=== PATIENT | female | born 1995 | race Caucasian/White ===

== ENCOUNTER → 2017-10-26 15:10 | Outpatient (CLI) | payer BC, SELFPAY ==
--- NOTE | 2017-10-26 15:13 | US_ITS ---
STUDY: THYROID ULTRASOUND REASON FOR EXAM: Female, 22 years old. Nodule TECHNIQUE: Ultrasound evaluation of the thyroid was performed with real-time and static cloud-scale imaging. COMPARISON: None. FINDINGS: RIGHT LOBE: The right lobe of the thyroid gland measures 3.9 x 1.4 x 1.2 cm. There is a homogeneous echotexture. There is a 2 mm colloid cyst. LEFT LOBE: The left lobe of the thyroid gland measures 4.2 x 1.4 x 1.2 cm. There is a homogeneous echotexture. There are no demonstrated solid, cystic or complex lesions. ISTHMUS: The isthmus measures 2 mm . The regional lymph nodes are normal. US/Thyroid IMPRESSION: Within normal limits. Electronically Signed: Chung Yost MD at 22:13 EDT , Service support ,
== END ==
PROVIDERS: Family Provider Family Medicine; PCP Family Medicine; Visit Provider Family Medicine
DX: E04.1 Nontoxic single thyroid nodule (principal)
CPT/HCPCS: 76536

== ENCOUNTER → 2018-01-10 14:11 | Outpatient (CLI) | payer BC, SELFPAY ==
[2018-01-10 16:04] LABS: Hemoglobin A1c 4.9 % (4.2-6.3)
[2018-01-10 16:09] LABS: hCG Titer Quant., Serum 44 mIU/mL (<9 non-preg)
[2018-01-10 22:06] LABS: Follicle Stimulating Hormone 3.9 mIU/mL; Free T3 3.6 pg/mL (2.18-3.98); Glucose 84 mg/dL (74-106); Luteinizing Hormone 2.4 mIU/mL; Prolactin 10.3 ng/mL; T4 Free Direct 0.87 ng/dL (0.76-1.46); Thyroid Stim Hormone (TSH) 0.67 uIU/mL (0.358-3.74)
== END ==
PROVIDERS: Visit Provider Obstetrics & Gynecology
DX: N92.5 Other specified irregular menstruation (principal)
CPT/HCPCS: 36415; 82947; 83001; 83002; 83036; 84146; 84439; 84443; 84481; 84702

== ENCOUNTER → 2018-01-12 15:49 | Outpatient (CLI) | payer BC, SELFPAY ==
[2018-01-12 18:08] LABS: hCG Titer Quant., Serum 51 mIU/mL (<9 non-preg)
== END ==
PROVIDERS: Visit Provider Obstetrics & Gynecology
DX: N91.2 Amenorrhea, unspecified (principal)
CPT/HCPCS: 36415; 84702

== ENCOUNTER → 2018-01-15 13:19 | Outpatient (CLI) | payer BC, SELFPAY ==
[2018-01-15 15:10] LABS: hCG Titer Quant., Serum 15 mIU/mL (<9 non-preg)
== END ==
PROVIDERS: Visit Provider Obstetrics & Gynecology
DX: N91.2 Amenorrhea, unspecified (principal)
CPT/HCPCS: 36415; 84702

== ENCOUNTER → 2018-10-17 | Outpatient (CLI) | payer BC, SELFPAY ==
[2018-10-25 12:37] LABS: HPV HC, High Risk Negative (Negative)
[2018-10-25 12:38] LABS: HPV Reflexed? YES, CHARGE PATIENT
== END | disposition home or self-care (01) ==
PROVIDERS: Family Provider Family Medicine; PCP Family Medicine; Visit Provider Obstetrics & Gynecology
DX: Z12.4 Encounter for screening for malignant neoplasm of cervix (principal)
CPT/HCPCS: 87624; 88175; G0145

== ENCOUNTER 2020-02-06 18:14 | Emergency (ER) | payer BC, SELFPAY ==
[2020-02-06 18:14] VITALS: BP 112/74; PULSE 72; RESP 14; TEMP 36.7; O2SAT 99; BMI 25.8
--- NOTE | 2020-02-06 19:35 | CT_ITS ---
STUDY: CT ABDOMEN AND PELVIS WITH CONTRAST REASON FOR EXAM: Female, 24 years old. Unexplained weight loss since OCTOBER. Recent diarrhea. RADIATION DOSAGE (If Supplied By Facility): CTDIvol = ( 10.31 ) mGy, DLP = ( 647.47 ) mGycm TECHNIQUE: Transaxial images were obtained from the dome of the diaphragm to the symphysis pubis with oral contrast. Oral and amp; IV Breeza and amp; 100mL Isovue-300 was administered. Sagittal and coronal images were reconstructed. Individualized dose optimization techniques were used for this CT. COMPARISON: None. FINDINGS: The visualized lung bases are unremarkable. The visualized portions of the heart are within normal limits. Normal liver. Normal gallbladder and extrahepatic biliary system. Normal spleen. Normal pancreas. Normal bilateral adrenal glands. Normal right kidney. Normal left kidney. Normal visualized stomach. Normal small intestine. Normal colon. The appendix is visualized and appears normal. Normal abdominal aorta. Normal inferior vena cava. Normal retroperitoneum. Normal urinary bladder. Normal uterus and left adnexa. There is a 1.8 x 1.2 x 1.8 cm cyst in the right ovary. No pelvic lymphadenopathy. No free air or free fluid is seen within the peritoneal cavity. Normal abdominal wall. Normal osseous structures. CT/Abdomen/Pelvis WITH Contrast IMPRESSION: Dominant follicle versus small cyst in the right ovary. The study is otherwise unremarkable. Electronically Signed: Jerome Navas DO at 21:25 EDT Tel [phone], Service support ,
[2020-02-06 19:48] LABS: Absolute Lymphocyte Count 2.75 X10^3/uL (0.83-4.51); Absolute Neutrophil Count 3.6 X10^3/uL (2.0-7.7); Basophil# 0.03 X10^3/uL; Basophil% 0.4 % (0-1); Eosinophils% 1.4 % (0-5); Hematocrit 39.7 % (37-47); Hemoglobin 12.7 g/dL (12.0-15.0); Lymphocyte # 2.75 X10^3/ul (4.0); Mean Corpuscular Hgb 28.4 pg (27.0-32.0); Mean Corpuscular Volume 88.8 fL (81-99); Mean Platelet Vol. 9.8 fl (6.2-12.0); Monocyte# 0.54 X10^3/uL; Monocyte% 7.6 % (0-10); NRBC Flagged by Analyzer 0 % (0-5); Neutrophil # 3.63 X10^3/uL (2.7-7.7); Neutrophil % 51.5 % (47-70); Platelet Count 287 K/mm3 (150-450); RBC Distribution Width CV 13.6 % (11.6-14.6); RBC Distribution Width SD 44.2 fl (35.1-43.9); Red Blood Count 4.47 M/mm3 (4.2-5.4); White Blood Count 7.1 K/mm3 (4.4-11.0)
[2020-02-06 19:56] LABS: Internal QC Validated? YES +Cl - CLEAR BKGD; Pregnancy, Serum, hCG Quali. NEGATIVE Negative
[2020-02-06 20:07] LABS: AST(SGOT) 6 U/L (15-37); Alanine Aminotransfer ALT/SGPT 12 U/L (13-56); Albumin, Serum 3.9 g/dL (3.2-5.0); Alkaline Phosphatase 86 U/L (45-117); Anion Gap 4 (5-15); BUN 8 mg/dL (7-18); BUN/Creat Ratio 13.1 RATIO (10-20); Bilirubin, Direct 0.13 mg/dL (0.00-0.30); Calcium,Total 8.8 mg/dL (8.5-10.1); Chloride 108 mmol/L (98-107); Creatinine, Serum 0.61 mg/dL (0.55-1.02); EST Glomerular Filtration Rate 130 mL/min (>60); Est Glom Filt Rate - Afr Amer 157 mL/min (>60); Estimated Creatinine Clearance 114.41 ml/min; Globulin 3.1 g/dL (2.2-4.2); Glucose 88 mg/dL (74-106); Potassium 3.4 mmol/L (3.5-5.1); Sodium Level 140 mmol/L (136-145)
[2020-02-06] MEDS: 0.9% Normal Saline 1,000 ML 150 ML IV (20:26)
[2020-02-06 20:35] LABS: Mucous, Urine 0 SEEN /hpf (<or=2+); Squamous Epithelial Cells - UA 0 SEEN /hpf (5-10); White Blood Cells 0 SEEN /hpf (0-5)
[2020-02-06 20:47] LABS: Color, Urine Yellow (Yellow); Glucose, Dipstick Normal (Normal); Ketone-Dipstick Negative (Negative); Leukocyte Esterase-Dipstick Negative /ul (Negative); Nitrite-Dipstick Negative (Negative); Occult Blood-Urine 50 /ul (Negative); Protein-Dipstick Negative (Negative); Specific Gravity, Urine 1.015 (1.002-1.030); Urine Bilirubin Dipstick Negative (Negative); Urine Clarity Clear (Clear); Urine Urobilinogen Normal (Normal); Urine pH 6.5 (5.0 - 8.0)
[2020-02-06 21:11] LABS: Bacteria RARE /hpf (None Seen); Red Blood Cells-Urine 0-5 SEEN /hpf (0-5)
[2020-02-06 21:32] VITALS: BP 94/69; PULSE 66; RESP 16; O2SAT 100
--- NOTE | 2020-02-06 21:51 | ED.DCSUM_ITS ---
History of Present Illness Chief Complaint: Nausea/Vomiting/Diarrhea Detail of Chief Complaint: Diarrhea and weight loss Informant: Patient Onset: Month(s) Narrative: Patient presents with diarrhea, nausea, and weight loss. She states symptoms hortencia cabrera started in October and she is lost 30 pounds since that time. She states anytime she eats or drinks anything it goes straight through her with diarrhea. She has not had fever or chills. She does not have significant abdominal pain. She was seen by her PCP and started on an antacid. When this did not help they advised her she should come to the emergency room for further testing. She darnell es being on recent antibiotics. - Past Medical History (1) Anxiety and depression Status: Chronic Past Medical History - Allergies and Home Meds Allergies/Adverse Reactions: Allergies azithromycin [From Zithromax] Allergy (Verified 02/06/20 18:20) JOHN VIJI'S SYNDROME venlafaxine Allergy (Verified 02/06/20 18:20) NEEDS FOLLOW-UP Primary Care Physician: Rachel Gale,Out of [Primary Care Provider] - Prior records reviewed: Yes Smoking Status: Current every day smoker Review of Systems General: Denies: Chills, Fever Eyes: Denies: Visual changes - bilaterally ENT: Denies: Bilateral ear pain Cardiovascular: Denies: Chest pain Respiratory: Denies: Dyspnea, Cough Gastrointestinal: Reports: Nausea, Diarrhea. Denies: Abdominal pain, Vomiting Genitourinary: Denies: Dysuria Musculoskeletal: Denies: Myalgias, Arthralgias, Extremity Pain Skin: Denies: Rash Neurological: Denies: Headache Hematologic: Denies: Easy bruising, Easy bleeding Allergy: Denies: Uticaria Physical Exam Vital Signs/Narrative: Vital Signs Temp Pulse Resp BP Pulse Ox 02/06/20 21:32 66 16 94/69 100 02/06/20 18:14 98.0 F 72 14 112/74 99 Inital Vital Signs reviewed: Yes General: Well nourished, Well developed Head: Normocephalic ENT: Moist mucous membranes Neck: Supple Cardiovascular: Regular rate, Regular rhythm Respiratory: No distress, CTA bilaterally Abdomen: Soft, Nontender, Normal bowel sounds Extremities: Nontender Skin: Normal color Neurological: Alert, Oriented x3 Psychological: Normal affect Diagnostic/Tx/Re-eval Impressions Abdomen/Pelvis CT 02/06/20 19:35 IMPRESSION: Dominant follicle versus small cyst in the right ovary. The study is otherwise unremarkable. Electronically Signed: Jerome Navas DO at 21:25 EDT Tel [phone], Service support , 02/06/20 19:35 Abdomen/Pelvis WITH Contrast [CT] Stat Laboratory Results 02/06/20 02/06/20 02/06/20 19:15 19:15 19:15 WBC 7.1 RBC 4.47 Hgb 12.7 Hct 39.7 MCV 88.8 MCH 28.4 MCHC 32.0 RDW Std Deviation 44.2 H RDW Coeff of Lizbet 13.6 Plt Count 287 MPV 9.8 Immature Gran % (Auto) 0.100 Neut % (Auto) 51.5 Lymph % (Auto) 39.0 [place] % (Auto) 7.6 Eos % (Auto) 1.4 Baso % (Auto) 0.4 Absolute Neuts (auto) 3.6 Absolute Lymphs (auto) 2.75 Nucleated RBC % 0 Sodium 140 Potassium 3.4 L Chloride 108 H Carbon Dioxide 28.0 Anion Gap 4 L BUN 8 Creatinine 0.61 Estim Creat Clear Calc 114.41 Est GFR (MDRD) Af Amer 157 Est GFR (MDRD) Non-Af 130 BUN/Creatinine Ratio 13.1 Glucose 88 Calcium 8.8 Total Bilirubin 0.30 Direct Bilirubin 0.13 AST 6 L ALT 12 L Alkaline Phosphatase 86 Total Protein 7.0 Albumin 3.9 Globulin 3.1 Serum , Qual NEGATIVE Urine Color Urine Clarity Urine pH Ur Specific Omar Urine Protein Urine Glucose (UA) Urine Ketones Urine Occult Blood Urine Nitrite Urine Bilirubin Urine Urobilinogen Ur Leukocyte Esterase Urine RBC Urine WBC Ur Squamous Epith Cells Urine Bacteria Urine Mucus 02/06/20 20:15 WBC RBC Hgb Hct MCV MCH MCHC RDW Std Deviation RDW Coeff of Lizbet Plt Count MPV Immature Gran % (Auto) Neut % (Auto) Lymph % (Auto) [place] % (Auto) Eos % (Auto) Baso % (Auto) Absolute Neuts (auto) Absolute Lymphs (auto) Nucleated RBC % Sodium Potassium Chloride Carbon Dioxide Anion Gap BUN Creatinine Estim Creat Clear Calc Est GFR (MDRD) Af Amer Est GFR (MDRD) Non-Af BUN/Creatinine Ratio Glucose Calcium Total Bilirubin Direct Bilirubin AST ALT Alkaline Phosphatase Total Protein Albumin Globulin Serum , Qual Urine Color Yellow Urine Clarity Clear Urine pH 6.5 Ur Specific Omar 1.015 Urine Protein Negative Urine Glucose (UA) Normal Urine Ketones Negative Urine Occult Blood 50 H Urine Nitrite Negative Urine Bilirubin Negative Urine Urobilinogen Normal Ur Leukocyte Esterase Negative Urine RBC 0-5 SEEN Urine WBC 0 SEEN Ur Squamous Epith Cells 0 SEEN Urine Bacteria RARE Urine Mucus 0 SEEN - Medical Decision Making Patient was given IV fluids here. On repeat evaluation she is resting comfortably. Test results are discussed with her. She has not had diarrhea while here but an order for stool studies will be sent with her. She will be given 3 days of potassium replacement at home. She is to follow with her doctor for further testing and evaluation. ED Disposition - Plan for ED Patient: Disposition: Home or Assisted Living Diagnosis: Diarrhea Instructions: ED Vomiting and Diarrhea Nonspecific Adult Prescriptions: Potassium Chloride [K-Dur] 20 meq PO BID #6 tab Transmission Status: Received by [id number] Referrals: [facility] Doctor,Out of [Primary Care Provider] -
== END 2020-02-06 22:05 | disposition home or self-care (01) ==
PROVIDERS: Emergency Provider Emergency Medicine; PCP Physician Assistant
DX: R19.7 Diarrhea, unspecified (principal); R11.2 Nausea with vomiting, unspecified; F32.9 Major depressive disorder, single episode, unspecified; F41.9 Anxiety disorder, unspecified; F17.200 Nicotine dependence, unspecified, uncomplicated; Z79.899 Other long term (current) drug therapy
CPT/HCPCS: 74177; 80048; 80076; 81001; 84703; 85025; 96360; 96361; 99283; J7030; Q9967; A4216

== ENCOUNTER → 2020-02-07 | Outpatient (CLI) | payer BC, SELFPAY ==
[2020-02-06 18:14] VITALS: BMI 25.8
== END | disposition home or self-care (01) ==
PROVIDERS: PCP Physician Assistant; Referring Provider Emergency Medicine; Visit Provider Emergency Medicine
DX: R19.7 Diarrhea, unspecified (principal)
CPT/HCPCS: 87493; 87506

== ENCOUNTER → 2020-04-29 11:38 | Outpatient (CLI) | payer BC, SELFPAY ==
--- NOTE | 2020-04-29 11:55 | RAD_ITS ---
STUDY: HYSTEROSALPINGOGRAM. REASON FOR EXAM: Female, 24 years old. Infertility FLUOROSCOPY TIME (if supplied): ( 12 seconds ) minutes/seconds. 3 images were obtained. TECHNIQUE: A hysterosalpingogram was performed by the health assessment and treatment teacher. Imaging was obtained. COMPARISON: None. FINDINGS: The fallopian tubes are widely patent with the spur bilaterally. The uterus is unremarkable. RAD/Salpingogram IMPRESSION: Normal hysterosalpingogram. Electronically Signed: Mauro Garza, at 12:23 EDT , Service support ,
--- NOTE | 2020-04-29 12:54 | PCM.OPRPT ---
Report of Operation Date of Procedure: 04/29/20 Pre-Operative Diagnosis: infertility Post-Operative Diagnosis: same Surgery/Procedure Performed:: Hysterosalpingogram Description of Surgical Findings:: normal cervix and vagina manager wealth management: None Type of Anesthesia:: None Specimen's removed: none Drains: none Estimated Blood Loss (mL): none Fluids Replaced: none Description of Procedure: The patient was placed on the radiology table in the dorsal lithotomy position. A speculum was placed in the vagina and the cervix cleaned with betadine. The HSG catheter was placed and the balloon inflated without difficulty. The radioopaque dye was injected slowly. The radiologist obtained the images. The balloon was inflated to allow fill of the uterine cavity. When Dr. Garza deemed the procedure completed the instruments were removed and the vaginal sweep was completed by me. Start time: 1159 am End time :1202 pm Grafts/Implants Used: none - Complications none
== END ==
PROVIDERS: PCP Physician Assistant; Referring Provider Obstetrics & Gynecology; Visit Provider Obstetrics & Gynecology
DX: N97.9 Female infertility, unspecified (principal)
CPT/HCPCS: 58340; 74740; Q9967

== ENCOUNTER 2021-08-26 07:20 | Day surgery (SDC) | payer OTHER, BC, SELFPAY ==
--- NOTE | 2021-08-17 16:57 | PCM.HP.BLA ---
History and Physical Date of Admission: 08/26/21 HPI: The patient is a 25 year old female presenting for pre-operative visit. She is scheduled for Hysteroscopy D&C, possible polyp resection, for AUB, endometrial polyp on 08/19/21. Procedure discussed along with risks, benefits and complications. Other alternatives discussed for management. Consent form signed? Yes. ? ? PAST MEDICAL HISTORY PAST MEDICAL HISTORY Diagnosis Date ? Blurring of vision 09/13/2011 ? Cellulitis and abscess of toe, unspecified 03/17/2011 ? Dizziness 05/10/2011 ? History of depression 11/14/2018 ? Hypoglycemia ? ? Menarche 2009 ? Age 13 ? ? PAST SURGICAL HISTORY PAST SURGICAL HISTORY Procedure Laterality Date ? ADENOIDECTOMY UNDER AGE 14 ? ? ? EXCISION BENIGN LESIONS,TRUNK, ? ? ? Lipoma- groin ? REMOVAL OF TONSILS,<14 Y/O ? CURRENT MEDICATIONS Current Outpatient Medications Medication Sig Dispense Refill ? ALPRAZolam (XANAX) 0.5 mg tablet Take 0.5 mg by mouth three times daily as needed. ? ? ? letrozole (FEMARA) 2.5 mg tablet Take 2 tablets by mouth once daily. (Patient not taking: Reported on 07/28/2021 ) 10 tablet 2 ? PNV no.95/ferrous fum/folic ac ( ORAL) Take by mouth. ? ? ? No current facility-administered medications for this visit. ? ? ALLERGIES: Effexor [Venlafaxine] and Zithromax [Azithromycin] ? PERSONAL HISTORY: SOCIAL HISTORY Social History ? Tobacco Use ? Smoking status: Never Smoker ? Smokeless tobacco: Never Used Substance Use Topics ? Alcohol use: No ? Drug use: No ? FAMILY HISTORY: FAMILY HISTORY FAMILY HISTORY Problem Relation Age of Onset ? Diabetes Mother ? ? type 1 ? Kidney Disease Mother ? ? Diabetes Maternal Grandmother ? ? type 1 ? Alcohol/Drug Father ? ? other (Bipolar) Father ? ? Psychiatry Brother ? ? No Known Problems Brother ? ? No Known Problems Brother ? ? Skin Cancer Maternal Grandfather ? ? No Known Problems Paternal Grandmother ? ? Alzheimer's Disease Paternal Grandfather ? ? Diabetes Other ? ? Maternal Side ? ? REVIEW OF SYMPTOMS: GENERAL: denies fevers or chills ENDOCRINOLOGY: has not been on steroids Cardiology : denies palpitations or chest pain Respiratory: denies SOB or cough Hematology: denies history of prolonged bleeding or easy bruising or VTE Allergy: Denies history of personal or family history of allergy to anesthesia ? PHYSICAL EXAMINATION: ? VITALS: Last menstrual period 07/15/2021. ? GENERAL: The patient is well nourished, well hydrated in no acute distress. , The patient is oriented to time, place, and person. NECK: Supple. No lynphadenopathy, normal thyroid, no thyromegaly. LUNGS: Clear to auscultation bilaterally. no wheezes, rhonchi or rales HEART: Regular rate and rhythm, Normal heart sounds and No murmurs or gallops ? IMPRESSION: AUB, endometrial polyp, desires ? PLAN: The risks/benefits/alternatives and personal involved for the planned Hysteroscopy w/ D&C and polyp resection were reviewed with the patient. Her questions were answered to her satisfaction and she desires to proceed. Consent was signed. I reviewed with her postop instructions and expectations. ? ? I have reviewed and updated past medical and surgical history, medications and allergies Assessment & Plan Assessment/Plan (1) Abnormal uterine bleeding (AUB): (2) Endometrial polyp:
[2021-08-26] VITALS (8 sets, daily range): BP systolic 92–116; BP diastolic 62–76; PULSE 60–95; RESP 16–18; TEMP 36.2–37.2; O2SAT 95–100; BMI 27.0
--- NOTE | 2021-08-26 | EMB_PTH ---
PATIENT: JOSE EDWARD LOC: [facility] [place] U#:[id number] AGE/SX: 25 ROOM: RE08/26/[address]: Dr. Anna Del Real MD : [id number] BED: DIS: 08/26/2021 SPEC #: [id number] RECD: 08/26/21 12:45 STATUS: FRANCA REKong #: [id number] STEPHEN: 08/26/21 00:[address]: Anna Del Real DEPT: SURGICAL PATHOLOGY RECD BY: Abraham Franco ENTERED: 08/26/21 12:45 SP TYPE: ENDOM BX/C ALBER DR: CHERYL Mendoza Tissues: Endometrium, NOS Procedures: Surgery Specimen Level IV HEADER OPERATION: Hysteroscopy, dilation and curettage PRE-OP DIAGNOSIS: Abnormal uterine bleeding, endometrial polyp TISSUE SUBMITTED: Endometrial curettings MICROSCOPIC DIAGNOSIS Endometrium, curettings: Proliferative endometrium with focal glandular breakdown. Rare strips of benign superficial endocervix and squamous mucosa. AM:tereza 08/27/2021 MICROSCOPIC DESCRIPTION Slides are reviewed. GROSS DESCRIPTION Received in fixative is one container labeled with the patient's name and designated endometrial curettings. The specimen consists of multiple irregular fragments of red-pa soft tissue that in aggregate measure 2 x 2 x <0.1 cm. The specimen is totally submitted in one cassette. / AM:tereza 08/26/2021 TC:5 CPT: 69599
[2021-08-26] MEDS: Lactated Ringers 1,000 ML 15 ML IV (07:55)
[2021-08-26 07:57] LABS: Internal QC Validated? YES +Cl - CLEAR BKGD; Pregnancy, Urine Negative Negative
[2021-08-26] MEDS: Acetaminophen 500 MG Tablet 1000 MG PO (08:02)
[2021-08-26] MEDS: Ketorolac 30 MG/ML Syringe IV (08:02)
--- NOTE | 2021-08-26 08:50 | PCM.DC ---
Discharge Instructions Diet Discharge Diet: No restrictions Activity May resume sexual activity in: 1 week Lifting Restrictions: none Dressing / Incision Call your doctor if your incision/area has: Sudden Increased Bleeding and Foul Smelling Discharge Call your doctor if you observe: Fever of 101 or Higher and Using more than 1 pad per hour (for 2 hrs in a row) Follow Up Care Please Follow Up With: Anna Del Real MD When: Call [phone] with any concerns. You do not need a postop appointment unless you have concerns. Test Results: Test results from this visit will be discussed in further detail at your follow-up appointment, if applicable. Discharge Plan Admission Primary Reason for Your Visit: D&C Attending Provider: Anna Del Real Primary Care Provider: Emma Tello Discharge Orders/Prescriptions Prescriptions: No Action alprazolam [Xanax] 0.5 mg Tablet 0.5 mg PO BID PRN (Reason: Anxiety) RF: 0 Prenatabs FA 29-1 mg Tablet 1 tab PO DAILY RF: 0 Hair, Skin and Nails Advanced 3.3 mg iron-25 mcg Tablet 1 tab PO DAILY RF: 0 Referrals / Follow Up: Emma Tello PA [Primary Care Provider] - Disposition Disposition (needs filled in before D/C Order can be placed): Home, Self Care
[2021-08-26] MEDS: Lidocaine 1% (20 ml mdv) 20 ML Vial (09:02)
--- NOTE | 2021-08-26 09:08 | OP.PCM_ITS ---
Problems Associated Problem List Diagnoses (1) Abnormal uterine bleeding (AUB): (2) Endometrial polyp: Report of Operation Date of Procedure: 08/26/21 Pre-Operative Diagnosis: Abnormal uterine bleeding, endometrial polyp Post-Operative Diagnosis: Same Surgery/Procedure Performed:: Hysteroscopy D&C Description of Surgical Findings:: Lush endometrium. Polypoid appearing lesion on the right side. Both tubal ostia were identified. Normal cervix and vagina Surgeon: Anna Del Real industrial service technician: None Type of Anesthesia: MAC/Supplemental/Local Anesthesiologist: Vinh Person Special Medications: none Specimen's removed: Endometrial curettings Drains: None Estimated Blood Loss (mL): 10 Fluids Replaced: 400 Description of Procedure: The patient was taken to the OR where she was prepped and draped in dorsal lithotomy position. The weighted speculum was placed in the vagina and the anterior lip of the cervix was grasped with a single-tooth tenaculum. A paracervical block was administered with [1% lidocaine with 1- 100,000 epinephrine solution]. The cervix was dilated serially with Hegar dilators. The [5mm] hysteroscope was placed into the uterine cavity and the above findings were noted. Bilateral tubal ostia [were] identified. The hysteroscope was removed. A gentle sharp curettage was done of the uterine cavity. The hysteroscope was returned and there were no other lesions identified. The instruments were removed from the vagina. The specimen was handed off and sent to pathology. All sponge and needle counts were correct. Vaginal sweep was performed by me. The patient was awakened and taken to the recovery room in stable condition. Hysteroscopic ins: 200cc normal saline Hysteroscopic outs:100cc Grafts/Implants Used: none Procedure Start Time: 08:55 Procedure Stop Time: 09:05 Complications None Admit VTE Documentation VTE Present on Admission: No VTE Mechan Device Prophylaxis: SCD's VTE Pharm Prophylaxis ordered?: No Reason prophylaxis not ordered:: Procedure Not Indicated
[2021-08-26] MEDS: Lactated Ringers 1,000 ML 75 ML IV (09:23)
== END 2021-08-26 23:59 | disposition home or self-care (01) ==
LOC: SDC 07:26 → AC 07:35
PROVIDERS: PCP Physician Assistant; Visit Provider Obstetrics & Gynecology
PROC: 0UB98ZZ Excision of Uterus, Via Natural or Artificial Opening Endoscopic (ICD-10-PCS; CPT 58558; principal; 2021-08-26 08:35)
DX: N84.0 Polyp of corpus uteri (principal); F32.A Depression, unspecified; F41.9 Anxiety disorder, unspecified; Z79.899 Other long term (current) drug therapy
CPT/HCPCS: 58558; 00952; 81025; 88305; J7120; J2405

== ENCOUNTER 2022-04-08 17:48 | Emergency (ER) | payer OTHER, BC, SELFPAY ==
[2022-04-08 17:49] VITALS: BP 128/95; PULSE 105; RESP 16; TEMP 36.3; O2SAT 100; BMI 30.7
[2022-04-08 17:52] VITALS: BP 128/95; PULSE 105; RESP 16; TEMP 36.3; O2SAT 100
--- NOTE | 2022-04-08 19:16 | ED.VIS.FEGU ---
HPI HPI - Female History of Present Illness Chief Complaint: Vag Bleeding Detail of Chief Complaint: Passing clots. Informant: patient Pain Pain: Positive for Pelvic Pain Onset: Today Timing: Intermittent Quality: Positive for Cramping Current Severity: Mild Maximum Severity: Mild Bleeding Issue: Positive for Vaginal bleeding and Passing clots; Negative for Passing tissue Onset: Days Context: Gradual Onset Timing: Intermittent Current Severity: Heavy Associated Symptoms Associated Symptoms: Negative for Dysuria, Frequency or Urgency Test: Negative Sexually: Positive for Active Control: No control P: 0 Ab: 1 Narrative Narrative: 26-year-old female G1, P0 Ab1 with having a miscarriage. States she started her last menstrual period Monday 5 days ago. Said it started out normal today she had some cramping and much heavier bleeding with clots. States she is having some cramping. No dysuria. No fever. Took a home test was negative. She has had issues with infertility before. Prior similar symptoms: Yes Recent Illness/Hospitalization: No PFSH PFSH Medical History Abnormal uterine bleeding (AUB) Alcohol use Anxiety Endometrial polyp Heartburn Vapes nicotine containing substance Wears contact lenses Home Medications alprazolam 0.5 mg tablet (Xanax) 0.5 mg PO BID PRN Anxiety 08/20/21 [History Last Taken Unknown] multivitamin,min-ferrous fumarate 3.3 mg-folic 25 mcg-herb tablet (Hair, Skin and Nails Advanced) 1 tab PO DAILY 08/20/21 [History Last Taken Unknown] vits,calcium no.78-iron fumarate-folic acid 29 mg-1 mg tablet (Prenatabs FA) 1 tab PO DAILY 08/20/21 [History Last Taken Unknown] Allergy/AdvReac Type Severity Reaction Status Date / Time azithromycin [From Zithromax] Allergy JOHN Verified 08/20/21 11:32 VIJI'S SYNDROME venlafaxine Allergy NEEDS Verified 08/20/21 11:32 FOLLOW-UP Surgical History History of tonsillectomy and adenoidectomy Hx of lumpectomy Social History Smoking Status: Current every day smoker tobacco type: e-cigarettes ROS ROS ED ROS Narrative Vaginal bleeding. Cramping. Review of Systems ROS Unobtainable: Denies due to encephalopathy Constitutional Constitutional ED: Denies chills or fever(s) Eyes Eyes: Denies blurry vision ENT ENT ED: Denies ear pain Cardiovascular Cardiovascular: Denies chest pain Respiratory/Chest Respiratory/Chest: Denies cough or dyspnea Gastrointestinal Gastrointestinal: Denies abdominal pain, constipation, diarrhea, melena, nausea or vomiting Genitourinary Genitourinary ED: Denies dysuria or hematuria Musculoskeletal Musculoskeletal: Denies arthralgias Integumentary Denies abscess Neurologic Neurologic: Denies headache(s) Psychiatric Psychiatric: Denies anxiety Endocrine Endocrinology: Denies heat intolerance Hematologic/Lymphatic Hematologic/Lymphatic: Denies easy bleeding, easy bruising or lymphadenopathy Allergic/Immunologic Allergic/Immunologic ED: Denies mouth swelling or tongue swelling EXAM Physical Exam Narrative Exam Narrative: 26-year-old female no acute distress. Vital signs stable afebrile. Blood pressure 128/95. H EENT exam normal. Moist Riis membranes. Neck nontender no lymphadenopathy. Lungs clear to auscultation bilaterally. Heart regular rhythm rate about 105 no murmur. Abdomen soft, nontender, nondistended normal bowel sounds no peritoneal signs. Moving all 4 extremities. Calves nontender no edema or cords. Back nontender. Neurologic exam normal. Skin normal. No bruising. Const Vital Signs: 04/08/22 17:49 04/08/22 17:52 04/08/22 20:02 Temperature 97.4 F L 97.4 F L Temperature Source Temporal Temporal Pulse Rate 105 H 105 H Respiratory Rate 16 16 18 Blood Pressure 128/95 H 128/95 H Blood Pressure Mean 106 106 Pulse Ox 100 100 Oxygen Delivery Method Room Air Room Air Room Air 04/08/22 22:05 Temperature Temperature Source Pulse Rate Respiratory Rate 14 Blood Pressure Blood Pressure Mean Pulse Ox Oxygen Delivery Method Room Air Positive well nourished, well developed and obese; Negative for cachectic, contractures or unkempt General Appearance ED: well developed and NAD; Negative for unkempt, cachectic, contractures, odor of alcohol detected or pallor Nutritional Appearance: obese; Negative for cachectic HEENT Reports moist mucous membranes Negative for trauma or tenderness Eyes PERRL and EOMs intact bilaterally General Eye ED: Negative for pale conjunctiva or scleral icterus Neck no lymphadenopathy, supple and no JVD General: Negative for other Thyroid: Negative for tender Lymph Lymphatic: Negative for other Chest Wall inspection of chest normal and palpation of chest normal Chest: Negative for other Resp normal respiratory effort and clear to auscultation bilaterally Effort and Inspection: Negative for pain with movement Auscultation: Negative for rales, rhonchi, wheezes or diminished lung sounds Cardio regular rate, regular rhythm, S1 normal heart sound, no murmurs and no JVD Rate: Negative for bradycardia or tachycardic Rhythm: Negative for abnormal rhythm GI normal to inspection, nondistended, normoactive bowel sounds, soft to palpation, non-tender, non-distended and no masses Auscultation: normoactive bowel sounds Palpation: Negative for tender, guarding or rigid Back/Spine no CVA tenderness General Back: Negative for CVA tenderness Cervical Spine: Negative for cervical spine tenderness Thoracic Spine / Upper Back: Negative for thoracic spinal tenderness Lumbar Spine / Lower Back: Negative for lumbar spinal tenderness Sacrum: Negative for other Extremity normal to inspection and full ROM General Extremety ED: Negative for edema or other findings General Extremity: Negative for edema or other findings Neuro oriented x3 Sensorium / Orientation: alert, oriented to person, oriented to place and oriented to time; Negative for confused, lethargic or stuporous Motor Exam: strength 5/5 throughout Psych mental status grossly normal Appearance: Negative for unkempt Attitude: No agitated Speech: No other Mood & Affect: Negative for depressed, anxious or tearful Skin no rashes or lesions noted and no wounds General Skin Exam: Negative for jaundice or pallor Rashes: No rashes noted Trauma: Negative for other MDM MDM MDM Narrative Medical decision making narrative: 26-year-old with heavy vaginal bleeding. Does not believe she is . test will be obtained. CBC. Treated with IV fluids. Repeat exam patient doing well at 10:20 PM. Pelvic exam done with female nurse present in the room. Small amount of blood in vaginal vault. Dark red. No clots. No discharge. On bimanual exam no pain. No significant tenderness. Uterus did not feel enlarged. Patient be discharged home. Fluids. Tylenol Motrin for pain. Follow-up with her CURATOR OF EDUCATION. Lab Data Attestation: I reviewed the patient's lab results. Lab results narrative: CBC normal white count at 9. H&H of 13.1 and 40. Platelets 300. test negative. Labs: Laboratory Results - last 24 hr 04/08/22 04/08/22 19:32 19:32 WBC 9.0 RBC 4.52 Hgb 13.1 Hct 40.2 MCV 88.9 MCH 29.0 MCHC 32.6 RDW Std Deviation 41.5 RDW Coeff of Lizbet 12.7 Plt Count 300 MPV 9.2 Immature Gran % (Auto) 0.200 Neut % (Auto) 52.8 Lymph % (Auto) 38.4 [place] % (Auto) 6.1 Eos % (Auto) 2.2 Baso % (Auto) 0.3 Absolute Neuts (auto) 4.8 Absolute Lymphs (auto) 3.46 Nucleated RBC % 0 Serum , Qual NEGATIVE Discharge Plan Triage Chief Complaint: Vag Bleeding ED Provider: Soren Babcock Dx/Rx/DC Orders Clinical Impression: Abnormal vaginal bleeding Instructions: ED Dysfunctional Uterine Bleeding Prescriptions: No Action alprazolam [Xanax] 0.5 mg Tablet 0.5 mg PO BID PRN (Reason: Anxiety) Prenatabs FA 29-1 mg Tablet 1 tab PO DAILY Hair, Skin and Nails Advanced 3.3 mg iron-25 mcg Tablet 1 tab PO DAILY Primary Care Provider: Anna Zepeda Referrals: Anna Zepeda PA [Primary Care Provider] - Activity Restrictions/Additional Instructions: Plenty of fluids and rest to replace your blood loss. Motrin and Tylenol for pain and cramping. Follow-up with your CURATOR OF EDUCATION to ensure you are improving. Your test was negative. Your blood counts were normal. Disposition Disposition: Home, Self Care
[2022-04-08] MEDS: 0.9% Normal Saline 1,000 ML 1000 ML IV (19:27)
[2022-04-08 19:43] LABS: Absolute Lymphocyte Count 3.46 X10^3/uL (0.83-4.51); Absolute Neutrophil Count 4.8 X10^3/uL (2.0-7.7); Basophil# 0.03 X10^3/uL; Basophil% 0.3 % (0-1); Eosinophils% 2.2 % (0-5); Hematocrit 40.2 % (37-47); Hemoglobin 13.1 g/dL (12.0-15.0); Lymphocyte # 3.46 X10^3/ul (0.83-4.51); Lymphocyte % 38.4 % (19-41); Mean Corp Hgb Conc 32.6 g/dL (32-36); Mean Corpuscular Volume 88.9 fL (81-99); Mean Platelet Vol. 9.2 fl (6.2-12.0); Monocyte# 0.55 X10^3/uL; Monocyte% 6.1 % (0-10); NRBC Flagged by Analyzer 0 % (0-5); Neutrophil # 4.76 X10^3/uL (2.7-7.7); Neutrophil % 52.8 % (47-70); Platelet Count 300 K/mm3 (150-450); RBC Distribution Width CV 12.7 % (11.6-14.6); RBC Distribution Width SD 41.5 fl (35.1-43.9); Red Blood Count 4.52 M/mm3 (4.2-5.4)
[2022-04-08 19:52] LABS: Internal QC Validated? YES +Cl - CLEAR BKGD; Pregnancy, Serum, hCG Quali. NEGATIVE Negative
[2022-04-08 20:02] VITALS: RESP 18
[2022-04-08 22:05] VITALS: RESP 14
== END 2022-04-08 22:32 | disposition home or self-care (01) ==
PROVIDERS: Emergency Provider Emergency Medicine; Visit Provider Emergency Medicine
DX: N93.9 Abnormal uterine and vaginal bleeding, unspecified (principal); F17.290 Nicotine dependence, other tobacco product, uncomplicated; E66.9 Obesity, unspecified
CPT/HCPCS: 84703; 85025; 96360; 99284; J7030; A4216

== ENCOUNTER → 2022-10-14 | Outpatient (CLI) | payer OTHER, BC, SELFPAY ==
[2022-10-21 21:59] LABS: HPV Reflexed? NOT INDICATED
== END | disposition home or self-care (01) ==
PROVIDERS: Referring Provider Obstetrics & Gynecology; Visit Provider Obstetrics & Gynecology
DX: Z12.4 Encounter for screening for malignant neoplasm of cervix (principal)
CPT/HCPCS: 88175; G0145

== ENCOUNTER → 2022-10-19 | Outpatient (CLI) | payer OTHER, BC, SELFPAY ==
--- NOTE | 2022-10-19 16:40 | US_ITS ---
STUDY: THYROID ULTRASOUND REASON FOR EXAM: Female, 27 years old. Thyromegaly TECHNIQUE: Ultrasound evaluation of the thyroid was performed with real-time and static cloud-scale imaging. COMPARISON: October 20 [id number] FINDINGS: RIGHT LOBE: The right lobe of the thyroid gland measures 4.4 x 1.6 x 1.3 cm. There is a homogeneous echotexture. There are no demonstrated solid, cystic or complex lesions. LEFT LOBE: The left lobe of the thyroid gland measures 4.4 x 1.4 x 1.1 cm. There is a homogeneous echotexture. There are no demonstrated solid, cystic or complex lesions. ISTHMUS: The isthmus measures 2 mm . The regional lymph nodes are normal. There has been slight interval increase in size of the thyroid since prior study. US/Thyroid IMPRESSION: Borderline thyromegaly without evidence for focal nodules. Electronically Signed: Zbigniew Mcgarry MD at 21:29 EDT ,
== END | disposition home or self-care (01) ==
LOC: US 16:39
PROVIDERS: Referring Provider Obstetrics & Gynecology; Visit Provider Obstetrics & Gynecology
DX: E01.0 Iodine-deficiency related diffuse (endemic) goiter (principal)
CPT/HCPCS: 76536

== ENCOUNTER 2022-12-02 08:45 | Day surgery (SDC) | payer OTHER, BC, SELFPAY ==
[2022-12-02] VITALS (7 sets, daily range): BP systolic 97–122; BP diastolic 44–83; PULSE 74–97; RESP 12–18; TEMP 36.5–37.4; O2SAT 97–100; BMI 28.1
[2022-12-02] MEDS: Lactated Ringers 1,000 ML 15 ML IV ×2 (09:23→12:01)
[2022-12-02 09:39] LABS: Hematocrit 40.1 % (37-47); Hemoglobin 13.6 g/dL (12.0-15.0); Mean Corp Hgb Conc 33.9 g/dL (32-36); Mean Corpuscular Hgb 29.4 pg (27.0-32.0); Mean Corpuscular Volume 86.6 fL (81-99); Mean Platelet Vol. 9.5 fl (6.2-12.0); Platelet Count 259 K/mm3 (150-450); RBC Distribution Width CV 13.3 % (11.6-14.6); RBC Distribution Width SD 41.8 fl (35.1-43.9); Red Blood Count 4.63 M/mm3 (4.2-5.4); White Blood Count 4.8 K/mm3 (4.4-11.0)
[2022-12-02 09:41] LABS: Internal QC Validated? YES +Cl - CLEAR BKGD; Pregnancy, Urine Negative Negative
[2022-12-02 10:09] LABS: T4 Free Direct 1.05 ng/dL (0.76-1.46); Thyroid Stim Hormone (TSH) 0.95 uIU/mL (0.358-3.74)
--- NOTE | 2022-12-02 10:37 | HP.PCM_ITS ---
History and Physical Date of Admission: 12/02/22 Intake Vital Signs ? 11/09/2310:22 11/09/2310:22 Height 5 ft 2 in 5 ft 2 in Weight: 156 lb 6 oz ? BMI 28.5 ? BP 116/76 ? 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 Required: No Is patient in pain?: No Allergies azithromycin [From Zithromax] Allergy (Verified 11/09/22 11:22) JOHN VIJI'S SYNDROMEvenlafaxine Allergy (Verified 11/09/22 11:22) Other Medications multivitamin,min-ferrous fumarate 3.3 mg-folic 25 mcg-herb tablet (Hair, Skin and Nails Advanced) 1 tab PO DAILY 08/20/21 [History Confirmed 11/09/22] bupropion HCl 150 mg tablet,12 hr sustained-release (Wellbutrin SR) 150 mg PO DAILY 10/14/22 [History Confirmed 11/09/22] omeprazole 20 mg capsule,delayed release 20 mg PO DAILY 10/14/22 [History Confirmed 11/09/22] terbinafine HCl 1 % topical cream 1 applic topical BID 11/09/22 [History Confirmed 11/09/22] Post menopausal: No [facility] : No [facility] Medical History? Abnormal uterine bleeding (AUB) Alcohol use Anxiety Endometrial polyp Heartburn Vapes nicotine containing substance Wears contact lenses Surgical History? History of tonsillectomy and adenoidectomy Hx of lumpectomy S/P D&C (status post dilation and curettage) Family History? Mother DiabetesUncle DiabetesGrandmother Diabetes Social History? number of children:? 0 current occupational status:? employed current occupation:? [employer] Smoking Status:? Current every day smoker Electronic Cigarette Use:? with nicotine alcohol intake:? never substance use type:? does not use seatbelt use:? always do you feel safe at home:? Yes additional [facility] history:[facility] Details: JOSE EDWARD is a 27 year old who presents for annual exam. has been trying to get x 6 years. got once and had a miscarriage. the [facility] seen [facility] for 2 rounds of iui without success. was seeing Dr. Del Real at [facility] and had a hysteroscopy D&C with removal of a polyp like structure that ended up being benign tissue and not a polyp. pt was upset because Dr. Del Real got called away right after her surgery with her and did not have a chance to explain to her the findings. She has had some borderline abnormal thyroid tests. it does not look like she has ever had a prolactin level checked. 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 his semen analysis in the past was normal as was her hsg. She does have some pretty painful midcycle cramping that requires medication and heating pad. She is currently scheduled for a diagnostic laparoscopy, possible fulguration of endometriosis and chromopertubation of fallopian tubes. History D ? ? ? 0 ? Elective abortions ? Hx Para ? Spontaneous abortions ? Hx # Term Pregnancies ? Ectopic pregnancies ? Hx # Pregnancies ? Multiple births ? # of living children ? ROS Const ROS Unobtainable: All systems reviewed & are unremarkable except as noted in H Resp Resp: Reports system reviewed and no additional complaints, except as documented; Denies cough GI GI: Reports as per [facility] Psych Psych: Reports system reviewed and no additional complaints, except as documented Exam Const General: cooperative, healthy appearing, comfortable and no acute distress Resp Effort & Inspection: normal respiratory effort Skin General: no rashes or lesions noted Psych Appearance: grossly normal Speech and Movement: speech and movement normal Coding Level of Care Code Off vis,est,level 4 Diagnoses Abnormal uterine bleeding? N93.9 Infertility? Assessment and Plan Assessment and Plan (1) Abnormal uterine bleeding: ?Status:?Acute (2) Infertility: ?Status:?Acute Plan After discussing the patient's diagnosis and treatment plan options, patient wishes to proceed with surgical management.? I have discussed with the patient the risks, benefits, and alternatives of the procedure which include but are not limited to risks of anesthesia, bleeding, infection, possible damage to bowel, bladder, or surrounding vasculature which could lead to additional surgery to evaluate any complications.? Patient agrees to procedure and wishes to proceed.? ACOG/uptodate references given for additional information regarding procedure.?
--- NOTE | 2022-12-02 10:38 | DCINST_ITS ---
Discharge Instructions Diet Discharge Diet: No restrictions Activity Discharge Activity: Return to Normal Activity, May Not Drive (for two weeks or while taking narcotic pain medications.), May Shower and May Take a Tub Bath (in 7 days) May resume sexual activity in: 1 week Weight Bearing Status: Full weight bearing Dressing / Incision Call your doctor if you observe: Using more than 1 pad per hour, Shortness of breath, Chest pain and Uncontrolled pain Suture Line Care: Avoid Pulling/Pushing and Avoid Pinching/Bending Remove Dressing in: 1 week (if present) Cleanse incision/area with: Soap & Water and Keep Dressing Clean & Dry Follow Up Care Please Follow Up With: Julianna Newman DO When: Call to make an appointment with your doctor for a follow up incision check in 1-2 weeks. Test Results: Test results from this visit will be discussed in further detail at your follow- up appointment, if applicable. Discharge Plan Admission Primary Reason for Your Visit: laparoscopy Attending Provider: Julianna Newman Primary Care Provider: Anna Zepeda Discharge Orders/Prescriptions Prescriptions: New ibuprofen 800 mg tablet 800 mg PO Q8H PRN (Reason: pain) Qty: 20 0RF hydrocodone-acetaminophen 5-325 mg tablet 1 tab PO Q4H PRN (Reason: pain) 3 Days Qty: 10 0RF Continued bupropion HCl [Wellbutrin SR] 150 mg tablet sustained-release 12 hr 150 mg PO DAILY omeprazole 20 mg capsule,delayed release(DR/EC) 20 mg PO DAILY terbinafine HCl 1 % cream 1 applic topical DAILY Referrals / Follow Up: Anna Zepeda PA [Primary Care Provider] - Disposition Disposition (needs filled in before D/C Order can be placed): Home, Self Care
[2022-12-02] MEDS: Bupivacaine 0.25% 30 ML Vial (11:22)
--- NOTE | 2022-12-02 12:28 | OP.PCM_ITS ---
Problems Associated Problem List Diagnoses (1) Abnormal uterine bleeding: (2) Infertility: Report of Operation Date of Procedure: 12/02/22 Pre-Operative Diagnosis: infertility Post-Operative Diagnosis: infertility Surgery/Procedure Performed:: Diagnostic laparoscopy, chromopertubation of fallopian tubes Description of Surgical Findings:: patent fallopian tubes, small posterior pedunculated uterine fibroid, normal ovaries, no signs of endometriosis, scaring or defects Surgeon: Julianna Newman continuous drier helper: Krysta White Type of Anesthesia: General Anesthesiologist: Anish Grimm Specimen's removed: none Estimated Blood Loss (mL): 10cc Description of Procedure: Patient was taken in the operating room and was placed under general anesthesia was prepped and draped in normal sterile fashion in the dorsal lithotomy position. Bladder was drained of clear urine and SCDs were on preoperatively. A single toothed tenaculum was placed on the anterior lip the cervix and a uterine manipulator was inserted in the uterus to elevate the uterus and insert the methylene blue Attention was then paid to the abdominal portion of the procedure and the umbilicus was elevated with towel clamps and injected with Marcaine and after a 5 mm incision was made and a 5 mm laparoscope was inserted into the abdomen under direct visualization. The Abdomen was insufflated with CO2 gas and the patient was placed in trundelenburg position. A left lower quadrant 5 mm port and a 5 mm port suprapubically were placed under direct visualization. A suprapubic mini grasper was inserted next. Uterus was well visualized and bilateral fallopian tubes identified and bilateral tubes were elevated and the methylene blue was injected. Both tubes showed free flow of dye and were noted to be patent. Both ovaries were normal and both fallopian tubes appeared normal. The uterus was normal size and had a tiny posterior pedunculated fibroid approximately 1 cm in size. There were no signs of endomet riosis adhesions scars masses or lesions in the pelvis that would explain her infertility. At this time the procedure was ended starting with removal of the laparoscopic port sites the port sites were closed with a 4-0 Monocryl subcuticular stitch then sealed with surgical glue the uterine manipulator was removed from the cervix all objects were removed from the vagina the patient tolerated the procedure well sponge lap and needle counts were correct x2 Complications none Admit VTE Documentation VTE Present on Admission: No VTE Mechan Device Prophylaxis: SCD's Multi Select Codes Urinary/Genital Urinary/Genital CPT Codes: Other Procedure See Report (diagnostic laparoscopy, chromopertubation of fallopian tubes )
[2022-12-02] MEDS: HYDROcodone Bitartrate/Apap 5/325 Tablet PO (13:45)
== END 2022-12-02 14:29 | disposition home or self-care (01) ==
LOC: SDC 08:46 → AC 08:50
PROVIDERS: Referring Provider Obstetrics & Gynecology; Visit Provider Obstetrics & Gynecology
PROC: (CPT 49320; principal; 2022-12-02 10:10)
DX: N97.9 Female infertility, unspecified (principal); N93.9 Abnormal uterine and vaginal bleeding, unspecified; D25.9 Leiomyoma of uterus, unspecified; F17.200 Nicotine dependence, unspecified, uncomplicated; Z79.899 Other long term (current) drug therapy
CPT/HCPCS: 58350; 49320; 00840; 81025; 84439; 84443; 85027; 86850; 86900; 86901; J7120; J2405; Q9968

== ENCOUNTER → 2023-01-20 | Outpatient (CLI) | payer OTHER, BC, SELFPAY ==
[2023-01-20 18:34] LABS: Progesterone Level 0.63 ng/mL (See Comment)
== END | disposition home or self-care (01) ==
LOC: LAB 16:45
PROVIDERS: Referring Provider Obstetrics & Gynecology; Visit Provider Obstetrics & Gynecology
DX: N93.9 Abnormal uterine and vaginal bleeding, unspecified (principal); N97.9 Female infertility, unspecified
CPT/HCPCS: 36415; 84144; 84146

== ENCOUNTER → 2023-03-07 | Outpatient (CLI) | payer OTHER, BC, SELFPAY ==
[2023-03-07 15:46] LABS: Progesterone Level 9.21 ng/mL (See Comment)
== END | disposition home or self-care (01) ==
PROVIDERS: Referring Provider Obstetrics & Gynecology; Visit Provider Obstetrics & Gynecology
DX: N93.9 Abnormal uterine and vaginal bleeding, unspecified (principal)
CPT/HCPCS: 36415; 84144

== ENCOUNTER → 2023-07-29 | Outpatient (CLI) | payer OTHER, BC, SELFPAY ==
--- OUTSIDE RECORDS SUMMARY | 2023-07-29 07:06 | XMS RPT_ITS | CCD ---
Author Name Unknown Address [id number] [place] [address] Organization [facility] Care Team Providers Care Supplies Packer Name Role Phone Zbigniew Matta MD Primary Care Provider [phone] Allergies Allergy Classification Reported Allergen(s) Allergy Type Date of Onset Reaction(s) Facility (1 source) Azithromycin Drug Allergy 1 Rash [facility] Work Phone: (1 source) venlafaxine Drug Allergy 9 Other: See Comments [facility] Work Phone: Medications Completed/Discontinued Medications Medication Drug Class(es) Dates Sig (Normalized) Sig (Original) ALPRAZolam 0.5 mg oral tablet (1 source) Benzodiazepine Start: 04-26-2021 take 1 tablet by mouth every eight hours as needed ALPRAZolam (XANAX) 0.5 mg tablet Take 0.5 mg by mouth three times daily as needed. 0 04/26/2021 Active Problems Active Problems Problem Classification Problem Date Documented Da te Episodic/Chronic Anxiety disorders (1 source) Anxiety; Translations: [Anxiety disorder, unspecified] Onset: 11-05-2018 11-14-2018 Chronic Past or Other Problems Problem Classification Problem Date Documented Da te Episodic/Chronic Other and unspecified benign neoplasm (1 source) Lipoma (clinical); Translations: [Benign lipomatous neoplasm, unspecified] Onset: 12-09-2013 12-09-2013 Episodic Screening and history of mental health and substance abuse codes (1 source) H/O: depression; Translations: [Personal history of other mental and behavioral disorders] Onset: 11-14-2018 11-14-2018 Episodic Results Test Name Value Interpretation Reference Range Facil ity Encounters Encounter Date Encounter Type Care Provider Facility Start: 04-08-2022 Telephone encounter Hodan casas APRN.CNM Work Phone: OB/Gynecology Plan of Treatment Date Care Activity Detail Author Start: 03-03-2022 Influenza vaccination INFLUENZA (#1) [facility] Start: 10-17-2021 PAP TESTING PAP TESTING [facility] Start: 07-03-2021 DEPRESSION ASSESSMENT DEPRESSION ASS ESSMENT [facility] Start: 03-01-2020 Urine microalbumin profile DTA P,TDAP,TD (5 - Td or Tdap) [facility] Start: 09-12-2015 HEPATITIS C SCREENING HEPATITIS C SC REENING [facility] Start: 09-12-2015 HIV SCREENING HIV SCREENING [facility] Start: 09-12-2011 PEDS TO ADULT TRANSI TION ANNUAL ASSESSMENT PEDS TO ADULT TRANSITION ANNUAL ASSESSMENT [facility] Start: 2009 PEDS TO ADULT TRANSI TION INITIAL DISCUSSION PEDS TO ADULT TRANSITION INITIAL DISCUSSION [facility] Start: 09-12-2007 MENINGOCOCCAL B: Con exchange operator based on risk (1 of 2 - Risk Bexsero 2-dose series) MENINGOCOCCAL B: Consider based on risk (1 of 2 - Risk Bexsero 2-dose series) [facility] Start: 03-14-1998 COVID-19 VACCINE (#1) COVID-19 VACCI NE (#1) [facility] Immunizations Immunization Date Immunization Notes Care Provider Fa yaya 03-28-2019 influenza virus vacc ine, unspecified formulation Hodan Jacob APRN.CNM Work Phone: [facility] Work Phone: 04-15-2014 influenza, injectabl e, quadrivalent, contains preservative Hodan Jacob APRN.CNM Work Phone: [facility] 09-06-2010 human papilloma viru s vaccine, quadrivalent Hodan Jacob APRN.CNM Work Phone: [facility] Work Phone: 09-06-2010 Human Papillomavirus 9-valent vaccine Hodan Jacob APRN.CNM Work Phone: [facility] 06-07-2010 human papilloma viru s vaccine, quadrivalent Hodan Jacob APRN.CNM Work Phone: [facility] Work Phone: 06-07-2010 Human Papillomavirus 9-valent vaccine Hodan Jacob APRN.CNM Work Phone: [facility] 03-01-2010 human papilloma viru s vaccine, quadrivalent Hodan Jacob APRN.CNM Work Phone: [facility] Work Phone: 03-01-2010 Human Papillomavirus 9-valent vaccine Hodan Jacob APRN.CNM Work Phone: [facility] 03-01-2010 meningococcal polysaccharide (groups A, C, Y and W-135) diphtheria toxoid conjugate vaccine (MCV4P) Hodan Jacob APRN.CNM Work Phone: [facility] Work Phone: 03-01-2010 meningococcal polysaccharide vaccine (MPSV4) Hodan Jacob APRN.CNM Work Phone: [facility] 03-01-2010 tetanus toxoid, redu ashley diphtheria toxoid, and acellular pertussis vaccine, adsorbed Hodan Jacob APRN.CNM Work Phone: [facility] Work Phone: 03-01-2010 varicella virus vaccine Raquel Jacob APRN.CNM Work Phone: [facility] Work Phone: 02-02-2010 tetanus toxoid, redu ashley diphtheria toxoid, and acellular pertussis vaccine, adsorbed Hodan Jacob APRN.CNM Work Phone: [facility] 11-04-2002 diphtheria, tetanus toxoids and acellular pertussis vaccine, 5 pertussis antigens Hodan Jacob APRN.CNM Work Phone: [facility] 11-04-2002 diphtheria, tetanus toxoids and acellular pertussis vaccine, unspecified formulation Hodan Jacob APRN.CNM Work Phone: [facility] Work Phone: 11-04-2002 measles, mumps and rubella virus vaccine Hodan Jacob APRN.CNM Work Phone: [facility] Work Phone: 11-04-2002 measles, mumps, rube lla, and varicella virus vaccine Hodan Jacob APRN.CNM Work Phone: [facility] 11-04-2002 poliovirus vaccine, inactivated Hodan Jacob APRN.CNM Work Phone: [facility] Work Phone: 10-22-1999 varicella virus vaccine Raquel Jacob APRN.CNM Work Phone: [facility] 10-11-1999 varicella virus vaccine Raquel Jacob APRN.CNM Work Phone: [facility] Work Phone: 06-07-1999 diphtheria, tetanus toxoids and acellular pertussis vaccine, 5 pertussis antigens Hodan Jacob APRN.CNM Work Phone: [facility] 10-26-1998 measles, mumps, rube lla, and varicella virus vaccine Hodan Jacob APRN.CNM Work Phone: [facility] 10-21-1998 haemophilus influenz ae type b conjugate and Hepatitis B vaccine Hodan Jacob APRN.CNM Work Phone: [facility] Work Phone: 10-21-1998 haemophilus influenz ae type b vaccine, HbOC conjugate Hodan Jacob APRN.CNM Work Phone: [facility] 10-21-1998 hepatitis B immune globulin Hodan Jacob APRN.CNM Work Phone: [facility] 10-21-1998 measles, mumps and rubella virus vaccine Hodan Jacob APRN.CNM Work Phone: [facility] Work Phone: 04-22-1998 diphtheria, tetanus toxoids and acellular pertussis vaccine, 5 pertussis antigens Hodan Jacob CARPET OR RUG LAYER HELPER.CNM Work Phone: [facility] 04-22-1998 haemophilus influenz ae type b vaccine, HbOC conjugate Hodanespinoza Jacob CARPET OR RUG LAYER HELPER.CNM Work Phone: [facility] 04-22-1998 poliovirus vaccine, inactivated Hodan Jacob CARPET OR RUG LAYER HELPER.CNM Work Phone: [facility] 01-14-1998 diphtheria, tetanus toxoids and acellular pertussis vaccine, 5 pertussis antigens Hodanespinoza Jacob CARPET OR RUG LAYER HELPER.CNM Work Phone: [facility] 01-14-1998 haemophilus influenz ae type b vaccine, HbOC conjugate Hodanespinoza Jacob CARPET OR RUG LAYER HELPER.CNM Work Phone: [facility] 01-14-1998 poliovirus vaccine, inactivated Hodan Cecil CARPET OR RUG LAYER HELPER.CNM Work Phone: [facility] 1997 diphtheria, tetanus toxoids and acellular pertussis vaccine, 5 pertussis antigens Hodanespinoza Jacob CARPET OR RUG LAYER HELPER.CNM Work Phone: [facility] 1997 haemophilus influenz ae type b conjugate and Hepatitis B vaccine Hodanespinoza Jacob CARPET OR RUG LAYER HELPER.CNM Work Phone: [facility] Work Phone: 1997 haemophilus influenz ae type b vaccine, HbOC conjugate Hodanespinoza Jacob CARPET OR RUG LAYER HELPER.CNM Work Phone: [facility] 1997 hepatitis B immune globulin Hodanespinoza Jacob APRN.CNM Work Phone: [facility] 1997 poliovirus vaccine, inactivated Hodanespinoza Jacob CARPET OR RUG LAYER HELPER.CNM Work Phone: [facility] 1997 hepatitis B immune globulin Hodanespinoza Jacob CARPET OR RUG LAYER HELPER.CNM Work Phone: [facility] 1997 hepatitis B vaccine, pediatric or pediatric/adolescent dosage Hodanespinoza Jacob CARPET OR RUG LAYER HELPER.CNM Work Phone: [facility] Work Phone: Payers Date Payer Category Payer Unknown [id number] Social History Date Type Detail Facility Start: 11-05-2018 Tobacco smoking stat us AKIS Never smoked tobacco [facility] Start: 11-05-2018 Tobacco use and exposure Smoke less tobacco non-user [facility] Start: 08-27-2021 Alcohol intake Current non-dr community educator of alcohol (finding) [facility] Start: 1997 Sex Assigned At Not on file [facility] Note 04-08-2022 Telephone Encounter - Mandy Christianson RN - 04/08/2022 4:38 PM EDTTelephone Encounter - Hodan Jacob APRN.CNM - 04/08/2022 4:23 PM EDTTelephone Encounter - Yas Hogan RN - 04/08/2022 2:07 PM EDT Note Date & Type Note Facility 04-08-2022 Miscellaneous Notes Formattin g of this note might be different from the original. Patient states she took a UPT at home and it was negative. Bleeding precautions reviewed with patient. She would like appointment in office next week. Appointment scheduled. Mandy Christianson RN Recommend UPT like stated. If positive, bleeding precautions. If negative, ok to take Ibuprofen 600mg PO every 6hr for pain. Increase fluids for hydration. If needed can go to ED for symptoms. Otherwise, recommend follow up appointment this coming week for further evaluation. Thank you, Hodan Jacob APRN.CNM Patient's menses started 04/03/22 and was normal light flow. Menses typically lasts only 3-5 days. Today started with heavy bleeding, clots and cramping. Changing super tampon every 2 hours. Reviewed pads and heavy bleeding precautions. She does feel weak and light headed. No chest pain or shortness of breath. Cramping was severe this morning - reminded her of time she had passed missed ab. Rating 4/10 on pain scale. Has been taking ibuprofen to help. Not using control. H/o infertility and has not been preventing . She is going to get UPT to take at home. Patient of RR. Please advise. Yas Hogan RN documented in this encounter [facility] History of Past illness Narrative 09-13-2011 Note Date & Type Note Facility documented as of this encounter (statuses as of 04/08/2022) [facility] Summary Purpose Family History No Family History Records FoundNo Family History Records Found Advance Directives No Advanced Directives Records FoundNo Advanced Directives Records Found Additional Source Comments INFORMATION SOURCE (unrecogn ized section and content) DATE CREATED AUTHOR AUTHOR'S ORGANIZ ATION 05/06/2023 [facility] Source Comments (unrecognize d section and content) In the event this informatio n is protected by the Federal Confidentiality of Alcohol and Drug Abuse Patient Records regulations: The Federal rules restrict any use of the information to criminally investigate or prosecute any alcohol or drug abuse patient.[facility] Reason for Visit (unrecogniz ed section and content) Care Teams (unrecognized sec tion and content) FOR RECORDS PERTAINING TO PATIENTS WHO ARE OR HAVE BEEN ENROLLED IN A CHEMICAL DEPENDENCY/SUBSTANCEABUSE PROGRAM, SOME INFORMATION MAY BE OMITTED. This clinical summary was aggregated from multiple sources. Caution should be exercised in using it in the provision of clinical care. This summary normalizes information from multiple sources, and as a consequence, information in this document may materially change the coding, format and clinical context of patient data. In addition, data may be omitted in some cases. CLINICAL DECISIONS SHOULD BE BASED ON THE PRIMARY CLINICAL RECORDS. [email or web address] provides no warranty or guarantee of the accuracy or completeness of information in this document.
== END | disposition home or self-care (01) ==
LOC: LAB 07:04
PROVIDERS: Referring Provider Obstetrics & Gynecology Reproductive Endocrinology; Visit Provider Obstetrics & Gynecology Reproductive Endocrinology
DX: Z31.49 Encounter for other procreative investigation and testing (principal)
CPT/HCPCS: 36415; 82670; 84144

== ENCOUNTER → 2023-08-03 | Outpatient (CLI) | payer OTHER, BC, SELFPAY ==
--- OUTSIDE RECORDS SUMMARY | 2023-08-03 08:36 | XMS RPT_ITS | CCD ---
Author Name Unknown Address [address] [facility] [address] [place] [id number] [facility] [place] Care Team Providers Care Ditcher Name Role Phone Sigrid GATES, Zbigniew Corona Primary Care Provider [phone] Anna Zepeda PA-C Unavailable Gastroenterology Provider Unavailable Unavai vidal Dunn PA-C, Federico García Unavailable Philippe LOPEZ, Chelsea Unavailable Unavailable Eric ETHYLENE PLANT OPERATOR, Maryellen Unavailable Unavailable Natalia DUENAS, Nandini Corona Unavailable Unavaila janusz Mar ETHYLENE PLANT OPERATOR, Alysia Unavailable Unavailable Minesh ETHYLENE PLANT OPERATOR, Chin Unavailable Unavailable Unavailable Unavailable Allergies Allergy Classification Reported Allergen(s) Allergy Type Date of Onset Reaction(s) Facility (1 source) Azithromycin Drug Allergy 1 Rash [facility] Work Phone: (2 sources) venlafaxine Drug Allergy 9 Other: See Comments [facility] Work Phone: (1 source) Zithromax *MACROLIDES* [facility] Medications Current Medications Medication Drug Class(es) Dates Sig (Normalized) Sig (Original) omeprazole 20 mg delayed release oral capsule (1 source) Proton Pump Inhibitor Start: 02-15-2023 omeprazole 20 mg capsule,delayed release ; 1 (one) Capsule daily for 90 days Quantity: 90 {Capsule} Refills: 1 Ordered: 15-Feb-2023 IMELDA Zepeda Start: 15-Feb-2023 Completed/Discontinued Medications Medication Drug Class(es) Dates Sig (Normalized) Sig (Original) ALPRAZolam 0.5 mg oral tablet (2 sources) Benzodiazepine Start: 04-26-2021 End: 04-26-2022 take 1 tablet by mouth three times daily as needed ALPRAZolam 0.5 MG Oral Tablet ; 1 (one) Tablet three times daily, as needed for 0 days Quantity: 30 {Tablet} Refills: 0 Ordered: 26-Apr-2022 BIA Reyes Start: 26-Apr-2021 End: 26-Apr-2022 Status: Inactive Comments: Medication taken as needed. Problems Active Problems Problem Classification Problem Date Documented Da te Episodic/Chronic Allergic reactions (2 sources) Photodermatitis; Translations: [Other skin changes due to chronic exposure to nonionizing radiation] 08-05-2022 Episodic Anxiety disorders (5 sources) Anxiety; Translations: [Anxiety disorder, unspecified] Onset: 9 11-14-2018 Chronic Chronic obstructive pulmonary disease and bronchiectasis (4 sources) Bronchitis; Translations: [Bronchitis, not specified as acute or chronic] 08-05-2022 Episodic Esophageal disorders (4 sources) Gastroesophageal reflux disease; Translations: [Gastro-esophageal reflux disease without esophagitis] 02-15-2023 Chronic Inflammation; infection of eye (except that caused by tuberculosis or sexually transmitteddisease) (2 sources) Conjunctivitis of right eye; Translations: [Unspecified conjunctivitis] 08-05-2022 Episodic Noninfectious gastroenteritis (2 sources) Chronic diarrhea of unknown origin ; Translations: [Noninfective gastroenteritis and colitis, unspecified] 08-05-2022 Episodic Other gastrointestinal disorders (2 sources) Diarrhea; Translations: [Diarrhea, unspecified] 08-05-2022 Episodic Other screening for suspected conditions (not mental disorders or infectious disease) (2 sources) Decreased thyroid stimulating hormone level; Translations: [Other specified abnormal findings of blood chemistry] 02-15-2023 Episodic Other upper respiratory infections (4 sources) Sore throat symptom; Translations: [Acute pharyngitis, unspecified] 05-13-2021 Episodic Skin and subcutaneous tissue infections (2 sources) Cellulitis of lower limb; Translations: [Cellulitis of unspecified part of limb] 08-16-2023 Episodic Substance-related disorders (2 sources) Nicotine dependence; Translations: [Nicotine dependence, unspecified, uncomplicated] 02-15-2023 Chronic Unclassified (1 source) Abortions, spontaneous 02-15-2023 Past or Other Problems Problem Classification Problem Date Documented Date Episodic/Chronic Other and unspecified benign neoplasm (1 source) Lipoma (clinical); Translations: [Benign lipomatous neoplasm, unspecified] Onset: 12-09-2013 12-09-2013 Episodic Screening and history of mental health and substance abuse codes (1 source) H/O: depression; Translations: [Personal history of other mental and behavioral disorders] Onset: 11-14-2018 11-14-2018 Episodic Unclassified (1 source) Well adult female - The patient feels well with no complaints, has good energy level and is sleeping well. The first day of the last menstrual period was : (currently). The current method of contraception is: none (Patient and her are currently trying to conceive.). The patient has a balanced diet. The patient does not exercise. The patient sleeps 5 hours per night. Note for Well adult female : Patient would like a refill of her omeprazole today. It continues to work well for her GERD. 02-15-2023 Unclassified (1 source) Skin ulcer/open sore - Symptoms include drainage (Occasional drainage), an open sore, pain and swelling. Symptoms are located on the rt paez. Onset was gradual 1 year(s) ago. The patient describes this as mild and unchanged. Past treatment has included topical antibiotics (Tried OTC creams and steroid creams w/ no improvement.). Note for Skin ulceration : Type 1 DM runs in family 09-27-2022 Unclassified (1 source) Eye symptoms - The onset of the eye symptoms has been sudden and has been occurring in a persistent pattern for 1 day (Yesterday, she felt something was on her contact lens. She removed her contacts and eye was still irritated feeling.). The course has been without change. The eye symptoms are described as mild to moderate and involve the right eye. The symptoms are described as pain (burning sensation), itching, drainage (yellow drainage and this morning right eye was matted shut. Has had more watery discharge today) and swelling (right eye). There has been associated headache (this morning), itchy eyes and watery eyes, while there has been no blurred vision, nasal stuffiness, runny nose or sore throat. Note for Eye symptoms : She usually wears daily contacts. Patient has been wearing her glasses since yesterday. 08-05-2022 Unclassified (1 source) Cold Symptoms - Symptoms include sore throat, dry cough, productive cough and wheezing, but do not include nasal congestion, runny nose, ear pain, fever or chills. The onset was gradual 3 week(s) ago. The symptoms occur constantly. The patient describes this as moderate in severity and unchanged. Current treatment includes non-prescription cold medication (decongestant), allergy medications and coug drops . Risk factors include smoking (vapes). The patient has not been exposed to an individual with a cough, an individual with an upper respiratory infection, an individual with similar symptoms, an individual with strep or secondhand smoke. Medical history includes tonsillectomy, but patient denies history of seasonal allergies, recurrent sinusitis, recurrent strep pharyngitis, asthma or recurrent ear infections. Note for Upper respiratory infection : chest and back hurt from coughing and gets winded easily - wakes up at night from coughing ALONSO 04/26/22 BISHNU mack [facility] 05-12-2022 Unclassified (1 source) Cold Symptoms - Symptoms include nasal congestion, runny nose, sore throat, dry cough, productive cough (yellow sputum) and wheezing, but do not include fever, chills, general malaise or headache. The onset was gradual 5 day(s) ago. The symptoms occur constantly. The patient describes this as moderate in severity and worsening. Current treatment includes non-prescription cold medication (advil cold and sinus) and cough drops . Risk factors include smoking (vaping). The patient has been exposed to an individual with similar symptoms (works at [employer]), but has not been exposed to an individual with strep or secondhand smoke. Medical history includes tonsillectomy, but patient denies history of seasonal allergies, recurrent sinusitis, recurrent strep pharyngitis, asthma or recurrent ear infections. Note for Upper respiratory infection : pt did an at home covid test yesterday -- negativeshe did have tessalon perles on hand from [facility] and starting using them today - she feels this is helping with her coughPatient is requesting a refill of her omeprazole.Patient reports that she is vaping much more than she used to and she is interested in quitting. She uses a vape that contains nicotine. She reports vaping all day at this point. She was able to quit for several months over the summer, but started again in the last 2 months. She reports that she is currently living with family and this living situation is causing increased stress. She has a history of anxiety and vapes more when she feels stressed or anxious. 04-26-2022 Unclassified (1 source) Cold Symptoms - Symptoms include nasal congestion, runny nose, ear pain, ear fullness, sore throat, hoarseness, productive cough (green/yellow sputum, blood present at times in the sputum. When she has a coughing spell, will feel short of breath for short time.), general malaise (not feeling well and has not been sleeping well due to cough) and headache (from coughing), but do not include dry cough, fever (Has not had a fever for several days), chills or facial pain. The onset was gradual 1 week(s) ago (symptoms started last Monday and she took a home Covid-19 test later that evening and was positive.). The symptoms occur constantly. The patient describes this as moderate in severity and unchanged (does not feel that her cough is getting better). Current treatment includes non-prescription cold medication (Tylenol Cold and Flu), cough suppressants (delsium), an oral decongestant (Sudafed) and NSAIDs. Risk factors do not include smoking (used to vape but not currently). Medical history includes tonsillectomy, but patient denies history of seasonal allergies or asthma. 02-07-2022 Unclassified (1 source) swollen forehead - pt did get sunburnt this weekendbut yesterday am she noticed her forehead is swollen-- it is moving down towards her nose and is getting worsept did put aloe vera on it and she iced it as well, she did take ibuprofen this am to try to help the swellingnot itchy, no drainage, no other symptoms-- pt did not hit her head or have any known injury Denies any associated pain 12-01-2021 Unclassified (1 source) Follow up laboratory test results - Lab results returned on : (07/28/2021) include other (Abnormal TSH). Current symptoms include other (fatigue, hair loss). Note for Laboratory test results follow-up : pts TSH was 0.564 - the nurse at her [facility] told her to see PCP since it keeps dropping - last level a year before was around 1pt is having infertility issues- wonders if its not her thyroid? pt is unsureOther labs completed by gynecology have been normal and they have not been able to find a cause for her infertility at this time 08-03-2021 Unclassified (1 source) Sore throat - The onset of the sore throat has been sudden and has been occurring in an increasing pattern for 2 days. The course has been worsening. The sore throat is described as moderate. The sore throat was not precipitated by chest congestion, exposure to chemicals, exposure to a person with influenza, exposure to a person with strep pharyngitis, exposure to a person with a viral illness, sinus infection or sinus problems. Symptoms include sore throat, fever (did not take temp) and cough. The symptoms are aggravated by coughing, eating, swallowing and talking. Relieving factors include nothing (took musinex this morning.). Medical history includes recurrent strep pharyngitis and tonsillectomy, but does not include seasonal allergies or recurrent sinusitis. Note for Sore throat : Patient denies any runny nose or nasal congestion. 05-13-2021 Unclassified (1 source) Anxiety - The onset of the anxiety has been gradual and has been occurring in a persistent pattern for 2 months (Patient has had issues with anxiety in the past. Has been well controlled without medication for some time. Worse the last 2 months.). The course has been increasing. The anxiety is characterized as apprehension, expectant dread and nervousness. There are no specific phobias. Precipitating factors include specific forthcoming events (Has been staying with mom while house hunting for the past 2 months. States her mom is bipolar and has bad anxiety. She has been dealing with anxiety herself since moving back. Her situation with her mother greatly worsens her anxiety. She finds that even a weekend away from her mother greatly lessens her anxiety.). The symptoms have been associated with agitation, chest pain, diarrhea, feeling of sadness, headache, insomnia and weight loss, but have not been associated with anorexia, breathlessness, conversion symptoms, dizziness, hallucinations, heat intolerance, increased appetite, lightheadedness, migraine, nausea, palpitations, paresthesias, personality change, suicidal thoughts or vomiting. Note for Anxiety : Patient has been to counseling in the past and taken Sertraline. Experienced some shaking and tremors when taking Sertraline in December 2020. Has not been taking medication since then. 04-26-2021 Unclassified (1 source) Abdominal pain - The onset of the abdominal pain has been gradual and has been occurring in an intermittent pattern for 3 months. The course has been increasing. The pain is described as a moderate pressure sensation and cramping. The pain is located in the epigastrium and does not radiate. The symptoms have no aggravating factors but have no relieving factors. The symptoms have been associated with anorexia and diarrhea. Note for Abdominal pain : Patient reports that she has felt a sharp, burning pain in her epigastric area intermittently over the past 4-5 months. She states that most recently the pain woke her up in the middle of the night and lasted for a couple hours. She has taken otc antacids in the past to help with the pain. She denies any nausea, vomiting, or painful swallowing. Patient also reports that she has been having loose stools right after eating for the past 2-3 months. She states that when she eats anything, she has to run to the bathroom right after to have a bowel movement. This has led to her being afraid of eating. The patient reports that she had taken herself off of her sertraline before the diarrhea started and states that she has a long history of anxiety, but feels like she is doing better. She denies any abdominal cramping or blood in her stool. She states that she has been losing weight because she hasn't been eating much. 01-31-2020 Results Test Name Value Interpretation Reference Range Facil ity Vital Signs Date Time Vital Sign Value Performing Clinician Faci lity 02-15-2023 15:45-0400 Body height 156.84 cm Chelsea Paez MA [facility], [facility], [facility]. 02-15-2023 15:45-0400 Body mass index (BMI) [Ratio] 28.6 kg/m2 Chelsea Paez MA [facility], [facility].; [facility], [facility]. 02-15-2023 15:45-0400 Body surface area Derived from formula 1.71 m2 Chelsea Paez MA [facility]. 02-15-2023 15:45-0400 Body weight 70.36 kg Chelsea Paez MA [facility].; [facility], [facility]. 02-15-2023 15:45-0400 Diastolic blood pressure 79 mm[Hg] Chelsea Paez MA [facility]. Encounters Encounter Date Encounter Type Care Provider Facility Start: 02-15-2023 End: 02-15-2023 Periodic preventive med est patient 18-39 yrs Anna Zepeda PA-C [facility] Start: 02-15-2023 End: 02-15-2023 Physical examination Anna J Zepeda PA-C [facility] Start: 09-27-2022 End: 09-27-2022 Office outpatient visit 15 minutes Anna Zepeda PA-C [facility] Start: 08-05-2022 End: 08-05-2022 Office outpatient visit 15 minutes Anna Zepeda PA-C [facility] Start: 05-12-2022 End: 05-12-2022 Office outpatient visit 15 minutes Anna Zepeda PA-C [facility] Start: 04-26-2022 End: 04-26-2022 Office outpatient visit 25 minutes [facility]-C [facility] Start: 04-12-2022 End: 04-12-2022 Telephone follow-up Anna Zepeda PA-C [facility] Start: 04-08-2022 Telephone encounter Hodan casas APRN.CNM Work Phone: OB/Gynecology Procedures Date Procedure Procedure Detail Performing Clinician Start: 02-15-2023 End: 02-14-2023 Depression screening Anna Zepeda PA-C Work Phone: Start: 02-15-2023 End: 02-14-2023 Scr dep neg, no plan reqd Anna Zepeda PA-C Work Phone: Plan of Treatment Date Care Activity Detail Author Start: 03-03-2022 Influenza vaccination INFLUENZA (#1) [facility] Start: 10-17-2021 PAP TESTING PAP TESTING [facility] Start: 07-03-2021 DEPRESSION ASSESSMENT DEPRESSION ASS ESSMENT [facility] Start: 03-01-2020 Urine microalbumin profile DTA P,TDAP,TD (5 - Td or Tdap) [facility] Start: 09-12-2015 HEPATITIS C SCREENING HEPATITIS C SC REENING [facility] Start: 09-12-2015 HIV SCREENING HIV SCREENING [facility] Start: 09-12-2011 PEDS TO ADULT TRANSI TION ANNUAL ASSESSMENT PEDS TO ADULT TRANSITION ANNUAL ASSESSMENT [facility] Start: 2009 PEDS TO ADULT TRANSI TION INITIAL DISCUSSION PEDS TO ADULT TRANSITION INITIAL DISCUSSION [facility] Start: 09-12-2007 MENINGOCOCCAL B: Con elementary supervisor based on risk (1 of 2 - Risk Bexsero 2-dose series) MENINGOCOCCAL B: Consider based on risk (1 of 2 - Risk Bexsero 2-dose series) [facility] Start: 03-14-1998 COVID-19 VACCINE (#1) COVID-19 VACCI NE (#1) [facility] Immunizations Immunization Date Immunization Notes Care Provider Alex javier 03-28-2019 influenza virus vacc ine, unspecified formulation Hodan Jacob APRN.CNM Work Phone: [facility] Work Phone: 04-15-2014 influenza, injectabl e, quadrivalent, contains preservative Hodan Jacob APRN.CNM Work Phone: [facility] 09-06-2010 human papilloma viru s vaccine, quadrivalent Hodan Jacob APRN.CNM Work Phone: [facility] Work Phone: 09-06-2010 Human Papillomavirus 9-valent vaccine Hodan Jacob APRN.CNM Work Phone: [facility] 06-07-2010 human papilloma viru s vaccine, quadrivalent Hodan Jacob APRN.CNM Work Phone: [facility] Work Phone: 06-07-2010 Human Papillomavirus 9-valent vaccine Hodan Jacob APRN.CNM Work Phone: [facility] 03-01-2010 human papilloma viru s vaccine, quadrivalent Hodan Jacob APRN.CNM Work Phone: [facility] Work Phone: 03-01-2010 Human Papillomavirus 9-valent vaccine Hodan Jacob APRN.CNM Work Phone: [facility] 03-01-2010 meningococcal polysaccharide (groups A, C, Y and W-135) diphtheria toxoid conjugate vaccine (MCV4P) Hodan Jacob APRN.CNM Work Phone: [facility] Work Phone: 03-01-2010 meningococcal polysaccharide vaccine (MPSV4) Hodan Jacob APRN.CNM Work Phone: [facility] 03-01-2010 tetanus toxoid, redu ashley diphtheria toxoid, and acellular pertussis vaccine, adsorbed Hodan Jacob APRN.CNM Work Phone: [facility] Work Phone: 03-01-2010 varicella virus vaccine Raquel Jacob APRN.CNM Work Phone: [facility] Work Phone: 02-02-2010 tetanus toxoid, redu ashley diphtheria toxoid, and acellular pertussis vaccine, adsorbed Hodan Jacob APRN.CNM Work Phone: [facility] 11-04-2002 diphtheria, tetanus toxoids and acellular pertussis vaccine, 5 pertussis antigens Hodan Jacob APRN.CNM Work Phone: [facility] 11-04-2002 diphtheria, tetanus toxoids and acellular pertussis vaccine, unspecified formulation Hodan Jacob APRN.CNM Work Phone: [facility] Work Phone: 11-04-2002 measles, mumps and rubella virus vaccine Hodan Jacob APRN.CNM Work Phone: [facility] Work Phone: 11-04-2002 measles, mumps, rube lla, and varicella virus vaccine Hodan Jacob APRN.CNM Work Phone: [facility] 11-04-2002 poliovirus vaccine, inactivated Hodan Jacob GROUNDMAN.CNM Work Phone: [facility] Work Phone: 10-22-1999 varicella virus vaccine Raquel espinoza Jacob GROUNDMAN.CNM Work Phone: [facility] 10-11-1999 varicella virus vaccine Raquel Jacob GROUNDMAN.CNM Work Phone: [facility] Work Phone: 06-07-1999 diphtheria, tetanus toxoids and acellular pertussis vaccine, 5 pertussis antigens Hodan Jacob APRN.CNM Work Phone: [facility] 10-26-1998 measles, mumps, rube lla, and varicella virus vaccine Hodan Jacob APRN.CNM Work Phone: [facility] 10-21-1998 haemophilus influenz ae type b conjugate and Hepatitis B vaccine Hodan Jacob APRN.CNM Work Phone: [facility] Work Phone: 10-21-1998 haemophilus influenz ae type b vaccine, HbOC conjugate Hodan Jacob APRN.CNM Work Phone: [facility] 10-21-1998 hepatitis B immune globulin Hodan Jacob APRN.CNM Work Phone: [facility] 10-21-1998 measles, mumps and rubella virus vaccine Hodan Jacob APRN.CNM Work Phone: [facility] Work Phone: 04-22-1998 diphtheria, tetanus toxoids and acellular pertussis vaccine, 5 pertussis antigens Hodanespinoza Jacob GROUNDMAN.CNM Work Phone: [facility] 04-22-1998 haemophilus influenz ae type b vaccine, HbOC conjugate Hodanespinoza Jacob GROUNDMAN.CNM Work Phone: [facility] 04-22-1998 poliovirus vaccine, inactivated Hodan Jacob GROUNDMAN.CNM Work Phone: [facility] 01-14-1998 diphtheria, tetanus toxoids and acellular pertussis vaccine, 5 pertussis antigens Hodan Jacob GROUNDMAN.CNM Work Phone: [facility] 01-14-1998 haemophilus influenz ae type b vaccine, HbOC conjugate Hodan Jacob GROUNDMAN.CNM Work Phone: [facility] 01-14-1998 poliovirus vaccine, inactivated Hodan Jacob GROUNDMAN.CNM Work Phone: [facility] 1997 diphtheria, tetanus toxoids and acellular pertussis vaccine, 5 pertussis antigens Hodan Jacob GROUNDMAN.CNM Work Phone: [facility] 1997 haemophilus influenz ae type b conjugate and Hepatitis B vaccine Hodan Jacob GROUNDMAN.CNM Work Phone: [facility] Work Phone: 1997 haemophilus influenz ae type b vaccine, HbOC conjugate Hodan Jacob GROUNDMAN.CNM Work Phone: [facility] 1997 hepatitis B immune globulin Hodan Jacob GROUNDMAN.CNM Work Phone: [facility] 1997 poliovirus vaccine, inactivated Hodan Jacob GROUNDMAN.CNM Work Phone: [facility] 1997 hepatitis B immune globulin Hodan Jacob GROUNDMAN.CNM Work Phone: [facility] 1997 hepatitis B vaccine, pediatric or pediatric/adolescent dosage Hodan Jacob APRN.CNM Work Phone: [facility] Work Phone: Payers Date Payer Category Payer Unknown 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 [employer]; [employer] Female [employer]; [employer] Work Phone: Smokes tobacco daily [employer] Work Phone: Note 04-08-2022 Telephone Encounter - Mandy Christianson [...] Yas Hogan RN documented in this encounter [facility] History of Past illness Narrative 09-13-2011 Note Date & Type Note Facility documented as of this encounter (statuses as of 04/08/2022) [facility] Summary Purpose Family History No Family History Records FoundNo Family History Records Found Advance Directives No Advanced Directives Records FoundNo Advanced Directives Records Found Additional Source Comments INFORMATION SOURCE (unrecogn ized section and content) DATE CREATED AUTHOR AUTHOR'S ORGANIZ ATION 05/06/2023 [facility] Source Comments (unrecognize d section and content) In the event this informatio n is protected by the Federal Confidentiality of Alcohol and Drug Abuse Patient Records regulations: The Federal rules restrict any use of the information to criminally investigate or prosecute any alcohol or drug abuse patient.[facility] Reason for Visit (unrecogniz ed section and [...] BE BASED ON THE PRIMARY CLINICAL RECORDS. [employer] [facility]. provides no warranty or guarantee of the accuracy or completeness of information in this document.
[2023-08-03 09:29] LABS: hCG Titer Quant., Serum 36 mIU/mL (1-3)
[2023-08-03 09:37] LABS: Progesterone Level 49.44 ng/mL (See Comment)
== END | disposition home or self-care (01) ==
LOC: LAB 08:05
PROVIDERS: Referring Provider Obstetrics & Gynecology Reproductive Endocrinology; Visit Provider Obstetrics & Gynecology Reproductive Endocrinology
DX: Z32.00 Encounter for pregnancy test, result unknown (principal)
CPT/HCPCS: 36415; 84144; 84702

== ENCOUNTER → 2023-08-05 | Outpatient (CLI) | payer OTHER, BC, SELFPAY ==
--- OUTSIDE RECORDS SUMMARY | 2023-08-05 07:15 | XMS RPT_ITS | CCD ---
Author Name Unknown Address [address] [place] [address] [place] [id number] Organization [facility] Care Team Providers Care Supervisor Matrix Name Role Phone Sigrid GATES, Zbigniew Corona Primary Care Provider [phone] Anna Zepeda PA-C Unavailable Gastroenterology Provider Unavailable Unavai vidal Dunn PA-C, Federico García Unavailable Philippe LOPEZ, Chelsea Unavailable Unavailable Eric PARIMUTUEL CLERK, Maryellen Unavailable Unavailable Natalia DUENAS, Nandini Corona Unavailable Unavaila janusz Mar PARIMUTUEL CLERK, Alysia Unavailable Unavailable Minesh PARIMUTUEL CLERK, Chin Unavailable Unavailable Unavailable Unavailable Allergies Allergy Classification Reported Allergen(s) Allergy Type Date of Onset Reaction(s) Facility (1 source) Azithromycin Drug Allergy 1 Rash [facility] Work Phone: (3 sources) venlafaxine Drug Allergy 9 Other: See Comments [facility] Work Phone: (2 sources) Zithromax *MACROLIDES* [facility] Medications Current Medications Medication Drug Class(es) Dates Sig (Normalized) Sig (Original) omeprazole 20 mg delayed release oral capsule (2 sources) Proton Pump Inhibitor Start: 02-15-2023 omeprazole 20 mg capsule,delayed release ; 1 (one) Capsule daily for 90 days Quantity: 90 {Capsule} Refills: 1 Ordered: 15-Feb-2023 IMELDA Zepeda Start: 15-Feb-2023 Completed/Discontinued Medications Medication Drug Class(es) Dates Sig (Normalized) Sig (Original) ALPRAZolam 0.5 mg oral tablet (3 sources) Benzodiazepine Start: 04-26-2021 End: 04-26-2022 take [...] Date Documented Da te Episodic/Chronic Allergic reactions (4 sources) Photodermatitis; Translations: [Other skin changes due to chronic exposure to nonionizing radiation] 08-05-2022 Episodic Anxiety disorders (9 sources) Anxiety; Translations: [Anxiety disorder, unspecified] Onset: 9 11-14-2018 Chronic Chronic obstructive pulmonary disease and bronchiectasis (8 sources) Bronchitis; Translations: [Bronchitis, not specified as acute or chronic] 08-05-2022 Episodic Esophageal disorders (8 sources) Gastroesophageal reflux disease; Translations: [Gastro-esophageal reflux disease without esophagitis] 02-15-2023 Chronic Inflammation; infection of eye (except that caused by tuberculosis or sexually transmitteddisease) (4 sources) Conjunctivitis of right eye; Translations: [Unspecified conjunctivitis] 08-05-2022 Episodic Noninfectious gastroenteritis (4 sources) Chronic diarrhea of unknown origin ; Translations: [Noninfective gastroenteritis and colitis, unspecified] 08-05-2022 Episodic Other gastrointestinal disorders (4 sources) Diarrhea; Translations: [Diarrhea, unspecified] 08-05-2022 Episodic Other screening for suspected conditions (not mental disorders or infectious disease) (4 sources) Decreased thyroid stimulating hormone level; Translations: [Other specified abnormal findings of blood chemistry] 02-15-2023 Episodic Other upper respiratory infections (8 sources) Sore throat symptom; Translations: [Acute pharyngitis, unspecified] 05-13-2021 Episodic Skin and subcutaneous tissue infections (4 sources) Cellulitis of lower limb; Translations: [Cellulitis of unspecified part of limb] 08-16-2023 Episodic Substance-related disorders (4 sources) Nicotine dependence; Translations: [Nicotine dependence, unspecified, uncomplicated] 02-15-2023 Chronic Unclassified (2 sources) Abortions, spontaneous 02-15-2023 Past or Other Problems Problem Classification Problem Date Documented Date Episodic/Chronic Other and unspecified benign neoplasm (1 source) Lipoma (clinical); Translations: [Benign lipomatous neoplasm, unspecified] Onset: 12-09-2013 12-09-2013 Episodic Screening and history of mental health and substance abuse codes (1 source) H/O: depression; Translations: [Personal history of other mental and behavioral disorders] Onset: 11-14-2018 11-14-2018 Episodic Unclassified (2 sources) Well adult female - The patient feels [...] work well for her GERD. 02-15-2023 Unclassified (2 sources) Skin ulcer/open sore - Symptoms include drainage [...] 1 DM runs in family 09-27-2022 Unclassified (2 sources) Eye symptoms - The onset of the [...] wearing her glasses since yesterday. 08-05-2022 Unclassified (2 sources) Cold Symptoms - Symptoms include sore throat, [...] night from coughing ALONSO 04/26/22 BISHNU mack [facility] 05-12-2022 Unclassified (2 sources) Cold Symptoms - Symptoms include nasal congestion, [...] an individual with similar symptoms (works at [employer]), but has not been exposed to an individual with strep or secondhand smoke. Medical history includes tonsillectomy, but patient denies history of seasonal allergies, recurrent sinusitis, recurrent strep pharyngitis, asthma or recurrent ear infections. Note for Upper respiratory infection : pt did an at home covid test yesterday -- negativeshe did have tessalon perles on hand from [facility] and starting using them today - she [...] she feels stressed or anxious. 04-26-2022 Unclassified (2 sources) Cold Symptoms - Symptoms include nasal congestion, [...] of seasonal allergies or asthma. 02-07-2022 Unclassified (2 sources) swollen forehead - pt did get sunburnt [...] injury Denies any associated pain 12-01-2021 Unclassified (2 sources) Follow up laboratory test results - Lab [...] her infertility at this time 08-03-2021 Unclassified (2 sources) Sore throat - The onset of the [...] runny nose or nasal congestion. 05-13-2021 Unclassified (2 sources) Anxiety - The onset of the anxiety [...] been taking medication since then. 04-26-2021 Unclassified (2 sources) Abdominal pain - The onset of the [...] Body height 156.84 cm Chelsea Paez MA [facility]. 02-15-2023 15:45-0400 Body mass index (BMI) [Ratio] 28.6 kg/m2 Chelsea Paez MA [facility]. 02-15-2023 15:45-0400 Body surface area Derived from formula 1.71 m2 Chelsea Paez MA [facility]. 02-15-2023 15:45-0400 Body weight 70.36 kg Chelsea Paez MA [facility]. 02-15-2023 15:45-0400 Diastolic blood pressure 79 mm[Hg] Chelsea Paez MA [facility] Encounters Encounter Date Encounter Type Care Provider Facility Start: 02-15-2023 End: 02-15-2023 Periodic preventive med est patient 18-39 yrs Anna Zepeda PA-C [facility] Start: 02-15-2023 End: 02-15-2023 Physical examination Anna J Zepeda PA-C Work [facility] Start: 09-27-2022 End: 09-27-2022 Office outpatient visit 15 minutes Anna Zepeda PA-C [facility]. Start: 08-05-2022 End: 08-05-2022 Office outpatient visit 15 minutes Anna [facility]epeda PA-C [facility] Start: 05-12-2022 End: 05-12-2022 Office outpatient visit 15 minutes Anna Zepeda PA-C [facility] Start: 04-26-2022 End: 04-26-2022 Office outpatient visit 25 minutes [facility] PA-C [facility] Start: 04-12-2022 End: 04-12-2022 Telephone follow-up Anna Zepeda PA-C [facility] Start: 04-08-2022 Telephone encounter Hodan casas APRN.CNM Work Phone: OB/Gynecology Procedures Date Procedure Procedure Detail Performing Clinician Start: 02-15-2023 End: 02-14-2023 Depression screening Anna Zepeda PA-C Work Phone: Start: 02-15-2023 End: 02-14-2023 Scr dep neg, no plan reqd Anna Zepeda PA-C Work Phone: Plan of Treatment Date Care Activity Detail Author Start: 03-03-2022 Influenza vaccination INFLUENZA (#1) [facility] Start: 10-17-2021 PAP TESTING PAP TESTING [facility] Start: 07-03-2021 DEPRESSION ASSESSMENT DEPRESSION ASS ESSMENT [facility] Start: 03-01-2020 Urine microalbumin profile DTA P,TDAP,TD (5 - Td or Tdap) [facility] Start: 09-12-2015 HEPATITIS C SCREENING HEPATITIS C SC REENING [facility] Start: 09-12-2015 HIV SCREENING HIV SCREENING [facility] Start: 09-12-2011 PEDS TO ADULT TRANSI TION ANNUAL ASSESSMENT PEDS TO ADULT TRANSITION ANNUAL ASSESSMENT [facility] Start: 2009 PEDS TO ADULT TRANSI TION INITIAL DISCUSSION PEDS TO ADULT TRANSITION INITIAL DISCUSSION [facility] Start: 09-12-2007 MENINGOCOCCAL B: Con food selector based on risk (1 of 2 - Risk Bexsero 2-dose series) MENINGOCOCCAL B: Consider based on risk (1 of 2 - Risk Bexsero 2-dose series) [facility] Start: 03-14-1998 COVID-19 VACCINE (#1) COVID-19 VACCI NE (#1) [facility] Immunizations Immunization Date Immunization Notes Care Provider Alex javier 03-28-2019 influenza virus vacc ine, unspecified formulation Hodan Jacob APRN.CNM Work Phone: [facility] Work Phone: 04-15-2014 influenza, injectabl e, quadrivalent, contains preservative Hodan Jacob APRN.CNM Work Phone: [facility] 09-06-2010 human papilloma viru s vaccine, quadrivalent Hodan Jacob APRN.CNM Work Phone: [facility] Work Phone: 09-06-2010 Human Papillomavirus 9-valent vaccine Hodan Jacob APRN.CNM Work Phone: [facility] 06-07-2010 human papilloma viru s vaccine, quadrivalent Hodan Jacob APRN.CNM Work Phone: [facility] Work Phone: 06-07-2010 Human Papillomavirus 9-valent vaccine Hodan Jacob APRN.CNM Work Phone: [facility] 03-01-2010 human papilloma viru s vaccine, quadrivalent Hodan Jacob APRN.CNM Work Phone: [facility] Work Phone: 03-01-2010 Human Papillomavirus 9-valent vaccine Hodan Jacob APRN.CNM Work Phone: [facility] 03-01-2010 meningococcal polysaccharide (groups A, C, Y and W-135) diphtheria toxoid conjugate vaccine (MCV4P) Hodan Jacob APRN.CNM Work Phone: [facility] Work Phone: 03-01-2010 meningococcal polysaccharide vaccine (MPSV4) Hodan Jacob APRN.CNM Work Phone: [facility] 03-01-2010 tetanus toxoid, redu ashley diphtheria toxoid, and acellular pertussis vaccine, adsorbed Hodan Jacob APRN.CNM Work Phone: [facility] Work Phone: 03-01-2010 varicella virus vaccine Raquel Jacob APRN.CNM Work Phone: [facility] Work Phone: 02-02-2010 tetanus toxoid, redu ashley diphtheria toxoid, and acellular pertussis vaccine, adsorbed Hodan Jacob APRN.CNM Work Phone: [facility] 11-04-2002 diphtheria, tetanus toxoids and acellular pertussis vaccine, 5 pertussis antigens Hodan Jacob APRN.CNM Work Phone: [facility] 11-04-2002 diphtheria, tetanus toxoids and acellular pertussis vaccine, unspecified formulation Hodan Jacob APRN.CNM Work Phone: [facility] Work Phone: 11-04-2002 measles, mumps and rubella virus vaccine Hodan Jacob APRN.CNM Work Phone: [facility] Work Phone: 11-04-2002 measles, mumps, rube lla, and varicella virus vaccine Hodan Jacob APRN.CNM Work Phone: [facility] 11-04-2002 poliovirus vaccine, inactivated Hodan Jacob BUSINESS LIAISON OFFICER.CNM Work Phone: [facility] Work Phone: 10-22-1999 varicella virus vaccine Raquel espinoza Jacob BUSINESS LIAISON OFFICER.CNM Work Phone: [facility] 10-11-1999 varicella virus vaccine Raquel Jacob BUSINESS LIAISON OFFICER.CNM Work Phone: [facility] Work Phone: 06-07-1999 diphtheria, tetanus toxoids and acellular pertussis vaccine, 5 pertussis antigens Hodan Jacob APRN.CNM Work Phone: [facility] 10-26-1998 measles, mumps, rube lla, and varicella virus vaccine Hodan Jacob APRN.CNM Work Phone: [facility] 10-21-1998 haemophilus influenz ae type b conjugate and Hepatitis B vaccine Hodan Jacob APRN.CNM Work Phone: [facility] Work Phone: 10-21-1998 haemophilus influenz ae type b vaccine, HbOC conjugate Hodan Jacob APRN.CNM Work Phone: [facility] 10-21-1998 hepatitis B immune globulin Hodan Jacob APRN.CNM Work Phone: [facility] 10-21-1998 measles, mumps and rubella virus vaccine Hodan Jacob APRN.CNM Work Phone: [facility] Work Phone: 04-22-1998 diphtheria, tetanus toxoids and acellular pertussis vaccine, 5 pertussis antigens Hodanespinoza Jacob BUSINESS LIAISON OFFICER.CNM Work Phone: [facility] 04-22-1998 haemophilus influenz ae type b vaccine, HbOC conjugate Hodanespinoza Jacob BUSINESS LIAISON OFFICER.CNM Work Phone: [facility] 04-22-1998 poliovirus vaccine, inactivated Hodan Jacob BUSINESS LIAISON OFFICER.CNM Work Phone: [facility] 01-14-1998 diphtheria, tetanus toxoids and acellular pertussis vaccine, 5 pertussis antigens Hodan Jacob BUSINESS LIAISON OFFICER.CNM Work Phone: [facility] 01-14-1998 haemophilus influenz ae type b vaccine, HbOC conjugate Hodan Jacob BUSINESS LIAISON OFFICER.CNM Work Phone: [facility] 01-14-1998 poliovirus vaccine, inactivated Hodan Jacob BUSINESS LIAISON OFFICER.CNM Work Phone: [facility] 1997 diphtheria, tetanus toxoids and acellular pertussis vaccine, 5 pertussis antigens Hodan Jacob BUSINESS LIAISON OFFICER.CNM Work Phone: [facility] 1997 haemophilus influenz ae type b conjugate and Hepatitis B vaccine Hodan Jacob BUSINESS LIAISON OFFICER.CNM Work Phone: [facility] Work Phone: 1997 haemophilus influenz ae type b vaccine, HbOC conjugate Hodan Jacob BUSINESS LIAISON OFFICER.CNM Work Phone: [facility] 1997 hepatitis B immune globulin Hodan Jacob BUSINESS LIAISON OFFICER.CNM Work Phone: [facility] 1997 poliovirus vaccine, inactivated Hodan Jacob BUSINESS LIAISON OFFICER.CNM Work Phone: [facility] 1997 hepatitis B immune globulin Hodan Jacob BUSINESS LIAISON OFFICER.CNM Work Phone: [facility] 1997 hepatitis B vaccine, pediatric or pediatric/adolescent dosage Hodan Jacob APRN.CNM Work Phone: [facility] Work Phone: Payers Date Payer Category Payer Unknown 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 [employer]; [employer] Female [employer] Work Phone: Smokes tobacco daily [employer] Work Phone: Note 04-08-2022 Telephone Encounter - [...] Yas Hogan RN documented in this encounter [facility] History of Past illness Narrative 09-13-2011 Note Date & Type Note Facility documented as of this encounter (statuses as of 04/08/2022) [facility] Summary Purpose Family History No Family History Records FoundNo Family History Records Found Advance Directives No Advanced Directives Records FoundNo Advanced Directives Records Found Additional Source Comments INFORMATION SOURCE (unrecogn ized section and content) DATE CREATED AUTHOR AUTHOR'S ORGANIZ ATION 05/06/2023 [facility] Source Comments (unrecognize d section and content) In the event this informatio n is protected by the Federal Confidentiality of Alcohol and Drug Abuse Patient Records regulations: The Federal rules restrict any use of the information to criminally investigate or prosecute any alcohol or drug abuse patient.[facility] Reason for Visit (unrecogniz ed section [...] BE BASED ON THE PRIMARY CLINICAL RECORDS. [employer] [facility]. provides no warranty or guarantee of the accuracy or completeness of information in this document.
[2023-08-05 08:25] LABS: hCG Titer Quant., Serum 31 mIU/mL (1-3)
[2023-08-05 08:33] LABS: Estradiol 276.2 pg/mL; Thyroid Stim Hormone (TSH) 2.49 uIU/mL (0.358-3.74)
== END | disposition home or self-care (01) ==
LOC: LAB 07:14
PROVIDERS: Referring Provider Obstetrics & Gynecology Reproductive Endocrinology; Visit Provider Obstetrics & Gynecology Reproductive Endocrinology
DX: Z32.01 Encounter for pregnancy test, result positive (principal)
CPT/HCPCS: 36415; 82670; 84144; 84443; 84702

== ENCOUNTER → 2023-08-07 | Outpatient (CLI) | payer OTHER, BC, SELFPAY ==
--- OUTSIDE RECORDS SUMMARY | 2023-08-07 08:51 | XMS RPT_ITS | CCD ---
Author Name Unknown Address [address] [facility] [address] [place] [id number] Organization [facility] Care Team Providers Care Manager Clinical Pharmacy Name Role Phone Sigrid GATES, Zbigniew Corona Primary Care Provider Anna Zepeda PA-C Unavailable [phone] Gastroenterology Provider Unavailable Unavai vidal Dunn PA-C, Federico García Unavailable [phone] Philippe LOPEZ, Chelsea Unavailable Unavailable Eric TAR DISTRIBUTOR OPERATOR, Maryellen Unavailable Unavailable Natalia DUENAS, Nandini Corona Unavailable Unavaila janusz Mar TAR DISTRIBUTOR OPERATOR, Alysia Unavailable Unavailable Minesh TAR DISTRIBUTOR OPERATOR, Chin Unavailable Unavailable Unavailable Unavailable Allergies Allergy Classification Reported Allergen(s) Allergy Type Date of Onset Reaction(s) Facility (1 source) Azithromycin Drug Allergy 1 Rash [facility] Work Phone: (5 sources) venlafaxine Drug Allergy 9 Other: See Comments [facility] Work Phone: (4 sources) Zithromax *MACROLIDES* [facility] Medications Current Medications Medication Drug Class(es) Dates Sig (Normalized) Sig (Original) omeprazole 20 mg delayed release oral capsule (4 sources) Proton Pump Inhibitor Start: 02-15-2023 omeprazole 20 mg capsule,delayed release ; 1 (one) Capsule daily for 90 days Quantity: 90 {Capsule} Refills: 1 Ordered: 15-Feb-2023 IMELDA Zepeda Start: 15-Feb-2023 Completed/Discontinued Medications Medication Drug Class(es) Dates Sig (Normalized) Sig (Original) ALPRAZolam 0.5 mg oral tablet (5 sources) Benzodiazepine Start: 04-26-2021 End: 04-26-2022 take [...] Date Documented Da te Episodic/Chronic Allergic reactions (8 sources) Photodermatitis; Translations: [Other skin changes due to chronic exposure to nonionizing radiation] 08-05-2022 Episodic Anxiety disorders (17 sources) Anxiety; Translations: [Anxiety disorder, unspecified] Onset: 9 11-14-2018 Chronic Chronic obstructive pulmonary disease and bronchiectasis (16 sources) Bronchitis; Translations: [Bronchitis, not specified as acute or chronic] 08-05-2022 Episodic Esophageal disorders (16 sources) Gastroesophageal reflux disease; Translations: [Gastro-esophageal reflux disease without esophagitis] 02-15-2023 Chronic Inflammation; infection of eye (except that caused by tuberculosis or sexually transmitteddisease) (8 sources) Conjunctivitis of right eye; Translations: [Unspecified conjunctivitis] 08-05-2022 Episodic Noninfectious gastroenteritis (8 sources) Chronic diarrhea of unknown origin ; Translations: [Noninfective gastroenteritis and colitis, unspecified] 08-05-2022 Episodic Other gastrointestinal disorders (8 sources) Diarrhea; Translations: [Diarrhea, unspecified] 08-05-2022 Episodic Other screening for suspected conditions (not mental disorders or infectious disease) (8 sources) Decreased thyroid stimulating hormone level; Translations: [Other specified abnormal findings of blood chemistry] 02-15-2023 Episodic Other upper respiratory infections (16 sources) Sore throat symptom; Translations: [Acute pharyngitis, unspecified] 05-13-2021 Episodic Skin and subcutaneous tissue infections (8 sources) Cellulitis of lower limb; Translations: [Cellulitis of unspecified part of limb] 08-16-2023 Episodic Substance-related disorders (8 sources) Nicotine dependence; Translations: [Nicotine dependence, unspecified, uncomplicated] 02-15-2023 Chronic Unclassified (4 sources) Abortions, spontaneous 02-15-2023 Past or Other Problems Problem Classification Problem Date Documented Date Episodic/Chronic Other and unspecified benign neoplasm (1 source) Lipoma (clinical); Translations: [Benign lipomatous neoplasm, unspecified] Onset: 12-09-2013 12-09-2013 Episodic Screening and history of mental health and substance abuse codes (1 source) H/O: depression; Translations: [Personal history of other mental and behavioral disorders] Onset: 11-14-2018 11-14-2018 Episodic Unclassified (4 sources) Well adult female - The patient [...] work well for her GERD. 02-15-2023 Unclassified (4 sources) Skin ulcer/open sore - Symptoms include [...] 1 DM runs in family 09-27-2022 Unclassified (4 sources) Eye symptoms - The onset of [...] wearing her glasses since yesterday. 08-05-2022 Unclassified (4 sources) Cold Symptoms - Symptoms include sore [...] night from coughing ALONSO 04/26/22 BISHNU mack [facility] 05-12-2022 Unclassified (4 sources) Cold Symptoms - Symptoms include nasal [...] an individual with similar symptoms (works at [employer]), but has not been exposed to an individual with strep or secondhand smoke. Medical history includes tonsillectomy, but patient denies history of seasonal allergies, recurrent sinusitis, recurrent strep pharyngitis, asthma or recurrent ear infections. Note for Upper respiratory infection : pt did an at home covid test yesterday -- negativeshe did have tessalon perles on hand from [facility] and starting using them today - [...] she feels stressed or anxious. 04-26-2022 Unclassified (4 sources) Cold Symptoms - Symptoms include nasal [...] of seasonal allergies or asthma. 02-07-2022 Unclassified (4 sources) swollen forehead - pt did get [...] injury Denies any associated pain 12-01-2021 Unclassified (4 sources) Follow up laboratory test results - [...] her infertility at this time 08-03-2021 Unclassified (4 sources) Sore throat - The onset of [...] runny nose or nasal congestion. 05-13-2021 Unclassified (4 sources) Anxiety - The onset of the [...] been taking medication since then. 04-26-2021 Unclassified (4 sources) Abdominal pain - The onset of [...] Body height 156.84 cm Chelsea Paez MA [facility]. 02-15-2023 15:45-0400 Body mass index (BMI) [Ratio] 28.6 kg/m2 Chelsea Paez MA [facility]. 02-15-2023 15:45-0400 Body surface area Derived from formula 1.71 m2 Chelsea Paez MA [facility]. 02-15-2023 15:45-0400 Body weight 70.36 kg Chelsea Paez MA [facility]. 02-15-2023 15:45-0400 Diastolic blood pressure 79 mm[Hg] Chelsea Paez MA [facility] Encounters Encounter Date Encounter Type Care Provider Facility Start: 02-15-2023 End: 02-15-2023 Periodic preventive med est patient 18-39 yrs Anna Zepeda PA-C [facility] Start: 02-15-2023 End: 02-15-2023 Physical examination Anna J Zepeda PA-C [facility] Start: 09-27-2022 End: 09-27-2022 Office outpatient visit 15 minutes Anna Zepeda PA-C [facility] Start: 08-05-2022 End: 08-05-2022 Office outpatient visit 15 minutes Anna Zepeda PA-C [facility] Start: 05-12-2022 End: 05-12-2022 Office outpatient visit 15 minutes Anna Zepeda PA-C [facility] Start: 04-26-2022 End: 04-26-2022 Office outpatient visit 25 minutes [facility]-C [facility] Start: 04-12-2022 End: 04-12-2022 Telephone follow-up Anna Zepeda PA-C [facility] Start: 04-08-2022 Telephone encounter Hodan casas APRN.CNM Work Phone: OB/Gynecology Procedures Date Procedure Procedure Detail Performing Clinician Start: 02-15-2023 End: 02-14-2023 Depression screening Anna Zepeda PA-C Work Phone: Start: 02-15-2023 End: 02-14-2023 Scr dep neg, no plan reqd Anna Zepeda PA-C Work Phone: Plan of Treatment Date Care Activity Detail Author Start: 03-03-2022 Influenza vaccination INFLUENZA (#1) [facility] Start: 10-17-2021 PAP TESTING PAP TESTING [facility] Start: 07-03-2021 DEPRESSION ASSESSMENT DEPRESSION ASS ESSMENT [facility] Start: 03-01-2020 Urine microalbumin profile DTA P,TDAP,TD (5 - Td or Tdap) [facility] Start: 09-12-2015 HEPATITIS C SCREENING HEPATITIS C SC REENING [facility] Start: 09-12-2015 HIV SCREENING HIV SCREENING [facility] Start: 09-12-2011 PEDS TO ADULT TRANSI TION ANNUAL ASSESSMENT PEDS TO ADULT TRANSITION ANNUAL ASSESSMENT [facility] Start: 2009 PEDS TO ADULT TRANSI TION INITIAL DISCUSSION PEDS TO ADULT TRANSITION INITIAL DISCUSSION [facility] Start: 09-12-2007 MENINGOCOCCAL B: Con housing coordinator based on risk (1 of 2 - Risk Bexsero 2-dose series) MENINGOCOCCAL B: Consider based on risk (1 of 2 - Risk Bexsero 2-dose series) [facility] Start: 03-14-1998 COVID-19 VACCINE (#1) COVID-19 VACCI NE (#1) [facility] Immunizations Immunization Date Immunization Notes Care Provider Alex javier 03-28-2019 influenza virus vacc ine, unspecified formulation Hodan Jacob APRN.CNM Work Phone: [facility] Work Phone: 04-15-2014 influenza, injectabl e, quadrivalent, contains preservative Hodan Jacob APRN.CNM Work Phone: [facility] 09-06-2010 human papilloma viru s vaccine, quadrivalent Hodan Jacob APRN.CNM Work Phone: [facility] Work Phone: 09-06-2010 Human Papillomavirus 9-valent vaccine Hodan aJcob APRN.CNM Work Phone: [facility] 06-07-2010 human papilloma viru s vaccine, quadrivalent Hodan Jacob APRN.CNM Work Phone: [facility] Work Phone: 06-07-2010 Human Papillomavirus 9-valent vaccine Hodan Jacob APRN.CNM Work Phone: [facility] 03-01-2010 human papilloma viru s vaccine, quadrivalent Hodan Jacob APRN.CNM Work Phone: [facility] Work Phone: 03-01-2010 Human Papillomavirus 9-valent vaccine Hodan Jacob APRN.CNM Work Phone: [facility] 03-01-2010 meningococcal polysaccharide (groups A, C, Y and W-135) diphtheria toxoid conjugate vaccine (MCV4P) Hodan Jacob APRN.CNM Work Phone: [facility] Work Phone: 03-01-2010 meningococcal polysaccharide vaccine (MPSV4) Hodan Jacob APRN.CNM Work Phone: [facility] 03-01-2010 tetanus toxoid, redu ashley diphtheria toxoid, and acellular pertussis vaccine, adsorbed Hodan Jacob APRN.CNM Work Phone: [facility] Work Phone: 03-01-2010 varicella virus vaccine Rqauel Jacob APRN.CNM Work Phone: [facility] Work Phone: 02-02-2010 tetanus toxoid, redu ashley diphtheria toxoid, and acellular pertussis vaccine, adsorbed Hodan Jacob APRN.CNM Work Phone: [facility] 11-04-2002 diphtheria, tetanus toxoids and acellular pertussis vaccine, 5 pertussis antigens Hodan Jacob APRN.CNM Work Phone: [facility] 11-04-2002 diphtheria, tetanus toxoids and acellular pertussis vaccine, unspecified formulation Hodan Jacob APRN.CNM Work Phone: [facility] Work Phone: 11-04-2002 measles, mumps and rubella virus vaccine Hodan Jacob APRN.CNM Work Phone: [facility] Work Phone: 11-04-2002 measles, mumps, rube lla, and varicella virus vaccine Hodan Jacob APRN.CNM Work Phone: [facility] 11-04-2002 poliovirus vaccine, inactivated Hodan Jacob LOG ROPER.CNM Work Phone: [facility] Work Phone: 10-22-1999 varicella virus vaccine Raquel espinoza Jacob LOG ROPER.CNM Work Phone: [facility] 10-11-1999 varicella virus vaccine Raquel Jacob LOG ROPER.CNM Work Phone: [facility] Work Phone: 06-07-1999 diphtheria, tetanus toxoids and acellular pertussis vaccine, 5 pertussis antigens Hodan Jacob APRN.CNM Work Phone: [facility] 10-26-1998 measles, mumps, rube lla, and varicella virus vaccine Hodan Jacob APRN.CNM Work Phone: [facility] 10-21-1998 haemophilus influenz ae type b conjugate and Hepatitis B vaccine Hodan Jacob APRN.CNM Work Phone: [facility] Work Phone: 10-21-1998 haemophilus influenz ae type b vaccine, HbOC conjugate Hodan Jacob APRN.CNM Work Phone: [facility] 10-21-1998 hepatitis B immune globulin Hodan Jacob APRN.CNM Work Phone: [facility] 10-21-1998 measles, mumps and rubella virus vaccine Hodan Jacob APRN.CNM Work Phone: [facility] Work Phone: 04-22-1998 diphtheria, tetanus toxoids and acellular pertussis vaccine, 5 pertussis antigens Hodanespinoza Jacob LOG ROPER.CNM Work Phone: [facility] 04-22-1998 haemophilus influenz ae type b vaccine, HbOC conjugate Hodanespinoza Jacob LOG ROPER.CNM Work Phone: [facility] 04-22-1998 poliovirus vaccine, inactivated Hodan Jacob LOG ROPER.CNM Work Phone: [facility] 01-14-1998 diphtheria, tetanus toxoids and acellular pertussis vaccine, 5 pertussis antigens Hodan Jacob LOG ROPER.CNM Work Phone: [facility] 01-14-1998 haemophilus influenz ae type b vaccine, HbOC conjugate Hodan Jacob LOG ROPER.CNM Work Phone: [facility] 01-14-1998 poliovirus vaccine, inactivated Hodan Jacob LOG ROPER.CNM Work Phone: [facility] 1997 diphtheria, tetanus toxoids and acellular pertussis vaccine, 5 pertussis antigens Hodan Jacob LOG ROPER.CNM Work Phone: [facility] 1997 haemophilus influenz ae type b conjugate and Hepatitis B vaccine Hodan Jacob LOG ROPER.CNM Work Phone: [facility] Work Phone: 1997 haemophilus influenz ae type b vaccine, HbOC conjugate Hodan Jacob LOG ROPER.CNM Work Phone: [facility] 1997 hepatitis B immune globulin Hodan Jacob LOG ROPER.CNM Work Phone: [facility] 1997 poliovirus vaccine, inactivated Hodan Jacob LOG ROPER.CNM Work Phone: [facility] 1997 hepatitis B immune globulin Hodan Jacob LOG ROPER.CNM Work Phone: [facility] 1997 hepatitis B vaccine, pediatric or pediatric/adolescent dosage Hodna Jacob APRN.CNM Work Phone: [facility] Work Phone: Payers Date Payer Category Payer Unknown [id number] Social History Date Type Detail Facility Start: 11-05-2018 Tobacco smoking stat us NHIS Never smoked tobacco [facility] Start: 11-05-2018 Tobacco use and exposure Smokeless tobacco non-user [facility] Start: 08-27-2021 Alcohol intake Current non-dr physical meteorologist of alcohol (finding) [facility] Start: 1997 Sex Assigned At Not on file C [facility] Tobacco Use: Tobacco Use: ; C urrent every day smoker. [employer] Female [employer]; [employer] Work Phone: Smokes tobacco daily [employer] Work Phone: Note 04-08-2022 Telephone Encounter - [...] Yas Hogan RN documented in this encounter [facility] History of Past illness Narrative 09-13-2011 Note Date & Type Note Facility documented as of this encounter (statuses as of 04/08/2022) [facility] Summary Purpose Family History No Family History Records FoundNo Family History Records Found Advance Directives No Advanced Directives Records FoundNo Advanced Directives Records Found Additional Source Comments INFORMATION SOURCE (unrecogn ized section and content) DATE CREATED AUTHOR AUTHOR'S ORGANIZ ATION 05/06/2023 [facility] Source Comments (unrecognize d section and content) In the event this informatio n is protected by the Federal Confidentiality of Alcohol and Drug Abuse Patient Records regulations: The Federal rules restrict any use of the information to criminally investigate or prosecute any alcohol or drug abuse patient.[facility] Reason for Visit (unrecogniz ed section and [...] BE BASED ON THE PRIMARY CLINICAL RECORDS. [facility]. provides no warranty or guarantee of the accuracy or completeness of information in this document.
[2023-08-07 08:59] LABS: Progesterone Level 41.43 ng/mL (See Comment); hCG Titer Quant., Serum 13 mIU/mL (1-3)
== END | disposition home or self-care (01) ==
PROVIDERS: Referring Provider Obstetrics & Gynecology Reproductive Endocrinology; Visit Provider Obstetrics & Gynecology Reproductive Endocrinology
DX: O02.81 Inappropriate change in quantitative human chorionic gonadotropin (hCG) in early pregnancy (principal)
CPT/HCPCS: 36415; 82670; 84144; 84702

== ENCOUNTER → 2023-08-15 | Outpatient (CLI) | payer OTHER, BC, SELFPAY ==
--- OUTSIDE RECORDS SUMMARY | 2023-08-15 06:33 | XMS RPT_ITS | CCD ---
Author Name Unknown Address [address] [place] [address] Organization [facility] Care Team Providers Care Swing Saw Operator Name Role Phone Sigrid GATES, Zbigniew Corona Primary Care Provider Marco Melvin PA-C Unavailable Gastroenterology Provider Unavailable Unavai vidal Dunn PA-C, Federico García Unavailable [phone] Chelsea Paez MA Unavailable Unavailable Eric MONTGOMERYN, Maryellen Unavailable Unavailable Natalia DUENAS, Nandini Corona Unavailable Unavaila ble Zaid OPERATIONS EXPERT, Alysia Unavailable Unavailable Minesh OPERATIONS EXPERT, Chin Unavailable Unavailable Unavailable Unavailable YOLA CHILDS Admitting Unavailable MARCO MELVIN Consulting Unavailable YOLA CHILDS Attending Unavailable YOLA CHILDS Primary Care Unavailable PROVIDER, UNKNOWN Consulting Unavailable YOLA CHILDS Attending Unavailable YOLA CHILDS Primary Care Unavailable YOLA CHILDS Admitting Unavailable Allergies Allergy Classification Reported Allergen(s) Allergy Type Date of Onset Reaction(s) Facility (1 source) Azithromycin Drug Allergy 1 Rash [facility] Work Phone: (6 sources) venlafaxine Drug Allergy 9 Other: See Comments [facility] Work Phone: (5 sources) Zithromax *MACROLIDES* [facility], [facility]. Medications Current Medications Medication Drug Class(es) Dates Sig (Normalized) Sig (Original) omeprazole 20 mg delayed release oral capsule (5 sources) Proton Pump Inhibitor Start: 02-15-2023 omeprazole 20 mg capsule,delayed release ; 1 (one) Capsule daily for 90 days Quantity: 90 {Capsule} Refills: 1 Ordered: 15-Feb-2023 IMELDA Melvin Start: 15-Feb-2023 Completed/Discontinued Medications Medication Drug Class(es) Dates Sig (Normalized) Sig (Original) ALPRAZolam 0.5 mg oral tablet (6 sources) Benzodiazepine Start: 04-26-2021 End: 04-26-2022 take [...] Date Documented Da te Episodic/Chronic Allergic reactions (10 sources) Photodermatitis; Translations: [Other skin changes due to chronic exposure to nonionizing radiation] 08-05-2022 Episodic Anxiety disorders (20 sources) Anxiety; Translations: [Anxiety disorder, unspecified] Onset: 9 11-14-2018 Chronic Chronic obstructive pulmonary disease and bronchiectasis (20 sources) Bronchitis; Translations: [Bronchitis, not specified as acute or chronic] 08-05-2022 Episodic Esophageal disorders (20 sources) Gastroesophageal reflux disease; Translations: [Gastro-esophageal reflux disease without esophagitis] 02-15-2023 Chronic Inflammation; infection of eye (except that caused by tuberculosis or sexually transmitteddisease) (10 sources) Conjunctivitis of right eye; Translations: [Unspecified conjunctivitis] 08-05-2022 Episodic Noninfectious gastroenteritis (10 sources) Chronic diarrhea of unknown origin ; Translations: [Noninfective gastroenteritis and colitis, unspecified] 08-05-2022 Episodic Other gastrointestinal disorders (10 sources) Diarrhea; Translations: [Diarrhea, unspecified] 08-05-2022 Episodic Other screening for suspected conditions (not mental disorders or infectious disease) (10 sources) Decreased thyroid stimulating hormone level; Translations: [Other specified abnormal findings of blood chemistry] 02-15-2023 Episodic Other upper respiratory infections (20 sources) Sore throat symptom; Translations: [Acute pharyngitis, unspecified] 05-13-2021 Episodic Skin and subcutaneous tissue infections (10 sources) Cellulitis of lower limb; Translations: [Cellulitis of unspecified part of limb] 02-15-2023 Episodic Substance-related disorders (10 sources) Nicotine dependence; Translations: [Nicotine dependence, unspecified, uncomplicated] 02-15-2023 Chronic Unclassified (5 sources) Abortions, spontaneous 02-15-2023 Past or Other Problems Problem Classification Problem Date Documented Date Episodic/Chronic Other and unspecified benign neoplasm (1 source) Lipoma (clinical); Translations: [Benign lipomatous neoplasm, unspecified] Onset: 12-09-2013 12-09-2013 Episodic Screening and history of mental health and substance abuse codes (1 source) H/O: depression; Translations: [Personal history of other mental and behavioral disorders] Onset: 11-14-2018 11-14-2018 Episodic Unclassified (5 sources) Well adult female - The patient [...] work well for her GERD. 02-15-2023 Unclassified (5 sources) Skin ulcer/open sore - Symptoms include [...] 1 DM runs in family 09-27-2022 Unclassified (5 sources) Eye symptoms - The onset of [...] wearing her glasses since yesterday. 08-05-2022 Unclassified (5 sources) Cold Symptoms - Symptoms include sore [...] night from coughing ALONSO 04/26/22 BISHNU mack [facility] 05-12-2022 Unclassified (5 sources) Cold Symptoms - Symptoms include nasal [...] an individual with similar symptoms (works at [employer]), but has not been exposed to an individual with strep or secondhand smoke. Medical history includes tonsillectomy, but patient denies history of seasonal allergies, recurrent sinusitis, recurrent strep pharyngitis, asthma or recurrent ear infections. Note for Upper respiratory infection : pt did an at home covid test yesterday -- negativeshe did have tessalon perles on hand from [facility] and starting using them today - she [...] she feels stressed or anxious. 04-26-2022 Unclassified (5 sources) Cold Symptoms - Symptoms include nasal [...] of seasonal allergies or asthma. 02-07-2022 Unclassified (5 sources) swollen forehead - pt did get [...] injury Denies any associated pain 12-01-2021 Unclassified (5 sources) Follow up laboratory test results - [...] her infertility at this time 08-03-2021 Unclassified (5 sources) Sore throat - The onset of [...] runny nose or nasal congestion. 05-13-2021 Unclassified (5 sources) Anxiety - The onset of the [...] been taking medication since then. 04-26-2021 Unclassified (5 sources) Abdominal pain - The onset of [...] Date Time Vital Sign Value Performing Clinician Westley langley 02-15-2023 15:45-0400 Body height 156.84 cm Chelsea Paez MA [facility], [facility], [facility] 02-15-2023 15:45-0400 Body mass index (BMI) [Ratio] 28.6 kg/m2 Chelsea Paez MA [employer] [facility] [employer] [facility]. 02-15-2023 15:45-0400 Body surface area Derived from formula 1.71 m2 Chelsea Paez MA [employer] [facility] [employer] 02-15-2023 15:45-0400 Body weight 70.36 kg Chelsea Paez MA [employer] 02-15-2023 15:45-0400 Diastolic blood pressure 79 mm[Hg] Chelsea Paez MA [employer] [facility] [employer]. Encounters Encounter Date Encounter Type Care Provider Facility Start: 08-14-2023 End: 08-14-2023 ambulatory [facility] Start: 05-03-2023 End: 05-03-2023 ambulatory [facility] Start: 02-15-2023 End: 02-15-2023 Periodic preventive med est patient 18-39 yrs Marco Melvin PA-C Work Phone: [employer]. Start: 02-15-2023 End: 02-15-2023 Physical examination Marco J Melvin PA-C Work Phone: [employer]. Start: 09-27-2022 End: 09-27-2022 Office outpatient visit 15 minutes Marco Melvin PA-C Work Phone: [employer]. Start: 08-05-2022 End: 08-05-2022 Office outpatient visit 15 minutes Marco Melvin PA-C Work Phone: [employer]. Start: 05-12-2022 End: 05-12-2022 Office outpatient visit 15 minutes Marco Melvin PA-C Work Phone: [employer]. Start: 04-26-2022 End: 04-26-2022 Office outpatient visit 25 minutes Marco Melvin PA-C Work Phone: [facility] Start: 04-12-2022 End: 04-12-2022 Telephone follow-up Marco Melvin PA-C Work Phone: [facility] Start: 04-08-2022 Telephone encounter Hodan casas APRN.CNM Work Phone: OB/Gynecology Procedures Date Procedure Procedure Detail Performing Clinician Start: 02-15-2023 End: 02-14-2023 Depression screening Marco Melvin PA-C Work Phone: Start: 02-15-2023 End: 02-14-2023 Scr dep neg, no plan reqd Marco Melvin PA-C Work Phone: Plan of Treatment Date Care Activity Detail Author Start: 03-03-2022 Influenza vaccination INFLUENZA (#1) [facility] Start: 10-17-2021 PAP TESTING PAP TESTING [facility] Start: 07-03-2021 DEPRESSION ASSESSMENT DEPRESSION ASS ESSMENT [facility] Start: 03-01-2020 Urine microalbumin profile DTA P,TDAP,TD (5 - Td or Tdap) [facility] Start: 09-12-2015 HEPATITIS C SCREENING HEPATITIS C SC CARLOS [facility] Start: 09-12-2015 HIV SCREENING HIV SCREENING [facility] Start: 09-12-2011 PEDS TO ADULT TRANSI TION ANNUAL ASSESSMENT PEDS TO ADULT TRANSITION ANNUAL ASSESSMENT [facility] Start: 2009 PEDS TO ADULT TRANSI TION INITIAL DISCUSSION PEDS TO ADULT TRANSITION INITIAL DISCUSSION [facility] Start: 09-12-2007 MENINGOCOCCAL B: Con cotton jammer based on risk (1 of 2 - Risk Bexsero 2-dose series) MENINGOCOCCAL B: Consider based on risk (1 of 2 - Risk Bexsero 2-dose series) [facility] Start: 03-14-1998 COVID-19 VACCINE (#1) COVID-19 VACCI NE (#1) [facility] Immunizations Immunization Date Immunization Notes Care Provider Fa cility 03-28-2019 influenza virus vacc ine, unspecified formulation Hodan Jacob APRN.CNM Work Phone: [facility] Work Phone: 04-15-2014 influenza, injectabl e, quadrivalent, contains preservative Hodan Jacob ENGINEERING TECH.CNM Work Phone: [facility] 09-06-2010 human papilloma viru s vaccine, quadrivalent Hodan Jacob ENGINEERING TECH.CNM Work Phone: [facility] Work Phone: 09-06-2010 Human Papillomavirus 9-valent vaccine Hodan Jacob APRN.CNM Work Phone: [facility] 06-07-2010 human papilloma viru s vaccine, quadrivalent Hodan Jacob ENGINEERING TECH.CNM Work Phone: [facility] Work Phone: 06-07-2010 Human Papillomavirus 9-valent vaccine Hodan Jacob ENGINEERING TECH.CNM Work Phone: [facility] 03-01-2010 human papilloma viru s vaccine, quadrivalent Hodan Jacob ENGINEERING TECH.CNM Work Phone: [facility] Work Phone: 03-01-2010 Human Papillomavirus 9-valent vaccine Hodan Jacob APRN.CNM Work Phone: [facility] 03-01-2010 meningococcal polysaccharide (groups A, C, Y and W-135) diphtheria toxoid conjugate vaccine (MCV4P) Hodan Jacob APRN.CNM Work Phone: [facility] Work Phone: 03-01-2010 meningococcal polysaccharide vaccine (MPSV4) Hodan Jacob APRN.CNM Work Phone: [facility] 03-01-2010 tetanus toxoid, redu ashley diphtheria toxoid, and acellular pertussis vaccine, adsorbed Hodan Jacob APRN.CNM Work Phone: [facility] Work Phone: 03-01-2010 varicella virus vaccine Raquel Jacob APRN.CNM Work Phone: [facility] Work Phone: 02-02-2010 tetanus toxoid, redu ashley diphtheria toxoid, and acellular pertussis vaccine, adsorbed Hodan Jacob APRN.CNM Work Phone: [facility] 11-04-2002 diphtheria, tetanus toxoids and acellular pertussis vaccine, 5 pertussis antigens Hodan Jacbo APRN.CNM Work Phone: [facility] 11-04-2002 diphtheria, tetanus toxoids and acellular pertussis vaccine, unspecified formulation Hodan Jacob APRN.CNM Work Phone: [facility] Work Phone: 11-04-2002 measles, mumps and rubella virus vaccine Hodan Jacob APRN.CNM Work Phone: [facility] Work Phone: 11-04-2002 measles, mumps, rube lla, and varicella virus vaccine Hodan Jacob APRN.CNM Work Phone: [facility] 11-04-2002 poliovirus vaccine, inactivated Hodan Jacob APRN.CNM Work Phone: [facility] Work Phone: 10-22-1999 varicella virus vaccine Raquel Jacob APRN.CNM Work Phone: [facility] 10-11-1999 varicella virus vaccine Raquel Jacob ENGINEERING TECH.CNM Work Phone: [facility] Work Phone: 06-07-1999 diphtheria, tetanus toxoids and acellular pertussis vaccine, 5 pertussis antigens Hodan Jacob APRN.CNM Work Phone: [facility] 10-26-1998 measles, mumps, rube lla, and varicella virus vaccine Hodan Jacob APRN.CNM Work Phone: [facility] 10-21-1998 haemophilus influenz ae type b conjugate and Hepatitis B vaccine Hodan Jacob APRN.CNM Work Phone: [facility] Work Phone: 10-21-1998 haemophilus influenz ae type b vaccine, HbOC conjugate Hodanespinoza Jacob APRN.CNM Work Phone: [facility] 10-21-1998 hepatitis B immune globulin Hodan Jacob APRN.CNM Work Phone: [facility] 10-21-1998 measles, mumps and rubella virus vaccine Hodan Jacob APRN.CNM Work Phone: [facility] Work Phone: 04-22-1998 diphtheria, tetanus toxoids and acellular pertussis vaccine, 5 pertussis antigens Hodan Jacob APRN.CNM Work Phone: [facility] 04-22-1998 haemophilus influenz ae type b vaccine, HbOC conjugate Hodan Jacob APRN.CNM Work Phone: [facility] 04-22-1998 poliovirus vaccine, inactivated Hodan Jacob ENGINEERING TECH.CNM Work Phone: [facility] 01-14-1998 diphtheria, tetanus toxoids and acellular pertussis vaccine, 5 pertussis antigens Hodan Jacob APRN.CNM Work Phone: [facility] 01-14-1998 haemophilus influenz ae type b vaccine, HbOC conjugate Hodan Jacob APRN.CNM Work Phone: [facility] 01-14-1998 poliovirus vaccine, inactivated Hodan Jacob APRN.CNM Work Phone: [facility] 1997 diphtheria, tetanus toxoids and acellular pertussis vaccine, 5 pertussis antigens Hodan Jacob APRN.CNM Work Phone: [facility] 1997 haemophilus influenz ae type b conjugate and Hepatitis B vaccine Hodan Jacob APRN.CNM Work Phone: [facility] Work Phone: 1997 haemophilus influenz ae type b vaccine, HbOC conjugate Hodan Jacob APRN.CNM Work Phone: [facility] 1997 hepatitis B immune globulin Hodan Jacob APRN.CNM Work Phone: [facility] 1997 poliovirus vaccine, inactivated Hodan Jacob ENGINEERING TECH.CNM Work Phone: [facility] 1997 hepatitis B immune globulin Hodan Jacob ENGINEERING TECH.CNM Work Phone: [facility] 1997 hepatitis B vaccine, pediatric or pediatric/adolescent dosage Hodan Jacob ENGINEERING TECH.CNM Work Phone: [facility] Work Phone: Payers Date Payer Category Payer Unknown [id number] 1997 Unknown [id number] 1997 Unknown [id number] Unknown [id number] Unknown [id number] Social History Date Type Detail Facility Start: 11-05-2018 Tobacco smoking stat [facility] Never smoked tobacco [facility] Start: 11-05-2018 Tobacco use and exposure Smokeless tobacco non-user [facility] Start: 08-27-2021 Alcohol intake Current non-dr airplane coverer of alcohol (finding) [facility] Start: 1995 Sex Assigned At Not on file C [facility] Tobacco Use: Tobacco Use: ; C urrent every day smoker. [facility] Female [facility], [facility].; [employer] [facility] Work Phone: Smokes tobacco daily [employer] Work Phone: Note 04-08-2022 Telephone Encounter - [...] Yas Hogan RN documented in this encounter [facility] History of Past illness Narrative 09-13-2011 Note Date & Type Note Facility documented as of this encounter (statuses as of 04/08/2022) [facility] Summary Purpose Family History No Family History Records FoundNo Family History Records FoundNo Family History Records Found Advance Directives No Advanced Directives Records FoundNo Advanced Directives Records FoundNo Advanced Directives Records Found Additional Source Comments INFORMATION SOURCE (unrecogn ized section and content) DATE CREATED AUTHOR AUTHOR'S ORGANIZ ATION 05/06/2023 [facility] DATE CREATED AUTHOR AUTHOR'S ORGANIZ ATION 08/14/2023 [facility] Source Comments (unrecognize d section and content) In the event this informatio n is protected by the Federal Confidentiality of Alcohol and Drug Abuse Patient Records regulations: The Federal rules restrict any use of the information to criminally investigate or prosecute any alcohol or drug abuse patient.[facility] Reason for Visit (unrecogniz ed section [...] BE BASED ON THE PRIMARY CLINICAL RECORDS. [employer] provides no warranty or guarantee of the accuracy or completeness of information in this document.
[2023-08-15 07:24] LABS: Estradiol 42.6 pg/mL; Luteinizing Hormone 4.9 mIU/mL; Thyroid Stim Hormone (TSH) 2.46 uIU/mL (0.358-3.74)
[2023-08-15 08:06] LABS: Progesterone Level 0.21 ng/mL (See Comment)
== END | disposition home or self-care (01) ==
LOC: LAB 06:29
PROVIDERS: Referring Provider Obstetrics & Gynecology Reproductive Endocrinology; Visit Provider Obstetrics & Gynecology Reproductive Endocrinology
DX: Z31.83 Encounter for assisted reproductive fertility procedure cycle (principal)
CPT/HCPCS: 36415; 82670; 83001; 83002; 84144; 84443

== ENCOUNTER → 2023-08-21 | Outpatient (CLI) | payer OTHER, BC, SELFPAY ==
--- OUTSIDE RECORDS SUMMARY | 2023-08-21 06:17 | XMS RPT_ITS | CCD ---
Author Name Unknown Address [address] [place] [address] [facility] Care Team Providers Care Pipe Washer Name Role Phone Sigrid GATES, Zbigniew Corona Primary Care Provider Marco Melvin PA-C Unavailable Gastroenterology Provider Unavailable Unavai vidal Dunn PA-C, Federico García Unavailable Chelsea Paez MA Unavailable Unavailable Eric MONTGOMERYN, Maryellen Unavailable Unavailable Natalia DUENAS, Nandini Corona Unavailable Unavaila ble Zaid WOOL HANDLER, Alysia Unavailable Unavailable Minesh WOOL HANDLER, Chin Unavailable Unavailable Unavailable Unavailable YOLA CHILDS Admitting Unavailable MARCO MELVIN Consulting Unavailable YOLA CHILDS Attending Unavailable YOLA CHILDS Primary Care Unavailable PROVIDER, UNKNOWN Consulting Unavailable YOLA CHILDS Attending Unavailable YOLA CHILDS Primary Care Unavailable YOLA CHILDS Admitting Unavailable Allergies Allergy Classification Reported Allergen(s) Allergy Type Date of Onset Reaction(s) Facility (1 source) Azithromycin Drug Allergy [address] [facility] Work Phone: (7 sources) venlafaxine Drug Allergy 9 Other: See Comments [facility] Work Phone: (6 sources) Zithromax *MACROLIDES* [facility], [facility]. Medications Current Medications Medication Drug Class(es) Dates Sig (Normalized) Sig (Original) omeprazole 20 mg delayed release oral capsule (6 sources) Proton Pump Inhibitor Start: 02-15-2023 omeprazole 20 mg capsule,delayed release ; 1 (one) Capsule daily for 90 days Quantity: 90 {Capsule} Refills: 1 Ordered: 15-Feb-2023 IMELDA Melvin Start: 15-Feb-2023 Completed/Discontinued Medications Medication Drug Class(es) Dates Sig (Normalized) Sig (Original) ALPRAZolam 0.5 mg oral tablet (7 sources) Benzodiazepine Start: 04-26-2021 End: 04-26-2022 take [...] Date Documented Da te Episodic/Chronic Allergic reactions (12 sources) Photodermatitis; Translations: [Other skin changes due [...] that caused by tuberculosis or sexually transmitteddisease) (12 sources) Conjunctivitis of right eye; Translations: [Unspecified conjunctivitis] 08-05-2022 Episodic Noninfectious gastroenteritis (12 sources) Chronic diarrhea of unknown origin ; Translations: [Noninfective gastroenteritis and colitis, unspecified] 08-05-2022 Episodic Other gastrointestinal disorders (12 sources) Diarrhea; Translations: [Diarrhea, unspecified] 08-05-2022 Episodic Other screening for suspected conditions (not mental disorders or infectious disease) (12 sources) Decreased thyroid stimulating hormone level; Translations: [Other specified abnormal findings of blood chemistry] 02-15-2023 Episodic Other upper respiratory infections (20 sources) Sore throat symptom; Translations: [Acute pharyngitis, unspecified] 05-13-2021 Episodic Skin and subcutaneous tissue infections (12 sources) Cellulitis of lower limb; Translations: [Cellulitis of unspecified part of limb] 02-15-2023 Episodic Substance-related disorders (12 sources) Nicotine dependence; Translations: [Nicotine dependence, unspecified, uncomplicated] 02-15-2023 Chronic Unclassified (6 sources) Abortions, spontaneous 02-15-2023 Past or Other Problems Problem Classification Problem Date Documented Date Episodic/Chronic Other and unspecified benign neoplasm (1 source) Lipoma (clinical); Translations: [Benign lipomatous neoplasm, unspecified] Onset: 12-09-2013 12-09-2013 Episodic Screening and history of mental health and substance abuse codes (1 source) H/O: depression; Translations: [Personal history of other mental and behavioral disorders] Onset: 11-14-2018 11-14-2018 Episodic Unclassified (6 sources) Well adult female - The patient [...] work well for her GERD. 02-15-2023 Unclassified (6 sources) Skin ulcer/open sore - Symptoms include [...] 1 DM runs in family 09-27-2022 Unclassified (6 sources) Eye symptoms - The onset of [...] wearing her glasses since yesterday. 08-05-2022 Unclassified (6 sources) Cold Symptoms - Symptoms include sore [...] night from coughing ALONSO 04/26/22 BISHNU mack [facility] 05-12-2022 Unclassified (6 sources) Cold Symptoms - Symptoms include nasal [...] an individual with similar symptoms (works at [employer]), but has not been exposed to an [...] she feels stressed or anxious. 04-26-2022 Unclassified (6 sources) Cold Symptoms - Symptoms include nasal [...] of seasonal allergies or asthma. 02-07-2022 Unclassified (6 sources) swollen forehead - pt did get [...] injury Denies any associated pain 12-01-2021 Unclassified (6 sources) Follow up laboratory test results - [...] her infertility at this time 08-03-2021 Unclassified (6 sources) Sore throat - The onset of [...] runny nose or nasal congestion. 05-13-2021 Unclassified (6 sources) Anxiety - The onset of the [...] been taking medication since then. 04-26-2021 Unclassified (6 sources) Abdominal pain - The onset of [...] Body height 156.84 cm Chelsea Paez MA [facility], [facility], [facility] 02-15-2023 15:45-0400 Body mass index (BMI) [Ratio] 28.6 kg/m2 Chelsea Paez MA [employer] [facility] [employer] [facility]. 02-15-2023 15:45-0400 Body surface area Derived from formula 1.71 m2 Chelsea Paez MA [employer] [facility] [employer] 02-15-2023 15:45-0400 Body weight 70.36 kg Chelsea Paez MA [employer] 02-15-2023 15:45-0400 Diastolic blood pressure 79 mm[Hg] Chelsea Paez MA [employer] [facility] [employer] Encounters Encounter Date Encounter Type Care Provider Facility Start: 08-14-2023 End: 08-14-2023 ambulatory [facility] Start: 05-03-2023 End: 05-03-2023 ambulatory [facility] Start: 02-15-2023 End: 02-15-2023 Periodic preventive med est patient 18-39 yrs Marco Melvin PA-C Work Phone: [employer]. Start: 02-15-2023 End: 02-15-2023 Physical examination Marco J Melvin PA-C Work Phone: [employer]. Start: 09-27-2022 End: 09-27-2022 Office outpatient visit 15 minutes Marco Melvin PA-C Work Phone: [employer] Start: 08-05-2022 End: 08-05-2022 Office outpatient visit 15 minutes Marco Melvin PA-C Work Phone: [employer]. Start: 05-12-2022 End: 05-12-2022 Office outpatient visit 15 minutes Marco Melvin PA-C Work Phone: [employer]. Start: 04-26-2022 End: 04-26-2022 Office outpatient visit 25 minutes Marco Melvin PA-C Work Phone: [facility] Start: 04-12-2022 End: 04-12-2022 Telephone follow-up Marco Melvin PA-C Work Phone: [facility] Start: 04-08-2022 Telephone encounter Hodna casas APRN.CNM Work Phone: OB/Gynecology Procedures Date Procedure Procedure Detail Performing Clinician Start: 02-15-2023 End: 02-14-2023 Depression screening Marco Melvin PA-C Work Phone: Start: 02-15-2023 End: 02-14-2023 Scr dep neg, no plan reqd Marco Melvin PA-C Work Phone: Plan of Treatment Date Care Activity Detail Author Start: 03-03-2022 Influenza vaccination INFLUENZA (#1) [facility] Start: 10-17-2021 PAP TESTING PAP TESTING [facility] Start: 07-03-2021 DEPRESSION ASSESSMENT DEPRESSION ASS ESSMENT [facility] Start: 03-01-2020 Urine microalbumin profile DTA P,TDAP,TD (5 - Td or Tdap) [facility] Start: 09-12-2015 HEPATITIS C SCREENING HEPATITIS C SC CARLOS [facility] Start: 09-12-2015 HIV SCREENING HIV SCREENING [facility] Start: 09-12-2011 PEDS TO ADULT TRANSI TION ANNUAL ASSESSMENT PEDS TO ADULT TRANSITION ANNUAL ASSESSMENT [facility] Start: 2009 PEDS TO ADULT TRANSI TION INITIAL DISCUSSION PEDS TO ADULT TRANSITION INITIAL DISCUSSION [facility] Start: 09-12-2007 MENINGOCOCCAL B: Con income tax return preparer based on risk (1 of 2 - Risk Bexsero 2-dose series) MENINGOCOCCAL B: Consider based on risk (1 of 2 - Risk Bexsero 2-dose series) [facility] Start: 03-14-1998 COVID-19 VACCINE (#1) COVID-19 VACCI NE (#1) [facility] Immunizations Immunization Date Immunization Notes Care Provider Fa cility 03-28-2019 influenza virus vacc ine, unspecified formulation Hodan Jacob APRN.CNM Work Phone: [facility] Work Phone: 04-15-2014 influenza, injectabl e, quadrivalent, contains preservative Hodan Jacob COLOR SPECIALIST.CNM Work Phone: [facility] 09-06-2010 human papilloma viru s vaccine, quadrivalent Hodan Jacob COLOR SPECIALIST.CNM Work Phone: [facility] Work Phone: 09-06-2010 Human Papillomavirus 9-valent vaccine Hodan Jacob APRN.CNM Work Phone: [facility] 06-07-2010 human papilloma viru s vaccine, quadrivalent Hodan Jacob COLOR SPECIALIST.CNM Work Phone: [facility] Work Phone: 06-07-2010 Human Papillomavirus 9-valent vaccine Hodan Jacob COLOR SPECIALIST.CNM Work Phone: [facility] 03-01-2010 human papilloma viru s vaccine, quadrivalent Hodan Jacob COLOR SPECIALIST.CNM Work Phone: [facility] Work Phone: 03-01-2010 Human Papillomavirus 9-valent vaccine Hodan Jacob APRN.CNM Work Phone: [facility] 03-01-2010 meningococcal polysaccharide (groups A, C, Y and W-135) diphtheria toxoid conjugate vaccine (MCV4P) Hodan Jacob APRN.CNM Work Phone: [facility] Work Phone: 03-01-2010 meningococcal polysaccharide vaccine (MPSV4) Hodan Jacob APRN.CNM Work Phone: [facility] 03-01-2010 tetanus toxoid, redu ashley diphtheria toxoid, and acellular pertussis vaccine, adsorbed Hodan Jacob APRN.CNM Work Phone: [facility] Work Phone: 03-01-2010 varicella virus vaccine Raquel Jacob APRN.CNM Work Phone: [facility] Work Phone: 02-02-2010 tetanus toxoid, redu ashley diphtheria toxoid, and acellular pertussis vaccine, adsorbed Hodan Jacob APRN.CNM Work Phone: [facility] 11-04-2002 diphtheria, tetanus toxoids and acellular pertussis vaccine, 5 pertussis antigens Hodan Jacob APRN.CNM Work Phone: [facility] 11-04-2002 diphtheria, tetanus toxoids and acellular pertussis vaccine, unspecified formulation Hodan Jacob APRN.CNM Work Phone: [facility] Work Phone: 11-04-2002 measles, mumps and rubella virus vaccine Hodan Jacob APRN.CNM Work Phone: [facility] Work Phone: 11-04-2002 measles, mumps, rube lla, and varicella virus vaccine Hodan Jacob APRN.CNM Work Phone: [facility] 11-04-2002 poliovirus vaccine, inactivated Hodan Jacob APRN.CNM Work Phone: [facility] Work Phone: 10-22-1999 varicella virus vaccine Raquel Jacob APRN.CNM Work Phone: [facility] 10-11-1999 varicella virus vaccine Raquel Jacob COLOR SPECIALIST.CNM Work Phone: [facility] Work Phone: 06-07-1999 diphtheria, tetanus toxoids and acellular pertussis vaccine, 5 pertussis antigens Hodan Jacob APRN.CNM Work Phone: [facility] 10-26-1998 measles, mumps, rube lla, and varicella virus vaccine Hodan Jacob APRN.CNM Work Phone: [facility] 10-21-1998 haemophilus influenz ae type b conjugate and Hepatitis B vaccine Hodan Jacob APRN.CNM Work Phone: [facility] Work Phone: 10-21-1998 haemophilus influenz ae type b vaccine, HbOC conjugate Hodanespinoza Jacob APRN.CNM Work Phone: [facility] 10-21-1998 hepatitis B immune globulin Hodan Jacob APRN.CNM Work Phone: [facility] 10-21-1998 measles, mumps and rubella virus vaccine Hodan Jacob APRN.CNM Work Phone: [facility] Work Phone: 04-22-1998 diphtheria, tetanus toxoids and acellular pertussis vaccine, 5 pertussis antigens Hodan Jacob APRN.CNM Work Phone: [facility] 04-22-1998 haemophilus influenz ae type b vaccine, HbOC conjugate Hodan Jacob APRN.CNM Work Phone: [facility] 04-22-1998 poliovirus vaccine, inactivated Hodan Jacob COLOR SPECIALIST.CNM Work Phone: [facility] 01-14-1998 diphtheria, tetanus toxoids and acellular pertussis vaccine, 5 pertussis antigens Hodan Jacob APRN.CNM Work Phone: [facility] 01-14-1998 haemophilus influenz ae type b vaccine, HbOC conjugate Hodan Jacob APRN.CNM Work Phone: [facility] 01-14-1998 poliovirus vaccine, inactivated Hodan Jacob APRN.CNM Work Phone: [facility] 1997 diphtheria, tetanus toxoids and acellular pertussis vaccine, 5 pertussis antigens Hodan Jacob APRN.CNM Work Phone: [facility] 1997 haemophilus influenz ae type b conjugate and Hepatitis B vaccine Hodan Jacob APRN.CNM Work Phone: [facility] Work Phone: 1997 haemophilus influenz ae type b vaccine, HbOC conjugate Hodan Jacob APRN.CNM Work Phone: [facility] 1997 hepatitis B immune globulin Hodan Jacob APRN.CNM Work Phone: [facility] 1997 poliovirus vaccine, inactivated Hodan Jacob COLOR SPECIALIST.CNM Work Phone: [facility] 1997 hepatitis B immune globulin Hodan Jacob COLOR SPECIALIST.CNM Work Phone: [facility] 1997 hepatitis B vaccine, pediatric or pediatric/adolescent dosage Hodan Jacob COLOR SPECIALIST.CNM Work Phone: [facility] Work Phone: Payers Date Payer Category Payer Unknown [id number] 1997 Unknown [id number] 1997 Unknown [id number] Unknown [id number] Unknown [id number] Social History Date Type Detail Facility Start: 11-05-2018 Tobacco smoking stat [facility] Never smoked tobacco [facility] Start: 11-05-2018 Tobacco use and exposure Smokeless tobacco non-user 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 Start: 1995 Sex Assigned At Not on file C [facility] Tobacco Use: Tobacco Use: ; C urrent every day smoker. [facility] Female [facility], [facility].; [employer] [facility] Work Phone: Smokes tobacco daily [employer] Work Phone: Note 04-08-2022 Telephone Encounter - [...] RN documented in this encounter [facility] History of Past illness Narrative 09-13-2011 Note Date & Type Note Facility documented as of this encounter (statuses as of 04/08/2022) [facility] Summary Purpose Family History No Family History Records FoundNo Family History Records FoundNo Family History Records Found Advance Directives No Advanced Directives Records FoundNo Advanced Directives Records FoundNo Advanced Directives Records Found Additional Source Comments INFORMATION SOURCE (unrecogn ized section and content) DATE CREATED AUTHOR AUTHOR'S ORGANIZ ATION 05/06/2023 [facility] DATE CREATED AUTHOR AUTHOR'S ORGANIZ ATION 08/14/2023 [facility] Source Comments (unrecognize d section and content) In the event this informatio n is protected by the Federal Confidentiality of Alcohol and Drug Abuse Patient Records regulations: The Federal rules restrict any use of the information to criminally investigate or prosecute any alcohol or drug abuse patient.[facility] Reason for Visit (unrecogniz ed [...] BE BASED ON THE PRIMARY CLINICAL RECORDS. [employer] provides no warranty or guarantee of the accuracy or completeness of information in this document.
[2023-08-21 08:04] LABS: Estradiol 30.4 pg/mL; Luteinizing Hormone 21.7 mIU/mL
[2023-08-21 10:57] LABS: Progesterone Level < 0.21 ng/mL (See Comment)
== END | disposition home or self-care (01) ==
LOC: LAB 06:14
PROVIDERS: Referring Provider Obstetrics & Gynecology Reproductive Endocrinology; Visit Provider Obstetrics & Gynecology Reproductive Endocrinology
DX: Z31.83 Encounter for assisted reproductive fertility procedure cycle (principal)
CPT/HCPCS: 36415; 82670; 83002; 84144

== ENCOUNTER → 2023-08-23 | Outpatient (CLI) | payer OTHER, BC, SELFPAY ==
--- OUTSIDE RECORDS SUMMARY | 2023-08-23 06:22 | XMS RPT_ITS | CCD ---
Author Name Unknown Address [address] [place] [address] Organization [facility] Care Team Providers Care Clinical Lab Technologist Name Role Phone Sigrid GATES, Zbigniew Corona Primary Care Provider [phone] Marco Melvin PA-C Unavailable Gastroenterology Provider Unavailable Unavai vidal Dunn PA-C, Federico García Unavailable [phone] Chelsea Paez MA Unavailable Unavailable Eric MONTGOMERYN, Maryellen Unavailable Unavailable Natalia DUENAS, Nandini Corona Unavailable Unavaila ble Zaid CURING OVEN ATTENDANT, Alysia Unavailable Unavailable Minesh CURING OVEN ATTENDANT, Chin Unavailable Unavailable Unavailable Unavailable YOLA CHILDS Admitting Unavailable MARCO MELVIN Consulting Unavailable YOLA CHILDS Attending Unavailable YOLA CHILDS Primary Care Unavailable PROVIDER, UNKNOWN Consulting Unavailable YOLA CHILDS Attending Unavailable YOLA CHILDS Primary Care Unavailable YOLA CHILDS Admitting Unavailable Allergies Allergy Classification Reported Allergen(s) Allergy Type Date of Onset Reaction(s) Facility (1 source) Azithromycin Drug Allergy 1 Rash [facility] Work Phone: (8 sources) venlafaxine Drug Allergy 9 Other: See Comments [facility] Work Phone: (7 sources) Zithromax *MACROLIDES* [facility]. Medications Current Medications Medication Drug Class(es) Dates Sig (Normalized) Sig (Original) omeprazole 20 mg delayed release oral capsule (7 sources) Proton Pump Inhibitor Start: 02-15-2023 omeprazole 20 mg capsule,delayed release ; 1 (one) Capsule daily for 90 days Quantity: 90 {Capsule} Refills: 1 Ordered: 15-Feb-2023 IMELDA Melvin Start: 15-Feb-2023 Completed/Discontinued Medications Medication Drug Class(es) Dates Sig (Normalized) Sig (Original) ALPRAZolam 0.5 mg oral tablet (8 sources) Benzodiazepine Start: 04-26-2021 End: 04-26-2022 take [...] Date Documented Da te Episodic/Chronic Allergic reactions (14 sources) Photodermatitis; Translations: [Other skin changes due [...] that caused by tuberculosis or sexually transmitteddisease) (14 sources) Conjunctivitis of right eye; Translations: [Unspecified conjunctivitis] 08-05-2022 Episodic Noninfectious gastroenteritis (14 sources) Chronic diarrhea of unknown origin ; Translations: [Noninfective gastroenteritis and colitis, unspecified] 08-05-2022 Episodic Other gastrointestinal disorders (14 sources) Diarrhea; Translations: [Diarrhea, unspecified] 08-05-2022 Episodic Other screening for suspected conditions (not mental disorders or infectious disease) (14 sources) Decreased thyroid stimulating hormone level; Translations: [Other specified abnormal findings of blood chemistry] 02-15-2023 Episodic Other upper respiratory infections (20 sources) Sore throat symptom; Translations: [Acute pharyngitis, unspecified] 05-13-2021 Episodic Skin and subcutaneous tissue infections (14 sources) Cellulitis of lower limb; Translations: [Cellulitis of unspecified part of limb] 02-15-2023 Episodic Substance-related disorders (14 sources) Nicotine dependence; Translations: [Nicotine dependence, unspecified, uncomplicated] 02-15-2023 Chronic Unclassified (7 sources) Abortions, spontaneous 02-15-2023 Past or Other Problems Problem Classification Problem Date Documented Date Episodic/Chronic Other and unspecified benign neoplasm (1 source) Lipoma (clinical); Translations: [Benign lipomatous neoplasm, unspecified] Onset: 12-09-2013 12-09-2013 Episodic Screening and history of mental health and substance abuse codes (1 source) H/O: depression; Translations: [Personal history of other mental and behavioral disorders] Onset: 11-14-2018 11-14-2018 Episodic Unclassified (7 sources) Well adult female - The patient [...] work well for her GERD. 02-15-2023 Unclassified (7 sources) Skin ulcer/open sore - Symptoms include [...] 1 DM runs in family 09-27-2022 Unclassified (7 sources) Eye symptoms - The onset of [...] wearing her glasses since yesterday. 08-05-2022 Unclassified (7 sources) Cold Symptoms - Symptoms include sore [...] night from coughing ALONSO 04/26/22 BISHNU mack [facility] 05-12-2022 Unclassified (7 sources) Cold Symptoms - Symptoms include nasal [...] an individual with similar symptoms (works at [employer]), but has not been exposed to an [...] she feels stressed or anxious. 04-26-2022 Unclassified (7 sources) Cold Symptoms - Symptoms include nasal [...] of seasonal allergies or asthma. 02-07-2022 Unclassified (7 sources) swollen forehead - pt did get [...] injury Denies any associated pain 12-01-2021 Unclassified (7 sources) Follow up laboratory test results - [...] her infertility at this time 08-03-2021 Unclassified (7 sources) Sore throat - The onset of [...] runny nose or nasal congestion. 05-13-2021 Unclassified (7 sources) Anxiety - The onset of the [...] been taking medication since then. 04-26-2021 Unclassified (7 sources) Abdominal pain - The onset of [...] Body height 156.84 cm Chelsea Paez MA [facility] 02-15-2023 15:45-0400 Body mass index (BMI) [Ratio] 28.6 kg/m2 Chelsea Paez MA [employer] [facility] [employer] [facility]. 02-15-2023 15:45-0400 Body surface area Derived from formula 1.71 m2 Chelsea Paez MA [employer] [facility] [employer] 02-15-2023 15:45-0400 Body weight 70.36 kg Chelsea Paez MA [employer] 02-15-2023 15:45-0400 Diastolic blood pressure 79 mm[Hg] Chelsea Paez MA [employer] [facility] [employer] Encounters Encounter Date Encounter Type Care Provider Facility Start: 08-14-2023 End: 08-14-2023 ambulatory [facility] Start: 05-03-2023 End: 05-03-2023 ambulatory [facility] Start: 02-15-2023 End: 02-15-2023 Periodic preventive med est patient 18-39 yrs Marco Melvin PA-C Work Phone: [employer]. Start: 02-15-2023 End: 02-15-2023 Physical examination Marco J Melvin PA-C Work Phone: [employer]. Start: 09-27-2022 End: 09-27-2022 Office outpatient visit 15 minutes Marco Melvin PA-C Work Phone: [employer]. Start: 08-05-2022 End: 08-05-2022 Office outpatient visit 15 minutes Marco Melvin PA-C Work Phone: [employer]. Start: 05-12-2022 End: 05-12-2022 Office outpatient visit 15 minutes Marco Melvin PA-C Work Phone: [employer]. Start: 04-26-2022 End: 04-26-2022 Office outpatient visit 25 minutes Marco Melvin PA-C Work Phone: [facility] Start: 04-12-2022 End: 04-12-2022 Telephone follow-up Marco Melvin PA-C Work Phone: [facility] Start: 04-08-2022 Telephone encounter Hodan casas APRN.CNM Work Phone: OB/Gynecology Procedures Date Procedure Procedure Detail Performing Clinician Start: 02-15-2023 End: 02-14-2023 Depression screening Marco Melvin PA-C Work Phone: Start: 02-15-2023 End: 02-14-2023 Scr dep neg, no plan reqd Marco Melvin PA-C Work Phone: Plan of Treatment Date Care Activity Detail Author Start: 03-03-2022 Influenza vaccination INFLUENZA (#1) [facility] Start: 10-17-2021 PAP TESTING PAP TESTING [facility] Start: 07-03-2021 DEPRESSION ASSESSMENT DEPRESSION ASS ESSMENT [facility] Start: 03-01-2020 Urine microalbumin profile DTA P,TDAP,TD (5 - Td or Tdap) [facility] Start: 09-12-2015 HEPATITIS C SCREENING HEPATITIS C SC CARLOS [facility] Start: 09-12-2015 HIV SCREENING HIV SCREENING [facility] Start: 09-12-2011 PEDS TO ADULT TRANSI TION ANNUAL ASSESSMENT PEDS TO ADULT TRANSITION ANNUAL ASSESSMENT [facility] Start: 2009 PEDS TO ADULT TRANSI TION INITIAL DISCUSSION PEDS TO ADULT TRANSITION INITIAL DISCUSSION [facility] Start: 09-12-2007 MENINGOCOCCAL B: Con biologist aide based on risk (1 of 2 - Risk Bexsero 2-dose series) MENINGOCOCCAL B: Consider based on risk (1 of 2 - Risk Bexsero 2-dose series) [facility] Start: 03-14-1998 COVID-19 VACCINE (#1) COVID-19 VACCI NE (#1) [facility] Immunizations Immunization Date Immunization Notes Care Provider Fa cility 03-28-2019 influenza virus vacc ine, unspecified formulation Hodan Jacob APRN.CNM Work Phone: [facility] Work Phone: 04-15-2014 influenza, injectabl e, quadrivalent, contains preservative Hodan Jacob MILL ROLL REWINDER.CNM Work Phone: [facility] 09-06-2010 human papilloma viru s vaccine, quadrivalent Hodan Jacob [employer].CNM Work Phone: [facility] Work Phone: 09-06-2010 Human Papillomavirus 9-valent vaccine Hodan Jacob APRN.CNM Work Phone: [facility] 06-07-2010 human papilloma viru s vaccine, quadrivalent Hodan Jacob MILL ROLL REWINDER.CNM Work Phone: [facility] Work Phone: 06-07-2010 Human Papillomavirus 9-valent vaccine Hodan Jacob MILL ROLL REWINDER.CNM Work Phone: [facility] 03-01-2010 human papilloma viru s vaccine, quadrivalent Hodan Jacob [employer]ILL RO[employer] REWINDER.CNM Work Phone: [facility] Work Phone: 03-01-2010 Human Papillomavirus 9-valent vaccine Hodan Jacob APRN.CNM Work Phone: [facility] 03-01-2010 meningococcal polysaccharide (groups A, C, Y and W-135) diphtheria toxoid conjugate vaccine (MCV4P) Hodan Jacob APRN.CNM Work Phone: [facility] Work Phone: 03-01-2010 meningococcal polysaccharide vaccine (MPSV4) Hodan Jacob APRN.CNM Work Phone: [facility] 03-01-2010 tetanus toxoid, redu ashley diphtheria toxoid, and acellular pertussis vaccine, adsorbed Hodan Jacob APRN.CNM Work Phone: [facility] Work Phone: 03-01-2010 varicella virus vaccine Raquel Jacob APRN.CNM Work Phone: [facility] Work Phone: 02-02-2010 tetanus toxoid, redu ashley diphtheria toxoid, and acellular pertussis vaccine, adsorbed Hodan Jacob APRN.CNM Work Phone: [facility] 11-04-2002 diphtheria, tetanus toxoids and acellular pertussis vaccine, 5 pertussis antigens Hodan Jacob APRN.CNM Work Phone: [facility] 11-04-2002 diphtheria, tetanus toxoids and acellular pertussis vaccine, unspecified formulation Hodan Jacob APRN.CNM Work Phone: [facility] Work Phone: 11-04-2002 measles, mumps and rubella virus vaccine Hodan Jacob APRN.CNM Work Phone: [facility] Work Phone: 11-04-2002 measles, mumps, rube lla, and varicella virus vaccine Hodan Jacob APRN.CNM Work Phone: [facility] 11-04-2002 poliovirus vaccine, inactivated Hodan Jacob APRN.CNM Work Phone: [facility] Work Phone: 10-22-1999 varicella virus vaccine Raquel Jacob APRN.CNM Work Phone: [facility] 10-11-1999 varicella virus vaccine Raquel Jacob MILL ROLL REWINDER.CNM Work Phone: [facility] Work Phone: 06-07-1999 diphtheria, tetanus toxoids and acellular pertussis vaccine, 5 pertussis antigens Hodan Jacob APRN.CNM Work Phone: [facility] 10-26-1998 measles, mumps, rube lla, and varicella virus vaccine Hodan Jacob APRN.CNM Work Phone: [facility] 10-21-1998 haemophilus influenz ae type b conjugate and Hepatitis B vaccine Hodan Jacob APRN.CNM Work Phone: [facility] Work Phone: 10-21-1998 haemophilus influenz ae type b vaccine, HbOC conjugate Hodanespinoza Jacob APRN.CNM Work Phone: [facility] 10-21-1998 hepatitis B immune globulin Hodan Jacob APRN.CNM Work Phone: [facility] 10-21-1998 measles, mumps and rubella virus vaccine Hodan Jacob APRN.CNM Work Phone: [facility] Work Phone: 04-22-1998 diphtheria, tetanus toxoids and acellular pertussis vaccine, 5 pertussis antigens Hodan Jacob APRN.CNM Work Phone: [facility] 04-22-1998 haemophilus influenz ae type b vaccine, HbOC conjugate Hodan Jacob APRN.CNM Work Phone: [facility] 04-22-1998 poliovirus vaccine, inactivated Hodan Jacob MILL ROLL REWINDER.CNM Work Phone: [facility] 01-14-1998 diphtheria, tetanus toxoids and acellular pertussis vaccine, 5 pertussis antigens Hodan Jacob APRN.CNM Work Phone: [facility] 01-14-1998 haemophilus influenz ae type b vaccine, HbOC conjugate Hodan Jacob APRN.CNM Work Phone: [facility] 01-14-1998 poliovirus vaccine, inactivated Hodan Jacob APRN.CNM Work Phone: [facility] 1997 diphtheria, tetanus toxoids and acellular pertussis vaccine, 5 pertussis antigens oHdan Jacob APRN.CNM Work Phone: [facility] 1997 haemophilus influenz ae type b conjugate and Hepatitis B vaccine Hodan Jacob APRN.CNM Work Phone: [facility] Work Phone: 1997 haemophilus influenz ae type b vaccine, HbOC conjugate Hodan Jacob APRN.CNM Work Phone: [facility] 1997 hepatitis B immune globulin Hodan Jacob APRN.CNM Work Phone: [facility] 1997 poliovirus vaccine, inactivated Hodan Jacob MILL ROLL REWINDER.CNM Work Phone: [facility] 1997 hepatitis B immune globulin Hodan Jacob MILL ROLL REWINDER.CNM Work Phone: [facility] 1997 hepatitis B vaccine, pediatric or pediatric/adolescent dosage Hodan Jacob MILL ROLL REWINDER.CNM Work Phone: [facility] Work Phone: Payers Date Payer Category Payer Unknown [id number] 1997 Unknown [id number] 1997 Unknown [id number] Unknown [id number] Unknown [id number] Social History Date Type Detail Facility Start: 11-05-2018 Tobacco smoking stat [facility] Never smoked tobacco [facility] Start: 11-05-2018 Tobacco use and exposure Smokeless tobacco non-user [facility] Start: 08-27-2021 Alcohol intake Current non-dr occ ther of alcohol (finding) [facility] Start: 1995 Sex Assigned At Not on file C [facility] Tobacco Use: Tobacco Use: ; C urrent every day smoker. [facility] [employer] [facility] Work Phone: Smokes tobacco daily [employer] Work Phone: Note 04-08-2022 Telephone Encounter - [...] Yas Hogan RN documented in this encounter [facility] History of Past illness Narrative 09-13-2011 Note Date & Type Note Facility documented as of this encounter (statuses as of 04/08/2022) [facility] Summary Purpose Family History No Family History Records FoundNo Family History Records FoundNo Family History Records Found Advance Directives No Advanced Directives Records FoundNo Advanced Directives Records FoundNo Advanced Directives Records Found Additional Source Comments INFORMATION SOURCE (unrecogn ized section and content) DATE CREATED AUTHOR AUTHOR'S ORGANIZ ATION 05/06/2023 [facility] DATE CREATED AUTHOR AUTHOR'S ORGANIZ ATION 08/14/2023 [facility] Source Comments (unrecognize d section and content) In the event this informatio n is protected by the Federal Confidentiality of Alcohol and Drug Abuse Patient Records regulations: The Federal rules restrict any use of the information to criminally investigate or prosecute any alcohol or drug abuse patient.[facility] Reason for Visit (unrecogniz ed section [...] BE BASED ON THE PRIMARY CLINICAL RECORDS. [employer] provides no warranty or guarantee of the accuracy or completeness of information in this document.
[2023-08-23 07:01] LABS: Estradiol 104.4 pg/mL; Luteinizing Hormone 7.7 mIU/mL
[2023-08-23 08:15] LABS: Progesterone Level < 0.21 ng/mL (See Comment)
== END | disposition home or self-care (01) ==
LOC: LAB 06:19
PROVIDERS: Referring Provider Obstetrics & Gynecology Reproductive Endocrinology; Visit Provider Obstetrics & Gynecology Reproductive Endocrinology
DX: Z31.83 Encounter for assisted reproductive fertility procedure cycle (principal)
CPT/HCPCS: 36415; 82670; 83002; 84144

== ENCOUNTER → 2023-08-25 | Outpatient (CLI) | payer OTHER, BC, SELFPAY ==
--- OUTSIDE RECORDS SUMMARY | 2023-08-25 07:17 | XMS RPT_ITS | CCD ---
Author Name Unknown Address [address] [place] [address] [facility] Care Team Providers Care Concrete Block Molder Name Role Phone Sigrid GATES, Zbigniew Corona Primary Care Provider Marco Melvin PA-C Unavailable [phone] Gastroenterology Provider Unavailable Unavai vidal Dunn PA-C, Federico García Unavailable Chelsea Paez MA Unavailable Unavailable Eric MONTGOMERYN, Maryellen Unavailable Unavailable Natalia DUENAS, Nandini Corona Unavailable Unavaila ble Zaid TOMOGRAPHY TECHNOLOGIST, Alysia Unavailable Unavailable Minesh TOMOGRAPHY TECHNOLOGIST, Chin Unavailable Unavailable Unavailable Unavailable YOLA CHILDS Admitting Unavailable MARCO MELVIN Consulting Unavailable YOLA CHILDS Attending Unavailable YOLA CHILDS Primary Care Unavailable PROVIDER, UNKNOWN Consulting Unavailable YOLA CHILDS Attending Unavailable YOLA CHILDS Primary Care Unavailable YOLA CHILDS Admitting Unavailable Allergies Allergy Classification Reported Allergen(s) Allergy Type Date of Onset Reaction(s) Facility (1 source) Azithromycin Drug Allergy 1 Rash [facility] Work Phone: (9 sources) venlafaxine Drug Allergy 9 Other: See Comments [facility] Work Phone: (8 sources) Zithromax *MACROLIDES* [facility], [facility]. Medications Current Medications Medication Drug Class(es) Dates Sig (Normalized) Sig (Original) omeprazole 20 mg delayed release oral capsule (8 sources) Proton Pump Inhibitor Start: 02-15-2023 omeprazole 20 mg capsule,delayed release ; 1 (one) Capsule daily for 90 days Quantity: 90 {Capsule} Refills: 1 Ordered: 15-Feb-2023 IMELDA Melvin Start: 15-Feb-2023 Completed/Discontinued Medications Medication Drug Class(es) Dates Sig (Normalized) Sig (Original) ALPRAZolam 0.5 mg oral tablet (9 sources) Benzodiazepine Start: 04-26-2021 End: 04-26-2022 take [...] Date Documented Da te Episodic/Chronic Allergic reactions (16 sources) Photodermatitis; Translations: [Other skin changes due [...] that caused by tuberculosis or sexually transmitteddisease) (16 sources) Conjunctivitis of right eye; Translations: [Unspecified conjunctivitis] 08-05-2022 Episodic Noninfectious gastroenteritis (16 sources) Chronic diarrhea of unknown origin ; Translations: [Noninfective gastroenteritis and colitis, unspecified] 08-05-2022 Episodic Other gastrointestinal disorders (16 sources) Diarrhea; Translations: [Diarrhea, unspecified] 08-05-2022 Episodic Other screening for suspected conditions (not mental disorders or infectious disease) (16 sources) Decreased thyroid stimulating hormone level; Translations: [Other specified abnormal findings of blood chemistry] 02-15-2023 Episodic Other upper respiratory infections (20 sources) Sore throat symptom; Translations: [Acute pharyngitis, unspecified] 05-13-2021 Episodic Skin and subcutaneous tissue infections (16 sources) Cellulitis of lower limb; Translations: [Cellulitis of unspecified part of limb] 02-15-2023 Episodic Substance-related disorders (16 sources) Nicotine dependence; Translations: [Nicotine dependence, unspecified, uncomplicated] 02-15-2023 Chronic Unclassified (8 sources) Abortions, spontaneous 02-15-2023 Past or Other Problems Problem Classification Problem Date Documented Date Episodic/Chronic Other and unspecified benign neoplasm (1 source) Lipoma (clinical); Translations: [Benign lipomatous neoplasm, unspecified] Onset: 12-09-2013 12-09-2013 Episodic Screening and history of mental health and substance abuse codes (1 source) H/O: depression; Translations: [Personal history of other mental and behavioral disorders] Onset: 11-14-2018 11-14-2018 Episodic Unclassified (8 sources) Well adult female - The patient [...] work well for her GERD. 02-15-2023 Unclassified (8 sources) Skin ulcer/open sore - Symptoms include [...] 1 DM runs in family 09-27-2022 Unclassified (8 sources) Eye symptoms - The onset of [...] wearing her glasses since yesterday. 08-05-2022 Unclassified (8 sources) Cold Symptoms - Symptoms include sore [...] night from coughing ALONSO 04/26/22 BISHNU mack [facility] 05-12-2022 Unclassified (8 sources) Cold Symptoms - Symptoms include nasal [...] an individual with similar symptoms (works at [employer]), but has not been exposed to an [...] she feels stressed or anxious. 04-26-2022 Unclassified (8 sources) Cold Symptoms - Symptoms include nasal [...] of seasonal allergies or asthma. 02-07-2022 Unclassified (8 sources) swollen forehead - pt did get [...] injury Denies any associated pain 12-01-2021 Unclassified (8 sources) Follow up laboratory test results - [...] her infertility at this time 08-03-2021 Unclassified (8 sources) Sore throat - The onset of [...] runny nose or nasal congestion. 05-13-2021 Unclassified (8 sources) Anxiety - The onset of the [...] been taking medication since then. 04-26-2021 Unclassified (8 sources) Abdominal pain - The onset of [...] height 156.84 cm Chelsea Paez MA [facility], [facility] 02-15-2023 15:45-0400 Body mass index (BMI) [Ratio] 28.6 kg/m2 Chelsea Paez MA [employer] [facility]. 02-15-2023 15:45-0400 Body surface area Derived from formula 1.71 m2 Chelsea Paez MA [employer] [facility] [employer] 02-15-2023 15:45-0400 Body weight 70.36 kg Chelsea Paez MA [employer] 02-15-2023 15:45-0400 Diastolic blood pressure 79 mm[Hg] Chelsea Paez MA [employer] [facility] [employer] Encounters Encounter Date Encounter Type Care Provider Facility Start: 08-14-2023 End: 08-14-2023 ambulatory [facility] Start: 05-03-2023 End: 05-03-2023 ambulatory [facility] Start: 02-15-2023 End: 02-15-2023 Periodic preventive med est patient 18-39 yrs Marco Melvin PA-C Work Phone: [facility] Start: 02-15-2023 End: 02-15-2023 Physical examination Marco J Melvin PA-C Work Phone: [employer] [facility] Start: 09-27-2022 End: 09-27-2022 Office outpatient visit 15 minutes Marco Melvin PA-C Work Phone: [employer] Start: 08-05-2022 End: 08-05-2022 Office outpatient visit 15 minutes Marco Melvin PA-C Work Phone: [facility]. Start: 05-12-2022 End: 05-12-2022 Office outpatient visit 15 minutes Marco Melvin PA-C Work Phone: [facility]. Start: 04-26-2022 End: 04-26-2022 Office outpatient visit 25 minutes Marco Melvin PA-C Work Phone: [facility] Start: 04-12-2022 End: 04-12-2022 Telephone follow-up Marco Melvin PA-C Work Phone: [facility] Start: 04-08-2022 Telephone encounter Hodan casas APRN.CNM Work Phone: OB/Gynecology Procedures Date Procedure Procedure Detail Performing Clinician Start: 02-15-2023 End: 02-14-2023 Depression screening Marco Melvin PA-C Work Phone: Start: 02-15-2023 End: 02-14-2023 Scr dep neg, no plan reqd Marco Melvin PA-C Work Phone: Plan of Treatment Date Care Activity Detail Author Start: 03-03-2022 Influenza vaccination INFLUENZA (#1) [facility] Start: 10-17-2021 PAP TESTING PAP TESTING [facility] Start: 07-03-2021 DEPRESSION ASSESSMENT DEPRESSION ASS ESSMENT [facility] Start: 03-01-2020 Urine microalbumin profile DTA P,TDAP,TD (5 - Td or Tdap) [facility] Start: 09-12-2015 HEPATITIS C SCREENING HEPATITIS C SC CARLOS [facility] Start: 09-12-2015 HIV SCREENING HIV SCREENING [facility] Start: 09-12-2011 PEDS TO ADULT TRANSI TION ANNUAL ASSESSMENT PEDS TO ADULT TRANSITION ANNUAL ASSESSMENT [facility] Start: 2009 PEDS TO ADULT TRANSI TION INITIAL DISCUSSION PEDS TO ADULT TRANSITION INITIAL DISCUSSION [facility] Start: 09-12-2007 MENINGOCOCCAL B: Con cemetery warden based on risk (1 of 2 - Risk Bexsero 2-dose series) MENINGOCOCCAL B: Consider based on risk (1 of 2 - Risk Bexsero 2-dose series) [facility] Start: 03-14-1998 COVID-19 VACCINE (#1) COVID-19 VACCI NE (#1) [facility] Immunizations Immunization Date Immunization Notes Care Provider Fa cility 03-28-2019 influenza virus vacc ine, unspecified formulation Hodan Jacob APRN.CNM Work Phone: [facility] Work Phone: 04-15-2014 influenza, injectabl e, quadrivalent, contains preservative Hodan Jacob HIGH SCHOOL MATHEMATICS TEACHER.CNM Work Phone: [facility] 09-06-2010 human papilloma viru s vaccine, quadrivalent Hodan Jacob HIGH SCHOOL MATHEMATICS TEACHER.CNM Work Phone: [facility] Work Phone: 09-06-2010 Human Papillomavirus 9-valent vaccine Hodan Jacob APRN.CNM Work Phone: [facility] 06-07-2010 human papilloma viru s vaccine, quadrivalent Hodan Jacob HIGH SCHOOL MATHEMATICS TEACHER.CNM Work Phone: [facility] Work Phone: 06-07-2010 Human Papillomavirus 9-valent vaccine Hodan Jacob HIGH SCHOOL MATHEMATICS TEACHER.CNM Work Phone: [facility] 03-01-2010 human papilloma viru s vaccine, quadrivalent Hodan Jacob HIGH SCHOOL MATHEMATICS TEACHER.CNM Work Phone: [facility] Work Phone: 03-01-2010 Human Papillomavirus 9-valent vaccine Hodan Jacob APRN.CNM Work Phone: [facility] 03-01-2010 meningococcal polysaccharide (groups A, C, Y and W-135) diphtheria toxoid conjugate vaccine (MCV4P) Hodan Jacob APRN.CNM Work Phone: [facility] Work Phone: 03-01-2010 meningococcal polysaccharide vaccine (MPSV4) Hodan Jacob APRN.CNM Work Phone: [facility] 03-01-2010 tetanus toxoid, redu ashley diphtheria toxoid, and acellular pertussis vaccine, adsorbed Hodan Jacob APRN.CNM Work Phone: [facility] Work Phone: 03-01-2010 varicella virus vaccine Raquel Jacob APRN.CNM Work Phone: [facility] Work Phone: 02-02-2010 tetanus toxoid, redu ashley diphtheria toxoid, and acellular pertussis vaccine, adsorbed Hodan Jacob APRN.CNM Work Phone: [facility] 11-04-2002 diphtheria, tetanus toxoids and acellular pertussis vaccine, 5 pertussis antigens Hodan Jacob APRN.CNM Work Phone: [facility] 11-04-2002 diphtheria, tetanus toxoids and acellular pertussis vaccine, unspecified formulation Hodan Jacob APRN.CNM Work Phone: [facility] Work Phone: 11-04-2002 measles, mumps and rubella virus vaccine Hodan Jacob APRN.CNM Work Phone: [facility] Work Phone: 11-04-2002 measles, mumps, rube lla, and varicella virus vaccine Hodan Jacob APRN.CNM Work Phone: [facility] 11-04-2002 poliovirus vaccine, inactivated Hodan Jacob APRN.CNM Work Phone: [facility] Work Phone: 10-22-1999 varicella virus vaccine Raquel Jacob APRN.CNM Work Phone: [facility] 10-11-1999 varicella virus vaccine Raquel Jacob HIGH SCHOOL MATHEMATICS TEACHER.CNM Work Phone: [facility] Work Phone: 06-07-1999 diphtheria, tetanus toxoids and acellular pertussis vaccine, 5 pertussis antigens Hodan Jacob APRN.CNM Work Phone: [facility] 10-26-1998 measles, mumps, rube lla, and varicella virus vaccine Hodan Jacob APRN.CNM Work Phone: [facility] 10-21-1998 haemophilus influenz ae type b conjugate and Hepatitis B vaccine Hodan Jacob APRN.CNM Work Phone: [facility] Work Phone: 10-21-1998 haemophilus influenz ae type b vaccine, HbOC conjugate Hodanespinoza Jacob APRN.CNM Work Phone: [facility] 10-21-1998 hepatitis B immune globulin Hodan Jacob APRN.CNM Work Phone: [facility] 10-21-1998 measles, mumps and rubella virus vaccine Hodan Jacob APRN.CNM Work Phone: [facility] Work Phone: 04-22-1998 diphtheria, tetanus toxoids and acellular pertussis vaccine, 5 pertussis antigens Hodan Jacob APRN.CNM Work Phone: [facility] 04-22-1998 haemophilus influenz ae type b vaccine, HbOC conjugate Hodan Jacob APRN.CNM Work Phone: [facility] 04-22-1998 poliovirus vaccine, inactivated Hodan Jacob HIGH SCHOOL MATHEMATICS TEACHER.CNM Work Phone: [facility] 01-14-1998 diphtheria, tetanus toxoids and acellular pertussis vaccine, 5 pertussis antigens Hodan Jacob APRN.CNM Work Phone: [facility] 01-14-1998 haemophilus influenz ae type b vaccine, HbOC conjugate Hodan Jacob APRN.CNM Work Phone: [facility] 01-14-1998 poliovirus vaccine, inactivated Hodan Jacob APRN.CNM Work Phone: [facility] 1997 diphtheria, tetanus toxoids and acellular pertussis vaccine, 5 pertussis antigens Hodan Jacob APRN.CNM Work Phone: [facility] 1997 haemophilus influenz ae type b conjugate and Hepatitis B vaccine Hodan Jacob APRN.CNM Work Phone: [facility] Work Phone: 1997 haemophilus influenz ae type b vaccine, HbOC conjugate Hodan Jacob APRN.CNM Work Phone: [facility] 1997 hepatitis B immune globulin Hodan Jacob APRN.CNM Work Phone: [facility] 1997 poliovirus vaccine, inactivated Hodan Jacob HIGH SCHOOL MATHEMATICS TEACHER.CNM Work Phone: [facility] 1997 hepatitis B immune globulin Hodan Jacob HIGH SCHOOL MATHEMATICS TEACHER.CNM Work Phone: [facility] 1997 hepatitis B vaccine, pediatric or pediatric/adolescent dosage Hodan Jacob HIGH SCHOOL MATHEMATICS TEACHER.CNM Work Phone: [facility] Work Phone: Payers Date Payer Category Payer Unknown [id number] 1997 Unknown [id number] 1997 Unknown [id number] Unknown [id number] Unknown [id number] Social History Date Type Detail Facility Start: 11-05-2018 Tobacco smoking stat [facility] Never smoked tobacco [facility] Start: 11-05-2018 Tobacco use and exposure Smokeless tobacco non-user [facility] Start: 08-27-2021 Alcohol intake Current non-dr global risk management director of alcohol (finding) [facility] Start: 1995 Sex Assigned At Not on file C [facility] Tobacco Use: Tobacco Use: ; C urrent every day smoker. [facility] Female [facility].; [employer] [facility] Work Phone: Smokes tobacco daily [employer] Work Phone: Note 04-08-2022 Telephone Encounter - [...] Yas Hogan RN documented in this encounter [facility] History of Past illness Narrative 09-13-2011 Note Date & Type Note Facility documented as of this encounter (statuses as of 04/08/2022) [facility] Summary Purpose Family History No Family History Records FoundNo Family History Records FoundNo Family History Records Found Advance Directives No Advanced Directives Records FoundNo Advanced Directives Records FoundNo Advanced Directives Records Found Additional Source Comments INFORMATION SOURCE (unrecogn ized section and content) DATE CREATED AUTHOR AUTHOR'S ORGANIZ ATION 05/06/2023 [facility] DATE CREATED AUTHOR AUTHOR'S ORGANIZ ATION 08/14/2023 [facility] Source Comments (unrecognize d section and content) In the event this informatio n is protected by the Federal Confidentiality of Alcohol and Drug Abuse Patient Records regulations: The Federal rules restrict any use of the information to criminally investigate or prosecute any alcohol or drug abuse patient.[facility] Reason for Visit (unrecogniz ed section [...] BE BASED ON THE PRIMARY CLINICAL RECORDS. [employer] provides no warranty or guarantee of the accuracy or completeness of information in this document.
[2023-08-25 07:57] LABS: Estradiol 1350.2 pg/mL; Luteinizing Hormone 11.8 mIU/mL
[2023-08-25 08:04] LABS: Progesterone Level 0.27 ng/mL (See Comment)
== END | disposition home or self-care (01) ==
LOC: LAB 07:08
PROVIDERS: Referring Provider Obstetrics & Gynecology Reproductive Endocrinology; Visit Provider Obstetrics & Gynecology Reproductive Endocrinology
DX: Z31.83 Encounter for assisted reproductive fertility procedure cycle (principal); E28.9 Ovarian dysfunction, unspecified
CPT/HCPCS: 36415; 82670; 83002; 84144

== ENCOUNTER → 2023-09-06 | Outpatient (CLI) | payer OTHER, BC, SELFPAY ==
[2023-09-06 08:48] LABS: Estradiol 586.2 pg/mL
== END | disposition home or self-care (01) ==
PROVIDERS: Referring Provider Obstetrics & Gynecology Reproductive Endocrinology; Visit Provider Obstetrics & Gynecology Reproductive Endocrinology
DX: Z31.49 Encounter for other procreative investigation and testing (principal)
CPT/HCPCS: 36415; 82670; 84144

== ENCOUNTER → 2023-09-11 | Outpatient (CLI) | payer OTHER, BC, SELFPAY ==
--- OUTSIDE RECORDS SUMMARY | 2023-09-11 06:53 | XMS RPT_ITS | CCD ---
Author Name Unknown Address [address] [place] [address] Organization [facility] Team Providers Care Awning Erector Name Role Phone Sigrid GATES, Zbigniew Corona Primary Care Provider Marco Melvin PA-C Unavailable Gastroenterology Provider Unavailable Unavai vidal Dunn PA-C, Federico García Unavailable Chelsea Paez MA Unavailable Unavailable Eric MONTGOMERYN, Maryellen Unavailable Unavailable Natalia DUENAS, Nandini Corona Unavailable Unavaila ble Zaid MILIEU MANAGER, Alysia Unavailable Unavailable Minesh MILIEU MANAGER, Chin Unavailable Unavailable Unavailable Unavailable YOLA CHILDS Admitting Unavailable MARCO MELVIN Consulting Unavailable YOLA CHILDS Attending Unavailable YOLA CHILDS Primary Care Unavailable PROVIDER, UNKNOWN Consulting Unavailable YOLA CHILDS Attending Unavailable YOLA CHILDS Primary Care Unavailable YOLA CHILDS Admitting Unavailable Allergies Allergy Classification Reported Allergen(s) Allergy Type Date of Onset Reaction(s) Facility (1 source) Azithromycin Drug Allergy 1 Rash [facility] Work Phone: (13 sources) venlafaxine Drug Allergy 9 Other: See Comments [facility] Work Phone: (12 sources) Zithromax *MACROLIDES* [facility]. Medications Current Medications Medication Drug Class(es) Dates Sig (Normalized) Sig (Original) omeprazole 20 mg delayed release oral capsule (12 sources) Proton Pump Inhibitor Start: 02-15-2023 omeprazole 20 mg capsule,delayed release ; 1 (one) Capsule daily for 90 days Quantity: 90 {Capsule} Refills: 1 Ordered: 15-Feb-2023 IMELDA Melvin Start: 15-Feb-2023 Completed/Discontinued Medications Medication Drug Class(es) Dates Sig (Normalized) Sig (Original) ALPRAZolam 0.5 mg oral tablet (13 sources) Benzodiazepine Start: 04-26-2021 End: 04-26-2022 take [...] Date Documented Da te Episodic/Chronic Allergic reactions (20 sources) Photodermatitis; Translations: [Other skin changes due [...] that caused by tuberculosis or sexually transmitteddisease) (20 sources) Conjunctivitis of right eye; Translations: [Unspecified conjunctivitis] 08-05-2022 Episodic Noninfectious gastroenteritis (20 sources) Chronic diarrhea of unknown origin ; Translations: [Noninfective gastroenteritis and colitis, unspecified] 08-05-2022 Episodic Other gastrointestinal disorders (20 sources) Diarrhea; Translations: [Diarrhea, unspecified] 08-05-2022 Episodic Other screening for suspected conditions (not mental disorders or infectious disease) (20 sources) Decreased thyroid stimulating hormone level; Translations: [Other specified abnormal findings of blood chemistry] 02-15-2023 Episodic Other upper respiratory infections (20 sources) Sore throat symptom; Translations: [Acute pharyngitis, unspecified] 05-13-2021 Episodic Skin and subcutaneous tissue infections (20 sources) Cellulitis of lower limb; Translations: [Cellulitis of unspecified part of limb] 02-15-2023 Episodic Substance-related disorders (20 sources) Nicotine dependence; Translations: [Nicotine dependence, unspecified, uncomplicated] 02-15-2023 Chronic Unclassified (12 sources) Abortions, spontaneous 02-15-2023 Past or Other Problems Problem Classification Problem Date Documented Date Episodic/Chronic Other and unspecified benign neoplasm (1 source) Lipoma (clinical); Translations: [Benign lipomatous neoplasm, unspecified] Onset: 12-09-2013 12-09-2013 Episodic Screening and history of mental health and substance abuse codes (1 source) H/O: depression; Translations: [Personal history of other mental and behavioral disorders] Onset: 11-14-2018 11-14-2018 Episodic Unclassified (12 sources) Well adult female - The patient [...] work well for her GERD. 02-15-2023 Unclassified (12 sources) Skin ulcer/open sore - Symptoms include [...] 1 DM runs in family 09-27-2022 Unclassified (12 sources) Eye symptoms - The onset of [...] wearing her glasses since yesterday. 08-05-2022 Unclassified (12 sources) Cold Symptoms - Symptoms include sore [...] night from coughing ALONSO 04/26/22 BISHNU mack [facility] 05-12-2022 Unclassified (12 sources) Cold Symptoms - Symptoms include nasal [...] an individual with similar symptoms (works at [employer]), but has not been exposed to an [...] she feels stressed or anxious. 04-26-2022 Unclassified (12 sources) Cold Symptoms - Symptoms include nasal [...] of seasonal allergies or asthma. 02-07-2022 Unclassified (12 sources) swollen forehead - pt did get [...] injury Denies any associated pain 12-01-2021 Unclassified (12 sources) Follow up laboratory test results - [...] her infertility at this time 08-03-2021 Unclassified (12 sources) Sore throat - The onset of [...] runny nose or nasal congestion. 05-13-2021 Unclassified (12 sources) Anxiety - The onset of the [...] been taking medication since then. 04-26-2021 Unclassified (12 sources) Abdominal pain - The onset of [...] Body height 156.84 cm Chelsea Paez MA [facility], [facility], [facility] 02-15-2023 15:45-0400 Body mass index (BMI) [Ratio] 28.6 kg/m2 Chelsea Paez MA [employer] [facility] [employer] [facility]. 02-15-2023 15:45-0400 Body surface area Derived from formula 1.71 m2 Chelsea Paez MA [employer] [facility] [employer] 02-15-2023 15:45-0400 Body weight 70.36 kg Chelsea Paez MA [employer] 02-15-2023 15:45-0400 Diastolic blood pressure 79 mm[Hg] Chelsea Paez MA [employer] [facility] [employer] Encounters Encounter Date Encounter Type Care Provider Facility Start: 08-14-2023 End: 08-14-2023 ambulatory [facility] Start: 05-03-2023 End: 05-03-2023 ambulatory [facility] Start: 02-15-2023 End: 02-15-2023 Periodic preventive med est patient 18-39 yrs Marco Melvin PA-C Work Phone: [employer] Start: 02-15-2023 End: 02-15-2023 Physical examination Marco J Melvin PA-C Work Phone: [employer] Start: 09-27-2022 End: 09-27-2022 Office outpatient visit 15 minutes Marco Melvin PA-C Work Phone: [employer] Start: 08-05-2022 End: 08-05-2022 Office outpatient visit 15 minutes Marco Melvin PA-C Work Phone: [employer] [facility] Start: 05-12-2022 End: 05-12-2022 Office outpatient visit 15 minutes Marco Melvin PA-C Work Phone: [employer] Start: 04-26-2022 End: 04-26-2022 Office outpatient visit 25 minutes Marco Melvin PA-C Work Phone: [facility] Start: 04-12-2022 End: 04-12-2022 Telephone follow-up Marco Melvin PA-C Work Phone: [facility] Start: 04-08-2022 Telephone encounter Hodan casas APRN.CNM Work Phone: OB/Gynecology Procedures Date Procedure Procedure Detail Performing Clinician Start: 02-15-2023 End: 02-14-2023 Depression screening Marco Melvin PA-C Work Phone: Start: 02-15-2023 End: 02-14-2023 Scr dep neg, no plan reqd Marco Melvin PA-C Work Phone: Plan of Treatment Date Care Activity Detail Author Start: 03-03-2022 Influenza vaccination INFLUENZA (#1) [facility] Start: 10-17-2021 PAP TESTING PAP TESTING [facility] Start: 07-03-2021 DEPRESSION ASSESSMENT DEPRESSION ASS ESSMENT [facility] Start: 03-01-2020 Urine microalbumin profile DTA P,TDAP,TD (5 - Td or Tdap) [facility] Start: 09-12-2015 HEPATITIS C SCREENING HEPATITIS C SC CARLOS [facility] Start: 09-12-2015 HIV SCREENING HIV SCREENING [facility] Start: 09-12-2011 PEDS TO ADULT TRANSI TION ANNUAL ASSESSMENT PEDS TO ADULT TRANSITION ANNUAL ASSESSMENT [facility] Start: 2009 PEDS TO ADULT TRANSI TION INITIAL DISCUSSION PEDS TO ADULT TRANSITION INITIAL DISCUSSION [facility] Start: 09-12-2007 MENINGOCOCCAL B: Con mental health social worker based on risk (1 of 2 - Risk Bexsero 2-dose series) MENINGOCOCCAL B: Consider based on risk (1 of 2 - Risk Bexsero 2-dose series) [facility] Start: 03-14-1998 COVID-19 VACCINE (#1) COVID-19 VACCI NE (#1) [facility] Immunizations Immunization Date Immunization Notes Care Provider Fa cility 03-28-2019 influenza virus vacc ine, unspecified formulation Hodan Jacob APRN.CNM Work Phone: [facility] Work Phone: 04-15-2014 influenza, injectabl e, quadrivalent, contains preservative Hodan Jacob TAPING MACHINE OPERATOR.CNM Work Phone: [facility] 09-06-2010 human papilloma viru s vaccine, quadrivalent Hodan Jacob TAPING MACHINE OPERATOR.CNM Work Phone: [facility] Work Phone: 09-06-2010 Human Papillomavirus 9-valent vaccine Hodan Jacob APRN.CNM Work Phone: [facility] 06-07-2010 human papilloma viru s vaccine, quadrivalent Hodan Jacob TAPING MACHINE OPERATOR.CNM Work Phone: [facility] Work Phone: 06-07-2010 Human Papillomavirus 9-valent vaccine Hodan Jacob TAPING MACHINE OPERATOR.CNM Work Phone: [facility] 03-01-2010 human papilloma viru s vaccine, quadrivalent Hodan Jacob TAPING MACHINE OPERATOR.CNM Work Phone: [facility] Work Phone: 03-01-2010 Human Papillomavirus 9-valent vaccine Hodan Jacob APRN.CNM Work Phone: [facility] 03-01-2010 meningococcal polysaccharide (groups A, C, Y and W-135) diphtheria toxoid conjugate vaccine (MCV4P) Hodan Jacob APRN.CNM Work Phone: [facility] Work Phone: 03-01-2010 meningococcal polysaccharide vaccine (MPSV4) Hodan Jacob APRN.CNM Work Phone: [facility] 03-01-2010 tetanus toxoid, redu ashley diphtheria toxoid, and acellular pertussis vaccine, adsorbed Hodan Jacob APRN.CNM Work Phone: [facility] Work Phone: 03-01-2010 varicella virus vaccine Raquel Jacob APRN.CNM Work Phone: [facility] Work Phone: 02-02-2010 tetanus toxoid, redu ashley diphtheria toxoid, and acellular pertussis vaccine, adsorbed Hodan Jacob APRN.CNM Work Phone: [facility] 11-04-2002 diphtheria, tetanus toxoids and acellular pertussis vaccine, 5 pertussis antigens Hodan Jacob APRN.CNM Work Phone: [facility] 11-04-2002 diphtheria, tetanus toxoids and acellular pertussis vaccine, unspecified formulation Hodan Jacob APRN.CNM Work Phone: [facility] Work Phone: 11-04-2002 measles, mumps and rubella virus vaccine Hodan Jacob APRN.CNM Work Phone: [facility] Work Phone: 11-04-2002 measles, mumps, rube lla, and varicella virus vaccine Hodan Jacob APRN.CNM Work Phone: [facility] 11-04-2002 poliovirus vaccine, inactivated Hodan Jacob APRN.CNM Work Phone: [facility] Work Phone: 10-22-1999 varicella virus vaccine Raquel Jacob APRN.CNM Work Phone: [facility] 10-11-1999 varicella virus vaccine Raquel Jacob TAPING MACHINE OPERATOR.CNM Work Phone: [facility] Work Phone: 06-07-1999 diphtheria, tetanus toxoids and acellular pertussis vaccine, 5 pertussis antigens Hodan Jacob APRN.CNM Work Phone: [facility] 10-26-1998 measles, mumps, rube lla, and varicella virus vaccine Hodan Jacob APRN.CNM Work Phone: [facility] 10-21-1998 haemophilus influenz ae type b conjugate and Hepatitis B vaccine Hodan Jacob APRN.CNM Work Phone: [facility] Work Phone: 10-21-1998 haemophilus influenz ae type b vaccine, HbOC conjugate Hodanespinoza Jacob APRN.CNM Work Phone: [facility] 10-21-1998 hepatitis B immune globulin Hodan Jacob APRN.CNM Work Phone: [facility] 10-21-1998 measles, mumps and rubella virus vaccine Hodan Jacob APRN.CNM Work Phone: [facility] Work Phone: 04-22-1998 diphtheria, tetanus toxoids and acellular pertussis vaccine, 5 pertussis antigens Hodan Jacob APRN.CNM Work Phone: [facility] 04-22-1998 haemophilus influenz ae type b vaccine, HbOC conjugate Hodan Jacob APRN.CNM Work Phone: [facility] 04-22-1998 poliovirus vaccine, inactivated Hodan Jacob TAPING MACHINE OPERATOR.CNM Work Phone: [facility] 01-14-1998 diphtheria, tetanus toxoids and acellular pertussis vaccine, 5 pertussis antigens Hodan Jacob APRN.CNM Work Phone: [facility] 01-14-1998 haemophilus influenz ae type b vaccine, HbOC conjugate Hodan Jacob APRN.CNM Work Phone: [facility] 01-14-1998 poliovirus vaccine, inactivated Hodan Jacob APRN.CNM Work Phone: [facility] 1997 diphtheria, tetanus toxoids and acellular pertussis vaccine, 5 pertussis antigens Hodan Jacob APRN.CNM Work Phone: [facility] 1997 haemophilus influenz ae type b conjugate and Hepatitis B vaccine Hodan Jacob APRN.CNM Work Phone: [facility] Work Phone: 1997 haemophilus influenz ae type b vaccine, HbOC conjugate Hodan Jacob APRN.CNM Work Phone: [facility] 1997 hepatitis B immune globulin Hodan Jacob APRN.CNM Work Phone: [facility] 1997 poliovirus vaccine, inactivated Hodan Jacob TAPING MACHINE OPERATOR.CNM Work Phone: [facility] 1997 hepatitis B immune globulin Hodan Jacob TAPING MACHINE OPERATOR.CNM Work Phone: [facility] 1997 hepatitis B vaccine, pediatric or pediatric/adolescent dosage Hodan Jacob TAPING MACHINE OPERATOR.CNM Work Phone: [facility] Work Phone: Payers Date Payer Category Payer Unknown [id number] 1997 Unknown [id number] 1997 Unknown [id number] Unknown [id number] Unknown [id number] Social History Date Type Detail Facility Start: 11-05-2018 Tobacco smoking stat [facility] Never smoked tobacco [facility] Start: 11-05-2018 Tobacco use and exposure Smokeless tobacco non-user [facility] Start: 08-27-2021 Alcohol intake Current non-dr manager market of alcohol (finding) [facility] Start: 1995 Sex Assigned At Not on file C [facility] Tobacco Use: Tobacco Use: ; C urrent every day smoker. [facility] Female [facility], [facility].; [employer] [facility] Work Phone: Smokes tobacco daily [employer] Work Phone: Note 04-08-2022 Telephone Encounter - [...] Yas Hogan RN documented in this encounter [facility] History of Past illness Narrative 09-13-2011 Note Date & Type Note Facility documented as of this encounter (statuses as of 04/08/2022) [facility] Summary Purpose Family History No Family History Records FoundNo Family History Records FoundNo Family History Records Found Advance Directives No Advanced Directives Records FoundNo Advanced Directives Records FoundNo Advanced Directives Records Found Additional Source Comments INFORMATION SOURCE (unrecogn ized section and content) DATE CREATED AUTHOR AUTHOR'S ORGANIZ ATION 05/06/2023 [facility] DATE CREATED AUTHOR AUTHOR'S ORGANIZ ATION 08/14/2023 [facility] Source Comments (unrecognize d section and content) In the event this informatio n is protected by the Federal Confidentiality of Alcohol and Drug Abuse Patient Records regulations: The Federal rules restrict any use of the information to criminally investigate or prosecute any alcohol or drug abuse patient.[facility] Reason for Visit (unrecogniz ed section [...] BE BASED ON THE PRIMARY CLINICAL RECORDS. [employer] provides no warranty or guarantee of the accuracy or completeness of information in this document.
[2023-09-11 07:36] LABS: hCG Titer Quant., Serum 86 mIU/mL (1-3)
[2023-09-11 08:43] LABS: Progesterone Level 73.77 ng/mL (See Comment)
== END | disposition home or self-care (01) ==
LOC: LAB 06:50
PROVIDERS: Referring Provider Obstetrics & Gynecology Reproductive Endocrinology; Visit Provider Obstetrics & Gynecology Reproductive Endocrinology
DX: Z32.00 Encounter for pregnancy test, result unknown (principal)
CPT/HCPCS: 36415; 84144; 84702

== ENCOUNTER → 2023-09-13 | Outpatient (CLI) | payer OTHER, BC, SELFPAY ==
--- OUTSIDE RECORDS SUMMARY | 2023-09-13 06:54 | XMS RPT_ITS | CCD ---
Author Name Unknown Address [address] [place] [address] Organization [facility] Care Team Providers Care Welder Fitter Apprentice Name Role Phone Sigrid GATES, Zbigniew Corona Primary Care Provider Marco Melvin PA-C Unavailable [phone] Gastroenterology Provider Unavailable Unavai vidal Dunn PA-C, Federico García Unavailable [phone] Chelsea Paez MA Unavailable Unavailable Eric MONTGOMERYN, Maryellen Unavailable Unavailable Natalia DUENAS, Nandini Corona Unavailable Unavaila ble Zaid LIFT SUPERVISOR, Alysia Unavailable Unavailable Minesh LIFT SUPERVISOR, Chin Unavailable Unavailable Unavailable Unavailable YOLA CHILDS Admitting Unavailable MARCO MELVIN Consulting Unavailable YOLA CHILDS Attending Unavailable YOLA CHILDS Primary Care Unavailable PROVIDER, UNKNOWN Consulting Unavailable YOLA CHILDS Attending Unavailable YOLA CHILDS Primary Care Unavailable YOLA CHILDS Admitting Unavailable Allergies Allergy Classification Reported Allergen(s) Allergy Type Date of Onset Reaction(s) Facility (1 source) Azithromycin Drug Allergy 1 Rash [facility] Work Phone: (14 sources) venlafaxine Drug Allergy 9 Other: See Comments [facility] Work Phone: (13 sources) Zithromax *MACROLIDES* [facility], [facility]. Medications Current Medications Medication Drug Class(es) Dates Sig (Normalized) Sig (Original) omeprazole 20 mg delayed release oral capsule (13 sources) Proton Pump Inhibitor Start: 02-15-2023 omeprazole 20 mg capsule,delayed release ; 1 (one) Capsule daily for 90 days Quantity: 90 {Capsule} Refills: 1 Ordered: 15-Feb-2023 IMELDA Melvin Start: 15-Feb-2023 Completed/Discontinued Medications Medication Drug Class(es) Dates Sig (Normalized) Sig (Original) ALPRAZolam 0.5 mg oral tablet (14 sources) Benzodiazepine Start: 04-26-2021 End: 04-26-2022 take [...] [Nicotine dependence, unspecified, uncomplicated] 02-15-2023 Chronic Unclassified (13 sources) Abortions, spontaneous 02-15-2023 Past or Other Problems Problem Classification Problem Date Documented Date Episodic/Chronic Other and unspecified benign neoplasm (1 source) Lipoma (clinical); Translations: [Benign lipomatous neoplasm, unspecified] Onset: 12-09-2013 12-09-2013 Episodic Screening and history of mental health and substance abuse codes (1 source) H/O: depression; Translations: [Personal history of other mental and behavioral disorders] Onset: 11-14-2018 11-14-2018 Episodic Unclassified (13 sources) Well adult female - The patient [...] work well for her GERD. 02-15-2023 Unclassified (13 sources) Skin ulcer/open sore - Symptoms include [...] 1 DM runs in family 09-27-2022 Unclassified (13 sources) Eye symptoms - The onset of [...] wearing her glasses since yesterday. 08-05-2022 Unclassified (13 sources) Cold Symptoms - Symptoms include sore [...] night from coughing ALONSO 04/26/22 BISHNU mack [facility] 05-12-2022 Unclassified (13 sources) Cold Symptoms - Symptoms include nasal [...] an individual with similar symptoms (works at [employer]), but has not been exposed to an [...] she feels stressed or anxious. 04-26-2022 Unclassified (13 sources) Cold Symptoms - Symptoms include nasal [...] of seasonal allergies or asthma. 02-07-2022 Unclassified (13 sources) swollen forehead - pt did get [...] injury Denies any associated pain 12-01-2021 Unclassified (13 sources) Follow up laboratory test results - [...] her infertility at this time 08-03-2021 Unclassified (13 sources) Sore throat - The onset of [...] runny nose or nasal congestion. 05-13-2021 Unclassified (13 sources) Anxiety - The onset of the [...] been taking medication since then. 04-26-2021 Unclassified (13 sources) Abdominal pain - The onset of [...] Body height 156.84 cm Chelsea Paez MA [facility], [facility], [facility] 02-15-2023 15:45-0400 Body mass index (BMI) [Ratio] 28.6 kg/m2 Chelsea Paez MA [employer] [facility]; [employer] [facility]. 02-15-2023 15:45-0400 Body surface area Derived from formula 1.71 m2 Chelsea Paez MA [employer] [facility] [employer] 02-15-2023 15:45-0400 Body weight 70.36 kg Chelsea Paez MA [employer] 02-15-2023 15:45-0400 Diastolic blood pressure 79 mm[Hg] Chelsea Paez MA [employer] [facility]; [employer] Encounters Encounter Date Encounter Type Care Provider Facility Start: 08-14-2023 End: 08-14-2023 ambulatory [facility] Start: 05-03-2023 End: 05-03-2023 ambulatory [facility] Start: 02-15-2023 End: 02-15-2023 Periodic preventive med est patient 18-39 yrs Marco Melvin PA-C Work Phone: [facility] Start: 02-15-2023 End: 02-15-2023 Physical examination Marco J Melvin PA-C Work Phone: [employer] Start: 09-27-2022 End: 09-27-2022 Office outpatient visit 15 minutes Marco Melvin PA-C Work Phone: [employer] Start: 08-05-2022 End: 08-05-2022 Office outpatient visit 15 minutes Marco Melvin PA-C Work Phone: [facility]. Start: 05-12-2022 End: 05-12-2022 Office outpatient visit 15 minutes Marco Melvin PA-C Work Phone: [facility]. Start: 04-26-2022 End: 04-26-2022 Office outpatient visit 25 minutes Marco Melvin PA-C Work Phone: [facility] Start: 04-12-2022 End: 04-12-2022 Telephone follow-up Marco Melvin PA-C Work Phone: [facility] Start: 04-08-2022 Telephone encounter Hodan casas APRN.CNM Work Phone: OB/Gynecology Procedures Date Procedure Procedure Detail Performing Clinician Start: 02-15-2023 End: 02-14-2023 Depression screening Marco Melvin PA-C Work Phone: Start: 02-15-2023 End: 02-14-2023 Scr dep neg, no plan reqd Marco Melvin PA-C Work Phone: Plan of Treatment Date Care Activity Detail Author Start: 03-03-2022 Influenza vaccination INFLUENZA (#1) [facility] Start: 10-17-2021 PAP TESTING PAP TESTING [facility] Start: 07-03-2021 DEPRESSION ASSESSMENT DEPRESSION ASS ESSMENT [facility] Start: 03-01-2020 Urine microalbumin profile DTA P,TDAP,TD (5 - Td or Tdap) [facility] Start: 09-12-2015 HEPATITIS C SCREENING HEPATITIS C SC CARLOS [facility] Start: 09-12-2015 HIV SCREENING HIV SCREENING [facility] Start: 09-12-2011 PEDS TO ADULT TRANSI TION ANNUAL ASSESSMENT PEDS TO ADULT TRANSITION ANNUAL ASSESSMENT [facility] Start: 2009 PEDS TO ADULT TRANSI TION INITIAL DISCUSSION PEDS TO ADULT TRANSITION INITIAL DISCUSSION [facility] Start: 09-12-2007 MENINGOCOCCAL B: Con postdoctoral research fellow based on risk (1 of 2 - Risk Bexsero 2-dose series) MENINGOCOCCAL B: Consider based on risk (1 of 2 - Risk Bexsero 2-dose series) [facility] Start: 03-14-1998 COVID-19 VACCINE (#1) COVID-19 VACCI NE (#1) [facility] Immunizations Immunization Date Immunization Notes Care Provider Fa cility 03-28-2019 influenza virus vacc ine, unspecified formulation Hodan Jacob APRN.CNM Work Phone: [facility] Work Phone: 04-15-2014 influenza, injectabl e, quadrivalent, contains preservative Hodan Jacob COMPTOMETER OPERATOR.CNM Work Phone: [facility] 09-06-2010 human papilloma viru s vaccine, quadrivalent Hodan Jacob COMPTOMETER OPERATOR.CNM Work Phone: [facility] Work Phone: 09-06-2010 Human Papillomavirus 9-valent vaccine Hodan Jacob APRN.CNM Work Phone: [facility] 06-07-2010 human papilloma viru s vaccine, quadrivalent Hodan Jacob COMPTOMETER OPERATOR.CNM Work Phone: [facility] Work Phone: 06-07-2010 Human Papillomavirus 9-valent vaccine Hodan Jacob COMPTOMETER OPERATOR.CNM Work Phone: [facility] 03-01-2010 human papilloma viru s vaccine, quadrivalent Hodan Jacob COMPTOMETER OPERATOR.CNM Work Phone: [facility] Work Phone: 03-01-2010 Human Papillomavirus 9-valent vaccine Hodan Jacob APRN.CNM Work Phone: [facility] 03-01-2010 meningococcal polysaccharide (groups A, C, Y and W-135) diphtheria toxoid conjugate vaccine (MCV4P) Hodan Jacob APRN.CNM Work Phone: [facility] Work Phone: 03-01-2010 meningococcal polysaccharide vaccine (MPSV4) Hodan Jacob APRN.CNM Work Phone: [facility] 03-01-2010 tetanus toxoid, redu ashley diphtheria toxoid, and acellular pertussis vaccine, adsorbed Hodan Jacob APRN.CNM Work Phone: [facility] Work Phone: 03-01-2010 varicella virus vaccine Raquel Jacob APRN.CNM Work Phone: [facility] Work Phone: 02-02-2010 tetanus toxoid, redu ashley diphtheria toxoid, and acellular pertussis vaccine, adsorbed Hodan Jacob APRN.CNM Work Phone: [facility] 11-04-2002 diphtheria, tetanus toxoids and acellular pertussis vaccine, 5 pertussis antigens Hodan Jacob APRN.CNM Work Phone: [facility] 11-04-2002 diphtheria, tetanus toxoids and acellular pertussis vaccine, unspecified formulation Hodan Jacob APRN.CNM Work Phone: [facility] Work Phone: 11-04-2002 measles, mumps and rubella virus vaccine Hodan Jacob APRN.CNM Work Phone: [facility] Work Phone: 11-04-2002 measles, mumps, rube lla, and varicella virus vaccine Hodan Jacob APRN.CNM Work Phone: [facility] 11-04-2002 poliovirus vaccine, inactivated Hodan Jacob APRN.CNM Work Phone: [facility] Work Phone: 10-22-1999 varicella virus vaccine Raquel Jacob APRN.CNM Work Phone: [facility] 10-11-1999 varicella virus vaccine Raquel Jacob COMPTOMETER OPERATOR.CNM Work Phone: [facility] Work Phone: 06-07-1999 diphtheria, tetanus toxoids and acellular pertussis vaccine, 5 pertussis antigens Hodan Jacob APRN.CNM Work Phone: [facility] 10-26-1998 measles, mumps, rube lla, and varicella virus vaccine Hodan Jacob APRN.CNM Work Phone: [facility] 10-21-1998 haemophilus influenz ae type b conjugate and Hepatitis B vaccine Hodan Jacob APRN.CNM Work Phone: [facility] Work Phone: 10-21-1998 haemophilus influenz ae type b vaccine, HbOC conjugate Hodanespinoza Jacob APRN.CNM Work Phone: [facility] 10-21-1998 hepatitis B immune globulin Hodan Jacob APRN.CNM Work Phone: [facility] 10-21-1998 measles, mumps and rubella virus vaccine Hodan Jacob APRN.CNM Work Phone: [facility] Work Phone: 04-22-1998 diphtheria, tetanus toxoids and acellular pertussis vaccine, 5 pertussis antigens Hodan Jacob APRN.CNM Work Phone: [facility] 04-22-1998 haemophilus influenz ae type b vaccine, HbOC conjugate Hodan Jacob APRN.CNM Work Phone: [facility] 04-22-1998 poliovirus vaccine, inactivated Hodan Jacob COMPTOMETER OPERATOR.CNM Work Phone: [facility] 01-14-1998 diphtheria, tetanus toxoids and acellular pertussis vaccine, 5 pertussis antigens Hodan Jacob APRN.CNM Work Phone: [facility] 01-14-1998 haemophilus influenz ae type b vaccine, HbOC conjugate Hodan Jacob APRN.CNM Work Phone: [facility] 01-14-1998 poliovirus vaccine, inactivated Hodan Jacob APRN.CNM Work Phone: [facility] 1997 diphtheria, tetanus toxoids and acellular pertussis vaccine, 5 pertussis antigens Hodan Jacob APRN.CNM Work Phone: [facility] 1997 haemophilus influenz ae type b conjugate and Hepatitis B vaccine Hodan Jacob APRN.CNM Work Phone: [facility] Work Phone: 1997 haemophilus influenz ae type b vaccine, HbOC conjugate Hodan Jacob APRN.CNM Work Phone: [facility] 1997 hepatitis B immune globulin Hodan Jacob APRN.CNM Work Phone: [facility] 1997 poliovirus vaccine, inactivated Hodan Jacob COMPTOMETER OPERATOR.CNM Work Phone: [facility] 1997 hepatitis B immune globulin Hodan Jacob COMPTOMETER OPERATOR.CNM Work Phone: [facility] 1997 hepatitis B vaccine, pediatric or pediatric/adolescent dosage Hodan Jacob COMPTOMETER OPERATOR.CNM Work Phone: [facility] Work Phone: Payers Date Payer Category Payer Unknown [id number] 1997 Unknown [id number] 1997 Unknown [id number] Unknown [id number] Unknown [id number] Social History Date Type Detail Facility Start: 11-05-2018 Tobacco smoking stat [facility] Never smoked tobacco [facility] Start: 11-05-2018 Tobacco use and exposure Smokeless tobacco non-user [facility] Start: 08-27-2021 Alcohol intake Current non-dr mounter automatic of alcohol (finding) [facility] Start: 1995 Sex Assigned At Not on file [facility] Tobacco Use: Tobacco Use: ; C urrent every day smoker. [facility] Female [facility], [facility].; [employer] [facility] Work Phone: Smokes tobacco daily [employer] Work Phone: Note 04-08-2022 Telephone Encounter - [...] Yas Hogan RN documented in this encounter [facility] History of Past illness Narrative 09-13-2011 Note Date & Type Note Facility documented as of this encounter (statuses as of 04/08/2022) [facility] Summary Purpose Family History No Family History Records FoundNo Family History Records FoundNo Family History Records Found Advance Directives No Advanced Directives Records FoundNo Advanced Directives Records FoundNo Advanced Directives Records Found Additional Source Comments INFORMATION SOURCE (unrecogn ized section and content) DATE CREATED AUTHOR AUTHOR'S ORGANIZ ATION 05/06/2023 [facility] DATE CREATED AUTHOR AUTHOR'S ORGANIZ ATION 08/14/2023 [facility] Source Comments (unrecognize d section and content) In the event this informatio n is protected by the Federal Confidentiality of Alcohol and Drug Abuse Patient Records regulations: The Federal rules restrict any use of the information to criminally investigate or prosecute any alcohol or drug abuse patient.[facility] Reason for Visit (unrecogniz ed section [...] BE BASED ON THE PRIMARY CLINICAL RECORDS. [employer] provides no warranty or guarantee of the accuracy or completeness of information in this document.
[2023-09-13 08:14] LABS: hCG Titer Quant., Serum 142 mIU/mL (1-3)
[2023-09-13 08:27] LABS: Estradiol 631.1 pg/mL; Thyroid Stim Hormone (TSH) 1.89 uIU/mL (0.358-3.74)
[2023-09-13 08:34] LABS: Progesterone Level 68.72 ng/mL (See Comment)
== END | disposition home or self-care (01) ==
LOC: LAB 06:52
PROVIDERS: Referring Provider Obstetrics & Gynecology Reproductive Endocrinology; Visit Provider Obstetrics & Gynecology Reproductive Endocrinology
DX: Z32.01 Encounter for pregnancy test, result positive (principal)
CPT/HCPCS: 36415; 82670; 84144; 84443; 84702

== ENCOUNTER → 2023-09-15 | Outpatient (CLI) | payer OTHER, BC, SELFPAY ==
--- OUTSIDE RECORDS SUMMARY | 2023-09-15 06:47 | XMS RPT_ITS | CCD ---
Author Name Unknown Address [address] [place] [address] Organization [facility] Care Team Providers Care Graphic Design Assistant Name Role Phone Sigrid GATES, Zbigniew Corona Primary Care Provider Marco Melvin PA-C Unavailable Gastroenterology Provider Unavailable Unavai vidal Dunn PA-C, Federico García Unavailable Chelsea Paez MA Unavailable Unavailable Eric MONTGOMERYN, Maryellen Unavailable Unavailable Natalia DUENAS, Nandini Corona Unavailable Unavaila ble Zaid WIND PROJECTS SUPERVISOR, Alysia Unavailable Unavailable Minesh WIND PROJECTS SUPERVISOR, Chin Unavailable Unavailable Unavailable Unavailable YOLA CHILDS Admitting Unavailable MARCO MELVIN Consulting Unavailable YOLA CHILDS Attending Unavailable YOLA CHILDS Primary Care Unavailable PROVIDER, UNKNOWN Consulting Unavailable YOLA CHILDS Attending Unavailable YOLA CHILDS Primary Care Unavailable YOLA CHILDS Admitting Unavailable Allergies Allergy Classification Reported Allergen(s) Allergy Type Date of Onset Reaction(s) Facility (1 source) Azithromycin Drug Allergy 1 Rash [facility] Work Phone: (15 sources) venlafaxine Drug Allergy 9 Other: See Comments [facility] Work Phone: (14 sources) Zithromax *MACROLIDES* [facility], [facility]. Medications Current Medications Medication Drug Class(es) Dates Sig (Normalized) Sig (Original) omeprazole 20 mg delayed release oral capsule (14 sources) Proton Pump Inhibitor Start: 02-15-2023 omeprazole 20 mg capsule,delayed release ; 1 (one) Capsule daily for 90 days Quantity: 90 {Capsule} Refills: 1 Ordered: 15-Feb-2023 IMELDA Melvin Start: 15-Feb-2023 Completed/Discontinued Medications Medication Drug Class(es) Dates Sig (Normalized) Sig (Original) ALPRAZolam 0.5 mg oral tablet (15 sources) Benzodiazepine Start: 04-26-2021 End: 04-26-2022 take [...] [Nicotine dependence, unspecified, uncomplicated] 02-15-2023 Chronic Unclassified (14 sources) Abortions, spontaneous 02-15-2023 Past or Other Problems Problem Classification Problem Date Documented Date Episodic/Chronic Other and unspecified benign neoplasm (1 source) Lipoma (clinical); Translations: [Benign lipomatous neoplasm, unspecified] Onset: 12-09-2013 12-09-2013 Episodic Screening and history of mental health and substance abuse codes (1 source) H/O: depression; Translations: [Personal history of other mental and behavioral disorders] Onset: 11-14-2018 11-14-2018 Episodic Unclassified (14 sources) Well adult female - The patient [...] work well for her GERD. 02-15-2023 Unclassified (14 sources) Skin ulcer/open sore - Symptoms include [...] 1 DM runs in family 09-27-2022 Unclassified (14 sources) Eye symptoms - The onset of [...] wearing her glasses since yesterday. 08-05-2022 Unclassified (14 sources) Cold Symptoms - Symptoms include sore [...] night from coughing ALONSO 04/26/22 BISHNU mack [facility] 05-12-2022 Unclassified (14 sources) Cold Symptoms - Symptoms include nasal [...] an individual with similar symptoms (works at [employer]), but has not been exposed to an [...] she feels stressed or anxious. 04-26-2022 Unclassified (14 sources) Cold Symptoms - Symptoms include nasal [...] of seasonal allergies or asthma. 02-07-2022 Unclassified (14 sources) swollen forehead - pt did get [...] injury Denies any associated pain 12-01-2021 Unclassified (14 sources) Follow up laboratory test results - [...] her infertility at this time 08-03-2021 Unclassified (14 sources) Sore throat - The onset of [...] runny nose or nasal congestion. 05-13-2021 Unclassified (14 sources) Anxiety - The onset of the [...] been taking medication since then. 04-26-2021 Unclassified (14 sources) Abdominal pain - The onset of [...] Body height 156.84 cm Chelsea Paez MA [facility], [facility].; [facility], [facility] 02-15-2023 15:45-0400 Body mass index (BMI) [Ratio] 28.6 kg/m2 Chelsea Paez MA [employer] [facility] [facility]. 02-15-2023 15:45-0400 Body surface area Derived from formula 1.71 m2 Chelsea Paez MA [employer] [facility] [employer] 02-15-2023 15:45-0400 Body weight 70.36 kg Chelsea Paez MA [employer] 02-15-2023 15:45-0400 Diastolic blood pressure 79 mm[Hg] Chelsea Paez MA [employer] [facility] Encounters Encounter Date Encounter Type Care Provider Facility Start: 08-14-2023 End: 08-14-2023 ambulatory [facility] Start: 05-03-2023 End: 05-03-2023 ambulatory [facility] Start: 02-15-2023 End: 02-15-2023 Periodic preventive med est patient 18-39 yrs Marco Melvin PA-C Work Phone: [employer]. Start: 02-15-2023 End: 02-15-2023 Physical examination Marco J Melvin PA-C Work Phone: [employer]. Start: 09-27-2022 End: 09-27-2022 Office outpatient visit 15 minutes Marco Melvin PA-C Work Phone: [employer] Start: 08-05-2022 End: 08-05-2022 Office outpatient visit 15 minutes Marco Melvin PA-C Work Phone: [employer]. Start: 05-12-2022 End: 05-12-2022 Office outpatient visit 15 minutes Marco Melvin PA-C Work Phone: [employer]. Start: 04-26-2022 End: 04-26-2022 Office outpatient visit 25 minutes Marco Melvin PA-C Work Phone: [facility] Start: 04-12-2022 End: 04-12-2022 Telephone follow-up Marco Melvin PA-C Work Phone: [facility] Start: 04-08-2022 Telephone encounter Hodan casas APRN.CNM Work Phone: OB/Gynecology Procedures Date Procedure Procedure Detail Performing Clinician Start: 02-15-2023 End: 02-14-2023 Depression screening Marco Melvin PA-C Work Phone: Start: 02-15-2023 End: 02-14-2023 Scr dep neg, no plan reqd Marco Melvin PA-C Work Phone: Plan of Treatment Date Care Activity Detail Author Start: 03-03-2022 Influenza vaccination INFLUENZA (#1) [facility] Start: 10-17-2021 PAP TESTING PAP TESTING [facility] Start: 07-03-2021 DEPRESSION ASSESSMENT DEPRESSION ASS ESSMENT [facility] Start: 03-01-2020 Urine microalbumin profile DTA P,TDAP,TD (5 - Td or Tdap) [facility] Start: 09-12-2015 HEPATITIS C SCREENING HEPATITIS C SC CARLOS [facility] Start: 09-12-2015 HIV SCREENING HIV SCREENING [facility] Start: 09-12-2011 PEDS TO ADULT TRANSI TION ANNUAL ASSESSMENT PEDS TO ADULT TRANSITION ANNUAL ASSESSMENT [facility] Start: 2009 PEDS TO ADULT TRANSI TION INITIAL DISCUSSION PEDS TO ADULT TRANSITION INITIAL DISCUSSION [facility] Start: 09-12-2007 MENINGOCOCCAL B: Con federal appellate law clerk based on risk (1 of 2 - Risk Bexsero 2-dose series) MENINGOCOCCAL B: Consider based on risk (1 of 2 - Risk Bexsero 2-dose series) [facility] Start: 03-14-1998 COVID-19 VACCINE (#1) COVID-19 VACCI NE (#1) [facility] Immunizations Immunization Date Immunization Notes Care Provider Fa cility 03-28-2019 influenza virus vacc ine, unspecified formulation Hodan Jacob APRN.CNM Work Phone: [facility] Work Phone: 04-15-2014 influenza, injectabl e, quadrivalent, contains preservative Hodan Jacob COVER MAT MACHINE OPERATOR.CNM Work Phone: [facility] 09-06-2010 human papilloma viru s vaccine, quadrivalent Hodan Jacob COVER MAT MACHINE OPERATOR.CNM Work Phone: [facility] Work Phone: 09-06-2010 Human Papillomavirus 9-valent vaccine Hodan Jacob APRN.CNM Work Phone: [facility] 06-07-2010 human papilloma viru s vaccine, quadrivalent Hodan Jacob COVER MAT MACHINE OPERATOR.CNM Work Phone: [facility] Work Phone: 06-07-2010 Human Papillomavirus 9-valent vaccine Hodan Jacob COVER MAT MACHINE OPERATOR.CNM Work Phone: [facility] 03-01-2010 human papilloma viru s vaccine, quadrivalent Hodan Jacob COVER MAT MACHINE OPERATOR.CNM Work Phone: [facility] Work Phone: 03-01-2010 Human Papillomavirus 9-valent vaccine Hodan Jacob APRN.CNM Work Phone: [facility] 03-01-2010 meningococcal polysaccharide (groups A, C, Y and W-135) diphtheria toxoid conjugate vaccine (MCV4P) Hodan Jacob APRN.CNM Work Phone: [facility] Work Phone: 03-01-2010 meningococcal polysaccharide vaccine (MPSV4) Hodan Jacob APRN.CNM Work Phone: [facility] 03-01-2010 tetanus toxoid, redu ashley diphtheria toxoid, and acellular pertussis vaccine, adsorbed Hodan Jacob APRN.CNM Work Phone: [facility] Work Phone: 03-01-2010 varicella virus vaccine Raquel Jacob APRN.CNM Work Phone: [facility] Work Phone: 02-02-2010 tetanus toxoid, redu ashley diphtheria toxoid, and acellular pertussis vaccine, adsorbed Hodan Jacob APRN.CNM Work Phone: [facility] 11-04-2002 diphtheria, tetanus toxoids and acellular pertussis vaccine, 5 pertussis antigens Hodan Jacob APRN.CNM Work Phone: [facility] 11-04-2002 diphtheria, tetanus toxoids and acellular pertussis vaccine, unspecified formulation Hodan Jacob APRN.CNM Work Phone: [facility] Work Phone: 11-04-2002 measles, mumps and rubella virus vaccine Hodan Jacob APRN.CNM Work Phone: [facility] Work Phone: 11-04-2002 measles, mumps, rube lla, and varicella virus vaccine Hodan Jacob APRN.CNM Work Phone: [facility] 11-04-2002 poliovirus vaccine, inactivated Hodan Jacob APRN.CNM Work Phone: [facility] Work Phone: 10-22-1999 varicella virus vaccine Raquel Jacob APRN.CNM Work Phone: [facility] 10-11-1999 varicella virus vaccine Raquel Jacob COVER MAT MACHINE OPERATOR.CNM Work Phone: [facility] Work Phone: 06-07-1999 diphtheria, tetanus toxoids and acellular pertussis vaccine, 5 pertussis antigens Hodan Jacob APRN.CNM Work Phone: [facility] 10-26-1998 measles, mumps, rube lla, and varicella virus vaccine Hodan Jacob APRN.CNM Work Phone: [facility] 10-21-1998 haemophilus influenz ae type b conjugate and Hepatitis B vaccine Hodan Jacob APRN.CNM Work Phone: [facility] Work Phone: 10-21-1998 haemophilus influenz ae type b vaccine, HbOC conjugate Hodanespinoza Jacob APRN.CNM Work Phone: [facility] 10-21-1998 hepatitis B immune globulin Hodan Jacob APRN.CNM Work Phone: [facility] 10-21-1998 measles, mumps and rubella virus vaccine Hodan Jacob APRN.CNM Work Phone: [facility] Work Phone: 04-22-1998 diphtheria, tetanus toxoids and acellular pertussis vaccine, 5 pertussis antigens Hodan Jacob APRN.CNM Work Phone: [facility] 04-22-1998 haemophilus influenz ae type b vaccine, HbOC conjugate Hodan Jacob APRN.CNM Work Phone: [facility] 04-22-1998 poliovirus vaccine, inactivated Hodan Jacob COVER MAT MACHINE OPERATOR.CNM Work Phone: [facility] 01-14-1998 diphtheria, tetanus toxoids and acellular pertussis vaccine, 5 pertussis antigens Hodan Jacob APRN.CNM Work Phone: [facility] 01-14-1998 haemophilus influenz ae type b vaccine, HbOC conjugate Hodan Jacob APRN.CNM Work Phone: [facility] 01-14-1998 poliovirus vaccine, inactivated Hodan Jacob APRN.CNM Work Phone: [facility] 1997 diphtheria, tetanus toxoids and acellular pertussis vaccine, 5 pertussis antigens Hodan Jacob APRN.CNM Work Phone: [facility] 1997 haemophilus influenz ae type b conjugate and Hepatitis B vaccine Hodan Jacob APRN.CNM Work Phone: [facility] Work Phone: 1997 haemophilus influenz ae type b vaccine, HbOC conjugate Hodan Jacob APRN.CNM Work Phone: [facility] 1997 hepatitis B immune globulin Hodan Jacob APRN.CNM Work Phone: [facility] 1997 poliovirus vaccine, inactivated Hodan Jacob COVER MAT MACHINE OPERATOR.CNM Work Phone: [facility] 1997 hepatitis B immune globulin Hodan Jacob COVER MAT MACHINE OPERATOR.CNM Work Phone: [facility] 1997 hepatitis B vaccine, pediatric or pediatric/adolescent dosage Hodan Jacob COVER MAT MACHINE OPERATOR.CNM Work Phone: [facility] Work Phone: Payers Date Payer Category Payer Unknown 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 [facility] Female [facility], [facility].; [employer] [facility] Work Phone: Smokes tobacco daily [employer] Work Phone: Note 04-08-2022 Telephone Encounter - Mandy Christianson RN - 04/08/2022 4:38 PM EDTTelephone Encounter - Hodan Jacob APRN.CNM - 04/08/2022 4:23 PM EDTTelephone Encounter - Yas Hgoan RN - 04/08/2022 2:07 PM EDT Note [...] Hogan RN documented in this encounter [facility] History of Past illness Narrative 09-13-2011 Note Date & Type Note Facility documented as of this encounter (statuses as of 04/08/2022) [facility] Summary Purpose Family History No Family History Records FoundNo Family History Records FoundNo Family History Records Found Advance Directives No Advanced Directives Records FoundNo Advanced Directives Records FoundNo Advanced Directives Records Found Additional Source Comments INFORMATION SOURCE (unrecogn ized section and content) DATE CREATED AUTHOR AUTHOR'S ORGANIZ ATION 05/06/2023 [facility] DATE CREATED AUTHOR AUTHOR'S ORGANIZ ATION 08/14/2023 [facility] Source Comments (unrecognize d section and content) In the event this informatio n is protected by the Federal Confidentiality of Alcohol and Drug Abuse Patient Records regulations: The Federal rules restrict any use of the information to criminally investigate or prosecute any alcohol or drug abuse patient.[facility] Reason for Visit (unrecogniz ed section [...] BE BASED ON THE PRIMARY CLINICAL RECORDS. [employer] provides no warranty or guarantee of the accuracy or completeness of information in this document.
[2023-09-15 07:20] LABS: Estradiol 998.4 pg/mL; hCG Titer Quant., Serum 321 mIU/mL (1-3)
[2023-09-15 07:59] LABS: Progesterone Level 53.34 ng/mL (See Comment)
== END | disposition home or self-care (01) ==
LOC: LAB 06:44
PROVIDERS: Referring Provider Obstetrics & Gynecology Reproductive Endocrinology; Visit Provider Obstetrics & Gynecology Reproductive Endocrinology
DX: O09.00 Supervision of pregnancy with history of infertility, unspecified trimester (principal); Z3A.00 Weeks of gestation of pregnancy not specified
CPT/HCPCS: 36415; 82670; 84144; 84702

== ENCOUNTER 2023-09-19 12:13 | Emergency (ER) | payer OTHER, BC, SELFPAY ==
[2023-09-19 12:14] VITALS: BP 148/102; PULSE 112; PULSE 114; RESP 15; RESP 16; TEMP 36.9; O2SAT 100; BMI 31.1
--- NOTE | 2023-09-19 12:22 | EDS_ITS ---
HPI HPI - Female History of Present Illness Chief Complaint: Vag Bld, Preg Informant: patient Pain Pain: Positive for Pelvic Pain Onset: Today Context: Gradual Onset Timing: Continuous Quality: Positive for Dull and - (Pinching at times) Location: LLQ Worsened by: - (Nothing) Relieved by: - (Nothing) Bleeding Issue: Positive for Vaginal bleeding and Passing clots Onset: Today Context: Gradual Onset Timing: Continuous Current Severity: Mild Associated Symptoms Associated Symptoms: Positive for Frequency; Negative for Dysuria Test: Positive P: 1 Ab: 1 Narrative Narrative: Patient presents with vaginal bleeding and left lower abdominal pain that began today. Patient states that has gradually gotten worse. Patient describes her pain as dull but pinching at times. Patient states nothing makes it better and nothing makes it worse. Patient states she noted some vaginal bleeding today and some small clots. Patient denies passing any tissue. Patient recently underwent procedure for in vitro fertilization. Patient states the procedure was done in [place] but she follows with Dr. Velarde locally. [facility] Medical History Abnormal uterine bleeding (AUB) Alcohol use Anxiety Endometrial polyp Heartburn Vapes nicotine containing substance Wears contact lenses Home Medications aspirin 81 mg tablet,delayed release 81 mg PO DAILY 09/08/23 [History Last Taken Unknown] diphenhydramine HCl 25 mg tablet (Benadryl Allergy) 25 mg PO QHS 09/08/23 [History Last Taken Unknown] enoxaparin 30 mg/0.3 mL subcutaneous syringe (Lovenox) 30 mg subcut DAILY 09/08/23 [History Last Taken Unknown] estradiol 2 mg tablet (Estrace) 2 mg PO BID 09/08/23 [History Last Taken Unknown] famotidine 20 mg tablet (Pepcid) 20 mg PO DAILY 09/08/23 [History Last Taken Unknown] loratadine 10 mg tablet (Claritin) 10 mg PO DAILY 09/08/23 [History Last Taken Unknown] metformin 500 mg tablet 500 mg PO DAILY 09/08/23 [History Last Taken Unknown] naltrexone 1.5 mg capsule 3 mg PO 09/08/23 [History Last Taken Unknown] progesterone 50 mg/mL intramuscular oil 50 mg IM DAILY 09/08/23 [History Last Taken Unknown] progesterone micronized 200 mg capsule (Prometrium) 200 mg PO BID 09/08/23 [History Last Taken Unknown] Allergy/AdvReac Type Severity Reaction Status Date / Time azithromycin [From Zithromax] Allergy JOHN Verified 09/19/23 12:16 VIJI'S SYNDROME venlafaxine Allergy Other Verified 09/19/23 12:16 Family History Mother Diabetes Uncle Diabetes Grandmother Diabetes Surgical History History of tonsillectomy and adenoidectomy Hx of lumpectomy S/P D&C (status post dilation and curettage) Social History number of children: 0 current occupational status: employed current occupation: [employer] Smoking Status: Former smoker Electronic Cigarette Use: with nicotine alcohol intake: never substance use type: does not use seatbelt use: always do you feel safe at home: Yes additional social history: - Rene- Chuck ROS ROS ED Constitutional Constitutional ED: Denies chills or fever(s) Eyes Eyes: Denies blurry vision or change in vision ENT ENT ED: Denies rhinorrhea or sore throat Cardiovascular Cardiovascular: Denies chest pain or palpitations Respiratory/Chest Respiratory/Chest: Denies cough or dyspnea Gastrointestinal Gastrointestinal: Reports abdominal pain; Denies nausea or vomiting Genitourinary Genitourinary ED: Reports urinary frequency; Denies dysuria or hematuria Musculoskeletal Musculoskeletal: Denies back pain or neck pain Integumentary Denies abscess or rash Neurologic Neurologic: Denies headache(s) or weakness Allergic/Immunologic Allergic/Immunologic ED: Denies mouth swelling or urticaria EXAM Physical Exam Const Vital Signs: 09/19/23 12:14 09/19/23 12:14 09/19/23 14:14 Temperature 98.4 F 98.4 F Temperature Source Temporal Temporal Pulse Rate 114 H 112 H 98 Respiratory Rate 16 15 16 Blood Pressure 148/102 H 148/102 H 127/83 H Blood Pressure Mean 117 117 97 Pulse Ox 100 100 98 Oxygen Delivery Method Room Air Room Air Room Air Positive well nourished and well developed General Appearance ED: well developed and NAD HEENT Reports moist mucous membranes Neck supple and no JVD Resp normal respiratory effort and clear to auscultation bilaterally Cardio regular rate and regular rhythm GI soft to palpation, non-tender and non-distended Extremity normal to inspection and full ROM Neuro oriented x3, CN's II-XII intact bilaterally and no sensory deficits noted Sensorium / Orientation: alert Motor Exam: strength 5/5 throughout Psych mental status grossly normal MDM MDM MDM Narrative Medical decision making narrative: Differential diagnosis includes ectopic , ovarian cyst, mesenteric adenitis, diverticulitis, urinary tract infection, and viral illness. CBC will be obtained to assess for leukocytosis and anemia. Basic metabolic profile will be obtained to assess for electrolyte abnormality and renal function. Quantitative hCG will be obtained to assess for status. Urinalysis will be obtained to assess for urinary tract infection and hematuria. Transvaginal ultrasound will be obtained to assess for ectopic and ovarian cyst. Lab Data Lab results narrative: CBC was reviewed. There is a slight leukocytosis of 16.0. The remainder was essentially within normal limits. Basic metabolic profile was reviewed. Potassium slightly low at 3.3. Quantitative hCG was reviewed and was 1366. Labs: Laboratory Results - last 24 hr 09/19/23 09/19/23 13:06 14:20 WBC 16.0 H RBC 4.74 Hgb 13.7 Hct 42.8 MCV 90.3 MCH 28.9 MCHC 32.0 RDW Std Deviation 45.1 H RDW Coeff of Ilzbet 13.7 Plt Count 312 MPV 8.7 Immature Gran % (Auto) 0.600 Neut % (Auto) 77.7 H Lymph % (Auto) 16.6 L [place] % (Auto) 4.6 Eos % (Auto) 0.2 Baso % (Auto) 0.3 Absolute Neuts (auto) 12.4 H Absolute Lymphs (auto) 2.66 Nucleated RBC % 0 Sodium 140 Potassium 3.3 L Chloride 106 Carbon Dioxide 23.0 Anion Gap 11 BUN 8 Creatinine 0.65 Estim Creat Clear Calc 126.10 Est GFR (MDRD) Af Amer 141 Est GFR (MDRD) Non-Af 117 BUN/Creatinine Ratio 12.3 Glucose 116 H Calcium 8.7 HCG, Quant 1366 H Urine Color Yellow Urine Clarity Sl. Cloudy Urine pH 8.0 Ur Specific [place] 1.010 Urine Protein Negative Urine Glucose (UA) Normal Urine Ketones Negative Urine Occult Blood 50 H Urine Nitrite Negative Urine Bilirubin Negative Urine Urobilinogen Normal Ur Leukocyte Esterase Negative Urine RBC 5-10 SEEN Urine WBC 0 SEEN Ur Squamous Epith Cells 0 SEEN Urine Bacteria 0 SEEN Urine Mucus 0 SEEN Radiography Diagnostic Testing: Pelvic ultrasound was obtained. There is a single intrauterine gestational sac measuring 5 weeks 1 day. There is a small uterine fibroid. This was interpreted by the radiologist was also independently reviewed by myself. Treatment and Re-Evaluation Narrative: Patient is resting comfortably on reevaluation. Patient was advised of her findings. Patient was instructed to follow-up with her VALIDATION ENGINEER in 2 to 3 days. Patient was instructed to have a repeat quantitative hCG done. Patient was instructed on complete vaginal rest. Patient was instructed return if worse in any way. Patient understood and was agreeable with the plan. All questions were answered. Discharge Plan Triage Chief Complaint: Vag Bld, Preg ED Provider: Karlos Miller Dx/Rx/DC Orders Clinical Impression: Intrauterine , Miscarriage, threatened, early Instructions: Miscarriage Threatened Prescriptions: No Action aspirin 81 mg tablet,delayed release (DR/EC) 81 mg PO DAILY diphenhydramine HCl [Benadryl Allergy] 25 mg tablet 25 mg PO QHS loratadine [Claritin] 10 mg tablet 10 mg PO DAILY famotidine [Pepcid] 20 mg tablet 20 mg PO DAILY enoxaparin [Lovenox] 30 mg/0.3 mL syringe 30 mg subcut DAILY estradiol [Estrace] 2 mg tablet 2 mg PO BID progesterone micronized [Prometrium] 200 mg capsule 200 mg PO BID progesterone 50 mg/mL oil 50 mg IM DAILY naltrexone 1.5 mg capsule 3 mg PO metformin 500 mg tablet 500 mg PO DAILY Primary Care Provider: Anna Zepeda Referrals: Julianna Newman DO [Med Staff - Active Staff] - Keep Marivel appointment Anna Zepeda PA [Primary Care Provider] - Disposition Disposition: Home, Self Care
--- NOTE | 2023-09-19 12:38 | US_ITS ---
STUDY: FIRST TRIMESTER OBSTETRICAL ULTRASOUND REASON FOR EXAM: Female, 28 years old Pelvic pain LMP: Unknown. TECHNIQUE: Transvaginal TECHNICAL QUALITY: Adequate. PRIOR ULTRASOUND: None. FINDINGS: There is visualization of a single gestational sac in a normal intrauterine position. The mean sac diameter (MSD) measures 4.3 mm, indicating an estimated gestational age (EGA) of 5 weeks, 1 days. The gestational sac shape is within normal limits. There is a visualized yolk sac. The yolk sac measures 1.4 mm. The placenta is non-visualized. There is no demonstrated embryo ( pole). The estimated gestation age (EGA) by US is 5 weeks, 1 days. The estimated date of delivery (GERALD) by US is May 20, 2024. The uterus measures 9.1 cm x 5.7 cm x 4.2 cm. There is a 9 mm x 12 mm x 9 mm uterine body fibroid. The cervix is closed. The right ovary measures 2.4 cm x 1.7 cm x 2.5 cm. There is no right ovarian cyst. There is no visualized right adnexal mass or complex lesion. The left ovary measures 3.3 cm x 2.7 cm x 2.5 cm. There is no left ovarian cyst. There is no visualized left adnexal mass or complex lesion. There is no fluid in the cul de sac. US/Transvaginal w/Preg US IMPRESSION: Intrauterine gestational sac with mean gestational age of 5 weeks and 1 day. Small uterine fibroid. Sonographic follow-up recommended. Electronically Signed: Mauro Garza MD at 14:33 EDT ,
[2023-09-19 13:11] LABS: Absolute Lymphocyte Count 2.66 X10^3/uL (0.83-4.51); Absolute Neutrophil Count 12.4 X10^3/uL (2.0-7.7); Basophil# 0.04 X10^3/uL; Basophil% 0.3 % (0-1); Eosinophil# 0.03 X10^3/uL; Eosinophils% 0.2 % (0-5); Hematocrit 42.8 % (37-47); Hemoglobin 13.7 g/dL (12.0-15.0); Lymphocyte # 2.66 X10^3/ul (0.83-4.51); Lymphocyte % 16.6 % (19-41); Mean Corpuscular Hgb 28.9 pg (27.0-32.0); Mean Corpuscular Volume 90.3 fL (81-99); Mean Platelet Vol. 8.7 fl (6.2-12.0); Monocyte# 0.73 X10^3/uL; Monocyte% 4.6 % (0-10); NRBC Flagged by Analyzer 0 % (0-5); Neutrophil # 12.42 X10^3/uL (2.7-7.7); Neutrophil % 77.7 % (47-70); Platelet Count 312 K/mm3 (150-450); RBC Distribution Width CV 13.7 % (11.6-14.6); RBC Distribution Width SD 45.1 fl (35.1-43.9); Red Blood Count 4.74 M/mm3 (4.2-5.4)
[2023-09-19] MEDS: 0.9% Normal Saline (1000mL) 1,000 ML 1000 ML IV (13:11)
[2023-09-19 13:23] LABS: Anion Gap 11 (5-15); BUN 8 mg/dL (7-18); BUN/Creat Ratio 12.3 RATIO (10-20); Calcium,Total 8.7 mg/dL (8.5-10.1); Chloride 106 mmol/L (98-107); Creatinine, Serum 0.65 mg/dL (0.55-1.02); EST Glomerular Filtration Rate 117 mL/min (>60); Est Glom Filt Rate - Afr Amer 141 mL/min (>60); Glucose 116 mg/dL (74-106); Potassium 3.3 mmol/L (3.5-5.1); Sodium Level 140 mmol/L (136-145)
[2023-09-19 13:43] LABS: hCG Titer Quant., Serum 1366 mIU/mL (1-3)
[2023-09-19 14:14] VITALS: BP 127/83; PULSE 98; RESP 16; O2SAT 98
[2023-09-19 14:28] LABS: Bacteria 0 SEEN /hpf (None Seen); Mucous, Urine 0 SEEN /hpf (<or=2+); Squamous Epithelial Cells - UA 0 SEEN /hpf (5-10); White Blood Cells 0 SEEN /hpf (0-5)
[2023-09-19 14:31] LABS: Color, Urine Yellow (Yellow); Glucose, Dipstick Normal (Normal); Ketone-Dipstick Negative (Negative); Leukocyte Esterase-Dipstick Negative /ul (Negative); Nitrite-Dipstick Negative (Negative); Occult Blood-Urine 50 /ul (Negative); Protein-Dipstick Negative (Negative); Urine Bilirubin Dipstick Negative (Negative); Urine Clarity Sl. Cloudy (Clear); Urine Urobilinogen Normal (Normal)
[2023-09-19 14:39] LABS: Red Blood Cells-Urine 5-10 SEEN /hpf (0-5)
[2023-09-19 16:00] VITALS: BP 126/77; PULSE 72; RESP 16; TEMP 36.3; O2SAT 98
[2023-09-19 16:39] VITALS: BP 129/82; PULSE 76; RESP 15; TEMP 36.4; O2SAT 99
== END 2023-09-19 16:39 | disposition home or self-care (01) ==
PROVIDERS: Emergency Provider Emergency Medicine; Visit Provider Emergency Medicine
DX: O20.0 Threatened abortion (principal); R10.2 Pelvic and perineal pain; Z87.891 Personal history of nicotine dependence; O99.891 Other specified diseases and conditions complicating pregnancy; Z79.82 Long term (current) use of aspirin; Z79.84 Long term (current) use of oral hypoglycemic drugs; Z79.899 Other long term (current) drug therapy; R35.0 Frequency of micturition; Z3A.01 Less than 8 weeks gestation of pregnancy
CPT/HCPCS: 76817; 80048; 81001; 84702; 85025; 96360; 99283; J7030; A4216

== ENCOUNTER → 2023-09-22 | Outpatient (CLI) | payer OTHER, BC, SELFPAY ==
--- NOTE | 2023-09-22 07:38 | US_ITS ---
STUDY: FIRST TRIMESTER OBSTETRICAL ULTRASOUND REASON FOR EXAM: Female, 28 years old WITH HX OF INFERTILITY LMP: August 14, 2023. TECHNIQUE: Transvaginal TECHNICAL QUALITY: Adequate. PRIOR ULTRASOUND: Comparison is made with prior study September 19, 2023. FINDINGS: There is visualization of a single gestational sac in a normal intrauterine position. The mean sac diameter (MSD) measures 7 mm, indicating an estimated gestational age (EGA) of 5 weeks, 3 days. The gestational sac shape is within normal limits. There is a visualized yolk sac. The yolk sac measures 3 mm. The placenta is non-visualized. There is visualization of a live embryo. The crown-rump length (CRL) measures 2.4 mm, indicating an estimated gestational age (EGA) of 6 weeks, 0 days. There is demonstrated cardiac activity with a heart rate of bpm. The estimated gestation age (EGA) by LMP is 5 weeks, 4 days. The estimated date of delivery (GERALD) by LMP is May 20, 2024. The estimated gestation age (EGA) by US is 5 weeks, 5 days. The estimated date of delivery (GERALD) by US is May 19, 2024. The uterus measures 8.6 cm x 5.4 cm x 4 cm. There is a 1.2 cm x 0.9 cm x 0.8 cm pedunculated fibroid along the right-sided uterus. There is also evidence of a 5 mm x 5 mm x 3 mm subchorionic bleed. The cervix is closed. The right ovary measures 2.9 cm x 2.4 cm x 2.2 cm. There is no right ovarian cyst. There is no visualized right adnexal mass or complex lesion. The left ovary measures 3.9 cm x 2.4 cm x 2.7 cm. There is no left ovarian cyst. There is no visualized left adnexal mass or complex lesion. There is no fluid in the cul de sac. US/Transvaginal w/Preg US IMPRESSION: Single live intrauterine gestation with a mean gestational age of 5 weeks and 5 days. Small subchorionic bleed. Small pedunculated fibroid along the right side of the body of the uterus. Electronically Signed: Mauro Garza MD at 9:01 EDT ,
[2023-09-22 09:00] LABS: hCG Titer Quant., Serum 2686 mIU/mL (1-3)
[2023-09-22 12:22] LABS: Progesterone Level 61.23 ng/mL (See Comment)
[2023-09-22 17:06] LABS: Estradiol 839.2 pg/mL
== END | disposition home or self-care (01) ==
LOC: US 07:21 → OPUS 07:26
PROVIDERS: Referring Provider Obstetrics & Gynecology Reproductive Endocrinology; Visit Provider Obstetrics & Gynecology Reproductive Endocrinology
DX: O09.00 Supervision of pregnancy with history of infertility, unspecified trimester (principal); Z3A.00 Weeks of gestation of pregnancy not specified
CPT/HCPCS: 36415; 76817; 82670; 84144; 84702

== ENCOUNTER → 2023-09-29 | Outpatient (CLI) | payer OTHER, BC, SELFPAY ==
--- NOTE | 2023-09-29 07:44 | US_ITS ---
STUDY: FIRST TRIMESTER OBSTETRICAL ULTRASOUND REASON FOR EXAM: Female, 28 years old Supervision of with history of infertility, unspecified LMP: August 13, 2023. TECHNIQUE: Transvaginal TECHNICAL QUALITY: Adequate. PRIOR ULTRASOUND: None. FINDINGS: There is visualization of a single gestational sac in a normal intrauterine position. The mean sac diameter (MSD) measures 1.28 cm, indicating an estimated gestational age (EGA) of 6 weeks, 1 days. The gestational sac shape is within normal limits. There is a visualized yolk sac. The yolk sac measures 2.2 mm. The placenta is non-visualized. There is visualization of a live embryo. The crown-rump length (CRL) measures 7 mm, indicating an estimated gestational age (EGA) of 6 weeks, 5 days. There is demonstrated cardiac activity with a heart rate of 130 bpm. The estimated gestation age (EGA) by LMP is 6 weeks, 5 days. The estimated date of delivery (GERALD) by LMP is May 19, 2024. The estimated gestation age (EGA) by US is 6 weeks, 3 days. The estimated date of delivery (GERALD) by US is May 21, 2024. The uterus measures 8.2 cm x 4.7 cm x 4.3 cm. Stable small left-sided uterine fibroid. The previously seen small subchorionic bleed is not visualized at this time. The cervix is closed. The right ovary measures 3.2 cm x 2.2 cm x 1.8 cm. There is no right ovarian cyst. There is no visualized right adnexal mass or complex lesion. The left ovary measures 3.6 cm x 2.8 cm x 2.5 cm. There is no left ovarian cyst. There is no visualized left adnexal mass or complex lesion. There is no fluid in the cul de sac. US/Transvaginal w/Preg US IMPRESSION: Single live intrauterine gestation with a mean gestational age of 6 weeks and 3 days. Electronically Signed: Mauro Garza MD at 9:53 EDT ,
[2023-09-29 08:08] LABS: Estradiol 911.3 pg/mL
[2023-09-29 08:26] LABS: hCG Titer Quant., Serum 10560 mIU/mL (1-3)
[2023-09-29 08:46] LABS: Progesterone Level 51.51 ng/mL (See Comment)
== END | disposition home or self-care (01) ==
LOC: US 07:43
PROVIDERS: Referring Provider Obstetrics & Gynecology Reproductive Endocrinology; Visit Provider Obstetrics & Gynecology Reproductive Endocrinology
DX: O09.00 Supervision of pregnancy with history of infertility, unspecified trimester (principal); Z3A.00 Weeks of gestation of pregnancy not specified
CPT/HCPCS: 36415; 76817; 82670; 84144; 84702

== ENCOUNTER → 2023-10-12 | Outpatient (CLI) | payer OTHER, SELFPAY ==
[2023-10-16 00:06] LABS: Chlamydia By Nucleic Acid AMP Negative (Negative); Gonococcus By Nucleic Acid AMP Negative (Negative)
[2023-10-18 19:46] LABS: HPV Reflexed? NOT INDICATED
== END | disposition home or self-care (01) ==
PROVIDERS: Obstetrics & Gynecology; Visit Provider Obstetrics & Gynecology
DX: O09.90 Supervision of high risk pregnancy, unspecified, unspecified trimester (principal); Z3A.00 Weeks of gestation of pregnancy not specified
CPT/HCPCS: 87491; 87591; 88175; G0145

== ENCOUNTER → 2023-10-25 | Outpatient (CLI) | payer OTHER, SELFPAY ==
[2023-10-25 09:26] LABS: Absolute Lymphocyte Count 2.65 X10^3/uL (0.83-4.51); Absolute Neutrophil Count 6.1 X10^3/uL (2.0-7.7); Basophil# 0.04 X10^3/uL; Basophil% 0.4 % (0-1); Eosinophil# 0.15 X10^3/uL; Eosinophils% 1.6 % (0-5); Hematocrit 40.5 % (37-47); Hemoglobin 13.4 g/dL (12.0-15.0); Lymphocyte # 2.65 X10^3/ul (0.83-4.51); Lymphocyte % 27.5 % (19-41); Mean Corp Hgb Conc 33.1 g/dL (32-36); Mean Corpuscular Hgb 29.3 pg (27.0-32.0); Mean Corpuscular Volume 88.4 fL (81-99); Mean Platelet Vol. 8.7 fl (6.2-12.0); Monocyte% 7.3 % (0-10); NRBC Flagged by Analyzer 0 % (0-5); Neutrophil # 6.05 X10^3/uL (2.7-7.7); Neutrophil % 62.8 % (47-70); Platelet Count 286 K/mm3 (150-450); RBC Distribution Width CV 13.9 % (11.6-14.6); RBC Distribution Width SD 44.7 fl (35.1-43.9); Red Blood Count 4.58 M/mm3 (4.2-5.4); White Blood Count 9.6 K/mm3 (4.4-11.0)
[2023-10-25 09:46] LABS: Hemoglobin A1c 5.1 % (3.8-5.6)
[2023-10-25 10:24] LABS: HIV - WCH Non-Reactive (Nonreactive); Hepatitis B Surface Antigen Non-Reactive (Nonreactive); Hepatitis C Antibody Non-Reactive (Nonreactive); Rubella IgG Reactive (Nonreactive); Syphilis Antibodies Non-reactive
== END | disposition home or self-care (01) ==
LOC: PAVLAB 09:07
PROVIDERS: Obstetrics & Gynecology; Referring Provider Nurse Practitioner Women's Health; Visit Provider Nurse Practitioner Women's Health
DX: O09.90 Supervision of high risk pregnancy, unspecified, unspecified trimester (principal); Z3A.00 Weeks of gestation of pregnancy not specified
CPT/HCPCS: 36415; 83036; 85025; 86703; 86762; 86780; 86803; 86850; 86900; 86901; 87086; 87340

== ENCOUNTER 2023-12-10 21:52 | Emergency (ER) | payer OTHER, SELFPAY ==
[2023-12-10 21:53] VITALS: BP 109/82; PULSE 100; RESP 18; TEMP 36.6; O2SAT 99; BMI 34.2
--- NOTE | 2023-12-10 22:28 | EDS_ITS ---
HPI History of Present Illness Chief Complaint: General Illness Detail of Chief Complaint: Left lower abdomen pressure Informant: patient Narrative Narrative: Patient presents to the emergency department complaint of some discomfort to the left lower abdomen that she has had throughout the day today since around 8 AM. She has felt some pressure with urination. Patient is about 17 weeks . She is G3, P0 with 2 other miscarriages. She had to have IVF to have this . Last ultrasound was about 3 weeks ago and was unremarkable. She has history of PCOS. She denies fevers chills or sweats. She has had no vaginal bleeding. Patient has history of some chronic diarrhea has had 3 watery stools today which is not unusual for her. She denies blood in her stool. [facility] Medical History Genetic testing of female Wears contact lenses Anxiety Alcohol use Heartburn Vapes nicotine containing substance Endometrial polyp Abnormal uterine bleeding (AUB) Home Medications ?Medication ?Instructions ?Recorded ?Last Taken ?Type multivitamin no.47-iron fum 27 cap PO 10/03/23 Unknown History mg-folate no.1 1 mg-dha 300 mg capsule (PNV-DHA) naltrexone 1.5 mg capsule 3 mg PO DAILY 10/03/23 Unknown History omeprazole 20 mg tablet,delayed 20 mg PO DAILY 10/03/23 Unknown History release diphenhydramine HCl 25 mg capsule 25 mg PO QHS PRN 11/21/23 Unknown History (Benadryl) loratadine 10 mg tablet (Claritin) 10 mg PO DAILY 11/21/23 Unknown History Allergy/AdvReac Type Severity Reaction Status Date / Time Latex, Natural Rubber Allergy Intermediate Other Verified 11/21/23 08:33 azithromycin (From Zithromax) Allergy JOHN Verified 11/21/23 08:33 VIJI'S SYNDROME venlafaxine Allergy Other Verified 11/21/23 08:33 Family History Mother Diabetes Uncle Diabetes Grandmother Diabetes Surgical History [place] teeth extracted History of hysteroscopy Status post laparoscopy S/P D&C (status post dilation and curettage) Hx of lumpectomy History of tonsillectomy and adenoidectomy Social History adopted: No household members: spouse number of children: 0 current occupational status: employed current occupation: [employer] current occupational exposures/hazards: No pets and animals: Yes (Avoid litterbox) pets and animals: cat(s) and dog(s) history of recent travel: Yes ([facility]) out of state: Yes out of country: No sexually active: Yes Smoking Status: Former smoker Electronic Cigarette Use: with nicotine alcohol intake: never substance use type: does not use well-balanced diet: daily or most days caffeine: No eating out: 1-3 times/week during the past year weight has: increased > 10 lbs what type of physical activity do you participate in: none jessica/yazidi: Rastafarian seatbelt use: always do you feel safe at home: Yes additional social history: - Andrea Woods ROS ROS ED Review of Systems ROS Unobtainable: other Constitutional Constitutional ED: Reports lethargy; Denies chills, fever(s), sweats or weight loss Eyes Eyes: Denies blurry vision, change in vision or diplopia ENT ENT ED: Denies rhinorrhea or sore throat Cardiovascular Cardiovascular: Denies chest pain, orthopnea or racing heartbeat Respiratory/Chest Respiratory/Chest: Denies cough, dyspnea, dyspnea on exertion, orthopnea or sputum Gastrointestinal Gastrointestinal: Reports abdominal pain; Denies diarrhea, nausea or vomiting Genitourinary Genitourinary ED: Denies dysuria, hematuria or urinary frequency Musculoskeletal Musculoskeletal: Denies arthralgias, back pain, myalgias or neck pain Integumentary Denies abscess, Abrasions or rash Neurologic Neurologic: Denies headache(s) or weakness Psychiatric Psychiatric: Denies anxiety, depression or suicidal thoughts Endocrine Endocrinology: Denies polydipsia, polyphagia or polyuria Hematologic/Lymphatic Hematologic/Lymphatic: Denies easy bleeding, easy bruising or lymphadenopathy Allergic/Immunologic Allergic/Immunologic ED: Denies mouth swelling, tongue swelling or urticaria EXAM Physical Exam Const Vital Signs: 12/10/23 21:53 12/10/23 22:19 Temperature 97.9 F Temperature Source Temporal Pulse Rate 100 Respiratory Rate 18 Respiratory Effort Normal Non-Labored Respiratory Pattern Normal Blood Pressure 109/82 H Blood Pressure Mean 91 Pulse Ox 99 Oxygen Delivery Method Room Air Positive well nourished and well developed General Appearance ED: well developed and NAD HEENT Reports TM's clear and moist mucous membranes normocephalic and atraumatic; Negative for trauma or tenderness Tympanic Membrane ED: Yes TM's clear Eyes PERRL and EOMs intact bilaterally General Eye ED: Negative for pale conjunctiva or scleral icterus Neck no lymphadenopathy, supple and no JVD General: Negative for tenderness Chest Wall inspection of chest normal and palpation of chest normal Chest: Negative for tenderness Resp normal respiratory effort and clear to auscultation bilaterally Effort and Inspection: Negative for respiratory distress or pain with movement Auscultation: Negative for rhonchi, wheezes or diminished lung sounds Cardio regular rate, regular rhythm, S1 normal heart sound, S2 normal heart sound and no murmurs Peripheral Pulses: pulses 2+ throughout GI normal to inspection, nondistended, normoactive bowel sounds, soft to palpation, non-tender and no masses GI Narrative: Mild diffuse tenderness over the suprapubic region and left lower quadrant. She has no tenderness over the right lower quadrant. There is no rebound, rigidity, or pineal signs. No masses palpated. Fundal height is about 3 cm below the umb ilicus. Back/Spine no CVA tenderness and no thoracic nor lumbar tenderness Extremity normal to inspection General Extremety ED: Negative for edema General Extremity: Negative for edema Neuro oriented x3, CN's II-XII intact bilaterally, no sensory deficits noted and gait normal Sensorium / Orientation: awake, alert, oriented to person, oriented to place and oriented to time Motor Exam: strength 5/5 throughout and strength abnormal Psych mental status grossly normal Skin no rashes or lesions noted and no wounds MDM MDM MDM Narrative Medical decision making narrative: Patient presents with left lower abdomen discomfort and pressure. She is 17 weeks . She denies vaginal bleeding. In the differential would be UTI versus round ligament pain versus other etiology. An IV line established. CBC with differential obtained showed a white count of 8.0 with hemoglobin 12 and platelet count of 252. Chemistries unremarkable. Urinalysis at 25 leukocyte Estrace and 5-10 RBCs and 0-5 WBCs as well as +2 bacteria. Urine culture sent. heart tones were 150. Discussed case with nurse steward/stewardess banquet Jose who is covering for Dr. Crow Paulson and they asked that patient call the office with an update and if her symptoms are ongoing and they will work her in this week. She is advised to return if worsening pain, fever, vomiting, or condition worsening way. At this point I do not think she needs an emergent ultrasound. Patient not viable. She is not bleeding. I do not feel she has a surgical abdomen. I do not think any further imaging is indicated. Lab Data Labs: Laboratory Results - last 24 hr 12/10/23 12/10/23 22:30 22:40 WBC 8.0 RBC 4.12 L Hgb 12.4 Hct 37.1 MCV 90.0 MCH 30.1 MCHC 33.4 RDW Std Deviation 42.5 RDW Coeff of Lizbet 12.9 Plt Count 252 MPV 9.3 Immature Gran % (Auto) 0.400 Neut % (Auto) 56.9 Lymph % (Auto) 33.3 Orange % (Auto) 7.7 Eos % (Auto) 1.4 Baso % (Auto) 0.3 Absolute Neuts (auto) 4.5 Absolute Lymphs (auto) 2.65 Nucleated RBC % 0 Sodium 138 Potassium 3.5 Chloride 107 Carbon Dioxide 25.0 Anion Gap 6 BUN 7 Creatinine 0.38 L Estim Creat Clear Calc 226.67 Est GFR (MDRD) Af Amer 267 Est GFR (MDRD) Non-Af 221 BUN/Creatinine Ratio 18.7 Glucose 81 Calcium 9.5 Urine Color Yellow Urine Clarity Clear Urine pH 6.5 Ur Specific [place] 1.015 Urine Protein Negative Urine Glucose (UA) Normal Urine Ketones Negative Urine Occult Blood 150 H Urine Nitrite Negative Urine Bilirubin Negative Urine Urobilinogen Normal Ur Leukocyte Esterase 25 H Urine RBC 5-10 SEEN Urine WBC 0-5 SEEN Ur Squamous Epith Cells 0-5 SEEN Urine Bacteria 2+ Urine Mucus 0 SEEN Discharge Plan Triage Chief Complaint: General Illness ED Provider: Fern Marroquin Dx/Rx/DC Orders Clinical Impression: Abdominal pain Instructions: ED Abdominal Pain Unkn Cause Fem, ED Pain, Acute, Uncertain Cause Prescriptions: No Action naltrexone 1.5 mg capsule 3 mg PO DAILY omeprazole 20 mg tablet,delayed release (DR/EC) 20 mg PO DAILY PNV-DHA 27 mg iron-1 mg -300 mg capsule PO loratadine [Claritin] 10 mg tablet 10 mg PO DAILY diphenhydramine HCl [Benadryl] 25 mg capsule 25 mg PO QHS PRN Primary Care Provider: Anna Zepeda Referrals: Julianna Newman DO [Med Staff - Active Staff] - 1-2 Days if not improving Anna Zepeda PA [Primary Care Provider] - Print Language: Polish Disposition Disposition: Home, Self Care
[2023-12-10 22:45] LABS: Mucous, Urine 0 SEEN /hpf (<or=2+)
[2023-12-10 22:48] LABS: Absolute Lymphocyte Count 2.65 X10^3/uL (0.83-4.51); Absolute Neutrophil Count 4.5 X10^3/uL (2.0-7.7); Basophil# 0.02 X10^3/uL; Basophil% 0.3 % (0-1); Eosinophil# 0.11 X10^3/uL; Eosinophils% 1.4 % (0-5); Hematocrit 37.1 % (37-47); Hemoglobin 12.4 g/dL (12.0-15.0); Lymphocyte # 2.65 X10^3/ul (0.83-4.51); Lymphocyte % 33.3 % (19-41); Mean Corp Hgb Conc 33.4 g/dL (32-36); Mean Corpuscular Hgb 30.1 pg (27.0-32.0); Mean Platelet Vol. 9.3 fl (6.2-12.0); Monocyte# 0.61 X10^3/uL; Monocyte% 7.7 % (0-10); NRBC Flagged by Analyzer 0 % (0-5); Neutrophil # 4.54 X10^3/uL (2.7-7.7); Neutrophil % 56.9 % (47-70); Platelet Count 252 K/mm3 (150-450); RBC Distribution Width CV 12.9 % (11.6-14.6); RBC Distribution Width SD 42.5 fl (35.1-43.9); Red Blood Count 4.12 M/mm3 (4.2-5.4)
[2023-12-10 22:49] LABS: Color, Urine Yellow (Yellow); Glucose, Dipstick Normal (Normal); Ketone-Dipstick Negative (Negative); Leukocyte Esterase-Dipstick 25 /ul (Negative); Nitrite-Dipstick Negative (Negative); Occult Blood-Urine 150 /ul (Negative); Protein-Dipstick Negative (Negative); Specific Gravity, Urine 1.015 (1.002-1.030); Urine Bilirubin Dipstick Negative (Negative); Urine Clarity Clear (Clear); Urine Urobilinogen Normal (Normal); Urine pH 6.5 (5.0 - 8.0)
[2023-12-10 22:54] LABS: Bacteria 2+ /hpf (None Seen); Squamous Epithelial Cells - UA 0-5 SEEN /hpf (5-10); White Blood Cells 0-5 SEEN /hpf (0-5)
[2023-12-10 22:56] LABS: Red Blood Cells-Urine 5-10 SEEN /hpf (0-5)
[2023-12-10 22:59] LABS: Anion Gap 6 (5-15); BUN 7 mg/dL (7-18); BUN/Creat Ratio 18.7 RATIO (10-20); Calcium,Total 9.5 mg/dL (8.5-10.1); Chloride 107 mmol/L (98-107); Creatinine, Serum 0.38 mg/dL (0.55-1.02); EST Glomerular Filtration Rate 221 mL/min (>60); Est Glom Filt Rate - Afr Amer 267 mL/min (>60); Estimated Creatinine Clearance 226.67 ml/min; Glucose 81 mg/dL (74-106); Potassium 3.5 mmol/L (3.5-5.1); Sodium Level 138 mmol/L (136-145)
[2023-12-10] MEDS: 0.9% Normal Saline (1000mL) 1,000 ML 999 ML IV (23:02)
[2023-12-10 23:53] VITALS: BP 112/70; PULSE 86; RESP 15; TEMP 36.7; O2SAT 96
[2023-12-11 00:11] VITALS: BP 112/70; PULSE 86; RESP 15; TEMP 36.2; O2SAT 96
== END 2023-12-11 00:16 | disposition home or self-care (01) ==
PROVIDERS: Emergency Provider Emergency Medicine; Visit Provider Emergency Medicine
DX: O99.891 Other specified diseases and conditions complicating pregnancy (principal); Z3A.17 17 weeks gestation of pregnancy; Z87.891 Personal history of nicotine dependence; O09.812 Supervision of pregnancy resulting from assisted reproductive technology, second trimester; R10.32 Left lower quadrant pain
CPT/HCPCS: 80048; 81001; 85025; 87086; 96360; 99283; J7030; A4216

== ENCOUNTER 2024-01-26 21:29 | Outpatient (CLI) | payer OTHER, SELFPAY ==
[2024-01-26 21:44] VITALS: PULSE 99; O2SAT 96
[2024-01-26 21:49] VITALS: PULSE 94; O2SAT 96
[2024-01-26 21:54] VITALS: PULSE 98; O2SAT 96
[2024-01-26 21:55] VITALS: BMI 34.4
[2024-01-26 21:58] VITALS: RESP 16; TEMP 36.9
[2024-01-26 21:59] VITALS: BP 123/73; PULSE 89; O2SAT 95
--- NOTE | 2024-01-27 10:23 | OB.TRI.HP_ITS ---
HPI - General General Date of Service: 01/26/24 HPI Narrative JOSE EDWARD, is a 28 F who presents at 23.6 weeks for concerns for decrease movement, has not felt baby move for multiple hours and present for wellbeing check. Maternal Data Information GERALD Calculator Estimated Delivery Date Method Current WG Current Estimate 05/18/24 LMP (Certain) 24w 0d PFSH PFSH Medical History Genetic testing of female Wears contact lenses Anxiety Alcohol use Heartburn Vapes nicotine containing substance Endometrial polyp Abnormal uterine bleeding (AUB) Home Medications ?Medication ?Instructions ?Recorded ?Last Taken ?Type naltrexone 1.5 mg capsule 3 mg PO DAILY 10/03/23 Unknown History omeprazole 20 mg tablet,delayed 20 mg PO DAILY 10/03/23 Unknown History release diphenhydramine HCl 25 mg capsule 25 mg PO QHS PRN allergy symptoms 11/21/23 Unknown History (Benadryl) loratadine 10 mg tablet (Claritin) 10 mg PO DAILY 11/21/23 Unknown History multivitamin no.47-iron fum 27 1 cap PO DAILY #30 caps 12/15/23 Unknown Rx mg-folate no.1 1 mg-dha 300 mg capsule (PNV-DHA) Allergy/AdvReac Type Severity Reaction Status Date / Time Latex, Natural Rubber Allergy Intermediate Other Verified 01/26/24 21:53 azithromycin (From Zithromax) Allergy JOHN Verified 01/26/24 21:53 VIJI'S SYNDROME venlafaxine Allergy Other Verified 01/26/24 21:53 Family History Mother Diabetes Uncle Diabetes Grandmother Diabetes Surgical History [place] teeth extracted History of hysteroscopy Status post laparoscopy S/P D&C (status post dilation and curettage) Hx of lumpectomy History of tonsillectomy and adenoidectomy Social History adopted: No household members: spouse number of children: 0 current occupational status: employed current occupation: [employer] current occupational exposures/hazards: No pets and animals: Yes (Avoid litterbox) pets and animals: cat(s) and dog(s) history of recent travel: Yes ([facility]) out of state: Yes out of country: No sexually active: Yes Smoking Status: Former smoker Electronic Cigarette Use: with nicotine alcohol intake: never substance use type: does not use well-balanced diet: daily or most days caffeine: No eating out: 1-3 times/week during the past year weight has: increased > 10 lbs what type of physical activity do you participate in: none jessica/amish: Oriental Orthodox seatbelt use: always do you feel safe at home: Yes additional social history: - Andrea Woods History 3 Elective abortions Hx Para 0 Spontaneous abortions 2 Hx # Term Pregnancies Ectopic pregnancies Hx # Pregnancies Multiple births # of living children 0 Past Pregnancies Del. Date Name GA/Weeks Outcome Route Bth Weight Gen Labor Lgth Anesthesia Del Locatn Provider FOB 01/15/18 7 spontaneous 08/05/23 chemical 5 Visit Details Expected Delivery Route/Plan Labor Preferences- CB/BF classes: [] labor support person: [] labor intervention preferences: [] pain management options preferred: [] cut cord/dad catch: [] : [] PP control planned: [] discussed possible routes of delivery and associated risks: [] special requests: [] Plans Covid status: [] Flu vaccine: declined Tdap vaccine: [] Rhogam: [] LARC form signed: [] Problem list reviewed and updated with the most current plan of care details and appropriate orders placed. Relevant counseling for the gestational age provided. Continue routine care and follow up unless otherwise noted in visit notes/problem list details OB Flowsheet Initial Weight: Not Recorded Date -?-?-?-?-?-?-?-?-?-?-?-?- EGA Weight BP Urine Prot -?-?-?-?-?-?-?-?-?-?-?-?- Glucose FHR FuHt Pres Dilation -?-?-?-?-?-?-?-?-?-?-?-?- Effaced St Visit Note 10/12/23 -?-?-?-?-?-?-?-?-?-?-?-?- 8w 5d 177 lb 8 oz 118/85 -?-?-?-?-?-?-?-?-?-?-?-?- 185 -?-?-?-?-?-?-?-?-?-?-?-?- Sm- CRL cons wit h LMP 10/25/23 -?-?-?-?-?-?-?-?-?-?-?-?- 10w 4d 180 lb 118/84 Negative -?-?-?-?-?-?-?-?-?-?-?-?- Negative 168 -?-?-?-?-?-?-?-?-?-?-?-?- MH-NO VB. Minima l nausea. Brief US confirmed FHT. NIPT, PN labs today 11/07/23 -?-?-?-?-?-?-?-?-?-?-?-?- 12w 3d 182 lb 2 oz 114/71 -?-?-?-?-?-?-?-?-?-?-?-?- 168 -?-?-?-?-?-?-?-?-?-?-?-?- JV- nipt low ris k (pt does not know gender yet. doing a reveal on mother's day) no complaints. done with progesterone injections, taking lovenox until approx 14 weeks and then naltrexone for rest of . 11/21/23 -?-?-?-?-?-?-?-?-?-?-?-?- 14w 3d 183 lb 4 oz 120/82 Nega tive -?-?-?-?-?-?-?-?-?-?-?-?- Negative 171 -?-?-?-?-?-?-?-?-?-?-?-?- MH-No VB, LOF. G ood FM. Brief US confirm live IUP. echo ordered. 12/19/23 -?-?-?-?-?-?-?-?-?-?-?-?- 18w 3d 185 lb 8 oz 115/81 Nega tive -?-?-?-?-?-?-?-?-?-?-?-?- Negative 156 -?-?-?-?-?-?-?-?-?-?-?-?- JV- no complaint s today. has anatomy scan scheduled for 12/27 and echo for 01/1801/02/24 -?-?-?-?-?-?-?-?-?-?-?-?- 20w 3d 188 lb 126/84 Negative -?-?-?-?-?-?-?-?-?-?-?-?- Negative 155 20 -?-?-?-?-?-?-?-?-?-?-?-?- KW-no vb/crampin g. +flutters. normal anatomy. echo 01/18. 01/19/24 -?-?-?-?-?-?-?-?-?-?-?-?- 22w 6d 187 lb 118/69 Negative -?-?-?-?-?-?-?-?-?-?-?-?- Negative 160 21.5 -?-?-?-?-?-?-?-?-?-?-?-?- LC- no vb/crampi ng. has echo this AM. no concerns. 28 labs ordered. NST FHR Rate Baby A Baseline: 150 Variability:: Moderate Decelerations:: None NST Reactive:: Appropriate for gestational age Assessment & Plan (1) Decreased movement: COMMENT: over 30 movements while on monitor PLAN: Patient presents for triage evaluation secondary to decrease movement at home, while on monitor had over 30 fm osborne over 27 minutes. reassured. FHT: Moderate variability reactive no decelerations category I tracing [place]: no Contractions Assessment and plan:appropriate for age, less than 28 weeks, reassuring maternal and status patient discharged to home to follow-up in office as needed. See problem list details for additional plan information. Charges/Coding Multi Select Codes Urinary/Genital Urinary/Genital CPT Codes: 68858-19 non-stress test Interp
== END 2024-01-26 22:20 | disposition home or self-care (01) ==
LOC: WPOUT 21:32 → WP 21:39
PROVIDERS: Referring Provider Registered Nurse; Visit Provider Registered Nurse
DX: O36.8320 Maternal care for abnormalities of the fetal heart rate or rhythm, second trimester, not applicable or unspecified (principal); Z3A.23 23 weeks gestation of pregnancy
CPT/HCPCS: 59050; 99221; G0378

== ENCOUNTER → 2024-02-02 | Outpatient (CLI) | payer OTHER, SELFPAY ==
[2024-02-02 08:41] LABS: Absolute Lymphocyte Count 1.73 X10^3/uL (0.83-4.51); Absolute Neutrophil Count 7.5 X10^3/uL (2.0-7.7); Basophil# 0.01 X10^3/uL; Basophil% 0.1 % (0-1); Eosinophil# 0.05 X10^3/uL; Eosinophils% 0.5 % (0-5); Hematocrit 37.9 % (37-47); Hemoglobin 12.7 g/dL (12.0-15.0); Lymphocyte # 1.73 X10^3/ul (0.83-4.51); Lymphocyte % 17.6 % (19-41); Mean Corp Hgb Conc 33.5 g/dL (32-36); Mean Corpuscular Hgb 30.2 pg (27.0-32.0); Monocyte# 0.47 X10^3/uL; Monocyte% 4.8 % (0-10); NRBC Flagged by Analyzer 0 % (0-5); Neutrophil # 7.51 X10^3/uL (2.7-7.7); Neutrophil % 76.6 % (47-70); Platelet Count 269 K/mm3 (150-450); RBC Distribution Width CV 13.2 % (11.6-14.6); RBC Distribution Width SD 42.8 fl (35.1-43.9); Red Blood Count 4.21 M/mm3 (4.2-5.4); White Blood Count 9.8 K/mm3 (4.4-11.0)
[2024-02-02 09:09] LABS: Glucose Challenge Gest 1H 50g 166 mg/dL (70-140)
[2024-02-02 09:37] LABS: HIV - WCH Non-Reactive (Nonreactive); Syphilis Antibodies Non-reactive
== END | disposition home or self-care (01) ==
LOC: LAB 07:57
PROVIDERS: Visit Provider Registered Nurse
DX: O09.91 Supervision of high risk pregnancy, unspecified, first trimester (principal); Z3A.00 Weeks of gestation of pregnancy not specified; Z13.1 Encounter for screening for diabetes mellitus
CPT/HCPCS: 36415; 82950; 85025; 86703; 86780

== ENCOUNTER → 2024-02-14 | Outpatient (CLI) | payer OTHER, SELFPAY ==
--- NOTE | 2024-02-14 07:29 | US_ITS ---
STUDY: SECOND AND THIRD TRIMESTER OBSTETRICAL ULTRASOUND - LIMITED REASON FOR EXAM: Female, 28 years old growth LMP: PRIOR ULTRASOUND: 09/29/2023 TECHNIQUE: Transabdominal TECHNICAL QUALITY: Adequate. FINDINGS: There is a single intrauterine fetus. The fetus is in a breech presentation. There is demonstrated cardiac activity with a heart rate of 166 bpm. There is a normal amniotic fluid volume. The largest amniotic fluid pocket measures 3.1 cm. The amniotic fluid index (LEONELA) is 9.8 cm. The placenta is posterior in location and is not low lying. There are Grade 0 placental changes. The cervix measures cm in length. BIOMETRY: BPD: 6.2 cm: 25 weeks, 2 days HC: 24.5 cm: 26 weeks, 4 days AC: 22.2 cm: 26 weeks, 4 days FL: 4.9 cm: 26 weeks, 3 days Age by LMP: weeks, days. GERALD by LMP: . age by prior US: weeks, days. GERALD by prior US: . age by current US: 26 weeks, 1 days. GERALD by current US: 05/21/2024. Estimated weight: 934 grams, +/- 140 grams, 32 percentile. Gender: US/OB Limited With Biometrics IMPRESSION: Living intrauterine at 26 weeks 1 day as described above. Electronically Signed: Donald Shankar MD at 9:02 EDT ,
== END | disposition home or self-care (01) ==
LOC: US 07:25
PROVIDERS: Referring Provider Obstetrics & Gynecology; Visit Provider Obstetrics & Gynecology
DX: O09.91 Supervision of high risk pregnancy, unspecified, first trimester (principal); Z78.9 Other specified health status; Z3A.00 Weeks of gestation of pregnancy not specified
CPT/HCPCS: 76816

== ENCOUNTER 2024-02-16 16:30 | Outpatient (CLI) | payer OTHER, SELFPAY ==
[2024-02-16 16:44] VITALS: BP 117/74; PULSE 99
[2024-02-16 16:52] VITALS: RESP 16; TEMP 36.9
[2024-02-16 16:59] VITALS: BMI 34.4
[2024-02-16 17:45] LABS: Glucose, Dipstick Normal (Normal); Ketone-Dipstick Negative (Negative); Leukocyte Esterase-Dipstick Negative /ul (Negative); Nitrite-Dipstick Negative (Negative); Occult Blood-Urine 150 /ul (Negative); Protein-Dipstick Negative (Negative); Specific Gravity, Urine 1.015 (1.002-1.030); Urine Bilirubin Dipstick Negative (Negative); Urine Clarity Sl. Cloudy (Clear); Urine Urobilinogen Normal (Normal)
[2024-02-16 17:49] LABS: Color, Urine YELLOW (Yellow)
[2024-02-16 18:03] LABS: ROM Internal Control Test YES-OK TO RESULT pt. (Internal QC); ROM Patient Test Negative (Negative); Record Kit Lot#, ROM+ K1866
--- NOTE | 2024-02-16 19:23 | OB.TRI.HP_ITS ---
HPI - General General Date of Admission: 02/16/24 HPI Narrative JOSE EDWARD, is a 28 y/o @ 26 weeks 6 days who presents to L&D with possible leaking fluid. She denies vaginal bleeding, decreased movement or pain Maternal Data Information GERALD Calculator Estimated Delivery Date Method Current WG Current Estimate 05/18/24 LMP (Certain) 26w 6d PFSH PFSH Medical History Genetic testing of female Wears contact lenses Anxiety Alcohol use Heartburn Vapes nicotine containing substance Endometrial polyp Abnormal uterine bleeding (AUB) Home Medications ?Medication ?Instructions ?Recorded ?Last Taken ?Type naltrexone 1.5 mg capsule 3 mg PO DAILY 10/03/23 02/15/24 21:00 History 1.5 mg omeprazole 20 mg tablet,delayed 20 mg PO DAILY 10/03/23 02/16/24 08:00 History release 20 mg diphenhydramine HCl 25 mg capsule 25 mg PO QHS PRN allergy symptoms 11/21/23 02/15/24 21:00 History (Benadryl) 25 mg loratadine 10 mg tablet (Claritin) 10 mg PO DAILY 11/21/23 02/16/24 08:00 His tory 10 mg multivitamin no.47-iron fum 27 1 cap PO DAILY #30 caps 12/15/23 02/16/24 12:00 Rx mg-folate no.1 1 mg-dha 300 mg 1 cap capsule (PNV-DHA) ondansetron 4 mg disintegrating 4 mg PO Q6H PRN nausea and 02/02/24 Unknown Rx tablet vomiting #14 tabs Allergy/AdvReac Type Severity Reaction Status Date / Time Latex, Natural Rubber Allergy Intermediate Other Verified 02/16/24 16:56 azithromycin (From Zithromax) Allergy JOHN Verified 02/16/24 16:56 VIJI'S SYNDROME venlafaxine Allergy Other Verified 02/16/24 16:56 Family History Mother Diabetes Uncle Diabetes Grandmother Diabetes Surgical History [place] teeth extracted History of hysteroscopy Status post laparoscopy S/P D&C (status post dilation and curettage) Hx of lumpectomy History of tonsillectomy and adenoidectomy Social History adopted: No household members: spouse number of children: 0 current occupational status: employed current occupation: [employer] current occupational exposures/hazards: No pets and animals: Yes (Avoid litterbox) pets and animals: cat(s) and dog(s) history of recent travel: Yes ([facility]) out of state: Yes out of country: No sexually active: Yes Smoking Status: Former smoker Electronic Cigarette Use: with nicotine alcohol intake: never substance use type: does not use well-balanced diet: daily or most days caffeine: No eating out: 1-3 times/week during the past year weight has: increased > 10 lbs what type of physical activity do you participate in: none jessica/restorationism: Moravian seatbelt use: always do you feel safe at home: Yes additional social history: - Andrea Woods History 3 Elective abortions Hx Para 0 Spontaneous abortions 2 Hx # Term Pregnancies Ectopic pregnancies Hx # Pregnancies Multiple births # of living children 0 Past Pregnancies Del. Date Name GA/Weeks Outcome Route Bth Weight Infant Gen Labor Lgth Anesthesia Del Locatn Provider FOB 01/15/18 7 spontaneous 08/05/23 chemical 5 Visit Details Expected Delivery Route/Plan Labor Preferences- CB/BF classes: [] labor support person: [] labor intervention preferences: [] pain management options preferred: [] cut cord/dad catch: [] : [] PP control planned: [] discussed possible routes of delivery and associated risks: [] special requests: [] Plans Covid status: [] Flu vaccine: declined Tdap vaccine: [] Rhogam: [] LARC form signed: [] Problem list reviewed and updated with the most current plan of care details and appropriate orders placed. Relevant counseling for the gestational age provided. Continue routine care and follow up unless otherwise noted in visit notes/problem list details OB Flowsheet Initial Weight: Not Recorded Date -?-?-?-?-?-?-?-?-?-?-?-?- EGA Weight BP Urine Prot -?-?-?-?-?-?-?-?-?-?-?-?- Glucose FHR FuHt Pres Dilation -?-?-?-?-?-?-?-?-?-?-?-?- Effaced St Visit Note 10/12/23 -?-?-?-?-?-?-?-?-?-?-?-?- 8w 5d 177 lb 8 oz 118/85 -?-?-?-?-?-?-?-?-?-?-?-?- 185 -?-?-?-?-?-?-?-?-?-?-?-?- Sm- CRL cons wit h LMP 10/25/23 -?-?-?-?-?-?-?-?-?-?-?-?- 10w 4d 180 lb 118/84 Negative -?-?-?-?-?-?-?-?-?-?-?-?- Negative 168 -?-?-?-?-?-?-?-?-?-?-?-?- MH-NO VB. Minima l nausea. Brief US confirmed FHT. NIPT, PN labs today 11/07/23 -?-?-?-?-?-?-?-?-?-?-?-?- 12w 3d 182 lb 2 oz 114/71 -?-?-?-?-?-?-?-?-?-?-?-?- 168 -?-?-?-?-?-?-?-?-?-?-?-?- JV- nipt low ris k (pt does not know gender yet. doing a reveal on mother's day) no complaints. done with progesterone injections, taking lovenox until approx 14 weeks and then naltrexone for rest of . 11/21/23 -?-?-?-?-?-?-?-?-?-?-?-?- 14w 3d 183 lb 4 oz 120/82 Nega tive -?-?-?-?-?-?-?-?-?-?-?-?- Negative 171 -?-?-?-?-?-?-?-?-?-?-?-?- MH-No VB, LOF. G ood FM. Brief US confirm live IUP. echo ordered. 12/19/23 -?-?-?-?-?-?-?-?-?-?-?-?- 18w 3d 185 lb 8 oz 115/81 Nega tive -?-?-?-?-?-?-?-?-?-?-?-?- Negative 156 -?-?-?-?-?-?-?-?-?-?-?-?- JV- no complaint s today. has anatomy scan scheduled for 12/27 and echo for 01/1801/02/24 -?-?-?-?-?-?-?-?-?-?-?-?- 20w 3d 188 lb 126/84 Negative -?-?-?-?-?-?-?-?-?-?-?-?- Negative 155 20 -?-?-?-?-?-?-?-?-?-?-?-?- KW-no vb/crampin g. +flutters. normal anatomy. echo 01/18. 01/19/24 -?-?-?-?-?-?-?-?-?-?-?--?- 22w 6d 187 lb 118/69 Negative -?-?-?-?-?-?-?-?-?-?-?-?- Negative 160 21.5 -?-?-?-?-?-?-?-?-?-?-?-?- LC- no vb/crampi ng. has echo this AM. no concerns. 28 labs ordered. 02/02/24 -?-?-?-?-?-?-?-?-?-?-?-?- 24w 6d 188 lb 2 oz 125/82 Nega tive -?-?-?-?-?-?-?-?-?-?-?-?- Negative 166 -?-?-?-?-?-?-?-?-?-?-?-?- JV- no lof, vagi nal bleeding, or dec fm. failed 1 hr gct, 3 hr ordered. 02/14/24 -?-?-?-?-?-?-?-?-?-?-?-?- 26w 4d 187 lb 4 oz 109/72 Nega tive -?-?-?-?-?-?-?-?-?-?-?-?- Negative 163 28 -?-?-?-?-?-?-?-?-?-?-?-?- JV- growth repor t today shows baby is in the 32nd %. has 3 hr scheduled for next monday. Had a sciatic nerve flair over the weekend but improved now and going to chiropractor twice a week. ROS Constitutional Constitutional: Reports systems reviewed and no addt'l complaints, except as documented Gastrointestinal Gastrointestinal: Denies bloating, constipation, cramping, diarrhea, nausea or vomiting Genitourinary Genitourinary: Reports other Details: Denies vaginal odor, vaginal bleeding, or vaginal discharge ; Denies difficulty urinating or flank pain Physical Exam HEENT normocephalic Resp normal respiratory effort and normal air movement no CVA tenderness Extremity normal to inspection General Extremity: edema bilateral (trace ) NST FHR Rate Baby A Baseline: 150 Variability:: Moderate Accelerations:: 10 x 10 Decelerations:: None NST Reactive:: Yes FHR Category:: Category I Assessment & Plan (1) False labor before 37 completed weeks of gestation: (2) with 26 completed weeks gestation: (3) Abnormal glucose affecting : (4) Decreased movement: COMMENT: over 30 movements while on monitor (5) PCOS (polycystic ovarian syndrome): (6) Supervision of high-risk : QUALIFIERS: Trimester: first trimester Qualified Code(s): O09.91 - Supervision of high risk , unspecified, first trimester COMMENT: [id number], GERALD 05/20/24per [facility], Rene (7) : QUALIFIERS: Weeks of gestation: 26 weeks Qualified Code(s): Z3A.26 - 26 weeks gestation of COMMENT: NIPT low risk, carrier testing completed prior to IVF; declines AFP (8) Conceived by in vitro fertilization: COMMENT: echo 22-24 wk/ordered gabi has on naltrexone this - stop 37-38 weeks echo at 22-24 weeks monthly growth scans nsts starting 36 weeks (9) 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
== END 2024-02-16 18:49 | disposition home or self-care (01) ==
LOC: WPOUT 16:37 → WP 16:37
PROVIDERS: Referring Provider Obstetrics & Gynecology; Visit Provider Obstetrics & Gynecology
DX: O47.02 False labor before 37 completed weeks of gestation, second trimester (principal); Z3A.26 26 weeks gestation of pregnancy; Z79.899 Other long term (current) drug therapy; Z87.891 Personal history of nicotine dependence; O09.92 Supervision of high risk pregnancy, unspecified, second trimester
CPT/HCPCS: 59025; 59050; 81002; 84112; 87086; 99221; G0378

== ENCOUNTER → 2024-02-23 | Outpatient (CLI) | payer OTHER, SELFPAY ==
[2024-02-23 07:40] LABS: Bedside Glucose 106 mg/dL (74-106)
[2024-02-23 08:29] LABS: Glucose GTT-Gestation. Fasting 103 mg/dL (<105)
[2024-02-23 09:06] LABS: Glucose GTT-Gestational 1 Hr 226 mg/dL (<190)
[2024-02-23 10:13] LABS: Glucose GTT-Gestational 2 Hr 224 mg/dL (<165)
[2024-02-23 11:21] LABS: Glucose GTT-Gestational 3 Hr 207 L (<145)
== END | disposition home or self-care (01) ==
PROVIDERS: Referring Provider Obstetrics & Gynecology; Visit Provider Obstetrics & Gynecology
DX: O99.810 Abnormal glucose complicating pregnancy (principal); Z3A.00 Weeks of gestation of pregnancy not specified
CPT/HCPCS: 36415; 82951; 82952; 82962

== ENCOUNTER 2024-02-28 09:32 | Outpatient (RCR) | payer OTHER, SELFPAY | END 2024-03-02 23:59 | disposition home or self-care (01) | LOC: DC 09:32 | PROVIDERS: Referring Provider Obstetrics & Gynecology; Visit Provider Obstetrics & Gynecology | DX: O24.419 Gestational diabetes mellitus in pregnancy, unspecified control (principal) | CPT/HCPCS: 97802 ==

== ENCOUNTER → 2024-03-01 | Outpatient (CLI) | payer OTHER, SELFPAY ==
[2024-03-01 15:30] LABS: Mucous, Urine 0 SEEN /hpf (<or=2+)
[2024-03-01 16:05] LABS: Color, Urine Yellow (Yellow); Glucose, Dipstick Normal (Normal); Ketone-Dipstick 5 mg/dl (Negative); Leukocyte Esterase-Dipstick Negative /ul (Negative); Nitrite-Dipstick Negative (Negative); Occult Blood-Urine 150 /ul (Negative); Protein-Dipstick 15 mg/dl (Negative); Specific Gravity, Urine 1.015 (1.002-1.030); Urine Bilirubin Dipstick Negative (Negative); Urine Clarity Clear (Clear); Urine Urobilinogen Normal (Normal); Urine pH 6.5 (5.0 - 8.0)
[2024-03-01 16:13] LABS: Amorphous Sediment 2+; Bacteria 1+ /hpf (None Seen); Red Blood Cells-Urine 0-5 SEEN /hpf (0-5); Squamous Epithelial Cells - UA 5-10 SEEN /hpf (5-10); White Blood Cells 0-5 SEEN /hpf (0-5)
== END | disposition home or self-care (01) ==
LOC: LAB 15:23
PROVIDERS: Referring Provider Obstetrics & Gynecology; Visit Provider Obstetrics & Gynecology
DX: R31.9 Hematuria, unspecified (principal)
CPT/HCPCS: 36415; 81001; 87086

== ENCOUNTER 2024-03-06 13:26 | Observation (INO) | payer OTHER, SELFPAY ==
[2024-03-06] VITALS (19 sets, daily range): BP systolic 114–140; BP diastolic 60–88; PULSE 100–115; O2SAT 94–100; BMI 34.2
[2024-03-06 11:42] LABS: Absolute Lymphocyte Count 1.94 X10^3/uL (0.83-4.51); Absolute Neutrophil Count 6.5 X10^3/uL (2.0-7.7); Basophil# 0.02 X10^3/uL; Basophil% 0.2 % (0-1); Eosinophil# 0.04 X10^3/uL; Eosinophils% 0.4 % (0-5); Hematocrit 40.1 % (37-47); Hemoglobin 13.3 g/dL (12.0-15.0); Lymphocyte # 1.94 X10^3/ul (0.83-4.51); Lymphocyte % 21.7 % (19-41); Mean Corp Hgb Conc 33.2 g/dL (32-36); Mean Corpuscular Volume 90.3 fL (81-99); Mean Platelet Vol. 9.6 fl (6.2-12.0); Monocyte# 0.42 X10^3/uL; Monocyte% 4.7 % (0-10); NRBC Flagged by Analyzer 0 % (0-5); Neutrophil # 6.51 X10^3/uL (2.7-7.7); Neutrophil % 72.7 % (47-70); Platelet Count 281 K/mm3 (150-450); RBC Distribution Width CV 13.9 % (11.6-14.6); RBC Distribution Width SD 45.1 fl (35.1-43.9); Red Blood Count 4.44 M/mm3 (4.2-5.4)
[2024-03-06 12:42] LABS: ALB/GLOB Ratio 0.8 RATIO (0.9-2.4); AST(SGOT) 16 U/L (15-37); Alanine Aminotransfer ALT/SGPT 19 U/L (13-56); Albumin, Serum 2.8 g/dL (3.2-5.0); Alkaline Phosphatase 86 U/L (45-117); Anion Gap 7 (5-15); BUN 9 mg/dL (7-18); BUN/Creat Ratio 21.6 RATIO (10-20); Calcium,Total 9.7 mg/dL (8.5-10.1); Chloride 107 mmol/L (98-107); Creatinine, Serum 0.42 mg/dL (0.55-1.02); EST Glomerular Filtration Rate 195 mL/min (>60); Est Glom Filt Rate - Afr Amer 236 mL/min (>60); Globulin 3.7 g/dL (2.2-4.2); Glucose 108 mg/dL (74-106); Potassium 3.8 mmol/L (3.5-5.1); Protein, Total 6.5 g/dL (6.4-8.2); Sodium Level 137 mmol/L (136-145)
[2024-03-06] MEDS: Lactated Ringers 1,000 ML 50 ML IV (13:35)
--- NOTE | 2024-03-06 13:37 | OB.TRI.HP_ITS ---
HPI - General General Date of Admission: 03/06/24 HPI Narrative JOSE EDWARD, is a 28 F who presents Maternal Data Information GERALD Calculator Estimated Delivery Date Method Current WG Current Estimate 05/18/24 LMP (Certain) 29w 4d Other Estimates 05/19/24 Conception 29w 3d PFSH [facility] Medical History Genetic testing of female Wears contact lenses Anxiety Alcohol use Heartburn Vapes nicotine containing substance Endometrial polyp Abnormal uterine bleeding (AUB) Home Medications ?Medication ?Instructions ?Recorded ?Last Taken ?Type naltrexone 1.5 mg capsule 3 mg PO DAILY 10/03/23 02/15/24 21:00 History 1.5 mg omeprazole 20 mg tablet,delayed 20 mg PO DAILY 10/03/23 02/16/24 08:00 History release 20 mg diphenhydramine HCl 25 mg capsule 25 mg PO QHS PRN allergy symptoms 11/21/23 02/15/24 21:00 History (Benadryl) 25 mg loratadine 10 mg tablet (Claritin) 10 mg PO DAILY 11/21/23 02/16/24 08:00 History 10 mg multivitamin no.47-iron fum 27 1 cap PO DAILY #30 caps 12/15/23 02/16/24 12:00 Rx mg-folate no.1 1 mg-dha 300 mg 1 cap capsule (PNV-DHA) ondansetron 4 mg disintegrating 4 mg PO Q6H PRN nausea and 02/02/24 Unknown Rx tablet vomiting #14 tabs blood sugar diagnostic (Blood #50 ea 02/26/24 Unknown Rx Glucose Test strips) blood-glucose meter #1 ea 02/26/24 Unknown Rx lancets 30 gauge (Droplet Lancets) #200 ea 02/26/24 Unknown Rx flash glucose scanning reader #1 ea 02/28/24 Unknown Rx (FreeStyle Lexi 2 [place]) flash glucose sensor (FreeStyle #1 ea 02/28/24 Unknown Rx Lexi 2 Sensor kit) nitrofurantoin 100 mg PO BID 7 days #14 caps 03/06/24 Unknown Rx monohydrate/macrocrystals 100 mg capsule (Macrobid) Allergy/AdvReac Type Severity Reaction Status Date / Time Latex, Natural Rubber Allergy Intermediate Other Verified 03/06/24 11:35 azithromycin (From Zithromax) Allergy JOHN Verified 03/06/24 11:35 VIJI'S SYNDROME venlafaxine Allergy Other Verified 03/06/24 11:35 Family History Mother Diabetes Uncle Diabetes Grandmother Diabetes Surgical History [place] teeth extracted History of hysteroscopy Status post laparoscopy S/P D&C (status post dilation and curettage) Hx of lumpectomy History of tonsillectomy and adenoidectomy Social History adopted: No household members: spouse number of children: 0 current occupational status: employed current occupation: [employer] current occupational exposures/hazards: No pets and animals: Yes (Avoid litterbox) pets and animals: cat(s) and dog(s) history of recent travel: Yes ([facility]) out of state: Yes out of country: No sexually active: Yes Smoking Status: Former smoker Electronic Cigarette Use: with nicotine alcohol intake: never substance use type: does not use well-balanced diet: daily or most days caffeine: No eating out: 1-3 times/week during the past year weight has: increased > 10 lbs what type of physical activity do you participate in: none jessica/confucianism: Scientology seatbelt use: always do you feel safe at home: Yes additional social history: - Andrea Woods History 3 Elective abortions Hx Para 0 Spontaneous abortions 2 Hx # Term Pregnancies Ectopic pregnancies Hx # Pregnancies Multiple births # of living children 0 Past Pregnancies Del. Date Name GA/Weeks Outcome Route Bth Weight Gen Labor Lgth Anesthesia Del Locatn Provider FOB 01/15/18 7 spontaneous 08/05/23 chemical 5 Visit Details Expected Delivery Route/Plan Labor Preferences- CB/BF classes: [] labor support person: [] labor intervention preferences: [] pain management options preferred: [] cut cord/dad catch: [] : [] PP control planned: [] discussed possible routes of delivery and associated risks: [] special requests: [] Plans Covid status: [] Flu vaccine: declined Tdap vaccine: [] Rhogam: [] LARC form signed: [] Problem list reviewed and updated with the most current plan of care details and appropriate orders placed. Relevant counseling for the gestational age provided. Continue routine care and follow up unless otherwise noted in visit notes/problem list details OB Flowsheet Initial Weight: Not Recorded Date -?-?-?-?-?-?-?-?-?-?-?-?- EGA Weight BP Urine Prot -?-?-?-?-?-?-?-?-?-?-?-?- Glucose FHR FuHt Pres Dilation -?-?-?-?-?-?-?-?-?-?-?-?- Effaced St Visit Note 10/12/23 -?-?-?-?-?-?-?-?-?-?-?-?- 8w 5d 177 lb 8 oz 118/85 -?-?-?-?-?-?-?-?-?-?-?-?- 185 -?-?-?-?-?-?-?-?-?-?-?-?- Sm- CRL cons wit h LMP 10/25/23 -?-?-?-?-?-?-?-?-?-?-?-?- 10w 4d 180 lb 118/84 Negative -?-?-?-?-?-?-?-?-?-?-?-?- Negative 168 -?-?-?-?-?-?-?-?-?-?-?-?- MH-NO VB. Minima l nausea. Brief US confirmed FHT. NIPT, PN labs today 11/07/23 -?-?-?-?-?-?-?-?-?-?-?-?- 12w 3d 182 lb 2 oz 114/71 -?-?-?-?-?-?-?-?-?-?-?-?- 168 -?-?-?-?-?-?-?-?-?-?-?-?- JV- nipt low ris k (pt does not know gender yet. doing a reveal on mother's day) no complaints. done with progesterone injections, taking lovenox until approx 14 weeks and then naltrexone for rest of . 11/21/23 -?-?-?-?-?-?-?-?-?-?-?-?- 14w 3d 183 lb 4 oz 120/82 Nega tive -?-?-?-?-?-?-?-?-?-?-?-?- Negative 171 -?-?-?-?-?-?-?-?-?-?-?-?- MH-No VB, LOF. G ood FM. Brief US confirm live IUP. echo ordered. 12/19/23 -?-?-?-?-?-?-?-?-?-?-?-?- 18w 3d 185 lb 8 oz 115/81 Nega tive -?-?-?-?-?-?-?-?-?-?-?-?- Negative 156 -?-?-?-?-?-?-?-?-?-?-?-?- JV- no complaint s today. has anatomy scan scheduled for 12/27 and echo for 01/1801/02/24 -?-?-?-?-?-?-?-?-?-?-?-?- 20w 3d 188 lb 126/84 Negative -?-?-?-?-?-?-?-?-?-?-?-?- Negative 155 20 -?-?-?-?-?-?-?-?-?-?-?-?- KW-no vb/crampin g. +flutters. normal anatomy. echo 01/18. 01/19/24 -?-?-?-?-?-?-?-?-?-?-?-?- 22w 6d 187 lb 118/69 Negative -?-?-?-?-?-?-?-?-?-?-?-?- Negative 160 21.5 -?-?-?-?-?-?-?-?-?-?-?-?- LC- no vb/crampi ng. has echo this AM. no concerns. 28 labs ordered. 02/02/24 -?-?-?-?-?-?-?-?-?-?-?-?- 24w 6d 188 lb 2 oz 125/82 Nega tive -?-?-?-?-?-?-?-?-?-?-?-?- Negative 166 -?-?-?-?-?-?-?-?-?-?-?-?- JV- no lof, vagi nal bleeding, or dec fm. failed 1 hr gct, 3 hr ordered. 02/14/24 -?-?-?-?-?-?-?-?-?-?-?-?- 26w 4d 187 lb 4 oz 109/72 Nega tive -?-?-?-?-?-?-?-?-?-?-?-?- Negative 163 28 -?-?-?-?-?-?-?-?-?-?-?-?- JV- growth repor t today shows baby is in the 32nd %. has 3 hr scheduled for next monday. Had a sciatic nerve flair over the weekend but improved now and going to chiropractor twice a week. 02/28/24 -?-?-?-?-?-?-?-?-?--?-?-?- 28w 4d 189 lb 114/77 Negative -?-?-?-?-?-?-?-?-?-?-?-?- Negative 160 28 -?-?-?-?-?-?-?-?-?-?-?-?- JV- pt started r ecording glucose log. She drank a protein drink before bedtime and her gluose was 117 fasting, otherwise they have been normal. Having trouble with testing strips giving an error and had to prick finger 3 times to get a reading this am. will order a dexcom or lexi system. 03/06/24 -?-?-?-?-?-?-?-?-?-?-?-?- 29w 4d 188 lb 122/85 Trace -?-?-?-?-?-?-?-?-?-?-?-?- Negative 163 28 0 -?-?-?-?-?-?-?-?-?-?-?-?- MH-work in for b lood on pad. Leaking urine feels off. Good FM. Urine dip ++ blood, leuk et el. Macrobid sent. Culture pending. Defer ROM due to blood although clear minimal fluid in vag vault. SM to scan for fluid pocket.
--- NOTE | 2024-03-06 13:37 | OB.TRI.NOTE ---
HPI - General General Date of Admission: 03/06/24 HPI Narrative JOSE EDWARD, is a 28 F who presents with suspected PPROM 29w4d due to low LEONELA on US in office and patient complaints of persistent large amounts of fluid leakage daily. no fevers co some vb no regular ctx breech presentation negative ferning on microscope slide, negative ROM plus 2 weeks ago in labor and delivery. Maternal Data Information GERALD Calculator Estimated Delivery Date Method Current WG Current Estimate 05/18/24 LMP (Certain) 29w 4d Other Estimates 05/19/24 Conception 29w 3d PFSH [facility] Medical History Genetic testing of female Wears contact lenses Anxiety Alcohol use Heartburn Vapes nicotine containing substance Endometrial polyp Abnormal uterine bleeding (AUB) Home Medications ?Medication ?Instructions ?Recorded ?Last Taken ?Type naltrexone 1.5 mg capsule 3 mg PO DAILY 10/03/23 02/15/24 21:00 History 1.5 mg omeprazole 20 mg tablet,delayed 20 mg PO DAILY 10/03/23 02/16/24 08:00 History release 20 mg diphenhydramine HCl 25 mg capsule 25 mg PO QHS PRN allergy symptoms 11/21/23 02/15/24 21:00 History (Benadryl) 25 mg loratadine 10 mg tablet (Claritin) 10 mg PO DAILY 11/21/23 02/16/24 08:00 History 10 mg multivitamin no.47-iron fum 27 1 cap PO DAILY #30 caps 12/15/23 02/16/24 12:00 Rx mg-folate no.1 1 mg-dha 300 mg 1 cap capsule (PNV-DHA) ondansetron 4 mg disintegrating 4 mg PO Q6H PRN nausea and 02/02/24 Unknown Rx tablet vomiting #14 tabs blood sugar diagnostic (Blood #50 ea 02/26/24 Unknown Rx Glucose Test strips) blood-glucose meter #1 ea 02/26/24 Unknown Rx lancets 30 gauge (Droplet Lancets) #200 ea 02/26/24 Unknown Rx flash glucose scanning reader #1 ea 02/28/24 Unknown Rx (FreeStyle Lexi 2 Formoso) flash glucose sensor (FreeStyle #1 ea 02/28/24 Unknown Rx Lexi 2 Sensor kit) nitrofurantoin 100 mg PO BID 7 days #14 caps 03/06/24 Unknown Rx monohydrate/macrocrystals 100 mg capsule (Macrobid) Allergy/AdvReac Type Severity Reaction Status Date / Time Latex, Natural Rubber Allergy Intermediate Other Verified 03/06/24 11:35 azithromycin (From Zithromax) Allergy JOHN Verified 03/06/24 11:35 VIJI'S SYNDROME venlafaxine Allergy Other Verified 03/06/24 11:35 Family History Mother Diabetes Uncle Diabetes Grandmother Diabetes Surgical History [place] teeth extracted History of hysteroscopy Status post laparoscopy S/P D&C (status post dilation and curettage) Hx of lumpectomy History of tonsillectomy and adenoidectomy Social History adopted: No household members: spouse number of children: 0 current occupational status: employed current occupation: [employer] current occupational exposures/hazards: No pets and animals: Yes (Avoid litterbox) pets and animals: cat(s) and dog(s) history of recent travel: Yes ([facility]) out of state: Yes out of country: No sexually active: Yes Smoking Status: Former smoker Electronic Cigarette Use: with nicotine alcohol intake: never substance use type: does not use well-balanced diet: daily or most days caffeine: No eating out: 1-3 times/week during the past year weight has: increased > 10 lbs what type of physical activity do you participate in: none jessica/roman catholic: Christianity seatbelt use: always do you feel safe at home: Yes additional social history: - [place] History 3 Elective abortions Hx Para 0 Spontaneous abortions 2 Hx # Term Pregnancies Ectopic pregnancies Hx # Pregnancies Multiple births # of living children 0 Past Pregnancies Del. Date Name GA/Weeks Outcome Route Bth Weight Gen Labor Lgth Anesthesia Del Locatn Provider FOB 01/15/18 7 spontaneous 08/05/23 chemical 5 Visit Details Expected Delivery Route/Plan Labor Preferences- CB/BF classes: [] labor support person: [] labor intervention preferences: [] pain management options preferred: [] cut cord/dad catch: [] : [] PP control planned: [] discussed possible routes of delivery and associated risks: [] special requests: [] Plans Covid status: [] Flu vaccine: declined Tdap vaccine: [] Rhogam: [] LARC form signed: [] Problem list reviewed and updated with the most current plan of care details and appropriate orders placed. Relevant counseling for the gestational age provided. Continue routine care and follow up unless otherwise noted in visit notes/problem list details OB Flowsheet Initial Weight: Not Recorded Date <del>?</del> EGA Weight BP Urine Prot <del>?</del> Glucose FHR FuHt Pres Dilation <del>?</del> Effaced St Visit Note 10/12/23 <del>?</del> 8w 5d 177 lb 8 oz 118/85 <del>?</del> 185 <del>?</del> Sm- CRL cons with LMP 10/25/23 <del>?</del> 10w 4d 180 lb 118/84 Negative <del>?</del> Negative 168 <del>?</del> MH-NO VB. Minimal nausea. Brief US confirmed FHT. NIPT, PN labs today 11/07/23 <del>?</del> 12w 3d 182 lb 2 oz 114/71 <del>?</del> 168 <del>?</del> JV- nipt low risk (pt does not know gender yet. doing a reveal on mother's day) no complaints. done with progesterone injections, taking lovenox until approx 14 weeks and then naltrexone for rest of . 11/21/23 <del>?</del> 14w 3d 183 lb 4 oz 120/82 Negative <del>?</del> Negative 171 <del>?</del> MH-No VB, LOF. Good FM. Brief US confirm live IUP. echo ordered. 12/19/23 <del>?</del> 18w 3d 185 lb 8 oz 115/81 Negative <del>?</del> Negative 156 <del>?</del> JV- no complaints today. has anatomy scan scheduled for 12/27 and echo for 01/1801/02/24 <del>?</del> 20w 3d 188 lb 126/84 Negative <del>?</del> Negative 155 20 <del>?</del> KW-no vb/cramping. +flutters. normal anatomy. echo 01/18. 01/19/24 <del>?</del> 22w 6d 187 lb 118/69 Negative <del>?</del> Negative 160 21.5 <del>?</del> LC- no vb/cramping. has echo this AM. no concerns. 28 labs ordered. 02/02/24 <del>?</del> 24w 6d 188 lb 2 oz 125/82 Negative <del>?</del> Negative 166 <del>?</del> JV- no lof, vaginal bleeding, or dec fm. failed 1 hr gct, 3 hr ordered. 02/14/24 <del>?</del> 26w 4d 187 lb 4 oz 109/72 Negative <del>?</del> Negative 163 28 <del>?</del> JV- growth report today shows baby is in the 32nd %. has 3 hr scheduled for next monday. Had a sciatic nerve flair over the weekend but improved now and going to chiropractor twice a week. 02/28/24 <del>?</del> 28w 4d 189 lb 114/77 Negative <del>?</del> Negative 160 28 <del>?</del> JV- pt started recording glucose log. She drank a protein drink before bedtime and her gluose was 117 fasting, otherwise they have been normal. Having trouble with testing strips giving an error and had to prick finger 3 times to get a reading this am. will order a dexcom or lexi system. 03/06/24 <del>?</del> 29w 4d 188 lb 122/85 Trace <del>?</del> Negative 163 28 0 <del>?</del> MH-work in for blood on pad. Leaking urine feels off. Good FM. Urine dip ++ blood, leuk et el. Macrobid sent. Culture pending. Defer ROM due to blood although clear minimal fluid in vag vault. to scan for fluid pocket. 03/06/24 <del>?</del> 29w 4d 187 lb 125/88 114/82 120/78 122/75 118/80 140/72 129/60 123/63 119/68 <del>?</del> <del>?</del> ROS Constitutional Constitutional: Reports systems reviewed and no addt'l complaints, except as documented Eyes Eyes: Denies change in vision ENT HEENT: Reports systems reviewed and no addt'l complaints, except as documented; Denies headache(s) Cardiovascular Cardiovascular: Reports systems reviewed and no addt'l complaints, except as documented; Denies chest pain or dyspnea Respiratory/Chest Respiratory/Chest: Reports systems reviewed and no addt'l complaints, except as documented Gastrointestinal Gastrointestinal: Reports systems reviewed and no addt'l complaints, except as documented; Denies abdominal pain Genitourinary Genitourinary: Reports systems reviewed and no addt'l complaints, except as documented, contractions Details: present (irregular) and movement Details: present; Denies dysuria or genital lesions Musculoskeletal Musculoskeletal: Reports systems reviewed and no addt'l complaints, except as documented Neurologic Neurologic: Reports systems reviewed and no addt'l complaints, except as documented Endocrine Endocrinology: Reports systems reviewed and no addt'l complaints, except as documented Physical Exam Const alert, oriented x3, no apparent distress and healthy appearing HEENT normocephalic and moist oral mucous membranes Head and Scalp: atraumatic Neck full ROM, no lymphadenopathy, supple and thyroid normal General: trachea midline Lymph Lymphatic: no lymphadenopathy noted Chest inspection of chest normal Resp normal respiratory effort Cardio regular rate GI normal to inspection, nondistended, normoactive bowel sounds, soft to palpation and non-tender Inspection: gravid external exam normal Manual OB Exam: estimated gestational size appropriate, presentation cephalic, dilated, effaced and station Extremity normal to inspection General Extremity: Negative for edema Skin no rashes or lesions noted Neuro no focal motor deficits and deep tendon reflexes 2+ bilaterally Motor Exam: strength 5/5 throughout and clonus absent Psych mental status grossly normal NST FHR Rate Baby A Baseline: 150 Variability:: Moderate Accelerations:: 15 x 15 Decelerations:: None NST Reactive:: Yes FHR Category:: Category I Uterine Activity:: irregular Assessment & Plan (1) premature rupture of membranes (PPROM) with unknown onset of labor: (2) Hematuria: (3) GDM (gestational diabetes mellitus): (4) PCOS (polycystic ovarian syndrome): (5) Supervision of high-risk : QUALIFIERS: Trimester: first trimester Qualified Code(s): O09.91 - Supervision of high risk , unspecified, first trimester COMMENT: [id number], GERALD 05/20/24per [facility], Rene (6) : QUALIFIERS: Weeks of gestation: 28 weeks Qualified Code(s): Z3A.28 - 28 weeks gestation of COMMENT: NIPT low risk, carrier testing completed prior to IVF; declines AFP (7) Conceived by in vitro fertilization: COMMENT: echo 22-24 wk/ordered gabi has on naltrexone this - stop 37-38 weeks echo at 22-24 weeks monthly growth scans nsts starting 36 weeks (8) 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
[2024-03-06] MEDS: Magnesium Sulfate 4gm/100mL 6 GM/150 ML IV.SOLN. IV (13:54)
[2024-03-06 14:04] LABS: Absolute Lymphocyte Count 2.03 X10^3/uL (0.83-4.51); Absolute Neutrophil Count 7.4 X10^3/uL (2.0-7.7); Basophil# 0.01 X10^3/uL; Basophil% 0.1 % (0-1); Eosinophil# 0.03 X10^3/uL; Eosinophils% 0.3 % (0-5); Hematocrit 40.5 % (37-47); Hemoglobin 13.3 g/dL (12.0-15.0); Lymphocyte # 2.03 X10^3/ul (0.83-4.51); Lymphocyte % 19.8 % (19-41); Mean Corp Hgb Conc 32.8 g/dL (32-36); Mean Corpuscular Hgb 29.2 pg (27.0-32.0); Mean Corpuscular Volume 88.8 fL (81-99); Mean Platelet Vol. 9.9 fl (6.2-12.0); Monocyte# 0.68 X10^3/uL; Monocyte% 6.6 % (0-10); NRBC Flagged by Analyzer 0 % (0-5); Neutrophil # 7.43 X10^3/uL (2.7-7.7); Neutrophil % 72.7 % (47-70); Platelet Count 303 K/mm3 (150-450); RBC Distribution Width SD 45.1 fl (35.1-43.9); Red Blood Count 4.56 M/mm3 (4.2-5.4); White Blood Count 10.2 K/mm3 (4.4-11.0)
[2024-03-06] MEDS: Betamethasone/Betamethasone 30 MG/5 ML Vial 12 MG IM (14:15)
[2024-03-06] MEDS: Ampicillin 2 GM in 0.9% Normal Saline (100mL MB+) 100 ML IV (14:21)
[2024-03-06] MEDS: Magnesium Sulfate 20 GM/500 ML BAG IV (14:26)
[2024-03-06 15:01] LABS: Bedside Glucose 80 mg/dL (74-106)
[2024-03-06 16:08] LABS: Protein:Creat Ratio 523 mg/g CRE (0-200)
== END 2024-03-06 15:05 | disposition short-term general hospital (02) ==
PROVIDERS: Nurse Practitioner Women's Health; Admitting Provider Obstetrics & Gynecology; Referring Provider Obstetrics & Gynecology; Visit Provider Obstetrics & Gynecology
DX: O42.913 Preterm premature rupture of membranes, unspecified as to length of time between rupture and onset of labor, third trimester (principal); O99.283 Endocrine, nutritional and metabolic diseases complicating pregnancy, third trimester; O09.03 Supervision of pregnancy with history of infertility, third trimester; Z3A.29 29 weeks gestation of pregnancy; O24.419 Gestational diabetes mellitus in pregnancy, unspecified control; E28.2 Polycystic ovarian syndrome; R31.9 Hematuria, unspecified; Z87.891 Personal history of nicotine dependence; O09.813 Supervision of pregnancy resulting from assisted reproductive technology, third trimester
CPT/HCPCS: 96365; 96372; 36415; 59025; 59050; 80053; 82570; 82962; 84156; 85025; 87086; J7120; J0702

== ENCOUNTER 2024-03-06 16:01 | Outpatient (RCR) | payer OTHER, SELFPAY | END 2024-04-01 23:59 | LOC: DC 16:01 | PROVIDERS: Referring Provider Obstetrics & Gynecology; Visit Provider Obstetrics & Gynecology | DX: Z71.3 Dietary counseling and surveillance (principal); O24.419 Gestational diabetes mellitus in pregnancy, unspecified control ==

== ENCOUNTER → 2024-06-19 | Outpatient (CLI) | payer OTHER, SELFPAY | END | disposition home or self-care (01) | LOC: LABSPEC 11:07 | PROVIDERS: Referring Provider Nurse Practitioner Family; Visit Provider Nurse Practitioner Family | DX: N89.8 Other specified noninflammatory disorders of vagina (principal) | CPT/HCPCS: 87070; 87205 ==

== ENCOUNTER → 2024-08-15 | Outpatient (CLI) | payer OTHER, SELFPAY ==
--- NOTE | 2024-08-15 08:22 | MRI_ITS ---
PROCEDURE: MRI of the pelvis without and with intravenous contrast. REASON FOR EXAM: Uterine fibroid, preoperative. TECHNIQUE: Multiplanar, multisequence MRI images of the pelvis were obtained without and with intravenous contrast. COMPARISON: None available FINDINGS: Included osseous structures of the pelvis appear intact. No focal abnormality of the urinary bladder. The included lower bowel segments show no specific abnormality. The origins of the hamstring complexes are intact. No gross pelvic mass or adenopathy. There are bilateral adnexal follicles, the largest posteriorly on the right at 2.2 cm. No dominant concerning adnexal mass or free pelvic fluid. No discrete uterine myometrial or cervical mass. There is some fluid signal in the central endometrial canal, not unexpected for age. Trace amount of free pelvic fluid, likely physiologic in this young patient. MRI/Pelvis W/WO Contrast IMPRESSION: No dominant uterine or adnexal mass demonstrated. No discrete mass of the cerv ix is demonstrated. Bilateral ovarian follicles, the largest posteriorly on the right at 2.2 cm. No pelvic adenopathy Trace amount of free pelvic fluid, likely physiologic in this young patient. Reading Location: [facility]
[2024-08-15 10:31] LABS: Hematocrit 44.4 % (37-47); Hemoglobin 14.8 g/dL (12.0-15.0); Mean Corp Hgb Conc 33.3 g/dL (32-36); Mean Corpuscular Hgb 29.4 pg (27.0-32.0); Mean Corpuscular Volume 88.3 fL (81-99); Mean Platelet Vol. 9.7 fl (6.2-12.0); Platelet Count 304 K/mm3 (150-450); RBC Distribution Width CV 12.9 % (11.6-14.6); RBC Distribution Width SD 41.4 fl (35.1-43.9); Red Blood Count 5.03 M/mm3 (4.2-5.4); White Blood Count 6.2 K/mm3 (4.4-11.0)
[2024-08-15 11:04] LABS: Vitamin D,25 Hydroxy 28.5 ng/mL
[2024-08-15 11:46] LABS: ALB/GLOB Ratio 1.3 RATIO (0.9-2.4); AST(SGOT) 15 U/L (15-37); Alanine Aminotransfer ALT/SGPT 22 U/L (13-56); Albumin, Serum 4.2 g/dL (3.2-5.0); Alkaline Phosphatase 96 U/L (45-117); Anion Gap 7 (5-15); BUN 9 mg/dL (7-18); BUN/Creat Ratio 16.3 RATIO (10-20); Calcium,Total 9.5 mg/dL (8.5-10.1); Chloride 106 mmol/L (98-107); Creatinine, Serum 0.55 mg/dL (0.55-1.02); EST Glomerular Filtration Rate 140 mL/min (>60); Est Glom Filt Rate - Afr Amer 170 mL/min (>60); Globulin 3.2 g/dL (2.2-4.2); Glucose 98 mg/dL (74-106); Potassium 3.8 mmol/L (3.5-5.1); Protein, Total 7.4 g/dL (6.4-8.2); Sodium Level 138 mmol/L (136-145)
[2024-08-15 14:02] LABS: Hepatitis B Surface Antigen Non-Reactive (Nonreactive); Hepatitis C Antibody Non-Reactive (Nonreactive); Rubella IgG Reactive (Nonreactive); Syphilis Antibodies Non-reactive
[2024-08-16 06:08] LABS: V-Zoster IgG (Immunity) Reactive (Non Reactive)
[2024-08-19 01:06] LABS: Anti-Mullerian Hormone,Serum 6.59 ng/mL (.); PROLACTIN 21.9 ng/mL (4.8-33.4)
[2024-08-20 14:47] LABS: HIV - WCH Non-Reactive (Nonreactive)
== END | disposition home or self-care (01) ==
PROVIDERS: Referring Provider Obstetrics & Gynecology; Visit Provider Obstetrics & Gynecology
DX: Z31.41 Encounter for fertility testing (principal)
CPT/HCPCS: 36415; 72197; 80053; 82306; 83516; 84146; 84403; 85027; 86703; 86762; 86780; 86787; 86803; 86850; 86900; 86901; 87340; A9575

== ENCOUNTER 2024-10-11 20:53 | Emergency (ER) | payer OTHER, SELFPAY ==
[2024-10-11 20:53] VITALS: BP 119/88; PULSE 103; RESP 18; TEMP 36.8; O2SAT 100; BMI 34.2
--- NOTE | 2024-10-11 21:08 | CT_ITS ---
PROCEDURE: CTA CHST, ABD, PEL W AND/OR WO 10/11/2024 REASON FOR EXAM: CHEST, ABDOMEN PAIN AFTER EGG RETRIEVAL TODAY. Patient reports bladder puncture during procedure. TECHNIQUE: CTA imaging of the chest, abdomen and pelvis without and with intravenous contrast. Coronal and Sagittal reconstruction series were provided. 3D, 3D post processing, 3D reconstructions, Maximum intensity projection (MIPs) Volume rendering and Shaded surface rendering was provided. CONTRAST: Isovue 370 VOLUME: 100mL One or more dose reduction techniques were used (e.g., Automated exposure control, adjustment of the mA and/or kV according to patient size, use of iterative reconstruction technique). RADIATION DOSE SUMMARY: CTDlvol: 35 mGy DLP: 1200 mGycm COMPARISON: MRI pelvis 08/15/2024. FINDINGS: CTA CHEST: Hardware: None. Lymph nodes: No axillary, mediastinal or hilar lymphadenopathy. Heart and Vasculature: The heart is normal in size without pericardial effusion. Mild dilation of the main pulmonary artery, which can be seen with pulmonary hypertension. No traumatic thoracic aortic aneurysm or mediastinal hematoma. Lungs and Airways: The central airways are patent. Low lung volumes bilaterally. Bibasilar atelectasis. No suspicious pulmonary nodule. No pleural effusion or pneumothorax. Bones: No aggressive osseous lesions. CTA ABDOMEN/PELVIS: Liver: The liver is normal in size without arterially enhancing mass. No biliary ductal dilation. Gallbladder: No radiopaque stones within the gallbladder. Spleen: Normal size. Pancreas: Unremarkable. Adrenals: No adrenal mass. Kidneys: Tiny nonobstructing right lower pole renal calculus. No hydronephrosis. Bladder: Distended and unremarkable. Reproductive Organs: Markedly enlarged ovaries with numerous ovarian cysts. The uterus is compressed due to adjacent ovaries, however is grossly unremarkable. Bowel: Moderately distended stomach. The small and large bowel loops are normal in caliber. Moderate ascites throughout the abdomen and pelvis. No pneumoperitoneum. Normal appendix. Lymph nodes: Prominent mesenteric nodes, likely reactive. Vasculature: The abdominal aorta is normal in caliber. No traumatic abdominal aortic injury or retroperitoneal hematoma. The origins of the celiac, SMA and SHEYLA are widely patent. The single bilateral renal arteries are widely patent. The bilateral common iliac arteries are widely patent without aneurysmal dilation. Bones: No aggressive osseous lesions. CT/CTA Chst, Abd, Pel W and/or WO IMPRESSION: CTA chest: 1. No traumatic thoracic aortic aneurysm or mediastinal hematoma. 2. Ectasia of the main pulmonary artery, which can be seen with pulmonary hyper tension. CTA abdomen/pelvis: 1. No traumatic abdominal aortic injury or retroperitoneal hematoma. 2. Markedly enlarged ovaries with numerous ovarian cysts and moderate volume as cites, compatible with ovarian hyperstimulation syndrome. Reading Location: [id number]
--- NOTE | 2024-10-11 21:09 | EDS_ITS ---
HPI History of Present Illness Chief Complaint: Shortness of Breath Detail of Chief Complaint: Shortness of breath and abdominal pain Informant: patient Narrative Narrative: Patient presents to the emergency department complaint shortness of breath and abdominal pain that started this morning. Patient states that she had driven to [facility] this morning to have egg retrieval at a fertility clinic. She states that they went in through the vagina and they had to puncture her bladder to get some of the eggs. Patient complaining of hard time emptying her bladder. She complains of abdominal pain as well as pain in her chest with deep breath and feels short of breath. Patient denies any fever. Patient states that she was started on an antibiotic and given something for pain but it is not helping her pain. Patient has history of PCOS. No prior history of PE or DVT [facility] Medical History Abnormal uterine bleeding Conceived by in vitro fertilization Supervision of high-risk Decreased movement False labor before 37 completed weeks of gestation premature rupture of membranes (PPROM) with unknown onset of labor Genetic testing of female Wears contact lenses Anxiety Alcohol use Heartburn Vapes nicotine containing substance Endometrial polyp Abnormal uterine bleeding (AUB) Home Medications ?Medication ?Instructions ?Recorded ?Last Taken ?Type omeprazole 20 mg tablet,delayed 20 mg PO DAILY 4 02/16/24 08:00 History release 20 mg multivitamin no.47-iron fum 27 1 cap PO DAILY #30 caps 12/15/23 02/16/24 12:00 Rx mg-folate no.1 1 mg-dha 300 mg 1 cap capsule (PNV-DHA) blood sugar diagnostic (Blood #50 ea 02/26/24 Unknown Rx Glucose Test strips) blood-glucose meter #1 ea 02/26/24 Unknown Rx lancets 30 gauge (Droplet Lancets) #200 ea 02/26/24 Un known Rx flash glucose scanning reader #1 ea 02/28/24 Unknown R x (FreeStyle Lexi 2 [place]) flash glucose sensor (FreeStyle #1 ea 02/28/24 Unknown Rx Lexi 2 Sensor kit) PNV no.151-iron 27 mg-folic 800 1 cap PO DAILY 5 Unknown History mcg-omega3 260 [id number] capsule ( Multi-DHA (with vitamin K)) cabergoline 0.5 mg tablet 0.5 mg PO DAILY 10/11/24 Unk nown History cephalexin 500 mg capsule 500 mg PO BID 10/11/24 Unkno wn History cholecalciferol (vitamin D3) 50 2,000 unit PO DAILY Unknown History mcg (2,000 unit) capsule (D3-2000) metformin 750 mg tablet,extended 750 mg PO DAILY 10/11 Unknown History release 24 hr phenazopyridine 200 mg tablet 200 mg PO BID 10/11/24 U nknown History (Pyridium) prednisone 10 mg tablet 10 mg PO BID 10/11/24 Unknow n History Allergy/AdvReac Type Severity Reaction Status Date / Time Latex, Natural Rubber Allergy Intermediate Other Verified 10/11/24 20:55 azithromycin (From Zithromax) Allergy JOHN Verified 10/11/24 20:55 VIJI'S SYNDROME venlafaxine Allergy Other Verified 10/11/24 20:55 Family History Mother Diabetes Uncle Diabetes Grandmother Diabetes Surgical History [place] teeth extracted History of hysteroscopy Status post laparoscopy S/P D&C (status post dilation and curettage) Hx of lumpectomy History of tonsillectomy and adenoidectomy Social History adopted: No household members: spouse number of children: 0 current occupational status: employed current occupation: [employer] current occupational exposures/hazards: No pets and animals: Yes (Avoid litterbox) pets and animals: cat(s) and dog(s) history of recent travel: Yes ([facility]) out of state: Yes out of country: No sexually active: Yes Smoking Status: Former smoker Electronic Cigarette Use: with nicotine alcohol intake: never substance use type: does not use well-balanced diet: daily or most days caffeine: No eating out: 1-3 times/week during the past year weight has: increased > 10 lbs what type of physical activity do you participate in: none jessica/christianity: Religion seatbelt use: always do you feel safe at home: Yes additional social history: - Rene- Chuck ROS ROS ED Review of Systems ROS Unobtainable: other Constitutional Constitutional ED: Reports lethargy; Denies chills, fever(s), sweats or weight loss Eyes Eyes: Denies blurry vision, change in vision or diplopia ENT ENT ED: Denies rhinorrhea or sore throat Cardiovascular Cardiovascular: Reports chest pain; Denies orthopnea or racing heartbeat Respiratory/Chest Respiratory/Chest: Reports dyspnea and dyspnea on exertion; Denies cough, orthopnea or sputum Gastrointestinal Gastrointestinal: Reports abdominal pain; Denies diarrhea, nausea or vomiting Genitourinary Genitourinary ED: Denies dysuria, hematuria or urinary frequency Musculoskeletal Musculoskeletal: Denies arthralgias, back pain, myalgias or neck pain Integumentary Denies abscess, Abrasions or rash Neurologic Neurologic: Denies headache(s) or weakness Psychiatric Psychiatric: Denies anxiety, depression or suicidal thoughts Endocrine Endocrinology: Denies polydipsia, polyphagia or polyuria Hematologic/Lymphatic Hematologic/Lymphatic: Denies easy bleeding, easy bruising or lymphadenopathy Allergic/Immunologic Allergic/Immunologic ED: Denies mouth swelling, tongue swelling or urticaria EXAM Physical Exam Const Vital Signs: 10/11/24 20:53 10/11/24 21:39 10/11/24 22:53 Temperature 98.2 F Temperature Source Oral Pulse Rate 103 H 98 Respiratory Rate 18 23 H Respiratory Effort Short of Breath Respiratory Pattern Tachypnea Blood Pressure 119/88 H 124/89 H Blood Pressure Mean 98 100 Pulse Ox 100 95 Oxygen Delivery Method Room Air Room Air Room Air Positive well nourished and well developed General Appearance ED: well developed and NAD HEENT Reports TM's clear and moist mucous membranes normocephalic and atraumatic; Negative for trauma or tenderness Tympanic Membrane ED: Yes TM's clear Eyes PERRL and EOMs intact bilaterally General Eye ED: Negative for pale conjunctiva or scleral icterus Neck no lymphadenopathy, supple and no JVD General: Negative for tenderness Chest Wall inspection of chest normal and palpation of chest normal Chest: Negative for tenderness Resp normal respiratory effort and clear to auscultation bilaterally Effort and Inspection: Negative for respiratory distress or pain with movement Auscultation: Negative for rhonchi, wheezes or diminished lung sounds Cardio regular rate, regular rhythm, S1 normal heart sound, S2 normal heart sound and no murmurs Peripheral Pulses: pulses 2+ throughout GI normal to inspection, nondistended, normoactive bowel sounds, soft to palpation, non-distended and no masses GI Narrative: Diffuse tenderness palpation. There is no rebound, rigidity, or peritoneal signs. No mass palpated. Back/Spine no CVA tenderness and no thoracic nor lumbar tenderness Extremity normal to inspection General Extremety ED: Negative for edema General Extremity: Negative for edema Neuro oriented x3, CN's II-XII intact bilaterally, no sensory deficits noted and gait normal Sensorium / Orientation: awake, alert, oriented to person, oriented to place and oriented to time Motor Exam: strength 5/5 throughout and strength abnormal Psych mental status grossly normal Skin no rashes or lesions noted and no wounds MDM MDM MDM Narrative Medical decision making narrative: Patient presents to the emergency department with severe abdominal pain and difficulty voiding urine. Complains of painful respirations. CBC with differential, 22.5 with hemoglobin 7.6 and platelet count of 321. Chemistries unremarkable. BUN 10 creatinine 0.58. Serum hCG was negative. Urinalysis positive for nitrites however no leukocyte esterase and no WBCs at rare bacteria. CT scan of the abdomen pelvis as well as CT scan of the chest with IV contrast obtained. No evidence for PE noted on CT chest. She had some ectasia of the main pulmonary artery which can be seen with pulmonary hypertension. Patient also had markedly enlarged ovaries with numerous ovarian cyst and moderate volume ascites compatible with ovarian hyperstimulation syndrome. I discussed case with Dr. Franco who knows the patient well. I was asked to transfer patient to tertiary care center at [facility] for definitive treatment. Discussed case with Dr. Covarrubias at [facility] who accepted transfer of patient to their facility. While in department she was medicated with Dilaudid and Zofran. Patient also had a West catheter placed and had 800 cc of urine obtained. Lab Data Attestation: I reviewed the patient's lab results. Labs: Laboratory Results - last 24 hr 10/11/24 10/11/24 21:20 22:56 WBC 22.5 H RBC 3.85 L Hgb 11.6 L Hct 34.0 L MCV 88.3 MCH 30.1 MCHC 34.1 RDW Std Deviation 41.7 RDW Coeff of Lizbet 12.9 Plt Count 321 MPV 9.2 Immature Gran % (Auto) 0.600 Neut % (Auto) 87.1 H Lymph % (Auto) 8.2 L [place] % (Auto) 4.0 Eos % (Auto) 0.0 Baso % (Auto) 0.1 Absolute Neuts (auto) 19.6 H Absolute Lymphs (auto) 1.84 Nucleated RBC % 0 Sodium 136 Potassium 4.1 Chloride 102 Carbon Dioxide 21.9 Anion Gap 12 BUN 10 Creatinine 0.58 L Estim Creat Clear Calc 147.18 Est GFR (MDRD) Non-Af 127 BUN/Creatinine Ratio 17.7 Glucose 139 H Calcium 9.1 Serum , Qual NEGATIVE Urine Color Yellow Urine Clarity Clear Urine pH 7.0 Ur Specific [place] 1.010 Urine Protein 30 H Urine Glucose (UA) Normal Urine Ketones Negative Urine Occult Blood 150 H Urine Nitrite Positive H Urine Bilirubin 1 H Urine Urobilinogen 4 H Ur Leukocyte Esterase Negative Urine RBC 0 SEEN Urine WBC 0 SEEN Ur Squamous Epith Cells 0 SEEN Urine Bacteria RARE Urine Mucus 0 SEEN Radiography Diagnostic Testing: Clinical Impression(s) from Imaging Studies Chest/Abdomen/Pelvis CTA 10/11/24 21:08 IMPRESSION: CTA chest: 1. No traumatic thoracic aortic aneurysm or mediastinal hematoma. 2. Ectasia of the main pulmonary artery, which can be seen with pulmonary hypertension. CTA abdomen/pelvis: 1. No traumatic abdominal aortic injury or retroperitoneal hematoma. 2. Markedly enlarged ovaries with numerous ovarian cysts and moderate volume ascites, compatible with ovarian hyperstimulation syndrome. Reading Location: [facility] Discharge Plan Triage Chief Complaint: Shortness of Breath Other Complaint: Abd Pain ED Provider: Fern Marroquin Dx/Rx/DC Orders Clinical Impression: Abdominal pain, Ovarian hyperstimulation syndrome, Leukocytosis, Acute urinary retention Prescriptions: No Action omeprazole 20 mg tablet,delayed release (DR/EC) 20 mg PO DAILY (DME) FreeStyle Lexi 2 [place] Misc See Rx Instructions .Route Qty: 1 0RF Rx Instructions: As directed (DME) FreeStyle Lexi 2 Sensor Kit See Rx Instructions .Route Qty: 1 0RF Rx Instructions: As directed cholecalciferol (vitamin D3) [D3-2000] 50 mcg (2,000 unit) capsule 2,000 unit PO DAILY cephalexin 500 mg capsule 500 mg PO BID phenazopyridine [Pyridium] 200 mg tablet 200 mg PO BID prednisone 10 mg tablet 10 mg PO BID cabergoline 0.5 mg tablet 0.5 mg PO DAILY metformin 750 mg tablet extended release 24 hr 750 mg PO DAILY Multi-DHA(with vit K) 27 mg iron-800 mcg-260 mg capsule 1 cap PO DAILY PNV-DHA 27 mg iron-1 mg -300 mg capsule 1 cap PO DAILY Qty: 30 12RF (DME) blood-glucose meter Misc See Rx Instructions .ROUTE .MEDSUPPLY Qty: 1 0RF Rx Instructions: As directed (DME) Blood Glucose Test Strip See Rx Instructions .ROUTE .MEDSUPPLY Qty: 50 6RF Rx Instructions: Check blood sugars Fasting and 2 hours after breakfast, lunch, and dinner. (DME) lancets [Droplet Lancets] 30 gauge misc See Rx Instructions .ROUTE .MEDSUPPLY Qty: 200 2RF Rx Instructions: Check blood sugars fasting and 2 hours after breakfast, lunch, and supper. Primary Care Provider: Anna Zepeda Referrals: Anna Zepeda PA [Primary Care Provider] - Print Language: Turkish Disposition Disposition: DC/Tx to Another Type of HCF
[2024-10-11] MEDS: HYDROmorphone 1 MG/ML Syringe IV (21:28)
[2024-10-11] MEDS: Ondansetron 4 MG/2 ML Vial IV (21:29)
[2024-10-11 21:33] LABS: Absolute Lymphocyte Count 1.84 X10^3/uL (0.83-4.51); Absolute Neutrophil Count 19.6 X10^3/uL (2.0-7.7); Basophil# 0.03 X10^3/uL; Basophil% 0.1 % (0-1); Hemoglobin 11.6 g/dL (12.0-15.0); Lymphocyte # 1.84 X10^3/ul (0.83-4.51); Lymphocyte % 8.2 % (19-41); Mean Corp Hgb Conc 34.1 g/dL (32-36); Mean Corpuscular Hgb 30.1 pg (27.0-32.0); Mean Corpuscular Volume 88.3 fL (81-99); Mean Platelet Vol. 9.2 fl (6.2-12.0); Monocyte# 0.91 X10^3/uL; NRBC Flagged by Analyzer 0 % (0-5); Neutrophil # 19.57 X10^3/uL (2.7-7.7); Neutrophil % 87.1 % (47-70); Platelet Count 321 K/mm3 (150-450); RBC Distribution Width CV 12.9 % (11.6-14.6); RBC Distribution Width SD 41.7 fl (35.1-43.9); Red Blood Count 3.85 M/mm3 (4.2-5.4); White Blood Count 22.5 K/mm3 (4.4-11.0)
[2024-10-11 21:39] VITALS: O2SAT 96
[2024-10-11 21:57] LABS: Internal QC Validated? YES +Cl - CLEAR BKGD; Pregnancy, Serum, hCG Quali. NEGATIVE Negative
[2024-10-11 21:59] LABS: Anion Gap 12 (5-15); BUN 10 mg/dL (4-19); BUN/Creat Ratio 17.7 RATIO (10-20); Calcium,Total 9.1 mg/dL (7.6-11.0); Carbon Dioxide 21.9 mmol/L (21.0-32.0); Chloride 102 mmol/L (98-108); Creatinine, Serum 0.58 mg/dL (0.70-1.20); EST Glomerular Filtration Rate 127 (>60); Estimated Creatinine Clearance 147.18 ml/min (50-250); Glucose 139 mg/dL (70-99); Potassium 4.1 mmol/L (3.3-5.1); Sodium Level 136 mmol/L (133-145)
[2024-10-11 22:53] VITALS: BP 124/89; PULSE 98; RESP 23; O2SAT 95
[2024-10-11 23:23] LABS: Mucous, Urine 0 SEEN /hpf (<or=2+); Red Blood Cells-Urine 0 SEEN /hpf (0-5); Squamous Epithelial Cells - UA 0 SEEN /hpf (5-10); White Blood Cells 0 SEEN /hpf (0-5)
[2024-10-11 23:24] LABS: Color, Urine Yellow (Yellow); Glucose, Dipstick Normal (Normal); Ketone-Dipstick Negative (Negative); Leukocyte Esterase-Dipstick Negative /ul (Negative); Nitrite-Dipstick Positive (Negative); Occult Blood-Urine 150 /ul (Negative); Protein-Dipstick 30 mg/dl (Negative); Urine Clarity Clear (Clear); Urine Urobilinogen 4 mg/dl (Normal)
[2024-10-11 23:28] LABS: Urine Bilirubin Dipstick 1 mg/dL (Negative)
[2024-10-11 23:33] LABS: Bacteria RARE /hpf (None Seen)
[2024-10-12] VITALS: BP 101/62; PULSE 98; RESP 16; O2SAT 97
[2024-10-12] MEDS: HYDROmorphone 0.5 MG/0.5 ML SYRINGE IV (01:03)
[2024-10-12] MEDS: Ondansetron 4 MG/2 ML Vial IV (01:03)
[2024-10-12 01:59] VITALS: BP 110/73; PULSE 94; RESP 21; TEMP 36.8; O2SAT 96
== END 2024-10-12 01:58 | disposition other institution (70) ==
PROVIDERS: Emergency Provider Emergency Medicine; Visit Provider Emergency Medicine
DX: R10.9 Unspecified abdominal pain (principal); I28.8 Other diseases of pulmonary vessels; R33.9 Retention of urine, unspecified; N98.1 Hyperstimulation of ovaries; R07.89 Other chest pain; R06.02 Shortness of breath; D72.829 Elevated white blood cell count, unspecified; E28.2 Polycystic ovarian syndrome; Z79.84 Long term (current) use of oral hypoglycemic drugs; Z87.891 Personal history of nicotine dependence
CPT/HCPCS: 51702; 71275; 74174; 80048; 81001; 84703; 85025; 96374; 96375; 96376; 99285; Q9967; A4216; J2405

== ENCOUNTER 2024-10-14 18:26 | Emergency (ER) | payer OTHER, SELFPAY ==
[2024-10-14 18:26] VITALS: BP 99/75; PULSE 95; RESP 16; TEMP 36.8; O2SAT 98; BMI 33.9
[2024-10-14 20:00] VITALS: BP 99/75; PULSE 95; RESP 16; TEMP 36.8; O2SAT 98
[2024-10-14 20:47] LABS: Absolute Lymphocyte Count 2.42 X10^3/uL (0.83-4.51); Absolute Neutrophil Count 7.7 X10^3/uL (2.0-7.7); Basophil# 0.02 X10^3/uL; Basophil% 0.2 % (0-1); Eosinophil# 0.18 X10^3/uL; Eosinophils% 1.6 % (0-5); Hemoglobin 10.4 g/dL (12.0-15.0); Lymphocyte # 2.42 X10^3/ul (0.83-4.51); Lymphocyte % 21.9 % (19-41); Mean Corp Hgb Conc 32.5 g/dL (32-36); Mean Corpuscular Hgb 29.9 pg (27.0-32.0); Mean Platelet Vol. 9.2 fl (6.2-12.0); Monocyte# 0.72 X10^3/uL; Monocyte% 6.5 % (0-10); NRBC Flagged by Analyzer 0 % (0-5); Neutrophil # 7.68 X10^3/uL (2.7-7.7); Neutrophil % 69.3 % (47-70); Platelet Count 237 K/mm3 (150-450); RBC Distribution Width CV 14.4 % (11.6-14.6); RBC Distribution Width SD 46.8 fl (35.1-43.9); Red Blood Count 3.48 M/mm3 (4.2-5.4); White Blood Count 11.1 K/mm3 (4.4-11.0)
--- NOTE | 2024-10-14 20:50 | EX.ED.DYSGE1 ---
HPI <CHERYL Weinstein - Last Filed: 10/14/24 21:43> History of Present Illness Chief Complaint: Abd Pain Narrative Narrative: 29-year-old female presents with abdominal pain. On 10/11/2024 she drove to [place], [place] to have egg retrieval at a fertility clinic. They did the procedure vaginally and punctured her bladder while retrieving some eggs. They prescribed Keflex and Pyridium. She drove home that same day and developed chest pain, shortness of breath, nausea and abdominal pain and had difficulty emptying her bladder. She was evaluated at [place] [facility] on the same day 10/[address] scan of chest abdomen pelvis negative for PE. There were enlarged ovaries with numerous cysts and moderate volume ascites compatible with ovarian hyperstimulation syndrome. She also had a West placed for urinary retention. She was transferred to [facility] for definitive treatment. She states they attempted a paracentesis yesterday but were unsuccessful. She showed me the report?they did left-sided paracentesis but the fluid dispersed and there was not enough to remove. Patient states she had been constipated and did not have a bowel movement for 6 days so they were concerned they may hit her bowel and the procedure was terminated. Her West catheter was also removed yesterday. Mulugeta also prescribed Lovenox shots x 1 week. She presents because she had a low-grade temperature of 99 ?F and still having nausea and generalized abdominal pain and is urinating frequent small amounts. The chest pain and shortness of breath are much better. [facility], [facility] <CHERYL Weinstein - Last Filed: 10/14/24 21:43> [facility] Medical History Abnormal uterine bleeding Conceived by in vitro fertilization Supervision of high-risk Decreased movement False labor before 37 completed weeks of gestation premature rupture of membranes (PPROM) with unknown onset of labor Genetic testing of female Wears contact lenses Anxiety Alcohol use Heartburn Vapes nicotine containing substance Endometrial polyp Abnormal uterine bleeding (AUB) Home Medications ?Medication ?Instructions ?Recorded ?Last Taken ?Type omeprazole 20 mg tablet,delayed 20 mg PO DAILY 10/03/23 02/16/24 08:00 History release 20 mg multivitamin no.47-iron fum 27 1 cap PO DAILY #30 caps 12/15/23 02/16/24 12:00 Rx mg-folate no.1 1 mg-dha 300 mg 1 cap capsule (PNV-DHA) blood sugar diagnostic (Blood #50 ea 02/26/24 Unknown Rx Glucose Test strips) blood-glucose meter #1 ea 02/26/24 Unknown Rx lancets 30 gauge (Droplet Lancets) #200 ea 02/26/24 Unknown Rx flash glucose scanning reader #1 ea 02/28/24 Unknown Rx (FreeStyle Lexi 2 Hurley) flash glucose sensor (FreeStyle #1 ea 02/28/24 Unknown Rx Lexi 2 Sensor kit) PNV no.151-iron 27 mg-folic 800 1 cap PO DAILY 10/11/24 Unknown History mcg-omega3 260 eg-dey-got-fish capsule ( Multi-DHA (with vitamin K)) cabergoline 0.5 mg tablet 0.5 mg PO DAILY 10/11/24 Unknown History cephalexin 500 mg capsule 500 mg PO BID 10/11/24 Unknown History cholecalciferol (vitamin D3) 50 2,000 unit PO DAILY 10/11/24 Unknown History mcg (2,000 unit) capsule (D3-2000) metformin 750 mg tablet,extended 750 mg PO DAILY 10/11/24 Unknown History release 24 hr phenazopyridine 200 mg tablet 200 mg PO BID 10/11/24 Unknown History (Pyridium) prednisone 10 mg tablet 10 mg PO BID 10/11/24 Unknown History peg 3350-electrolytes 236 240 ml PO Q10M PRN #4,000 mL 10/14/24 Unknown Rx gram-22.74 gram-6.74 gram-5.86 gram solution (Golytely) Allergy/AdvReac Type Severity Reaction Status Date / Time Latex, Natural Rubber Allergy Intermediate Other Verified 10/14/24 18:30 azithromycin (From Zithromax) Allergy JOHN Verified 10/14/24 18:30 VIJI'S SYNDROME venlafaxine Allergy Other Verified 10/14/24 18:30 Family History Mother Diabetes Uncle Diabetes Grandmother Diabetes Surgical History [place] teeth extracted History of hysteroscopy Status post laparoscopy S/P D&C (status post dilation and curettage) Hx of lumpectomy History of tonsillectomy and adenoidectomy Social History adopted: No household members: spouse number of children: 0 current occupational status: employed current occupation: [employer] current occupational exposures/hazards: No pets and animals: Yes (Avoid litterbox) pets and animals: cat(s) and dog(s) history of recent travel: Yes ([facility]) out of state: Yes out of country: No sexually active: Yes Smoking Status: Former smoker Electronic Cigarette Use: with nicotine alcohol intake: never substance use type: does not use well-balanced diet: daily or most days caffeine: No eating out: 1-3 times/week during the past year weight has: increased > 10 lbs what type of physical activity do you participate in: none jessica/sikh: Scientologist seatbelt use: always do you feel safe at home: Yes additional social history: - Andrea PHILLIPS <CHERYL Weinstein - Last Filed: 10/14/24 21:43> ROS ED ROS Narrative Constitutional: Negative for fever, chills. GI: Positive for abdominal pain, nausea, constipation. : Negative for dysuria, hematuria. EXAM <CHERYL Weinstein - Last Filed: 10/14/24 21:43> Physical Exam Narrative Exam Narrative: CONST: Patient sitting in no acute distress. EYES: Normal inspection. NECK: Normal inspection. RESP: No respiratory distress, CTAB. CVS: Regular rate and rhythm, no murmur, no gallop. ABD: Soft with periumbilical tenderness, enlarged uterus, no guarding or rebound. SKIN: Color normal, no rash, warm, dry, intact. EXTREMITIES: Normal appearance, no pedal edema. NEURO: Alert and answering questions appropriately. PSYCH: Normal affect. Const Vital Signs: 10/14/24 18:26 10/14/24 20:00 10/14/24 20:56 Temperature 98.2 F 98.2 F 99.0 F Temperature Source Oral Oral Oral Pulse Rate 95 95 87 Respiratory Rate 16 16 16 Blood Pressure 99/75 99/75 116/75 Blood Pressure Mean 83 83 88 Pulse Ox 98 98 99 Oxygen Delivery Method Room Air Room Air Room Air 10/14/24 21:00 Temperature 99 F Temperature Source Oral Pulse Rate 92 Respiratory Rate 16 Blood Pressure 104/64 Blood Pressure Mean 77 Pulse Ox 100 Oxygen Delivery Method Room Air <Dr. Soren Babcock MD - Last Filed: 10/14/24 21:46> Physical Exam Const Vital Signs: 10/14/24 18:26 10/14/24 20:00 10/14/24 20:56 Temperature 98.2 F 98.2 F 99.0 F Temperature Source Oral Oral Oral Pulse Rate 95 95 87 Respiratory Rate 16 16 16 Blood Pressure 99/75 99/75 116/75 Blood Pressure Mean 83 83 88 Pulse Ox 98 98 99 Oxygen Delivery Method Room Air Room Air Room Air 10/14/24 21:00 Temperature 99 F Temperature Source Oral Pulse Rate 92 Respiratory Rate 16 Blood Pressure 104/64 Blood Pressure Mean 77 Pulse Ox 100 Oxygen Delivery Method Room Air MDM <CHERYL Weinstein - Last Filed: 10/14/24 21:43> [facility] MDM Narrative Medical decision making narrative: Differential includes but not limited to: Urinary retention, UTI, intra-abdominal infection, ovarian hyperstimulation, constipation 29-year-old female had eggs retrieval 3 days ago and was told her bladder was punctured. Since then she has had nausea, abdominal pain constipation, and urinary issues. She was at [facility] the last few days and they terminated paracentesis because there was not enough fluid to remove. She presents due to continued abdominal symptoms and frequent urination. She appears well and nontoxic and is afebrile and hemodynamically stable. Abdomen is soft and mildly bloated from enlarged uterus with no other concerning findings. Her previous leukocytosis has significantly trended down from 22.5 to 11.1 today. Hemoglobin of 10.4 is slightly lower than previous. CMP and lipase are negative. Serum test negative. She just had a CT of the chest/abdomen/pelvis 3 days ago and it showed ascites and ovarian hyperstimulation so do not think this needs repeated as her labs are better and her exam is benign. Her postvoid residual is 50 cc. Urinalysis is contaminated with 25-50 epithelials but is nitrite positive so was sent for culture. She is on Keflex from the fertility clinic and should continue this. KUB shows significant stool burden which is likely contributing to her abdominal pain. I prescribed GoLytely. She was discharged in stable condition. Lab Data Attestation: I reviewed the patient's lab results. Labs: Laboratory Results - last 24 hr 10/14/24 10/14/24 20:37 20:56 WBC 11.1 H RBC 3.48 L Hgb 10.4 L Hct 32.0 L MCV 92.0 MCH 29.9 MCHC 32.5 RDW Std Deviation 46.8 H RDW Coeff of Lizbet 14.4 Plt Count 237 MPV 9.2 Immature Gran % (Auto) 0.500 Neut % (Auto) 69.3 Lymph % (Auto) 21.9 [place] % (Auto) 6.5 Eos % (Auto) 1.6 Baso % (Auto) 0.2 Absolute Neuts (auto) 7.7 Absolute Lymphs (auto) 2.42 Nucleated RBC % 0 Sodium 137 Potassium 3.7 Chloride 101 Carbon Dioxide 24.3 Anion Gap 11 BUN 9 Creatinine 0.60 L Estim Creat Clear Calc 141.63 Est GFR (MDRD) Non-Af 126 BUN/Creatinine Ratio 15.2 Glucose 112 H Calcium 8.8 Total Bilirubin 0.56 AST 19 ALT 14 Alkaline Phosphatase 65 Total Protein 6.4 Albumin 4.0 Globulin 2.4 Albumin/Globulin Ratio 1.7 Lipase 29 Serum , Qual NEGATIVE Urine Color Rita Urine Clarity Sl. Cloudy Urine pH 7.0 Ur Specific [place] 1.015 Urine Protein 30 H Urine Glucose (UA) Normal Urine Ketones Negative Urine Occult Blood 150 H Urine Nitrite Positive H Urine Bilirubin 3 H Urine Urobilinogen 8 H Ur Leukocyte Esterase 25 H Urine RBC 10-25 SEEN Urine WBC 0-5 SEEN Ur Squamous Epith Cells 25-50 SEEN Amorphous Sediment 1+ PHOS Urine Bacteria 0 SEEN Urine Mucus 0 SEEN Radiography Diagnostic Testing: Clinical Impression(s) from Imaging Studies KUB X-Ray 10/14/24 21:24 IMPRESSION: CONSTIPATION. Reading Location: [facility] <Dr. Soren Babcock MD - Last Filed: 10/14/24 21:46> [facility] MDM Narrative Medical decision making narrative: Differential includes but not limited to: Urinary retention, UTI, intra-abdominal infection, ovarian hyperstimulation, constipation 29-year-old female had eggs retrieval 3 days ago and was told her bladder was punctured. Since then she has had nausea, abdominal pain constipation, and urinary issues. She was at [facility] the last few days and they terminated paracentesis because there was not enough fluid to remove. She presents due to continued abdominal symptoms and frequent urination. She appears well and nontoxic and is afebrile and hemodynamically stable. Abdomen is soft and mildly bloated from enlarged uterus with no other concerning findings. Her previous leukocytosis has significantly trended down from 22.5 to 11.1 today. Hemoglobin of 10.4 is slightly lower than previous. CMP and lipase are negative. Serum test negative. She just had a CT of the chest/abdomen/pelvis 3 days ago and it showed ascites and ovarian hyperstimulation so do not think this needs repeated as her labs are better and her exam is benign. Her postvoid residual is 50 cc. Urinalysis is contaminated with 25-50 epithelials but is nitrite positive so was sent for culture. She is on Keflex from the fertility clinic and should continue this. KUB shows significant stool burden which is likely contributing to her abdominal pain. I prescribed GoLytely. She was discharged in stable condition. I have personally performed a face to face assessment of the patient and have reviewed the LEANNE Note. I performed a substantive portion of the visit including all aspects of the following. My alexandre findings include: History is [29-year-old female recently had eggs harvested. Complaining of abdominal discomfort and constipation. Recently was seen and worked up at a CT was sent to [facility]. They attempted at that time a paracentesis but there was enough fluid to drain.] Exam is [well-appearing 29-year-old female. Vital signs stable afebrile. H EENT exam moist with membranes. Pupils round reactive light. Lungs clear to auscultation bilaterally. Heart regular rhythm no murmur. Rate 90. Chest wall ribs nontender. Abdomen soft nondistended normal bowel sounds peritoneal signs. No hernia or mass. No distention. Moving all 4 extremities. Nontender no edema. Neurologically she is awake alert no focal motor deficits.] Medical Decision Making [29-year-old female suspect constipation versus other etiologies. She had recent CT imaging of her abdomen I do not think that needs to be repeated. We will obtain a KUB.] Other additions or changes: [Patient to be discharged home with magnesium citrate for constipation.] History & Record Review Discussion w/independent historian: Patient Additional record(s) reviewed:: Prior inpatient record, Prior outpatient record, Prior ED visit, Prior labs and No prior records Lab Data Lab results narrative: CBC shows a white count 11.1 much improved. H&H 10.4 and 32. Platelets 237. Electrolytes show gap 11. BUN 9 creatinine 0.6. Glucose 112. Liver enzymes normal. Lipase 29. Serum test negative. UA is positive for nitrites 10-25 red cells no white cells 0 bacteria KUB shows increased stool throughout the colon and rectum consistent with constipation. Labs: Laboratory Results - last 24 hr 10/14/24 10/14/24 20:37 20:56 WBC 11.1 H RBC 3.48 L Hgb 10.4 L Hct 32.0 L MCV 92.0 MCH 29.9 MCHC 32.5 RDW Std Deviation 46.8 H RDW Coeff of Lizbet 14.4 Plt Count 237 MPV 9.2 Immature Gran % (Auto) 0.500 Neut % (Auto) 69.3 Lymph % (Auto) 21.9 [place] % (Auto) 6.5 Eos % (Auto) 1.6 Baso % (Auto) 0.2 Absolute Neuts (auto) 7.7 Absolute Lymphs (auto) 2.42 Nucleated RBC % 0 Sodium 137 Potassium 3.7 Chloride 101 Carbon Dioxide 24.3 Anion Gap 11 BUN 9 Creatinine 0.60 L Estim Creat Clear Calc 141.63 Est GFR (MDRD) Non-Af 126 BUN/Creatinine Ratio 15.2 Glucose 112 H Calcium 8.8 Total Bilirubin 0.56 AST 19 ALT 14 Alkaline Phosphatase 65 Total Protein 6.4 Albumin 4.0 Globulin 2.4 Albumin/Globulin Ratio 1.7 Lipase 29 Serum , Qual NEGATIVE Urine Color Rita Urine Clarity Sl. Cloudy Urine pH 7.0 Ur Specific [place] 1.015 Urine Protein 30 H Urine Glucose (UA) Normal Urine Ketones Negative Urine Occult Blood 150 H Urine Nitrite Positive H Urine Bilirubin 3 H Urine Urobilinogen 8 H Ur Leukocyte Esterase 25 H Urine RBC 10-25 SEEN Urine WBC 0-5 SEEN Ur Squamous Epith Cells 25-50 SEEN Amorphous Sediment 1+ PHOS Urine Bacteria 0 SEEN Urine Mucus 0 SEEN Radiography Diagnostic Testing: Clinical Impression(s) from Imaging Studies KUB X-Ray 10/14/24 21:24 IMPRESSION: CONSTIPATION. Reading Location: [facility] Discharge Plan Triage Chief Complaint: Abd Pain ED Midlevel Provider: Anabella Malave ED Provider: Soren Babcock Dx/Rx/DC Orders Clinical Impression: Constipation, Abdominal pain, Ovarian hyperstimulation syndrome Instructions: Abdominal Pain, ED Constipation (Adult) Prescriptions: No Action omeprazole 20 mg tablet,delayed release (DR/EC) 20 mg PO DAILY (DME) FreeStyle Lexi 2 Hurley Misc See Rx Instructions .Route Qty: 1 0RF Rx Instructions: As directed (DME) FreeStyle Lexi 2 Sensor Kit See Rx Instructions .Route Qty: 1 0RF Rx Instructions: As directed cholecalciferol (vitamin D3) [D3-2000] 50 mcg (2,000 unit) capsule 2,000 unit PO DAILY cephalexin 500 mg capsule 500 mg PO BID phenazopyridine [Pyridium] 200 mg tablet 200 mg PO BID prednisone 10 mg tablet 10 mg PO BID cabergoline 0.5 mg tablet 0.5 mg PO DAILY metformin 750 mg tablet extended release 24 hr 750 mg PO DAILY Multi-DHA(with vit K) 27 mg iron-800 mcg-260 mg capsule 1 cap PO DAILY PNV-DHA 27 mg iron-1 mg -300 mg capsule 1 cap PO DAILY Qty: 30 12RF (DME) blood-glucose meter Misc See Rx Instructions .ROUTE .MEDSUPPLY Qty: 1 0RF Rx Instructions: As directed (DME) Blood Glucose Test Strip See Rx Instructions .ROUTE .MEDSUPPLY Qty: 50 6RF Rx Instructions: Check blood sugars Fasting and 2 hours after breakfast, lunch, and dinner. (DME) lancets [Droplet Lancets] 30 gauge misc See Rx Instructions .ROUTE .MEDSUPPLY Qty: 200 2RF Rx Instructions: Check blood sugars fasting and 2 hours after breakfast, lunch, and supper. Primary Care Provider: Anna Zepeda Referrals: Anna Zepeda PA [Primary Care Provider] - Activity Restrictions/Additional Instructions: The x-ray of your abdomen shows significant constipation. I recommend you take magnesium citrate which is sold [id number]. Drink plenty of water and Gatorade to avoid dehydration as this will cause a lot of bowel movements. You also could be having pain from the ovarian hyperstimulation syndrome which should get better over time. 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 Print Language: Citizen Of [place] Disposition Disposition: Home, Self Care
[2024-10-14] MEDS: 0.9% Normal Saline (1000mL) 1,000 ML 999 ML IV (20:53)
[2024-10-14] MEDS: Ondansetron 4 MG/2 ML Vial IV (20:53)
[2024-10-14 20:54] LABS: Internal QC Validated? YES +Cl - CLEAR BKGD; Pregnancy, Serum, hCG Quali. NEGATIVE Negative
[2024-10-14 20:56] VITALS: BP 116/75; PULSE 87; RESP 16; TEMP 37.2; O2SAT 99
[2024-10-14 21:00] VITALS: BP 104/64; PULSE 92; RESP 16; TEMP 37.2; O2SAT 100
[2024-10-14 21:12] LABS: Lipase 29 U/L (13-75)
[2024-10-14 21:13] LABS: ALB/GLOB Ratio 1.7 RATIO (0.9-2.4); AST(SGOT) 19 U/L (<=31); Alanine Aminotransfer ALT/SGPT 14 U/L (<=34); Alkaline Phosphatase 65 U/L (35-104); Anion Gap 11 (5-15); BUN 9 mg/dL (4-19); BUN/Creat Ratio 15.2 RATIO (10-20); Calcium,Total 8.8 mg/dL (7.6-11.0); Carbon Dioxide 24.3 mmol/L (21.0-32.0); Chloride 101 mmol/L (98-108); EST Glomerular Filtration Rate 126 (>60); Estimated Creatinine Clearance 141.63 ml/min (50-250); Globulin 2.4 g/dL (2.2-4.2); Glucose 112 mg/dL (70-99); Potassium 3.7 mmol/L (3.3-5.1); Protein, Total 6.4 g/dL (5.9-8.4); Sodium Level 137 mmol/L (133-145); Total Bilirubin 0.56 mg/dL (0.00-1.30)
[2024-10-14 21:13] LABS: Bacteria 0 SEEN /hpf (None Seen); Mucous, Urine 0 SEEN /hpf (<or=2+)
[2024-10-14 21:19] LABS: Color, Urine Amber (Yellow); Glucose, Dipstick Normal (Normal); Ketone-Dipstick Negative (Negative); Leukocyte Esterase-Dipstick 25 /ul (Negative); Nitrite-Dipstick Positive (Negative); Occult Blood-Urine 150 /ul (Negative); Protein-Dipstick 30 mg/dl (Negative); Specific Gravity, Urine 1.015 (1.002-1.030); Urine Clarity Sl. Cloudy (Clear); Urine Urobilinogen 8 mg/dl (Normal)
[2024-10-14 21:20] LABS: Urine Bilirubin Dipstick 3 mg/dL (Negative)
--- NOTE | 2024-10-14 21:24 | RAD_ITS ---
PROCEDURE: ABDOMEN SINGLE VIEW (PORTABLE) 10/14/2024 REASON FOR EXAM: ABDOMINAL PAIN, CONSTIPATION TECHNIQUE: Single view abdomen. COMPARISON: None FINDINGS: Bowel gas: Nonobstructive bowel gas pattern. No evidence of obstruction. Mild stool burden within the large bowel. Calcifications: No suspicious calcifications. Bones: The bones are unremarkable. Other: RAD/Abdomen Single View (Portable) IMPRESSION: CONSTIPATION. Reading Location: [facility]
[2024-10-14 21:30] LABS: White Blood Cells 0-5 SEEN /hpf (0-5)
[2024-10-14 21:31] LABS: Squamous Epithelial Cells - UA 25-50 SEEN /hpf (5-10)
[2024-10-14 21:32] LABS: Amorphous Sediment 1+ PHOS; Red Blood Cells-Urine 10-25 SEEN /hpf (0-5)
[2024-10-14 21:58] VITALS: BP 110/87; PULSE 68; RESP 12; TEMP 36.8; O2SAT 100
[2024-10-14] MEDS: Acetaminophen 500 MG Tablet 1000 MG PO (21:59)
== END 2024-10-14 22:02 | disposition home or self-care (01) ==
LOC: ED 21:41
PROVIDERS: Physician Assistant; Emergency Provider Emergency Medicine; Visit Provider Emergency Medicine
DX: K59.00 Constipation, unspecified (principal); R35.0 Frequency of micturition; R33.9 Retention of urine, unspecified; Z87.891 Personal history of nicotine dependence; R11.0 Nausea; N85.2 Hypertrophy of uterus; R18.8 Other ascites; R06.02 Shortness of breath; R14.0 Abdominal distension (gaseous); R10.9 Unspecified abdominal pain; N83.8 Other noninflammatory disorders of ovary, fallopian tube and broad ligament
CPT/HCPCS: 74018; 80053; 81001; 83690; 84703; 85025; 87086; 96361; 96374; 99283; A4216; J2405

== ENCOUNTER → 2025-03-24 | Outpatient (CLI) | payer BC, SELFPAY ==
--- OUTSIDE RECORDS SUMMARY | 2025-03-24 07:13 | XMS RPT_ITS | CCD ---
Author Organization [facility] Care Team Providers Care Mechanical Inspector Name Role Phone Zbigniew Matta MD Primary Care Provider CHERYL Melvin Primary Care Provider CHERYL Melvin Referring Provider Dr. Julianna Newman Attending Provider [phone] Dr. Julianna Newman Referring Provider [phone] Dr. Julianna Newman Other Provider CHERYL Melvin Primary Care Provider Dr. Julianna Newman Attending Provider CHERYL Melvin Referring Provider Marco Melvin PA-C Unavailable [phone] Gastroenterology Provider Unavailable Azael Dunn PA-C, Federico García Unavailable Chelsea Paez MA Unavailable Unavailable Maryellen Reyes LPN Unavailable Unavailable Natalia DUENAS, Nandini Corona Unavailable Unavaila janusz Mar LPN, Alysia Unavailable Unavailable Minesh AMEZQUITA, Chin Unavailable Unavailable Unavailable Unavailable YOLA SCHAFFER Admitting Unavailable MARCO MELVIN PAC Consulting Unavailable YOLA SCHAFFER Attending Unavailable YOLA SCHAFFER Primary Care Unavailable PROVIDER, UNKNOWN Consulting Unavailable YOLA SCHAFFER Attending Unavailable YOLA SCHAFFER Primary Care Unavailable YOLA SCHAFFER Admitting Unavailable CHEYRL Melvin Primary Care Provider CHERYL Melvin Referring Provider Dr. Julianna Newman Attending Provider Dr. Venessa Newby Attending Provider [phone] Juancarlos TOBACCO HANGER, TOBACCO HANGER-C Denny Attending Provider [phone] Natalie Hopkins MA Unavailable Unavailable Unavailable Primary Care Provider Unavailsteffanie Nguyen MD, eJff Primary Care Provider [phone] LUCILA HO Attending Unavailable BAY, JEFF Primary Care Unavailable JULIANNA VELARDE Referring Unavailab le TERESA, JULIANNA Attending Unavailable TERESA, JULIANNA Referring Unavailable BAY, JEFF Primary Care Unavailable BAY, JEFF Primary Care Unavailable TERESA, JULIANNA Attending Unavailable TERESA, JULIANNA Referring Unavailable BAY, JEFF Primary Care Unavailable BAY, JEFF Primary Care Unavailable HLAVATY, JADA Attending Unavailable HLAVATY, JADA Referring Unavailable SAUMYA MANCIA Attending Unavailable ZEVEVELDRicky, JULIANNA R Referring Unavailab le BAY, JEFF Primary Care Unavailable LUCILA HO Attending Unavailable LUCILA HO Referring Unavailable BAY, JEFF Primary Care Unavailable DENNY BAUER Referring Unavailable BAY, JEFF Primary Care Unavailable YOANNA SIMENTAL Attending Unavailable Marco Morales Primary Care Provider Marco Morales Referring Provider Adrián TOBACCO HANGER-CLilly Attending Provider Adrián TOBACCO HANGER-CLilly Referring Provider Dr. Julianna Newman DO Attending Provider Dr. Julianna Newman DO Referring Provider Dr. Yola Schaffer MD Other Provider [phone] Fern Marroquin DO Emergency Provider Marco Melvin Primary Care Provider BARAK COVARRUBIAS Admitting Unavailable BARAK COVARRUBIAS Attending Unavailable NONE, PCP Referring Unavailable MARCO MELVIN Primary Care Unavailable SAUMYA MANCIA Admitting Unavailable REKHA ROD Consulting Unavailable CHRISTIANO AU Attending Unavailable Sadiq GATES, Dr. Doty Emergency Provider Melvin PA, Marco Primary Care Provider Melvin PA, Marco Referring Provider Dr. Julianna Newman DO Attending Provider Melvin, Marco Primary Care Unavailable Julianna Newman Attending Unavailabl e Vande VelJulianna whitney Referring Unavailabl e Melvin, Marco Primary Care Unavailable Yola Schaffer Unavailable Julianna Newman Attending Unavailabl e Venessa Newby Attending Unavailable Venessa Newby Referring Unavailable Melvin, Marco Primary Care Unavailable Melvin, Marco Primary Care Unavailable Fern Marroquin Attending Unavailable Melvin, Marco Primary Care Unavailable Lilly Sampson Attending Unavailable Lilly Sampson Referring Unavailable Soren Babcock Attending Unavailable Melvin, Marco Primary Care Unavailable Melvin, Marco Primary Care Unavailable Fortune TOBACCO HANGER, Angelica Attending Unavailable Fortune TOBACCO HANGER, Angelica Referring Unavailable Venessa Newby Attending Unavailable Melvin, Marco Primary Care Unavailable Melvin, Marco Referring Unavailable Melvin, Marco Referring Unavailable Melvin, Marco Primary Care Unavailable Zeve Julianna Villareal Attending Unavailabl e Melvin, Marco Primary Care Unavailable Melvin, Marco Referring Unavailable Lilly Sampson Attending Unavailable Vande VeldeJulianna Referring Unavailabl e Melvin, Marco Primary Care Unavailable Julianna Newman Attending Unavailabl e MELVIN PA-C, MARCO J Primary Care Unavailable JOHN NAYLOR MD Attending Unavailable JOHN NAYLOR MD Attending Unavailable MELVIN PA-C, MARCO J Primary Care Unavailable JOHN NAYLOR MD Attending Unavailable MELVIN PA-C, MARCO J Primary Care Unavailable MELVIN PA-C, MARCO J Primary Care Unavailable JOHN NAYLOR MD Attending Unavailable MELVIN PA-C, MARCO J Primary Care Unavailable JOHN NAYLOR MD Attending Unavailable Allergies Allergy Classification Reported Allergen(s) Allergy Type Date of Onset Reaction(s) Facility (20 sources) Azithromycin; Translations: [AZITHROMYCIN] Drug Allergy 2 Rash, Other, Anaphylaxis, Blistering Rash, Hives, Other (See Comments), Shortness Of Breath, Swelling [facility] Work Phone: (20 sources) venlafaxine; Translations: [VENLAFAXINE] Drug Allergy 9 Other: See Comments, Other (See Comments) [facility] Work Phone: (20 sources) Zithromax [facility]IDES[email or web address] (6 sources) natural latex rubber Allergy to substance 4 Other [facility] Comment on above: Blisters with Bandai d use (5 sources) Latex; Translations: [LATEX] Propensity to adverse reactions 4 [facility] (1 source) Latex Propensity to adverse reactions 4 [facility] (1 source) Azithromycin Drug Allergy 5 [facility] (1 source) natural latex rubber Drug allergy (disorder) 5 [facility] (1 source) venlafaxine Drug Allergy 5 [facility] Medications Current Medications Medication Drug Class(es) Dates Sig (Normalized) Sig (Original) aspirin 81 mg oral tablet (13 sources) Platelet Aggregation Inhibitor, Nonsteroidal Anti-inflammatory Drug Start: 03-06-2025 take 1 tablet by mouth once daily Aspirin 81 mg tablet Active 81 mg PO daily March 06, 2025 12:00am Start: 09-08-2023 End: 10-03-2023 take 1 tablet by mouth once daily Aspirin 81 mg tablet,delayed release (DR/EC) Discontinued 81 mg PO DAILY September 08, 2023 1:00am October 03, 2023 11:21am cholecalciferol 0.05 mg oral capsule (9 sources) Vitamin D Start: 10-11-2024 Cholecalcifero l (Vitamin D3) (D3-2000) 50 mcg (2,000 unit) capsule Active 2000 U PO DAILY October 11, 2024 12:00am Start: 10-03-2023 End: 11-07-2023 take 1 capsule by mouth once daily Cholecalciferol (Vitamin D3) 50 mcg (2,000 unit) capsule Discontinued 50 ug PO DAILY October 03, 2023 12:00am November 07, 2023 8:43am 0.3 ml enoxaparin sodium 100 mg/ml prefilled syringe (17 sources) Low Molecular Weight Heparin Start: 03-06-2025 Enoxaparin (Lovenox) 30 mg/0.3 mL syringe Active 30 mg SC Q24H March 06, 2025 12:00am Start: 03-15-2024 End: 03-17-2024 inject 40 mg by subcutaneous injection once daily 40 mg, SubCUTAneous, Daily, First dose on Mon03/15/24 at 0100, , Indication of Use: Prophylaxis-DVT/PE Start: 09-08-2023 End: 11-21-2023 Enoxaparin (Lovenox) 30 mg/0 .3 mL syringe Discontinued 30 mg SC DAILY September 08, 2023 1:00am November 21, 2023 8:46am inject 30 mg by subc utaneous injection once daily Enoxaparin Sodium (LOVENOX SC) Inject 30 mg under the skin daily. Active ferrous sulfate 325 mg oral tablet (4 sources) Start: 03-14-2024 End: 04-14-2024 take 1 tablet by mouth in the morning ferrous sulfate 325 (65 Fe) MG tablet Take 1 tablet (325 mg) by mouth in the morning and 1 tablet (325 mg) in the evening. Take with meals. 60 tablet 03/15/2024 04/14/2024 Active ibuprofen 600 mg oral tablet (20 sources) Nonsteroidal Anti-inflammatory Drug Start: 03-14-2024 End: 04-07-2024 take 1 tablet by mouth every six hours ibuprofen 600 MG tablet Take 1 tablet (600 mg) by mouth in the morning and 1 tablet (600 mg) at noon and 1 tablet (600 mg) in the evening and 1 tablet (600 mg) before bedtime. Do all this for 23 days. 90 tablet 03/15/2024 04/07/2024 Active Start: 12-02-2022 End: 09-08-2023 take 1 tablet by mouth every eight hours as needed for pain Ibuprofen 800 mg tablet Discontinued 800 mg PO Q8H as needed for pain 20 0 December 02, 2022 12:00am September 08, 2023 2:16pm loratadine 10 mg oral tablet (20 sources) Start: 03-06-2025 take 1 tablet by mouth once daily Loratadine (Claritin) 10 mg tablet Active 10 mg PO daily March 06, 2025 12:00am Start: 11-21-2023 End: 06-19-2024 take 1 tablet by mouth once daily Loratadine (Claritin) 10 mg tablet Discontinued 10 mg PO DAILY November 21, 2023 12:00am June 19, 2024 10:44am Start: 09-08-2023 End: 11-07-2023 take 1 tablet by mouth once daily Loratadine (Claritin) 10 mg tablet Discontinued 10 mg PO DAILY September 08, 2023 1:00am November 07, 2023 8:43am Claritin 5 mg/5 mL oral solution ; (5 mg/5 mL) End: 03-17-2024 loratadine (Claritin) 5 MG/5 ML solution solution Take by mouth daily. 03/17/2024 Discontinued (Stop taking at discharge) 24 hr metFORMIN hydrochloride 750 mg extended release oral tablet (20 sources) Biguanide Start: 10-11-2024 take 1 tablet by mouth once daily Metformin 750 mg tablet extended release 24 hr Active 750 mg PO DAILY October 11, 2024 12:00am Start: 10-03-2023 End: 11-07-2023 take 2 tablets by mouth once daily Metformin 500 mg tablet Discontinued 1000 mg PO DAILY October 03, 2023 11:23am November 07, 2023 8:43am Start: 10-03-2023 take 1000 mg by mout h once daily Metformin Active 1000 MG PO DAILY October 03, 2023 11:23am Start: 09-08-2023 End: 10-03-2023 take 1 tablet by mouth once daily Metformin 500 mg tablet Discontinued 500 mg PO DAILY September 08, 2023 1:00am October 03, 2023 11:24am Multivit 19-Lejv-Zrgaki 1-Dh a (Pnv-Dha) 27 mg iron-1 mg -300 mg capsule (11 sources) Start: 01-14-2025 Multivit 47-Ir on-Folate 1-Dha (Pnv-Dha) 27 mg iron-1 mg -300 mg capsule Active 1 NMA PO DAILY 90 January 14, 2025 10:44am Start: 01-14-2025 End: 01-14-2025 Multivit 28-Iqwv-Olthrs 1-Dh a (Pnv-Dha) 27 mg iron-1 mg -300 mg capsule Discontinued 1 NMA PO DAILY 90 January 14, 2025 10:21am January 14, 2025 10:45am Start: 12-15-2023 End: 01-14-2025 Multivit 43-Qamk-Dxnssp 1-Dh a (Pnv-Dha) 27 mg iron-1 mg -300 mg capsule Discontinued 1 NMA PO DAILY 01 07December 15, 2023 12:41pm January 14, 2025 10:21am Start: 12-15-2023 Multivit 47-Ir on-Folate 1-Dha (Pnv-Dha) 27 mg iron-1 mg -300 mg capsule Active 1 NMA PO DAILY December 15, 2023 12:41pm Start: 10-03-2023 End: 12-15-2023 Multivit 36-Jvzj-Omhvxq 1-Dh a (Pnv-Dha) 27 mg iron-1 mg -300 mg capsule Discontinued NMA PO October 03, 2023 12:00am December 15, 2023 12:42pm Start: 10-03-2023 Multivit 47-Ir on-Folate 1-Dha (Pnv-Dha) 27 mg iron-1 mg -300 mg capsule Active CAP PO October 03, 2023 12:00am Multivit Qvi-Kfbq-Ob-Herb 186 (Hair, Skin And Nails Advanced) 3.3 mg iron-25 mcg Tablet (1 source) Start: 08-20-2021 Multivit Euq-Jlzs-Cj-Herb 186 (Hair, Skin And Nails Advanced) 3.3 mg iron-25 mcg Tablet Active 1 TABLET PO DAILY August 20, 2021 1:00am Naltrexone (20 sources) Opioid Antagonist Start: 03-06-2025 take 1 capsule by mouth once daily Naltrexone 1.5 mg capsule Active 3 mg PO .once a day March 06, 2025 12:00am Start: 10-03-2023 End: 06-19-2024 take 1 capsule by mouth once daily Naltrexone 1.5 mg capsule Discontinued 3 mg PO DAILY October 03, 2023 11:23am June 19, 2024 10:44am Start: 10-03-2023 take 3 mg by mouth once daily Naltrexone Active 3 MG PO DAILY October 03, 2023 11:23am Start: 09-08-2023 End: 10-03-2023 Naltrexone 1.5 mg capsule Discontinued 3 mg PO September 08, 2023 1:00am October 03, 2023 11:24am Start: 09-08-2023 End: 10-03-2023 Naltrexone Discontinued 3 MG PO September 08, 2023 1:00am October 03, 2023 11:24am Start: 09-08-2023 Naltrexone Act jessie 3 MG PO September 08, 2023 1:00am End: 03-17-2024 take 3 mg by mouth once daily naltrexone (Depade) 50 M G tablet Take 3 mg by mouth daily. 03/17/2024 Discontinued (Stop taking at discharge) omeprazole 20 mg delayed release oral capsule (20 sources) Proton Pump Inhibitor Start: 06-25-2024 omeprazole 20 mg capsule,delayed release ; 1 (one) Capsule daily for 90 days Quantity: 90 {Capsule} Refills: 1 Ordered: 25-Jun-2024 IMELDA Melvin Start: 25-Jun-2024 Start: 01-18-2024 omeprazole 20 mg capsule,delayed release ; 1 (one) Capsule daily for 90 days Quantity: 90 {Capsule} Refills: 1 Ordered: 18-Jan-2024 IMELDA Melvin Start: 18-Jan-2024 Start: 12-15-2023 omeprazole 20 mg capsule,delayed release ; 1 (one) Capsule daily for 30 days Quantity: 30 {Capsule} Refills: 0 Ordered: 15-Dec-2023 IMELDA Melvin Start: 15-Dec-2023 Start: 10-11-2023 omeprazole 20 mg capsule,delayed release ; 1 (one) Capsule daily for 90 days Quantity: 90 {Capsule} Refills: 0 Ordered: 11-Oct-2023 IMELDA Melvin Start: 11-Oct-2023 Start: 10-03-2023 take 1 tablet by isabel once daily Omeprazole 20 mg tablet,delayed release (DR/EC) Active 20 mg PO DAILY October 03, 2023 12:00am Start: 10-14-2022 End: 09-08-2023 take 1 capsule by mouth once daily Omeprazole 20 mg capsule,delayed release(DR/EC) Discontinued 20 mg PO DAILY October 14, 2022 12:00am September 08, 2023 2:16pm End: 03-17-2024 take 1 capsule by mouth once daily before breakfast omeprazole (PriLOSEC) [address] capsule Take 10 mg by mouth every morning (before breakfast). Do not crush or chew. 03/17/2024 Discontinued (Stop taking at discharge) predniSONE 10 mg oral tablet (20 sources) Start: 10-11-2024 take 1 tablet by mouth twice daily Prednisone 10 mg tablet Active 10 mg PO TWICE A DAY October 11, 2024 12:00am Start: 10-03-2023 End: 11-07-2023 take 1 tablet by mouth twice daily Prednisone 10 mg tablet Discontinued 10 mg PO TWICE A DAY October 03, 2023 12:00am November 07, 2023 8:43am Start: 12-01-2021 End: 02-07-2022 take 3 tablets by mouth once daily, then take 2 tablets by mouth once daily, then take 1 tablet by mouth once daily, then take 0.5 tablet by mouth once daily predniSONE 20 MG Oral Tablet ; 1 (one) Tablet as directed for 0 days Quantity: 20 {Tablet} Refills: 0 Ordered: 07-Feb-2022 HENRIQUE Fisher Start: 01-Dec-2021 End: 07-Feb-2022 Status: Inactive Comments: Take 3tabs qd for 3 days thenTake 2tabs qd for 3 days thenTake 1tab qd for 3 days thenTake 1/2tab qd for 4 days. take 1 tablet by isabel th once daily predniSONE (Deltasone) 10 MG tablet Take 10 mg by mouth daily. Active Comment on above: Take 3tabs qd for 3 days thenTake 2tabs qd for 3 days thenTake 1tab qd for 3 days thenTake 1/2tab qd for 4 days. MV-Min-Fe Fum-FA-DHA ( 1 PO) (4 sources) MV-Min- Fe Fum-FA-DHA ( 1 PO) Take by mouth. Active Tablet 28 mg iron-800 mcg (20 sources) Tablet 28 mg iron-800 mcg ; (28 mg iron- 800 mcg) HTG-YFDSNMMT-TCQX-FA PO (1 source) Start: 08-03-2023 UZR-PMEGRLXR-MCNK-FA PO daily 08/03/2023 Active Completed/Discontinued Medications Medication Drug Class(es) Dates Sig (Normalized) Sig (Original) acetaminophen 500 mg oral tablet (4 sources) Start: 10-12-2024 End: 10-13-2024 take 1 tablet by mouth every eight hours 1,000 mg, Oral, Every 8 hours, First dose on 10/12/24 at 0400, Maximum dose of acetaminophen is 4000 mg from all sources in 24 hours. Start: 03-14-2024 End: 03-17-2024 take 1 tablet by mouth every six hours as needed 650 mg, Oral, Every 6 hours PRN, other, Pain (1-10), Starting on Lali 03/14/24 at 1500, , Give in addition to any other pain medication ordered at same time for any pain indication. Maximum dose of acetaminophen is 4000mg from all sources in 24 hours. Alternate ibuprofen and acetaminophen every 3 hours. acetaminophen 325 mg / HYDROcodone bitartrate 5 mg oral tablet (20 sources) Opioid Agonist Start: 12-02-2022 End: 09-08-2023 Hydrocodone-Acetaminophen 5- 325 mg tablet Discontinued 1 {tbl} PO Q4H as needed for pain 10 3 0 December 02, 2022 September 08, 2023 2:16pm Status post laparoscopy Other specified postprocedural states Start: 12-02-2022 End: 09-08-2023 take 1 tablet by mouth every four hours Hydrocodone-Acetaminophen Discontinued 1 TABLET PO Q4H 10 3 December 02, 2022 September 08, 2023 2:16pm ALPRAZolam 0.5 mg oral tablet (20 sources) Benzodiazepine Start: 08-20-2021 End: 10-14-2022 take 1 tablet by mouth twice daily as needed for anxiety Alprazolam (Xanax) 0.5 mg Tablet Discontinued 0.5 mg PO TWICE A DAY as needed for Anxiety August 20, 2021 1:00am October 14, 2022 2:49pm Start: 04-26-2021 End: 04-26-2022 take 1 tablet by mouth three times daily as needed ALPRAZolam 0.5 MG Oral Tablet ; 1 (one) Tablet three times daily, as needed for 0 days Quantity: 30 {Tablet} Refills: 0 Ordered: 26-Apr-2022 BIA Reyes Start: 26-Apr-2021 End: 26-Apr-2022 Status: Inactive Comments: Medication taken as needed. Comment on above: Take 0.5 mg by mouth three times daily as needed. Medication taken as needed. amoxicillin 875 mg / clavulanate 125 mg oral tablet (20 sources) Penicillin-class Antibacterial Start: 2 End: 2 take 1 tablet by mouth twice daily Amoxicillin-Pot Clavulanate 875-125 MG Oral Tablet ; 1 (one) Tablet twice a day for 7 days Quantity: 14 {Tablet} Refills: 0 Ordered: 12-May-2022 IMELDA Dunn Start: 12-May-2022 End: 19-May-2022 Status: Inactive Start: 02-07-2022 End: 02-17-2022 take 1 tablet by mouth twice daily Amoxicillin-Pot Clavulanate 875-125 MG Oral Tablet ; 1 (one) Tablet two times daily for 10 days Quantity: 20 {Tablet} Refills: 0 Ordered: 07-Feb-2022 IMELDA Melvin Start: 07-Feb-2022 End: 17-Feb-2022 Status: Inactive benzonatate 100 mg oral capsule (20 sources) Non-narcotic Antitussive Start: 05-12-2022 End: 08-05-2022 take 1 capsule by mouth once daily as needed Tessalon Perles 100 MG Oral Capsule ; 1 (one) capsule three times daily as needed for cough for 0 days Quantity: 30 {Capsule} Refills: 1 Ordered: 12-May-2022 HENRIQUE Fisher Start: 12-May-2022 End: 05-Aug-2022 Status: Discontinued Comments: Medication taken as needed. This order discontinued per -. Start: 02-07-2022 End: 04-26-2022 take 1 capsule by mouth three times daily as needed Tessalon Perles 100 MG Oral Capsule ; 1 (one) Cap three times daily as needed for cough for 0 days Quantity: 30 {Capsule} Refills: 0 Ordered: 26-Apr-2022 BIA Reyes Start: 07-Feb-2022 End: 26-Apr-2022 Status: Inactive Comments: Medication taken as needed. swallow whole Comment on above: Medication taken as needed. swallow whole Medication taken as needed. This order discontinued per [facility]. betamethasone 3 mg/ml / betamethasone acetate 3 mg/ml injectable suspension (4 sources) Corticosteroid Start: 03-13-20 24 End: 03-14-20 24 inject 12 mg by intramuscular injection every twenty-four hours 12 mg, IntraMUSCular , Every 24 hours, First dose on 03/13/24 at 0915, For 2 doses Start: 03-07-2024 End: 03-07-2024 inject 12 mg by intramuscular injection once 12 mg, IntraMUSCular, Once, On Lali 03/07/24 at 1415, For 1 dose Blood-Glucose Meter misc (3 sources) Start: 02-26-2024 End: 03-06-2025 Blood-Glucose Meter misc Dis continued 0 .ROUTE .MEDSUPPLY 1 0 February 26, 2024 12:00am March 06, 2025 2:43pm As directed Start: 02-26-2024 Blood-Glucose Meter misc Active 0 .ROUTE .MEDSUPPLY 1 February 26, 2024 12:00am As directed 12 hr buPROPion hydrochloride 150 mg extended release oral tablet (20 sources) Aminoketone Start: 10-03-2022 End: 09-08-2023 take 1 tablet by mouth once daily Bupropion Hcl (Wellbutrin Sr) 150 mg tablet sustained-release 12 hr Discontinued 150 mg PO DAILY October 14, 2022 12:00am September 08, 2023 2:15pm cabergoline 0.5 mg oral tablet (5 sources) Ergot Derivative Start: 10-11-2024 End: 03-06-2025 take 1 tablet by mouth once daily Cabergoline 0.5 mg tablet Discontinued 0.5 mg PO DAILY October 11, 2024 12:00am March 06, 2025 2:43pm calcium chloride 0.0014 meq/ml / potassium chloride 0.004 meq/ml / sodium chloride 0.103 meq/ml / sodium lactate 0.028 meq/ml injectable solution (8 sources) Start: 10-12-2024 End: 10-13-2024 take 100 mL intravenously every hour 100 mL/hr, IntraVENous, Continuous, Starting on 10/12/24 at 0515 Start: 03-14-2024 End: 03-14-2024 take 125 mL intravenously every hour 125 mL/hr, IntraVENous, Continuous, Starting on Lali 03/14/24 at 0415 Start: 03-06-2024 End: 03-11-2024 take 125 mL intravenously every hour 125 mL/hr, IntraVENous, Continuous, Starting on 03/11/24 at 0045 cephalexin 500 mg oral capsule (7 sources) Cephalosporin Antibacterial Start: 10-11-2024 End: 03-06-2025 take 1 capsule by mouth twice daily Cephalexin 500 mg capsule Discontinued 500 mg PO TWICE A DAY October 11, 2024 12:00am March 06, 2025 2:43pm take 500 mg by mouth twice daily Cephalexin (KEFLEX PO) Take 500 mg by mouth 2 times daily. Active citric acid 66.8 mg/ml / sodium citrate 100 mg/ml oral solution (4 sources) Calculi Dissolution Agent, Anti-coagulant Start: 03-14-2024 End: 03-14-2024 take 30 mL by mouth once 30 mL, Oral, Once, On Lali 03/14/24 at 1045, For 1 dose, Pre-Delivery, Give immediately prior to transfer to surgery. Start: 03-14-2024 End: 03-14-2024 Starting on Lali 03/14/24 at 0 936, For 1 dose, Yara Chinchilla: cabinet override 1 ml diphenhydrAMINE hydrochloride 50 mg/ml cartridge (19 sources) Histamine-1 Receptor Antagonist Start: 03-14-2024 End: 03-17-2024 take 25 mg intravenously every six hours as needed Start: 11-21-2023 End: 06-19-2024 take 1 capsule by mouth at bedtime as needed Diphenhydramine Hcl (Benadryl) 25 mg capsule Discontinued 25 mg PO AT BEDTIME as needed for allergy symptoms November 21, 2023 12:00am June 19, 2024 10:44am Start: 09-08-2023 End: 11-07-2023 take 1 tablet by mouth at bedtime Diphenhydramine Hcl (Benadryl Allergy) 25 mg tablet Discontinued 25 mg PO AT BEDTIME September 08, 2023 1:00am November 07, 2023 8:43am End: 03-17-2024 diphenhydrAMINE HCl (BENADRY L ALLERGY PO) Take by mouth. 03/17/2024 Discontinued (Stop taking at discharge) docusate sodium 100 mg oral capsule (6 sources) Start: 10-12-2024 End: 10-13-2024 take 100 mg by mouth twice daily 100 mg, Oral, 2 times daily, First dose on 10/12/24 at 0900, Do not crush or break. Start: 03-14-2024 End: 04-14-2024 take 1 capsule by mouth twice daily as needed for constipation Docusate Sodium (DSS) 100 MG capsule Take 1 capsule (100 mg) by mouth 2 times daily as needed for constipation. 60 capsule 03/15/2024 04/14/2024 Active estradiol 2 mg oral tablet (12 sources) Estrogen Start: 09-08-2023 End: 11-07-2023 take 1 tablet by mouth twice daily Estradiol (Estrace) 2 mg tablet Discontinued 2 mg PO TWICE A DAY September 08, 2023 1:00am November 07, 2023 8:43am famotidine 20 mg oral tablet (16 sources) Histamine-2 Receptor Antagonist Start: 10-12-2024 End: 10-13-2024 take 20 mg by mouth twice daily 20 mg, Oral, 2 times daily, First dose on 10/12/24 at 1130 Start: 03-14-2024 End: 03-17-2024 take 1 tablet by mouth every twenty-four hours as needed for gastroesophageal reflux disease Start: 09-08-2023 End: 10-03-2023 take 1 tablet by mouth once daily Famotidine (Pepcid) 20 mg tablet Discontinued 20 mg PO DAILY September 08, 2023 1:00am October 03, 2023 11:22am Flash Glucose Scanning Reade r (Freestyle Lexi 2 [place]) misc (3 sources) Start: 02-28-2024 End: 03-06-2025 Flash Glucose Scanning Reade r (Freestyle Lexi 2 [place]) misc Discontinued 0 .Route 1 0 February 28, 2024 12:00am March 06, 2025 2:43pm As directed Start: 02-28-2024 Flash Glucose Scanning [place] (Freestyle Lexi 2 [place]) misc Active 0 .Route 1 February 28, 2024 12:00am As directed Flash Glucose Sensor (Freest yle Leix 2 Sensor) kit (3 sources) Start: 02-28-2024 End: 03-06-2025 Flash Glucose Sensor (Freest yle Lexi 2 Sensor) kit Discontinued 0 .Route 1 February 28, 2024 12:00am March 06, 2025 2:43pm As directed Start: 02-28-2024 Flash Glucose Sensor (Freestyle Lexi 2 Sensor) kit Active 0 .Route 1 February 28, 2024 12:00am As directed HYDROmorphone (Dilaudid) injection 0.25 mg (2 sources) Start: 03-14-2024 End: 03-17-2024 HYDROmorphone (Dilaudid) injection 0.25 mg insulin isophane, human 100 unt/ml injectable suspension (2 sources) Start: 03-13-2024 End: 03-14-2024 inject 6 [IU] by subcutaneous injection once daily 6 Units, SubCUTAneous, Nightly, First dose on Mon03/13/24 at 2100 insulin lispro 100 unt/ml injectable solution (10 sources) Insulin Analog Start: 03-14-2024 End: 03-15-2024 inject 4 [IU] by subcutaneous injection once 4 Units, SubCUTAneous, Once, On Mon03/15/24 at 0015, For 1 dose Start: 03-13-2024 End: 03-13-2024 inject 6 [IU] by subcutaneous injection once 6 Units, SubCUTAneous, Once, On Mon03/13/24 at 1915, For 1 dose Start: 03-06-2024 End: 03-06-2024 inject 5 [IU] by subcutaneous injection once 5 Units, SubCUTAneous, Once, On Mon03/06/24 at 2345, For 1 dose 1 ml ketorolac tromethamine 30 mg/ml cartridge (4 sources) Nonsteroidal Anti-inflammatory Drug, Cyclooxygenase Inhibitor Start: 03-14-2024 End: 03-15-2024 take 30 mg intravenously every six hours 30 mg, IntraVENous, Every 6 hours, First dose on Mon03/14/24 at 1900, For 4 doses, , This may be discontinued prior to 4 doses if patient pain is well controlled and able to take PO ibuprofen. Start: 03-14-2024 End: 03-14-2024 inject 60 mg by intramuscular injection once 60 mg, IntraMUSCular, Once, On Mon03/14/24 at 1300, For 1 dose, Post-Delivery, Postop in recovery room labetalol (Normodyne,Trandate) injection 5 mg (2 sources) Start: 03-15-2024 End: 03-17-2024 labetalol (Normodyne,Trandate) injection 5 mg lanolin 1000 mg/ml topical cream (2 sources) Start: 03-14-2024 End: 03-17-2024 Topical, Every 1 hour PRN, dry skin, nipple discomfort, Starting on Mon03/14/24 at 1500, , Apply to affected area letrozole 2.5 mg oral tablet (20 sources) Aromatase Inhibitor Start: 12-14-2022 End: 09-08-2023 Letrozole (Femara) 2.5 mg tablet Discontinued 2.5 mg PO DAILY 5 5 2 December 14, 2022 12:00am September 08, 2023 2:16pm begin between days 2 and 5 of mentrual cycle Start: 04-13-2020 take 2 tablets by [facility] once daily letrozole (FEMARA) 2.5 mg tablet Take 2 tablets by mouth once daily. 10 tablet 2 04/13/2020 Active Comment on above: Take 2 tablets by [facility] once daily. 500 ml magnesium sulfate 40 mg/ml injection (6 sources) Start: 03-14-2024 End: 03-14-2024 1,000 mg/hr (25 mL/hr), IntraVENous, Administer over 12 Hours, Continuous, Starting on Mon03/14/24 at 0545, For 12 hours, Pre-Infusion: Assess baseline vital signs (blood pressure, pulse, pulse oximetry, respirations, and temperature), breath sounds, strict intake and output, neurologic status (deep tendon reflexes, presence or absence of clonus, level of consciousness (LOC), presence of headaches/visual disturbances, presence/absence of epigastric pain, and if applicable Heart Rate/Contractions (continuous monitoring). Loading Dose/Infusion: - Stay with the patient during the loading dose and the first hour of the infusion to monitor for adverse reactions. - Continuously monitor the patient's pulse oximetry. - Monitor the patient's vital signs, deep tendon reflexes, level of consciousness every 15 minutes for the first hour after the start of the loading dose, then every 30 minutes for 1 hour, then every 4 hours thereafter unless more frequent assessments are warranted based on the patient's condition. Notify care provider immediately of absent deep tendon reflexes, a urine output of less than 30 mL/hour, respirations of less than 10 breaths/minute, or an oxygen saturation level of less than 95% Grams to milligrams conversion table: 1 gram = 1000 mg 2 grams = 2000 mg 4 grams = 4000 mg 6 grams = 6000 mg 20 grams = 20,000 mg, Indications: Neuroprotection Start: 03-14-2024 End: 03-14-2024 4,000 mg, IntraVENous, Admin ister over 20 Minutes, Once, On Lali 03/14/24 at 0530, For 1 dose, Pre-Infusion: Assess baseline vital signs (blood pressure, pulse, pulse oximetry, respirations, and temperature), breath sounds, strict intake and output, neurologic status (deep tendon reflexes, presence or absence of clonus, level of consciousness (LOC), presence of headaches/visual disturbances, presence/absence of epigastric pain, and if applicable Heart Rate/Contractions (continuous monitoring). Loading Dose/Infusion: - Stay with the patient during the loading dose and the first hour of the infusion to monitor for adverse reactions. - Continuously monitor the patient's pulse oximetry. - Monitor the patient's vital signs, deep tendon reflexes, level of consciousness every 15 minutes for the first hour after the start of the loading dose, then every 30 minutes for 1 hour, then every 4 hours thereafter unless more frequent assessments are warranted based on the patient's condition. Notify care provider immediately of absent deep tendon reflexes, a urine output of less than 30 mL/hour, respirations of less than 10 breaths/minute, or an oxygen saturation level of less than 95% Grams to milligrams conversion table: 1 gram = 1000 mg 2 grams = 2000 mg 4 grams = 4000 mg 6 grams = 6000 mg 20 grams = 20,000 mg Start: 03-06-2024 End: 03-07-2024 1,000 mg/hr (25 mL/hr), Intr aVENous, Continuous, Starting on Mon03/06/24 at 1745, For 48 hours, Pre-Delivery, Pre-Infusion: Assess baseline vital signs (blood pressure, pulse, pulse oximetry, respirations, and temperature), breath sounds, strict intake and output, neurologic status (deep tendon reflexes, presence or absence of clonus, level of consciousness (LOC), presence of headaches/visual disturbances, presence/absence of epigastric pain, and if applicable Heart Rate/Contractions (continuous monitoring). Loading Dose/Infusion: - Stay with the patient during the loading dose and the first hour of the infusion to monitor for adverse reactions. - Continuously monitor the patient's pulse oximetry. - Monitor the patient's vital signs, deep tendon reflexes, level of consciousness every 15 minutes for the first hour after the start of the loading dose, then every 30 minutes for 1 hour, then every 4 hours thereafter unless more frequent assessments are warranted based on the patient's condition. Notify care provider immediately of absent deep tendon reflexes, a urine output of less than 30 mL/hour, respirations of less than 10 breaths/minute, or an oxygen saturation level of less than 95% Grams to milligrams conversion table: 1 gram = 1000 mg 2 grams = 2000 mg 4 grams = 4000 mg 6 grams = 6000 mg 20 grams = 20,000 mg medroxyPROGESTERone acetate 5 mg oral tablet (19 sources) Progestin Start: 12-14-2022 End: 09-08-2023 Medroxyprogesterone (Provera) 5 mg tablet Discontinued 5 mg PO DAILY 7 3 December 14, 2022 12:00am September 08, 2023 2:16pm take 7 days prior to anticipated menses 1 ml naloxone hydrochloride 0.4 mg/ml injection (4 sources) Opioid Antagonist Start: 10-12-2024 End: 10-13-2024 0.4 mg, IntraVENous, Every 5 min PRN, opioid reversal, respiratory depression, Starting on 10/12/24 at 1122, +++ For RR Start: 03-14-2024 End: 03-17-2024 0.4 mg, IntraVENous, Every 5 min PRN, opioid reversal, respiratory depression, Starting on Lali 03/14/24 at 1502, +++ For RR nitrofurantoin, macrocrystals 25 mg / nitrofurantoin, monohydrate 75 mg oral capsule (5 sources) Nitrofuran Antibacterial Start: 03-06-2024 End: 03-13-2024 take 1 capsule by mouth twice daily at mealtime Nitrofurantoin Monohyd/M-Cryst (Macrobid) 100 mg capsule Discontinued 100 mg PO TWICE A DAY 14 7 0 March 06, 2024 12:00am March 12, 2024 12:00am March 13, 2024 12:04am must administer with a meal/food ondansetron 4 mg disintegrating oral tablet (3 sources) Serotonin-3 Receptor Antagonist Start: 02-02-2024 End: 06-19-2024 take 1 tablet by mouth every six hours as needed for nausea and vomiting Ondansetron 4 mg tablet,disintegrati ng Discontinued 4 mg PO EVERY 6 HOURS as needed for nausea and vomiting 14 0 February 02, 2024 12:00am June 19, 2024 10:44am ondansetron ODT (Zofran-ODT) disintegrating tablet 4 mg (4 sources) Start: 10-12-2024 End: 10-13-2024 take 1 tablet by mouth every eight hours as needed for nausea and vomiting ondansetron ODT (Zofran-ODT) disintegrating tablet 4 mg Start: 03-14-2024 End: 03-17-2024 take 1 tablet by mouth every eight hours as needed for nausea and vomiting ondansetron ODT (Zofran-ODT) disintegrating tablet 4 mg oxyCODONE hydrochloride 5 mg oral tablet (6 sources) Opioid Agonist Start: 10-12-2024 End: 10-13-2024 take 1 tablet by mouth every six hours as needed for pain and pain 5 mg, Oral, Every 6 hours PRN, moderate pain (4-6), severe pain (7-10), Starting on 10/12/24 at 1121 Start: 03-15-2024 End: 03-20-2024 take 1 tablet by mouth every six hours as needed for pain oxyCODONE (Roxicodone) 5 MG immediate release tablet Indications: S/P Take 1 tablet (5 mg) by mouth every 6 hours as needed for moderate pain (4-6) for up to 5 days. 20 tablet 03/15/2024 03/20/2024 Active Start: 03-14-2024 End: 03-17-2024 take 1 tablet by mouth every four hours as needed for pain oxyCODONE (Roxicodone) immediate release tablet 5 mg oxytocin (Pitocin) 30 units in 500 mL infusion (2 sources) Start: 03-14-2024 End: 03-15-2024 125 [place]-units/min (125 mL/hr), IntraVENous, Continuous PRN, Bleeding, Starting on Lali 03/14/24 at 1037, Pre-Delivery, Post- use ONLY after delivery of baby/ excessive bleeding/ uterine atony. Given after delivery of placenta AND the initial 30 unit bolus. Bag 2 of 2. 125 cc/hr (125 mu/min) for an additional infusion of 500cc (30 units) oxytocin (Pitocin) 30 units infusion - Pyxis ADS Override Pull (2 sources) Start: 03-14-2024 End: 03-14-2024 Starting on Lali 03/14/24 at 0936, For 1 dose, Yara Chinchilla: cabinet override pantoprazole 40 mg delayed release oral tablet (2 sources) Proton Pump Inhibitor Start: 03-10-2024 End: 03-15-2024 take 40 mg by mouth once daily before breakfast 40 mg, Oral, Daily before breakfast, First dose on 03/10/24 at 0600, Do not crush, chew, or split. pantoprazole (ProtoNix) 40 mg in sodium chloride (PF) 0.9 % 10 mL injection (2 sources) Start: 03-08-2024 End: 03-08-2024 take 1 dose by mouth once 40 mg, IntraVENous, Administer over 2 Minutes, Once, On 03/08/24 at 2015, For 1 dose, Give only if unable to tolerate po. phenazopyridine hydrochloride 200 mg delayed release oral tablet (7 sources) Start: 10-12-2024 End: 10-13-2024 take 200 mg by mouth twice daily 200 mg, Oral, 2 times daily, First dose on 10/12/24 at 0900 Start: 10-11-2024 End: 03-06-2025 take 1 tablet by mouth twice daily Phenazopyridine (Pyridium) 200 mg tablet Discontinued 200 mg PO TWICE A DAY October 11, 2024 12:00am March 06, 2025 2:43pm Pnv No.63-Iron,Womibmzm-Vj-F mercedes (16 sources) Start: 12-14-2022 End: 09-08-2023 take 1 capsule by mouth once daily Pnv No.63-Iron,Gbzehvjf-Ho-Vzb Discontinued 1 CAP PO DAILY December 14, 2022 12:00am September 08, 2023 2:16pm Start: 12-14-2022 take 1 capsule by mo ut once daily Pnv No.63-Iron,Cdacosrp-Tm-Ljz Active 1 CAP PO DAILY December 13, 2022 11:00pm Start: 12-14-2022 take 1 capsule by mo uth once daily Pnv No.63-Iron,Aednxfnp-Rp-Etm Active 1 CAP PO DAILY December 14, 2022 12:00am Pnv No.63-Iron,Nwcnwupg-Jo-M mercedes 27 mg iron- 800 mcg-200 mg capsule (3 sources) Start: 12-14-2022 End: 09-08-2023 Pnv No.63-Iron,Tbavytyh-Vu-G mercedes 27 mg iron- 800 mcg-200 mg capsule Discontinued 1 NMA PO DAILY December 14, 2022 12:00am September 08, 2023 2:16pm Start: 12-14-2022 End: 09-08-2023 Pnv No.63-Iron,Yntvmbja-Us-I mercedes 27 mg iron- 800 mcg-200 mg capsule Discontinued 1 NMA PO DAILY December 14, 2022 12:00am September 08, 2023 2:16pm PNV no.95/ferrous fum/folic ac ( ORAL) (1 source) PNV no.95/ferrou s fum/folic ac ( ORAL) Take by mouth. 0 Active Comment on above: Take by mouth. Vas763-Rvui-Sx-O7-Wmh-Mai-D magy [Pnv No.151-Iron 27 Mg-Folic 800 Mcg-Omega3 260 Ru-Sbv-Kcb-Fish Capsule] (Pnv No.151-Iron 27 Mg-Folic 800 Mcg-Omega3 260 ) 27 mg iron-800 mcg-260 mg capsule (3 sources) Start: 10-11-2024 End: 01-14-2025 Uqc820-Knfz-Pf-W1-Ohp-Xox-A magy [Pnv No.151-Iron 27 Mg-Folic 800 Mcg-Omega3 260 Fy-Wme-Gds-Fish Capsule] (Pnv No.151-Iron 27 Mg-Folic 800 Mcg-Omega3 260 ) 27 mg iron-800 mcg-260 mg capsule Discontinued 1 NMA PO DAILY October 11, 2024 12:00am January 14, 2025 10:21am Start: 10-11-2024 Cyd307-Mmru-Ep -C7-Ucw-Hbo-Fish [Pnv No.151-Iron 27 Mg-Folic 800 Mcg-Omega3 260 Tg-Xei-Ukw-Fish Capsule] (Pnv No.151-Iron 27 Mg-Folic 800 Mcg-Omega3 260 ) 27 mg iron-800 mcg-260 mg capsule Active 1 NMA PO DAILY October 11, 2024 12:00am polyethylene glycol 3350 19783 mg powder for oral solution (2 sources) Osmotic Laxative Start: 10-12-2024 End: 10-13-2024 take 17 g by mouth every twenty-four hours as needed for constipation polyethylene glycol 3350 942111 mg / potassium chloride 2970 mg / sodium bicarbonate 6740 mg / sodium chloride 5860 mg / sodium sulfate 94300 mg powder for oral solution (2 sources) Osmotic Laxative Start: 10-14-2024 End: 03-06-2025 Peg 3350-Electrolytes (Golytely) 236-22.74-6.74 -5.86 gram recon soln Discontinued 240 mL PO EVERY 10 MINUTES NEEDED 4000 0 October 14, 2024 12:00am March 06, 2025 2:43pm until fecal effluent is clear Vit,Kalpesh 92-Hvda-Nkkif (Prenatabs Fa) 29-1 mg Tablet (1 source) Start: 08-20-2021 End: 10-14-2022 Vit,Kalpesh 91-Yakl-Oaxfj (Prenatabs Fa) 29-1 mg Tablet Discontinued 1 {tbl} PO DAILY August 20, 2021 1:00am October 14, 2022 2:49pm Vit,Iewt38-Octr-Vnd ic (Prenatabs Fa) 29-1 mg Tablet (20 sources) Start: 08-20-2021 End: 10-14-2022 Vit,Tcfy15-Xien-Jn lic (Prenatabs Fa) 29-1 mg Tablet Discontinued 1 {tbl} PO DAILY August 20, 2021 1:00am October 14, 2022 2:49pm Start: 08-20-2021 End: 10-14-2022 take 1 tablet by mouth once daily Vit,Vaok11-Etys-Bmzjp (Prenatab s Fa) 29-1 mg Tablet Discontinued 1 TABLET PO DAILY August 20, 2021 12:00am October 14, 2022 1:49pm Start: 08-20-2021 End: 10-14-2022 take 1 tablet by mouth once daily Vit,Brnc89-Pdts-Baqap (Prenatab s Fa) 29-1 mg Tablet Discontinued 1 TABLET PO DAILY August 20, 2021 1:00am October 14, 2022 2:49pm Start: 08-20-2021 take 1 tablet by isabel th once daily Vit,Elqx40-Lenv-Rsksz (Prenatab s Fa) 29-1 mg Tablet Active 1 TABLET PO DAILY August 20, 2021 1:00am vitamin tablet (4 sources) Start: 03-14-2024 End: 03-17-2024 Start: 03-06-2024 End: 03-14-2024 take 1 tablet by mouth once daily 1 tablet, Oral, Daily, First dose on Mon03/06/24 at 1730, Pre-Delivery, With First Dose As Scheduled. progesterone 200 mg oral capsule (20 sources) Progesterone Start: 09-08-2023 End: 11-07-2023 take 1 capsule by mouth twice daily Progesterone Micronized (Prometrium) 200 mg capsule Discontinued 200 mg PO TWICE A DAY September 08, 2023 1:00am November 07, 2023 8:43am Start: 09-08-2023 End: 11-07-2023 inject 50 mg by intramuscular injection once daily Progesterone 50 mg/mL oil Discontinued 50 mg IM DAILY September 08, 2023 1:00am November 07, 2023 8:43am Start: 09-08-2023 inject 50 mg by intr amuscular injection once daily Progesterone Active 50 MG IM DAILY September 08, 2023 1:00am sertraline 25 mg oral tablet (20 sources) Serotonin Reuptake Inhibitor Start: 06-19-2024 End: 10-11-2024 take 1 tablet by mouth once daily Sertraline 25 mg tablet Discontinued 25 mg PO daily June 19, 2024 1:00am October 11, 2024 9:42pm Start: 01-31-2020 End: 04-26-2021 take 1 tablet by mouth once daily Sertraline HCl 25 MG Oral Tablet ; 1 (one) Tablet daily for 30 days Quantity: 30 {Tablet} Refills: 2 Ordered: 26-Apr-2021 BIA Mar Start: 31-Jan-2020 End: 26-Apr-2021 Status: Inactive simethicone 80 mg chewable tablet (2 sources) Start: 03-14-2024 End: 03-17-2024 take 1 tablet by mouth every six hours as needed 5 ml sodium chloride 9 mg/ml injection (20 sources) Start: 10-12-2024 End: 10-13-2024 take 5-40 mL intravenously every twelve hours 5-40 mL, IntraVENous, Every 12 hours, First dose on Mon10/12/24 at 0400, For Line Patency: Peripheral IV = 5 mL; Midline or Central Line = 10 mL/lumen. If following IV push medication, administer flush at same rate as the IV push. Flush volume is determined by type of infusion therapy being given. For non-viscous solutions use: Peripheral IV = 5 mL Midline or Central Line = 10 mL/lumen For viscous solutions (i.e. blood components, parenteral nutrition, contrast media, or after obtaining blood sample) use: Peripheral IV = 10 mL Midline or Central Line = 20 mL/lumen Start: 10-12-2024 End: 10-13-2024 Start: 10-12-2024 End: 10-13-2024 Start: 03-15-2024 End: 03-17-2024 10 mL, IntraVENous, Every 12 hours scheduled (2 times per day), First dose on Mon03/15/24 at 0900, Recovery (only) Start: 03-15-2024 End: 03-17-2024 take 100 mL intravenously every hour as needed, then take 20 mL intravenously every hour as needed 5-250 mL/hr, IntraVENous, PRN, if patient receiving piggyback infusions and maintenance fluids are not ordered OR KVO fluids to protect IV site / prevent frequent line interruptions/ long duration, Starting on Mon03/15/24 at 0813, Recovery (only), For piggyback infusion, administer at same rate as piggyback for a total of 25 mL. Enter 25 mL into dose field and piggyback rate into rate field of order. If piggyback is infusing at a rate less than 100 mL/hr, enter 25 mL into dose field and 100 mL/hr into rate field of order. For KVO fluids, enter rate of 20 mL/hr or less into rate field of order. Start: 03-14-2024 End: 03-17-2024 Start: 03-14-2024 End: 03-17-2024 Start: 03-12-2024 End: 03-15-2024 take 5-40 mL intravenously every twelve hours 5-40 mL, IntraVENous, Every 12 hours, First dose on Mon03/12/24 at 1945, For Line Patency: Peripheral IV = 5 mL; Midline or Central Line = 10 mL/lumen. If following IV push medication, administer flush at same rate as the IV push. Flush volume is determined by type of infusion therapy being given. For non-viscous solutions use: Peripheral IV = 5 mL Midline or Central Line = 10 mL/lumen For viscous solutions (i.e. blood components, parenteral nutrition, contrast media, or after obtaining blood sample) use: Peripheral IV = 10 mL Midline or Central Line = 20 mL/lumen Start: 03-12-2024 End: 03-17-2024 take 10 mL intravenously once as needed 10 mL, IntraVENous, PRN, line care, Starting on Mon03/15/24 at 0813, Recovery (only), After every IV line use sulfamethoxazole 800 mg / trimethoprim 160 mg oral tablet (20 sources) Dihydrofolate Reductase Inhibitor Antibacterial, Sulfonamide Antimicrobial Start: 09-27-2022 End: 10-04-2022 take 1 tablet by mouth twice daily Sulfamethoxazole-Trimethoprim 800-160 MG Oral Tablet ; 1 (one) Tablet two times daily for 7 days Quantity: 14 {Tablet} Refills: 0 Ordered: 27-Sep-2022 IMELDA Dunn Start: 27-Sep-2022 End: 04-Oct-2022 Status: Inactive terbinafine hydrochloride 10 mg/ml topical cream (20 sources) Allylamine Antifungal Start: 11-09-2022 End: 09-08-2023 Terbinafine Hcl 1 % cream Discontinued 1 NMA TOPICAL DAILY November 09, 2022 12:00am September 08, 2023 2:16pm Problems Active Problems Problem Classification Problem Date Documented Da te Episodic/Chronic Allergic reactions (20 sources) Photodermatitis; Translations: [Other skin changes due to chronic exposure to nonionizing radiation] 08-05-2022 Episodic Anxiety disorders (20 sources) Anxiety; Translations: [Anxiety disorder, unspecified] Onset: 9 11-14-2018 Chronic Comment on above: stable Benign neoplasm of uterus (3 sources) Uterine leiomyoma; Translations: [Leiomyoma of uterus, unspecified] 07-17-2024 Episodic Chronic obstructive pulmonary disease and bronchiectasis (20 sources) Bronchitis; Translations: [Bronchitis, not specified as acute or chronic] 08-05-2022 Episodic Complications of surgical procedures or medical care (15 sources) Ovarian hyperstimulation syndrome; 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] Onset: 10-11-2024 Episodic Comment on above: patient at [facility] for paracentesis- 10/11/24-10/13/24 Diabetes or abnormal glucose tolerance complicating ; childbirth; or the puerperium (5 sources) History of gestational diabetes mellitus; Translations: [Personal history of gestational diabetes] 04-10-2024 Episodic Diseases of white blood cells (3 sources) Leukocytosis; Translations: [Elevated white blood cell count, unspecified] 10-11-2024 Chronic Early or threatened labor (3 sources) False labor before 37 completed weeks of gestation; Translations: [False labor before 37 completed weeks of gestation, unspecified trimester] 03-19-2024 Episodic Esophageal disorders (20 sources) Gastroesophageal reflux disease; Translations: [Gastro-esophageal reflux disease without esophagitis] 02-15-2023 Chronic Genitourinary symptoms and ill-defined conditions (6 sources) Blood in urine; Translations: [Hematuria, unspecified] 03-01-2024 Episodic Hemorrhage during ; abruptio placenta; placenta previa (14 sources) Threatened miscarriage in first trimester; Translations: [Threatened ] Onset: 09-19-2023 Episodic Inflammation; infection of eye (except that caused by tuberculosis or sexually transmitteddisease) (20 sources) Conjunctivitis of right eye; Translations: [Unspecified conjunctivitis] 08-05-2022 Episodic Menstrual disorders (5 sources) Amenorrhea; Translations: [Amenorrhea, unspecified] 06-19-2024 Chronic Noninfectious gastroenteritis (20 sources) Chronic diarrhea of unknown origin ; Translations: [Noninfective gastroenteritis and colitis, unspecified] 08-05-2022 Episodic Other complications of (6 sources) High risk ; Translations: [Supervision of high risk , unspecified, unspecified trimester] 10-03-2023 Episodic Comment on above: [id number], GERALD 4per [facility], Rene Other complications of (3 sources) Supervision of high risk , unspecified, unspecified trimester; Translations: [Supervision of unspecified high-risk ] 10-12-2023 Episodic Other complications of (3 sources) Reduced movement; Translations: [Decreased movements, unspecified trimester, not applicable or unspecified] 03-19-2024 Episodic Comment on above: over 30 movements wh ile on monitor Other connective tissue disease (5 sources) Pelvic floor dysfunction; Translations: [Other specified disorders of muscle] 06-19-2024 Episodic Other endocrine disorders (7 sources) Polycystic ovary syndrome; Translations: [Polycystic ovarian syndrome] 10-03-2023 Chronic Other endocrine disorders (2 sources) Polycystic ovarian syndrome; Translations: [Polycystic ovaries] 10-12-2023 Chronic Other female genital disorders (20 sources) Abnormal vaginal bleeding; Translations: [Abnormal uterine and vaginal bleeding, unspecified] 04-16-2022 Chronic Other female genital disorders (20 sources) Abnormal uterine bleeding; Translations: [Abnormal uterine and vaginal bleeding, unspecified] 10-14-2022 Chronic Other female genital disorders (14 sources) Abnormal uterine and vaginal bleeding, unspecified; Translations: [Unspecified disorders of menstruation and other abnormal bleeding from female genital tract] 11-09-2022 Chronic Other female genital disorders (5 sources) Vaginal discharge; Translations: [Other specified noninflammatory disorders of vagina] 06-19-2024 Episodic Other gastrointestinal disorders (20 sources) Diarrhea; Translations: [Diarrhea, unspecified] 02-07-2020 Episodic Other gastrointestinal disorders (2 sources) Constipation; Translations: [Constipation, unspecified] 10-14-2024 Episodic Other and delivery including normal (19 sources) Intrauterine ; Translations: [Encounter for supervision of normal , unspecified, unspecified trimester] 09-19-2023 Episodic Comment on above: NIPT low risk, viktor er testing completed prior to IVF; declines AFP Other screening for suspected conditions (not mental disorders or infectious disease) (20 sources) Decreased thyroid stimulating hormone level; Translations: [Other specified abnormal findings of blood chemistry] 02-15-2023 Episodic Comment on above: 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, 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/FOB negative Other upper respiratory infections (20 sources) Sore throat symptom; Translations: [Acute pharyngitis, unspecified] 05-13-2021 Episodic Polyhydramnios and other problems of amniotic cavity (13 sources) Anhydramnios; Translations: [Oligohydramnios, third trimester, not applicable or unspecified] Onset: 03-15-2024 Episodic Residual codes; unclassified (20 sources) History of laparoscopy; Translations: [Other specified postprocedural states] 12-02-2022 Episodic Residual codes; unclassified (7 sources) Other specified postprocedural states; Translations: [Other postprocedural status] 12-14-2022 Episodic Residual codes; unclassified (6 sources) Conceived by in vitro fertilization; Translations: [Other specified health status] 10-03-2023 Episodic Comment on above: echo 22-24 wk/ordere jose e has on naltrexone this - stop 37-38 weeksecho at 22-24 weeksmonthly growth scansnsts starting 36 weeks Residual codes; unclassified (3 sources) Infertile 11-21-2023 Episodic Comment on above: [facility], good experience Skin and subcutaneous tissue infections (20 sources) Cellulitis of lower limb; Translations: [Cellulitis of unspecified part of limb] 02-15-2023 Episodic Substance-related disorders (20 sources) Nicotine dependence; Translations: [Nicotine dependence, unspecified, uncomplicated] 02-15-2023 Chronic Unclassified (20 sources) Infertile; Translations: [Infertility] 10-14-2022 Unclassified (20 sources) Abortions, spontaneous 02-15-2023 Comment on above: 1. Unclassified (20 sources) Follow up for multiple chronic conditions - The patient is here for follow-up of anxiety and GERD. The patient always takes the prescribed medications. No side effects noted (Needs refill of omeprazole today). The patient has low activity level and no regular exercise program. The patient's dietary compliance is good with close adherance to recommendations. The patient states that there is no recent angina or dyspnea, there are no vision changes or weakness, weight has increased, in general mood has improved and headaches are rarely noted. Note for Multiple chronic conditions follow-up: Patient is currently and due in mid-May.She reports that the omeprazole continues to work well for heartburn. 01-18-2024 Unclassified (2 sources) R10.2 - Pelvic and perineal pain Past or Other Problems Problem Classification Problem Date Documented Date Episodic/Chronic Abdominal pain (11 sources) Pain in pelvis; Translations: [Abdominal pain] Onset: 10-18-2024 Episodic Contraceptive and procreative management (1 source) Encounter for fertility testing; Translations: [Encounter for fertility testing] Onset: 08-30-2024 Episodic Other and unspecified benign neoplasm (1 source) Lipoma (clinical); Translations: [Benign lipomatous neoplasm, unspecified] Onset: 12-09-2013 12-09-2013 Episodic Other complications of (1 source) Supervision of high risk , unspecified, first trimester; Translations: [Supervision of high risk , unspecified, first trimester] Onset: 03-06-2024 Episodic Other female genital disorders (1 source) Other specified noninflammatory disorders of vagina; Translations: [Other specified noninflammatory disorders of vagina] Onset: 07-25-2024 Episodic Residual codes; unclassified (4 sources) Other specified health status; Translations: [Other specified conditions influencing health status] Onset: 03-06-2024 10-12-2023 Episodic Residual codes; unclassified (2 sources) History of uterine scar from previous surgery; Translations: [History of uterine scar from previous surgery] Onset: 03-06-2024 Episodic Screening and history of mental health and substance abuse codes (1 source) H/O: depression; Translations: [Personal history of other mental and behavioral disorders] Onset: 11-14-2018 11-14-2018 Episodic Unclassified (20 sources) Well adult female - The patient [...] hours per night. Note for Well adult female: Patient would like a refill of her omeprazole today. It continues to work well for her GERD. 02-15-2023 Unclassified (20 sources) Skin ulcer/open sore - Symptoms include drainage (Occasional drainage), an open sore, pain and swelling. Symptoms are located on the rt paez. Onset was gradual 1 year(s) ago. The patient describes this as mild and unchanged. Past treatment has included topical antibiotics (Tried OTC creams and steroid creams w/ no improvement.). Note for Skin ulceration: Type 1 DM runs in family 09-27-2022 Unclassified (20 sources) Eye symptoms - The onset of [...] nose or sore throat. Note for Eye symptoms: She usually wears daily contacts. Patient has been wearing her glasses since yesterday. 08-05-2022 Unclassified (20 sources) Cold Symptoms - Symptoms include sore [...] recurrent ear infections. Note for Upper respiratory infection: chest and back hurt from coughing and gets winded easily - wakes up at night from coughing ALONSO 04/26/22 URI w [facility] 05-12-2022 Unclassified (20 sources) Cold Symptoms - Symptoms include nasal [...] an individual with similar symptoms (works at [employer]), but has not been exposed to an individual with strep or secondhand smoke. Medical history includes tonsillectomy, but patient denies history of seasonal allergies, recurrent sinusitis, recurrent strep pharyngitis, asthma or recurrent ear infections. Note for Upper respiratory infection: pt did an at home covid test yesterday -- negativeshe did have tessalon perles on hand from [facility] and starting using them today - she [...] she feels stressed or anxious. 04-26-2022 Unclassified (20 sources) Cold Symptoms - Symptoms include nasal [...] of seasonal allergies or asthma. 02-07-2022 Unclassified (20 sources) swollen forehead - pt did get [...] injury Denies any associated pain 12-01-2021 Unclassified (20 sources) Follow up laboratory test results - Lab results returned on : (07/28/2021) include other (Abnormal TSH). Current symptoms include other (fatigue, hair loss). Note for Laboratory test results follow-up: pts TSH was 0.564 - [facility] since it keeps dropping - last level a year before was around 1pt is having infertility issues- wonders if its not her thyroid? pt is unsureOther labs completed by gynecology have been normal and they have not been able to find a cause for her infertility at this time 08-03-2021 Unclassified (20 sources) Sore throat - The onset of [...] allergies or recurrent sinusitis. Note for Sore throat: Patient denies any runny nose or nasal congestion. 05-13-2021 Unclassified (20 sources) Anxiety - The onset of the [...] change, suicidal thoughts or vomiting. Note for Anxiety: Patient has been to counseling in the past and taken Sertraline. Experienced some shaking and tremors when taking Sertraline in December 2020. Has not been taking medication since then. 04-26-2021 Unclassified (20 sources) Abdominal pain - The onset of [...] with anorexia and diarrhea. Note for Abdominal pain: Patient reports that she has felt a [...] Results Test Name Value Interpretation Reference Range Facility E2on 03-12-2025 Estradiol Level 983.94 pg/mL Normal [facility] Comment on above: Result Comment: Adult Female E2 Reference Ranges: Follicular phase 19.5 - 144.2 pg/mL Midcycle 63.9 - 356.7 pg/mL Luteal phase 55.8 - 214.2 pg/mL Post menopausal 0 - 33.2 pg/mL Performed By: #### E 2, LH, PROG #### [place] [address] LHon 03-12-2025 LH 5.8 mIU/mL Normal [facility] Comment on above: Result Comment: No te - New Reference Range in effect 20Adult Female LH Reference Ranges: Follicular phase 1.9 - 12.5 mIU/mL Midcycle phase 8.7 - 76.3 mIU/mL Luteal phase 0.5 - 16.9 mIU/mL Post menopausal 5.0 - 55.2 mIU/mL Performed By: #### E 2, LH, PROG #### [place] [address] PROGon 03-12-2025 Progesterone Level <0.2 Normal [facility] Comment on above: Result Comment: Adul t Female Progesterone Reference Ranges: Follicular phase <0.21 - 1.40 ng/mL Luteal phase 3.34 - 25.56 ng/mL Mid-Luteal phase 4.44 - 28.03 ng/mL Postmenopausal <0.21 - 0.73 ng/ml Female: First trimester 11.22 - 90.00 ng/ml Second trimester 25.55 - 89.40 ng/ml Third trimester 48.40 - 422.50 ng/ml Performed By: #### E 2, LH, PROG #### [place] [address] E2on 03-10-2025 Estradiol Level 73.69 pg/mL Normal [facility] Comment on above: Result Comment: Adult Female E2 Reference Ranges: Follicular phase 19.5 - 144.2 pg/mL Midcycle 63.9 - 356.7 pg/mL Luteal phase 55.8 - 214.2 pg/mL Post menopausal 0 - 33.2 pg/mL Performed By: #### L H, PROG, E2 #### [place] [address] LHon 03-10-2025 LH 8.0 mIU/mL Normal [facility] Comment on above: Result Comment: No te - New Reference Range in effect 20Adult Female LH Reference Ranges: Follicular phase 1.9 - 12.5 mIU/mL Midcycle phase 8.7 - 76.3 mIU/mL Luteal phase 0.5 - 16.9 mIU/mL Post menopausal 5.0 - 55.2 mIU/mL Performed By: #### L H, PROG, E2 #### [place] [address] PROGon 03-10-2025 Progesterone Level 0.2 ng/mL Normal [facility] Comment on above: Result Comment: Adul t Female Progesterone Reference Ranges: Follicular phase <0.21 - 1.40 ng/mL Luteal phase 3.34 - 25.56 ng/mL Mid-Luteal phase 4.44 - 28.03 ng/mL Postmenopausal <0.21 - 0.73 ng/ml Female: First trimester 11.22 - 90.00 ng/ml Second trimester 25.55 - 89.40 ng/ml Third trimester 48.40 - 422.50 ng/ml Performed By: #### L H, PROG, E2 #### [place] [address] E2on 03-07-2025 Estradiol Level 74.44 pg/mL Normal [facility] Comment on above: Result Comment: Adult Female E2 Reference Ranges: Follicular phase 19.5 - 144.2 pg/mL Midcycle 63.9 - 356.7 pg/mL Luteal phase 55.8 - 214.2 pg/mL Post menopausal 0 - 33.2 pg/mL Performed By: #### L H, E2, PROG #### [place] [address] LHon 09-05-2025 LH 4.0 mIU/mL Normal [facility] Comment on above: Result Comment: No te - New Reference Range in effect 20Adult Female LH Reference Ranges: Follicular phase 1.9 - 12.5 mIU/mL Midcycle phase 8.7 - 76.3 mIU/mL Luteal phase 0.5 - 16.9 mIU/mL Post menopausal 5.0 - 55.2 mIU/mL Performed By: #### E 2, LH, PROG #### [address] [address] PROGon 03-07-2025 Progesterone Level <0.2 Normal [facility] Comment on above: Result Comment: Adul t Female Progesterone Reference Ranges: Follicular phase <0.21 - 1.40 ng/mL Luteal phase 3.34 - 25.56 ng/mL Mid-Luteal phase 4.44 - 28.03 ng/mL Postmenopausal <0.21 - 0.73 ng/ml Female: First trimester 11.22 - 90.00 ng/ml Second trimester 25.55 - 89.40 ng/ml Third trimester 48.40 - 422.50 ng/ml Performed By: #### E 2, LH, PROG #### [address] [address] Director Meetings Office Visit Reporton 03-06-2025 Director Meetings Office Visit Report [facility] [address], [address] [place] [address] OFFICE VISIT Date of Service: 03/06/25 MR#: [id number] Acct: [id number] Name: JOSE EDWARD Rep #: [id number] : 1995 Provider: Dr. 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 Is patient in pain?: No Allergies Latex, Natural Rubber Allergy (Intermediate, Verified 03/06/25 14:34) Other azithromycin (From Zithromax) Allergy (Verified 03/06/25 14:34) JOHN VIJI[employer]OME venlafaxine Allergy (Verified 03/06/25 14:34) Other Medications ???Medication ???Instructions ???Recorded ???Confirmed ???Type omeprazole 20 mg tablet,delayed 20 mg PO DAILY 10/03/23 03/06/25 H istory release cholecalciferol (vitamin D3) 50 2,000 unit PO DAILY 10/11/2403/06 History mcg (2,000 unit) capsule (D3-2000) metformin 750 mg tablet,extended 750 mg PO DAILY 10/11/24 03/06/25 History release 24 hr prednisone 10 mg tablet 10 mg PO BID 10/11/24 03/06/25 His tory multivitamin no.47-iron fum 27 1 cap PO DAILY #90 caps 01/14/25 0 03/06/25 Rx mg-folate no.1 1 mg-dha 300 mg capsule (PNV-DHA) aspirin 81 mg tablet 81 mg PO QDAY 03/06/25 03/06/25 Hi story enoxaparin 30 mg/0.3 mL 30 mg subcut Q24H 03/06/25 5 History subcutaneous syringe (Lovenox) loratadine 10 mg tablet (Claritin) 10 mg PO QDAY 03/06/25 03/06/25 History naltrexone 1.5 mg capsule 3 mg PO .once a day 03/06/2503/06 History Post menopausal: No Patient : No : No PFSH Medical History Abnormal uterine bleeding Conceived by in vitro fertilization Supervision of high-risk Decreased movement False labor before 37 completed weeks of gestation premature rupture of membranes (PPROM) with unknown onset of labor Genetic testing of female Wears contact lenses Anxiety Alcohol use Heartburn Vapes nicotine containing substance Endometrial polyp Abnormal uterine bleeding (AUB) Surgical History [place] teeth extracted History of hysteroscopy Status post laparoscopy S/P D C (status post dilation and curettage) Hx of lumpectomy History of tonsillectomy and adenoidectomy Family History Mother Diabetes Uncle Diabetes Grandmother Diabetes Social History (Updated 03/06/25 @ 14:47 by Dunia Fuentes) adopted: No household members: spouse number of children: 1 current occupational status: employed current occupation: [employer] current occupational exposures/hazards: No pets and animals: Yes (Avoid litterbox) pets and animals: cat(s) and dog(s) history of recent travel: Yes ([facility]) out of state: Yes out of country: No sexually active: Yes Smoking Status: Former smoker Electronic Cigarette Use: with nicotine alcohol intake: never substance use type: does not use well-balanced diet: daily or most days caffeine: No eating out: 1-3 times/week during the past year weight has: increased > 10 lbs what type of physical activity do you participate in: none jessica/yazdanism: Mandaen seatbelt use: always do you feel safe at home: Yes additional social history: - Rene- Chuck History 3 Elective abortions Hx Para 1 Spontaneous abortions 2 Hx # Term Pregnancies Ectopic pregnancies Hx # Pregnancies 1 Multiple births # of living children 1 Past Pregnancies Del. Date Name GA/Weeks Outcome Route Bth Weight Infant Gen Labor Lgth Anesthesia Del Locatn Provider FOB 01/15/18 7 spontaneous 08/05/23 chemical 5 03/14/24 Josue 30 live - 3lbs 6oz Male spinal [facility] Delivery Date: 03/14/24 Last Updated by: Makenzie Montesinos RN See problem list for complications HPI Encounter for routine gynecological examination Details: JOSE EDWARD is a 29 year old who presents for annual exam. she is going through an IVF cycle currently. She is taking letrazole and soon will have hcg injections and then the IVF transfer. Last PAP: 10/12/23 History of abnormal PAP: no Last mammogram: n/a History of abnormal mammogram:n/a Colon cancer screening: n/a Other preventative health care screenings: followed by pcp Female Reproductive History Cycle Length: 21-35 Bleeding Duration: 5 Questions: metrorrhagia: No, sexually active: Yes, dyspareunia: No and PCB: No Menopausal Symptoms: (more content not included)... [facility] E2on 02-28-2025 Estradiol Level 44.61 pg/mL Normal [facility] Comment on above: Result Comment: Adult Female E2 Reference Ranges: Follicular phase 19.5 - 144.2 pg/mL Midcycle 63.9 - 356.7 pg/mL Luteal phase 55.8 - 214.2 pg/mL Post menopausal 0 - 33.2 pg/mL Performed By: #### E 2, LH, PROG #### [place] [address] FSHon 02-28-2025 FSH 6.6 mIU/mL Normal [facility] Comment on above: Result Comment: Adul t Female FSH Reference Ranges (05/26/99): Follicular phase 2.5 - 10.2 mIU/mL Midcycle phase 3.4 - 33.4 mIU/mL Luteal phase 1.5 - 9.1 mIU/mL Post menopausal 23.0 -116.3 mIU/mL Adult Male: 1.4 - 18.1 mIU/mL Performed By: #### E 2, LH, PROG #### [place] [address] FT3on 02-28-2025 Free T3 [Mass/Vol] 2.68 pg/mL Normal 2.30-4.20 [facility] Comment on above: Performed By: #### E 2, LH, PROG #### [place] [address] FT4on 02-28-2025 Free T4 [Mass/Vol] 1.24 ng/dL Normal 0.89-1.76 [facility] Comment on above: Result Comment: No te - New Reference Range in effect 20 Performed By: #### E 2, LH, PROG #### [place] [id number] HCGon 02-28-2025 Date of LMP 02/26/2025 Normal [facility] Comment on above: Performed By: #### E 2, LH, PROG #### [place] [id number] hCG, quantitative <1.0 Normal [facility] Comment on above: Performed By: #### E 2, LH, PROG #### [place] [id number] [place] [address] LHon 02-28-2025 LH 6.1 mIU/mL Normal [facility] Comment on above: Result Comment: No te - New Reference Range in effect 20 Adult Female LH Reference Ranges: Follicular phase 1.9 - 12.5 mIU/mL Midcycle phase 8.7 - 76.3 mIU/mL Luteal phase 0.5 - 16.9 mIU/mL Post menopausal 5.0 - 55.2 mIU/mL Performed By: #### E 2, LH, PROG #### [address] [address] PROGon 02-28-2025 Progesterone Level 0.3 ng/mL Normal [facility] Comment on above: Result Comment: Adul t Female Progesterone Reference Ranges: Follicular phase <0.21 - 1.40 ng/mL Luteal phase 3.34 - 25.56 ng/mL Mid-Luteal phase 4.44 - 28.03 ng/mL Postmenopausal <0.21 - 0.73 ng/ml Female: First trimester 11.22 - 90.00 ng/ml Second trimester 25.55 - 89.40 ng/ml Third trimester 48.40 - 422.50 ng/ml Performed By: #### E 2, LH, PROG #### [address] [address] TSHon 02-28-2025 TSH 0.688 mIU/mL Normal 0.550-4.780 [facility] Comment on above: Performed By: #### E 2, LH, PROG #### [facility] [address] [place] [address] Urine Cultureon 10-15-2024 URC Culture exhibits no growth. Normal [facility] Comment on above: Performed By: #### M 100.2200 ####[facility] [id number] [place], [address] Abdomen Single View (Portabl e)on 10-14-2024 Abdomen Single View (Portable) [facility] Imaging Services [address] [place] [address] Abdomen Single View (Portable) MR#: [id number] Acct: [id number] Name: JOSE EDWARD Rep #: [id number] : 1995 F 29 From: Nataliya Brown DO PCP: CHERYL Samano Status: PRE ER Study: Abdomen Single View (Portable) Date of Exam: 0 10/14/24 Exam# [id number] Ordering Dr: Anabella Malave PROCEDURE: ABDOMEN SINGLE VIEW (PORTABLE) 10/14/2024 REASON FOR EXAM: ABDOMINAL PAIN, CONSTIPATION TECHNIQUE: Single view abdomen. COMPARISON: None FINDINGS: Bowel gas: Nonobstructive bowel gas pattern. No evidence of obstruction. Mild stool burden within the large bowel. Calcifications: No suspicious calcifications. Bones: The bones are unremarkable. Other: RAD/Abdomen Single View (Portable) IMPRESSION: CONSTIPATION. Reading Location: [employer] CC: CHERYL Weinstein; CHERYL Samano Barge Pilot: Signed Normal [facility] Absolute neutrophil countOrd ered By: Soren Babcock on 10-14-2024 Neutrophils (Bld) [#/Vol] 7.7 10*3/uL 2.0-7.7 [facility] Amorphous sediment detection in urine sediment by light microscopyOrdered By: Anabella Malave on 10-14-2024 Amorphous sediment LM Ql (Urine sed) 1+ PHOS [facility] Anion gap in Serum or Plasma Ordered By: Soren Babcock on 10-14-2024 Anion gap [Moles/Vol] 11 mmol/L 5-15 [facility] BUN/creatinine ratioOrdered By: Soren Babcock on 10-14-2024 Urea nitrogen/Creatinine [Mass ratio] 15.2 mg/mg 10-20 [facility] Basophil percentageOrdered B y: Soren Babcock on 10-14-2024 Basophils/100 WBC (Bld) 0.2 % 0-1 [facility] Beta HCG ( test) Ql Ordered By: Soren Babcock on 10-14-2024 Serum Test, Qualitative Negative [facility] Bilirubin Test strip Ql (U)O rdered By: Anabella Malave on 10-14-2024 Bilirubin Ql (U) 3 mg/dL High Negative [facility] Comment on above: COLOR OF URINE MAY A FFECT DIPSTICK RESULTS. Bilirubin, totalOrdered By: Soren Babcock on 10-14-2024 Bilirubin [Mass/Vol] 0.56 mg/dL 0.00-1.30 [facility] CBC W/Diff, Automatedon 10-01 Absolute Lymph 2.42 X10 3/uL Normal 0.83-4.51 [facility] Comment on above: Performed By: #### L 501.2450, L500.4050, L100.0100, L700.6800 #### [facility] [address] [place], [address] Absolute Neut 7.7 X10 3/uL Normal 2.0-7.7 [facility] Comment on above: Performed By: #### L 501.2450, L500.4050, L100.0100, L700.6800 #### [facility] [address] [place], [address] Basophils/100 WBC (Bld) 0.2 % Normal 0-1 [facility] Comment on above: Performed By: #### L 501.2450, L500.4050, L100.0100, L700.6800 #### [facility] [address] [place], [address] Eosinophils/100 WBC (Bld) 1.6 % Normal 0-5 [facility] Comment on above: Performed By: #### L 501.2450, L500.4050, L100.0100, L700.6800 #### [facility] [address] [place], [address] Erythrocyte distribution width (RBC) [Ratio] 14.4 % Normal 11.6-14.6 [facility] Comment on above: Performed By: #### L 501.2450, L500.4050, L100.0100, L700.6800 #### [facility] [address] [place], [address] Hematocrit (Bld) [Volume fraction] 32.0 % Low 37-47 [facility] Comment on above: Performed By: #### L 501.2450, L500.4050, L100.0100, L700.6800 #### [facility] [address] [place], [address] Hemoglobin (Bld) [Mass/Vol] 10.4 g/dL Low 12.0-15.0 [facility] Comment on above: Performed By: #### L 501.2450, L500.4050, L100.0100, L700.6800 #### [facility] [address] [place], [address] IG% 0.500 Normal 0.0-0.9 [facility] Comment on above: Result Comment: IG% - Immature Granulocytes (promyelocytes, myelocytes and metamyelocytes) > 1% indicates that a LEFT SHIFT is Present. Performed By: #### L 501.2450, L500.4050, L100.0100, L700.6800 #### [facility] [address] [place], [address] Lymphocytes/100 WBC (Bld) 21.9 % Normal 19-41 [facility] Comment on above: Performed By: #### L 501.2450, L500.4050, L100.0100, L700.6800 #### [facility] [address] [place], [address] MCH (RBC) [Entitic mass] 29.9 pg Normal 27.0-32.0 [facility] Comment on above: Performed By: #### L 501.2450, L500.4050, L100.0100, L700.6800 #### [facility] [address] [place], [address] MCHC (RBC) [Mass/Vol] 32.5 g/dL Normal 32-36 [facility] Comment on above: Performed By: #### L 501.2450, L500.4050, L100.0100, L700.6800 #### [facility] [address] [place], [address] MCV (RBC) [Entitic vol] 92.0 fL Normal 81-99 [facility] Comment on above: Performed By: #### L 501.2450, L500.4050, L100.0100, L700.6800 #### [facility] [address] [place], [address] Monocytes/100 WBC (Bld) 6.5 % Normal 0-10 [facility] Comment on above: Performed By: #### L 501.2450, L500.4050, L100.0100, L700.6800 #### [facility] [address] [place], [address] Neutrophils/100 WBC (Bld) 69.3 % Normal 47-70 [facility] Comment on above: Performed By: #### L 501.2450, L500.4050, L100.0100, L700.6800 #### [facility] [address] [place], [address] Nucleated RBC (Bld) [#/Vol] 0 10*3/uL Normal 0-5 [facility] Comment on above: Performed By: #### L 501.2450, L500.4050, L100.0100, L700.6800 #### [facility] [address] [place], [address] Platelet mean volume (Bld) [Entitic vol] 9.2 fL Normal 6.2-12.0 [facility] Comment on above: Performed By: #### L 501.2450, L500.4050, L100.0100, L700.6800 #### [facility] [address] [place], [address] Platelets (Bld) [#/Vol] 237 10*3/uL Normal 150-450 [facility] Comment on above: Performed By: #### L 501.2450, L500.4050, L100.0100, L700.6800 #### [facility] [address] [place], [address] RBC (Bld) [#/Vol] 3.48 10*6/uL Low 4.2-5.4 [facility] Comment on above: Performed By: #### L 501.2450, L500.4050, L100.0100, L700.6800 #### [facility] [address] [place], [address] RDW SD 46.8 fl High 35.1-43.9 [facility] Comment on above: Performed By: #### L 501.2450, L500.4050, L100.0100, L700.6800 #### [facility] [address] [place], [address] WBC (Bld) [#/Vol] 11.1 10*3/uL High 4.4-11.0 [facility] Comment on above: Performed By: #### L 501.2450, L500.4050, L100.0100, L700.6800 #### [facility] [address] [place], [address] Carbon dioxide, total [Moles /volume] in Central venous bloodOrdered By: Soren Babcock on 10-14-2024 CO2 [Moles/Vol] 24.3 mmol/L 21.0-32.0 [facility] Chloride assayOrdered By: Ayan Babcock on 10-14-2024 Chloride [Moles/Vol] 101 mmol/L 98-108 [facility] Comprehensive Metabolic Prof ilon 10-14-2024 Albumin [Mass/Vol] 4.0 g/dL Normal 3.5-5.0 [facility] Comment on above: Performed By: #### L 501.2450, L500.4050, L100.0100, L700.6800 #### [facility] [address] [place], [address] Albumin/Globulin [Mass ratio] 1.7 {ratio} Normal 0.9-2.4 [facility] Comment on above: Performed By: #### L 501.2450, L500.4050, L100.0100, L700.6800 #### [facility] [address] [place], [address] ALK PHOS 65 U/L Normal 35-104 [facility] Comment on above: Performed By: #### L 501.2450, L500.4050, L100.0100, L700.6800 #### [facility] [address] [place], [address] ALT [Catalytic activity/Vol] 14 U/L Normal <=34 [facility] Comment on above: Performed By: #### L 501.2450, L500.4050, L100.0100, L700.6800 #### [facility] [address] [place], [address] AST [Catalytic activity/Vol] 19 U/L Normal <=31 [facility] Comment on above: Performed By: #### L 501.2450, L500.4050, L100.0100, L700.6800 #### [facility] [address] [place], [address] Bilirubin [Mass/Vol] 0.56 mg/dL Normal 0.00-1.30 [facility] Comment on above: Performed By: #### L 501.2450, L500.4050, L100.0100, L700.6800 #### [facility] [address] [place], [address] BUN/CRE 15.2 RATIO Normal 10-20 [facility] Comment on above: Performed By: #### L 501.2450, L500.4050, L100.0100, L700.6800 #### [facility] [address] [place], [address] Calcium [Mass/Vol] 8.8 mg/dL Normal 7.6-11.0 [facility] Comment on above: Performed By: #### L 501.2450, L500.4050, L100.0100, L700.6800 #### [facility] [address] [place], [address] Chloride [Moles/Vol] 101 mmol/L Normal 98-108 [facility] Comment on above: Performed By: #### L 501.2450, L500.4050, L100.0100, L700.6800 #### [facility] [address] [place], [address] CO2 [Moles/Vol] 24.3 mmol/L Normal 21.0-32.0 [facility] Comment on above: Performed By: #### L 501.2450, L500.4050, L100.0100, L700.6800 #### [facility] [address] [place], [address] Creatinine [Mass/Vol] 0.60 mg/dL Low 0.70-1.20 [facility] Comment on above: Performed By: #### L 501.2450, L500.4050, L100.0100, L700.6800 #### [facility] [address] [place], [address] ECRCL 141.63 ml/min Normal 50-250 [facility] Comment on above: Performed By: #### L 501.2450, L500.4050, L100.0100, L700.6800 #### [facility] [address] [place], [address] GAP 11 Normal 5-15 [facility] Comment on above: Performed By: #### L 501.2450, L500.4050, L100.0100, L700.6800 #### [facility] [address] [place], [address] GFR/1.73 sq M.predicted among non-blacks MDRD (S/P/Bld) [Vol rate/Area] 126 mL/min/{1.73_m2} Normal >60 [facility] Comment on above: Result Comment: mL/m in/1.73m2 CKD-EPI Creatinine Equation (2020) Performed By: #### L 501.2450, L500.4050, L100.0100, L700.6800 #### [facility] [address] [place], [address] Globulin (S) [Mass/Vol] 2.4 g/dL Normal 2.2-4.2 [facility] Comment on above: Performed By: #### L 501.2450, L500.4050, L100.0100, L700.6800 #### [facility] [address] [place], [address] Glucose [Mass/Vol] 112 mg/dL High 70-99 [facility] Comment on above: Performed By: #### L 501.2450, L500.4050, L100.0100, L700.6800 #### [facility] [address] [place], [address] Potassium [Moles/Vol] 3.7 mmol/L Normal 3.3-5.1 [facility] Comment on above: Performed By: #### L 501.2450, L500.4050, L100.0100, L700.6800 #### [facility] [address] [place], [address] Sodium [Moles/Vol] 137 mmol/L Normal 133-145 [facility] Comment on above: Performed By: #### L 501.2450, L500.4050, L100.0100, L700.6800 #### [facility] [address] [place], [address] T PROT 6.4 g/dL Normal 5.9-8.4 [facility] Comment on above: Performed By: #### L 501.2450, L500.4050, L100.0100, L700.6800 #### [facility] [address] [place], [address] Urea nitrogen [Mass/Vol] 9 mg/dL Normal 4-19 [facility] Comment on above: Performed By: #### L 501.2450, L500.4050, L100.0100, L700.6800 #### [facility] [address] [place], [address] Emergency Department Summary on 10-14-2024 Emergency Department Summary [facility] Medical Records Department [address] [place] [address] Emergency Department Summary 10/14/24 MR#: [id number] Acct: [id number] Name: JOSE EDWARD Rep #: [id number] : 1995 29 From: Soren Babcock MD PCP: CHERYL Samano Status:REG ER Location: ED HPI History of Present Illness Chief Complaint: Abd Pain Narrative Narrative: 29-year-old female presents with abdominal pain. On 10/11/2024 she drove to [place], [place] to have egg retrieval at a fertility clinic. They did the procedure vaginally and punctured her bladder while retrieving some eggs. They prescribed Keflex and Pyridium. She drove home that same day and developed chest pain, shortness of breath, nausea and abdominal pain and had difficulty emptying her bladder. She was evaluated at [place] ED on the same day 10/[address] scan of chest abdomen pelvis negative for PE. There were enlarged ovaries with numerous cysts and moderate volume ascites compatible with ovarian hyperstimulation syndrome. She also had a West placed for urinary retention. She was transferred to [facility] for definitive treatment. She states they attempted a paracentesis yesterday but were unsuccessful. She showed me the report???they did left- sided paracentesis but the fluid dispersed and there was not enough to remove. Patient states she had been constipated and did not have a bowel movement for 6 days so they were concerned they may hit her bowel and the procedure was terminated. Her West catheter was also removed yesterday. Mulugeta also prescribed Lovenox shots x 1 week. She presents because she had a low-grade temperature of 99 ???F and still having nausea and generalized abdominal pain and is urinating frequent small amounts. The chest pain and shortness of breath are much better. [facility] Medical History Abnormal uterine bleeding Conceived by in vitro fertilization Supervision of high-risk Decreased movement False labor before 37 completed weeks of gestation premature rupture of membranes (PPROM) with unknown onset of labor Genetic testing of female Wears contact lenses Anxiety Alcohol use Heartburn Vapes nicotine containing substance Endometrial polyp Abnormal uterine bleeding (AUB) Home Medications ???Medication ???Instructions ???Recorded ???Last Taken ???Type omeprazole 20 mg tablet,delayed 20 mg PO DAILY 10/03/23 02/16/24 0 8:00 History release 20 mg multivitamin no.47-iron fum 27 1 cap PO DAILY #30 caps 12/15/23 0 02/16/24 12:00 Rx mg-folate no.1 1 mg-dha 300 mg 1 cap capsule (PNV-DHA) blood sugar diagnostic (Blood #50 ea 02/26/24 Unknown Rx Glucose Test strips) blood-glucose meter #1 ea 02/26/24 Unknown Rx lancets 30 gauge (Droplet Lancets) #200 ea 02/26/24 Unknown Rx flash glucose scanning reader #1 ea 02/28/24 Unknown Rx (FreeStyle Lexi 2 [place]) flash glucose sensor (FreeStyle #1 ea 02/28/24 Unknown Rx Lexi 2 Sensor kit) PNV no.151-iron 27 mg-folic 800 1 cap PO DAILY 10/11/24 Unknown Hi story mcg-omega3 260 ao-zoy-ycm-fish capsule ( Multi-DHA (with vitamin K)) cabergoline 0.5 mg tablet 0.5 mg PO DAILY 10/11/24 Unknown H istory cephalexin 500 mg capsule 500 mg PO BID 10/11/24 Unknown His tory cholecalciferol (vitamin D3) 50 2,000 unit PO DAILY 10/11/24 Unkno wn History mcg (2,000 unit) capsule (D3-2000) metformin 750 mg tablet,extended 750 mg PO DAILY 10/11/24 Unknown H istory release 24 hr phenazopyridine 200 mg tablet 200 mg PO BID 10/11/24 Unknown His tory (Pyridium) prednisone 10 mg tablet 10 mg PO BID 10/11/24 Unknown Hist ory peg 3350-electrolytes 236 240 ml PO Q10M PRN #4,000 mL 10/14 Unknown Rx gram-22.74 gram-6.74 gram-5.86 gram solution (Golytely) Allergy/AdvReac Type Severity Reaction Status Date / Time Latex, Natural Rubber Allergy Intermediate Other Verified 10/14/24 18:30 azithromycin (From Zithromax) Allergy JOHN Verified 10/14/24 18:30 VIJI[employer]S SYNDROME venlafaxine Allergy Other Verified 10/14/24 18:30 Family History Mother Diabetes Uncle Diabetes Grandmother Diabetes Surgical History [place] teeth extracted History of hysteroscopy Status post laparoscopy S/P D C (status post dilation and curettage) Hx of lumpectomy History of tonsillectomy and adenoidectomy Social History adopted: No household members: spouse number of children: 0 current occupational status: employed current occupation: [employer] current occupational exposures/hazards: No pets and animals: Yes (Avoid litterbox) pets and animals: (more content not included)... Normal [facility] Eosinophil percentageOrdered By: Soren Babcock on 10-14-2024 Eosinophils/100 WBC (Bld) 1.6 % 0-5 [facility] Epithelial cells.squamous LM Ql (Urine sed)Ordered By: Anabella Malave on 10-14-2024 Epithelial cells.squamous LM.HPF (Urine sed) [#/Area] 25 /[HPF] 5-10 [facility] Erythrocyte distribution wid th (RBC) [Ratio]Ordered By: Soren Babcock on 10-14-2024 Erythrocyte distribution width (RBC) [Entitic vol] 46.8 fL High 35.1-43.9 [facility] Erythrocyte distribution wid th ratioOrdered By: Soren Babcock on 10-14-2024 Erythrocyte distribution width (RBC) [Ratio] 14.4 % 11.6-14.6 [facility] Estimation of creatinine rory aranceOrdered By: Soren Babcock on 10-14-2024 Estimated Creatinine Clearance Calc 141.63 ml/min 50-250 [facility] GFR/1.73 sq M.predicted checo g non-blacks MDRD (S/P/Bld) [Vol rate/Area]Ordered By: Soren Babcock on 10-14-2024 Estimated GFR (MDRD) Non-Af Amer 126 >60 [facility] Comment on above: mL/min/1.73m2 CKD-EP I Creatinine Equation (2020) Glucose Ql (U)Ordered By: Carolyn Malave on 10-14-2024 Urine Glucose (UA) Normal mg/dl Normal [facility] Hematocrit Auto (Bld) [Volum e fraction]Ordered By: Soren Babcock on 10-14-2024 Hematocrit (Bld) [Volume fraction] 32.0 % Low 37-47 [facility] Hemoglobin measurementOrdere d By: Soren Babcock on 10-14-2024 Hemoglobin (Bld) [Mass/Vol] 10.4 g/dL Low 12.0-15.0 [facility] Immature granulocytes/100 WB C Auto (Bld)Ordered By: Soren Babcock on 10-14-2024 Immature granulocytes/100 WBC (Bld) 0.500 % 0.0-0.9 [facility] Comment on above: IG% - Immature Granu locytes (promyelocytes, myelocytes and metamyelocytes) > 1% indicates that a LEFT SHIFT is Present. Ketones Test strip Ql (U)Ord ered By: Anabella Malave on 10-14-2024 Ketones Ql (U) Negative Negative [facility] - Chemistry and C hemistry - challengeOrdered By: Soren Babcock on 10-14-2024 AST [Catalytic activity/Vol] 19 U/L <32 [facility] Lipaseon 10-14-2024 Lipase [Catalytic activity/Vol] 29 U/L Normal 13-75 [facility] Comment on above: Result Comment: Cyndi hawk note: LIPASE revised reference range effective 22. New Lipase methodology. Expected to produce lower values than the previous assay method. NEW Reference Range: 13 - 75 U/L Performed By: #### L 501.2450, L500.4050, L100.0100, L700.6800 #### [facility] [address] [place], [address] Lipase measurementOrdered By : Soren Babcock on 10-14-2024 Lipase [Catalytic activity/Vol] 29 U/L 13-75 [facility] Comment on above: Please note:LIPASE r evised reference range effective 22. New Lipase methodology. Expected to produce lower values than the previous assay method. NEW Reference Range: 13 - 75 U/L Lymphocytes Auto (Unsp spec) [#/Vol]Ordered By: Soren Babcock on 10-14-2024 Lymphocytes (Bld) [#/Vol] 2.42 10*3/uL 0.83-4.51 [facility] Lymphocytes/100 WBC Auto (Un sp spec)Ordered By: Soren Babcock on 10-14-2024 Lymphocytes/100 WBC (Bld) 21.9 % 19-41 [facility] MCV (mean corpuscular volume ) determinationOrdered By: Soren Babcock on 10-14-2024 MCV (RBC) [Entitic vol] 92.0 fL 81-99 [facility] Mean corpuscular hemoglobin (MCH) determinationOrdered By: Soren Babcock on 10-14-2024 MCH (RBC) [Entitic mass] 29.9 pg 27.0-32.0 [facility] Mean corpuscular hemoglobin concentration (MCHC) determinationOrdered By: Soren Babcock on 10-14-2024 MCHC (RBC) [Mass/Vol] 32.5 g/dL 32-36 [facility] Mean platelet volume determi nationOrdered By: Soren Babcock on 10-14-2024 Platelet mean volume (Bld) [Entitic vol] 9.2 fL 6.2-12.0 [facility] Microscopic analysis of urin e for red blood cells (RBC)Ordered By: Anabella Malave on 10-14-2024 Urine RBC 10-25 SEEN /hpf 0-5 [facility] Monocyte percentageOrdered B y: Soren Babcock on 10-14-2024 Monocytes/100 WBC (Bld) 6.5 % 0-10 [facility] Mucus LM Ql (Urine sed)Order ed By: Anabella Malave on 10-14-2024 Mucus Ql (Urine sed) 0 SEEN /hpf [facility] Neutrophil percentageOrdered By: Soren Babcock on 10-14-2024 Neutrophils/100 WBC (Bld) 69.3 % 47-70 [facility] Nitrite Test strip Ql (U)Ord ered By: Anabella Malave on 10-14-2024 Nitrite Ql (U) Positive High Negative [facility] Nucleated red blood cell per centageOrdered By: Soren Babcokc on 10-14-2024 Nucleated RBC/100 WBC (Bld) [Ratio] 0 % 0-5 [facility] Platelet countOrdered By: Ayan Babcock on 10-14-2024 Platelets (Bld) [#/Vol] 237 10*3/uL 150-450 [facility] Potassium (Unsp spec) [Mass/ Vol]Ordered By: Soren Babcock on 10-14-2024 Potassium [Moles/Vol] 3.7 mmol/L 3.3-5.1 [facility] ,Serum,hCG Quali.on 10-14-2024 HCG, SERUM QUAL Negative Normal [facility] Comment on above: Performed By: #### L 501.7720, L500.4050, L100.0100, L700.6800 #### [facility] [address] [place], [address] Protein Test strip Ql (U)Ord ered By: Anabella Malave on 10-14-2024 Protein Ql (U) 30 mg/dl High Negative [facility] RBC Auto (Bld) [#/Vol]Ordere d By: Soren Babcock on 10-14-2024 RBC (Bld) [#/Vol] 3.48 10*6/uL Low 4.2-5.4 [facility] Serum creatinine measurement (mass/volume)Ordered By: Soren Babcock on 10-14-2024 Creatinine [Mass/Vol] 0.60 mg/dL Low 0.70-1.20 [facility] Serum globulin measurementOr dered By: Soren Babcock on 10-14-2024 Globulin (S) [Mass/Vol] 2.4 g/dL 2.2-4.2 [facility] Serum glucose measurement (m ass/volume)Ordered By: Soren Babcock on 10-14-2024 Glucose [Mass/Vol] 112 mg/dL High 70-99 [facility] Serum or plasma alanine eric otransferase (ALT) measurementOrdered By: Soren Babcock on 10-14-2024 ALT [Catalytic activity/Vol] 14 U/L <35 [facility] Serum or plasma albumin shannon urement (mass/volume)Ordered By: Soren Babcock on 10-14-2024 Albumin [Mass/Vol] 4.0 g/dL 3.5-5.0 [facility] Serum or plasma albumin/glob ulin mass ratioOrdered By: Soren Babcock on 10-14-2024 Albumin/Globulin [Mass ratio] 1.7 {ratio} 0.9-2.4 [facility] Serum or plasma alkaline meredith sphatase measurementOrdered By: Soren Babcock on 10-14-2024 ALP [Catalytic activity/Vol] 65 U/L 35-104 [facility] Serum or plasma calcium shannon urement (mass/volume)Ordered By: Soren Babcock on 10-14-2024 Calcium [Mass/Vol] 8.8 mg/dL 7.6-11.0 [facility] Serum or plasma urea nitroge n measurement (mass/volume)Ordered By: Soren Babcock on 10-14-2024 Urea nitrogen [Mass/Vol] 9 mg/dL 4-19 [facility] Sodium levelOrdered By: Soren Babcock on 10-14-2024 Sodium [Moles/Vol] 137 mmol/L 133-145 [facility] Total proteinOrdered By: Max Babcock on 10-14-2024 Protein [Mass/Vol] 6.4 g/dL 5.9-8.4 [facility] Urinalysis, Completeon 10-14 AMORPHOUS 1+ PHOS Normal [facility] Comment on above: Order Comment: COLOR OF URINE MAY AFFECT DIPSTICK RESULTS.RETAIL SELLING FLOOR LEADER TO SPECIFY Performed By: #### L 400.0001 ####[facility] [address] [place], [address] RBC 10-25 SEEN Normal 0-5 [facility] Comment on above: Order Comment: COLOR OF URINE MAY AFFECT DIPSTICK RESULTS.RETAIL SELLING FLOOR LEADER TO SPECIFY Performed By: #### L 400.0001 ####[facility] [address] [place], [address] EPI,SQUAMOUS 25-50 SEEN Normal 5-10 [facility] Comment on above: Order Comment: COLOR OF URINE MAY AFFECT DIPSTICK RESULTS.RETAIL SELLING FLOOR LEADER TO SPECIFY Performed By: #### L 400.0001 ####[facility] [address] [place], [address] WBC 0-5 SEEN Normal 0-5 [facility] Comment on above: Order Comment: COLOR OF URINE MAY AFFECT DIPSTICK RESULTS.RETAIL SELLING FLOOR LEADER TO SPECIFY Performed By: #### L 400.0001 ####[facility] [address] [place], [address] BACTERIA 0 SEEN Normal None Seen [facility] Comment on above: Order Comment: COLOR OF URINE MAY AFFECT DIPSTICK RESULTS.RETAIL SELLING FLOOR LEADER TO SPECIFY Performed By: #### L 400.0001 ####[facility] [address] [place], [address] Mucus Ql (Urine sed) 0 SEEN Normal [facility] Comment on above: Order Comment: COLOR OF URINE MAY AFFECT DIPSTICK RESULTS.RETAIL SELLING FLOOR LEADER TO SPECIFY Performed By: #### L 400.0001 ####[facility] [address] [place], [address] Urine blood detectionOrdered By: Anabella Malave on 10-14-2024 Urine Occult Blood 150 /ul High Negative [facility] Urine clarityOrdered By: Sapna Malave on 10-14-2024 Clarity (U) Sl. Cloudy Clear [facility] Urine color determinationOrd ered By: Anabella Malave on 10-14-2024 Color (U) Rita Yellow [facility] Urine leukocyte esterase det ection by dipstickOrdered By: Anabella Malave on 10-14-2024 Leukocyte esterase Test strip Ql (U) 25 /ul High Negative [facility] Urine pHOrdered By: Anabella watters on 10-14-2024 pH (U) 7.0 [pH] 5.0 - 8.0 [facility] Urine sediment bacteria coun t by microscopy (number/high power field)Ordered By: Anabella Malave on 10-14-2024 Bacteria LM.HPF (Urine sed) [#/Area] 0 /[HPF] None Seen [facility] Urine specific gravity measu rementOrdered By: Anabella Malave on 10-14-2024 Specific gravity (U) [Rel density] 1.015 1.002-1.030 [facility] Urobilinogen Ql (U)Ordered B y: Anabella Malave on 10-14-2024 Urobilinogen (U) [Mass/Vol] 8 mg/dL High Normal [facility] White blood cell (WBC) count Ordered By: Soren Babcock on 10-14-2024 WBC (Bld) [#/Vol] 11.1 10*3/uL High 4.4-11.0 [facility] White blood cell countOrdere d By: Anabella Malave on 10-14-2024 Urine WBC 0-5 SEEN /hpf 0-5 [facility] 30on 10-13-2024 30 Problem: Pain - Adul t Goal: Verbalizes/displays adequate comfort level or baseline comfort level Outcome: Progressing Problem: Safety - Adult Goal: Free from fall injury Outcome: Progressing Problem: Discharge Planning Goal: Discharge to home or other facility with appropriate resources Outcome: Progressing Problem: Chronic Conditions and Co-morbidities Goal: Patient's chronic conditions and co-morbidity symptoms are monitored and maintained or improved Outcome: Progressing Normal [facility] CBC (HEMOGRAM)on 10-13-2024 Erythrocyte distribution width (RBC) [Ratio] 13.9 % Normal 11.5-15.0 [facility] Comment on above: Performed By: #### L [id number] ####Brands Editor: GYPSY DAY ([id number])[facility])[address] [place] [address] Hematocrit (Bld) [Volume fraction] 28.9 % Low 35.0-47.0 [facility] Comment on above: Performed By: #### L [id number] ####Brands Editor: GYPSY DAY ([id number])[facility])[address] [place] [address] Hemoglobin (Bld) [Mass/Vol] 9.3 g/dL Low 11.7-16.0 [facility] Comment on above: Performed By: #### L [id number] ####Brands Editor: GYPSY DAY ([id number])[facility] ([facility])[address] [place] [address] MCH (RBC) [Entitic mass] 29.5 pg Normal 26.0-34.0 [facility] Comment on above: Performed By: #### L AB294 ####Brands Editor: GYPSY DAY ([id number])[facility])[address] [place] [address] MCHC 32.2 % Normal 30.5-36.0 [facility] Comment on above: Performed By: #### L [id number] ####Brands Editor: GYPSY DAY ([id number])[facility])[address] [place] [address] MCV (RBC) [Entitic vol] 91.7 fL Normal 77.0-99.0 [facility] Comment on above: Performed By: #### L [id number] ####Brands Editor: GYPSY DAY ([id number])[facility])[address] [place] [address] Platelet mean volume (Bld) [Entitic vol] 9.6 fL Normal 9.0-12.7 [facility] Comment on above: Performed By: #### L [id number] ####Brands Editor: GYPSY DAY ([id number])[facility] ([facility])[address] [place] [address] Platelets (Bld) [#/Vol] 227 10*3/uL Normal 140-440 [facility] Comment on above: Performed By: #### L [id number] ####Brands Editor: GYPSY DAY ([id number])[facility] ([facility])[address] [place] [address] RBC (Bld) [#/Vol] 3.15 10*6/uL Low 3.80-5.20 [facility] Comment on above: Performed By: #### L [id number] ####Brands Editor: GYPSY DAY ([id number])[facility] ([facility])[address] [place] [address] WBC (Bld) [#/Vol] 12.4 10*3/uL High 3.6-10.7 [facility] Comment on above: Performed By: #### L [id number] ####Brands Editor: GYPSY DAY ([id number])[facility] ([facility])[address] [place] [address] CBC panel Auto (Bld)on 10-13 Erythrocyte distribution width (RBC) [Ratio] 13.9 % 11.5 - 15.0 % [facility] Hematocrit (Bld) [Volume fraction] 28.9 % Low 35.0 - 47.0 % [facility] Hemoglobin (Bld) [Mass/Vol] 9.3 g/dL Low 11.7 - 16.0 g/dL [facility] Interpretation and review of laboratory results Abnormal [facility] MCH (RBC) [Entitic mass] 29.5 pg 26.0 - 34.0 pg [facility] MCHC (RBC) [Mass/Vol] 32.2 % 30.5 - 36.0 % [facility] MCV (RBC) [Entitic vol] 91.7 fL 77.0 - 99.0 fL [facility] Platelet mean volume (Bld) [Entitic vol] 9.6 fL 9.0 - 12.7 fL [facility] Platelets (Bld) [#/Vol] 227 10*3/uL 140 - 440 10*3/uL [facility] RBC (Bld) [#/Vol] 3.15 10*6/uL Low 3.80 - 5.2 0 10*6/uL [facility] WBC (Bld) [#/Vol] 12.4 10*3/uL High 3.6 - 10.7 10*3/uL [facility] COMPREHENSIVE METABOLIC PANE Mahendra 10-13-2024 Albumin [Mass/Vol] 2.8 g/dL Low 3.5-5.0 [facility] Comment on above: Performed By: #### L [id number] ####Brands Editor: GYPSY DAY ([id number])[facility] ([facility])[address] [place] [address] ALP [Catalytic activity/Vol] 49 U/L Normal 40-150 [facility] Comment on above: Performed By: #### L [id number] ####Brands Editor: GYPSY DAY ([id number])[facility] ([facility])[address] [place] [address] ALT [Catalytic activity/Vol] 9 U/L Normal <30 [facility] Comment on above: Performed By: #### L [id number] ####Brands Editor: GYPSY DAY ([id number])[facility] ([facility])[address] [place] [address] Anion gap [Moles/Vol] 4 mmol/L Normal 3-13 [facility] Comment on above: Performed By: #### L [id number] ####Brands Editor: GYPSY DAY ([id number])[facility] ([facility])[address] [place] [address] [place] AST [Catalytic activity/Vol] 14 U/L Normal <34 [facility] Comment on above: Performed By: #### L [id number] ####Brands Editor: GYPSY DAY ([id number])[facility] ([facility])[address] [place] [address] [place] Bilirubin [Mass/Vol] 0.2 mg/dL Normal <1.2 [facility] Comment on above: Performed By: #### L [id number] ####Brands Editor: GYPSY DAY ([id number])[facility])[address] [place] [address] Calcium [Mass/Vol] 7.9 mg/dL Low 8.4-10.2 [facility] Comment on above: Performed By: #### L [id number] ####Brands Editor: GYPSY DAY ([id number])[facility] ([facility])[address] [place] [address] Chloride [Moles/Vol] 110 mmol/L High 98-107 [facility] Comment on above: Performed By: #### L [id number] ####Brands Editor: GYPSY DAY ([id number])[facility] ([facility])[address] [place] [address] CO2 [Moles/Vol] 24 mmol/L Normal 22-29 [facility] Comment on above: Performed By: #### L [id number] ####Brands Editor: GYPSY DAY ([id number])[facility] ([facility])[address] [place] [address] Creatinine [Mass/Vol] 0.60 mg/dL Normal 0.57-1.11 [facility] Comment on above: Performed By: #### L [id number] ####Brands Editor: GYPSY DAY ([id number])[facility])[address] [place] [address] GLOMERULAR FILTRATION RATE ML/MIN/1.73 SQ M.PREDICTED >90.0 Normal >60.0 [facility] Comment on above: Result Comment: Calc ulation based on the Chronic Kidney Disease Epidemiology Collaboration (CKD-EPI) equation refit without adjustment for race Performed By: #### L [id number] ####Brands Editor: GYPSY DAY ([id number])[facility])[address] [place] [address] Glucose [Mass/Vol] 96 mg/dL Normal 74-100 [facility] Comment on above: Performed By: #### L [id number] ####Brands Editor: GYPSY DAY ([id number])[facility])[address] [place] [address] Potassium [Moles/Vol] 3.8 mmol/L Normal 3.5-5.1 [facility] Comment on above: Result Comment: [facility] potassium values may be up to 0.5 mmol/L lower than serum values. Performed By: #### L [id number] ####Brands Editor: GYPSY DAY ([id number])[facility] ([facility])[address] [place] [address] Protein [Mass/Vol] 4.9 g/dL Low 6.4-8.3 [facility] Comment on above: Performed By: #### L [id number] ####Brands Editor: GYPSY DAY ([id number])[facility])[address] [place] [address] Sodium [Moles/Vol] 138 mmol/L Normal 136-145 [facility] Comment on above: Performed By: #### L [id number] ####Brands Editor: GYPSY DAY ([id number])[facility])[address] [place] [address] Urea nitrogen [Mass/Vol] 9 mg/dL Normal 8-21 [facility] Comment on above: Performed By: #### L [id number] ####Brands Editor: GYPSY DAY ([id number])[facility])[address] [place] [address] Comprehensive metabolic 1998 panelon 10-13-2024 Albumin [Mass/Vol] 2.8 g/dL Low 3.5 - 5.0 g/dL [facility] ALP [Catalytic activity/Vol] 49 U/L 40 - 150 U/L [facility] ALT [Catalytic activity/Vol] 9 U/L NINF - 30 U/L [facility] Anion gap [Moles/Vol] 4 mmol/L 3 - 13 mmol/L [facility] AST [Catalytic activity/Vol] 14 U/L NINF - 34 U/L [facility] Bilirubin [Mass/Vol] 0.2 mg/dL NINF - 1.2 mg/dL [facility] Calcium [Mass/Vol] 7.9 mg/dL Low 8.4 - 10. 2 mg/dL [facility] Chloride [Moles/Vol] 110 mmol/L High 98 - 10 7 mmol/L [facility] CO2 [Moles/Vol] 24 mmol/L 22 - 29 mmol/L [facility] Creatinine [Mass/Vol] 0.6 mg/dL 0.57 - 1.11 mg/dL [facility] GFR/1.73 sq M.predicted (S/P/Bld) [Vol rate/Area] - PINF [facility] Comment on above: Calculation based on the Chronic Kidney Disease Epidemiology Collaboration (CKD-EPI) equation refit without adjustment for race Glucose [Mass/Vol] 96 mg/dL 74 - 100 mg/dL [facility] Interpretation and review of laboratory results Abnormal [facility] Potassium [Moles/Vol] 3.8 mmol/L 3.5 - 5.1 mmol/L [facility] Comment on above: Plasma potassium arsen ues may be up to 0.5 mmol/L lower than serum values. Protein [Mass/Vol] 4.9 g/dL Low 6.4 - 8.3 g/dL [facility] Sodium [Moles/Vol] 138 mmol/L 136 - 145 mmol/L [facility] Urea nitrogen [Mass/Vol] 9 mg/dL 8 - 21 mg/dL [facility] Guidance for paracentesis of Peritoneumon 10-13-2024 Insufficient fluid f or safe paracentesis. Report Dictated on Electronically Signed By: Yola Montiel MD Electronically Signed Date/Time: 10/13/2024 3:24 PM [facility] Patient Name: JOSE GAMEZ : 1995 Exam Date/Time: 10/13/2024 09:37 Procedure: [...] The procedure was terminated at this time. [facility] Keely Montiel MD - 10/13/2024 Patient Name: JOSE EDWARD : 1995 Exam Date/Time: 10/13/2024 09:37 Procedure: [...] paracentesis. Report Dictated on Electronically Signed By: Yola Montiel MD Electronically Signed Date/Time: 10/13/2024 3:24 PM EDT [facility] Radiology Study observation (narrative) [facility] Guidance for paracentesis of PeritoneumOrdered By: Keely Montiel on 10-13-2024 [facility] [employer] Work Phone: Progress Noteon 10-13-2024 Progress Note ---- -------- Attestation signed by Gypsy Pelayo MD at 10/13/2024 8:34 AM Hospital Care (Independent): I independently saw and evaluated the patient. I agree with the findings and plan of care as documented in the resident's note. Stable labs and patient without complaints except for bloating. Abd mildly, softly distended. Awaiting paracentesis today. 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 female , admitted for OHSS [...] Weight: 186 lb (84.4 kg) Height: 5' 2 (1.575 m) Intake/Output: Current Shift: No intake/output [...] 500 mg, 500 mg, Oral, BID, Jade Waldropk, DO, 500 mg at 10/12/241999 docusate sodium (Colace) capsule 100 mg, 100 mg, Oral, BID, Jade Waldropk, DO, 100 mg at 10/12/241999 famotidine (Pepcid) tablet 20 mg, 20 mg, Oral, BID, Dali Hall MD, 20 mg at 10/12/241999 lactated Ringer's infusion, 100 mL/hr, IntraVENous, Continuous, Jade Carmona, DO, Last Rate: 100 mL/hr at 10/13/24 0126, 100 mL/hr at 10/13/24 0126 naloxone (Narcan) injection 0.4 mg, 0.4 mg, IntraVENous, q5 min PRN, Barak Covarrubias MD ondansetron ODT (Zofran-ODT) disintegrating tablet 4 mg, 4 mg, Oral, q8h PRN, 4 mg at 10/12/24 1107 OR ondansetron (Zofran) injection 4 mg, 4 mg, IntraVENous, q6h PRN, Jade Waldropk, DO oxyCODONE (Roxicodone) immediate release tablet 5 mg, 5 mg, Oral, q6h PRN, Dali Hall MD, 5 mg at 10/12/24 1829 phenazopyridine (Pyridium) tablet 200 mg, 200 mg, Oral, BID, Jade Waldropk, DO, 200 mg at 10/12/241999 polyethylene glycol (PEG) 3350 (Miralax) packet 17 g, 17 g, Oral, Daily PRN, Jade Van Dijck, DO sodium chloride 0.9 % infusion, 5-250 mL/hr, IntraVENous, PRN, Jade Van Dijck, DO sodium chloride 0.9% (NS) flush 5-40 mL, 5-40 mL, IntraVENous, q12h, Jade Ballard Dijck, DO, 10 mL at 10/12/24 0400 sodium chloride 0.9% (NS) flush 5-40 mL, 5-40 mL, IntraVENous, PRN, Jade Peterjck, DO Diagnostics: No results found. Labs: Admission [...] s Final INR 10/12/2024 0.9 0.9 - 1 (more content not included)... Normal [facility] US GUIDED ABDOMINAL PARACENT ESISon 10-13-2024 US GUIDED ABDOMINAL PARACENTESIS Patient Name: JOSE EDWARD : 1995 Exam Date/Time: 10/13/2024 09:37 Procedure: [...] paracentesis. Report Dictated on Electronically Signed By: Yola Montiel MD Electronically Signed Date/Time: 10/13/2024 3:24 PM EDT Normal [facility] 30on 10-12-2024 30 Problem: Pain - Adul t Goal: Verbalizes/displays adequate comfort level or baseline comfort level Outcome: Progressing Problem: Safety - Adult Goal: Free from fall injury Outcome: Progressing Problem: Discharge Planning Goal: Discharge to home or other facility with appropriate resources Outcome: Progressing Problem: Chronic Conditions and Co-morbidities Goal: Patient's chronic conditions and co-morbidity symptoms are monitored and maintained or improved Outcome: Progressing Normal [facility] CBC (HEMOGRAM)on 10-12-2024 Erythrocyte distribution width (RBC) [Ratio] 13.2 % Normal 11.5-15.0 [facility] Comment on above: Performed By: #### L [id number] ####Brands Editor: GYPSY DAY ([id number])[facility])[address] [place] [address] Hematocrit (Bld) [Volume fraction] 30.9 % Low 35.0-47.0 [facility] Comment on above: Performed By: #### L [id number] ####Brands Editor: GYPSY DAY ([id number])[facility])[address] [place] [address] Hemoglobin (Bld) [Mass/Vol] 10.1 g/dL Low 11.7-16.0 [facility] Comment on above: Performed By: #### L [id number] ####Brands Editor: GYPSY DAY ([id number])[address] IPF 2 Normal [facility] Comment on above: Performed By: #### L [id number] ####Brands Editor: GYPSY DAY ([id number])[address] MCH (RBC) [Entitic mass] 29.0 pg Normal 26.0-34.0 [facility] Comment on above: Performed By: #### L [id number] ####Brands Editor: GYSPY DAY ([id number])[address] MCHC 32.7 % Normal 30.5-36.0 [facility] Comment on above: Performed By: #### L [id number] ####Brands Editor: GYPSY DAY ([id number])[address] MCV (RBC) [Entitic vol] 88.8 fL Normal 77.0-99.0 [facility] Comment on above: Performed By: #### L [id number] ####Brands Editor: GYPSY DAY ([id number])[facility] ([facility])[address] [place] [address] Platelet mean volume (Bld) [Entitic vol] 9.5 fL Normal 9.0-12.7 [facility] Comment on above: Performed By: #### L [id number] ####Brands Editor: GYPSY DAY ([id number])[facility])[address] [place] [address] Platelets (Bld) [#/Vol] 292 10*3/uL Normal 140-440 [facility] Comment on above: Performed By: #### L [id number] ####Brands Editor: GYPSY DAY ([id number])[facility])[address] [place] [address] RBC (Bld) [#/Vol] 3.48 10*6/uL Low 3.80-5.20 [facility] Comment on above: Performed By: #### L [id number] ####Brands Editor: GYPSY DAY ([id number])[facility] ([facility])[address] [place] [address] WBC (Bld) [#/Vol] 19.6 10*3/uL High 3.6-10.7 [facility] Comment on above: Performed By: #### L [id number] ####Brands Editor: GYPSY DAY ([id number])[facility])[address] [place] [address] CBC panel Auto (Bld)on 10-12 Erythrocyte distribution width (RBC) [Ratio] 13.2 % 11.5 - 15.0 % [facility] Hematocrit (Bld) [Volume fraction] 30.9 % Low 35.0 - 47.0 % [facility] Hemoglobin (Bld) [Mass/Vol] 10.1 g/dL Low 11.7 - 16.0 g/dL [facility] Interpretation and review of laboratory results Abnormal [facility] IPF 2 [facility] MCH (RBC) [Entitic mass] 29 pg 26.0 - 34.0 pg [facility] MCHC (RBC) [Mass/Vol] 32.7 % 30.5 - 36.0 % [facility] MCV (RBC) [Entitic vol] 88.8 fL 77.0 - 99.0 fL [facility] Platelet mean volume (Bld) [Entitic vol] 9.5 fL 9.0 - 12.7 fL [facility] Platelets (Bld) [#/Vol] 292 10*3/uL 140 - 440 10*3/uL [facility] RBC (Bld) [#/Vol] 3.48 10*6/uL Low 3.80 - 5.2 0 10*6/uL [facility] WBC (Bld) [#/Vol] 19.6 10*3/uL High 3.6 - 10.7 10*3/uL [facility] COMPREHENSIVE METABOLIC PANE Mahendra 10-12-2024 Albumin [Mass/Vol] 3.2 g/dL Low 3.5-5.0 [facility] Comment on above: Performed By: #### L [id number] #### Brands Editor: GYPSY DAY ([id number]) [facility]) [address] [place] [address] ALP [Catalytic activity/Vol] 54 U/L Normal 40-150 [facility] Comment on above: Performed By: #### L [id number] #### Brands Editor: GYPSY DAY ([id number]) [facility] ([facility]) [address] [place] [address] ALT [Catalytic activity/Vol] 11 U/L Normal <30 [facility] Comment on above: Performed By: #### L [id number] #### Brands Editor: GYPSY DAY ([id number]) [facility] ([facility]) [address] [place] [address] Anion gap [Moles/Vol] 5 mmol/L Normal 3-13 [facility] Comment on above: Performed By: #### L [id number] #### Brands Editor: GYPSY DAY ([id number]) [facility]) [address] [place] [address] AST [Catalytic activity/Vol] 16 U/L Normal <34 [facility] Comment on above: Performed By: #### L [id number] #### Brands Editor: GYPSY DAY ([id number]) [facility] ([facility]) [address] [place] [address] Bilirubin [Mass/Vol] 0.2 mg/dL Normal <1.2 [facility] Comment on above: Performed By: #### L AB17 #### Brands Editor: GYPSY DAY ([id number]) [facility] ([facility]) [address] [place] [address] Calcium [Mass/Vol] 8.2 mg/dL Low 8.4-10.2 [facility] Comment on above: Performed By: #### L [id number] #### Brands Editor: GYPSY DAY ([id number]) [facility] ([facility]) [address] [place] [address] Chloride [Moles/Vol] 104 mmol/L Normal 98-107 [facility] Comment on above: Performed By: #### L AB17 #### Brands Editor: GYPSY DAY ([id number]) [facility]) [address] [place] [address] CO2 [Moles/Vol] 24 mmol/L Normal 22-29 [facility] Comment on above: Performed By: #### L AB17 #### Brands Editor: GYPSY DAY ([id number]) [facility] ([facility]) [address] [place] [address] Creatinine [Mass/Vol] 0.56 mg/dL Low 0.57-1.11 [facility] Comment on above: Performed By: #### L AB17 #### Brands Editor: GYPSY DAY ([id number]) [facility] ([facility]) [address] [place] [address] GLOMERULAR FILTRATION RATE ML/MIN/1.73 SQ M.PREDICTED >90.0 Normal >60.0 [facility] Comment on above: Result Comment: Calc ulation based on the Chronic Kidney Disease Epidemiology Collaboration (CKD-EPI) equation refit without adjustment for race Performed By: #### L [id number] #### Brands Editor: GYPSY DAY ([id number]) [facility] ([facility]) [address] [place] [address] Glucose [Mass/Vol] 109 mg/dL High 74-100 [facility] Comment on above: Performed By: #### L [id number] #### Brands Editor: GYPSY DAY ([id number]) [facility] ([facility]) [address] [place] [address] Potassium [Moles/Vol] 3.6 mmol/L Normal 3.5-5.1 [facility] Comment on above: Result Comment: [facility] potassium values may be up to 0.5 mmol/L lower than serum values. Performed By: #### L AB17 #### Brands Editor: GYPSY DAY ([id number]) [facility] ([facility]) [address] [place] [address] Protein [Mass/Vol] 5.4 g/dL Low 6.4-8.3 [facility] Comment on above: Performed By: #### L [id number] #### Brands Editor: GYPSY DAY ([id number]) [facility] ([facility]) [address] [place] [address] Sodium [Moles/Vol] 133 mmol/L Low 136-145 [facility] Comment on above: Performed By: #### L [id number] #### Brands Editor: GYPSY DYA ([id number]) [facility] ([facility]) [address] [place] [address] Urea nitrogen [Mass/Vol] 9 mg/dL Normal 8-21 [facility] Comment on above: Performed By: #### L [id number] #### Brands Editor: GYPSY DAY ([id number]) [facility] ([facility]) [address] [place] [address] Comprehensive metabolic 1998 panelon 10-12-2024 Albumin [Mass/Vol] 3.2 g/dL Low 3.5 - 5.0 g/dL [facility] ALP [Catalytic activity/Vol] 54 U/L 40 - 150 U/L [facility] ALT [Catalytic activity/Vol] 11 U/L NINF - 30 U/L [facility] Anion gap [Moles/Vol] 5 mmol/L 3 - 13 mmol/L [facility] AST [Catalytic activity/Vol] 16 U/L NINF - 34 U/L [facility] Bilirubin [Mass/Vol] 0.2 mg/dL NINF - 1.2 mg/dL [facility] Calcium [Mass/Vol] 8.2 mg/dL Low 8.4 - 10. 2 mg/dL [facility] Chloride [Moles/Vol] 104 mmol/L 98 - 10 7 mmol/L [facility] CO2 [Moles/Vol] 24 mmol/L 22 - 29 mmol/L [facility] Creatinine [Mass/Vol] 0.56 mg/dL Low 0.57 - 1.11 mg/dL [facility] GFR/1.73 sq M.predicted (S/P/Bld) [Vol rate/Area] - PINF [facility] Comment on above: Calculation based on the Chronic Kidney Disease Epidemiology Collaboration (CKD-EPI) equation refit without adjustment for race Glucose [Mass/Vol] 109 mg/dL High 74 - 100 mg/dL [facility] Interpretation and review of laboratory results Abnormal [facility] Potassium [Moles/Vol] 3.6 mmol/L 3.5 - 5.1 mmol/L [facility] Comment on above: Plasma potassium arsen ues may be up to 0.5 mmol/L lower than serum values. Protein [Mass/Vol] 5.4 g/dL Low 6.4 - 8.3 g/dL [facility] Sodium [Moles/Vol] 133 mmol/L Low 136 - 145 mmol/L [facility] Urea nitrogen [Mass/Vol] 9 mg/dL 8 - 21 mg/dL [facility] Laboratory - Coagulationon 0 10-12-2024 aPTT Coag (PPP) [Time] 26.3 s 20.0 - 30.5 s [facility] INR Coag (PPP) [Relative time] 0.9 {INR} 0.9 - 1.1 [facility] Comment on above: Recommended Anticoag ulant Therapy: SEE BELOW ----- INR of 2.0 [...] therapy is used to prevent Myocardial Infarction PT Coag (Bld) [Time] 10.1 s 9.0 - 12.0 s [facility] No Panel Informationon 10-12 Interpretation and review of laboratory results Normal [facility] PROTIME AND APTTon aPTT Coag (Bld) [Time] 26.3 s Normal 20.0-30.5 [facility] Comment on above: Performed By: #### L [id number] ####Brands Editor: GYPSY DAY ([id number])[facility] ([facility])[address] [place] [address] INR Coag (PPP) [Relative time] 0.9 {INR} Normal 0.9-1.1 [facility] Comment on above: Result Comment: Dwight mmended Anticoagulant Therapy: SEE BELOW ----- INR of [...] therapy is used to prevent Myocardial Infarction Performed By: #### L [id number] ####Brands Editor: GYPSY DAY ([id number])[facility])[address] [place] [address] PT Coag (PPP) [Time] 10.1 s Normal 9.0-12.0 [facility] Comment on above: Performed By: #### L [id number] ####Brands Editor: GYPSY DAY ([id number])[facility] ([facility])[address] [place] [address] Absolute neutrophil countOrd ered By: Fern Marroquin on 10-11-2024 Neutrophils (Bld) [#/Vol] 19.6 10*3/uL High 2.0-7.7 [facility] Anion gap in Serum or Plasma Ordered By: Fern Marroquin on 10-11-2024 Anion gap [Moles/Vol] 12 mmol/L 5-15 [facility] BUN/creatinine ratioOrdered By: Remus Ungbraulio on 10-11-2024 Urea nitrogen/Creatinine [Mass ratio] 17.7 mg/mg 10- [facility] Bacteria LM.HPF (Urine sed) [#/Area]Ordered By: Remus Ungur on 10-11-2024 Urine Bacteria RARE /hpf None Seen [facility] Basic Metabolic Profile (BMP )on 10-11-2024 BUN/CRE 17.7 RATIO Normal - [facility] Comment on above: Performed By: #### L 500.2500, L100.0100, L700.6800 ####[facility] [id number] [place], [address] Calcium [Mass/Vol] 9.1 mg/dL Normal 7.6-11.0 [facility] Comment on above: Performed By: #### L 500.2500, L100.0100, L700.6800 ####[facility] [id number] [place], [address] Chloride [Moles/Vol] 102 mmol/L Normal 98-108 [facility] Comment on above: Performed By: #### L 500.2500, L100.0100, L700.6800 ####[facility] [id number] [place], [address] CO2 [Moles/Vol] 21.9 mmol/L Normal 21.0-32.0 [facility] Comment on above: Performed By: #### L 500.2500, L100.0100, L700.6800 ####[facility] [id number] [place], [address] Creatinine [Mass/Vol] 0.58 mg/dL Low 0.70-1.20 [facility] Comment on above: Performed By: #### L 500.2500, L100.0100, L700.6800 ####[facility] [address] [place], [address] ECRCL 147.18 ml/min Normal 50-250 [facility] Comment on above: Performed By: #### L 500.2500, L100.0100, L700.6800 ####[facility] [address] [place] [place], [address] GAP 12 Normal 5-15 [facility] Comment on above: Performed By: #### L 500.2500, L100.0100, L700.6800 ####[facility] [address] [place], [address] GFR/1.73 sq M.predicted among non-blacks MDRD (S/P/Bld) [Vol rate/Area] 127 mL/min/{1.73_m2} Normal >60 [facility] Comment on above: Result Comment: mL/m in/1.73m2 CKD-EPI Creatinine Equation (2020) Performed By: #### L 500.2500, L100.0100, L700.6800 ####[facility] [address] [place], [address] Glucose [Mass/Vol] 139 mg/dL High 70-99 [facility] Comment on above: Performed By: #### L 500.2500, L100.0100, L700.6800 ####[facility] [address] [place], [address] Potassium [Moles/Vol] 4.1 mmol/L Normal 3.3-5.1 [facility] Comment on above: Performed By: #### L 500.2500, L100.0100, L700.6800 ####[facility] [address] [place], [address] Sodium [Moles/Vol] 136 mmol/L Normal 133-145 [facility] Comment on above: Performed By: #### L 500.2500, L100.0100, L700.6800 ####[facility] [address] [place], [address] Urea nitrogen [Mass/Vol] 10 mg/dL Normal 4-19 [facility] Comment on above: Performed By: #### L 500.2500, L100.0100, L700.6800 ####[facility] [address] [place], [address] Basophil percentageOrdered B y: Fern Lopez on 10-11-2024 Basophils/100 WBC (Bld) 0.1 % 0-1 [facility] Beta HCG ( test) Ql Ordered By: Fern Lopez on 10-11-2024 Serum Test, Qualitative Negative [facility] Bilirubin Test strip Ql (U)O rdered By: Fern Zazuetabraulio on 10-11-2024 Bilirubin Ql (U) 1 mg/dL High Negative [facility] Comment on above: COLOR OF URINE MAY A FFECT DIPSTICK RESULTS. CBC W/Diff, Automatedon 10-01 Absolute Lymph 1.84 X10 3/uL Normal 0.83-4.51 [facility] Comment on above: Performed By: #### L 500.2500, L100.0100, L700.6800 ####[facility] [address] [facility] [place], [address] Absolute Neut 19.6 X10 3/uL High 2.0-7.7 [facility] Comment on above: Performed By: #### L 500.2500, L100.0100, L700.6800 ####[facility] [address] [place], [address] Basophils/100 WBC (Bld) 0.1 % Normal 0-1 [facility] Comment on above: Performed By: #### L 500.2500, L100.0100, L700.6800 ####[facility] [address] [place], [address] Eosinophils/100 WBC (Bld) 0.0 % Normal 0-5 [facility] Comment on above: Performed By: #### L 500.2500, L100.0100, L700.6800 ####[facility] [address] [place], [address] Erythrocyte distribution width (RBC) [Ratio] 12.9 % Normal 11.6-14.6 [facility] Comment on above: Performed By: #### L 500.2500, L100.0100, L700.6800 ####[facility] [address] [place], [address] Hematocrit (Bld) [Volume fraction] 34.0 % Low 37-47 [facility] Comment on above: Performed By: #### L 500.2500, L100.0100, L700.6800 ####[facility] [address] [place], [address] Hemoglobin (Bld) [Mass/Vol] 11.6 g/dL Low 12.0-15.0 [facility] Comment on above: Performed By: #### L 500.2500, L100.0100, L700.6800 ####[facility] [address] [place], [address] IG% 0.600 Normal 0.0-0.9 [facility] Comment on above: Result Comment: IG% - Immature Granulocytes (promyelocytes, myelocytes and metamyelocytes) > 1% indicates that a LEFT SHIFT is Present. Performed By: #### L 500.2500, L100.0100, L700.6800 ####[facility] [address] [place], [address] Lymphocytes/100 WBC (Bld) 8.2 % Low 19-41 [facility] Comment on above: Performed By: #### L 500.2500, L100.0100, L700.6800 ####[facility] [address] [place], [address] MCH (RBC) [Entitic mass] 30.1 pg Normal 27.0-32.0 [facility] Comment on above: Performed By: #### L 500.2500, L100.0100, L700.6800 ####[facility] [address] [place], [address] MCHC (RBC) [Mass/Vol] 34.1 g/dL Normal 32-36 [facility] Comment on above: Performed By: #### L 500.2500, L100.0100, L700.6800 ####[facility] [address] [place], [address] MCV (RBC) [Entitic vol] 88.3 fL Normal 81-99 [facility] Comment on above: Performed By: #### L 500.2500, L100.0100, L700.6800 ####[facility] [address] [place], [address] Monocytes/100 WBC (Bld) 4.0 % Normal 0-10 [facility] Comment on above: Performed By: #### L 500.2500, L100.0100, L700.6800 ####[facility] [address] [place], [address] Neutrophils/100 WBC (Bld) 87.1 % High 47-70 [facility] Comment on above: Performed By: #### L 500.2500, L100.0100, L700.6800 ####[facility] [address] [place], [address] Nucleated RBC (Bld) [#/Vol] 0 10*3/uL Normal 0-5 [facility] Comment on above: Performed By: #### L 500.2500, L100.0100, L700.6800 ####[facility] [address] [place], [address] Platelet mean volume (Bld) [Entitic vol] 9.2 fL Normal 6.2-12.0 [facility] Comment on above: Performed By: #### L 500.2500, L100.0100, L700.6800 ####[facility] [address] [place], [address] Platelets (Bld) [#/Vol] 321 10*3/uL Normal 150-450 [facility] Comment on above: Performed By: #### L 500.2500, L100.0100, L700.6800 ####[facility] [address] [place], [address] RBC (Bld) [#/Vol] 3.85 10*6/uL Low 4.2-5.4 [facility] Comment on above: Performed By: #### L 500.2500, L100.0100, L700.6800 ####[facility] [address] [place], [address] RDW SD 41.7 fl Normal 35.1-43.9 [facility] Comment on above: Performed By: #### L 500.2500, L100.0100, L700.6800 ####[facility] [address] [place], [address] WBC (Bld) [#/Vol] 22.5 10*3/uL High 4.4-11.0 [facility] Comment on above: Performed By: #### L 500.2500, L100.0100, L700.6800 ####[facility] [address] [place], [address] CTA Chst, Abd, Pel W and/or WOon 10-11-2024 CTA Chst, Abd, Pel W and/or WO [facility] Imaging Services [address] [place] [address] CTA Chst, Abd, Pel W and/or WO MR#: [id number] Acct: [id number] Name: JOSE EDWARD Rep #: [id number] : 1995 F 29 From: Daisha Hutchins nd, MD PCP: CHREYL Samano Status: REG ER Study: CTA Chst, Abd, Pel W and/or WO Date of Exam: 0 10/11/24 Exam# [id number] Ordering Dr: Fern Marroquin DO PROCEDURE: CTA CHST, ABD, PEL W AND/OR WO 10/11/2024 REASON FOR EXAM: CHEST, ABDOMEN PAIN AFTER EGG RETRIEVAL TODAY. Patient reports bladder puncture during procedure. TECHNIQUE: CTA imaging of the chest, abdomen and pelvis without and with intravenous contrast. Coronal and Sagittal reconstruction series were provided. 3D, 3D post processing, 3D reconstructions, Maximum intensity projection (MIPs) Volume rendering and Shaded surface rendering was provided. CONTRAST: Isovue 370 VOLUME: 100mL One or more dose reduction techniques were used (e.g., Automated exposure control, adjustment of the mA and/or kV according to patient size, use of iterative reconstruction technique). RADIATION DOSE SUMMARY: CTDlvol: 35 mGy DLP: 1200 mGycm COMPARISON: MRI pelvis 08/15/2024. FINDINGS: CTA CHEST: Hardware: None. Lymph nodes: No axillary, mediastinal or hilar lymphadenopathy. Heart and Vasculature: The heart is normal in size without pericardial effusion. Mild dilation of the main pulmonary artery, which can be seen with pulmonary hypertension. No traumatic thoracic aortic aneurysm or mediastinal hematoma. Lungs and Airways: The central airways are patent. Low lung volumes bilaterally. Bibasilar atelectasis. No suspicious pulmonary nodule. No pleural effusion or pneumothorax. Bones: No aggressive osseous lesions. CTA ABDOMEN/PELVIS: Liver: The liver is normal in size without arterially enhancing mass. No biliary ductal dilation. Gallbladder: No radiopaque stones within the gallbladder. Spleen: Normal size. Pancreas: Unremarkable. Adrenals: No adrenal mass. Kidneys: Tiny nonobstructing right lower pole renal calculus. No hydronephrosis. Bladder: Distended and unremarkable. Reproductive Organs: Markedly enlarged ovaries with numerous ovarian cysts. The uterus is compressed due to adjacent ovaries, however is grossly unremarkable. Bowel: Moderately distended stomach. The small and large bowel loops are normal in caliber. Moderate ascites throughout the abdomen and pelvis. No pneumoperitoneum. Normal appendix. Lymph nodes: Prominent mesenteric nodes, likely reactive. Vasculature: The abdominal aorta is normal in caliber. No traumatic abdominal aortic injury or retroperitoneal hematoma. The origins of the celiac, SMA and SHEYLA are widely patent. The single bilateral renal arteries are widely patent. The bilateral common iliac arteries are widely patent without aneurysmal dilation. Bones: No aggressive osseous lesions. CT/CTA Chst, Abd, Pel W and/or WO IMPRESSION: CTA chest: 1. No traumatic thoracic aortic aneurysm or mediastinal hematoma. 2. Ectasia of the main pulmonary artery, which can be seen with pulmonary hypertension. CTA abdomen/pelvis: 1. No traumatic abdominal aortic injury or retroperitoneal hematoma. 2. Markedly enlarged ovaries with numerous ovarian cysts and moderate volume ascites, compatible with ovarian hyperstimulation syndrome. Reading [facility] CC: Dr. Fern Marroquin DO; CHERYL Samano Barge Pilot: Signed Normal [facility] Carbon dioxide, total [Moles /volume] in Central venous bloodOrdered By: Fern Marroquin on 10-11-2024 CO2 [Moles/Vol] 21.9 mmol/L 21.0-32.0 [facility] Chloride assayOrdered By: Delma Marroquin on 10-11-2024 Chloride [Moles/Vol] 102 mmol/L 98-108 [facility] Emergency Department Summary on 10-11-2024 Emergency Department Summary [facility] Medical Records Department [address] [place] [address] Emergency Department Summary 10/11/24 MR#: [id number] Acct: [id number] Name: JOSE EDWARD Rep #: [id number] : 1995 29 From: Fern Marroquin DO PCP: CHERYL Samano Status:REG ER Location: ED HPI History of Present Illness Chief Complaint: Shortness of Breath Detail of Chief Complaint: Shortness of breath and abdominal pain Informant: patient Narrative Narrative: Patient presents to the emergency department complaint shortness of breath and abdominal pain that started this morning. Patient states that she had driven to [facility] this morning to have egg retrieval at a fertility clinic. She states that they went in through the vagina and they had to puncture her bladder to get some of the eggs. Patient complaining of hard time emptying her bladder. She complains of abdominal pain as well as pain in her chest with deep breath and feels short of breath. Patient denies any fever. Patient states that she was started on an antibiotic and given something for pain but it is not helping her pain. Patient has history of PCOS. No prior history of PE or DVT [facility] Medical History Abnormal uterine bleeding Conceived by in vitro fertilization Supervision of high-risk Decreased movement False labor before 37 completed weeks of gestation premature rupture of membranes (PPROM) with unknown onset of labor Genetic testing of female Wears contact lenses Anxiety Alcohol use Heartburn Vapes nicotine containing substance Endometrial polyp Abnormal uterine bleeding (AUB) Home Medications ???Medication ???Instructions ???Recorded ???Last Taken ???Type omeprazole 20 mg tablet,delayed 20 mg PO DAILY 10/03/23 02/16/24 0 8:00 History release 20 mg multivitamin no.47-iron fum 27 1 cap PO DAILY #30 caps 12/15/23 0 02/16/24 12:00 Rx mg-folate no.1 1 mg-dha 300 mg 1 cap capsule (PNV-DHA) blood sugar diagnostic (Blood #50 ea 02/26/24 Unknown Rx Glucose Test strips) blood-glucose meter #1 ea 02/26/24 Unknown Rx lancets 30 gauge (Droplet Lancets) #200 ea 02/26/24 Unknown Rx flash glucose scanning reader #1 ea 02/28/24 Unknown Rx (FreeStyle Lexi 2 [place]) flash glucose sensor (FreeStyle #1 ea 02/28/24 Unknown Rx Lexi 2 Sensor kit) PNV no.151-iron 27 mg-folic 800 1 cap PO DAILY 10/11/24 Unknown Hi story mcg-omega3 260 ex-wsr-kux-fish capsule ( Multi-DHA (with vitamin K)) cabergoline 0.5 mg tablet 0.5 mg PO DAILY 10/11/24 Unknown H istory cephalexin 500 mg capsule 500 mg PO BID 10/11/24 Unknown His tory cholecalciferol (vitamin D3) 50 2,000 unit PO DAILY 10/11/24 Unkno wn History mcg (2,000 unit) capsule (D3-1999) metformin 750 mg tablet,extended 750 mg PO DAILY 10/11/24 Unknown H istory release 24 hr phenazopyridine 200 mg tablet 200 mg PO BID 10/11/24 Unknown His tory (Pyridium) prednisone 10 mg tablet 10 mg PO BID 10/11/24 Unknown Hist ory Allergy/AdvReac Type Severity Reaction Status Date / Time Latex, Natural Rubber Allergy Intermediate Other Verified 10/11/24 20:55 azithromycin (From Zithromax) Allergy JOHN Verified 10/11/24 20:55 VIJI'S SYNDROME venlafaxine Allergy Other Verified 10/11/24 20:55 Family History Mother Diabetes Uncle Diabetes Grandmother Diabetes Surgical History [place] teeth extracted History of hysteroscopy Status post laparoscopy S/P D C (status post dilation and curettage) Hx of lumpectomy History of tonsillectomy and adenoidectomy Social History adopted: No household members: spouse number of children: 0 current occupational status: employed current occupation: [employer] current occupational exposures/hazards: No pets and animals: Yes (Avoid litterbox) pets and animals: cat(s) and dog(s) history of recent travel: Yes ([facility]) out of state: Yes out of country: No sexually active: Yes Smoking Status: Former smoker Electronic Cigarette Use: with nicotine alcohol intake: never substance use type: does not use well-balanced diet: daily or most days caffeine: No eating out: 1-3 times/week during the past year weight has: increased > 10 lbs what type of physical activity do you participate in: none jessica/yazdanism: Mandaen seatbelt use: always do you feel safe at home: Yes additional social history: - Rene- Chuck ROS ROS ED Review of Systems ROS Unobtainable: other Constitutional Constitutional ED: Reports lethargy; Denies chills, fever(s), sweats or weight loss Eyes Eyes: Denie (more content not included)... Normal [facility] Eosinophil percentageOrdered By: Fern Marroquin on 10-11-2024 Eosinophils/100 WBC (Bld) 0.0 % 0-5 [facility] Epithelial cells.squamous LM Ql (Urine sed)Ordered By: Fern Marroquin on 10-11-2024 Epithelial cells.squamous LM.HPF (Urine sed) [#/Area] 0 /[HPF] 5-10 [facility] Erythrocyte distribution wid th (RBC) [Ratio]Ordered By: Fern Marroquin on 10-11-2024 Erythrocyte distribution width (RBC) [Entitic vol] 41.7 fL 35.1-43.9 [facility] Erythrocyte distribution wid th ratioOrdered By: Fern Marroquin on 10-11-2024 Erythrocyte distribution width (RBC) [Ratio] 12.9 % 11.6-14.6 [facility] Estimation of creatinine rory aranceOrdered By: Fern Marroquin on 10-11-2024 Estimated Creatinine Clearance Calc 147.18 ml/min 50-250 [facility] GFR/1.73 sq M.predicted checo g non-blacks MDRD (S/P/Bld) [Vol rate/Area]Ordered By: Fern Marroquin on 10-11-2024 Estimated GFR (MDRD) Non-Af Amer 127 >60 [facility] Comment on above: mL/min/1.73m2 CKD-EP I Creatinine Equation (2020) Glucose Ql (U)Ordered By: Delma Marroquin on 10-11-2024 Urine Glucose (UA) Normal mg/dl Normal [facility] Hematocrit Auto (Bld) [Volum e fraction]Ordered By: Fern Marroquin on 10-11-2024 Hematocrit (Bld) [Volume fraction] 34.0 % Low 37-47 [facility] Hemoglobin measurementOrdere d By: Fern Marroquin on 10-11-2024 Hemoglobin (Bld) [Mass/Vol] 11.6 g/dL Low 12.0-15.0 [facility] Immature granulocytes/100 WB C Auto (Bld)Ordered By: Fern Marroquin on 10-11-2024 Immature granulocytes/100 WBC (Bld) 0.600 % 0.0-0.9 [facility] Comment on above: IG% - Immature Granu locytes (promyelocytes, myelocytes and metamyelocytes) > 1% indicates that a LEFT SHIFT is Present. Ketones Test strip Ql (U)Ord ered By: Fern Marroquin on 10-11-2024 Ketones Ql (U) Negative Negative [facility] Lymphocytes Auto (Unsp spec) [#/Vol]Ordered By: Fern Marroquin on 10-11-2024 Lymphocytes (Bld) [#/Vol] 1.84 10*3/uL 0.83-4.51 [facility] Lymphocytes/100 WBC Auto (Un sp spec)Ordered By: Fern Marroquin on 10-11-2024 Lymphocytes/100 WBC (Bld) 8.2 % Low 19-41 [facility] MCV (mean corpuscular volume ) determinationOrdered By: Fern Marroquin on 10-11-2024 MCV (RBC) [Entitic vol] 88.3 fL 81-99 [facility] Mean corpuscular hemoglobin (MCH) determinationOrdered By: Fern Marroquin on 10-11-2024 MCH (RBC) [Entitic mass] 30.1 pg 27.0-32.0 [facility] Mean corpuscular hemoglobin concentration (MCHC) determinationOrdered By: Fern Marroquin on 10-11-2024 MCHC (RBC) [Mass/Vol] 34.1 g/dL 32-36 [facility] Mean platelet volume determi nationOrdered By: Fern Marroquin on 10-11-2024 Platelet mean volume (Bld) [Entitic vol] 9.2 fL 6.2-12.0 [facility] Microscopic analysis of urin e for red blood cells (RBC)Ordered By: Fern Marroquin on 10-11-2024 Urine RBC 0 SEEN /hpf 0-5 [facility] Monocyte percentageOrdered B y: Fern Marroquin on 10-11-2024 Monocytes/100 WBC (Bld) 4.0 % 0-10 [facility] Mucus LM Ql (Urine sed)Order ed By: Fern Marroquin on 10-11-2024 Mucus Ql (Urine sed) 0 SEEN /hpf [facility] Neutrophil percentageOrdered By: Fern Marroquin on 10-11-2024 Neutrophils/100 WBC (Bld) 87.1 % High 47-70 [facility] Nitrite Test strip Ql (U)Ord ered By: Fern Marroquin on 10-11-2024 Nitrite Ql (U) Positive High Negative [facility] Nucleated red blood cell per centageOrdered By: Fern Marroquin on 10-11-2024 Nucleated RBC/100 WBC (Bld) [Ratio] 0 % 0-5 [facility] Platelet countOrdered By: Delma Marroquin on 10-11-2024 Platelets (Bld) [#/Vol] 321 10*3/uL 150-450 [facility] Potassium (Unsp spec) [Mass/ Vol]Ordered By: Fern Marroquin on 10-11-2024 Potassium [Moles/Vol] 4.1 mmol/L 3.3-5.1 [facility] ,Serum,hCG Quali.on 10-11-2024 HCG, SERUM QUAL Negative Normal [facility] Comment on above: Performed By: #### L 500.2500, L100.0100, L700.6800 ####[facility] [address] [place], [address] Protein Test strip Ql (U)Ord ered By: Fern Marroquin on 10-11-2024 Protein Ql (U) 30 mg/dl High Negative [facility] RBC Auto (Bld) [#/Vol]Ordere d By: Fern Marroquin on 10-11-2024 RBC (Bld) [#/Vol] 3.85 10*6/uL Low 4.2-5.4 [facility] Serum creatinine measurement (mass/volume)Ordered By: Fern Marroquin on 10-11-2024 Creatinine [Mass/Vol] 0.58 mg/dL Low 0.70-1.20 [facility] Serum glucose measurement (m ass/volume)Ordered By: Fern Marroquin on 10-11-2024 Glucose [Mass/Vol] 139 mg/dL High 70-99 [facility] Serum or plasma calcium shannon urement (mass/volume)Ordered By: Fern Marroquin on 10-11-2024 Calcium [Mass/Vol] 9.1 mg/dL 7.6-11.0 [facility] Serum or plasma urea nitroge n measurement (mass/volume)Ordered By: Fern Marroquin on 10-11-2024 Urea nitrogen [Mass/Vol] 10 mg/dL 4-19 [facility] Sodium levelOrdered By: Juliann Marroquin on 10-11-2024 Sodium [Moles/Vol] 136 mmol/L 133-145 [facility] Urinalysis, Completeon 10-11 BACTERIA RARE Normal None Seen [facility] Comment on above: Order Comment: EDWARD CTOR TO SPECIFY Performed By: #### L 400.0001 #### [facility] [address] [place], [address] EPI,SQUAMOUS 0 SEEN Normal 5-10 [facility] Comment on above: Order Comment: EDWARD CTOR TO SPECIFY Performed By: #### L 400.0001 #### [facility] [address] [place], [address] Mucus Ql (Urine sed) 0 SEEN Normal [facility] Comment on above: Order Comment: EDWARD CTOR TO SPECIFY Performed By: #### L 400.0001 #### [facility] [address] [place], [address] RBC 0 SEEN Normal 0-5 [facility] Comment on above: Order Comment: EDWARD CTOR TO SPECIFY Performed By: #### L 400.0001 #### [facility] [address] [place], [address] WBC 0 SEEN Normal 0-5 [facility] Comment on above: Order Comment: EDWARD CTOR TO SPECIFY Performed By: #### L 400.0001 #### [facility] [address] [place], [address] Urine blood detectionOrdered By: Remus Lopez on 10-11-2024 Urine Occult Blood 150 /ul High Negative [facility] Urine clarityOrdered By: Rem us Ungbraulio on 10-11-2024 Clarity (U) Clear Clear [facility] Urine color determinationOrd ered By: Fern Marroquin on 10-11-2024 Color (U) Yellow Yellow [facility] Urine leukocyte esterase det ection by dipstickOrdered By: Fern Marroquin on 10-11-2024 Leukocyte esterase Test strip Ql (U) Negative Negative [facility] Urine pHOrdered By: Fern flowerr on 10-11-2024 pH (U) 7.0 [pH] 5.0 - 8.0 [facility] Urine specific gravity measu rementOrdered By: Fern Zazuetabraulio on 10-11-2024 Specific gravity (U) [Rel density] 1.010 1.002-1.030 [facility] Urobilinogen Ql (U)Ordered B y: Fern Zazuetabraulio on 10-11-2024 Urobilinogen (U) [Mass/Vol] 4 mg/dL High Normal [facility] White blood cell (WBC) count Ordered By: Fern Zazuetabraulio on 10-11-2024 WBC (Bld) [#/Vol] 22.5 10*3/uL High 4.4-11.0 [facility] White blood cell countOrdere d By: Fern Zazuetabraulio on 10-11-2024 Urine WBC 0 SEEN /hpf 0-5 [facility] E2on 10-07-2024 Estradiol Level 1333.35 pg/mL Normal [facility] Comment on above: Result Comment: No te - New Reference Range in effect 20 Adult Female E2 Reference Ranges: Follicular phase 19.5 - 144.2 pg/mL Midcycle 63.9 - 356.7 pg/mL Luteal phase 55.8 - 214.2 pg/mL Post menopausal 0 - 33.2 pg/mL Performed By: #### P LATRICE, E2, LH #### [address] [address] LHon 10-07-2024 LH 3.9 mIU/mL Normal LUBA MILLAN Comment on above: Result Comment: No te - New Reference Range in effect 20 Adult Female LH Reference Ranges: Follicular phase 1.9 - 12.5 mIU/mL Midcycle phase 8.7 - 76.3 mIU/mL Luteal phase 0.5 - 16.9 mIU/mL Post menopausal 5.0 - 55.2 mIU/mL Performed By: #### P LATRICE, E2, LH #### [address] [address] PROGon 10-07-2024 Progesterone Level 0.9 ng/mL Normal VENICE MILLAN Comment on above: Result Comment: Adul t Female Progesterone Reference Ranges: Follicular phase <0.21 - 1.40 ng/mL Luteal phase 3.34 - 25.56 ng/mL Mid-Luteal phase 4.44 - 28.03 ng/mL Postmenopausal <0.21 - 0.73 ng/ml Female: First trimester 11.22 - 90.00 ng/ml Second trimester 25.55 - 89.40 ng/ml Third trimester 48.40 - 422.50 ng/ml Performed By: #### P LATRICE, E2, LH #### [facility] [address] [place] [address] HIV - WCHon 08-20-2024 HIV Non-Reactive Normal Nonreactive [facility] Comment on above: Performed By: #### L 509.8000, L3400.0005, L509.4005, L3890.6100, L3890.6005, L3890.6300 ####[facility] [address] [place], [address] Antimullerian Hormone, Serum on 08-19-2024 AMH, SERUM 6.59 ng/mL Normal . [facility] Comment on above: Result Comment: For assays employing antibodies, the possibility exists for interference by heterophile antibodies in the samples.1 1.Anthony Richard Interferences in Immunoassays - still a threat. Clin. Chem. 2000; 46: 1219-6535. This test was developed and its performance characteristics determined by [employer]. It has not been cleared or approved by the Food and Drug Administration. Reference Range: Females 26 - 30y: 1.03 - 11.10 Median 4.20 AMH concentrations of >= 1.06 ng/mL is correlated with a better response to ovarian stimulation, produced more retrievable oocytes and higher odds of live according to Gleicher et al. Fertility and Sterility. 2010: 94:3725-9018. The current AMH test method correlates with the study method with a slope of 0.94. Females at risk of ovarian hyperstimulation syndrome or polycystic ovarian syndrome (PCOS) may exhibit elevated serum AMH concentrations. AMH levels from PCOS patients may be 2 to 5 fold higher than age-appropriate reference interval values. Granulosa cell tumors of the ovary may secrete AMH along with other tumor markers. Elevated AMH is not specific for malignancy, and the assay should not be used exclusively to diagnose or exclude an AMH-secreting ovarian tumor. Performed By: #### M 100.3200, M100.1999 #### [facility] [address] [place], [place], [address] PROLACTIN 4465on 08-19-2024 PROLACTIN 21.9 ng/mL Normal 4.8-33.4 [facility] Comment on above: Result Comment: Perf ormed at: [employer] [address] [place] [id number] Academic Coach: Mik Jerez MD, Phone: [phone] Performed at: [address] [id number] Academic Coach: Heri Louis PhD, Phone: [phone] Performed By: #### M 1003200, M100.1999 #### [facility] [address] [place], [place], [address] L3400.0005on 08-16-2024 V ZOSTER IgG Reactive Normal Non Reactive [facility] Comment on above: Result Comment: Pl ease note reference interval change A Reactive result is considered evidence of immunity to VZV. Reactive indicates that VZV IgG was detected consistent with previous infection and/or vaccination. A Non Reactive result indicates that VZV IgG was not detected suggesting that immunity has not been acquired. Performed at: [address] [id number] Academic Coach: Heri Louis PhD, Phone: [phone] Performed By: #### L 509.8000, L3400.0005, L509.4005, L3890.6100, L3890.6005, L3890.6300 ####[facility] [address] [place], [place], [address] 19-ON-Dhrryvb DOrdered By: Ziggy Villareal on 08-15-2024 Vitamin D 25-Hydroxy 28.5 ng/mL [facility] Comment on above: Vitamin D 25(OH) Sta tus Range Deficiency <20 ng/mL (50nmol/L) Insufficiency 20 - 30 ng/mL (50 - 75 nmol/L) Sufficiency 30 - 100 ng/mL (75 - 250 nmol/L) Toxicity >100 ng/mL (>250 nmol/L) Albumin to globulin ratioOrd ered By: Julianna Villareal on 08-15-2024 Albumin/Globulin [Mass ratio] 1.3 {ratio} 0.9-2.4 [facility] Bilirubin, totalOrdered By: Julianna Villareal on 08-15-2024 Bilirubin [Mass/Vol] 0.50 mg/dL 0.20-1.00 [facility] Comment on above: For patients on eltr ombopag therapy, use of Dimension [place] TBIL is not recommended. Blood urea nitrogen (BUN)/cr eatinine ratioOrdered By: Julianna Villareal on 08-15-2024 Urea nitrogen/Creatinine [Mass ratio] 16.3 mg/mg 10-20 [facility] CBC-Complete Blood Cnt No Di ffon 08-15-2024 Erythrocyte distribution width (RBC) [Ratio] 12.9 % Normal 11.6-14.6 [facility] Comment on above: Performed By: #### M 100.3199, #### [facility] [address] [place], [address] Hematocrit (Bld) [Volume fraction] 44.4 % Normal 37-47 [facility] Comment on above: Performed By: #### M 100.0, #### [facility] [address] [place], [address] Hemoglobin (Bld) [Mass/Vol] 14.8 g/dL Normal 12.0-15.0 [facility] Comment on above: Performed By: #### M 100.3200, #### [facility] [address] [place], [address] MCH (RBC) [Entitic mass] 29.4 pg Normal 27.0-32.0 [facility] Comment on above: Performed By: #### M 100.3200, #### [facility] [address] [place], [address] MCHC (RBC) [Mass/Vol] 33.3 g/dL Normal 32-36 [facility] Comment on above: Performed By: #### M 100.3200, #### [facility] [address] [place], [address] MCV (RBC) [Entitic vol] 88.3 fL Normal 81-99 [facility] Comment on above: Performed By: #### M 100.3200, #### [facility] [address] [place], [address] Platelet mean volume (Bld) [Entitic vol] 9.7 fL Normal 6.2-12.0 [facility] Comment on above: Performed By: #### M 100.3200, #### [facility] [address] [place], [address] Platelets (Bld) [#/Vol] 304 10*3/uL Normal 150-450 [facility] Comment on above: Performed By: #### M 100.3200, #### [facility] [address] [place], [address] RBC (Bld) [#/Vol] 5.03 10*6/uL Normal 4.2-5.4 [facility] Comment on above: Performed By: #### M 100.3200, #### [facility] [address] [place], [address] RDW SD 41.4 fl Normal 35.1-43.9 [facility] Comment on above: Performed By: #### M 100.3200, #### [facility] [address] [place], [address] WBC (Bld) [#/Vol] 6.2 10*3/uL Normal 4.4-11.0 [facility] Comment on above: Performed By: #### M 100.3200, #### [facility] [address] [place], [address] Carbon dioxide measurementOr dered By: Julianna Villareal on 08-15-2024 CO2 [Moles/Vol] 25.0 mmol/L 21.0-32.0 [facility] Chloride measurementOrdered By: Julianna Villareal on 08-15-2024 Chloride [Moles/Vol] 106 mmol/L 98-107 [facility] Comprehensive Metabolic Prof ilon 08-15-2024 Albumin [Mass/Vol] 4.2 g/dL Normal 3.2-5.0 [facility] Comment on above: Performed By: #### M 100.3200, #### [facility] [address] [place], [address] Albumin/Globulin [Mass ratio] 1.3 {ratio} Normal 0.9-2.4 [facility] Comment on above: Performed By: #### M 100.3200, #### [facility] [address] [place], [address] ALK P 96 U/L Normal 45-117 [facility] Comment on above: Performed By: #### M 100.3200, #### [facility] [address] [place], [address] ALT [Catalytic activity/Vol] 22 U/L Normal 13-56 [facility] Comment on above: Performed By: #### M 100.3200, #### [facility] [address] [place], [address] AST [Catalytic activity/Vol] 15 U/L Normal 15-37 [facility] Comment on above: Performed By: #### M 100.3200, #### [facility] [address] [place], [address] Bilirubin [Mass/Vol] 0.50 mg/dL Normal 0.20-1.00 [facility] Comment on above: Result Comment: For patients on eltrombopag therapy, use of Dimension [place] TBIL is not recommended. Performed By: #### M 100.3200, #### [facility] [address] [place], [address] BUN/CRE 16.3 RATIO Normal 10-20 [facility] Comment on above: Performed By: #### M 100.3200, #### [facility] [address] [place], [address] CA,Total 9.5 mg/dL Normal 8.5-10.1 [facility] Comment on above: Performed By: #### M 100.3200, #### [facility] [address] [place], [address] Chloride [Moles/Vol] 106 mmol/L Normal 98-107 [facility] Comment on above: Performed By: #### M 100.3200, #### [facility] [address] [place], [address] CO2 [Moles/Vol] 25.0 mmol/L Normal 21.0-32.0 [facility] Comment on above: Performed By: #### M 100.3200, #### [facility] [address] [place], [address] Creatinine [Mass/Vol] 0.55 mg/dL Normal 0.55-1.02 [facility] Comment on above: Result Comment: The validity of the calculated GFR GFRAA in patients over 70 years has not been determined. Clinical correlation is essential. Performed By: #### M 100.3200, #### [facility] [address] [place], [address] EST GFR - AA 170 mL/min Normal >60 [facility] Comment on above: Result Comment: Afri can Russian GFR Calc Performed By: #### M 100.3200, #### [facility] [address] [place], [address] GAP 7 Normal 5-15 [facility] Comment on above: Performed By: #### M 100.3200, #### [facility] [address] [place], [address] GFR/1.73 sq M.predicted among non-blacks MDRD (S/P/Bld) [Vol rate/Area] 140 mL/min/{1.73_m2} Normal >60 [facility] Comment on above: Result Comment: Non- GFR Calc Performed By: #### M 100.3200, #### [facility] [address] [place], [address] Globulin (S) [Mass/Vol] 3.2 g/dL Normal 2.2-4.2 [facility] Comment on above: Performed By: #### M 100.3200, #### [facility] [address] [place], [address] Glucose [Mass/Vol] 98 mg/dL Normal 74-106 [facility] Comment on above: Performed By: #### M 100.3200, #### [facility] [address] [place], [address] Potassium [Moles/Vol] 3.8 mmol/L Normal 3.5-5.1 [facility] Comment on above: Performed By: #### M 100.3200, #### [facility] [address] [place], [address] Sodium [Moles/Vol] 138 mmol/L Normal 136-145 [facility] Comment on above: Performed By: #### M 100.3200, M1.1999 #### [facility] [address] [place], [address] T PROT 7.4 g/dL Normal 6.4-8.2 [facility] Comment on above: Performed By: #### M 100.3200, M1.1999 #### [facility] [address] [place], [address] Urea nitrogen [Mass/Vol] 9 mg/dL Normal 7-18 [facility] Comment on above: Performed By: #### M 100.3200, M100.1999 #### [facility] [address] [place], [address] Erythrocyte distribution wid th (RBC) [Ratio]Ordered By: Julianna Villareal on 08-15-2024 Erythrocyte distribution width (RBC) [Entitic vol] 41.4 fL 35.1-43.9 [facility] Erythrocyte distribution wid th ratioOrdered By: Julianna Villareal on 08-15-2024 Erythrocyte distribution width (RBC) [Ratio] 12.9 % 11.6-14.6 [facility] Estimated glomerular filtrat ion rate (GFR) AmericanOrdered By: Julianna Villareal on 08-15-2024 Estimated GFR (MDRD) Amer 170 mL/min >60 [facility] Comment on above: GFR Calc Flecainide [Mass/Vol]Ordered By: Julianna Villareal on 08-15-2024 Anti-Mullerian Hormone 6.59 ng/mL . [facility] Comment on above: For assays employing antibodies, the possibility exists forinterference by heterophile antibodies in the samples.11.Anthony Richard Interferences in Immunoassays - still a threat. Clin. Chem. 2000; 46: 5724-2408.This test was developed and its performance characteristicsdetermined by [employer]. It has not been cleared or approvedby the Food and Drug Administration.Reference Range:Females 26 - 30y: 1.03 - 11.10Median 4.20AMH concentrations of >= 1.06 ng/mL is correlated with abetter response to ovarian stimulation, produced moreretrievable oocytes and higher odds of live accordingto Scott. Fertility and Sterility. 2010:94:2364-7540. The current AMH test method correlates withthe study method with a slope of 0.94.Females at risk of ovarian hyperstimulation syndrome orpolycystic ovarian syndrome (PCOS) may exhibit elevatedserum AMH concentrations. AMH levels from PCOS patientsmay be 2 to 5 fold higher than age-appropriate referenceinterval values.Granulosa cell tumors of the ovary may secrete AMH alongwith other tumor markers. Elevated AMH is not specific formalignancy, and the assay should not be used exclusively todiagnose or exclude an AMH-secreting ovarian tumor. Glomerular filtration rate ( GFR) estimationOrdered By: Julianna Villareal on 08-15-2024 Estimated GFR (MDRD) Non-Af Amer 140 mL/min >60 [facility] Comment on above: Non- GFR Calc Glucose measurementOrdered B y: Julianna Villareal on 08-15-2024 Glucose [Mass/Vol] 98 mg/dL 74-106 [facility] HIV 1+2 Ab+HIV1 p24 Ag IA Ql Ordered By: Julianna Villareal on 08-15-2024 HIV (1&2) Antibody Non-Reactive Nonreactive [facility] Hematocrit Auto (Bld) [Volum e fraction]Ordered By: Julianna Villareal on 08-15-2024 Hematocrit (Bld) [Volume fraction] 44.4 % 37-47 [facility] Hemoglobin measurementOrdere d By: Julianna Villareal on 08-15-2024 Hemoglobin (Bld) [Mass/Vol] 14.8 g/dL 12.0-15.0 [facility] Hepatitis B Surface Antigeno n 08-15-2024 HEP B Surf Ag Non-Reactive Normal Nonreactive [facility] Comment on above: Performed By: #### M 100.3200, M100.1999 #### [facility] [place], [address] Hepatitis B surface antigen detectionOrdered By: Julianna Villareal on 08-15-2024 Hepatitis B Surface Antigen Non-Reactive Nonreactive [facility] Hepatitis C Antibodyon 08-15 Hepatitis C AB Non-Reactive Normal Nonreactive [facility] Comment on above: Result Comment: Non Reactive: < 0.8 Equivocal: >/= 0.8 to < 1.0 Reactive: >/= 1.0 The [facility] requires that a reactive/equivocal HCV antibody result be sent out for confirmation. HCV Quant by PCR testing. Performed By: #### L 509.8000, L3400.0005, L509.4005, L3890.6100, L3890.6005, L3890.6300 ####[facility] [address] [facility] [place], [place], [id number] Hepatitis C virus antibody a ssayOrdered By: Julianna Villareal on 08-15-2024 Hepatitis C Antibody Non-Reactive Nonreactive [facility] Comment on above: Non Reactive: < 0.8 Equivocal: >/= 0.8 to < 1.0 Reactive: >/= 1.0The [facility] requires that a reactive/equivocal HCV antibody result be sent out for confirmation. HCV Quant by PCR testing. L509.8000on 08-15-2024 Syphilis Abs Non-Reactive Normal [facility] Comment on above: Performed By: #### M 100.3200, M100.2000 #### [facility] [address] [facility] [facility] [place], [address] Laboratory - Chemistry and C hemistry - challengeOrdered By: Julianna Villareal on 08-15-2024 AST [Catalytic activity/Vol] 15 U/L 15-37 [facility] MCV (mean corpuscular volume ) determinationOrdered By: Julianna Villareal on 08-15-2024 MCV (RBC) [Entitic vol] 88.3 fL 81-99 [facility] Mean corpuscular hemoglobin (MCH) determinationOrdered By: Julianna Villareal on 08-15-2024 MCH (RBC) [Entitic mass] 29.4 pg 27.0-32.0 [facility] Mean corpuscular hemoglobin concentration (MCHC) determinationOrdered By: Julianna Villareal on 08-15-2024 MCHC (RBC) [Mass/Vol] 33.3 g/dL 32-36 [facility] Mean platelet volume determi nationOrdered By: Julianna Villareal on 08-15-2024 Platelet mean volume (Bld) [Entitic vol] 9.7 fL 6.2-12.0 [facility] Pelvis W/WO Contraston 08-15 Pelvis W/WO Contrast [facility] [address] [place] [address] Pelvis W/WO Contrast MR#: [id number] Acct: [id number] Name: JOSE EDWARD Rep #: [id number] : 1995 F 28 From: Rekha Sharpe i, DO PCP: CHERYL Samano Status: REG CLI Study: Pelvis W/WO Contrast Date of Exam: 08/15/24 Exam# [id number] Ordering Dr: Julianna Newman DO PROCEDURE: MRI of the pelvis without and with intravenous contrast. REASON FOR EXAM: Uterine fibroid, preoperative. TECHNIQUE: Multiplanar, multisequence MRI images of the pelvis were obtained without and with intravenous contrast. COMPARISON: None available FINDINGS: Included osseous structures of the pelvis appear intact. No focal abnormality of the urinary bladder. The included lower bowel segments show no specific abnormality. The origins of the hamstring complexes are intact. No gross pelvic mass or adenopathy. There are bilateral adnexal follicles, the largest posteriorly on the right at 2.2 cm. No dominant concerning adnexal mass or free pelvic fluid. No discrete uterine myometrial or cervical mass. There is some fluid signal in the central endometrial canal, not unexpected for age. Trace amount of free pelvic fluid, likely physiologic in this young patient. MRI/Pelvis W/WO Contrast IMPRESSION: No dominant uterine or adnexal mass demonstrated. No discrete mass of the cervix is demonstrated. Bilateral ovarian follicles, the largest posteriorly on the right at 2.2 cm. No pelvic adenopathy Trace amount of free pelvic fluid, likely physiologic in this young patient. Reading Location: [facility] CC: Dr. Julianna Newman DO; CHERYL Samano Barge Pilot: Signed Normal [facility] Platelet countOrdered By: Ayan Villareal on 08-15-2024 Platelets (Bld) [#/Vol] 304 10*3/uL 150-450 [facility] Potassium measurementOrdered By: Julianna Villareal on 08-15-2024 Potassium [Moles/Vol] 3.8 mmol/L 3.5-5.1 [facility] Prolactin [Mass/Vol]Ordered By: Julianna Villareal on 08-15-2024 Prolactin 21.9 ng/mL 4.8-33.4 [facility] Comment on above: Performed at: [facility] [address] [id number] Director: Mik Jerez MD, Phone: [phone] at: [facility] [id number] Director: Heri Louis PhD, Phone: [phone] RBC Auto (Bld) [#/Vol]Ordere d By: Julianna Villareal on 08-15-2024 RBC (Bld) [#/Vol] 5.03 10*6/uL 4.2-5.4 [facility] Rubella IgGon 08-15-2024 Rubella IgG Reactive Normal Nonreactive [facility] Comment on above: Result Comment: Anti body Results Interpretation of Immune Status Non Reactive Presumed Non-Immune Equivocal Equivocal Reactive Presumed Immune Performed By: #### M 100.3200, M100.2000 #### [facility] [address] [place], [address] Rubella immune status IgGOrd ered By: Julianna Villareal on 08-15-2024 Rubella IgG Antibody Reactive Nonreactive [facility] Comment on above: Antibody Results Int erpretation of Immune Status Non Reactive Presumed Non-Immune Equivocal Equivocal Reactive Presumed Immune Serum anion gap measurementO rdered By: Julianna Villareal on 08-15-2024 Anion gap [Moles/Vol] 7 mmol/L 5-15 [facility] Serum globulin measurementOr dered By: Julianna Villareal on 08-15-2024 Globulin (S) [Mass/Vol] 3.2 g/dL 2.2-4.2 [facility] Serum or plasma alanine eric otransferase (ALT) measurementOrdered By: Julianna Villareal on 08-15-2024 ALT [Catalytic activity/Vol] 22 U/L 13-56 [facility] Serum or plasma albumin shannon urement (mass/volume)Ordered By: Julianna Villareal on 08-15-2024 Albumin [Mass/Vol] 4.2 g/dL 3.2-5.0 [facility] Serum or plasma alkaline meredith sphatase measurementOrdered By: Julianna Villareal on 08-15-2024 ALP [Catalytic activity/Vol] 96 U/L 45-117 [facility] Serum or plasma calcium shannon urement (mass/volume)Ordered By: Julianna Villareal on 08-15-2024 Calcium [Mass/Vol] 9.5 mg/dL 8.5-10.1 [facility] Serum or plasma creatinine m easurement (mass/volume)Ordered By: Julianna Villareal on 08-15-2024 Creatinine [Mass/Vol] 0.55 mg/dL 0.55-1.02 [facility] Comment on above: The validity of the calculated GFR & GFRAA in patients over 70 years has not been determined. Clinical correlation is essential. Serum or plasma urea nitroge n measurement (mass/volume)Ordered By: Julianna Villareal on 08-15-2024 Urea nitrogen [Mass/Vol] 9 mg/dL 7-18 [facility] Sodium levelOrdered By: Bernadine Villareal on 08-15-2024 Sodium [Moles/Vol] 138 mmol/L 136-145 [facility] Testosterone, Serum Totalon 08-15-2024 Testosterone [Mass/Vol] 32.20 ng/dL Normal [facility] Comment on above: Result Comment: CENT RAL 90% REFERENCE RANGES MALE AGE <50 197.44 - 669.58 ng/dL MALE AGE > or = 50 187.72 - 684.19 ng/dL FEMALE AGE <50 8.38 - 35.01 ng/dL FEMALE AGE > or = 50 <7.00 - 35.92 ng/dL Effective as of 01/26/21 Performed By: #### M 100.3200, M1 #### [facility] [address] [place], [place], [id number] Testosterone, totalOrdered B y: Julianna Villareal on 08-15-2024 Testosterone [Mass/Vol] 32.20 ng/dL [facility] Comment on above: CENTRAL 90% REFERENC E RANGES MALE AGE <50 197.44 - 669.58 ng/dL MALE AGE > or = 50 187.72 - 684.19 ng/dL FEMALE AGE <50 8.38 - 35.01 ng/dL FEMALE AGE > or = 50 <7.00 - 35.92 ng/dL Effective as of 01/26/21 Total proteinOrdered By: Juliane Villareal on 08-15-2024 Protein [Mass/Vol] 7.4 g/dL 6.4-8.2 [facility] Treponema sp Ab Ql (S)Ordere d By: Julianna Villareal on 08-15-2024 Syphilis Total Antibody Non-Reactive [facility] Type AND Screenon 08-15-2024 Ab SCREEN GEL Negative Normal [facility] Comment on above: Order Comment: PN Performed By: #### M 100.3200, M100.1999 #### [facility] [address] [place], [place], [id number] Varicella-zoster virus IgG a ntibody assayOrdered By: Julianna Villareal on 08-15-2024 Varicella-Zoster IgG Antibody Reactive Non Reactive [facility] Comment on above: Please note refere nce interval changeA Reactive result is considered evidence of immunity toVZV. Reactive indicates that VZV IgG was detectedconsistent with previous infection and/or vaccination.A Non Reactive result indicates that VZV IgG was notdetected suggesting that immunity has not been acquired.Performed at: [facility] [id number] Director: Heri Louis PhD, Phone: [phone] Vitamin D,25 Hydroxyon 08-15 Vitamin D 25-OH 28.5 ng/mL Normal [facility] Comment on above: Result Comment: Talisha min D 25(OH) Status Range Deficiency <20 ng/mL (50nmol/L) Insufficiency 20 - 30 ng/mL (50 - 75 nmol/L) Sufficiency 30 - 100 ng/mL (75 - 250 nmol/L) Toxicity >100 ng/mL (>250 nmol/L) Performed By: #### M 100.3200, .1999 #### [facility] [address] [place], [address] White blood cell (WBC) count Ordered By: Julianna Villareal on 08-15-2024 WBC (Bld) [#/Vol] 6.2 10*3/uL 4.4-11.0 [facility] Genital Culture Comprehensiv lawanda 06-20-2024 VAC Reason for Exam: vag inal discharge Normal vaginal ese isolated. No yeast, Gardnerella, Neisseria or beta-hemolytic Streptococcus isolated. Normal [facility] Comment on above: Performed By: #### M 100.3200, #### [facility] [address] [place], [place], [id number] Genital cultureOrdered By: Herberth Sampson on 06-19-2024 Genital Culture Neisseria or beta-hemolytic Streptococcus isolated. [facility] Gram Stainon 06-19-2024 GS Reason for Exam: vag inal discharge Gram Stain 4+ Gram positive rods 2+ Gram variable carlos 1+ White Blood Cells Clue Cells 4+ Gram negative rods Score = 6 Interpretation: 0-3 Normal, 4-6 Intermediate, 7-10 Positive BV Normal [facility] Comment on above: Performed By: #### M 100.3200, M1 #### [facility] [address] [place], [place], [id number] Gram stainOrdered By: Lilly Sampson on 06-19-2024 Microscopic observation Gram stain Nom (Unsp spec) [facility] Director Meetings Office Visit Reporton 06-19-2024 Director Meetings Office Visit Report Jacey [facility] [address] [place] [address], [address] [place] [address] OFFICE VISIT Date of Service: 06/19/24 MR#: [id number] Acct: [id number] Name: JOSE EDWARD Rep #: [id number] : 1995 Provider: AMY Cage Age/Sex: 28/F [place] [facility] [place]: Signed Intake Vital Signs 03/06/24 13:40 06/19/24 09:41 Height 5 ft 2 in 5 ft 2 in Weight: 176 lb BMI 32.1 BP 119/79 Intake Visit Reasons: painful intercourse Chief Complaint: painful intercourse 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 Allergies Latex, Natural Rubber Allergy (Intermediate, Verified 06/19/24 09:40) Other azithromycin (From Zithromax) Allergy (Verified 06/19/24 09:40) JOHN VIJI[employer] SYN[employer]OME venlafaxine Allergy (Verified 06/19/24 09:40) Other Medications ???Medication ???Instructions ???Recorded ???Confirmed ???Type omeprazole 20 mg tablet,delayed 20 mg PO DAILY 10/03/23 06/19/24 History release multivitamin no.47-iron fum 27 1 cap PO DAILY #30 caps 12/15/23 06/19/24 Rx mg-folate no.1 1 mg-dha 300 mg capsule (PNV-DHA) blood sugar diagnostic (Blood #50 ea 02/26/24 03/06/24 Rx Glucose Test strips) blood-glucose meter #1 ea 02/26/24 03/06/24 Rx lancets 30 gauge (Droplet Lancets) #200 02/26/24 03/06/24 Rx flash glucose scanning reader #1 02/28/24 03/06/24 Rx (FreeStyle Lexi 2 [place]) flash glucose sensor (FreeStyle #1 02/28/24 03/06/24 Rx Lexi 2 Sensor kit) sertraline 25 mg tablet 25 mg PO QDAY 06/19/24 06/19/24 History Is last menstrual period known: No Post menopausal: No Patient : No : No Control Method: none PFSH Medical History Abnormal uterine bleeding Conceived by in vitro fertilization Supervision of high-risk Decreased movement False labor before 37 completed weeks of gestation premature rupture of membranes (PPROM) with unknown onset of labor Genetic testing of female Wears contact lenses Anxiety Alcohol use Heartburn Vapes nicotine containing substance Endometrial polyp Abnormal uterine bleeding (AUB) Surgical History [place] teeth extracted History of hysteroscopy Status post laparoscopy S/P D C (status post dilation and curettage) Hx of lumpectomy History of tonsillectomy and adenoidectomy Family History Mother Diabetes Uncle Diabetes Grandmother Diabetes Social History adopted: No household members: spouse number of children: 0 current occupational status: employed current occupation: [employer] current occupational exposures/hazards: No pets and animals: Yes (Avoid litterbox) pets and animals: cat(s) and dog(s) history of recent travel: Yes ([facility]) out of state: Yes out of country: No sexually active: Yes Smoking Status: Former smoker Electronic Cigarette Use: with nicotine alcohol intake: never substance use type: does not use well-balanced diet: daily or most days caffeine: No eating out: 1-3 times/week during the past year weight has: increased > 10 lbs what type of physical activity do you participate in: none jessica/yazdanism: Mandaen seatbelt use: always do you feel safe at home: Yes additional social history: - Andrea Woods ANTONELLA painful intercourse Details: JOSE EDWARD is a 28 year old who presents for painful intercourse. She reports she feels sore during and raw after intercourse. She feels pain with insertion and then penetration soreness as well. She reports no vaginal odor, discharge, fever, or chills. She reports no bleeding with intercourse. She is not currently however was previously. Stopped about 1 month ago. Reports intercourse was very painful the first time they tried after and since then has not gotten better. Pain and discomfort is only during intercourse. Female Reproductive History Questions: sexually active: Yes (condoms) History 3 Elective abortions Hx Para 1 Spontaneous abortions 2 Hx # Term Pregnancies Ectopic pregnancies Hx # Pregnancies 1 Multiple births # of living children 1 Past Pregnancies Del. Date Name GA/Weeks Outcome Route Bth Weight Infant Gen Labor Lgth Anesthesia Del Locatn Provider FOB 01/15/18 7 spontaneous 08/05/23 chemical 5 03/14/24 Josue 30 live - 3lbs 6oz Male spinal [facility] Delivery Date: 03/14/24 Last Updated by: Makenzie Montesinos RN See problem list for complications ROS Const ROS Unobtainable: All systems reviewed are unremarkable except as noted i (more content not included)... Normal [facility] Progress Noteon 05-14-2024 Carpenters Supervisor Authentication Interface Message Text Visit This is a telemedicine video visit requested by the patient/guardian that was performed with the patient's location at home and the provider's location at office. Subjective: Jose Edward is a 28 y.o. female who presents [...] Support and reassurance given. Discussed meeting with [facility] and pt has appt via telehealth [...] Precautions reviewed Pt to follow up with [facility] as scheduled The total time spent on patient care today 05/14/2024 was 20 minutes. -10 minutes direct patient care -10 minutes chart review and documentation Normal [facility] Progress Noteon 04-25-2024 Carpenters Supervisor Authentication Interface Message Text Visit Subjective: Jose Edward is a 28 y.o. female who presents [...] and updated as appropriate. She is unaccompanied. Jose denies any cramping, contractions, vaginal bleeding, unusual [...] gtt completed WNL 3. Follow up with PAYROLL REPRESENTATIVE as scheduled for routine well woman care 4. Discussed precon consult with future with MFM if desired The total time spent on patient care today 04/25/2024 was 30 minutes. -15 minutes direct patient care -15 minutes chart review and documentation Normal [facility] GTT 2 HOURon 04-10-2024 Glucose [Mass/Vol] 101 mg/dL 49 - PINF mg/dL [facility] Comment on above: Criteria for Diagnos is of Diabetes (2HR Challenge): Fasting specimen (No caloric intake for at least 8 hours.) <100 mg/dL Normal 100-125 mg/dL Increased Risk for Diabetes >125 mg/dL Diagnostic for Diabetes 2 Hour Specimen (Post glucose administration.) < or =139 mg/dL Normal 140-199 mg/dL Increased Risk for Diabetes > or =200 mg/dL Diagnostic for Diabetes Interpretation and review of laboratory results Normal [facility] Glucose, 2 Hour GTT 101 mg/dL Normal >49-<140 [facility] Comment on above: Order Comment: Relea se to patient->Automatic Result Comment: Crit luann for Diagnosis of Diabetes (2HR Challenge): Fasting specimen (No caloric intake for at least 8 hours.) <100 mg/dL Normal 100-125 mg/dL Increased Risk for Diabetes >125 mg/dL Diagnostic for Diabetes 2 Hour Specimen (Post glucose administration.) < or =139 mg/dL Normal 140-199 mg/dL Increased Risk for Diabetes > or =200 mg/dL Diagnostic for Diabetes Performed By: #### G TT 2 HOUR #### JULIANNA Mack ([id number]) [facility] ([facility]) [address] GTT FASTINGon 04-10-2024 Glucose [Mass/Vol] 86 mg/dL Normal >49-<100 [facility] Comment on above: Order Comment: Relea se to patient->Automatic Result Comment: Veri fied By: [id number] Performed By: #### G TT FASTING #### JULIANNA RAYNA W ([id number]) [facility] ([facility]) [address] GTT FastingOrdered By: Backg round Lab on 04-10-2024 Glucose post fast [Mass/Vol] 86 mg/dL 49 - PINF mg/dL [facility] Comment on above: Verified By: [id number] Interpretation and review of laboratory results Normal [facility] Progress Noteon 03-28-2024 Carpenters Supervisor Authentication Interface Message Text EXAM SUMMARY Jose presents for 2 week postop check. She delivered at 30w5d due to PPROM, labor and breech presentation. Delivery via LTCD with Dr. Gordillo. 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 care with [facility] in [place]. Baby boy, doing well in the NICU main campus. Pumping breast milk. No concerns with . No breast complaints. Normal urination and bowel movements. Has not had intercourse since delivery. Baby boy, Josue, doing well in main campus NICU. SUBJECTIVE: Patient Active Problem List Diagnosis Gestational diabetes PCOS (polycystic ovarian syndrome) Current Outpatient Medications Medication Sig Dispense Refill ibuprofen (MOTRIN) 600 MG tablet Take 1 Tablet (600 mg) by mouth every 6 hours omeprazole (PRILOSEC) 20 MG capsule Take 1 Capsule (20 mg) by mouth daily [id number] PO daily No current facility-administered medications for this visit. Past Medical History: Diagnosis Date Female infertility unexplained Gestational diabetes PCOS (polycystic ovarian syndrome) Past Surgical History: Procedure Laterality Date SECTION, LOW TRANSVERSE 03/14/2024 History reviewed. No pertinent family history. Social History Tobacco Use Smoking status: Never Smokeless tobacco: Never Substance Use Topics Alcohol use: Not Currently Drug use: Never Social History Social History Narrative Not on file Ms. Edward is a 28 y.o. who is now 2 weeks . OB History 3 Para 1 Term 0 1 AB 2 Living 1 SAB 2 IAB 0 Ectopic 0 Multiple 0 Live Births 1 Method of delivery: primary section She is breast-feeding and is not experiencing problems. complications: none, gestational hypertension, premature delivery, and PCOS. She is feeling well. She currently uses abstinence for contraception. She plans to use condoms for contraception. OBJECTIVE: Physical Exam: AAOx3, NAD Resp effort normal Incision well healing, some Dermabond present, no erythema, non tender to palpation ASSESSMENT: Normal 2 week post-op incision check PLAN: Contraceptive counseling for abstinence x 4-6 weeks and condoms when sexual activity resumes. exam in 4 weeks, recommend 2 hr gtt at that time. Recommend 1 year from CD to conception for uterine healing and reducing the risk of recurrent . Discussed vaginal progesterone and cervical length screening with future . Chart review and preparation: 15 minutes. Face to face: 10 minutes. Documentation and care coordination: 10 minutes. Total time spent on patient care today: 35 minutes. Normal [facility] 42on 03-17-2024 42 Check in with mom, pumping for 30 5/7 week in NICU. Mom is pumping 15cc per session. Observed pump session and resized her flanges to 22.5mm. Mom was given Spectra pump from [facility] technical marketing consultant. Answer mom's questions. Discharge today. Normal [facility] - Chemistry and C hemistry - challengeon 03-17-2024 Glucose [Mass/Vol] 82 mg/dL 70 - 100 mg/dL [facility] No Panel Informationon 03-17 Interpretation and review of laboratory results Normal [facility] Performed by: [facility], [address] [place] [address] CLIA ID: [id number] [facility] Nursing Noteon 03-17-2024 Nursing Note Mom discharged mom i n good condition with all belongings to a private residence, accompanied by . All discharge instructions reviewed with patient who verbalizes understanding and denies further questions.Mom walked out at 1840 Normal [facility] Progress Noteon 03-17-2024 Progress Note ---- -------- Attestation signed by Wendi Aguilar MD at 03/17/2024 11:06 AM Hospital Care (Independent): I independently saw and evaluated the patient. I agree with the findings and plan of care as documented in the resident's note. POD#3 from [facility] doing well. Meeting milestones. VSS. Ready for DC. They live 1.75 hours away so will stay in NICU and [facility] when a spot opens. Has a breat pump. Declines PPBC. Visit at our office in 1-2 weeks and 6 week visit with us or regular OBGYN. DC teaching done. Will need 2 hour gtt at 6 weeks. The total time spent on patient discharge today was 25 minutes. -10 minutes of the visit face to face patient care for counseling/coordination of care -15 minutes chart review and documentation -------- Note- POST OPERATIVE DAY # 3 Jose Edward is a 28 y.o. who was seen & examined today. Her was complicated by: Patient Active Problem List Diagnosis Anhydramnios in third trimester, single or unspecified fetus Today she is doing well without any chief complaint. Her lochia is light. She is ambulating well. Flatus present. Bowel movement absent. Voiding spontaneously . She is tolerating solids. Pain is controlled. She denies any headache, changes in vision, SOB, RUQ pain, fevers, chills, nausea, or vomiting. Vital Signs: Vitals: 03/15/24 0803 03/15/24 2100 03/16/24 0849 03/16/24 2018 BP: 110/68 123/86 131/89 118/80 BP Location: Right arm Right arm Patient Position: Sitting Sitting Pulse: 70 76 88 76 Resp: 16 16 16 16 Temp: 36.6 ?C (97.9 ?F) 36.3 ?C (97.4 ?F) 36.7 ?C (98 ?F) 36.7 ?C (98.1 ?F) TempSrc: Temporal Temporal Temporal Temporal SpO2: 98% 98% 97% 98% Weight: Height: Urine Input & Output last 24hrs: No intake or output data in the 24 hours ending 03/17/24 0548 Physical Exam: General appearance: alert, well appearing, in no apparent distress Abdomen : benign non-tender, without masses or organomegaly palpable Extremities: no redness or tenderness in the calves or thighs, no edema Neurologic: alert, oriented, normal speech, no focal findings or movement disorder noted Uterus : normal size, well involuted, firm, non-tender Incision: Dermabond in place overlying incision that is well healing and well approximated without drainage or surrounding erythema Labs: Lab Results Component Value Date WBC 8.7 03/13/2024 HGB 12.6 03/15/2024 HCT 38.4 03/13/2024 MCV 88.1 03/13/2024 PLT 282 03/13/2024 O Antibody Screen: No results found for: LABANTI No results found for: RUBELLAIGG LABOR DELIVERY ??? SCD's ONLY (labor through ambulation) SCD's PLUS Prophylactic Anticoagulation until discharge SCD's PLUS Prophylactic Anticoagulation for 6 weeks SCD's PLUS Therapeutic Anticoagulation for 6 weeks Vaginal Delivery [] BMI ? 40 kg/m2 Delivery All patients Vaginal Delivery [] BMI ? 40 kg/m2 AND [] Antepartum hospitalization ? 72 hours within the past month Delivery 1 Major Risk Factor: [] BMI ? 35 kg/m2 [] Low Risk Thrombophilia [] PPH+RBCs, IR, or operation [] Infection+Antibiotics [x] Antepartum hospitalization ? 72 hours within the past month [] PMH: Sickle Cell, SLE, Cardiac Dz, Active IBD, Active Cancer, Nephrotic Syndrome OR 2 Minor Risk Factors: [] Multiple gestation [] Age > 40 [] PPH ? 1,000cc [] (+)FMH of VTE [] Smoker [] Preeclampsia [] BMI ? 40 kg/m2 AND [] Low Risk Thrombophilia OR ANY OF THE FOLLOWING: [] High Risk Thrombophilia without prior VTE [] Low Risk Thrombophilia with (+)FMH of VTE [] Any single prior VTE ANY OF THE FOLLOWING: [] Already on LMWH/UFH [] Multiple prior VTE [] High Risk Thrombophilia with prior VTE Low Risk Thrombophilia: FVL (heterozygous), Prothrombin (heterozygous), Protein C, Protein S High Risk Thrombophilia: FVL (homozygous), Prothrombin (homozygous), FVL+Prothrombin (heterozygous), Antithrombin III, APLS Assessment/Plan: Jose Edward is a 28 y.o. POD # 3 s/p PLTCS 2/2 breech presentation in active labor Care - Doing well, VSS - Post-op hemoglobin: Stable and within normal limits - Rhogam not indicated as patient is Rh positive - Male - Pumping - Contraception: Per Private Attending - Encourage ambulation and use of incentive spirometer - VTE Prophylaxis: Prophylactic Dosing until Discharge GDM - Started insulin 2/2 receiving steroids for lung maturity, last dose was on 03/14 - Dexcom in place (share code [id number]) - Discontinued meds after delivery and have been trending post-prandials - Blood sugars normalizing - AM fasting pending Disposition: Anticipate (more content not included)... Normal [facility] - Chemistry and C hemistry - challengeon 03-16-2024 Glucose [Mass/Vol] 124 mg/dL High 70 - 100 mg/dL [facility] [employer] Glucose [Mass/Vol] 77 mg/dL 70 - 100 mg/dL [facility] [employer] Glucose [Mass/Vol] 102 mg/dL High 70 - 100 mg/dL [facility] [employer] No Panel Informationon 03-16 Interpretation and review of laboratory results Abnormal [facility] [employer] Performed by: [facility], [address] [place] [id number] CLIA ID: [id number] [facility] [employer] [facility] Interpretation and review of laboratory results Normal [facility] [employer] Performed by: [facility], [address] [place] [id number] CLIA ID: [id number] [facility] [employer] [facility] Interpretation and review of laboratory results Abnormal [facility] [employer] [facility]formed [facility]: [email or web address], [address] [place] [id number] CLIA ID: [id number] [facility] Progress Noteon 03-16-2024 Progress Note ---- -------- Attestation signed by Wendi Aguilar MD at 03/16/2024 9:54 AM Hospital Care (Independent): I independently saw and evaluated the patient. I agree with the findings and plan of care as documented in the resident's note. POD#2 from [facility] at 30 weeks for labor and breech. Doing well. Meeting milestones. VSS. Hbg stable. GDMA1 - BS overall normalizing. Pumping for baby boy in NICU. Plan DC home tomorrow. The total time spent on patient care today was 25 minutes. -10 minutes of the visit face to face patient care for counseling/coordination of care -15 minutes chart review and documentation -------- Note- POST OPERATIVE DAY # 2 Jose Edward is a 28 y.o. who was seen & examined today. Her was complicated by: Patient Active Problem List Diagnosis Anhydramnios in third trimester, single or unspecified fetus Today she is doing well without any chief complaint. Her lochia is light. She denies Headache, Chest Pain, Vision Changes, and Shortness of Breath. She is ambulating well. Flatus present. Bowel movement absent. Voiding spontaneously . She is tolerating solids. Pain is controlled yes. Vital Signs: Vitals: 03/15/24 0056 03/15/24 0506 03/15/24 0803 03/15/24 2100 BP: 106/72 114/75 110/68 123/86 BP Location: Right arm Patient Position: Sitting Pulse: 73 88 70 76 Resp: 16 18 16 16 Temp: 36.3 ?C (97.3 ?F) 36.6 ?C (97.8 ?F) 36.6 ?C (97.9 ?F) 36.3 ?C (97.4 ?F) TempSrc: Temporal Temporal Temporal Temporal SpO2: 97% 98% 98% 98% Weight: Height: Urine Input & Output last 24hrs: Intake/Output Summary (Last 24 hours) at 03/16/2024 0543 Last data filed at 03/15/2024 1805 Gross per 24 hour Intake -- Output 1050 ml Net -1050 ml Physical Exam: GENERAL APPEARANCE: alert, well appearing, in no apparent distress ABDOMEN : benign non-tender, without masses or organomegaly palpable EXTREMITIES: no redness or tenderness in the calves or thighs, no edema NEUROLOGIC: alert, oriented, normal speech, no focal findings or movement disorder noted UTERUS : normal size, well involuted, firm, non-tender Desc; incision: Dermabond overlying Labs: Lab Results Component Value Date WBC 8.7 03/13/2024 HGB 12.6 03/15/2024 HCT 38.4 03/13/2024 MCV 88.1 03/13/2024 PLT 282 03/13/2024 O Antibody Screen: No results found for: LABANTI No results found for: RUBELLAIGG LABOR DELIVERY ??? SCD's ONLY (labor through ambulation) SCD's PLUS Prophylactic Anticoagulation until discharge SCD's PLUS Prophylactic Anticoagulation for 6 weeks SCD's PLUS Therapeutic Anticoagulation for 6 weeks Vaginal Delivery [] BMI ? 40 kg/m2 Delivery All patients Vaginal Delivery [] BMI ? 40 kg/m2 AND [] Antepartum hospitalization ? 72 hours within the past month Delivery 1 Major Risk Factor: [] BMI ? 35 kg/m2 [] Low Risk Thrombophilia [] PPH+RBCs, IR, or operation [] Infection+Antibiotics [x] Antepartum hospitalization ? 72 hours within the past month [] PMH: Sickle Cell, SLE, Cardiac Dz, Active IBD, Active Cancer, Nephrotic Syndrome OR 2 Minor Risk Factors: [] Multiple gestation [] Age > 40 [] PPH ? 1,000cc [] (+)FMH of VTE [] Smoker [] Preeclampsia [] BMI ? 40 kg/m2 AND [] Low Risk Thrombophilia OR ANY OF THE FOLLOWING: [] High Risk Thrombophilia without prior VTE [] Low Risk Thrombophilia with (+)FMH of VTE [] Any single prior VTE ANY OF THE FOLLOWING: [] Already on LMWH/UFH [] Multiple prior VTE [] High Risk Thrombophilia with prior VTE Low Risk Thrombophilia: FVL (heterozygous), Prothrombin (heterozygous), Protein C, Protein S High Risk Thrombophilia: FVL (homozygous), Prothrombin (homozygous), FVL+Prothrombin (heterozygous), Antithrombin III, APLS Assessment/Plan: Joes Edward is a 28 y.o. POD # 2 s/p PLTCS 2/2 Breech Malpresentation + PPROM Care - Doing well, VSS - Male - Contraception: Per Private Attending - Encourage ambulation and use of incentive spirometer - D/C west catheter and saline lock IV on POD #1 - Postop Hb 12.6 - VTE Prophylaxis: Prophylactic Dosing until Discharge GDMA1 -Started on insulin 2/2 receiving steroids for lung maturity; lost dose 03/14 -Dexcom in place -PP Plan: DC meds and trend postprandials -BGTs overall controlled yesterday, AM fasting 98 with 1 hour 155 on 03/15, postprandial lunch 87, and postprandial dinner 97 and 102 - Continue trending at attending discretion Disposition: Continue current care Based on my clinical assessment, this patient is safe for self discharge (does not need transport by wheelchair) if she so chooses. Provider's Name: Christiano River (more content not included)... [facility] 42on 03-15-2024 42 Initial visit with cheyenne alonzo. This is mom's first baby, delivered at 30 6/7 weeks. Mom is a transfer from [place] ( lives 1/2 from [facility]). Nurse has mom set up with hospital electric pump. Mom confident in settings and cleanings. Fitted mom with 22.5 flanges as 25mm were to big, causing nipple swelling. Instructed on hand expression-assisted with collecting drops onto swabs. Breast pump use indicated for this pt. Due to: Hospital breast pump, supplies kit, swabs and colostrum collectors provided and set up for patient at the bedside. Instruction given on pump operation, settings, technique and frequency/duration. Return demonstration given by patient. Observation of pumping session and flange fitting done. Mom instructed to double pump every 2-3 hours for 8-10 times per day with at least one pump session between 12 and 6 AM. Suction to be set for comfort but recommend between 20-60%. Reassured patient that it is normal to not collect any significant amounts of breast milk in the first days of pumping, but consistent pumping is important and typically results in increased milk production. Discussed projected amounts and daily goals. Reviewed breast massage and hand expression for increasing milk production. Reviewed colostrum collectors and swabs- how to use and collect colostrum and label swabs/syringes. Breast milk storage guidelines reviewed. Cleaning of pump parts reviewed and basin, soap and clean towels provided for this purpose. Encouraged skin to skin as soon as baby's condition is stable. Discussed plans for home electric breast pump- mom [facility].All questions answered. Will continue to monitor, encourage and support patient. [facility] CARECOORDon 03-15-2024 [facility] Sw consult for help with housing while baby in NICU, as they live out of town. Met with her and spouse at bedside. They have started process including back ground check and think they have been approved for [facility]. Discussed that they can ask to talk to NICU Sw to finalize details. Mob hoping baby may be able to transfer baby to main campus. Sw also dicussed her and can stay at bedside. Discussed with NICU Sw who did meet with parents to assist. No further needs anticipated. OK FOR DC [facility] CARECOORD Date: 03/15/2024 Name: Jose Edward : 1995 [facility] Patient Information Primary Caregiver: Self Accompanied by/Relationship: S/O;Family Marital Status: Support System: SO/Family Mormon/Cultural Factors: none Activities of Daily Living Communication: See demographics Living Arrangements Current Residence: Private residence Lives With: S/O; Family Support System: S/O; Family Income Information Income Source: Employed Financial Resource Strain How hard is it for you to pay for the very basics like food, housing, medical care and heating? N/A Housing Stability In the last 12 months, was there a time when you did not have a steady place to sleep or slept in a fci (including now)? No Transportation Needs Has the lack of Transportation kept you from medical appointments? No In the past 12 months, has the lack of transportation kept you from meetings, work, or from getting things needed for daily living? No Food Insecurity Within the past 12 months, have you worried that your food would run out before you got the money to buy more? No Stress Do you feel stress - tense, restless, nervous, or anxious, or unable to sleep at night because you mind is troubled all the time? Mood stable Referral To Financial Resources: N/A Community Resources: Admission folder given upon admission to PP Unit Social Work: N/A CLP: N/A Medical Information 28 year old admitted for anhydramnios at 29/4 weeks.PPROM GDMA2. 3 Para 0. delivery. Infant in NICU. Discharge Plan Home or Community Resources: Admission folder given upon admission to PP unit Equipment: N/A Education Given: Discussion on the A. B. C's of safe sleep. Always place your baby on his or her back to sleep, use a firm sleep surface and your baby should not sleep in an adult bed, on a couch or chair. Keep soft objects, toys and loose bedding out of your baby's sleep area. Reviewed depression. It is common to have blues. This is a normal response to many of the hormonal changes, stress and lack of sleep that go with raising a and physically recovering from the . Don't hesitate to talk to your provider with any concerns. There are resources in your home going booklet. To help prevent germs from spreading to you and your baby, make sure everyone washes their hands before they handle your . Avoid crowds, and keep infant away from sick people, anyone who is sick with a cough or fever, including family members. Post- warning signs information reviewed with patient per nurse with discharge Additional Information: Patient is independent and has insurance. She is prepared with her baby supplies. To be discharged to home. Denies any concerns at this time. Mental Health Services: Resources in discharge folder Equipment: Developmental Delay: N/A Children's Services: N/A Normal [facility] HEMOGLOBINon 03-15-2024 Hemoglobin (Bld) [Mass/Vol] 12.6 g/dL Normal 11.7-16.0 [facility] Comment on above: Order Comment: POD # 1; if Hemoglobin less than 8 or greater than 3gm drop from admission, notify MD and repeat as ordered, Performed By: #### L [id number] ####Brands Editor: GYPSY DAY ([id number])[facility] ([facility])[address] [place] [address] Hemoglobin (Bld) [Mass/Vol]O rdered By: Khurram Palacio on 03-15-2024 Interpretation and review of laboratory results Normal [facility] Laboratory - Chemistry and C hemistry - challengeon 03-15-2024 Glucose [Mass/Vol] 97 mg/dL 70 - 100 mg/dL [facility] Glucose [Mass/Vol] 87 mg/dL 70 - 100 mg/dL [facility] Glucose [Mass/Vol] 155 mg/dL High 70 - 100 mg/dL [facility] Glucose [Mass/Vol] 98 mg/dL 70 - 100 mg/dL [facility] Laboratory - Hematology and Cell countsOrdered By: Khurram Palacio on 03-15-2024 Hemoglobin (Bld) [Mass/Vol] 12.6 g/dL 11.7 - 16.0 g/dL [facility] No Panel Informationon 03-15 Interpretation and review of laboratory results Normal [facility] Performed by: [facility], [address] [place] [address] CLIA ID: [id number] [facility] Interpretation and review of laboratory results Normal [facility] Performed by: [facility], [address] [place] [address] CLIA ID: [id number] [facility] Interpretation and review of laboratory results Abnormal [facility] Performed by: [facility], [address] [place] [address] CLIA ID: [id number] [facility] Interpretation and review of laboratory results Normal [facility] Performed by: [facility], [address] [place] [address] CLIA ID: [id number] [facility] Nursing Noteon 03-15-2024 Nursing Note At 2320, this RN sec ure messaged the OB residents to ask if they would like a blood sugar tonight since patient's blood sugar was 249 after dinner and received 4 units of Humalog around 1900. Dr. Durate stated that was a good idea to check patient's blood sugar since her blood sugar was high. Informed Dr. Duarte that patient is currently down in NICU, but should be coming back up shortly and will obtain blood sugar then. At 2355, notified Dr. Duarte that patient's blood sugar was 217, and that patient would like to eat a slice of pizza tonight before bed. Dr. Duarte stated patient should not eat any carbohydrates until patient's blood sugar is less than 200. She also changed patient's diet order to carb control. This RN spoke again with patient, and expressed the doctors concerns about not getting an accurate fasting blood sugar in the morning. Patient receptive, and stated she will not eat anything tonight. Patient voiced that she was drinking body armor and stated she will not drink that anymore, instead she will just drink water. Informed patient that Dr. Duarte put in for 4 units of Humalog. Patient voiced understanding and agreeable. Normal [facility] Progress Noteon 03-15-2024 Progress Note Note-Summer caldera POST OPERATIVE DAY # 1 Jose Edward is a 28 y.o. who was seen & examined today. Her was complicated by: Patient Active Problem List Diagnosis Anhydramnios in third trimester, single or unspecified fetus Today she is doing well without any chief complaint. Her lochia is light. She denies Headache, Chest Pain, Vision Changes, and Shortness of Breath. She is ambulating well. Flatus present. Bowel movement absent. West catheter removed, awaiting spontaneous void. She is tolerating solids. Pain is controlled yes. Vital Signs: Vitals: 03/14/24 1612 03/14/24 2020 03/15/24 0056 03/15/24 0506 BP: 111/75 116/81 106/72 114/75 BP Location: Right arm Patient Position: Lying Pulse: 80 84 73 88 Resp: 16 18 16 18 Temp: 36.3 ?C (97.4 ?F) (!) 35.9 ?C (96.6 ?F) 36.3 ?C (97.3 ?F) 36.6 ?C (97.8 ?F) TempSrc: Temporal Temporal Temporal Temporal SpO2: 95% 97% 97% 98% Weight: Height: Urine Input & Output last 24hrs: Intake/Output Summary (Last 24 hours) at 03/15/2024 0626 Last data filed at 03/15/2024 0044 Gross per 24 hour Intake 1200 ml Output 4580 ml Net -3380 ml Physical Exam: GENERAL APPEARANCE: alert, well appearing, in no apparent distress ABDOMEN : benign non-tender, without masses or organomegaly palpable EXTREMITIES: no redness or tenderness in the calves or thighs, no edema NEUROLOGIC: alert, oriented, normal speech, no focal findings or movement disorder noted UTERUS : normal size, well involuted, firm, non-tender Desc; incision: healing well, no drainage, no erythema, no swelling, well approximated Labs: Lab Results Component Value Date WBC 8.7 03/13/2024 HGB 12.6 03/15/2024 HCT 38.4 03/13/2024 MCV 88.1 03/13/2024 PLT 282 03/13/2024 LABOR DELIVERY ??? SCD's ONLY (labor through ambulation) SCD's PLUS Prophylactic Anticoagulation until discharge SCD's PLUS Prophylactic Anticoagulation for 6 weeks SCD's PLUS Therapeutic Anticoagulation for 6 weeks Vaginal Delivery [] BMI ? 40 kg/m2 Delivery All patients Vaginal Delivery [] BMI ? 40 kg/m2 AND [] Antepartum hospitalization ? 72 hours within the past month Delivery 1 Major Risk Factor: [] BMI ? 35 kg/m2 [] Low Risk Thrombophilia [] PPH+RBCs, IR, or operation [] Infection+Antibiotics [x] Antepartum hospitalization ? 72 hours within the past month [] PMH: Sickle Cell, SLE, Cardiac Dz, Active IBD, Active Cancer, Nephrotic Syndrome OR 2 Minor Risk Factors: [] Multiple gestation [] Age > 40 [] PPH ? 1,000cc [] (+)FMH of VTE [] Smoker [] Preeclampsia [] BMI ? 40 kg/m2 AND [] Low Risk Thrombophilia OR ANY OF THE FOLLOWING: [] High Risk Thrombophilia without prior VTE [] Low Risk Thrombophilia with (+)FMH of VTE [] Any single prior VTE ANY OF THE FOLLOWING: [] Already on LMWH/UFH [] Multiple prior VTE [] High Risk Thrombophilia with prior VTE Low Risk Thrombophilia: FVL (heterozygous), Prothrombin (heterozygous), Protein C, Protein S High Risk Thrombophilia: FVL (homozygous), Prothrombin (homozygous), FVL+Prothrombin (heterozygous), Antithrombin III, APLS Assessment/Plan: Jose Edward is a 28 y.o. POD # 1 s/p PLTCS 2/2 Breech Malpresentation in setting of PPROM and labor Care - Doing well, VSS - Male - Contraception: Per Private Attending - Encourage ambulation and use of incentive spirometer - D/C west catheter and saline lock IV on POD #1 - Postop Hb 12.6 - VTE Prophylaxis: Prophylactic Dosing until Discharge GDMA1 -Started on insulin 2/2 receiving steroids for lung maturity -Dexcom in place -: DC meds and trend postprandials -Had elevated BGTs over night and was given 4 units of Humalog -AM fasting pending Disposition: Continue current care Based on my clinical assessment, this patient is safe for self discharge (does not need transport by wheelchair) if she so chooses. Provider's Name: MD Chin Brasher, 03/15/2024, 6:26 AM Attestation Statement I saw and evaluated the patient. I agree with the findings and plans of the resident physician, and agree as documented in their note. Doing well POD#1, meeting milestones. BG looking better this morning, fasting 98, 1 hour PP 155. Continue to pattern test (last BMZ 03/14). Baby boy in NICU doing well per patient. Continue current management. Approved for [facility], will coordinate with NICU. The total time spent on patient care today was 25 minutes. -10 minutes of the visit face to face patient care for counseling/coordination of care -15 minutes chart review and documentation , 9:41 AM [facility] BLOOD TYPE AND SCREEN GELon 03-14-2024 ABO GROUPING O Normal [facility] Comment on above: Performed By: #### L [id number] ####Brands Editor: GYPSY DAY ([id number])[facility] ([facility])[address] [place] [address] RH TYPE IN BLOOD Positive Normal [facility] Comment on above: Performed By: #### L [id number] ####Brands Editor: GYPSY DAY ([id number])[facility] ([facility])[address] [place] [address] Blood type and Crossmatch pa phill (Bld)on 03-14-2024 ABO group Nom (Bld) O [facility] Blood group antibody screen GEL Ql Negative [facility] [employer] D Ag Ql (RBC) Positive [facility] Healt [facility] Laboratory - Chemistry and C hemistry - challengeon 03-14-2024 Glucose [Mass/Vol] 217 mg/dL High 70 - 100 mg/dL [facility] Glucose [Mass/Vol] 249 mg/dL High 70 - 100 mg/dL [facility] Glucose [Mass/Vol] 101 mg/dL High 70 - 100 mg/dL [facility] Glucose [Mass/Vol] 116 mg/dL High 70 - 100 mg/dL [facility] No Panel Informationon 03-14 Interpretation and review of laboratory results Abnormal [facility] Performed by: [facility], [address] [place] [address] CLIA ID: [id number] [facility] Interpretation and review of laboratory results Abnormal [facility] Performed by: [facility], [address] [place] [address] CLIA ID: [id number] [facility] 1. Allen live intrauterine at 30w 5d. 2. Normal growth; EFW 1445 grams, which is at the 37% for this gestational age. 3. The amniotic fluid index consistent with anhydramnios 4. Visualized anatomy appears normal as noted above. 5. BPP 6/8 See IP note recommend delivery given vaginal bleeding and PPROM with contractions and BREECH presentation Ultrasound is not diagnostic of chromosomal aneuploidy and does not detect all subtle defects. Normal ultrasound findings do not guarantee normal outcomes. [facility] OBSTETRICS REPORT (Signed Final 03/14/2024 12:33 pm) PATIENT INFO: ID #: [id number] : [birth year] (28 yrs)(F) Name: JOSE EDWARD Visit Date: 03/14/2024 09:55 am PERFORMED BY: Attending: Christiano Au MD Performed By: Allison Langley RDPR Referred By: JULIANA NGUYEN [facility] Phy.: RAND HALLMAN Location: [facility] Visit Type: Inpatient - Hospital SERVICE(S) PROVIDED: [place] NST [address] [place] [id number] INDICATIONS: Oligohydramnios, third trimester, not O41.03X0 applicable or unspecified Antepartum hemorrhage, unspecified, third O46.93 trimester Oligohydramnios, third trimester, not O41.03X0 applicable or unspecified Antepartum hemorrhage, unspecified, third O46.93 trimester VITAL SIGNS: Weight (lb): 188 Height: 5'2 BMI: 34.38 EVALUATION: Num Of Fetuses: 1 Heart Rate(bpm): 150 Cardiac Activity: Regular rhythm Lie: Longitudinal Presentation: Breech Placenta: Posterior Amniotic Fluid LEONELA FV: Anhydramnios BIOPHYSICAL EVALUATION: Amniotic F.V: Anhydramios F. Tone: Observed F. Movement: Observed Score: 6/8 F. Breathing: Observed BIOMETRY: BPD: 72.7 mm G.Age: 29w 1d 6 % OFD: 102.6 mm HC: 282.9 mm G.Age: 31w 0d 22 % AC: 254.2 mm G.Age: 29w 4d 16 % FL: 56.5 mm G.Age: 29w 5d 12 % CI: 70.9 % 70 - 86 FL/HC: 20.0 % 19.3 - 21.3 HC/AC: 1.11 0.96 - 1.17 FL/BPD: 77.7 % 71 - 87 FL/AC: 22.2 % 20 - 24 Est. FW: 1445 gm 3 lb 3 oz 37 % GESTATIONAL AGE: Clinical GERALD: 30w 5d GERALD: 05/18/24 U/S Today: 29w 6d GERALD: 05/24/24 Best: 30w 5d Det. By: Clinical GERALD GERALD: 05/18/24 ANATOMY: Cranium: Normal appearance Cavum: Normal appearance Ventricles: Normal appearance Choroid Plexus: Normal appearance Thoracic: Normal appearance Heart: Normal appearance RVOT: Normal appearance LVOT: Normal appearance Diaphragm: Normal appearance Stomach: Normal appearance Abdomen: Normal appearance Abdominal Wall: Normal appearance Cord Vessels: 3-Vessel Cord Kidneys: Normal appearance Bladder: Normal appearance Upper Extremities: Present Lower Extremities: Present Christiano Au MD Electronically Signed Final Report 03/14/2024 12:33 pm [facility] Christiano Au MD - 03/14/2024 OBSTETRICS REPORT (Signed Final 03/14/2024 12:33 pm) PATIENT INFO: ID #: [id number] : [birth year] (28 yrs)(F) Name: JOSE EDWARD Visit Date: 03/14/2024 09:55 am PERFORMED BY: Attending: Christiano Au MD Performed By: Allison Langley RDMS Referred By: JULIANA Tejada.: RAND HALLMAN Location: [facility] Visit Type: Inpatient - Hospital SERVICE(S) PROVIDED: BPP w/out NST [address] [place] [id number] INDICATIONS: Oligohydramnios, third trimester, not O41.03X0 applicable or unspecified Antepartum hemorrhage, unspecified, third O46.93 trimester Oligohydramnios, third trimester, not O41.03X0 applicable or unspecified Antepartum hemorrhage, unspecified, third O46.93 trimester VITAL SIGNS: Weight (lb): 188 Height: 5'2 BMI: 34.38 EVALUATION: Num Of Fetuses: 1 Heart Rate(bpm): 150 Cardiac Activity: Regular rhythm Lie: Longitudinal Presentation: Breech Placenta: Posterior Amniotic Fluid LEONELA FV: Anhydramnios BIOPHYSICAL EVALUATION: Amniotic F.V: Anhydramios F. Tone: Observed F. Movement: Observed Score: 12/08 F. Breathing: Observed BIOMETRY: BPD: 72.7 mm G.Age: 29w 1d 6 % OFD: 102.6 mm HC: 282.9 mm G.Age: 31w 0d 22 % AC: 254.2 mm G.Age: 29w 4d 16 % FL: 56.5 mm G.Age: 29w 5d 12 % CI: 70.9 % 70 - 86 FL/HC: 20.0 % 19.3 - 21.3 HC/AC: 1.11 0.96 - 1.17 FL/BPD: 77.7 % 71 - 87 FL/AC: 22.2 % 20 - 24 Est. FW: 1445 gm 3 lb 3 oz 37 % GESTATIONAL AGE: Clinical GERALD: 30w 5d GERALD: 05/18/24 U/S Today: 29w 6d GERALD: 05/24/24 Best: 30w 5d Det. By: Clinical GERALD GERALD: 05/18/24 ANATOMY: Cranium: Normal appearance Cavum: Normal appearance Ventricles: Normal appearance Choroid Plexus: Normal appearance Thoracic: Normal appearance Heart: Normal appearance RVOT: Normal appearance LVOT: Normal appearance Diaphragm: Normal appearance Stomach: Normal appearance Abdomen: Normal appearance Abdominal Wall: Normal appearance Cord Vessels: 3-Vessel Cord Kidneys: Normal appearance Bladder: Normal appearance Upper Extremities: Present Lower Extremities: Present Christiano Au MD Electronically Signed Final Report 03/14/2024 12:33 pm IMPRESSION: 1. Allen live intrauterine at 30w 5d. 2. Normal growth; EFW 1445 grams, which is at the 37% for this gestational age. 3. The amniotic fluid index consistent with anhydramnios 4. Visualized anatomy appears normal as noted above. 5. BPP 6/8 See IP note recommend delivery given vaginal bleeding and PPROM with contractions and BREECH presentation Ultrasound is not diagnostic of chromosomal aneuploidy and does not detect all subtle defects. Normal ultrasound findings do not guarantee normal outcomes. [facility] Interpretation and review of laboratory results Abnormal [facility] [employer] Performed by: [facility], [address] [place] [address] CLIA ID: [id number] [facility] [employer] Radiology Study observation (narrative) [facility] [employer] Interpretation and review of laboratory results Abnormal [facility] [employer] Performed by: [facility], [address] [place] [address] CLIA ID: [id number] [facility] [employer] No Panel InformationOrdered By: Christiano Au on 03-14-2024 [facility] Work Phone: Nursing Noteon 03-14-2024 Nursing Note Pt reports spotting on her pad and upon assessing urine found a few red specks in her urine Normal [facility] Nursing Note Dr. Nguyen made aware that pt was just up to restroom and had a quarter size mucousy, bloody clot into toilet. No active bleeding noted. No change to plan of care at this time Normal [facility] Nursing Note Pt made aware that o rder for nothing to eat or drink has been ordered by Dr. Duarte. She states understanding. I made her aware that I will be starting IV fluids also. Normal [facility] Op Noteon 03-14-2024 Op Note 3x1 cm postrior subserosal fibroid Operative Note Patient: Jose Edward : 1995 Date of Procedure: 03/14/24 Principal Problem: Anhydramnios in third trimester, single or unspecified fetus PREOPERATIVE DIAGNOSES: 1. at 30w5d 2. Unscheduled Primary 3. PPROM 4. Anhydramnios 5. malpresentation 6. GDMA2 POSTOPERATIVE DIAGNOSES: 1. Same 2. Living Infant, male PROCEDURE: Primary low transverse section SURGEON: Dr. Gordillo ASST: Dr. Crews ANESTHESIA: spinal ANTIBIOTIC(S): 2g Ancef VAG PREP (Iodine): Yes FINDINGS: Overall normal appearing uterus with 3x1 cm subserosal fibroid noted on posterior uterus; normal ovaries and fallopian tubes FLUIDS: 1,000 ml crystalloids URINE: 100 ml EBL: 400 ml QBL: Quantitative Blood Loss (mL): 580 mL DRAINS: west catheter SPECIMENS: none COMPLICATIONS: none CONDITION: good, transferred to : post anesthesia recovery FINDINGS: Live male infant, breech APGARS 1 min: 7 5 min: 9 Weight: 1550 grams Tubes and ovaries: within normal limits. Description: normal INDICATION FOR PROCEDURE Patient admitted to Labor and Delivery for PPROM and anhydramnios. She began to have vaginal bleeding and painful contractions. She was breech. Patient was consented for a section and was agreeable to blood products as medically indicated. This was an unscheduled non-emergent section. DETAILS OF PROCEDURE: Patient was brought into the operating room and she was placed in the supine position slightly tilted to the left. The abdomen was prepped and draped in the usual manner. Anesthesia level was checked and was found to be adequate. The abdomen was entered through a pfannenstiel incision. The incision was carried through the subcutaneous tissue to the fascia which was nicked in the midline and carried transversely using barrett scissors. Kochers were used to grasp the edges of the fascia and sharp and blunt dissection used to reflect the underlying rectus abdominis muscles. The muscles were in the midline bluntly and sharply exposing the parietal peritoneum. The peritoneum was entered bluntly. Perforating vessels long the rectus bellies were ligated with electrocautery. On the left rectus a perforating vessel was bleeding and ligated with electrocautery. Found to be hemostatic on reinspection. The peritoneal incision was extended bluntly with good visualization of bladder. Bladder retractor was placed as well as Luke retractor. Bladder flap was made: No The lower uterine segment was opened in a low transverse incision with a scalpel. The amniotic cavity was entered and minimal amount of clear amniotic fluid was noted. Bladder retractor and Luke retractor were removed, and baby was delivered from the breech presentation presentation. Sacrum was elevated through the hysterotomy and both legs were swept through. Baby was elevated to the level of the scapula and the right then left arms were swept across the chest and through the hysterotomy. Head was delivered with maxillary traction and fundal pressure. The baby was handed over to the nursery personnel standing by. Placenta was extracted intact with gentle traction. The uterus was exteriorized and wrapped in a wet lap. The uterine cavity was swept and cleared of all clots and debris using a dry lap. The uterine incision was closed using a continuous locked suture of 0 monocryl. A second layer was performed. Hemostasis was ensured. The uterus was replaced in the abdomen. Hemostasis of the operative field was ensured and the gutters were cleared of all clots and debris. The rectus muscles were reapproximated with 3-0 monocryl. Fascia was closed with 1 PDS in a running fashion. Subcutaneous closure was performed with 3-0 Monocryl. Hemostasis was ensured. Skin closure was performed with 4-0 monocryl suture. Dermabond applied over wound. Sponge, needle and instrument counts were correct twice. Patient was transferred to the recovery room in satisfactory stable condition. Chin Crews, 03/14/2024 12:50 PM LABOR DELIVERY ??? SCD's ONLY (labor through ambulation) SCD's PLUS Prophylactic Anticoagulation until discharge SCD's PLUS Prophylactic Anticoagulation for 6 weeks SCD's PLUS Therapeutic Anticoagulation for 6 weeks Vaginal Delivery [] BMI >= 40 kg/m2 Delivery All patients Vaginal Delivery [] BMI >= 40 kg/m2 AND [] Antepartum hospitalization >= 72 hours within the past month Delivery 1 Major Risk Factor: [] BMI >= 35 kg/m2 [] Low Risk Thrombophilia [] PPH+RBCs, IR, or operation [] Infection+Antibiotics [x] Antepartum hospitalization >= 72 hours within the past month [] PMH: Sickle Cell, SLE, Cardiac Dz, Active IBD, Active Cancer, Nephrotic Syndrome OR 2 Minor Risk Factors: [] Multiple gestation [] Age > 40 (more content not included)... Normal [facility] Progress Noteon 03-14-2024 Progress Note 1hr pp 249. Discusse d with Dr. Mancia. Will give 4u. Savanah Duarte DO 03/14/2024 6:59 PM Came back from NICU and had eaten. Now 217. Will not eat further. Will give 4u. Advised on fasting BGT in the morning. Aware not to eat further for true fast in Am. Changed to CCD Savanah Duarte DO 03/15/2024 12:07 AM [facility] Progress Note Nutrition Note: Patient now s/p delivery earlier today. Regular diet ordered which is appropriate. RD sign off to [employer] to continue to monitor. Gypsy Kirby MS RD LD Clinical Dietitian [facility] Progress Note Safety Huddle: Called due to PPROM and laboring with breech presentation and having vaginal bleeding. OB anesthesia, primary RN, charger operator, Dr. Gordillo all present. Will be for 2g Ancef, she is allergic to azithromycin. Received latency abx already. [employer] SALES MANAGER notified. Consent signed by Dr. Au, risks and benefits discussed with the patient including bleeding, infection, damage to surrounding structures. Will proceed with primary section unscheduled, non-emergent. All in agreement. ANA TOVAR DO 03/14/2024 10:43 AM ATTENDING NOTE: I reviewed the note from the Resident and agree with the documentation unless otherwise indicated. [facility] Progress Note Evaluated the patien t to assess position. The fetus is breech on BSUS. Ehsan Gonsalez MD 03/14/2024 9:18 AM [facility] Progress Note ---- -------- Attestation signed by Christiano Au MD at 03/14/2024 9:03 AM I independently saw and evaluated the patient. I agree with the findings and plan of care as documented in the resident's note. Notified overnight of increasing abdominal pain and some vaginal bleeding now on her pad at the bedside and magnesium IV running 28 yr old at 30 5/7 GA with the following: PPPROM/anhydramnios new abdominal pain and vaginal bleeding this am. Consented for as I am concerned about labor. Continued magnesium IV for now and complete second dose of Celestone. Dr. Gordillo notified and I reviewed the Risks of with consent signed. Discussed with and the patient the R/B/A of repeat including but not limited to risk of injury to surrounding structures, risk of bleeding, hemorrhage, risk for injury to surrounding structures including bowel, bladder and baby. Risk for scarring and VTE as well a low risk for hysterectomy discussed. There is also a risk with anesthesia, please see their counseling note as well. Will continue to monitor but will recommend repeat if continued vaginal bleeding and pain. NICU aware Understands for breech presentation if labor or bleeding GDMA1 continued monitoring of BGT if delivery and will hold insulin. This am fasting elevated and on insulin currently History of UTI concerns negative culture will stop macrobid Prematurity BMZ on 03/06 and 03/07 will administer rBMZ second dose, on magnesium IV currently for neuroprotection Guarded prognosis for continued will observe closely over the next hour I spent 30 minutes in the visit today on the floor reviewing the chart, discussing the case with the residency staff and nursing and I notified our primary OB team of need for delivery Christiano Au MD -------- Maternal Medicine Service Resident Progress Note 03/14/2024 5:56 AM 03/06/2024 Hospital Day: 9 Jose Edward, 28 y.o. 30w5d Patient has been seen and examined. Patient reports intermittent lower abdominal cramping and pelvic pressure that is not painful but has increased in intensity overnight. She continues to leak clear and occasionally pink tinged fluid. She has not noticed any abnormal or malodorous discharge. She denies any fevers or chills but does feel flushed during the episodes of cramping. SVE performed overnight 1 cm. Due to increased pressure and discomfort, patient started on magnesium for neuroprotection. Positive movement Negative vaginal bleeding Positive LOF Positive Contractions Vitals: 03/14/24 0020 03/14/24 0431 03/14/24 0532 03/14/24 0535 BP: 111/70 113/72 114/68 BP Location: Right arm Pulse: 91 86 92 97 Resp: 17 17 Temp: 36.7 ?C (98.1 ?F) 36.9 ?C (98.4 ?F) 36.9 ?C (98.4 ?F) TempSrc: Oral Oral Oral SpO2: 95% 97% 100% Weight: Height: FHT: 150, moderate variability Accels: present Decels: absent Contractions: regular, every 4-5 minutes Physical Exam: Gen: NAD, appears comfortable sitting up in chair HEENT: Normocephalic, Atraumatic Resp: Equal chest rise bilaterally, no additional work of breathing Abd: soft, gravid, NTND, no rebound, no guarding. No fundal tenderness Ext: No LE edema, no calf tenderness or swelling Medications: Current Facility-Administered Medications Medication Dose Route Frequency Provider Last Rate Last Admin betamethasone acetate-betamethasone sodium phosphate (Celestone) injection 12 mg 12 mg IntraMUSCular q24h Juliana Nguyen DO 12 mg at 03/13/24 1003 calcium gluconate 10 % injection 1 g 1 g IntraVENous PRN Dali Hall MD calcium gluconate 10 % injection 1 g 1 g IntraVENous PRN Savanah Gerald, DO dextrose 5 % infusion 100 mL/hr IntraVENous PRN Keiry Donovaneper, DO dextrose 50 % solution 12.5 g 12.5 g IntraVENous PRN Keiry Donovaneper, DO glucagon (human recombinant) injection 1 mg 1 mg IntraMUSCular PRN Keiry Schlieper, DO glucose oral gel 15 g 15 g Oral PRN Keiry Schlieper, DO influenza vac tiss-cult subunt (Flucelvax) injection 0.5 mL 0.5 mL IntraMUSCular Once Juliana Nguyen, DO Insulin Lispro (Humalog) injection 6 Units 6 Units SubCUTAneous TID WC Savanah Duarte, DO insulin NPH (Isophane) (HumuLIN N,NovoLIN N) injection 6 Units 6 Units SubCUTAneous Nightly Savanah Duarte, DO 6 Units at 03/13/24 2223 lactated Ringer's infusion 125 mL/hr IntraVENous Continuous Savanah Duarte, DO 125 mL/hr at 03/14/24 0507 125 mL/hr at 03/14/24 0507 magnesium sulfate 20 GM/500ML infusion 1,000 mg/hr IntraVENous Continuous Savanah Lumberton, DO magnesium sulfate IVPB premix 4,000 mg 4,000 mg IntraVENous Once Savanah Lumberton, DO 4,000 mg at 03/14/24 0545 ondansetron ODT (Z (more content not included)... Normal [facility] BIOPHYSICAL PROFILE WO NON STRESS TESTINGon 03-14-2024 US BIOPHYSICAL PROFILE WO NON STRESS TESTING OBSTETRICS REPORT (Signed Final 03/14/2024 12:33 pm) PATIENT INFO: ID #: [id number] : [birth year] (28 yrs)(F) Name: JOSE EDWARD Visit Date: 03/14/2024 09:55 am PERFORMED BY: Attending: Christiano Au MD Performed By: Allison Langley [facility] Referred By: JULIANA Meléndez Phy.: RAND HALLMAN Location: [facility] Visit Type: Inpatient - Hospital SERVICE(S) PROVIDED: LAUREN w/jessica T [id number] [place] [id number] INDICATIONS: Oligohydramnios, third trimester, not O41.03X0 applicable or unspecified Antepartum hemorrhage, unspecified, third O46.93 trimester Oligohydramnios, third trimester, not O41.03X0 applicable or unspecified Antepartum hemorrhage, unspecified, third O46.93 trimester VITAL SIGNS: Weight (lb): 188 Height: 5'2 BMI: 34.38 EVALUATION: Num Of Fetuses: 1 Heart Rate(bpm): 150 Cardiac Activity: Regular rhythm Lie: Longitudinal Presentation: Breech Placenta: Posterior Amniotic Fluid LEONELA FV: Anhydramnios BIOPHYSICAL EVALUATION: Amniotic F.V: Anhydramios F. Tone: Observed F. Movement: Observed Score: 12/08 F. Breathing: Observed BIOMETRY: BPD: 72.7 mm G.Age: 29w 1d 6 % OFD: 102.6 mm HC: 282.9 mm G.Age: 31w 0d 22 % AC: 254.2 mm G.Age: 29w 4d 16 % FL: 56.5 mm G.Age: 29w 5d 12 % CI: 70.9 % 70 - 86 FL/HC: 20.0 % 19.3 - 21.3 HC/AC: 1.11 0.96 - 1.17 FL/BPD: 77.7 % 71 - 87 FL/AC: 22.2 % 20 - 24 Est. FW: 1445 gm 3 lb 3 oz 37 % GESTATIONAL AGE: Clinical GERALD: 30w 5d GERALD: 05/18/24 U/S Today: 29w 6d GERALD: 05/24/24 Best: 30w 5d Det. By: Clinical GERALD GERALD: 05/18/24 ANATOMY: Cranium: Normal appearance Cavum: Normal appearance Ventricles: Normal appearance Choroid Plexus: Normal appearance Thoracic: Normal appearance Heart: Normal appearance RVOT: Normal appearance LVOT: Normal appearance Diaphragm: Normal appearance Stomach: Normal appearance Abdomen: Normal appearance Abdominal Wall: Normal appearance Cord Vessels: 3-Vessel Cord Kidneys: Normal appearance Bladder: Normal appearance Upper Extremities: Present Lower Extremities: Present Christiano Au MD Electronically Signed Final Report 03/14/2024 12:33 pm IMPRESSION: 1. Allen live intrauterine at 30w 5d. 2. Normal growth; EFW 1445 grams, which is at the 37% for this gestational age. 3. The amniotic fluid index consistent with anhydramnios 4. Visualized anatomy appears normal as noted above. 5. BPP 12/08 See IP note recommend delivery given vaginal bleeding and PPROM with contractions and BREECH presentation Ultrasound is not diagnostic of chromosomal aneuploidy and does not detect all subtle defects. Normal ultrasound findings do not guarantee normal outcomes. Normal [facility] US OB FOLLOW UP TRANSABDOMIN AL APPROACHon 03-14-2024 US OB FOLLOW UP TRANSABDOMINAL APPROACH OBSTETRICS REPORT (Signed Final 03/14/2024 12:33 pm) PATIENT INFO: ID #: [id number] : [birth year] (28 yrs)(F) Name: JOSE EDWARD Visit Date: 03/14/2024 09:55 am PERFORMED BY: Attending: Christiano Au MD Performed By: Allison Langley RDPR Referred By: JULIANA NGUYEN [facility] Phy.: RAND HALLMAN Location: [facility] Visit Type: Inpatient - Hospital SERVICE(S) PROVIDED: LAUREN mack/jessica GUZMAN [id number] [place] [id number] INDICATIONS: Oligohydramnios, third trimester, not O41.03X0 applicable or unspecified Antepartum hemorrhage, unspecified, third O46.93 trimester Oligohydramnios, third trimester, not O41.03X0 applicable or unspecified Antepartum hemorrhage, unspecified, third O46.93 trimester VITAL SIGNS: Weight (lb): 188 Height: 5'2 BMI: 34.38 EVALUATION: Num Of Fetuses: 1 Heart Rate(bpm): 150 Cardiac Activity: Regular rhythm Lie: Longitudinal Presentation: Breech Placenta: Posterior Amniotic Fluid LEONELA FV: Anhydramnios BIOPHYSICAL EVALUATION: Amniotic F.V: Anhydramios F. Tone: Observed F. Movement: Observed Score: 68 F. Breathing: Observed BIOMETRY: BPD: 72.7 mm G.Age: 29w 1d 6 % OFD: 102.6 mm HC: 282.9 mm G.Age: 31w 0d 22 % AC: 254.2 mm G.Age: 29w 4d 16 % FL: 56.5 mm G.Age: 29w 5d 12 % CI: 70.9 % 70 - 86 FL/HC: 20.0 % 19.3 - 21.3 HC/AC: 1.11 0.96 - 1.17 FL/BPD: 77.7 % 71 - 87 FL/AC: 22.2 % 20 - 24 Est. FW: 1445 gm 3 lb 3 oz 37 % GESTATIONAL AGE: Clinical GERALD: 30w 5d GERALD: 05/18/24 U/S Today: 29w 6d GERALD: 05/24/24 Best: 30w 5d Det. By: Clinical GERALD GERALD: 05/18/24 ANATOMY: Cranium: Normal appearance Cavum: Normal appearance Ventricles: Normal appearance Choroid Plexus: Normal appearance Thoracic: Normal appearance Heart: Normal appearance RVOT: Normal appearance LVOT: Normal appearance Diaphragm: Normal appearance Stomach: Normal appearance Abdomen: Normal appearance Abdominal Wall: Normal appearance Cord Vessels: 3-Vessel Cord Kidneys: Normal appearance Bladder: Normal appearance Upper Extremities: Present Lower Extremities: Present Christiano Au MD Electronically Signed Final Report 03/14/2024 12:33 pm IMPRESSION: 1. Allen live intrauterine at 30w 5d. 2. Normal growth; EFW 1445 grams, which is at the 37% for this gestational age. 3. The amniotic fluid index consistent with anhydramnios 4. Visualized anatomy appears normal as noted above. 5. BPP 12/08 See IP note recommend delivery given vaginal bleeding and PPROM with contractions and BREECH presentation Ultrasound is not diagnostic of chromosomal aneuploidy and does not detect all subtle defects. Normal ultrasound findings do not guarantee normal outcomes. Normal [facility] CARECOORDon 03-13-2024 [facility] Hospital day 8 at 30 /4 weeks. PPROM. Voiced no needs or concerns. Normal [facility] CBC (HEMOGRAM)on 03-13-2024 Erythrocyte distribution width (RBC) [Ratio] 13.8 % Normal 11.5-15.0 [facility] Comment on above: Performed By: #### L [id number] ####Brands Editor: GYPSY DAY ([id number])[address] Hematocrit (Bld) [Volume fraction] 38.4 % Normal 35.0-47.0 [facility] Comment on above: Performed By: #### L [id number] ####Brands Editor: GYPSY DAY ([id number])[address] Hemoglobin (Bld) [Mass/Vol] 13.0 g/dL Normal 11.7-16.0 [facility] Comment on above: Performed By: #### L [id number] ####Brands Editor: GYPSY DAY ([id number])[facility])[address] [place] [address] MCH (RBC) [Entitic mass] 29.8 pg Normal 26.0-34.0 [facility] Comment on above: Performed By: #### L [id number] ####Brands Editor: GYPSY DAY ([id number])[facility] ([facility])[address] [place] [address] MCHC 33.9 % Normal 30.5-36.0 [facility] Comment on above: Performed By: #### L [id number] ####Brands Editor: GYPSY DAY ([id number])[facility] ([facility])[address] [place] [address] MCV (RBC) [Entitic vol] 88.1 fL Normal 77.0-99.0 [facility] Comment on above: Performed By: #### L [id number] ####Brands Editor: GYPSY DAY ([id number])[facility] ([facility])[address] [place] [address] Platelet mean volume (Bld) [Entitic vol] 9.5 fL Normal 9.0-12.7 [facility] Comment on above: Performed By: #### L [id number] ####Brands Editor: GYPSY DAY ([id number])[facility] ([facility])[address] [place] [address] Platelets (Bld) [#/Vol] 282 10*3/uL Normal 140-440 [facility] Comment on above: Performed By: #### L [id number] ####Brands Editor: GYPSY DAY ([id number])[facility])[address] [place] [address] RBC (Bld) [#/Vol] 4.36 10*6/uL Normal 3.80-5.20 [facility] Comment on above: Performed By: #### L [id number] ####Brands Editor: GYPSY ADY ([id number])[facility])[address] [place] [address] WBC (Bld) [#/Vol] 8.7 10*3/uL Normal 3.6-10.7 [facility] Comment on above: Performed By: #### L [id number] ####Brands Editor: GYPSY DAY ([id number])[facility] ([facility])[address] [place] [address] CBC panel Auto (Bld)on 03-13 Erythrocyte distribution width (RBC) [Ratio] 13.8 % 11.5 - 15.0 % [facility] Hematocrit (Bld) [Volume fraction] 38.4 % 35.0 - 47.0 % [facility] Hemoglobin (Bld) [Mass/Vol] 13.0 g/dL 11.7 - 16.0 g/dL [facility] Interpretation and review of laboratory results Normal [facility] MCH (RBC) [Entitic mass] 29.8 pg 26.0 - 34.0 pg [facility] MCHC (RBC) [Mass/Vol] 33.9 % 30.5 - 36.0 % [facility] MCV (RBC) [Entitic vol] 88.1 fL 77.0 - 99.0 fL [facility] Platelet mean volume (Bld) [Entitic vol] 9.5 fL 9.0 - 12.7 fL [facility] Platelets (Bld) [#/Vol] 282 10*3/uL 140 - 440 10*3/uL [facility] RBC (Bld) [#/Vol] 4.36 10*6/uL 3.80 - 5.2 0 10*6/uL [facility] WBC (Bld) [#/Vol] 8.7 10*3/uL 3.6 - 10.7 10*3/uL [facility] IDNon 03-13-2024 IDN The patient is Moderately Stable - Low risk of patient condition declining or worsening The patient's goals for the shift include remain The clinical goals for the shift include remain afebrile Normal [facility] IDN The patient is Moderately Stable - Low risk of patient condition declining or worsening The patient's goals for the shift include remain The clinical goals for the shift include remain afebrile Normal [facility] Laboratory - Chemistry and C hemistry - challengeon 03-13-2024 Glucose [Mass/Vol] 230 mg/dL High 70 - 100 mg/dL [facility] Glucose [Mass/Vol] 162 mg/dL High 70 - 100 mg/dL [facility] [employer] Glucose [Mass/Vol] 92 mg/dL 70 - 100 mg/dL [facility] [employer] Glucose [Mass/Vol] 91 mg/dL 70 - 100 mg/dL [facility] [employer] No Panel Informationon 03-13 Interpretation and review of laboratory results Abnormal [facility] Performed by: [facility] [employer] [facility], [address] [place] [address] CLIA ID: [id number] [facility] [employer] [facility] Interpretation and review of laboratory results Abnormal [facility] Performed by: [facility] [employer] [facility], [address] [place] [address], [facility] [address] CLIA ID: [id number] [facility] [employer] [facility] Interpretation and review of laboratory results Normal [facility] Performed by: [facility], [address] [place] [address], [facility] [address] CLIA ID: [id number] [facility] [employer] [facility] Interpretation and review of laboratory results Normal [facility] Performed by: [facility], [address] [place] [address] CLIA ID: [id number] [facility] [employer] [facility] [employer] Progress Noteon 03-13-2024 Progress Note Notified of BGT of [address] Au and will order 6u log with meals and 6u nph nightly. Will give 6u now. Called by RN to assess patient for possible pressure. Patient reports that she feels intermittent pressure. Its not painful. In generalized belly and back. Feeling rare contractions. Denies pain. Reports she's been feeling intermittent pressure throughout admission and this is not different. SSE with pooled clear fluid. Cervix still appears visually closed.Cat I FHT. Again, patient denies contraction pain. Discussed need for NPO if that changed. Will be for magnesium sulfate if pain or concerns for labor. Will continue to monitor closely. Savanah Gerald, DO 03/13/2024 11:23 PM [place] more cramping. 1cm dilated. Reportedly was 1cm at jacey. Clear fluid. No fundal tenderness. Contractions noted 10m apart. No pain but felt the pressure. Cat I FHT . Moderate variability. Will make NPO with IVF. Will defer magnesium at this time as I do not think patient is making cervical change and is not uncomfortable. If that changes, will give bolus of magneisum sulfate for neuroprotection. Afebrile. Will advance diet in morning if no futher calls on pain. Keep in CEFM. Savanah Duarte, 03/14/2024 4:09 AM Normal [facility] Progress Note Temperature of 100.4 F noted last night. Night team was not alerted. Repeat this AM afebrile at 97.9F. Patient remains non-tachycardic and NT. Fundus nontender on exam. SSE performed with Dr. Au at bedside. Noted to have normal appearing cervix with no mucopurulent discharge noted. Clear amniotic fluid noted. Plan for continued vitals and rescue steroids at this time. Defer magnesium pending vitals, FHT, and contractions. Dr. Au reviewed and patient updated. Visit Vitals BP 102/74 Pulse 87 Temp 36.6 ?C (97.9 ?F) (Oral) Resp 16 Normal [facility] Progress Note ---- -------- Attestation signed by Christiano Au MD at 03/13/2024 1:32 PM (Updated) I independently saw and evaluated the patient. I agree with the findings and plan of care as documented in the resident's note. Team not notified of temporal temp of 100.4 overnight by RN, patient denies any signs or symptoms of chorio 28 yr old at 30 4/7 GA with the following: PPPROM/anhydramnios temporal temp overnight this am afebrile and I was in attendance for pelvic exam today, normal mucous non-purulent discharge cervix closed and NT abdomen noted. Cat 1 tracing no maternal or tachycardia. S/p NICU consult yesterday . Completed latency ABX. She has no current signs or symptoms of chorioamnionitis but will continue to follow extremely closely and we also talked about oral temps only and for the team to be notified for any temp > 100.4 Understands for breech presentation if labor or bleeding GDMA1 continued monitoring of BGT AND WILL GIVE rBMZ,may need insulin transiently if BGT > 180 History of UTI concerns negative culture will stop macrobid Prematurity BMZ on 03/06 and 03/07 will administer rBMZ and hold on magnesium for neuroprotection until delivery seems imminent Ongoing IP management for PPROM, s/p NICU consultation. Candidate for flu vaccine and Tdap. Will watch closely for labor signs and symptoms no signs of infection. Primary patient of Edouard Paulson/Prachi in [place]. Alerted her RN today to continue temp every 4 hour and to utilize oral temps only. Will call if temp > 100.4 any signs of labor or concerns for tachycardia. All of this was reiterated to the nursing staff today I spent 45 minutes in the visit today on the floor reviewing the chart, discussing the case with the residency staff and nursing Christiano Au MD -------- Maternal Medicine Service Resident Progress Note 03/13/2024 5:47 AM 03/06/2024 Hospital Day: 8 Jose Edward, 28 y.o. 30w4d Patient has been seen and examined. Patient has no concerns. She reports no pain, cramping, or contractions. She continues to leak clear and occasional pink tinged fluid. No fevers or chills. Positive movement Negative vaginal bleeding Positive LOF Negative Contractions Vitals: 03/12/24 1323 03/12/24 1641 03/12/24 1945 03/13/24 0126 BP: 109/78 105/75 107/73 98/64 Pulse: 85 94 85 88 Resp: 18 18 16 18 Temp: 36.3 ?C (97.3 ?F) 36.6 ?C (97.9 ?F) 36.9 ?C (98.5 ?F) 38 ?C (100.4 ?F) TempSrc: Temporal Temporal Temporal Temporal SpO2: 97% 97% 97% 97% Weight: Height: FHT: 150, moderate variability Accels: present Decels: absent Contractions: none Physical Exam: Gen: NAD, appears comfortable sitting up in chair HEENT: Normocephalic, Atraumatic Resp: Equal chest rise bilaterally, no additional work of breathing noted Abd: soft, gravid, NTND, no rebound, no guarding. No fundal tenderness Ext: No LE edema, no calf tenderness or swelling Medications: Current Facility-Administered Medications Medication Dose Route Frequency Provider Last Rate Last Admin calcium gluconate 10 % injection 1 g 1 g IntraVENous PRN Dali Hall MD dextrose 5 % infusion 100 mL/hr IntraVENous PRN Keiry Boles, DO dextrose 50 % solution 12.5 g 12.5 g IntraVENous PRN Keiry Boles, DO glucagon (human recombinant) injection 1 mg 1 mg IntraMUSCular PRN Keiry Boles, DO glucose oral gel 15 g 15 g Oral PRN Keiry Boles, DO ondansetron ODT (Zofran-ODT) disintegrating tablet 4 mg 4 mg Oral q8h PRN Dali Hall MD Or ondansetron (Zofran) injection 4 mg 4 mg IntraVENous q6h PRN Dali Hall MD pantoprazole (ProtoNix) EC tablet 40 mg 40 mg Oral qAM AC Dali Hall MD 40 mg at 03/12/24 0602 polyethylene glycol (PEG) 3350 (Miralax) packet 17 g 17 g Oral Daily PRN Dali Hall MD vitamin tablet 1 tablet Oral Daily Dali Hall MD 1 tablet at 03/12/24 0957 sodium chloride 0.9 % infusion 5-250 mL/hr IntraVENous PRN Keiry Boles, DO sodium chloride 0.9% (NS) flush 5-40 mL 5-40 mL IntraVENous q12h Keiry Schcarolyneper, DO 10 mL at 03/12/24 2043 sodium chloride 0.9% (NS) flush 5-40 mL 5-40 mL IntraVENous PRN Keiry Schlieper, DO Assessment/Plan: Jose Edward is a 28 y.o. female 30w4d Anhydramnios PPROM - Patient presented with LOF for about 3 weeks; US at outside facility showed anhydramnios; ROM rule out was deferred in [place] secondary to blood noted; transported to [facility] - in triage, SSE showed gross rupture of membranes with nitrazine positive, ferning negative and visually closed - Admitted for further observation with latency antibiotics and steroids - Plan for delivery at 34 weeks or if indicated sooner for labor, infection, or N (more content not included)... [facility] Consulton 03-12-2024 Consult Consult by Neonatology Request by OB: Dr. Au Reason for Consult: PPROM, currently 30wks GA (?ROM x 3 weeks) Maternal History and current problem: PPROM, GDMA1, endometriosis Significant history: above Medications: latency atbx, mag Betamethasone given: 03/06- Labs: Blood type: O+ Antibody: neg GBS: neg Hepatitis B Ag: RPR: Rubella: HIV: Hepatitis C: GC/CT: neg HSV history: CF: Glucose challenge test: GMA1 Present for Consult: Mom, FOB by phone Baby Sex: male Baby Name: Josue US findings: breech, anhydramnios EFW: 1412g at 29+5 I discussed: Survival statistics Delivery room management: Delayed cord clamping, possible need for CPAP, Oxygen, intubation and surfactant. IV access, possible need for advanced resuscitation, possible need for umbilical lines. Baby is a full resuscitation. Respiratory distress syndrome, risk of pulmonary hypoplasia given PPROM since ?27wks Feeding with NG tube and benefit of MBM. Mom plans on providing MBM. Fortification of MBM. Feeding readiness and growth expectations, Risk of Necrotizing enterocolitis Jaundice and phototherapy Apnea of prematurity and caffeine Possible need for transfusion Heart Murmur: PDA Neurodevelopmental Outcome and Risk: IVH Retinopathy of prematurity Hearing problems Risk of infection- early and late onset Skin to skin opportunities Physiologic criteria for discharge and timing of discharge estimate from NICU Potential need for transfer to [facility] if needs esclation of care, based on a variety of factors. Handouts given. No further questions. A/P: Patient is a 28 Year old G1 P 0 At 30 Weeks 3 Days by IVF dating With PPROM 1. Current Management per OB 2. NICU to attend delivery 3. Call NICU if further questions. Family lives approx 1.5hrs away. Mom notified me she has already submitted an application to [facility] in order to be closer for baby Josue after she delivers/is discharged. Paola Cole MD Normal [facility] [employer] [facility] Laboratory - Chemistry and C hemistry - challengeon 03-12-2024 Glucose [Mass/Vol] 163 mg/dL High 70 - 100 mg/dL [facility] Glucose [Mass/Vol] 128 mg/dL High 70 - 100 mg/dL [facility] [employer] Glucose [Mass/Vol] 134 mg/dL High 70 - 100 mg/dL [facility] Glucose [Mass/Vol] 104 mg/dL High 70 - 100 mg/dL [facility] [employer] No Panel Informationon 03-12 Interpretation and review of laboratory results Abnormal [facility] Performed by: [facility] [employer] [facility], [address] [place] [address] CLIA ID: [id number] [facility] [employer] [facility] Interpretation and review of laboratory results Abnormal [facility] Performed by: [facility], [address] [place] [address] CLIA ID: [id number] [facility] [employer] [facility] Interpretation and review of laboratory results Abnormal [facility] Performed by: [facility] [employer] [facility], [address] [place] [address] CLIA ID: [id number] [facility] [employer] [facility] Interpretation and review of laboratory results Abnormal [facility] Performed by: [facility] [employer] [facility], [address] [place] [address], [facility] [address] CLIA ID: [id number] [facility] [employer] [facility] Progress Noteon 03-12-2024 Progress Note ---- -------- Attestation signed by Christiano Au MD at 03/12/2024 11:48 AM I independently saw and evaluated the patient. I agree with the findings and plan of care as documented in the resident's note. No complaints up in chair no contractions or bleeding feeling well 28 yr old at 30 3/7 GA with the following: PPPROM/anhydramnios continued conservative expectant management NICU consulted and will make sure performed today. Received her latency with Amp/Amox. Understands for breech presentation if labor or bleeding GDMA1 continued monitoring of BGT History of UTI concerns negative culture will stop macrobid Prematurity BMZ on 03/06 and 03/07 candidate for rBMZ and magnesium for neuroprotection if delivery imminent Ongoing IP management for PPROM, planned NICU consultation today. Will watch closely for labor signs and symptoms no signs of infection. Primary patient of Edouard Khurram/Prachi Falcon spent 30 minutes in the visit today on the floor reviewing the chart, discussing the case with the residency staff and nursing Christiano Au MD -------- Maternal Medicine Service Resident Progress Note 03/12/2024 6:14 AM 03/06/2024 Hospital Day: 7 Jose Wagner, 28 y.o. 30w3d Patient has been seen and examined. Patient reports no pelvic pressure, pain, or contractions. Yesterday she noticed light vaginal spotting but none today. She continues to leak clear fluid. No fevers or chills. She has no questions or concerns. Positive movement Negative vaginal bleeding Positive LOF Negative Contractions Vitals: 03/11/24 0602 03/11/24 0803 03/11/24 1300 03/11/241956 BP: 110/72 109/73 117/76 Pulse: 84 97 82 Resp: 18 Temp: 36.1 ?C (97 ?F) 36.4 ?C (97.6 ?F) 36.7 ?C (98.1 ?F) 36.9 ?C (98.5 ?F) TempSrc: Temporal Temporal Temporal SpO2: 96% 95% 96% Weight: Height: FHT: 150, moderate variability Accels: present Decels: absent Contractions: none Physical Exam: Gen: NAD, sitting up in chair HEENT: Normocephalic, Atraumatic Resp: Equal chest rise bilaterally, no extra work of breathing noted Abd: soft, gravid, NTND, no rebound, no guarding. No fundal tenderness Ext: No LE edema, no calf tenderness or swelling Medications: Current Facility-Administered Medications Medication Dose Route Frequency Provider Last Rate Last Admin amoxicillin (Amoxil) capsule 500 mg 500 mg Oral 3 times per day Juliana Nguyen DO 500 mg at 03/11/24 2359 calcium gluconate 10 % injection 1 g 1 g IntraVENous PRN Dali Hall MD dextrose 5 % infusion 100 mL/hr IntraVENous PRN Keiry Boles, DO dextrose 50 % solution 12.5 g 12.5 g IntraVENous PRN Keiry Boles, DO glucagon (human recombinant) injection 1 mg 1 mg IntraMUSCular PRN Keiry Boles, DO glucose oral gel 15 g 15 g Oral PRN Keiry Boles, DO nitrofurantoin (macrocrystal-monohydrat e) (Macrobid) capsule 100 mg 100 mg Oral 2 times per day Juliana Nguyen DO 100 mg at 03/11/24 2100 ondansetron ODT (Zofran-ODT) disintegrating tablet 4 mg 4 mg Oral q8h PRN Dali Hall MD Or ondansetron (Zofran) injection 4 mg 4 mg IntraVENous q6h PRN Dali Hall MD pantoprazole (ProtoNix) EC tablet 40 mg 40 mg Oral qAM AC Dali Hall MD 40 mg at 03/12/24 0602 polyethylene glycol (PEG) 3350 (Miralax) packet 17 g 17 g Oral Daily PRN Dali Hall MD vitamin tablet 1 tablet Oral Daily Dali Hall MD 1 tablet at 03/11/24 0850 Assessment/Plan: Jose Edward is a 28 y.o. female 30w3d Anhydramnios PPROM - Patient presented with LOF for about 3 weeks; US at outside facility showed anhydramnios; ROM rule out was deferred in [place] secondary to blood noted; transported to [facility] - in triage, SSE showed gross rupture of membranes with nitrazine positive, ferning negative and visually closed - Admitted for further observation with latency antibiotics and steroids - Plan for delivery at 34 weeks or if indicated sooner for labor, infection, or NRFS - Latency Abx ordered, allergy to azithromycin so received ampicillin - Ampicillin course finished, will carry out PO amoxicillin for rest of course - S/p BMZ x 2 03/06-03/07 - S/p Magnesium sulfate for neuroprotection - Growth US 03/07 EFW 1412g 49%tile, AC 45%tile, LEONELA 1.1cm with no 2x2 pocket, BPP 02/09 for fluid - NICU consulted - Patient had repeat SSE 03/11 because she felt increased pressure, noted to be visually closed - Patient reports she was comfortable overnight with no contractions - Patient is chata breech and will be for CD if for delivery - Twice weekly BPP, most recent BPP (03/11) was 12/08 for fluid GDMA1 - Carb-controlled diet - Dexcom in place, share code [id number] - Continue to monitor BGTs fasting and 1 codi (more content not included)... Normal [facility] 42on 03-11-2024 42 In to visit patient-expected with NICU admission. Reviewed importance of mothers own milk for baby and physiology of milk production. Discussed need for early and frequent hand expression and pumping. Importance of skin to skin when baby is stable. Encouraged manual expression of colostrum onto swabs, while in recovery room. Encouraged patient to ask RN for electric pump on admission to M/B unit. Discussed options for home going pump; pt has [employer] insurance. Availability of LC for NICU and reviewed. [facility] handout Your NICU Baby given and reviewed. Encouraged to watch videos from [employer] to support her goals. Resource numbers given for [facility] dept and [facility] dept. Encouraged to call with any questions / concerns. Pt receptive to my visit and education. Denies questions at this time. Normal [facility] 03-11-2024 [facility] Hospital day 6 at 30 /2 weeks. Anhydramnios PPROM at 30/2 weeks referral. Voiced no needs or concerns. Normal [facility] Laboratory - Chemistry and C hemistry - challengeon 03-11-2024 Glucose [Mass/Vol] 104 mg/dL High 70 - 100 mg/dL [facility] Glucose [Mass/Vol] 91 mg/dL 70 - 100 mg/dL [facility] Glucose [Mass/Vol] 99 mg/dL 70 - 100 mg/dL [facility] [employer] Glucose [Mass/Vol] 88 mg/dL 70 - 100 mg/dL [facility] No Panel Informationon 03-11 Interpretation and review of laboratory results Abnormal [facility] Performed by: [employer] [facility], [address] [place] [address], [facility] [address] CLIA ID: [id number] [facility] [employer] Interpretation and review of laboratory results Normal [facility] Performed by: [employer] [facility], [address] [place] [address], [facility] [address] CLIA ID: [id number] [employer] [employer] Interpretation and review of laboratory results Normal [facility] Performed by: [employer] [facility], [address] [place] [address], [facility] [address] CLIA ID: [id number] [employer] [employer] - Allen live intrauterine at 30w 2d in breech presentation - The amniotic fluid index is 1.3cm. There is no 2x2 pocket of fluid. - Biophysical profile, 12/08. (-2 for fluid) [facility] OBSTETRICS REPORT (Signed Final 03/11/2024 09:42 am) PATIENT INFO: ID #: [id number] : [birth year] (28 yrs)(F) Name: JOSE EDWARD Visit Date: 03/11/2024 09:07 am PERFORMED BY: Attending: Saumya Mancia Performed By: Jaquan Aguilar Referred By: JULIANA NGUYEN Location: [facility] IP Visit Type: Inpatient - Hospital SERVICE(S) PROVIDED: [facility] w/out NST [address] INDICATIONS: Oligohydramnios, third trimester, not O41.03X0 applicable or unspecified VITAL SIGNS: Weight (lb): 185 Height: 5'2 BMI: 33.83 EVALUATION: Num Of Fetuses: 1 Heart Rate(bpm): 161 Cardiac Activity: Regular rhythm Lie: Longitudinal Presentation: Breech Placenta: Posterior Amniotic Fluid LEONELA FV: Oligohydramnios LEONELA Sum(cm) %Tile Largest Pocket(cm) 1.3 < 3 1.3 RUQ(cm) 1.3 BIOPHYSICAL EVALUATION: Amniotic F.V: Pocket < 2 cm two F. Tone: Observed planes F. Movement: Observed Score: 6/8 F. Breathing: Observed BIOMETRY: GESTATIONAL AGE: Clinical GERALD: 30w 2d GERALD: 05/18/24 Best: 30w 2d Det. By: Clinical GERALD GERALD: 05/18/24 RECOMMENDATIONS: See inpatient chart. Correlation with NST Ultrasound is not diagnostic of chromosomal aneuploidy and does not detect all subtle defects. Normal ultrasound findings do not guarantee normal outcomes. Saumya Mancia Electronically Signed Final Report 03/11/2024 09:42 am [facility] Saumya Mancia MD - 03/11/2024 OBSTETRICS REPORT (Signed Final 03/11/2024 09:42 am) PATIENT INFO: ID #: [id number] : [birth year] (28 yrs)(F) Name: JOSE EDWARD Visit Date: 03/11/2024 09:07 am PERFORMED BY: Attending: Saumya Mancia Performed By: Jaquan Aguilar Referred By: JULIANA NGUYEN Location: [facility] IP Visit Type: Inpatient - Hospital SERVICE(S) PROVIDED: [facility] w/out NST [address] INDICATIONS: Oligohydramnios, third trimester, not O41.03X0 applicable or unspecified VITAL SIGNS: Weight (lb): 185 Height: 5'2 BMI: 33.83 EVALUATION: Num Of Fetuses: 1 Heart Rate(bpm): 161 Cardiac Activity: Regular rhythm Lie: Longitudinal Presentation: Breech Placenta: Posterior Amniotic Fluid LEONELA FV: Oligohydramnios LEONELA Sum(cm) %Tile Largest Pocket(cm) 1.3 < 3 1.3 RUQ(cm) 1.3 BIOPHYSICAL EVALUATION: Amniotic F.V: Pocket < 2 cm two F. Tone: Observed planes F. Movement: Observed Score: 12/08 F. Breathing: Observed BIOMETRY: GESTATIONAL AGE: Clinical GERALD: 30w 2d GERALD: 05/18/24 Best: 30w 2d Det. By: Clinical GERALD GERALD: 05/18/24 RECOMMENDATIONS: See inpatient chart. Correlation with NST Ultrasound is not diagnostic of chromosomal aneuploidy and does not detect all subtle defects. Normal ultrasound findings do not guarantee normal outcomes. Saumya Mancia Electronically Signed Final Report 03/11/2024 09:42 am IMPRESSION: - Allen live intrauterine at 30w 2d in breech presentation - The amniotic fluid index is 1.3cm. There is no 2x2 pocket of fluid. - Biophysical profile, 12/08. (-2 for fluid) [facility] Radiology Study observation (narrative) [facility] Interpretation and review of laboratory results Normal [facility]formed by: [facility], [address] [place] [address] [place] [address] CLIA ID: [id number] [facility] Progress Noteon 03-11-2024 Progress Note Rn notified me that patient having contractions, feeling some pressure. SSE showed closed cervix, no bleeding noted on exam, posterior cervix. Cat I FHT. Will continue to monitor. ANA TOVAR, DO 03/11/2024 12:28 PM Normal [facility] Progress Note ---- -------- Attestation signed by Saumya Mancia MD at 03/11/2024 2:51 PM MFM ATTENDING I have personally obtained a history and examined the patient with Dr. Nguyen. I agree with the assessment and plan as documented in the resident's note. The patient is a 28 y.o. 30w2d now HD#6, admitted for PPROM Pertinent Background: Transferred from [place] for PPROM. Gross rupture confirmed on admit and anhydramnios at OSH ultrasound. Given BMZ, Mag for TOBACCO HANGER and latency antibiotics (amox only due to Severe Zmax allergy) Has new GDMA1 Since admission she has remained stable without signs of labor or infection. Overnight has mild spotting and this morning had some pressure and contractions. SSE was stable and on rounds, the patient is feeling better without complaints. Vitals: 03/11/24 1300 BP: Pulse: Resp: Temp: 36.7 ?C (98.1 ?F) SpO2: Alert and oriented, NAD Gravid nontender abdomen Current Monitoring Plan: 1hr TID NST NST: Reactive reassuring Ultrasound: (03/07) 1412g (49%), Chata Breech, LEONELA 1cm, BPP 6/8 for -2 fluid- NST reactive 03/11/24: BPP 12/08 for fluid (NST reactive- 02/09), LEONELA 1.8cm, Breech Lab Results Component Value Date WBC 15.2 (H) 03/06/2024 HGB 14.1 03/06/2024 HCT 41.8 03/06/2024 MCV 90.1 03/06/2024 PLT 311 03/06/2024 Plan: On admit I extensively on the diagnosis of PPROM, the potential risks including labor, infection, placental abruption and cord compression with NRFS resulting in possible need for emergent delivery. We discussed the rationale for latency antibiotics, BMZ for lung maturity and magnesium for TOBACCO HANGER. We discussed the indication for delivery with any signs of infection. We reviewed the recommendation for inpatient admission until delivery and plan for delivery at 34 weeks unless indicated sooner for labor, infection or NRFS. All questions answered. Latency antibiotics day / S/p BMZ 03/06- S/p Mag S/p NICU consult 1hr TID testing Glucose patterning for GDMA1- overall ok on diet alone Understands baby in breech presentation and would be for if delivered 25 minutes spent in total floor time today for review of records, patient interview and exam, documentation and coordination of care with care teams. Saumya Mancia MD -------- Maternal Medicine Service Resident Progress Note 03/11/2024 6:03 AM 03/06/2024 Hospital Day: 6 Jose Edward, 28 y.o. 30w2d Patient has been seen and examined. Patient reports light vaginal spotting overnight but has not noticed any additional bleeding this morning. She reports no pelvic pressure, pain, or cramping. She has intermittent leakage of clear fluid. No fevers or chills. She has no other questions or concerns. Positive movement Negative vaginal bleeding Positive LOF Negative Contractions Vitals: 03/10/24 0839 03/10/24 2059 03/11/24 0022 03/11/24 0602 BP: 107/69 123/80 127/81 110/72 Pulse: 86 79 85 84 Resp: Temp: 36.3 ?C (97.4 ?F) 36.7 ?C (98.1 ?F) 36.9 ?C (98.5 ?F) 36.1 ?C (97 ?F) TempSrc: Oral Oral Temporal SpO2: 99% 99% 96% Weight: Height: FHT: 150, moderate variability Accels: present Decels: absent Contractions: rare Physical Exam: Gen: NAD, sitting up in chair HEENT: Normocephalic, Atraumatic Resp: Equal chest rise bilaterally, no extra work of breathing Abd: soft, gravid, NTND, no rebound, no guarding. No fundal tenderness Ext: No LE edema, no calf tenderness or swelling Medications: Current Facility-Administered Medications Medication Dose Route Frequency Provider Last Rate Last Admin amoxicillin (Amoxil) capsule 500 mg 500 mg Oral 3 times per day Juliana Nguyen DO 500 mg at 03/11/24 0024 calcium gluconate 10 % injection 1 g 1 g IntraVENous PRN Dali Hall MD dextrose 5 % infusion 100 mL/hr IntraVENous PRN Keiry Boles, DO dextrose 50 % solution 12.5 g 12.5 g IntraVENous PRN Keiry Boles, DO glucagon (human recombinant) injection 1 mg 1 mg IntraMUSCular PRN Keiry Boles, DO glucose oral gel 15 g 15 g Oral PRN Keiry Boles, DO lactated ringers infusion 125 mL/hr IntraVENous Continuous Dali Hall MD 125 mL/hr at 03/06/24 1730 125 mL/hr at 03/06/24 1730 nitrofurantoin (macrocrystal-monohydrat e) (Macrobid) capsule 100 mg 100 mg Oral 2 times per day Juliana Nguyen DO 100 mg at 03/10/24 210 ondansetron ODT (Zofran-ODT) disintegrating tablet 4 mg 4 mg Oral q8h PRN Dlai Hall MD Or ondansetron (Zofran) injection 4 mg 4 mg IntraVENous q6h PRN Dali Hall MD pantoprazole (ProtoNix) EC tablet 40 mg 40 mg Oral qAM AC Dali Hall MD 40 mg at 03/10/24 0704 polyethylene glycol (PEG) 3350 (Miralax) packet 17 g 17 g Oral Daily PRN Dali Hall MD prenata (more content not included)... [facility] Progress Note Notified by RN of bleeding patient noticed while wiping and reports of abdominal tightening. FHT Cat I. No CTX on toco. FHT Cat I. SSE performed, cervix visually 1 cm, unchanged from prior exams. No bleeding noted, friability noted on os. Patient placed on monitor, IVF bolus given. Will continue to monitor closely. [facility] US BIOPHYSICAL PROFILE WO NON STRESS TESTINGon 03-11-2024 US BIOPHYSICAL PROFILE WO NON STRESS TESTING OBSTETRICS REPORT (Signed Final 03/11/2024 09:42 am) PATIENT INFO: ID #: [id number] : [birth year] (28 yrs)(F) Name: JOSE EDWARD Visit Date: 03/11/2024 09:07 am PERFORMED BY: Attending: Saumya Mancia Performed By: Jaquan Aguilar Referred By: JULIANA NGUYEN Location: [facility] IP Visit Type: Inpatient - Hospital SERVICE(S) PROVIDED: [facility] w/out NST [id number] INDICATIONS: Oligohydramnios, third trimester, not O41.03X0 applicable or unspecified VITAL SIGNS: Weight (lb): 185 Height: 5'2 BMI: 33.83 EVALUATION: Num Of Fetuses: 1 Heart Rate(bpm): 161 Cardiac Activity: Regular rhythm Lie: Longitudinal Presentation: Breech Placenta: Posterior Amniotic Fluid LEONELA FV: Oligohydramnios LEONELA Sum(cm) %Tile Largest Pocket(cm) 1.3 < 3 1.3 RUQ(cm) 1.3 BIOPHYSICAL EVALUATION: Amniotic F.V: Pocket < 2 cm two F. Tone: Observed planes F. Movement: Observed Score: 8 F. Breathing: Observed BIOMETRY: GESTATIONAL AGE: Clinical GERALD: 30w 2d GERALD: 05/18/24 Best: 30w 2d Det. By: Clinical GERALD GERALD: 05/18/24 RECOMMENDATIONS: See inpatient chart. Correlation with NST Ultrasound is not diagnostic of chromosomal aneuploidy and does not detect all subtle defects. Normal ultrasound findings do not guarantee normal outcomes. Saumya Mancia Electronically Signed Final Report 03/11/2024 09:42 am IMPRESSION: - Allen live intrauterine at 30w 2d in breech presentation - The amniotic fluid index is 1.3cm. There is no 2x2 pocket of fluid. - Biophysical profile, 12/08. (-2 for fluid) Normal [facility] BLOOD TYPE AND SCREEN GELon 03-10-2024 ABO GROUPING O Normal [facility] Comment on above: Performed By: #### L [id number] ####Brands Editor: GYPSY DAY ([id number])[facility]LOOD [facility] ([facility])[address] [place] [address] RH TYPE IN BLOOD Positive Normal [facility] Comment on above: Performed By: #### L [id number] ####Brands Editor: GYPSY DAY ([phone])[facility] ([facility])[address] [place] [address] Blood type and Crossmatch pa phill (Bld)on 03-10-2024 ABO group Nom (Bld) O [facility] Blood group antibody screen GEL Ql Negative [facility] [employer] D Ag Ql (RBC) [facility] Laboratory - Chemistry and C hemistry - challengeon 03-10-2024 Glucose [Mass/Vol] 135 mg/dL High 70 - 100 mg/dL [facility] Glucose [Mass/Vol] 115 mg/dL High 70 - 100 mg/dL [facility] Glucose [Mass/Vol] 115 mg/dL High 70 - 100 mg/dL [facility] Glucose [Mass/Vol] 89 mg/dL 70 - 100 mg/dL [facility] No Panel Informationon 03-10 Interpretation and review of laboratory results Abnormal [facility] Performed by: [facility] [employer] [facility], [address] [place] [address] CLIA ID: [id number] [facility] Interpretation and review of laboratory results Abnormal [facility] Performed by: [facility], [address] [place], [place] [id number] CLIA ID: [id number] [facility] Interpretation and review of laboratory results Abnormal [facility]formed by: [facility], [address] [place] [address] 11678 CLIA ID: [id number] [facility] Interpretation and review of laboratory results Normal [facility] Performed by: [facility], [address] [place] [address] CLIA ID: [id number] [facility] Progress Noteon 03-10-2024 Progress Note ---- -------- Attestation signed by Saumya Mancia MD at 03/10/2024 2:46 PM MFM ATTENDING I have personally obtained a history and examined the patient with Dr. Nguyen. I agree with the assessment and plan as documented in the resident's note. The patient is a 28 y.o. 30w1d now HD#5, admitted for PPROM Pertinent Background: Transferred from [place] for PPROM. Gross rupture confirmed on admit and anhydramnios at OSH ultrasound. Given BMZ, Mag for TOBACCO HANGER and latency antibiotics (amox only due to Severe Zmax allergy) Has new GDMA1 Since admission she has remained stable without signs of labor or infection. Today she is without any complaints and reports good movement. She denies fevers, chills, contractions and VB. Vitals: 03/10/24 0839 BP: 107/69 Pulse: 86 Resp: 16 Temp: 36.3 ?C (97.4 ?F) SpO2: Alert and oriented, NAD Gravid nontender abdomen Current Monitoring Plan: 1hr TID NST NST: Reactive reassuring Ultrasound: (03/07) 1412g (49%), Chata Breech, LEONELA 1cm, BPP 6/8 for -2 fluid- NST reactive Lab Results Component Value Date WBC 15.2 (H) 03/06/2024 HGB 14.1 03/06/2024 HCT 41.8 03/06/2024 MCV 90.1 03/06/2024 PLT 311 03/06/2024 Plan: On admit I extensively on the diagnosis of PPROM, the potential risks including labor, infection, placental abruption and cord compression with NRFS resulting in possible need for emergent delivery. We discussed the rationale for latency antibiotics, BMZ for lung maturity and magnesium for TOBACCO HANGER. We discussed the indication for delivery with any signs of infection. We reviewed the recommendation for inpatient admission until delivery and plan for delivery at 34 weeks unless indicated sooner for labor, infection or NRFS. All questions answered. Continue latency antibiotics for 7 days total. S/p BMZ 03/06- S/p Mag S/p NICU consult 1hr TID testing Glucose patterning for GDMA1- overall ok, had elevation postdinner yesterday- if continues will consider treatment. Understands baby in breech presentation and would be for if delivered 25 minutes spent in total floor time today for review of records, patient interview and exam, documentation and coordination of care with care teams. Saumya Mancia MD -------- Maternal Medicine Service Resident Progress Note 03/10/2024 7:11 AM 03/06/2024 Hospital Day: 5 Jose Wagner, 28 y.o. 30w1d Patient has been seen and examined. No patient complaints this AM. Fluid remains clear. Positive movement Negative vaginal bleeding Positive LOF Negative Contractions Vitals: 03/09/24 0504 03/09/24 0848 03/09/24 0849 03/09/242013 BP: 107/75 119/63 102/71 BP Location: Left arm Patient Position: Sitting Pulse: 82 98 91 Resp: 18 16 16 Temp: 36.6 ?C (97.9 ?F) 36.7 ?C (98.1 ?F) 36.7 ?C (98.1 ?F) TempSrc: Oral Temporal SpO2: 100% 96% Weight: Height: FHT: 150, moderate variability Accels: present Decels: absent Contractions: none Physical Exam: Gen: NAD HEENT: Normocephalic, Atraumatic, EOMI, MMM Resp: Increased WOB Card: Regular rate Abd: soft, gravid, NTND, no rebound, no guarding, no fundal tenderness Ext: No LE edema, no calf tenderness or swelling Medications: Current Facility-Administered Medications Medication Dose Route Frequency Provider Last Rate Last Admin amoxicillin (Amoxil) capsule 500 mg 500 mg Oral 3 times per day Juliana Nguyen, DO 500 mg at 03/10/24 07 calcium gluconate 10 % injection 1 g 1 g IntraVENous PRN Dali Hall MD dextrose 5 % infusion 100 mL/hr IntraVENous PRN Keiry Boles, DO dextrose 50 % solution 12.5 g 12.5 g IntraVENous PRN Keiry Boles, DO glucagon (human recombinant) injection 1 mg 1 mg IntraMUSCular PRN Keiry Boles, DO glucose oral gel 15 g 15 g Oral PRN Keiry Boles, DO lactated ringers infusion 125 mL/hr IntraVENous Continuous Dali Hall MD 125 mL/hr at 03/06/24 1730 125 mL/hr at 03/06/24 173 nitrofurantoin (macrocrystal-monohydrat e) (Macrobid) capsule 100 mg 100 mg Oral 2 times per day Juliana Nguyen DO 100 mg at 03/09/242015 ondansetron ODT (Zofran-ODT) disintegrating tablet 4 mg 4 mg Oral q8h PRN Dali Hall MD Or ondansetron (Zofran) injection 4 mg 4 mg IntraVENous q6h PRN Dali Hall MD pantoprazole (ProtoNix) EC tablet 40 mg 40 mg Oral qAM AC Dali Hall MD 40 mg at 03/10/24 0704 polyethylene glycol (PEG) 3350 (Miralax) packet 17 g 17 g Oral Daily PRN Dali Hall MD vitamin tablet 1 tablet Oral Daily Dali Hall MD 1 tablet at 03/09/24 0844 Assessment/Plan: Jose Edward is a 28 y.o. female 30w1d Anhydramnios PPROM - Patient reports LOF for about 3 weeks; US at outside facility showed (more content not included)... Normal [facility] [employer] [facility] Laboratory - Chemistry and C hemistry - challengeon 03-09-2024 Glucose [Mass/Vol] 177 mg/dL High 70 - 100 mg/dL [facility] Glucose [Mass/Vol] 172 mg/dL High 70 - 100 mg/dL [facility] [employer] Glucose [Mass/Vol] 94 mg/dL 70 - 100 mg/dL [facility] [employer] Glucose [Mass/Vol] 139 mg/dL High 70 - 100 mg/dL [facility] [employer] Glucose [Mass/Vol] 91 mg/dL 70 - 100 mg/dL [facility] [employer] No Panel Informationon 03-09 Interpretation and review of laboratory results Abnormal [facility] Performed by: [facility], [address] [place] [address] CLIA ID: [id number] [facility] [employer] [facility] Interpretation and review of laboratory results Abnormal [facility] Performed by: [facility], [address] [place] [address] CLIA ID: [id number] [facility] [employer] [facility] Interpretation and review of laboratory results Normal [facility] Performed by: [facility], [address] [place] [address] 33101 CLIA ID: [id number] [facility] [employer] [facility] Interpretation and review of laboratory results Abnormal [facility] Performed by: [facility], [address] [place] [address]277 CLIA ID: [id number] [facility] [employer] [facility] Interpretation and review of laboratory results Normal [facility] Performed by: [facility], [address] [place] [address] 10400 CLIA ID: [id number] [facility] [employer] Progress Noteon 03-09-2024 Progress Note ---- -------- Attestation signed by Saumya Mancia MD at 03/09/2024 10:57 AM MFM ATTENDING I have personally obtained a history and examined the patient with Dr. Nguyen. I agree with the assessment and plan as documented in the resident's note. The patient is a 28 y.o. 30w0d now HD#4, admitted for PPROM Pertinent Background: Transferred from [place] for PPROM. Gross rupture confirmed on admit and anhydramnios at OSH ultrasound. Given BMZ, Mag for TOBACCO HANGER and latency antibiotics (amox only due to Severe Zmax allergy) Has new GDMA1 Since admission she has remained stable without signs of labor or infection. Today she is without any complaints and reports good movement. She denies fevers, chills, contractions and VB. Vitals: 03/09/24 0849 BP: 119/63 Pulse: 98 Resp: Temp: SpO2: Alert and oriented, NAD Gravid nontender abdomen Current Monitoring Plan: 1hr TID NST NST: Reactive reassuring Ultrasound: (03/07) 1412g (49%), Ch[place] Breech, LEONELA 1cm, BPP 6/8 for -2 fluid- NST reactive Lab Results Component Value Date WBC 15.2 (H) 03/06/2024 HGB 14.1 03/06/2024 HCT 41.8 03/06/2024 MCV 90.1 03/06/2024 PLT 311 03/06/2024 Plan: On admit I extensively on the diagnosis of PPROM, the potential risks including labor, infection, placental abruption and cord compression with NRFS resulting in possible need for emergent delivery. We discussed the rationale for latency antibiotics, BMZ for lung maturity and magnesium for TOBACCO HANGER. We discussed the indication for delivery with any signs of infection. We reviewed the recommendation for inpatient admission until delivery and plan for delivery at 34 weeks unless indicated sooner for labor, infection or NRFS. All questions answered. Continue latency antibiotics for 7 days total. S/p BMZ 03/06- S/p Mag S/p NICU consult 1hr TID testing Glucose patterning for GDMA1 Add omeprazole for heartburn (patient takes regularly at home) Understands baby in breech presentation and would be for if delivered 25 minutes spent in total floor time today for review of records, patient interview and exam, documentation and coordination of care with care teams. Saumya Mancia MD -------- Maternal Medicine Service Resident Progress Note 03/09/2024 5:58 AM 03/06/2024 Hospital Day: 4 Jose Thomasezio, 28 y.o. 30w0d Patient has been seen and examined. Pt is doing well. Reports no contractions overnight and slept well. Endorses continued leakage of fluid. Denies fevers/chills. Positive movement Negative vaginal bleeding Positive LOF Negative Contractions Vitals: 03/08/24 1645 03/08/24 2122 03/09/24 0045 03/09/24 0504 BP: 108/68 113/71 110/68 107/75 Pulse: 90 88 86 82 Resp: 18 18 18 Temp: 36.6 ?C (97.9 ?F) 36.6 ?C (97.9 ?F) 36.7 ?C (98 ?F) 36.6 ?C (97.9 ?F) TempSrc: Oral Oral Oral Oral SpO2: 98% 99% 100% Weight: Height: FHT: 140, moderate variability Accels: present Decels: absent Contractions: none Physical Exam: Gen: NAD HEENT: Normocephalic, Atraumatic, EOMI, MMM Resp: Equal chest rise bilaterally Abd: soft, gravid, NTND, no rebound, no guarding. No fundal tenderness Ext: No LE edema, no calf tenderness or swelling Medications: Current Facility-Administered Medications Medication Dose Route Frequency Provider Last Rate Last Admin amoxicillin (Amoxil) capsule 500 mg 500 mg Oral 3 times per day Juliana Nguyen, DO 500 mg at 03/08/242115 calcium gluconate 10 % injection 1 g 1 g IntraVENous PRN Dali Hall MD dextrose 5 % infusion 100 mL/hr IntraVENous PRN Keiry Maneper, DO dextrose 50 % solution 12.5 g 12.5 g IntraVENous PRN Keiry Boles, DO famotidine (Pepcid) tablet 20 mg 20 mg Oral BID Ehsan Gonsalez MD 20 mg at 03/08/24 173 Or famotidine (Pepcid) 20 mg in sodium chloride (PF) 0.9 % 10 mL injection 20 mg IntraVENous BID Ehsan Gonsalez MD 20 mg at 03/08/242115 glucagon (human recombinant) injection 1 mg 1 mg IntraMUSCular PRN Keiry Maneper, DO glucose oral gel 15 g 15 g Oral PRN Keiry Boles, DO lactated ringers infusion 125 mL/hr IntraVENous Continuous Dali Hall MD 125 mL/hr at 03/06/24 1730 125 mL/hr at 03/06/24 173 nitrofurantoin (macrocrystal-monohydrat e) (Macrobid) capsule 100 mg 100 mg Oral 2 times per day Juliana Nguyen DO 100 mg at 03/08/242115 ondansetron ODT (Zofran-ODT) disintegrating tablet 4 mg 4 mg Oral q8h PRN Dali Hall MD Or ondansetron (Zofran) injection 4 mg 4 mg IntraVENous q6h PRN Dali Hall MD polyethylene glycol (PEG) 3350 (Miralax) packet 17 g 17 g Oral Daily PRN Dali Hall MD vitamin tablet 1 tablet Oral Daily Dali Hall MD 1 tablet at 03/08/24 1011 Assessme (more content not included)... Normal [facility] Bacteria identified Cx Nom ( U)Ordered By: Karyn Ramírez on 03-08-2024 Interpretation and review of laboratory results [facility] Hospital Day 3; 29/6 weeks today; No concerns at this time; Pt states she is interested in the possibility of staying at the [facility] after delivery due to living approx. 2 hours away; patient and provided background check paperwork; will be faxed to [facility] referral line; Will consult for patient as pt would like to see prior to delivery [facility] Laboratory - Chemistry and C hemistry - challengeon 03-08-2024 Glucose [Mass/Vol] 143 mg/dL High 70 - 100 mg/dL [facility] Glucose [Mass/Vol] 171 mg/dL High 70 - 100 mg/dL [facility] Glucose [Mass/Vol] 125 mg/dL High 70 - 100 mg/dL [facility] Glucose [Mass/Vol] 133 mg/dL High 70 - 100 mg/dL [facility] Laboratory - Microbiology an d Antimicrobial susceptibilityOrdered By: Karyn Ramírez on 03-08-2024 Bacteria identified Cx Nom (U) No growth (<1,000 CFU/mL) [facility] No Panel Informationon 03-08 Interpretation and review of laboratory results Abnormal [facility] Performed by: [facility] [employer] [facility], [address] [place] [address]85 CLIA ID: [id number] [facility] Interpretation and review of laboratory results Abnormal [facility] Performed by: [facility], [address] [place] [address] 06345 CLIA ID: [id number] [facility] Interpretation and review of laboratory results Abnormal [facility]formed by: [facility], [address] [place] [address] 11632 CLIA ID: [id number] [facility] [employer] [facility] Interpretation and review of laboratory results Abnormal [facility] Performed by: [facility], [address] [place] [address] 16786 CLIA ID: [id number] [facility] [employer] [facility] Progress Noteon 03-08-2024 Progress Note Nutrition rescreen completed. Patient referred to the Dietitian due to gestational diabetes. YUN Pineda Normal [facility] Progress Note ---- -------- Attestation signed by Saumya Manica MD at 03/08/2024 5:04 PM (Updated) [facility] ATTENDING I have personally obtained a history and examined the patient with Dr. Nguyen. I agree with the assessment and plan as documented in the resident's note. The patient is a 28 y.o. 29w6d now HD#3, admitted for PPROM Pertinent Background: Transferred overnight for PPROM. Gross rupture confirmed on admit and anhydramnios at OSH ultrasound. Given BMZ, Mag for TOBACCO HANGER and latency antibiotics (amox only due to Severe Zmax allergy) Has new GDMA1 Today she is without any complaints and reports good movement. She denies fevers, chills, contractions and VB. Vitals: 03/08/24 1645 BP: 108/68 Pulse: 90 Resp: Temp: 36.6 ?C (97.9 ?F) SpO2: 98% Alert and oriented, NAD Gravid nontender abdomen Current Monitoring Plan: CEFM NST NST: Reactive reassuring Ultrasound: (03/07) 1412g (49%), Ch[place] Breech, LEONELA 1cm, BPP 6/8 for -2 fluid- NST reactive Lab Results Component Value Date WBC 15.2 (H) 03/06/2024 HGB 14.1 03/06/2024 HCT 41.8 03/06/2024 MCV 90.1 03/06/2024 PLT 311 03/06/2024 Plan: On admit I extensively on the diagnosis of PPROM, the potential risks including labor, infection, placental abruption and cord compression with NRFS resulting in possible need for emergent delivery. We discussed the rationale for latency antibiotics, BMZ for lung maturity and magnesium for TOBACCO HANGER. We discussed the indication for delivery with any signs of infection. We reviewed the recommendation for inpatient admission until delivery and plan for delivery at 34 weeks unless indicated sooner for labor, infection or NRFS. All questions answered. Continue latency antibiotics for 7 days total. S/p BMZ 03/06-5 S/p Mag S/p NICU consult Ok for deescalate to 1hr TID testing Understands baby in breech presentation and would be for if delivered 35 minutes spent in total floor time today for review of records, patient interview and exam, documentation and coordination of care with care teams. Saumya Mancia MD -------- Maternal Medicine Service Resident Progress Note 03/08/2024 5:51 AM 03/06/2024 Hospital Day: 3 Jose Edward, 28 y.o. 29w6d Patient has been seen and examined. Pt is doing well this AM. She does report more pressure and cramping than prior, however, reports she is comfortable and does not went a SSE at this time. Reports continued leakage of fluid, but good movement. Positive movement Negative vaginal bleeding Positive LOF Positive Contractions Vitals: 03/07/24 1245 03/07/24 1631 03/07/24201003/08/24 0040 BP: 118/71 113/81 110/76 98/61 Pulse: 94 104 98 98 Resp: 16 16 14 Temp: 36.6 ?C (97.9 ?F) 36.8 ?C (98.3 ?F) 36.8 ?C (98.3 ?F) 37.2 ?C (99 ?F) TempSrc: Oral Oral Temporal Temporal SpO2: 99% 99% 96% 95% Weight: Height: FHT: 140, moderate variability Accels: present Decels: absent Contractions: none on toco, though patient is feeling some Physical Exam: Gen: NAD HEENT: Normocephalic, Atraumatic, EOMI, MMM Resp: Equal chest rise bilaterally Abd: soft, gravid, NTND, no rebound, no guarding. No fundal tenderness Ext: No LE edema, no calf tenderness or swelling Medications: Current Facility-Administered Medications Medication Dose Route Frequency Provider Last Rate Last Admin amoxicillin (Amoxil) capsule 500 mg 500 mg Oral 3 times per day Juliana Nguyen, DO calcium gluconate 10 % injection 1 g 1 g IntraVENous PRN Dali Hall MD dextrose 5 % infusion 100 mL/hr IntraVENous PRN Keiry Boles DO dextrose 50 % solution 12.5 g 12.5 g IntraVENous PRN Keiry Schlieper, DO glucagon (human recombinant) injection 1 mg 1 mg IntraMUSCular PRN Keiry Boles, DO glucose oral gel 15 g 15 g Oral PRN Keiry Boles, DO lactated ringers infusion 125 mL/hr IntraVENous Continuous Dali Hall MD 125 mL/hr at 03/06/24 1730 125 mL/hr at 03/06/24 173 nitrofurantoin (macrocrystal-monohydrat e) (Macrobid) capsule 100 mg 100 mg Oral 2 times per day Juliana Nguyen, 100 mg at 03/07/242012 ondansetron ODT (Zofran-ODT) disintegrating tablet 4 mg 4 mg Oral q8h PRN Dali Hall MD Or ondansetron (Zofran) injection 4 mg 4 mg IntraVENous q6h PRN Dali Hall MD polyethylene glycol (PEG) 3350 (Miralax) packet 17 g 17 g Oral Daily PRN Dali Hall MD vitamin tablet 1 tablet Oral Daily Dali Hall MD 1 tablet at 03/07/24 09 Assessment/Plan: Jose Edward is a 28 y.o. female 29w6d Anhydramnios PPROM - Patient reports LOF for about 3 weeks; US at outside facility showed anhydramnios; ROM rule out was deferred in [place] secondary to blood noted; transported to A (more content not included)... Normal [facility] S. agalactiae DNA EDUARDO+probe Ql (Unsp spec)on 03-08-2024 Group B Strep Screen Not detected Not Detected [facility] Interpretation and review of laboratory results Normal [facility] Methodology: real-ti me PCR [facility] Bacterial vaginosis and vagi nitis rRNA panel Probe (Vag fld)on 03-07-2024 Bacterial vaginosis Ql (Vag fld) [Interp] Not detected Not Detected [facility] C. glabrata DNA EDUARDO+probe Ql (Vag fld) Not detected Not Detected [facility] Keesha sp DNA EDUARDO+probe Ql (Vag fld) Not detected Not Detected [facility] Interpretation and review of laboratory results Normal [facility] T. vaginalis DNA EDUARDO+probe Ql (Vag fld) Not detected Not Detected [facility] Methodology: real-ti me PCR A negative result does not preclude a possible infection. This assay can detect the Keesha species C. albicans, C. tropicalis, C. parapsilosis, and C. dubliniensis but does not differentiate among them. The assay also detects C. glabrata and C. krusei, but does not differentiate between them. Results should be interpreted in conjunction with other clinical data. This test has not been validated for use with specimens collected by patients at home. This test is intended for medical purposes only and is not valid for the evaluation of suspected sexual abuse or for other forensic purposes. [facility] CARECOORDon 03-07-2024 CARECOORD Date: 03/07/2024 Name: Jose Edward : 1995 [facility] Information [place] - transport Patient Information Primary Caregiver: Self Accompanied by/Relationship: S/O;Family Marital Status: Support System: SO/Family Mormon/Cultural Factors: Activities of Daily Living Communication: See demographics Living Arrangements Current Residence: Private residence Lives With: S/O; Family Support System: S/O; Family Income Information Income Source: Employed Financial Resource Strain How hard is it for you to pay for the very basics like food, housing, medical care and heating? N/A Housing Stability In the last 12 months, was there a time when you did not have a steady place to sleep or slept in a fci (including now)? No Transportation Needs Has the lack of Transportation kept you from medical appointments? No In the past 12 months, has the lack of transportation kept you from meetings, work, or from getting things needed for daily living? No Food Insecurity Within the past 12 months, have you worried that your food would run out before you got the money to buy more? No Stress Do you feel stress - tense, restless, nervous, or anxious, or unable to sleep at night because you mind is troubled all the time? Mood stable Referral To Financial Resources: N/A Community Resources: PNU folder given upon admission to PNU Unit Social Work: N/A CLP: N/A Medical Information 28 year old admitted for anhydramnios at 29/4 weeks. 3 Para 0. Suspected PROM. GDMA1. Discharge Plan Home or Community Resources: PNU Admission folder given upon admission to unit Equipment: N/A Education Given: PNU admit folder and see Education Tab Additional Information: N/A Mental Health Services: N/A Developmental Delay: N/A Children's Services: N/A [facility] CHLAMYDIA/GONORRHEAon 2023 CHLAMYDIA/GONORRHEA NEISSERIA GONORRHOEA E DNA PROBE Reference Not Detected Not Detected CHLAMYDIA TRACHOMATIS DNA PROBE Reference Not Detected Not Detected ORDER COMMENTS: Methodology: real-time PCR This test is intended for medical purposes only and is not intended for the evaluation of suspected sexual abuse or for other forensic purposes. In certain contexts, culture may be required to meet applicable laws and regulations for diagnosis of C. trachomatis and N. gonorrhoeae infections. Per 2014 CDC recommmendations, this test does not include confirmation of positive results by an alternative nucleic acid target. A negative result does not exclude the possibility of infection. A result of invalid indicates that a new specimen should be collected if clinically indicated. [facility] Comment on above: Performed By: #### L [id number] ####Brands Editor: GYPSY DAY ([id number] GROUP B STREP SCREEN BY PCRo n 03-07-2024 GROUP B STREP SCREEN BY PCR GROUP B STREP SCREEN BY PCR Reference Not Detected Not Detected ORDER COMMENTS: Methodology: real-time PCR [facility] Comment on above: Performed By: #### L [id number] ####Brands Editor: GYPSY DAY ([id number] Laboratory - Chemistry and C hemistry - challengeon 03-07-2024 Glucose [Mass/Vol] 149 mg/dL High 70 - 100 mg/dL [facility] Glucose [Mass/Vol] 135 mg/dL High 70 - 100 mg/dL [facility] Glucose [Mass/Vol] 129 mg/dL High 70 - 100 mg/dL [facility] Glucose [Mass/Vol] 105 mg/dL High 70 - 100 mg/dL [facility] Glucose [Mass/Vol] 158 mg/dL High 70 - 100 mg/dL [facility] N. gonorrhoeae DNA EDUARDO+probe Ql (Cervical mucus)on 03-07-2024 C. trachomatis DNA EDUARDO+probe Ql (Unsp spec) Not detected Not Detected [facility] [employer] Interpretation and review of laboratory results Normal [facility] N gonorrhoeae, DNA Probe Not detected Not Detected [facility] [employer] Methodology: real-ti me PCR This test is intended for medical purposes only and is not intended for the evaluation of suspected sexual abuse or for other forensic purposes. In certain contexts, culture may be required to meet applicable laws and regulations for diagnosis of C. trachomatis and N. gonorrhoeae infections. Per 2014 CDC recommmendations, this test does not include confirmation of positive results by an alternative nucleic acid target. A negative result does not exclude the possibility of infection. A result of invalid indicates that a new specimen should be collected if clinically indicated. [employer] No Panel Informationon 03-07 Interpretation and review of laboratory results Abnormal [employer] Performed by: [facility] [facility], [address] [place] [address] CLIA ID: [id number] [facility] [employer] Interpretation and review of laboratory results Abnormal [employer] Performed by: [employer] [facility], [address] [place] [address] CLIA ID: [id number] [employer] 1. Allen live intrauterine at 29w 5d in chata breech presentation. 2. Normal growth; EFW 1412 grams, which is at the 49% for this gestational age. 3. The amniotic fluid index is 1.1cm, which is consistent with oligohydramnios. There is no 2 x 2 cm pocket of fluid. 4. Visualized anatomy appears normal but limited as noted above. 5. BPP is 6/8 for fluid. [facility] OBSTETRICS REPORT (Signed Final 03/07/2024 11:11 am) PATIENT INFO: ID #: [id number] : [birth year] (28 yrs)(F) Name: JOSE EDWARD Visit Date: 03/07/2024 09:36 am PERFORMED BY: Attending: Saumya Mancia Performed By: Allison Langley RDMS Referred By: JULIANA NGUYEN Location: [facility] IP Visit Type: Inpatient - Hospital SERVICE(S) [place]: [place] [id number] [facility] w/out NST 88856 INDICATIONS: Oligohydramnios, third trimester, not O41.03X0 applicable or unspecified Oligohydramnios, third trimester, not O41.03X0 applicable or unspecified IVF Anyhdramnios VITAL SIGNS: Weight (lb): 188 Height: 5'2 BMI: 34.38 EVALUATION: Num Of Fetuses: 1 Heart Rate(bpm): 147 Cardiac Activity: Regular rhythm Lie: Breech Presentation: Breech, chata Placenta: Posterior Amniotic Fluid LEONELA FV: Oligohydramnios LEONELA Sum(cm) %Tile Largest Pocket(cm) 1.1 < 3 1.1 RUQ(cm) 1.1 Comment: There is no 2 x 2cm pocket. BIOPHYSICAL EVALUATION: Amniotic F.V: Pocket < 2 cm two F. Tone: Observed planes F. Movement: Observed Score: 6/8 F. Breathing: Observed BIOMETRY: BPD: 70.9 mm G.Age: 28w 3d 8 % OFD: 99.3 mm HC: 272.9 mm G.Age: 29w 6d 18 % AC: 255.7 mm G.Age: 29w 5d 45 % FL: 55.9 mm G.Age: 29w 3d 27 % HUM: 51 mm G.Age: 29w 6d 53 % LV: 5.25 mm TIB: 49.6 mm G.Age: 29w 5d 52 % CI: 71.4 % 70 - 86 FL/HC: 20.5 % 19.2 - 21.4 HC/AC: 1.07 0.99 - 1.21 FL/BPD: 78.8 % 71 - 87 FL/AC: 21.9 % 20 - 24 Est. FW: 1412 gm 3 lb 2 oz 49 % GESTATIONAL AGE: Clinical GERALD: 29w 5d GERALD: 05/18/24 U/S Today: 29w 3d GERALD: 05/20/24 Best: 29w 5d Det. By: Clinical GERALD GERALD: 05/18/24 ANATOMY: Cranium: Normal appearance Cavum: Normal appearance Ventricles: Normal appearance Choroid Plexus: Normal appearance Cerebellum: Suboptimal views Posterior Fossa: Suboptimal views Nuchal Fold: Suboptimal views Face: Suboptimal views Lips: Suboptimal views Palate: Suboptimal views Thoracic: Normal appearance Heart: Normal appearance RVOT: Normal appearance LVOT: Normal appearance Aortic Arch: Suboptimal views Ductal Arch: Suboptimal views Diaphragm: Normal appearance Stomach: Normal appearance Abdomen: Normal appearance Abdominal Wall: Normal appearance Cord Vessels: 3-Vessel Cord Kidneys: Normal appearance Bladder: Normal appearance Spine: Normal appearance Upper Extremities: Normal appearance Lower Extremities: Normal appearance TARGETED ANATOMY: Central Nervous System Calvarium/Cranial V.: Normal appearance Intracranial Shivani: Normal appearance Cavum: Normal appearance Parenchyma: Normal appearance Lateral Ventricles: Normal appearance Choroid Plexus: Normal appearance Cereb./Vermis: Suboptimal views Cisterna Magna: Suboptimal views Corpus Callosum: Normal appearance Midline Falx: Normal appearance Spine Cervical: Normal appearance Thoracic: Normal appear (more content not included)... [facility] Saumya Mancia MD - 03/07/2024 OBSTETRICS REPORT (Signed Final 03/07/2024 11:11 am) PATIENT INFO: ID #: [id number] : [birth year] (28 yrs)(F) Name: JOSE EDWARD Visit Date: 03/07/2024 09:36 am PERFORMED BY: Attending: Saumya Mancia Performed By: Allison Langley RDMS Referred By: JULIANA NGUYEN Location: [facility] IP Visit Type: Inpatient - Hospital SERVICE(S) [place]: [place] [id number] [facility] w/out NST 01647 INDICATIONS: Oligohydramnios, third trimester, not O41.03X0 applicable or unspecified Oligohydramnios, third trimester, not O41.03X0 applicable or unspecified IVF Anyhdramnios VITAL SIGNS: Weight (lb): 188 Height: 5'2 BMI: 34.38 EVALUATION: Num Of Fetuses: 1 Heart Rate(bpm): 147 Cardiac Activity: Regular rhythm Lie: Breech Presentation: Breech, chata Placenta: Posterior Amniotic Fluid LEONELA FV: Oligohydramnios LEONELA Sum(cm) %Tile Largest Pocket(cm) 1.1 < 3 1.1 RUQ(cm) 1.1 Comment: There is no 2 x 2cm pocket. BIOPHYSICAL EVALUATION: Amniotic F.V: Pocket < 2 cm two F. Tone: Observed planes F. Movement: Observed Score: 6/8 F. Breathing: Observed BIOMETRY: BPD: 70.9 mm G.Age: 28w 3d 8 % OFD: 99.3 mm HC: 272.9 mm G.Age: 29w 6d 18 % AC: 255.7 mm G.Age: 29w 5d 45 % FL: 55.9 mm G.Age: 29w 3d 27 % HUM: 51 mm G.Age: 29w 6d 53 % LV: 5.25 mm TIB: 49.6 mm G.Age: 29w 5d 52 % CI: 71.4 % 70 - 86 FL/HC: 20.5 % 19.2 - 21.4 HC/AC: 1.07 0.99 - 1.21 FL/BPD: 78.8 % 71 - 87 FL/AC: 21.9 % 20 - 24 Est. FW: 1412 gm 3 lb 2 oz 49 % GESTATIONAL AGE: Clinical GERALD: 29w 5d GERALD: 05/18/24 U/S Today: 29w 3d GERALD: 05/20/24 Best: 29w 5d Det. By: Clinical GERALD GERALD: 05/18/24 ANATOMY: Cranium: Normal appearance Cavum: Normal appearance Ventricles: Normal appearance Choroid Plexus: Normal appearance Cerebellum: Suboptimal views Posterior Fossa: Suboptimal views Nuchal Fold: Suboptimal views Face: Suboptimal views Lips: Suboptimal views Palate: Suboptimal views Thoracic: Normal appearance Heart: Normal appearance RVOT: Normal appearance LVOT: Normal appearance Aortic Arch: Suboptimal views Ductal Arch: Suboptimal views Diaphragm: Normal appearance Stomach: Normal appearance Abdomen: Normal appearance Abdominal Wall: Normal appearance Cord Vessels: 3-Vessel Cord Kidneys: Normal appearance Bladder: Normal appearance Spine: Normal appearance Upper Extremities: Normal appearance Lower Extremities: Normal appearance TARGETED ANATOMY: Central Nervous System Calvarium/Cranial V.: Normal appearance Intracranial Shivani: Normal appearance Cavum: Normal appearance Parenchyma: Normal appearance Lateral Ventricles: Normal appearance Choroid Plexus: Normal appearance Cereb./Vermis: Suboptimal views Cisterna Magna: Suboptimal views Corpus Callosum: Normal appearance Midline Falx: Normal appearance Spine Cervical: Normal appearance Thoracic: Normal appearance Lumbar: Normal appearance Sacral: Suboptimal views Head/Neck Face: Suboptimal views Lips: Suboptimal views Nuchal Fold: Suboptimal views Nasal Bone: Suboptimal views Palate: Suboptimal views Profile: Suboptimal views Orbits/Eyes: Suboptimal views Mandible: Suboptimal views Maxilla: Suboptimal views Thorax Thoracic Contour: Normal appearance Lungs: Normal appearance 4 Chamber View: Normal appearance Cardiac Activity: Normal Cardiac Rhythm: Normal Cardiac Situs: Normal appearance Rt Outflow Tract: Normal appearance Lt Outflow Tract: Normal appearance Aortic Arch: Suboptimal views Ductal Arch: Suboptimal views SVC: Normal appearance Interventr. Septum: Suboptimal views Cardiac [place]: Normal appearance Diaphragm: Normal appearance 3 Vessel View: Normal appearance 3 V Trachea View: Suboptimal views IVC: Normal Appearance Crossing: Suboptimal views Abdomen Ventral Wall: Normal appearance Cord Insertion: Normal appearance Situs: Normal appearance Stomach: Nor (more content not included)... [employer] Interpretation and review of laboratory results Abnormal [employer] Performed by: [employer] [facility], [address] [place] [address] CLIA ID: [id number] [facility] Radiology Study observation (narrative) [employer] Interpretation and review of laboratory results Abnormal [employer] Performed by: [facility] [employer] [facility], [address] [place] [address] CLIA ID: [id number] [facility] [employer] [facility] Interpretation and review of laboratory results Abnormal [facility] [employer] Performed by: [facility], [address] [place] [address] CLIA ID: [id number] [facility] [employer] No Panel InformationOrdered By: Saumya Mancia on 03-07-2024 [employer] Work Phone: Nursing Noteon 03-07-2024 Nursing Note RN called to bedside at 0435, pt reporting feeling increased leakage of fluid. Denies cramping, contractions, or pain, but does state feeling pressure which has become more constant. Dr Boles aware. Pt instructed to notify RN immediately if pressure intensifies or if cramping / contractions occur. Normal [facility] [employer] System [facility] Progress Noteon 03-07-2024 Progress Note ---- -------- Attestation signed by Saumya Mancia MD at 03/07/2024 3:39 PM MFM ATTENDING I have personally obtained a history and examined the patient with Dr. Nguyen. I agree with the assessment and plan as documented in the resident's note. The patient is a 28 y.o. 29w5d now HD#2, admitted for PPROM Pertinent Background: Transferred overnight for PPROM. Gross rupture confirmed on admit and anhydramnios at OSH ultrasound. Given BMZ, Mag for TOBACCO HANGER and latency antibiotics (amox only due to Severe Zmax allergy) Has new GDMA1 with elevated dinner value last night with steroids. Today she is without any complaints and reports good movement. She denies fevers, chills, contractions and VB. Vitals: 03/07/24 0916 BP: 111/74 Pulse: 97 Resp: 18 Temp: 36.7 ?C (98.1 ?F) SpO2: 100% Alert and oriented, NAD Gravid nontender abdomen Current Monitoring Plan: CEFM NST NST: Reactive reassuring Ultrasound: 1412g (49%), Chata Breech, LEONELA 1cm, BPP 6/8 for -2 fluid- NST reactive Lab Results Component Value Date WBC 15.2 (H) 03/06/2024 HGB 14.1 03/06/2024 HCT 41.8 03/06/2024 MCV 90.1 03/06/2024 PLT 311 03/06/2024 Plan: Today I counseled the patient extensively on the diagnosis of PPROM, the potential risks including labor, infection, placental abruption and cord compression with NRFS resulting in possible need for emergent delivery. We discussed the rationale for latency antibiotics, BMZ for lung maturity and magnesium for TOBACCO HANGER. We discussed the indication for delivery with any signs of infection. We reviewed the recommendation for inpatient admission until delivery and plan for delivery at 34 weeks unless indicated sooner for labor, infection or NRFS. All questions answered. Continue latency antibiotics for 7 days total. BMZ #2 this evening S/p Mag for TOBACCO HANGER x >12 hrs total- now stopped NICU consult Understands baby in breech presentation and would be for if delivered 60 minutes spent in total floor time today for review of records, patient interview and exam, documentation and coordination of care with care teams. Saumya Mancia MD -------- Maternal Medicine Service Resident Progress Note 03/07/2024 6:44 AM 03/06/2024 Hospital Day: 2 Jose Thomasezio, 28 y.o. 29w5d Patient has been seen and examined. Patient complains of lower abdominal pressure with continued gushes of fluid. The pressure is intermittent, waxing and waning sporadically. She notices increased fluid leakage during the periods of pressure. The fluid is clear and mixed with mucus. She has no vaginal bleeding. No fevers or chills. She otherwise feels well and has no other concerns. Declined exam this AM, but instructed to let us know if she starts feeling more pressure or would like to be checked. Positive movement Negative vaginal bleeding Positive LOF Positive Contractions Vitals: 03/06/24 1725 03/06/24200903/06/24 2340 03/07/24 0438 BP: 107/75 111/76 111/71 Pulse: 106 102 102 91 Resp: 16 18 16 Temp: 36.9 ?C (98.4 ?F) 36.6 ?C (97.8 ?F) 36.9 ?C (98.5 ?F) TempSrc: Temporal Temporal Temporal SpO2: (!) 94% (!) 93% 96% Weight: Height: FHT: 140, moderate variability Accels: present Decels: absent Contractions: irregular Physical Exam: Gen: Alert, engaging in conversation, appears comfortable HEENT: Normocephalic, Atraumatic Resp: Clear to auscultation bilaterally Card: Regular rate and rhythm with no additional sounds Abd: soft, gravid, nontender, no rebound, no guarding. BS present. No fundal tenderness Ext: No LE edema, no calf tenderness or swelling Medications: Current Facility-Administered Medications Medication Dose Route Frequency Provider Last Rate Last Admin ampicillin (Omnipen) 2,000 mg in sodium chloride 0.9 % 100 mL IVPB 2,000 mg IntraVENous 4 times per day Juliana Nguyen, DO 200 mL/hr at 03/07/24 0203 2,000 mg at 03/07/24 0203 Followed by [START ON 03/08/2024] amoxicillin (Amoxil) capsule 500 mg 500 mg Oral 3 times per day Juliana Nguyen, DO betamethasone acetate-betamethasone sodium phosphate (Celestone) injection 12 mg 12 mg IntraMUSCular Once Juliana Nguyen DO calcium gluconate 10 % injection 1 g 1 g IntraVENous PRN Dali Hall MD dextrose 5 % infusion 100 mL/hr IntraVENous PRN Keiry Boles, DO dextrose 50 % solution 12.5 g 12.5 g IntraVENous PRN Keiry Boles, DO glucagon (human recombinant) injection 1 mg 1 mg IntraMUSCular PRN Keiry Boles, DO glucose oral gel 15 g 15 g Oral PRN Keiry Boles, DO lactated ringers infusion 125 mL/hr IntraVENous Continuous Dali Hall MD 125 mL/hr at 03/06/24 1730 125 mL/hr at 03/06/24 1730 magnesium sulfate 20 GM/500ML infusion 1 (more content not included)... Normal [facility] US BIOPHYSICAL PROFILE WO NON STRESS TESTINGon 03-07-2024 US BIOPHYSICAL PROFILE WO NON STRESS TESTING OBSTETRICS REPORT (Signed Final 03/07/2024 11:11 am) PATIENT INFO: ID #: [id number] : [birth year] (28 yrs)(F) Name: JOSE EDWARD Visit Date: 03/07/2024 09:36 am PERFORMED BY: Attending: Saumya Mancia Performed By: Allison Langley RDMS Referred By: JULIANA NGUYEN Location: [facility] IP Visit Type: Inpatient - Hospital SERVICE(S) [place]: [place] [id number] [facility] w/out NST 89599 INDICATIONS: Oligohydramnios, third trimester, not O41.03X0 applicable or unspecified Oligohydramnios, third trimester, not O41.03X0 applicable or unspecified IVF Anyhdramnios VITAL SIGNS: Weight (lb): 188 Height: 5'2 BMI: 34.38 EVALUATION: Num Of Fetuses: 1 Heart Rate(bpm): 147 Cardiac Activity: Regular rhythm Lie: Breech Presentation: Breech, chata Placenta: Posterior Amniotic Fluid LEONELA FV: Oligohydramnios LEONELA Sum(cm) %Tile Largest Pocket(cm) 1.1 < 3 1.1 RUQ(cm) 1.1 Comment: There is no 2 x 2cm pocket. BIOPHYSICAL EVALUATION: Amniotic F.V: Pocket < 2 cm two F. Tone: Observed planes F. Movement: Observed Score: 6/8 F. Breathing: Observed BIOMETRY: BPD: 70.9 mm G.Age: 28w 3d 8 % OFD: 99.3 mm HC: 272.9 mm G.Age: 29w 6d 18 % AC: 255.7 mm G.Age: 29w 5d 45 % FL: 55.9 mm G.Age: 29w 3d 27 % HUM: 51 mm G.Age: 29w 6d 53 % LV: 5.25 mm TIB: 49.6 mm G.Age: 29w 5d 52 % CI: 71.4 % 70 - 86 FL/HC: 20.5 % 19.2 - 21.4 HC/AC: 1.07 0.99 - 1.21 FL/BPD: 78.8 % 71 - 87 FL/AC: 21.9 % 20 - 24 Est. FW: 1412 gm 3 lb 2 oz 49 % GESTATIONAL AGE: Clinical GERALD: 29w 5d GERALD: 05/18/24 U/S Today: 29w 3d GERALD: 05/20/24 Best: 29w 5d Det. By: Clinical GERALD GERALD: 05/18/24 ANATOMY: Cranium: Normal appearance Cavum: Normal appearance Ventricles: Normal appearance Choroid Plexus: Normal appearance Cerebellum: Suboptimal views Posterior Fossa: Suboptimal views Nuchal Fold: Suboptimal views Face: Suboptimal views Lips: Suboptimal views Palate: Suboptimal views Thoracic: Normal appearance Heart: Normal appearance RVOT: Normal appearance LVOT: Normal appearance Aortic Arch: Suboptimal views Ductal Arch: Suboptimal views Diaphragm: Normal appearance Stomach: Normal appearance Abdomen: Normal appearance Abdominal Wall: Normal appearance Cord Vessels: 3-Vessel Cord Kidneys: Normal appearance Bladder: Normal appearance Spine: Normal appearance Upper Extremities: Normal appearance Lower Extremities: Normal appearance TARGETED ANATOMY: Central Nervous System Calvarium/Cranial V.: Normal appearance Intracranial Shivani: Normal appearance Cavum: Normal appearance Parenchyma: Normal appearance Lateral Ventricles: Normal appearance Choroid Plexus: Normal appearance Cereb./Vermis: Suboptimal views Cisterna Magna: Suboptimal views Corpus Callosum: Normal appearance Midline Falx: Normal appearance Spine Cervical: Normal appearance Thoracic: Normal appearance Lumbar: Normal appearance Sacral: Suboptimal views Head/Neck Face: Suboptimal views Lips: Suboptimal views Nuchal Fold: Suboptimal views Nasal Bone: Suboptimal views Palate: Suboptimal views Profile: Suboptimal views Orbits/Eyes: Suboptimal views Mandible: Suboptimal views Maxilla: Suboptimal views Thorax Thoracic Contour: Normal appearance Lungs: Normal appearance 4 Chamber View: Normal appearance Cardiac Activity: Normal Cardiac Rhythm: Normal Cardiac Situs: Normal appearance Rt Outflow Tract: Normal appearance Lt Outflow Tract: Normal appearance Aortic Arch: Suboptimal views Ductal Arch: Suboptimal views SVC: Normal appearance Interventr. Septum: Suboptimal views Cardiac [place]: Normal appearance Diaphragm: Normal appearance 3 Vessel View: Normal appearance 3 V Trachea View: Suboptimal views IVC: Normal Appearance Crossing: Suboptimal views Abdomen Ventral Wall: Normal appearance Cord Insertion: Normal appearance Situs: Normal appearance Stomach: Normal appearance Liver: Normal appearance Lt Kidney: Normal appearance Rt Kidney: Normal appearance Bladder: N (more content not included)... Normal [facility] OB FOLLOW UP TRANSABDOMIN AL APPROACHon 03-07-2024 OB FOLLOW UP TRANSABDOMINAL APPROACH OBSTETRICS REPORT (Signed Final 03/07/2024 11:11 am) PATIENT INFO: ID #: [id number] : [birth year] (28 yrs)(F) Name: JOSE EDWARD Visit Date: 03/07/2024 09:36 am PERFORMED BY: Attending: Saumya Mancia Performed By: Allison Langley RDPR Referred By: JULIANA NGUYEN Location: [facility] IP Visit Type: Inpatient - Hospital SERVICE(S) [place] [address] [facility] w/out NST 51882 INDICATIONS: Oligohydramnios, third trimester, not O41.03X0 applicable or unspecified Oligohydramnios, third trimester, not O41.03X0 applicable or unspecified IVF Anyhdramnios VITAL SIGNS: Weight (lb): 188 Height: 5'2 BMI: 34.38 EVALUATION: Num Of Fetuses: 1 Heart Rate(bpm): 147 Cardiac Activity: Regular rhythm Lie: Breech Presentation: Breech, chata Placenta: Posterior Amniotic Fluid LEONELA FV: Oligohydramnios LEONELA Sum(cm) %Tile Largest Pocket(cm) 1.1 < 3 1.1 RUQ(cm) 1.1 Comment: There is no 2 x 2cm pocket. BIOPHYSICAL EVALUATION: Amniotic F.V: Pocket < 2 cm two F. Tone: Observed planes F. Movement: Observed Score: 12/08 F. Breathing: Observed BIOMETRY: BPD: 70.9 mm G.Age: 28w 3d 8 % OFD: 99.3 mm HC: 272.9 mm G.Age: 29w 6d 18 % AC: 255.7 mm G.Age: 29w 5d 45 % FL: 55.9 mm G.Age: 29w 3d 27 % HUM: 51 mm G.Age: 29w 6d 53 % LV: 5.25 mm TIB: 49.6 mm G.Age: 29w 5d 52 % CI: 71.4 % 70 - 86 FL/HC: 20.5 % 19.2 - 21.4 HC/AC: 1.07 0.99 - 1.21 FL/BPD: 78.8 % 71 - 87 FL/AC: 21.9 % 20 - 24 Est. FW: 1412 gm 3 lb 2 oz 49 % GESTATIONAL AGE: Clinical GERALD: 29w 5d GERALD: 05/18/24 U/S Today: 29w 3d GERALD: 05/20/24 Best: 29w 5d Det. By: Clinical GERALD GERALD: 05/18/24 ANATOMY: Cranium: Normal appearance Cavum: Normal appearance Ventricles: Normal appearance Choroid Plexus: Normal appearance Cerebellum: Suboptimal views Posterior Fossa: Suboptimal views Nuchal Fold: Suboptimal views Face: Suboptimal views Lips: Suboptimal views Palate: Suboptimal views Thoracic: Normal appearance Heart: Normal appearance RVOT: Normal appearance LVOT: Normal appearance Aortic Arch: Suboptimal views Ductal Arch: Suboptimal views Diaphragm: Normal appearance Stomach: Normal appearance Abdomen: Normal appearance Abdominal Wall: Normal appearance Cord Vessels: 3-Vessel Cord Kidneys: Normal appearance Bladder: Normal appearance Spine: Normal appearance Upper Extremities: Normal appearance Lower Extremities: Normal appearance TARGETED ANATOMY: Central Nervous System Calvarium/Cranial V.: Normal appearance Intracranial Shivani: Normal appearance Cavum: Normal appearance Parenchyma: Normal appearance Lateral Ventricles: Normal appearance Choroid Plexus: Normal appearance Cereb./Vermis: Suboptimal views Cisterna Magna: Suboptimal views Corpus Callosum: Normal appearance Midline Falx: Normal appearance Spine Cervical: Normal appearance Thoracic: Normal appearance Lumbar: Normal appearance Sacral: Suboptimal views Head/Neck Face: Suboptimal views Lips: Suboptimal views Nuchal Fold: Suboptimal views Nasal Bone: Suboptimal views Palate: Suboptimal views Profile: Suboptimal views Orbits/Eyes: Suboptimal views Mandible: Suboptimal views Maxilla: Suboptimal views Thorax Thoracic Contour: Normal appearance Lungs: Normal appearance 4 Chamber View: Normal appearance Cardiac Activity: Normal Cardiac Rhythm: Normal Cardiac Situs: Normal appearance Rt Outflow Tract: Normal appearance Lt Outflow Tract: Normal appearance Aortic Arch: Suboptimal views Ductal Arch: Suboptimal views SVC: Normal appearance Interventr. Septum: Suboptimal views Cardiac [place]: Normal appearance Diaphragm: Normal appearance 3 Vessel View: Normal appearance 3 V Trachea View: Suboptimal views IVC: Normal Appearance Crossing: Suboptimal views Abdomen Ventral Wall: Normal appearance Cord Insertion: Normal appearance Situs: Normal appearance Stomach: Normal appearance Liver: Normal appearance Lt Kidney: Normal appearance Rt Kidney: Normal appearance Bladder: N (more content not included)... Normal [facility] VAGINITIS PANEL P PCRon VAGINITIS PANEL MVP PCR BACTERIAL VAGINOSIS MVP PCR Reference Not Detected Not Detected KEESHA SPP MVP PCR Reference Not Detected Not Detected KEESHA GLABRATA/KRUSEI MVP PCR Reference Not Detected Not Detected TRICHOMONAS VAGINALIS MVP PCR Reference Not Detected Not Detected ORDER COMMENTS: Methodology: real-time PCR A negative result does not preclude a possible infection. This assay can detect the Keesha species C. albicans, C. tropicalis, C. parapsilosis, and C. dubliniensis but does not differentiate among them. The assay also detects C. glabrata and C. krusei, but does not differentiate between them. Results should be interpreted in conjunction with other clinical data. This test has not been validated for use with specimens collected by patients at home. This test is intended for medical purposes only and is not valid for the evaluation of suspected sexual abuse or for other forensic purposes. Normal [facility] Comment on above: Performed By: #### L [id number] #### Brands Editor: GYPSY DAY ([id number]) [facility] ([facility]) [address] [place] [address] BLOOD TYPE AND SCREEN GELon 03-06-2024 ABO GROUPING O Normal [facility] Comment on above: Order Comment: HOLD. Specimen is valid for 3 days - nurse to verify valid specimen Performed By: #### L [id number] ####Brands Editor: GYPSY DAY ([id number])[facility] B[facility]OD [facility] ([facility])[address] [place] [address] RH TYPE IN BLOOD Positive Normal [facility] Comment on above: Order Comment: HOLD. Specimen is valid for 3 days - nurse to verify valid specimen Performed By: #### L [id number] ####Brands Editor: GYPSY DAY ([id number])[facility] ([facility])[address] [place] [address] Blood type and Crossmatch pa phill (Bld)on 03-06-2024 ABO group Nom (Bld) O [facility] Blood group antibody screen GEL Ql Negative [facility] D [facility]l [facility]BC) [facility] CBC (HEMOGRAM)on 03-06-2024 Erythrocyte distribution width (RBC) [Ratio] 13.9 % Normal 11.5-15.0 [facility] Comment on above: Performed By: #### L [id number] ####Brands Editor: GYPSY DAY ([id number])[address] Hematocrit (Bld) [Volume fraction] 41.8 % Normal 35.0-47.0 [facility] Comment on above: Performed By: #### L [id number] ####Brands Editor: GYPSY DAY ([id number])[address] Hemoglobin (Bld) [Mass/Vol] 14.1 g/dL Normal 11.7-16.0 [facility] Comment on above: Performed By: #### L [id number] ####Brands Editor: GYPSY DAY ([id number])[address] MCH (RBC) [Entitic mass] 30.4 pg Normal 26.0-34.0 [facility] Comment on above: Performed By: #### L [id number] ####Brands Editor: GYPSY DAY ([id number])[address] MCHC 33.7 % Normal 30.5-36.0 [facility] Comment on above: Performed By: #### L [id number] ####Brands Editor: GYPSY DAY ([id number])[address] MCV (RBC) [Entitic vol] 90.1 fL Normal 77.0-99.0 [facility] Comment on above: Performed By: #### L [id number] ####Brands Editor: GYPSY DAY ([id number])[address] Platelet mean volume (Bld) [Entitic vol] 9.8 fL Normal 9.0-12.7 [facility] Comment on above: Performed By: #### L [id number] ####Brands Editor: GYPSY DAY ([id number])[facility] ([facility])[address] [place] [address] Platelets (Bld) [#/Vol] 311 10*3/uL Normal 140-440 [facility] Comment on above: Performed By: #### L [id number] ####Brands Editor: GYPSY DAY ([id number])[facility])[address] [place] [address] RBC (Bld) [#/Vol] 4.64 10*6/uL Normal 3.80-5.20 [facility] Comment on above: Performed By: #### L [id number] ####Brands Editor: GYPSY DAY ([id number])[facility])[address] [place] [address] WBC (Bld) [#/Vol] 15.2 10*3/uL High 3.6-10.7 [facility] Comment on above: Performed By: #### L [id number] ####Brands Editor: GYPSY DAY ([id number])[facility] ([facility])[address] [place] [address] CBC panel Auto (Bld)on 03-06 Erythrocyte distribution width (RBC) [Ratio] 13.9 % 11.5 - 15.0 % [facility] Hematocrit (Bld) [Volume fraction] 41.8 % 35.0 - 47.0 % [facility] Hemoglobin (Bld) [Mass/Vol] 14.1 g/dL 11.7 - 16.0 g/dL [facility] Interpretation and review of laboratory results Abnormal [facility] MCH (RBC) [Entitic mass] 30.4 pg 26.0 - 34.0 pg [facility] MCHC (RBC) [Mass/Vol] 33.7 % 30.5 - 36.0 % [facility] MCV (RBC) [Entitic vol] 90.1 fL 77.0 - 99.0 fL [facility] Platelet mean volume (Bld) [Entitic vol] 9.8 fL 9.0 - 12.7 fL [facility] Platelets (Bld) [#/Vol] 311 10*3/uL 140 - 440 10*3/uL [facility] RBC (Bld) [#/Vol] 4.64 10*6/uL 3.80 - 5.2 0 10*6/uL [facility] [employer] WBC (Bld) [#/Vol] 15.2 10*3/uL High 3.6 - 10.7 10*3/uL [facility] Laboratory - Chemistry and C hemistry - challengeon 03-06-2024 Glucose [Mass/Vol] 229 mg/dL High 70 - 100 mg/dL [facility] [employer] Glucose [Mass/Vol] 227 mg/dL High 70 - 100 mg/dL [facility] [employer] No Panel Informationon 03-06 Interpretation and review of laboratory results Abnormal [facility] [employer] Performed by: [employer] [facility], [address] [place] [id number] CLIA ID: [id number] [facility] [employer] [facility] Interpretation and review of laboratory results Abnormal [facility] [employer] Performed by: [employer] [facility], [address] [place] [id number] CLIA ID: [id number] [facility] [employer] [facility] [employer] Progress Noteon 03-06-2024 Progress Note ---- -------- Attestation signed by Saumya Mancia MD at 03/06/2024 6:43 PM [facility] Patient a direct admission from Transfer from [place]. Please see my other H&P attestation -------- Department of Obstetrics and Gynecology Labor and Delivery Triage Note CHIEF COMPLAINT: Anyhydramnios HISTORY OF PRESENT ILLNESS: The patient is a 28 y.o. 29w4d. Patient presents with a chief complaint as above and is being admitted for observation and BMZ + Magnesium. Patient reports she has been leaking for 3 weeks now. She was evaluated in [place] initially at that time with amnisure that was negative. She continued to have leakage. US today showed anhydramnios. Patient also noted to have a UTI and was prescribed macrobid. Due to anhydramnios and suspected ROM, patient started on magnesium bolus and steroids. Patient is a GDMA1 with Dexcom in place, currently 111. Her highest was 140 last night. Patient does have history of diagnostic laparoscopic for endometriosis. Otherwise, medically uncomplicated. Patient is breech on US today. OB History 3 Para Term AB 2 Living SAB 2 IAB Ectopic Multiple Live Births Estimated Due Date: Estimated Date of Delivery: 05/18/24 REVIEW OF SYSTEMS: Pertinent items are noted in HPI. APPEARANCE: Pain: no PHYSICAL EXAM: Vital Signs: VS wnl-reviewed/Respiration s normal effort Vitals: 03/06/24 1710 03/06/24 1715 03/06/24 1720 03/06/24 1725 BP: Pulse: 111 109 107 106 Resp: Temp: SpO2: Weight: Height: Speculum Exam: pooled fluid appearing clear heart rate: Category I Cervix: visually closed Membranes: Ruptured clear fluid BSUS: breech presentation IMPRESSION: Leaking fluid-ROM,clear DISCUSSED WITH PNC PROVIDER: Dr. Mancia DISPOSITION: Admit to L&D [facility] URINE CULTUREon 03-06-2024 Bacteria identified Cx Nom (U) URINE CULTURE Reference No growth (<1,000 CFU/mL) [ S = SUSCEPTIBLE R = RESISTANT I = INTERMEDIATE S-DD = Susceptible-dose dependent NS = Non-susceptible NO = No Interpretation ] [facility] Comment on above: Performed By: #### L [id number] ####Brands Editor: GYPSY DAY ([id number])[facility] ([address] Absolute lymphocyte countOrd ered By: Julianna Villareal on 10-25-2023 Lymphocytes Auto (Unsp spec) [#/Vol] 2.65 10*3/uL 0.83-4.51 [facility] Automated lymphocyte count a s percentage of total leukocytesOrdered By: Julianna Villareal on 10-25-2023 Lymphocytes/100 WBC Auto (Unsp spec) 27.5 % 19-41 [facility] Basophil percentageOrdered B y: Julianna Villareal on 10-25-2023 Basophils/100 WBC (Bld) 0.4 % 0-1 [facility] Eosinophils/100 WBC (Bld) 1.6 % 0-5 [facility] Hemoglobin (Bld) [Mass/Vol] 13.4 g/dL 12.0-15.0 [facility] Monocytes/100 WBC (Bld) 7.3 % 0-10 [facility] Neutrophils (Bld) [#/Vol] 6.1 10*3/uL 2.0-7.7 [facility] Neutrophils/100 WBC (Bld) 62.8 % 47-70 [facility] WBC (Bld) [#/Vol] 9.6 10*3/uL 4.4-11.0 [facility] Culture, urineOrdered By: Lul Bauer on 10-25-2023 Bacteria identified Cx Nom (U) Culture exhibits no growth. [facility] Determination of erythrocyte mean corpuscular volume (MCV)Ordered By: Julianna Villareal on 10-25-2023 MCV (RBC) [Entitic vol] 88.4 fL 81-99 [facility] Erythrocyte distribution wid th ratioOrdered By: Julianna Villareal on 10-25-2023 Erythrocyte distribution width (RBC) [Ratio] 13.9 % 11.6-14.6 [facility] Erythrocyte distribution wid th standard deviationOrdered By: Julianna Villareal on 10-25-2023 Erythrocyte distribution width (RBC) [Entitic vol] 44.7 fL 35.1-43.9 [facility] HIV 1 and HIV-2 antibody ass ay with HIV-1 p24 antigen detectionOrdered By: Julianna Villareal on 10-25-2023 HIV 1+2 Ab+HIV1 p24 Ag IA Ql Non-Reactive Nonreactive [facility] Hematocrit Auto (Bld) [Volum e fraction]Ordered By: Julianna Villareal on 10-25-2023 Hematocrit (Bld) [Volume fraction] 40.5 % 37-47 [facility] Immature granulocytes/100 WB C Auto (Bld)Ordered By: Julianna Villareal on 10-25-2023 Immature granulocytes/100 WBC (Bld) 0.400 % 0.0-0.9 [facility] Comment on above: IG% - Immature Granu locytes (promyelocytes, myelocytes and metamyelocytes) > 1% indicates that a LEFT SHIFT is Present. Laboratory - Chemistry and C hemistry - challengeon 10-25-2023 Glucose Ql (U) Negative [facility] Laboratory - Hematology and Cell countsOrdered By: Julianna Villareal on 10-25-2023 MCH (RBC) [Entitic mass] 29.3 pg 27.0-32.0 [facility] MCHC (RBC) [Mass/Vol] 33.1 g/dL 32-36 [facility] Nucleated RBC/100 WBC (Bld) [Ratio] 0 % 0-5 [facility] Platelet mean volume (Bld) [Entitic vol] 8.7 fL 6.2-12.0 [facility] Platelets (Bld) [#/Vol] 286 10*3/uL 150-450 [facility] Laboratory - Urinalysison Protein Ql (U) Negative [facility] No Panel InformationOrdered By: Julianna Villareal on 10-25-2023 Hepatitis B Surface Antigen Non-Reactive Nonreactive [facility] Hepatitis C Antibody Non-Reactive Nonreactive [facility] Comment on above: Non Reactive: < 0.8 Equivocal: >/= 0.8 to < 1.0 Reactive: >/= 1.0The CDC requires that a reactive/equivocal HCV antibody result be sent out for confirmation. HCV Quant by PCR testing. Miscellaneous Test Comment SEE SCANNED REPORT [facility] Rubella IgG Antibody Reactive Nonreactive [facility] Comment on above: Antibody Results Int erpretation of Immune Status Non Reactive Presumed Non-Immune Equivocal Equivocal Reactive Presumed Immune RBC Auto (Bld) [#/Vol]Ordere d By: Julianna Villareal on 10-25-2023 RBC (Bld) [#/Vol] 4.58 10*6/uL 4.2-5.4 [facility] Serum Treponema species anti body detectionOrdered By: Julianna Villareal on 10-25-2023 Treponema sp Ab Ql (S) Non-Reactive [facility] Whole blood hemoglobin A1c/t otal hemoglobin ratio (mass fraction)Ordered By: Venessa Newby on 10-25-2023 HbA1c (Bld) [Mass fraction] 5.1 % 3.8-5.6 [facility] Comment on above: Normal < 5.7 % Predi abetic 5.7 - 6.4 % Diabetic >or= 6.5 % Please note range changes. Cervical or vagninal specime n microscopic examination by cytology stain (reported asOrdered By: Venessa Newby on 10-12-2023 Cytology report Cyto stain Doc (Cvx/Vag) Comment . [facility] Comment on above: The Pap smear is a s creening test designed to aid in thedetection of premalignant and malignant conditions of theuterine cervix. It is not a diagnostic procedure andshould not be used as the sole means of detecting cervicalcancer. Both false-positive and false-negative reports dooccur. Chlamydia trachomatis rRNA d etection by probe and target amplification methodOrdered By: Julianna Villareal on 10-12-2023 C. trachomatis rRNA EDUARDO+probe Ql (Unsp spec) Negative Negative [facility] Laboratory - CytologyOrdered By: Venessa Newby on 10-12-2023 Stitcher Tape Controlled Machine Cyto stain Nom (Cvx/Vag) [ID] Comment . [facility] Comment on above: Luther Dobson totflorinaologist (ASCP) Laboratory - Microbiology an d Antimicrobial susceptibilityOrdered By: Julianna Villareal on 10-12-2023 N. gonorrhoeae DNA EDUARDO+probe Ql (Unsp spec) Negative Negative [facility] Comment on above: Performed at: =G - [address] [id number] Director: Machelle Ambrocio MD, Phone: [phone] Laboratory - Miscellaneous t estsOrdered By: Venessa Newby on 10-12-2023 Service comment (Unsp spec) [Interp] . . [facility] No Panel InformationOrdered By: Venessa Newby on 10-12-2023 Human Papillomavirus Screen Comment . [facility] Comment on above: The HPV DNA reflex c kathryn were not met with this specimenresult therefore, no HPV testing was performed.Performed at: [facility] [place] [address] [place], [place] [id number] Director: Washington Calvo MD, Phone: [phone] at: [facility] - [facility] [address] [id number] Director: Machelle Ambrocio MD, Phone: [phone] Thin prep Papanicolaou smear with manual screeningOrdered By: Venessa Newby on 10-12-2023 Thin prep Papanicolaou smear with manual screening Comment . [facility] Comment on above: NEGATIVE FOR INTRAEP ITHELIAL LESION OR MALIGNANCY. This liquid based Th inPrep(R) pap test was screened withthe use of an image guided system. No Panel InformationOrdered By: Yola Schaffer on 09-29-2023 Estradiol (E2) Level 911.3 pg/mL [facility] Comment on above: NORMAL REFERENCE RAN GES FEMALE FOLLICULAR 21.4 - 164.8 pg/mL MID-CYCLE PEAK 49.9 - 367.2 pg/mL LUTEAL 40.2 - 259.0 pg/mL POST-MENOPAUSAL ON MHT <11.0 - 462.1 pg/mL NOT ON MHT <11.0 - 58.3 pg/mL MALE <11.0 - 52.5 pg/mL NOTE:[employer] HAS CONFIRMED THE DRUG FULVETRANT (FASLODEX) MAY CAUSE FALSELY ELEVATED ESTRADIOL RESULTS WHEN USING THIS TEST METHOD. IF PATIENT IS TAKING FULVESTRANT AN ALTERNATIVE METHOD SHOULD BE USED TO DETERMINE ESTRADIOL CONCENTRATION. Serum or plasma choriogonado tropin detectionOrdered By: Yola Schaffer on 09-29-2023 HCG ( [place]) [place]l [address] mIU/mL <4 [facility] Comment on above: hCG levels with Gest ational AgeGestational Age hCG mIU/mL (IU/L)0.2 - 1 week 5 - 501-2 weeks 50 - 5002-3 weeks 100 - 91100-5 weeks 500 - 258624-3 weeks 1000 - 041231-2 weeks 78480 - 100,0006-8 weeks 83671 - 200,0002-3 months 35857 - 100,000 Serum or plasma progesterone measurement (mass/volume)Ordered By: Yola Schaffer on 09-29-2023 Progesterone [Mass/Vol] 51.51 ng/mL See Comment [facility] Comment on above: Progesterone Referen ce Table: UNITS Female: Follicular 0.15 - 1.40 ng/mL Luteal 3.34 - 25.56 ng/mL Mid-luteal 4.44 - 28.03 ng/mL Postmenopausal 0.0 - 0.73 ng/mL : 1st Trimester 11.22 - 90.00 ng/mL 2nd Trimester 25.55 - 89.40 ng/mL 3rd Trimester 48.40 -422.50 ng/mL No Panel InformationOrdered By: Yola Schaffer on 09-22-2023 Estradiol (E2) Level 839.2 pg/mL [facility] Comment on above: NORMAL REFERENCE RAN GES FEMALE FOLLICULAR 21.4 - 164.8 pg/mL MID-CYCLE PEAK 49.9 - 367.2 pg/mL LUTEAL 40.2 - 259.0 pg/mL POST-MENOPAUSAL ON MHT <11.0 - 462.1 pg/mL NOT ON MHT <11.0 - 58.3 pg/mL MALE <11.0 - 52.5 pg/mL NOTE:SIEMENS HAS CONFIRMED THE DRUG FULVETRANT (FASLODEX) MAY CAUSE FALSELY ELEVATED ESTRADIOL RESULTS WHEN USING THIS TEST METHOD. IF PATIENT IS TAKING FULVESTRANT AN ALTERNATIVE METHOD SHOULD BE USED TO DETERMINE ESTRADIOL CONCENTRATION. Serum or plasma choriogonado tropin detectionOrdered By: Yola Schaffer on 09-22-2023 HCG ( test) Ql 2686 mIU/mL <4 [facility] Comment on above: hCG levels with Gest ational AgeGestational Age hCG mIU/mL (IU/L)0.2 - 1 week 5 - 501-2 weeks 50 - 5002-3 weeks 100 - 84258-9 weeks 500 - 908328-1 weeks 1000 - 212776-7 weeks 63231 - 100,0006-8 weeks 85514 - 200,0002-3 months 60685 - 100,000 Serum or plasma progesterone measurement (mass/volume)Ordered By: Yola Schaffer on 09-22-2023 Progesterone [Mass/Vol] 61.23 ng/mL See Comment [facility] Comment on above: Progesterone Referen ce Table: UNITS Female: Follicular 0.15 - 1.40 ng/mL Luteal 3.34 - 25.56 ng/mL Mid-luteal 4.44 - 28.03 ng/mL Postmenopausal 0.0 - 0.73 ng/mL : 1st Trimester 11.22 - 90.00 ng/mL 2nd Trimester 25.55 - 89.40 ng/mL 3rd Trimester 48.40 -422.50 ng/mL Absolute lymphocyte countOrd ered By: Karlos Miller on 09-19-2023 Lymphocytes Auto (Unsp spec) [#/Vol] 2.66 10*3/uL 0.83-4.51 [facility] Automated lymphocyte count a s percentage of total leukocytesOrdered By: Karlos Miller on 09-19-2023 Lymphocytes/100 WBC Auto (Unsp spec) 16.6 % 19-41 [facility] Basophil percentageOrdered B y: Karlos Miller on 09-19-2023 Basophil percentage 0 SEEN /hpf 0-5 [facility] Basophils/100 WBC (Bld) 0.3 % 0-1 [facility] Chloride [Moles/Vol] 106 mmol/L 98-107 [facility] Eosinophils/100 WBC (Bld) 0.2 % 0-5 [facility] Glucose [Mass/Vol] 116 mg/dL 74-106 [facility] Comment on above: Fasting Glucose resu lt from 100 to 125 mg/dL suggests IMPAIRED HOMEOSTASIS per A.D.A. criteria. Hemoglobin (Bld) [Mass/Vol] 13.7 g/dL 12.0-15.0 [facility] Monocytes/100 WBC (Bld) 4.6 % 0-10 [facility] Neutrophils (Bld) [#/Vol] 12.4 10*3/uL 2.0-7.7 [facility] Neutrophils/100 WBC (Bld) 77.7 % 47-70 [facility] Potassium [Moles/Vol] 3.3 mmol/L 3.5-5.1 [facility] Sodium [Moles/Vol] 140 mmol/L 136-145 [facility] WBC (Bld) [#/Vol] 16.0 10*3/uL 4.4-11.0 [facility] Bilirubin Test strip Ql (U)O rdered By: Karlos Miller on 09-19-2023 Bilirubin Ql (U) Negative Negative [facility] Determination of erythrocyte mean corpuscular volume (MCV)Ordered By: Karlos Miller on 09-19-2023 MCV (RBC) [Entitic vol] 90.3 fL 81-99 [facility] Erythrocyte distribution wid th ratioOrdered By: Karlos Miller on 09-19-2023 Erythrocyte distribution width (RBC) [Ratio] 13.7 % 11.6-14.6 [facility] Erythrocyte distribution wid th standard deviationOrdered By: Karlos Miller on 09-19-2023 Erythrocyte distribution width (RBC) [Entitic vol] 45.1 fL 35.1-43.9 [facility] Hematocrit Auto (Bld) [Volum e fraction]Ordered By: Karlos Miller on 09-19-2023 Hematocrit (Bld) [Volume fraction] 42.8 % 37-47 [facility] Immature granulocytes/100 WB C Auto (Bld)Ordered By: Karlos Miller on 09-19-2023 Immature granulocytes/100 WBC (Bld) 0.600 % 0.0-0.9 [facility] Comment on above: IG% - Immature Granu locytes (promyelocytes, myelocytes and metamyelocytes) > 1% indicates that a LEFT SHIFT is Present. Ketones Test strip Ql (U)Ord ered By: Karlos Miller on 09-19-2023 Ketones Ql (U) Negative Negative [facility] Laboratory - Chemistry and C hemistry - challengeOrdered By: Karlos Miller on 09-19-2023 CO2 [Moles/Vol] 23.0 mmol/L 21.0-32.0 [facility] Urea nitrogen/Creatinine [Mass ratio] 12.3 mg/mg 10-20 [facility] Laboratory - Hematology and Cell countsOrdered By: Karlos Miller on 09-19-2023 MCH (RBC) [Entitic mass] 28.9 pg 27.0-32.0 [facility] MCHC (RBC) [Mass/Vol] 32.0 g/dL 32-36 [facility] Nucleated RBC/100 WBC (Bld) [Ratio] 0 % 0-5 [facility] Platelet mean volume (Bld) [Entitic vol] 8.7 fL 6.2-12.0 [facility] Platelets (Bld) [#/Vol] 312 10*3/uL 150-450 [facility] Mucus LM Ql (Urine sed)Order ed By: Karlos Miller on 09-19-2023 Mucus Ql (Urine sed) 0 SEEN /hpf [facility] Nitrite Test strip Ql (U)Ord ered By: Karlos Miller on 09-19-2023 Nitrite Ql (U) Negative Negative [facility] No Panel InformationOrdered By: Karlos Miller on 09-19-2023 Urine RBC 5-10 SEEN /hpf 0-5 [facility] Estimated Creatinine Clearance Calc 126.10 ml/min [facility] Estimated GFR (MDRD) Amer 141 mL/min >60 [facility] Comment on above: GFR Calc Estimated GFR (MDRD) Non-Af Amer 117 mL/min >60 [facility] Comment on above: Non- GFR Calc Protein Test strip Ql (U)Ord ered By: Karlos Miller on 09-19-2023 Protein Ql (U) Negative Negative [facility] RBC Auto (Bld) [#/Vol]Ordere d By: Karlos Miller on 09-19-2023 RBC (Bld) [#/Vol] 4.74 10*6/uL 4.2-5.4 [facility] Serum or plasma calcium shannon urement (mass/volume)Ordered By: Karlos Miller on 09-19-2023 Calcium [Mass/Vol] 8.7 mg/dL 8.5-10.1 [facility] Serum or plasma choriogonado tropin detectionOrdered By: Karlos Miller on 09-19-2023 HCG ( test) Ql 1366 mIU/mL <4 [facility] Comment on above: hCG levels with Gest ational AgeGestational Age hCG mIU/mL (IU/L)0.2 - 1 week 5 - 501-2 weeks 50 - 5002-3 weeks 100 - 81086-2 weeks 500 - 486539-6 weeks 1000 - 380393-6 weeks 14210 - 100,0006-8 weeks 89380 - 200,0002-3 months 43194 - 100,000 Serum or plasma creatinine m easurement (mass/volume)Ordered By: Karlos Miller on 09-19-2023 Creatinine [Mass/Vol] 0.65 mg/dL 0.55-1.02 [facility] Comment on above: The validity of the calculated GFR & GFRAA in patients over 70 years has not been determined. Clinical correlation is essential. Serum or plasma urea nitroge n measurement (mass/volume)Ordered By: Karlos Miller on 09-19-2023 Urea nitrogen [Mass/Vol] 8 mg/dL 7-18 [facility] Squamous epithelial cells de tection in urine sediment by light microscopyOrdered By: Karlos Miller on 09-19-2023 Epithelial cells.squamous LM Ql (Urine sed) 0 SEEN /hpf 5-10 [facility] Thin prep Papanicolaou smear with manual screeningOrdered By: Karlos Miller on 09-19-2023 Thin prep Papanicolaou smear with manual screening 11 5-15 [facility] Urine blood detectionOrdered By: Karlos Miller on 09-19-2023 RBC Ql (U) 50 /ul Negative [facility] Urine clarityOrdered By: Jen Miller on 09-19-2023 Clarity (U) Sl. Cloudy Clear [facility] Urine color determinationOrd ered By: Karlos Miller on 09-19-2023 Color (U) Yellow Yellow [facility] Urine glucose detectionOrder ed By: Karlos Miller on 09-19-2023 Glucose Ql (U) Normal mg/dl Normal [facility] Urine leukocyte esterase det ection by dipstickOrdered By: Karlos Miller on 09-19-2023 Leukocyte esterase Test strip Ql (U) Negative Negative [facility] Urine pHOrdered By: Karlos stanford on 09-19-2023 pH (U) 8.0 [pH] 5.0 - 8.0 [facility] Urine sediment bacteria coun t by microscopy (number/high power field)Ordered By: Karlos Miller on 09-19-2023 Bacteria LM.HPF (Urine sed) [#/Area] 0 /[HPF] None Seen [facility] Urine specific gravity measu rementOrdered By: Karlos Miller on 09-19-2023 Specific gravity (U) [Rel density] 1.010 1.002-1.030 [facility] Urine urobilinogen measureme ntOrdered By: Karlos Miller on 09-19-2023 Urobilinogen Ql (U) Normal mg/dl Normal [facility] No Panel InformationOrdered By: Yola Schaffer on 09-15-2023 Estradiol (E2) Level 998.4 pg/mL [facility] Comment on above: NORMAL REFERENCE RAN GES FEMALE FOLLICULAR 21.4 - 164.8 pg/mL MID-CYCLE PEAK 49.9 - 367.2 pg/mL LUTEAL 40.2 - 259.0 pg/mL POST-MENOPAUSAL ON MHT <11.0 - 462.1 pg/mL NOT ON MHT <11.0 - 58.3 pg/mL MALE <11.0 - 52.5 pg/mL NOTE:[employer] HAS CONFIRMED THE DRUG FULVETRANT (FASLODEX) MAY CAUSE FALSELY ELEVATED ESTRADIOL RESULTS WHEN USING THIS TEST METHOD. IF PATIENT IS TAKING FULVESTRANT AN ALTERNATIVE METHOD SHOULD BE USED TO DETERMINE ESTRADIOL CONCENTRATION. Serum or plasma choriogonado tropin detectionOrdered By: Yola Schaffer on 09-15-2023 HCG ( test) Ql 321 mIU/mL <4 [facility] Comment on above: hCG levels with Gest ational AgeGestational Age hCG mIU/mL (IU/L)0.2 - 1 week 5 - 501-2 weeks 50 - 5002-3 weeks 100 - 24851-1 weeks 500 - 455290-7 weeks 1000 - 110326-8 weeks 52234 - 100,0006-8 weeks 95022 - 200,0002-3 months 53292 - 100,000 Serum or plasma progesterone measurement (mass/volume)Ordered By: Yola Schaffer on 09-15-2023 Progesterone [Mass/Vol] 53.34 ng/mL See Comment [facility] Comment on above: Progesterone Referen ce Table: UNITS Female: Follicular 0.15 - 1.40 ng/mL Luteal 3.34 - 25.56 ng/mL Mid-luteal 4.44 - 28.03 ng/mL Postmenopausal 0.0 - 0.73 ng/mL : 1st Trimester 11.22 - 90.00 ng/mL 2nd Trimester 25.55 - 89.40 ng/mL 3rd Trimester 48.40 -422.50 ng/mL No Panel InformationOrdered By: Yola Schaffer on 09-13-2023 Estradiol (E2) Level 631.1 pg/mL [facility] Comment on above: NORMAL REFERENCE RAN GES FEMALE FOLLICULAR 21.4 - 164.8 pg/mL MID-CYCLE PEAK 49.9 - 367.2 pg/mL LUTEAL 40.2 - 259.0 pg/mL POST-MENOPAUSAL ON MHT <11.0 - 462.1 pg/mL NOT ON MHT <11.0 - 58.3 pg/mL MALE <11.0 - 52.5 pg/mL NOTE:[employer] HAS CONFIRMED THE DRUG FULVETRANT (FASLODEX) MAY CAUSE FALSELY ELEVATED ESTRADIOL RESULTS WHEN USING THIS TEST METHOD. IF PATIENT IS TAKING FULVESTRANT AN ALTERNATIVE METHOD SHOULD BE USED TO DETERMINE ESTRADIOL CONCENTRATION. Serum or plasma choriogonado tropin detectionOrdered By: Yola Schaffer on 09-13-2023 HCG ( test) Ql 142 mIU/mL <4 [facility] Comment on above: hCG levels with Gest ational AgeGestational Age hCG mIU/mL (IU/L)0.2 - 1 week 5 - 501-2 weeks 50 - 5002-3 weeks 100 - 17131-0 weeks 500 - 960382-9 weeks 1000 - 498808-7 weeks 25882 - 100,0006-8 weeks 41218 - 200,0002-3 months 49098 - 100,000 Serum or plasma progesterone measurement (mass/volume)Ordered By: Yola Schaffer on 09-13-2023 Progesterone [Mass/Vol] 68.72 ng/mL See Comment [facility] Comment on above: Progesterone Referen ce Table: UNITS Female: Follicular 0.15 - 1.40 ng/mL Luteal 3.34 - 25.56 ng/mL Mid-luteal 4.44 - 28.03 ng/mL Postmenopausal 0.0 - 0.73 ng/mL : 1st Trimester 11.22 - 90.00 ng/mL 2nd Trimester 25.55 - 89.40 ng/mL 3rd Trimester 48.40 -422.50 ng/mL Serum or plasma thyroid stim ulating hormone (TSH) measurement (units/volume)Ordered By: Yola Schaffer on 09-13-2023 TSH Qn 1.89 uIU/mL 0.358-3.74 [facility] Serum or plasma choriogonado tropin detectionOrdered By: Yola Schaffer on 2023 HCG ( test) Ql 86 mIU/mL <4 [facility] Comment on above: hCG levels with Gest ational AgeGestational Age hCG mIU/mL (IU/L)0.2 - 1 week 5 - 501-2 weeks 50 - 5002-3 weeks 100 - 27910-9 weeks 500 - 128274-7 weeks 1000 - 667911-9 weeks 96048 - 100,0006-8 weeks 34952 - 200,0002-3 months 03682 - 100,000 Serum or plasma progesterone measurement (mass/volume)Ordered By: Yola Schaffer on 2023 Progesterone [Mass/Vol] 73.77 ng/mL See Comment [facility] Comment on above: Progesterone Referen ce Table: UNITS Female: Follicular 0.15 - 1.40 ng/mL Luteal 3.34 - 25.56 ng/mL Mid-luteal 4.44 - 28.03 ng/mL Postmenopausal 0.0 - 0.73 ng/mL : 1st Trimester 11.22 - 90.00 ng/mL 2nd Trimester 25.55 - 89.40 ng/mL 3rd Trimester 48.40 -422.50 ng/mL No Panel InformationOrdered By: Yola Schaffer on 09-06-2023 Estradiol (E2) Level 586.2 pg/mL [facility] Comment on above: NORMAL REFERENCE RAN GES FEMALE FOLLICULAR 21.4 - 164.8 pg/mL MID-CYCLE PEAK 49.9 - 367.2 pg/mL LUTEAL 40.2 - 259.0 pg/mL POST-MENOPAUSAL ON MHT <11.0 - 462.1 pg/mL NOT ON MHT <11.0 - 58.3 pg/mL MALE <11.0 - 52.5 pg/mL NOTE:[employer] HAS CONFIRMED THE DRUG FULVETRANT (FASLODEX) MAY CAUSE FALSELY ELEVATED ESTRADIOL RESULTS WHEN USING THIS TEST METHOD. IF PATIENT IS TAKING FULVESTRANT AN ALTERNATIVE METHOD SHOULD BE USED TO DETERMINE ESTRADIOL CONCENTRATION. Serum or plasma progesterone measurement (mass/volume)Ordered By: Yola Schaffer on 09-06-2023 Progesterone [Mass/Vol] 66.90 ng/mL See Comment [facility] Comment on above: Progesterone Referen ce Table: UNITS Female: Follicular 0.15 - 1.40 ng/mL Luteal 3.34 - 25.56 ng/mL Mid-luteal 4.44 - 28.03 ng/mL Postmenopausal 0.0 - 0.73 ng/mL : 1st Trimester 11.22 - 90.00 ng/mL 2nd Trimester 25.55 - 89.40 ng/mL 3rd Trimester 48.40 -422.50 ng/mL No Panel InformationOrdered By: Yola Schaffer on 08-25-2023 Estradiol (E2) Level 1350.2 pg/mL [facility] Comment on above: NORMAL REFERENCE RAN GES FEMALE FOLLICULAR 21.4 - 164.8 pg/mL MID-CYCLE PEAK 49.9 - 367.2 pg/mL LUTEAL 40.2 - 259.0 pg/mL POST-MENOPAUSAL ON MHT <11.0 - 462.1 pg/mL NOT ON MHT <11.0 - 58.3 pg/mL MALE <11.0 - 52.5 pg/mL NOTE:[employer] HAS CONFIRMED THE DRUG FULVETRANT (FASLODEX) MAY CAUSE FALSELY ELEVATED ESTRADIOL RESULTS WHEN USING THIS TEST METHOD. IF PATIENT IS TAKING FULVESTRANT AN ALTERNATIVE METHOD SHOULD BE USED TO DETERMINE ESTRADIOL CONCENTRATION. Luteinizing Hormone 11.8 mIU/mL [facility] Comment on above: NORMAL REFERENCE RAN GES FEMALE FOLLICULAR 1.9 - 26.2 mIU/mL MID-CYCLE PEAK 22.8 - 76.1 mIU/mL LUTEAL 0.6 - 16.6 mIU/mL POST-MENOPAUSAL ON MHT 1.1 - 52.4 mIU/mL NOT ON MHT 8.6 - 61.8 mIU/mL MALE 1.2 - 10.6 mIU/mL Serum or plasma progesterone measurement (mass/volume)Ordered By: Yola Schaffer on 08-25-2023 Progesterone [Mass/Vol] 0.27 ng/mL See Comment [facility] Comment on above: Progesterone Referen ce Table: UNITS Female: Follicular 0.15 - 1.40 ng/mL Luteal 3.34 - 25.56 ng/mL Mid-luteal 4.44 - 28.03 ng/mL Postmenopausal 0.0 - 0.73 ng/mL : 1st Trimester 11.22 - 90.00 ng/mL 2nd Trimester 25.55 - 89.40 ng/mL 3rd Trimester 48.40 -422.50 ng/mL No Panel InformationOrdered By: Yola Schaffer on 08-23-2023 Estradiol (E2) Level 104.4 pg/mL [facility] Comment on above: NORMAL REFERENCE RAN GES FEMALE FOLLICULAR 21.4 - 164.8 pg/mL MID-CYCLE PEAK 49.9 - 367.2 pg/mL LUTEAL 40.2 - 259.0 pg/mL POST-MENOPAUSAL ON MHT <11.0 - 462.1 pg/mL NOT ON MHT <11.0 - 58.3 pg/mL MALE <11.0 - 52.5 pg/mL NOTE:[employer] HAS CONFIRMED THE DRUG FULVETRANT (FASLODEX) MAY CAUSE FALSELY ELEVATED ESTRADIOL RESULTS WHEN USING THIS TEST METHOD. IF PATIENT IS TAKING FULVESTRANT AN ALTERNATIVE METHOD SHOULD BE USED TO DETERMINE ESTRADIOL CONCENTRATION. Luteinizing Hormone 7.7 mIU/mL [facility] Comment on above: NORMAL REFERENCE RAN GES FEMALE FOLLICULAR 1.9 - 26.2 mIU/mL MID-CYCLE PEAK 22.8 - 76.1 mIU/mL LUTEAL 0.6 - 16.6 mIU/mL POST-MENOPAUSAL ON MHT 1.1 - 52.4 mIU/mL NOT ON MHT 8.6 - 61.8 mIU/mL MALE 1.2 - 10.6 mIU/mL Serum or plasma progesterone measurement (mass/volume)Ordered By: Yola Schaffer on 08-23-2023 Progesterone [Mass/Vol] ng/mL See Comment [facility] Comment on above: Progesterone Referen ce Table: UNITS Female: Follicular 0.15 - 1.40 ng/mL Luteal 3.34 - 25.56 ng/mL Mid-luteal 4.44 - 28.03 ng/mL Postmenopausal 0.0 - 0.73 ng/mL : 1st Trimester 11.22 - 90.00 ng/mL 2nd Trimester 25.55 - 89.40 ng/mL 3rd Trimester 48.40 -422.50 ng/mL No Panel InformationOrdered By: Yola Schaffer on 08-21-2023 Estradiol (E2) Level 30.4 pg/mL [facility] Comment on above: NORMAL REFERENCE RAN GES FEMALE FOLLICULAR 21.4 - 164.8 pg/mL MID-CYCLE PEAK 49.9 - 367.2 pg/mL LUTEAL 40.2 - 259.0 pg/mL POST-MENOPAUSAL ON MHT <11.0 - 462.1 pg/mL NOT ON MHT <11.0 - 58.3 pg/mL MALE <11.0 - 52.5 pg/mL NOTE:[employer] HAS CONFIRMED THE DRUG FULVETRANT (FASLODEX) MAY CAUSE FALSELY ELEVATED ESTRADIOL RESULTS WHEN USING THIS TEST METHOD. IF PATIENT IS TAKING FULVESTRANT AN ALTERNATIVE METHOD SHOULD BE USED TO DETERMINE ESTRADIOL CONCENTRATION. Luteinizing Hormone 21.7 mIU/mL [facility] Comment on above: NORMAL REFERENCE RAN GES FEMALE FOLLICULAR 1.9 - 26.2 mIU/mL MID-CYCLE PEAK 22.8 - 76.1 mIU/mL LUTEAL 0.6 - 16.6 mIU/mL POST-MENOPAUSAL ON MHT 1.1 - 52.4 mIU/mL NOT ON MHT 8.6 - 61.8 mIU/mL MALE 1.2 - 10.6 mIU/mL Serum or plasma progesterone measurement (mass/volume)Ordered By: Yola Schaffer on 08-21-2023 Progesterone [Mass/Vol] ng/mL See Comment [facility] Comment on above: Progesterone Referen ce Table: UNITS Female: Follicular 0.15 - 1.40 ng/mL Luteal 3.34 - 25.56 ng/mL Mid-luteal 4.44 - 28.03 ng/mL Postmenopausal 0.0 - 0.73 ng/mL : 1st Trimester 11.22 - 90.00 ng/mL 2nd Trimester 25.55 - 89.40 ng/mL 3rd Trimester 48.40 -422.50 ng/mL No Panel InformationOrdered By: Yola Schaffer on 08-15-2023 Estradiol (E2) Level 42.6 pg/mL [facility] Comment on above: NORMAL REFERENCE RAN GES FEMALE FOLLICULAR 21.4 - 164.8 pg/mL MID-CYCLE PEAK 49.9 - 367.2 pg/mL LUTEAL 40.2 - 259.0 pg/mL POST-MENOPAUSAL ON MHT <11.0 - 462.1 pg/mL NOT ON MHT <11.0 - 58.3 pg/mL MALE <11.0 - 52.5 pg/mL NOTE:[employer] HAS CONFIRMED THE DRUG FULVETRANT (FASLODEX) MAY CAUSE FALSELY ELEVATED ESTRADIOL RESULTS WHEN USING THIS TEST METHOD. IF PATIENT IS TAKING FULVESTRANT AN ALTERNATIVE METHOD SHOULD BE USED TO DETERMINE ESTRADIOL CONCENTRATION. Follicle Stimulating Hormone 5.0 mIU/mL [facility] Comment on above: NORMAL REFERENCE RAN GES FEMALE FOLLICULAR 2.3 - 12.6 mIU/mL MID-CYCLE PEAK 5.2 - 17.5 mIU/mL LUTEAL 1.7 - 12.9 mIU/mL POST-MENOPAUSAL ON MHT 5.9 - 72.8 mIU/mL NOT ON MHT 12.7 - 132.2 mlU/mL MALE 0.7 - 10.8 mIU/mL Luteinizing Hormone 4.9 mIU/mL [facility] Comment on above: NORMAL REFERENCE RAN GES FEMALE FOLLICULAR 1.9 - 26.2 mIU/mL MID-CYCLE PEAK 22.8 - 76.1 mIU/mL LUTEAL 0.6 - 16.6 mIU/mL POST-MENOPAUSAL ON MHT 1.1 - 52.4 mIU/mL NOT ON MHT 8.6 - 61.8 mIU/mL MALE 1.2 - 10.6 mIU/mL Serum or plasma progesterone measurement (mass/volume)Ordered By: Yola Schaffer on 08-15-2023 Progesterone [Mass/Vol] 0.21 ng/mL See Comment [facility] Comment on above: Progesterone Referen ce Table: UNITS Female: Follicular 0.15 - 1.40 ng/mL Luteal 3.34 - 25.56 ng/mL Mid-luteal 4.44 - 28.03 ng/mL Postmenopausal 0.0 - 0.73 ng/mL : 1st Trimester 11.22 - 90.00 ng/mL 2nd Trimester 25.55 - 89.40 ng/mL 3rd Trimester 48.40 -422.50 ng/mL Serum or plasma thyroid stim ulating hormone (TSH) measurement (units/volume)Ordered By: Yola Schaffer on 08-15-2023 TSH Qn 2.46 uIU/mL 0.358-3.74 [facility] PREG SERUM QUANTon HCG QUANTITATIVE <1 Normal 0 - 6 [facility] Comment on above: Result Comment: Refe rence Range: Male: <5 Female: Non: <5 1 - 7 days : 5 - 50 1 - 2 weeks: 50 - 500 2 - 3 weeks: 100 - 5000 3 - 4 weeks: 500 - 10,000 4 - 5 weeks: 1000 - 50,000 5 - 6 weeks: 10,000 - 100,000 6 - 8 weeks: 15,000 - 200,000 2 - 3 months: 10,000 - 100,000 2ND TRIMESTER 3000-50,000 3RD TRIMESTER 1000-50,000 Performed By: #### 2 [id number] #### [facility],[address] [place] [address] No Panel InformationOrdered By: Yola Schaffer on 08-07-2023 Estradiol (E2) Level 268.0 pg/mL [facility] Comment on above: NORMAL REFERENCE RAN GES FEMALE FOLLICULAR 21.4 - 164.8 pg/mL MID-CYCLE PEAK 49.9 - 367.2 pg/mL LUTEAL 40.2 - 259.0 pg/mL POST-MENOPAUSAL ON MHT <11.0 - 462.1 pg/mL NOT ON MHT <11.0 - 58.3 pg/mL MALE <11.0 - 52.5 pg/mL NOTE:[employer] HAS CONFIRMED THE DRUG FULVETRANT (FASLODEX) MAY CAUSE FALSELY ELEVATED ESTRADIOL RESULTS WHEN USING THIS TEST METHOD. IF PATIENT IS TAKING FULVESTRANT AN ALTERNATIVE METHOD SHOULD BE USED TO DETERMINE ESTRADIOL CONCENTRATION. Serum or plasma choriogonado tropin detectionOrdered By: Yola Schaffer on 08-07-2023 HCG ( test) Ql 13 mIU/mL <4 [facility] Comment on above: hCG levels with Gest ational AgeGestational Age hCG mIU/mL (IU/L)0.2 - 1 week 5 - 501-2 weeks 50 - 5002-3 weeks 100 - 73490-7 weeks 500 - 607228-5 weeks 1000 - 248371-2 weeks 78795 - 100,0006-8 weeks 22023 - 200,0002-3 months 97399 - 100,000 Serum or plasma progesterone measurement (mass/volume)Ordered By: Yola Schaffer on 08-07-2023 Progesterone [Mass/Vol] 41.43 ng/mL See Comment [facility] Comment on above: Progesterone Referen ce Table: UNITS Female: Follicular 0.15 - 1.40 ng/mL Luteal 3.34 - 25.56 ng/mL Mid-luteal 4.44 - 28.03 ng/mL Postmenopausal 0.0 - 0.73 ng/mL : 1st Trimester 11.22 - 90.00 ng/mL 2nd Trimester 25.55 - 89.40 ng/mL 3rd Trimester 48.40 -422.50 ng/mL Laboratory - Chemistry and C hemistry - challengeOrdered By: Yola Schaffer on 08-05-2023 E2 IA [Moles/Vol] 276.2 pg/mL [facility] Comment on above: NORMAL REFERENCE RAN GES FEMALE FOLLICULAR 21.4 - 164.8 pg/mL MID-CYCLE PEAK 49.9 - 367.2 pg/mL LUTEAL 40.2 - 259.0 pg/mL POST-MENOPAUSAL ON MHT <11.0 - 462.1 pg/mL NOT ON MHT <11.0 - 58.3 pg/mL MALE <11.0 - 52.5 pg/mL NOTE:[employer] HAS CONFIRMED THE DRUG FULVETRANT (FASLODEX) MAY CAUSE FALSELY ELEVATED ESTRADIOL RESULTS WHEN USING THIS TEST METHOD. IF PATIENT IS TAKING FULVESTRANT AN ALTERNATIVE METHOD SHOULD BE USED TO DETERMINE ESTRADIOL CONCENTRATION. Serum or plasma choriogonado tropin detectionOrdered By: Yola Schaffer on 08-05-2023 HCG ( test) Ql 31 mIU/mL <4 [facility] Comment on above: hCG levels with Gest ational AgeGestational Age hCG mIU/mL (IU/L)0.2 - 1 week 5 - 501-2 weeks 50 - 5002-3 weeks 100 - 77163-4 weeks 500 - 785845-3 weeks 1000 - 033382-9 weeks 12988 - 100,0006-8 weeks 86758 - 200,0002-3 months 82477 - 100,000 Serum or plasma progesterone measurement (mass/volume)Ordered By: Yola Schaffer on 08-05-2023 Progesterone [Mass/Vol] 53.90 ng/mL See Comment [facility] Comment on above: Progesterone Referen ce Table: UNITS Female: Follicular 0.15 - 1.40 ng/mL Luteal 3.34 - 25.56 ng/mL Mid-luteal 4.44 - 28.03 ng/mL Postmenopausal 0.0 - 0.73 ng/mL : 1st Trimester 11.22 - 90.00 ng/mL 2nd Trimester 25.55 - 89.40 ng/mL 3rd Trimester 48.40 -422.50 ng/mL Serum or plasma thyroid stim ulating hormone (TSH) measurement (units/volume)Ordered By: Yola Schaffer on 08-05-2023 TSH Qn 2.49 uIU/mL 0.358-3.74 [facility] Serum or plasma choriogonado tropin detectionOrdered By: Yola Schaffer on 08-03-2023 HCG ( test) Ql 36 mIU/mL <4 [facility] Comment on above: hCG levels with Gest ational AgeGestational Age hCG mIU/mL (IU/L)0.2 - 1 week 5 - 501-2 weeks 50 - 5002-3 weeks 100 - 16449-9 weeks 500 - 640816-7 weeks 1000 - 043546-8 weeks 78006 - 100,0006-8 weeks 69843 - 200,0002-3 months 82976 - 100,000 Serum or plasma progesterone measurement (mass/volume)Ordered By: Yola Schaffer on 08-03-2023 Progesterone [Mass/Vol] 49.44 ng/mL See Comment [facility] Comment on above: Progesterone Referen ce Table: UNITS Female: Follicular 0.15 - 1.40 ng/mL Luteal 3.34 - 25.56 ng/mL Mid-luteal 4.44 - 28.03 ng/mL Postmenopausal 0.0 - 0.73 ng/mL : 1st Trimester 11.22 - 90.00 ng/mL 2nd Trimester 25.55 - 89.40 ng/mL 3rd Trimester 48.40 -422.50 ng/mL Estradiol measurementOrdered By: Yola Schaffer on 07-29-2023 E2 IA [Moles/Vol] 279.0 pg/mL [facility] Comment on above: NORMAL REFERENCE RAN GES FEMALE FOLLICULAR 21.4 - 164.8 pg/mL MID-CYCLE PEAK 49.9 - 367.2 pg/mL LUTEAL 40.2 - 259.0 pg/mL POST-MENOPAUSAL ON MHT <11.0 - 462.1 pg/mL NOT ON MHT <11.0 - 58.3 pg/mL MALE <11.0 - 52.5 pg/mL NOTE:[employer] HAS CONFIRMED THE DRUG FULVETRANT (FASLODEX) MAY CAUSE FALSELY ELEVATED ESTRADIOL RESULTS WHEN USING THIS TEST METHOD. IF PATIENT IS TAKING FULVESTRANT AN ALTERNATIVE METHOD SHOULD BE USED TO DETERMINE ESTRADIOL CONCENTRATION. Serum or plasma progesterone measurement (mass/volume)Ordered By: Yola Schaffer on 07-29-2023 Progesterone [Mass/Vol] 54.70 ng/mL See Comment [facility] Comment on above: Progesterone Referen ce Table: UNITS Female: Follicular 0.15 - 1.40 ng/mL Luteal 3.34 - 25.56 ng/mL Mid-luteal 4.44 - 28.03 ng/mL Postmenopausal 0.0 - 0.73 ng/mL : 1st Trimester 11.22 - 90.00 ng/mL 2nd Trimester 25.55 - 89.40 ng/mL 3rd Trimester 48.40 -422.50 ng/mL ANTIMULLERIAN HORMONE [CCL]o n 05-06-2023 Anti Michelle Hormone 4.43 ng/mL Normal 0.89-9.85 [facility] Comment on above: Result Comment: [facility] [address] [place] [address] Salvador Cuenca III, M.D. [id number] Performed By: #### 2 56881 #### [address] [address] HEP B SURFACE AG [CCL]on Hepatitis B Surf. Ag Negative Normal Negative [facility] Comment on above: Result Comment: [facility] [address] [place] [address] Salvador Cuenca III, M.D. [id number] Performed By: #### 2 41634 #### [address] [address] HEPATITIS C AB IA W/CONFIRM [CCL]on 05-06-2023 Hepatitis C Ab IA Negative Normal Negative [facility] Comment on above: Result Comment: The result suggests no evidence of active infection with Hepatitis C virus. Should recent infection be suspected, repeat testing may be considered 4-6 weeks after this draw. [address] [place] [address] Salvador Cuenca III, M.D. [id number] Performed By: #### 2 88552 #### [address] [address] HGB A1C [CCL]on 05-06-2023 HbA1c (Bld) [Mass fraction] 5.0 % Normal 4.3-5.6 [facility] Comment on above: Result Comment: [place] Diabetes Association guidelines indicate that patients with HgbA1c in the range 5.7-6.4% are at increased risk for development of diabetes, and intervention by lifestyle modification may be beneficial. HgbA1c greater or equal to 6.5% is considered diagnostic of diabetes. Performed By: #### 2 66845 #### [address] [address] Hemoglobin A0 97 mg/dL Normal [facility] Comment on above: Result Comment: eAG: (Estimated average glucose) is a calculated value from HgbA1c and is automotive leasing sales representative of the average blood glucose level in the last 2-3 month period. [facility] [address] [place] [address] Salvador Cuenca III, M.D. [id number] Performed By: #### 2 74539 #### [address] [address] PROLACTIN [CCL]on 05-06-2023 Prolactin 10.1 ng/mL Normal 4.5-26.8 [facility] Comment on above: Result Comment: Prol actin test is performed using the [employer] Electrochemiluminescence Immunoassay method. Results obtained with different methods or kits cannot be used interchangeably. [address] [place] [id number] Salvador Cuenca III, M.D. [id number] Performed By: #### 2 91704 #### [address] [address] RPR [CCL]on 05-06-2023 Reagin Ab RPR Ql (S) Non-Reactive Normal Nonreactive [facility] Comment on above: Result Comment: Rapi d plasma reagin (RPR) test detects non-treponemal antibodies. RPR may be reactive in a variety of infectious and non-infectious conditions. Correlation with clinical picture and with treponemal antibody results is required for final interpretation. [facility] [address] [place] [address] Salvador Cuenca III, M.D. [id number] Performed By: #### 2 49719 #### [address] [address] RUBELLA IgG ANTIBODY [CCL]on 05-06-2023 Rubella IgG Ab, Qual Positive Normal Positive [facility] Comment on above: Result Comment: The result suggests recent or past exposure to Rubella virus or history of Rubella vaccination. Positive result may also be seen due to presence of passively-transferred antibodies. Please correlate with patient's history. [address] [address] Salvador Cuenca III, M.D. [id number] Performed By: #### 2 29010 #### [address] [address] SYPHILIS TOTAL W/REFLEX [CCL ]on 05-06-2023 Syphilis Interp Cannot exclude recen t Treponemal infection if specimen collected within 7-10 day Normal [facility] Comment on above: Result Comment: [id number] [place] [address] Salvador Cuenca III, M.D. [id number] Performed By: #### 2 04888 #### [id number] Syphilis Screen Rslt Non-Reactive Normal Nonreactive [facility] Comment on above: Performed By: #### 2 79282 #### [id number] HIV 1/2 COMBO (AG/AB) [CCL]o n 05-05-2023 HIV 1/2 COMBO (AG/AB) [CCL] [facility] Comment on above: Result Comment: _HIV 1/2 COMBO (AG/AB) [CCL]_ SEE SEPARATE REPORT Performed By: #### 2 53903 #### [address] [address] CBC (NO DIFF)on 05-04-2023 CBC panel Auto (Bld) [facility] Comment on above: Result Comment: CBC( WITHOUT DIFFERENTIAL) Performed By: #### 2 61389 #### [address] [address] Erythrocyte distribution width (RBC) [Ratio] 13.4 % Normal 12.0 - 15.6 [facility] Comment on above: Performed By: #### 2 66632 #### [facility],[address] [place] [address] Hematocrit (Bld) [Volume fraction] 43.8 % Normal 34.0 - 46.0 [facility] Comment on above: Performed By: #### 2 13856 #### [facility],[address] [place] [address] Hemoglobin (Bld) [Mass/Vol] 14.2 g/dL Normal 12.0 - 16.0 [facility] Comment on above: Performed By: #### 2 14412 #### [facility],[address] [place] [address] MCH (RBC) [Entitic mass] 29 pg Normal 27 - 33 [facility] Comment on above: Performed By: #### 2 67576 #### [facility],[address] [place] [address] MCHC 33 X10 3 Normal 32 - 36 [facility] Comment on above: Performed By: #### 2 71067 #### [facility],[address] [place], [place] [id number] MCV (RBC) [Entitic vol] 89 fL Normal 80 - 99 [facility] Comment on above: Performed By: #### 2 55290 #### [facility],[address] [place], [place] [id number] PLATELET 333 x10EE3/UL Normal 150 - 450 [facility] Comment on above: Performed By: #### 2 32170 #### [facility],[address] [place] [address] Platelet mean volume (Bld) [Entitic vol] 8.1 fL Normal 6.6 - 10.5 [facility] Comment on above: Performed By: #### 2 62991 #### [facility],[address] [place] [address] RBC 4.95 x 10EE6/UL Normal 4.10 - 5.30 [facility] Comment on above: Performed By: #### 2 24608 #### [facility],[address] [place] [address] WBC 8.6 x 10EE3/UL Normal 4.5 - 10.8 [facility] Comment on above: Performed By: #### 2 58002 #### [facility],[address] [place] [address] PREG SERUM QUANTon 3 HCG QUANTITATIVE <1 Normal 0 - 6 [facility] Comment on above: Result Comment: Refe rence Range: Male: <5 Female: Non: <5 1 - 7 days : 5 - 50 1 - 2 weeks: 50 - 500 2 - 3 weeks: 100 - 5000 3 - 4 weeks: 500 - 10,000 4 - 5 weeks: 1000 - 50,000 5 - 6 weeks: 10,000 - 100,000 6 - 8 weeks: 15,000 - 200,000 2 - 3 months: 10,000 - 100,000 2ND TRIMESTER 3000-50,000 3RD TRIMESTER 1000-50,000 Performed By: #### 2 76855 #### [facility],[address] [place] [address] ANTI MULLERIAN HORMONEon Mullerian inhibiting substance [Mass/Vol] 4.43 ng/mL Normal 0.89-9.85 [facility] Comment on above: Order Comment: Speci men Type: BLOOD SPECIMEN Ordering Facility: [facility] Address: [address] [place] [address] Performed By: #### 2 842-3, AMINAH, 67663-5, 80604-8, 5195-3, 62582-6, TISH, 26534-0 #### [facility] CLIA [id number] [address] [place] [address] [place] BB TYPE & SCREENon 3 ABO O Normal [facility] Comment on above: Performed By: #### 2 [id number] #### [facility],[address] [place] [id number] ANTIBODY SCR Negative Normal [facility] Comment on above: Performed By: #### 2 [id number] #### [facility],[address] [place] [id number] BB TYPE & SCREEN Normal [facility] Comment on above: Result Comment: TYPE , Rh, AND SCREEN Performed By: #### 2 76989 #### [facility],[address] [place] [address] 44566 Rh Nom (Bld) Positive Normal [facility] Comment on above: Performed By: #### 2 46461 #### [facility],[address] [place] [address] 02783 CBC + DIFFon 05-03-2023 Baso # 0.00 x10EE3/UL Normal 0.00 - 0.10 [facility] Comment on above: Performed By: #### 2 60035 #### [facility],[address] [place] [address] 07919 Basophils/100 WBC (Bld) 0.4 % Normal 0.0 - 2.0 [facility] Comment on above: Performed By: #### 2 60515 #### [facility],[address] [place] [address] 57255 CBC + DIFF Normal [facility] Comment on above: Result Comment: CBC- COMPLETE BLOOD COUNT Performed By: #### 2 31055 #### [facility],[address] [place] [address] 27239 EO # 0.10 x10EE3/UL Normal 0.00 - 0.50 [facility] Comment on above: Performed By: #### 2 80668 #### [facility],[address] [place] [address] 55909 Eosinophils/100 WBC (Bld) 1.6 % Normal 0.0 - 7.0 [facility] Comment on above: Performed By: #### 2 22247 #### [facility],[address] [place] [address] Erythrocyte distribution width (RBC) [Ratio] 13.4 % Normal 12.0 - 15.6 [facility] Comment on above: Performed By: #### 2 23136 #### [facility],[address] [place] [address] Hematocrit (Bld) [Volume fraction] 43.8 % Normal 34.0 - 46.0 [facility] Comment on above: Performed By: #### 2 57223 #### [facility],[address] [place] [address] Hemoglobin (Bld) [Mass/Vol] 14.2 g/dL Normal 12.0 - 16.0 [facility] Comment on above: Performed By: #### 2 95092 #### [facility],[address] [place] [address] Lymph # 3.20 x10EE3/UL High 0.80 - 2.80 [facility] Comment on above: Performed By: #### 2 55301 #### [facility],[address] [place] [address] Lymphocytes/100 WBC (Bld) 36.9 % Normal 20.0 - 45.0 [facility] Comment on above: Performed By: #### 2 48444 #### [facility],[address] [place], [place] [address] MANUAL DIFF N/A Normal [facility] Comment on above: Performed By: #### 2 94442 #### [place] [phone] MCH (RBC) [Entitic mass] 29 pg Normal 27 - 33 [facility] Comment on above: Performed By: #### 2 41096 #### [place] [address] MCHC 33 X10 3 Normal 32 - 36 [facility] Comment on above: Performed By: #### 2 77815 #### [facility],[address] [place] [address] MCV (RBC) [Entitic vol] 89 fL Normal 80 - 99 [facility] Comment on above: Performed By: #### 2 64053 #### [facility],[address] [place] [address] [place] # 0.60 x10EE3/UL Normal 0.20 - 1.00 [facility] Comment on above: Performed By: #### 2 03877 #### [place] [address] MONOS % 7.4 % Normal 0.0 - 10.0 [facility] Comment on above: Performed By: #### 2 02418 #### [facility],[address] [place] [address] Morphology Shane (Bld) [Interp] N/A Normal [facility] Comment on above: Performed By: #### 2 02789 #### [facility],[address] [place] [address] Neut # 4.60 x10EE3/UL Normal 1.50 - 7.10 [facility] Comment on above: Performed By: #### 2 22075 #### [place] [address] Neutrophils/100 WBC (Bld) 53.7 % Normal 46.0 - 76.0 [facility] Comment on above: Performed By: #### 2 74014 #### [place] [phone] PLATELET 333 x10EE3/UL Normal 150 - 450 [facility] Comment on above: Performed By: #### 2 79151 #### [facility],[address],[place] [address] Platelet mean volume (Bld) [Entitic vol] 8.1 fL Normal 6.6 - 10.5 [facility] Comment on above: Result Comment: AUTO MATED DIFFERENTIAL Performed By: #### 2 39779 #### [facility],[address] [place] [address] 72490 RBC 4.95 x 10EE6/UL Normal 4.10 - 5.30 [facility] Comment on above: Performed By: #### 2 28785 #### [facility],[address] [place] [address] 76758 WBC 8.6 x 10EE3/UL Normal 4.5 - 10.8 [facility] Comment on above: Performed By: #### 2 20233 #### [facility],[address] [place] [address] 64635 CMP with eGFRon 05-03-2023 AGE 27 years Normal [facility] Comment on above: Performed By: #### 2 65371 #### [facility],[address] [place] [address] 12478 Albumin [Mass/Vol] 4.1 g/dL Normal 3.4 - 5.0 [facility] Comment on above: Performed By: #### 2 37934 #### [facility],[address] [place] [address] 43398 Albumin/Globulin [Mass ratio] 1.3 {ratio} Normal 0.9 - 1.6 [facility] Comment on above: Performed By: #### 2 44786 #### [facility],[address] [place] [address] 16743 ALK PHOS 84 U/L Normal 46 - 116 [facility] Comment on above: Performed By: #### 2 57110 #### [facility],[address] [place] [address] 43992 ALT [Catalytic activity/Vol] 23 U/L Normal 14 - 59 [facility] Comment on above: Performed By: #### 2 45204 #### [facility],[address] [place] [address] 68952 Anion gap [Moles/Vol] 14 mmol/L Normal 10 - 20 [facility] Comment on above: Performed By: #### 2 62009 #### [facility],[address] [place] [address] 64589 AST [Catalytic activity/Vol] 9 U/L Low 13 - 39 [facility] Comment on above: Performed By: #### 2 43423 #### [facility],[address] [place] [address] 17681 B/C RATIO 12 ratio Normal 0 - 30 [facility] Comment on above: Performed By: #### 2 15452 #### [facility],[address] [place] [address] 93719 Bilirubin [Mass/Vol] 0.2 mg/dL Normal 0.2 - 1.0 [facility] Comment on above: Performed By: #### 2 82431 #### [facility],[address] [place] [address] 36908 Calcium [Mass/Vol] 9.1 mg/dL Normal 8.5 - 10.1 [facility] Comment on above: Performed By: #### 2 14425 #### [facility],[address] [place] [address] 77355 Chloride [Moles/Vol] 102 mmol/L Normal 98 - 107 [facility] Comment on above: Performed By: #### 2 99420 #### [facility],[address] [place] [address] 36850 CMP with eGFR Normal [facility] Comment on above: Result Comment: COMP REHENSIVE METABOLIC PANEL Performed By: #### 2 14059 #### [facility],[address] [place] [address] 89989 CO2 [Moles/Vol] 26.4 mmol/L Normal 21.0 - 32.0 [facility] Comment on above: Performed By: #### 2 27984 #### [facility],[address] [place] [address] 29470 Creatinine [Mass/Vol] 0.59 mg/dL Normal 0.55 - 1.02 [facility] Comment on above: Performed By: #### 2 16721 #### [facility],[address] [place] [address] 95655 GFR/1.73 sq M.predicted among non-blacks MDRD (S/P/Bld) [Vol rate/Area] mL/min/{1.73_m2} Normal 60 - 999 [facility] Comment on above: Performed By: #### 2 11760 #### [facility],[address] [place] [address] Result Comment: ACCO RDING TO THE NATIONAL KIDNEY DISEASE EDUCATION PROGRAM(NKDE), A NORMAL eGFR IS A VALUE GREATER THAN OR EQUAL TO 60 ML/MIN/1.73 SQ METERS. CHRONIC KIDNEY DISEASE: <60mL/MIN/1.73 SQ METERS KIDNEY FAILURE: <15mL/MIN/1.73 SQ METERS THIS TEST SHOULD ONLY BE USED FOR PATIENTS 18 YEARS OF AGE AND OLDER. Globulin (S) [Mass/Vol] 3.2 g/dL Normal 1.5 - 3.8 [facility] Comment on above: Performed By: #### 2 08892 #### [facility],[address] [place] [address] 77997 Glucose [Mass/Vol] 81 mg/dL Normal 74 - 106 [facility] Comment on above: Performed By: #### 2 65902 #### [facility],[address] [place] [address] 24350 Potassium [Moles/Vol] 3.5 mmol/L Normal 3.5 - 5.1 [facility] Comment on above: Performed By: #### 2 45238 #### [facility],[address] [place] [address] 53687 Protein [Mass/Vol] 7.3 g/dL Normal 6.4 - 8.2 [facility] Comment on above: Performed By: #### 2 67859 #### [facility],[address] [place] [address] 27824 Sodium [Moles/Vol] 139 mmol/L Normal 136 - 145 [facility] Comment on above: Performed By: #### 2 58022 #### [facility],[address] [place] [address] [place] [address] Urea nitrogen [Mass/Vol] 7 mg/dL Normal 7 - 18 [facility] Comment on above: Performed By: #### 2 28366 #### [facility],[address] [place] [address] 31192 HBV surface Ag Ser Qlon HBV surface Ag Ql (S) Negative Normal Negative [facility] Comment on above: Order Comment: Speci men Type: BLOOD SPECIMEN Ordering Facility: [facility] Address: [address] [place], [place] [address] Performed By: #### 2 842-3, AMINAH 30065-3, 33080-7, 5195-3, 95184-8, TISH, 60879-9 #### [facility] CLIA [id number] [address] [place] [address] [place] HCV Ab Ser Qlon 05-03-2023 HCV Ab Ql (S) Negative Normal Negative [facility] Comment on above: Order Comment: Speci [facility] Type: BLOOD SPECIMEN Ordering Facility: [facility] Address: [address] [place] [address] Result Comment: The result suggests no evidence of active infection with Hepatitis C virus. Should recent infection be suspected, repeat testing may be considered 4-6 weeks after this draw. Performed By: #### 2 842-3, AMINAH, 92736-4, 20705-5, 5195-3, 02155-8, MICHELLE, 28806-3 #### [facility] CLIA [id number] [address] [place], [place] [address] [place] HbA1c (Bld)on 05-03-2023 Average glucose Estimated from glycated hemoglobin (Bld) [Mass/Vol] 97 mg/dL Normal [facility] Comment on above: Order Comment: Rhina dowd Type: BLOOD SPECIMEN Ordering Facility: [facility] Address: [address] [place] [address] Result Comment: eAG: (Estimated average glucose) is a calculated value from HgbA1c and is automotive leasing sales representative of the average blood glucose level in the last 2-3 month period. Performed By: #### 2 842-3, AMINAH, 84701-9, 74305-4, 5195-3, 61613-2, TISH, 74502-0 #### [facility] CLIA [id number] [address] [place] [address] [place] HbA1c (Bld) [Mass fraction] 5.0 % Normal 4.3-5.6 [facility] Comment on above: Order Comment: Rhina dowd Type: BLOOD SPECIMEN Ordering Facility: [facility] Address: [address] [place] [address] Result Comment: Amer ican Diabetes Association guidelines indicate that patients with HgbA1c in the range 5.7-6.4% are at increased risk for development of diabetes, and intervention by lifestyle modification may be beneficial. HgbA1c greater or equal to 6.5% is considered diagnostic of diabetes. Performed By: #### 2 842-3, AMINAH, 52347-8, 86710-0, 5195-3, 15299-9, TISH, 00200-8 #### [facility] CLIA [id number] [address] [place] [address] [place] Prolactin SerPl-mCncon 05-03 Prolactin [Mass/Vol] 10.1 ng/mL Normal 4.5-26.8 [facility] Comment on above: Order Comment: Rhina dowd Type: BLOOD SPECIMEN Ordering Facility: [facility] Address: [address] [place] [address] Result Comment: Prol actin test is performed using the [employer] Electrochemiluminescence Immunoassay method. Results obtained with different methods or kits cannot be used interchangeably. Performed By: #### 2 842-3, RUBIGG, 94641-6, 36134-8, 5195-3, 06590-5, TISH, 19338-3 #### [facility] CLIA [id number] [address] [place] [address] [place] RPR Ser Qlon 05-03-2023 Reagin Ab RPR Ql (S) Non-Reactive Normal Nonreactive [facility] Comment on above: Order Comment: Speci men Type: BLOOD SPECIMEN Ordering Facility: [facility] Address: [address] [place] [address] Result Comment: Rapi d plasma reagin (RPR) test detects non-treponemal antibodies. RPR may be reactive in a variety of infectious and non-infectious conditions. Correlation with clinical picture and with treponemal antibody results is required for final interpretation. Performed By: #### 2 842-3, RUBIGG, 02373-8, 41970-3, 5195-3, 05007-9, TISH, 85359-9 #### [facility] CLIA [id number] [address] [place] [address] [place] RUBELLA IGG ABon 05-03-2023 RUBELLA IGG AB, QUAL Positive Normal [facility] Comment on above: Order Comment: Speci [facility] Type: BLOOD SPECIMEN Ordering Facility: [facility] Address: [address] [place] [address] Result Comment: The result suggests recent or past exposure to Rubella virus or history of Rubella vaccination. Positive result may also be seen due to presence of passively-transferred antibodies. Please correlate with patient's history. Performed By: #### 2 842-3, RUBIGG, 47892-4, 74797-8, 5195-3, 37336-8, TISH, 74002-7 #### [facility] CLIA [id number] [address] [place] [address] [place] Reagin and Treponema pallidu m IgG and IgM [Interp]on 05-03-2023 T. pallidum IgG+IgM IA Ql (S) Non-Reactive Normal Nonreactive [facility] Comment on above: Order Comment: Speci men Type: BLOOD SPECIMEN Ordering Facility: [facility] Address: [address] [place] [address] Performed By: #### 2 842-3, AMINAH, 18621-1, 88377-8, 5195-3, 08525-3, TISH, 78678-0 #### [facility] CLIA [id number] [address] [place] [address] [place] Reagin+T pallidum IgG+IgM Se rPl-Impon 05-03-2023 Reagin and Treponema pallidum IgG and IgM [Interp] Cannot exclude recent Treponemal infection if specimen collected within 7-10 days after appearance of suspect lesions or 2-3 weeks after an exposure. Clinical correlation is required. Normal [facility] Comment on above: Order Comment: Speci men Type: BLOOD SPECIMEN Ordering Facility: [facility] Address: [address] [place] [address] Performed By: #### 2 842-3, AMINAH, 54675-3, 60215-9, 5195-3, 18407-1, TISH, 22687-6 #### [facility] CLIA [id number] [address] [place] [address] [place] TSHon 05-03-2023 TSH Qn 1.44 m[IU]/L Normal 0.35 - 3.74 [facility] Comment on above: Performed By: #### 2 12327 #### [facility],[address] [place] [address] 80825 VITAMIN D, 25 HYDROXYon VitD 28.80 ng/mL Low 30.00 - 100 [facility] Comment on above: Result Comment: 25-O HD3 indicates both endogenous production and supplementation. 25-OHD2 is an indicator of exogenous sources, such as diet or supplementation. Therapy is based on measurement of Total 25-OHD, with levels <20 ng/mL indicative of Vitamin D deficiency, while levels between 20 ng/mL and 30 ng/mL suggest insufficiency. Optimal levels are >=30ng/mL. Vitamin D, 25-OH D3 Not Established Vitamin D, 25-OH D2 Not Established Performed By: #### 2 09608 #### [facility],[address] [facility] [address] Serum or plasma progesterone measurement (mass/volume)Ordered By: Julianna Villareal on 03-07-2023 Progesterone [Mass/Vol] 9.21 ng/mL See Comment [facility] Comment on above: Progesterone Referen ce Table: UNITS Female: Follicular 0.15 - 1.40 ng/mL Luteal 3.34 - 25.56 ng/mL Mid-luteal 4.44 - 28.03 ng/mL Postmenopausal 0.0 - 0.73 ng/mL : 1st Trimester 11.22 - 90.00 ng/mL 2nd Trimester 25.55 - 89.40 ng/mL 3rd Trimester 48.40 -422.50 ng/mL Serum or plasma progesterone measurement (mass/volume)Ordered By: Julianna Villareal on 01-20-2023 Progesterone [Mass/Vol] 0.63 ng/mL See Comment [facility] Comment on above: Progesterone Referen ce Table: UNITS Female: Follicular 0.15 - 1.40 ng/mL Luteal 3.34 - 25.56 ng/mL Mid-luteal 4.44 - 28.03 ng/mL Postmenopausal 0.0 - 0.73 ng/mL : 1st Trimester 11.22 - 90.00 ng/mL 2nd Trimester 25.55 - 89.40 ng/mL 3rd Trimester 48.40 -422.50 ng/mL Serum or plasma prolactin me asurement (mass/volume)Ordered By: Julianna Villareal on 01-20-2023 Prolactin [Mass/Vol] 16.0 ng/mL [facility] Comment on above: NORMAL REFERENCE RAN GES FEMALE NON- 2.2 - 30.3 ng/mL 8.1 - 347.6 ng/mL POST-MENOPAUSAL 0.7 - 31.5 ng/mL MALE 2.5 - 17.4 ng/mL Basophil percentageOrdered B y: Dr. Villareal on 12-02-2022 WBC (Bld) [#/Vol] 4.8 10*3/uL 4.4-11.0 [facility] Blood erythrocytes count (nu mber/volume)Ordered By: Dr. Villareal on 12-02-2022 RBC (Bld) [#/Vol] 4.63 10*6/uL 4.2-5.4 [facility] Blood hemoglobin measurement (mass/volume)Ordered By: Dr. Villareal on 12-02-2022 Hemoglobin (Bld) [Mass/Vol] 13.6 g/dL 12.0-15.0 [facility] Blood platelet mean volumeOr dered By: Dr. Villareal on 12-02-2022 Platelet mean volume (Bld) [Entitic vol] 9.5 fL 6.2-12.0 [facility] Determination of erythrocyte mean corpuscular volume (MCV)Ordered By: Dr. Villareal on 12-02-2022 MCV (RBC) [Entitic vol] 86.6 fL 81-99 [facility] Hematocrit Auto (Bld) [Volum e fraction]Ordered By: Dr. Villareal on 12-02-2022 Hematocrit (Bld) [Volume fraction] 40.1 % 37-47 [facility] Laboratory - Chemistry and C hemistry - challengeOrdered By: Dr. Villareal on 12-02-2022 Free T4 [Mass/Vol] 1.05 ng/dL 0.76-1.46 [facility] HCG ( test) Ql (U) Negative [facility] Comment on above: Very dilute urine sp ecimens, as indicated by a low specificgravity, may not contain automotive leasing sales representative levels of hCG. If is still suspected, a first morning urinespecimen should be collected 48 hours later and tested. Laboratory - Hematology and Cell countsOrdered By: Dr. Villareal on 12-02-2022 Erythrocyte distribution width (RBC) [Entitic vol] 41.8 fL 35.1-43.9 [facility] Erythrocyte distribution width (RBC) [Ratio] 13.3 % 11.6-14.6 [facility] MCH (RBC) [Entitic mass] 29.4 pg 27.0-32.0 [facility] MCHC Auto (RBC) [Mass/Vol]Or dered By: Dr. Villareal on 12-02-2022 MCHC (RBC) [Mass/Vol] 33.9 g/dL 32-36 [facility] No Panel InformationOrdered By: Dr. Villareal on 12-02-2022 Thyroid Stimulating Hormone (TSH) 0.95 uIU/mL 0.358-3.74 [facility] Platelets bldOrdered By: Dr. Villareal on 12-02-2022 Platelets (Bld) [#/Vol] 259 10*3/uL 150-450 [facility] Cervical or vagninal specime n microscopic examination by cytology stain (reported asOrdered By: Dr. Villareal on 10-14-2022 Cytology report Cyto stain Doc (Cvx/Vag) Comment . [facility] Comment on above: The Pap smear is a s creening test designed to aid in thedetection of premalignant and malignant conditions of theuterine cervix. It is not a diagnostic procedure andshould not be used as the sole means of detecting cervicalcancer. Both false-positive and false-negative reports dooccur. Laboratory - CytologyOrdered By: Dr. Villareal on 10-14-2022 Stitcher Tape Controlled Machine Cyto stain Nom (Cvx/Vag) [ID] Comment . [facility] Comment on above: Katherine Brennan, Cytot echnologist (ASCP) Laboratory - Miscellaneous t estsOrdered By: Dr. Villareal on 10-14-2022 Service comment (Unsp spec) [Interp] Comment . [facility] Comment on above: This liquid based Th inPrep(R) pap test was screened withthe use of an image guided system. Service comment (Unsp spec) [Interp] . . [facility] No Panel InformationOrdered By: Dr. Villareal on 10-14-2022 Human Papillomavirus Screen Comment . [facility] Comment on above: The HPV DNA reflex c riteria were not met with this specimenresult therefore, no HPV testing was performed.Performed at: [address] [id number] Director: Machelle Ambrocio MD, Phone: [phone] Pathology report final diagnosis Narrative Comment . [facility] Comment on above: NEGATIVE FOR INTRAEP ITHELIAL LESION OR MALIGNANCY. Laboratory - Hematology and Cell countsOrdered By: Chin Edge on 09-27-2022 HbA1c (Bld) [Mass fraction] 5.3 % Normal 4.6 - 7.1 % [facility]. Absolute lymphocyte counton 04-08-2022 Lymphocytes Auto (Unsp spec) [#/Vol] 3.46 10*3/uL 0.83-4.51 [facility] Work Phone: Basophil percentageon 2021 Basophils/100 WBC (Bld) 0.3 % 0-1 [facility] Work Phone: Eosinophils/100 WBC (Bld) 2.2 % 0-5 [facility] Work Phone: Neutrophils (Bld) [#/Vol] 4.8 10*3/uL 2.0-7.7 [facility] Work Phone: Neutrophils/100 WBC (Bld) 52.8 % 47-70 [facility] Work Phone: WBC (Bld) [#/Vol] 9.0 10*3/uL 4.4-11.0 [facility] Work Phone: Beta hCG serum qualon 2021 Beta HCG ( test) Ql Negative [facility] Work Phone: Blood erythrocytes count (nu mber/volume)on 04-08-2022 RBC (Bld) [#/Vol] 4.52 10*6/uL 4.2-5.4 [facility] Work Phone: Blood hemoglobin measurement (mass/volume)on 04-08-2022 Hemoglobin (Bld) [Mass/Vol] 13.1 g/dL 12.0-15.0 [facility] Work Phone: Blood lymphocytes/100 leukoc yteson 04-08-2022 Lymphocytes/100 WBC (Bld) 38.4 % 19-41 [facility] Work Phone: Blood monocytes/100 leukocyt eson 04-08-2022 Monocytes/100 WBC (Bld) 6.1 % 0-10 [facility] Work Phone: Blood platelet mean volumeon 04-08-2022 Platelet mean volume (Bld) [Entitic vol] 9.2 fL 6.2-12.0 [facility] Work Phone: Determination of erythrocyte mean corpuscular volume (MCV)on 04-08-2022 MCV (RBC) [Entitic vol] 88.9 fL 81-99 [facility] Work Phone: [phone] Hematocrit Auto (Bld) [Volum e fraction]on 04-08-2022 Hematocrit (Bld) [Volume fraction] 40.2 % 37-47 [facility] Work Phone: Laboratory - Hematology and Cell countson 04-08-2022 Erythrocyte distribution width (RBC) [Entitic vol] 41.5 fL 35.1-43.9 [facility] Work Phone: [phone] Erythrocyte distribution width (RBC) [Ratio] 12.7 % 11.6-14.6 [facility] Work Phone: [phone] Immature granulocytes/100 WBC (Bld) 0.200 % 0.0-0.9 [facility] Work Phone: Comment on above: IG% - Immature Granu locytes (promyelocytes, myelocytes and metamyelocytes) > 1% indicates that a LEFT SHIFT is Present. MCH (RBC) [Entitic mass] 29.0 pg 27.0-32.0 [facility] Work Phone: [phone] Nucleated RBC/100 WBC (Bld) [Ratio] 0 % 0-5 [facility] Work Phone: [phone] MCHC Auto (RBC) [Mass/Vol]on 04-08-2022 MCHC (RBC) [Mass/Vol] 32.6 g/dL 32-36 [facility] Work Phone: Platelets bldon 04-08-2022 Platelets (Bld) [#/Vol] 300 10*3/uL 150-450 [facility] Work Phone: T3, FREEon 08-04-2021 Free T3 [Mass/Vol] 3.2 pg/mL Normal 2.3-4.2 [facility] Comment on above: Performed By: #### 8 66, 58543, 5081 #### [facility] [address], [address] [place] [address] Brands Editor: Donald Robert MD T4, FREEon 08-04-2021 Free T4 [Mass/Vol] 1.1 ng/dL Normal 0.8-1.8 [facility] Comment on above: Performed By: #### [id number] #### [facility] [address], [address] [place] [address] Brands Editor: Donald Robert MD THYROID PEROXIDASE ANTIBODIE Son 08-04-2021 THYROID PEROXIDASE ANTIBODIES 1 IU/mL Normal <9 [facility] Comment on above: Performed By: [id number] #### [facility] [address], [address] [place] [address] Brands Editor: Donald Robert MD Laboratory - Chemistry and C hemistry - challengeon 08-03-2021 Free T3 [Mass/Vol] 3.2 pg/mL Normal 2.3 - 4.2 pg/mL [facility], [facility].; [facility], [facility] Free T4 [Mass/Vol] 1.1 ng/dL Normal 0.8 - 1.8 ng/dL [facility], [facility].; [facility] No Panel Informationon 08-03 THYROID PEROXIDASE ANTIBODIES 1 {IU/mL} Normal [facility], [facility].; [facility] Laboratory - Microbiology an d Antimicrobial susceptibilityon 05-13-2021 S. pyogenes Ag EIA Ql (Throat) Negative Normal [facility], [facility].; [facility], [facility]. Vital Signs Date Time Vital Sign Value Performing Clinician Facility 03-06-2025 14:35-0400 Body height 157.48 cm Marco LUNA Work Phone: [facility] 03-06-2025 14:35-0400 Body mass index (BMI) [Ratio] 31.1 kg/m2 Marco LUNA Work Phone: [facility] 03-06-2025 14:35-0400 Body weight 77.28 kg Marco Melvin PA Work Phone: 3(574)106-121102 [place] [address] 03-06-2025 14:35-0400 Diastolic blood pressure 80 mm[Hg] Marco Melvin PA Work Phone: 5(634)703-829402 [place] [address] 03-06-2025 14:35-0400 Systolic blood pressure 110 mm[Hg] Marco Melvin PA Work Phone: 3(733)157-202802 [place] [address] 10-14-2024 21:58-0400 Body temperature 98.2 [degF] Marco Melvin PA Work Phone: 0(551)982-553802 [place] [address] 10-14-2024 21:58-0400 Diastolic blood pressure 87 mm[Hg] Marco Melvin PA Work Phone: 3(164)440-134677 [place] [address] 10-14-2024 21:58-0400 Heart rate 68 /min Marco Melvin PA Work Phone: 7(508)845-544802 [place] [address] 10-14-2024 21:58-0400 Respiratory rate 12 /min Marco Melvin PA Work Phone: 4(821)440-239677 [place] [address] 10-14-2024 21:58-0400 SaO2% (BldA) [Mass fraction] 100 % Marco Melvin PA Work Phone: 6(551)817-915502 [place] [address] 10-14-2024 21:58-0400 Systolic blood pressure 110 mm[Hg] Marco Melvin PA Work Phone: 5(618)104-810002 [place] [address] 10-14-2024 18:26-0400 Body height 157.48 cm Marco Melvin PA Work Phone: 3(492)575-961502 [place] [address] 10-14-2024 18:26-0400 Body mass index (BMI) [Ratio] 33.9 kg/m2 Marco Melvin PA Work Phone: 5(726)447-758002 [place] [address] 10-14-2024 18:26-0400 Body weight 84.09 kg Marco Melvin PA Work Phone: 7(561)590-465602 [place] [address] 10-13-2024 09:42-0400 Diastolic blood pressure 64 mm[Hg] Barak Covarrubias MD Work Phone: [facility] 10-13-2024 09:42-0400 Heart rate 90 /min Barak Covarrubias MD Work Phone: [facility] 10-13-2024 09:42-0400 SaO2% (BldA) [Mass fraction] 100 % Barak Covarrubias MD Work Phone: [facility] 10-13-2024 09:42-0400 Systolic blood pressure 103 mm[Hg] Barak Covarrubias MD Work Phone: [facility] 10-13-2024 06:25-0400 Body mass index (BMI) [Ratio] 34.4 kg/m2 Barak Covarrubias MD Work Phone: [facility] 10-13-2024 06:25-0400 Body weight 85.32 kg Barak Covarrubias MD Work Phone: [facility] 10-13-2024 05:31-0400 Body temperature 98.01 [degF] Barak Covarrubias MD Work Phone: [facility] 10-13-2024 05:31-0400 Respiratory rate 17 /min Barak Covarrubias MD Work Phone: [facility] 10-12-2024 03:37-0400 Body height 157.5 cm Barak Covarrubias MD Work Phone: [facility] 10-12-2024 01:59-0400 Body temperature 98.2 [degF] Marco Melvin PA Work Phone: [facility] 10-12-2024 01:59-0400 Diastolic blood pressure 73 mm[Hg] Marco Melvin PA Work Phone: [facility] 10-12-2024 01:59-0400 Heart rate 94 /min Marco Melvin PA Work Phone: [facility] 10-12-2024 01:59-0400 Respiratory rate 21 /min Marco Melvin PA Work Phone: [facility] 10-12-2024 01:59-0400 SaO2% (BldA) [Mass fraction] 96 % Marco Melvin PA Work Phone: 1(056)776-543102 [place] [address] 10-12-2024 01:59-0400 Systolic blood pressure 110 mm[Hg] Marco Melvin PA Work Phone: 8(102)291-175402 [place] [address] 10-11-2024 20:53-0400 Body height 157.48 cm Marco Melvin PA Work Phone: 9(480)018-264638 [address] 10-11-2024 20:53-0400 Body mass index (BMI) [Ratio] 34.2 kg/m2 Marco Melvin PA Work Phone: 0(393)874-634902 [place] [address] 10-11-2024 20:53-0400 Body weight 84.82 kg Marco Melvin PA Work Phone: 8(260)570-116238 [address] 06-19-2024 09:41-0500 Body mass index (BMI) [Ratio] 32.1 kg/m2 Marco Melvin PA Work Phone: 7(344)015-137202 [place] [address] 06-19-2024 09:41-0500 Body weight 79.83 kg Marco Melvin PA Work Phone: 4(272)916-757277 [place] [address] 06-19-2024 09:41-0500 Diastolic blood pressure 79 mm[Hg] Marco Melvin PA Work Phone: 0(610)879-208802 [place] [address] 06-19-2024 09:41-0500 Systolic blood pressure 119 mm[Hg] Marco Melvin PA Work Phone: 2(494)537-127602 [place] [address] 03-17-2024 08:30-0400 Body temperature 98.01 [degF] Rand Hallman MD Work Phone: [facility] 03-17-2024 08:30-0400 Diastolic blood pressure 74 mm[Hg] Rand Hallman MD Work Phone: [facility] 03-17-2024 08:30-0400 Heart rate 86 /min Rand Hallman MD Work Phone: [facility] 03-17-2024 08:30-0400 Respiratory rate 16 /min Rand Hallman MD Work Phone: [facility] [employer] 03-17-2024 08:30-0400 SaO2% (BldA) [Mass fraction] 99 % Rand Hallman MD Work Phone: [facility] [employer] 03-17-2024 08:30-0400 Systolic blood pressure 109 mm[Hg] Rand Hallman MD Work Phone: [facility] [employer] 03-10-2024 07:30-0400 Body height 157.5 cm Rand Hallman MD Work Phone: [facility] [employer] 03-06-2024 16:49-0400 Body mass index (BMI) [Ratio] 34.39 kg/m2 Rand Hallman MD Work Phone: [facility] [employer] 03-06-2024 16:49-0400 Body weight 85.28 kg Rand Hallman MD Work Phone: [facility] [employer] 01-18-2024 15:39-0400 Body height 156.84 cm Natalie Hopkins MA [facility], [facility].; [facility], [facility]. 01-18-2024 15:39-0400 Body mass index (BMI) [Ratio] 35.22 kg/m2 Natalie Hopkins MA [facility], [facility].; [facility], [facility]. 01-18-2024 15:39-0400 Body surface area Derived from formula 1.87 m2 Natalie Hopkins MA [facility], [facility].; [facility]. 01-18-2024 15:39-0400 Body weight 86.64 kg Natalie Hopkins MA [facility], [facility].; [employer] [facility]. 01-18-2024 15:39-0400 Diastolic blood pressure 75 mm[Hg] Natalie Hopkins MA [facility], [facility].; [employer] [facility], [facility]. Comment on above: Patient Position: Sitting; Cuff Location : Left Arm; Cuff Size: Standard 01-18-2024 15:39-0400 Heart rate 96 /min Natalie Hopkins MA [facility], [facility].; [employer] [facility]. Comment on above: Pattern: Regular 01-18-2024 15:39-0400 Systolic blood pressure 112 mm[Hg] Natalie Hopkins MA [facility] Comment on above: Patient Position: Sitting; Cuff Location : Left Arm; Cuff Size: Standard 10-25-2023 08:23-0400 Body height 157.48 cm PA Marco Melvin Work Phone: [facility] 10-25-2023 08:23-0400 Body mass index (BMI) [Ratio] 32.9 kg/m2 PA Marco Melvin Work Phone: [facility] 10-25-2023 08:23-0400 Body weight 81.64 kg PA Marco Melvin Work Phone: [facility] 10-25-2023 08:23-0400 Diastolic blood pressure 84 mm[Hg] PA Marco Melvin Work Phone: [facility] 10-25-2023 08:23-0400 Systolic blood pressure 118 mm[Hg] PA Marco Melvin Work Phone: 4(041)664-325302 [place] [address] 10-12-2023 14:55-0400 Body mass index (BMI) [Ratio] 32.4 kg/m2 PA Marco Melvin Work Phone: 3(684)750-970738 [address] 10-12-2023 14:55-0400 Body weight 80.51 kg PA Marco Melvin Work Phone: [facility] 10-12-2023 14:55-0400 Diastolic blood pressure 85 mm[Hg] PA Marco Melvin Work Phone: [facility] 10-12-2023 14:55-0400 Systolic blood pressure 118 mm[Hg] PA Marco Melvin Work Phone: [facility] 09-19-2023 16:39-0400 Body temperature 97.6 [degF] PA Marco Melvin Work Phone: [facility] 09-19-2023 16:39-0400 Diastolic blood pressure 82 mm[Hg] PA Marco Melvin Work Phone: [facility] 09-19-2023 16:39-0400 Heart rate 76 /min PA Marco Melvin Work Phone: [facility] 09-19-2023 16:39-0400 Respiratory rate 15 /min PA Marco Melvin Work Phone: [facility] 09-19-2023 16:39-0400 SaO2% (BldA) [Mass fraction] 99 % PA Marco Melvin Work Phone: [facility] 09-19-2023 16:39-0400 Systolic blood pressure 129 mm[Hg] PA Marco Melvin Work Phone: 0(639)418-895102 [place] [address] 09-19-2023 12:14-0400 Body height 157.48 cm PA Marco Melvin Work Phone: [facility] 09-19-2023 12:14-0400 Body mass index (BMI) [Ratio] 31.1 kg/m2 PA Marco Melvin Work Phone: [facility] 09-19-2023 12:14-0400 Body weight 77.11 kg PA Marco Melvin Work Phone: 4(842)876-527902 [place] [address] 09-08-2023 13:11-0500 Body height 157.48 cm PA Marco Melvin Work Phone: [facility] 09-08-2023 13:10-0500 Body mass index (BMI) [Ratio] 31.4 kg/m2 PA Marco Melvin Work Phone: [facility] 09-08-2023 13:10-0500 Body weight 78.01 kg PA Marco Melvin Work Phone: [facility] 09-08-2023 13:10-0500 Diastolic blood pressure 88 mm[Hg] PA Marco Melvin Work Phone: [facility] 09-08-2023 13:10-0500 Systolic blood pressure 123 mm[Hg] PA Marco Melvin Work Phone: [facility] 02-15-2023 15:45-0400 Body height 156.84 cm Chelsea Paez MA [facility].; [facility]. 02-15-2023 15:45-0400 Body mass index (BMI) [Ratio] 28.6 kg/m2 Chelsea Paez MA [facility].; [facility]. 02-15-2023 15:45-0400 Body surface area Derived from formula 1.71 m2 Chelsea Paez MA [facility].; [facility]. 02-15-2023 15:45-0400 Body weight 70.36 kg Chelsea Paez MA [facility].; [facility]. 02-15-2023 15:45-0400 Diastolic blood pressure 79 mm[Hg] Chelsea Paez MA [facility].; [facility]. Comment on above: Patient Position: Sitting; Cuff Location : Left Arm; Cuff Size: Standard 02-15-2023 15:45-0400 Heart rate 87 /min Chelsea Paez MA [facility].; [facility]. Comment on above: Pattern: Regular 02-15-2023 15:45-0400 Systolic blood pressure 120 mm[Hg] Chelsea Paez MA [facility].; [facility]. Comment on above: Patient Position: Sitting; Cuff Location : Left Arm; Cuff Size: Standard 12-14-2022 11:30-0400 Body height 157.48 cm PA Marco Melvin Work Phone: [facility] 12-14-2022 11:28-0400 Body mass index (BMI) [Ratio] 28.3 kg/m2 PA Marco Melvin Work Phone: [facility] 12-14-2022 11:28-0400 Body weight 70.36 kg PA Marco Melvin Work Phone: [facility] 12-14-2022 11:28-0400 Diastolic blood pressure 84 mm[Hg] PA Marco Melvin Work Phone: [facility] 12-14-2022 11:28-0400 Systolic blood pressure 129 mm[Hg] PA Marco Melvin Work Phone: [facility] 12-02-2022 14:26-0400 Body temperature 97.7 [degF] PA Marco Melvin Work Phone: [facility] 12-02-2022 14:26-0400 Diastolic blood pressure 79 mm[Hg] PA Marco Melvin Work Phone: [facility] 12-02-2022 14:26-0400 Heart rate 76 /min PA Marco Melvin Work Phone: 8(994)882-400302 [place] [address] 12-02-2022 14:26-0400 Respiratory rate 16 /min PA Marco Melvin Work Phone: 9(714)476-332602 [place] [address] 12-02-2022 14:26-0400 SaO2% (BldA) [Mass fraction] 97 % PA Marco Melvin Work Phone: 5(396)024-315502 [place] [address] 12-02-2022 14:26-0400 Systolic blood pressure 115 mm[Hg] PA Marco Melvin Work Phone: 2(631)574-658802 [place] [address] 12-02-2022 09:12-0400 Body height 157.48 cm PA Marco Melvin Work Phone: 1(858)350-262238 [address] 12-02-2022 09:12-0400 Body mass index (BMI) [Ratio] 28.1 kg/m2 PA Marco Melvin Work Phone: 2(923)440-663302 [place] [address] 12-02-2022 09:12-0400 Body weight 69.85 kg PA Marco Melvin Work Phone: 4(168)136-347402 [place] [address] 11-09-2022 11:22-0400 Body mass index (BMI) [Ratio] 28.5 kg/m2 PA Marco Melvin Work Phone: 7(396)596-984202 [place] [address] 11-09-2022 11:22-0400 Body weight 70.93 kg PA Marco Melvin Work Phone: [facility] 11-09-2022 11:22-0400 Diastolic blood pressure 76 mm[Hg] PA Marco Melvin Work Phone: 7(949)833-281302 [place] [address] 11-09-2022 11:22-0400 Systolic blood pressure 116 mm[Hg] PA Marco Melvin Work Phone: [facility] 10-14-2022 14:43-0400 Body mass index (BMI) [Ratio] 28.8 kg/m2 PA Marco Melvin Work Phone: [facility] 10-14-2022 14:43-0400 Body weight 71.44 kg PA Marco Melvin Work Phone: [facility] 10-14-2022 14:43-0400 Diastolic blood pressure 77 mm[Hg] PA Marco Melvin Work Phone: [facility] 10-14-2022 14:43-0400 Systolic blood pressure 114 mm[Hg] PA Marco Melvin Work Phone: [facility] 09-27-2022 15:56-0400 Body temperature 99.9 [degF] Chin Edge LPN [facility] 09-27-2022 15:56-0400 Body weight 73.94 kg Chin Edge LPN [facility], [facility]. 09-27-2022 15:56-0400 Diastolic blood pressure 86 mm[Hg] Chin Edge LPN [facility] [employer] [facility] Comment on above: Patient Position: Sitting; Cuff Location : Left Arm; Cuff Size: Standard 09-27-2022 15:56-0400 Heart rate 106 /min Chin Edge LPN [facility] [employer] [facility] [employer]. Comment on above: Pattern: Regular 09-27-2022 15:56-0400 Systolic blood pressure 120 mm[Hg] Chin Edge LPN [facility], [facility].; [facility] Comment on above: Patient Position: Sitting; Cuff Location : Left Arm; Cuff Size: Standard 08-05-2022 10:09-0500 Body height 156.84 cm Nandini Fisher RN [facility], [facility].; [facility], [facility]. 08-05-2022 10:09-0500 Body mass index (BMI) [Ratio] 30.24 kg/m2 Nandini Fisher RN [facility].; [place] [employer] [facility]. 08-05-2022 10:09-0500 Body surface area Derived from formula 1.75 m2 Nandini Fisher RN [facility].; [place] [employer] [facility]. 08-05-2022 10:09-0500 Body temperature 99.8 [degF] Nandini Fishre RN [facility].; [employer] Comment on above: Method: Tympanic 08-05-2022 10:090500 Body weight 74.39 kg Nandini Fisher RN [facility].; [place] [employer] [facility]. 08-05-2022 10:09-0500 Diastolic blood pressure 72 mm[Hg] Nandini Fisher RN [facility].; [employer]. Comment on above: Patient Position: Sitting; Cuff Location : Left Arm; Cuff Size: Standard 08-05-2022 10:09-0500 Heart rate 94 /min Nandini Fisher RN [email or web address].; [employer]. Comment on above: Pattern: Regular 08-05-2022 10:09-0500 Systolic blood pressure 108 mm[Hg] Nandini Fisher RN [email or web address].; [employer]. Comment on above: Patient Position: Sitting; Cuff Location : Left Arm; Cuff Size: Standard 05-12-2022 16:19-0500 Body height 156.84 cm Maryellen Reyes LPN [facility].; [place] [employer] [facility]. 05-12-2022 16:19-0500 Body mass index (BMI) [Ratio] 30.05 kg/m2 Maryellen Reyes LPN [facility].; [place] [employer] [facility], [facility]. 05-12-2022 16:19-0500 Body surface area Derived from formula 1.75 m2 Maryellen Reyes LPN [facility].; [place] [employer] [facility]. 05-12-2022 16:19-0500 Body temperature 98.5 [degF] Maryellen Reyes LPN [facility], [facility].; [facility], [facility]. Comment on above: Method: Tympanic 05-12-2022 16:19-0500 Body weight 73.94 kg Maryellen Reyes LPN [facility], [facility].; [place] [employer] 05-12-2022 16:19-0500 Diastolic blood pressure 87 mm[Hg] Maryellen Reyes LPN [facility], [facility].; [place] [employer] Comment on above: Patient Position: Sitting; Cuff Location : Left Arm; Cuff Size: Standard 05-12-2022 16:19-0500 Heart rate 92 /min Maryellen Reyes LPN [facility], [facility].; [place] [employer] [facility], [facility]. Comment on above: Pattern: Regular 05-12-2022 16:19-0500 Inhaled oxygen concentration 20 % Maryellen Reyes LPN [facility], [facility].; [place] [employer] Comment on above: Room air 05-12-2022 16:19-0500 Inhaled oxygen concentration 21 % Maryellen Reyes LPN [facility], [facility].; [employer], [employer]. Comment on above: Room air 05-12-2022 16:19-0500 SaO2% (BldA) [Mass fraction] 98 % Maryellen Reyes LPN [facility], [facility].; [place] [employer] 05-12-2022 16:19-0500 Systolic blood pressure 118 mm[Hg] Maryellen Reyes LPN [facility], [facility].; [place] [employer], [employer]. Comment on above: Patient Position: Sitting; Cuff Location : Left Arm; Cuff Size: Standard 04-26-2022 10:40-0400 Body height 156.84 cm Maryellen Reyes LPN [facility], [facility].; [facility], [employer]. 04-26-2022 10:40-0400 Body mass index (BMI) [Ratio] 30.05 kg/m2 Maryellen Reyes LPN [facility], [facility].; [place] [employer] 04-26-2022 10:40-0400 Body surface area Derived from formula 1.75 m2 Maryellen Reyes LPN [facility], [facility].; [facility]. 04-26-2022 10:40-0400 Body weight 73.94 kg Maryellen Reyes LPN [facility].; [facility]. 04-26-2022 10:40-0400 Diastolic blood pressure 86 mm[Hg] Maryellen Reyes LPN [facility].; [place] [employer] [email or web address]. Comment on above: Patient Position: Sitting; Cuff Location : Left Arm; Cuff Size: Standard 04-26-2022 10:40-0400 Heart rate 106 /min Maryellen Reyes LPN [facility].; [place] [employer] [email or web address]. Comment on above: Pattern: Regular 04-26-2022 10:40-0400 Inhaled oxygen concentration 20 % Maryellen Reyes LPN [facility].; [place] [employer] [facility] [employer]. Comment on above: Room air 04-26-2022 10:40-0400 Inhaled oxygen concentration 21 % Maryellen Reyes LPN [facility].; [place] [employer] [email or web address]. Comment on above: Room air 04-26-2022 10:40-0400 SaO2% (BldA) [Mass fraction] 100 % Maryellen Reyes LPN [facility].; [place] [employer] [facility] [employer]. 04-26-2022 10:40-0400 Systolic blood pressure 122 mm[Hg] Mrayellen Reyes LPN [facility].; [place] [employer] [facility] [employer]. Comment on above: Patient Position: Sitting; Cuff Location : Left Arm; Cuff Size: Standard 04-08-2022 22:05-0400 Respiratory rate 14 /min [facility] Work Phone: 04-08-2022 17:52-0400 Body temperature 97.4 [degF] [facility] Work Phone: 04-08-2022 17:52-0400 Diastolic blood pressure 95 mm[Hg] [facility] Work Phone: 04-08-2022 17:52-0400 Heart rate 105 /min [facility] Work Phone: 04-08-2022 17:52-0400 SaO2% (BldA) [Mass fraction] 100 % [facility] Work Phone: 04-08-2022 17:52-0400 Systolic blood pressure 128 mm[Hg] [facility] Work Phone: 04-08-2022 17:49-0400 Body height 157.48 cm [facility] Work Phone: 04-08-2022 17:49-0400 Body mass index (BMI) [Ratio] 30.7 kg/m2 [facility] Work Phone: 04-08-2022 17:49-0400 Body weight 76.3 kg [facility] Work Phone: 02-07-2022 09:46-0400 Body height 156.84 cm Nandini Fisher RN [facility].; [employer] [email or web address]. 02-07-2022 09:46-0400 Body mass index (BMI) [Ratio] 29.5 kg/m2 Nandini Fisher RN [facility].; [employer] [facility]. 02-07-2022 09:46-0400 Body surface area Derived from formula 1.73 m2 Nandini Fisher RN [facility] [facility].; [employer] [facility]. 02-07-2022 09:46-0400 Body temperature 99.2 [degF] Nandini Fisher RN [email or web address].; [employer] [email or web address]. Comment on above: Method: Tympanic 02-07-2022 09:46-0400 Body weight 72.58 kg Nandini Fisher RN [place] [employer] [email or web address].; [employer]. 02-07-2022 09:46-0400 Diastolic blood pressure 74 mm[Hg] Nandini Fisher RN [place] [employer] [facility].; [employer]An[employer]. Comment on above: Patient Position: Sitting; Cuff Location : Left Arm; Cuff Size: Standard 02-07-2022 09:46-0400 Heart rate 84 /min Nandini Fisher RN [facility].; [employer]. Comment on above: Pattern: Regular 02-07-2022 09:46-0400 Inhaled oxygen concentration 20 % Nandini Fisher RN [facility].; [employer] [email or web address]. Comment on above: Room air 02-07-2022 09:46-0400 Inhaled oxygen concentration 21 % Nandini Fisher RN [facility], [facility].; [employer]. Comment on above: Room air 02-07-2022 09:46-0400 SaO2% (BldA) [Mass fraction] 99 % Nandini Fisher RN [facility].; [employer]. 02-07-2022 09:46-0400 Systolic blood pressure 112 mm[Hg] Nandini Fisher RN [facility].; [employer]. Comment on above: Patient Position: Sitting; Cuff Location : Left Arm; Cuff Size: Standard 12-01-2021 15:44-0400 Body height 156.84 cm Maryellen Reyes LPN [facility], [facility].; [employer]. 12-01-2021 15:44-0400 Body mass index (BMI) [Ratio] 29.13 kg/m2 Maryellen Reyes LPN [facility], [facility].; [employer] [facility]. 12-01-2021 15:44-0400 Body surface area Derived from formula 1.72 m2 Maryellen Reyes LPN [facility], [facility].; [employer] [facility]. 12-01-2021 15:44-0400 Body weight 71.67 kg Maryellen Reyes LPN [facility], [facility].; [employer]. 12-01-2021 15:44-0400 Diastolic blood pressure 79 mm[Hg] Maryellen Reyes LPN [facility], [facility].; [employer]. Comment on above: Patient Position: Sitting; Cuff Location : Left Arm; Cuff Size: Standard 12-01-2021 15:44-0400 Heart rate 75 /min Maryellen Reyes LPN [facility], [facility].; [employer]. Comment on above: Pattern: Regular 12-01-2021 15:44-0400 Systolic blood pressure 113 mm[Hg] Maryellen Reyes LPN [facility], [facility] [employer], [employer]. Comment on above: Patient Position: Sitting; Cuff Location : Left Arm; Cuff Size: Standard 08-03-2021 16:09-0500 Body height 156.84 cm Maryellen Reyes LPN [facility], [facility] [employer] [facility] 08-03-2021 16:09-0500 Body mass index (BMI) [Ratio] 27.47 kg/m2 Maryellen Reyes LPN [facility], [facility] [place] [employer] [facility] 08-03-2021 16:09-0500 Body surface area Derived from formula 1.68 m2 Maryellen Reyes LPN [facility], [facility] [place] [employer] 08-03-2021 16:09-0500 Body weight 67.59 kg Maryellen Reyes LPN [facility], [facility] [employer] 08-03-2021 16:09-0500 Diastolic blood pressure 88 mm[Hg] Maryellen Reyes LPN [facility], [facility] [employer]. Comment on above: Patient Position: Sitting; Cuff Location : Left Arm; Cuff Size: Standard 08-03-2021 16:09-0500 Heart rate 85 /min Maryellen Ryees LPN [facility], [facility].; [employer] Comment on above: Pattern: Regular 08-03-2021 16:09-0500 Systolic blood pressure 125 mm[Hg] Maryellen Reyes LPN [facility], [facility] [employer] Comment on above: Patient Position: Sitting; Cuff Location : Left Arm; Cuff Size: Standard 05-13-2021 15:58-0500 Body height 156.84 cm Alysia Mar LPN [facility], [facility] [place] [employer] 05-13-2021 15:58-0500 Body mass index (BMI) [Ratio] 26.55 kg/m2 Alysia Mar LPN [facility], [facility] [employer] 05-13-2021 15:58-0500 Body surface area Derived from formula 1.66 m2 Alysia Mar LPN [facility], [facility].; [facility], [facility]. 05-13-2021 15:58-0500 Body temperature 99.2 [degF] Alysia Irisshai [facility].; [facility], [facility]. Comment on above: Method: Tympanic 05-13-2021 15:58-0500 Body weight 65.32 kg Alysiamadelyn Mar [facility], [facility].; [facility], [facility]. 05-13-2021 15:58-0500 Diastolic blood pressure 80 mm[Hg] Alysiamadelyn Mar [facility].; [facility], [facility]. Comment on above: Patient Position: Sitting; Cuff Location : Left Arm; Cuff Size: Standard 05-13-2021 15:58-0500 Heart rate 92 /min [place] [employer] [facility], [facility].; [facility], [employer]. Comment on above: Pattern: Regular 05-13-2021 15:58-0500 Systolic blood pressure 113 mm[Hg] Alysiamadelyn Mar [facility], [facility].; [facility] [employer] [facility]. Comment on above: Patient Position: Sitting; Cuff Location : Left Arm; Cuff Size: Standard 04-26-2021 16:14-0400 Body height 156.84 cm Alysia Mar [facility], [facility].; [facility], [facility]. 04-26-2021 16:14-0400 Body mass index (BMI) [Ratio] 26.74 kg/m2 [place] [employer] [facility], [facility].; [facility], [facility]. 04-26-2021 16:14-0400 Body surface area Derived from formula 1.66 m2 Alysiamadelyn Mar LPN [facility], [facility].; [facility], [facility]. 04-26-2021 16:14-0400 Body weight 65.77 kg [place] [employer] [facility], [facility].; [facility], [facility]. 04-26-2021 16:14-0400 Diastolic blood pressure 78 mm[Hg] Alysiamadelyn Mar [facility], [facility].; [place] [employer] [facility], [facility]. Comment on above: Patient Position: Sitting; Cuff Location : Left Arm; Cuff Size: Standard 04-26-2021 16:14-0400 Heart rate 106 /min Alysia Terryortiz AMEZQUITA [email or web address].; [employer]. Comment on above: Pattern: Regular 04-26-2021 16:14-0400 Systolic blood pressure 114 mm[Hg] Alysiamadelyn Stewartortiz AMEZQUITA [facility], [facility].; [employer]. Comment on above: Patient Position: Sitting; Cuff Location : Left Arm; Cuff Size: Standard 01-31-2020 15:35-0400 Body height 156.84 cm Marco Melvin PA-C Work Phone: [employer].; [employer]. 01-31-2020 15:35-0400 Body mass index (BMI) [Ratio] 26.55 kg/m2 Marco Melvin PA-C Work Phone: [employer].; [employer]. 01-31-2020 15:35-0400 Body surface area Derived from formula 1.66 m2 Marco Melvin PA-C Work Phone: [employer].; [employer]. 01-31-2020 15:35-0400 Body weight 65.32 kg Marco Melvin PA-C Work Phone: [employer].; [employer]. 01-31-2020 15:35-0400 Diastolic blood pressure 74 mm[Hg] Marco Melvin PA-C Work Phone: [employer].; [employer]. Comment on above: Patient Position: Sitting; Cuff Location : Left Arm; Cuff Size: Standard 01-31-2020 15:35-0400 Heart rate 80 /min Marco Melvin PA-C Work Phone: [employer].; [employer]. Comment on above: Pattern: Regular 01-31-2020 15:35-0400 Systolic blood pressure 107 mm[Hg] Marco Melvin PA-C Work Phone: [employer].; [employer]. Comment on above: Patient Position: Sitting; Cuff Location : Left Arm; Cuff Size: Standard Encounters Encounter Date Encounter Type Care Provider Facility Start: 03-12-2025 End: 03-12-2025 ambulatory JOHN NAYLOR MD Facility:A Start: 03-10-2025 End: 03-10-2025 ambulatory JOHN NAYLOR MD Facility:A Start: 03-07-2025 End: 03-07-2025 ambulatory MARCO J MELVIN PA-C Facility:A Start: 03-06-2025 End: 03-06-[address] Julianna Newman DO [facility] Work Phone: Start: 03-06-2025 End: 03-06-[address] Julianna Newman DO [facility] Start: 03-06-2025 End: 03-06-2025 ambulatory Marco Melvin PA Work Phone: -[facility] Start: 02-28-2025 End: 02-28-2025 ambulatory MARCO J MELVIN PA-C Facility:A Start: 10-14-2024 End: 10-14-2024 Emergency department patient visit Marco Melvin PA Work Phone: -Emergency Department Work Phone: Start: 10-12-2024 End: 10-13-2024 Evaluation and management of inpatient Barak Covarrubias MD Work Phone: [facility] Medical Surgical Unit MSU H5 Comment on above: Ovarian hyperstimula tion syndrome (Primary Dx) Start: 10-11-2024 End: 10-12-2024 Emergency department patient visit Marco Melvin PA Work Phone: -Emergency Department Work Phone: Start: 10-07-2024 End: 10-07-2024 ambulatory MARCO J MELVIN PA-C Facility:A Start: 08-15-2024 End: 08-15-[address] Julianna Newman DO [facility] Work Phone: Start: 08-15-2024 End: 08-15-2024 ambulatory Julianna Newman Facility:[facility] Start: 06-19-2024 End: 06-19-2024 Patient encounter procedure Lilly REYES -Laboratory, Specimen Work Phone: Start: 06-19-2024 End: 06-19-2024 Patient encounter procedure Lilly REYES -[facility] Work Phone: Start: 06-19-2024 End: 06-19-2024 ambulatory Marco Duane Facility:[facility] Start: 06-19-2024 End: 06-19-2024 ambulatory Marco Bean Facility:[facility] Start: 06-11-2024 ambulatory [facility] Facility:[facility] Start: 05-15-2024 End: 05-15-2024 ambulatory [facility] Start: 05-14-2024 End: 05-14-2024 ambulatory [facility] Start: 05-07-2024 End: 05-07-2024 ambulatory [facility] Start: 04-25-2024 End: 04-25-2024 ambulatory [facility] Start: 04-22-2024 ambulatory [facility] Facility:[facility] Start: 04-12-2024 ambulatory [facility] [place] [facility] cility:[facility] Start: 04-10-2024 End: 04-10-2024 Subsequent hospital visit by physician Lucila Ho DO Work Phone: [facility] Comment on above: History of gestation al diabetes Start: 04-10-2024 End: 04-10-2024 ambulatory LUCILA [facility] Start: 03-28-2024 End: 03-28-2024 ambulatory LUCILA HO [facility] Start: 03-13-2024 ambulatory Venessa Christy lity:[facility] Start: 03-06-2024 End: 03-17-2024 Evaluation and management of inpatient Rand Hallman MD Work Phone: [facility] Mother Baby H4 Comment on above: S/P (Prima ry Dx); Anhydramnios in third trimester, single or unspecified fetus; Vaginal bleeding in , third trimester Start: 01-19-2024 End: 01-19-2024 ambulatory DENNY BAUER [facility] Start: 01-18-2024 End: 01-18-2024 Office outpatient visit 15 minutes Marco Melvin PA-C Work Phone: [facility] Start: 12-28-2023 End: 12-28-2023 ambulatory SAUMYA MANCIA [facility] Start: 12-12-2023 End: 12-12-2023 Telephone follow-up Marco Melvin PA-C Work Phone: [facility] Start: 10-25-2023 End: 10-25-2023 ambulatory PA Marco Melvin Work Phone: [facility] Work Phone: Start: 10-25-2023 End: 10-25-2023 Patient encounter procedure PA Marco Melvin Work Phone: [facility] Work Phone: Start: 10-12-2023 End: 10-12-2023 ambulatory PA Marco Melvin Work Phone: [facility] Work Phone: Start: 10-12-2023 End: 10-12-2023 Patient encounter procedure PA Marco Melvin Work Phone: [facility]-Laboratory, Specimen Work Phone: Start: 10-12-2023 End: 10-12-2023 Patient encounter procedure PA Marco Melvin Work Phone: [facility] Work Phone: Start: 09-29-2023 End: 09-29-2023 ambulatory PA Marco Melvin Work Phone: [facility] Work Phone: Start: 09-29-2023 End: 09-29-2023 Patient encounter procedure PA Marco Melvin Work Phone: [facility]-Ultrasound[facility] Work Phone: Start: 09-22-2023 End: 09-22-2023 ambulatory PA Marco Melvin Work Phone: [facility] Work Phone: Start: 09-22-2023 End: 09-22-2023 Patient encounter procedure PA Marco Melvin Work Phone: [facility] Ultrasound Work Phone: Start: 09-19-2023 End: 09-19-2023 Emergency department patient visit PA Marco Melvin Work Phone: [facility]-Emergency Department Work Phone: Start: 09-15-2023 End: 09-15-2023 ambulatory PA Marco Melvin Work Phone: [facility] Work Phone: Start: 09-15-2023 End: 09-15-2023 Patient encounter procedure PA Marco Melvin Work Phone: [facility]-Laboratory Work Phone: Start: 09-13-2023 End: 09-13-2023 ambulatory PA Marco Melvin Work Phone: [facility] Work Phone: Start: 09-13-2023 End: 09-13-2023 Patient encounter procedure PA Marco Melvin Work Phone: [facility]-Laboratory Work Phone: Start: 2023 End: 2023 ambulatory PA Marco Melvin Work Phone: [facility] Work Phone: Start: 2023 End: 2023 Patient encounter procedure PA Marco Melvin Work Phone: [facility]Laboratory Work Phone: Start: 09-08-2023 End: 09-08-2023 Patient encounter procedure PA Marco Melvin Work Phone: [facility] Work Phone: Start: 09-06-2023 End: 09-06-2023 ambulatory PA Marco Melvin Work Phone: [facility] Work Phone: Start: 09-06-2023 End: 09-06-2023 Patient encounter procedure PA Marco Melvin Work Phone: [facility]-Laboratory Work Phone: Start: 08-25-2023 End: 08-25-2023 ambulatory [facility] Work Phone: Start: 08-25-2023 End: 08-25-2023 Patient encounter procedure [facility] Work Phone: Start: 08-23-2023 End: 08-23-2023 Patient encounter procedure [facility] Work Phone: Start: 08-21-2023 End: 08-21-2023 ambulatory [facility] Work Phone: Start: 08-21-2023 End: 08-21-2023 Patient encounter procedure [facility] Work Phone: Start: 08-15-2023 End: 08-15-2023 ambulatory [facility] Work Phone: Start: 08-15-2023 End: 08-15-2023 Patient encounter procedure [facility] Work Phone: Start: 08-14-2023 End: 08-14-[address] [facility] Start: 08-07-2023 End: 08-07-2023 Patient encounter procedure [facility] Work Phone: Start: 08-05-2023 End: 08-05-2023 ambulatory [facility] Work Phone: Start: 08-05-2023 End: 08-05-2023 [facility] Start: 08-03-2023 End: 08-03-2023 ambulatory [facility] Work Phone: Start: 08-03-2023 End: 08-03-2023 Patient encounter procedure [facility] Work Phone: Start: 07-29-2023 End: 07-29-2023 ambulatory [facility] Work Phone: Start: 07-29-2023 End: 07-29-2023 Patient encounter procedure [facility] Work Phone: Start: 05-03-2023 End: 05-03-[address] [facility] Start: 03-07-2023 End: 03-07-2023 ambulatory PA Marco Melvin Work Phone: [facility] Work Phone: Start: 03-07-2023 End: 03-07-2023 Patient encounter [facility] Start: 02-15-2023 End: 02-15-2023 Periodic preventive med est patient 18-39 yrs Marco Melvin PA-C Work Phone: [employer] [email or web address] Start: 02-15-2023 End: 02-15-2023 Physical examination Marco Melvin PA-C Work Phone: [employer] [email or web address].; [employer]. Start: 01-20-2023 End: 01-20-2023 Patient encounter procedure PA Marco Melvin Work Phone: [facility]Laboratory Work Phone: Start: 12-14-2022 End: 12-14-2022 Patient encounter procedure PA Marco Melvin Work Phone: [facility] Work Phone: Start: 12-02-2022 Non-patient / Non-visit PA Melonie ecca Mlevin Work Phone: [facility] Start: 12-02-2022 End: 12-02-2022 Admission to same day surgery center PA Marco Melvin Work Phone: [facility] Start: 12-02-2022 End: 12-02-2022 ambulatory PA Marco Melvin Work Phone: [facility] Work Phone: Start: 11-09-2022 End: 11-09-2022 Patient encounter procedure PA Marco Melvin Work Phone: [facility] Start: 10-19-2022 End: 10-19-2022 Patient encounter procedure PA Marco Melvin Work Phone: [facility] Start: 10-14-2022 End: 10-14-2022 Patient encounter procedure PA Marco Melvin Work Phone: [facility] Start: 10-14-2022 End: 10-14-2022 Patient encounter procedure PA Marco Melvin Work Phone: [facility] Start: 09-27-2022 End: 09-27-2022 Office outpatient visit 15 minutes Marco Melvin PA-C Work Phone: [employer] [email or web address] Start: 08-05-2022 End: 08-05-2022 Office outpatient visit 15 minutes Marco Melvin PA-C Work Phone: [employer] Start: 05-12-2022 End: 05-12-2022 Office outpatient visit 15 minutes Marco Melvin PA-C Work Phone: [employer] Start: 04-26-2022 End: 04-26-2022 Office outpatient visit 25 minutes Marco Melvin PA-C Work Phone: [employer] Start: 04-12-2022 End: 04-12-2022 Telephone follow-up Marco Melvin PA-C Work Phone: [employer] Start: 04-08-2022 End: 04-08-2022 Emergency department patient visit [facility]Emergency [facility] Start: 04-08-2022 Telephone encounter Hodan Dima casas APRN.CNM Work Phone: OB/Gynecology Comment on above: Heavy Bleeding Start: 02-07-2022 End: 02-07-2022 Office outpatient visit 15 minutes Marco Melvin PA-C Work Phone: [employer] Start: 12-01-2021 End: 12-01-2021 Office outpatient visit 15 minutes Marco Melvin PA-C Work Phone: [employer] Start: 08-03-2021 End: 08-03-2021 Office outpatient visit 15 minutes Marco Melvin PA-C Work Phone: [employer] Start: 05-13-2021 End: 05-13-2021 Office outpatient visit 15 minutes Marco Melvin PA-C Work Phone: [employer] Start: 04-26-2021 End: 04-26-2021 Office outpatient visit 15 minutes Marco Melvin PA-C Work Phone: [employer] Start: 02-27-2020 End: 02-27-2020 Patient encounter procedure Marco Emlvin PA-C Work Phone: [employer] Start: 01-31-2020 End: 01-31-2020 Office outpatient new 30 minutes Marco Melvin PA-C Work Phone: [employer] Procedures Date Procedure Procedure Detail Performing Clinician Start: 10-14-2024 Plain X-ray abdomen Melonie ecca Melvin PA Work Phone: Start: 10-13-2024 Abdom paracentesis d x/ther w/imaging guidance Jade Carmona DO Work Phone: Start: 10-13-2024 Comprehensive metabo lic panel Jade Carmona DO Work Phone: Start: 10-12-2024 Comprehensive metabo lic panel Jade Carmona DO Work Phone: Start: 10-11-2024 CT of thorax, abdome n and pelvis with contrast Marco Melvin PA Work Phone: Start: 08-15-2024 MRI of pelvis with contrast Marco Melvin PA Work Phone: Start: 06-19-2024 Gram stain microscopy R ebecca Melvin PA Work Phone: Start: 06-19-2024 Source specific culture Marco Melvin PA Work Phone: Start: 04-10-2024 Glucose post glucose dose Lucila Ho DO Work Phone: Start: 04-10-2024 GLUCOSE 2HR CHALLENGE K lakeisha Ho DO Work Phone: Start: 04-10-[address] gtt 3 specimens Lucila Ho [employer] Work Phone: Start: 03-17-2024 Glucose quantitative blood xcpt reagent strip Christiano Au MD Work Phone: Start: 03-16-2024 Glucose quantitative blood xcpt reagent strip Christiano Au MD Work Phone: Start: 03-16-2024 Glucose quantitative blood xcpt reagent strip Christiano Au MD Work Phone: Start: 03-16-2024 Glucose quantitative blood xcpt reagent strip Christiano Au MD Work Phone: Start: 03-15-2024 Glucose quantitative blood xcpt reagent strip Christiano Au MD Work Phone: Start: 03-15-2024 Glucose quantitative blood xcpt reagent strip Christiano Au MD Work Phone: Start: 03-15-2024 OXYGEN THERAPY Carolyn madrid [employer]NAGER [employer] Work Phone: Start: 03-15-2024 Glucose quantitative blood xcpt reagent strip Christiano Au MD Work Phone: Start: 03-15-2024 Glucose quantitative blood xcpt reagent strip Christiano Au MD Work Phone: Start: 03-15-2024 Blood count hemoglobin Chin Crews DO Work Phone: Start: 03-14-2024 Glucose quantitative blood xcpt reagent strip Christiano Au MD Work Phone: Start: 03-14-2024 Glucose quantitative blood xcpt reagent strip Christiano Au MD Work Phone: Start: 03-14-2024 End: 03-14-2024 delivery only Maria Dolores Guzmán Gordillo Edie O Work Phone: Start: 03-14-2024 Glucose quantitative blood xcpt reagent strip Rand Hallman MD Work Phone: Start: 03-14-2024 Us preg uterus real time f/u trnsabdl per fetus Juliana Nguyen DO Work Phone: Start: 03-14-2024 Glucose quantitative blood xcpt reagent strip Rand Hallman MD Work Phone: Start: 03-14-2024 Antibody screen BARAK COVARRUBIAS Comment on above: Performed By: #### L [id number] ####Brands Editor: GYPSY DAY ([phone])[facility] ([address] Start: 03-14-2024 Blood typing serolog ic rh (d) Savanah Duarte DO Work Phone: Start: 03-13-2024 Glucose quantitative blood xcpt reagent strip Rand Hallman MD Work Phone: Start: 03-13-2024 Glucose quantitative blood xcpt reagent strip Rand Hallman MD Work Phone: Start: 03-13-2024 End: 03-13-2024 Blood count complete automated Juliana Nguyen DO Work Phone: Start: 03-13-2024 Glucose quantitative blood xcpt reagent strip Rand Hallman MD Work Phone: Start: 03-12-2024 Glucose quantitative blood xcpt reagent strip Rand Hallman MD Work Phone: Start: 03-12-2024 Glucose quantitative blood xcpt reagent strip Rand Hallman MD Work Phone: Start: 03-12-2024 Glucose quantitative blood xcpt reagent strip Rand Hallman MD Work Phone: Start: 03-12-2024 Glucose quantitative blood xcpt reagent strip Rand Hallman MD Work Phone: Start: 03-11-2024 Glucose quantitative blood xcpt reagent strip Rand Hallman MD Work Phone: Start: 03-11-2024 Glucose quantitative blood xcpt reagent strip Rand Hallman MD Work Phone: Start: 03-11-2024 Glucose quantitative blood xcpt reagent strip Rand Hallman MD Work Phone: Start: 03-11-2024 biophysical pr ofile w/o non-stress testing Juliana Nguyen DO Work Phone: Start: 03-11-2024 Glucose quantitative blood xcpt reagent strip Rand Hallman MD Work Phone: Start: 03-10-2024 Glucose quantitative blood xcpt reagent strip Rand Hallman MD Work Phone: Start: 03-10-2024 Glucose quantitative blood xcpt reagent strip Rand Hallman MD Work Phone: Start: 03-10-2024 Glucose quantitative blood xcpt reagent strip Rand Hallman MD Work Phone: Start: 03-10-2024 Antibody screen BARAK COVARRUBIAS Comment on above: Performed By: #### L [id number] ####Brands Editor: GYPSY DAY ([id number])[facility] B[facility]OD [facility] ([address] Start: 03-10-2024 Blood typing serologic abo Rand Hallman MD Work Phone: Start: 03-10-2024 Glucose quantitative blood xcpt reagent strip Rand Hallman MD Work Phone: Start: 03-09-2024 Glucose quantitative blood xcpt reagent strip Rand Hallman MD Work Phone: Start: 03-09-2024 Glucose quantitative blood xcpt reagent strip Rand Hallman MD Work Phone: Start: 03-09-2024 Glucose quantitative blood xcpt reagent strip Rand Hallman MD Work Phone: Start: 03-09-2024 Glucose quantitative blood xcpt reagent strip Rand Hallman MD Work Phone: Start: 03-09-2024 Glucose quantitative blood xcpt reagent strip Rand Hallman MD Work Phone: Start: 03-08-2024 Glucose quantitative blood xcpt reagent strip Rand Hallman MD Work Phone: Start: 03-08-2024 Glucose quantitative blood xcpt reagent strip Rand Hallman MD Work Phone: Start: 03-08-2024 Glucose quantitative blood xcpt reagent strip Rand Hallman MD Work Phone: Start: 03-08-2024 Glucose quantitative blood xcpt reagent strip Rand Hallman MD Work Phone: Start: 03-07-2024 Glucose quantitative blood xcpt reagent strip Rand Hallman MD Work Phone: Start: 03-07-2024 Bacterial vaginosis and vaginitis rRNA panel - Vaginal fluid by Probe Juliana Nguyen DO Work Phone: Start: 03-07-2024 Iadna chlamydia trac homatis amplified probe tq Juliana Nguyen DO Work Phone: Start: 03-07-2024 Glucose quantitative blood xcpt reagent strip Rand Hallman MD Work Phone: Start: 03-07-2024 Glucose quantitative blood xcpt reagent strip Rand Hallman MD Work Phone: Start: 03-07-2024 Us preg uterus real time f/u trnsabdl per fetus Dali Hall MD Work Phone: Start: 03-07-2024 Glucose quantitative blood xcpt reagent strip Rand Hallman MD Work Phone: Start: 03-07-2024 Glucose quantitative blood xcpt reagent strip Rand Hallman MD Work Phone: Start: 03-06-2024 Glucose quantitative blood xcpt reagent strip Rand Hallman MD Work Phone: Start: 03-06-2024 Glucose quantitative blood xcpt reagent strip Rand Hallman MD Work Phone: Start: 03-06-2024 Culture bacterial quanttative colony count urine Juliana Nguyen DO Work Phone: Start: 03-06-2024 Antibody screen BARAK MITCH Comment on above: Order Comment: HOLD. Specimen is valid for 3 days - nurse to verify valid specimen Performed By: #### L [id number] ####Brands Editor: GYPSY DAY ([id number])[facility] ([address] Start: 03-06-2024 Blood count complete automated Dali Hall MD Work Phone: Start: 03-06-2024 Blood typing serologic abo Dali Hall MD Work Phone: Start: 03-06-2024 Adult depression scr eening assessment Rand Hallman MD Work Phone: Start: 10-25-2023 Urine culture PA Mamta Melvin Work Phone: Start: 09-29-2023 Transvaginal obstetr ic ultrasonography PA Marco Melvin Work Phone: Start: 09-22-2023 Transvaginal obstetr ic ultrasonography CHERYL Melvin Work Phone: Start: 09-19-2023 Transvaginal obstetr ic ultrasonography PA Marco Melvin Work Phone: Start: 02-15-2023 End: 02-14-2023 Depression screening Marco Melvin PA-C Work Phone: Start: 02-15-2023 End: 02-14-2023 Scr dep neg, no plan reqd Marco J Duane SEGURA Work Phone: Start: 12-02-2022 Laparoscopy PA Marco Melvin Work Phone: Start: 10-19-2022 US scan of thyroid CHERYL Melvin Work Phone: H/O: section S/P Cece Hallman MD Work Phone: Plan of Treatment Date Care Activity Detail Author Start: 2072 RSV Immunization for Adults (1 - 1-dose 75+ series) RSV Immunization for Adults (1 - 1-dose 75+ series) [facility] Start: 09-12-2047 Zoster Vaccines (1 of 2) Zoste r Vaccines (1 of 2) [facility] Start: 02-27-2034 DTaP/Tdap/Td Vaccine s (9 - Td or Tdap) DTaP/Tdap/Td Vaccines (9 - Td or Tdap) [facility] Start: 03-06-2025 Depression Screening Depression Scre ening [facility] Start: 03-03-2025 Influenza vaccination Influenz a Vaccine (Season Ended) [facility] Start: 10-14-2024 End: 10-14-2024 [facility] Start: 10-14-2024 Bacteria identified in Urine by Culture Urine Culture [facility] Start: 10-11-2024 [facility] Start: 10-11-2024 Removal of urinary catheter [facility] Start: 09-03-2024 Depression Monitoring Depression Mon itoring [facility] Start: 06-19-2024 Patient referral [facility] Work Phone: Start: 05-03-2024 Diabetes mellitus screening Diabetes Screening [facility] Start: 04-25-2024 End: 04-25-2024 Patient encounter procedure 04/25/2024 10:00 AM EDT Office Visit [facility] [address] [facility] [address] Julianna Ferraro, MANAGER [employer] [place], [place] [id number] 4 WEEKS POST [facility] Comment on above: 4 WEEKS POST Start: 03-23-2024 RSV Immunization age d 60 or older (1 - Risk 1-dose series) RSV Immunization aged 60 or older (1 - Risk 1-dose series) [facility] Start: 03-03-2024 COVID-19 (2023-2 5 season) COVID-19 ( season) [facility] Start: 03-03-2024 COVID-19 Vaccine ( season) COVID-19 Vaccine ( season) [facility] Start: 03-03-2024 FLU (#1) FLU (#1) [facility] Start: 03-03-2024 Influenza vaccination Influenza Vacc ine (#1) [facility] Start: 09-19-2023 [facility] Start: 09-19-2023 Transvaginal obstetr ic ultrasonography [facility] Start: 12-02-2022 Anesthesia intraperitoneal lower abd w/laps nos ANESTH SURG LOWER ABDOMEN [facility] Start: 12-02-[address] w/materials REOPEN FALLOPIAN TUBE [facility] Start: 12-02-2022 Laps abd prtm&omentu m dx w/wo spec br/wa spx DIAG LAPARO SEPARATE PROC [facility] Start: 12-02-2022 Ambulation without limitation [facility] Start: 12-02-2022 Medical regimen orde rs management [facility] Start: 12-02-2022 Medication education [facility] Start: 12-02-2022 Patient discharge [facility] Start: 12-02-2022 Procedure discontinued [facility] Start: 12-02-2022 Taking patient vital signs [facility] Start: 12-02-2022 Vital signs measurements [facility] Start: 12-02-2022 [facility] Start: 12-02-2022 Admission procedure [facility] Start: 03-03-2022 Influenza vaccination INFLUENZA (#1) [facility] Start: 10-17-2021 PAP TESTING PAP TESTING [facility] Start: 07-03-2021 DEPRESSION ASSESSMENT DEPRESSION ASS ESSMENT [facility] Start: 04-02-2021 COVID-19 Vaccine (3 - Moderna risk series) COVID-19 Vaccine (3 - Moderna risk series) [facility] Start: 03-01-2020 Urine microalbumin profile DTAP,TDAP,TD (5 - Td or Tdap) [facility] Start: 2018 Microscopic observat ion [Identifier] in Cervix by Cyto stain Pap Smear [facility] Start: 2018 Screening for malign ant neoplasm of cervix Pap Smear [facility] Start: 2016 Hepatitis B (1 of 3 - 19+ 3-dose series) Hepatitis B (1 of 3 - 19+ 3-dose series) [facility] Start: 2016 Pneumococcal Vaccine : Pediatrics (0 to 5 Years) and At-Risk Patients (6 to 49 Years) (1 of 2 - PCV) Pneumococcal Vaccine: Pediatrics (0 to 5 Years) and At-Risk Patients (6 to 49 Years) (1 of 2 - PCV) [facility] Start: 2016 Zoster Vaccines (1 of 2) Zoste r Vaccines (1 of 2) [facility] Start: 09-12-2015 HEPATITIS C SCREENING HEPATITIS C [facility] Start: 09-12-2015 Hepatitis C screening Hepatitis C [facility] Start: 09-12-2015 HIV SCREENING HIV SCREENING [facility] Start: 2013 MenB (1 of 2 - MenB 2-Dose Series Bexsero) MenB (1 of 2 - MenB 2-Dose Series Bexsero) [facility] Start: 2012 HPV (1 - 3-dose series) HPV (1 - 3-d ose series) [facility] Start: 09-12-2011 PEDS TO ADULT TRANSI TION ANNUAL ASSESSMENT PEDS TO ADULT TRANSITION ANNUAL ASSESSMENT [facility] Start: 2010 Varicella (1 of 2 - 13+ 2-dose series) Varicella (1 of 2 - 13+ 2-dose series) [facility] Start: 2009 PEDS TO ADULT TRANSI TION INITIAL DISCUSSION PEDS TO ADULT TRANSITION INITIAL DISCUSSION [facility] Start: 09-12-2007 MENINGOCOCCAL B: 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 based on risk (1 of 2 - Risk Bexsero 2-dose series) MENINGOCOCCAL B: Consider based on risk (1 of 2 - Risk Bexsero 2-dose series) [facility] Start: 2004 Tetanus Diphtheria a nd Pertussis Vaccines (1 - Tdap) Tetanus Diphtheria and Pertussis Vaccines (1 - Tdap) [facility] Start: 1998 MMR (1 of 1 - Standa rd series) MMR (1 of 1 - Standard series) [facility] Start: 03-14-1998 COVID-19 VACCINE (#1) COVID-19 VACCI NE (#1) [facility] Start: 1997 Hemoglobin A1c/Hemoglobin.total in Blood HbA1c [facility] Start: 1997 HIV screening HIV Screening [facility] Start: 1997 Lipid panel Lipid Panel [facility] CBC W Auto Different ial panel - Blood [facility] Hemoglobin A1c/Hemoglobin.total in Blood [facility] Hepatitis B surface antigen measurement [facility] Hepatitis C antibody measurement [facility] HIV 1+2 Ab+HIV1 p24 Ag [Presence] in Serum or Plasma by Immunoassay [facility] Patient Education [facility] Work Phone: Patient referral [facility] Work Phone: End: 03-06-2024 POCT Fern Test [facility] Work Phone: Comment on above: Once (Lab) for 1 Occ urrences starting 03/06/2024 until 03/06/2024 Prolactin [Mass/volu me] in Serum or Plasma [facility] Rubella IgG measurement [facility] Treponema sp Ab [Presence] in Serum [facility] Urine culture [facility] Immunizations Immunization Date Immunization Notes Care Provider Fa cility 02-28-2024 tetanus toxoid, redu ashley diphtheria toxoid, and acellular pertussis vaccine, adsorbed Marco LUNA Work Phone: [facility] 03-28-2019 influenza virus vaccine, unspecified formulation Hodan Jacob APRN.CNM Work Phone: [facility] Work Phone: 04-15-2014 influenza, injectabl e, quadrivalent, contains preservative Hodan Jacob APRN.CNM Work Phone: [facility] 09-06-2010 human papilloma viru s vaccine, quadrivalent Hodan Jacob APRN.CNM Work Phone: [facility] Work Phone: 09-06-2010 Human Papillomavirus 9-valent vaccine Hodan Jacob APRN.CNM Work Phone: [facility] 06-07-2010 human papilloma viru s vaccine, quadrivalent Hodan Jacob APRN.CNM Work Phone: [facility] Work Phone: 06-07-2010 Human Papillomavirus 9-valent vaccine Hodan Jacob APRN.CNM Work Phone: [facility] 03-01-2010 human papilloma viru s vaccine, quadrivalent Hodan Jacob APRN.CNM Work Phone: [facility] Work Phone: 03-01-2010 Human Papillomavirus 9-valent vaccine Hodan Jacob APRN.CNM Work Phone: [facility] 03-01-2010 meningococcal polysaccharide (groups A, C, Y and W-135) diphtheria toxoid conjugate vaccine (MCV4P) Hodan Jacob APRN.CNM Work Phone: [facility] Work Phone: 03-01-2010 meningococcal polysaccharide vaccine (MPSV4) Hodan Jacob APRN.CNM Work Phone: [facility] 03-01-2010 tetanus toxoid, redu ashley diphtheria toxoid, and acellular pertussis vaccine, adsorbed Hodan Jacob APRN.CNM Work Phone: [facility] Work Phone: 03-01-2010 varicella virus vaccine Raquel espinoza Jacob MANAGER VAN.CNM Work Phone: [facility] Work Phone: 02-02-2010 tetanus toxoid, redu ashley diphtheria toxoid, and acellular pertussis vaccine, adsorbed Hodan Jacob MANAGER VAN.CNM Work Phone: [facility] 11-04-2002 diphtheria, tetanus toxoids and acellular pertussis vaccine, 5 pertussis antigens Hodan Jacob APRN.CNM Work Phone: [facility] 11-04-2002 diphtheria, tetanus toxoids and acellular pertussis vaccine, unspecified formulation Hodan Jacob APRN.CNM Work Phone: [facility] Work Phone: 11-04-2002 measles, mumps and rubella virus vaccine Hodan Jacob APRN.CNM Work Phone: [facility] Work Phone: 11-04-2002 measles, mumps, rubella, and varicella virus vaccine Hodan Jacob APRN.CNM Work Phone: [facility] 11-04-2002 poliovirus vaccine, inactivated Hodan Jacob APRN.CNM Work Phone: [facility] Work Phone: 10-22-1999 varicella virus vaccine Raquel espinoza Jacob MANAGER VAN.CNM Work Phone: [facility] 10-11-1999 varicella virus vaccine Raquel Jacob MANAGER VAN.CNM Work Phone: [facility] Work Phone: 06-07-1999 diphtheria, tetanus toxoids and acellular pertussis vaccine, 5 pertussis antigens Hodan Jacob APRN.CNM Work Phone: [facility] 10-26-1998 measles, mumps, rubella, and varicella virus vaccine Hodan Jacob APRN.CNM Work Phone: [facility] 10-21-1998 haemophilus influenz ae type b conjugate and Hepatitis B vaccine Hodanespinoza Jacob APRN.CNM Work Phone: [facility] Work Phone: 10-21-1998 haemophilus influenz ae type b vaccine, HbOC conjugate Hodanespinoza Jacob APRN.CNM Work Phone: [facility] 10-21-1998 hepatitis B immune globulin Hodan Jacob APRN.CNM Work Phone: [facility] 10-21-1998 measles, mumps and rubella virus vaccine Hodan Jacob APRN.CNM Work Phone: [facility] Work Phone: 04-22-1998 diphtheria, tetanus toxoids and acellular pertussis vaccine, 5 pertussis antigens Hodan Jacob APRN.CNM Work Phone: [facility] 04-22-1998 haemophilus influenz ae type b vaccine, HbOC conjugate Hodan Jacob APRN.CNM Work Phone: [facility] 04-22-1998 poliovirus vaccine, inactivated Hodan Jacob APRN.CNM Work Phone: [facility] 01-14-1998 diphtheria, tetanus toxoids and acellular pertussis vaccine, 5 pertussis antigens Hodan Jacob APRN.CNM Work Phone: [facility] 01-14-1998 haemophilus influenz ae type b vaccine, HbOC conjugate Hodan Jacob APRN.CNM Work Phone: [facility] 01-14-1998 poliovirus vaccine, inactivated Hodan Jacob MANAGER VAN.CNM Work Phone: [facility] 1997 diphtheria, tetanus toxoids and acellular pertussis vaccine, 5 pertussis antigens Hodan Jacob APRN.CNM Work Phone: [facility] 1997 haemophilus influenz ae type b conjugate and Hepatitis B vaccine Hodan Jacob APRN.CNM Work Phone: [facility] Work Phone: 1997 haemophilus influenz ae type b vaccine, HbOC conjugate Hodan Jacob MANAGER VAN.CNM Work Phone: [facility] 1997 hepatitis B immune globulin Hodan Jacob MANAGER VAN.CNM Work Phone: [facility] 1997 poliovirus vaccine, inactivated Hodan Jacob MANAGER VAN.CNM Work Phone: [facility] 1997 hepatitis B immune globulin Hodan Jacob MANAGER VAN.CNM Work Phone: [facility] 1997 hepatitis B vaccine, pediatric or pediatric/adolescent dosage Hodan Jacob MANAGER VAN.CNM Work Phone: [facility] Work Phone: NEGATED: Highlighted row has not occurred!03-15-2024 measles, mumps and rubella virus vaccine Rand Hallman MD Work Phone: [facility] Comment on above: Deferred: No longer needed NEGATED: Highlighted row has not occurred!03-15-2024 tetanus toxoid, reduced diphtheria toxoid, and acellular pertussis vaccine, adsorbed Rand Hallman MD Work Phone: [facility] [employer] Comment on above: Deferred: No longer needed NEGATED: Highlighted row has not occurred!03-13-2024 influenza, injectable, madin bruce canine kidney, preservative free Rand Hallman MD Work Phone: [facility] [employer] Comment on above: Deferred: Patient Re fused - not now per pt Payers Date Payer Category Payer Unknown [id number] 2024 Self-pay [id number] 2023 Commercial Managed C [facility] [place] [id number] 2023 Unknown [id number] 2021 Unknown [id number]. 1.13.159. [id number] 2006 Unknown [id number] 1997 Unknown [id number] 2.16.840.1.171045.3.579. 2.651 1997 Unknown [id number] 2.16.840.1.720044.3.579. 2.651 1997 Unknown [id number] 2.16.840.1.319505.3.579. 2.479 1997 Unknown [id number] 2.16.840.1.304981.3.579. 2.479 1997 Unknown [id number] 2.16.840.1.995857.3.579. 2.479 1997 Unknown [id number] 2.16.840.1.902089.3.579. 2.479 1997 Unknown [id number] 2.16.840.1.586277.3.579. 2.479 1997 Unknown [id number] 2.16.840.1.368857.3.579. 2.479 1997 Unknown [id number] 2.16.840.1.208501.3.579. 2.479 1997 Unknown [id number] 2.16.840.1.934795.3.579. 2.479 1997 Unknown [id number] 2.16.840.1.886308.3.579. 2.627 1997 Unknown [id number] 2.16840.1.606356.3.579. 2.627 1997 Unknown [id number] 2.16.840.1.754191.3.579. 2.627 1997 Unknown [id number] 2.16.840.1.383840.3.579. 2.627 1997 Unknown [id number] 2.16840.1.178011.3.579. 2.627 Unknown ANTHEM SECONDARY [id number] Unknown [id number] 2.16840.1.015360.3.579. 2.462 Unknown [id number] 2.16840.1.015828.3.579. 2.462 Unknown [id number] 2.840.1.187841.3.579. 2.462 Unknown [id number] 2.840.1.774144.3.579. 2.462 Unknown [id number] 2.16840.1.635876.3.579. 2.462 Unknown [id number] 2.16840.1.020073.3.579. 2.462 Unknown [id number] 2.16840.1.737243.3.579. 2.462 Unknown [id number] 2.16840.1.840007.3.579. 2.462 Unknown [id number] 2.16840.1.315727.3.579. 2.462 Unknown [id number] 2.16840.1.054463.3.579. 2.462 Unknown [id number] 2.16840.1.079312.3.579. 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 [employer] Smokes tobacco daily [employer] Work Phone: Start: 08-26-2023 [facility] Start: 03-06-2024 End: 10-12-2024 Alcoholic beverage intake Ex-drinker (finding) [facility] [employer] Start: 03-11-2024 End: 10-12-2024 History of Social function [facility] [employer] Start: 03-11-2024 End: 10-12-2024 [facility] [employer] [facility] [employer] Has the [employer], [employer], or water [employer] threatened to shut off services in your home in past 12Mo No [facility] [employer] (I/We) worried wheth er (my/our) food would run out before (I/we) got money to buy more. Never true [facility] [employer] In the past 12 month s, has lack of transportation kept you from medical appointments or from getting medications? No [facility] [employer] Start: 10-11-2024 End: 03-06-2025 Tobacco smoking status NHIS Ex-smoker (finding) [facility] Start: 10-12-2024 End: 10-14-2024 Sex Female (finding) [facility] How often to you hav e a drink containing alcohol? Never [facility] Do you feel stress - tense, restless, nervous, or anxious, or unable to sleep at night because your mind is troubled all the time - these days [OSQ] Only a little [facility] NEGATED: Highlighted row [facility] Medical Equipment Procedure Code Equipment Code Equipment Origin al Text Equipment Identifier Dates Blood Sugar Diagnostic (Blood Glucose Test) strip Start: 02-26-2024 Lancets (Droplet Lancets) 30 gauge misc Start: 02-26-2024 Blood Sugar Diagnostic (Blood Glucose Test) strip Start: 02-26-2024 Lancets (Droplet Lancets) 30 gauge misc Start: 02-26-2024 Blood Sugar Diagnostic (Blood Glucose Test) strip Start: 02-26-2024 End: 03-06-2025 Lancets (Droplet Lancets) 30 gauge misc Start: 02-26-2024 End: 03-06-2025 Goals Date Patient Goal Desired Activity /State Mental Status Date Assessment Result Facility 12-02-2022 Cognitive function Voice/Name [facility] Work Phone: Clinical Notes 09-13-2011 to 10-14-2024 Note Date & Type Note Facility 10-14-2024 Discharge summary [facility] 10-14-2024 Radiology Diagnostic study note [facility] Imaging Services [address] [place] [address] Abdomen Single View (Portable) MR#: [id number] Acct: [id number] Name: JOSE EDWARD Rep #: [id number] : 1995 F 29 From: Makenna Brown DO PCP: CHERYL Samano Status: PRE ER Study:Abdomen Single View (Portable) Date of Exam: 10/14/24 Exam# [id number] Ordering Dr: Anabella Akers PROCEDURE: ABDOMEN SINGLE VIEW (PORTABLE) 10/14/2024 REASON FOR EXAM: ABDOMINAL PAIN, CONSTIPATION TECHNIQUE: Single view abdomen. COMPARISON: None FINDINGS: Bowel gas: Nonobstructive bowel gas pattern. No evidence of obstruction. Mild stool burden within the large bowel. Calcifications: No suspicious calcifications. Bones: The bones are unremarkable. Other: RAD/Abdomen Single View (Portable) IMPRESSION: CONSTIPATION. Reading Location: [facility] CC: CHERYL Weinstein; CHERYL Samano ~ Barge Pilot: Signed [facility] 10-14-2024 Discharge summary Note Date/Time October 14, 2024 9:46pm [facility] Medical Records Department [address] [place] [address] Emergency Department Summary 10/14/24 MR#: [id number] Acct: [id number] Name: JOSE EDWARD Rep #:[id number] : 1995 29 From: Soren Babcock MD PCP: CHERYL Samano Status:REG ER Location: ED HPI <CHERYL Weinstein - Last Filed: 10/14/24 21:43> History of Present Illness Chief Complaint: Abd Pain Narrative Narrative: 29-year-old female presents with abdominal pain. On 10/11/2024 she drove to [place], [place] to have egg retrieval at a fertility clinic. They did the procedure vaginally and punctured her bladder while retrieving some eggs. They prescribed Keflex and Pyridium. She drove home that same day and developed chest pain, shortness of breath, nausea and abdominal pain and had difficulty emptying her bladder. She was evaluated at [place] [facility] on the same day 10/[address] scan of chest abdomen pelvis negative for PE. There were enlarged ovaries with numerous cysts and moderate volume ascites compatible with ovarian hyperstimulation syndrome. She also had a West placed for urinary retention. She was transferred to [facility] for definitive treatment. She statesthey attempted a paracentesis yesterday but were unsuccessful. She showed me the report?they did left-sided paracentesis but the fluid dispersed and there was not enough to remove. Patient states she had been constipated and did not have a bowel movement for 6 days so they were concerned they may hit her bowel and the procedure was terminated. Her West catheter was also removed yesterday. [facility] also prescribed Lovenox shots x 1 week. She presents because she had a low-grade temperature of 99 ?F and still having nausea and generalizedabdominal pain and is urinating frequent small amounts. The chest pain and shortness of breath are much better. PFSH <CHERYL Weinstein - Last Filed: 10/14/24 21:43> [facility] Medical History Abnormal uterine bleeding Conceived by in vitro fertilization Supervision of high-risk Decreased movement False labor before 37 completed weeks of gestation premature rupture of membranes (PPROM) with unknown onset of labor Genetic testing of female Wears contact lenses Anxiety Alcohol use Heartburn Vapes nicotine containing substance Endometrial polyp Abnormal uterine bleeding (AUB) Home Medications ?Medication ?Instructions ?Recorded ?Last Taken ?Type omeprazole 20 mg tablet,delayed 20 mg PO DAILY 4 02/16/24 08:00 History release 20 mg multivitamin no.47-iron fum 27 1 cap PO DAILY #30 caps 12/15/23 02/16/24 12:00 Rx mg-folate no.1 1 mg-dha 300 mg 1 cap capsule (PNV-DHA) blood sugar diagnostic (Blood #50 ea 02/26/24 Unknown Rx Glucose Test strips) blood-glucose meter #1 ea 02/26/24 Unknown Rx lancets 30 gauge (Droplet Lancets) #200 ea 02/26/24 Un known Rx flash glucose scanning reader #1 ea 02/28/24 Unknown R x (FreeStyle Lexi 2 [place]) flash glucose sensor (FreeStyle #1 ea 02/28/24 Unknown Rx Lexi 2 Sensor kit) PNV no.151-iron 27 mg-folic 800 1 cap PO DAILY 5 Unknown History mcg-omega3 260 qd-mmv-crd-fish capsule ( Multi-DHA (with vitamin K)) cabergoline 0.5 mg tablet 0.5 mg PO DAILY 10/11/24 Unk nown History cephalexin 500 mg capsule 500 mg PO BID 10/11/24 Unkno wn History cholecalciferol (vitamin D3) 50 2,000 unit PO DAILY Unknown History mcg (2,000 unit) capsule (D3-2000) metformin 750 mg tablet,extended 750 mg PO DAILY 10/11 Unknown History release 24 hr phenazopyridine 200 mg tablet 200 mg PO BID 10/11/24 U nknown History (Pyridium) prednisone 10 mg tablet 10 mg PO BID 10/11/24 Unknow n History peg 3350-electrolytes 236 240 ml PO Q10M PRN #4,000 mL 10/14/24 Unknown Rx gram-22.74 gram-6.74 gram-5.86 gram solution (Golytely) Allergy/AdvReac Type Severity Reaction Status Date / Time Latex, Natural Rubber Allergy Intermediate Other Verified 10/14/24 18:30 azithromycin (From Zithromax) Allergy JOHN Verified 10/14/24 18:30 VIJI'S SYNDROME venlafaxine Allergy Other Verified 10/14/24 18:30 Family History Mother Diabetes Uncle Diabetes Grandmother Diabetes Surgical History [place] teeth extracted History of hysteroscopy Status post laparoscopy S/P D&C (status post dilation and curettage) Hx of lumpectomy History of tonsillectomy and adenoidectomy Social History adopted: No household members: spouse number of children: 0 current occupational status: employed current occupation: [employer] current occupational exposures/hazards: No pets and animals: Yes (Avoid litterbox) pets and animals: cat(s) and dog(s) history of recent travel: Yes ([facility]) out of state: Yes out of country: No sexually active: Yes Smoking Status: Former smoker Electronic Cigarette Use: with nicotine alcohol intake: never substance use type: does not use well-balanced diet: daily or most days caffeine: No eating out: 1-3 times/week during the past year weight has: increased > 10 lbs what type of physical activity do you participate in: none jessica/yazdanism: Mandaen seatbelt use: always do you feel safe at home: Yes additional social history: - Andrea PHILLIPS <CHERYL Weinstein - Last Filed: 10/14/24 21:43> ROS ED ROS Narrative Constitutional: Negative for fever, chills. GI: Positive for abdominal pain, nausea, constipation. : Negative for dysuria, hematuria. EXAM <CHERYL Weinstein - Last Filed: 10/14/24 21:43> Physical Exam Narrative Exam Narrative: CONST: Patient sitting in no acute distress. EYES: Normal inspection. NECK: Normal inspection. RESP: No respiratory distress, CTAB. CVS: Regular rate and rhythm, no murmur, no gallop. ABD: Soft with periumbilical tenderness, enlarged uterus, no guarding or rebound. SKIN: Color normal, no rash, warm, dry, intact. EXTREMITIES: Normal appearance, no pedal edema. NEURO: Alert and answering questions appropriately. PSYCH: Normal affect. Const Vital Signs: 10/14/24 18:26 10/14/24 20:00 10/14/24 20:56 Temperature 98.2 F 98.2 F 99.0 F Temperature Source Oral Oral Oral Pulse Rate 95 95 87 Respiratory Rate 16 16 16 Blood Pressure 99/75 99/75 116/75 Blood Pressure Mean 83 83 88 Pulse Ox 98 98 99 Oxygen Delivery Method Room Air Room Air Room Air 10/14/24 21:00 Temperature 99 F Temperature Source Oral Pulse Rate 92 Respiratory Rate 16 Blood Pressure 104/64 Blood Pressure Mean 77 Pulse Ox 100 Oxygen Delivery Method Room Air <Dr. Soren Babcock MD - Last Filed: 10/14/24 21:46> Physical Exam Const Vital Signs: 10/14/24 18:26 10/14/24 20:00 10/14/24 20:56 Temperature 98.2 F 98.2 F 99.0 F Temperature Source Oral Oral Oral Pulse Rate 95 95 87 Respiratory Rate 16 16 16 Blood Pressure 99/75 99/75 116/75 Blood Pressure Mean 83 83 88 Pulse Ox 98 98 99 Oxygen Delivery Method Room Air Room Air Room Air 10/14/24 21:00 Temperature 99 F Temperature Source Oral Pulse Rate 92 Respiratory Rate 16 Blood Pressure 104/64 Blood Pressure Mean 77 Pulse Ox 100 Oxygen Delivery Method Room Air MDM <CHERYL Weinstein - Last Filed: 10/14/24 21:43> [facility] MDM Narrative Medical decision making narrative: Differential includes but not limited to: Urinary retention, UTI, intra-abdominal infection, ovarian hyperstimulation, constipation 29-year-old female had eggs retrieval 3 days ago and was told her bladder was punctured. Since then she has had nausea, abdominal pain constipation, and urinary issues. She was at [facility] the last few days and they terminated paracentesis because there was not enough fluid to remove. She presents due to continued abdominal symptoms and frequent urination. She appears well and nontoxic and is afebrile and hemodynamically stable. Abdomen is soft and mildlybloated from enlarged uterus with no other concerning findings. Her previous leukocytosis has significantly trended down from 22.5 to 11.1 today. Hemoglobinof 10.4 is slightly lower than previous. CMP and lipase are negative. Serum test negative. She just had a CT of the chest/abdomen/pelvis 3 days ago and it showed ascites and ovarian hyperstimulation so do not think this needs repeated as her labs are better and her exam is benign. Her postvoid residual is 50 cc. Urinalysis is contaminated with 25-50 epithelials but is nitrite positive so was sent for culture. She is on Keflex from the fertility clinic and should continue this. KUB shows significant stool burden which is likely contributing to her abdominal pain. I prescribed GoLytely. She was discharged in stable condition. Lab Data Attestation: I reviewed the patient's lab results. Labs: Laboratory Results - last 24 hr 10/14/24 10/14/24 20:37 20:56 WBC 11.1 H RBC 3.48 L Hgb 10.4 L Hct 32.0 L MCV 92.0 MCH 29.9 MCHC 32.5 RDW Std Deviation 46.8 H RDW Coeff of Lizbet 14.4 Plt Count 237 MPV 9.2 Immature Gran % (Auto) 0.500 Neut % (Auto) 69.3 Lymph % (Auto) 21.9 [place] % (Auto) 6.5 Eos % (Auto) 1.6 Baso % (Auto) 0.2 Absolute Neuts (auto) 7.7 Absolute Lymphs (auto) 2.42 Nucleated RBC % 0 Sodium 137 Potassium 3.7 Chloride 101 Carbon Dioxide 24.3 Anion Gap 11 BUN 9 Creatinine 0.60 L Estim Creat Clear Calc 141.63 Est GFR (MDRD) Non-Af 126 BUN/Creatinine Ratio 15.2 Glucose 112 H Calcium 8.8 Total Bilirubin 0.56 AST 19 ALT 14 Alkaline Phosphatase 65 Total Protein 6.4 Albumin 4.0 Globulin 2.4 Albumin/Globulin Ratio 1.7 Lipase 29 Serum , Qual NEGATIVE Urine Color Rita Urine Clarity Sl. Cloudy Urine pH 7.0 Ur Specific [place] 1.015 Urine Protein 30 H Urine Glucose (UA) Normal Urine Ketones Negative Urine Occult Blood 150 H Urine Nitrite Positive H Urine Bilirubin 3 H Urine Urobilinogen 8 H Ur Leukocyte Esterase 25 H Urine RBC 10-25 SEEN Urine WBC 0-5 SEEN Ur Squamous Epith Cells 25-50 SEEN Amorphous Sediment 1+ PHOS Urine Bacteria 0 SEEN Urine Mucus 0 SEEN Radiography Diagnostic Testing: Clinical Impression(s) from Imaging Studies KUB X-Ray 10/14/24 21:24 IMPRESSION: CONSTIPATION. Reading Location: [facility] <Dr. oSren Babcock MD - Last Filed: 10/14/24 21:46> [facility] Narrative Medical decision making narrative: Differential includes but not limited to: Urinary retention, UTI, intra-abdominal infection, ovarian hyperstimulation, constipation 29-year-old female had eggs retrieval 3 days ago and was told her bladder was punctured. Since then she has had nausea, abdominal pain constipation, and urinary issues. She was at [facility] the last few days and they terminated paracentesis because there was not enough fluid to remove. She presents due to continued abdominal symptoms and frequent urination. She appears well and nontoxic and is afebrile and hemodynamically stable. Abdomen is soft and mildlybloated from enlarged uterus with no other concerning findings. Her previous leukocytosis has significantly trended down from 22.5 to 11.1 today. Hemoglobinof 10.4 is slightly lower than previous. CMP and lipase are negative. Serum test negative. She just had a CT of the chest/abdomen/pelvis 3 days ago and it showed ascites and ovarian hyperstimulation so do not think this needs repeated as her labs are better and her exam is benign. Her postvoid residual is 50 cc. Urinalysis is contaminated with 25-50 epithelials but is nitrite positive so was sent for culture. She is on Keflex from the fertility clinic and should continue this. KUB shows significant stool burden which is likely contributing to her abdominal pain. I prescribed GoLytely. She was discharged in stable condition. I have personally performed a face to face assessment of the patient and have reviewed the LEANNE Note. I performed a substantive portion of the visit including all aspects of the following. My alexandre findings include: History is [29-year-old female recently had eggs harvested. Complaining of abdominal discomfort and constipation. Recently was seen and worked up at a CT was sent to [facility]. They attempted at that time a paracentesis but there was enough fluid to drain.] Exam is [well-appearing 29-year-old female. Vital signs stable afebrile. H EENT exam moist with membranes. Pupils round reactive light. Lungs clear to auscultation bilaterally. Heart regular rhythm no murmur. Rate 90. Chest wall ribs nontender. Abdomen soft nondistended normal bowel sounds peritoneal signs. No hernia or mass. No distention. Moving all 4 extremities. Nontender no edema. Neurologically she is awake alert no focal motor deficits.] Medical Decision Making [29-year-old female suspect constipation versus other etiologies. She had recent CT imaging of her abdomen I do not think that needs to be repeated. We will obtain a KUB.] Other additions or changes: [Patient to be discharged home with magnesium citrate for constipation.] History & Record Review Discussion w/independent historian: Patient Additional record(s) reviewed:: Prior inpatient record, Prior outpatient record,Prior ED visit, Prior labs and No prior records Lab Data Lab results narrative: CBC shows a white count 11.1 much improved. H&H 10.4 and 32. Platelets 237. Electrolytes show gap 11. BUN 9 creatinine 0.6. Glucose 112. Liver enzymes normal. Lipase 29. Serum test negative. UA is positive for nitrites 10-25 red cells no white cells 0 bacteria KUB shows increased stool throughout the colon and rectum consistent with constipation. Labs: Laboratory Results - last 24 hr 10/14/24 10/14/24 20:37 20:56 WBC 11.1 H RBC 3.48 L Hgb 10.4 L Hct 32.0 L MCV 92.0 MCH 29.9 MCHC 32.5 RDW Std Deviation 46.8 H RDW Coeff of Lizbet 14.4 Plt Count 237 MPV 9.2 Immature Gran % (Auto) 0.500 Neut % (Auto) 69.3 Lymph % (Auto) 21.9 [place] % (Auto) 6.5 Eos % (Auto) 1.6 Baso % (Auto) 0.2 Absolute Neuts (auto) 7.7 Absolute Lymphs (auto) 2.42 Nucleated RBC % 0 Sodium 137 Potassium 3.7 Chloride 101 Carbon Dioxide 24.3 Anion Gap 11 BUN 9 Creatinine 0.60 L Estim Creat Clear Calc 141.63 Est GFR (MDRD) Non-Af 126 BUN/Creatinine Ratio 15.2 Glucose 112 H Calcium 8.8 Total Bilirubin 0.56 AST 19 ALT 14 Alkaline Phosphatase 65 Total Protein 6.4 Albumin 4.0 Globulin 2.4 Albumin/Globulin Ratio 1.7 Lipase 29 Serum , Qual NEGATIVE Urine Color Rita Urine Clarity Sl. Cloudy Urine pH 7.0 Ur Specific [place] 1.015 Urine Protein 30 H Urine Glucose (UA) Normal Urine Ketones Negative Urine Occult Blood 150 H Urine Nitrite Positive H Urine Bilirubin 3 H Urine Urobilinogen 8 H Ur Leukocyte Esterase 25 H Urine RBC 10-25 SEEN Urine WBC 0-5 SEEN Ur Squamous Epith Cells 25-50 SEEN Amorphous Sediment 1+ PHOS Urine Bacteria 0 SEEN Urine Mucus 0 SEEN Radiography Diagnostic Testing: Clinical Impression(s) from Imaging Studies KUB X-Ray 10/14/24 21:24 IMPRESSION: CONSTIPATION. Reading Location: [facility] Discharge Plan Triage Chief Complaint: Abd Pain ED Midlevel Provider: Anabella Malave ED Provider: Soren Babcock Dx/Rx/DC Orders Clinical Impression: Constipation, Abdominal pain, Ovarian hyperstimulation syndrome Instructions: Abdominal Pain, ED Constipation (Adult) Prescriptions: No Action omeprazole 20 mg tablet,delayed release (DR/EC) 20 mg PO DAILY (DME) FreeStyle Lexi 2 [place] Misc See Rx Instructions .Route Qty: 1 0RF Rx Instructions: As directed (DME) FreeStyle Lexi 2 Sensor Kit See Rx Instructions .Route Qty: 1 0RF Rx Instructions: As directed cholecalciferol (vitamin D3) [D3-2000] 50 mcg (2,000 unit) capsule 2,000 unit PO DAILY cephalexin 500 mg capsule 500 mg PO BID phenazopyridine [Pyridium] 200 mg tablet 200 mg PO BID prednisone 10 mg tablet 10 mg PO BID cabergoline 0.5 mg tablet 0.5 mg PO DAILY metformin 750 mg tablet extended release 24 hr 750 mg PO DAILY Multi-DHA(with vit K) 27 mg iron-800 mcg-260 mg capsule 1 cap PO DAILY PNV-DHA 27 mg iron-1 mg -300 mg capsule 1 cap PO DAILY Qty: 30 12RF (DME) blood-glucose meter Misc See Rx Instructions .ROUTE .MEDSUPPLY Qty: 1 0RF Rx Instructions: As directed (DME) Blood Glucose Test Strip See Rx Instructions .ROUTE .MEDSUPPLY Qty: 50 6RF Rx Instructions: Check blood sugars Fasting and 2 hours after breakfast, lunch, and dinner. (DME) lancets [Droplet Lancets] 30 gauge misc See Rx Instructions .ROUTE .MEDSUPPLY Qty: 200 2RF Rx Instructions: Check blood sugars fasting and 2 hours after breakfast, lunch, and supper. Primary Care Provider: Marco Melvin Referrals: Marco Melvin PA [Primary Care Provider] - Activity Restrictions/Additional Instructions: The x-ray of your abdomen shows significant constipation. I recommend you take magnesium citrate which is sold [id number]. Drink plenty of water and Gatorade to avoid dehydration as this will cause a lot of bowel movements. You also could be having pain from the ovarian hyperstimulation syndrome which should get better over time. I recommend follow-up with your TELECOM ENGINEER. Print Language: Wallisian Disposition Disposition: Home, Self Care What to do if you have Problems For any increased pain, shortness of breath, bleeding, nausea or vomiting, chestpain, or any unexpected problems, contact your Primary Care Provider. Call [facility] ([phone]) or report to the closest Emergency Room. Call 911 if necessary. 10/14/242145 <Electronically signed by Soren Babcock MD> Cosigner Signature (if applicable): 10/14/242142 <Electronically signed by Anabella LUNA> CC: CHERYL Samano ~ Signed [facility] Work Phone: [phone]) 433-448104-13-2025 NoteGyn Discharge Summary Patient Name: Jose Edward Patient : 1995 Primary Care Physician: Marco Melvin Admit Date: 10/12/2024 Attending Provider: Barak Covarrubias MD Principal Diagnosis: Ovarian hyperstimulation syndrome Other Diagnosis: Ovarian hyperstimulation syndrome [N98.1] Patient Active Problem List Diagnosis Anhydramnios in third trimester, single or unspecified fetus Ovarian hyperstimulation syndrome Surgical Operations & Procedures: None Consultations: None Pertinent Findings & Procedures: Jose Edward is a 29 y.o. female , admitted [...] Follow up in 1-2 weeks with primary TELECOM ENGINEER, Dr. Velarde. Discharge instructions reviewed and questions [...] up: 1 to 2 weeks with primary TELECOM ENGINEER Condition on discharge: good and stable Discharge Date: 10/13/24 Comments: Home care, Follow-up care, restrictions reviewed. Jade Carmona DO 10/13/2024, 11:44 [place] [id number] Hospital course Narrative* Jade Carmona DO - 10/13/2024 11:42 AM EDT Images from the original note were not included. Fire Protection Specialist Discharge Summary Patient Name: Jose Edward Patient : 1995 Primary Care Physician: Marco Melvin Admit Date: 10/12/2024 Attending Provider: Barak Covarrubias MD Principal Diagnosis: Ovarian hyperstimulation syndrome Other Diagnosis: Ovarian hyperstimulation syndrome [N98.1] Patient Active Problem List Diagnosis Anhydramnios in third trimester, single or unspecified fetus Ovarian hyperstimulation syndrome Surgical Operations & Procedures: None Consultations: None Pertinent Findings & Procedures: Jose Edward is a 29 y.o. female , admitted for ovarian hyperstimulation syndrome. CT A/P 10/11 showed markedly enlarged ovaries, moderate amount of ascites. Her labs remarkable for leukocytosis of 19.6 on admission that came down to 12.4 prior to discharge. LFTs, creatinine were normal.She was started on IV fluids, and supportive care. Patient was taken for planned paracentesis on 10/13/2024 but they were unable to perform it due to minimal amount of fluid, and increased stool burden in her bowel. Overall her pain was well-controlled, her abdomen remained soft, slightly distended and non- acute. Patient was deemed stable for discharge on 10/13/2024. Patient was instructed to resume Lovenox injections. Follow up in 1-2 weeks with primary TELECOM ENGINEER, Dr. Velarde. Discharge instructions reviewed and questions [...] up: 1 to 2 weeks with primary TELECOM ENGINEER Condition on discharge: good and stable Discharge Date: 10/13/24 Comments: Home care, Follow-up care, restrictions reviewed. Jade Carmona DO 10/13/2024, 11:44 AM Cosigned by Gypsy Pelayo MD at 10/13/2024 12:56 PM EDT documented in this [facility]04-13-2025 History of Present illness Narrative* Jade Carmona DO - 10/13/2024 6:11 AM EDT Images from the original note were not included. PAYROLL REPRESENTATIVE Progress Note Date: 10/13/2024 Time: 6:11 AM Jose Edward 29 y.o. female , admitted for OHSS Patient seen and examined. She complained of continued bloating and some abdominal pain. Pain is controlled. Patient is tolerating oral intake. She is urinating. She denies any vaginal bleeding. She is ambulating without difficulty. Has not had a BM since admission. She denies Fever/Chills, Chest Pa in, SOB, N/V. Vitals: Vitals: 10/12/24 0337 10/12/24 0509 10/12/24 1805 10/13/24 0531 BP: 102/65 116/74 99/61 BP Location: Right arm Right arm Patient Position: Lying Sitting Pulse: 97 100 81 Resp: 16 16 17 Temp: 36.9 C (98.5 F) 36.9 C (98.5 F) 36.7 C (98 F) TempSrc: Temporal Temporal Temporal SpO2: 96% 98% 98% Weight: 186 lb (84.4 kg) Height: 5' 2 (1.575 m) Intake/Output: Current Shift: No intake/output [...] mg, 0.4 mg, IntraVENous, q5 min PRN, Barak Covarrubias MD ondansetron ODT (Zofran-ODT) disintegrating tablet 4 mg, 4 mg, Oral, q8h PRN, 4 mg at 10/12/24 1107OR ondansetron (Zofran) injection 4 mg, 4 mg, IntraVENous, q6h PRN, Jade Carmona DO oxyCODONE (Roxicodone) immediate release tablet 5 mg, 5 mg, Oral, q6h PRN, Dali Hall MD, 5 mg at10/12/24 1829 phenazopyridine (Pyridium) tablet 200 mg, 200 [...] on the Chronic Kidney Disease Epidemiology Collaboration (CKD- EPI) equation refitwithout adjustment for race PROTHROMBIN TIME 10/12/2024 10.1 [...] on the Chronic Kidney Disease Epidemiology Collaboration (CKD- EPI) equation refitwithout adjustment for race Assessment/Plan: Jose Edward 29 y.o. female , admitted for OHSS [...] Problem: Ovarian hyperstimulation syndrome Please page the [facility] O[facility]YN Call RES group via Secure Chat for any questions or concerns. Jade Carmona DO 10/13/2024, 6:11 AM Cosigned by Gypsy Pelayo MD at 10/13/2024 8:34 AM EDT Associated attestation - Gypsy Pelayo MD - 10/13/2024 8:34 AM EDT Hospital Care (Independent): I independently saw and evaluated the patient. I agree with the findings and plan of care as documented in the resident's note. Stable labs and patient without complaints except for bloating. Abd mildly, softly distended. Awaiting paracentesis today. documented in this [facility]04-13-2025 Plan of care note* Care Plan - Lucinda Poe RN - 10/13/2024 4:35 AM EDT Problem: Pain - Adult Goal: Verbalizes/displays adequate comfort level or baseline comfort level Outcome: Progressing Problem: Safety - Adult Goal: Free from fall injury Outcome: Progressing Problem: Discharge Planning Goal: Discharge to home or other facility with appropriate resources Outcome: Progressing Problem: Chronic Conditions and Co-morbidities Goal: Patient's chronic conditions and co-morbidity symptoms are monitored and maintained or improved Outcome: Progressing [id number] Miscellaneous Notes* Care Plan - Lucinda Poe RN - 10/13/2024 4:35 AM EDT Problem: Pain - Adult Goal: Verbalizes/displays adequate comfort level or baseline comfort level Outcome: Progressing Problem: Safety - Adult Goal: Free from fall injury Outcome: Progressing Problem: Discharge Planning Goal: Discharge to home or other facility with appropriate resources Outcome: Progressing Problem: Chronic Conditions and Co-morbidities Goal: Patient's chronic conditions and co-morbidity symptoms are monitored and maintained or improved Outcome: Progressing * Care Plan - Lucinda Poe RN - 10/12/2024 6:30 AM EDT Problem: Pain - Adult Goal: Verbalizes/displays adequate comfort level or baseline comfort level Outcome: Progressing Problem: Safety - Adult Goal: Free from fall injury Outcome: Progressing Problem: Discharge Planning Goal: Discharge to home or other facility with appropriate resources Outcome: Progressing Problem: Chronic Conditions and Co-morbidities Goal: Patient's chronic conditions and co-morbidity symptoms are monitored and maintained or improved Outcome: Progressing documented in this [facility]04-12-2025 Plan of care note* Care Plan - Lucinda Poe RN - 10/12/2024 6:30 AM EDT Problem: Pain - Adult Goal: Verbalizes/displays adequate comfort level or baseline comfort level Outcome: Progressing Problem: Safety - Adult Goal: Free from fall injury Outcome: Progressing Problem: Discharge Planning Goal: Discharge to home or other facility with appropriate resources Outcome: Progressing Problem: Chronic Conditions and Co-morbidities Goal: Patient's chronic conditions and co-morbidity symptoms are monitored and maintained or improved Outcome: Progressing [id number] History and physical note* Jade Carmona, DO - 10/12/2024 5:56 AM EDT Images from the original note were not included. TELECOM ENGINEER H&P Patient Name: Jose Edward Patient : 1995 [facility] Admission Date/Time: 10/12/2024 3:14 AM Primary Care Physician: Marco Melvin HPI: Jose Edward is a 29 y.o. female patient transferred from [facility] for concern for ovarian hyperstimulation syndrome. Patient recently had an egg retrieval in [place] 24 hours ago, she states that over the past several days leading up to her retrieval she felt bloated, nauseous, and had weight gain. She states that this is the second time that she is gone a retrieval, she hadmild OH SS with her last retrieval. She is still tolerating p.o., she is constipated, has not had abowel movement for the past 2 days, but this is her baseline. She states that at her egg retrieval,they had to go through my bladder, so she currently has a catheter in and would like it to remainin place due to pain. They sent her [...] Allergies Allergen Reactions Zithromax [Azithromycin] Other [facility] syndrome Effexor [Venlafaxine] Tremors/jittery Latex Rash MEDICATIONS: Current Facility-Administered Medications: acetaminophen (Tylenol) tablet 1,000 mg, 1,000 mg, Oral, q8h, Jade Carmona, DO docusate sodium (Colace) capsule 100 mg, 100 mg, Oral, BID, Jade Waldropk, DO lactated Ringer's infusion, 100 mL/hr, IntraVENous, Continuous, Jade Carmona, DO, Last Rate: 100 mL/hr at 10/12/24 0522, 100 mL/hr at 10/12/24 0522 ondansetron ODT [...] 1,000 mg 1,000 mg Oral q8h Jade Waldropk, DO docusate sodium (Colace) capsule 100 mg 100 mg Oral BID Jade Carmona, DO lactated Ringer's infusion 100 mL/hr IntraVENous Continuous Jade Carmona DO 100 mL/hr at 10/12/24 0522 100 mL/hr at 10/12/24 0522 ondansetron ODT (Zofran-ODT) disintegrating tablet 4 mg 4 mg Oral q8h PRN Jade Carmona, DO Or ondansetron (Zofran) injection 4 mg 4 mg IntraVENous q6h PRN Jade Van Melissak, DO polyethylene glycol (PEG) 3350 (Miralax) packet 17 g 17 g Oral Daily PRN Jade Van Melissak, DO sodium chloride 0.9 % infusion 5-250 mL/hr IntraVENous PRN Jade Van Melissak, DO sodium chloride 0.9% (NS) flush 5-40 mL 5-40 mL IntraVENous q12h Jade Waldropk, DO 10 mL at 10/12/24 0400 sodium chloride 0.9% (NS) flush 5-40 mL 5-40 mL IntraVENous PRN Jade Van Dianak, DO VITALS: BP 102/65 (BP Location: Right arm, Patient Position: Lying) Pulse 97 Temp 36.9 C (98.5 F) (Temporal) Resp 16 Ht 5' 2 (1.575 m) Wt 186 lb (84.4 kg) SpO2 96% BMI 34.02 kg/m INPUT/OUTPUT: No intake/output data recorded. PHYSICAL EXAM: [...] PLT 282 03/13/2024 No results found for: NA, K, CL, CO2, BUN, CREATININE, GLUCOSE, CALCIUM Urinalysis: No results found for: CLARITYU, COLORU, PHUR, SPECGRAV, PROTEINU, BLOODU, BACTERIA, LEUKOCYTESUR, YEAST, GLUCOSEU, BILIRUBINUR DIAGNOSTICS: No results found. ASSESSMENT & PLAN: Jose Edward is a 29 y.o. female Ovarian hyperstimulation syndrome -Patient is s/p ovarian stimulation 24 hours ago, has been having increased abdominal distention, nausea -Patient was evaluated at [place] [facility] initially and obtained imaging as stated below, imaging is available on PACS -CT A/P 10/11 no traumatic abdominal aortic injury or retroperitoneal hematoma, markedly enlarged ovaries with numerous ovarian cysts and moderate volume ascites, compatible with ovarian hyperstimulation - CTA 10/11 no traumatic thoracic aortic aneurysm or mediastinal hematoma ectasia of the main pulmonary artery seen in pulmonary hypertension -Patient transferred to [facility] for further management -CBC, CMP, coags collected [...] pain management -Avoid NSAIDs Please page the [facility] OBGYN Call RES group via Secure Chat for any questions or concerns. Jade Carmona DO 10/12/2024, 5:56 AM Cosigned by Malia Reina MD at 10/12/2024 10:19 PM EDT Associated attestation - Malia Reina MD - 10/12/2024 10:19 PM EDT Hospital Care (Independent): I independently saw and evaluated the patient. I agree with the findings and plan of care as documented in the resident's note. [id number] Note Attestation signed by Malia Reina MD at 10/12/2024 10:19 PM Hospital Care (Independent): I independently saw and evaluated the patient. I agree with the findings and plan of care as documented in the resident's note. TELECOM ENGINEER H&P Patient Name: Jose Edward Patient : 1995 Room/Bed: [facility]/[address] Admission Date/Time: 10/12/2024 3:14 AM Primary Care Physician: Marco Melvin HPI: Jose Edward is a 29 y.o. female patient transferred from [place] ED for concern for ovarian hyperstimulation syndrome. Patient recently had an egg retrieval in [place] 24 hours ago, she states that over [...] her egg retrieval, they had to go through my bladder, so she currently has a catheter in [...] Allergies Allergen Reactions Zithromax [Azithromycin] Other Kaiser Viji syndrome Effexor [Venlafaxine] Tremors/jittery Latex Rash MEDICATIONS: Current Facility-Administered Medications: acetaminophen (Tylenol) tablet 1,000 mg, 1,000 mg, Oral, q8h, Jade Carmona, DO docusate sodium (Colace) capsule 100 mg, 100 mg, Oral, BID, Jade Waldropk, DO lactated Ringer's infusion, 100 mL/hr, IntraVENous, Continuous, Jade Carmona, DO, Last Rate: 100 mL/hr at 10/12/24 0522, 100 mL/hr at 10/12/24 0522 ondansetron ODT (Zofran-ODT) disintegrating tablet 4 mg, 4 mg, Oral, q8h PRN OR ondansetron (Zofran) injection 4 mg, 4 mg, IntraVENous, q6h PRN, Jade Waldropk, DO polyethylene glycol (PEG) 3350 (Miralax) packet 17 g, 17 g, Oral, Daily PRN, Jade Ballard Dianak, DO sodium chloride 0.9 % infusion, 5-250 mL/hr, IntraVENous, PRN, Jade Waldropk, DO sodium chloride 0.9% (NS) flush 5-40 mL, 5-40 mL, IntraVENous, q12h, Jade Carmona, DO, 10 mL at 10/12/24 0400 sodium chloride 0.9% (NS) flush 5-40 mL, 5-40 mL, IntraVENous, PRN, Jade Ballard Dijck, DO SOCIAL HISTORY: Social Connections: Not on file Medications: Current Inpatient Current Facility-Administered Medications Medication Dose Route Frequency Provider Last Rate Last Admin acetaminophen (Tylenol) tablet 1,000 mg 1,000 mg Oral q8h Jade Waldropk, DO docusate sodium (Colace) capsule 100 mg 100 mg Oral BID Jade Carmona, DO lactated Ringer's infusion 100 mL/hr IntraVENous Continuous Jade Carmona, DO 100 mL/hr at 10/12/24 0522 100 mL/hr at 10/12/24 0522 ondansetron ODT (Zofran-ODT) disintegrating tablet 4 mg 4 mg Oral q8h PRN Jade Carmona, DO Or ondansetron (Zofran) injection 4 mg 4 mg IntraVENous q6h PRN Jade Carmona, DO polyethylene glycol (PEG) 3350 (Miralax) packet 17 g 17 g Oral Daily PRN Jade Waldropk, DO sodium chloride 0.9 % infusion 5-250 mL/hr IntraVENous PRN Jade Waldropk, DO sodium chloride 0.9% (NS) flush 5-40 mL 5-40 mL IntraVENous q12h Jade Waldropk, DO 10 mL at 10/12/24 0400 sodium chloride 0.9% (NS) flush 5-40 mL 5-40 mL IntraVENous PRN Jade Waldropk, DO VITALS: BP 102/65 (BP Location: Right arm, Patient Position: Lying) Pulse 97 Temp 36.9 ?C (98.5 ?F) (Temporal) Resp 16 Ht 5' 2 (1.575 m) Wt 186 lb (84.4 kg) SpO2 96% BMI 34.02 kg/m? INPUT/OUTPUT: No intake/output data recorded. PHYSICAL EXAM: Physical Exam Constitutional: General: She is not in acute distress. Appearance: Normal appearance. She is obese. HENT: Head: Normocephalic and atraumatic. Pulm (more content not included)...[facility]04-12-2025 History and physical note* Jade Carmona DO - 10/12/2024 5:56 AM EDT Images from the original note were not included. 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 female patient transferred from [place] ED for concern for ovarian hyperstimulation syndrome. Patient recently had an egg retrieval in [place] 24 hours ago, she states that over the past several days leading up to her retrieval she felt bloated, nauseous, and had weight gain. She states that this is the second time that she is gone a retrieval, she hadmild OH SS with her last retrieval. She is still tolerating p.o., she is constipated, has not had abowel movement for the past 2 days, but this is her baseline. She states that at her egg retrieval,they had to go through my bladder, so she currently has a catheter in and would like it to remainin place due to pain. They sent her [...] Sex Type Anes PTL Lv 3 2 SAB 2022 1 2016 PAST MEDICAL HISTORY: Past Medical History: Diagnosis Date Anxiety Asthma as child-exercise induced Depression Female infertility Gestational diabetes Polycystic ovary syndrome PAST SURGICAL HISTORY: Past Surgical History: Procedure Laterality Date HYSTEROSCOPY TONSILLECTOMY (HISTORICAL) ALLERGIES: Allergies Allergen Reactions Zithromax [Azithromycin] Other Kaiser Viji syndrome Effexor [Venlafaxine] Tremors/jittery Latex Rash MEDICATIONS: Current Facility-Administered Medications: acetaminophen (Tylenol) tablet 1,000 mg, 1,000 mg, Oral, q8h, Jade Carmona DO docusate sodium (Colace) capsule 100 mg, 100 mg, Oral, BID, Jade Carmona DO lactated Ringer's infusion, 100 mL/hr, IntraVENous, Continuous, Jade Carmona DO, Last Rate: 100 mL/hr at 10/12/24 0522, 100 mL/hr at 10/12/24 05 ondansetron ODT (Zofran-ODT) disintegrating tablet 4 mg, 4 mg, Oral, q8h PRN OR ondansetron (Zofran) injection 4 mg, 4 mg, IntraVENous, q6h PRN, Jade Carmona, DO polyethylene glycol (PEG) 3350 (Miralax) packet 17 g, 17 g, Oral, Daily PRN, Jade Carmona, sodium chloride 0.9 % infusion, 5-250 mL/hr, IntraVENous, PRN, Jade Carmona, DO sodium chloride 0.9% (NS) flush 5-40 mL, 5-40 mL, IntraVENous, q12h, Jade Carmona DO, 10 mL at 10/12/24 0400 sodium chloride 0.9% (NS) flush 5-40 mL, 5-40 mL, IntraVENous, PRN, Jade Carmona, DO SOCIAL HISTORY: Social Connections: Not on file Medications: Current Inpatient Current Facility-Administered Medications Medication Dose Route Frequency Provider Last Rate Last Admin acetaminophen (Tylenol) tablet 1,000 mg 1,000 mg Oral q8h Jade Carmona DO docusate sodium (Colace) capsule 100 mg 100 mg Oral BID Jade Carmona DO lactated Ringer's infusion 100 mL/hr IntraVENous Continuous Jade Carmona DO 100 mL/hr at 10/12/24 0522 100 mL/hr at 10/12/24 0522 ondansetron ODT (Zofran-ODT) disintegrating tablet 4 mg 4 mg Oral q8h PRN Jade Van Dijck, DO Or ondansetron (Zofran) injection 4 mg 4 mg IntraVENous q6h PRN Jade Van Dijck, DO polyethylene glycol (PEG) 3350 (Miralax) packet 17 g 17 g Oral Daily PRN Jade Van Dijck, DO sodium chloride 0.9 % infusion 5-250 mL/hr IntraVENous PRN Jade Van Dijck, DO sodium chloride 0.9% (NS) flush 5-40 mL 5-40 mL IntraVENous q12h Jade Van Dijck, DO 10 mL at 10/12/24 0400 sodium chloride 0.9% (NS) flush 5-40 mL 5-40 mL IntraVENous PRN Jade Van Dijck, DO VITALS: BP 102/65 (BP Location: Right arm, Patient Position: Lying) Pulse 97 Temp 36.9 C (98.5 F) (Temporal) Resp 16 Ht 5' 2 (1.575 m) Wt 186 lb (84.4 kg) SpO2 96% BMI 34.02 kg/m INPUT/OUTPUT: No intake/output data recorded. PHYSICAL EXAM: [...] PLT 282 03/13/2024 No results found for: NA, K, CL, CO2, BUN, CREATININE, GLUCOSE, CALCIUM Urinalysis: No results found for: CLARITYU, COLORU, PHUR, SPECGRAV, PROTEINU, BLOODU, BACTERIA, LEUKOCYTESUR, YEAST, GLUCOSEU, BILIRUBINUR DIAGNOSTICS: No results found. ASSESSMENT & PLAN: Jose Edward is a 29 y.o. female Ovarian hyperstimulation syndrome -Patient is s/p ovarian stimulation 24 hours ago, has been having increased abdominal distention, nausea -Patient was evaluated at [place] ED initially and obtained imaging as stated below, imaging is available on PACS -CT A/P 10/11 no traumatic abdominal aortic injury or retroperitoneal hematoma, markedly enlarged ovaries with numerous ovarian cysts and moderate volume ascites, compatible with ovarian hyperstimulation - CTA 10/11 no traumatic thoracic aortic aneurysm or mediastinal hematoma ectasia of the main pulmonary artery seen in pulmonary hypertension -Patient transferred to [facility] for further management -CBC, CMP, coags collected [...] pain management -Avoid NSAIDs Please page the [facility] OBGYN Call RES group via Secure Chat for any questions or concerns. Jade Carmona DO 10/12/2024, 5:56 AM Cosigned by Malia Reina MD at 10/12/2024 10:19 PM EDT Associated attestation - Malia Reina MD - 10/12/2024 10:19 PM EDT Hospital Care (Independent): I independently saw and evaluated the patient. I agree with the findings and plan of care as documented in the resident's note. documented in this [facility]04-12-2025 Discharge summary [facility] Medical Records Department [address] [place] [address] Emergency Department Summary 10/11/24 MR#: [id number] Acct: [id number] Name: JOSE EDWARD LONNY Rep #:[id number] : 1995 29 From: Fern Marroquin DO PCP: CHERYL Samano Status:REG ER Location: ED HPI History of Present Illness Chief Complaint: Shortness of Breath Detail of Chief Complaint: Shortness of breath and abdominal pain Informant: patient Narrative Narrative: Patient presents to the emergency department complaint shortness of breath and abdominal pain that started this morning. [facility] clinic. She states that they went in through the vagina and they had to puncture her bladderto get some of the eggs. Patient complaining of hard time emptying her bladder. She complains of abdominal pain as well as pain in her chest with deep breath and feels short of breath. Patient denies any fever. Patient states that she was started on an antibiotic and given something for pain but it is not helping her pain. Patient has history of PCOS. No prior history of PE or DVT [facility] Medical History Abnormal uterine bleeding Conceived by in vitro fertilization Supervision of high-risk Decreased movement False labor before 37 completed weeks of gestation premature rupture of membranes (PPROM) with unknown onset of labor Genetic testing of female Wears contact lenses Anxiety Alcohol use Heartburn Vapes nicotine containing substance Endometrial polyp Abnormal uterine bleeding (AUB) Home Medications ?Medication ?Instructions ?Recorded ?Last Taken ?Type omeprazole 20 mg tablet,delayed 20 mg PO DAILY 4 02/16/24 08:00 History release 20 mg multivitamin no.47-iron fum 27 1 cap PO DAILY #30 caps 12/15/23 02/16/24 12:00 Rx mg-folate no.1 1 mg-dha 300 mg 1 cap capsule (PNV-DHA) blood sugar diagnostic (Blood #50 ea 02/26/24 Unknown Rx Glucose Test strips) blood-glucose meter #1 ea 02/26/24 Unknown Rx lancets 30 gauge (Droplet Lancets) #200 02/26/24 Un known Rx flash glucose scanning reader #1 02/28/24 Unknown R x (FreeStyle Lexi 2 [place]) flash glucose sensor (FreeStyle #1 ea 02/28/24 Unknown Rx Lexi 2 Sensor kit) PNV no.151-iron 27 mg-folic 800 1 cap PO DAILY 04/11/2 5 Unknown History mcg-omega3 260 qr-xvz-vqb-fish capsule ( Multi-DHA (with vitamin K)) cabergoline 0.5 mg tablet 0.5 mg PO DAILY 10/11/24 Unk nown History cephalexin 500 mg capsule 500 mg PO BID 10/11/24 Unkno wn History cholecalciferol (vitamin D3) 50 2,000 unit PO DAILY Unknown History mcg (2,000 unit) capsule (D3-2000) metformin 750 mg tablet,extended 750 mg PO DAILY 10/11 Unknown History release 24 hr phenazopyridine 200 mg tablet 200 mg PO BID 10/11/24 U nknown History (Pyridium) prednisone 10 mg tablet 10 mg PO BID 10/11/24 Unknow n History Allergy/AdvReac Type Severity Reaction Status Date / Time Latex, Natural Rubber Allergy Intermediate Other Verified 10/11/24 20:55 azithromycin (From Zithromax) Allergy JOHN Verified 10/11/24 20:55 VIJI'S SYNDROME venlafaxine Allergy Other Verified 10/11/24 20:55 Family History Mother Diabetes Uncle Diabetes Grandmother Diabetes Surgical History [place] teeth extracted History of hysteroscopy Status post laparoscopy S/P D&C (status post dilation and curettage) Hx of lumpectomy History of tonsillectomy and adenoidectomy Social History adopted: No household members: spouse number of children: 0 current occupational status: employed current occupation: [employer] current occupational exposures/hazards: No pets and animals: Yes (Avoid litterbox) pets and animals: cat(s) and dog(s) history of recent travel: Yes ([facility]) out of state: Yes out of country: No sexually active: Yes Smoking Status: Former smoker Electronic Cigarette Use: with nicotine alcohol intake: never substance use type: does not use well-balanced diet: daily or most days caffeine: No eating out: 1-3 times/week during the past year weight has: increased > 10 lbs what type of physical activity do you participate in: none jessica/yazdanism: Mandaen seatbelt use: always do you feel safe at home: Yes additional social history: - Andrea Woods ROS ROS ED Review of Systems ROS Unobtainable: other Constitutional Constitutional ED: Reports lethargy; Denies chills, fever(s), sweats or weight loss Eyes Eyes: Denies blurry vision, change in vision or diplopia ENT ENT ED: Denies rhinorrhea or sore throat Cardiovascular Cardiovascular: Reports chest pain; Denies orthopnea or racing heartbeat Respiratory/Chest Respiratory/Chest: Reports dyspnea and dyspnea on exertion; Denies cough, orthopnea or sputum Gastrointestinal Gastrointestinal: Reports abdominal pain; Denies diarrhea, nausea or vomiting Genitourinary Genitourinary ED: Denies dysuria, hematuria or urinary frequency Musculoskeletal Musculoskeletal: Denies arthralgias, back pain, myalgias or neck pain Integumentary Denies abscess, Abrasions or rash Neurologic Neurologic: Denies headache(s) or weakness Psychiatric Psychiatric: Denies anxiety, depression or suicidal thoughts Endocrine Endocrinology: Denies polydipsia, polyphagia or polyuria Hematologic/Lymphatic Hematologic/Lymphatic: Denies easy bleeding, easy bruising or lymphadenopathy Allergic/Immunologic Allergic/Immunologic ED: Denies mouth swelling, tongue swelling or urticaria EXAM Physical Exam Const Vital Signs: 10/11/24 20:53 10/11/24 21:39 10/11/24 22:53 Temperature 98.2 F Temperature Source Oral Pulse Rate 103 H 98 Respiratory Rate 18 23 H Respiratory Effort Short of Breath Respiratory Pattern Tachypnea Blood Pressure 119/88 H 124/89 H Blood Pressure Mean 98 100 Pulse Ox 100 95 Oxygen Delivery Method Room Air Room Air Room Air Positive well nourished and well developed General Appearance ED: well developed and NAD HEENT Reports TM's clear and moist mucous membranes normocephalic and atraumatic; Negative for trauma or tenderness Tympanic Membrane ED: Yes TM's clear Eyes PERRL and EOMs intact bilaterally General Eye ED: Negative for pale conjunctiva or scleral icterus Neck no lymphadenopathy, supple and no JVD General: Negative for tenderness Chest Wall inspection of chest normal and palpation of chest normal Chest: Negative for tenderness Resp normal respiratory effort and clear to auscultation bilaterally Effort and Inspection: Negative for respiratory distress or pain with movement Auscultation: Negative for rhonchi, wheezes or diminished lung sounds Cardio regular rate, regular rhythm, S1 normal heart sound, S2 normal heart sound and no murmurs Peripheral Pulses: pulses 2+ throughout GI normal to inspection, nondistended, normoactive bowel sounds, soft to palpation,non-distended and no masses GI Narrative: Diffuse tenderness palpation. There is no rebound, rigidity, or peritoneal signs. No mass palpated. Back/Spine no CVA tenderness and no thoracic nor lumbar tenderness Extremity normal to inspection General Extremety ED: Negative for edema General Extremity: Negative for edema Neuro oriented x3, CN's II-XII intact bilaterally, no sensory deficits noted and gait normal Sensorium / Orientation: awake, alert, oriented to person, oriented to place andoriented to time Motor Exam: strength 5/5 throughout and strength abnormal Psych mental status grossly normal Skin no rashes or lesions noted and no wounds MDM MDM MDM Narrative Medical decision making narrative: Patient presents to the emergency department with severe abdominal pain and difficulty voiding urine. Complains of painful respirations. CBC with differential, 22.5 with hemoglobin 7.6 and platelet count of 321. Chemistries unremarkable. BUN 10 creatinine 0.58. Serum hCG was negative. Urinalysis pos itive for nitrites however no leukocyte esterase and no WBCs at rare bacteria. CT scan of the abdomen pelvis as well as CT scan of the chest with IVcontrast obtained. No evidence for PE noted on CT chest. She had some ectasia of the main pulmonary artery which can be seen with pulmonary hypertension. Patient also had markedly enlarged ovaries with numerous ovarian cyst and moderate volume ascitescompatible with ovarian hyperstimulation syndrome. I discussed case with Dr. Velarde who knows the patient well. I was asked to transfer patient to tertiary care center at [facility] for definitive treatment. Discussed case with Dr. [facility]arrubias at [facility] who accepted transfer ofpatient to their facility. While in department she was medicated with Dilaudid and Zofran. Patient also had a [place] catheter placed and had 800 cc of urine obtained. Lab Data Attestation: I reviewed the patient's lab results. Labs: Laboratory Results - last 24 hr 10/11/24 10/11/24 21:20 22:56 WBC 22.5 H RBC 3.85 L Hgb 11.6 L Hct 34.0 L MCV 88.3 MCH 30.1 MCHC 34.1 RDW Std Deviation 41.7 RDW Coeff of Lizbet 12.9 Plt Count 321 MPV 9.2 Immature Gran % (Auto) 0.600 Neut % (Auto) 87.1 H Lymph % (Auto) 8.2 L [place] % (Auto) 4.0 Eos % (Auto) 0.0 Baso % (Auto) 0.1 Absolute Neuts (auto) 19.6 H Absolute Lymphs (auto) 1.84 Nucleated RBC % 0 Sodium 136 Potassium 4.1 Chloride 102 Carbon Dioxide 21.9 Anion Gap 12 BUN 10 Creatinine 0.58 L Estim Creat Clear Calc 147.18 Est GFR (MDRD) Non-Af 127 BUN/Creatinine Ratio 17.7 Glucose 139 H Calcium 9.1 Serum , Qual NEGATIVE Urine Color Yellow Urine Clarity Clear Urine pH 7.0 Ur Specific [place] 1.010 Urine Protein 30 H Urine Glucose (UA) Normal Urine Ketones Negative Urine Occult Blood 150 H Urine Nitrite Positive H Urine Bilirubin 1 H Urine Urobilinogen 4 H Ur Leukocyte Esterase Negative Urine RBC 0 SEEN Urine WBC 0 SEEN Ur Squamous Epith Cells 0 SEEN Urine Bacteria RARE Urine Mucus 0 SEEN Radiography Diagnostic Testing: Clinical Impression(s) from Imaging Studies Chest/Abdomen/Pelvis CTA 10/11/24 21:08 IMPRESSION: CTA chest: 1. No traumatic thoracic aortic aneurysm or mediastinal hematoma. 2. Ectasia of the main pulmonary artery, which can be seen with pulmonary hypertension. CTA abdomen/pelvis: 1. No traumatic abdominal aortic injury or retroperitoneal hematoma. 2. Markedly enlarged ovaries with numerous ovarian cysts and moderate volume ascites, compatible with ovarian hyperstimulation syndrome. Reading [facility] Discharge Plan Triage Chief Complaint: Shortness of Breath Other Complaint: Abd Pain ED Provider: Fern Marroquin Dx/Rx/DC Orders Clinical Impression: Abdominal pain, Ovarian hyperstimulation syndrome, Leukocytosis, Acute urinary retention Prescriptions: No Action omeprazole 20 mg tablet,delayed release (DR/EC) 20 mg PO DAILY (DME) FreeStyle Lexi 2 [place] Misc See Rx Instructions .Route Qty: 1 0RF Rx Instructions: As directed (DME) FreeStyle Lexi 2 Sensor Kit See Rx Instructions .Route Qty: 1 0RF Rx Instructions: As directed cholecalciferol (vitamin D3) [D3-2000] 50 mcg (2,000 unit) capsule 2,000 unit PO DAILY cephalexin 500 mg capsule 500 mg PO BID phenazopyridine [Pyridium] 200 mg tablet 200 mg PO BID prednisone 10 mg tablet 10 mg PO BID cabergoline 0.5 mg tablet 0.5 mg PO DAILY metformin 750 mg tablet extended release 24 hr 750 mg PO DAILY Multi-DHA(with vit K) 27 mg iron-800 mcg-260 mg capsule 1 cap PO DAILY PNV-DHA 27 mg iron-1 mg -300 mg capsule 1 cap PO DAILY Qty: 30 12RF (DME) blood-glucose meter Misc See Rx Instructions .ROUTE .MEDSUPPLY Qty: 1 0RF Rx Instructions: As directed (DME) Blood Glucose Test Strip See Rx Instructions .ROUTE .MEDSUPPLY Qty: 50 6RF Rx Instructions: Check blood sugars Fasting and 2 hours after breakfast, lunch, and dinner. (DME) lancets [Droplet Lancets] 30 gauge misc See Rx Instructions .ROUTE .MEDSUPPLY Qty: 200 2RF Rx Instructions: Check blood sugars fasting and 2 hours after breakfast, lunch, and supper. Primary Care Provider: Marco Melvin Referrals: Marco Melvin PA [Primary Care Provider] - Print Language: Wallisian Disposition Disposition: DC/Tx to Another Type of HCF What to do if you have Problems For any increased pain, shortness of breath, bleeding, nausea or vomiting, chestpain, or any unexpected problems, contact your Primary Care Provider. Call [facility] ([phone]) or report tothe closest Emergency Room. Call 911 if necessary. 10/12/24 0006 Cosigner Signature (if applicable): CC: CHERYL Samano ~ Signed [facility]04-11-2025 Radiology Diagnostic study note [facility] Imaging Services [address] [place], [place] [id number] CTA Chst, Abd, Pel W and/or WO MR#: [id number] Acct: [id number] Name: JOSE EDWARD Rep #: [id number] : 1995 F 29 From: Afia Francis MD PCP: CHERYL Samano Status: REG ER Study:CTA Chst, Abd, Pel W and/or WO Date of Exam: 10/11/24 Exam# [id number] Ordering Dr: Delma Marroquin DO PROCEDURE: CTA CHST, ABD, PEL W AND/OR WO 10/11/2024 REASON FOR EXAM: CHEST, ABDOMEN PAIN AFTER EGG RETRIEVAL TODAY. Patient reports bladder punctureduring procedure. TECHNIQUE: CTA imaging of the chest, abdomen and pelvis without and with intravenous contrast. Coronal and Sagittal reconstruction series were provided. 3D, 3D post processing, 3D reconstructions, Maximum intensity projection (MIPs) Volume rendering and Shaded surface rendering was provided. CONTRAST: Isovue 370 VOLUME: 100mL One or more dose reduction techniques were used (e.g., Automated exposure control, adjustment of the mA and/or kV according to patient size, use of iterative reconstruction technique). RADIATION DOSE SUMMARY: CTDlvol: 35 mGy DLP: 1200 mGycm COMPARISON: MRI pelvis 08/15/2024. FINDINGS: CTA CHEST: Hardware: None. Lymph nodes: No axillary, mediastinal or hilar lymphadenopathy. Heart and Vasculature: The heart is normal in size without pericardial effusion. Mild dilation of the main pulmonary artery, which can be seen with pulmonary hypertension. No traumatic thoracic aortic aneurysm or mediastinalhematoma. Lungs and Airways: The central airways are patent. Low lung volumes bilaterally. Bibasilar atelectasis. No suspicious pulmonary nodule. No pleural effusion or pneumothorax. Bones: No aggressive osseous lesions. CTA ABDOMEN/PELVIS: Liver: The liver is normal in size without arterially enhancing mass. No biliary ductal dilation. Gallbladder: No radiopaque stones within the gallbladder. Spleen: Normal size. Pancreas: Unremarkable. Adrenals: No adrenal mass. Kidneys: Tiny nonobstructing right lower pole renal calculus. No hydronephrosis. Bladder: Distended and unremarkable. Reproductive Organs: Markedly enlarged ovaries with numerous ovarian cysts. Theuterus is compresseddue to adjacent ovaries, however is grossly unremarkable. Bowel: Moderately distended stomach. The small and large bowel loops are normalin caliber. Moderateascites throughout the abdomen and pelvis. No pneumoperitoneum. Normal appendix. Lymph nodes: Prominent mesenteric nodes, likely reactive. Vasculature: The abdominal aorta is normal in caliber. No traumatic abdominal aortic injury or retroperitoneal hematoma. The origins of the celiac, SMA and SHEYLA are widely patent. The single bilateral renal arteries are widely patent. The bilateral common iliac arteries are widely patent without aneurysmal dilation. Bones: No aggressive osseous lesions. CT/CTA Chst, Abd, Pel W and/or WO IMPRESSION: CTA chest: 1. No traumatic thoracic aortic aneurysm or mediastinal hematoma. 2. Ectasia of the main pulmonary artery, which can be seen with pulmonary hypertension. CTA abdomen/pelvis: 1. No traumatic abdominal aortic injury or retroperitoneal hematoma. 2. Markedly enlarged ovaries with numerous ovarian cysts and moderate volume ascites, compatible with ovarian hyperstimulation syndrome. Reading Location: [id number] CC: Dr. Fern Marroquin DO; CHERYL Samano ~ Barge Pilot: Signed [facility]04-11-2025 Discharge summary Author Fern Marroquin [facility] Note Date/Time October 12, 2024 12: 06am [facility] Medical Records Department [address] [place] [address] Emergency Department Summary 10/11/24 MR#: [id number] Acct: [id number] Name: JOSE EDWARD Rep #:[id number] : 1995 29 From: Fern Marroquin DO PCP: CHERYL Samano Status:REG ER Location: ED HPI History of Present Illness Chief Complaint: Shortness of Breath Detail of Chief Complaint: Shortness of breath and abdominal pain Informant: patient Narrative Narrative: Patient presents to the emergency department complaint shortness of breath and abdominal pain that started this morning. Patient states that she had driven [facility] this morning to have egg retrieval at a fertility clinic. She states that they went in through the vagina and they had to puncture her bladderto get some of the eggs. Patient complaining of hard time emptying her bladder. She complains of abdominal pain as well as pain in her chest with deep breath and feels short of breath. Patient denies any fever. Patient states that she was started on an antibiotic and given something for pain but it is not helping her pain. Patient has history of PCOS. No prior history of PE or DVT [facility] Medical History Abnormal uterine bleeding Conceived by in vitro fertilization Supervision of high-risk Decreased movement False labor before 37 completed weeks of gestation premature rupture of membranes (PPROM) with unknown onset of labor Genetic testing of female Wears contact lenses Anxiety Alcohol use Heartburn Vapes nicotine containing substance Endometrial polyp Abnormal uterine bleeding (AUB) Home Medications ?Medication ?Instructions ?Recorded ?Last Taken ?Type omeprazole 20 mg tablet,delayed 20 mg PO DAILY 4 02/16/24 08:00 History release 20 mg multivitamin no.47-iron fum 27 1 cap PO DAILY #30 caps 12/15/23 02/16/24 12:00 Rx mg-folate no.1 1 mg-dha 300 mg 1 cap capsule (PNV-DHA) blood sugar diagnostic (Blood #50 ea 02/26/24 Unknown Rx Glucose Test strips) blood-glucose meter #1 ea 02/26/24 Unknown Rx lancets 30 gauge (Droplet Lancets) #200 ea 02/26/24 Un known Rx flash glucose scanning reader #1 ea 02/28/24 Unknown R x (FreeStyle Lexi 2 [place]) flash glucose sensor (FreeStyle #1 ea 02/28/24 Unknown Rx Lexi 2 Sensor kit) PNV no.151-iron 27 mg-folic 800 1 cap PO DAILY 5 Unknown History mcg-omega3 260 hy-jwg-hoy-fish capsule ( Multi-DHA (with vitamin K)) cabergoline 0.5 mg tablet 0.5 mg PO DAILY 10/11/24 Unk nown History cephalexin 500 mg capsule 500 mg PO BID 10/11/24 Unkno wn History cholecalciferol (vitamin D3) 50 2,000 unit PO DAILY Unknown History mcg (2,000 unit) capsule (D3-2000) metformin 750 mg tablet,extended 750 mg PO DAILY 10/11 Unknown History release 24 hr phenazopyridine 200 mg tablet 200 mg PO BID 10/11/24 U nknown History (Pyridium) prednisone 10 mg tablet 10 mg PO BID 10/11/24 Unknow n History Allergy/AdvReac Type Severity Reaction Status Date / Time Latex, Natural Rubber Allergy Intermediate Other Verified 10/11/24 20:55 azithromycin (From Zithromax) Allergy JOHN Verified 10/11/24 20:55 VIJI'S SYNDROME venlafaxine Allergy Other Verified 10/11/24 20:55 Family History Mother Diabetes Uncle Diabetes Grandmother Diabetes Surgical History [place] teeth extracted History of hysteroscopy Status post laparoscopy S/P D&C (status post dilation and curettage) Hx of lumpectomy History of tonsillectomy and adenoidectomy Social History adopted: No household members: spouse number of children: 0 current occupational status: employed current occupation: [employer] current occupational exposures/hazards: No pets and animals: Yes (Avoid litterbox) pets and animals: cat(s) and dog(s) history of recent travel: Yes ([facility]) out of state: Yes out of country: No sexually active: Yes Smoking Status: Former smoker Electronic Cigarette Use: with nicotine alcohol intake: never substance use type: does not use well-balanced diet: daily or most days caffeine: No eating out: 1-3 times/week during the past year weight has: increased > 10 lbs what type of physical activity do you participate in: none jessica/yazdanism: Mandaen seatbelt use: always do you feel safe at home: Yes additional social history: - Rene- Chuck ROS ROS ED Review of Systems ROS Unobtainable: other Constitutional Constitutional ED: Reports lethargy; Denies chills, fever(s), sweats or weight loss Eyes Eyes: Denies blurry vision, change in vision or diplopia ENT ENT ED: Denies rhinorrhea or sore throat Cardiovascular Cardiovascular: Reports chest pain; Denies orthopnea or racing heartbeat Respiratory/Chest Respiratory/Chest: Reports dyspnea and dyspnea on exertion; Denies cough, orthopnea or sputum Gastrointestinal Gastrointestinal: Reports abdominal pain; Denies diarrhea, nausea or vomiting Genitourinary Genitourinary ED: Denies dysuria, hematuria or urinary frequency Musculoskeletal Musculoskeletal: Denies arthralgias, back pain, myalgias or neck pain Integumentary Denies abscess, Abrasions or rash Neurologic Neurologic: Denies headache(s) or weakness Psychiatric Psychiatric: Denies anxiety, depression or suicidal thoughts Endocrine Endocrinology: Denies polydipsia, polyphagia or polyuria Hematologic/Lymphatic Hematologic/Lymphatic: Denies easy bleeding, easy bruising or lymphadenopathy Allergic/Immunologic Allergic/Immunologic ED: Denies mouth swelling, tongue swelling or urticaria EXAM Physical Exam Const Vital Signs: 10/11/24 20:53 10/11/24 21:39 10/11/24 22:53 Temperature 98.2 F Temperature Source Oral Pulse Rate 103 H 98 Respiratory Rate 18 23 H Respiratory Effort Short of Breath Respiratory Pattern Tachypnea Blood Pressure 119/88 H 124/89 H Blood Pressure Mean 98 100 Pulse Ox 100 95 Oxygen Delivery Method Room Air Room Air Room Air Positive well nourished and well developed General Appearance ED: well developed and NAD HEENT Reports TM's clear and moist mucous membranes normocephalic and atraumatic; Negative for trauma or tenderness Tympanic Membrane ED: Yes TM's clear Eyes PERRL and EOMs intact bilaterally General Eye ED: Negative for pale conjunctiva or scleral icterus Neck no lymphadenopathy, supple and no JVD General: Negative for tenderness Chest Wall inspection of chest normal and palpation of chest normal Chest: Negative for tenderness Resp normal respiratory effort and clear to auscultation bilaterally Effort and Inspection: Negative for respiratory distress or pain with movement Auscultation: Negative for rhonchi, wheezes or diminished lung sounds Cardio regular rate, regular rhythm, S1 normal heart sound, S2 normal heart sound and no murmurs Peripheral Pulses: pulses 2+ throughout GI normal to inspection, nondistended, normoactive bowel sounds, soft to palpation,non-distended and no masses GI Narrative: Diffuse tenderness palpation. There is no rebound, rigidity, or peritoneal signs. No mass palpated. Back/Spine no CVA tenderness and no thoracic nor lumbar tenderness Extremity normal to inspection General Extremety ED: Negative for edema General Extremity: Negative for edema Neuro oriented x3, CN's II-XII intact bilaterally, no sensory deficits noted and gait normal Sensorium / Orientation: awake, alert, oriented to person, oriented to place andoriented to time Motor Exam: strength 5/5 throughout and strength abnormal Psych mental status grossly normal Skin no rashes or lesions noted and no wounds MDM MDM MDM Narrative Medical decision making narrative: Patient presents to the emergency department with severe abdominal pain and difficulty voiding urine. Complains of painful respirations. CBC with differential, 22.5 with hemoglobin 7.6 and platelet count of 321. Chemistries unremarkable. BUN 10 creatinine 0.58. Serum hCG was negative. Urinalysis positive for nitrites however no leukocyte esterase and no WBCs at rare bacteria. CT scan of the abdomen pelvis as well as CT scan of the chest with IVcontrast obtained. No evidence for PE noted on CT chest. She had some ectasia of the main pulmonary artery which can be seen with pulmonary hypertension. Patient also had markedly enlarged ovaries with numerous ovarian cyst and moderate volume ascites compatible with ovarian hyperstimulation syndrome. I discussed case with Dr. Velarde who knows the patient well. I was asked to transfer patient to tertiary care center at [facility] for definitive treatment. Discussed case with Dr. Covarrubias at [facility] who accepted transfer of patient to their facility. While in department she was medicated with Dilaudid and Zofran. Patient also had a West catheter placed and had 800 cc of urine obtained. Lab Data Attestation: I reviewed the patient's lab results. Labs: Laboratory Results - last 24 hr 10/11/24 10/11/24 21:20 22:56 WBC 22.5 H RBC 3.85 L Hgb 11.6 L Hct 34.0 L MCV 88.3 MCH 30.1 MCHC 34.1 RDW Std Deviation 41.7 RDW Coeff of Lizbet 12.9 Plt Count 321 MPV 9.2 Immature Gran % (Auto) 0.600 Neut % (Auto) 87.1 H Lymph % (Auto) 8.2 L [place] % (Auto) 4.0 Eos % (Auto) 0.0 Baso % (Auto) 0.1 Absolute Neuts (auto) 19.6 H Absolute Lymphs (auto) 1.84 Nucleated RBC % 0 Sodium 136 Potassium 4.1 Chloride 102 Carbon Dioxide 21.9 Anion Gap 12 BUN 10 Creatinine 0.58 L Estim Creat Clear Calc 147.18 Est GFR (MDRD) Non-Af 127 BUN/Creatinine Ratio 17.7 Glucose 139 H Calcium 9.1 Serum , Qual NEGATIVE Urine Color Yellow Urine Clarity Clear Urine pH 7.0 Ur Specific [place] 1.010 Urine Protein 30 H Urine Glucose (UA) Normal Urine Ketones Negative Urine Occult Blood 150 H Urine Nitrite Positive H Urine Bilirubin 1 H Urine Urobilinogen 4 H Ur Leukocyte Esterase Negative Urine RBC 0 SEEN Urine WBC 0 SEEN Ur Squamous Epith Cells 0 SEEN Urine Bacteria RARE Urine Mucus 0 SEEN Radiography Diagnostic Testing: Clinical Impression(s) from Imaging Studies Chest/Abdomen/Pelvis CTA 10/11/24 21:08 IMPRESSION: CTA chest: 1. No traumatic thoracic aortic aneurysm or mediastinal hematoma. 2. Ectasia of the main pulmonary artery, which can be seen with pulmonary hypertension. CTA abdomen/pelvis: 1. No traumatic abdominal aortic injury or retroperitoneal hematoma. 2. Markedly enlarged ovaries with numerous ovarian cysts and moderate volume ascites, compatible with ovarian hyperstimulation syndrome. Reading Location: [facility] Discharge Plan Triage Chief Complaint: Shortness of Breath Other Complaint: Abd Pain ED Provider: Fern Marroquin Dx/Rx/DC Orders Clinical Impression: Abdominal pain, Ovarian hyperstimulation syndrome, Leukocytosis, Acute urinary retention Prescriptions: No Action omeprazole 20 mg tablet,delayed release (DR/EC) 20 mg PO DAILY (DME) FreeStyle Lexi 2 [place] Misc See Rx Instructions .Route Qty: 1 0RF Rx Instructions: As directed (DME) FreeStyle Lexi 2 Sensor Kit See Rx Instructions .Route Qty: 1 0RF Rx Instructions: As directed cholecalciferol (vitamin D3) [D3-2000] 50 mcg (2,000 unit) capsule 2,000 unit PO DAILY cephalexin 500 mg capsule 500 mg PO BID phenazopyridine [Pyridium] 200 mg tablet 200 mg PO BID prednisone 10 mg tablet 10 mg PO BID cabergoline 0.5 mg tablet 0.5 mg PO DAILY metformin 750 mg tablet extended release 24 hr 750 mg PO DAILY Multi-DHA(with vit K) 27 mg iron-800 mcg-260 mg capsule 1 cap PO DAILY PNV-DHA 27 mg iron-1 mg -300 mg capsule 1 cap PO DAILY Qty: 30 12RF (DME) blood-glucose meter Misc See Rx Instructions .ROUTE .MEDSUPPLY Qty: 1 0RF Rx Instructions: As directed (DME) Blood Glucose Test Strip See Rx Instructions .ROUTE .MEDSUPPLY Qty: 50 6RF Rx Instructions: Check blood sugars Fasting and 2 hours after breakfast, lunch, and dinner. (DME) lancets [Droplet Lancets] 30 gauge misc See Rx Instructions .ROUTE .MEDSUPPLY Qty: 200 2RF Rx Instructions: Check blood sugars fasting and 2 hours after breakfast, lunch, and supper. Primary Care Provider: Marco Melvin Referrals: Marco Melvin PA [Primary Care Provider] - Print Language: Wallisian Disposition Disposition: DC/Tx to Another Type of HCF What to do if you have Problems For any increased pain, shortness of breath, bleeding, nausea or vomiting, chestpain, or any unexpected problems, contact your Primary Care Provider. Call [facility] ([phone]) or report to the closest Emergency Room. Call 911 if necessary. 10/12/246 <Electronically signed by Fern Marroquin DO> Cosigner Signature (if applicable): CC: CHERYL Samano ~ Signed [facility] Work Phone: 1(129) 739-244912-18-2024 Evaluation note* Diagnosis Onset Date Resolution Status Admit Date Amenorrhea acute June 19, 2024 9:36am Pelvic floor dysfunction acute June 19, 2024 9:36am Vaginal discharge acute Decembe r 2023 9:36am [facility] Work Phone: 1(115) 611-677309-15-2024 Nurse Note* Maryellen Posey RN - 03/17/2024 6:40 PM EDT Mom discharged mom in good condition with all belongings to a private residence, accompanied by . All discharge instructions reviewed with patient who verbalizes understanding and denies further questions.[facility] out at 1840 [id number]* Maryellen Posey RN - 03/17/2024 6:40 PM EDT Mom discharged mom in good condition with all belongings to a private residence, accompanied by . All discharge instructions reviewed with patient who verbalizes understanding and denies further questions.Mom walked out at 1840 * Yaritza Sanford RN - 03/15/2024 12:04 AM EDT At 2320, this RN secure messaged the OB residents to ask if they would like a blood sugar tonight since patient's blood sugar was 249 after dinner and received 4 units of Humalog around 1900. Dr. Duarte stated that was a good idea to check patient's blood sugar since her blood sugar was high. Informed Dr. Duarte that patient is currently down in NICU, but should be coming back up shortly and will obtain blood sugar then. At 2355, notified Dr. Duarte that patient's blood sugar was 217, and that patient would like to eat a slice of pizza tonight before bed. Dr. Duarte stated patient should not eat any carbohydrates until patient's blood sugar is less than 200. She also changed patient's diet order to carb control. This RN spoke again with patient, and expressed the doctors concerns about not getting an accurate fasting blood sugar in the morning. Patient receptive, and stated she will not eat anything tonight.Patient voiced that she was drinking body armor and stated she will not drink that anymore, insteadshe will just drink water. Informed patient that Dr. Duarte put in for 4 units of Humalog. Patient voiced understanding and agreeable. * Yara Chinchilla RN - 03/14/2024 8:27 AM EDT Pt reports spotting on her pad and upon assessing urine found a few red specks in her urine * Venessa Gold RN - 03/14/2024 6:[address] Nguyen made aware that pt was just up to restroom and had a quarter size mucousy, bloody clot into toilet. No active bleeding noted. No change to plan of care at this time * Venessa Gold RN - 03/14/2024 4:53 AM EDT Pt made aware that order for nothing to eat or drink has been ordered by Dr. Duarte. She states understanding. I made her aware that I will be starting IV fluids also. * Raegan Estrada RN - 03/07/2024 4:47 AM EDT RN called to bedside at 0435, pt reporting feeling increased leakage of fluid. Denies cramping, contractions, or pain, but does state feeling pressure which has become more constant. Dr Boles aware. Pt instructed to notify RN immediately if pressure intensifies or if cramping / contractions occur. documented in this [facility]09-15-2024 [facility] Discharge Summary Admission on 03/06/2024 4:35 PM Hospital course: at 29w4d admitted for Anhydramnios/suspected PPROM. Pt is GDMA2. Pt received BMZ, latency Abx, and magnesium sulfate. At 30w5d, PPROM and VB noted, leading to pt laboring. Fetus was Breech. By PLTCS, a boy was delivered at 30w5d [see Notes for details]. course & complications: - Uncomplicated Consults: - Neonatology: prematurity Surgical Operations & Procedures: Date of delivery: 03/14/2024 Procedure: : Low Transverse Anesthesia: Spinal anesthesia and TAP block: Routine Laceration(s): n/a Delivery Complications: none EBL: 400 mL Pertinent Findings & Procedures: Information for the patient's : Marcus Edward [[id number]] male 3 lb 6.7 oz (1.55 kg) Apgars: Information for the patient's : Marcus Edward [[id number]] : : Boy, Blood Type/Rh: O Antibody Screen: No results found for: LABANTI Rubella: No results found for: RUBELLAIGG Contraception: no method : pumping VTE Prophylaxis: Prophylactic Dosing until Discharge Meds at Discharge: Medication List START taking these medications DSS 100 MG capsule Take 1 capsule (100 mg) by mouth 2 times daily as needed for constipation. ferrous sulfate 325 (65 Fe) MG tablet Take 1 tablet (325 mg) by mouth in the morning and 1 tablet (325 mg) in the evening. Take with meals. ibuprofen 600 MG tablet Take 1 tablet (600 mg) by mouth in the morning and 1 tablet (600 mg) at noon and 1 tablet (600 mg) in the evening and 1 tablet (600 mg) before bedtime. Do all this for 23 days. oxyCODONE 5 MG immediate release tablet Commonly known as: Roxicodone Take 1 tablet (5 mg) by mouth every 6 hours as needed for moderate pain (4-6) for up to 5 days. CONTINUE taking these medications 1 PO STOP taking these medications BENADRYL ALLERGY PO loratadine 5 MG/5ML solution solution Commonly known as: Claritin naltrexone 50 MG tablet Commonly known as: Depade omeprazole [address] capsule Commonly known as: PriLOSEC Where to Get Your Medications These medications were sent to [facility] [address] [place] [address] Hours: Monday to Monday 10 am to 6 pm DSS 100 MG capsule ferrous sulfate 325 (65 Fe) MG tablet ibuprofen 600 MG tablet oxyCODONE 5 MG immediate release tablet Activity: Activity as tolerated Diet: Regular diet Follow-up Appointments: - visit - Incision check - 2-hr GTT needed If a patient meets criteria for hypertension, make sure the following are done prior to discharge: [] Order a blood pressure kit through [facility] (or the patient's own pharmacy on the weekend) [] [facility] [] Place an office visit or telephone encounter for a 3-to-5-day blood pressure check. [] Include blood pressure dot phrase (.sumobhypertension) in discharge instructions [x] Check here if the patient does NOT meet criteria for hypertension Condition on discharge: Stable Discharge to: Home/self care Discharge date: 03/17/24 Discharge Dx: S/p PLTCS PTL/PTD PPROM/anhydramnios GDMA2 Anhydramnios in third trimester, single or unspecified fetus [O41.03X0] Patient Active Problem List Diagnosis Anhydramnios in third trimester, single or unspecified fetus Comments: Home care, Follow-up care and control were reviewed. Signs and symptoms of mastitis and Depression were reviewed. The patient is to notify her physician if any of these occur.[facility] [id number] Hospital course Narrative* Wendi Aguilar MD - 03/17/2024 11:06 AM EDT Images from the original note were not included. Department of Obstetrics and Gynecology Delivery Discharge Summary Admission on 03/06/2024 4:35 PM Hospital course: at 29w4d admitted for Anhydramnios/suspected PPROM. Pt is GDMA2. Pt received BMZ, latency Abx, and magnesium sulfate. At 30w5d, PPROM and VB noted, leading to pt laboring. Fetus was Breech. By PLTCS, a boy was delivered at 30w5d [see Notes for details]. course & complications: - Uncomplicated Consults: - Neonatology: prematurity Surgical Operations & Procedures: Date of delivery: 03/14/2024 Procedure: : Low Transverse Anesthesia: Spinal anesthesia and TAP block: Routine Laceration(s): n/a Delivery Complications: none EBL: 400 mL Pertinent Findings & Procedures: Information for the patient's : Marcus Edward [[id number]] male 3 lb 6.7 oz (1.55 kg) Apgars: Information for the patient's : Marcus Edward [[id number]] : : Boy, Blood Type/Rh: O Antibody Screen: No results found for: LABANTI Rubella: No results found for: RUBELLAIGG Contraception: no method : pumping VTE Prophylaxis: Prophylactic Dosing until Discharge Meds at Discharge: Medication List START taking these medications DSS 100 MG capsule Take 1 capsule (100 mg) by mouth 2 times daily as needed for constipation. ferrous sulfate 325 (65 Fe) MG tablet Take 1 tablet (325 mg) by mouth in the morning and 1 tablet (325 mg) in the evening. Take with meals. ibuprofen 600 MG tablet Take 1 tablet (600 mg) by mouth in the morning and 1 tablet (600 mg) at noon and 1 tablet (600 mg) in the evening and 1 tablet (600 mg) before bedtime. Do all this for 23 days. oxyCODONE 5 MG immediate release tablet Commonly known as: Roxicodone Take 1 tablet (5 mg) by mouth every 6 hours as needed for moderate pain (4-6) for up to 5 days. CONTINUE taking these medications 1 PO STOP taking these medications BENADRYL ALLERGY PO loratadine 5 MG/5ML solution solution Commonly known as: Claritin naltrexone 50 MG tablet Commonly known as: Depade omeprazole [address] capsule Commonly known as: PriLOSEC Where to Get Your Medications These medications were sent to [facility] [address] [place], [place] [address] [address] Hours: Monday to Monday 10 am to 6 pm DSS 100 MG capsule ferrous sulfate 325 (65 Fe) MG tablet ibuprofen 600 MG tablet oxyCODONE 5 MG immediate release tablet Activity: Activity as tolerated Diet: Regular diet Follow-up Appointments: - visit - Incision check - 2-hr GTT needed If a patient meets criteria for hypertension, make sure the following are done prior to discharge: [] Order a blood pressure kit through [facility] (or the patient's own pharmacy on the weekend) [] Order the blood pressure log through [employer] [] Place an office visit or telephone encounter for a 3-to-5-day blood pressure check. [] Include blood pressure dot phrase (.sumobhypertension) in discharge instructions [x] Check here if the patient does NOT meet criteria for hypertension Condition on discharge: Stable Discharge to: Home/self care Discharge date: 03/17/24 Discharge Dx: S/p PLTCS PTL/PTD PPROM/anhydramnios GDMA2 Anhydramnios in third trimester, single or unspecified fetus [O41.03X0] Patient Active Problem List Diagnosis Anhydramnios in third trimester, single or unspecified fetus Comments: Home care, Follow-up care and control were reviewed. Signs and symptoms of mastitis and Depression were reviewed. The patient is to notify her physician if any of these occur. documented in this [facility]09-15-2024 Miscellaneous Notes* Note - Melissa Mantilla RN - 03/17/2024 8:00 AM EDT Check in with mom, pumping for 30 5/7 week in NICU. Mom is pumping 15cc per session. Observed pump session and resized her flanges to 22.5mm. Mom was given Spectra pump from [facility] technical marketing consultant. Answer mom's questions. Discharge today. * Care Coordination - IRVING Rodriguez - 03/15/2024 1:09 PM EDT Sw consult for help with housing while baby in NICU, as they live out of town. Met with her and spouse at bedside. They have started process including back ground check and think they have been approved for [facility]. Discussed that they can ask to talk to NICU Sw to finalize details. Mob hoping baby may be able to transfer baby to main campus. Sw also dicussed her and can stay at bedside. Discussed with NICU Sw who did meet with parents to assist. No further needs anticipated. OK FOR DC * Care Coordination - Amy Connor RN - 03/15/2024 12:25 PM EDT Date: 03/15/2024 Name: Jose Edward : 1995 [facility] Patient Information Primary Caregiver: Self Accompanied by/Relationship: S/O;Family Marital Status: Support System: SO/Family Mormon/Cultural Factors: none Activities of Daily Living Communication: See demographics Living Arrangements Current Residence: Private residence Lives With: S/O; Family Support System: S/O; Family Income Information Income Source: Employed Financial Resource Strain How hard is it for you to pay for the very basics like food, housing, medical care and heating? N/A Housing Stability In the last 12 months, was there a time when you did not have a steady place to sleep or slept in ashelter (including now)? No Transportation Needs Has the lack of Transportation kept you from medical appointments? No In the past 12 months, has the lack of transportation kept you from meetings, work, or from gettingthings needed for daily living? No Food Insecurity Within the past 12 months, have you worried that your food would run out before you got the money to buy more? No Stress Do you feel stress - tense, restless, nervous, or anxious, or unable to sleep at night because you mind is troubled all the time? Mood stable Referral To Financial Resources: N/A Community Resources: Admission folder given upon admission to PP Unit Social Work: N/A CLP: N/A Medical Information 28 year old admitted for anhydramnios at 29/4 weeks.PPROM GDMA2. 3 Para 0. delivery. in NICU. Discharge Plan Home or Community Resources: Admission folder given upon admission to PP unit Equipment: N/A Education Given: Discussion on the A. B. C's of safe sleep. Always place your baby on his or her back to sleep, use a firm sleep surface and your baby should not sleep in an adult bed, on a couch or chair. Keep soft objects, toys and loose bedding out of your baby's sleep area. Reviewed depression. It is common to have blues. This is a normal response to many of the hormonalchanges, stress and lack of sleep that go with raising a and physically recovering from thebirth. Don't hesitate to talk to your provider with any concerns. There are resources in your home going booklet. To help prevent germs from spreading to you and your baby, make sure everyone washes t heir hands before they handle your . Avoid crowds, and keep away from sick people, anyone who is sick with a cough or fever, including family members. Post- warning signs information reviewed with patient per nurse with discharge Additional Information: Patient is independent and has insurance. She is prepared with her baby supplies. To be discharged to home. Denies any concerns at this time. Mental Health Services: Resources in discharge folder Equipment: Developmental Delay: N/A Children's Services: N/A * Note - Melissa Mantilla RN - 03/15/2024 7:00 AM EDT Initial visit with mom. This is mom's first baby, delivered at 30 6/7 weeks. [place] ( [place] [facility] Nurse has mom set up with hospital electric pump. Mom confident in settings and cleanings. Fitted mom with 22.5 flanges as 25mm were to big, causing nippleswelling. Instructed on hand expression-assisted with collecting drops onto swabs. Breast pump use indicated for this pt. Due to: Hospital breast pump, supplies kit, swabs and colostrum collectors provided and set up for patient at the bedside. Instruction given on pump operation, settings, technique and frequency/duration. Return demonstration given by patient. Observation of pumping session and flange fitting done. Mom instructed to double pump every 2-3 hours for 8-10 times per day with at least one pump session between 12 and 6 AM. Suction to be set for comfort but recommend between 20-60%. Reassured patient that it is normal to not collect any significant amounts of breast milk in the first days of pumping, but consistent pumping is important and typically results in increased milk production. Discussed projectedamounts and daily goals. Reviewed breast massage and hand expression for increasing milk production. Reviewed colostrum collectors and swabs- how to use and collect colostrum and label swabs/syringes. Breast milk storage guidelines reviewed. Cleaning of pump parts reviewed and basin, soap and clean towels provided for this purpose. Encouraged skin to skin as soon as baby's condition is stable. Discussed plans for home electric breast pump- [facility].All questions answered. Will continue to monitor, encourage and support patient. * Significant Event - Savanah Duarte DO - 03/14/2024 6:59 PM EDT 1hr pp 249. Discussed with Dr. Mancia. Will give 4u. Savanah Duarte DO 03/14/2024 6:59 PM Came back from NICU and had eaten. Now 217. Will not eat further. Will give 4u. Advised on fasting BGT in the morning. Aware not to eat further for true fast in Am. Changed to CCD Savanah Duarte DO 03/15/2024 12:07 AM * Significant Event - Savanah Duarte DO - 03/13/2024 11:22 PM EDT Images from the original note were not included. Notified of BGT of 230. Discussed with Dr. Au and will order 6u log with meals and 6u nph nightly. Will give 6u now. Called by RN to assess patient for possible pressure. Patient reports that she feels intermittent pressure. Its not painful. In generalized belly and back. Feeling rare contractions. Denies pain. Reports she's been feeling intermittent pressure throughout admission and this is not different. SSE with pooled clear fluid. Cervix still appears visually closed.Cat I FHT. Again, patient denies contraction pain. Discussed need for NPO if that changed. Will be for magnesium sulfate if pain or concernsfor labor. Will continue to monitor closely. Savanah Duarte DO 03/13/2024 11:23 PM [place] more cramping. 1cm dilated. Reportedly was 1cm at jacey. Clear fluid. No fundal tenderness. Contractions noted 10m apart. No pain but felt the pressure. Cat I FHT . Moderate variability. Will make NPO with IVF. Will defer magnesium at this time as I do not think patient is making cervical change and is not uncomfortable. If that changes, will give bolus of magneisum sulfate for neuroprotection. Afebrile. Will advance diet in morning if no futher calls on pain. Keep in CEFM. Savanah Duarte DO 03/14/2024 4:09 AM * Care Coordination - Amy Connor RN - 03/13/2024 2:48 PM EDT Hospital day 8 at 30/4 weeks. PPROM. Voiced no needs or concerns. * Care Plan - Rosio Woodruff RN - 03/13/2024 6:37 AM EDT The patient is Moderately Stable - Low risk of patient condition declining or worsening The patient's goals for the shift include remain The clinical goals for the shift include remain afebrile * Care Plan - Rosio Woodruff RN - 03/13/2024 6:37 AM EDT The patient is Moderately Stable - Low risk of patient condition declining or worsening The patient's goals for the shift include remain The clinical goals for the shift include remain afebrile * Note - Cheryl Marinelli RN - 03/11/2024 5:00 PM EDT In to visit patient-expected with NICU admission. Reviewed importance of mothers own milk for baby and physiology of milk production. Discussed need for early and frequent hand expression and pumping. Importance of skin to skin when baby is stable. Encouraged manual expression of colostrum onto swabs, while in recovery room. Encouraged patient to ask RN for electric pump on admission to M/B unit. Discussed options for home going pump; pt has [employer] insurance. Availability of LC for NICU and reviewed. [facility] handout Your NICU Baby given and reviewed. Encouraged to watch videos from [employer] to support her goals. Resource numbers given for [facility] dept and [facility] dept. Encouraged to call with any questions / concerns. Pt receptive to my visit and education. Denies questions at this time. * Care Coordination - Amy Connor RN - 03/11/2024 4:10 PM EDT Hospital day 6 at 30/2 weeks. Anhydramnios PPROM at 30/2 weeks referral. Voiced no needs or concerns. * Care Coordination - Julianna Martinez RN - 03/08/2024 3:44 PM EDT Hospital Day 3; 29/6 weeks today; No concerns at this time; Pt states she is interested in the possibility of staying at the [facility] after delivery due to living approx. 2 hours away; patient and provided background check paperwork; will be faxed to [facility] referral line; Will consult for patient as pt would like to see prior to delivery * Care Coordination - Amy Connor RN - 03/07/2024 10:58 AM EDT Date: 03/07/2024 Name: Jose Edward : 1995 [facility] Information [place] - transport Patient Information Primary Caregiver: Self Accompanied by/Relationship: S/O;Family Marital Status: Support System: SO/Family Mormon/Cultural Factors: Activities of Daily Living Communication: See demographics Living Arrangements Current Residence: Private residence Lives With: S/O; Family Support System: S/O; Family Income Information Income Source: Employed Financial Resource Strain How hard is it for you to pay for the very basics like food, housing, medical care and heating? N/A Housing Stability In the last 12 months, was there a time when you did not have a steady place to sleep or slept in ashelter (including now)? No Transportation Needs Has the lack of Transportation kept you from medical appointments? No In the past 12 months, has the lack of transportation kept you from meetings, work, or from gettingthings needed for daily living? No Food Insecurity Within the past 12 months, have you worried that your food would run out before you got the money to buy more? No Stress Do you feel stress - tense, restless, nervous, or anxious, or unable to sleep at night because you mind is troubled all the time? Mood stable Referral To Financial Resources: N/A Community Resources: PNU folder given upon admission to PNU Unit Social Work: N/A CLP: N/A Medical Information 28 year old admitted for anhydramnios at 29/4 weeks. 3 Para 0. Suspected PROM. GDMA1. Discharge Plan Home or Community Resources: PNU Admission folder given upon admission to unit Equipment: N/A Education Given: PNU admit folder and see Education Tab Additional Information: N/A Mental Health Services: N/A Developmental Delay: N/A Children's Services: N/A documented in this [facility]09-15-2024 Obstetrics Note* Note - Melissa Mantilla RN - 03/17/2024 8:00 AM EDT Check in with mom, pumping for 30 5/7 week in NICU. Mom is pumping 15cc per session. Observed pump session and resized her flanges to 22.5mm. Mom was given Spectra pump from [facility] technical marketing consultant. Answer mom's questions. [id number] History of Present illness Narrative* Chelsie Swenson, - 03/17/2024 5:47 AM EDT Images from the original note were not included. Note- POST OPERATIVE DAY # 3 Jose Edward is a 28 y.o. who was seen & examined today. Her was complicated by: Patient Active Problem List Diagnosis Anhydramnios in third trimester, single or unspecified fetus Today she is doing well without any chief complaint. Her lochia is light. She is ambulating well. Flatus present. Bowel movement absent. Voiding spontaneously . She is tolerating solids. Pain is controlled. She denies any headache, changes in vision, SOB, RUQ pain, fevers, chills, nausea, or vomiting. Vital Signs: Vitals: 03/15/24 0803 03/15/24 2100 03/16/24 0849 03/16/242017 BP: 110/68 123/86 131/89 118/80 BP Location: Right arm Right arm Patient Position: Sitting Sitting Pulse: 70 76 88 76 Resp: 16 16 16 16 Temp: 36.6 C (97.9 F) 36.3 C (97.4 F) 36.7 C (98 F) 36.7 C (98.1 F) TempSrc: Temporal Temporal Temporal Temporal SpO2: 98% 98% 97% 98% Weight: Height: Urine Input & Output last 24hrs: No intake or output data in the 24 hours ending 03/17/24 0548 Physical Exam: General appearance: alert, well appearing, in no apparent distress Abdomen : benign non-tender, without masses or organomegaly palpable Extremities: no redness or tenderness in the calves or thighs, no edema Neurologic: alert, oriented, normal speech, no focal findings or movement disorder noted Uterus : normal size, well involuted, firm, non-tender Incision: Dermabond in place overlying incision that is well healing and well approximated without drainage or surrounding erythema Labs: Lab Results Component Value Date WBC 8.7 03/13/2024 HGB 12.6 03/15/2024 HCT 38.4 03/13/2024 MCV 88.1 03/13/2024 PLT 282 03/13/2024 O Antibody Screen: No results found for: LABANTI No results found for: RUBELLAIGG LABOR DELIVERY ??? SCD's ONLY (labor through ambulation) SCD's PLUS Prophylactic Anticoagulation until discharge SCD's PLUS Prophylactic Anticoagulation for 6 weeks SCD's PLUS Therapeutic Anticoagulation for 6 weeks Vaginal Delivery [] BMI ? 40 kg/m2 Delivery All patients Vaginal Delivery [] BMI ? 40 kg/m2 AND [] Antepartum hospitalization ? 72 hours within the past month Delivery 1 Major Risk Factor: [] BMI ? 35 kg/m2 [] Low Risk Thrombophilia [] PPH+RBCs, IR, or operation [] Infection+Antibiotics [x] Antepartum hospitalization ? 72 hours within the past month [] PMH: Sickle Cell, SLE, Cardiac Dz, Active IBD, Active Cancer, Nephrotic Syndrome OR 2 Minor Risk Factors: [] Multiple gestation [] Age > 40 [] PPH ? 1,000cc [] (+)FMH of VTE [] Smoker [] Preeclampsia [] BMI ? 40 kg/m2 AND [] Low Risk Thrombophilia OR ANY OF THE FOLLOWING: [] High Risk Thrombophilia without prior VTE [] Low Risk Thrombophilia with (+)FMH of VTE [] Any single prior VTE ANY OF THE FOLLOWING: [] Already on LMWH/UFH [] Multiple prior VTE [] High Risk Thrombophilia with prior VTE Low Risk Thrombophilia: FVL (heterozygous), Prothrombin (heterozygous), Protein C, Protein S High Risk Thrombophilia: FVL (homozygous), Prothrombin (homozygous), FVL+Prothrombin (heterozygous), Antithrombin III, APLS Assessment/Plan: Jose Edward is a 28 y.o. POD # 3 s/p PLTCS 2/2 breech presentation in active labor Care - Doing well, VSS - Post-op hemoglobin: Stable and within normal limits - Rhogam not indicated as patient is Rh positive - Male - Pumping - Contraception: Per Private Attending - Encourage ambulation and use of incentive spirometer - VTE Prophylaxis: Prophylactic Dosing until Discharge GDM - Started insulin 2/2 receiving steroids for lung maturity, last dose was on 03/14 - Dexcom in place (share code [id number]) - Discontinued meds after delivery and have been trending post-prandials - Blood sugars normalizing - AM fasting pending Disposition: Anticipate discharge today per private attending's discretion Based on my clinical assessment, this patient is safe for self discharge (does not need transport by wheelchair) if she so chooses. Provider's Name: MD Chelsie Brasher, DO 03/17/2024, 5:48 AM Associated attestation - Wendi Aguilar MD - 03/17/2024 11:06 AM EDT Hospital Care (Independent): I independently saw and evaluated the patient. I agree with the findings and plan of care as documented in the resident's note. POD#3 from pLTCS doing well. Meeting milestones. VSS. Ready for DC. They live 1.75 hours away so will stay in NICU and [facility] when a spot opens. Has a breat pump. Declines PPBC. Visit at our office in 1-2 weeks and 6 week visit with us or regular OBGYN. DC teaching done. Will need 2 hour gtt at 6 weeks. The total time spent on patient discharge today was 25 minutes. -10 minutes of the visit face to face patient care for counseling/coordination of care -15 minutes chart review and documentation * Juliana Nguyen, DO - 03/16/2024 5:43 AM EDT Images from the original note were not included. Note- POST OPERATIVE DAY # 2 Jose Edward is a 28 y.o. who was seen & examined today. Her was complicated by: Patient Active Problem List Diagnosis Anhydramnios in third trimester, single or unspecified fetus Today she is doing well without any chief complaint. Her lochia is light. She denies Headache, Chest Pain, Vision Changes, and Shortness of Breath. She is ambulating well. Flatus present. Bowel movement absent. Voiding spontaneously . She is tolerating solids. Pain is controlled yes. Vital Signs: Vitals: 03/15/24 0056 03/15/24 0506 03/15/24 0803 03/15/24 2100 BP: 106/72 114/75 110/68 123/86 BP Location: Right arm Patient Position: Sitting Pulse: 73 88 70 76 Resp: 16 18 16 16 Temp: 36.3 C (97.3 F) 36.6 C (97.8 F) 36.6 C (97.9 F) 36.3 C (97.4 F) TempSrc: Temporal Temporal Temporal Temporal SpO2: 97% 98% 98% 98% Weight: Height: Urine Input & Output last 24hrs: Intake/Output Summary (Last 24 hours) at 03/16/2024 0543 Last data filed at 03/15/2024 1805 Gross per 24 hour Intake -- Output 1050 ml Net -1050 ml Physical Exam: GENERAL APPEARANCE: alert, well appearing, in no apparent distress ABDOMEN : benign non-tender, without masses or organomegaly palpable EXTREMITIES: no redness or tenderness in the calves or thighs, no edema NEUROLOGIC: alert, oriented, normal speech, no focal findings or movement disorder noted UTERUS : normal size, well involuted, firm, non-tender Desc; incision: Dermabond overlying Labs: Lab Results Component Value Date WBC 8.7 03/13/2024 HGB 12.6 03/15/2024 HCT 38.4 03/13/2024 MCV 88.1 03/13/2024 PLT 282 03/13/2024 O Antibody Screen: No results found for: LABANTI No results found for: RUBELLAIGG LABOR DELIVERY ??? SCD's ONLY (labor through ambulation) SCD's PLUS Prophylactic Anticoagulation until discharge SCD's PLUS Prophylactic Anticoagulation for 6 weeks SCD's PLUS Therapeutic Anticoagulation for 6 weeks Vaginal Delivery [] BMI ? 40 kg/m2 Delivery All patients Vaginal Delivery [] BMI ? 40 kg/m2 AND [] Antepartum hospitalization ? 72 hours within the past month Delivery 1 Major Risk Factor: [] BMI ? 35 kg/m2 [] Low Risk Thrombophilia [] PPH+RBCs, IR, or operation [] Infection+Antibiotics [x] Antepartum hospitalization ? 72 hours within the past month [] PMH: Sickle Cell, SLE, Cardiac Dz, Active IBD, Active Cancer, Nephrotic Syndrome OR 2 Minor Risk Factors: [] Multiple gestation [] Age > 40 [] PPH ? 1,000cc [] (+)FMH of VTE [] Smoker [] Preeclampsia [] BMI ? 40 kg/m2 AND [] Low Risk Thrombophilia OR ANY OF THE FOLLOWING: [] High Risk Thrombophilia without prior VTE [] Low Risk Thrombophilia with (+)FMH of VTE [] Any single prior VTE ANY OF THE FOLLOWING: [] Already on LMWH/UFH [] Multiple prior VTE [] High Risk Thrombophilia with prior VTE Low Risk Thrombophilia: FVL (heterozygous), Prothrombin (heterozygous), Protein C, Protein S High Risk Thrombophilia: FVL (homozygous), Prothrombin (homozygous), FVL+Prothrombin (heterozygous), Antithrombin III, APLS Assessment/Plan: Jose Edward is a 28 y.o. POD # 2 s/p PLTCS 2/2 Breech Malpresentation + PPROM Care - Doing well, VSS - Male - Contraception: Per Private Attending - Encourage ambulation and use of incentive spirometer - D/C west catheter and saline lock IV on POD #1 - Postop Hb 12.6 - VTE Prophylaxis: Prophylactic Dosing until Discharge GDMA1 -Started on insulin 2/2 receiving steroids for lung maturity; lost dose 03/14 -Dexcom in place -PP Plan: DC meds and trend postprandials -BGTs overall controlled yesterday, AM fasting 98 with 1 hour 155 on 03/15, postprandial lunch 87, and postprandial dinner 97 and 102 - Continue trending at attending discretion Disposition: Continue current care Based on my clinical assessment, this patient is safe for self discharge (does not need transport by wheelchair) if she so chooses. Provider's Name: Christiano Au MD Juliana Nguyen, DO 03/16/2024, 5:43 AM Associated attestation - Wendi Aguilar MD - 03/16/2024 9:54 AM EDT Hospital Care (Independent): I independently saw and evaluated the patient. I agree with the findings and plan of care as documented in the resident's note. POD#2 from pLTCS at 30 weeks for labor and breech. Doing well. Meeting milestones. VSS. Hbg stable.GDMA1 - BS overall normalizing. Pumping for baby boy in NICU. Plan DC home tomorrow. The total time spent on patient care today was 25 minutes. -10 minutes of the visit face to face patient care for counseling/coordination of care -15 minutes chart review and documentation * Marcela Rapp PA-C - 03/15/2024 6:26 AM EDT Images from the original note were not included. Note- POST OPERATIVE DAY # 1 Jose Edward is a 28 y.o. who was seen & examined today. Her was complicated by: Patient Active Problem List Diagnosis Anhydramnios in third trimester, single or unspecified fetus Today she is doing well without any chief complaint. Her lochia is light. She denies Headache, Chest Pain, Vision Changes, and Shortness of Breath. She is ambulating well. Flatus present. Bowel movement absent. West catheter removed, awaiting spontaneous void. She is tolerating solids. Pain is controlled yes. Vital Signs: Vitals: 03/14/24 1612 03/14/24 2020 03/15/24 0056 03/15/24 0506 BP: 111/75 116/81 106/72 114/75 BP Location: Right arm Patient Position: Lying Pulse: 80 84 73 88 Resp: 16 18 16 18 Temp: 36.3 C (97.4 F) (!) 35.9 C (96.6 F) 36.3 C (97.3 F) 36.6 C (97.8 F) TempSrc: Temporal Temporal Temporal Temporal SpO2: 95% 97% 97% 98% Weight: Height: Urine Input & Output last 24hrs: Intake/Output Summary (Last 24 hours) at 03/15/2024 0626 Last data filed at 03/15/2024 0044 Gross per 24 hour Intake 1200 ml Output 4580 ml Net -3380 ml Physical Exam: GENERAL APPEARANCE: alert, well appearing, in no apparent distress ABDOMEN : benign non-tender, without masses or organomegaly palpable EXTREMITIES: no redness or tenderness in the calves or thighs, no edema NEUROLOGIC: alert, oriented, normal speech, no focal findings or movement disorder noted UTERUS : normal size, well involuted, firm, non-tender Desc; incision: healing well, no drainage, no erythema, no swelling, well approximated Labs: Lab Results Component Value Date WBC 8.7 03/13/2024 HGB 12.6 03/15/2024 HCT 38.4 03/13/2024 MCV 88.1 03/13/2024 PLT 282 03/13/2024 LABOR DELIVERY ??? SCD's ONLY (labor through ambulation) SCD's PLUS Prophylactic Anticoagulation until discharge SCD's PLUS Prophylactic Anticoagulation for 6 weeks SCD's PLUS Therapeutic Anticoagulation for 6 weeks Vaginal Delivery [] BMI ? 40 kg/m2 Delivery All patients Vaginal Delivery [] BMI ? 40 kg/m2 AND [] Antepartum hospitalization ? 72 hours within the past month Delivery 1 Major Risk Factor: [] BMI ? 35 kg/m2 [] Low Risk Thrombophilia [] PPH+RBCs, IR, or operation [] Infection+Antibiotics [x] Antepartum hospitalization ? 72 hours within the past month [] PMH: Sickle Cell, SLE, Cardiac Dz, Active IBD, Active Cancer, Nephrotic Syndrome OR 2 Minor Risk Factors: [] Multiple gestation [] Age > 40 [] PPH ? 1,000cc [] (+)FMH of VTE [] Smoker [] Preeclampsia [] BMI ? 40 kg/m2 AND [] Low Risk Thrombophilia OR ANY OF THE FOLLOWING: [] High Risk Thrombophilia without prior VTE [] Low Risk Thrombophilia with (+)FMH of VTE [] Any single prior VTE ANY OF THE FOLLOWING: [] Already on LMWH/UFH [] Multiple prior VTE [] High Risk Thrombophilia with prior VTE Low Risk Thrombophilia: FVL (heterozygous), Prothrombin (heterozygous), Protein C, Protein S High Risk Thrombophilia: FVL (homozygous), Prothrombin (homozygous), FVL+Prothrombin (heterozygous), Antithrombin III, APLS Assessment/Plan: Jose Edward is a 28 y.o. POD # 1 s/p PLTCS 2/2 Breech Malpresentation in setting of PPROM andlabor Care - Doing well, VSS - Male - Contraception: Per Private Attending - Encourage ambulation and use of incentive spirometer - D/C west catheter and saline lock IV on POD #1 - Postop Hb 12.6 - VTE Prophylaxis: Prophylactic Dosing until Discharge GDMA1 -Started on insulin 2/2 receiving steroids for lung maturity -Dexcom in place -: DC meds and trend postprandials -Had elevated BGTs over night and was given 4 units of Humalog -AM fasting pending Disposition: Continue current care Based on my clinical assessment, this patient is safe for self discharge (does not need transport by wheelchair) if she so chooses. Provider's Name: MD Chin Brasher, DO 03/15/2024, 6:26 AM Attestation Statement I saw and evaluated the patient. I agree with the findings and plans of the resident physician, andagree as documented in their note. Doing well POD#1, meeting milestones. BG looking better this morning, fasting 98, 1 hour PP 155. Continue to pattern test (last BMZ 03/14). Baby boy in NICU doing well per patient. Continue current management. Approved for Raza Menjivar, will coordinate with NICU. The total time spent on patient care today was 25 minutes. -10 minutes of the visit face to face patient care for counseling/coordination of care -15 minutes chart review and documentation , 9:41 AM * Gypsy Kirby RD - 03/14/2024 3:25 PM EDT Nutrition Note: Patient now s/p delivery earlier today. Regular diet ordered which is appropriate. RD sign off to diet counselor to continue to monitor. Gypsy Kirby MS RD Clinical Dietitian * Ehsan Gonsalez MD - 03/14/2024 9:18 AM EDT Evaluated the patient to assess position. The fetus is breech on BSUS. Ehsan Gonsalez MD 03/14/2024 9:18 AM * Juliana Nguyen DO - 03/14/2024 5:55 AM EDT Images from the original note were not included. Maternal Medicine Service Resident Progress Note 03/14/2024 5:56 AM 03/06/2024 Hospital Day: 9 Jose Thomasezio, 28 y.o. 30w5d Patient has been seen and examined. Patient reports intermittent lower abdominal cramping and pelvic pressure that is not painful but has increased in intensity overnight. She continues to leak clearand occasionally pink tinged fluid. She has not noticed any abnormal or malodorous discharge. She denies any fevers or chills but does feel flushed during the episodes of cramping. SVE performed overnight 1 cm. Due to increased pressure and discomfort, patient started on magnesium for neuroprotection. Positive movement Negative vaginal bleeding Positive LOF Positive Contractions Vitals: 03/14/24 0020 03/14/24 0431 03/14/24 0532 03/14/24 0535 BP: 111/70 113/72 114/68 BP Location: Right arm Pulse: 91 86 92 97 Resp: Temp: 36.7 C (98.1 F) 36.9 C (98.4 F) 36.9 C (98.4 F) TempSrc: Oral Oral Oral SpO2: 95% 97% 100% Weight: Height: FHT: 150, moderate variability Accels: present Decels: absent Contractions: regular, every 4-5 minutes Physical Exam: Gen: NAD, appears comfortable sitting up in chair HEENT: Normocephalic, Atraumatic Resp: Equal chest rise bilaterally, no additional work of breathing Abd: soft, gravid, NTND, no rebound, no guarding. No fundal tenderness Ext: No LE edema, no calf tenderness or swelling Medications: Current Facility-Administered Medications Medication Dose Route Frequency Provider Last Rate Last Admin betamethasone acetate-betamethasone sodium phosphate (Celestone) injection 12 mg 12 mg IntraMUSCular q24h Juliana Nguyen, DO 12 mg at 03/13/24 1003 calcium gluconate 10 % injection 1 g 1 g IntraVENous PRN Dali Hall MD calcium gluconate 10 % injection 1 g 1 g IntraVENous PRN Savanah Duarte, DO dextrose 5 % infusion 100 mL/hr IntraVENous PRN Keiry Boles, DO dextrose 50 % solution 12.5 g 12.5 g IntraVENous PRN Keiry Boles, DO glucagon (human recombinant) injection 1 mg 1 mg IntraMUSCular PRN Keiry Boles, DO glucose oral gel 15 g 15 g Oral PRN Keiry Boles, DO influenza vac tiss-cult subunt (Flucelvax) injection 0.5 mL 0.5 mL IntraMUSCular Once Juliana NguyenDO Insulin Lispro (Humalog) injection 6 Units 6 Units SubCUTAneous TID WC Savanah Duarte DO insulin NPH (Isophane) (HumuLIN N,NovoLIN N) injection 6 Units 6 Units SubCUTAneous Nightly Savanah Duarte DO 6 Units at 03/13/24 2223 lactated Ringer's infusion 125 mL/hr IntraVENous Continuous Savanah Duarte DO 125 mL/hr at 03/14/24 0507 125 mL/hr at 03/14/24 0507 magnesium sulfate 20 GM/500ML infusion 1,000 mg/hr IntraVENous Continuous Savanah Duarte DO magnesium sulfate IVPB premix 4,000 mg 4,000 mg IntraVENous Once Savanah Duarte DO 4,000 mg at 03/14/24 0545 ondansetron ODT (Zofran-ODT) disintegrating tablet 4 mg 4 mg Oral q8h PRN Dali Hall MD Or ondansetron (Zofran) injection 4 mg 4 mg IntraVENous q6h PRN Dali Hall MD pantoprazole (ProtoNix) EC tablet 40 mg 40 mg Oral qAM AC Dali Hall MD 40 mg at 03/13/24 0621 polyethylene glycol (PEG) 3350 (Miralax) packet 17 g 17 g Oral Daily PRN Dali Hall MD vitamin tablet 1 tablet Oral Daily Dali Hall MD 1 tablet at 03/13/24 0824 sodium chloride 0.9 % infusion 5-250 mL/hr IntraVENous PRN Keiry Schlieper, DO sodium chloride 0.9% (NS) flush 5-40 mL 5-40 mL IntraVENous q12h Keiry Schlieper, DO 10 mL at 03/13/24 2222 sodium chloride 0.9% (NS) flush 5-40 mL 5-40 mL IntraVENous PRN Keiry Schlieper, DO 10 mL at 03/14/24 0506 Assessment/Plan: Jose Edward is a 28 y.o. female 30w5d Anhydramnios PPROM - Patient presented with LOF for about 3 weeks; US at outside facility showed anhydramnios; ROM rule out was deferred in [place] secondary to blood noted; transported to [facility] - in triage, SSE showed gross rupture of membranes with nitrazine positive, ferning negative and visually closed - Admitted for further observation with latency antibiotics and steroids - Plan for delivery at 34 weeks or if indicated sooner for labor, infection, or NRFS - Latency Abx given, allergy to azithromycin so received ampicillin - Ampicillin course followed by PO amoxicillin completed - S/p BMZ x 2 03/06-03/07 - S/p Magnesium sulfate for neuroprotection - Growth US 03/07 EFW 1412g 49%tile, AC 45%tile, LEONELA 1.1cm with no 2x2 pocket - Twice weekly BPP, most recent BPP (03/11) was 6/8 for fluid - Patient is chata breech and will be for CD if for delivery - NICU consulted and have seen patient - Patient reported increasing pressure and cramping overnight, found to be 1 cm dilated on digital cervical exam, reportedly was 1 cm at [place], still calos this AM - Patient remained afebrile overnight, reports no fevers or chills, no fundal tenderness on examination - Started on magnesium sulfate infusion for neuroprotection - Given rBMZ x1 on 03/13, due for second dose today @1003 - Currently NPO - Plan to US again today to confirm breech presentation GDMA1 - Carb-controlled diet - Dexcom in place, share code [id number] - Continue to monitor BGTs fasting and 1 hour pp - BGTs elevated overnight, started on Humalog 6 units TID with meals and NPH 6 units nightly IUP @ 30w5d - Dating by 1st trimester US - Breech 03/11 - Monitoring:CEFM - Diet:NPO - rBMZ x2 due on 03/14 @ 1003 Further plan pending d/w attending. Ana Harris 03/14/2024, 5:56 AM Patient independently examined and evaluated by resident physician. Agree with above history, physical examination, assessment, and plan with changes/additions made through out. Associated attestation - Christiano Au MD - 03/14/2024 9:03 AM EDT I independently saw and evaluated the patient. I agree with the findings and plan of care as documented in the resident's note. Notified overnight of increasing abdominal pain and some vaginal bleeding now on her pad atthe bedside and magnesium IV running 28 yr old at 30 5/7 GA with the following: PPPROM/anhydramnios new abdominal pain and vaginal bleeding this am. Consented for as I amconcerned about labor. Continued magnesium IV for now and complete second dose of Celestone. Dr. Gordillo notified and I reviewed the Risks of with consent signed. Discussed with and the patient the R/B/A of repeat including but not limited to risk of injury to surrounding structures, risk of bleeding, hemorrhage, risk for injury to surrounding structures including bowel, bladder and baby. Risk for scarring and VTE as well a low risk for hysterectomy discussed. There is also a risk with anesthesia, please see their counseling note as well. Will continue to monitor but will recommend repeat if continued vaginal bleeding and pain. NICU aware Understands for breech presentation if labor or bleeding GDMA1 continued monitoring of BGT if delivery and will hold insulin. This am fasting elevated and on insulin currently History of UTI concerns negative culture will stop macrobid Prematurity BMZ on 03/06 and 03/07 will administer rBMZ second dose, on magnesium IV currently for neuroprotection Guarded prognosis for continued will observe closely over the next hour I spent 30 minutes in the visit today on the floor reviewing the chart, discussing the case with the residency staff and nursing and I notified our primary OB team of need for delivery Christiano Au MD * Juliana Nguyen DO - 03/13/2024 9:15 AM EDT Temperature of 100.4F noted last night. Night team was not alerted. Repeat this AM afebrile at 97.9F. Patient remains non-tachycardic and NT. Fundus nontender on exam. SSE performed with Dr. Au atbedside. Noted to have normal appearing cervix with no mucopurulent discharge noted. Clear amnioticfluid noted. Plan for continued vitals and rescue steroids at this time. Defer magnesium pending vit als, FHT, and contractions. Dr. Au reviewed and patient updated. Visit Vitals BP 102/74 Pulse 87 Temp 36.6 C (97.9 F) (Oral) Resp 16 * Juliana Nguyen DO - 03/13/2024 5:47 AM EDT Images from the original note were not included. Maternal Medicine Service Resident Progress Note 03/13/2024 5:47 AM 03/06/2024 Hospital Day: 8 Jose Wagner, 28 y.o. 30w4d Patient has been seen and examined. Patient has no concerns. She reports no pain, cramping, or contractions. She continues to leak clear and occasional pink tinged fluid. No fevers or chills. Positive movement Negative vaginal bleeding Positive LOF Negative Contractions Vitals: 03/12/24 1323 03/12/24 1641 03/12/24 1945 03/13/24 0126 BP: 109/78 105/75 107/73 98/64 Pulse: 85 94 85 88 Resp: 18 18 16 18 Temp: 36.3 C (97.3 F) 36.6 C (97.9 F) 36.9 C (98.5 F) 38 C (100.4 F) TempSrc: Temporal Temporal Temporal Temporal SpO2: 97% 97% 97% 97% Weight: Height: FHT: 150, moderate variability Accels: present Decels: absent Contractions: none Physical Exam: Gen: NAD, appears comfortable sitting up in chair HEENT: Normocephalic, Atraumatic Resp: Equal chest rise bilaterally, no additional work of breathing noted Abd: soft, gravid, NTND, no rebound, no guarding. No fundal tenderness Ext: No LE edema, no calf tenderness or swelling Medications: Current Facility-Administered Medications Medication Dose Route Frequency Provider Last Rate Last Admin calcium gluconate 10 % injection 1 g 1 g IntraVENous PRN Dali Hall MD dextrose 5 % infusion 100 mL/hr IntraVENous PRN Keiry Boles DO dextrose 50 % solution 12.5 g 12.5 g IntraVENous PRN Keiry Boles DO glucagon (human recombinant) injection 1 mg 1 mg IntraMUSCular PRN Keiry Boles DO glucose oral gel 15 g 15 g Oral PRN Keiry Boles DO ondansetron ODT (Zofran-ODT) disintegrating tablet 4 mg 4 mg Oral q8h PRN Dali Hall MD Or ondansetron (Zofran) injection 4 mg 4 mg IntraVENous q6h PRN Dali Hall MD pantoprazole (ProtoNix) EC tablet 40 mg 40 mg Oral qAM AC Dali Hall MD 40 mg at 03/12/24 0602 polyethylene glycol (PEG) 3350 (Miralax) packet 17 g 17 g Oral Daily PRN Dali Hall MD vitamin tablet 1 tablet Oral Daily Dali Hall MD 1 tablet at 03/12/24 0957 sodium chloride 0.9 % infusion 5-250 mL/hr IntraVENous PRN Keiry Schlieper, DO sodium chloride 0.9% (NS) flush 5-40 mL 5-40 mL IntraVENous q12h Keiry Schlieper, DO 10 mL at 03/12/242042 sodium chloride 0.9% (NS) flush 5-40 mL 5-40 mL IntraVENous PRN Keiry Schlieper, DO Assessment/Plan: Jose Edward is a 28 y.o. female 30w4d Anhydramnios PPROM - Patient presented with LOF for about 3 weeks; US at outside facility showed anhydramnios; ROM rule out was deferred in [place] secondary to blood noted; transported to [facility] - in triage, SSE showed gross rupture of membranes with nitrazine positive, ferning negative and visually closed - Admitted for further observation with latency antibiotics and steroids - Plan for delivery at 34 weeks or if indicated sooner for labor, infection, or NRFS - Latency Abx given, allergy to azithromycin so received ampicillin - Ampicillin course followed by PO amoxicillin completed - S/p BMZ x 2 03/06-03/07 - S/p Magnesium sulfate for neuroprotection - Growth US 03/07 EFW 1412g 49%tile, AC 45%tile, LEONELA 1.1cm with no 2x2 pocket - Twice weekly BPP, most recent BPP (03/11) was 6/8 for fluid - Patient is chata breech and will be for CD if for delivery - NICU consulted and have seen patient - Most recent SSE 03/11 done for increased pressure, noted to be visually closed - Patient reports she was comfortable overnight with no contractions - Temperature of 100.4 F overnight, patient reports no fevers or chills, no fundal tenderness on examination, repeat temperature this AM afebrile - Patient reports TDAP given 02/27 in the office, will reach out to primary OB for records GDMA1 - Carb-controlled diet - Dexcom in place, share code [id number] - Continue to monitor BGTs fasting and 1 hour pp - BGTs overall controlled Urinary Tract Infection - Diagnosed at OSH - Urine culture with no growth IUP @ 30w4d - Dating by 1st trimester US - Breech 03/11 - Monitorinhr TID - Diet: Gestational CCD - BMZ x2 on 03/06-03/07 Further plan pending d/w attending. Ana Harris, MS4 03/13/2024, 5:47 AM Patient independently examined and evaluated by resident physician. Agree with above history, physical examination, assessment, and plan with changes/additions made through out. Associated attestation - Christiano Au MD - 03/13/2024 1:32 PM EDT I independently saw and evaluated the patient. I agree with the findings and plan of care as documented in the resident's note. Team not notified of temporal temp of 100.4 overnight by RN, patient denies any signs or symptoms of chorio 28 yr old at 30 4/7 GA with the following: PPPROM/anhydramnios temporal temp overnight this am afebrile and I was in attendance for pelvic exam today, normal mucous non-purulent discharge cervix closed and NT abdomen noted. Cat 1 tracing no maternal or tachycardia. S/p NICU consult yesterday . Completed latency ABX. She has no currentsigns or symptoms of chorioamnionitis but will continue to follow extremely closely and we also talked about oral temps only and for the team to be notified for any temp > 100.4 Understands for breech presentation if labor or bleeding GDMA1 continued monitoring of BGT AND WILL GIVE rBMZ,may need insulin transiently if BGT > 180 History of UTI concerns negative culture will stop macrobid Prematurity BMZ on 03/06 and 03/07 will administer rBMZ and hold on magnesium for neuroprotection untildelivery seems imminent Ongoing IP management for PPROM, s/p NICU consultation. Candidate for flu vaccine and Tdap. Will watch closely for labor signs and symptoms no signs of infection. Primary patient of Edouard Paulson/Prachi in [place]. Alerted her RN today to continue temp every 4 hour and to utilize oral temps only. Will call if temp > 100.4 any signs of labor or concerns for tachycardia. All of this wasreiterated to the nursing staff today I spent 45 minutes in the visit today on the floor reviewing the chart, discussing the case with the residency staff and nursing Christiano Au MD * Juliana Nguyen DO - 03/12/2024 6:14 AM EDT Images from the original note were not included. Maternal Medicine Service Resident Progress Note 03/12/2024 6:14 AM 03/06/2024 Hospital Day: 7 Jose Edward, 28 y.o. 30w3d Patient has been seen and examined. Patient reports no pelvic pressure, pain, or contractions. Yesterday she noticed light vaginal spotting but none today. She continues to leak clear fluid. No fevers or chills. She has no questions or concerns. Positive movement Negative vaginal bleeding Positive LOF Negative Contractions Vitals: 03/11/24 0602 03/11/24 0803 03/11/24 1300 03/11/24 1957 BP: 110/72 109/73 117/76 Pulse: 84 97 82 Resp: 18 Temp: 36.1 C (97 F) 36.4 C (97.6 F) 36.7 C (98.1 F) 36.9 C (98.5 F) TempSrc: Temporal Temporal Temporal SpO2: 96% 95% 96% Weight: Height: FHT: 150, moderate variability Accels: present Decels: absent Contractions: none Physical Exam: Gen: NAD, sitting up in chair HEENT: Normocephalic, Atraumatic Resp: Equal chest rise bilaterally, no extra work of breathing noted Abd: soft, gravid, NTND, no rebound, no guarding. No fundal tenderness Ext: No LE edema, no calf tenderness or swelling Medications: Current Facility-Administered Medications Medication Dose Route Frequency Provider Last Rate Last Admin amoxicillin (Amoxil) capsule 500 mg 500 mg Oral 3 times per day Juliana Nguyen DO 500 mg at calcium gluconate 10 % injection 1 g 1 g IntraVENous PRN Dali Hall MD dextrose 5 % infusion 100 mL/hr IntraVENous PRN Keiry Boles DO dextrose 50 % solution 12.5 g 12.5 g IntraVENous PRN Keiry Boles DO glucagon (human recombinant) injection 1 mg 1 mg IntraMUSCular PRN Keiry Maneper, DO glucose oral gel 15 g 15 g Oral PRN Keiry Maneper, DO nitrofurantoin (macrocrystal-monohydrate) (Macrobid) capsule 100 mg 100 mg Oral 2 times per day Juliana Nguyen, DO 100 mg at 03/11/24 2100 ondansetron ODT (Zofran-ODT) disintegrating tablet 4 mg 4 mg Oral q8h PRN Dali Hall MD Or ondansetron (Zofran) injection 4 mg 4 mg IntraVENous q6h PRN Dali Hall MD pantoprazole (ProtoNix) EC tablet 40 mg 40 mg Oral qAM AC Dali Hall MD 40 mg at 03/12/24 0602 polyethylene glycol (PEG) 3350 (Miralax) packet 17 g 17 g Oral Daily PRN Dali Hall MD vitamin tablet 1 tablet Oral Daily Dali Hall MD 1 tablet at 03/11/24 0850 Assessment/Plan: Jose Edward is a 28 y.o. female 30w3d Anhydramnios PPROM - Patient presented with LOF for about 3 weeks; US at outside facility showed anhydramnios; ROM rule out was deferred in [place] secondary to blood noted; transported to [facility] - in triage, SSE showed gross rupture of membranes with nitrazine positive, ferning negative and visually closed - Admitted for further observation with latency antibiotics and steroids - Plan for delivery at 34 weeks or if indicated sooner for labor, infection, or NRFS - Latency Abx ordered, allergy to azithromycin so received ampicillin - Ampicillin course finished, will carry out PO amoxicillin for rest of course - S/p BMZ x 2 03/06-03/07 - S/p Magnesium sulfate for neuroprotection - Growth US 03/07 EFW 1412g 49%tile, AC 45%tile, LEONELA 1.1cm with no 2x2 pocket, BPP 02/09 for fluid - NICU consulted - Patient had repeat SSE 03/11 because she felt increased pressure, noted to be visually closed - Patient reports she was comfortable overnight with no contractions - Patient is chata breech and will be for CD if for delivery - Twice weekly BPP, most recent BPP (03/11) was 12/08 for fluid GDMA1 - Carb-controlled diet - Dexcom in place, share code [id number] - Continue to monitor BGTs fasting and 1 hour pp - BGTs overall controlled Urinary Tract Infection - Diagnosed at OSH - Urine culture normal on admission - Macrobid BID x7 days started on 03/06 IUP @ 30w3d - Dating by 1st trimester US - Breech 03/11 - Monitorinhr TID - Diet:Gestational CCD - BMZ x2 on 03/06-03/07 Further plan pending d/w attending. Ana Harris MS4 03/12/2024, 6:14 AM Patient independently examined and evaluated by resident physician. Agree with above history, physical examination, assessment, and plan with changes/additions made through out. Associated attestation - Christiano Au MD - 03/12/2024 11:48 AM EDT I independently saw and evaluated the patient. I agree with the findings and plan of care as documented in the resident's note. No complaints up in chair no contractions or bleeding feeling well 28 yr old at 30 3/7 GA with the following: PPPROM/anhydramnios continued conservative expectant management NICU consulted and will make sure performed today. Received her latency with Amp/Amox. Understands for breech presentation if labor or bleeding GDMA1 continued monitoring of BGT History of UTI concerns negative culture will stop macrobid Prematurity BMZ on 03/06 and 03/07 candidate for rBMZ and magnesium for neuroprotection if delivery imminent Ongoing IP management for PPROM, planned NICU consultation today. Will watch closely for labor signs and symptoms no signs of infection. Primary patient of Edouard Paulson/Prachi I spent 30 minutes in the visit today on the floor reviewing the chart, discussing the case with the residency staff and nursing Christiano Au MD * Ana Tovar DO - 03/11/2024 12:24 PM EDT Rn notified me that patient having contractions, feeling some pressure. SSE showed closed cervix, no bleeding noted on exam, posterior cervix. Cat I FHT. Will continue to monitor. ANA TOVAR DO 03/11/2024 12:28 PM * Juliana Nguyen DO - 03/11/2024 6:03 AM EDT Images from the original note were not included. Maternal Medicine Service Resident Progress Note 03/11/2024 6:03 AM 03/06/2024 Hospital Day: 6 Jose Edward, 28 y.o. 30w2d Patient has been seen and examined. Patient reports light vaginal spotting overnight but has not noticed any additional bleeding this morning. She reports no pelvic pressure, pain, or cramping. She has intermittent leakage of clear fluid. No fevers or chills. She has no other questions or concerns. Positive movement Negative vaginal bleeding Positive LOF Negative Contractions Vitals: 03/10/24 0839 03/10/24 2059 03/11/24 0022 03/11/24 0602 BP: 107/69 123/80 127/81 110/72 Pulse: 86 79 85 84 Resp: 16 18 18 Temp: 36.3 C (97.4 F) 36.7 C (98.1 F) 36.9 C (98.5 F) 36.1 C (97 F) TempSrc: Oral Oral Temporal SpO2: 99% 99% 96% Weight: Height: FHT: 150, moderate variability Accels: present Decels: absent Contractions: rare Physical Exam: Gen: NAD, sitting up in chair HEENT: Normocephalic, Atraumatic Resp: Equal chest rise bilaterally, no extra work of breathing Abd: soft, gravid, NTND, no rebound, no guarding. No fundal tenderness Ext: No LE edema, no calf tenderness or swelling Medications: Current Facility-Administered Medications Medication Dose Route Frequency Provider Last Rate Last Admin amoxicillin (Amoxil) capsule 500 mg 500 mg Oral 3 times per day Juliana Nguyen DO 500 mg at calcium gluconate 10 % injection 1 g 1 g IntraVENous PRN Dali Hall MD dextrose 5 % infusion 100 mL/hr IntraVENous PRN Keiry Boles DO dextrose 50 % solution 12.5 g 12.5 g IntraVENous PRN Keiry Boles, glucagon (human recombinant) injection 1 mg 1 mg IntraMUSCular PRN Keiry Boles DO glucose oral gel 15 g 15 g Oral PRN Keiry Boles DO lactated ringers infusion 125 mL/hr IntraVENous Continuous Dali Hall MD 125 mL/hr at 03/06/24 1730 125 mL/hr at 03/06/24 1730 nitrofurantoin (macrocrystal-monohydrate) (Macrobid) capsule 100 mg 100 mg Oral 2 times per day Juliana Nguyen DO 100 mg at 03/10/24 210 ondansetron ODT (Zofran-ODT) disintegrating tablet 4 mg 4 mg Oral q8h PRN Dali Hall MD Or ondansetron (Zofran) injection 4 mg 4 mg IntraVENous q6h PRN Dali Hall MD pantoprazole (ProtoNix) EC tablet 40 mg 40 mg Oral qAM AC Dali Hall MD 40 mg at 03/10/24 0704 polyethylene glycol (PEG) 3350 (Miralax) packet 17 g 17 g Oral Daily PRN Dali Hall MD vitamin tablet 1 tablet Oral Daily Dali Hall MD 1 tablet at 03/10/24 0920 Assessment/Plan: Jose Edward is a 28 y.o. female 30w2d Anhydramnios PPROM - Patient presented with LOF for about 3 weeks; US at outside facility showed anhydramnios; ROM rule out was deferred in [place] secondary to blood noted; transported to [facility] - in triage, SSE showed gross rupture of membranes with nitrazine positive, ferning negative and visually closed - Admitted for further observation with latency antibiotics and steroids - Plan for delivery at 34 weeks or if indicated sooner for labor, infection, or NRFS - Latency Abx ordered, allergy to azithromycin so received ampicillin - Ampicillin course finished, will carry out PO amoxicillin for rest of course - S/p BMZ x 2 03/06-03/07 - S/p Magnesium sulfate for neuroprotection - Growth US 03/07 EFW 1412g 49%tile, AC 45%tile, LEONELA 1.1cm with no 2x2 pocket, BPP 8/10 for fluid - Patient is chata breech and will be for CD if for delivery - NICU consulted - Patient reported vaginal bleeding overnight, SSE performed, cervix unchanged and visibly dilated to 1 cm, no active bleeding - BPP today GDMA1 - Carb-controlled diet - Dexcom in place, share code [id number] - Continue to monitor BGTs fasting and 1 hour pp Urinary Tract Infection - Diagnosed at OSH - Urine culture normal on admission - Macrobid BID x7 days started on 03/06 IUP @ 30w2d - Dating by 1st trimester US - Breech 03/07 - Monitorinhr TID - Diet: Gestational CCD - BMZ x2 on 03/06-03/07 Further plan pending d/w attending. Ana Harris, MS4 03/11/2024, 6:03 AM Patient independently examined and evaluated by resident physician. Agree with above history, physical examination, assessment, and plan with changes/additions made through out. Associated attestation - Saumya Mancia MD - 03/11/2024 2:51 PM EDT M ATTENDING I have personally obtained a history and examined the patient with Dr. Nguyen. I agree with the assessment and plan as documented in the resident's note. The patient is a 28 y.o. 30w2d now HD#6, admitted for PPROM Pertinent Background: Transferred from [place] for PPROM. Gross rupture confirmed on admit and anhydramnios at OSH ultrasound. Given BMZ, Mag for TOBACCO HANGER and latency antibiotics (amox only due to Severe Zmax allergy) Has new GDMA1 Since admission she has remained stable without signs of labor or infection. Overnight has mild spotting and this morning had some pressure and contractions. SSE was stable andon rounds, the patient is feeling better without complaints. Vitals: 03/11/24 1300 BP: Pulse: Resp: Temp: 36.7 C (98.1 F) SpO2: Alert and oriented, NAD Gravid nontender abdomen Current Monitoring Plan: 1hr TID NST NST: Reactive reassuring Ultrasound: (03/07) 1412g (49%), Chata Breech, LEONELA 1cm, BPP 6/8 for -2 fluid- NST reactive 03/11/24: BPP 6/8 for fluid (NST reactive- 02/09), LEONELA 1.8cm, Breech Lab Results Component Value Date WBC 15.2 (H) 03/06/2024 HGB 14.1 03/06/2024 HCT 41.8 03/06/2024 MCV 90.1 03/06/2024 PLT 311 03/06/2024 Plan: On admit I extensively on the diagnosis of PPROM, the potential risks including labor, infection, placental abruption and cord compression with NRFS resulting in possible need for emergent delivery. We discussed the rationale for latency antibiotics, BMZ for lung maturity and magnesium for TOBACCO HANGER. We discussed the indication for delivery with any signs of infection. We reviewed the recommendation for inpatient admission until delivery and plan for delivery at 34 weeks unless indicated sooner for labor, infection or NRFS. All questions answered. Latency antibiotics day 12/07 S/p BMZ 03/06- S/p Mag S/p NICU consult 1hr TID testing Glucose patterning for GDMA1- overall ok on diet alone Understands baby in breech presentation and would be for if delivered 25 minutes spent in total floor time today for review of records, patient interview and exam, documentation and coordination of care with care teams. Saumya Mancia MD * Keiry Boles DO - 03/11/2024 12:39 AM EDT Images from the original note were not included. Notified by RN of bleeding patient noticed while wiping and reports of abdominal tightening. FHT Cat I. No CTX on toco. FHT Cat I. SSE performed, cervix visually 1 cm, unchanged from prior exams. No bleeding noted, friability noted on os. Patient placed on monitor, IVF bolus given. Will continue to monitor closely. * Joanne Adame RD - 03/10/2024 7:41 AM EDT Nutrition Assessment Type and Reason for Visit: Initial (DT referral - gestational DM) Nutrition Recommendations/Plan: Continue diet & encourage po intake. Monitor need for snacks/supplements. Recommend record po intake in I/O flowsheet to monitor. RD will follow weekly. Malnutrition Assessment: Malnutrition Status: Insufficient data Nutrition Assessment: 28 y.o. 30w1d. Patient reports LOF for about 3 weeks; US at outside facility showed anhydramnios; ROM rule out was deferred in [place] secondary to blood noted; transported to [facility]. In triage,SSE showed gross rupture of membranes with nitrazine positive, ferning negative and visually closed. Admitted for further observation with latency antibiotics and steroids. Plan for delivery at 34 weeks or if indicated sooner for labor, infection, or NRFS. GDMA1 - Carb- controlled diet. Dexcom in place. Continue to monitor BGTs fasting and 1 hour pp. Received 5 units of Humalog twice overnight on 03/06. BGTs overnight elevated, consider adding dinner log. Nutrition Related Findings: Glucose (03/09) 91/139/94/172/177 mg/dL, Glucose today 89 mg/dL. Medications reivewed. Generalized edema, Narayan 23, GI WDL, BM 03/09. Gestational Diabetes diet 30-45-60 gm CHO/meal). Wound Type: None Current Nutrition Therapies: Adult diet Regular; Gestational (30-45-60 gm/meal) Current Oral Intake Average Meal Intake: Unable to assess Average Supplements Intake: None Ordered Anthropometric Measures: Height: 157.5 cm (5' 2) Current Body Weight: 85.3 kg (188 lb) (03/06) Weight Source: Not Specified Hollywood Body Weight (lbs) (Calculated): 110 lbs Hollywood Body Weight (Kg) (Calculated): 50 kg % Hollywood Body Weight (Calculated): 170.9 % BMI (kg/m2) (Calculated): 34.4 Weight Adjustment For: No Adjustment BMI Categories: Obese Class 1 (BMI 30.0-34.9) Nutrition Diagnosis: Increased nutrient needs related to increase demand for energy/nutrients as evidenced by () Nutrition Interventions: Nutrition Education/Counseling: No recommendation at this time Coordination of Nutrition Care: Continue to monitor while inpatient Goals: Goals: PO intake 75% or greater, other (specify) Specify Other Goals: BG levels well controlled Nutrition Monitoring and Evaluation: Behavioral-Environmental Outcomes: None Identified Food/Nutrient Intake Outcomes: Food and Nutrient Intake Physical Signs/Symptoms Outcomes: Biochemical Data, GI Status, Fluid Status or Edema, Nutrition Focused Physical Findings, Weight Discharge Planning: Too soon to determine Joanne Adame RD Contact: Coupad or *[id number] * Mary Alonso MD - 03/10/2024 7:11 AM EDT Images from the original note were not included. Maternal Medicine Service Resident Progress Note 03/10/2024 7:11 AM 03/06/2024 Hospital Day: 5 Jose Edward, 28 y.o. 30w1d Patient has been seen and examined. No patient complaints this AM. Fluid remains clear. Positive movement Negative vaginal bleeding Positive LOF Negative Contractions Vitals: 03/09/24 0504 03/09/24 0848 03/09/24 0849 03/09/242013 BP: 107/75 119/63 102/71 BP Location: Left arm Patient Position: Sitting Pulse: 82 98 91 Resp: 18 16 16 Temp: 36.6 C (97.9 F) 36.7 C (98.1 F) 36.7 C (98.1 F) TempSrc: Oral Temporal SpO2: 100% 96% Weight: Height: FHT: 150, moderate variability Accels: present Decels: absent Contractions: none Physical Exam: Gen: NAD HEENT: Normocephalic, Atraumatic, EOMI, MMM Resp: Increased WOB Card: Regular rate Abd: soft, gravid, NTND, no rebound, no guarding, no fundal tenderness Ext: No LE edema, no calf tenderness or swelling Medications: Current Facility-Administered Medications Medication Dose Route Frequency Provider Last Rate Last Admin amoxicillin (Amoxil) capsule 500 mg 500 mg Oral 3 times per day Juliana Nguyen, DO 500 mg at 704 calcium gluconate 10 % injection 1 g 1 g IntraVENous PRN Dali Hall MD dextrose 5 % infusion 100 mL/hr IntraVENous PRN Keiry Boles, dextrose 50 % solution 12.5 g 12.5 g IntraVENous PRN Keiry Maneper, DO glucagon (human recombinant) injection 1 mg 1 mg IntraMUSCular PRN Keiry Boles, DO glucose oral gel 15 g 15 g Oral PRN Keiry Boles, DO lactated ringers infusion 125 mL/hr IntraVENous Continuous Dali Hall MD 125 mL/hr at 03/06/24 1730 125 mL/hr at 03/06/24 173 nitrofurantoin (macrocrystal-monohydrate) (Macrobid) capsule 100 mg 100 mg Oral 2 times per day Juliana Nguyen DO 100 mg at 03/09/242015 ondansetron ODT (Zofran-ODT) disintegrating tablet 4 mg 4 mg Oral q8h PRN Dali Hall MD Or ondansetron (Zofran) injection 4 mg 4 mg IntraVENous q6h PRN Dali Hall MD pantoprazole (ProtoNix) EC tablet 40 mg 40 mg Oral qAM AC Dali Hall MD 40 mg at 03/10/24 0704 polyethylene glycol (PEG) 3350 (Miralax) packet 17 g 17 g Oral Daily PRN Dali Hall MD vitamin tablet 1 tablet Oral Daily Dali Hall MD 1 tablet at 03/09/24 0844 Assessment/Plan: Jose Edward is a 28 y.o. female 30w1d Anhydramnios PPROM - Patient reports LOF for about 3 weeks; US at outside facility showed anhydramnios; ROM rule out was deferred in [place] secondary to blood noted; transported to [facility] - in triage, SSE showed gross rupture of membranes with nitrazine positive, ferning negative and visually closed - Admitted for further observation with latency antibiotics and steroids - Plan for delivery at 34 weeks or if indicated sooner for labor, infection, or NRFS - Latency Abx ordered, allergy to azithromycin so currently receiving ampicillin - Ampicillin course finished, will carry out PO amoxicillin for rest of course - S/p BMZ x 2 9/4-03/07 - S/p Magnesium sulfate for neuroprotection - Growth US 03/08 EFW 1412g 49%tile, AC 45%tile, LEONELA 1.1cm with no 2x2 pocket, BPP 8/10 for fluid - Patient is breech and will be for CD if for delivery - NICU consulted - Afebrile, VSS - No fundal tenderness - Will continue to monitor GDMA1 - Carb-controlled diet - Dexcom in place, share code [id number] - Continue to monitor BGTs fasting and 1 hour pp - Received 5 units of Humalog twice overnight on 03/06 - BGTs overnight elevated, consider adding dinner log Urinary Tract Infection - Diagnosed at OSH - Urine culture normal on admission - Macrobid BID x7 days ordered, consider discontinuing IUP @ 30w1d - Dating by 1st tri US - Breech 03/06 - Monitorinhr TID - Diet:Gestational CCD - BMZ x2 on 03/06-03/07 Further plan pending d/w attending. Mary Alonso MD 03/10/2024, 7:11 AM Associated attestation - Saumya aMncia MD - 03/10/2024 2:46 PM EDT MFM ATTENDING I have personally obtained a history and examined the patient with Dr. Nguyen. I agree with the assessment and plan as documented in the resident's note. The patient is a 28 y.o. 30w1d now HD#5, admitted for PPROM Pertinent Background: Transferred from [place] for PPROM. Gross rupture confirmed on admit and anhydramnios at OSH ultrasound. Given BMZ, Mag for TOBACCO HANGER and latency antibiotics (amox only due to Severe Zmax allergy) Has new GDMA1 Since admission she has remained stable without signs of labor or infection. Today she is without any complaints and reports good movement. She denies fevers, chills, contractions and VB. Vitals: 03/10/24 0839 BP: 107/69 Pulse: 86 Resp: 16 Temp: 36.3 C (97.4 F) SpO2: Alert and oriented, NAD Gravid nontender abdomen Current Monitoring Plan: 1hr TID NST NST: Reactive reassuring Ultrasound: (03/07) 1412g (49%), Chata Breech, LEONELA 1cm, BPP 6/8 for -2 fluid- NST reactive Lab Results Component Value Date WBC 15.2 (H) 03/06/2024 HGB 14.1 03/06/2024 HCT 41.8 03/06/2024 MCV 90.1 03/06/2024 PLT 311 03/06/2024 Plan: On admit I extensively on the diagnosis of PPROM, the potential risks including labor, infection, placental abruption and cord compression with NRFS resulting in possible need for emergent delivery. We discussed the rationale for latency antibiotics, BMZ for lung maturity and magnesium for TOBACCO HANGER. We discussed the indication for delivery with any signs of infection. We reviewed the recommendation for inpatient admission until delivery and plan for delivery at 34 weeks unless indicated sooner for labor, infection or NRFS. All questions answered. Continue latency antibiotics for 7 days total. S/p BMZ 03/06- S/p Mag S/p NICU consult 1hr TID testing Glucose patterning for GDMA1- overall ok, had elevation postdinner yesterday- if continues will consider treatment. Understands baby in breech presentation and would be for if delivered 25 minutes spent in total floor time today for review of records, patient interview and exam, documentation and coordination of care with care teams. Saumya Mancia MD * Juliana Nguyen, - 03/09/2024 5:58 AM EDT Images from the original note were not included. Maternal Medicine Service Resident Progress Note 03/09/2024 5:58 AM 03/06/2024 Hospital Day: 4 Jose Edward, 28 y.o. 30w0d Patient has been seen and examined. Pt is doing well. Reports no contractions overnight and slept well. Endorses continued leakage of fluid. Denies fevers/chills. Positive movement Negative vaginal bleeding Positive LOF Negative Contractions Vitals: 03/08/24 1645 03/08/24 2122 03/09/24 0045 03/09/24 0504 BP: 108/68 113/71 110/68 107/75 Pulse: 90 88 86 82 Resp: 18 18 18 Temp: 36.6 C (97.9 F) 36.6 C (97.9 F) 36.7 C (98 F) 36.6 C (97.9 F) TempSrc: Oral Oral Oral Oral SpO2: 98% 99% 100% Weight: Height: FHT: 140, moderate variability Accels: present Decels: absent Contractions: none Physical Exam: Gen: NAD HEENT: Normocephalic, Atraumatic, EOMI, MMM Resp: Equal chest rise bilaterally Abd: soft, gravid, NTND, no rebound, no guarding. No fundal tenderness Ext: No LE edema, no calf tenderness or swelling Medications: Current Facility-Administered Medications Medication Dose Route Frequency Provider Last Rate Last Admin amoxicillin (Amoxil) capsule 500 mg 500 mg Oral 3 times per day Juliana Nguyen DO 500 mg at 116 calcium gluconate 10 % injection 1 g 1 g IntraVENous PRN Dali Hall MD dextrose 5 % infusion 100 mL/hr IntraVENous PRN Keiry Boles, DO dextrose 50 % solution 12.5 g 12.5 g IntraVENous PRN Keiry Boles, DO famotidine (Pepcid) tablet 20 mg 20 mg Oral BID Ehsan Gonsalez MD 20 mg at 03/08/24 173 Or famotidine (Pepcid) 20 mg in sodium chloride (PF) 0.9 % 10 mL injection 20 mg IntraVENous BID Ehsan Gonsalez MD 20 mg at 03/08/242115 glucagon (human recombinant) injection 1 mg 1 mg IntraMUSCular PRN Keiry Boles, DO glucose oral gel 15 g 15 g Oral PRN Keiry Boles, DO lactated ringers infusion 125 mL/hr IntraVENous Continuous Dali Hall MD 125 mL/hr at 03/06/24 173 125 mL/hr at 03/06/24 173 nitrofurantoin (macrocrystal-monohydrate) (Macrobid) capsule 100 mg 100 mg Oral 2 times per day Juliana Nguyen DO 100 mg at 03/08/242115 ondansetron ODT (Zofran-ODT) disintegrating tablet 4 mg 4 mg Oral q8h PRN Dali Hall MD Or ondansetron (Zofran) injection 4 mg 4 mg IntraVENous q6h PRN Dali Hall MD polyethylene glycol (PEG) 3350 (Miralax) packet 17 g 17 g Oral Daily PRN Dali Hall MD vitamin tablet 1 tablet Oral Daily Dali Hall MD 1 tablet at 03/08/24 1011 Assessment/Plan: Jose Edward is a 28 y.o. female 30w0d Anhydramnios PPROM - Patient reports LOF for about 3 weeks; US at outside facility showed anhydramnios; ROM rule out was deferred in [place] secondary to blood noted; transported to [facility] - in triage, SSE showed gross rupture of membranes with nitrazine positive, ferning negative and visually closed - Admitted for further observation with latency antibiotics and steroids - Plan for delivery at 34 weeks or if indicated sooner for labor, infection, or NRFS - Latency Abx ordered, allergy to azithromycin so currently receiving ampicillin - Ampicillin course finished, will carry out PO amoxicillin for rest of course - S/p BMZ x 2 03/06-03/07 - S/p Magnesium sulfate for neuroprotection - CEFM - General carb controlled diet - Growth 03/08 EFW 1412g 49%tile, AC 45%tile, LEONELA 1.1cm with no 2x2 pocket, BPP 8/10 for fluid - Patient is breech and will be for CD if for delivery - NICU consulted - FHT Cat I overnight with moderate variability and accelerations, not tracing contractions on TOCO - Patient denies contractions overnight - Will continue to monitor GDMA1 - Carb control diet - Dexcom in place, share code [id number] - Continue to monitor BGTs fasting and 1 hour pp - Received 5 units of Humalog twice overnight on 03/06 - BGTs overnight well controlled, postprandial dinner elevated at 171 with repeat 143 - Continue to trend Urinary Tract Infection - Diagnosed at OSH - Culture pending on admission - Macrobid BID x7 days ordered IUP @ 30w0d - Dating by 1st trimester US - Breech by US 03/06 - Monitorinhr TID - Diet:Gestational CCD - BMZ x2 on 03/06 - 03/07 Further plan pending d/w attending. Juliana Nguyen, 03/09/2024, 5:58 AM Associated attestation - Saumya Mancia MD - 03/09/2024 10:57 AM EDT MFM ATTENDING I have personally obtained a history and examined the patient with Dr. Nguyen. I agree with the assessment and plan as documented in the resident's note. The patient is a 28 y.o. 30w0d now HD#4, admitted for PPROM Pertinent Background: Transferred from [place] for PPROM. Gross rupture confirmed on admit and anhydramnios at OSH ultrasound. Given BMZ, Mag for TOBACCO HANGER and latency antibiotics (amox only due to Severe Zmax allergy) Has new GDMA1 Since admission she has remained stable without signs of labor or infection. Today she is without any complaints and reports good movement. She denies fevers, chills, contractions and VB. Vitals: 03/09/24 0849 BP: 119/63 Pulse: 98 Resp: Temp: SpO2: Alert and oriented, NAD Gravid nontender abdomen Current Monitoring Plan: 1hr TID NST NST: Reactive reassuring Ultrasound: (03/07) 1412g (49%), Chata Breech, LEONELA 1cm, BPP 6/8 for -2 fluid- NST reactive Lab Results Component Value Date WBC 15.2 (H) 03/06/2024 HGB 14.1 03/06/2024 HCT 41.8 03/06/2024 MCV 90.1 03/06/2024 PLT 311 03/06/2024 Plan: On admit I extensively on the diagnosis of PPROM, the potential risks including labor, infection, placental abruption and cord compression with NRFS resulting in possible need for emergent delivery. We discussed the rationale for latency antibiotics, BMZ for lung maturity and magnesium for TOBACCO HANGER. We discussed the indication for delivery with any signs of infection. We reviewed the recommendation for inpatient admission until delivery and plan for delivery at 34 weeks unless indicated sooner for labor, infection or NRFS. All questions answered. Continue latency antibiotics for 7 days total. S/p BMZ 03/06- S/p Mag S/p NICU consult 1hr TID testing Glucose patterning for GDMA1 Add omeprazole for heartburn (patient takes regularly at home) Understands baby in breech presentation and would be for if delivered 25 minutes spent in total floor time today for review of records, patient interview and exam, documentation and coordination of care with care teams. Saumya Mancia MD * Malia Cordova - 03/08/2024 2:00 PM EDT Nutrition rescreen completed. Patient referred to the Dietitian due to gestational diabetes. YUN Pineda * Juliana Nguyen DO - 03/08/2024 5:51 AM EDT Images from the original note were not included. Maternal Medicine Service Resident Progress Note 03/08/2024 5:51 AM 03/06/2024 Hospital Day: 3 Jose Edward, 28 y.o. 29w6d Patient has been seen and examined. Pt is doing well this AM. She does report more pressure and cramping than prior, however, reports she is comfortable and does not went a SSE at this time. Reports continued leakage of fluid, but good movement. Positive movement Negative vaginal bleeding Positive LOF Positive Contractions Vitals: 03/07/24 1245 03/07/24 1631 03/07/24201003/08/24 0040 BP: 118/71 113/81 110/76 98/61 Pulse: 94 104 98 98 Resp: 16 16 16 14 Temp: 36.6 C (97.9 F) 36.8 C (98.3 F) 36.8 C (98.3 F) 37.2 C (99 F) TempSrc: Oral Oral Temporal Temporal SpO2: 99% 99% 96% 95% Weight: Height: FHT: 140, moderate variability Accels: present Decels: absent Contractions: none on toco, though patient is feeling some Physical Exam: Gen: NAD HEENT: Normocephalic, Atraumatic, EOMI, MMM Resp: Equal chest rise bilaterally Abd: soft, gravid, NTND, no rebound, no guarding. No fundal tenderness Ext: No LE edema, no calf tenderness or swelling Medications: Current Facility-Administered Medications Medication Dose Route Frequency Provider Last Rate Last Admin amoxicillin (Amoxil) capsule 500 mg 500 mg Oral 3 times per day Juliana Nguyen DO calcium gluconate 10 % injection 1 g 1 g IntraVENous PRN Dali Hall MD dextrose 5 % infusion 100 mL/hr IntraVENous PRN Keiry Boles, DO dextrose 50 % solution 12.5 g 12.5 g IntraVENous PRN Keiry Boles, DO glucagon (human recombinant) injection 1 mg 1 mg IntraMUSCular PRN Keiry Boles, DO glucose oral gel 15 g 15 g Oral PRN Keiry Boles, DO lactated ringers infusion 125 mL/hr IntraVENous Continuous Dali Hall MD 125 mL/hr at 03/06/24 1730 125 mL/hr at 03/06/24 1730 nitrofurantoin (macrocrystal-monohydrate) (Macrobid) capsule 100 mg 100 mg Oral 2 times per day Juliana Nguyen DO 100 mg at 03/07/242012 ondansetron ODT (Zofran-ODT) disintegrating tablet 4 mg 4 mg Oral q8h PRN Dali Hall MD Or ondansetron (Zofran) injection 4 mg 4 mg IntraVENous q6h PRN Dali Hall MD polyethylene glycol (PEG) 3350 (Miralax) packet 17 g 17 g Oral Daily PRN Dali Hall MD vitamin tablet 1 tablet Oral Daily Dali Hall MD 1 tablet at 03/07/24 0905 Assessment/Plan: Jose Edward is a 28 y.o. female 29w6d Anhydramnios PPROM - Patient reports LOF for about 3 weeks; US at outside facility showed anhydramnios; ROM rule out was deferred in [place] secondary to blood noted; transported to [facility] - in triage, SSE showed gross rupture of membranes with nitrazine positive, ferning negative and visually closed - Admitted for further observation with latency antibiotics and steroids - Plan for delivery at 34 weeks or if indicated sooner for labor, infection, or NRFS - Latency Abx ordered, allergy to azithromycin so currently receiving ampicillin - Ampicillin course finished, will carry out PO amoxicillin for rest of course - S/p BMZ x 2 03/06-03/07 - S/p Magnesium sulfate for neuroprotection - CEFM - General carb controlled diet - Growth US 03/08 EFW 1412g 49%tile, AC 45%tile, LEONELA 1.1cm with no 2x2 pocket, BPP 8/10 for fluid - Patient is breech and will be for CD if for delivery - NICU consulted - FHT Cat I overnight with moderate variability and accelerations, not tracing contractions on TOCO, though patient does report feeling intermittent contractions/pressure - Declines SSE - Will continue to monitor GDMA1 - Carb control diet - Dexcom in place, share code [id number] - Continue to monitor BGTs fasting and 1 hour pp - Received 5 units of Humalog twice overnight on 03/06 - BGTs overnight well controlled, postprandial dinner slightly elevated at 149 - Continue to trend Urinary Tract Infection - Diagnosed at OSH - Culture pending on admission - Macrobid BID x7 days ordered IUP @ 29w6d - Dating by 1st trimester US - Breech by US 03/06 - Monitoring:CEFM - Diet:Gestational CCD - BMZ x1 on 03/06 @1415, second dose today Further plan pending d/w attending. Juliana Nguyen DO 03/08/2024, 5:51 AM Associated attestation - Saumya Mancia MD - 03/08/2024 5:04 PM EDT MFM ATTENDING I have personally obtained a history and examined the patient with Dr. Nguyen. I agree with the assessment and plan as documented in the resident's note. The patient is a 28 y.o. 29w6d now HD#3, admitted for PPROM Pertinent Background: Transferred overnight for PPROM. Gross rupture confirmed on admit and anhydramnios at OSH ultrasound. Given BMZ, Mag for TOBACCO HANGER and latency antibiotics (amox only due to Severe Zmax allergy) Has new GDMA1 Today she is without any complaints and reports good movement. She denies fevers, chills, contractions and VB. Vitals: 03/08/24 1645 BP: 108/68 Pulse: 90 Resp: Temp: 36.6 C (97.9 F) SpO2: 98% Alert and oriented, NAD Gravid nontender abdomen Current Monitoring Plan: CEFM NST NST: Reactive reassuring Ultrasound: (03/07) 1412g (49%), Chata Breech, LEONELA 1cm, BPP 6/8 for -2 fluid- NST reactive Lab Results Component Value Date WBC 15.2 (H) 03/06/2024 HGB 14.1 03/06/2024 HCT 41.8 03/06/2024 MCV 90.1 03/06/2024 PLT 311 03/06/2024 Plan: On admit I extensively on the diagnosis of PPROM, the potential risks including labor, infection, placental abruption and cord compression with NRFS resulting in possible need for emergent delivery. We discussed the rationale for latency antibiotics, BMZ for lung maturity and magnesium for TOBACCO HANGER. We discussed the indication for delivery with any signs of infection. We reviewed the recommendation for inpatient admission until delivery and plan for delivery at 34 weeks unless indicated sooner for labor, infection or NRFS. All questions answered. Continue latency antibiotics for 7 days total. S/p BMZ 03/06- S/p Mag S/p NICU consult Ok for deescalate to 1hr TID testing Understands baby in breech presentation and would be for if delivered 35 minutes spent in total floor time today for review of records, patient interview and exam, documentation and coordination of care with care teams. Saumya Mancia MD * Juliana Nguyen, - 03/07/2024 5:44 AM EDT Images from the original note were not included. Maternal Medicine Service Resident Progress Note 03/07/2024 6:44 AM 03/06/2024 Hospital Day: 2 Jose Edward, 28 y.o. 29w5d Patient has been seen and examined. Patient complains of lower abdominal pressure with continued gushes of fluid. The pressure is intermittent, waxing and waning sporadically. She notices increased fluid leakage during the periods of pressure. The fluid is clear and mixed with mucus. She has no vaginal bleeding. No fevers or chills. She otherwise feels well and has no other concerns. Declined exam this AM, but instructed to let us know if she starts feeling more pressure or would like to be checked. Positive movement Negative vaginal bleeding Positive LOF Positive Contractions Vitals: 03/06/24 1725 03/06/24200903/06/24 2340 03/07/24 0438 BP: 107/75 111/76 111/71 Pulse: 106 102 102 91 Resp: 16 18 16 Temp: 36.9 C (98.4 F) 36.6 C (97.8 F) 36.9 C (98.5 F) TempSrc: Temporal Temporal Temporal SpO2: (!) 94% (!) 93% 96% Weight: Height: FHT: 140, moderate variability Accels: present Decels: absent Contractions: irregular Physical Exam: Gen: Alert, engaging in conversation, appears comfortable HEENT: Normocephalic, Atraumatic Resp: Clear to auscultation bilaterally Card: Regular rate and rhythm with no additional sounds Abd: soft, gravid, nontender, no rebound, no guarding. BS present. No fundal tenderness Ext: No LE edema, no calf tenderness or swelling Medications: Current Facility-Administered Medications Medication Dose Route Frequency Provider Last Rate Last Admin ampicillin (Omnipen) 2,000 mg in sodium chloride 0.9 % 100 mL IVPB 2,000 mg IntraVENous 4 times perday Juliana Nguyen DO 200 mL/hr at 03/07/24202 2,000 mg at 03/07/24 020 Followed by [START ON 03/08/2024] amoxicillin (Amoxil) capsule 500 mg 500 mg Oral 3 times per day Juliana Nguyen DO betamethasone acetate-betamethasone sodium phosphate (Celestone) injection 12 mg 12 mg IntraMUSCular Once Juliana Nguyen DO calcium gluconate 10 % injection 1 g 1 g IntraVENous PRN Dali Hall MD dextrose 5 % infusion 100 mL/hr IntraVENous PRN Keiry Boles DO dextrose 50 % solution 12.5 g 12.5 g IntraVENous PRN Keiry Boles DO glucagon (human recombinant) injection 1 mg 1 mg IntraMUSCular PRN Keiry Boles DO glucose oral gel 15 g 15 g Oral PRN Keiry Boles DO lactated ringers infusion 125 mL/hr IntraVENous Continuous Dali Hall MD 125 mL/hr at 03/06/24 1730 125 mL/hr at 03/06/24 173 magnesium sulfate 20 GM/500ML infusion 1,000 mg/hr IntraVENous Continuous Dali Hall MD 25 mL/hr at 03/06/24 1745 1,000 mg/hr at 03/06/24 174 nitrofurantoin (macrocrystal-monohydrate) (Macrobid) capsule 100 mg 100 mg Oral 2 times per day Juliana Nguyen DO 100 mg at 03/06/242002 ondansetron ODT (Zofran-ODT) disintegrating tablet 4 mg 4 mg Oral q8h PRN Dali Hall MD Or ondansetron (Zofran) injection 4 mg 4 mg IntraVENous q6h PRN Dali Hall MD polyethylene glycol (PEG) 3350 (Miralax) packet 17 g 17 g Oral Daily PRN Dali Hall MD vitamin tablet 1 tablet Oral Daily Dali Hall MD 1 tablet at 03/06/24 1830 Assessment/Plan: Jose Edward is a 28 y.o. female 29w5d who presented to labor and delivery with loss of fluid and anhydramnios on ultrasound and is now admitted for PPROM. Anhydramnios PPROM - Patient reports LOF for about 3 weeks; US at outside facility showed anhydramnios; ROM rule out was deferred in [place] secondary to blood noted; transported to [facility] - in triage, SSE showed gross rupture of membranes with nitrazine positive, ferning negative and visually closed - Latency Abx ordered, allergy to azithromycin so currently receiving ampicillin - s/p BMZx1 at 1415 at [facility], second dose ordered for today - magnesium sulfate loading dose given at outside facility, undergoing continuous infusion at 1g/hrfor neuroprotection - CEFM - General carb controlled diet - Growth US this morning - Patient is breech and will be for CD if for delivery GDMA1 - Carb control diet - Dexcom in place, share code [id number] - Continue to monitor BGTs fasting and 1 hour pp - Received 5 units of Humalog twice overnight Urinary Tract Infection - Diagnosed at OSH - Culture pending on admission - Macrobid BID x7 days ordered IUP @ 29w5d - Dating by 1st trimester US - Breech by US 03/06 - Monitoring:CEFM - Diet:Gestational CCD - BMZ x1 on 03/06 @1415, second dose today Further plan pending d/w attending. Juliana Nguyen, 03/07/2024, 6:44 AM Associated attestation - Saumya Mancia MD - 03/07/2024 3:39 PM EDT MFM ATTENDING I have personally obtained a history and examined the patient with Dr. Nguyen. I agree with the assessment and plan as documented in the resident's note. The patient is a 28 y.o. 29w5d now HD#2, admitted for PPROM Pertinent Background: Transferred overnight for PPROM. Gross rupture confirmed on admit and anhydramnios at OSH ultrasound. Given BMZ, Mag for TOBACCO HANGER and latency antibiotics (amox only due to Severe Zmax allergy) Has new GDMA1 with elevated dinner value last night with steroids. Today she is without any complaints and reports good movement. She denies fevers, chills, contractions and VB. Vitals: 03/07/24 0916 BP: 111/74 Pulse: 97 Resp: 18 Temp: 36.7 C (98.1 F) SpO2: 100% Alert and oriented, NAD Gravid nontender abdomen Current Monitoring Plan: CEFM NST NST: Reactive reassuring Ultrasound: 1412g (49%), Chata Breech, LEONELA 1cm, BPP 6/8 for -2 fluid- NST reactive Lab Results Component Value Date WBC 15.2 (H) 03/06/2024 HGB 14.1 03/06/2024 HCT 41.8 03/06/2024 MCV 90.1 03/06/2024 PLT 311 03/06/2024 Plan: Today I counseled the patient extensively on the diagnosis of PPROM, the potential risks including labor, infection, placental abruption and cord compression with NRFS resulting in possible need for emergent delivery. We discussed the rationale for latency antibiotics, BMZ for lung maturityand magnesium for TOBACCO HANGER. We discussed the indication for delivery with any signs of infection. We reviewed the recommendation for inpatient admission until delivery and plan for delivery at 34 weeks unless indicated sooner for labor, infection or NRFS. All questions answered. Continue latency antibiotics for 7 days total. BMZ #2 this evening S/p Mag for TOBACCO HANGER x >12 hrs total- now stopped NICU consult Understands baby in breech presentation and would be for if delivered 60 minutes spent in total floor time today for review of records, patient interview and exam, documentation and coordination of care with care teams. Saumya Mancia MD * Juliana Ace, DO - 03/06/2024 6:39 PM EDT Images from the original note were not included. Department of Obstetrics and Gynecology Labor and Delivery Triage Note CHIEF COMPLAINT: Anyhydramnios HISTORY OF PRESENT ILLNESS: The patient is a 28 y.o. 29w4d. Patient presents with a chief complaint as above and is being admitted for observation and BMZ + Magnesium. Patient reports she has been leaking for 3 weeks now. She was evaluated in [place] initially at that time with amnisure that was negative. She continued to have leakage. US today showed anhydramnios. Patient also noted to have a UTI and was prescribed macrobid. Due to anhydramnios and suspected ROM, patient started on magnesium bolus and steroids. Patient is a GDMA1 with Dexcom in place, currently 111. Her highest was 140 last night. Patient does have history of diagnostic laparoscopic for endometriosis. Otherwise, medically uncomplicated. Patient is breech on US today. OB History 3 Para Term AB 2 Living SAB 2 IAB Ectopic Multiple Live Births Estimated Due Date: Estimated Date of Delivery: 05/18/24 REVIEW OF SYSTEMS: Pertinent items are noted in HPI. APPEARANCE: Pain: no PHYSICAL EXAM: Vital Signs: VS wnl-reviewed/Respirations normal effort Vitals: 03/06/24 1710 03/06/24 1715 03/06/24 1720 03/06/24 1725 BP: Pulse: 111 109 107 106 Resp: Temp: SpO2: Weight: Height: Speculum Exam: pooled fluid appearing clear heart rate: Category I Cervix: visually closed Membranes: Ruptured clear fluid BSUS: breech presentation IMPRESSION: Leaking fluid-ROM,clear DISCUSSED WITH PNC PROVIDER: Dr. Mancia DISPOSITION: Admit to L&D Associated attestation - Saumya Mancia MD - 03/06/2024 6:43 PM EDT MFM Patient a direct admission from Transfer from [place]. Please see my other H&P attestation documented in this [facility]09-13-2024 Note* Care Coordination - IRVING Rodriguez - 03/15/2024 1:09 PM EDT Sw consult for help with housing while baby in NICU, as they live out of town. Met with her and spouse at bedside. They have started process including back ground check and think they have been approved for [facility]. Discussed that they can ask to talk to NICU Sw to finalize details. Mob hoping baby may be able to transfer baby to main nisula. Sw also dicussed her and can stay at bedside. Discussed with NICU Sw who did meet with parents to assist. No further needs anticipated. [employer] [facility] [employer] Phone: [phone]) 761-326909-13-2024 Note* Care Coordination - IRVING Rodriguez - 03/15/2024 1:09 PM EDT Sw consult for help with housing while baby in NICU, as they live out of town. Met with her and spouse at bedside. They have started process including back ground check and think they have been approved for [facility] [employer]. Discussed that they can ask to talk to NICU Sw to finalize details. Mob hoping baby may be able to transfer baby to main campus. Sw also dicussed her and can stay at bedside. Discussed with NICU Sw who did meet with parents to assist. No further needs anticipated. [place] [facility] [employer] Work Phone: 1(364) 372-364809-13-2024 Note* Care Coordination - Amy Connor RN - 03/15/2024 12:25 PM EDT Date: 03/15/2024 Name: Jose Edward : 1995 [facility] Information [place] Patient Information Primary Caregiver: Self Accompanied by/Relationship: S/O;Family Marital Status: Support System: SO/Family Mormon/Cultural Factors: none Activities of Daily Living Communication: See demographics Living Arrangements Current Residence: Private residence Lives With: S/O; Family Support System: S/O; Family Income Information Income Source: Employed Financial Resource Strain How hard is it for you to pay for the very basics like food, housing, medical care and heating? N/A Housing Stability In the last 12 months, was there a time when you did not have a steady place to sleep or slept in ashelter (including now)? No Transportation Needs Has the lack of Transportation kept you from medical appointments? No In the past 12 months, has the lack of transportation kept you from meetings, work, or from gettingthings needed for daily living? No Food Insecurity Within the past 12 months, have you worried that your food would run out before you got the money to buy more? No Stress Do you feel stress - tense, restless, nervous, or anxious, or unable to sleep at night because you mind is troubled all the time? Mood stable Referral To Financial Resources: N/A Community Resources: Admission folder given upon admission to PP Unit Social Work: N/A CLP: N/A Medical Information 28 year old admitted for anhydramnios at 29/4 weeks.PPROM GDMA2. 3 Para 0. delivery. in NICU. Discharge Plan Home or Community Resources: Admission folder given upon admission to PP unit Equipment: N/A Education Given: Discussion on the A. B. C's of safe sleep. Always place your baby on his or her back to sleep, use a firm sleep surface and your baby should not sleep in an adult bed, on a couch or chair. Keep soft objects, toys and loose bedding out of your baby's sleep area. Reviewed depression. It is common to have blues. This is a normal response to many of the hormonalchanges, stress and lack of sleep that go with raising a and physically recovering from thebirth. Don't hesitate to talk to your provider with any concerns. There are resources in your home going booklet. To help prevent germs from spreading to you and your baby, make sure everyone washes t heir hands before they handle your . Avoid crowds, and keep infant away from sick people, anyone who is sick with a cough or fever, including family members. Post- warning signs information reviewed with patient per nurse with discharge Additional Information: Patient is independent and has insurance. She is prepared with her baby supplies. To be discharged to home. Denies any concerns at this time. Mental Health Services: Resources in discharge folder Equipment: Developmental Delay: N/A Children's Services: N/A [id number]* Care Coordination - Amy Connor RN - 03/15/2024 12:25 PM EDT Date: 03/15/2024 Name: Jose Edward : 1995 [facility] Patient Information Primary Caregiver: Self Accompanied by/Relationship: S/O;Family Marital Status: Support System: SO/Family Mormon/Cultural Factors: none Activities of Daily Living Communication: See demographics Living Arrangements Current Residence: Private residence Lives With: S/O; Family Support System: S/O; Family Income Information Income Source: Employed Financial Resource Strain How hard is it for you to pay for the very basics like food, housing, medical care and heating? N/A Housing Stability In the last 12 months, was there a time when you did not have a steady place to sleep or slept in ashelter (including now)? No Transportation Needs Has the lack of Transportation kept you from medical appointments? No In the past 12 months, has the lack of transportation kept you from meetings, work, or from gettingthings needed for daily living? No Food Insecurity Within the past 12 months, have you worried that your food would run out before you got the money to buy more? No Stress Do you feel stress - tense, restless, nervous, or anxious, or unable to sleep at night because you mind is troubled all the time? Mood stable Referral To Financial Resources: N/A Community Resources: Admission folder given upon admission to PP Unit Social Work: N/A CLP: N/A Medical Information 28 year old admitted for anhydramnios at 29/4 weeks.PPROM GDMA2. 3 Para 0. delivery. Infant in NICU. Discharge Plan Home or Community Resources: Admission folder given upon admission to PP unit Equipment: N/A Education Given: Discussion on the A. B. C's of safe sleep. Always place your baby on his or her back to sleep, use a firm sleep surface and your baby should not sleep in an adult bed, on a couch or chair. Keep soft objects, toys and loose bedding out of your baby's sleep area. Reviewed depression. It is common to have blues. This is a normal response to many of the hormonalchanges, stress and lack of sleep that go with raising a and physically recovering from thebirth. Don't hesitate to talk to your provider with any concerns. There are resources in your home going booklet. To help prevent germs from spreading to you and your baby, make sure everyone washes t heir hands before they handle your . Avoid crowds, and keep away from sick people, anyone who is sick with a cough or fever, including family members. Post- warning signs information reviewed with patient per nurse with discharge Additional Information: Patient is independent and has insurance. She is prepared with her baby supplies. To be discharged to home. Denies any concerns at this time. Mental Health Services: Resources in discharge folder Equipment: Developmental Delay: N/A Children's Services: N/A [id number] Obstetrics Note* Note - Melissa Mantilla RN - 03/15/2024 7:00 AM EDT Initial visit with mom. This is mom's first baby, delivered at 30 6/7 weeks. [place] ( [facility] [place] Nurse has mom set up with hospital electric pump. Mom confident in settings and cleanings. Fitted mom with 22.5 flanges as 25mm were to big, causing nippleswelling. Instructed on hand expression-assisted with collecting drops onto swabs. Breast pump use indicated for this pt. Due to: Hospital breast pump, supplies kit, swabs and colostrum collectors provided and set up for patient at the bedside. Instruction given on pump operation, settings, technique and frequency/duration. Return demonstration given by patient. Observation of pumping session and flange fitting done. Mom instructed to double pump every 2-3 hours for 8-10 times per day with at least one pump session between 12 and 6 AM. Suction to be set for comfort but recommend between 20-60%. Reassured patient that it is normal to not collect any significant amounts of breast milk in the first days of pumping, but consistent pumping is important and typically results in increased milk production. Discussed projectedamounts and daily goals. Reviewed breast massage and hand expression for increasing milk production. Reviewed colostrum collectors and swabs- how to use and collect colostrum and label swabs/syringes. Breast milk storage guidelines reviewed. Cleaning of pump parts reviewed and basin, soap and clean towels provided for this purpose. Encouraged skin to skin as soon as baby's condition is stable. Discussed plans for home electric breast pump- [facility].All questions answered. Will continue to monitor, encourage and support patient. [id number] Hospital Discharge instructions* Discharge Instructions* Marcela Rapp PA-C - 03/15/2024 5:22 AM EDT Images from the original note were not included. Thank you for allowing us to care of you at [facility]. This time can be one of many emotional ups and downs and many changes in your life. In these first weeks try to take good care of yourself because you will likely feel very tired. It may take 4 to 6 weeks to feel like yourself again, and possibly longer if you had a . FOLLOW-UP: Your follow-up care is a alexandre part of your treatment and safety. Follow-up with your OB providerin 4weeks or as specified by your OB provider. If you had high blood pressure, visit your OB provider within 3-5 days after being home. Most women's blood pressure will return to pre- levels after delivery. However, some patients continueto have problems with their blood pressure, and some even get worse. Very high blood pressure can lead to seizures or stroke which can be life threatening. If ordered by your provider, take your blood pressure at home and call your OB provider if you have a high reading. Your OB provider can write you a prescription for a blood pressure monitor if you do not have one. Be sure to make and go to all appointments, and call your OB provider if you are having problems. It's also a good idea to know your test results and keep a list of the medicines you take. BLEEDING Vaginal bleeding will decrease in amount over the next few weeks. Bleeding may pick pulling machine tender and then decrease again around 7-10 days . Use pads instead of tampons for the bloody flow that may last as long as 2 weeks. You will notice that as your activity increases, your flow may increase. Call your provider if you are saturating one maxi pad in an hour & passing large clots for 3 hours or more. ACTIVITY NO SEXUAL activity for 6 weeks or until advised by your OB provider; Nothing in vagina: intercourse, tampons, or douching. Begin to think about your reproductive life plan. Talk to your OB provider about if and when you would like to get in the future. The recommendation for safe pregnancyspacing is 18-24 months. Showering is okay; NO tub baths, swimming, or hot tubs. Gradually increase your activity. Resume exercise regimen only after advised by your )OB provider. Avoid lifting anything heavier than ten pounds or a gallon of milk for six weeks. Avoid driving 1 week for vaginal delivery and 2 weeks for section, or longer if you are onprescription pain medicine unless otherwise instructed by your OB provider. Rise slowly from a lying to sitting and then a standing position. Climb stairs carefully. You may feel tired or have a lack of energy. You may continue your vitamin to replenish nutrients post-delivery. Nap when whenever you can to catch up on sleep. EMOTIONS You may feel hugo, sad, teary, & overwhelmed for the first 2 weeks ; however, feelings of depression may occur any time within the first year after delivery. Contact your OBprovider if you feel you may be showing signs of depression, or have thoughts of harmingyourself or or anyone.. WOUND CARE For Vaginal Delivery: Shower daily, and cleanse your perineum (bottom) with mild soap from front to back. Use the plasticsquirt bottle until bleeding stops each time you use the restroom instead of wiping with toilet paper. Ease soreness of hemorrhoids and the area between your vagina and rectum with ice compresses or witch laly pads. If used, stitches will dissolve in 4-6 weeks on their own. You may use a sitz bath or soak in a clean tub with drain open and water running for comfort. Kegel exercises will help restore bladder control. To do these tighten your muscles as if you were stopping your urine flow. Hold for a few seconds and then relax. Do these throughout the day. For Section Delivery: Keep your incision clean and dry. If you had steri-strips you may remove these once they start falling off. If you have yanira they need to be removed 3-10 daysafter delivery. If you have steri-strips, remove after 7 - 10 days. Do not wear clothing that irritates the incision line. If your incision is in a crease that is not dry, use a hair-dryer to dry the area 3 times a day. If you develop fever, shaking chills, redness, swelling, drainage or discharge from your wound, or if your wound looks like it is coming apart call your provider immediately. BREAST CARE If you develop a warm, red, tender area on your breast or develop a fever contact your OB provider.If your breasts become engorged ask your provider because treatment can vary according to your needs. DIET & CONSTIPATION Eat a well-balanced diet focusing on foods high in fiber and protein such as: whole grain cereals and breads, fruits and vegetables and legumes (eg, beans, lentils) Drink 8-10 glasses of fluids daily, especially water. Limit caffeine. To avoid constipation you may take a mild [id number] stool softener (such as colace) as recommended by your OB provider. SWELLING Try to keep your legs elevated when you are sitting or lying down. Stay hydrated and take walks. If you had high blood pressure, weigh yourself at the same time each day. Write down your weight and take the record to your OB provider appointment. MEDICATIONS Take all medications prescribed for you exactly as ordered. Don't take any drugs not prescribed to you or over the counter medicines unless recommended by yourprovider. Don't smoke. WHEN TO CALL THE OB PROVIDER Signs of infection, including fever and chills Increased bleeding: soaking more than one pad an hour or passing clots the size of an egg or larger. Wounds that become red, swollen or drain pus Vaginal discharge that smells foul New pain, swelling, or tenderness in your legs Pain that you can't control with the medications you've been given Pain, burning, urgency or frequency of urination, or persistent bleeding in the urine Cough, shortness of breath, or serious difficulty catching your breath Chest pain or pain in the upper right area of your belly Headache (very painful) or vision changes like blurry or double vision, seeing spots or 'auras' Swelling that is worse or weight gain of more than 3 pounds in 3 days Depression, suicidal thoughts, or feelings of harming someone else Breasts that are hot, red and accompanied by fever Any cracking or bleeding from the nipple or areola (the dark-colored area of the breast) SAVE YOUR LIFE: Get Care for these POST- Warning Signs: Call 911 if you have: Pain in chest Obstructed breathing or shortness of breath Seizures Thoughts of hurting yourself or your baby Call your healthcare provider if you have: (if you can't reach your healthcare provider, call 911 or go to an emergency room) Bleeding, soaking through one pad/hour, or blood clots the size of an egg or bigger Incision that is not healing Red or swollen leg, that is painful or warm to touch Temperature of 100.4 F or higher Headache that does not get better, even after taking medicine, or bad headache with vision changes. Contact your healthcare provider and tell them: I delivered on and I am having ____(specific warning signs) In case of an emergency, call 911 immediately. documented in this [facility]09-13-2024 Nurse Note* Yaritza Sanford RN - 03/15/2024 12:04 AM EDT At 2320, this RN secure messaged the OB residents to ask if they would like a blood sugar tonight since patient's blood sugar was 249 after dinner and received 4 units of Humalog around 1900. Dr. Duarte stated that was a good idea to check patient's blood sugar since her blood sugar was high. Informed Dr. Duarte that patient is currently down in NICU, but should be coming back up shortly and will obtain blood sugar then. At 2355, notified Dr. Duarte that patient's blood sugar was 217, and that patient would like to eat a slice of pizza tonight before bed. Dr. Duarte stated patient should not eat any carbohydrates until patient's blood sugar is less than 200. She also changed patient's diet order to carb control. This RN spoke again with patient, and expressed the doctors concerns about not getting an accurate fasting blood sugar in the morning. Patient receptive, and stated she will not eat anything tonight.Patient voiced that she was drinking body armor and stated she will not drink that anymore, insteadshe will just drink water. Informed patient that Dr. Duarte put in for 4 units of Humalog. Patient voiced understanding and agreeable. [facility] [id number] Note* Significant Event - Savanah Duarte DO - 03/14/2024 6:59 PM EDT 1hr pp 249. Discussed with Dr. Mancia. Will give 4u. Savanah Duarte DO 03/14/2024 6:59 PM Came back from [facility] and had eaten. Now 217. Will not eat further. Will give 4u. Advised on fasting BGT in the morning. Aware not to eat further for true fast in Am. Changed to CCD Savanah DuarteDO 03/15/2024 12:07 AM [employer] Phone: 1(257) 646-863009-12-2024 Note* Significant Event - Savanah Duarte DO - 03/14/2024 6:59 PM EDT 1hr pp 249. Discussed with Dr. Mancia. Will give 4u. Savanah Duarte DO 03/14/2024 6:59 PM Came back from [facility] and had eaten. Now 217. Will not eat further. Will give 4u. Advised on fasting BGT in the morning. Aware not to eat further for true fast in Am. Changed to [facility] Savanah DuarteDO 03/15/2024 12:07 AM [employer] Phone: 1(421) 945-457709-12-2024 NotePatient: Jose Edward Procedure Summary Date: 03/14/24 Room / Location: [address] Labor and Delivery Anesthesia Start: 1113 Anesthesia Stop: 1248 Procedure: DELIVERY (Abdomen) Diagnosis: 30 weeks gestation of Surgeons: Maria Dolores Gordillo DO Responsible Provider: Antonio Maria MD Anesthesia Type: regional, spinal ASA Status: 2 - Emergent Anesthesia Type: regional, spinal Vitals Value Taken Time BP 110/62 03/14/24 1251 Temp 36.4 ?C (97.5 ?F) 03/14/24 1251 Pulse 101 03/14/24 1251 Resp 16 03/14/24 1251 SpO2 100 % 03/14/24 1251 Anesthesia Post Evaluation Patient location during evaluation: PACU Patient participation: complete - patient participated Level of consciousness: awake and alert Pain management: satisfactory to patient Airway patency: patent Dental Injury: no Cardiovascular status: acceptable, blood pressure returned to baseline and hemodynamically stable Respiratory status: acceptable and spontaneous ventilation Hydration status: euvolemic Nausea/Vomiting: controlled No notable events documented. Patient can be discharged once all PACU criteria has been met.[facility] [id number] NotePatient: Jose Edward Procedure Summary Date: 03/14/24 Room / Location: [address] Labor and Delivery Anesthesia Start: 1113 Anesthesia Stop: 1248 Procedure: DELIVERY (Abdomen) Diagnosis: 30 weeks gestation of Surgeons: Maria Dolores Gordillo DO Responsible Provider: Antonio Maria MD Anesthesia Type: regional, spinal ASA Status: 2 - Emergent Anesthesia Type: regional, spinal Vitals Value Taken Time BP 110/62 03/14/24 1251 Temp 36.4 ?C (97.5 ?F) 03/14/24 1251 Pulse 101 03/14/24 1251 Resp 16 03/14/24 1251 SpO2 100 % 03/14/24 1251 Anesthesia Post Evaluation Patient location during evaluation: PACU Patient participation: complete - patient participated Level of consciousness: awake and alert Pain management: satisfactory to patient Multimodal analgesia pain management approach Airway patency: patent Two or more strategies used to mitigate risk of obstructive sleep apnea Cardiovascular status: acceptable and hemodynamically stable Respiratory status: acceptable Hydration status: acceptable No notable events documented. MIPS #430 PONV Patient did not receive an inhalational anesthetic (XX430) MIPS # 424 Perioperative Temperature Management Anesthesia time was 60 minutes or longer (4255F) Anesthesai administered was General (inhalational or TIVA) or Neuraxial block (X0424) At least one body temperature greater than 95.8F/35.5C achieved within the 30 mins immediately prior to or the 15 minutes immediately following anesthesia end time (G9771) MIPS #477 Multimodal Pain Management Emergent case Exlusion- Stop here (M1142) MIPS #404 Anesthesiology Smoking Abstinence The patient is not a current smoker (e.g. cigarette, cigar, pipe, e-cigarette/vaping/marijuana) If no stop here (XX404) I completed my handoff to the receiving clinician during which we: 1. Identified the patient 2. Identified the responsible provider 3. Reviewed the pertinent medical history 4. Discussed the surgical course 5. Reviewed intra-op anesthesia management and issues during anesthesia 6. Set expectations for post-procedure period 7. Allowed opportunity for questions and acknowledgement of understanding.[facility]09-12-2024 NotePeripheral Block Time Out: 03/14/2024 12:37 PM Patient location during procedure: Procedural Start time: 03/14/2024 12:38 PM End time: 03/14/2024 12:40 PM Reason for block: at surgeon's request and post-op pain management Staffing Performed: [employer]VATING [employer]OR Anesthesiologist: Antonio Maria MD Resident/EXCAVATING CONTRACTOR: PAULIE Clements CRNA Preanesthetic Checklist Completed: patient identified, IV checked, site marked, risks and benefits discussed, surgical consent, monitors and equipment checked, pre-op evaluation and timeout performed Region: [place] Primary: TAP (60ml of Bupivacaine 0.375% with dexamethasone 0.01% with epinephrine 1:200,000 divided evenly bilaterally) Peripheral Block Patient position: supine Prep: ChloraPrep Patient monitoring: heart rate, lode miner blasting and continuous pulse ox O2: Room air Laterality: bilateral Injection technique: single-shot Guidance: ultrasound guided -image retained in chart, tip of the needle identified by ultraound during injection. Needle Needle: 21G X 110 mm Additional Notes 30 ml per side03/14/2024 12:38 PM Assessment Injection assessment: negative aspiration for heme, no paresthesia on injection, incremental injection and local visualized surrounding nerve on ultrasound Paresthesia pain: none Heart rate change: no Slow fractionated injection: yes Required Documentation: Relevant anatomy identified (Nerves, Vessels, Muscles), Negative for blood on aspiration, Local anesthetic injected incrementally with intermittent aspiration every 5 mL, No EKG changes noted, No symptoms of toxicity, Local anesthetic spread visualized around nerves or plane., Normal resistance with injection, No paresthesias reported by patient during injection and Local anesthetic injected without difficultyMedications ocyKJXQUdjwsc-jyszavfhnuf-yilwvbryrkm (TAP) syringe - Injection 60 mL - 03/14/2024 12:38:00 [facility]09-12-2024 NoteSpinal Block Time Out: 03/14/2024 11:17 AM Patient location during procedure: OB Start time: 03/14/2024 11:18 AM End time: 03/14/2024 11:20 AM Reason for block: primary anesthetic Staffing Performed: EXCAVATING CONTRACTOR Anesthesiologist: Antonio Maria MD Resident/EXCAVATING CONTRACTOR: PAULIE Clements CRNA Preanesthetic Checklist Completed: patient identified, IV checked, site marked, risks and benefits discussed, surgical consent, monitors and equipment checked, pre-op evaluation and timeout performed Spinal Block Patient position: sitting Prep: ChloraPrep Sterility prep: drape Sedation level: no sedation Approach: midline Location: L4-5 Injection technique: single-shot Needle Needle gauge: 24 G Medications Administered bupivacaine in dextrose (Marcaine Spinal) 0.75-8.25 % injection - Intrathecal 12 mg - 03/14/2024 11:20:00 AM morphine PF (Duramorph) 0.5 MG/ML injection - Intrathecal 150 mcg - 03/14/2024 11:20:00 AM Assessment Sensory level: T4 Number of attempts: [address] [place], [place] [id number] NotePatient: Jose Edward Procedure Information Date/Time: 03/14/24 1100 Procedure: DELIVERY (Abdomen) Location: [address] Labor and Delivery Surgeons: Maria Dolores Gordillo, Relevant Problems No relevant active problems Clinical information reviewed: Tobacco Allergies Meds Fam Hx Physical Exam Airway Mallampati: III TM distance: <3 FB Neck ROM: full Mouth Open: normal Cardiovascular - normal exam Dental dentition normal Pulmonary - normal exam Abdominal Anesthesia Plan patient is NPO appropriate Any family history or previous problems with anesthesia no ASA 2 - emergent regional and spinal Any family history or previous problems with anesthesia no The patient is not a current smoker. Anesthetic plan and risks discussed with patient. Use of blood products discussed with who consented to blood products. Additional Equipment [facility]09-12-2024 Nurse Note* Yara Chinchilla RN - 03/14/2024 8:27 AM EDT Pt reports spotting on her pad and upon assessing urine found a few red specks in her urine [facility] [id number] Nurse Note* Venessa Gold RN - 03/14/2024 6:[address] Nguyen made aware that pt was just up to restroom and had a quarter size mucousy, bloody clot into toilet. No active bleeding noted. No change to plan of care at this time [facility] CenterYanikl70-26-2586 Nurse Note* Venessa Gold RN - 03/14/2024 4:53 AM EDT Pt made aware that order for nothing to eat or drink has been ordered by Dr. Duarte. She states understanding. I made her aware that I will be starting IV fluids also. [facility] CenterZmsbyn48-93-1812 Note* Significant Event - Savanah Duarte DO - 03/13/2024 11:22 PM EDT Images from the original note were not included. Notified of BGT of 230. Discussed with Dr. Au and will order 6u log with meals and 6u nph nightly. Will give 6u now. Called by RN to assess patient for possible pressure. Patient reports that she feels intermittent pressure. Its not painful. In generalized belly and back. Feeling rare contractions. Denies pain. Reports she's been feeling intermittent pressure throughout admission and this is not different. SSE with pooled clear fluid. Cervix still appears visually closed.Cat I FHT. Again, patient denies contraction pain. Discussed need for NPO if that changed. Will be for magnesium sulfate if pain or concernsfor labor. Will continue to monitor closely. Savanah Duarte DO 03/13/2024 11:23 PM Win[place] more cramping. 1cm dilated. Reportedly was 1cm at jacey. Clear fluid. No fundal tenderness. Contractions noted 10m apart. No pain but felt the pressure. Cat I FHT . Moderate variability. Will make NPO with IVF. Will defer magnesium at this time as I do not think patient is making cervical change and is not uncomfortable. If that changes, will give bolus of magneisum sulfate for neuroprotection. Afebrile. Will advance diet in morning if no futher calls on pain. Keep in CEFM. Savanah Duarte DO 03/14/2024 4:09 AM [facility] CenterOvymxe19-31-3724 Note* Significant Event - Savanah Duarte, DO - 03/13/2024 11:22 PM EDT Images from the original note were not included. Notified of BGT of 230. Discussed with Dr. Au and will order 6u log with meals and 6u nph nightly. Will give 6u now. Called by RN to assess patient for possible pressure. Patient reports that she feels intermittent pressure. Its not painful. In generalized belly and back. Feeling rare contractions. Denies pain. Reports she's been feeling intermittent pressure throughout admission and this is not different. SSE with pooled clear fluid. Cervix still appears visually closed.Cat I FHT. Again, patient denies contraction pain. Discussed need for NPO if that changed. Will be for magnesium sulfate if pain or concernsfor labor. Will continue to monitor closely. Savanahmaricel Duarte DO 03/13/2024 11:23 PM [place] more cramping. 1cm dilated. Reportedly was 1cm at jacey. Clear fluid. No fundal tenderness. Contractions noted 10m apart. No pain but felt the pressure. Cat I FHT . Moderate variability. Will make NPO with IVF. Will defer magnesium at this time as I do not think patient is making cervical change and is not uncomfortable. If that changes, will give bolus of magneisum sulfate for neuroprotection. Afebrile. Will advance diet in morning if no futher calls on pain. Keep in CEFM. Savanah Duarte DO 03/14/2024 4:09 AM [facility] CenterFqpakg10-62-7273 Note* Care Coordination - Amy Connor RN - 03/13/2024 2:48 PM EDT Hospital day 8 at 30/4 weeks. PPROM. Voiced no needs or concerns. [facility] CenterSxwizs73-34-6241 Note* Care Coordination - Amy Connor RN - 03/13/2024 2:48 PM EDT Hospital day 8 at 30/4 weeks. PPROM. Voiced no needs or concerns. [facility] CenterWqfqja22-60-7058 Plan of care note* Care Plan - Rosio Woodruff RN - 03/13/2024 6:37 AM EDT The patient is Moderately Stable - Low risk of patient condition declining or worsening The patient's goals for the shift include remain The clinical goals for the shift include remain afebrile [facility] CenterEmssvy51-67-7918 Plan of care note* Care Plan - Rosio Woodruff RN - 03/13/2024 6:37 AM EDT The patient is Moderately Stable - Low risk of patient condition declining or worsening The patient's goals for the shift include remain The clinical goals for the shift include remain afebrile [facility] CenterEhxywx77-36-5576 Consult note* Paola Cole MD - 03/12/2024 2:58 PM EDTAssociated Order(s): IP CONSULT TO NEONATOLOGY Consult by Neonatology Request by OB: Dr. Au Reason for Consult: PPROM, currently 30wks GA (?ROM x 3 weeks) Maternal History and current problem: PPROM, GDMA1, endometriosis Significant history: above Medications: latency atbx, mag Betamethasone given: 03/06- Labs: Blood type: O+ Antibody: neg GBS: neg Hepatitis B Ag: RPR: Rubella: HIV: Hepatitis C: GC/CT: neg HSV history: CF: Glucose challenge test: GMA1 Present for Consult: Mom, FOB by phone Baby Sex: male Baby Name: Josue US findings: breech, anhydramnios EFW: 1412g at 29+5 I discussed: Survival statistics Delivery room management: Delayed cord clamping, possible need for CPAP, Oxygen, intubation and surfactant. IV access, possible need for advanced resuscitation, possible need for umbilical lines. Baby is a full resuscitation. Respiratory distress syndrome, risk of pulmonary hypoplasia given PPROM since ?27wks Feeding with NG tube and benefit of MBM. Mom plans on providing MBM. Fortification of MBM. Feeding readiness and growth expectations, Risk of Necrotizing enterocolitis Jaundice and phototherapy Apnea of prematurity and caffeine Possible need for transfusion Heart Murmur: PDA Neurodevelopmental Outcome and Risk: IVH Retinopathy of prematurity Hearing problems Risk of infection- early and late onset Skin to skin opportunities Physiologic criteria for discharge and timing of discharge estimate from NICU Potential need for transfer to [facility] if needs esclation of care, based on a varietyof factors. Handouts given. No further questions. A/P: Patient is a 28 Year old G1 P 0 At 30 Weeks 3 Days by IVF dating With PPROM 1. Current Management per OB 2. NICU to attend delivery 3. Call NICU if further questions. Family lives approx 1.5hrs away. Mom notified me she has already submitted an application to [employer] in order to be closer for baby Josue after she delivers/is discharged. Paola Cole MD [employer] Phone: [phone]) [phone] Consult note* Paola Cole MD - 03/12/2024 2:58 PM EDTAssociated Order(s): IP CONSULT TO NEONATOLOGY Consult by Neonatology Request by OB: Dr. Au Reason for Consult: PPROM, currently 30wks GA (?ROM x 3 weeks) Maternal History and current problem: PPROM, GDMA1, endometriosis Significant history: above Medications: latency atbx, mag Betamethasone given: 03/06- Labs: Blood type: O+ Antibody: neg GBS: neg Hepatitis B Ag: RPR: Rubella: HIV: Hepatitis C: GC/CT: neg HSV history: CF: Glucose challenge test: GMA1 Present for Consult: Mom, FOB by phone Baby Sex: male Baby Name: Josue US findings: breech, anhydramnios EFW: 1412g at 29+5 I discussed: Survival statistics Delivery room management: Delayed cord clamping, possible need for CPAP, Oxygen, intubation and surfactant. IV access, possible need for advanced resuscitation, possible need for umbilical lines. Baby is a full resuscitation. Respiratory distress syndrome, risk of pulmonary hypoplasia given PPROM since ?27wks Feeding with NG tube and benefit of MBM. Mom plans on providing MBM. Fortification of MBM. Feeding readiness and growth expectations, Risk of Necrotizing enterocolitis Jaundice and phototherapy Apnea of prematurity and caffeine Possible need for transfusion Heart Murmur: PDA Neurodevelopmental Outcome and Risk: IVH Retinopathy of prematurity Hearing problems Risk of infection- early and late onset Skin to skin opportunities Physiologic criteria for discharge and timing of discharge estimate from NICU Potential need for transfer to [facility] if needs esclation of care, based on a varietyof factors. Handouts given. No further questions. A/P: Patient is a 28 Year old G1 P 0 At 30 Weeks 3 Days by IVF dating With PPROM 1. Current Management per OB 2. NICU to attend delivery 3. Call NICU if further questions. Family lives approx 1.5hrs away. Mom notified me she has already submitted an application to [employer] in order to be closer for baby Josue after she delivers/is discharged. Paola Cole MD documented in this [facility]09-09-2024 Obstetrics Note* Note - Cheryl Marinelli RN - 03/11/2024 5:00 PM EDT In to visit patient-expected with NICU admission. Reviewed importance of mothers own milk for baby and physiology of milk production. Discussed need for early and frequent hand expression and pumping. Importance of skin to skin when baby is stable. Encouraged manual expression of colostrum onto swabs, while in recovery room. Encouraged patient to ask RN for electric pump on admission to M/B unit. Discussed options for home going pump; pt has [employer] insurance. Availability of LC for NICU and reviewed. [facility] handout Your NICU Baby given and reviewed. Encouraged to watch videos from [employer] to support her goals. Resource numbers given for [facility] dept and [facility] [employer] dept. Encouraged to call with any questions / concerns. Pt receptive to my visit and education. Denies questions at this time. [facility] [id number] Note* Care Coordination - Amy Connor RN - 03/11/2024 4:10 PM EDT Hospital day 6 at 30/2 weeks. Anhydramnios PPROM at 30/2 weeks referral. Voiced no needs or concerns. [facility] [id number] Note* Care Coordination - Amy Connor RN - 03/11/2024 4:10 PM EDT Hospital day 6 at 30/2 weeks. Anhydramnios PPROM at 30/2 weeks referral. Voiced no needs or concerns. [facility] CenterLvxrhs18-97-3870 NoteNutrition Assessment Type and Reason for Visit: Initial (DT referral - gestational DM) Nutrition Recommendations/Plan: Continue diet & encourage po intake. Monitor need for snacks/supplements. Recommend record po intake in I/O flowsheet to monitor. RD will follow weekly. Malnutrition Assessment: Malnutrition Status: Insufficient data Nutrition Assessment: 28 y.o. 30w1d. Patient reports LOF for about 3 weeks; US at outside facility showed anhydramnios; ROM rule out was deferred in [place] secondary to blood noted; transported to [facility]. In triage, SSE showed gross rupture of membranes with nitrazine positive, ferning negative and visually closed. Admitted for further observation with latency antibiotics and steroids. Plan for delivery at 34 weeks or if indicated sooner for labor, infection, or NRFS. GDMA1 - Carb-controlled diet. Dexcom in place. Continue to monitor BGTs fasting and 1 hour pp. Received 5 units of Humalog twice overnight on 03/06. BGTs overnight elevated, consider adding dinner log. Nutrition Related Findings: Glucose (03/09) 91/139/94/172/177 mg/dL, Glucose today 89 mg/dL. Medications reivewed. Generalized edema, Narayan 23, GI WDL, BM 03/09. Gestational Diabetes diet 30-45-60 gm CHO/meal). Wound Type: None Current Nutrition Therapies: Adult diet Regular; Gestational (30-45-60 gm/meal) Current Oral Intake Average Meal Intake: Unable to assess Average Supplements Intake: None Ordered Anthropometric Measures: Height: 157.5 cm (5' 2) Current Body Weight: 85.3 kg (188 lb) (03/06) Weight Source: Not Specified [place] Body Weight (lbs) (Calculated): 110 lbs [place] Body Weight (Kg) (Calculated): 50 kg % [place] Body Weight (Calculated): 170.9 % BMI (kg/m2) (Calculated): 34.4 Weight Adjustment For: No Adjustment BMI Categories: Obese Class 1 (BMI 30.0-34.9) Nutrition Diagnosis: Increased nutrient needs related to increase demand for energy/nutrients as evidenced by () Nutrition Interventions: Nutrition Education/Counseling: No recommendation at this time Coordination of Nutrition Care: Continue to monitor while inpatient Goals: Goals: PO intake 75% or greater, other (specify) Specify Other Goals: BG levels well controlled Nutrition Monitoring and Evaluation: Behavioral-Environmental Outcomes: None Identified Food/Nutrient Intake Outcomes: Food and Nutrient Intake Physical Signs/Symptoms Outcomes: Biochemical Data, GI Status, Fluid Status or Edema, Nutrition Focused Physical Findings, Weight Discharge Planning: Too soon to determine Joanne Adame RD Contact: [employer] or *[address] [place], [place] [id number] Note* Care Coordination - Julianna Martinez RN - 03/08/2024 3:44 PM EDT Hospital Day 3; 29/6 weeks today; No concerns at this time; Pt states she is interested in the possibility of staying at the [facility] after delivery due to living approx. 2 hours away; patient and provided background check paperwork; will be faxed to [facility] referral line; Will consult for patient as pt would like to see prior to delivery [id number]* Care Coordination - Julianna Martinez RN - 03/08/2024 3:44 PM EDT Hospital Day 3; 29/6 weeks today; No concerns at this time; Pt states she is interested in the possibility of staying at the [facility] after delivery due to living approx. 2 hours away; patient and provided background check paperwork; will be faxed to [facility] referral line; Will consult for patient as pt would like to see prior to delivery [facility] [id number] Note* Care Coordination - Amy Connor RN - 03/07/2024 10:58 AM EDT Date: 03/07/2024 Name: Jose Edward : 1995 [facility] Information [place] - transport Patient Information Primary Caregiver: Self Accompanied by/Relationship: S/O;Family Marital Status: Support System: SO/Family Mormon/Cultural Factors: Activities of Daily Living Communication: See demographics Living Arrangements Current Residence: Private residence Lives With: S/O; Family Support System: S/O; Family Income Information Income Source: Employed Financial Resource Strain How hard is it for you to pay for the very basics like food, housing, medical care and heating? N/A Housing Stability In the last 12 months, was there a time when you did not have a steady place to sleep or slept in ashelter (including now)? No Transportation Needs Has the lack of Transportation kept you from medical appointments? No In the past 12 months, has the lack of transportation kept you from meetings, work, or from gettingthings needed for daily living? No Food Insecurity Within the past 12 months, have you worried that your food would run out before you got the money to buy more? No Stress Do you feel stress - tense, restless, nervous, or anxious, or unable to sleep at night because you mind is troubled all the time? Mood stable Referral To Financial Resources: N/A Community Resources: PNU folder given upon admission to PNU Unit Social Work: N/A CLP: N/A Medical Information 28 year old admitted for anhydramnios at 29/4 weeks. 3 Para 0. Suspected PROM. GDMA1. Discharge Plan Home or Community Resources: PNU Admission folder given upon admission to unit Equipment: N/A Education Given: PNU admit folder and see Education Tab Additional Information: N/A Mental Health Services: N/A Developmental Delay: N/A Children's Services: N/A [id number] [facility]* Care Coordination - Amy Connor RN - 03/07/2024 10:58 AM EDT Date: 03/07/2024 Name: Jose Edward : 1995 [facility] Information [place] - transport Patient Information Primary Caregiver: Self Accompanied by/Relationship: S/O;Family Marital Status: Support System: SO/Family Mormon/Cultural Factors: Activities of Daily Living Communication: See demographics Living Arrangements Current Residence: Private residence Lives With: S/O; Family Support System: S/O; Family Income Information Income Source: Employed Financial Resource Strain How hard is it for you to pay for the very basics like food, housing, medical care and heating? N/A Housing Stability In the last 12 months, was there a time when you did not have a steady place to sleep or slept in ashelter (including now)? No Transportation Needs Has the lack of Transportation kept you from medical appointments? No In the past 12 months, has the lack of transportation kept you from meetings, work, or from gettingthings needed for daily living? No Food Insecurity Within the past 12 months, have you worried that your food would run out before you got the money to buy more? No Stress Do you feel stress - tense, restless, nervous, or anxious, or unable to sleep at night because you mind is troubled all the time? Mood stable Referral To Financial Resources: N/A Community Resources: PNU folder given upon admission to PNU Unit Social Work: N/A CLP: N/A Medical Information 28 year old admitted for anhydramnios at 29/4 weeks. 3 Para 0. Suspected PROM. GDMA1. Discharge Plan Home or Community Resources: PNU Admission folder given upon admission to unit Equipment: N/A Education Given: PNU admit folder and see Education Tab Additional Information: N/A Mental Health Services: N/A Developmental Delay: N/A Children's Services: N/A [facility] [id number] Nurse Note* Raegan Estrada RN - 03/07/2024 4:47 AM EDT RN called to bedside at 0435, pt reporting feeling increased leakage of fluid. Denies cramping, contractions, or pain, but does state feeling pressure which has become more constant. Dr Boles aware. Pt instructed to notify RN immediately if pressure intensifies or if cramping / contractions occur. [facility] [id number] History and physical note* Juliana Nguyen DO - 03/06/2024 5:26 PM EDT Department of Maternal Medicine History and Physical CHIEF COMPLAINT: Anhydramnios HISTORY OF PRESENT ILLNESS: The patient is a 28 y.o. female at 29w4d. OB History 3 Para Term AB 2 Living SAB 2 IAB Ectopic Multiple Live Births Patient presents with a chief complaint as above and is being admitted for observation and BMZ + Magnesium. Patient reports she has been leaking for 3 weeks now. She was evaluated in [place] initially at that time with amnisure that was negative. She continued to have leakage. US today showed anhydramnios. Patient also noted to have a UTI and was prescribed macrobid. Due to anhydramnios and suspected ROM, patient started on magnesium bolus and steroids. Patient is a GDMA1 with Dexcom in place, currently 111. Her highest was 140 last night. Patient does have history of diagnostic laparoscopic for endometriosis. Otherwise, medically uncomplicated. Patient is breech on US today. Transport: Yes, from [place] Prior Hospitalizations: No Estimated Due Date: Estimated Date of Delivery: 05/18/24 CARE: Complications: See below PAST OB HISTORY: OB History 3 Para Term AB 2 Living SAB 2 IAB Ectopic Multiple Live Births Detailed OB History G1-2 SAB G3 Current Past Medical History: Past Medical History: Diagnosis Date Anxiety Asthma as child-exercise induced Depression Female infertility Gestational diabetes Polycystic ovary syndrome Past Surgical History: Past Surgical History: Procedure Laterality Date HYSTEROSCOPY TONSILLECTOMY (HISTORICAL) Allergies: Zithromax [azithromycin], Effexor [venlafaxine], and Latex Social History: Social History Socioeconomic History Marital status: Not on file Spouse name: Not on file Number of children: Not on file Years of education: Not on file Highest education level: Not on file Occupational History Not on file Tobacco Use Smoking status: Never Smokeless tobacco: Never Vaping Use Vaping status: Former Substance and Sexual Activity Alcohol use: Not Currently Drug use: Never Sexual activity: Not on file Other Topics Concern Not on file Social History Narrative Not on file Social Determinants of Health Financial Resource Strain: Not on file Food Insecurity: Not on file Transportation Needs: Not on file Physical Activity: Not on file Stress: Not on file Social Connections: Not on file Intimate Partner Violence: Not on file Housing Stability: Not on file Family History: No family history on file. Medications Prior to Admission: Medications Prior to Admission Medication Sig Dispense Refill Last Dose diphenhydrAMINE HCl (BENADRYL ALLERGY PO) Take by mouth. 03/05/2024 loratadine (Claritin) 5 MG/5ML solution solution Take by mouth daily. 03/06/2024 naltrexone (Depade) 50 MG tablet Take 3 mg by mouth daily. 03/05/2024 omeprazole (PriLOSEC) [address] capsule Take 10 mg by mouth every morning (before breakfast). Do notcrush or chew. 03/06/2024 MV-Min-Fe Fum-FA-DHA ( 1 PO) Take by mouth. 03/05/2024 REVIEW OF SYSTEMS: Review of Systems Labs: CBC, type and screen pending PHYSICAL EXAM: Vitals: 03/06/24 1706 03/06/24 1710 03/06/24 1715 03/06/24 1720 BP: Pulse: 108 111 109 107 Resp: 18 Temp: 37.1 C (98.7 F) SpO2: 97% Weight: Height: General appearance: awake, alert, cooperative, no apparent distress, and appears stated age Neurologic: Awake, alert, oriented to name, place and time. Lungs: No increased work of breathing, good air exchange Abdomen: Soft, non tender, gravid, consistent with her gestational age Sterile Speculum Exam: Membranes: Ruptured clear fluid HSV Lesions: not applicable Cervix: visually closed Contraction frequency: irritable Fetus: Presentation: Breech by U/S NST: Reactive BPP: Not Performed ASSESSMENT AND PLAN: LABOR DELIVERY ??? SCD's ONLY (labor through ambulation) SCD's PLUS Prophylactic Anticoagulation until discharge SCD's PLUS Prophylactic Anticoagulation for 6 weeks SCD's PLUS Therapeutic Anticoagulation for 6 weeks Vaginal Delivery [] BMI ? 40 kg/m2 Delivery All patients Vaginal Delivery [] BMI ? 40 kg/m2 AND [] Antepartum hospitalization ? 72 hours within the past month Delivery 1 Major Risk Factor: [] BMI ? 35 kg/m2 [] Low Risk Thrombophilia [] PPH+RBCs, IR, or operation [] Infection+Antibiotics [] Antepartum hospitalization ? 72 hours within the past month [] PMH: Sickle Cell, SLE, Cardiac Dz, Active IBD, Active Cancer, Nephrotic Syndrome OR 2 Minor Risk Factors: [] Multiple gestation [] Age > 40 [] PPH ? 1,000cc [] (+)FMH of VTE [] Smoker [] Preeclampsia [] BMI ? 40 kg/m2 AND [] Low Risk Thrombophilia OR ANY OF THE FOLLOWING: [] High Risk Thrombophilia without prior VTE [] Low Risk Thrombophilia with (+)FMH of VTE [] Any single prior VTE ANY OF THE FOLLOWING: [] Already on LMWH/UFH [] Multiple prior VTE [] High Risk Thrombophilia with prior VTE Low Risk Thrombophilia: FVL (heterozygous), Prothrombin (heterozygous), Protein C, Protein S High Risk Thrombophilia: FVL (homozygous), Prothrombin (homozygous), FVL+Prothrombin (heterozygous), Antithrombin III, APLS VTE Prophylaxis: Not Indicated, SCDs in nonambulatory Admission: Admit to Antepartum (PNU) FHR: Category 1, heart monitoring continuous Labs: GBS collected GC/CT collected Urine collected Type&Screen ordered, but not yet obtained Serum Labs CBC Consults: NICU Imaging: Indicated/ordered Diet: NPO, will advance depending on pattern Testing: TBD Timing and Route of Delivery: TBD Medications: Neuroprotection Indicated/ordered Tocolysis Not indicated Antibiotics Indicated/ordered Steroids: Betamethasone - indicated and ordered Anhydramnios Suspected PROM - Patient reports LOF for about 3 weeks - presented to [place] today complaining of LOF; - US was performed that showed anhydramnios; ROM rule out was deferred in [place] secondary to blood noted - concern for PROM, transported to [facility] - in triage, SSE showed gross rupture of membranes with nitrazine positive, ferning negative and visually closed - Latency Abx ordered, allergy to azithromycin so will proceed with only ampicillin - s/p BMZx1 at 1415 at [place], second dose ordered - magnesium sulfate loading dose given prior to transport, will order continuous infusion at 1g/hr for 12 hours for neuroprotection - CEFM overnight - General carb controlled diet ordered - growth US ordered for tomorrow AM GDMA1 - Carb control diet - has Dexcom in place, share code [id number] - will monitor BGTs fasting and 1 hour pp IUP @ 29w4d - Dating by 1st trimester US - Breech 03/06 - Monitoring: CEFM - Diet: Gestational CCD - BMZ x1 on 03/06 @ [address] Mancia, who agrees with plan. 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 I discussed the assessment and management with the resident physician. I reviewed and agree with the findings and plan as documented in the note. Transferred from [place] for PPROM. 28yo at 29 4/7 weeks presents for PPROM. Gross rupture confirmed on exam with +nitrazine and +ferning. Cervix visually closed and patient overall comfortalbe. Ultrasound at transferring facility with anhydramnios. Breech presentation. Newly diagnosed GDMA1 Will admit for latency antibiotics, BMZ, and mag for neuroprotection. Pattern glucose. CS if for delivery. 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 I discussed the assessment and management with the resident physician. I reviewed and agree with the findings and plan as documented in the note. Transferred from [place] for PPROM. 28yo at 29 4/7 weeks presents for PPROM. Gross rupture confirmed on exam with +nitrazine and +ferning. Cervix visually closed and patient overall comfortalbe. Ultrasound at transferring facility with anhydramnios. Breech presentation. Newly diagnosed GDMA1 Will admit for latency antibiotics, BMZ, and mag for neuroprotection. Pattern glucose. CS if for delivery. Saumya Mancia MD Department of Maternal Medicine History and Physical CHIEF COMPLAINT: Anhydramnios HISTORY OF PRESENT ILLNESS: The patient is a 28 y.o. female at 29w4d. OB History 3 Para Term AB 2 Living SAB 2 IAB Ectopic Multiple Live Births Patient presents with a chief complaint as above and is being admitted for observation and BMZ + Magnesium. Patient reports she has been leaking for 3 weeks now. She was evaluated in [place] initially at that time with amnisure that was negative. She continued to have leakage. US today showed anhydramnios. Patient also noted to have a UTI and was prescribed macrobid. Due to anhydramnios and suspected ROM, patient started on magnesium bolus and steroids. Patient is a GDMA1 with Dexcom in place, currently 111. Her highest was 140 last night. Patient does have history of diagnostic laparoscopic for endometriosis. Otherwise, medically uncomplicated. Patient is breech on US today. Transport: Yes, from [place] Prior Hospitalizations: No Estimated Due Date: Estimated Date of Delivery: 05/18/24 CARE: Complications: See below PAST OB HISTORY: OB History 3 Para Term AB 2 Living SAB 2 IAB Ectopic Multiple Live Births Detailed OB History G1-2 SAB G3 Current Past Medical History: Past Medical History: Diagnosis Date Anxiety Asthma as child-exercise induced Depression Female infertility Gestational diabetes Polycystic ovary syndrome Past Surgical History: Past Surgical History: Procedure Laterality Date HYSTEROSCOPY TONSILLECTOMY (HISTORICAL) Allergies: Zithromax [azithromycin], Effexor [venlafaxine], and Latex Social History: Social History Socioeconomic History Marital status: Not on file Spouse name: Not on file Number of children: Not on file Years of education: Not on file Highest education level: Not on file Occupational History Not on file Tobacco Use Smoking status: Never Smokeless tobacco: Never Vaping Use Vaping status: Former Substance and Sexual Activity Alcohol use: Not Currently Drug use: Never Sexual activity: Not on file Other Topics Concern Not on file Social History Narrative Not on file Social Determinants of Health Financial Resource Strain: Not on file Food Insecurity: Not on file Transportation Needs: Not on file Physical Activity: Not on file Stress: Not on file Social Connections: Not on file Intimate Partner Violence: Not on file Housing Stability: Not on file Family History: No family history on file. Medications Prior to Admission: Medications Prior to Admission Medication Sig Dispense Refill Last Dose diphenhydrAMINE HCl (BENADRYL ALLERGY PO) Take by mouth. 03/05/2024 loratadine (Claritin) 5 MG/5ML solution solution Take by mouth daily. 03/06/2024 naltrexone (Depade) 50 MG tablet Take 3 mg by mouth daily. 03/05/2024 omeprazole (PriLOSEC) [address] capsule Take 10 mg by mouth every morning (before breakfast). Do not crush or chew. 03/06/2024 MV-Min-Fe Fum-FA-DHA ( 1 PO) Take by mouth. 03/05/2024 REVIEW OF SYSTEMS: Review of Systems Labs: CBC, type and screen pending PHYSICAL EXAM: Vitals: 03/06/24 1706 03/06/24 1710 03/06/24 1715 03/06/24 1720 BP: Pulse: 108 111 109 107 Resp: 18 Temp: 37.1 ?C (98.7 ?F) SpO2: 97% Weight: Height: General appearance: awake, alert, cooperative, no apparent distress, and appears stated age Neurologic: Awake, alert, oriented to name, place and time. Lungs: No increased work of breathing, good air exchange Abdomen: Soft, non tender, gravid, consistent with her gestational age Sterile Speculum Exam: Membranes: Ruptured clear fluid HSV Lesions: not applicable Cervix: visually closed Contraction frequency: irritable Fetus: Presentation: Breech by U/S NST: Reactive BPP: Not Performed ASSESSMENT AND (more content not included)...[facility] [id number] History and physical note* Juliana Nguyen, DO - 03/06/2024 5:26 PM EDT Department of Maternal Medicine History and Physical CHIEF COMPLAINT: Anhydramnios HISTORY OF PRESENT ILLNESS: The patient is a 28 y.o. female at 29w4d. OB History 3 Para Term AB 2 Living SAB 2 IAB Ectopic Multiple Live Births Patient presents with a chief complaint as above and is being admitted for observation and BMZ + Magnesium. Patient reports she has been leaking for 3 weeks now. She was evaluated in [place] initially at that time with amnisure that was negative. She continued to have leakage. US today showed anhydramnios. Patient also noted to have a UTI and was prescribed macrobid. Due to anhydramnios and suspected ROM, patient started on magnesium bolus and steroids. Patient is a GDMA1 with Dexcom in place, currently 111. Her highest was 140 last night. Patient does have history of diagnostic laparoscopic for endometriosis. Otherwise, medically uncomplicated. Patient is breech on US today. Transport: Yes, from [place] Prior Hospitalizations: No Estimated Due Date: Estimated Date of Delivery: 05/18/24 CARE: Complications: See below PAST OB HISTORY: OB History 3 Para Term AB 2 Living SAB 2 IAB Ectopic Multiple Live Births Detailed OB History G1-2 SAB G3 Current Past Medical History: Past Medical History: Diagnosis Date Anxiety Asthma as child-exercise induced Depression Female infertility Gestational diabetes Polycystic ovary syndrome Past Surgical History: Past Surgical History: Procedure Laterality Date HYSTEROSCOPY TONSILLECTOMY (HISTORICAL) Allergies: Zithromax [azithromycin], Effexor [venlafaxine], and Latex Social History: Social History Socioeconomic History Marital status: Not on file Spouse name: Not on file Number of children: Not on file Years of education: Not on file Highest education level: Not on file Occupational History Not on file Tobacco Use Smoking status: Never Smokeless tobacco: Never Vaping Use Vaping status: Former Substance and Sexual Activity Alcohol use: Not Currently Drug use: Never Sexual activity: Not on file Other Topics Concern Not on file Social History Narrative Not on file Social Determinants of Health Financial Resource Strain: Not on file Food Insecurity: Not on file Transportation Needs: Not on file Physical Activity: Not on file Stress: Not on file Social Connections: Not on file Intimate Partner Violence: Not on file Housing Stability: Not on file Family History: No family history on file. Medications Prior to Admission: Medications Prior to Admission Medication Sig Dispense Refill Last Dose diphenhydrAMINE HCl (BENADRYL ALLERGY PO) Take by mouth. 03/05/2024 loratadine (Claritin) 5 MG/5ML solution solution Take by mouth daily. 03/06/2024 naltrexone (Depade) 50 MG tablet Take 3 mg by mouth daily. 03/05/2024 omeprazole (PriLOSEC) [address] capsule Take 10 mg by mouth every morning (before breakfast). Do notcrush or chew. 03/06/2024 MV-Min-Fe Fum-FA-DHA ( 1 PO) Take by mouth. 03/05/2024 REVIEW OF SYSTEMS: Review of Systems Labs: CBC, type and screen pending PHYSICAL EXAM: Vitals: 03/06/24 1706 03/06/24 1710 03/06/24 1715 03/06/24 1720 BP: Pulse: 108 111 109 107 Resp: 18 Temp: 37.1 C (98.7 F) SpO2: 97% Weight: Height: General appearance: awake, alert, cooperative, no apparent distress, and appears stated age Neurologic: Awake, alert, oriented to name, place and time. Lungs: No increased work of breathing, good air exchange Abdomen: Soft, non tender, gravid, consistent with her gestational age Sterile Speculum Exam: Membranes: Ruptured clear fluid HSV Lesions: not applicable Cervix: visually closed Contraction frequency: irritable Fetus: Presentation: Breech by U/S NST: Reactive BPP: Not Performed ASSESSMENT AND PLAN: LABOR DELIVERY ??? SCD's ONLY (labor through ambulation) SCD's PLUS Prophylactic Anticoagulation until discharge SCD's PLUS Prophylactic Anticoagulation for 6 weeks SCD's PLUS Therapeutic Anticoagulation for 6 weeks Vaginal Delivery [] BMI ? 40 kg/m2 Delivery All patients Vaginal Delivery [] BMI ? 40 kg/m2 AND [] Antepartum hospitalization ? 72 hours within the past month Delivery 1 Major Risk Factor: [] BMI ? 35 kg/m2 [] Low Risk Thrombophilia [] PPH+RBCs, IR, or operation [] Infection+Antibiotics [] Antepartum hospitalization ? 72 hours within the past month [] PMH: Sickle Cell, SLE, Cardiac Dz, Active IBD, Active Cancer, Nephrotic Syndrome OR 2 Minor Risk Factors: [] Multiple gestation [] Age > 40 [] PPH ? 1,000cc [] (+)FMH of VTE [] Smoker [] Preeclampsia [] BMI ? 40 kg/m2 AND [] Low Risk Thrombophilia OR ANY OF THE FOLLOWING: [] High Risk Thrombophilia without prior VTE [] Low Risk Thrombophilia with (+)FMH of VTE [] Any single prior VTE ANY OF THE FOLLOWING: [] Already on LMWH/UFH [] Multiple prior VTE [] High Risk Thrombophilia with prior VTE Low Risk Thrombophilia: FVL (heterozygous), Prothrombin (heterozygous), Protein C, Protein S High Risk Thrombophilia: FVL (homozygous), Prothrombin (homozygous), FVL+Prothrombin (heterozygous), Antithrombin III, APLS VTE Prophylaxis: Not Indicated, SCDs in nonambulatory Admission: Admit to Antepartum (PNU) FHR: Category 1, heart monitoring continuous Labs: GBS collected GC/CT collected Urine collected Type&Screen ordered, but not yet obtained Serum Labs CBC Consults: NICU Imaging: Indicated/ordered Diet: NPO, will advance depending on pattern Testing: TBD Timing and Route of Delivery: TBD Medications: Neuroprotection Indicated/ordered Tocolysis Not indicated Antibiotics Indicated/ordered Steroids: Betamethasone - indicated and ordered Anhydramnios Suspected PROM - Patient reports LOF for about 3 weeks - presented to [place] today complaining of LOF; - US was performed that showed anhydramnios; ROM rule out was deferred in [place] secondary to blood noted - concern for PROM, transported to [facility] - in triage, SSE showed gross rupture of membranes with nitrazine positive, ferning negative and visually closed - Latency Abx ordered, allergy to azithromycin so will proceed with only ampicillin - s/p BMZx1 at 1415 at [place], second dose ordered - magnesium sulfate loading dose given prior to transport, will order continuous infusion at 1g/hr for 12 hours for neuroprotection - CEFM overnight - General carb controlled diet ordered - growth US ordered for tomorrow AM GDMA1 - Carb control diet - has Dexcom in place, share code [id number] - will monitor BGTs fasting and 1 hour pp IUP @ 29w4d - Dating by 1st trimester US - Breech 03/06 - Monitoring: CEFM - Diet: Gestational CCD - BMZ x1 on 03/06 @ [address] Mancia, who agrees with plan. 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 I discussed the assessment and management with the resident physician. I reviewed and agree with the findings and plan as documented in the note. Transferred from [place] for PPROM. 28yo at 29 4/7 weeks presents for PPROM. Gross rupture confirmed on exam with +nitrazine and +ferning. Cervix visually closed and patient overall comfortalbe. Ultrasound at transferring facility with anhydramnios. Breech presentation. Newly diagnosed GDMA1 Will admit for latency antibiotics, BMZ, and mag for neuroprotection. Pattern glucose. CS if for delivery. Saumya Mancia MD documented in this [facility]04-11-2024 NotePap Smear Specimen AdequacyApril 2023 11:59pmComment.Satisfactory for evaluation. No endocervical component is identified.[facility]AC[facility] A#[id number] HospitalComment on above:Satisfactory for evaluation. No endocervical component is identified.10-12-2023 NotePap Smear Specimen AdequacyApril 2023 11:59pmComment.Satisfactory for evaluation. No endocervical component is identified.[facility] A#[id number]'S Hospital Of ColumbusComment on above:Satisfactory for evaluation. No endocervical component is identified. 09-19-2023 Discharge summary Author Karlos Miller [facility] September 19, 2023 4:24pm Note Date/Time September 19, 2023 12: 23pm [facility] Medical Records Department [address] [place] [address] Emergency Department Summary 09/19/23 MR#: [id number] Acct: [id number] Name: JSOE EDWARD Rep #:[id number] : 1995 28 From: Karlos Sarmiento PCP: CHERYL Samano Status:REG ER Location: ED HPI HPI - Female History of Present Illness Chief Complaint: Vag Bld, Preg Informant: patient Pain Pain: Positive for Pelvic Pain Onset: Today Context: Gradual Onset Timing: Continuous Quality: Positive for Dull and - (Pinching at times) Location: LLQ Worsened by: - (Nothing) Relieved by: - (Nothing) Bleeding Issue: Positive for Vaginal bleeding and Passing clots Onset: Today Context: Gradual Onset Timing: Continuous Current Severity: Mild Associated Symptoms Associated Symptoms: Positive for Frequency; Negative for Dysuria Test: Positive P: 1 Ab: 1 Narrative Narrative: Patient presents with vaginal bleeding and left lower abdominal pain that began today. Patient states that has gradually gotten worse. Patient describes her pain as dull but pinching at times. Patient states nothing makes it better and nothing makes it worse. Patient states she noted some vaginal bleeding today and some small clots. Patient denies passing any tissue. Patient recently underwent procedure for in vitro fertilization. Patient states the procedure was done in [place] but she follows with Dr. Prachi li. [facility] Medical History Abnormal uterine bleeding (AUB) Alcohol use Anxiety Endometrial polyp Heartburn Vapes nicotine containing substance Wears contact lenses Home Medications aspirin 81 mg tablet,delayed release 81 mg PO DAILY 09/08/23 [History Last Taken Unknown] diphenhydramine HCl 25 mg tablet (Benadryl Allergy) 25 mg PO QHS 09/08/23 [History Last Taken Unknown] enoxaparin 30 mg/0.3 mL subcutaneous syringe (Lovenox) 30 mg subcut DAILY 09/08/23 [History Last Taken Unknown] estradiol 2 mg tablet (Estrace) 2 mg PO BID 09/08/23 [History Last Taken Unknown] famotidine 20 mg tablet (Pepcid) 20 mg PO DAILY 09/08/23 [History Last Taken Unknown] loratadine 10 mg tablet (Claritin) 10 mg PO DAILY 09/08/23 [History Last Taken Unknown] metformin 500 mg tablet 500 mg PO DAILY 09/08/23 [History Last Taken Unknown] naltrexone 1.5 mg capsule 3 mg PO 09/08/23 [History Last Taken Unknown] progesterone 50 mg/mL intramuscular oil 50 mg IM DAILY 09/08/23 [History Last Taken Unknown] progesterone micronized 200 mg capsule (Prometrium) 200 mg PO BID 09/08/23 [History Last Taken Unknown] Allergy/AdvReac Type Severity Reaction Status Date / Time azithromycin [From Zithromax] Allergy JOHN Verified 09/19/23 12:16 VIJI'S SYNDROME venlafaxine Allergy Other Verified 09/19/23 12:16 Family History Mother Diabetes Uncle Diabetes Grandmother Diabetes Surgical History History of tonsillectomy and adenoidectomy Hx of lumpectomy S/P D&C (status post dilation and curettage) Social History number of children: 0 current occupational status: employed current occupation: [employer] Smoking Status: Former smoker Electronic Cigarette Use: with nicotine alcohol intake: never substance use type: does not use seatbelt use: always do you feel safe at home: Yes additional social history: - Andrea PHILLIPS ROS ED Constitutional Constitutional ED: Denies chills or fever(s) Eyes Eyes: Denies blurry vision or change in vision ENT ENT ED: Denies rhinorrhea or sore throat Cardiovascular Cardiovascular: Denies chest pain or palpitations Respiratory/Chest Respiratory/Chest: Denies cough or dyspnea Gastrointestinal Gastrointestinal: Reports abdominal pain; Denies nausea or vomiting Genitourinary Genitourinary ED: Reports urinary frequency; Denies dysuria or hematuria Musculoskeletal Musculoskeletal: Denies back pain or neck pain Integumentary Denies abscess or rash Neurologic Neurologic: Denies headache(s) or weakness Allergic/Immunologic Allergic/Immunologic ED: Denies mouth swelling or urticaria EXAM Physical Exam Const Vital Signs: 09/19/23 12:14 09/19/23 12:14 09/19/23 14:14 Temperature 98.4 F 98.4 F Temperature Source Temporal Temporal Pulse Rate 114 H 112 H 98 Respiratory Rate 16 15 16 Blood Pressure 148/102 H 148/102 H 127/83 H Blood Pressure Mean 117 117 97 Pulse Ox 100 100 98 Oxygen Delivery Method Room Air Room Air Room Air Positive well nourished and well developed General Appearance ED: well developed and NAD HEENT Reports moist mucous membranes Neck supple and no JVD Resp normal respiratory effort and clear to auscultation bilaterally Cardio regular rate and regular rhythm GI soft to palpation, non-tender and non-distended Extremity normal to inspection and full ROM Neuro oriented x3, CN's II-XII intact bilaterally and no sensory deficits noted Sensorium / Orientation: alert Motor Exam: strength 5/5 throughout Psych mental status grossly normal MDM MDM MDM Narrative Medical decision making narrative: Differential diagnosis includes ectopic , ovarian cyst, mesenteric adenitis, diverticulitis, urinary tract infection, and viral illness. CBC will be obtained to assess for leukocytosis and anemia. Basic metabolic profile willbe obtained to assess for electrolyte abnormality and renal function. Quantitative hCG will be obtained to assess for status. Urinalysis will be obtained to assess for urinary tract infection and hematuria. Transvaginal ultrasound will be obtained to assess for ectopic and ovarian cyst. Lab Data Lab results narrative: CBC was reviewed. There is a slight leukocytosis of 16.0. The remainder was essentially within normal limits. Basic metabolic profile was reviewed. Potassium slightly low at 3.3. Quantitative hCG was reviewed and was 1366. Labs: Laboratory Results - last 24 hr 09/19/23 09/19/23 13:06 14:20 WBC 16.0 H RBC 4.74 Hgb 13.7 Hct 42.8 MCV 90.3 MCH 28.9 MCHC 32.0 RDW Std Deviation 45.1 H RDW Coeff of Lizbet 13.7 Plt Count 312 MPV 8.7 Immature Gran % (Auto) 0.600 Neut % (Auto) 77.7 H Lymph % (Auto) 16.6 L [place] % (Auto) 4.6 Eos % (Auto) 0.2 Baso % (Auto) 0.3 Absolute Neuts (auto) 12.4 H Absolute Lymphs (auto) 2.66 Nucleated RBC % 0 Sodium 140 Potassium 3.3 L Chloride 106 Carbon Dioxide 23.0 Anion Gap 11 BUN 8 Creatinine 0.65 Estim Creat Clear Calc 126.10 Est GFR (MDRD) Af Amer 141 Est GFR (MDRD) Non-Af 117 BUN/Creatinine Ratio 12.3 Glucose 116 H Calcium 8.7 HCG, Quant 1366 H Urine Color Yellow Urine Clarity Sl. Cloudy Urine pH 8.0 Ur Specific [place] 1.010 Urine Protein Negative Urine Glucose (UA) Normal Urine Ketones Negative Urine Occult Blood 50 H Urine Nitrite Negative Urine Bilirubin Negative Urine Urobilinogen Normal Ur Leukocyte Esterase Negative Urine RBC 5-10 SEEN Urine WBC 0 SEEN Ur Squamous Epith Cells 0 SEEN Urine Bacteria 0 SEEN Urine Mucus 0 SEEN Radiography Diagnostic Testing: Pelvic ultrasound was obtained. There is a single intrauterine gestational sac measuring 5 weeks 1 day. There is a small uterine fibroid. This was interpreted by the radiologist was also independently reviewed by myself. Treatment and Re-Evaluation Narrative: Patient is resting comfortably on reevaluation. Patient was advised of her findings. Patient was instructed to follow-up with her TELECOM ENGINEER in 2 to 3 days. Patient was instructed to have a repeat quantitative hCG done. Patient was instructed on complete vaginal rest. Patient was instructed return if worse in any way. Patient understood and was agreeable with the plan. All questions were answered. Discharge Plan Triage Chief Complaint: Vag Bld, Preg ED Provider: Karlos Miller Dx/Rx/DC Orders Clinical Impression: Intrauterine , Miscarriage, threatened, early Instructions: Miscarriage Threatened Prescriptions: No Action aspirin 81 mg tablet,delayed release (DR/EC) 81 mg PO DAILY diphenhydramine HCl [Benadryl Allergy] 25 mg tablet 25 mg PO QHS loratadine [Claritin] 10 mg tablet 10 mg PO DAILY famotidine [Pepcid] 20 mg tablet 20 mg PO DAILY enoxaparin [Lovenox] 30 mg/0.3 mL syringe 30 mg subcut DAILY estradiol [Estrace] 2 mg tablet 2 mg PO BID progesterone micronized [Prometrium] 200 mg capsule 200 mg PO BID progesterone 50 mg/mL oil 50 mg IM DAILY naltrexone 1.5 mg capsule 3 mg PO metformin 500 mg tablet 500 mg PO DAILY Primary Care Provider: Marco Melvin Referrals: Julianna Newman DO [Med Staff - Active Staff] - Keep Marivel appointment Marco Melvin PA [Primary Care Provider] - Disposition Disposition: Home, Self Care What to do if you have Problems For any increased pain, shortness of breath, bleeding, nausea or vomiting, chestpain, or any unexpected problems, contact your Primary Care Provider. Call [facility] ([phone]) or report to the closest Emergency Room. Call 911 if necessary. 09/19/23 1624 <Electronically signed by Karlos Miller DO> Cosigner Signature (if applicable): CC: CHERYL Samano ~ Signed [facility] Work Phone: 1(211) 175-544806-02-[address] Villareal [facility] December 02, 2022 10:42am Note Date/Time December 02, 2022 10:39 am [facility] Medical Records Department [address] [place] [address] Instructions for Home/Discharge Instructions 12/02/22 1038 MR#: [id number] Acct: [id number] Name: JOSE EDWARD Rep #:[id number] : 1995 27 From: Julianna Newman DO PCP: CHERYL Samano Status:REG [facility] Discharge Instructions Diet Discharge Diet: No restrictions Activity Discharge Activity: Return to Normal Activity, May Not Drive (for two weeks or while taking narcotic pain medications.), May Shower and May Take a Tub Bath (in7 days) May resume sexual activity in: 1 week Weight Bearing Status: Full weight bearing Dressing / Incision Call your doctor if you observe: Using more than 1 pad per hour, Shortness of breath, Chest pain and Uncontrolled pain Suture Line Care: Avoid Pulling/Pushing and Avoid Pinching/Bending Remove Dressing in: 1 week (if present) Cleanse incision/area with: Soap & Water and Keep Dressing Clean & Dry Follow Up Care Please Follow Up With: Julianna Newman DO When: Call to make an appointment with your doctor for a follow up incision check in 1-2 weeks. Test Results: Test results from this visit will be discussed in further detail at your follow- up appointment, if applicable. Discharge Plan Admission Primary Reason for Your Visit: laparoscopy Attending Provider: Julianna Newman Primary Care Provider: Marco Melvin Discharge Orders/Prescriptions Prescriptions: New ibuprofen 800 mg tablet 800 mg PO Q8H PRN (Reason: pain) Qty: 20 0RF hydrocodone-acetaminophen 5-325 mg tablet 1 tab PO Q4H PRN (Reason: pain) 3 Days Qty: 10 0RF Continued bupropion HCl [Wellbutrin SR] 150 mg tablet sustained-release 12 hr 150 mg PO DAILY omeprazole 20 mg capsule,delayed release(DR/EC) 20 mg PO DAILY terbinafine HCl 1 % cream 1 applic topical DAILY Referrals / Follow Up: Marco Melvin PA [Primary Care Provider] - Disposition Disposition (needs filled in before D/C Order can be placed): Home, Self Care 12/02/22 1042<Electronically signed by Julianna Newman DO>Julianna Newman DO CC: CHERYL Melvin ~ Signed [facility] Work Phone: 1(723) 547-411206-02-2023 Procedure [facility] 12-02-2022 History and physical note Author Dr. Villareal [facility] December 02, 2022 10:38am Note Date/Time December 02, 2022 10:38 am [facility] Medical Records Department [address] [place] [address] History & Physical Exam 12/02/22 1037 MR#: [id number] Acct: [id number] Name: WAGNERJOSE MUKHERJEE Rep #:[id number] : 1995 27 From: Julianna Newman DO PCP: CHERYL Samano Status:[facility] Location: [address] History and Physical Date of Admission: 12/02/22 Intake Vital Signs ? 11/09/2310:22 11/09/2310:22 Height 5 ft 2 in 5 ft 2 in Weight: 156 lb 6 oz ? BMI 28.5 ? BP 116/76 ? 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 Is patient in pain?: No Allergies azithromycin [From Zithromax] Allergy (Verified 11/09/22 11:22) JOHN VIJI'S SYNDROMEvenlafaxine Allergy (Verified 11/09/22 11:22) Other Medications multivitamin,min-ferrous fumarate 3.3 mg-folic 25 mcg-herb tablet (Hair, Skin and Nails Advanced) 1 tab PO DAILY 08/20/21 [History Confirmed 11/09/22] bupropion HCl 150 mg tablet,12 hr sustained-release (Wellbutrin SR) 150 mg PO DAILY 10/14/22 [History Confirmed 11/09/22] omeprazole 20 mg capsule,delayed release 20 mg PO DAILY 10/14/22 [History Confirmed 11/09/22] terbinafine HCl 1 % topical cream 1 applic topical BID 11/09/22 [History Confirmed 11/09/22] Post menopausal: No Patient : No : No PFSH Medical History? Abnormal uterine bleeding (AUB) Alcohol use Anxiety Endometrial polyp Heartburn Vapes nicotine containing substance Wears contact lenses Surgical History? History of tonsillectomy and adenoidectomy Hx of lumpectomy S/P D&C (status post dilation and curettage) Family History? Mother DiabetesUncle DiabetesGrandmother Diabetes Social History? number of children:? 0 current occupational status:? employed current occupation:? [employer] Smoking Status:? Current every day smoker Electronic Cigarette Use:? with nicotine alcohol intake:? never substance use type:? does not use seatbelt use:? always do you feel safe at home:? Yes additional social history:? - Andrea Woods HPI diagnostic lap & fulguration Details: JOSE EDWARD is a 27 year old who presents for annual exam. has been tryingto get x 6 years. got once and had a miscarriage. [facility] for 2 rounds of iui without success. was seeing Dr. Del Real at [facility] and had a hysteroscopy D&C with removal of a polyp like structure that ended up being benign tissue and not a polyp. pt was upset because Dr. Del Real got calledaway right after her surgery with her and did not have a chance to explain to her the findings. She has had some borderline abnormal thyroid tests. itdoes not look like she has ever had a prolactin level checked. 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 his semen analysis in the past was normal as was her hsg. She does have some pretty painful midcycle cramping that requires medication and heating pad. She is currently scheduled for a diagnostic laparoscopy, possible fulguration of endometriosis and chromopertubation of fallopian tubes. History ? ? ? 0 ? Elective abortions ? Hx Para ? Spontaneous abortions ? Hx # Term Pregnancies ? Ectopic pregnancies ? Hx # Pregnancies ? Multiple births ? # of living children ? ROS Const ROS Unobtainable: All systems reviewed & are unremarkable except as noted in H Resp Resp: Reports system reviewed and no additional complaints, except as documented; Denies cough GI GI: Reports as per HPI Psych Psych: Reports system reviewed and no additional complaints, except as documented Exam Const General: cooperative, healthy appearing, comfortable and no acute distress Resp Effort & Inspection: normal respiratory effort Skin General: no rashes or lesions noted Psych Appearance: grossly normal Speech and Movement: speech and movement normal Coding Level of Care Code Off vis,est,level 4 Diagnoses Abnormal uterine bleeding? N93.9 Infertility? Assessment and Plan Assessment and Plan (1) Abnormal uterine bleeding: ?Status:?Acute (2) Infertility: ?Status:?Acute Plan After discussing the patient's diagnosis and treatment plan options, patient wishes to proceed with surgical management.? I have discussed with the patient the risks, benefits, and alternatives of the procedure which include but are notlimited to risks of anesthesia, bleeding, infection, possible damage to bowel, bladder, or surrounding vasculature which could lead to additional surgery to evaluate any complications.? Patient agrees to procedure and wishes to proceed.?ACOG/uptodate references given for additional information regarding procedure.? 12/02/22 1038 <Electronically signed by Julianna Newman DO> Cosigner Signature (if applicable): CC: CHERYL Melvin; Dr. Julianna Newman DO~ Signed [facility] Work Phone: 1(174) 989-829604-14-2023 NotePap Smear Specimen AdequacyApril 2022 5:09pmComment.Satisfactory for evaluation. Endocervical and/or squamous metaplasticcells (endocervical component)are present.[facility] INTER[facility]ACED A#[id number] HospitalComment on above:Satisfactory for evaluation. Endocervical and/or squamous metaplasticcells (endocervical component)are present.04-08-2022 Miscellaneous Notes* Telephone Encounter - Mandy Christianson RN - 04/08/2022 4:38 PM EDT Patient states she took a UPT at home and it was negative. Bleeding precautions reviewed with patient. She would like appointment in office next week. Appointment scheduled. Mandy Christianson RN * Telephone Encounter - Hodan Jacob APRN.CNM - 04/08/2022 4:23 PM EDT Recommend UPT like stated. If positive, bleeding precautions. If negative, ok to take Ibuprofen 600mg PO every 6hr for pain. Increase fluids for hydration. If needed can go to ED for symptoms. Otherwise, recommend follow up appointment this coming week for further evaluation. Thank you, Hodan Jacob APRN.CNM * Telephone Encounter - Yas Hogan RN - 04/08/2022 2:07 PM EDT Patient's menses started 04/03/22 and was normal light flow. Menses typically lasts only 3-5 days. Today started with heavy bleeding, clots and cramping. Changing super tampon every 2 hours. Reviewed pads and heavy bleeding precautions. She does feel weak and light headed. No chest pain or shortnessof breath. Cramping was severe this morning - reminded her of time she had passed missed ab. Rating4/10 on pain scale. Has been taking ibuprofen to help. Not using control. H/o infertility andhas not been preventing . She is going to get UPT to take at home. Patient of RR. Please advise. Yas Hogan RN [facility] History of Past illness Narrative* Problem Noted Date Resolved Date Blurring of vision 09/13/2011 11/05/2018 Dizziness 05/10/2011 11/05/2018 Ingrowing nail 04/06/2011 07/28/2021 Cellulitis and abscess of toe, unspecified 03/1711/05/2018 documented as of this encounter (statuses as of 04/08/2022) [facility] noteNo assessment information availableWNewark Hospital Work Phone: Evaluation note* Diagnosis Onset Date Resolution Status Encounter for routine gynecological examination noneactive Abnormal uterine bleeding ac [place] Infertility acute Abnormal uterine bleeding ac [place] Infertility acute [facility] Work Phone: Evaluation note* Diagnosis Onset Date Resolution Status Abnormal uterine bleeding ac [place] Infertility acute Infertility acute Status post laparoscopy [facility] Work Phone: Evaluation note* Diagnosis Onset Date Resolution Status Abnormal uterine bleeding ac [place] Status post laparoscopy [facility] Work Phone: Evaluation note* Diagnosis Onset Date Resolution Status Abnormal uterine bleeding ac [place] [facility] Work Phone: Evaluation note* Diagnosis Onset Date Resolution Status Abnormal uterine bleeding ac [place] Abnormal uterine bleeding ac [place] Conceived by in vitro fertilization acute Genetic testing of female ac [place] Infertility acute PCOS (polycystic ovarian syndrome) acute acute Supervision of high-risk acute Anxiety and depression chron ic [facility] Work Phone: Evaluation note* Diagnosis Onset Date Resolution Status Abnormal uterine bleeding ac [place] Abnormal uterine bleeding ac [place] Conceived by in vitro fertilization acute Genetic testing of female ac [place] Infertility acute PCOS (polycystic ovarian syndrome) acute acute Supervision of high-risk acute Anxiety and depression chron ic Conceived by in vitro fertilization acute Genetic testing of female ac [place] Infertility acute acute Supervision of high-risk acute Anxiety and depression chron ic [facility] Work Phone: Evaluation note* Diagnosis Anhydramnios in third trimester, single or unspecified fetus- Primary Anhydramnios in third trimester, single or unspecified fetus Vaginal bleeding in , third trimester S/P [facility] Diagnosis History of gestational diabetes Personal history of gestational diabetes [facility] Diagnosis Ovarian hyperstimulation syndrome- Primary Other ovarian hyperfunction Ovarian hyperstimulation syndrome Other ovarian hyperfunction documented in this encounter [facility] note* Diagnosis Onset Date Resolution Status Admit Date Encounter for routine gynecological examination noneactive Septem 2024 2:30pm [facility] Work Phone: Hospital Discharge instructions Additional Instructions Plenty of fluids and rest to replace your blood loss. Motrin and Tylenol for pain and cramping. Follow-up with your TELECOM ENGINEER to ensure you are improving. Your test was negative. Your blood counts were normal.[facility] Work Phone: Hospital Discharge instructions Additional Instructions Implant Used?: [facility] Work Phone: Hospital Discharge instructions Additional Instructions The x-ray of your abdomen shows significant constipation. I recommend you take magnesium citrate which is sold [id number]. Drink plenty of water and Gatorade to avoid dehydration as this will cause a lot of bowel movements. You also could be having pain from the ovarian hyperstimulation syndrome which should get better over time. I recommend follow- up with your TELECOM ENGINEER.[facility] Work Phone: Reason for referral (narrative)No reason for referral information availableBow Medical Services Work Phone: Reason for visit Narrative* Auth/Cert (Routine) Specialty Diagnoses / Procedures Referred By Contac t Referred To Contact Diagnoses Ovarian hyperstimulation syndrome Ovarian hyperstimulation syndrome Procedures . Barak Covarrubias MD [address] [place] [address] [address] [place] [address] Phone: tel: fax: [facility] Medical Surgical [facility] [address] [address] Phone: tel: Referral ID Status Reason Start Date Expiration Date Visits Re quested Visits Authorized [id number] 1 1 [facility] Health Summary Purpose Family History No Family History Records Found Relationship Condition Age at Onset Recorded Date/T heber mother Diabetes mellitus Unknown uncle Diabetes mellitus Unknown grandmother Diabetes mellitus Unknown Advance Directives No Advanced Directives Records Found Advance Directive Response Recorded Date/ Time Living Will No April 08 7:23pm Power of Figure Refinisher And Repairer No April 08 022 7:23pm Advance Directive Response Recorded Date/ Time Living Will No November 22, 2022 1 0:47am Power of Figure Refinisher And Repairer No November 22, 2022 10:47am Advance Directive Response Recorded Date/ Time Living Will No November 22, 2022 9 :47am Power of Figure Refinisher And Repairer No November 22, 2022 9:47am Advance Directive Response Recorded Date/ Time Living Will No September 19, 2023 1:13pm Power of Figure Refinisher And Repairer No September 18 1:13pm Advance Directive Response Recorded Date/ Time Living Will No October 12, 2023 3:47pm Power of Figure Refinisher And Repairer No October 11 3:47pm Date Activated Date Inactivated Comments 03/06/2024 5:26 PM 03/17/2024 8:57 PM Advance Directive Response Recorded Date/ Time Living Will No October 11, 2024 9:40pm Do you have a Healthcare Power of Figure Refinisher And Repairer? No October 11, 2024 9:40pm Date Activated Date Inactivated Comments 10/12/2024 3:53 AM 10/13/2024 2:55 PM Date Activated Date Inactivated Comments 03/06/2024 5:26 PM 03/17/2024 8:57 PM Advance Directive Response Recorded Date/ Time Living Will No October 11, 2024 9:40pm Do you have a Healthcare Power of Figure Refinisher And Repairer? No October 11, 2024 9:40pm Living Will No October 14, 2024 8:36pm Do you have a Healthcare Power of Figure Refinisher And Repairer? 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) THYROMEGALY THYROMEGALY diagnostic lap & fulguration diagnostic laparoscopy diagnostic laparoscopy Reason for Visit Encounter for routin e gynecological examination Abnormal uterine bleeding Infertility Abnormal uterine bleeding Infertility Chief Complaint diagnostic laparosco py diagnostic laparoscopy 2 wk diagnostic lap & fulguration Reason for Visit Abnormal uterine ble eding Infertility Infertility Status post laparoscopy Chief Complaint Stat labs Chief Complaint Stat labs STAT LABS STAT LAB Chief Complaint Stat labs STAT LABS STAT LAB To discuss laparoscopy STAT ORDER Reason for Visit Abnormal uterine ble eding Status post laparoscopy Chief Complaint Stat labs STAT LABS STAT LAB To discuss laparoscopy STAT ORDER VAGINAL BLEEDING, PREG Reason for Visit Abnormal uterine ble eding Status post laparoscopy Chief Complaint Stat labs STAT LABS STAT LAB To discuss laparoscopy STAT ORDER VAGINAL BLEEDING, PREG Supervision of with history of infertili VIABILITY/STAT LAB Reason for Visit Abnormal uterine ble eding Status post laparoscopy Chief Complaint Stat labs STAT LABS STAT LAB To discuss laparoscopy STAT ORDER VAGINAL BLEEDING, PREG Supervision of with history of infertili VIABILITY/STAT LAB Reason for Visit Abnormal uterine ble eding Chief Complaint Stat labs STAT LABS STAT LAB To discuss laparoscopy STAT ORDER VAGINAL BLEEDING, PREG Supervision of with history of infertili VIABILITY/STAT LAB New OB, IVF Date 09/02/23 Reason for Visit Abnormal uterine ble eding Abnormal uterine bleeding Conceived by in vitro fertilization Genetic testing of female Infertility PCOS (polycystic ovarian syndrome) Supervision of high-risk Anxiety and depression Chief Complaint Stat labs STAT LABS STAT LAB To discuss laparoscopy STAT ORDER VAGINAL BLEEDING, PREG Supervision of with history of infertili VIABILITY/STAT LAB New OB, IVF Date 09/02/23 10 WK OB Reason for Visit Abnormal uterine ble eding Abnormal uterine bleeding Conceived by in vitro fertilization Genetic testing of female Infertility PCOS (polycystic ovarian syndrome) Supervision of high-risk Anxiety and depression Conceived by in vitro fertilization Genetic testing of female Infertility Supervision of high-risk Anxiety and depression Chief Complaint Admit Date painful intercourse June 19, 2024 9:36am UTERINE FIBROID August 15, 2024 8:05am SOB, ABD PAIN October 11, 2024 8:5 3pm Reason for Visit Admit Date Amenorrhea June 19, 2024 9:36am Pelvic floor dysfunction June 19, 2024 9:36am Vaginal discharge June 19, 2024 9:36am Chief Complaint Admit Date painful intercourse June 19, 2024 9:36am UTERINE FIBROID August 15, 2024 8:05am SOB, ABD PAIN October 11, 2024 8:5 3pm ABD PAIN October 14, 2024 6:2 6pm Chief Complaint Admit Date 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 DATE CREATED AUTHOR AUTHOR'S ORGANIZ ATION 08/14/2023 [facility] DATE CREATED AUTHOR AUTHOR'S ORGANIZ ATION 05/15/2024 [facility] DATE CREATED AUTHOR AUTHOR'S ORGANIZ ATION 10/14/2024 [facility] DATE CREATED AUTHOR AUTHOR'S ORGANIZ ATION 03/08/2025 [facility] DATE CREATED AUTHOR AUTHOR'S ORGANIZ ATION 03/14/2025 LUBA CALDWELL N Source Comments (unrecognize d section and content) In the event this informatio n is protected by the Federal Confidentiality of Alcohol and Drug Abuse Patient Records regulations: The Federal rules restrict any use of the information to criminally investigate or prosecute any alcohol or drug abuse patient.[facility] Reason for Visit (unrecogniz ed section and content) Reason Comments Heavy Bleeding Reason Comments Rupture of Membranes Specialty Diagnoses / Procedures Referred By Contsully t Referred To Contact Diagnoses Anhydramnios in third trimester, single or unspecified fetus Procedures . Saumya Mancia MD [address] [place] [address] [address] [place] [address] Referral ID Status Reason Start Date Expiration Date Visits Re quested Visits Authorized [id number] 1 1 Care Teams (unrecognized sec tion and content) Mechanical Inspector Relationship Specialty Start Date End Date Zbigniew Matta MD [address] [place], [place] [id number] PCP - General Family Medicine 11/06/18 Team Status: Active Member Role Status Dates Dr. Minh Ritter MD Family Provider Active CHERYL Samano Primary Care Provider Active Team Status: Inactive Member Role Status Dates CHERYL Samano Primary Care Provider, Referring Pro vider Active Dr. Julianna Newman DO Attending Provider Activ e Team Status: Active Member Role Status Dates CHERYL Samano Primary Care Provider Active Dr. Julianna Newman DO Attending Provider, Referring Provider, Other Provider Active Team Status: Inactive Member Role Status Dates CHERYL Samano Primary Care Provider Active Dr. Julianna Newman DO Attending Provider, Refe rring Provider Active Team Status: Inactive Member Role Status Dates CHERYL Samano Primary Care Provider Active Dr. Yola Schaffer MD Attending Provider, Referring Pr ovider Active Team Status: Active Member Role Status Dates CHERYL Samano Primary Care Provider Active Dr. Yola Schaffer MD Attending Provider, Referring Pr ovider Active Team Status: Inactive Member Role Status Dates CHERYL Samano Primary Care Provider Active Dr. Karlos Miller DO Emergency Provider Active Team Status: Inactive Member Role Status Dates CHERYL Samano Primary Care Provider Active Dr. Karlos Miller DO Attending Provider, Emergency P charles Active Team Status: Active Member Role Status Dates Dr. Romel Ritter MD Family Provider Active CHERYL Samano Primary Care Provider Active Team Status: Inactive Member Role Status Dates CHERYL Samano Primary Care Provider, Referring Pro vider Active Dr. Venessa Newby MD Attending Provider Active Team Status: Inactive Member Role Status Dates CHERYL Samano Primary Care Provider Active Dr. 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 Start Date End Date Jeff Nguyen MD [address] [facility] [address] [place] [address] PCP - General 03/11/14 Team Status: Active Member Role Status Dates Marco Melvin PA Primary Care Provider Active Team Status: Inactive Member Role Status Dates Marco Melvin PA Primary Care Provider Active S tart: June 19, 2024 End: June 19, 2024 Marco Melvin PA Referring Provider Active Star t: June 19, 2024 End: June 19, 2024 AMY Monae Attending Provider Active Start: June 19, 2024 End: June 19, 2024 Team Status: Inactive Member Role Status Dates Marco Melvin PA Primary Care Provider Active S tart: June 19, 2024 End: June 19, 2024 AMY Monae Attending Provider Active Start: June 19, 2024 End: June 19, 2024 AMY Monae Referring Provider Active Start: June 19, 2024 End: June 19, 2024 Team Status: Inactive Member Role Status Dates Marco Melvin PA Primary Care Provider Active S tart: August 15, 2024 End: August 15, 2024 Dr. Julainna Newman DO Attending Provider Activ e Start: August 15, 2024 End: August 15, 2024 Dr. Julianna Newman DO Referring Provider Activ e Start: August 15, 2024 End: August 15, 2024 Dr. Yola Schaffer MD Other Provider Active Star t: August 15, 2024 End: August 15, 2024 Team Status: Inactive Member Role Status Dates CHERYL Samano Primary Care Provider Active S tart: October 11, 2024 End: October 12, 2024 Dr. Fern Marroquin , Emergency Provider Active S tart: October 11, 2024 End: October 12, 2024 Mechanical Inspector Relationship Specialty Start Date End Date Marco Melvin [address] [address] [place] [id number] PCP - General 10/12/24 Team Status: Inactive Member Role Status Dates CHERYL Samano Primary Care Provider Active S tart: October 14, 2024 End: October 14, 2024 Dr. Soren Babcock MD Emergency Provider Active S tart: October 14, 2024 End: October 14, 2024 Team Status: Active Member Role/Relationship Status Dates CHERYL Samano Primary Care Provider Active Team Status: Inactive Member Role/Relationship Status Dates CHERYL Samano Primary Care Provider Active S tart: March 06, 2025 End: March 06, 2025 CHERYL Samano Referring Provider Active Star t: March 06, 2025 End: March 06, 2025 Dr. Julianna Newman , Attending Provider Activ e Start: March 06, 2025 End: March 06, 2025 Goals (unrecognized section and content) Goals may be documented in a n alternate sectionGoals may be documented in an alternate sectionGoals may be documented in an alternate sectionGoals may be documented in an alternate sectionGoals may be documented in an alternate sectionGoals may be documented in an alternate sectionGoals may be documented in an alternate sectionGoals may be documented in an alternate sectionGoals may be documented in an alternate sectionGoals may be documented in an alternate sectionGoals may be documented in an alternate sectionGoals may be documented in an alternate sectionGoals may be documented in an alternate sectionGoals may be documented in an alternate sectionGoals may be documented in an alternate sectionGoals may be documented in an alternate sectionGoals may be documented in an alternate sectionGoals may be documented in an alternate sectionGoals may be documented in an alternate section Scheduled Active and Recently Administ ered Medications (unrecognized section and content) Medication Order 03/15/2024 03/16/2024 03/17/2024 enoxaparin (Lovenox) syringe 40 mg 40 mg, SubCUTAneous, Daily, First dose on 03/15/24 at 0100, , Indication of Use: Prophylaxis-DVT/PE 0047 (Given - Provider: Yaritza Sanford RN) 0022 (Given - Provider: Sonja Phipps RN)0900 (Canceled Entry - Provider: Sonja Phipps RN)2307 (Given - Provider: Sonja Phipps RN) ferrous sulfate tablet 325 mg 325 mg, Oral, 2 times daily with meals, First dose on Lali 03/14/24 at 1700, , Start if Hgb less than 10. Hold oral ferrous sulfate dose if receiving IV iron sucrose (Venofer) 0709 (Not Given - Provider: Maryellen Lawson RN - Reason: Order parameters not met)1700 (Not Given - Provider: Maryellen Lawson RN - Reason: Order parameters not met) 0800 (Canceled Entry - Provider: Automatic Discharge Provider - Comment: Automatically canceled at discontinue of medication order)1700 (Not Given - Provider: Hollie Avalos RN - Reason: Order parameters not met) 0800 (Not Given - Provider: Maryellen Posey RN - Reason: Order parameters not met)1700 (Not Given - Provider: Maryellen Posey RN - Reason: Order parameters not met) ibuprofen tablet 600 mg 600 mg, Oral, Every 6 hours, First dose on Lali 03/14/24 at 1900, , Once tolerating PO, discontinue Toradol and begin ibuprofen 8 hours after the final dose of Toradol. Alternate ibuprofen and acetaminophen every 3 hours. 0100 (Not Given - Provider: Yaritza Sanford RN - Reason: Order parameters not met)0700 (Not Given - Provider: Maryellen Lawson RN - Reason: Order parameters not met)1300 (Not Given - Provider: Maryellen Lawson RN - Reason: Order parameters not met)2120 (Given - Provider: Sonja Canan, RN) 0314 (Given - Provider: Sonja Phipps RN)0910 (Given - Provider: Hollie Avalos RN)1704 (Given - Provider: Yolanda Quigley RN)1900 (Canceled Entry - Provider: Sonja Phipps RN)2306 (Given - Provider: Sonja Phipps RN) 0555 (Given - Provider: Sonja Phipps RN)0700 (Canceled Entry - Provider: Automatic Discharge Provider - Comment: Automatically canceled at discontinue of medication order)1228 (Given - Provider: Maryellen Posey, HENRIQUE)1835 (Given - Provider: Maryellen Posey, RN) Insulin Lispro (Humalog) injection 4 Units (COMPLETED) 4 Units, SubCUTAneous, Once, On Mon03/15/24 at 0015, For 1 dose 0048 (Given - Provider: Yaritza Sanford RN) ketorolac (Toradol) injection 30 mg (COMPLETED) 30 mg, IntraVENous, Every 6 hours, First dose on Lali 03/14/24 at 1900, For 4 doses, , This may be discontinued prior to 4 doses if patient pain is well controlled and able to take PO ibuprofen. 0047 (Given - Provider: Yaritza Sanford RN)0637 (Given - Provider: Maryellen Lawson RN)1217 (Given - Provider: Maryellen Lawson RN) pantoprazole (ProtoNix) EC tablet 40 mg (CANCELED) 40 mg, Oral, Daily before breakfast, First dose on Mon03/10/24 at 0600, Do not crush, chew, or split. 0637 (Given - Provider: Maryellen Lawson, HENRIQUE) vitamin tablet 1 tablet, Oral, Daily, First dose on Lali 03/14/24 at 1515, , Begin when normal bowel activity resumes. 0709 (Not Given - Provider: Maryellen Lawson RN - Reason: Order parameters not met) 0900 (Canceled Entry - Provider: Automatic Discharge Provider - Comment: Automatically canceled at discontinue of medication order) 0900 (Canceled Entry - Provider: Automatic Discharge Provider - Comment: Automatically canceled at discontinue of medication order) sodium chloride 0.9 % bolus 500 mL 500 mL, IntraVENous, at 1,000 mL/hr, Administer over 0.5 Hours, Once, On Mon03/15/24 at 0815, For 1 dose, Recovery (only), Indications: Anti-nausea 0815 (Not Given - Provider: Maryellen Lawson RN - Reason: Order parameters not met) sodium chloride 0.9% (NS) flush 10 mL 10 mL, IntraVENous, Every 12 hours scheduled (2 times per day), First dose on Mon03/15/24 at 0900, Recovery (only) 1250 (Given - Provider: Maryellen Lawson RN)2100 (Canceled Entry - Provider: Automatic Discharge Provider - Comment: Automatically canceled at discontinue of medication order) 0900 (Canceled Entry - Provider: Automatic Discharge Provider - Comment: Automatically canceled at discontinue of medication order)2100 (Canceled Entry - Provider: Automatic Discharge Provider - Comment: Automatically canceled at discontinue of medication order) 0900 (Canceled Entry - Provider: Automatic Discharge Provider - Comment: Automatically canceled at discontinue of medication order) sodium chloride 0.9% (NS) flush 5-40 mL 5-40 mL, IntraVENous, Every 12 hours scheduled (2 times per day), First dose on Mon03/14/24 at 2100, , or Line Patency: Peripheral IV = 5 mL; Midline or Central Line = 10 mL/lumen. If following IV push medication, administer flush at same rate as the IV push. Flush volume is determined by type of infusion therapy being given. For non-viscous solutions use: Peripheral IV = 5 mL Midline or Central Line = 10 mL/lumen For viscous solutions (i.e. blood components, parenteral nutrition, contrast media, or after obtaining blood sample) use: Peripheral IV = 10 mL Midline or Central Line = 20 mL/lumen 1230 (Not Given - Provider: Maryellen Lawson RN - Reason: Loss of IV access)2100 (Canceled Entry - Provider: Automatic Discharge Provider - Comment: Automatically canceled at discontinue of medication order) 0900 (Canceled Entry - Provider: Automatic Discharge Provider - Comment: Automatically canceled at discontinue of medication order)2100 (Canceled Entry - Provider: Automatic Discharge Provider - Comment: Automatically canceled at discontinue of medication order) 0900 (Canceled Entry - Provider: Automatic Discharge Provider - Comment: Automatically canceled at discontinue of medication order) PRN Medication Order 03/15/2024 03/16/2024 03/17/2024 acetaminophen (Tylenol) tablet 650 mg 650 mg, Oral, Every 6 hours PRN, other, Pain (1-10), Starting on Lali 03/14/24 at 1500, , Give in addition to any other pain medication ordered at same time for any pain indication. Maximum dose of acetaminophen is 4000mg from all sources in 24 hours. Alternate ibuprofen and acetaminophen every 3 hours. 0637 (Given - Provider: Maryellen Lawson RN)1218 (Given - Provider: Maryellen Lawson RN)1758 (Given - Provider: Maryellen Lawson RN) 0021 (Given - Provider: Sonja Phipps RN)0637 (Given - Provider: Sonja Phipps RN)1308 (Given - Provider: Hollie Avalos RN)1949 (Given - Provider: Sonja Phipps RN) 0219 (Given - Provider: Char Chacon, HENRIQUE)0830 (Given - Provider: Maryellen Posey, HENRIQUE)1448 (Given - Provider: Maryellen Posey, HENRIQUE) diphenhydrAMINE (BENADryl) injection 25 mg 25 mg, IntraVENous, Every 6 hours PRN, itching, hives, Starting on Lali 24 at 1500, docusate sodium (Colace) capsule 100 mg 100 mg, Oral, 2 times daily PRN, constipation, Starting on Lali 03/14/24 at 1500, , Do not crush or break. 2202 (Given - Provider: Sonja Phipps RN) 1706 (Given - Provider: Yloanda Quigley RN) 1029 (Given - Provider: Maryellen Posey, HENRIQUE) famotidine (Pepcid) tablet 20 mg 20 mg, Oral, Daily PRN, indigestion, heartburn, Starting on Lali 24 at 1500, , Renal dose per pharmacy for peptic ulcer prophylaxis. hydrALAZINE (Apresoline) injection 5 mg(Linked Group 1) 5 mg, IntraVENous, Every 15 min PRN, high blood pressure, for SBP greater than 160 mmHg for 2 consecutive measurements taken from different sites, Starting on Mon03/15/24 at 0813, For 2 doses, Recovery (only), PRN for SBP > 160 for 2 consecutive measurements, and if one of the following conditions is met: 1) If IV labetolol is ineffective. 2) If HR is under 60. 3) If patient has heart block, COPD or asthma. If both labetalol and hydralazine ineffective, notify anesthesia provider. HYDROmorphone (Dilaudid) injection 0.25 mg(Linked Group 2) 0.25 mg, IntraVENous, Every 3 hours PRN, moderate pain (4-6), Starting on Lali 03/14/24 at 1500, , If oral and IV narcotics ordered, use oral first and only use IV if oral is ineffective or cannot take oral. Do Not give oral and IV within 1 hour of each other unless specifically ordered. HYDROmorphone (Dilaudid) injection 0.5 mg(Linked Group 2) 0.5 mg, IntraVENous, Every 3 hours PRN, severe pain (7-10), Starting on Mon03/14/24 at 1500, , If oral and IV narcotics ordered, use oral first and only use IV if oral is ineffective or cannot take oral. Do Not give oral and IV within 1 hour of each other unless specifically ordered. labetalol (Normodyne,Trandate) injection 5 mg(Linked Group 1) 5 mg, IntraVENous, Every 10 min PRN, high blood pressure, for SBP greater than 160 mmHg for 2 consecutive measurements taken from different sites., Starting on Mon03/15/24 at 0813, For 2 doses, Recovery (only), PRN for SBP >160 for 2 consecutive measurements, if HR is 60 or greater. If beta felix is contraindicated (HR less than 60, heart block, COPD or asthma) use hydralazine IV order. lanolin (Lansinoh) cream Topical, Every 1 hour PRN, dry skin, nipple discomfort, Starting on Mon03/14/24 at 1500, , Apply to affected area naloxone (Narcan) injection 0.4 mg 0.4 mg, IntraVENous, Every 5 min PRN, opioid reversal, respiratory depression, Starting on Mon03/14/24 at 1502, +++ For RR <10, pinpoint pupils, over sedation for opioid reversal - MUST notify piped buttonhole machine operator provider immediately after first dose, may give IM or SQ if no IV access +++ ondansetron (Zofran) injection 4 mg(Linked Group 3) 4 mg, IntraVENous, Every 6 hours PRN, nausea, vomiting, Starting on Lali 24 at 1500, , 1st Line. Give IV if patient is unable to take orally. If inadequate response within 60 minutes, proceed to next-line agent or contact provider if no further options ordered. ondansetron ODT (Zofran-ODT) disintegrating tablet 4 mg(Linked Group 3) 4 mg, Oral, Every 8 hours PRN, nausea, vomiting, Starting on Lali 03/14/24 at 1500, , 1st Line. If inadequate response within 60 minutes, proceed to next-line agent or contact provider if no further options ordered. Patient should allow tablet to dissolve on tongue. Do not remove from blister pack until just before administering. oxyCODONE (Roxicodone) immediate release tablet 10 mg(Linked Group 4) 10 mg, Oral, Every 4 hours PRN, severe pain (7-10), Starting on Lali 24 at 1500, 0058 (See Alternative - Provider: Yaritza Sanford RN)1401 (See Alternative - Provider: Maryellen Lawson RN)1758 (See Alternative - Provider: Maryellen Lawson, HENRIQUE)2202 (Given - Provider: Sonja Phipps RN) 0314 (See Alternative - Provider: Sonja Phipps RN)0910 (See Alternative - Provider: Hollie Avalos, RN)1308 (Given - Provider: Hollie Avalos, RN)1703 (Given - Provider: Yolanda Quigley RN)2306 (See Alternative - Provider: Sonja Phipps, HENRIQUE) 0554 (See Alternative - Provider: Sonja Phipps RN)1029 (See Alternative - Provider: Maryellen Posey, HENRIQUE)1448 (See Alternative - Provider: Maryellen Posey, RN)1835 (See Alternative - Provider: Maryellen Posey, RN) oxyCODONE (Roxicodone) immediate release tablet 5 mg(Linked Group 4) 5 mg, Oral, Every 4 hours PRN, moderate pain (4-6), Starting on Lali 03/14/24 at 1500, 0058 (Given - Provider: Yaritza Sanford, HENRIQUE)1401 (Given - Provider: Maryellen Lawson, HENRIQUE)1758 (Given - Provider: Maryellen Lawson, RN)2202 (See Alternative - Provider: Sonja Phipps, RN) 0314 (Given - Provider: Sonja Phipps, RN)0910 (Given - Provider: Hollie Avalos RN)1308 (See Alternative - Provider: Hollie Avalos RN)1703 (See Alternative - Provider: Yolanda Quigley RN)2306 (Given - Provider: Sonja Phipps, HENRIQUE) 0554 (Given - Provider: Sonja Phipps RN)1029 (Given - Provider: Maryellen Posey, HENRIQUE)1448 (Given - Provider: Maryellen Posey, RN)1835 (Given - Provider: Maryellen Posey, RN) simethicone (Mylicon) chewable tablet 80 mg 80 mg, Oral, Every 6 hours PRN, flatulence, cramping, Starting on Lali 03/14/24 at 1500, sodium chloride 0.9 % infusion 5-250 mL/hr, IntraVENous, PRN, if patient receiving piggyback infusions and maintenance fluids are not ordered OR KVO fluids to protect IV site / prevent frequent line interruptions/ long duration, Starting on Lali 03/14/24 at 1500, , For piggyback infusion, administer at same rate as piggyback for a total of 25 mL. Enter 25 mL into dose field and piggyback rate into rate field of order. If piggyback is infusing at a rate less than 100 mL/hr, enter 25 mL into dose field and 100 mL/hr into rate field of order. For KVO fluids, enter rate of 20 mL/hr or less into rate field of order. sodium chloride 0.9 % infusion 5-250 mL/hr, IntraVENous, PRN, if patient receiving piggyback infusions and maintenance fluids are not ordered OR KVO fluids to protect IV site / prevent frequent line interruptions/ long duration, Starting on Mon03/15/24 at 0813, Recovery (only), For piggyback infusion, administer at same rate as piggyback for a total of 25 mL. Enter 25 mL into dose field and piggyback rate into rate field of order. If piggyback is infusing at a rate less than 100 mL/hr, enter 25 mL into dose field and 100 mL/hr into rate field of order. For KVO fluids, enter rate of 20 mL/hr or less into rate field of order. sodium chloride 0.9% (NS) flush 10 mL 10 mL, IntraVENous, PRN, line care, Starting on Mon03/15/24 at 0813, Recovery (only), After every IV line use sodium chloride 0.9% (NS) flush 5-40 mL 5-40 mL, IntraVENous, PRN, line care, After every IV line use, Starting on Mon03/14/24 at 1500, , or Line Patency: Peripheral IV = 5 mL; Midline or Central Line = 10 mL/lumen. If following IV push medication, administer flush at same rate as the IV push. Flush volume is determined by type of infusion therapy being given. For non-viscous solutions use: Peripheral IV = 5 mL Midline or Central Line = 10 mL/lumen For viscous solutions (i.e. blood components, parenteral nutrition, contrast media, or after obtaining blood sample) use: Peripheral IV = 10 mL Midline or Central Line = 20 mL/lumen Linked Groups Order Group 1: labetalol (Normodyne,Trandate) injection 5 mgJump to med 5 mg, IntraVENous, Every 10 min PRN, high blood pressure, for SBP greater than 160 mmHg for 2 consecutive measurements taken from different sites., Starting on Mon03/15/24 at 0813, For 2 doses, Recovery (only), PRN for SBP >160 for 2 consecutive measurements, if HR is 60 or greater. If beta felix is contraindicated (HR less than 60, heart block, COPD or asthma) use hydralazine IV order. Or hydrALAZINE (Apresoline) injection 5 mgJump to med 5 mg, IntraVENous, Every 15 min PRN, high blood pressure, for SBP greater than 160 mmHg for 2 consecutive measurements taken from different sites, Starting on Mon03/15/24 at 0813, For 2 doses, Recovery (only), PRN for SBP > 160 for 2 consecutive measurements, and if one of the following conditions is met: 1) If IV labetolol is ineffective. 2) If HR is under 60. 3) If patient has heart block, COPD or asthma. If both labetalol and hydralazine ineffective, notify anesthesia provider. Group 2: HYDROmorphone (Dilaudid) injection 0.25 mgJump to med 0.25 mg, IntraVENous, Every 3 hours PRN, moderate pain (4-6), Starting on Lali 03/14/24 at 1500, , If oral and IV narcotics ordered, use oral first and only use IV if oral is ineffective or cannot take oral. Do Not give oral and IV within 1 hour of each other unless specifically ordered. Or HYDROmorphone (Dilaudid) injection 0.5 mgJump to med 0.5 mg, IntraVENous, Every 3 hours PRN, severe pain (7-10), Starting on Lali 03/14/24 at 1500, , If oral and IV narcotics ordered, use oral first and only use IV if oral is ineffective or cannot take oral. Do Not give oral and IV within 1 hour of each other unless specifically ordered. Group 3: ondansetron ODT (Zofran-ODT) disintegrating tablet 4 mgJump to med 4 mg, Oral, Every 8 hours PRN, nausea, vomiting, Starting on Lali 03/14/24 at 1500, , 1st Line. If inadequate response within 60 minutes, proceed to next- line agent or contact provider if no further options ordered. Patient should allow tablet to dissolve on tongue. Do not remove from blister pack until just before administering. Or ondansetron (Zofran) injection 4 mgJump to med 4 mg, IntraVENous, Every 6 hours PRN, nausea, vomiting, Starting on Lali 03/14/24 at 1500, , 1st Line. Give IV if patient is unable to take orally. If inadequate response within 60 minutes, proceed to next-line agent or contact provider if no further options ordered. Group 4: oxyCODONE (Roxicodone) immediate release tablet 5 mgJump to med 5 mg, Oral, Every 4 hours PRN, moderate pain (4-6), Starting on Lali 24 at 1500, Or oxyCODONE (Roxicodone) immediate release tablet 10 mgJump to med 10 mg, Oral, Every 4 hours PRN, severe pain (7-10), Starting on Lali 03/14/24 at 1500, Scheduled Medication Order 10/11/2024 10/12/2024 10/13/2024 acetaminophen (Tylenol) tablet 1,000 mg 1,000 mg, Oral, Every 8 hours, First dose on 10/12/24 at 0400, Maximum dose of acetaminophen is 4000 mg from all sources in 24 hours. 0400 (Not Given - Provider: Lucinda Poe RN - Reason: NPO)1107 (Given - Provider: Ashwini Lewis RN)1999 (Given - Provider: Lucinda Poe RN) 0433 (Given - Provider: Lucinda Poe RN)1200 (Canceled Entry - Provider: Automatic Discharge Provider - Comment: Automatically canceled at discontinue of medication order) cephalexin (Keflex) capsule 500 mg 500 mg, Oral, 2 times daily, First dose on 10/12/24 at 0900, Suspected Indication (Select all that apply): Urinary Tract Infection 1052 (Given - Provider: Ashwini Lewis RN)1999 (Given - Provider: Lucinda Poe RN) 0800 (Given - Provider: Ashwini Lewis RN) docusate sodium (Colace) capsule 100 mg 100 mg, Oral, 2 times daily, First dose on 10/12/24 at 0900, Do not crush or break. 1052 (Given - Provider: Ashwini Lewis RN)1999 (Given - Provider: Lucidna Poe RN) 08 (Given - Provider: Ashwini Lewis RN) famotidine (Pepcid) tablet 20 mg 20 mg, Oral, 2 times daily, First dose on 10/12/24 at 1130 1237 (Given - Provider: Ashwini Lewis RN)1999 (Given - Provider: Lucinda Poe RN) 08 (Given - Provider: Ashwini Lewis RN) phenazopyridine (Pyridium) tablet 200 mg 200 mg, Oral, 2 times daily, First dose on 10/12/24 at 0900 1052 (Given - Provider: Ashwini Lewis RN)1999 (Given - Provider: Lucinda Poe RN) 08 (Given - Provider: Ashwini Lewis RN) sodium chloride 0.9% (NS) flush 5-40 mL 5-40 mL, IntraVENous, Every 12 hours, First dose on 10/12/24 at 0400, For Line Patency: Peripheral IV = 5 mL; Midline or Central Line = 10 mL/lumen. If following IV push medication, administer flush at same rate as the IV push. Flush volume is determined by type of infusion therapy being given. For non-viscous solutions use: Peripheral IV = 5 mL Midline or Central Line = 10 mL/lumen For viscous solutions (i.e. blood components, parenteral nutrition, contrast media, or after obtaining blood sample) use: Peripheral IV = 10 mL Midline or Central Line = 20 mL/lumen 0400 (Given - Provider: Lucinda Poe RN)1600 (Not Given - Provider: Ashwini Lewis RN - Reason: IV Fluids Infusing) 0400 (Not Given - Provider: Lucinda Poe RN - Reason: IV Fluids Infusing) Continuous Medication Order 10/11/2024 10/12/2024 10/13/2024 lactated Ringer's infusion 100 mL/hr, IntraVENous, Continuous, Starting on 10/12/24 at 0515 0522 (New Bag - Provider: Lucinda Poe RN)1516 (New Bag - Provider: Ashwini Lewis, RN) 0126 (New Bag - Provider: Lucinda Poe RN)1121 (New Bag - Provider: Ashwini Lewis, HENRIQUE) PRN Medication Order 10/11/2024 10/12/2024 10/13/2024 naloxone (Narcan) injection 0.4 mg 0.4 mg, IntraVENous, Every 5 min PRN, opioid reversal, respiratory depression, Starting on 10/12/24 at 1122, +++ For RR <10, pinpoint pupils, over sedation for opioid reversal - MUST notify piped buttonhole machine operator provider immediately after first dose, may give IM or SQ if no IV access +++ ondansetron (Zofran) injection 4 mg(Linked Group 1) 4 mg, IntraVENous, Every 6 hours PRN, nausea, vomiting, Starting on 10/12/24 at 0351, 1st Line. Give IV if patient is unable to take orally. If inadequate response within 60 minutes, proceed to next-line agent or contact provider if no further options ordered. 1107 (See Alternative - Provider: Ashwini Lewis RN) ondansetron ODT (Zofran-ODT) disintegrating tablet 4 mg(Linked Group 1) 4 mg, Oral, Every 8 hours PRN, nausea, vomiting, Starting on 10/12/24 at 0351, 1st Line. If inadequate response within 60 minutes, proceed to next-line agent or contact provider if no further options ordered. Patient should allow tablet to dissolve on tongue. Do not remove from blister pack until just before administering. 1107 (Given - Provider: Ashwini Lewis, HENRIQUE) oxyCODONE (Roxicodone) immediate release tablet 5 mg 5 mg, Oral, Every 6 hours PRN, moderate pain (4-6), severe pain (7-10), Starting on 10/12/24 at 1121 1237 (Given - Provider: Ashwini Lewis, HENRIQUE)1829 (Given - Provider: Ashwini Lewis, HENRIQUE) polyethylene glycol (PEG) 3350 (Miralax) packet 17 g 17 g, Oral, Daily PRN, constipation, Starting on 10/12/24 at 0351, 1st line for treatment of constipation - give scheduled if no bowel movement in past 24 hours. sodium chloride 0.9 % infusion 5-250 mL/hr, IntraVENous, PRN, if patient receiving piggyback infusions and maintenance fluids are not ordered OR KVO fluids to protect IV site / prevent frequent line interruptions / long duration, Starting on 10/12/24 at 0351, For piggyback infusion, administer at same rate as piggyback for a total of 25 mL. Enter 25 mL into dose field and piggyback rate into rate field of order. If piggyback is infusing at a rate less than 100 mL/hr, enter 25 mL into dose field and 100 mL/hr into rate field of order. For KVO fluids, enter rate of 20 mL/hr or less into rate field of order. sodium chloride 0.9% (NS) flush 5-40 mL 5-40 mL, IntraVENous, PRN, line care, After every IV line use, Starting on 10/12/24 at 0351, For Line Patency: Peripheral IV = 5 mL; Midline or Central Line = 10 mL/lumen. If following IV push medication, administer flush at same rate as the IV push. Flush volume is determined by type of infusion therapy being given. For non-viscous solutions use: Peripheral IV = 5 mL Midline or Central Line = 10 mL/lumen For viscous solutions (i.e. blood components, parenteral nutrition, contrast media, or after obtaining blood sample) use: Peripheral IV = 10 mL Midline or Central Line = 20 mL/lumen Linked Groups Order Group 1: ondansetron ODT (Zofran-ODT) disintegrating tablet 4 mgJump to med 4 mg, Oral, Every 8 hours PRN, nausea, vomiting, Starting on 10/12/24 at 0351, 1st Line. If inadequate response within 60 minutes, proceed to next-line agent or contact provider if no further options ordered. Patient should allow tablet to dissolve on tongue. Do not remove from blister pack until just before administering. Or ondansetron (Zofran) injection 4 mgJump to med 4 mg, IntraVENous, Every 6 hours PRN, nausea, vomiting, Starting on 10/12/24 at 0351, 1st Line. Give IV if patient is unable to take orally. If inadequate response within 60 minutes, proceed to next-line agent or contact provider if no further options ordered. FOR RECORDS PERTAINING TO PATIENTS WHO ARE [...] BE BASED ON THE PRIMARY CLINICAL RECORDS. [employer] [facility]. provides no warranty or guarantee of the accuracy or completeness of information in this document.
[2025-03-25 04:07] LABS: PROGESTERONE 42.6 ng/mL (.)
== END | disposition home or self-care (01) ==
LOC: LAB 07:09
PROVIDERS: Referring Provider Obstetrics & Gynecology Reproductive Endocrinology; Visit Provider Obstetrics & Gynecology Reproductive Endocrinology
DX: Z31.49 Encounter for other procreative investigation and testing (principal)
CPT/HCPCS: 36415; 82670; 84144

== ENCOUNTER → 2025-03-28 | Outpatient (CLI) | payer BC, SELFPAY ==
--- OUTSIDE RECORDS SUMMARY | 2025-03-28 07:20 | XMS RPT_ITS | CCD ---
Author Organization [facility] Care Team Providers Care Industrial Psychologist Name Role Phone Zbigniew Matta MD Primary Care Provider CHERYL Melvin Primary Care Provider CHERYL Melvin Referring Provider Dr. Julianna Newman Attending Provider [phone] Dr. Julianna Newman Referring Provider [phone] Dr. Julianna Newman Other Provider CHERYL Melvin Primary Care Provider Dr. Julianna Newman Attending Provider CHERYL Melvin Referring Provider Marco Melvin PA-C Unavailable Gastroenterology Provider Unavailable Azael Dunn PA-C, Federico [...] Primary Care Unavailable YOLA SCHAFFER Admitting Unavailable CHERYL Melvin Primary Care Provider CHERYL Melvin Referring Provider Dr. Julianna Newman Attending Provider [phone] Dr. Venessa Newby Attending Provider [phone] Juancarlos LIBRARY MEDIA ASSISTANT, LIBRARY MEDIA ASSISTANT-C Denny Attending Provider [phone] Natalie Hopkins MA Unavailable Unavailable Unavailable Primary Care Provider Unavailsteffanie Nguyen MD, Jeff Primary Care Provider LUCILA HO Attending Unavailable BAY, JEFF Primary Care Unavailable JULIANNA VELARDE Referring Unavailab le TERESA, JULIANNA Attending Unavailable TERESA, JULIANNA Referring Unavailable BAY, JEFF Primary Care Unavailable BAY, JEFF Primary Care Unavailable TERESA, JULIANNA Attending Unavailable TERESA, JULIANNA Referring Unavailable BAY, JEFF Primary Care Unavailable BAY, JEFF Primary Care Unavailable HLAVATY, JADA Attending Unavailable HLAVATY, JADA Referring Unavailable SAUMYA MANCIA Attending Unavailable PRACHI, JULIANNA R Referring Unavailab le BAY, JEFF Primary Care Unavailable LUCILA HO Attending Unavailable LUCILA HO Referring Unavailable BAY, JEFF Primary Care Unavailable DENNY BAUER Referring Unavailable BAY, JEFF Primary Care Unavailable YOANNA SIMENTAL Attending Unavailable Marco Morales Primary Care Provider [phone] Marco Morales Referring Provider Adrián LIBRARY MEDIA ASSISTANT-CLilly Attending Provider Adrián LIBRARY MEDIA ASSISTANT-CLilly Referring Provider Dr. Julianna Newman DO Attending Provider Dr. Julianna Newman DO Referring Provider Dr. Yola Schaffer MD Other Provider Dr. Fern Marroquin DO Emergency Provider Marco Melvin Primary Care Provider BARAK COVARRUBIAS Admitting Unavailable BARAK COVARRUBIAS Attending Unavailable NONE, PCP Referring Unavailable OLEGARIO MARCO Primary Care Unavailable MANCIA, SAUMYA Admitting Unavailable REKHA ROD Consulting Unavailable CHRISTIANO AU Attending Unavailable Dr. Soren Babcock MD Emergency Provider [phone] Melvin PA, Marco Primary Care Provider Melvin PA, Marco Referring Provider Dr. Julianna Newman DO Attending Provider MELVIN PA-C, MARCO J Primary Care Unavailable JOHN NAYLOR MD Attending Unavailable DAYDAY GATES, JOHN Maravilla Attending Unavailable MELVIN PA-C, MARCO J Primary Care Unavailable JOHN NAYLOR MD Attending Unavailable MELVIN PA-C, MARCO J Primary Care Unavailable MELVIN PA-C, MARCO J Primary Care Unavailable JOHN NAYLOR MD Attending Unavailable MELVIN PA-C, MARCO J Primary Care Unavailable JOHN NAYLOR MD Attending Unavailable Melvin, Marco Primary Care Unavailable Lilly Sampson Attending Unavailable Lilly Sampson Referring Unavailable Melvin, Marco Primary Care Unavailable Yola Schaffer Attending Unavailable Yola Schaffer Referring Unavailable Melvin, Marco Primary Care Unavailable Fern Marroquin Attending Unavailable Julianna Newman Attending Unavailabl e Parage Julianna Villareal Referring Unavailabl e Melvin, Marco Primary Care Unavailable Julianna Newman Attending Unavailabl e Melvin, Marco Primary Care Unavailable Julianna Newman Referring Unavailabl e Melvin, Marco Primary Care Unavailable Yola Schaffer Consulting Unavailable Julianna Newman Attending Unavailabl e Melvin, Marco Primary Care Unavailable Fortune LIBRARY MEDIA ASSISTANT, Angelica Attending Unavailable Fortune LIBRARY MEDIA ASSISTANT, Angelica Referring Unavailable Melvin, Marco Primary Care Unavailable Soren Babcock Attending Unavailable Melvin, Marco Primary Care Unavailable Melvin, Marco Referring Unavailable Lilly Sampson Attending Unavailable Melvin, Marco Primary Care Unavailable Melvin, Marco Referring Unavailable Vande VeldeJulianna Attending Unavailabl e Allergies Allergy Classification Reported Allergen(s) Allergy Type Date of Onset Reaction(s) Facility (20 sources) Azithromycin; Translations: [AZITHROMYCIN] Drug Allergy 2 Rash, Other, Anaphylaxis, Blistering Rash, Hives, Other (See Comments), Shortness Of Breath, Swelling [facility] Work Phone: (20 sources) venlafaxine; Translations: [VENLAFAXINE] Drug Allergy 9 Other: See Comments, Other (See Comments) [facility] Work Phone: (20 sources) Zithromax *MACROLIDES* [facility] (6 sources) natural latex rubber Allergy to substance 4 Other [facility] Comment on above: Blisters with Bandai d use (5 sources) Latex; Translations: [LATEX] Propensity to adverse reactions 4 [facility] (1 source) Latex Propensity to adverse reactions 4 [facility] (1 source) Azithromycin Drug Allergy 5 [facility] (1 source) natural latex rubber Drug allergy (disorder) 5 [facility] (1 source) venlafaxine Drug Allergy 5 [facility] Medications Current Medications Medication Drug Class(es) [...] D Start: 10-11-2024 Cholecalcifero l (Vitamin D3) (D3-1999) 50 mcg (2,000 unit) capsule Active 2000 [...] 2023 1:00am October 03, 2023 11:24am Multivit 83-Edpl-Ebhlbz 1-Dh a (Pnv-Dha) 27 mg iron-1 mg -300 mg capsule (11 sources) Start: 01-14-2025 Multivit 47-Ir on-Folate 1-Dha (Pnv-Dha) 27 mg iron-1 mg -300 mg capsule Active 1 NMA PO DAILY 90 January 14, 2025 10:44am Start: 01-14-2025 End: 01-14-2025 Multivit 06-Bxsw-Agfghj 1-Dh a (Pnv-Dha) 27 mg iron-1 mg -300 mg capsule Discontinued 1 NMA PO DAILY 90 January 14, 2025 10:21am January 14, 2025 10:45am Start: 12-15-2023 End: 01-14-2025 Multivit 96-Lijj-Edwrle 1-Dh a (Pnv-Dha) 27 mg iron-1 mg -300 mg capsule Discontinued 1 NMA PO DAILY 01 07December 15, 2023 12:41pm January 14, 2025 10:21am Start: 12-15-2023 Multivit 47-Ir on-Folate 1-Dha (Pnv-Dha) 27 mg iron-1 mg -300 mg capsule Active 1 NMA PO DAILY December 15, 2023 12:41pm Start: 10-03-2023 End: 12-15-2023 Multivit 99-Rsmp-Jppzuq 1-Dh a (Pnv-Dha) 27 mg iron-1 mg -300 mg capsule Discontinued NMA PO October 03, 2023 12:00am December 15, 2023 12:42pm Start: 10-03-2023 Multivit 47-Ir on-Folate 1-Dha (Pnv-Dha) 27 mg iron-1 mg -300 mg capsule Active CAP PO October 03, 2023 12:00am Multivit Eks-Tiew-Jc-Herb 186 (Hair, Skin And Nails Advanced) 3.3 mg iron-25 mcg Tablet (1 source) Start: 08-20-2021 Multivit Abd-Xxcr-Dy-Herb 186 (Hair, Skin And Nails Advanced) 3.3 [...] 11-Oct-2023 Start: 10-03-2023 take 1 tablet by once daily Omeprazole 20 mg tablet,delayed release [...] mcg ; (28 mg iron- 800 mcg) XHP-IVNZUFNO-HQPX-FA PO (1 source) Start: 08-03-2023 VXW-BYTVYQRU-GQMM-FA PO daily 08/03/2023 Active Completed/Discontinued Medications Medication [...] (20 sources) Penicillin-class Antibacterial Start: 2 End: take 1 tablet by mouth twice daily [...] as needed. This order discontinued per -. betamethasone 3 mg/ml / betamethasone acetate 3 mg/ml injectable suspension (4 sources) Corticosteroid Start: 03-13-20 End: 03-14-20 inject 12 mg by intramuscular injection every twenty-four hours 12 mg, IntraMUSCular , Every 24 hours, First dose on Mon03/13/24 at 0915, For 2 doses Start: 03-07-2024 [...] Glucose Scanning Reade r (Freestyle Lexi 2 [place]) misc (3 sources) Start: 02-28-2024 End: 03-06-2025 Flash Glucose Scanning Reade r (Freestyle Lexi 2 [place]) misc Discontinued 0 .Route 1 0 February 28, 2024 12:00am March 06, 2025 2:43pm As directed Start: 02-28-2024 Flash Glucose Scanning [place] (Freestyle Lexi 2 [place]) misc Active 0 .Route 1 February 28, 2024 12:00am As directed Flash Glucose Sensor (Freest yle Lexi 2 Sensor) kit (3 sources) Start: 02-28-2024 [...] PRN, dry skin, nipple discomfort, Starting on Lali 03/14/24 at 1500, , Apply to affected area letrozole 2.5 mg oral tablet (20 sources) Aromatase Inhibitor Start: 12-14-2022 End: 09-08-2023 Letrozole (Femara) 2.5 mg tablet Discontinued 2.5 mg PO DAILY 5 5 2 December 14, 2022 12:00am September 08, 2023 2:16pm begin between days 2 and 5 of mentrual cycle Start: 04-13-2020 take 2 tablets by [facility] once daily letrozole (FEMARA) 2.5 mg tablet Take 2 tablets by mouth once daily. 10 tablet 2 04/13/2020 Active Comment on above: Take 2 tablets by [facility] once daily. 500 ml magnesium sulfate 40 mg/ml injection (6 sources) Start: 03-14-2024 End: 03-14-2024 1,000 mg/hr (25 mL/hr), IntraVENous, Administer over 12 Hours, Continuous, Starting on Lali 03/14/24 at 0545, For 12 hours, Pre-Infusion: Assess [...] (25 mL/hr), Intr aVENous, Continuous, Starting on 03/06/24 at 1745, For 48 hours, Pre-Delivery, Pre-Infusion: [...] 2024 12:00am March 06, 2025 2:43pm Pnv No.63-Iron,Dyjuzsxd-Jv-M mercedes (16 sources) Start: 12-14-2022 End: 09-08-2023 take 1 capsule by mouth once daily Pnv No.63-Iron,Dhoanmnd-Dy-Nvx Discontinued 1 CAP PO DAILY December 14, 2022 12:00am September 08, 2023 2:16pm Start: 12-14-2022 take 1 capsule by mo ut once daily Pnv No.63-Iron,Jbphocsr-Ar-Lev Active 1 CAP PO DAILY December 13, 2022 11:00pm Start: 12-14-2022 take 1 capsule by mo uth once daily Pnv No.63-Iron,Wyigefnr-Mw-Eyq Active 1 CAP PO DAILY December 14, 2022 12:00am Pnv No.63-Iron,Gtjuvbsy-Gw-G mercedes 27 mg iron- 800 mcg-200 mg capsule (3 sources) Start: 12-14-2022 End: 09-08-2023 Pnv No.63-Iron,Yqdmddhv-Hk-D mercedes 27 mg iron- 800 mcg-200 mg capsule Discontinued 1 NMA PO DAILY 90 December 14, 2022 12:00am September 08, 2023 2:16pm Start: 12-14-2022 End: 09-08-2023 Pnv No.63-Iron,Uvfecozg-Ro-S mercedes 27 mg iron- 800 mcg-200 mg capsule Discontinued 1 NMA PO DAILY December 14, 2022 12:00am September 08, 2023 2:16pm PNV no.95/ferrous fum/folic ac ( ORAL) (1 source) PNV no.95/ferrou s fum/folic ac ( ORAL) Take by mouth. 0 Active Comment on above: Take by mouth. Tnk878-Fufe-Hq-I7-Ver-Cjh-Q magy [Pnv No.151-Iron 27 Mg-Folic 800 Mcg-Omega3 260 Rx-Jng-Iin-Fish Capsule] (Pnv No.151-Iron 27 Mg-Folic 800 Mcg-Omega3 260 ) 27 mg iron-800 mcg-260 mg capsule (3 sources) Start: 10-11-2024 End: 01-14-2025 Wzb397-Kxrb-Sa-G5-Bxx-Gps-T magy [Pnv No.151-Iron 27 Mg-Folic 800 Mcg-Omega3 260 Je-Pyw-Fnz-Fish Capsule] (Pnv No.151-Iron 27 Mg-Folic 800 Mcg-Omega3 260 ) 27 mg iron-800 mcg-260 mg capsule Discontinued 1 NMA PO DAILY October 11, 2024 12:00am January 14, 2025 10:21am Start: 10-11-2024 Ljh702-Gyrq-Dc -W6-Tvf-Byu-Fish [Pnv No.151-Iron 27 Mg-Folic 800 Mcg-Omega3 260 Kz-Qpa-Uwe-Fish Capsule] (Pnv No.151-Iron 27 Mg-Folic 800 Mcg-Omega3 260 ) 27 mg iron-800 mcg-260 mg capsule Active 1 NMA PO DAILY October 11, 2024 12:00am polyethylene glycol 3350 81824 mg powder for oral solution (2 sources) Osmotic Laxative Start: 10-12-2024 End: 10-13-2024 take 17 g by mouth every twenty-four hours as needed for constipation polyethylene glycol 3350 367531 mg / potassium chloride 2970 mg / sodium bicarbonate 6740 mg / sodium chloride 5860 mg / sodium sulfate 38989 mg powder for oral solution (2 sources) Osmotic Laxative Start: 10-14-2024 End: 03-06-2025 Peg 3350-Electrolytes (Golytely) 236-22.74-6.74 -5.86 gram recon soln Discontinued 240 mL PO EVERY 10 MINUTES NEEDED 4000 0 October 14, 2024 12:00am March 06, 2025 2:43pm until fecal effluent is clear Vit,Kalpesh 99-Qyvp-Xerjt (Prenatabs Fa) 29-1 mg Tablet (1 source) Start: 08-20-2021 End: 10-14-2022 Vit,Kalpesh 50-Ytsc-Lpeva (Prenatabs Fa) 29-1 mg Tablet Discontinued 1 {tbl} PO DAILY August 20, 2021 1:00am October 14, 2022 2:49pm Vit,Cpdh81-Fbcm-Kud ic (Prenatabs Fa) 29-1 mg Tablet (20 sources) Start: 08-20-2021 End: 10-14-2022 Vit,Pqsn42-Affn-En lic (Prenatabs Fa) 29-1 mg Tablet Discontinued 1 {tbl} PO DAILY August 20, 2021 1:00am October 14, 2022 2:49pm Start: 08-20-2021 End: 10-14-2022 take 1 tablet by mouth once daily Vit,Fwyx03-Vuoj-Umgrq (Prenatab s Fa) 29-1 mg Tablet Discontinued 1 TABLET PO DAILY August 20, 2021 12:00am October 14, 2022 1:49pm Start: 08-20-2021 End: 10-14-2022 take 1 tablet by mouth once daily Vit,Agta03-Oohm-Dderq (Prenatab s Fa) 29-1 mg Tablet Discontinued 1 TABLET PO DAILY August 20, 2021 1:00am October 14, 2022 2:49pm Start: 08-20-2021 take 1 tablet by isabel th once daily Vit,Apec81-Ncgy-Vdmvn (Prenatab s Fa) 29-1 mg Tablet Active [...] hyperstimulation syndrome; 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] Onset: 5 10-11-2024 Episodic Comment on above: patient at [facility] for paracentesis- 10/11/24-10/13/24 Contraceptive and procreative management (2 sources) Encounter for other procreative investigation and testing; Translations: [Encounter for fertility testing] Onset: Episodic Diabetes or abnormal glucose tolerance complicating ; [...] in first trimester; Translations: [Threatened ] Onset: 4 09-19-2023 Episodic Inflammation; infection of eye (except [...] unspecified trimester] 10-03-2023 Episodic Comment on above: [id number], GERALD 4per [facility], Rene Other complications of [...] 36 weeks Residual codes; unclassified (3 sources) Other specified health status; Translations: [Other specified conditions influencing health status] 10-12-2023 Episodic Residual codes; unclassified (3 sources) Infertile 11-21-2023 [...] rarely noted. Note for Multiple chronic conditions follow-up": Patient is currently and due in mid-May.She reports that the omeprazole continues to work well for heartburn. 07-18-2024 Unclassified (2 sources) R10.2 - Pelvic and perineal pain Past or Other Problems Problem Classification Problem Date Documented Date Episodic/Chronic Abdominal pain (11 sources) Pain in pelvis; Translations: [Abdominal pain] Onset: 10-18-2024 Episodic Other and unspecified benign neoplasm (1 [...] vagina] Onset: 07-25-2024 Episodic Residual codes; unclassified (2 sources) History [...] sleeps 5 hours per night. Note for "Well adult female": Patient would like a refill of her [...] steroid creams w/ no improvement.). Note for "Skin ulceration": Type 1 DM runs in family 09-27-2022 [...] runny nose or sore throat. Note for "Eye symptoms": She usually wears daily contacts. Patient has [...] asthma or recurrent ear infections. Note for "Upper respiratory infection": chest and back hurt from coughing and gets winded easily - wakes up at night from coughing ALONSO 04/26/22 BISHNU mack [facility] 05-12-2022 Unclassified (20 sources) Cold Symptoms [...] an individual with similar symptoms (works at [employer]), but has not been exposed to an individual with strep or secondhand smoke. Medical history includes tonsillectomy, but patient denies history of seasonal allergies, recurrent sinusitis, recurrent strep pharyngitis, asthma or recurrent ear infections. Note for "Upper respiratory infection": pt did an at home covid test yesterday -- negativeshe did have tessalon perles on hand from [facility] and starting using them today - she feels this is helping with her coughPatient is requesting a refill of her omeprazole.Patient reports that she is vaping much more than she used to and she is interested in quitting. She uses a vape that contains nicotine. She reports vaping "all day" at this point. She was able to [...] include other (fatigue, hair loss). Note for "Laboratory test results follow-up": pts TSH was 0.564 - the nurse [...] seasonal allergies or recurrent sinusitis. Note for "Sore throat": Patient denies any runny nose or nasal [...] change, suicidal thoughts or vomiting. Note for "Anxiety": Patient has been to counseling in the [...] associated with anorexia and diarrhea. Note for "Abdominal pain": Patient reports that she has felt a [...] Test Name Value Interpretation Reference Range Facility PROGESTERONE 4317on 03-25-20 PROGESTERONE 42.6 ng/mL Normal . [facility] Comment on above: Order Comment: N Result Comment: Foll icular phase 0.1 - 0.9 Luteal phase 1.8 - 23.9 Ovulation phase 0.1 - 12.0 First trimester 11.0 - 44.3 Second trimester 25.4 - 83.3 Third trimester 58.7 - 214.0 Postmenopausal 0.0 - 0.1 Performed at: [address] [id number] [place]na Caregiver: Heri Louis PhD, Phone: [phone] Performed By: #### L [id number], L803.2603 #### [facility] [address] [place], [place], [id number] Estradiolon 03-24-2025 ESTRADIOL 591.0 pg/mL Normal [facility] Comment on above: Result Comment: FEMA LES ADULT FEMALE: Premenopausal: 15-350 pg/mL(E2 levels vary widely through the menstrual cycle) Postmenopausal: <10 pg/mL MOHIT STAGES MEAN AGE REFERENCE RANGES Stage I(>14 days and prepubertal) 7.1 years Undetectable-20 pg/mLL Stage II 10.5 years Undetectable-24 pg/mL Stage III 11.6 years Undetectable-60 pg/mL Stage IV 12.3 years 15-85 pg/mL Stage V 14.5 years 15-350 pg/mL Puberty onset (transition from Mohit stage I to Mohit stage II) occurs for girls at a median age of 10.5 (/- 2) years. There is evidence that it may occur up to 1 year earlier in obese girls and in girls. Progression through Mohit stages is variable. Mohit stage V (adult) should be reached by age 18. Performed By: #### L 5237.1750, L801.2608 #### [facility] [address] [place], [place], [address] E2on 09-10-2025 Estradiol Level 983.94 pg/mL Normal [facility] Comment on above: Result Comment: Adult Female E2 Reference Ranges: Follicular phase 19.5 - 144.2 pg/mL Midcycle 63.9 - 356.7 pg/mL Luteal phase 55.8 - 214.2 pg/mL Post menopausal 0 - 33.2 pg/mL Performed By: #### E 2, LH, PROG #### [place] [address] LHon 03-12-2025 LH 5.8 mIU/mL Normal [facility] Comment on above: Result Comment: No te - New Reference Range in effect 20Adult Female LH Reference Ranges: Follicular phase 1.9 - 12.5 mIU/mL Midcycle phase 8.7 - 76.3 mIU/mL Luteal phase 0.5 - 16.9 mIU/mL Post menopausal 5.0 - 55.2 mIU/mL Performed By: #### E 2, LH, PROG #### [place] [address] PROGon 03-12-2025 Progesterone Level <0.2 Normal [facility] Comment on above: Result Comment: Adul t Female Progesterone Reference Ranges: Follicular phase <0.21 - 1.40 ng/mL Luteal phase 3.34 - 25.56 ng/mL Mid-Luteal phase 4.44 - 28.03 ng/mL Postmenopausal <0.21 - 0.73 ng/ml Female: First trimester 11.22 - 90.00 ng/ml Second trimester 25.55 - 89.40 ng/ml Third trimester 48.40 - 422.50 ng/ml Performed By: #### E 2, LH, PROG #### [place] [address] E2on 03-10-2025 Estradiol Level 73.69 pg/mL Normal [facility] Comment on above: Result Comment: Adult Female E2 Reference Ranges: Follicular phase 19.5 - 144.2 pg/mL Midcycle 63.9 - 356.7 pg/mL Luteal phase 55.8 - 214.2 pg/mL Post menopausal 0 - 33.2 pg/mL Performed By: #### L H, PROG, E2 #### [place] [id number] LHon 03-10-2025 LH 8.0 mIU/mL Normal [facility] Comment on above: Result Comment: No te - New Reference Range in effect 20Adult Female LH Reference Ranges: Follicular phase 1.9 - 12.5 mIU/mL Midcycle phase 8.7 - 76.3 mIU/mL Luteal phase 0.5 - 16.9 mIU/mL Post menopausal 5.0 - 55.2 mIU/mL Performed By: #### L H, PROG, E2 #### [place] [address] PROGon 03-10-2025 Progesterone Level 0.2 ng/mL Normal [facility] Comment on [...] By: #### L H, PROG, E2 #### [place] [address] E2on 03-07-2025 Estradiol Level 74.44 pg/mL Normal [facility] Comment on above: Result Comment: Adult Female E2 Reference Ranges: Follicular phase 19.5 - 144.2 pg/mL Midcycle 63.9 - 356.7 pg/mL Luteal phase 55.8 - 214.2 pg/mL Post menopausal 0 - 33.2 pg/mL Performed By: #### L H, E2, PROG #### [place] [address] LHon 03-07-2025 LH 4.0 mIU/mL Normal [facility] Comment on above: Result Comment: No te - New Reference Range in effect 20Adult Female LH Reference Ranges: Follicular phase 1.9 - 12.5 mIU/mL Midcycle phase 8.7 - 76.3 mIU/mL Luteal phase 0.5 - 16.9 mIU/mL Post menopausal 5.0 - 55.2 mIU/mL Performed By: #### Ricky 2, LH, PROG #### [address] [address] PROGon 03-07-2025 Progesterone Level <0.2 Normal [facility] [...] By: #### E 2, LH, PROG #### [address] [address] Cement Mixer Office Visit Reporton 03-06-2025 Cement Mixer Office Visit Report [facility] [address], [address] [place] [address] OFFICE VISIT Date of Service: 03/06/25 MR#: [id number] Acct: [id number] Name: JOSE EDWARD Rep #: [id number] : 1995 Provider: Dr. 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[place] [employer] Required: No Is patient in pain?: No [...] polyp Abnormal uterine bleeding (AUB) Surgical History Boyce teeth extracted History of hysteroscopy Status post laparoscopy S/P D C (status post dilation and curettage) Hx of lumpectomy History of tonsillectomy and adenoidectomy Family History Mother Diabetes Uncle Diabetes Grandmother Diabetes Social History (Updated 03/06/25 @ 14:47 by Dunia Fuentes) adopted: No household members: spouse number of children: 1 current occupational status: employed current occupation: [employer] current occupational exposures/hazards: No pets and animals: Yes (Avoid litterbox) pets and animals: cat(s) and dog(s) history of recent travel: Yes ([facility]) out of state: Yes out of country: No sexually active: Yes Smoking Status: Former smoker Electronic Cigarette Use: with nicotine alcohol intake: never substance use type: does not use well-balanced diet: daily or most days caffeine: No eating out: 1-3 times/week during the past year weight has: increased > 10 lbs what type of physical activity do you participate in: none jessica/tenriism: Orthodoxy seatbelt use: always do you feel safe at home: Yes additional social history: - Rene- Chuck History 3 Elective abortions Hx Para 1 Spontaneous abortions 2 Hx # Term Pregnancies Ectopic pregnancies Hx # Pregnancies 1 Multiple births # of living children 1 Past Pregnancies Del. Date Name GA/Weeks Outcome Route Bth Weight Gen Labor Lgth Anesthesia Del Locatn Provider [...] No Menopausal Symptoms: (more content not included)... Normal [facility] E2on 02-28-2025 Estradiol Level 44.61 pg/mL Normal [facility] Comment on above: Result Comment: Adult Female E2 Reference Ranges: Follicular phase 19.5 - 144.2 pg/mL Midcycle 63.9 - 356.7 pg/mL Luteal phase 55.8 - 214.2 pg/mL Post menopausal 0 - 33.2 pg/mL Performed By: #### E 2, LH, PROG #### [place] [address] FSHon 02-28-2025 FSH 6.6 mIU/mL Normal [facility] Comment on above: Result Comment: Adul t Female FSH Reference Ranges (05/26/99): Follicular phase 2.5 - 10.2 mIU/mL Midcycle phase 3.4 - 33.4 mIU/mL Luteal phase 1.5 - 9.1 mIU/mL Post menopausal 23.0 -116.3 mIU/mL Adult Male: 1.4 - 18.1 mIU/mL Performed By: #### E 2, LH, PROG #### [place] [address] FT3on 02-28-2025 Free T3 [Mass/Vol] 2.68 pg/mL Normal 2.30-4.20 [facility] Comment on above: Performed By: #### E 2, LH, PROG #### [place] [address] FT4on 02-28-2025 Free T4 [Mass/Vol] 1.24 ng/dL Normal 0.89-1.76 [facility] Comment on above: Result Comment: No te - New Reference Range in effect 20 Performed By: #### E 2, LH, PROG #### [place] [address] HCGon 02-28-2025 Date of LMP 02/26/2025 Normal [facility] Comment on above: Performed By: #### E 2, LH, PROG #### [place] [address] hCG, quantitative <1.0 Normal [facility] Comment on above: Performed By: #### E 2, LH, PROG #### [place] [address] LHon 08-29-2025 LH 6.1 mIU/mL Normal [facility] Comment on above: Result Comment: No te - New Reference Range in effect 20 Adult Female LH Reference Ranges: Follicular phase 1.9 - 12.5 mIU/mL Midcycle phase 8.7 - 76.3 mIU/mL Luteal phase 0.5 - 16.9 mIU/mL Post menopausal 5.0 - 55.2 mIU/mL Performed By: #### E 2, LH, PROG #### [place] [address] PROGon 02-28-2025 Progesterone Level 0.3 ng/mL Normal [...] By: #### E 2, LH, PROG #### [place] [id number] TSHon 02-28-2025 TSH 0.688 mIU/mL Normal 0.550-4.780 [facility] MASSILLON Comment on above: Performed By: #### E 2, LH, PROG #### [place] [address] Urine Cultureon 10-15-2024 URC Culture exhibits no growth. Normal [facility] Comment on above: Performed By: #### L 3300.1750, L801.2600 #### [facility] [address] [place], [address] Abdomen Single View (Portabl e)on 10-14-2024 Abdomen Single View (Portable) [facility] [address] [place], [place] [id number] Abdomen Single View (Portable) MR#: [id number] Acct: [id number] Name: JOSE EDWARD Rep #: [id number] : 1995 F 29 From: Nataliya Brown DO PCP: CHERYL Samano Status: PRE ER Study: Abdomen Single View (Portable) Date of Exam: 0 10/14/24 Exam# [id number] Ordering Dr: Anabella Malave PROCEDURE: ABDOMEN SINGLE VIEW (PORTABLE) 10/14/2024 REASON FOR EXAM: ABDOMINAL PAIN, CONSTIPATION TECHNIQUE: Single view abdomen. COMPARISON: None FINDINGS: Bowel gas: Nonobstructive bowel gas pattern. No evidence of obstruction. Mild stool burden within the large bowel. Calcifications: No suspicious calcifications. Bones: The bones are unremarkable. Other: RAD/Abdomen Single View (Portable) IMPRESSION: CONSTIPATION. Reading Location: [facility] CC: CHERYL Weinstein; CHERYL Samano Pony Rougher: Signed Normal [facility] Absolute neutrophil countOrd ered By: Soren Babcock on 10-14-2024 Neutrophils (Bld) [#/Vol] 7.7 10*3/uL 2.0-7.7 [facility] Amorphous sediment detection in urine sediment by light microscopyOrdered By: Anabella Malave on 10-14-2024 Amorphous sediment LM Ql (Urine sed) 1+ PHOS [facility] Anion gap in Serum or Plasma Ordered By: Soren Babcock on 10-14-2024 Anion gap [Moles/Vol] 11 mmol/L 5-15 [facility] BUN/creatinine ratioOrdered By: Soren Babcock on 10-14-2024 Urea nitrogen/Creatinine [Mass ratio] 15.2 mg/mg 10-20 [facility] Basophil percentageOrdered B y: Soren Babcock on 10-14-2024 Basophils/100 WBC (Bld) 0.2 % 0-1 [facility] Beta HCG ( test) Ql Ordered By: Soren Babcock on 10-14-2024 Serum Test, Qualitative Negative [facility] Bilirubin Test strip Ql (U)O rdered By: Anabella Malave on 10-14-2024 Bilirubin Ql (U) 3 mg/dL High Negative [facility] Comment on above: COLOR OF URINE MAY A FFECT DIPSTICK RESULTS. Bilirubin, totalOrdered By: Soren Babcock on 10-14-2024 Bilirubin [Mass/Vol] 0.56 mg/dL 0.00-1.30 [facility] CBC W/Diff, Automatedon 10-01 Absolute Lymph 2.42 X10 3/uL Normal 0.83-4.51 [facility] Comment on above: Performed By: #### L 100.0100, L700.6800, L501.2450, L500.4050 #### [facility] [address] [place], [address] Absolute Neut 7.7 X10 3/uL Normal 2.0-7.7 [facility] Comment on above: Performed By: #### L 100.0100, L700.6800, L501.2450, L500.4050 #### [facility] [address] [place], [address] Basophils/100 WBC (Bld) 0.2 % Normal 0-1 [facility] Comment on above: Performed By: #### L 100.0100, L700.6800, L501.2450, L500.4050 #### [facility] [address] [place], [address] Eosinophils/100 WBC (Bld) 1.6 % Normal 0-5 [facility] Comment on above: Performed By: #### L 100.0100, L700.6800, L501.2450, L500.4050 #### [facility] [address] [place], [address] Erythrocyte distribution width (RBC) [Ratio] 14.4 % Normal 11.6-14.6 [facility] Comment on above: Performed By: #### L 100.0100, L700.6800, L501.2450, L500.4050 #### [facility] [address] [place], [address] Hematocrit (Bld) [Volume fraction] 32.0 % Low 37-47 [facility] Comment on above: Performed By: #### L 100.0100, L700.6800, L501.2450, L500.4050 #### [facility] [address] [place], [address] Hemoglobin (Bld) [Mass/Vol] 10.4 g/dL Low 12.0-15.0 [facility] Comment on above: Performed By: #### L 100.0100, L700.6800, L501.2450, L500.4050 #### [facility] [address] [place], [address] IG% 0.500 Normal 0.0-0.9 [facility] Comment on above: Result Comment: IG% - Immature Granulocytes (promyelocytes, myelocytes and metamyelocytes) > 1% indicates that a LEFT SHIFT is Present. Performed By: #### L 100.0100, L700.6800, L501.2450, L500.4050 #### [facility] [address] [place], [address] Lymphocytes/100 WBC (Bld) 21.9 % Normal 19-41 [facility] Comment on above: Performed By: #### L 100.0100, L700.6800, L501.2450, L500.4050 #### [facility] [address] [place], [address] MCH (RBC) [Entitic mass] 29.9 pg Normal 27.0-32.0 [facility] Comment on above: Performed By: #### L 100.0100, L700.6800, L501.2450, L500.4050 #### [facility] [address] [place], [address] MCHC (RBC) [Mass/Vol] 32.5 g/dL Normal 32-36 [facility] Comment on above: Performed By: #### L 100.0100, L700.6800, L501.2450, L500.4050 #### [facility] [address] [place], [address] MCV (RBC) [Entitic vol] 92.0 fL Normal 81-99 [facility] Comment on above: Performed By: #### L 100.0100, L700.6800, L501.2450, L500.4050 #### [facility] [address] [place], [address] Monocytes/100 WBC (Bld) 6.5 % Normal 0-10 [facility] Comment on above: Performed By: #### L 100.0100, L700.6800, L501.2450, L500.4050 #### [facility] [address] [place], [address] Neutrophils/100 WBC (Bld) 69.3 % Normal 47-70 [facility] Comment on above: Performed By: #### L 100.0100, L700.6800, L501.2450, L500.4050 #### [facility] [address] [place], [address] Nucleated RBC (Bld) [#/Vol] 0 10*3/uL Normal 0-5 [facility] Comment on above: Performed By: #### L 100.0100, L700.6800, L501.2450, L500.4050 #### [facility] [address] [place], [address] Platelet mean volume (Bld) [Entitic vol] 9.2 fL Normal 6.2-12.0 [facility] Comment on above: Performed By: #### L 100.0100, L700.6800, L501.2450, L500.4050 #### [facility] [address] [place], [address] Platelets (Bld) [#/Vol] 237 10*3/uL Normal 150-450 [facility] Comment on above: Performed By: #### L 100.0100, L700.6800, L501.2450, L500.4050 #### [facility] [address] [place], [address] RBC (Bld) [#/Vol] 3.48 10*6/uL Low 4.2-5.4 [facility] Comment on above: Performed By: #### L 100.0100, L700.6800, L501.2450, L500.4050 #### [facility] [address] [place], [address] RDW SD 46.8 fl High 35.1-43.9 [facility] Comment on above: Performed By: #### L 100.0100, L700.6800, L501.2450, L500.4050 #### [facility] [address] [place], [address] WBC (Bld) [#/Vol] 11.1 10*3/uL High 4.4-11.0 [facility] Comment on above: Performed By: #### L 100.0100, L700.6800, L501.2450, L500.4050 #### [facility] [address] [place], [address] Carbon dioxide, total [Moles /volume] in Central venous bloodOrdered By: Soren Babcock on 10-14-2024 CO2 [Moles/Vol] 24.3 mmol/L 21.0-32.0 [facility] Chloride assayOrdered By: Ayan Babcock on 10-14-2024 Chloride [Moles/Vol] 101 mmol/L 98-108 [facility] Comprehensive Metabolic Prof ilon 10-14-2024 Albumin [Mass/Vol] 4.0 g/dL Normal 3.5-5.0 [facility] Comment on above: Performed By: #### L 100.0100, L700.6800, L501.2450, L500.4050 #### [facility] [address] [place], [address] Albumin/Globulin [Mass ratio] 1.7 {ratio} Normal 0.9-2.4 [facility] Comment on above: Performed By: #### L 100.0100, L700.6800, L501.2450, L500.4050 #### [facility] [address] [place], [address] ALK PHOS 65 U/L Normal 35-104 [facility] Comment on above: Performed By: #### L 100.0100, L700.6800, L501.2450, L500.4050 #### [facility] [address] [place], [address] ALT [Catalytic activity/Vol] 14 U/L Normal <=34 [facility] Comment on above: Performed By: #### L 100.0100, L700.6800, L501.2450, L500.4050 #### [facility] [address] [place], [address] AST [Catalytic activity/Vol] 19 U/L Normal <=31 [facility] Comment on above: Performed By: #### L 100.0100, L700.6800, L501.2450, L500.4050 #### [facility] [address] [place], [address] Bilirubin [Mass/Vol] 0.56 mg/dL Normal 0.00-1.30 [facility] Comment on above: Performed By: #### L 100.0100, L700.6800, L501.2450, L500.4050 #### [facility] [address] [place], [address] BUN/CRE 15.2 RATIO Normal 10-20 [facility] Comment on above: Performed By: #### L 100.0100, L700.6800, L501.2450, L500.4050 #### [facility] [address] [place], [address] Calcium [Mass/Vol] 8.8 mg/dL Normal 7.6-11.0 [facility] Comment on above: Performed By: #### L 100.0100, L700.6800, L501.2450, L500.4050 #### [facility] [address] [place], [address] Chloride [Moles/Vol] 101 mmol/L Normal 98-108 [facility] Comment on above: Performed By: #### L 100.0100, L700.6800, L501.2450, L500.4050 #### [facility] [address] [place], [address] CO2 [Moles/Vol] 24.3 mmol/L Normal 21.0-32.0 [facility] Comment on above: Performed By: #### L 100.0100, L700.6800, L501.2450, L500.4050 #### [facility] [address] [place], [address] Creatinine [Mass/Vol] 0.60 mg/dL Low 0.70-1.20 [facility] Comment on above: Performed By: #### L 100.0100, L700.6800, L501.2450, L500.4050 #### [facility] [address] [place], [address] ECRCL 141.63 ml/min Normal 50-250 [facility] Comment on above: Performed By: #### L 100.0100, L700.6800, L501.2450, L500.4050 #### [facility] [address] [place], [address] GAP 11 Normal 5-15 [facility] Comment on above: Performed By: #### L 100.0100, L700.6800, L501.2450, L500.4050 #### [facility] [address] [place], [address] GFR/1.73 sq M.predicted among non-blacks MDRD (S/P/Bld) [Vol rate/Area] 126 mL/min/{1.73_m2} Normal >60 [facility] Comment on above: Result Comment: mL/m in/1.73m2 CKD-EPI Creatinine Equation (2020) Performed By: #### L 100.0100, L700.6800, L501.2450, L500.4050 #### [facility] [address] [place], [address] Globulin (S) [Mass/Vol] 2.4 g/dL Normal 2.2-4.2 [facility] Comment on above: Performed By: #### L 100.0100, L700.6800, L501.2450, L500.4050 #### [facility] [address] [place], [address] Glucose [Mass/Vol] 112 mg/dL High 70-99 [facility] Comment on above: Performed By: #### L 100.0100, L700.6800, L501.2450, L500.4050 #### [facility] [address] [place], [address] Potassium [Moles/Vol] 3.7 mmol/L Normal 3.3-5.1 [facility] Comment on above: Performed By: #### L 100.0100, L700.6800, L501.2450, L500.4050 #### [facility] [address] [place], [address] Sodium [Moles/Vol] 137 mmol/L Normal 133-145 [facility] Comment on above: Performed By: #### L 100.0100, L700.6800, L501.2450, L500.4050 #### [facility] [address] [place], [address] T PROT 6.4 g/dL Normal 5.9-8.4 [facility] Comment on above: Performed By: #### L 100.0100, L700.6800, L501.2450, L500.4050 #### [facility] [address] [place], [address] Urea nitrogen [Mass/Vol] 9 mg/dL Normal 4-19 [facility] Comment on above: Performed By: #### L 100.0100, L700.6800, L501.2450, L500.4050 #### [facility] [address] [place], [address] Emergency Department Summary on 10-14-2024 Emergency Department Summary [facility] Medical Records Department [address] [place] [address] Emergency Department Summary 10/14/24 MR#: [id number] Acct: [id number] Name: JOSE EDWARD Rep #: [id number] : 1995 29 From: Soren Babcock MD PCP: CHERYL Samano Status:REG ER Location: ED HPI History of Present Illness Chief Complaint: Abd Pain Narrative Narrative: 29-year-old female presents with abdominal pain. On 10/11/2024 she drove to [place], [place] to have egg retrieval at a fertility clinic. They did the procedure vaginally and punctured her bladder while retrieving some eggs. They prescribed Keflex and Pyridium. She drove home that same day and developed chest pain, shortness of breath, nausea and abdominal pain and had difficulty emptying her bladder. She was evaluated at [facility] on the same day 10/[address] scan of chest abdomen pelvis negative for PE. There were enlarged ovaries with numerous cysts and moderate volume ascites compatible with ovarian hyperstimulation syndrome. She also had a [place] placed for urinary retention. She was transferred to [facility] for definitive treatment. She states they [...] and shortness of breath are much better. [facility] Medical History Abnormal uterine bleeding Conceived [...] ea 02/28/24 Unknown Rx (FreeStyle Lexi 2 [place]) flash glucose sensor (FreeStyle #1 ea 02/28/24 Unknown Rx Lexi 2 Sensor kit) PNV no.151-iron 27 mg-folic 800 1 cap PO DAILY 10/11/24 Unknown Hi story mcg-omega3 260 lg-wht-eeu-fish capsule ( Multi-DHA (with vitamin K)) cabergoline [...] Diabetes Uncle Diabetes Grandmother Diabetes Surgical History Boyce teeth extracted History of hysteroscopy Status post laparoscopy S/P D C (status post dilation and curettage) Hx of lumpectomy History of tonsillectomy and adenoidectomy Social History adopted: No household members: spouse number of children: 0 current occupational status: employed current occupation: [employer] current occupational exposures/hazards: No pets and animals: Yes (Avoid litterbox) pets and animals: (more content not included)... Normal [facility] Eosinophil percentageOrdered By: Soren Babcock on 10-14-2024 Eosinophils/100 WBC (Bld) 1.6 % 0-5 [facility] Epithelial cells.squamous LM Ql (Urine sed)Ordered By: Anabella Malave on 10-14-2024 Epithelial cells.squamous LM.HPF (Urine sed) [#/Area] 25 /[HPF] 5-10 [facility] Erythrocyte distribution wid th (RBC) [Ratio]Ordered By: Soren Babcock on 10-14-2024 Erythrocyte distribution width (RBC) [Entitic vol] 46.8 fL High 35.1-43.9 [facility] Erythrocyte distribution wid th ratioOrdered By: Soren Babcock on 10-14-2024 Erythrocyte distribution width (RBC) [Ratio] 14.4 % 11.6-14.6 [facility] Estimation of creatinine rory aranceOrdered By: Soren Babcock on 10-14-2024 Estimated Creatinine Clearance Calc 141.63 ml/min 50-250 [facility] GFR/1.73 sq M.predicted checo g non-blacks MDRD (S/P/Bld) [Vol rate/Area]Ordered By: Soren Babcock on 10-14-2024 Estimated GFR (MDRD) Non-Af Amer 126 >60 [facility] Comment on above: mL/min/1.73m2 CKD-EP I Creatinine Equation (2020) Glucose Ql (U)Ordered By: Carolyn Malave on 10-14-2024 Urine Glucose (UA) Normal mg/dl Normal [facility] Hematocrit Auto (Bld) [Volum e fraction]Ordered By: Soren Babcock on 10-14-2024 Hematocrit (Bld) [Volume fraction] 32.0 % Low 37-47 [facility] Hemoglobin measurementOrdere d By: Soren Babcock on 10-14-2024 Hemoglobin (Bld) [Mass/Vol] 10.4 g/dL Low 12.0-15.0 [facility] Immature granulocytes/100 WB C Auto (Bld)Ordered By: Soren Babcock on 10-14-2024 Immature granulocytes/100 WBC (Bld) 0.500 % 0.0-0.9 [facility] Comment on above: IG% - Immature Granu locytes (promyelocytes, myelocytes and metamyelocytes) > 1% indicates that a LEFT SHIFT is Present. Ketones Test strip Ql (U)Ord ered By: Anabella Malave on 10-14-2024 Ketones Ql (U) Negative Negative [facility] - Chemistry and C hemistry - challengeOrdered By: Soren Babcock on 10-14-2024 AST [Catalytic activity/Vol] 19 U/L <32 [facility] Lipaseon 10-14-2024 Lipase [Catalytic activity/Vol] 29 U/L Normal 13-75 [facility] Comment on above: Result Comment: Cyndi hawk note: LIPASE revised reference range effective 22. New Lipase methodology. Expected to produce lower values than the previous assay method. NEW Reference Range: 13 - 75 U/L Performed By: #### L 100.0100, L700.6800, L501.2450, L500.4050 #### [facility] [address] [place], [place], [id number] Lipase measurementOrdered By : Soren Babcock on 10-14-2024 Lipase [Catalytic activity/Vol] 29 U/L 13-75 [facility] Comment on above: Please note:LIPASE r evised reference range effective 22. New Lipase methodology. Expected to produce lower values than the previous assay method. NEW Reference Range: 13 - 75 U/L Lymphocytes Auto (Unsp spec) [#/Vol]Ordered By: Soren Babcock on 10-14-2024 Lymphocytes (Bld) [#/Vol] 2.42 10*3/uL 0.83-4.51 [facility] Lymphocytes/100 WBC Auto (Un sp spec)Ordered By: Soren Babcock on 10-14-2024 Lymphocytes/100 WBC (Bld) 21.9 % 19-41 [facility] MCV (mean corpuscular volume ) determinationOrdered By: Soren Babcock on 10-14-2024 MCV (RBC) [Entitic vol] 92.0 fL 81-99 [facility] Mean corpuscular hemoglobin (MCH) determinationOrdered By: Soren Babcock on 10-14-2024 MCH (RBC) [Entitic mass] 29.9 pg 27.0-32.0 [facility] Mean corpuscular hemoglobin concentration (MCHC) determinationOrdered By: Soren Babcock on 10-14-2024 MCHC (RBC) [Mass/Vol] 32.5 g/dL 32-36 [facility] Mean platelet volume determi nationOrdered By: Soren Babcock on 10-14-2024 Platelet mean volume (Bld) [Entitic vol] 9.2 fL 6.2-12.0 [facility] Microscopic analysis of urin e for red blood cells (RBC)Ordered By: Anabella Malave on 10-14-2024 Urine RBC 10-25 SEEN /hpf 0-5 [facility] Monocyte percentageOrdered B y: Soren Babcock on 10-14-2024 Monocytes/100 WBC (Bld) 6.5 % 0-10 [facility] Mucus LM Ql (Urine sed)Order ed By: Anabella Malave on 10-14-2024 Mucus Ql (Urine sed) 0 SEEN /hpf [facility] Neutrophil percentageOrdered By: Soren Babcock on 10-14-2024 Neutrophils/100 WBC (Bld) 69.3 % 47-70 [facility] Nitrite Test strip Ql (U)Ord ered By: Anabella Malave on 10-14-2024 Nitrite Ql (U) Positive High Negative [facility] Nucleated red blood cell per centageOrdered By: Soren Babcock on 10-14-2024 Nucleated RBC/100 WBC (Bld) [Ratio] 0 % 0-5 [facility] Platelet countOrdered By: Ayan Babcock on 10-14-2024 Platelets (Bld) [#/Vol] 237 10*3/uL 150-450 [facility] Potassium (Unsp spec) [Mass/ Vol]Ordered By: Soren Babcock on 10-14-2024 Potassium [Moles/Vol] 3.7 mmol/L 3.3-5.1 [facility] ,Serum,hCG Quali.on 10-14-2024 HCG, SERUM QUAL Negative Normal [facility] Comment on above: Performed By: #### L 100.0100, L700.6800, L501.2450, L500.4050 #### [facility] [place], [address] Protein Test strip Ql (U)Ord ered By: Anabella Malave on 10-14-2024 Protein Ql (U) 30 mg/dl High Negative [facility] RBC Auto (Bld) [#/Vol]Ordere d By: Soren Babcock on 10-14-2024 RBC (Bld) [#/Vol] 3.48 10*6/uL Low 4.2-5.4 [facility] Serum creatinine measurement (mass/volume)Ordered By: Soren Babcock on 10-14-2024 Creatinine [Mass/Vol] 0.60 mg/dL Low 0.70-1.20 [facility] Serum globulin measurementOr dered By: Soren Babcock on 10-14-2024 Globulin (S) [Mass/Vol] 2.4 g/dL 2.2-4.2 [facility] Serum glucose measurement (m ass/volume)Ordered By: Soren Babcock on 10-14-2024 Glucose [Mass/Vol] 112 mg/dL High 70-99 [facility] Serum or plasma alanine eric otransferase (ALT) measurementOrdered By: Soren Babcock on 10-14-2024 ALT [Catalytic activity/Vol] 14 U/L <35 [facility] Serum or plasma albumin shannon urement (mass/volume)Ordered By: Soren Babcock on 10-14-2024 Albumin [Mass/Vol] 4.0 g/dL 3.5-5.0 [facility] Serum or plasma albumin/glob ulin mass ratioOrdered By: Soren Babcock on 10-14-2024 Albumin/Globulin [Mass ratio] 1.7 {ratio} 0.9-2.4 [facility] Serum or plasma alkaline meredith sphatase measurementOrdered By: Soren Babcock on 10-14-2024 ALP [Catalytic activity/Vol] 65 U/L 35-104 [facility] Serum or plasma calcium shannon urement (mass/volume)Ordered By: Soren Babcock on 10-14-2024 Calcium [Mass/Vol] 8.8 mg/dL 7.6-11.0 [facility] Serum or plasma urea nitroge n measurement (mass/volume)Ordered By: Soren Babcock on 10-14-2024 Urea nitrogen [Mass/Vol] 9 mg/dL 4-19 [facility] Sodium levelOrdered By: Soren Babcock on 10-14-2024 Sodium [Moles/Vol] 137 mmol/L 133-145 [facility] Total proteinOrdered By: Max Babcock on 10-14-2024 Protein [Mass/Vol] 6.4 g/dL 5.9-8.4 [facility] Urinalysis, Completeon 10-14 AMORPHOUS 1+ PHOS Normal [facility] Comment on above: Order Comment: COLOR OF URINE MAY AFFECT DIPSTICK RESULTS. INFUSION RN TO SPECIFY Performed By: #### L 400.0001 #### [facility] [address] [place], [address] RBC 10-25 SEEN Normal 0-5 [facility] Comment on above: Order Comment: COLOR OF URINE MAY AFFECT DIPSTICK RESULTS. INFUSION RN TO SPECIFY Performed By: #### L 400.0001 #### [facility] [address] [place], [address] EPI,SQUAMOUS 25-50 SEEN Normal 5-10 [facility] Comment on above: Order Comment: COLOR OF URINE MAY AFFECT DIPSTICK RESULTS. INFUSION RN TO SPECIFY Performed By: #### L 400.0001 #### [facility] [address] [place], [address] WBC 0-5 SEEN Normal 0-5 [facility] Comment on above: Order Comment: COLOR OF URINE MAY AFFECT DIPSTICK RESULTS. INFUSION RN TO SPECIFY Performed By: #### L 400.0001 #### [facility] [address] [place], [address] BACTERIA 0 SEEN Normal None Seen [facility] Comment on above: Order Comment: COLOR OF URINE MAY AFFECT DIPSTICK RESULTS. INFUSION RN TO SPECIFY Performed By: #### L 400.0001 #### [facility] [address] [place], [address] Mucus Ql (Urine sed) 0 SEEN Normal [facility] Comment on above: Order Comment: COLOR OF URINE MAY AFFECT DIPSTICK RESULTS. INFUSION RN TO SPECIFY Performed By: #### L 400.0001 #### [facility] [address] [place], [address] Urine blood detectionOrdered By: Anabella Malave on 10-14-2024 Urine Occult Blood 150 /ul High Negative [facility] Urine clarityOrdered By: Sapna Malave on 10-14-2024 Clarity (U) Sl. Cloudy Clear [facility] Urine color determinationOrd ered By: Anabella Malave on 10-14-2024 Color (U) Rita Yellow [facility] Urine leukocyte esterase det ection by dipstickOrdered By: Anabella Malave on 10-14-2024 Leukocyte esterase Test strip Ql (U) 25 /ul High Negative [facility] Urine pHOrdered By: Anabella watters on 10-14-2024 pH (U) 7.0 [pH] 5.0 - 8.0 [facility] Urine sediment bacteria coun t by microscopy (number/high power field)Ordered By: Anabella Malave on 10-14-2024 Bacteria LM.HPF (Urine sed) [#/Area] 0 /[HPF] None Seen [facility] Urine specific gravity measu rementOrdered By: Anabella Malave on 10-14-2024 Specific gravity (U) [Rel density] 1.015 1.002-1.030 [facility] Urobilinogen Ql (U)Ordered B y: Anabella Malave on 10-14-2024 Urobilinogen (U) [Mass/Vol] 8 mg/dL High Normal [facility] White blood cell (WBC) count Ordered By: Soren Babcock on 10-14-2024 WBC (Bld) [#/Vol] 11.1 10*3/uL High 4.4-11.0 [facility] White blood cell countOrdere d By: Anabella Malave on 10-14-2024 Urine WBC 0-5 SEEN /hpf 0-5 [facility] 30on 10-13-2024 30 Problem: Pain - Adul [...] and maintained or improved Outcome: Progressing Normal [facility] CBC (HEMOGRAM)on 10-13-2024 Erythrocyte distribution width (RBC) [Ratio] 13.9 % Normal 11.5-15.0 [facility] Comment on above: Performed By: #### L [id number] ####Insurance Sales Specialist: GYPSY DAY ([phone])[address] Hematocrit (Bld) [Volume fraction] 28.9 % Low 35.0-47.0 [facility] Comment on above: Performed By: #### L [id number] ####Insurance Sales Specialist: GYPSY DAY ([phone])[facility])[address] [place] [address] Hemoglobin (Bld) [Mass/Vol] 9.3 g/dL Low 11.7-16.0 [facility] Comment on above: Performed By: #### L [id number] ####Insurance Sales Specialist: GYPSY DAY ([phone])[address] MCH (RBC) [Entitic mass] 29.5 pg Normal 26.0-34.0 [facility] Comment on above: Performed By: #### L [id number] ####Insurance Sales Specialist: GYPSY DAY ([phone])[address] MCHC 32.2 % Normal 30.5-36.0 [facility] Comment on above: Performed By: #### L [id number] ####Insurance Sales Specialist: GYPSY DAY ([phone])[address] MCV (RBC) [Entitic vol] 91.7 fL Normal 77.0-99.0 [facility] Comment on above: Performed By: #### L [id number] ####Insurance Sales Specialist: GYPSY DAY ([phone])[address] Platelet mean volume (Bld) [Entitic vol] 9.6 fL Normal 9.0-12.7 [facility] Comment on above: Performed By: #### L [id number] ####Insurance Sales Specialist: GYPSY DAY ([phone])[facility] ([facility])[address] [place] [address] Platelets (Bld) [#/Vol] 227 10*3/uL Normal 140-440 [facility] Comment on above: Performed By: #### L [id number] ####Insurance Sales Specialist: GYPSY DAY ([phone])[facility])[address] [place] [address] RBC (Bld) [#/Vol] 3.15 10*6/uL Low 3.80-5.20 [facility] Comment on above: Performed By: #### L [id number] ####Insurance Sales Specialist: GYPSY DAY ([phone])[facility])[address] [place] [address] WBC (Bld) [#/Vol] 12.4 10*3/uL High 3.6-10.7 [facility] Comment on above: Performed By: #### L [id number] ####Insurance Sales Specialist: GYPSY DAY ([phone])[facility] ([facility])[address] [place] [address] CBC panel Auto (Bld)on 10-13 Erythrocyte distribution width (RBC) [Ratio] 13.9 % 11.5 - 15.0 % [facility] Hematocrit (Bld) [Volume fraction] 28.9 % Low 35.0 - 47.0 % [facility] Hemoglobin (Bld) [Mass/Vol] 9.3 g/dL Low 11.7 - 16.0 g/dL [facility] Interpretation and review of laboratory results Abnormal [facility] MCH (RBC) [Entitic mass] 29.5 pg 26.0 - 34.0 pg [facility] MCHC (RBC) [Mass/Vol] 32.2 % 30.5 - 36.0 % [facility] MCV (RBC) [Entitic vol] 91.7 fL 77.0 - 99.0 fL [facility] Platelet mean volume (Bld) [Entitic vol] 9.6 fL 9.0 - 12.7 fL [facility] Platelets (Bld) [#/Vol] 227 10*3/uL 140 - 440 10*3/uL [facility] RBC (Bld) [#/Vol] 3.15 10*6/uL Low 3.80 - 5.2 0 10*6/uL [facility] WBC (Bld) [#/Vol] 12.4 10*3/uL High 3.6 - 10.7 10*3/uL [facility] COMPREHENSIVE METABOLIC PANE Mahendra 10-13-2024 Albumin [Mass/Vol] 2.8 g/dL Low 3.5-5.0 [facility] Comment on above: Performed By: #### L [id number] ####Insurance Sales Specialist: GYPSY DAY ([phone])[facility] ([facility])[address] [place] [address] ALP [Catalytic activity/Vol] 49 U/L Normal 40-150 [facility] Comment on above: Performed By: #### L [id number] ####Insurance Sales Specialist: GYPSY DAY ([phone])[facility] ([facility])[address] [place] [address] ALT [Catalytic activity/Vol] 9 U/L Normal <30 [facility] Comment on above: Performed By: #### L [id number] ####Insurance Sales Specialist: GYPSY DAY ([phone])[facility])[address] [place] [address] Anion gap [Moles/Vol] 4 mmol/L Normal 3-13 [facility] Comment on above: Performed By: #### L [id number] ####Insurance Sales Specialist: GYPSY DAY ([phone])[facility])[address] [place] [address] AST [Catalytic activity/Vol] 14 U/L Normal <34 [facility] Comment on above: Performed By: #### L [id number] ####Insurance Sales Specialist: GYPSY DAY ([phone])[facility])[address] [place] [address] Bilirubin [Mass/Vol] 0.2 mg/dL Normal <1.2 [facility] Comment on above: Performed By: #### L [id number] ####Insurance Sales Specialist: GYPSY DAY ([phone])[facility] ([facility])[address] [place] [address] Calcium [Mass/Vol] 7.9 mg/dL Low 8.4-10.2 [facility] Comment on above: Performed By: #### L [id number] ####Insurance Sales Specialist: GYPSY DAY ([phone])[facility] ([facility] [place] [address] [place] Chloride [Moles/Vol] 110 mmol/L High 98-107 [facility] Comment on above: Performed By: #### L [id number] ####Insurance Sales Specialist: GYPSY DAY ([phone])[facility] [place] [address] CO2 [Moles/Vol] 24 mmol/L Normal 22-29 [facility] Comment on above: Performed By: #### L [id number] ####Insurance Sales Specialist: GYPSY DAY ([phone])[facility])[address] [place] [address] Creatinine [Mass/Vol] 0.60 mg/dL Normal 0.57-1.11 [facility] Comment on above: Performed By: #### L [id number] ####Insurance Sales Specialist: GYPSY ADY ([phone])[facility] ([facility])[address] [place] [address] GLOMERULAR FILTRATION RATE ML/MIN/1.73 SQ M.PREDICTED >90.0 Normal >60.0 [facility] Comment on above: Result Comment: Calc ulation based on the Chronic Kidney Disease Epidemiology Collaboration (CKD-EPI) equation refit without adjustment for race Performed By: #### L [id number] ####Insurance Sales Specialist: GYPSY DAY ([phone])[facility] ([facility])[address] [place] [address] Glucose [Mass/Vol] 96 mg/dL Normal 74-100 [facility] Comment on above: Performed By: #### L [id number] ####Insurance Sales Specialist: GYPSY DAY ([phone])[facility] ([facility])[address] [place] [address] Potassium [Moles/Vol] 3.8 mmol/L Normal 3.5-5.1 [facility] Comment on above: Result Comment: [facility] potassium values may be up to 0.5 mmol/L lower than serum values. Performed By: #### L [id number] ####Insurance Sales Specialist: GYPSY DAY ([phone])[facility] ([facility])[address] [place] [address] Protein [Mass/Vol] 4.9 g/dL Low 6.4-8.3 [facility] Comment on above: Performed By: #### L [id number] ####Insurance Sales Specialist: GYPSY DAY ([phone])[facility])[address] [place] [address] Sodium [Moles/Vol] 138 mmol/L Normal 136-145 [facility] Comment on above: Performed By: #### L [id number] ####Insurance Sales Specialist: GYPSY DAY ([phone])[facility] ([facility])[address] [place] [address] Urea nitrogen [Mass/Vol] 9 mg/dL Normal 8-21 [facility] Comment on above: Performed By: #### L [id number] ####Insurance Sales Specialist: GYPSY DAY ([phone])[facility])[address] [place] [address] Comprehensive metabolic 1998 panelon 10-13-2024 Albumin [Mass/Vol] 2.8 g/dL Low 3.5 - 5.0 g/dL [facility] ALP [Catalytic activity/Vol] 49 U/L 40 - 150 U/L [facility] ALT [Catalytic activity/Vol] 9 U/L NINF - 30 U/L [facility] Anion gap [Moles/Vol] 4 mmol/L 3 - 13 mmol/L [facility] AST [Catalytic activity/Vol] 14 U/L NINF - 34 U/L [facility] Bilirubin [Mass/Vol] 0.2 mg/dL NINF - 1.2 mg/dL [facility] Calcium [Mass/Vol] 7.9 mg/dL Low 8.4 - 10. 2 mg/dL [facility] Chloride [Moles/Vol] 110 mmol/L High 98 - 10 7 mmol/L [facility] CO2 [Moles/Vol] 24 mmol/L 22 - 29 mmol/L [facility] Creatinine [Mass/Vol] 0.6 mg/dL 0.57 - 1.11 mg/dL [facility] GFR/1.73 sq M.predicted (S/P/Bld) [Vol rate/Area] - PINF [facility] Comment on above: Calculation based on the Chronic Kidney Disease Epidemiology Collaboration (CKD-EPI) equation refit without adjustment for race Glucose [Mass/Vol] 96 mg/dL 74 - 100 mg/dL [facility] Interpretation and review of laboratory results Abnormal [facility] Potassium [Moles/Vol] 3.8 mmol/L 3.5 - 5.1 mmol/L [facility] Comment on above: Plasma potassium arsen ues may be up to 0.5 mmol/L lower than serum values. Protein [Mass/Vol] 4.9 g/dL Low 6.4 - 8.3 g/dL [facility] Sodium [Moles/Vol] 138 mmol/L 136 - 145 mmol/L [facility] Urea nitrogen [Mass/Vol] 9 mg/dL 8 - 21 mg/dL [facility] Guidance for paracentesis of Peritoneumon 10-13-2024 Insufficient fluid f or safe paracentesis. Report Dictated on Electronically Signed By: Yola Montiel MD Electronically Signed Date/Time: 10/13/2024 3:24 PM [facility] [place] [employer] [facility] 1995 [id number] Exam Date/Time: 10/13/2024 09:37 Procedure: US GUIDED [...] The procedure was terminated at this time. [facility] Keely Montiel MD - 10/13/2024 Patient Name: JOSE EDWARD [facility] 1995 [id number] Exam Date/Time: 10/13/2024 09:37 Procedure: US GUIDED [...] Electronically Signed Date/Time: 10/13/2024 3:24 PM EDT [facility] Radiology Study observation (narrative) [facility] [employer] Guidance for paracentesis of PeritoneumOrdered By: Keely Montiel on 10-13-2024 [employer] Work Phone: Progress Noteon 10-13-2024 Progress Note ---- -------- Attestation signed by Gypsy Pelayo MD at 10/13/2024 8:34 AM Hospital Care (Independent): I independently saw and evaluated the patient. I agree with the findings and plan of care as documented in the resident's note. Stable labs and patient without complaints except for bloating. Abd mildly, softly distended. Awaiting paracentesis today. -------- HIM TECH Progress Note Date: 10/13/2024 Time: 6:11 AM [...] Ringer's infusion, 100 mL/hr, IntraVENous, Continuous, Jade Waldropk, DO, Last Rate: 100 mL/hr at 10/13/24 [...] mg, 200 mg, Oral, BID, Jade Van Dianak, DO, 200 mg at 10/12/241999 polyethylene glycol [...] - 1 (more content not included)... Normal [facility] US GUIDED ABDOMINAL PARACENT ESISon 10-13-2024 US GUIDED ABDOMINAL PARACENTESIS Patient Name: JOES EDWARD : 1995 Exam Date/Time: 10/13/2024 09:37 [...] Signed Date/Time: 10/13/2024 3:24 PM EDT Normal [facility] 30on 10-12-2024 30 Problem: Pain - [...] and maintained or improved Outcome: Progressing Normal [facility] CBC (HEMOGRAM)on 10-12-2024 Erythrocyte distribution width (RBC) [Ratio] 13.2 % Normal 11.5-15.0 [facility] Comment on above: Performed By: #### L [id number] ####Insurance Sales Specialist: GYPSY DAY ([phone])[facility])[address] [place] [address] Hematocrit (Bld) [Volume fraction] 30.9 % Low 35.0-47.0 [facility] Comment on above: Performed By: #### L [id number] ####Insurance Sales Specialist: GYPSY DAY ([phone])[facility])[address] [place] [address] Hemoglobin (Bld) [Mass/Vol] 10.1 g/dL Low 11.7-16.0 [facility] Comment on above: Performed By: #### L [id number] ####Insurance Sales Specialist: GYPSY DAY ([phone])[facility])[address] [place] [address] IPF 2 Normal [facility] Comment on above: Performed By: #### L [id number] ####Insurance Sales Specialist: GYPSY DAY ([phone])[facility])[address] [place] [address] MCH (RBC) [Entitic mass] 29.0 pg Normal 26.0-34.0 [facility] Comment on above: Performed By: #### L [id number] ####Insurance Sales Specialist: GYPSY DAY ([phone])[facility])[address] [place] [address] MCHC 32.7 % Normal 30.5-36.0 [facility] Comment on above: Performed By: #### L [id number] ####Insurance Sales Specialist: GYPSY DAY ([phone])[facility])[address] [place] [address] MCV (RBC) [Entitic vol] 88.8 fL Normal 77.0-99.0 [facility] Comment on above: Performed By: #### L [id number] ####Insurance Sales Specialist: GYPSY DAY ([phone])[facility])[address] [place] [address] Platelet mean volume (Bld) [Entitic vol] 9.5 fL Normal 9.0-12.7 [facility] Comment on above: Performed By: #### L [id number] ####Insurance Sales Specialist: GYPSY DAY ([phone])[facility])[address] [place] [address] Platelets (Bld) [#/Vol] 292 10*3/uL Normal 140-440 [facility] Comment on above: Performed By: #### L [id number] ####Insurance Sales Specialist: GYPSY DAY ([phone])[facility] ([facility])[address] [place] [address] RBC (Bld) [#/Vol] 3.48 10*6/uL Low 3.80-5.20 [facility] Comment on above: Performed By: #### L [id number] ####Insurance Sales Specialist: GYPSY DAY ([phone])[facility] ([facility])[address] [place] [address] WBC (Bld) [#/Vol] 19.6 10*3/uL High 3.6-10.7 [facility] Comment on above: Performed By: #### L [id number] ####Insurance Sales Specialist: GYPSY DAY ([phone])[facility])[address] [place] [address] CBC panel Auto (Bld)on 10-12 Erythrocyte distribution width (RBC) [Ratio] 13.2 % 11.5 - 15.0 % [facility] Hematocrit (Bld) [Volume fraction] 30.9 % Low 35.0 - 47.0 % [facility] Hemoglobin (Bld) [Mass/Vol] 10.1 g/dL Low 11.7 - 16.0 g/dL [facility] Interpretation and review of laboratory results Abnormal [facility] IPF 2 [facility] MCH (RBC) [Entitic mass] 29 pg 26.0 - 34.0 pg [facility] MCHC (RBC) [Mass/Vol] 32.7 % 30.5 - 36.0 % [facility] MCV (RBC) [Entitic vol] 88.8 fL 77.0 - 99.0 fL [facility] Platelet mean volume (Bld) [Entitic vol] 9.5 fL 9.0 - 12.7 fL [facility] Platelets (Bld) [#/Vol] 292 10*3/uL 140 - 440 10*3/uL [facility] RBC (Bld) [#/Vol] 3.48 10*6/uL Low 3.80 - 5.2 0 10*6/uL [facility] WBC (Bld) [#/Vol] 19.6 10*3/uL High 3.6 - 10.7 10*3/uL [facility] COMPREHENSIVE METABOLIC PANE Mahendra 10-12-2024 Albumin [Mass/Vol] 3.2 g/dL Low 3.5-5.0 [facility] Comment on above: Performed By: #### L [id number] #### Insurance Sales Specialist: GYPSY DAY ([phone]) [facility] ([facility]) [address] [place] [address] ALP [Catalytic activity/Vol] 54 U/L Normal 40-150 [facility] Comment on above: Performed By: #### L [id number] #### Insurance Sales Specialist: GYPSY DAY ([phone]) [facility] ([facility]) [address] [place] [address] ALT [Catalytic activity/Vol] 11 U/L Normal <30 [facility] Comment on above: Performed By: #### L [id number] #### Insurance Sales Specialist: GYPSY DAY ([phone]) [facility] ([facility]) [address] [place] [address] Anion gap [Moles/Vol] 5 mmol/L Normal 3-13 [facility] Comment on above: Performed By: #### L [id number] #### Insurance Sales Specialist: GYPSY DAY ([phone]) [facility] ([facility]) [address] [place] [address] [place] AST [Catalytic activity/Vol] 16 U/L Normal <34 [facility] Comment on above: Performed By: #### L [id number] #### Insurance Sales Specialist: GYPSY DAY ([phone]) [facility] ([facility] [address] [place] [address] [place] Bilirubin [Mass/Vol] 0.2 mg/dL Normal <1.2 [facility] Comment on above: Performed By: #### L [id number] #### Insurance Sales Specialist: GYPSY DAY ([phone]) [facility]) [address] [place] [address] Calcium [Mass/Vol] 8.2 mg/dL Low 8.4-10.2 [facility] Comment on above: Performed By: #### L [id number] #### Insurance Sales Specialist: GYPSY DAY ([phone]) [facility] ([facility]) [address] [place] [address] Chloride [Moles/Vol] 104 mmol/L Normal 98-107 [facility] Comment on above: Performed By: #### L [id number] #### Insurance Sales Specialist: GYPSY DAY ([phone]) [facility] ([facility]) [address] [place] [address] CO2 [Moles/Vol] 24 mmol/L Normal 22-29 [facility] Comment on above: Performed By: #### L [id number] #### Insurance Sales Specialist: GYPSY DAY ([phone]) [facility] ([facility]) [address] [place] [address] Creatinine [Mass/Vol] 0.56 mg/dL Low 0.57-1.11 [facility] Comment on above: Performed By: #### L [id number] #### Insurance Sales Specialist: GYPSY DAY ([phone]) [facility] ([facility]) [address] [place] [address] GLOMERULAR FILTRATION RATE ML/MIN/1.73 SQ M.PREDICTED >90.0 Normal >60.0 [facility] Comment on above: Result Comment: Calc ulation based on the Chronic Kidney Disease Epidemiology Collaboration (CKD-EPI) equation refit without adjustment for race Performed By: #### L [id number] #### Insurance Sales Specialist: GYPSY DAY ([phone]) [facility] ([facility]) [address] [place] [address] Glucose [Mass/Vol] 109 mg/dL High 74-100 [facility] Comment on above: Performed By: #### L [id number] #### Insurance Sales Specialist: GYPSY DAY ([phone]) [facility] ([facility]) [address] [place] [address] Potassium [Moles/Vol] 3.6 mmol/L Normal 3.5-5.1 [facility] Comment on above: Result Comment: [facility] potassium values may be up to 0.5 mmol/L lower than serum values. Performed By: #### L [id number] #### Insurance Sales Specialist: GYPSY DAY ([phone]) [facility] ([facility]) [address] [place] [address] Protein [Mass/Vol] 5.4 g/dL Low 6.4-8.3 [facility] Comment on above: Performed By: #### L [id number] #### Insurance Sales Specialist: GYPSY DAY ([phone]) [facility] ([facility]) [address] [place] [address] Sodium [Moles/Vol] 133 mmol/L Low 136-145 [facility] Comment on above: Performed By: #### L [id number] #### Insurance Sales Specialist: GYPSY DAY ([phone]) [facility] ([facility]) [address] [place] [address] Urea nitrogen [Mass/Vol] 9 mg/dL Normal 8-21 [facility] Comment on above: Performed By: #### L [id number] #### Insurance Sales Specialist: GYPSY DAY ([phone]) [facility] ([facility]) [address] [place] [address] Comprehensive metabolic 1998 panelon 10-12-2024 Albumin [Mass/Vol] 3.2 g/dL Low 3.5 - 5.0 g/dL [facility] ALP [Catalytic activity/Vol] 54 U/L 40 - 150 U/L [facility] ALT [Catalytic activity/Vol] 11 U/L NINF - 30 U/L [facility] Anion gap [Moles/Vol] 5 mmol/L 3 - 13 mmol/L [facility] AST [Catalytic activity/Vol] 16 U/L NINF - 34 U/L [facility] Bilirubin [Mass/Vol] 0.2 mg/dL NINF - 1.2 mg/dL [facility] Calcium [Mass/Vol] 8.2 mg/dL Low 8.4 - 10. 2 mg/dL [facility] Chloride [Moles/Vol] 104 mmol/L 98 - 10 7 mmol/L [facility] CO2 [Moles/Vol] 24 mmol/L 22 - 29 mmol/L [facility] Creatinine [Mass/Vol] 0.56 mg/dL Low 0.57 - 1.11 mg/dL [facility] GFR/1.73 sq M.predicted (S/P/Bld) [Vol rate/Area] - PINF [facility] Comment on above: Calculation based on the Chronic Kidney Disease Epidemiology Collaboration (CKD-EPI) equation refit without adjustment for race Glucose [Mass/Vol] 109 mg/dL High 74 - 100 mg/dL [facility] Interpretation and review of laboratory results Abnormal [facility] Potassium [Moles/Vol] 3.6 mmol/L 3.5 - 5.1 mmol/L [facility] Comment on above: Plasma potassium arsen ues may be up to 0.5 mmol/L lower than serum values. Protein [Mass/Vol] 5.4 g/dL Low 6.4 - 8.3 g/dL [facility] Sodium [Moles/Vol] 133 mmol/L Low 136 - 145 mmol/L [facility] Urea nitrogen [Mass/Vol] 9 mg/dL 8 - 21 mg/dL [facility] Laboratory - Coagulationon 0 10-12-2024 aPTT Coag (PPP) [Time] 26.3 s 20.0 - 30.5 s [facility] INR Coag (PPP) [Relative time] 0.9 {INR} 0.9 - 1.1 [facility] Comment on above: Recommended Anticoag ulant Therapy: [...] [Time] 10.1 s 9.0 - 12.0 s [facility] No Panel Informationon 10-12 Interpretation and review of laboratory results Normal [facility] PROTIME AND APTTon aPTT Coag (Bld) [Time] 26.3 s Normal 20.0-30.5 [facility] Comment on above: Performed By: #### L [id number] ####Insurance Sales Specialist: GYPSY DAY ([phone])[facility] ([facility])[address] [place] [address] INR Coag (PPP) [Relative time] 0.9 {INR} Normal 0.9-1.1 [facility] Comment on above: Result Comment: Dwight [...] prevent Myocardial Infarction Performed By: #### L [id number] ####Insurance Sales Specialist: GYPSY DAY ([phone])[facility] ([facility])[address] [place] [address] PT Coag (PPP) [Time] 10.1 s Normal 9.0-12.0 [facility] Comment on above: Performed By: #### L [id number] ####Insurance Sales Specialist: GYPSY DAY ([phone])[address] Absolute neutrophil countOrd ered By: Fern Marroquin on 10-11-2024 Neutrophils (Bld) [#/Vol] 19.6 10*3/uL High 2.0-7.7 [facility] Anion gap in Serum or Plasma Ordered By: Fern Marroquin on 10-11-2024 Anion gap [Moles/Vol] 12 mmol/L 5-[facility] BUN/creatinine ratioOrdered By: Fern Marroquin on 10-11-2024 Urea nitrogen/Creatinine [Mass ratio] 17.7 mg/mg 10-20 [facility] Bacteria LM.HPF (Urine sed) [#/Area]Ordered By: Fern Marroquin on 10-11-2024 Urine Bacteria RARE /hpf None Seen [facility] Basic Metabolic Profile (BMP )on 10-11-2024 BUN/CRE 17.7 RATIO Normal - [facility] Comment on above: Performed By: #### L 100.0100, L700.6800, L500.2500 ####[facility] [id number] [place], [address] Calcium [Mass/Vol] 9.1 mg/dL Normal 7.6-11.0 [facility] Comment on above: Performed By: #### L 100.0100, L700.6800, L500.2500 ####[facility] [address] [place], [address] Chloride [Moles/Vol] 102 mmol/L Normal 98-108 [facility] Comment on above: Performed By: #### L 100.0100, L700.6800, L500.2500 ####[facility] [address] [place], [address] CO2 [Moles/Vol] 21.9 mmol/L Normal 21.0-32.0 [facility] Comment on above: Performed By: #### L 100.0100, L700.6800, L500.2500 ####[facility] [address] [place], [address] Creatinine [Mass/Vol] 0.58 mg/dL Low 0.70-1.20 [facility] Comment on above: Performed By: #### L 100.0100, L700.6800, L500.2500 ####[facility] [address] [place], [address] ECRCL 147.18 ml/min Normal 50-250 [facility] Comment on above: Performed By: #### L 100.0100, L700.6800, L500.2500 ####[facility] [address] [place], [address] GAP 12 Normal 5-15 [facility] Comment on above: Performed By: #### L 100.0100, L700.6800, L500.2500 ####[facility] [address] [place], [address] GFR/1.73 sq M.predicted among non-blacks MDRD (S/P/Bld) [Vol rate/Area] 127 mL/min/{1.73_m2} Normal >60 [facility] Comment on above: Result Comment: mL/m in/1.73m2 CKD-EPI Creatinine Equation (2020) Performed By: #### L 100.0100, L700.6800, L500.2500 ####[facility] [address] [place], [address] Glucose [Mass/Vol] 139 mg/dL High 70-99 [facility] Comment on above: Performed By: #### L 100.0100, L700.6800, L500.2500 ####[facility] [address] [place], [address] Potassium [Moles/Vol] 4.1 mmol/L Normal 3.3-5.1 [facility] Comment on above: Performed By: #### L 100.0100, L700.6800, L500.2500 ####[facility] [address] [place], [address] Sodium [Moles/Vol] 136 mmol/L Normal 133-145 [facility] Comment on above: Performed By: #### L 100.0100, L700.6800, L500.2500 ####[facility] [address] [place], [address] Urea nitrogen [Mass/Vol] 10 mg/dL Normal 4-19 [facility] Comment on above: Performed By: #### L 100.0100, L700.6800, L500.2500 ####[facility] [address] [place], [address] Basophil percentageOrdered B y: Fern Marroquin on 10-11-2024 Basophils/100 WBC (Bld) 0.1 % 0-1 [facility] Beta HCG ( test) Ql Ordered By: Fern Zazuetabraulio on 10-11-2024 Serum Test, Qualitative Negative [facility] Bilirubin Test strip Ql (U)O rdered By: Fern Marroquin on 10-11-2024 Bilirubin Ql (U) 1 mg/dL High Negative [facility] Comment on above: COLOR OF URINE MAY A FFECT DIPSTICK RESULTS. CBC W/Diff, Automatedon 10-01 Absolute Lymph 1.84 X10 3/uL Normal 0.83-4.51 [facility] Comment on above: Performed By: #### L 100.0100, L700.6800, L500.2500 ####[facility] [address] [place], [address] Absolute Neut 19.6 X10 3/uL High 2.0-7.7 [facility] Comment on above: Performed By: #### L 100.0100, L700.6800, L500.2500 ####[facility] [address] [place], [address] Basophils/100 WBC (Bld) 0.1 % Normal 0-1 [facility] Comment on above: Performed By: #### L 100.0100, L700.6800, L500.2500 ####[facility] [address] [place], [address] Eosinophils/100 WBC (Bld) 0.0 % Normal 0-5 [facility] Comment on above: Performed By: #### L 100.0100, L700.6800, L500.2500 ####[facility] [address] [place], [address] Erythrocyte distribution width (RBC) [Ratio] 12.9 % Normal 11.6-14.6 [facility] Comment on above: Performed By: #### L 100.0100, L700.6800, L500.2500 ####[facility] [address] [place], [address] Hematocrit (Bld) [Volume fraction] 34.0 % Low 37-47 [facility] Comment on above: Performed By: #### L 100.0100, L700.6800, L500.2500 ####[facility] [address] [place], [address] Hemoglobin (Bld) [Mass/Vol] 11.6 g/dL Low 12.0-15.0 [facility] Comment on above: Performed By: #### L 100.0100, L700.6800, L500.2500 ####[facility] [address] [place], [address] IG% 0.600 Normal 0.0-0.9 [facility] Comment on above: Result Comment: IG% - Immature Granulocytes (promyelocytes, myelocytes and metamyelocytes) > 1% indicates that a LEFT SHIFT is Present. Performed By: #### L 100.0100, L700.6800, L500.2500 ####[facility] [address] [place], [address] Lymphocytes/100 WBC (Bld) 8.2 % Low 19-41 [facility] Comment on above: Performed By: #### L 100.0100, L700.6800, L500.2500 ####[facility] [address] [place], [address] MCH (RBC) [Entitic mass] 30.1 pg Normal 27.0-32.0 [facility] Comment on above: Performed By: #### L 100.0100, L700.6800, L500.2500 ####[facility] [address] [place], [address] MCHC (RBC) [Mass/Vol] 34.1 g/dL Normal 32-36 [facility] Comment on above: Performed By: #### L 100.0100, L700.6800, L500.2500 ####[facility] [address] [place], [address] MCV (RBC) [Entitic vol] 88.3 fL Normal 81-99 [facility] Comment on above: Performed By: #### L 100.0100, L700.6800, L500.2500 ####[facility] [address] [place], [address] Monocytes/100 WBC (Bld) 4.0 % Normal 0-10 [facility] Comment on above: Performed By: #### L 100.0100, L700.6800, L500.2500 ####[facility] [address] [place], [address] Neutrophils/100 WBC (Bld) 87.1 % High 47-70 [facility] Comment on above: Performed By: #### L 100.0100, L700.6800, L500.2500 ####[facility] [address] [place], [address] Nucleated RBC (Bld) [#/Vol] 0 10*3/uL Normal 0-5 [facility] Comment on above: Performed By: #### L 100.0100, L700.6800, L500.2500 ####[facility] [address] [place], [address] Platelet mean volume (Bld) [Entitic vol] 9.2 fL Normal 6.2-12.0 [facility] Comment on above: Performed By: #### L 100.0100, L700.6800, L500.2500 ####[facility] [address] [place], [address] Platelets (Bld) [#/Vol] 321 10*3/uL Normal 150-450 [facility] Comment on above: Performed By: #### L 100.0100, L700.6800, L500.2500 ####[facility] [address] [place], [address] RBC (Bld) [#/Vol] 3.85 10*6/uL Low 4.2-5.4 [facility] Comment on above: Performed By: #### L 100.0100, L700.6800, L500.2500 ####[facility] [address] [place], [address] RDW SD 41.7 fl Normal 35.1-43.9 [facility] Comment on above: Performed By: #### L 100.0100, L700.6800, L500.2500 ####[facility] [address] [place], [address] WBC (Bld) [#/Vol] 22.5 10*3/uL High 4.4-11.0 [facility] Comment on above: Performed By: #### L 100.0100, L700.6800, L500.2500 ####[facility] [address] [place], [address] CTA Chst, Abd, Pel W and/or WOon 10-11-2024 CTA Chst, Abd, Pel W and/or WO [facility] [address] [place] [address] CTA Chst, Abd, Pel W and/or WO MR#: [id number] Acct: [id number] Name: JOSE EDWARD Rep #: [id number] : 1995 F 29 From: Daisha Hutchins nd, MD PCP: CHERYL Samano Status: REG ER Study: CTA Chst, Abd, Pel W and/or WO Date of Exam: 0 10/11/24 Exam# [id number] Ordering Dr: Fern Marroquin DO PROCEDURE: CTA [...] compatible with ovarian hyperstimulation syndrome. Reading Location: [facility] CC: Dr. Fern Marroquin DO; CHERYL Samano Pony Rougher: Signed Normal [facility] Carbon dioxide, total [Moles /volume] in Central venous bloodOrdered By: Fern Marroquin on 10-11-2024 CO2 [Moles/Vol] 21.9 mmol/L 21.0-32.0 [facility] Chloride assayOrdered By: Delma Marroquin on 10-11-2024 Chloride [Moles/Vol] 102 mmol/L 98-108 [facility] Emergency Department Summary on 10-11-2024 Emergency Department Summary [facility] Medical Records Department [address] [place] [address] Emergency Department Summary 10/11/24 MR#: [id number] Acct: [id number] Name: JOSE EDWARD Rep #: [id number] : 1995 29 From: Fern Marroquin DO PCP: CHERYL Samano Status:REG ER Location: ED HPI History of Present Illness Chief Complaint: Shortness of Breath Detail of Chief Complaint: Shortness of breath and abdominal pain Informant: patient Narrative Narrative: Patient presents to the emergency department complaint shortness of breath and abdominal pain that started this morning. Patient states that she had driven to [facility] this morning to have egg retrieval at [...] No prior history of PE or [facility] Medical History Abnormal uterine bleeding Conceived by [...] Unknown Rx flash glucose scanning reader #1 02/28/24 Unknown Rx (FreeStyle Lexi 2 [place]) flash glucose sensor (FreeStyle #1 ea 02/28/24 Unknown Rx Lexi 2 Sensor kit) PNV no.151-iron 27 mg-folic 800 1 cap PO DAILY 10/11/24 Unknown Hi story mcg-omega3 260 mm-hxv-glc-fish capsule ( Multi-DHA (with vitamin K)) cabergoline [...] Diabetes Uncle Diabetes Grandmother Diabetes Surgical History Boyce teeth extracted History of hysteroscopy Status post laparoscopy S/P D C (status post dilation and curettage) Hx of lumpectomy History of tonsillectomy and adenoidectomy Social History adopted: No household members: spouse number of children: 0 current occupational status: employed current occupation: [employer] current occupational exposures/hazards: No pets and animals: Yes (Avoid litterbox) pets and animals: cat(s) and dog(s) history of recent travel: Yes ([facility]) out of state: Yes out of country: No sexually active: Yes Smoking Status: Former smoker Electronic Cigarette Use: with nicotine alcohol intake: never substance use type: does not use well-balanced diet: daily or most days caffeine: No eating out: 1-3 times/week during the past year weight has: increased > 10 lbs what type of physical activity do you participate in: none jessica/tenriism: Orthodoxy seatbelt use: always do you feel safe at home: Yes additional social history: - Rene- Chuck ROS ROS ED Review of Systems ROS Unobtainable: other Constitutional Constitutional ED: Reports lethargy; Denies chills, fever(s), sweats or weight loss Eyes Eyes: Denie (more content not included)... Normal [facility] Eosinophil percentageOrdered By: Fern Marroquin on 10-11-2024 Eosinophils/100 WBC (Bld) 0.0 % 0-5 [facility] Epithelial cells.squamous LM Ql (Urine sed)Ordered By: Fern Marroquin on 10-11-2024 Epithelial cells.squamous LM.HPF (Urine sed) [#/Area] 0 /[HPF] 5-10 [facility] Erythrocyte distribution wid th (RBC) [Ratio]Ordered By: Fern Marroquin on 10-11-2024 Erythrocyte distribution width (RBC) [Entitic vol] 41.7 fL 35.1-43.9 [facility] Erythrocyte distribution wid th ratioOrdered By: Fern Marroquin on 10-11-2024 Erythrocyte distribution width (RBC) [Ratio] 12.9 % 11.6-14.6 [facility] Estimation of creatinine rory aranceOrdered By: Fern Marroquin on 10-11-2024 Estimated Creatinine Clearance Calc 147.18 ml/min 50-250 [facility] GFR/1.73 sq M.predicted checo g non-blacks MDRD (S/P/Bld) [Vol rate/Area]Ordered By: Fern Marroquin on 10-11-2024 Estimated GFR (MDRD) Non-Af Amer 127 >60 [facility] Comment on above: mL/min/1.73m2 CKD-EP I Creatinine Equation (2020) Glucose Ql (U)Ordered By: Delma Marroquin on 10-11-2024 Urine Glucose (UA) Normal mg/dl Normal [facility] Hematocrit Auto (Bld) [Volum e fraction]Ordered By: Fern Marroquin on 10-11-2024 Hematocrit (Bld) [Volume fraction] 34.0 % Low 37-47 [facility] Hemoglobin measurementOrdere d By: Fern Marroquin on 10-11-2024 Hemoglobin (Bld) [Mass/Vol] 11.6 g/dL Low 12.0-15.0 [facility] Immature granulocytes/100 WB C Auto (Bld)Ordered By: Fern Marroquin on 10-11-2024 Immature granulocytes/100 WBC (Bld) 0.600 % 0.0-0.9 [facility] Comment on above: IG% - Immature Granu locytes (promyelocytes, myelocytes and metamyelocytes) > 1% indicates that a LEFT SHIFT is Present. Ketones Test strip Ql (U)Ord ered By: Fern Marroquin on 10-11-2024 Ketones Ql (U) Negative Negative [facility] Lymphocytes Auto (Unsp spec) [#/Vol]Ordered By: Fern Marroquin on 10-11-2024 Lymphocytes (Bld) [#/Vol] 1.84 10*3/uL 0.83-4.51 [facility] Lymphocytes/100 WBC Auto (Un sp spec)Ordered By: Fern Marroquin on 10-11-2024 Lymphocytes/100 WBC (Bld) 8.2 % Low 19-41 [facility] MCV (mean corpuscular volume ) determinationOrdered By: Fern Marroquin on 10-11-2024 MCV (RBC) [Entitic vol] 88.3 fL 81-99 [facility] Mean corpuscular hemoglobin (MCH) determinationOrdered By: Fern Marroquin on 10-11-2024 MCH (RBC) [Entitic mass] 30.1 pg 27.0-32.0 [facility] Mean corpuscular hemoglobin concentration (MCHC) determinationOrdered By: Fern Marroquin on 10-11-2024 MCHC (RBC) [Mass/Vol] 34.1 g/dL 32-36 [facility] Mean platelet volume determi nationOrdered By: Fern Marroquin on 10-11-2024 Platelet mean volume (Bld) [Entitic vol] 9.2 fL 6.2-12.0 [facility] Microscopic analysis of urin e for red blood cells (RBC)Ordered By: Fern Marroquin on 10-11-2024 Urine RBC 0 SEEN /hpf 0-5 [facility] Monocyte percentageOrdered B y: Fern Marroquin on 10-11-2024 Monocytes/100 WBC (Bld) 4.0 % 0-10 [facility] Mucus LM Ql (Urine sed)Order ed By: Fern Marroquin on 10-11-2024 Mucus Ql (Urine sed) 0 SEEN /hpf [facility] Neutrophil percentageOrdered By: Fern Marroquin on 10-11-2024 Neutrophils/100 WBC (Bld) 87.1 % High 47-70 [facility] Nitrite Test strip Ql (U)Ord ered By: Fern Marroquin on 10-11-2024 Nitrite Ql (U) Positive High Negative [facility] Nucleated red blood cell per centageOrdered By: Fern Marroquin on 10-11-2024 Nucleated RBC/100 WBC (Bld) [Ratio] 0 % 0-5 [facility] Platelet countOrdered By: Delma Marroquin on 10-11-2024 Platelets (Bld) [#/Vol] 321 10*3/uL 150-450 [facility] Potassium (Unsp spec) [Mass/ Vol]Ordered By: Fern Marroquin on 10-11-2024 Potassium [Moles/Vol] 4.1 mmol/L 3.3-5.1 [facility] ,Serum,hCG Quali.on 10-11-2024 HCG, SERUM QUAL Negative Normal [facility] Comment on above: Performed By: #### L 100.0100, L700.6800, L500.2500 ####[facility] [address] [place], [place], [address] Protein Test strip Ql (U)Ord ered By: Fern Marroquin on 10-11-2024 Protein Ql (U) 30 mg/dl High Negative [facility] RBC Auto (Bld) [#/Vol]Ordere d By: Fern Marroquin on 10-11-2024 RBC (Bld) [#/Vol] 3.85 10*6/uL Low 4.2-5.4 [facility] Serum creatinine measurement (mass/volume)Ordered By: Fern Marroquin on 10-11-2024 Creatinine [Mass/Vol] 0.58 mg/dL Low 0.70-1.20 [facility] Serum glucose measurement (m ass/volume)Ordered By: Fern Marroquin on 10-11-2024 Glucose [Mass/Vol] 139 mg/dL High 70-99 [facility] Serum or plasma calcium shannon urement (mass/volume)Ordered By: Fern Marroquin on 10-11-2024 Calcium [Mass/Vol] 9.1 mg/dL 7.6-11.0 [facility] Serum or plasma urea nitroge n measurement (mass/volume)Ordered By: Fern Marroquin on 10-11-2024 Urea nitrogen [Mass/Vol] 10 mg/dL 4-19 [facility] Sodium levelOrdered By: Juliann Marroquin on 10-11-2024 Sodium [Moles/Vol] 136 mmol/L 133-145 [facility] Urinalysis, Completeon 10-11 BACTERIA RARE Normal None Seen [facility] Comment on above: Order Comment: EDWARD CTOR TO SPECIFY Performed By: #### L 400.0001 ####[facility] [address] [place], [address] EPI,SQUAMOUS 0 SEEN Normal 5-10 [facility] Comment on above: Order Comment: EDWARD CTOR TO SPECIFY Performed By: #### L 400.0001 ####[facility] [address] [place], [address] Mucus Ql (Urine sed) 0 SEEN Normal [facility] Comment on above: Order Comment: EDWARD CTOR TO SPECIFY Performed By: #### L 400.0001 ####[facility] [address] [place], [address] RBC 0 SEEN Normal 0-5 [facility] Comment on above: Order Comment: EDWARD CTOR TO SPECIFY Performed By: #### L 400.0001 ####[facility] [address] [place], [address] WBC 0 SEEN Normal 0-5 [facility] Comment on above: Order Comment: EDWARD CTOR TO SPECIFY Performed By: #### L 400.0001 ####[facility] [address] [place], [address] Urine blood detectionOrdered By: Remus Lopez on 10-11-2024 Urine Occult Blood 150 /ul High Negative [facility] Urine clarityOrdered By: Rem us Ungur on 10-11-2024 Clarity (U) Clear Clear [facility] Urine color determinationOrd ered By: Remus Lopez on 10-11-2024 Color (U) Yellow Yellow [facility] Urine leukocyte esterase det ection by dipstickOrdered By: Remus Lopez on 10-11-2024 Leukocyte esterase Test strip Ql (U) Negative Negative [facility] Urine pHOrdered By: Fern Winters gur on 10-11-2024 pH (U) 7.0 [pH] 5.0 - 8.0 [facility] Urine specific gravity measu rementOrdered By: Fern Marroquin on 10-11-2024 Specific gravity (U) [Rel density] 1.010 1.002-1.030 [facility] Urobilinogen Ql (U)Ordered B y: Fern Marroquin on 10-11-2024 Urobilinogen (U) [Mass/Vol] 4 mg/dL High Normal [facility] White blood cell (WBC) count Ordered By: Fern Marroquin on 10-11-2024 WBC (Bld) [#/Vol] 22.5 10*3/uL High 4.4-11.0 [facility] White blood cell countOrdere d By: Fern Marroquin on 10-11-2024 Urine WBC 0 SEEN /hpf 0-5 [facility] E2on 10-07-2024 Estradiol Level 1333.35 pg/mL Normal [facility] Comment on above: Result Comment: No te - New Reference Range in effect 20 Adult Female E2 Reference Ranges: Follicular phase 19.5 - 144.2 pg/mL Midcycle 63.9 - 356.7 pg/mL Luteal phase 55.8 - 214.2 pg/mL Post menopausal 0 - 33.2 pg/mL Performed By: #### P LATRICE, E2, LH #### [place] [address] LHon 10-07-2024 LH 3.9 mIU/mL [facility] Comment on above: Result Comment: No te - New Reference Range in effect 20 Adult Female LH Reference Ranges: Follicular phase 1.9 - 12.5 mIU/mL Midcycle phase 8.7 - 76.3 mIU/mL Luteal phase 0.5 - 16.9 mIU/mL Post menopausal 5.0 - 55.2 mIU/mL Performed By: #### P LATRICE, E2, LH #### [place] [address] PROGon 10-07-2024 Progesterone Level 0.9 ng/mL Normal [facility] Comment on [...] By: #### P LATRICE, E2, LH #### [facility] [address] [place], [place] [address] HIV - WCHon 08-20-2024 HIV Non-Reactive Normal Nonreactive [facility] Comment on above: Performed By: #### L 509.4005, L509.8000, L3890.6100, L3890.6300, L3400.0005, L3890.6005 ####[facility] [address] [place], [address] Antimullerian Hormone, Serum on 08-19-2024 AMH, SERUM 6.59 ng/mL Normal . [facility] Comment on above: Result Comment: For assays employing antibodies, the possibility exists for interference by heterophile antibodies in the samples.1 1.Anthony Khan. Interferences in Immunoassays - still a threat. Clin. Chem. 2000; 46: 4211-7701. This test was developed and its performance characteristics determined by [employer]. It has not been cleared or approved by the Food and Drug Administration. Reference Range: Females 26 - 30y: 1.03 - 11.10 Median 4.20 AMH concentrations of >= 1.06 ng/mL is correlated with a better response to ovarian stimulation, produced more retrievable oocytes and higher odds of live according to Isaaker et al. Fertility and Sterility. 2010: 94:7506-9256. The current AMH test method correlates with [...] an AMH-secreting ovarian tumor. Performed By: #### L 803.3000, L3100.5400, L100.0500, BTS, L506.1000, L509.3000, L500.4050 ####[facility] [address] [place], [address] PROLACTIN 4465on 08-19-2024 PROLACTIN 21.9 ng/mL Normal 4.8-33.4 [facility] Comment on above: Result Comment: Perf ormed at: [employer] [address] [place] [id number] [employer] Caregiver: Mik Jerez MD, Phone: [phone] Performed at: [address] [id number] [employer] Caregiver: Heri Louis PhD, Phone: [phone] Performed By: #### L 803.3000, L3100.5400, L100.0500, BTS, L506.1000, L509.3000, L500.4050 ####[facility] [address] [place], [place], [address] L3400.0005on 08-16-2024 V ZOSTER IgG Reactive Normal Non Reactive [facility] Comment on above: Result Comment: Pl ease note reference interval change A Reactive result is considered evidence of immunity to VZV. Reactive indicates that VZV IgG was detected consistent with previous infection and/or vaccination. A Non Reactive result indicates that VZV IgG was not detected suggesting that immunity has not been acquired. Performed at: [address] [id number] [employer] Caregiver: Heri Louis PhD, Phone: [phone] Performed By: #### L 509.4005, L509.8000, L3890.6100, L3890.6300, L3400.0005, L3890.6005 ####[facility] [address] [place], [address] 67-SN-Ynrszvk DOrdered By: Ziggy Villareal on 08-15-2024 Vitamin D 25-Hydroxy 28.5 ng/mL [facility] Comment on above: Vitamin D 25(OH) Sta tus Range Deficiency <20 ng/mL (50nmol/L) Insufficiency 20 - 30 ng/mL (50 - 75 nmol/L) Sufficiency 30 - 100 ng/mL (75 - 250 nmol/L) Toxicity >100 ng/mL (>250 nmol/L) Albumin to globulin ratioOrd ered By: Julianna Villareal on 08-15-2024 Albumin/Globulin [Mass ratio] 1.3 {ratio} 0.9-2.4 [facility] Bilirubin, totalOrdered By: Julianna Villareal on 08-15-2024 Bilirubin [Mass/Vol] 0.50 mg/dL 0.20-1.00 [facility] Comment on above: For patients on eltr ombopag therapy, use of Dimension [place] TBIL is not recommended. Blood urea nitrogen (BUN)/cr eatinine ratioOrdered By: Julianna Villareal on 08-15-2024 Urea nitrogen/Creatinine [Mass ratio] 16.3 mg/mg 10-20 [facility] CBC-Complete Blood Cnt No Di ffon 08-15-2024 Erythrocyte distribution width (RBC) [Ratio] 12.9 % Normal 11.6-14.6 [facility] Comment on above: Performed By: #### L 803.3000, L3100.5400, L100.0500, BTS, L506.1000, L509.3000, L500.4050 ####[facility] [address] [place], [address] Hematocrit (Bld) [Volume fraction] 44.4 % Normal 37-47 [facility] Comment on above: Performed By: #### L 803.3000, L3100.5400, L100.0500, BTS, L506.1000, L509.3000, L500.4050 ####[facility] [address] [place], [address] Hemoglobin (Bld) [Mass/Vol] 14.8 g/dL Normal 12.0-15.0 [facility] Comment on above: Performed By: #### L 803.3000, L3100.5400, L100.0500, BTS, L506.1000, L509.3000, L500.4050 ####[facility] [address] [place], [address] MCH (RBC) [Entitic mass] 29.4 pg Normal 27.0-32.0 [facility] Comment on above: Performed By: #### L 803.3000, L3100.5400, L100.0500, BTS, L506.1000, L509.3000, L500.4050 ####[facility] [address] [place], [address] MCHC (RBC) [Mass/Vol] 33.3 g/dL Normal 32-36 [facility] Comment on above: Performed By: #### L 803.3000, L3100.5400, L100.0500, BTS, L506.1000, L509.3000, L500.4050 ####[facility] [address] [place], [address] MCV (RBC) [Entitic vol] 88.3 fL Normal 81-99 [facility] Comment on above: Performed By: #### L 803.3000, L3100.5400, L100.0500, BTS, L506.1000, L509.3000, L500.4050 ####[facility] [address] [place], [address] Platelet mean volume (Bld) [Entitic vol] 9.7 fL Normal 6.2-12.0 [facility] Comment on above: Performed By: #### L 803.3000, L3100.5400, L100.0500, BTS, L506.1000, L509.3000, L500.4050 ####[facility] [address] [place], [address] Platelets (Bld) [#/Vol] 304 10*3/uL Normal 150-450 [facility] Comment on above: Performed By: #### L 803.3000, L3100.5400, L100.0500, BTS, L506.1000, L509.3000, L500.4050 ####[facility] [address] [place], [address] RBC (Bld) [#/Vol] 5.03 10*6/uL Normal 4.2-5.4 [facility] Comment on above: Performed By: #### L 803.3000, L3100.5400, L100.0500, BTS, L506.1000, L509.3000, L500.4050 ####[facility] [address] [place], [address] RDW SD 41.4 fl Normal 35.1-43.9 [facility] Comment on above: Performed By: #### L 803.3000, L3100.5400, L100.0500, BTS, L506.1000, L509.3000, L500.4050 ####[facility] [address] [place], [address] WBC (Bld) [#/Vol] 6.2 10*3/uL Normal 4.4-11.0 [facility] Comment on above: Performed By: #### L 803.3000, L3100.5400, L100.0500, BTS, L506.1000, L509.3000, L500.4050 ####[facility] [address] [place], [address] Carbon dioxide measurementOr dered By: Julianna Villareal on 08-15-2024 CO2 [Moles/Vol] 25.0 mmol/L 21.0-32.0 [facility] Chloride measurementOrdered By: Julianna Villareal on 08-15-2024 Chloride [Moles/Vol] 106 mmol/L 98-107 [facility] Comprehensive Metabolic Prof ilon 08-15-2024 Albumin [Mass/Vol] 4.2 g/dL Normal 3.2-5.0 [facility] Comment on above: Performed By: #### L 803.3000, L3100.5400, L100.0500, BTS, L506.1000, L509.3000, L500.4050 ####[facility] [address] [place], [address] Albumin/Globulin [Mass ratio] 1.3 {ratio} Normal 0.9-2.4 [facility] Comment on above: Performed By: #### L 803.3000, L3100.5400, L100.0500, BTS, L506.1000, L509.3000, L500.4050 ####[facility] [address] [place], [address] ALK P 96 U/L Normal 45-117 [facility] Comment on above: Performed By: #### L 803.3000, L3100.5400, L100.0500, BTS, L506.1000, L509.3000, L500.4050 ####[facility] [address] [place], [address] ALT [Catalytic activity/Vol] 22 U/L Normal 13-56 [facility] Comment on above: Performed By: #### L 803.3000, L3100.5400, L100.0500, BTS, L506.1000, L509.3000, L500.4050 ####[facility] [address] [place], [address] AST [Catalytic activity/Vol] 15 U/L Normal 15-37 [facility] Comment on above: Performed By: #### L 803.3000, L3100.5400, L100.0500, BTS, L506.1000, L509.3000, L500.4050 ####[facility] [address] [place], [address] Bilirubin [Mass/Vol] 0.50 mg/dL Normal 0.20-1.00 [facility] Comment on above: Result Comment: For patients on eltrombopag therapy, use of Dimension [place] TBIL is not recommended. Performed By: #### L 803.3000, L3100.5400, L100.0500, BTS, L506.1000, L509.3000, L500.4050 ####[facility] [address] [place], [address] BUN/CRE 16.3 RATIO Normal 10-20 [facility] Comment on above: Performed By: #### L 803.3000, L3100.5400, L100.0500, BTS, L506.1000, L509.3000, L500.4050 ####[facility] [address] [place], [address] CA,Total 9.5 mg/dL Normal 8.5-10.1 [facility] Comment on above: Performed By: #### L 803.3000, L3100.5400, L100.0500, BTS, L506.1000, L509.3000, L500.4050 ####[facility] [address] [place], [address] Chloride [Moles/Vol] 106 mmol/L Normal 98-107 [facility] Comment on above: Performed By: #### L 803.3000, L3100.5400, L100.0500, BTS, L506.1000, L509.3000, L500.4050 ####[facility] [address] [place], [address] CO2 [Moles/Vol] 25.0 mmol/L Normal 21.0-32.0 [facility] Comment on above: Performed By: #### L 803.3000, L3100.5400, L100.0500, BTS, L506.1000, L509.3000, L500.4050 ####[facility] [address] [place], [address] Creatinine [Mass/Vol] 0.55 mg/dL Normal 0.55-1.02 [facility] Comment on above: Result Comment: The validity of the calculated GFR GFRAA in patients over 70 years has not been determined. Clinical correlation is essential. Performed By: #### L 803.3000, L3100.5400, L100.0500, BTS, L506.1000, L509.3000, L500.4050 ####[facility] [address] [place], [address] EST GFR - AA 170 mL/min Normal >60 [facility] Comment on above: Result Comment: Afri can Tunisian GFR Calc Performed By: #### L 803.3000, L3100.5400, L100.0500, BTS, L506.1000, L509.3000, L500.4050 ####[facility] [address] [place], [place], [phone]) GAP 7 Normal 5-15 [facility] Comment on above: Performed By: #### L 803.3000, L3100.5400, L100.0500, BTS, L506.1000, L509.3000, L500.4050 ####[facility] [address] [place], [place], [phone] GFR/1.73 sq M.predicted among non-blacks MDRD (S/P/Bld) [Vol rate/Area] 140 mL/min/{1.73_m2} Normal >60 [facility] Comment on above: Result Comment: Non- GFR Calc Performed By: #### L 803.3000, L3100.5400, L100.0500, BTS, L506.1000, L509.3000, L500.4050 ####[facility] [address] [place], [place], [phone] Globulin (S) [Mass/Vol] 3.2 g/dL Normal 2.2-4.2 [facility] Comment on above: Performed By: #### L 803.3000, L3100.5400, L100.0500, BTS, L506.1000, L509.3000, L500.4050 ####[facility] [address] [place], [address] Glucose [Mass/Vol] 98 mg/dL Normal 74-106 [facility] Comment on above: Performed By: #### L 803.3000, L3100.5400, L100.0500, BTS, L506.1000, L509.3000, L500.4050 ####[facility] [address] [place], [address] Potassium [Moles/Vol] 3.8 mmol/L Normal 3.5-5.1 [facility] Comment on above: Performed By: #### L 803.3000, L3100.5400, L100.0500, BTS, L506.1000, L509.3000, L500.4050 ####[facility] [address] [place], [address] Sodium [Moles/Vol] 138 mmol/L Normal 136-145 [facility] Comment on above: Performed By: #### L 803.3000, L3100.5400, L100.0500, BTS, L506.1000, L509.3000, L500.4050 ####[facility] [address] [place], [address] T PROT 7.4 g/dL Normal 6.4-8.2 [facility] Comment on above: Performed By: #### L 803.3000, L3100.5400, L100.0500, BTS, L506.1000, L509.3000, L500.4050 ####[facility] [address] [place], [address] Urea nitrogen [Mass/Vol] 9 mg/dL Normal 7-18 [facility] Comment on above: Performed By: #### L 803.3000, L3100.5400, L100.0500, BTS, L506.1000, L509.3000, L500.4050 ####[facility] [address] [place], [address] Erythrocyte distribution wid th (RBC) [Ratio]Ordered By: Julianna Villareal on 08-15-2024 Erythrocyte distribution width (RBC) [Entitic vol] 41.4 fL 35.1-43.9 [facility] Erythrocyte distribution wid th ratioOrdered By: Julianna Villareal on 08-15-2024 Erythrocyte distribution width (RBC) [Ratio] 12.9 % 11.6-14.6 [facility] Estimated glomerular filtrat ion rate (GFR) AmericanOrdered By: Julianna Villareal on 08-15-2024 Estimated GFR (MDRD) Amer 170 mL/min >60 [facility] Comment on above: GFR Calc Flecainide [Mass/Vol]Ordered By: Julianna Villareal on 08-15-2024 Anti-Mullerian Hormone 6.59 ng/mL . [facility] Comment on above: For assays employing antibodies, the possibility exists forinterference by heterophile antibodies in the samples.11.Anthony Richard Interferences in Immunoassays - still a threat. Clin. Chem. 2000; 46: 7789-0870.This test was developed and its performance characteristicsdetermined by [employer]. It has not been cleared or approvedby the Food and Drug Administration.Reference Range:Females 26 - 30y: 1.03 - 11.10Median 4.20AMH concentrations of >= 1.06 ng/mL is correlated with abetter response to ovarian stimulation, produced moreretrievable oocytes and higher odds of live accordingto Stacey et al. Fertility and Sterility. 2010:94:1691-1860. The current AMH test method correlates withthe [...] GFR (MDRD) Non-Af Amer 140 mL/min >60 [facility] Comment on above: Non- GFR Calc Glucose measurementOrdered B y: Julianna Villareal on 08-15-2024 Glucose [Mass/Vol] 98 mg/dL 74-106 [facility] HIV 1+2 Ab+HIV1 p24 Ag IA Ql Ordered By: Julianna Villareal on 08-15-2024 HIV (1&2) Antibody Non-Reactive Nonreactive [facility] Hematocrit Auto (Bld) [Volum e fraction]Ordered By: Julianna Villareal on 08-15-2024 Hematocrit (Bld) [Volume fraction] 44.4 % 37-47 [facility] Hemoglobin measurementOrdere d By: Julianna Villareal on 08-15-2024 Hemoglobin (Bld) [Mass/Vol] 14.8 g/dL 12.0-15.0 [facility] Hepatitis B Surface Antigeno n 08-15-2024 HEP B Surf Ag Non-Reactive Normal Nonreactive [facility] Comment on above: Performed By: #### L 509.4005, L509.8000, L3890.6100, L3890.6300, L3400.0005, L3890.6005 ####[facility] [address] [place], [place], [id number] Hepatitis B surface antigen detectionOrdered By: Julianna Villareal on 08-15-2024 Hepatitis B Surface Antigen Non-Reactive Nonreactive [facility] Hepatitis C Antibodyon 08-15 Hepatitis C AB Non-Reactive Normal Banneractive [facility] Comment on above: Result Comment: Non Reactive: < 0.8 Equivocal: >/= 0.8 to < 1.0 Reactive: >/= 1.0 The CDC requires that a reactive/equivocal HCV antibody result be sent out for confirmation. HCV Quant by PCR testing. Performed By: #### L 509.4005, L509.8000, L3890.6100, L3890.6300, L3400.0005, L3890.6005 ####[facility] [address] [place], [place], [address] Hepatitis C virus antibody a ssayOrdered By: Julianna Villareal on 08-15-2024 Hepatitis C Antibody Non-Reactive Nonreactive [facility] Comment on above: Non Reactive: < 0.8 Equivocal: >/= 0.8 to < 1.0 Reactive: >/= 1.0The [facility] requires that a reactive/equivocal HCV antibody result be sent out for confirmation. HCV Quant by PCR testing. L509.8000on 08-15-2024 Syphilis Abs Non-Reactive Normal [facility] Comment on above: Performed By: #### L 509.4005, L509.8000, L3890.6100, L3890.6300, L3400.0005, L3890.6005 ####[facility] [address] [place], [place], [address] Laboratory - Chemistry and C hemistry - challengeOrdered By: Julianna Villareal on 08-15-2024 AST [Catalytic activity/Vol] 15 U/L 15-37 [facility] MCV (mean corpuscular volume ) determinationOrdered By: Julianna Villareal on 08-15-2024 MCV (RBC) [Entitic vol] 88.3 fL 81-99 [facility] Mean corpuscular hemoglobin (MCH) determinationOrdered By: Julianna Villareal on 08-15-2024 MCH (RBC) [Entitic mass] 29.4 pg 27.0-32.0 [facility] Mean corpuscular hemoglobin concentration (MCHC) determinationOrdered By: Julianna Villareal on 08-15-2024 MCHC (RBC) [Mass/Vol] 33.3 g/dL 32-36 [facility] Mean platelet volume determi nationOrdered By: Julianna Villareal on 08-15-2024 Platelet mean volume (Bld) [Entitic vol] 9.7 fL 6.2-12.0 [facility] Pelvis W/WO Contraston 08-15 Pelvis W/WO Contrast [facility] [address] [address] [place], [place] [address] Pelvis W/WO Contrast MR#: [id number] Acct: [id number] Name: JOSE EDWARD Rep #: [id number] : 1995 F 28 From: Rekha Sharpe i, DO PCP: CHERYL Samano Status: REG CLI Study: Pelvis W/WO Contrast Date of Exam: 08/15/24 Exam# [id number] Ordering Dr: Julianna Newman DO PROCEDURE: MRI [...] physiologic in this young patient. [facility] Dr. Julianna Newman DO; CHERYL Samano Pony Rougher: Signed Normal [facility] Platelet countOrdered By: Ayan Villareal on 08-15-2024 Platelets (Bld) [#/Vol] 304 10*3/uL 150-450 [facility] Potassium measurementOrdered By: Julianna Villareal on 08-15-2024 Potassium [Moles/Vol] 3.8 mmol/L 3.5-5.1 [facility] Prolactin [Mass/Vol]Ordered By: Julianna Villareal on 08-15-2024 Prolactin 21.9 ng/mL 4.8-33.4 [facility] Comment on above: Performed at: ES - [facility] [address] [place], [place] [id number] Director: Mik Jerez MD, Phone: [phone] at: CB - [facility] [address] [place], [place] [id number] Director: Heri Louis PhD, Phone: [phone] RBC Auto (Bld) [#/Vol]Ordere d By: Julianna Villareal on 08-15-2024 RBC (Bld) [#/Vol] 5.03 10*6/uL 4.2-5.4 [facility] Rubella IgGon 08-15-2024 Rubella IgG Reactive Normal Nonreactive [facility] Comment on above: Result Comment: Anti body Results Interpretation of Immune Status Non Reactive Presumed Non-Immune Equivocal Equivocal Reactive Presumed Immune Performed By: #### L 509.4005, L509.8000, L3890.6100, L3890.6300, L3400.0005, L3890.6005 ####[facility] [address] [place], [place], [id number] Rubella immune status IgGOrd ered By: Julianna Villareal on 08-15-2024 Rubella IgG Antibody Reactive Nonreactive [facility] Comment on above: Antibody Results Int erpretation of Immune Status Non Reactive Presumed Non-Immune Equivocal Equivocal Reactive Presumed Immune Serum anion gap measurementO rdered By: Julianna Villareal on 08-15-2024 Anion gap [Moles/Vol] 7 mmol/L 5-15 [facility] Serum globulin measurementOr dered By: Julianna Villareal on 08-15-2024 Globulin (S) [Mass/Vol] 3.2 g/dL 2.2-4.2 [facility] Serum or plasma alanine eric otransferase (ALT) measurementOrdered By: Julianna Villareal on 08-15-2024 ALT [Catalytic activity/Vol] 22 U/L 13-56 [facility] Serum or plasma albumin shannon urement (mass/volume)Ordered By: Julianna Villareal on 08-15-2024 Albumin [Mass/Vol] 4.2 g/dL 3.2-5.0 [facility] Serum or plasma alkaline meredith sphatase measurementOrdered By: Julianna Villareal on 08-15-2024 ALP [Catalytic activity/Vol] 96 U/L 45-117 [facility] Serum or plasma calcium shannon urement (mass/volume)Ordered By: Julianna Villareal on 08-15-2024 Calcium [Mass/Vol] 9.5 mg/dL 8.5-10.1 [facility] Serum or plasma creatinine m easurement (mass/volume)Ordered By: Julianna Villareal on 08-15-2024 Creatinine [Mass/Vol] 0.55 mg/dL 0.55-1.02 [facility] Comment on above: The validity of the calculated GFR & GFRAA in patients over 70 years has not been determined. Clinical correlation is essential. Serum or plasma urea nitroge n measurement (mass/volume)Ordered By: Julianna Villareal on 08-15-2024 Urea nitrogen [Mass/Vol] 9 mg/dL 7-18 [facility] Sodium levelOrdered By: Bernadine Villareal on 08-15-2024 Sodium [Moles/Vol] 138 mmol/L 136-145 [facility] Testosterone, Serum Totalon 08-15-2024 Testosterone [Mass/Vol] 32.20 ng/dL Normal [facility] Comment on above: Result Comment: CENT RAL 90% REFERENCE RANGES MALE AGE <50 197.44 - 669.58 ng/dL MALE AGE > or = 50 187.72 - 684.19 ng/dL FEMALE AGE <50 8.38 - 35.01 ng/dL FEMALE AGE > or = 50 <7.00 - 35.92 ng/dL Effective as of 01/26/21 Performed By: #### L 803.3000, L3100.5400, L100.0500, BTS, L506.1000, L509.3000, L500.4050 ####[facility] [address] [place], [address] Testosterone, totalOrdered B y: Julianna Villareal on 08-15-2024 Testosterone [Mass/Vol] 32.20 ng/dL [facility] Comment on above: CENTRAL 90% REFERENC E RANGES MALE AGE <50 197.44 - 669.58 ng/dL MALE AGE > or = 50 187.72 - 684.19 ng/dL FEMALE AGE <50 8.38 - 35.01 ng/dL FEMALE AGE > or = 50 <7.00 - 35.92 ng/dL Effective as of 01/26/21 Total proteinOrdered By: Juliane Villareal on 08-15-2024 Protein [Mass/Vol] 7.4 g/dL 6.4-8.2 [facility] Treponema sp Ab Ql (S)Ordere d By: Julianna Villareal on 08-15-2024 Syphilis Total Antibody Non-Reactive [facility] Type AND Screenon 08-15-2024 Ab SCREEN GEL Negative Normal [facility] Comment on above: Order Comment: PN Performed By: #### L 803.3000, L3100.5400, L100.0500, BTS, L506.1000, L509.3000, L500.4050 ####[facility] [address] [place], [place], [id number] Varicella-zoster virus IgG a ntibody assayOrdered By: Julianna Villareal on 08-15-2024 Varicella-Zoster IgG Antibody Reactive Non Reactive [facility] Comment on above: Please note refere nce interval changeA Reactive result is considered evidence of immunity toVZV. Reactive indicates that VZV IgG was detectedconsistent with previous infection and/or vaccination.A Non Reactive result indicates that VZV IgG was notdetected suggesting that immunity has not been acquired.Performed at: - [facility] [id number] Director: Heri Louis PhD, Phone: [phone] Vitamin D,25 Hydroxyon 08-15 Vitamin D 25-OH 28.5 ng/mL Normal [facility] Comment on above: Result Comment: Talisha min D 25(OH) Status Range Deficiency <20 ng/mL (50nmol/L) Insufficiency 20 - 30 ng/mL (50 - 75 nmol/L) Sufficiency 30 - 100 ng/mL (75 - 250 nmol/L) Toxicity >100 ng/mL (>250 nmol/L) Performed By: #### L 803.3000, L3100.5400, L100.0500, BTS, L506.1000, L509.3000, L500.4050 ####[facility] [address] [place], [address] White blood cell (WBC) count Ordered By: Julianna Villareal on 08-15-2024 WBC (Bld) [#/Vol] 6.2 10*3/uL 4.4-11.0 [facility] Genital Culture Comprehensiv lawanda 06-20-2024 VAC Reason for Exam: vag inal discharge Normal vaginal ese isolated. No yeast, Gardnerella, Neisseria or beta-hemolytic Streptococcus isolated. Normal [facility] Comment on above: Performed By: #### L 3300.1750, L801.2600 #### [facility] [address] [place], [address] Genital cultureOrdered By: Herberth Sampson on 06-19-2024 Genital Culture Neisseria or beta-hemolytic Streptococcus isolated. [facility] Gram Stainon 06-19-2024 GS Reason for Exam: vag inal discharge Gram Stain 4+ Gram positive rods 2+ Gram variable carlos 1+ White Blood Cells Clue Cells 4+ Gram negative rods Score = 6 Interpretation: 0-3 Normal, 4-6 Intermediate, 7-10 Positive BV Normal [facility] Comment on above: Performed By: #### L 3300.1750, L801.2600 #### [facility] [address] [place], [address] Gram stainOrdered By: Lilly Sampson on 06-19-2024 Microscopic observation Gram stain Nom (Unsp spec) [facility] Cement Mixer Office Visit Reporton 06-19-2024 Cement Mixer Office Visit Report [facility] [address], [address] [place] [address] OFFICE VISIT Date of Service: 06/19/24 MR#: [id number] Acct: [id number] Name: JOSE EDWARD Rep #: [id number] : 1995 Provider: AMY Cage Age/Sex: 28/F Location: [facility] Status: Signed Intake Vital Signs 03/06/24 13:40 06/19/24 09:41 Height 5 ft 2 in 5 ft 2 in Weight: 176 lb BMI 32.1 BP 119/79 Intake Visit Reasons: painful intercourse Chief Complaint: painful intercourse Director [place] [employer] Required: No Allergies Latex, Natural Rubber Allergy [...] capsule (PNV-DHA) blood sugar diagnostic (Blood #50 02/26/24 03/06/24 Rx Glucose Test strips) blood-glucose meter #1 ea 02/26/24 03/06/24 Rx lancets 30 gauge (Droplet Lancets) #200 ea 02/26/24 03/06/24 Rx flash glucose scanning reader #1 ea 02/28/24 03/06/24 Rx (FreeStyle Lexi 2 [place]) flash glucose sensor (FreeStyle #1 02/28/24 03/06/24 [...] polyp Abnormal uterine bleeding (AUB) Surgical History Boyce teeth extracted History of hysteroscopy Status post laparoscopy S/P D C (status post dilation and curettage) Hx of lumpectomy History of tonsillectomy and adenoidectomy Family History Mother Diabetes Uncle Diabetes Grandmother Diabetes Social History adopted: No household members: spouse number of children: 0 current occupational status: employed current occupation: [employer] current occupational exposures/hazards: No pets and animals: Yes (Avoid litterbox) pets and animals: cat(s) and dog(s) history of recent travel: Yes ([facility]) out of state: Yes out of country: No sexually active: Yes Smoking Status: Former smoker Electronic Cigarette Use: with nicotine alcohol intake: never substance use type: does not use well-balanced diet: daily or most days caffeine: No eating out: 1-3 times/week during the past year weight has: increased > 10 lbs what type of physical activity do you participate in: none jessica/tenriism: Orthodoxy seatbelt use: always do you feel safe at home: Yes additional social history: - Andrea BERMAN painful intercourse Details: JOSE EDWARD is a [...] Date Name GA/Weeks Outcome Route Bth Weight Gen Labor Lgth Anesthesia Del Locat Provider FOB 01/15/18 7 spontaneous 08/05/23 chemical 5 03/14/24 Josue 30 live - 3lbs 6oz Male spinal [facility] Delivery Date: 03/14/24 Last Updated by: Makenzie Montesinos RN See problem list for complications ROS Const ROS Unobtainable: All systems reviewed are unremarkable except as noted i (more content not included)... Normal [facility] Progress Noteon 05-14-2024 Billposting Supervisor Authentication Interface Message Text Visit This [...] Support and reassurance given. Discussed meeting with [facility] and pt has appt via telehealth [...] Precautions reviewed Pt to follow up with [facility] as scheduled The total time spent on patient care today 05/14/2024 was 20 minutes. -10 minutes direct patient care -10 minutes chart review and documentation Normal [facility] Progress Noteon 04-25-2024 Billpost[employer] Supervisor Authentication Interface Message Text Visit Subjective: [...] gtt completed WNL 3. Follow up with [facility] TE[facility] as scheduled for routine well woman care 4. Discussed precon consult with future with MFM if desired The total time spent on patient care today 04/25/2024 was 30 minutes. -15 minutes direct patient care -15 minutes chart review and documentation Normal [facility] GTT 2 HOURon 04-10-2024 Glucose [Mass/Vol] 101 mg/dL 49 - PINF mg/dL [facility] Comment on above: Criteria for Diagnos is [...] Interpretation and review of laboratory results Normal [facility] Glucose, 2 Hour GTT 101 mg/dL Normal >49-<140 [facility] Comment on above: Order Comment: Relea se to patient->Automatic Result Comment: Dale kong for Diagnosis of Diabetes (2HR Challenge): Fasting [...] G TT 2 HOUR #### JULIANNA Mack ([id number]) [facility] [address] GTT FASTINGon 04-10-2024 Glucose [Mass/Vol] 86 mg/dL Normal >49-<100 [facility] Comment on above: Order Comment: Relea se to patient->Automatic Result Comment: Gilberto fied By: [id number] Performed By: #### G TT FASTING #### JULIANNA RAYNA Mack ([id number]) [facility] ([facility]) [address] GTT FastingOrdered By: Backg round Lab on 04-10-2024 Glucose post fast [Mass/Vol] 86 mg/dL 49 - PINF mg/dL [facility] Comment on above: Verified By: [id number] Interpretation and review of laboratory results Normal [facility] Progress Noteon 03-28-2024 Billposting Supervisor Authentication Interface Message Text EXAM SUMMARY Jose presents for 2 week postop check. She delivered at 30w5d due to PPROM, labor and breech presentation. Delivery via LTCD with Dr. Gordillo. 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 care with [facility] in [facility]. Baby boy, doing well in the NICU [...] 1 Capsule (20 mg) by mouth daily [id number] PO daily No current facility-administered medications for [...] on patient care today: 35 minutes. Normal [facility] 42on 03-17-2024 42 Check in with mom, pumping for 30 5/7 week in NICU. Mom is pumping 15cc per session. Observed pump session and resized her flanges to 22.5mm. Mom was given Spectra pump from [facility] [employer] product consultant. Answer mom's questions. Discharge today. Normal [facility] Laboratory - Chemistry and C hemistry - challengeon 03-17-2024 Glucose [Mass/Vol] 82 mg/dL 70 - 100 mg/dL [facility] No Panel Informationon 03-17 Interpretation and review of laboratory results Normal [facility] Performed by: [facility], [address] [place] [address] CLIA ID: [id number] [facility] Nursing Noteon 03-17-2024 Nursing Note Mom discharged mom i n good condition with all belongings to a private residence, accompanied by . All discharge instructions reviewed with patient who verbalizes understanding and denies further questions.Mom walked out at 1840 Normal [facility] Progress Noteon 03-17-2024 Progress Note ---- [...] away so will stay in NICU and [facility] when a spot opens. Has a breat [...] 03/14 - Dexcom in place (share code [id number]) - Discontinued meds after delivery and have been trending post-prandials - Blood sugars normalizing - AM fasting pending Disposition: Anticipate (more content not included)... Normal [facility] Laboratory - Chemistry and C hemistry - challengeon 03-16-2024 Glucose [Mass/Vol] 124 mg/dL High 70 - 100 mg/dL [facility] [employer] Glucose [Mass/Vol] 77 mg/dL 70 - 100 mg/dL [facility] [employer] Glucose [Mass/Vol] 102 mg/dL High 70 - 100 mg/dL [facility] [employer] No Panel Informationon 03-16 Interpretation and review of laboratory results Abnormal [facility] [employer] Performed by: [facility], [address] [place], [place] [id number] CLIA ID: [id number] [facility] [employer] [facility] Interpretation and review of laboratory results Normal [facility] [employer] Performed by: [facility], [address] [place] [address] CLIA ID: [id number] [facility] [employer] [facility] Interpretation and review of laboratory results Abnormal [facility] [employer] Performed by: [facility], [address] [place] [address] CLIA ID: [id number] [facility] [employer] [facility] Progress Noteon 03-16-2024 Progress Note ---- [...] Name: Christiano River (more content not included)... Normal [facility] 42on 03-15-2024 42 Initial visit with cheyenne alonzo. This is mom's first baby, delivered at 30 6/7 weeks. Mom is a transfer from [facility] ( lives [facility] from [facility]). Nurse has mom set up with hospital [...] electric breast pump- [facility].All questions answered. Will continue to monitor, encourage and support patient. Normal [facility] CARECOORDon 03-15-2024 CAR[place] [address] consult for help with housing while [...] No further needs anticipated. OK FOR DC [facility] CARECOORD Date: 03/15/2024 Name: Jose Edward : 1995 [facility] Patient Information Primary Caregiver: Self Accompanied by/Relationship: S/O;Family Marital Status: Support System: SO/Family Restorationist/Cultural Factors: none Activities of Daily Living Communication: [...] place to sleep or slept in a detention (including now)? No Transportation Needs Has the [...] Equipment: Developmental Delay: N/A Children's Services: N/A [facility] HEMOGLOBINon 09-13-2024 Hemoglobin (Bld) [Mass/Vol] 12.6 g/dL Normal 11.7-16.0 [facility] Comment on above: Order Comment: POD # 1; if Hemoglobin less than 8 or greater than 3gm drop from admission, notify MD and repeat as ordered, Performed By: #### L [id number] ####Insurance Sales Specialist: GYPSY DAY ([phone])[facility] ([facility])[address] [place] [address] Hemoglobin (Bld) [Mass/Vol]O rdered By: Khurram Palacio on 03-15-2024 Interpretation and review of laboratory results Normal [facility] Laboratory - Chemistry and C hemistry - challengeon 03-15-2024 Glucose [Mass/Vol] 97 mg/dL 70 - 100 mg/dL [facility] Glucose [Mass/Vol] 87 mg/dL 70 - 100 mg/dL [facility] Glucose [Mass/Vol] 155 mg/dL High 70 - 100 mg/dL [facility] Glucose [Mass/Vol] 98 mg/dL 70 - 100 mg/dL [facility] Laboratory - Hematology and Cell countsOrdered By: Khurram Palacio on 03-15-2024 Hemoglobin (Bld) [Mass/Vol] 12.6 g/dL 11.7 - 16.0 g/dL [facility] No Panel Informationon 03-15 Interpretation and review of laboratory results Normal [facility] Performed by: [facility], [address] [place] [address] CLIA ID: [id number] [facility] Interpretation and review of laboratory results Normal [facility] Performed by: [facility], [address] [place] [address] CLIA ID: [id number] [facility] Interpretation and review of laboratory results Abnormal [facility] Performed by: [facility], [address] [place] [address] CLIA ID: [id number] [facility] Interpretation and review of laboratory results Normal [facility] Performed by: [facility], [address] [place] [address] CLIA ID: [id number] [facility] Nursing Noteon 03-15-2024 Nursing Note At 2320, [...] Humalog. Patient voiced understanding and agreeable. Normal [facility] Progress Noteon 03-15-2024 Progress Note Note-Summer [...] chart review and documentation , 9:41 AM [facility] BLOOD TYPE AND SCREEN GELon 03-14-2024 ABO GROUPING O [facility] Comment on above: Performed By: #### L [id number] ####Insurance Sales Specialist: GYPSY DAY ([phone])[facility] ([facility])[address] [place] [address] RH TYPE IN BLOOD Positive Normal [facility] Comment on above: Performed By: #### L [id number] ####Insurance Sales Specialist: GYPSY DAY ([phone])[facility] ([facility])[address] [place] [address] Blood type and Crossmatch pa phill (Bld)on 03-14-2024 ABO group Nom (Bld) O [facility] Blood group antibody screen GEL Ql Negative [facility] [employer] D Ag Ql (RBC) [facility] Laboratory - Chemistry and C hemistry - challengeon 03-14-2024 Glucose [Mass/Vol] 217 mg/dL High 70 - 100 mg/dL [facility] Glucose [Mass/Vol] 249 mg/dL High 70 - 100 mg/dL [facility] Glucose [Mass/Vol] 101 mg/dL High 70 - 100 mg/dL [facility] Glucose [Mass/Vol] 116 mg/dL High 70 - 100 mg/dL [facility] No Panel Informationon 03-14 Interpretation and review of laboratory results Abnormal [facility] Performed by: [facility], [address] [place] [address] CLIA ID: [id number] [facility] Interpretation and review of laboratory results Abnormal [facility] Performed by: [facility], [address] [place] [address] CLIA ID: [id number] [facility] 1. Allen live intrauterine at 30w 5d. [...] ultrasound findings do not guarantee normal outcomes. [facility] [employer] OBSTETRICS REPORT (Signed Final 03/14/2024 12:33 pm) PATIENT INFO: ID #: [id number] : [birth year] (28 yrs)(F) Name: JOSE EDWARD Visit Date: 03/14/2024 09:55 am PERFORMED BY: Attending: Christiano Au MD Performed By: Allison Langley RDMS Referred By: JULIANA NGUYEN [facility] Terrell.: RAND HALLMAN Location: [facility] Visit Type: Inpatient - Hospital SERVICE(S) PROVIDED: LAUREN w/out NST 36[address] [place] [id number] INDICATIONS: Oligohydramnios, third trimester, not O41.03X0 applicable or unspecified Antepartum hemorrhage, unspecified, third O46.93 trimester Oligohydramnios, third trimester, not O41.03X0 applicable or unspecified Antepartum hemorrhage, unspecified, third O46.93 trimester VITAL SIGNS: Weight (lb): 188 Height: 5'2" BMI: 34.38 EVALUATION: Num Of Fetuses: 1 Heart Rate(bpm): 150 Cardiac Activity: Regular rhythm Lie: Longitudinal Presentation: Breech Placenta: Posterior Amniotic Fluid LEONELA FV: Anhydramnios BIOPHYSICAL EVALUATION: Amniotic F.V: Anhydramios F. Tone: Observed F. Movement: Observed Score: 6 F. Breathing: Observed BIOMETRY: BPD: 72.7 mm [...] 03/14/2024 12:33 pm) PATIENT INFO: ID #: [id number] : [birth year] (28 yrs)(F) Name: JOSE EDWARD Visit Date: 03/14/2024 09:55 am PERFORMED BY: Attending: Christiano Au MD Performed By: Allison Langley RDSC Referred By: JULIANA Meléndez Phy.: RAND HALLMAN Location: [facility] Visit Type: Inpatient - Hospital SERVICE(S) PROVIDED: BPP w/out NST 40236 [place] [id number] INDICATIONS: Oligohydramnios, third trimester, not O41.03X0 applicable or unspecified Antepartum hemorrhage, unspecified, third O46.93 trimester Oligohydramnios, third trimester, not O41.03X0 applicable or unspecified Antepartum hemorrhage, unspecified, third O46.93 trimester VITAL SIGNS: Weight (lb): 188 Height: 5'2" BMI: 34.38 EVALUATION: Num Of Fetuses: 1 [...] AGE: Clinical GERALD: 30w 5d GERALD: 05/18/24 U/ Today: 29w 6d GERALD: 05/24/24 Best: 30w [...] ultrasound findings do not guarantee normal outcomes. [employer] Interpretation and review of laboratory results Abnormal [employer] Performed by: [facility], [address] [place] [address] CLIA ID: [id number] [employer] [facility] [employer] Radiology Study observation (narrative) [employer] Interpretation and review of laboratory results Abnormal [facility] [employer] Performed by: [facility], [address] [place] [address] CLIA ID: [id number] [facility] [employer] [facility] No Panel InformationOrdered By: Christiano Au on 03-14-2024 [employer] Work Phone: Nursing Noteon 03-14-2024 Nursing Note Pt reports spotting on her pad and upon assessing urine found a few red specks in her urine Normal [facility] Nursing Note Dr. Nguyen made aware that pt was just up to restroom and had a quarter size mucousy, bloody clot into toilet. No active bleeding noted. No change to plan of care at this time Normal [facility] Nursing Note Pt made aware that o rder for nothing to eat or drink has been ordered by Dr. Duarte. She states understanding. I made her aware that I will be starting IV fluids also. [facility] Op Noteon 03-14-2024 Op Note 3x1 cm [...] > 40 (more content not included)... Normal [facility] Progress Noteon 03-14-2024 Progress Note 1hr pp 249. Discusse d with Dr. Mancia. Will give 4u. Savanah Duarte, 03/14/2024 6:59 PM Came back from NICU and had eaten. Now 217. Will not eat further. Will give 4u. Advised on fasting BGT in the morning. Aware not to eat further for true fast in Am. Changed to CCD Savanah DuarteDO 03/15/2024 12:07 AM [facility] Progress Note Nutrition Note: Patient now s/p delivery earlier today. Regular diet ordered which is appropriate. RD sign off to [employer] to continue to monitor. Gypsy Kirby MS RD LD Clinical Dietitian [facility] Progress Note Safety Huddle: Called due to PPROM and laboring with breech presentation and having vaginal bleeding. OB anesthesia, primary RN, medical charge entry specialist, Dr. Gordillo all present. Will be for 2g Ancef, she is allergic to azithromycin. Received latency abx already. CHILD NURSE notified. Consent signed by Dr. Au, risks and benefits discussed with the patient including bleeding, infection, damage to surrounding structures. Will proceed with primary section unscheduled, non-emergent. All in agreement. ANA TOVAR DO 03/14/2024 10:43 AM ATTENDING NOTE: I reviewed the note from the Resident and agree with the documentation unless otherwise indicated. [facility] Progress Note Evaluated the patien t to assess position. The fetus is breech on BSUS. Ehsan Gonsalez MD 03/14/2024 9:18 AM [facility] Progress Note ---- -------- Attestation [...] g 1 g IntraVENous PRN Savanah Duarte, dextrose 5 % infusion 100 mL/hr IntraVENous PRN Keiry Boles, DO dextrose 50 % solution 12.5 g 12.5 g IntraVENous PRN Keiry Maneper, DO glucagon (human recombinant) injection 1 mg 1 mg IntraMUSCular PRN Keiry Maneper, DO glucose oral gel 15 g 15 g Oral PRN Keiry Maneper, DO influenza vac tiss-cult subunt (Flucelvax) injection [...] GM/500ML infusion 1,000 mg/hr IntraVENous Continuous Savanah Duarte, DO magnesium sulfate IVPB premix 4,000 mg 4,000 mg IntraVENous Once Savanah Duarte, DO 4,000 mg at 03/14/24 0545 ondansetron ODT (Z (more content not included)... Normal [facility] US BIOPHYSICAL PROFILE WO NON STRESS TESTINGon 03-14-2024 US BIOPHYSICAL PROFILE WO NON STRESS TESTING OBSTETRICS REPORT (Signed Final 03/14/2024 12:33 pm) PATIENT INFO: ID #: [id number] : [birth year] (28 yrs)(F) Name: JOSE EDWARD Visit Date: 03/14/2024 09:55 am PERFORMED BY: Attending: Christiano Au MD Performed By: Allison Langley RDMS Referred By: JULIANA NGUYEN [facility] Phy.: RAND HALLMAN Location: [facility] Visit Type: Inpatient - Hospital SERVICE(S) PROVIDED: [place]UREN w/out INGAT [address] [place] [address] INDICATIONS: Oligohydramnios, third trimester, not O41.03X0 applicable or unspecified Antepartum hemorrhage, unspecified, third O46.93 trimester Oligohydramnios, third trimester, not O41.03X0 applicable or unspecified Antepartum hemorrhage, unspecified, third O46.93 trimester VITAL SIGNS: Weight (lb): 188 Height: 5'2" BMI: 34.38 EVALUATION: Num Of Fetuses: 1 [...] anatomy appears normal as noted above. 5. BP 12/08 See IP note recommend delivery given vaginal bleeding and PPROM with contractions and BREECH presentation Ultrasound is not diagnostic of chromosomal aneuploidy and does not detect all subtle defects. Normal ultrasound findings do not guarantee normal outcomes. Normal [facility] US OB FOLLOW UP TRANSABDOMIN AL ADAM 03-14-2024 US OB FOLLOW UP TRANSABDOMINAL APPROACH OBSTETRICS REPORT (Signed Final 03/14/2024 12:33 pm) PATIENT INFO: ID #: [id number] : [birth year] (28 yrs)(F) Name: JOSE EDWARD Visit Date: 03/14/2024 09:55 am PERFORMED BY: Attending: Christiano Au MD Performed By: Allison Langley RDSC Referred By: JULIANA NGUYEN [facility] Phy.: RAND HALLMAN Location: [facility] Visit Type: Inpatient - Hospital SERVICE(S) PROVIDED: LAUREN w/out MEGAN [address] [place] [id number] INDICATIONS: Oligohydramnios, third trimester, not O41.03X0 applicable or unspecified Antepartum hemorrhage, unspecified, third O46.93 trimester Oligohydramnios, third trimester, not O41.03X0 applicable or unspecified Antepartum hemorrhage, unspecified, third O46.93 trimester VITAL SIGNS: Weight (lb): 188 Height: 5'2" BMI: 34.38 EVALUATION: Num Of Fetuses: 1 [...] findings do not guarantee normal outcomes. Normal [facility] CARECOORDon 03-13-2024 [facility] day 8 at 30 /4 weeks. PPROM. Voiced no needs or concerns. Normal [facility] CBC (HEMOGRAM)on 03-13-2024 Erythrocyte distribution width (RBC) [Ratio] 13.8 % Normal 11.5-15.0 [facility] Comment on above: Performed By: #### L [id number] ####Insurance Sales Specialist: GYPSY DAY ([phone])[address] Hematocrit (Bld) [Volume fraction] 38.4 % Normal 35.0-47.0 [facility] Comment on above: Performed By: #### L [id number] ####Insurance Sales Specialist: GYPSY DAY ([phone])[facility])[address] [place] [address] Hemoglobin (Bld) [Mass/Vol] 13.0 g/dL Normal 11.7-16.0 [facility] Comment on above: Performed By: #### L AB294 ####Insurance Sales Specialist: GYPSY DAY ([phone])[address] MCH (RBC) [Entitic mass] 29.8 pg Normal 26.0-34.0 [facility] Comment on above: Performed By: #### L AB294 ####Insurance Sales Specialist: GYPSY DAY ([phone])[facility])[address] [place] [address] MCHC 33.9 % Normal 30.5-36.0 [facility] Comment on above: Performed By: #### L AB294 ####Insurance Sales Specialist: GYPSY DAY ([phone])[facility])[address] [place] [address] MCV (RBC) [Entitic vol] 88.1 fL Normal 77.0-99.0 [facility] Comment on above: Performed By: #### L AB294 ####Insurance Sales Specialist: GYPSY DAY ([phone])[facility])[address] [place] [address] Platelet mean volume (Bld) [Entitic vol] 9.5 fL Normal 9.0-12.7 [facility] Comment on above: Performed By: #### L AB294 ####Insurance Sales Specialist: GYPSY DAY ([phone])[facility])[address] [place] [address] Platelets (Bld) [#/Vol] 282 10*3/uL Normal 140-440 [facility] Comment on above: Performed By: #### L AB294 ####Insurance Sales Specialist: GYPSY DAY ([phone])[facility])[address] [place] [address] RBC (Bld) [#/Vol] 4.36 10*6/uL Normal 3.80-5.20 [facility] Comment on above: Performed By: #### L [id number] ####Insurance Sales Specialist: GYPSY DAY ([phone])[facility])[address] [place] [address] WBC (Bld) [#/Vol] 8.7 10*3/uL Normal 3.6-10.7 [facility] Comment on above: Performed By: #### L [id number] ####Insurance Sales Specialist: GYPSY DAY ([phone])[facility] ([address] CBC panel Auto (Bld)on 03-13 Erythrocyte distribution width (RBC) [Ratio] 13.8 % 11.5 - 15.0 % [facility] Hematocrit (Bld) [Volume fraction] 38.4 % 35.0 - 47.0 % [facility] Hemoglobin (Bld) [Mass/Vol] 13.0 g/dL 11.7 - 16.0 g/dL [facility] Interpretation and review of laboratory results Normal [facility] MCH (RBC) [Entitic mass] 29.8 pg 26.0 - 34.0 pg [facility] MCHC (RBC) [Mass/Vol] 33.9 % 30.5 - 36.0 % [facility] MCV (RBC) [Entitic vol] 88.1 fL 77.0 - 99.0 fL [facility] Platelet mean volume (Bld) [Entitic vol] 9.5 fL 9.0 - 12.7 fL [facility] Platelets (Bld) [#/Vol] 282 10*3/uL 140 - 440 10*3/uL [facility] RBC (Bld) [#/Vol] 4.36 10*6/uL 3.80 - 5.2 0 10*6/uL [facility] WBC (Bld) [#/Vol] 8.7 10*3/uL 3.6 - 10.7 10*3/uL [facility] IDNon 03-13-2024 IDN The patient is Moderately Stable - Low risk of patient condition declining or worsening The patient's goals for the shift include remain The clinical goals for the shift include remain afebrile Normal [facility] IDN The patient is Moderately Stable - Low risk of patient condition declining or worsening The patient's goals for the shift include remain The clinical goals for the shift include remain afebrile Normal [facility] Laboratory - Chemistry and C hemistry - challengeon 03-13-2024 Glucose [Mass/Vol] 230 mg/dL High 70 - 100 mg/dL [facility] Glucose [Mass/Vol] 162 mg/dL High 70 - 100 mg/dL [facility] Glucose [Mass/Vol] 92 mg/dL 70 - 100 mg/dL [facility] [employer] Glucose [Mass/Vol] 91 mg/dL 70 - 100 mg/dL [facility] [employer] No Panel Informationon 03-13 Interpretation and review of laboratory results Abnormal [facility] Performed by: [facility], [address] [place] [address], Count includes the [facility] [address] CLIA ID: [id number] [facility] [employer] [facility] [employer] Interpretation and review of laboratory results Abnormal [facility] Performed by: [facility] [place] [facility], [address] [place] [address], [place] [address] CLIA ID: [id number] [facility] [employer] [facility] Interpretation and review of laboratory results Normal [facility] Performed by: [facility] [place] [facility], [address] [place] [address], Count includes the [facility] [address] CLIA ID: [id number] [facility] [employer] [facility] [employer] Interpretation and review of laboratory results Normal [facility] Performed by: [facility] [employer] [facility], [address] [place] [address], Count includes the [facility] [address] CLIA ID: [id number] [facility] [employer] [facility] [employer] Progress Noteon 03-13-2024 Progress Note Notified [...] labor. Will continue to monitor closely. Savanah Duarte, DO 03/13/2024 11:23 PM [facility] more cramping. 1cm dilated. Reportedly was 1cm [...] on pain. Keep in CE[facility]. Savanah Duarte, DO 03/14/2024 4:09 AM Normal [facility] Progress Note Temperature of 100.4 F [...] ?C (97.9 ?F) (Oral) Resp 16 Normal [facility] Progress Note ---- -------- Attestation signed [...] signs of infection. Primary patient of Edouard Paulson/Leahwalter in [facility]. Alerted her RN today to continue temp [...] 15 g Oral PRN Keiry Maneper, DO ondansetron ODT (Zofran-ODT) disintegrating tablet 4 [...] % infusion 5-250 mL/hr IntraVENous PRN Keiry Maneper, DO sodium chloride 0.9% (NS) flush 5-40 mL 5-40 mL IntraVENous q12h Keiry Schlieper, DO 10 mL at 03/12/24 2043 sodium chloride 0.9% (NS) flush 5-40 mL 5-40 mL IntraVENous PRN Keiry Schlieper, DO Assessment/Plan: Jose Edward is a 28 y.o. female 30w4d Anhydramnios PPROM - Patient presented with LOF for about 3 weeks; US at outside facility showed anhydramnios; ROM rule out was deferred in [facility] secondary to blood noted; transported to [facility] - in triage, SSE showed gross rupture of membranes with nitrazine positive, ferning negative and visually closed - Admitted for further observation with latency antibiotics and steroids - Plan for delivery at 34 weeks or if indicated sooner for labor, infection, or N (more content not included)... [facility] Consulton 03-12-2024 Consult Consult by [...] from NICU Potential need for transfer to [facility] if needs esclation of care, [...] Menjivar in order to be closer for kwasi Salas after she delivers/is discharged. Paola Cole MD Normal [facility] [employer] SHS Laboratory - Chemistry and C hemistry - challengeon 03-12-2024 Glucose [Mass/Vol] 163 mg/dL High 70 - 100 mg/dL [facility] [employer] Glucose [Mass/Vol] 128 mg/dL High 70 - 100 mg/dL [facility] [employer] Glucose [Mass/Vol] 134 mg/dL High 70 - 100 mg/dL [facility] [employer] Glucose [Mass/Vol] 104 mg/dL High 70 - 100 mg/dL [facility] [employer] No Panel Informationon 03-12 Interpretation and review of laboratory results Abnormal [facility] [employer] Performed by: [facility], [address] [place] [address] CLIA ID: [id number] [facility] [employer] [facility] [employer] Interpretation and review of laboratory results Abnormal [facility] [employer] Performed by: [facility] [facility], [address] [place] [address] CLIA ID: [id number] [facility] [employer] [facility] [employer] Interpretation and review of laboratory results Abnormal [facility] [employer] Performed by: [facility], [address] [place] [address] CLIA ID: [id number] [employer] [employer] [facility] [employer] Interpretation and review of laboratory results Abnormal [facility] [employer] Performed by: [facility], [address] [place] [address], Count includes the [facility] [address] CLIA ID: [id number] [facility] [employer] [facility] [employer] Progress Noteon 03-12-2024 Progress Note ---- -------- [...] of infection. Primary patient of Edouard Paulson/Prachi Falcon spent 30 minutes in the visit [...] 15 g Oral PRN Keiry Boles DO nitrofurantoin (macrocrystal-monohydrat e) (Macrobid) capsule 100 [...] anhydramnios; ROM rule out was deferred in [facility] secondary to blood noted; transported to [facility] - in triage, SSE showed gross rupture [...] diet - Dexcom in place, share code [id number] - Continue to monitor BGTs fasting and 1 codi (more content not included)... Normal [facility] 42on 03-11-2024 42 In to visit [...] options for home going pump; pt has [employer] insurance. Availability of LC for NICU and reviewed. [facility] handout "" Your NICU Baby" given and reviewed. Encouraged to watch videos from [employer] to support her goals. Resource numbers given for [facility] dept and [facility] [employer] dept. Encouraged to call with any questions / concerns. Pt receptive to my visit and education. Denies questions at this time. Normal [facility] CARECOORDon 03-11-2024 [facility] Hospital day 6 at 30 /2 weeks. Anhydramnios PPROM at 30/2 weeks referral. Voiced no needs or concerns. Normal [facility] Laboratory - Chemistry and C hemistry - challengeon 03-11-2024 Glucose [Mass/Vol] 104 mg/dL High 70 - 100 mg/dL [facility] Glucose [Mass/Vol] 91 mg/dL 70 - 100 mg/dL [facility] Glucose [Mass/Vol] 99 mg/dL 70 - 100 mg/dL [facility] [employer] Glucose [Mass/Vol] 88 mg/dL 70 - 100 mg/dL [employer] No Panel Informationon 03-11 Interpretation and review of laboratory results Abnormal [facility] Performed by: [facility], [address] [place] [address] CLIA ID: [id number] [facility] [employer] [facility] [employer] Interpretation and review of laboratory results Normal [facility] Health Performed by: [facility], [address] [place] [address] CLIA ID: [id number] [employer] [facility] [employer] Interpretation and review of laboratory results Normal [facility] Health Performed by: [facility], [address] [place] [address] CLIA ID: [id number] [facility] [employer] - Allen live intrauterine at 30w 2d in breech presentation - The amniotic fluid index is 1.3cm. There is no 2x2 pocket of fluid. - Biophysical profile, 12/08. (-2 for fluid) [facility] OBSTETRICS REPORT (Signed Final 03/11/2024 09:42 am) PATIENT INFO: ID #: [id number] : [birth year] (28 yrs)(F) Name: JOSE EDWARD Visit Date: 03/11/2024 09:07 am PERFORMED BY: Attending: Saumya Mancia Performed By: Jaquan Aguilar Referred By: JULIANA NGUYEN Location: [facility] IP Visit Type: Inpatient - Hospital SERVICE(S) PROVIDED: BPP w/out NST 77573 INDICATIONS: Oligohydramnios, third trimester, not O41.03X0 applicable or unspecified VITAL SIGNS: Weight (lb): 185 Height: 5'2" BMI: 33.83 EVALUATION: Num Of Fetuses: 1 [...] Electronically Signed Final Report 03/11/2024 09:42 am [facility] Saumya Mancia MD - 03/11/2024 OBSTETRICS REPORT (Signed Final 03/11/2024 09:42 am) PATIENT INFO: ID #: [id number] : [birth year] (28 yrs)(F) Name: JOSE EDWARD Visit Date: 03/11/2024 09:07 am PERFORMED BY: Attending: Saumya Mancia Performed By: Jaquan Aguilar Referred By: JULIANA NGUYEN Location: [facility] IP Visit Type: Inpatient - Hospital SERVICE(S) PROVIDED: w/out NST 88298 INDICATIONS: Oligohydramnios, third trimester, not O41.03X0 applicable or unspecified VITAL SIGNS: Weight (lb): 185 Height: 5'2" BMI: 33.83 EVALUATION: Num Of Fetuses: 1 [...] - Biophysical profile, 12/08. (-2 for fluid) [facility] Radiology Study observation (narrative) [facility] Interpretation and review of laboratory results Normal [facility] Performed by: [facility], [address] [place], [place] [address]ron [place] [address] CLIA ID: [id number] [facility] Progress Noteon 03-11-2024 Progress Note Rn notified me that patient having contractions, feeling some pressure. SSE showed closed cervix, no bleeding noted on exam, posterior cervix. Cat I FHT. Will continue to monitor. ANA TOVAR, DO 03/11/2024 12:28 PM Normal [facility] Progress Note ---- -------- Attestation signed by Saumya Mancia MD at 03/11/2024 2:51 PM MFM ATTENDING I have personally obtained a history and examined the patient with Dr. Nguyen. I agree with the assessment and plan as documented in the resident's note. The patient is a 28 y.o. 30w2d now HD#6, admitted for PPROM Pertinent Background: Transferred from [facility] for PPROM. Gross rupture confirmed on admit and anhydramnios at OSH ultrasound. Given BMZ, Mag for LIBRARY MEDIA ASSISTANT and latency antibiotics (amox only due to [...] 03/11/24: BPP 6/8 for fluid (NST reactive- /10), LEONELA 1.8cm, Breech Lab Results Component Value [...] BMZ for lung maturity and magnesium for LIBRARY MEDIA ASSISTANT. We discussed the indication for delivery with [...] 6:03 AM 03/06/2024 Hospital Day: 6 Jose Venkata, 28 y.o. 30w2d Patient has been seen [...] Hall MD prenata (more content not included)... Normal [facility] Progress Note Notified by RN of bleeding patient noticed while wiping and reports of abdominal tightening. FHT Cat I. No CTX on toco. FHT Cat I. SSE performed, cervix visually 1 cm, unchanged from prior exams. No bleeding noted, friability noted on os. Patient placed on monitor, IVF bolus given. Will continue to monitor closely. [facility] US BIOPHYSICAL PROFILE WO NON STRESS TESTINGon 03-11-2024 US BIOPHYSICAL PROFILE WO NON STRESS TESTING OBSTETRICS REPORT (Signed Final 03/11/2024 09:42 am) PATIENT INFO: ID #: [id number] : [birth year] (28 yrs)(F) Name: JOSE EDWARD Visit Date: 03/11/2024 09:07 am PERFORMED BY: Attending: Saumya Mancia Performed By: Jaquan Aguilar Referred By: JULIANA NGUYEN Location: [facility] IP Visit Type: Inpatient - Hospital SERVICE(S) PROVIDED: BPP w/out NST 86568 INDICATIONS: Oligohydramnios, third trimester, not O41.03X0 applicable or unspecified VITAL SIGNS: Weight (lb): 185 Height: 5'2" BMI: 33.83 EVALUATION: Num Of Fetuses: 1 [...] Biophysical profile, 12/08. (-2 for fluid) Normal [facility] BLOOD TYPE AND SCREEN GELon 03-10-2024 ABO GROUPING O Normal [facility] Comment on above: Performed By: #### L [id number] ####Insurance Sales Specialist: GYPSY DAY ([phone])[facility] BLOOD [facility] ([facility])[address] [place] [address] RH TYPE IN BLOOD Positive Normal [facility] Comment on above: Performed By: #### L [id number] ####Insurance Sales Specialist: GYPSY DAY ([phone])[facility] BLOOD [facility] ([facility])[address] [place] [address] Blood type and Crossmatch pa phill (Bld)on 03-10-2024 ABO group Nom (Bld) O [facility] Blood group antibody screen GEL Ql Negative [facility] [employer] D Ag Ql (RBC) [facility] Laboratory - Chemistry and C hemistry - challengeon 03-10-2024 Glucose [Mass/Vol] 135 mg/dL High 70 - 100 mg/dL [facility] [employer] Glucose [Mass/Vol] 115 mg/dL High 70 - 100 mg/dL [facility] [employer] Glucose [Mass/Vol] 115 mg/dL High 70 - 100 mg/dL [facility] Glucose [Mass/Vol] 89 mg/dL 70 - 100 mg/dL [facility] [employer] No Panel Informationon 03-10 Interpretation and review of laboratory results Abnormal [facility] [employer] Performed by: [facility], [address] [place] [address] CLIA ID: [id number] [facility] Interpretation and review of laboratory results Abnormal [facility] Performed by: [facility], [address] [place] [address] CLIA ID: [id number] [facility] Interpretation and review of laboratory results Abnormal [facility] Health Performed by: [facility], [address] [facility] [address] CLIA ID: [id number] [facility] Interpretation and review of laboratory results Normal [facility] Performed by: [facility], [address] [facility] [address] CLIA ID: [id number] [facility] Progress Noteon 03-10-2024 Progress Note ---- -------- Attestation signed by Saumya Mancia MD at 03/10/2024 2:46 PM MFM ATTENDING I have personally obtained a history and examined the patient with Dr. Nguyen. I agree with the assessment and plan as documented in the resident's note. The patient is a 28 y.o. 30w1d now HD#5, admitted for PPROM Pertinent Background: Transferred from [facility] for PPROM. Gross rupture confirmed on admit and anhydramnios at OSH ultrasound. Given BMZ, Mag for LIBRARY MEDIA ASSISTANT and latency antibiotics (amox only due to [...] BMZ for lung maturity and magnesium for LIBRARY MEDIA ASSISTANT. We discussed the indication for delivery with [...] Juliana Nguyen, DO 500 mg at 03/10/24 0704 calcium gluconate 10 % injection 1 g [...] facility showed (more content not included)... Normal [facility] [employer] [facility] Laboratory - Chemistry and C hemistry - challengeon 03-09-2024 Glucose [Mass/Vol] 177 mg/dL High 70 - 100 mg/dL [facility] [employer] Glucose [Mass/Vol] 172 mg/dL High 70 - 100 mg/dL [facility] [employer] Glucose [Mass/Vol] 94 mg/dL 70 - 100 mg/dL [facility] [employer] Glucose [Mass/Vol] 139 mg/dL High 70 - 100 mg/dL [facility] [employer] Glucose [Mass/Vol] 91 mg/dL 70 - 100 mg/dL [facility] [employer] No Panel Informationon 03-09 Interpretation and review of laboratory results Abnormal [facility] [employer] Performed by: [facility], [address] [place] [address] CLIA ID: [id number] [facility] [employer] [facility] Health Interpretation and review of laboratory results Abnormal [facility] Health Performed by: [facility], [address] [place], [place] [address] CLIA ID: [id number] [facility] [employer] [facility] Interpretation and review of laboratory results Normal [facility] Health Performed by: [facility], [address] [place] [address] CLIA ID: [id number] [facility] [employer] [facility] Interpretation and review of laboratory results Abnormal [facility] Health Performed by: [facility], [address] [place] [address] CLIA ID: [id number] [facility] [employer] [facility] Interpretation and review of laboratory results Normal [facility] Performed by: [facility], [address] [place] [address] CLIA ID: [id number] [facility] [employer] [facility] [employer] Progress Noteon 03-09-2024 Progress Note ---- -------- Attestation signed by Saumya Mancia MD at 03/09/2024 10:57 AM MFM ATTENDING I have personally obtained a history and examined the patient with Dr. Nguyen. I agree with the assessment and plan as documented in the resident's note. The patient is a 28 y.o. 30w0d now HD#4, admitted for PPROM Pertinent Background: Transferred from [facility] for PPROM. Gross rupture confirmed on admit and anhydramnios at OSH ultrasound. Given BMZ, Mag for LIBRARY MEDIA ASSISTANT and latency antibiotics (amox only due to [...] BMZ for lung maturity and magnesium for LIBRARY MEDIA ASSISTANT. We discussed the indication for delivery with [...] day Juliana Nguyen DO 500 mg at 03/08/242115 calcium gluconate 10 % injection 1 g 1 g IntraVENous PRN Dali Hall MD dextrose 5 % infusion 100 mL/hr IntraVENous PRN Keiry Schlieper, DO dextrose 50 % solution 12.5 g 12.5 g IntraVENous PRN Keiry Boles, DO famotidine (Pepcid) tablet 20 mg 20 mg Oral BID Ehsan Gonsalez MD 20 mg at 03/08/241732 Or famotidine (Pepcid) 20 mg in sodium [...] 1011 Assessme (more content not included)... Normal [facility] Bacteria identified Cx Nom ( U)Ordered By: Karyn Ramírez on 03-08-2024 Interpretation and review of laboratory results [facility] Day 3; 29/6 weeks today; No concerns at this time; Pt states she is interested in the possibility of staying at the [facility] after delivery due to living approx. 2 hours away; patient and provided background check paperwork; will be faxed to [facility] referral line; Will consult for patient as pt would like to see prior to delivery Normal [facility] Laboratory - Chemistry and C hemistry - challengeon 03-08-2024 Glucose [Mass/Vol] 143 mg/dL High 70 - 100 mg/dL [facility] Glucose [Mass/Vol] 171 mg/dL High 70 - 100 mg/dL [facility] Glucose [Mass/Vol] 125 mg/dL High 70 - 100 mg/dL [facility] Glucose [Mass/Vol] 133 mg/dL High 70 - 100 mg/dL [facility] Laboratory - Microbiology an d Antimicrobial susceptibilityOrdered By: Karyn Ramírez on 03-08-2024 Bacteria identified Cx Nom (U) No growth (<1,000 CFU/mL) [facility] [employer] No Panel Informationon 03-08 Interpretation and review of laboratory results Abnormal [facility] Performed by: [facility], [address] [place] [address] CLIA ID: [id number] [facility] Interpretation and review of laboratory results Abnormal [facility] Performed by: [facility], [address] [place] [address] CLIA ID: [id number] [facility] Interpretation and review of laboratory results Abnormal [facility] Performed by: [facility] [employer] [facility], [address] [place] [address] CLIA ID: [id number] [facility] [employer] [facility] Interpretation and review of laboratory results Abnormal [facility] Performed by: [facility], [address] [place] [address] CLIA ID: [id number] [facility] Progress Noteon 03-08-2024 Progress Note Nutrition rescreen completed. Patient referred to the Dietitian due to gestational diabetes. YUN Pineda Normal [facility] Progress Note ---- -------- Attestation signed by Saumya Macnia MD at 03/08/2024 5:04 PM (Updated) M ATTENDING I have personally obtained a history and examined the patient with Dr. Nguyen. I agree with the assessment and plan as documented in the resident's note. The patient is a 28 y.o. 29w6d now HD#3, admitted for PPROM Pertinent Background: Transferred overnight for PPROM. Gross rupture confirmed on admit and anhydramnios at OSH ultrasound. Given BMZ, Mag for LIBRARY MEDIA ASSISTANT and latency antibiotics (amox only due to [...] BMZ for lung maturity and magnesium for LIBRARY MEDIA ASSISTANT. We discussed the indication for delivery with [...] Resp: 16 16 16 14 Temp: 36.6 ?C (97.9 [...] mL/hr at 03/06/24 1730 125 mL/hr at 03/06/241729 nitrofurantoin (macrocrystal-monohydrat e) (Macrobid) capsule 100 mg [...] anhydramnios; ROM rule out was deferred in [facility] secondary to blood noted; transported to A (more content not included)... Normal [facility] S. agalactiae DNA EDUARDO+probe Ql (Unsp spec)on 03-08-2024 Group B Strep Screen Not detected Not Detected [facility] Interpretation and review of laboratory results Normal [facility] Methodology: real-ti me PCR [facility] Bacterial vaginosis and vagi nitis rRNA panel Probe (Vag fld)on 03-07-2024 Bacterial vaginosis Ql (Vag fld) [Interp] Not detected Not Detected [facility] C. glabrata DNA EDUARDO+probe Ql (Vag fld) Not detected Not Detected [facility] Keesha sp DNA EDUARDO+probe Ql (Vag fld) Not detected Not Detected [facility] Interpretation and review of laboratory results Normal [facility] T. vaginalis DNA EDUARDO+probe Ql (Vag fld) Not detected Not Detected [facility] Methodology: real-ti me PCR A negative result [...] sexual abuse or for other forensic purposes. [facility] CARECOORDon 03-07-2024 CARECOORD Date: 03/07/2024 Name: Jose Edward : 1995 [facility] Information [place] [facility] Patient Information Primary Caregiver: Self Accompanied by/Relationship: S/O;Family Marital Status: Support System: SO/Family Restorationist/Cultural Factors: Activities of Daily Living Communication: See [...] place to sleep or slept in a detention (including now)? No Transportation Needs Has the [...] N/A Developmental Delay: N/A Children's Services: N/A Normal [facility] CHLAMYDIA/GONORRHEAon 2023 CHLAMYDIA/GONORRHEA NEISSERIA GONORRHOEA E DNA [...] specimen should be collected if clinically indicated. [facility] Comment on above: Performed By: #### L [id number] ####Insurance Sales Specialist: GYPSY DAY ([phone])[address] GROUP B STREP SCREEN BY PCRo n 03-07-2024 GROUP B STREP SCREEN BY PCR GROUP B STREP SCREEN BY PCR Reference Not Detected Not Detected ORDER COMMENTS: Methodology: real-time PCR [facility] Comment on above: Performed By: #### L [id number] ####Insurance Sales Specialist: GYPSY DAY ([phone])[address] Laboratory - Chemistry and C hemistry - challengeon 03-07-2024 Glucose [Mass/Vol] 149 mg/dL High 70 - 100 mg/dL [facility] Glucose [Mass/Vol] 135 mg/dL High 70 - 100 mg/dL [facility] Glucose [Mass/Vol] 129 mg/dL High 70 - 100 mg/dL [facility] Glucose [Mass/Vol] 105 mg/dL High 70 - 100 mg/dL [facility] Glucose [Mass/Vol] 158 mg/dL High 70 - 100 mg/dL [facility] N. gonorrhoeae DNA EDUARDO+probe Ql (Cervical mucus)on 03-07-2024 C. trachomatis DNA EDUARDO+probe Ql (Unsp spec) Not detected Not Detected [facility] Interpretation and review of laboratory results Normal [facility] [employer] N gonorrhoeae, DNA Probe Not detected Not Detected [facility] [employer] Methodology: real-ti me PCR This test [...] specimen should be collected if clinically indicated. [facility] [employer] No Panel Informationon 03-07 Interpretation and review of laboratory results Abnormal [facility] [employer] Performed by: [facility], [address] [place] [address] CLIA ID: [id number] [facility] [employer] Interpretation and review of laboratory results Abnormal [employer] Performed by: [facility], [address] [place] [address] CLIA ID: [id number] [facility] [employer] 1. Allen live intrauterine at 29w [...] above. 5. BPP is 6/8 for fluid. [facility] OBSTETRICS REPORT (Signed Final 03/07/2024 11:11 am) PATIENT INFO: ID #: [id number] : [birth year] (28 yrs)(F) Name: JOSE EDWARD Visit Date: 03/07/2024 09:36 am PERFORMED BY: Attending: Saumya Mancia Performed By: Allison Langley RDMS Referred By: JULIANA NGUYEN Location: [facility] IP Visit Type: Inpatient - Hospital SERVICE(S) PROVIDED: Follow [place] [address] [facility] w/out [facility] [address] INDICATIONS: Oligohydramnios, third trimester, not O41.03X0 applicable or unspecified Oligohydramnios, third trimester, not O41.03X0 applicable or unspecified IVF Anyhdramnios VITAL SIGNS: Weight (lb): 188 Height: 5'2" BMI: 34.38 EVALUATION: Num Of Fetuses: 1 Heart Rate(bpm): 147 Cardiac Activity: Regular rhythm Lie: Breech Presentation: Breech, chata Placenta: Posterior Amniotic Fluid LEONELA FV: Oligohydramnios LEONELA Sum(cm) %Tile Largest Pocket(cm) 1.1 < 3 1.1 RUQ(cm) 1.1 Comment: There is no 2 x 2cm pocket. BIOPHYSICAL EVALUATION: Amniotic F.V: Pocket < 2 cm two F. Tone: Observed planes F. Movement: Observed Score: 6 F. Breathing: Observed BIOMETRY: BPD: 70.9 mm [...] Thoracic: Normal appear (more content not included)... [facility] Saumya Mancia MD - 03/07/2024 OBSTETRICS REPORT (Signed Final 03/07/2024 11:11 am) PATIENT INFO: ID #: [id number] : [birth year] (28 yrs)(F) Name: JOSE EDWARD Visit Date: 03/07/2024 09:36 am PERFORMED BY: Attending: Saumya Mancia Performed By: Allison Langley RDMS Referred By: JULIANA NGUYEN Location: [facility] IP Visit Type: Inpatient - Hospital SERVICE(S) [place] [address] BP w/out NST 34645 INDICATIONS: Oligohydramnios, third trimester, not O41.03X0 applicable or unspecified Oligohydramnios, third trimester, not O41.03X0 applicable or unspecified IVF Anyhdramnios VITAL SIGNS: Weight (lb): 188 Height: 5'2" BMI: 34.38 EVALUATION: Num Of Fetuses: 1 Heart Rate(bpm): 147 Cardiac Activity: Regular rhythm Lie: Breech Presentation: Breech, chata Placenta: Posterior Amniotic Fluid LEONELA FV: Oligohydramnios LEONELA Sum(cm) %Tile Largest Pocket(cm) 1.1 < 3 1.1 RUQ(cm) 1.1 Comment: There is no 2 x 2cm pocket. BIOPHYSICAL EVALUATION: Amniotic F.V: Pocket < 2 cm two F. Tone: Observed planes F. Movement: Observed Score: 68 F. Breathing: Observed BIOMETRY: BPD: 70.9 mm [...] 1.07 0.99 - 1.21 FL/BPD: 78.8 % - 87 FL/AC: 21.9 % 20 - [...] Normal appearance Interventr. Septum: Suboptimal views Cardiac [place]: Normal appearance Diaphragm: Normal appearance 3 Vessel View: Normal appearance 3 V Trachea View: Suboptimal views IVC: Normal Appearance Crossing: Suboptimal views Abdomen Ventral Wall: Normal appearance Cord Insertion: Normal appearance Situs: Normal appearance Stomach: Nor (more content not included)... [employer] Interpretation and review of laboratory results Abnormal [employer] Performed by: [facility], [address] [place] [address] CLIA ID: [id number] [employer] [facility] [employer] Radiology Study observation (narrative) [employer] [employer] Interpretation and review of laboratory results Abnormal [employer] Performed by: [facility], [address] [place] [address] CLIA ID: [id number] [facility] [employer] Interpretation and review of laboratory results Abnormal [facility] [employer] Performed by: [facility], [address] [place] [address] CLIA ID: [id number] [facility] [employer] No Panel InformationOrdered By: Saumya Mancia on 03-07-2024 [employer] Work Phone: Nursing Noteon 03-07-2024 Nursing Note RN called to bedside at 0435, pt reporting feeling increased leakage of fluid. Denies cramping, contractions, or pain, but does state feeling pressure which has become more constant. Dr Boles aware. Pt instructed to notify RN immediately if pressure intensifies or if cramping / contractions occur. Normal [facility] [employer] [facility] Progress Noteon 03-07-2024 Progress Note ---- -------- [...] at OSH ultrasound. Given BMZ, Mag for LIBRARY MEDIA ASSISTANT and latency antibiotics (amox only due to [...] BMZ for lung maturity and magnesium for LIBRARY MEDIA ASSISTANT. We discussed the indication for delivery with any signs of infection. We reviewed the recommendation for inpatient admission until delivery and plan for delivery at 34 weeks unless indicated sooner for labor, infection or NRFS. All questions answered. Continue latency antibiotics for 7 days total. BMZ #2 this evening S/p Mag for LIBRARY MEDIA ASSISTANT x >12 hrs total- now stopped NICU [...] 12 mg 12 mg [employer] Once Juliana Nguyen, DO calcium gluconate 10 % [...] infusion 1 (more content not included)... Normal [facility] US BIOPHYSICAL PROFILE WO NON STRESS TESTINGon 03-07-2024 US BIOPHYSICAL PROFILE WO NON STRESS TESTING OBSTETRICS REPORT (Signed Final 03/07/2024 11:11 am) PATIENT INFO: ID #: [id number] : [birth year] (28 yrs)(F) Name: JOSE EDWARD Visit Date: 03/07/2024 09:36 am PERFORMED BY: Attending: Saumya Mancia Performed By: Allison Langley RDMS Referred By: JULIANA NGUYEN Location: [facility] IP Visit Type: Inpatient - Hospital SERVICE(S) [place] [address] [facility] w/out NST 51155 INDICATIONS: Oligohydramnios, third trimester, not O41.03X0 applicable or unspecified Oligohydramnios, third trimester, not O41.03X0 applicable or unspecified IVF Anyhdramnios VITAL SIGNS: Weight (lb): 188 Height: 5'2" BMI: 34.38 EVALUATION: Num Of Fetuses: 1 [...] Normal appearance Interventr. Septum: Suboptimal views Cardiac [place]: Normal appearance Diaphragm: Normal appearance 3 Vessel View: Normal appearance 3 V Trachea View: Suboptimal views IVC: Normal Appearance Crossing: Suboptimal views Abdomen Ventral Wall: Normal appearance Cord Insertion: Normal appearance Situs: Normal appearance Stomach: Normal appearance Liver: Normal appearance Lt Kidney: Normal appearance Rt Kidney: Normal appearance Bladder: N (more content not included)... Normal [facility] US OB FOLLOW UP TRANSABDOMIN AL APPROACHon 03-07-2024 US OB FOLLOW UP TRANSABDOMINAL APPROACH OBSTETRICS REPORT (Signed Final 03/07/2024 11:11 am) PATIENT INFO: ID #: [id number] : [birth year] (28 yrs)(F) Name: JOSE EDWARD Visit Date: 03/07/2024 09:36 am PERFORMED BY: Attending: Saumya Mancia Performed By: Allison Langley RDMS Referred By: JULIANA NGUYEN [facility] IP Visit Type: Inpatient - Hospital SERVICE(S) [place]: [place] [address] BPP w/out NST 17191 INDICATIONS: Oligohydramnios, third trimester, not O41.03X0 applicable or unspecified Oligohydramnios, third trimester, not O41.03X0 applicable or unspecified IVF Anyhdramnios VITAL SIGNS: Weight (lb): 188 Height: 5'2" BMI: 34.38 EVALUATION: Num Of Fetuses: 1 [...] Normal appearance Interventr. Septum: Suboptimal views Cardiac [place]: Normal appearance Diaphragm: Normal appearance 3 Vessel View: Normal appearance 3 V Trachea View: Suboptimal views IVC: Normal Appearance Crossing: Suboptimal views Abdomen Ventral Wall: Normal appearance Cord Insertion: Normal appearance Situs: Normal appearance Stomach: Normal appearance Liver: Normal appearance Lt Kidney: Normal appearance Rt Kidney: Normal appearance Bladder: N (more content not included)... Normal [facility] VAGINITIS PANEL MVP PCRon VAGINITIS PANEL MVP PCR BACTERIAL VAGINOSIS [...] abuse or for other forensic purposes. Normal [facility] Comment on above: Performed By: #### L [id number] #### Insurance Sales Specialist: GYPSY DAY ([phone]) [facility] ([facility]) [address] [place] [address] BLOOD TYPE AND SCREEN GELon 03-06-2024 ABO GROUPING O Normal [facility] Comment on above: Order Comment: HOLD. Specimen is valid for 3 days - nurse to verify valid specimen Performed By: #### L [id number] ####Insurance Sales Specialist: GYPSY DAY ([phone])[facility] ([facility])[address] [place] [address] RH TYPE IN BLOOD Positive Normal [facility] Comment on above: Order Comment: HOLD. Specimen is valid for 3 days - nurse to verify valid specimen Performed By: #### L [id number] ####Insurance Sales Specialist: GYPSY DAY ([phone])[facility] ([facility])[address] [place] [address] Blood type and Crossmatch pa phill (Bld)on 03-06-2024 ABO group Nom (Bld) O [facility] Blood group antibody screen GEL Ql Negative [facility] D Ag Ql (RBC) Positive [facility] h [facility] CBC (HEMOGRAM)on 03-06-2024 Erythrocyte distribution width (RBC) [Ratio] 13.9 % Normal 11.5-15.0 [facility] Comment on above: Performed By: #### L [id number] ####Insurance Sales Specialist: GYPSY DAY ([phone])[facility])[address] [place] [address] Hematocrit (Bld) [Volume fraction] 41.8 % Normal 35.0-47.0 [facility] Comment on above: Performed By: #### L [id number] ####Insurance Sales Specialist: GYPSY DAY ([phone])[facility])[address] [place] [address] Hemoglobin (Bld) [Mass/Vol] 14.1 g/dL Normal 11.7-16.0 [facility] Comment on above: Performed By: #### L [id number] ####Insurance Sales Specialist: GYPSY DAY ([phone])[address] MCH (RBC) [Entitic mass] 30.4 pg Normal 26.0-34.0 [facility] Comment on above: Performed By: #### L [id number] ####Insurance Sales Specialist: GYPSY DAY ([phone])[facility])[address] [place] [address] MCHC 33.7 % Normal 30.5-36.0 [facility] Comment on above: Performed By: #### L [id number] ####Insurance Sales Specialist: GYPSY DAY ([phone])[facility])[address] [place] [address] MCV (RBC) [Entitic vol] 90.1 fL Normal 77.0-99.0 [facility] Comment on above: Performed By: #### L [id number] ####Insurance Sales Specialist: GYPSY DAY ([phone])[address] Platelet mean volume (Bld) [Entitic vol] 9.8 fL Normal 9.0-12.7 [facility] Comment on above: Performed By: #### L [id number] ####Insurance Sales Specialist: GYPSY DAY ([phone])[facility])[address] [place] [address] Platelets (Bld) [#/Vol] 311 10*3/uL Normal 140-440 [facility] Comment on above: Performed By: #### L [id number] ####Insurance Sales Specialist: GYPSY DAY ([phone])[facility])[address] [place] [address] RBC (Bld) [#/Vol] 4.64 10*6/uL Normal 3.80-5.20 [facility] Comment on above: Performed By: #### L [id number] ####Insurance Sales Specialist: GYPSY DAY ([phone])[facility])[address] [place] [address] WBC (Bld) [#/Vol] 15.2 10*3/uL High 3.6-10.7 [facility] Comment on above: Performed By: #### L [id number] ####Insurance Sales Specialist: GYPSY DAY ([phone])[facility])[address] [place] [address] CBC panel Auto (Bld)on 03-06 Erythrocyte distribution width (RBC) [Ratio] 13.9 % 11.5 - 15.0 % [facility] Hematocrit (Bld) [Volume fraction] 41.8 % 35.0 - 47.0 % [facility] Hemoglobin (Bld) [Mass/Vol] 14.1 g/dL 11.7 - 16.0 g/dL [facility] Interpretation and review of laboratory results Abnormal [facility] MCH (RBC) [Entitic mass] 30.4 pg 26.0 - 34.0 pg [facility] MCHC (RBC) [Mass/Vol] 33.7 % 30.5 - 36.0 % [facility] MCV (RBC) [Entitic vol] 90.1 fL 77.0 - 99.0 fL [facility] Platelet mean volume (Bld) [Entitic vol] 9.8 fL 9.0 - 12.7 fL [facility] Platelets (Bld) [#/Vol] 311 10*3/uL 140 - 440 10*3/uL [facility] RBC (Bld) [#/Vol] 4.64 10*6/uL 3.80 - 5.2 0 10*6/uL [facility] [employer] WBC (Bld) [#/Vol] 15.2 10*3/uL High 3.6 - 10.7 10*3/uL [facility] Laboratory - Chemistry and C hemistry - challengeon 03-06-2024 Glucose [Mass/Vol] 229 mg/dL High 70 - 100 mg/dL [facility] [employer] Glucose [Mass/Vol] 227 mg/dL High 70 - 100 mg/dL [facility] [employer] No Panel Informationon 03-06 Interpretation and review of laboratory results Abnormal [facility] [employer] Performed by: [facility] [employer] [facility], [address] [place] [address] CLIA ID: [id number] [facility] [employer] [facility] Interpretation and review of laboratory results Abnormal [facility] Performed by: [facility], [address] [place] [address] CLIA ID: [id number] [facility] [employer] [facility] Progress Noteon 03-06-2024 Progress Note ---- -------- Attestation signed by Saumya Mancia MD at 03/06/2024 6:43 PM [facility] Patient a direct admission from Transfer from [facility]. Please see my other H&P attestation -------- Department of Obstetrics and Gynecology Labor and Delivery Triage Note CHIEF COMPLAINT: Anyhydramnios HISTORY OF PRESENT ILLNESS: The patient is a 28 y.o. 29w4d. Patient presents with a chief complaint as above and is being admitted for observation and BMZ + Magnesium. Patient reports she has been leaking for 3 weeks now. She was evaluated in [facility] initially at that time with amnisure that [...] PROVIDER: Dr. Mancia DISPOSITION: Admit to L&D [facility] URINE CULTUREon 03-06-2024 Bacteria identified Cx Nom (U) URINE CULTURE Reference No growth (<1,000 CFU/mL) [ S = SUSCEPTIBLE R = RESISTANT I = INTERMEDIATE S-DD = Susceptible-dose dependent NS = Non-susceptible NO = No Interpretation ] [facility] Comment on above: Performed By: #### L [id number] ####Insurance Sales Specialist: GYPSY DAY ([phone])[facility] ([address] Absolute lymphocyte countOrd ered By: Julianna Villareal on 10-25-2023 Lymphocytes Auto (Unsp spec) [#/Vol] 2.65 10*3/uL 0.83-4.51 [facility] Automated lymphocyte count a s percentage of total leukocytesOrdered By: Julianna Villareal on 10-25-2023 Lymphocytes/100 WBC Auto (Unsp spec) 27.5 % 19-41 [facility] Basophil percentageOrdered B y: Julianna Villareal on 10-25-2023 Basophils/100 WBC (Bld) 0.4 % 0-1 [facility] Eosinophils/100 WBC (Bld) 1.6 % 0-5 [facility] Hemoglobin (Bld) [Mass/Vol] 13.4 g/dL 12.0-15.0 [facility] Monocytes/100 WBC (Bld) 7.3 % 0-10 [facility] Neutrophils (Bld) [#/Vol] 6.1 10*3/uL 2.0-7.7 [facility] Neutrophils/100 WBC (Bld) 62.8 % 47-70 [facility] WBC (Bld) [#/Vol] 9.6 10*3/uL 4.4-11.0 [facility] Culture, urineOrdered By: Lul Bauer on 10-25-2023 Bacteria identified Cx Nom (U) Culture exhibits no growth. [facility] Determination of erythrocyte mean corpuscular volume (MCV)Ordered By: Julianna Villareal on 10-25-2023 MCV (RBC) [Entitic vol] 88.4 fL 81-99 [facility] Erythrocyte distribution wid th ratioOrdered By: Julianna Villareal on 10-25-2023 Erythrocyte distribution width (RBC) [Ratio] 13.9 % 11.6-14.6 [facility] Erythrocyte distribution wid th standard deviationOrdered By: Julianna Villareal on 10-25-2023 Erythrocyte distribution width (RBC) [Entitic vol] 44.7 fL 35.1-43.9 [facility] HIV 1 and HIV-2 antibody ass ay with HIV-1 p24 antigen detectionOrdered By: Julianna Villareal on 10-25-2023 HIV 1+2 Ab+HIV1 p24 Ag IA Ql Non-Reactive Nonreactive [facility] Hematocrit Auto (Bld) [Volum e fraction]Ordered By: Julianna Villareal on 10-25-2023 Hematocrit (Bld) [Volume fraction] 40.5 % 37-47 [facility] Immature granulocytes/100 WB C Auto (Bld)Ordered By: Julianna Villareal on 10-25-2023 Immature granulocytes/100 WBC (Bld) 0.400 % 0.0-0.9 [facility] Comment on above: IG% - Immature Granu locytes (promyelocytes, myelocytes and metamyelocytes) > 1% indicates that a LEFT SHIFT is Present. Laboratory - Chemistry and C hemistry - challengeon 10-25-2023 Glucose Ql (U) Negative [facility] Laboratory - Hematology and Cell countsOrdered By: Julianna Villareal on 10-25-2023 MCH (RBC) [Entitic mass] 29.3 pg 27.0-32.0 [facility] MCHC (RBC) [Mass/Vol] 33.1 g/dL 32-36 [facility] Nucleated RBC/100 WBC (Bld) [Ratio] 0 % 0-5 [facility] Platelet mean volume (Bld) [Entitic vol] 8.7 fL 6.2-12.0 [facility] Platelets (Bld) [#/Vol] 286 10*3/uL 150-450 [facility] Laboratory - Urinalysison Protein Ql (U) Negative [facility] No Panel InformationOrdered By: Julianna Villareal on 10-25-2023 Hepatitis B Surface Antigen Non-Reactive Nonreactive [facility] Hepatitis C Antibody Non-Reactive Nonreactive [facility] Comment on above: Non Reactive: < 0.8 Equivocal: >/= 0.8 to < 1.0 Reactive: >/= 1.0The CDC requires that a reactive/equivocal HCV antibody result be sent out for confirmation. HCV Quant by PCR testing. Miscellaneous Test Comment SEE SCANNED REPORT [facility] Rubella IgG Antibody Reactive Nonreactive [facility] Comment on above: Antibody Results Int erpretation of Immune Status Non Reactive Presumed Non-Immune Equivocal Equivocal Reactive Presumed Immune RBC Auto (Bld) [#/Vol]Ordere d By: Julianna Villareal on 10-25-2023 RBC (Bld) [#/Vol] 4.58 10*6/uL 4.2-5.4 [facility] Serum Treponema species anti body detectionOrdered By: Julianna Villareal on 10-25-2023 Treponema sp Ab Ql (S) Non-Reactive [facility] Whole blood hemoglobin A1c/t otal hemoglobin ratio (mass fraction)Ordered By: Venessa Newby on 10-25-2023 HbA1c (Bld) [Mass fraction] 5.1 % 3.8-5.6 [facility] Comment on above: Normal < 5.7 % Predi abetic 5.7 - 6.4 % Diabetic >or= 6.5 % Please note range changes. Cervical or vagninal specime n microscopic examination by cytology stain (reported asOrdered By: Venessa Newby on 10-12-2023 Cytology report Cyto stain Doc (Cvx/Vag) Comment . [facility] Comment on above: The Pap smear is [...] rRNA EDUARDO+probe Ql (Unsp spec) Negative Negative [facility] Laboratory - CytologyOrdered By: Venessa Newby on 10-12-2023 Line Tester Cyto stain Nom (Cvx/Vag) [ID] Comment . [facility] Comment on above: Luther Dobson totechnologist (ASCP) Laboratory - Microbiology an d Antimicrobial susceptibilityOrdered By: Julianna Villareal on 10-12-2023 N. gonorrhoeae DNA EDUARDO+probe Ql (Unsp spec) Negative Negative [facility] Comment on above: Performed at: [address] [id number] Director: Machelle Ambrocio MD, Phone: [phone] Laboratory - Miscellaneous t estsOrdered By: Venessa Newby on 10-12-2023 Service comment (Unsp spec) [Interp] . . [facility] No Panel InformationOrdered By: Venessa Newby on 10-12-2023 Human Papillomavirus Screen Comment . [facility] Comment on above: The HPV DNA reflex c kathryn were not met with this specimenresult therefore, no HPV testing was performed.Performed at: [facility] Cyto [id number] [place], [place] [id number] Director: Washington Calvo MD, Phone: [phone] at: [place] - [facility] [address] [id number] Director: Machelle Ambrocio MD, Phone: [phone] Thin prep Papanicolaou smear with manual screeningOrdered By: Venessa Newby on 10-12-2023 Thin prep Papanicolaou smear with manual screening Comment . [facility] Comment on above: NEGATIVE FOR INTRAEP ITHELIAL LESION OR MALIGNANCY. This liquid based Th inPrep(R) pap test was screened withthe use of an image guided system. No Panel InformationOrdered By: Yola Schaffer on 09-29-2023 Estradiol (E2) Level 911.3 pg/mL [facility] Comment on above: NORMAL REFERENCE RAN GES [...] Schaffer on 09-29-2023 HCG ( test) Ql [address] mIU/mL <4 [facility] Comment on above: hCG levels with Gest ational AgeGestational Age hCG mIU/mL (IU/L)0.2 - 1 week 5 - 501-2 weeks 50 - 5002-3 weeks 100 - 36123-4 weeks 500 - 803605-3 weeks 1000 - 196962-7 weeks 70624 - 100,0006-8 weeks 31070 - 200,0002-3 months 98394 - 100,000 Serum or plasma progesterone measurement (mass/volume)Ordered By: Yola Schaffer on 09-29-2023 Progesterone [Mass/Vol] 51.51 ng/mL See Comment [facility] Comment on above: Progesterone Referen ce Table: UNITS Female: Follicular 0.15 - 1.40 ng/mL Luteal 3.34 - 25.56 ng/mL Mid-luteal 4.44 - 28.03 ng/mL Postmenopausal 0.0 - 0.73 ng/mL : 1st Trimester 11.22 - 90.00 ng/mL 2nd Trimester 25.55 - 89.40 ng/mL 3rd Trimester 48.40 -422.50 ng/mL No Panel InformationOrdered By: Yola Schaffer on 09-22-2023 Estradiol (E2) Level 839.2 pg/mL [facility] Comment on above: NORMAL REFERENCE RAN GES [...] HCG ( test) Ql 2686 mIU/mL <4 [facility] Comment on above: hCG levels with Gest ational AgeGestational Age hCG mIU/mL (IU/L)0.2 - 1 week 5 - 501-2 weeks 50 - 5002-3 weeks 100 - 40306-7 weeks 500 - 468779-1 weeks 1000 - 559534-4 weeks 84856 - 100,0006-8 weeks 71224 - 200,0002-3 months 75191 - 100,000 Serum or plasma progesterone measurement (mass/volume)Ordered By: Yola Schaffer on 09-22-2023 Progesterone [Mass/Vol] 61.23 ng/mL See Comment [facility] Comment on above: Progesterone Referen ce Table: [...] Auto (Unsp spec) [#/Vol] 2.66 10*3/uL 0.83-4.51 [facility] Automated lymphocyte count a s percentage of total leukocytesOrdered By: Karlos Miller on 09-19-2023 Lymphocytes/100 WBC Auto (Unsp spec) 16.6 % 19-41 [facility] Basophil percentageOrdered B y: Karlos Miller on 09-19-2023 Basophil percentage 0 SEEN /hpf 0-5 [facility] Basophils/100 WBC (Bld) 0.3 % 0-1 [facility] Chloride [Moles/Vol] 106 mmol/L 98-107 [facility] Eosinophils/100 WBC (Bld) 0.2 % 0-5 [facility] Glucose [Mass/Vol] 116 mg/dL 74-106 [facility] Comment on above: Fasting Glucose resu lt from 100 to 125 mg/dL suggests IMPAIRED HOMEOSTASIS per A.D.A. criteria. Hemoglobin (Bld) [Mass/Vol] 13.7 g/dL 12.0-15.0 [facility] Monocytes/100 WBC (Bld) 4.6 % 0-10 [facility] Neutrophils (Bld) [#/Vol] 12.4 10*3/uL 2.0-7.7 [facility] Neutrophils/100 WBC (Bld) 77.7 % 47-70 [facility] Potassium [Moles/Vol] 3.3 mmol/L 3.5-5.1 [facility] Sodium [Moles/Vol] 140 mmol/L 136-145 [facility] WBC (Bld) [#/Vol] 16.0 10*3/uL 4.4-11.0 [facility] Bilirubin Test strip Ql (U)O rdered By: Karlos Miller on 09-19-2023 Bilirubin Ql (U) Negative Negative [facility] Determination of erythrocyte mean corpuscular volume (MCV)Ordered By: Karlos Miller on 09-19-2023 MCV (RBC) [Entitic vol] 90.3 fL 81-99 [facility] Erythrocyte distribution wid th ratioOrdered By: Karlos Miller on 09-19-2023 Erythrocyte distribution width (RBC) [Ratio] 13.7 % 11.6-14.6 [facility] Erythrocyte distribution wid th standard deviationOrdered By: Karlos Miller on 09-19-2023 Erythrocyte distribution width (RBC) [Entitic vol] 45.1 fL 35.1-43.9 [facility] Hematocrit Auto (Bld) [Volum e fraction]Ordered By: Karlos Miller on 09-19-2023 Hematocrit (Bld) [Volume fraction] 42.8 % 37-47 [facility] Immature granulocytes/100 WB C Auto (Bld)Ordered By: Karlos Miller on 09-19-2023 Immature granulocytes/100 WBC (Bld) 0.600 % 0.0-0.9 [facility] Comment on above: IG% - Immature Granu locytes (promyelocytes, myelocytes and metamyelocytes) > 1% indicates that a LEFT SHIFT is Present. Ketones Test strip Ql (U)Ord ered By: Karlos Miller on 09-19-2023 Ketones Ql (U) Negative Negative [facility] Laboratory - Chemistry and C hemistry - challengeOrdered By: Karlos Miller on 09-19-2023 CO2 [Moles/Vol] 23.0 mmol/L 21.0-32.0 [facility] Urea nitrogen/Creatinine [Mass ratio] 12.3 mg/mg 10-20 [facility] Laboratory - Hematology and Cell countsOrdered By: Karlos Miller on 09-19-2023 MCH (RBC) [Entitic mass] 28.9 pg 27.0-32.0 [facility] MCHC (RBC) [Mass/Vol] 32.0 g/dL 32-36 [facility] Nucleated RBC/100 WBC (Bld) [Ratio] 0 % 0-5 [facility] Platelet mean volume (Bld) [Entitic vol] 8.7 fL 6.2-12.0 [facility] Platelets (Bld) [#/Vol] 312 10*3/uL 150-450 [facility] Mucus LM Ql (Urine sed)Order ed By: Kalros Miller on 09-19-2023 Mucus Ql (Urine sed) 0 SEEN /hpf [facility] Nitrite Test strip Ql (U)Ord ered By: Karlos Miller on 09-19-2023 Nitrite Ql (U) Negative Negative [facility] No Panel InformationOrdered By: Karlos Miller on 09-19-2023 Urine RBC 5-10 SEEN /hpf 0-5 [facility] Estimated Creatinine Clearance Calc 126.10 ml/min [facility] Estimated GFR (MDRD) Amer 141 mL/min >60 [facility] Comment on above: GFR Calc Estimated GFR (MDRD) Non-Af Amer 117 mL/min >60 [facility] Comment on above: Non- GFR Calc Protein Test strip Ql (U)Ord ered By: Karlos Miller on 09-19-2023 Protein Ql (U) Negative Negative [facility] RBC Auto (Bld) [#/Vol]Ordere d By: Karlos Miller on 09-19-2023 RBC (Bld) [#/Vol] 4.74 10*6/uL 4.2-5.4 [facility] Serum or plasma calcium shannon urement (mass/volume)Ordered By: Karlos Miller on 09-19-2023 Calcium [Mass/Vol] 8.7 mg/dL 8.5-10.1 [facility] Serum or plasma choriogonado tropin detectionOrdered By: Karlos Miller on 09-19-2023 HCG ( test) Ql 1366 mIU/mL <4 [facility] Comment on above: hCG levels with Gest ational AgeGestational Age hCG mIU/mL (IU/L)0.2 - 1 week 5 - 501-2 weeks 50 - 5002-3 weeks 100 - 49252-4 weeks 500 - 247857-9 weeks 1000 - 555781-4 weeks 91515 - 100,0006-8 weeks 45639 - 200,0002-3 months 67402 - 100,000 Serum or plasma creatinine m easurement (mass/volume)Ordered By: Karlos Miller on 09-19-2023 Creatinine [Mass/Vol] 0.65 mg/dL 0.55-1.02 [facility] Comment on above: The validity of the calculated GFR & GFRAA in patients over 70 years has not been determined. Clinical correlation is essential. Serum or plasma urea nitroge n measurement (mass/volume)Ordered By: Karlos Miller on 09-19-2023 Urea nitrogen [Mass/Vol] 8 mg/dL 7-18 [facility] Squamous epithelial cells de tection in urine sediment by light microscopyOrdered By: Karlos Miller on 09-19-2023 Epithelial cells.squamous LM Ql (Urine sed) 0 SEEN /hpf 5-10 [facility] Thin prep Papanicolaou smear with manual screeningOrdered By: Karlos Miller on 09-19-2023 Thin prep Papanicolaou smear with manual screening 11 5-15 [facility] Urine blood detectionOrdered By: Karlos Miller on 09-19-2023 RBC Ql (U) 50 /ul Negative [facility] Urine clarityOrdered By: Jen Miller on 09-19-2023 Clarity (U) Sl. Cloudy Clear [facility] Urine color determinationOrd ered By: Karlos Miller on 09-19-2023 Color (U) Yellow Yellow [facility] Urine glucose detectionOrder ed By: Karlos Miller on 09-19-2023 Glucose Ql (U) Normal mg/dl Normal [facility] Urine leukocyte esterase det ection by dipstickOrdered By: Karlos Miller on 09-19-2023 Leukocyte esterase Test strip Ql (U) Negative Negative [facility] Urine pHOrdered By: Karlos stanford on 09-19-2023 pH (U) 8.0 [pH] 5.0 - 8.0 [facility] Urine sediment bacteria coun t by microscopy (number/high power field)Ordered By: Karlos Miller on 09-19-2023 Bacteria LM.HPF (Urine sed) [#/Area] 0 /[HPF] None Seen [facility] Urine specific gravity measu rementOrdered By: Karlos Miller on 09-19-2023 Specific gravity (U) [Rel density] 1.010 1.002-1.030 [facility] Urine urobilinogen measureme ntOrdered By: Karlos Miller on 09-19-2023 Urobilinogen Ql (U) Normal mg/dl Normal [facility] No Panel InformationOrdered By: Yola Schaffer on 03-15-2024 Estradiol (E2) Level 998.4 pg/mL [facility] Comment on above: NORMAL REFERENCE RAN GES [...] HCG ( test) Ql 321 mIU/mL <4 [facility] Comment on above: hCG levels with Gest ational AgeGestational Age hCG mIU/mL (IU/L)0.2 - 1 week 5 - 501-2 weeks 50 - 5002-3 weeks 100 - 21233-8 weeks 500 - 735892-9 weeks 1000 - 385697-2 weeks 66205 - 100,0006-8 weeks 01254 - 200,0002-3 months 54409 - 100,000 Serum or plasma progesterone measurement (mass/volume)Ordered By: Yola Schaffer on 09-15-2023 Progesterone [Mass/Vol] 53.34 ng/mL See Comment [facility] Comment on above: Progesterone Referen ce Table: UNITS Female: Follicular 0.15 - 1.40 ng/mL Luteal 3.34 - 25.56 ng/mL Mid-luteal 4.44 - 28.03 ng/mL Postmenopausal 0.0 - 0.73 ng/mL : 1st Trimester 11.22 - 90.00 ng/mL 2nd Trimester 25.55 - 89.40 ng/mL 3rd Trimester 48.40 -422.50 ng/mL No Panel InformationOrdered By: Yola Schaffer on 09-13-2023 Estradiol (E2) Level 631.1 pg/mL [facility] Comment on above: NORMAL REFERENCE RAN GES [...] HCG ( test) Ql 142 mIU/mL <4 [facility] Comment on above: hCG levels with Gest ational AgeGestational Age hCG mIU/mL (IU/L)0.2 - 1 week 5 - 501-2 weeks 50 - 5002-3 weeks 100 - 01728-6 weeks 500 - 955560-3 weeks 1000 - 831830-2 weeks 81765 - 100,0006-8 weeks 16390 - 200,0002-3 months 96170 - 100,000 Serum or plasma progesterone measurement (mass/volume)Ordered By: Yola Schaffer on 09-13-2023 Progesterone [Mass/Vol] 68.72 ng/mL See Comment [facility] Comment on above: Progesterone Referen ce Table: [...] on 09-13-2023 TSH Qn 1.89 uIU/mL 0.358-3.74 [facility] Serum or plasma choriogonado tropin detectionOrdered By: Yola Schaffer on 2023 HCG ( test) Ql 86 mIU/mL <4 [facility] Comment on above: hCG levels with Gest ational AgeGestational Age hCG mIU/mL (IU/L)0.2 - 1 week 5 - 501-2 weeks 50 - 5002-3 weeks 100 - 03400-4 weeks 500 - 119926-7 weeks 1000 - 225638-0 weeks 77393 - 100,0006-8 weeks 59423 - 200,0002-3 months 12164 - 100,000 Serum or plasma progesterone measurement (mass/volume)Ordered By: Yola Schaffer on 2023 Progesterone [Mass/Vol] 73.77 ng/mL See Comment [facility] Comment on above: Progesterone Referen ce Table: UNITS Female: Follicular 0.15 - 1.40 ng/mL Luteal 3.34 - 25.56 ng/mL Mid-luteal 4.44 - 28.03 ng/mL Postmenopausal 0.0 - 0.73 ng/mL : 1st Trimester 11.22 - 90.00 ng/mL 2nd Trimester 25.55 - 89.40 ng/mL 3rd Trimester 48.40 -422.50 ng/mL No Panel InformationOrdered By: Yola Schaffer on 09-06-2023 Estradiol (E2) Level 586.2 pg/mL [facility] Comment on above: NORMAL REFERENCE RAN GES [...] 09-06-2023 Progesterone [Mass/Vol] 66.90 ng/mL See Comment [facility] Comment on above: Progesterone Referen ce Table: UNITS Female: Follicular 0.15 - 1.40 ng/mL Luteal 3.34 - 25.56 ng/mL Mid-luteal 4.44 - 28.03 ng/mL Postmenopausal 0.0 - 0.73 ng/mL : 1st Trimester 11.22 - 90.00 ng/mL 2nd Trimester 25.55 - 89.40 ng/mL 3rd Trimester 48.40 -422.50 ng/mL No Panel InformationOrdered By: Yola Schaffer on 08-25-2023 Estradiol (E2) Level 1350.2 pg/mL [facility] Comment on above: NORMAL REFERENCE [...] DETERMINE ESTRADIOL CONCENTRATION. Luteinizing Hormone 11.8 mIU/mL [facility] Comment on above: NORMAL REFERENCE RAN GES FEMALE FOLLICULAR 1.9 - 26.2 mIU/mL MID-CYCLE PEAK 22.8 - 76.1 mIU/mL LUTEAL 0.6 - 16.6 mIU/mL POST-MENOPAUSAL ON MHT 1.1 - 52.4 mIU/mL NOT ON MHT 8.6 - 61.8 mIU/mL MALE 1.2 - 10.6 mIU/mL Serum or plasma progesterone measurement (mass/volume)Ordered By: Yola Schaffer on 08-25-2023 Progesterone [Mass/Vol] 0.27 ng/mL See Comment [facility] Comment on above: Progesterone Referen ce Table: UNITS Female: Follicular 0.15 - 1.40 ng/mL Luteal 3.34 - 25.56 ng/mL Mid-luteal 4.44 - 28.03 ng/mL Postmenopausal 0.0 - 0.73 ng/mL : 1st Trimester 11.22 - 90.00 ng/mL 2nd Trimester 25.55 - 89.40 ng/mL 3rd Trimester 48.40 -422.50 ng/mL No Panel InformationOrdered By: Yola Schaffer on 08-23-2023 Estradiol (E2) Level 104.4 pg/mL [facility] Comment on above: NORMAL REFERENCE RAN GES FEMALE FOLLICULAR 21.4 - 164.8 pg/mL MID-CYCLE PEAK 49.9 - 367.2 pg/mL LUTEAL 40.2 - 259.0 pg/mL POST-MENOPAUSAL ON MHT <11.0 - 462.1 pg/mL NOT ON MHT <11.0 - 58.3 pg/mL MALE <11.0 - 52.5 pg/mL NOTE:[employer] HAS CONFIRMED THE DRUG FULVETRANT (FASLODEX) MAY CAUSE FALSELY ELEVATED ESTRADIOL RESULTS WHEN USING THIS TEST METHOD. IF PATIENT IS TAKING FULVESTRANT AN ALTERNATIVE METHOD SHOULD BE USED TO DETERMINE ESTRADIOL CONCENTRATION. Luteinizing Hormone 7.7 mIU/mL [facility] Comment on above: NORMAL REFERENCE RAN GES FEMALE FOLLICULAR 1.9 - 26.2 mIU/mL MID-CYCLE PEAK 22.8 - 76.1 mIU/mL LUTEAL 0.6 - 16.6 mIU/mL POST-MENOPAUSAL ON MHT 1.1 - 52.4 mIU/mL NOT ON MHT 8.6 - 61.8 mIU/mL MALE 1.2 - 10.6 mIU/mL Serum or plasma progesterone measurement (mass/volume)Ordered By: Yola Schaffer on 08-23-2023 Progesterone [Mass/Vol] ng/mL See Comment [facility] Comment on above: Progesterone Referen ce Table: UNITS Female: Follicular 0.15 - 1.40 ng/mL Luteal 3.34 - 25.56 ng/mL Mid-luteal 4.44 - 28.03 ng/mL Postmenopausal 0.0 - 0.73 ng/mL : 1st Trimester 11.22 - 90.00 ng/mL 2nd Trimester 25.55 - 89.40 ng/mL 3rd Trimester 48.40 -422.50 ng/mL No Panel InformationOrdered By: Yola Schaffer on 08-21-2023 Estradiol (E2) Level 30.4 pg/mL [facility] Comment on above: NORMAL REFERENCE RAN GES FEMALE FOLLICULAR 21.4 - 164.8 pg/mL MID-CYCLE PEAK 49.9 - 367.2 pg/mL LUTEAL 40.2 - 259.0 pg/mL POST-MENOPAUSAL ON MHT <11.0 - 462.1 pg/mL NOT ON MHT <11.0 - 58.3 pg/mL MALE <11.0 - 52.5 pg/mL NOTE:[employer] HAS CONFIRMED THE DRUG FULVETRANT (FASLODEX) MAY CAUSE FALSELY ELEVATED ESTRADIOL RESULTS WHEN USING THIS TEST METHOD. IF PATIENT IS TAKING FULVESTRANT AN ALTERNATIVE METHOD SHOULD BE USED TO DETERMINE ESTRADIOL CONCENTRATION. Luteinizing Hormone 21.7 mIU/mL [facility] Comment on above: NORMAL REFERENCE RAN GES FEMALE FOLLICULAR 1.9 - 26.2 mIU/mL MID-CYCLE PEAK 22.8 - 76.1 mIU/mL LUTEAL 0.6 - 16.6 mIU/mL POST-MENOPAUSAL ON MHT 1.1 - 52.4 mIU/mL NOT ON MHT 8.6 - 61.8 mIU/mL MALE 1.2 - 10.6 mIU/mL Serum or plasma progesterone measurement (mass/volume)Ordered By: Yola Schaffer on 08-21-2023 Progesterone [Mass/Vol] ng/mL See Comment [facility] Comment on above: Progesterone Referen ce Table: UNITS Female: Follicular 0.15 - 1.40 ng/mL Luteal 3.34 - 25.56 ng/mL Mid-luteal 4.44 - 28.03 ng/mL Postmenopausal 0.0 - 0.73 ng/mL : 1st Trimester 11.22 - 90.00 ng/mL 2nd Trimester 25.55 - 89.40 ng/mL 3rd Trimester 48.40 -422.50 ng/mL No Panel InformationOrdered By: Yola Schaffer on 08-15-2023 Estradiol (E2) Level 42.6 pg/mL [facility] Comment on above: NORMAL REFERENCE RAN [...] ESTRADIOL CONCENTRATION. Follicle Stimulating Hormone 5.0 mIU/mL [facility] Comment on above: NORMAL REFERENCE RAN GES FEMALE FOLLICULAR 2.3 - 12.6 mIU/mL MID-CYCLE PEAK 5.2 - 17.5 mIU/mL LUTEAL 1.7 - 12.9 mIU/mL POST-MENOPAUSAL ON MHT 5.9 - 72.8 mIU/mL NOT ON MHT 12.7 - 132.2 mlU/mL MALE 0.7 - 10.8 mIU/mL Luteinizing Hormone 4.9 mIU/mL [facility] Comment on above: NORMAL REFERENCE RAN GES FEMALE FOLLICULAR 1.9 - 26.2 mIU/mL MID-CYCLE PEAK 22.8 - 76.1 mIU/mL LUTEAL 0.6 - 16.6 mIU/mL POST-MENOPAUSAL ON MHT 1.1 - 52.4 mIU/mL NOT ON MHT 8.6 - 61.8 mIU/mL MALE 1.2 - 10.6 mIU/mL Serum or plasma progesterone measurement (mass/volume)Ordered By: Yola Schaffer on 08-15-2023 Progesterone [Mass/Vol] 0.21 ng/mL See Comment [facility] Comment on above: Progesterone Referen ce Table: [...] on 08-15-2023 TSH Qn 2.46 uIU/mL 0.358-3.74 [facility] PREG SERUM QUANTon HCG QUANTITATIVE <1 Normal 0 - 6 [facility] Comment on above: Result Comment: Refe [...] 3RD TRIMESTER 1000-50,000 Performed By: #### 2 68893 #### [facility],[address] [place] [address] No Panel InformationOrdered By: Yola Schaffer on 08-07-2023 Estradiol (E2) Level 268.0 pg/mL [facility] Comment on above: NORMAL REFERENCE RAN GES [...] HCG ( test) Ql 13 mIU/mL <4 [facility] Comment on above: hCG levels with Gest ational AgeGestational Age hCG mIU/mL (IU/L)0.2 - 1 week 5 - 501-2 weeks 50 - 5002-3 weeks 100 - 55263-4 weeks 500 - 981450-0 weeks 1000 - 594570-7 weeks 24280 - 100,0006-8 weeks 47191 - 200,0002-3 months 15035 - 100,000 Serum or plasma progesterone measurement (mass/volume)Ordered By: Yola Schaffer on 08-07-2023 Progesterone [Mass/Vol] 41.43 ng/mL See Comment [facility] Comment on above: Progesterone Referen ce Table: [...] on 08-05-2023 E2 IA [Moles/Vol] 276.2 pg/mL [facility] Comment on above: NORMAL REFERENCE [...] HCG ( test) Ql 31 mIU/mL <4 [facility] Comment on above: hCG levels with Gest ational AgeGestational Age hCG mIU/mL (IU/L)0.2 - 1 week 5 - 501-2 weeks 50 - 5002-3 weeks 100 - 18157-3 weeks 500 - 265804-3 weeks 1000 - 278401-4 weeks 93921 - 100,0006-8 weeks 49251 - 200,0002-3 months 45560 - 100,000 Serum or plasma progesterone measurement (mass/volume)Ordered By: Yola Schaffer on 08-05-2023 Progesterone [Mass/Vol] 53.90 ng/mL See Comment [facility] Comment on above: Progesterone Referen ce Table: [...] on 08-05-2023 TSH Qn 2.49 uIU/mL 0.358-3.74 [facility] Serum or plasma choriogonado tropin detectionOrdered By: Yola Schaffer on 08-03-2023 HCG ( test) Ql 36 mIU/mL <4 [facility] Comment on above: hCG levels with Gest ational AgeGestational Age hCG mIU/mL (IU/L)0.2 - 1 week 5 - 501-2 weeks 50 - 5002-3 weeks 100 - 09205-5 weeks 500 - 059639-8 weeks 1000 - 297978-0 weeks 21864 - 100,0006-8 weeks 75986 - 200,0002-3 months 13923 - 100,000 Serum or plasma progesterone measurement (mass/volume)Ordered By: Yola Schaffer on 08-03-2023 Progesterone [Mass/Vol] 49.44 ng/mL See Comment [facility] Comment on above: Progesterone Referen ce Table: UNITS Female: Follicular 0.15 - 1.40 ng/mL Luteal 3.34 - 25.56 ng/mL Mid-luteal 4.44 - 28.03 ng/mL Postmenopausal 0.0 - 0.73 ng/mL : 1st Trimester 11.22 - 90.00 ng/mL 2nd Trimester 25.55 - 89.40 ng/mL 3rd Trimester 48.40 -422.50 ng/mL Estradiol measurementOrdered By: Yola Schaffer on 07-29-2023 E2 IA [Moles/Vol] 279.0 pg/mL [facility] Comment on above: NORMAL REFERENCE [...] 07-29-2023 Progesterone [Mass/Vol] 54.70 ng/mL See Comment [facility] Comment on above: Progesterone Referen ce Table: UNITS Female: Follicular 0.15 - 1.40 ng/mL Luteal 3.34 - 25.56 ng/mL Mid-luteal 4.44 - 28.03 ng/mL Postmenopausal 0.0 - 0.73 ng/mL : 1st Trimester 11.22 - 90.00 ng/mL 2nd Trimester 25.55 - 89.40 ng/mL 3rd Trimester 48.40 -422.50 ng/mL ANTIMULLERIAN HORMONE [CCL]o n 05-06-2023 Anti Michelle Hormone 4.43 ng/mL Normal 0.89-9.85 [facility] Comment on above: Result Comment: [facility] [address] [place] [address] Salvador Cuenca III, M.D. [id number] Performed By: #### 2 68283 #### [address] [address] HEP B SURFACE AG [CCL]on Hepatitis B Surf. Ag Negative Normal Negative [facility] Comment on above: Result Comment: [facility] [address] [place] [address] Salvador Cuenca III, M.D. [id number] Performed By: #### 2 26276 #### [address] [address] HEPATITIS C AB IA W/CONFIRM [CCL]on 05-06-2023 Hepatitis C Ab IA Negative Normal Negative [facility] Comment on above: Result Comment: The result suggests no evidence of active infection with Hepatitis C virus. Should recent infection be suspected, repeat testing may be considered 4-6 weeks after this draw. [facility] [employer] [address] [place] [address] Salvador Cuenca III, M.D. [id number] Performed By: #### 2 61368 #### [address] [address] HGB A1C [CCL]on 05-06-2023 HbA1c (Bld) [Mass fraction] 5.0 % Normal 4.3-5.6 [facility] Comment on above: Result Comment: [place] Diabetes Association guidelines indicate that patients with HgbA1c in the range 5.7-6.4% are at increased risk for development of diabetes, and intervention by lifestyle modification may be beneficial. HgbA1c greater or equal to 6.5% is considered diagnostic of diabetes. Performed By: #### 2 16898 #### [facility],[address] [place], [place] [id number] Hemoglobin A0 97 mg/dL Normal [facility] Comment on above: Result Comment: eAG: (Estimated average glucose) is a calculated value from HgbA1c and is healthcare sales representative of the average blood glucose level in the last 2-[address] [address] Salvador Cuenca III, M.D. [id number] Performed By: #### 2 31730 #### [facility],[address] [place] [address] PROLACTIN [CCL]on 05-06-2023 Prolactin 10.1 ng/mL Normal 4.5-26.8 [facility] Comment on above: Result Comment: Prol actin test is performed using the [employer] Electrochemiluminescence Immunoassay method. Results obtained with different methods or kits [place] [address] Salvador Cuenca III, M.D. [id number] Performed By: #### 2 65093 #### [address] [address] RPR [CCL]on 05-06-2023 Reagin Ab RPR Ql (S) Non-Reactive Normal Nonreactive [facility] Comment on above: Result Comment: Rapi d plasma reagin (RPR) test detects non-treponemal antibodies. RPR may be reactive in a variety of infectious and non-infectious conditions. Correlation with clinical picture and with treponemal antibody results is required for final interpretation. [address] [place] [address] Salvador Cuenca III, M.D. [id number] Performed By: #### 2 82528 #### [address] [address] RUBELLA IgG ANTIBODY [CCL]on 05-06-2023 Rubella IgG Ab, Qual Positive Normal Positive [facility] Comment on above: Result Comment: The result suggests recent or past exposure to Rubella virus or history of Rubella vaccination. Positive result may also be seen due to presence of passively-transferred antibodies. Please correlate with patient's history. [address] [place] [address] Salvador Cuenca III, M.D. [id number] Performed By: #### 2 57532 #### [address] [address] SYPHILIS TOTAL W/REFLEX [CCL ]on 05-06-2023 Syphilis Interp Cannot exclude recen t Treponemal infection if specimen collected within 7-10 day Normal [facility] Comment on above: Result Comment: [address] [place] [address] Salvador Cuenca III, M.D. [id number] Performed By: #### 2 00238 #### [id number] Syphilis Screen Rslt Non-Reactive Normal Nonreactive [facility] Comment on above: Performed By: #### 2 47980 #### [id number] HIV 1/2 COMBO (AG/AB) [CCL]o n 05-05-2023 HIV 1/2 COMBO (AG/AB) [CCL] Normal [facility] Comment on above: Result Comment: _HIV 1/2 COMBO (AG/AB) [CCL]_ SEE SEPARATE REPORT Performed By: #### 2 39356 #### [address] [address] CBC (NO DIFF)on 05-04-2023 CBC panel Auto (Bld) Normal [facility] Comment on above: Result Comment: CBC( WITHOUT DIFFERENTIAL) Performed By: #### 2 06636 #### [address] [address] Erythrocyte distribution width (RBC) [Ratio] 13.4 % Normal 12.0 - 15.6 [facility] Comment on above: Performed By: #### 2 05873 #### [facility],[address] [place] [address] Hematocrit (Bld) [Volume fraction] 43.8 % Normal 34.0 - 46.0 [facility] Comment on above: Performed By: #### 2 70128 #### [facility],[address] [place] [address] Hemoglobin (Bld) [Mass/Vol] 14.2 g/dL Normal 12.0 - 16.0 [facility] Comment on above: Performed By: #### 2 38936 #### [facility],[address] [place] [address] MCH (RBC) [Entitic mass] 29 pg Normal 27 - 33 [facility] Comment on above: Performed By: #### 2 34830 #### [facility],[address] [place] [address] MCHC 33 X10 3 Normal 32 - 36 [facility] Comment on above: Performed By: #### 2 64024 #### [facility],[address] [place], [place] [id number] MCV (RBC) [Entitic vol] 89 fL Normal 80 - 99 [facility] Comment on above: Performed By: #### 2 65774 #### [facility],[address] [place], [place] [id number] PLATELET 333 x10EE3/UL Normal 150 - 450 [facility] Comment on above: Performed By: #### 2 18639 #### [facility],[address] [place] [address] Platelet mean volume (Bld) [Entitic vol] 8.1 fL Normal 6.6 - 10.5 [facility] Comment on above: Performed By: #### 2 00187 #### [facility],[address] [place], [place] [id number] RBC 4.95 x 10EE6/UL Normal 4.10 - 5.30 [facility] Comment on above: Performed By: #### 2 12891 #### [facility],[address] [place] [address] WBC 8.6 x 10EE3/UL Normal 4.5 - 10.8 [facility] Comment on above: Performed By: #### 2 20782 #### [facility],[address] [place] [address] PREG SERUM QUANTon 3 HCG QUANTITATIVE <1 Normal 0 - 6 [facility] Comment on above: Result Comment: Refe [...] 3RD TRIMESTER 1000-50,000 Performed By: #### 2 93994 #### [facility],[address] [place] [address] ANTI MULLERIAN HORMONEon Mullerian inhibiting substance [Mass/Vol] 4.43 ng/mL Normal 0.89-9.85 [facility] Comment on above: Order Comment: Speci men Type: BLOOD SPECIMEN Ordering Facility: [facility] Address: [address] [place] [address] Performed By: #### 2 842-3, AMINAH, 37531-3, 15118-5, 5195-3, 81197-9, TISH, 19222-6 #### [facility] CLIA [id number] [address] [place] [address] [place] BB TYPE & SCREENon 3 ABO O Normal [facility] Comment on above: Performed By: #### 2 29229 #### [facility],[address] [place] [address] ANTIBODY SCR Negative Normal [facility] Comment on above: Performed By: #### 2 72325 #### [facility],[address] [place] [address] BB TYPE & SCREEN Normal [facility] Comment on above: Result Comment: TYPE , Rh, AND SCREEN Performed By: #### 2 29005 #### [facility],[address] [place] [address] Rh Nom (Bld) Positive Normal [facility] Comment on above: Performed By: #### 2 83793 #### [facility],[address] [place] [address] CBC + DIFFon 05-03-2023 Baso # 0.00 x10EE3/UL Normal 0.00 - 0.10 [facility] Comment on above: Performed By: #### 2 76044 #### [facility],[address] [place] [address] Basophils/100 WBC (Bld) 0.4 % Normal 0.0 - 2.0 [facility] Comment on above: Performed By: #### 2 70378 #### [facility],[address] [place] [address] CBC + DIFF Normal [facility] Comment on above: Result Comment: CBC- COMPLETE BLOOD COUNT Performed By: #### 2 70967 #### [facility],[address] [place] [address] EO # 0.10 x10EE3/UL Normal 0.00 - 0.50 [facility] Comment on above: Performed By: #### 2 93553 #### [facility],[address] [place] [address] Eosinophils/100 WBC (Bld) 1.6 % Normal 0.0 - 7.0 [facility] Comment on above: Performed By: #### 2 77096 #### [facility],[address] [place] [address] Erythrocyte distribution width (RBC) [Ratio] 13.4 % Normal 12.0 - 15.6 [facility] Comment on above: Performed By: #### 2 98408 #### [facility],[address] [place] [address] Hematocrit (Bld) [Volume fraction] 43.8 % Normal 34.0 - 46.0 [facility] Comment on above: Performed By: #### 2 08748 #### [facility],[address] [place] [address] Hemoglobin (Bld) [Mass/Vol] 14.2 g/dL Normal 12.0 - 16.0 [facility] Comment on above: Performed By: #### 2 60217 #### [place] [address] Lymph # 3.20 x10EE3/UL High 0.80 - 2.80 [facility] Comment on above: Performed By: #### 2 41588 #### [facility],[address] [place] [address] Lymphocytes/100 WBC (Bld) 36.9 % Normal 20.0 - 45.0 [facility] Comment on above: Performed By: #### 2 14176 #### [facility],[address] [place], [place] [phone] MANUAL DIFF N/A Normal [facility] Comment on above: Performed By: #### 2 84643 #### [facility],[address] [place], [place] [phone] MCH (RBC) [Entitic mass] 29 pg Normal 27 - 33 [facility] Comment on above: Performed By: #### 2 87778 #### [place] [address] MCHC 33 X10 3 Normal 32 - 36 [facility] Comment on above: Performed By: #### 2 41744 #### [facility],[address] [place] [address] 12189 MCV (RBC) [Entitic vol] 89 fL Normal 80 - 99 [facility] Comment on above: Performed By: #### 2 35976 #### [facility],[address] [place], [place] [phone] [place] # 0.60 x10EE3/UL Normal 0.20 - 1.00 [facility] Comment on above: Performed By: #### 2 70793 #### [facility],[address] [place] [address] 96379 MONOS % 7.4 % Normal 0.0 - 10.0 [facility] Comment on above: Performed By: #### 2 28194 #### [facility],[address] [place], [place] [phone] Morphology Shane (Bld) [Interp] N/A Normal [facility] Comment on above: Performed By: #### 2 92550 #### [facility],[address] [place] [address] 93920 Neut # 4.60 x10EE3/UL Normal 1.50 - 7.10 [facility] Comment on above: Performed By: #### 2 19542 #### [facility],[address] [place] [address] 92712 Neutrophils/100 WBC (Bld) 53.7 % Normal 46.0 - 76.0 [facility] Comment on above: Performed By: #### 2 05427 #### [facility],[address] [place] [address] 59107 PLATELET 333 x10EE3/UL Normal 150 - 450 [facility] Comment on above: Performed By: #### 2 17632 #### [facility],[address] [place] [address] 56398 Platelet mean volume (Bld) [Entitic vol] 8.1 fL Normal 6.6 - 10.5 [facility] Comment on above: Result Comment: AUTO MATED DIFFERENTIAL Performed By: #### 2 29076 #### [facility],[address] [place] [address] 45174 RBC 4.95 x 10EE6/UL Normal 4.10 - 5.30 [facility] Comment on above: Performed By: #### 2 22876 #### [facility],[address] [place] [address] 76683 WBC 8.6 x 10EE3/UL Normal 4.5 - 10.8 [facility] Comment on above: Performed By: #### 2 70844 #### [facility],[address] [place] [address] 29538 CMP with eGFRon 05-03-2023 AGE 27 years Normal [facility] Comment on above: Performed By: #### 2 25327 #### [facility],[address] [place] [address] 48118 Albumin [Mass/Vol] 4.1 g/dL Normal 3.4 - 5.0 [facility] Comment on above: Performed By: #### 2 67257 #### [facility],[address] [place] [address] 33161 Albumin/Globulin [Mass ratio] 1.3 {ratio} Normal 0.9 - 1.6 [facility] Comment on above: Performed By: #### 2 70589 #### [facility],[address] [place] [address] 49631 ALK PHOS 84 U/L Normal 46 - 116 [facility] Comment on above: Performed By: #### 2 58152 #### [facility],[address] [place] [address] 52693 ALT [Catalytic activity/Vol] 23 U/L Normal 14 - 59 [facility] Comment on above: Performed By: #### 2 82927 #### [facility],[address] [place] [address] 86362 Anion gap [Moles/Vol] 14 mmol/L Normal 10 - 20 [facility] Comment on above: Performed By: #### 2 93469 #### [facility],[address] [place] [address] 40050 AST [Catalytic activity/Vol] 9 U/L Low 13 - 39 [facility] Comment on above: Performed By: #### 2 36662 #### [facility],[address] [place] [address] 98935 B/C RATIO 12 ratio Normal 0 - 30 [facility] Comment on above: Performed By: #### 2 40520 #### [facility],[address] [place] [address] 15139 Bilirubin [Mass/Vol] 0.2 mg/dL Normal 0.2 - 1.0 [facility] Comment on above: Performed By: #### 2 62952 #### [facility],[address] [place] [address] 62058 Calcium [Mass/Vol] 9.1 mg/dL Normal 8.5 - 10.1 [facility] Comment on above: Performed By: #### 2 93353 #### [facility],[address] [place] [address] 20358 Chloride [Moles/Vol] 102 mmol/L Normal 98 - 107 [facility] Comment on above: Performed By: #### 2 32012 #### [facility],[address] [place] [address] 02352 CMP with eGFR Normal [facility] Comment on above: Result Comment: COMP REHENSIVE METABOLIC PANEL Performed By: #### 2 19560 #### [facility],[address] [place] [address] 81503 CO2 [Moles/Vol] 26.4 mmol/L Normal 21.0 - 32.0 [facility] Comment on above: Performed By: #### 2 08629 #### [facility],[address] [place] [address] 94518 Creatinine [Mass/Vol] 0.59 mg/dL Normal 0.55 - 1.02 [facility] Comment on above: Performed By: #### 2 55992 #### [facility],[address] [place] [address] 64808 GFR/1.73 sq M.predicted among non-blacks MDRD (S/P/Bld) [Vol rate/Area] mL/min/{1.73_m2} Normal 60 - 999 [facility] Comment on above: Performed By: #### 2 56114 #### [facility],[address] [place] [address] Result Comment: ACCO RDING TO THE NATIONAL KIDNEY DISEASE EDUCATION PROGRAM(NKDE), A NORMAL eGFR IS A VALUE GREATER THAN OR EQUAL TO 60 ML/MIN/1.73 SQ METERS. CHRONIC KIDNEY DISEASE: <60mL/MIN/1.73 SQ METERS KIDNEY FAILURE: <15mL/MIN/1.73 SQ METERS THIS TEST SHOULD ONLY BE USED FOR PATIENTS 18 YEARS OF AGE AND OLDER. Globulin (S) [Mass/Vol] 3.2 g/dL Normal 1.5 - 3.8 [facility] Comment on above: Performed By: #### 2 25604 #### [facility],[address] [place] [address] 73005 Glucose [Mass/Vol] 81 mg/dL Normal 74 - 106 [facility] Comment on above: Performed By: #### 2 96312 #### [facility],[address] [place] [address] 46180 Potassium [Moles/Vol] 3.5 mmol/L Normal 3.5 - 5.1 [facility] Comment on above: Performed By: #### 2 21965 #### [facility],[address] [place] [address] 97585 Protein [Mass/Vol] 7.3 g/dL Normal 6.4 - 8.2 [facility] Comment on above: Performed By: #### 2 12380 #### [facility],[address] [place] [address] 63460 Sodium [Moles/Vol] 139 mmol/L Normal 136 - 145 [facility] Comment on above: Performed By: #### 2 40389 #### [facility],[address] [place] [address] 87538 Urea nitrogen [Mass/Vol] 7 mg/dL Normal 7 - 18 [facility] Comment on above: Performed By: #### 2 10464 #### [facility],[address] [place] [address] 05387 HBV surface Ag Ser Qlon HBV surface Ag Ql (S) Negative Normal Negative [facility] Comment on above: Order Comment: Speci men Type: BLOOD SPECIMEN Ordering Facility: [facility] Address: [address] [place], [place] [address] Performed By: #### 2 842-3, AMINAH 78431-8, 41786-0, 5195-3, 94773-3, TISH, 85547-6 #### [facility] CLIA [id number] [address] [place] [address] [place] HCV Ab Ser Qlon 05-03-2023 HCV Ab Ql (S) Negative Normal Negative [facility] Comment on above: Order Comment: Speci men Type: BLOOD SPECIMEN Ordering Facility: [facility] Address: [address] [place] [address] Result Comment: The result suggests no evidence of active infection with Hepatitis C virus. Should recent infection be suspected, repeat testing may be considered 4-6 weeks after this draw. Performed By: #### 2 842-3, AMINAH, 25105-6, 97934-2, 5195-3, 21459-4, TISH, 57685-9 #### [facility] CLIA [id number] [address] [place], [place] [id number] [place] HbA1c (Bld)on 05-03-2023 Average glucose Estimated from glycated hemoglobin (Bld) [Mass/Vol] 97 mg/dL Normal [facility] Comment on above: Order Comment: Rhina dowd Type: BLOOD SPECIMEN Ordering Facility: [facility] Address: [address] [place] [address] Result Comment: eAG: (Estimated average glucose) is a calculated value from HgbA1c and is healthcare sales representative of the average blood glucose level in the last 2-3 month period. Performed By: #### 2 842-3AMINAH, 68620-5, 35415-6, 5195-3, 51228-3, TISH, 48253-7 #### [facility] CLIA [id number] [address] [place] [address] [place] HbA1c (Bld) [Mass fraction] 5.0 % Normal 4.3-5.6 [facility] Comment on above: Order Comment: Rhina dowd Type: BLOOD SPECIMEN Ordering Facility: [facility] Address: [address] [place] [address] Result Comment: Amer [place] Diabetes Association guidelines indicate that patients with HgbA1c in the range 5.7-6.4% are at increased risk for development of diabetes, and intervention by lifestyle modification may be beneficial. HgbA1c greater or equal to 6.5% is considered diagnostic of diabetes. Performed By: #### 2 842-3AMINAH, 54841-4, 91153-4, 5195-3, 30302-4, TISH, 78429-0 #### [facility] CLIA [id number] [address] [place] [address] [place] Prolactin SerPl-mCncon 05-03 Prolactin [Mass/Vol] 10.1 ng/mL Normal 4.5-26.8 [facility] Comment on above: Order Comment: Rhina dowd Type: BLOOD SPECIMEN Ordering Facility: [facility] Address: [address] [place] [address] Result Comment: Prol actin test is performed using the [employer] Electrochemiluminescence Immunoassay method. Results obtained with different methods or kits cannot be used interchangeably. Performed By: #### 2 842-3, AMINAH 67892-1, 40706-0, 5195-3, 98804-6, TISH, 14631-0 #### [facility] CLIA [id number] [address] [place] [address] [place] RPR Ser Qlon 05-03-2023 Reagin Ab RPR Ql (S) Non-Reactive Normal Nonreactive [facility] Comment on above: Order Comment: Speci men Type: BLOOD SPECIMEN Ordering Facility: [facility] Address: [address] [place] [address] Result Comment: Rapi d plasma reagin (RPR) test detects non-treponemal antibodies. RPR may be reactive in a variety of infectious and non-infectious conditions. Correlation with clinical picture and with treponemal antibody results is required for final interpretation. Performed By: #### 2 842-3, RUBDOMINIKG, 26302-4, 49130-1, 5195-3, 74450-9, TISH, 42614-6 #### [facility] CLIA [id number] [address] [place] [address] [place] RUBELLA IGG ABon 05-03-2023 RUBELLA IGG AB, QUAL Positive Normal [facility] Comment on above: Order Comment: Speci men Type: BLOOD SPECIMEN Ordering Facility: [facility] Address: [address] [place] [address] Result Comment: The result suggests recent or past exposure to Rubella virus or history of Rubella vaccination. Positive result may also be seen due to presence of passively-transferred antibodies. Please correlate with patient's history. Performed By: #### 2 842-3, RUBIGG, 03258-2, 50017-6, 5195-3, 66702-2, TISH, 96179-6 #### [facility] CLIA [id number] [address] [place], [place] [id number] [place] Reagin and Treponema pallidu m IgG and IgM [Interp]on 05-03-2023 T. pallidum IgG+IgM IA Ql (S) Non-Reactive Normal Nonreactive [facility] Comment on above: Order Comment: Speci men Type: BLOOD SPECIMEN Ordering Facility: [facility] Address: [address] [place] [address] Performed By: #### 2 842-3, NAYELYKEE, 41867-1, 75857-5, 5195-3, 71407-3, MICHELLE, 24224-2 #### [facility] CLIA [id number] [address] [place] [address] [place] Reagin+T pallidum IgG+IgM Se rPl-Impon 05-03-2023 Reagin and Treponema pallidum IgG and IgM [Interp] Cannot exclude recent Treponemal infection if specimen collected within 7-10 days after appearance of suspect lesions or 2-3 weeks after an exposure. Clinical correlation is required. Normal [facility] Comment on above: Order Comment: Speci men Type: BLOOD SPECIMEN Ordering Facility: [facility] Address: [address] [place] [address] Performed By: #### 2 842-3, AMINAH, 10594-1, 60238-4, 5195-3, 30155-2, MICHELLE, 58477-9 #### [facility] CLIA [id number] [address] [place] [address] [place] TSHon 05-03-2023 TSH Qn 1.44 m[IU]/L Normal 0.35 - 3.74 [facility] Comment on above: Performed By: #### 2 17790 #### [facility],[address] [place] [address] 16453 VITAMIN D, 25 HYDROXYon 11 VitD 28.80 ng/mL Low 30.00 - 100 [facility] Comment on above: Result Comment: 25-O [...] D2 Not Established Performed By: #### 2 83003 #### [facility],[address] [facility] [address] Serum or plasma progesterone measurement (mass/volume)Ordered By: Julianna Villareal on 03-07-2023 Progesterone [Mass/Vol] 9.21 ng/mL See Comment [facility] Comment on above: Progesterone Referen ce Table: [...] 01-20-2023 Progesterone [Mass/Vol] 0.63 ng/mL See Comment [facility] Comment on above: Progesterone Referen ce Table: UNITS Female: Follicular 0.15 - 1.40 ng/mL Luteal 3.34 - 25.56 ng/mL Mid-luteal 4.44 - 28.03 ng/mL Postmenopausal 0.0 - 0.73 ng/mL : 1st Trimester 11.22 - 90.00 ng/mL 2nd Trimester 25.55 - 89.40 ng/mL 3rd Trimester 48.40 -422.50 ng/mL Serum or plasma prolactin me asurement (mass/volume)Ordered By: Julianna Villareal on 01-20-2023 Prolactin [Mass/Vol] 16.0 ng/mL [facility] Comment on above: NORMAL REFERENCE RAN GES FEMALE NON- 2.2 - 30.3 ng/mL 8.1 - 347.6 ng/mL POST-MENOPAUSAL 0.7 - 31.5 ng/mL MALE 2.5 - 17.4 ng/mL Basophil percentageOrdered B y: Dr. Villareal on 12-02-2022 WBC (Bld) [#/Vol] 4.8 10*3/uL 4.4-11.0 [facility] Blood erythrocytes count (nu mber/volume)Ordered By: Dr. Villareal on 12-02-2022 RBC (Bld) [#/Vol] 4.63 10*6/uL 4.2-5.4 [facility] Blood hemoglobin measurement (mass/volume)Ordered By: Dr. Villareal on 12-02-2022 Hemoglobin (Bld) [Mass/Vol] 13.6 g/dL 12.0-15.0 [facility] Blood platelet mean volumeOr dered By: Dr. Villareal on 12-02-2022 Platelet mean volume (Bld) [Entitic vol] 9.5 fL 6.2-12.0 [facility] Determination of erythrocyte mean corpuscular volume (MCV)Ordered By: Dr. Villareal on 12-02-2022 MCV (RBC) [Entitic vol] 86.6 fL 81-99 [facility] Hematocrit Auto (Bld) [Volum e fraction]Ordered By: Dr. Villareal on 12-02-2022 Hematocrit (Bld) [Volume fraction] 40.1 % 37-47 [facility] Laboratory - Chemistry and C hemistry - challengeOrdered By: Dr. Villareal on 12-02-2022 Free T4 [Mass/Vol] 1.05 ng/dL 0.76-1.46 [facility] HCG ( test) Ql (U) Negative [facility] Comment on above: Very dilute urine sp ecimens, as indicated by a low specificgravity, may not contain healthcare sales representative levels of hCG. If is still suspected, a first morning urinespecimen should be collected 48 hours later and tested. Laboratory - Hematology and Cell countsOrdered By: Dr. Villareal on 12-02-2022 Erythrocyte distribution width (RBC) [Entitic vol] 41.8 fL 35.1-43.9 [facility] Erythrocyte distribution width (RBC) [Ratio] 13.3 % 11.6-14.6 [facility] MCH (RBC) [Entitic mass] 29.4 pg 27.0-32.0 [facility] MCHC Auto (RBC) [Mass/Vol]Or dered By: Dr. Villareal on 12-02-2022 MCHC (RBC) [Mass/Vol] 33.9 g/dL 32-36 [facility] No Panel InformationOrdered By: Dr. Villareal on 12-02-2022 Thyroid Stimulating Hormone (TSH) 0.95 uIU/mL 0.358-3.74 [facility] Platelets bldOrdered By: Dr. Villareal on 12-02-2022 Platelets (Bld) [#/Vol] 259 10*3/uL 150-450 [facility] Cervical or vagninal specime n microscopic examination by cytology stain (reported asOrdered By: Dr. Villareal on 10-14-2022 Cytology report Cyto stain Doc (Cvx/Vag) Comment . [facility] Comment on above: The Pap smear is a s creening test designed to aid in thedetection of premalignant and malignant conditions of theuterine cervix. It is not a diagnostic procedure andshould not be used as the sole means of detecting cervicalcancer. Both false-positive and false-negative reports dooccur. Laboratory - CytologyOrdered By: Dr. Villareal on 10-14-2022 Line Tester Cyto stain Nom (Cvx/Vag) [ID] Comment . [facility] Comment on above: Katherine Brennan, Cytot echnologist (ASCP) Laboratory - Miscellaneous t estsOrdered By: Dr. Villareal on 10-14-2022 Service comment (Unsp spec) [Interp] Comment . [facility] Comment on above: This liquid based Th inPrep(R) pap test was screened withthe use of an image guided system. Service comment (Unsp spec) [Interp] . . [facility] No Panel InformationOrdered By: Dr. Villareal on 10-14-2022 Human Papillomavirus Screen Comment . [facility] Comment on above: The HPV DNA reflex c riteria were not met with this specimenresult therefore, no HPV testing was performed.Performed at: [address] [id number] Director: Machelle Ambrocio MD, Phone: [phone] Pathology report final diagnosis Narrative Comment . [facility] Comment on above: NEGATIVE FOR INTRAEP ITHELIAL LESION OR MALIGNANCY. Laboratory - Hematology and Cell countsOrdered By: Chin Edge on 09-27-2022 HbA1c (Bld) [Mass fraction] 5.3 % Normal 4.6 - 7.1 % [facility]. Absolute lymphocyte counton 04-08-2022 Lymphocytes Auto (Unsp spec) [#/Vol] 3.46 10*3/uL 0.83-4.51 [facility] Work Phone: Basophil percentageon 2021 Basophils/100 WBC (Bld) 0.3 % 0-1 [facility] Work Phone: Eosinophils/100 WBC (Bld) 2.2 % 0-5 [facility] Work Phone: Neutrophils (Bld) [#/Vol] 4.8 10*3/uL 2.0-7.7 [facility] Work Phone: Neutrophils/100 WBC (Bld) 52.8 % 47-70 [facility] Work Phone: WBC (Bld) [#/Vol] 9.0 10*3/uL 4.4-11.0 [facility] Work Phone: Beta hCG serum qualon 2021 Beta HCG ( test) Ql Negative [facility] Work Phone: Blood erythrocytes count (nu mber/volume)on 04-08-2022 RBC (Bld) [#/Vol] 4.52 10*6/uL 4.2-5.4 [facility] Work Phone: Blood hemoglobin measurement (mass/volume)on 04-08-2022 Hemoglobin (Bld) [Mass/Vol] 13.1 g/dL 12.0-15.0 [facility] Work Phone: Blood lymphocytes/100 leukoc yteson 04-08-2022 Lymphocytes/100 WBC (Bld) 38.4 % 19-41 [facility] Work Phone: Blood monocytes/100 leukocyt eson 04-08-2022 Monocytes/100 WBC (Bld) 6.1 % 0-10 [facility] Work Phone: Blood platelet mean volumeon 04-08-2022 Platelet mean volume (Bld) [Entitic vol] 9.2 fL 6.2-12.0 [facility] Work Phone: [phone] Determination of erythrocyte mean corpuscular volume (MCV)on 04-08-2022 MCV (RBC) [Entitic vol] 88.9 fL 81-99 [facility] Work Phone: [phone] Hematocrit Auto (Bld) [Volum e fraction]on 04-08-2022 Hematocrit (Bld) [Volume fraction] 40.2 % 37-47 [facility] Work Phone: [phone] Laboratory - Hematology and Cell countson 04-08-2022 Erythrocyte distribution width (RBC) [Entitic vol] 41.5 fL 35.1-43.9 [facility] Work Phone: [phone] Erythrocyte distribution width (RBC) [Ratio] 12.7 % 11.6-14.6 [facility] Work Phone: [phone] Immature granulocytes/100 WBC (Bld) 0.200 % 0.0-0.9 [facility] Work Phone: [phone] Comment on above: IG% - Immature Granu locytes (promyelocytes, myelocytes and metamyelocytes) > 1% indicates that a LEFT SHIFT is Present. MCH (RBC) [Entitic mass] 29.0 pg 27.0-32.0 [facility] Work Phone: [phone] Nucleated RBC/100 WBC (Bld) [Ratio] 0 % 0-5 [facility] Work Phone: [phone] MCHC Auto (RBC) [Mass/Vol]on 04-08-2022 MCHC (RBC) [Mass/Vol] 32.6 g/dL 32-36 [facility] Phone: [phone] Platelets bldon 04-08-2022 Platelets (Bld) [#/Vol] 300 10*3/uL 150-450 [facility] Work Phone: [phone] T3, FREEon 08-04-2021 Free T3 [Mass/Vol] 3.2 pg/mL Normal 2.3-4.2 [facility] Comment on above: Performed By: #### 8 52, 54161, 5081 #### [facility] [address], [address] [place] [address] Insurance Sales Specialist: Donald Robert MD T4, FREEon 08-04-2021 Free T4 [Mass/Vol] 1.1 ng/dL Normal 0.8-1.8 [facility] Comment on above: Performed By: #### 8 66, 94607, 5081 #### [facility] [address], [address] [place] [address] Insurance Sales Specialist: Donald Robert MD THYROID PEROXIDASE ANTIBODIE Son 08-04-2021 THYROID PEROXIDASE ANTIBODIES 1 IU/mL Normal <9 [facility] Comment on above: Performed By: #### 8 66, 09802, 5081 #### [facility] [address], [address] [place] [address] Insurance Sales Specialist: Donald Robert MD Laboratory - Chemistry and C hemistry - challengeon 08-03-2021 Free T3 [Mass/Vol] 3.2 pg/mL Normal 2.3 - 4.2 pg/mL [facility], [facility], [facility] Free T4 [Mass/Vol] 1.1 ng/dL Normal 0.8 - 1.8 ng/dL [facility], [facility].; [employer] [facility], [facility] No Panel Informationon 08-03 THYROID PEROXIDASE ANTIBODIES 1 {IU/mL} Normal [facility], [facility], [facility] Laboratory - Microbiology an d Antimicrobial susceptibilityon 05-13-2021 S. pyogenes Ag EIA Ql (Throat) Negative Normal [facility], [facility].; [facility], [facility] Vital Signs Date Time Vital Sign Value Performing Clinician Facility 03-06-2025 14:35-0400 Body height 157.48 cm Marco LUNA Work Phone: [facility] 03-06-2025 14:35-0400 Body mass index (BMI) [Ratio] 31.1 kg/m2 Marco LUNA Work Phone: [facility] 03-06-2025 14:35-0400 Body weight 77.28 kg Marco Melvin PA Work Phone: [facility] 03-06-2025 14:35-0400 Diastolic blood pressure 80 mm[Hg] Marco Melvin PA Work Phone: [facility] 03-06-2025 14:35-0400 Systolic blood pressure 110 mm[Hg] Marco Melvin PA Work Phone: [phone] [place] [address] 10-14-2024 21:58-0400 Body temperature 98.2 [degF] Marco Melvin PA Work Phone: [phone] [place] [address] 10-14-2024 21:58-0400 Diastolic blood pressure 87 mm[Hg] Marco Melvin PA Work Phone: [phone] [address] 10-14-2024 21:58-0400 Heart rate 68 /min Marco Melvin PA Work Phone: [phone] [address] 10-14-2024 21:58-0400 Respiratory rate 12 /min Marco Melvin PA Work Phone: [phone] [place] [address] 10-14-2024 21:58-0400 SaO2% (BldA) [Mass fraction] 100 % Marco Melvin PA Work Phone: [phone] [place] [address] 10-14-2024 21:58-0400 Systolic blood pressure 110 mm[Hg] Marco Melvin PA Work Phone: [phone] [address] 10-14-2024 18:26-0400 Body height 157.48 cm Marco Melvin PA Work Phone: 3(190)392-710926 [place] [address] 10-14-2024 18:26-0400 Body mass index (BMI) [Ratio] 33.9 kg/m2 Marco Melvin PA Work Phone: 2(448)725-924226 [place] [address] 10-14-2024 18:26-0400 Body weight 84.09 kg Marco Melvin PA Work Phone: [facility] 10-13-2024 09:42-0400 Diastolic blood pressure 64 mm[Hg] Barak Covarrubias MD Work Phone: [facility] 10-13-2024 09:42-0400 Heart rate 90 /min Barak Covarrubias MD Work Phone: [facility] 10-13-2024 09:42-0400 SaO2% (BldA) [Mass fraction] 100 % Barak Covarrubias MD Work Phone: [facility] 10-13-2024 09:42-0400 Systolic blood pressure 103 mm[Hg] Barak Covarrubias MD Work Phone: [facility] 10-13-2024 06:25-0400 Body mass index (BMI) [Ratio] 34.4 kg/m2 Barak Covarrubias MD Work Phone: [facility] 10-13-2024 06:25-0400 Body weight 85.32 kg Barak Covarrubias MD Work Phone: [facility] 10-13-2024 05:31-0400 Body temperature 98.01 [degF] Barak Covarrubias MD Work Phone: [facility] 10-13-2024 05:31-0400 Respiratory rate 17 /min Barak Covarrubias MD Work Phone: [facility] 10-12-2024 03:37-0400 Body height 157.5 cm Barak Covarrubias MD Work Phone: [facility] 10-12-2024 01:59-0400 Body temperature 98.2 [degF] Marco Melvin PA Work Phone: [facility] 10-12-2024 01:59-0400 Diastolic blood pressure 73 mm[Hg] Marco Melvin PA Work Phone: [facility] 10-12-2024 01:59-0400 Heart rate 94 /min Marco Melvin PA Work Phone: [facility] 10-12-2024 01:59-0400 Respiratory rate 21 /min Marco Melvin PA Work Phone: [facility] 10-12-2024 01:59-0400 SaO2% (BldA) [Mass fraction] 96 % Marco Melvin PA Work Phone: [facility] 10-12-2024 01:59-0400 Systolic blood pressure 110 mm[Hg] Marco Melvin PA Work Phone: [facility] 10-11-2024 20:53-0400 Body height 157.48 cm Marco Melvin PA Work Phone: [facility] 10-11-2024 20:53-0400 Body mass index (BMI) [Ratio] 34.2 kg/m2 Marco Melvin PA Work Phone: [facility] 10-11-2024 20:53-0400 Body weight 84.82 kg Marco Melvin PA Work Phone: [facility] 06-19-2024 09:41-0500 Body mass index (BMI) [Ratio] 32.1 kg/m2 Marco Melvin PA Work Phone: [facility] 06-19-2024 09:41-0500 Body weight 79.83 kg Marco Melvin PA Work Phone: 2(200)542-532026 [place] [address] 06-19-2024 09:41-0500 Diastolic blood pressure 79 mm[Hg] Marco Melvin PA Work Phone: [facility] 06-19-2024 09:41-0500 Systolic blood pressure 119 mm[Hg] Marco Melvin PA Work Phone: [facility] 03-17-2024 08:30-0400 Body temperature 98.01 [degF] Rand Hallman MD Work Phone: [facility] 03-17-2024 08:30-0400 Diastolic blood pressure 74 mm[Hg] Rand Hallman MD Work Phone: [facility] 03-17-2024 08:30-0400 Heart rate 86 /min Rand Hallman MD Work Phone: [facility] 03-17-2024 08:30-0400 Respiratory rate 16 /min Rand Hallman MD Work Phone: [facility] [employer] 03-17-2024 08:30-0400 SaO2% (BldA) [Mass fraction] 99 % Rand Hallman MD Work Phone: [facility] [employer] 03-17-2024 08:30-0400 Systolic blood pressure 109 mm[Hg] Rand Hallman MD Work Phone: [facility] [employer] 03-10-2024 07:30-0400 Body height 157.5 cm Rand Hallman MD Work Phone: [facility] [employer] 03-06-2024 16:49-0400 Body mass index (BMI) [Ratio] 34.39 kg/m2 Rand Hallman MD Work Phone: [facility] [employer] 03-06-2024 16:49-0400 Body weight 85.28 kg Rand Hallman MD Work Phone: [facility] [employer] 01-18-2024 15:39-0400 Body height 156.84 cm Natalie Hopkins MA [facility], [facility].; [employer] [facility], [facility]. 01-18-2024 15:39-0400 Body mass index (BMI) [Ratio] 35.22 kg/m2 Natalie Hopkins MA [facility], [facility].; [facility], [facility]. 01-18-2024 15:39-0400 Body surface area Derived from formula 1.87 m2 Natalie Hopkins MA [facility], [facility].; [employer] [facility]. 01-18-2024 15:39-0400 Body weight 86.64 kg Natalie Hopkins MA [facility].; [employer] [facility]. 01-18-2024 15:39-0400 Diastolic blood pressure 75 mm[Hg] Natalie Hopkins MA [facility], [facility].; [employer] [facility]. Comment on above: Patient Position: Sitting; Cuff Location : Left Arm; Cuff Size: Standard 01-18-2024 15:39-0400 Heart rate 96 /min Natalie Hopkins MA [facility], [facility].; [employer]. Comment on above: Pattern: Regular 01-18-2024 15:39-0400 Systolic blood pressure 112 mm[Hg] Natalie Hopkins MA [facility] Comment on above: Patient Position: Sitting; Cuff Location : Left Arm; Cuff Size: Standard 10-25-2023 08:23-0400 Body height 157.48 cm PA Marco Melvin Work Phone: [facility] 10-25-2023 08:23-0400 Body mass index (BMI) [Ratio] 32.9 kg/m2 PA Marco Melvin Work Phone: 7(630)196-562126 [place] [address] 10-25-2023 08:23-0400 Body weight 81.64 kg PA Marco Melvin Work Phone: 8(477)531-094821 [place] [address] 10-25-2023 08:23-0400 Diastolic blood pressure 84 mm[Hg] PA Marco Melvin Work Phone: 4(767)758-018026 [place] [address] 10-25-2023 08:23-0400 Systolic blood pressure 118 mm[Hg] PA Marco Melvin Work Phone: 7(451)329-656613 [address] 10-12-2023 14:55-0400 Body mass index (BMI) [Ratio] 32.4 kg/m2 PA Marco Melvin Work Phone: 6(359)208-735226 [place] [address] 10-12-2023 14:55-0400 Body weight 80.51 kg PA Marco Melvin Work Phone: 3(953)110-939526 [place] [address] 10-12-2023 14:55-0400 Diastolic blood pressure 85 mm[Hg] PA Marco Melvin Work Phone: 1(947)835-227513 [address] 10-12-2023 14:55-0400 Systolic blood pressure 118 mm[Hg] PA Marco Melvin Work Phone: 0(559)773-060126 [place] [address] 09-19-2023 16:39-0400 Body temperature 97.6 [degF] PA Marco Melvin Work Phone: 4(558)009-194926 [place] [address] 09-19-2023 16:39-0400 Diastolic blood pressure 82 mm[Hg] PA Marco Melvin Work Phone: [facility] 09-19-2023 16:39-0400 Heart rate 76 /min PA Marco Melvin Work Phone: [facility] 09-19-2023 16:39-0400 Respiratory rate 15 /min PA Marco Melvin Work Phone: [facility] 09-19-2023 16:39-0400 SaO2% (BldA) [Mass fraction] 99 % PA Marco Melvin Work Phone: [facility] 09-19-2023 16:39-0400 Systolic blood pressure 129 mm[Hg] PA Marco Melvin Work Phone: 3(860)871-793326 [place] [address] 09-19-2023 12:14-0400 Body height 157.48 cm PA Marco Melvin Work Phone: 1(209)095-078426 [place] [address] 09-19-2023 12:14-0400 Body mass index (BMI) [Ratio] 31.1 kg/m2 PA Marco Melvin Work Phone: 7(643)687-946226 [place] [address] 09-19-2023 12:14-0400 Body weight 77.11 kg PA Marco Melvin Work Phone: 9(093)648-701926 [place] [address] 09-08-2023 13:11-0500 Body height 157.48 cm PA Marco Melvin Work Phone: [facility] 09-08-2023 13:10-0500 Body mass index (BMI) [Ratio] 31.4 kg/m2 PA Marco Melvin Work Phone: [facility] 09-08-2023 13:10-0500 Body weight 78.01 kg PA Marco Melvin Work Phone: [facility] 09-08-2023 13:10-0500 Diastolic blood pressure 88 mm[Hg] PA Marco Melvin Work Phone: [facility] 09-08-2023 13:10-0500 Systolic blood pressure 123 mm[Hg] PA Marco Melvin Work Phone: [facility] 02-15-2023 15:45-0400 Body height 156.84 cm Chelsea [employer] [facility], [facility].; [facility]. 02-15-2023 15:45-0400 Body mass index (BMI) [Ratio] 28.6 kg/m2 Chelsea Paez MA [facility].; [facility]. 02-15-2023 15:45-0400 Body surface area Derived from formula 1.71 m2 Chelsea [facility].; [facility] 02-15-2023 15:45-0400 Body weight 70.36 kg Chelsea Paez MA [facility].; [facility] 02-15-2023 15:45-0400 Diastolic blood pressure 79 mm[Hg] Chelsea [facility].; [facility]. Comment on above: Patient Position: Sitting; Cuff Location : Left Arm; Cuff Size: Standard 02-15-2023 15:45-0400 Heart rate 87 /min Chelsea [facility]ae[facility].; [facility]. Comment on above: Pattern: Regular 02-15-2023 15:45-0400 Systolic blood pressure 120 mm[Hg] Chelsea Paez MA [facility].; [facility]. Comment on above: Patient Position: Sitting; Cuff Location : Left Arm; Cuff Size: Standard 12-14-2022 11:30-0400 Body height 157.48 cm PA Marco Melvin Work Phone: [facility] 12-14-2022 11:28-0400 Body mass index (BMI) [Ratio] 28.3 kg/m2 PA Marco Melvin Work Phone: [facility] 12-14-2022 11:28-0400 Body weight 70.36 kg PA Marco Melvin Work Phone: [facility] 12-14-2022 11:28-0400 Diastolic blood pressure 84 mm[Hg] PA Marco Melvin Work Phone: [facility] 12-14-2022 11:28-0400 Systolic blood pressure 129 mm[Hg] PA Marco Melvin Work Phone: 1(381)284-702226 [place] [address] 12-02-2022 14:26-0400 Body temperature 97.7 [degF] PA Marco Melvin Work Phone: 9(922)297-330826 [place] [address] 12-02-2022 14:26-0400 Diastolic blood pressure 79 mm[Hg] PA Marco Melvin Work Phone: 6(420)673-071121 [place] [address] 12-02-2022 14:26-0400 Heart rate 76 /min PA Marco Melvin Work Phone: 2(449)081-030621 [place] [address] 12-02-2022 14:26-0400 Respiratory rate 16 /min PA Marco Melvin Work Phone: 3(088)812-436921 [place] [address] 12-02-2022 14:26-0400 SaO2% (BldA) [Mass fraction] 97 % PA Marco Melvin Work Phone: 9(539)344-373821 [place] [address] 12-02-2022 14:26-0400 Systolic blood pressure 115 mm[Hg] PA Marco Melvin Work Phone: 3(490)844-361621 [place] [address] 12-02-2022 09:12-0400 Body height 157.48 cm PA Marco Melvin Work Phone: 8(059)351-940621 [place] [address] 12-02-2022 09:12-0400 Body mass index (BMI) [Ratio] 28.1 kg/m2 PA Marco Melvin Work Phone: 6(908)584-347221 [place] [address] 12-02-2022 09:12-0400 Body weight 69.85 kg PA Marco Melvin Work Phone: 2(896)003-834321 [place] [address] 11-09-2022 11:22-0400 Body mass index (BMI) [Ratio] 28.5 kg/m2 PA Marco Melvin Work Phone: 4(561)579-396721 [place] [address] 11-09-2022 11:22-0400 Body weight 70.93 kg PA Marco Melvin Work Phone: 4(451)873-709121 [place] [address] 11-09-2022 11:22-0400 Diastolic blood pressure 76 mm[Hg] PA Marco Melvin Work Phone: 4(386)550-567821 [place] [address] 11-09-2022 11:22-0400 Systolic blood pressure 116 mm[Hg] PA Marco Melvin Work Phone: [facility] 10-14-2022 14:43-0400 Body mass index (BMI) [Ratio] 28.8 kg/m2 PA Marco Melvin Work Phone: [facility] 10-14-2022 14:43-0400 Body weight 71.44 kg PA Marco Melvin Work Phone: [facility] 10-14-2022 14:43-0400 Diastolic blood pressure 77 mm[Hg] PA Marco Melvin Work Phone: [facility] 10-14-2022 14:43-0400 Systolic blood pressure 114 mm[Hg] PA Marco Melvin Work Phone: [facility] 09-27-2022 15:56-0400 Body temperature 99.9 [degF] Chin Edge LPN [facility], [facility]. 09-27-2022 15:56-0400 Body weight 73.94 kg Chin Edge LPN [facility], [facility].; [facility], [facility]. 09-27-2022 15:56-0400 Diastolic blood pressure 86 mm[Hg] Chin Edge LPN [facility], [facility].; [facility] Comment on above: Patient Position: Sitting; Cuff Location : Left Arm; Cuff Size: Standard 09-27-2022 15:56-0400 Heart rate 106 /min Chin Edge LPN [facility] [place] [employer] [facility] Comment on above: Pattern: Regular 09-27-2022 15:56-0400 Systolic blood pressure 120 mm[Hg] Chin Edge LPN [facility], [facility]. Comment on above: Patient Position: Sitting; Cuff Location : Left Arm; Cuff Size: Standard 08-05-2022 10:09-0500 Body height 156.84 cm Nandini Fisher RN [facility], [facility].; [facility] 08-05-2022 10:09-0500 Body mass index (BMI) [Ratio] 30.24 kg/m2 Nandini Fisher RN [facility].; [facility]. 08-05-2022 10:090500 Body surface area Derived from formula 1.75 m2 Nandini Fisher RN [facility].; [facility]. 08-05-2022 10:090500 Body temperature 99.8 [degF] Nandini Fisher RN [facility].; [employer]. Comment on above: Method: Tympanic 08-05-2022 10:090500 Body weight 74.39 kg Nandini Fisher RN [facility].; [place] [employer] [facility]. 08-05-2022 10:09-0500 Diastolic blood pressure 72 mm[Hg] Nandini Fisher RN [facility].; [employer] [facility]. Comment on above: Patient Position: Sitting; Cuff Location : Left Arm; Cuff Size: Standard 08-05-2022 10:09-0500 Heart rate 94 /min Nandini Fisher RN [facility].; [place] [employer] [facility]. Comment on above: Pattern: Regular 08-05-2022 10:09-0500 Systolic blood pressure 108 mm[Hg] Nandini Fisher RN [facility].; [place] [employer] [facility]. Comment on above: Patient Position: Sitting; Cuff Location : Left Arm; Cuff Size: Standard 05-12-2022 16:19-0500 Body height 156.84 cm Maryellen Reyes LPN [facility].; [place] [employer] [facility]. 05-12-2022 16:19-0500 Body mass index (BMI) [Ratio] 30.05 kg/m2 Maryellen Reyes LPN [facility].; [place] [employer] [facility], [facility]. 05-12-2022 16:19-0500 Body surface area Derived from formula 1.75 m2 Maryellen Reyes LPN [facility].; [employer] [facility]. 05-12-2022 16:190500 Body temperature 98.5 [degF] Maryellen Reyes LPN [facility], [facility].; [facility] Comment on above: Method: Tympanic 05-12-2022 16:19-0500 Body weight 73.94 kg Maryellen Reyes LPN [facility], [facility].; [facility] 05-12-2022 16:19-0500 Diastolic blood pressure 87 mm[Hg] Maryellen Reyes LPN [facility], [facility].; [place] [employer] Comment on above: Patient Position: Sitting; Cuff Location : Left Arm; Cuff Size: Standard 05-12-2022 16:19-0500 Heart rate 92 /min Maryellen Reyes LPN [facility], [facility].; [facility] Comment on above: Pattern: Regular 05-12-2022 16:19-0500 Inhaled oxygen concentration 20 % Maryellen Reyes LPN [facility], [facility].; [place] [employer] Comment on above: Room air 05-12-2022 16:19-0500 Inhaled oxygen concentration 21 % Maryellen Reyes LPN [facility], [facility].; [place] [employer] Comment on above: Room air 05-12-2022 16:19-0500 SaO2% (BldA) [Mass fraction] 98 % Maryellen Reyes LPN [facility], [facility].; [place] [employer] [facility] 05-12-2022 16:19-0500 Systolic blood pressure 118 mm[Hg] Maryellen Reyes LPN [facility], [facility].; [place] [employer] Comment on above: Patient Position: Sitting; Cuff Location : Left Arm; Cuff Size: Standard 04-26-2022 10:40-0400 Body height 156.84 cm Maryellen Reyes LPN [facility], [facility].; [place] [employer] [facility], [facility]. 04-26-2022 10:40-0400 Body mass index (BMI) [Ratio] 30.05 kg/m2 Maryellen Reyes LPN [facility], [facility].; [place] [employer] [facility] 04-26-2022 10:40-0400 Body surface area Derived from formula 1.75 m2 Maryellen Reyes LPN [facility], [facility].; [place] [employer] [facility], [facility]. 04-26-2022 10:40-0400 Body weight 73.94 kg Maryellen Reyes LPN [facility], [facility].; [facility]. 04-26-2022 10:40-0400 Diastolic blood pressure 86 mm[Hg] Maryellen Reyes LPN [facility].; [facility], [facility]. Comment on above: Patient Position: Sitting; Cuff Location : Left Arm; Cuff Size: Standard 04-26-2022 10:40-0400 Heart rate 106 /min Maryellen Reyes LPN [facility], [facility].; [place] [employer] [facility]. Comment on above: Pattern: Regular 04-26-2022 10:40-0400 Inhaled oxygen concentration 20 % Maryellen Reyes LPN [facility].; [facility]. Comment on above: Room air 04-26-2022 10:40-0400 Inhaled oxygen concentration 21 % Maryellen Reyes LPN [facility], [facility].; [place] [employer] [facility]. Comment on above: Room air 04-26-2022 10:40-0400 SaO2% (BldA) [Mass fraction] 100 % Maryellen Reyes LPN [facility].; [place] [employer] [facility] [employer]. 04-26-2022 10:40-0400 Systolic blood pressure 122 mm[Hg] Maryellen Reyes LPN [facility].; [place] [employer] [facility], [employer]. Comment on above: Patient Position: Sitting; Cuff Location : Left Arm; Cuff Size: Standard 04-08-2022 22:05-0400 Respiratory rate 14 /min [facility] Work Phone: 04-08-2022 17:52-0400 Body temperature 97.4 [degF] [facility] Work Phone: 04-08-2022 17:52-0400 Diastolic blood pressure 95 mm[Hg] [facility] Work Phone: 04-08-2022 17:52-0400 Heart rate 105 /min [facility] Work Phone: 04-08-2022 17:52-0400 SaO2% (BldA) [Mass fraction] 100 % [facility] Work Phone: 04-08-2022 17:52-0400 Systolic blood pressure 128 mm[Hg] [facility] Work Phone: 04-08-2022 17:49-0400 Body height 157.48 cm [facility] Work Phone: 04-08-2022 17:49-0400 Body mass index (BMI) [Ratio] 30.7 kg/m2 [facility] Work Phone: 04-08-2022 17:49-0400 Body weight 76.3 kg [facility] Work Phone: 02-07-2022 09:46-0400 Body height 156.84 cm Nandini Fisher RN [facility].; [employer]. 02-07-2022 09:46-0400 Body mass index (BMI) [Ratio] 29.5 kg/m2 Nandini Fisher RN [facility].; [employer]. 02-07-2022 09:46-0400 Body surface area Derived from formula 1.73 m2 Nandini Fisher RN [place] [employer] [facility].; [employer]. 02-07-2022 09:46-0400 Body temperature 99.2 [degF] Nandini Fisher RN [place] [employer] [facility].; [employer]. Comment on above: Method: Tympanic 02-07-2022 09:46-0400 Body weight 72.58 kg Nandini Fisher RN [place] [employer] [facility].; [employer]. 02-07-2022 09:46-0400 Diastolic blood pressure 74 mm[Hg] Nandini Fisher RN [place] [employer] [facility].; [employer]. Comment on above: Patient Position: Sitting; Cuff Location : Left Arm; Cuff Size: Standard 02-07-2022 09:46-0400 Heart rate 84 /min Nandini Fisher RN [place] [employer] [facility].; [employer]. Comment on above: Pattern: Regular 02-07-2022 09:46-0400 Inhaled oxygen concentration 20 % Nandini Fisher RN [facility], [facility].; [employer] [facility]. Comment on above: Room air 02-07-2022 09:46-0400 Inhaled oxygen concentration 21 % Nandini Fisher RN [facility], [facility].; [employer]. Comment on above: Room air 02-07-2022 09:46-0400 SaO2% (BldA) [Mass fraction] 99 % Nandini Fisher RN [facility].; [employer] [facility]. 02-07-2022 09:46-0400 Systolic blood pressure 112 mm[Hg] Nandini Fisher RN [facility].; [place] [employer] [facility], [employer]. Comment on above: Patient Position: Sitting; Cuff Location : Left Arm; Cuff Size: Standard 12-01-2021 15:44-0400 Body height 156.84 cm Maryellen Reyes LPN [facility], [facility].; [employer] [facility], [facility]. 12-01-2021 15:44-0400 Body mass index (BMI) [Ratio] 29.13 kg/m2 Maryellen Reyes LPN [facility], [facility].; [place] [employer] [facility], [facility]. 12-01-2021 15:44-0400 Body surface area Derived from formula 1.72 m2 Maryellen Reyes LPN [facility], [facility].; [employer] [facility], [facility]. 12-01-2021 15:44-0400 Body weight 71.67 kg Maryellen Reyes LPN [facility], [facility].; [employer] [facility], [facility]. 12-01-2021 15:44-0400 Diastolic blood pressure 79 mm[Hg] Maryellen Reyes LPN [facility], [facility].; [employer], [employer]. Comment on above: Patient Position: Sitting; Cuff Location : Left Arm; Cuff Size: Standard 12-01-2021 15:44-0400 Heart rate 75 /min Maryellen Reyse LPN [facility], [facility].; [employer]. Comment on above: Pattern: Regular 12-01-2021 15:44-0400 Systolic blood pressure 113 mm[Hg] Maryellen Reyes LPN [facility], [facility].; [employer] [facility] [facility], [employer]. Comment on above: Patient Position: Sitting; Cuff Location : Left Arm; Cuff Size: Standard 08-03-2021 16:09-0500 Body height 156.84 cm Maryellen Reyes LPN [facility] [place] [employer] [facility] 08-03-2021 16:09-0500 Body mass index (BMI) [Ratio] 27.47 kg/m2 Maryellen Reyes LPN [facility], [facility].; [place] [employer] [facility] 08-03-2021 16:09-0500 Body surface area Derived from formula 1.68 m2 Maryellen Reyes LPN [facility], [facility].; [place] [employer] [facility], [facility]. 08-03-2021 16:09-0500 Body weight 67.59 kg Maryellen Reyes LPN [facility], [facility].; [place] [employer] [facility], [facility]. 08-03-2021 16:09-0500 Diastolic blood pressure 88 mm[Hg] Maryellen Reyes LPN [facility], [facility].; [place] [employer], [employer]. Comment on above: Patient Position: Sitting; Cuff Location : Left Arm; Cuff Size: Standard 08-03-2021 16:09-0500 Heart rate 85 /min Maryellen Reyes LPN [facility], [facility].; [place] [employer] [facility], [employer]. Comment on above: Pattern: Regular 08-03-2021 16:09-0500 Systolic blood pressure 125 mm[Hg] Maryellen Reyes LPN [facility], [facility].; [place] [employer], [employer]. Comment on above: Patient Position: Sitting; Cuff Location : Left Arm; Cuff Size: Standard 05-13-2021 15:58-0500 Body height 156.84 cm Alysia Mar LPN [facility], [facility].; [place] [employer] [facility], [employer]. 05-13-2021 15:58-0500 Body mass index (BMI) [Ratio] 26.55 kg/m2 Alysia Mar LPN [facility], [facility].; [place] [employer] [facility] 05-13-2021 15:58-0500 Body surface area Derived from formula 1.66 m2 Alysia Mar LPN [facility], [facility].; [facility], [facility]. 05-13-2021 15:58-0500 Body temperature 99.2 [degF] Alysiamadelyn Mar [facility].; [facility], [facility]. Comment on above: Method: Tympanic 05-13-2021 15:58-0500 Body weight 65.32 kg Alysia Irisshai [facility], [facility].; [facility], [facility]. 05-13-2021 15:58-0500 Diastolic blood pressure 80 mm[Hg] Alysia Irisshai [facility], [facility]. Comment on above: Patient Position: Sitting; Cuff Location : Left Arm; Cuff Size: Standard 05-13-2021 15:58-0500 Heart rate 92 /min Alysia Terryshai [facility], [facility].; [facility], [facility]. Comment on above: Pattern: Regular 05-13-2021 15:58-0500 Systolic blood pressure 113 mm[Hg] Alysia Irisshai [facility], [facility].; [facility], [facility]. Comment on above: Patient Position: Sitting; Cuff Location : Left Arm; Cuff Size: Standard 04-26-2021 16:14-0400 Body height 156.84 cm Alysia Irisshai [facility], [facility].; [facility], [facility]. 04-26-2021 16:14-0400 Body mass index (BMI) [Ratio] 26.74 kg/m2 [facility], [facility].; [facility], [facility]. 04-26-2021 16:14-0400 Body surface area Derived from formula 1.66 m2 Alysiamadelyn Mar [facility], [facility].; [facility], [facility]. 04-26-2021 16:14-0400 Body weight 65.77 kg [facility], [facility].; [facility], [facility]. 04-26-2021 16:14-0400 Diastolic blood pressure 78 mm[Hg] Alysiamadelyn Mar [facility], [facility].; [place] [employer], [employer]. Comment on above: Patient Position: Sitting; Cuff Location : Left Arm; Cuff Size: Standard 04-26-2021 16:14-0400 Heart rate 106 /min Alysia Terryortiz AMEZQUITA [facility].; [employer]. Comment on above: Pattern: Regular 04-26-2021 16:14-0400 Systolic blood pressure 114 mm[Hg] Alysiamadelyn Mar BIA [facility].; [employer]. Comment on above: Patient Position: Sitting; Cuff Location : Left Arm; Cuff Size: Standard 01-31-2020 15:35-0400 Body height 156.84 cm Marco Melvin PA-C Work Phone: [facility] [employer]. 01-31-2020 15:35-0400 Body mass index (BMI) [Ratio] 26.55 kg/m2 Marco Melvin PA-C Work Phone: [employer]. 01-31-2020 15:35-0400 Body surface area Derived from formula 1.66 m2 Marco Melvin PA-C Work Phone: [employer]. 01-31-2020 15:35-0400 Body weight 65.32 kg Marco Melvin PA-C Work Phone: [employer]. 01-31-2020 15:35-0400 Diastolic blood pressure 74 mm[Hg] Marco Melvin PA-C Work Phone: [employer]. Comment on above: Patient Position: Sitting; Cuff Location : Left Arm; Cuff Size: Standard 01-31-2020 15:35-0400 Heart rate 80 /min Marco Melvin PA-C Work Phone: [employer].; [employer]. Comment on above: Pattern: Regular 01-31-2020 15:35-0400 Systolic blood pressure 107 mm[Hg] Marco Melvin PA-C Work Phone: [employer]. Comment on above: Patient Position: Sitting; Cuff Location : Left Arm; Cuff Size: Standard Encounters Encounter Date Encounter Type Care Provider Facility Start: 03-24-2025 End: 03-24-2025 ambulatory Marco Bean Facility:[facility] Start: 03-12-2025 End: 03-12-2025 ambulatory JOHN NAYLOR MD Facility:A Start: 03-10-2025 End: 03-10-2025 ambulatory JOHN NAYLOR MD Facility:A Start: 03-07-2025 End: 03-07-2025 ambulatory MARCO J MELVIN PA-C Facility:A Start: 03-06-2025 End: 03-06-[address] Julianna Newman DO [facility] Work Phone: Start: 03-06-2025 End: 03-06-[address] Julianna Newman DO [facility] Start: 03-06-2025 End: 03-06-2025 ambulatory Marco Melvin PA Work Phone: -[facility] Start: 02-28-2025 End: 02-28-2025 ambulatory MARCO J MELVIN PA-C Facility:A Start: 10-14-2024 End: 10-14-2024 Emergency department patient visit Marco Melvin PA Work Phone: -Emergency Department Work Phone: Start: 10-12-2024 End: 10-13-2024 Evaluation and management of inpatient Barak Covarrubias MD Work Phone: [facility] Medical Surgical Unit MSU H5 Comment on above: Ovarian hyperstimula tion syndrome (Primary Dx) Start: 10-11-2024 End: 10-12-2024 Emergency department patient visit Marco Melvin PA Work Phone: -Emergency Department Work Phone: Start: 10-07-2024 End: 10-07-2024 ambulatory MARCO J MELVIN PA-C Facility:A Start: 08-15-2024 End: 08-15-[address] Julianna Newman DO [facility] Work Phone: Start: 08-15-2024 End: 08-15-2024 ambulatory Julianna Newman Facility:[facility] Start: 06-19-2024 End: 06-19-2024 Patient encounter procedure Lilly REYES -Laboratory, Specimen Work Phone: Start: 06-19-2024 End: 06-19-2024 Patient encounter procedure Lilly REYES -[facility] Work Phone: Start: 06-19-2024 End: 06-19-2024 ambulatory Marco Melvin [place] Start: 06-19-2024 End: 06-19-2024 ambulatory Marco Melvin Facility:[facility] Start: 06-11-2024 ambulatory [facility] Facility:[facility] Start: 05-15-2024 End: 05-15-2024 ambulatory [facility] Start: 05-14-2024 End: 05-14-2024 ambulatory [facility] Start: 05-07-2024 End: 05-07-2024 ambulatory [facility] Start: 04-25-2024 End: 04-25-2024 ambulatory [facility] Start: 04-22-2024 ambulatory [facility] Facility:[facility] Start: 04-12-2024 ambulatory [facility] Facility:[facility] Start: 04-10-2024 End: 04-10-2024 Subsequent hospital visit by physician Lucila Ho DO Work Phone: [facility] Comment on above: History of gestation al diabetes Start: 04-10-2024 End: 04-10-2024 ambulatory LUCILA HO [facility] Start: 03-28-2024 End: 03-28-2024 ambulatory LUCILA HO [facility] Start: 03-06-2024 End: 03-17-2024 Evaluation and management of inpatient Rand Hallman MD Work Phone: [facility] Comment on above: S/P (Prima ry Dx); Anhydramnios in third trimester, single or unspecified fetus; Vaginal bleeding in , third trimester Start: 01-19-2024 End: 01-19-2024 ambulatory DENNY BAUER [facility] Start: 01-18-2024 End: 01-18-2024 Office outpatient visit 15 minutes Marco Melvin PA-C Work Phone: [facility] Start: 12-28-2023 End: 12-28-2023 ambulatory SAUMYA MANCIA [facility] Start: 12-12-2023 End: 12-12-2023 Telephone follow-up Marco Melvin PA-C Work Phone: [facility] Start: 10-25-2023 End: 10-25-2023 ambulatory PA Marco Melvin Work Phone: [facility] Work Phone: Start: 10-25-2023 End: 10-25-2023 Patient encounter procedure PA Marco Melvin Work Phone: [facility] Work Phone: Start: 10-12-2023 End: 10-12-2023 ambulatory PA Marco Melvin Work Phone: [facility] Work Phone: Start: 10-12-2023 End: 10-12-2023 Patient encounter procedure PA Marco Melvin Work Phone: [facility]-Laboratory, Specimen Work Phone: Start: 10-12-2023 End: 10-12-2023 Patient encounter procedure PA Marco Melvin Work Phone: [facility] Work Phone: Start: 09-29-2023 End: 09-29-2023 ambulatory PA Marco Melvin Work Phone: [facility] Work Phone: Start: 09-29-2023 End: 09-29-2023 Patient encounter procedure PA Marco Melvin Work Phone: [facility]-Ultrasound, [facility] Work Phone: Start: 09-22-2023 End: 09-22-2023 ambulatory PA Marco Melvin Work Phone: [facility] Work Phone: Start: 09-22-2023 End: 09-22-2023 Patient encounter procedure PA Marco Melvin Work Phone: [facility] Ultrasound Work Phone: Start: 09-19-2023 End: 09-19-2023 Emergency department patient visit PA Marco Melvin Work Phone: [facility]-Emergency Department Work Phone: Start: 09-15-2023 End: 09-15-2023 ambulatory PA Marco Melvin Work Phone: [facility] Work Phone: Start: 09-15-2023 End: 09-15-2023 Patient encounter procedure PA Marco Melvin Work Phone: [facility]-Laboratory Work Phone: Start: 09-13-2023 End: 09-13-2023 ambulatory PA Marco Melvin Work Phone: [facility] Work Phone: Start: 09-13-2023 End: 09-13-2023 Patient encounter procedure PA Marco Melvin Work Phone: [facility]-Laboratory Work Phone: Start: 2023 End: 2023 ambulatory PA Marco Melvin Work Phone: [facility] Work Phone: Start: 2023 End: 2023 Patient encounter procedure PA Marco Melvin Work Phone: [facility]-Laboratory Work Phone: Start: 09-08-2023 End: 09-08-2023 Patient encounter procedure PA Marco Melvin Work Phone: [facility] Work Phone: Start: 09-06-2023 End: 09-06-2023 ambulatory PA Marco Melvin Work Phone: [facility] Work Phone: Start: 09-06-2023 End: 09-06-2023 Patient encounter procedure PA Marco Melvin Work Phone: [facility]-Laboratory Work Phone: Start: 08-25-2023 End: 08-25-2023 ambulatory [facility] Work Phone: Start: 08-25-2023 End: 08-25-2023 Patient encounter procedure Jacey Comm [facility] Work Phone: Start: 08-23-2023 End: 08-23-2023 Patient encounter procedure [facility] Work Phone: Start: 08-21-2023 End: 08-21-2023 ambulatory [facility] Work Phone: Start: 08-21-2023 End: 08-21-2023 Patient encounter procedure Jacey Comm [facility] Work Phone: Start: 08-15-2023 End: 08-15-2023 ambulatory [facility] Work Phone: Start: 08-15-2023 End: 08-15-2023 Patient encounter procedure Jacey Comm [facility] Work Phone: Start: 08-14-2023 End: 08-14-2023 ambulatory [facility] Start: 08-07-2023 End: 08-07-2023 Patient encounter procedure Jacey Comm [facility] Work Phone: Start: 08-05-2023 End: 08-05-2023 ambulatory [facility] Work Phone: Start: 08-05-2023 End: 08-05-2023 Patient encounter procedure [facility] Work Phone: Start: 08-03-2023 End: 08-03-2023 ambulatory [facility] Work Phone: Start: 08-03-2023 End: 08-03-2023 Patient encounter procedure [facility] Work Phone: Start: 07-29-2023 End: 07-29-2023 ambulatory [facility] Work Phone: Start: 07-29-2023 End: 07-29-2023 Patient encounter procedure [facility] Work Phone: Start: 05-03-2023 End: 05-03-2023 ambulatory [facility] Start: 03-07-2023 End: 03-07-2023 ambulatory PA Marco Melvin Work Phone: [facility] Work Phone: Start: 03-07-2023 End: 03-07-2023 Patient encounter procedure PA [facility] Start: 02-15-2023 End: 02-15-2023 Periodic preventive med est patient 18-39 yrs Marco Melvin PA-C Work Phone: [facility], [employer]. Start: 02-15-2023 End: 02-15-2023 Physical examination Marco Melvin PA-C Work Phone: [facility] Start: 01-20-2023 End: 01-20-2023 Patient encounter procedure PA [facility]vin Work [facility]: Start: 12-14-2022 End: 12-14-2022 Patient encounter procedure PA Marco Melvin Work Phone: [facility] Work Phone: Start: 12-02-2022 Non-patient / Non-visit PA Melonie ecca Melvin Work Phone: [facility] Start: 12-02-2022 End: 12-02-2022 Admission to same day surgery center PA Marco Melvin Work Phone: [facility] Start: 12-02-2022 End: 12-02-2022 ambulatory PA Marco Melvin Work Phone: [facility] Work Phone: Start: 11-09-2022 End: 11-09-2022 Patient encounter procedure PA Marco Melvin Work Phone: [facility] Start: 10-19-2022 End: 10-19-2022 Patient encounter procedure PA Marco Melvin Work Phone: [facility] Start: 10-14-2022 End: 10-14-2022 Patient encounter procedure PA Marco Melvin Work Phone: [facility] Start: 10-14-2022 End: 10-14-2022 Patient encounter procedure PA Marco Melvin Work Phone: [facility] Start: 09-27-2022 End: 09-27-2022 Office outpatient visit 15 minutes Marco Melvin PA-C Work Phone: [facility] Start: 08-05-2022 End: 08-05-2022 Office outpatient visit 15 minutes Marco Melvin PA-C Work Phone: [employer] Start: 05-12-2022 End: 05-12-2022 Office outpatient visit 15 minutes Marco Melvin PA-C Work Phone: [employer] Start: 04-26-2022 End: 04-26-2022 Office outpatient visit 25 minutes Marco Melvin PA-C Work Phone: [employer] Start: 04-12-2022 End: 04-12-2022 Telephone follow-up Marco Melvin PA-C Work Phone: [employer] Start: 04-08-2022 End: 04-08-2022 Emergency department patient visit [facility]-Emergency Department Start: 04-08-2022 Telephone encounter Hodan Ch yessenia OVALLECNM Work Phone: OB/Gynecology Comment on above: Heavy Bleeding Start: 02-07-2022 End: 02-07-2022 Office outpatient visit 15 minutes Marco Melvin PA-C Work Phone: [employer] Start: 12-01-2021 End: 12-01-2021 Office outpatient visit 15 minutes Marco Melvin PA-C Work Phone: [employer] Start: 08-03-2021 End: 08-03-2021 Office outpatient visit 15 minutes Marco Melvin PA-C Work Phone: [employer] Start: 05-13-2021 End: 05-13-2021 Office outpatient visit 15 minutes Marco Melvin PA-C Work Phone: [employer] Start: 04-26-2021 End: 04-26-2021 Office outpatient visit 15 minutes Marco Mlevin PA-C Work Phone: [employer] Start: 02-27-2020 End: 02-27-2020 Patient encounter procedure Marco Melvin PA-C Work Phone: [employer] Start: 01-31-2020 End: 01-31-2020 Office outpatient new 30 minutes Marco Melvin PA-C Work Phone: [employer] Procedures Date Procedure Procedure Detail Performing Clinician [...] te st gtt 3 specimens Lucila Ho DO Work Phone: Start: 03-17-2024 Glucose quantitative blood [...] Phone: Start: 03-15-2024 OXYGEN THERAPY Carolyn madrid APRN - REMOTE SENSING SCIENTIST Work Phone: Start: 03-15-2024 Glucose quantitative blood [...] Phone: Start: 03-14-2024 End: 03-14-2024 delivery only Anuan T Gordillo D O Work Phone: Start: 03-14-2024 Glucose quantitative blood xcpt reagent strip Rand Hallman MD Work Phone: Start: 03-14-2024 Us preg uterus real time f/u trnsabdl per fetus Juliana Nguyen DO Work Phone: Start: 03-14-2024 Glucose quantitative blood xcpt reagent strip Rand Hallman MD Work Phone: Start: 03-14-2024 Antibody screen BARAK MITCH Comment on above: Performed By: #### L [id number] ####Insurance Sales Specialist: GYPSY DAY ([phone])[facility] ([facility])[address] [place] [address] Start: 03-14-2024 Blood typing serolog ic rh [...] on above: Performed By: #### L [id number] ####Insurance Sales Specialist: GYPSY DAY ([phone])[facility] ([address] [place] [address] [facility] Start: 03-10-2024 Blood typing serologic abo Rand [...] valid specimen Performed By: #### L [id number] ####Insurance Sales Specialist: GYPSY DAY ([phone])[facility] ([address] Start: 03-06-2024 Blood count complete automated Dali Hall MD Work Phone: Start: 03-06-2024 Blood typing serologic abo Dali Hall MD Work Phone: Start: 03-06-2024 Adult depression scr eening assessment Rand Hallman MD Work Phone: Start: 10-25-2023 Urine culture PA Mamta Melvin Work Phone: Start: 09-29-2023 Transvaginal obstetr ic ultrasonography CHERYL Melvin Work Phone: Start: 09-22-2023 Transvaginal obstetr ic ultrasonography CHERYL Melvin Work Phone: Start: 03-19-2024 Transvaginal obstetr ic ultrasonography PA Marco Melvin Work Phone: Start: 02-15-2023 End: 02-14-2023 Depression screening Marco Melvin PA-C Work Phone: Start: 02-15-2023 End: 02-14-2023 Scr dep neg, no plan reqd Marco Melvin PA-C Work Phone: Start: 12-02-2022 Laparoscopy CHERYL Melvin Work Phone: Start: 10-19-2022 US scan of thyroid CHERYL Melvin Work Phone: H/O: section S/P Cece Hallman MD Work Phone: Plan of Treatment Date Care Activity Detail Author Start: 2072 RSV Immunization for Adults (1 - 1-dose 75+ series) RSV Immunization for Adults (1 - 1-dose 75+ series) [facility] Start: 09-12-2047 Zoster Vaccines (1 of 2) Zoste r Vaccines (1 of 2) [facility] Start: 02-27-2034 DTaP/Tdap/Td Vaccine s (9 - Td or Tdap) DTaP/Tdap/Td Vaccines (9 - Td or Tdap) [facility] Start: 03-06-2025 Depression Screening Depression Scre ening [facility] Start: 03-03-2025 Influenza vaccination Influenz a Vaccine (Season Ended) [facility] Start: 10-14-2024 End: 10-14-2024 [facility] Start: 10-14-2024 Bacteria identified in Urine by Culture Urine Culture [facility] Start: 10-11-2024 [facility] Start: 10-11-2024 Removal of urinary catheter [facility] Start: 09-03-2024 Depression Monitoring Depression Mon sofie [facility] Start: 06-19-2024 Patient referral [facility] Work Phone: Start: 05-03-2024 Diabetes mellitus screening Diabetes Screening [facility] Start: 04-25-2024 End: 04-25-2024 Patient encounter procedure 04/25/2024 10:00 AM EDT Office Visit [facility] [address] [place] [address] Julianna Ferraro, TELESALES PROFESSIONAL-INTERVENTIONIST [place], [place] [id number] 4 WEEKS POST [facility] Comment on above: 4 WEEKS POST Start: 03-23-2024 RSV Immunization age d 60 or older (1 - Risk 1-dose series) RSV Immunization aged 60 or older (1 - Risk 1-dose series) [facility] Start: 03-03-2024 COVID-19 (2023-2 5 season) COVID-19 ( season) [facility] Start: 03-03-2024 COVID-19 Vaccine ( season) COVID-19 Vaccine ( season) [facility] Start: 03-03-2024 FLU (#1) FLU (#1) [facility] Start: 03-03-2024 Influenza vaccination Influenza Vacc ine (#1) [facility] Start: 09-19-2023 [facility] Start: 09-19-2023 Transvaginal obstetr ic ultrasonography [facility] Start: 12-02-2022 Anesthesia intraperitoneal lower abd w/laps nos ANESTH SURG LOWER ABDOMEN [facility] Start: 12-02-[address] w/materials REOPEN FALLOPIAN TUBE [facility] Start: 12-02-2022 Laps abd prtm&omentu m dx w/wo spec br/wa spx DIAG LAPARO SEPARATE PROC [facility] Start: 12-02-2022 Ambulation without limitation [facility] Start: 12-02-2022 Medical regimen orde rs management [facility] Start: 12-02-2022 Medication education [facility] Start: 12-02-2022 Patient discharge [facility] Start: 12-02-2022 Procedure discontinued [facility] Start: 12-02-2022 Taking patient vital signs [facility] Start: 12-02-2022 Vital signs measurements [facility] Start: 12-02-2022 [facility] Start: 12-02-2022 Admission procedure [facility] Start: 03-03-2022 Influenza vaccination INFLUENZA (#1) [facility] Start: 10-17-2021 PAP TESTING PAP TESTING [facility] Start: 07-03-2021 DEPRESSION ASSESSMENT DEPRESSION ASS ESSMENT [facility] Start: 04-02-2021 COVID-19 Vaccine (3 - Moderna risk series) COVID-19 Vaccine (3 - Moderna risk series) [facility] Start: 03-01-2020 Urine microalbumin profile DTAP,TDAP,TD (5 - Td or Tdap) [facility] Start: 2018 Microscopic observat ion [Identifier] in Cervix by Cyto stain Pap Smear [facility] Start: 2018 Screening for malign ant neoplasm of cervix Pap Smear [facility] Start: 2016 Hepatitis B (1 of 3 - 19+ 3-dose series) Hepatitis B (1 of 3 - 19+ 3-dose series) [facility] Start: 2016 Pneumococcal Vaccine : Pediatrics (0 to 5 Years) and At-Risk Patients (6 to 49 Years) (1 of 2 - PCV) Pneumococcal Vaccine: Pediatrics (0 to 5 Years) and At-Risk Patients (6 to 49 Years) (1 of 2 - PCV) [facility] Start: 2016 Zoster Vaccines (1 of 2) Zoste r Vaccines (1 of 2) [facility] Start: 09-12-2015 HEPATITIS C SCREENING [facility]IT[facility] Start: 09-12-2015 Hepatitis C screening Hepatitis C [facility] Start: 09-12-2015 HIV SCREENING HIV SCREENING [facility] Start: 2013 MenB (1 of 2 - MenB 2-Dose Series Bexsero) MenB (1 of 2 - MenB 2-Dose Series Bexsero) [facility] Start: 2012 HPV (1 - 3-dose series) HPV (1 - 3-d ose series) [facility] Start: 09-12-2011 PEDS TO ADULT TRANSI TION ANNUAL ASSESSMENT PEDS TO ADULT TRANSITION ANNUAL ASSESSMENT [facility] Start: 2010 Varicella (1 of 2 - 13+ 2-dose series) Varicella (1 of 2 - 13+ 2-dose series) [facility] Start: 2009 PEDS TO ADULT TRANSI TION INITIAL DISCUSSION PEDS TO ADULT TRANSITION INITIAL DISCUSSION [facility] Start: 09-12-2007 MENINGOCOCCAL B: Con monotype setter based on risk (1 of 2 - Risk Bexsero 2-dose series) MENINGOCOCCAL B: Consider based on risk (1 of 2 - Risk Bexsero 2-dose series) [facility] Start: 2004 Tetanus Diphtheria a nd Pertussis Vaccines (1 - Tdap) Tetanus Diphtheria and Pertussis Vaccines (1 - Tdap) [facility] Start: 1998 MMR (1 of 1 - Standa rd series) MMR (1 of 1 - Standard series) [facility] Start: 03-14-1998 COVID-19 VACCINE (#1) COVID-19 VACCI NE (#1) [facility] Start: 1997 Hemoglobin A1c/Hemoglobin.total in Blood HbA1c [facility] Start: 1997 HIV screening HIV Screening [facility] Start: 1997 Lipid panel Lipid Panel [facility] CBC W Auto Different ial panel - Blood [facility] Hemoglobin A1c/Hemoglobin.total in Blood [facility] Hepatitis B surface antigen measurement [facility] Hepatitis C antibody measurement [facility] HIV 1+2 Ab+HIV1 p24 Ag [Presence] in Serum or Plasma by Immunoassay [facility] Patient Education [facility] Work Phone: Patient referral [facility] Work Phone: End: 03-06-2024 POCT Fern Test [facility] Work Phone: Comment on above: Once (Lab) for 1 Occ urrences starting 03/06/2024 until 03/06/2024 Prolactin [Mass/volu me] in Serum or Plasma [facility] Rubella IgG measurement [facility] Treponema sp Ab [Presence] in Serum [facility] Urine culture [facility] Immunizations Immunization Date Immunization Notes Care Provider Alex javier 02-28-2024 tetanus toxoid, redu ashley diphtheria toxoid, and acellular pertussis vaccine, adsorbed Marco LUNA Work Phone: [facility] 03-28-2019 influenza virus vaccine, unspecified formulation Hodan Jacob APRN.CNM Work Phone: [facility] Work Phone: 04-15-2014 influenza, injectabl e, quadrivalent, contains preservative Hodan Jacob APRN.CNM Work Phone: [facility] 09-06-2010 human papilloma viru s vaccine, quadrivalent Hodan Jacob APRN.CNM Work Phone: [facility] Work Phone: 09-06-2010 Human Papillomavirus 9-valent vaccine Hodan Jacob APRN.CNM Work Phone: [facility] 06-07-2010 human papilloma viru s vaccine, quadrivalent Hodan Jacob APRN.CNM Work Phone: [facility] Work Phone: 06-07-2010 Human Papillomavirus 9-valent vaccine Hodan Jacob APRN.CNM Work Phone: [facility] 03-01-2010 human papilloma viru s vaccine, quadrivalent Hodan Jacob APRN.CNM Work Phone: [facility] Work Phone: 03-01-2010 Human Papillomavirus 9-valent vaccine Hodan Jacob APRN.CNM Work Phone: [facility] 03-01-2010 meningococcal polysaccharide (groups A, C, Y and W-135) diphtheria toxoid conjugate vaccine (MCV4P) Hodan Jacob APRN.CNM Work Phone: [facility] Work Phone: 03-01-2010 meningococcal polysaccharide vaccine (MPSV4) Hodan Jacob APRN.CNM Work Phone: [facility] 03-01-2010 tetanus toxoid, redu ashley diphtheria toxoid, and acellular pertussis vaccine, adsorbed Hodan Jacob TELESALES PROFESSIONAL.CNM Work Phone: [facility] Work Phone: 03-01-2010 varicella virus vaccine Raquel espinoza Jacob TELESALES PROFESSIONAL.CNM Work Phone: [facility] Work Phone: 02-02-2010 tetanus toxoid, redu ashley diphtheria toxoid, and acellular pertussis vaccine, adsorbed Hodan Jacob TELESALES PROFESSIONAL.CNM Work Phone: [facility] 11-04-2002 diphtheria, tetanus toxoids and acellular pertussis vaccine, 5 pertussis antigens Hodan Jacob TELESALES PROFESSIONAL.CNM Work Phone: [facility] 11-04-2002 diphtheria, tetanus toxoids and acellular pertussis vaccine, unspecified formulation Hodan Jacob APRN.CNM Work Phone: [facility] Work Phone: 11-04-2002 measles, mumps and rubella virus vaccine Hodan Jacob APRN.CNM Work Phone: [facility] Work Phone: 11-04-2002 measles, mumps, rubella, and varicella virus vaccine Hodan Jacob APRN.CNM Work Phone: [facility] 11-04-2002 poliovirus vaccine, inactivated Hodan Jacob APRN.CNM Work Phone: [facility] Work Phone: 10-22-1999 varicella virus vaccine Raquel Jacob TELESALES PROFESSIONAL.CNM Work Phone: [facility] 10-11-1999 varicella virus vaccine Raquel Jacob TELESALES PROFESSIONAL.CNM Work Phone: [facility] Work Phone: 06-07-1999 diphtheria, tetanus toxoids and acellular pertussis vaccine, 5 pertussis antigens Hodan Jacob APRN.CNM Work Phone: [facility] 10-26-1998 measles, mumps, rubella, and varicella virus vaccine Hodan Jacob APRN.CNM Work Phone: [facility] 10-21-1998 haemophilus influenz ae type b conjugate and Hepatitis B vaccine Hodanespinoza Jacob APRN.CNM Work Phone: [facility] Work Phone: 10-21-1998 haemophilus influenz ae type b vaccine, HbOC conjugate Hodanespinoza Jacob TELESALES PROFESSIONAL.CNM Work Phone: [facility] 10-21-1998 hepatitis B immune globulin Hodan Jacob APRN.CNM Work Phone: [facility] 10-21-1998 measles, mumps and rubella virus vaccine Hodan Jacob APRN.CNM Work Phone: [facility] Work Phone: 04-22-1998 diphtheria, tetanus toxoids and acellular pertussis vaccine, 5 pertussis antigens Hodan Jacob APRN.CNM Work Phone: [facility] 04-22-1998 haemophilus influenz ae type b vaccine, HbOC conjugate Hodan Jacob APRN.CNM Work Phone: [facility] 04-22-1998 poliovirus vaccine, inactivated Hodan Jacob TELESALES PROFESSIONAL.CNM Work Phone: [facility] 01-14-1998 diphtheria, tetanus toxoids and acellular pertussis vaccine, 5 pertussis antigens Hodan Jacob APRN.CNM Work Phone: [facility] 01-14-1998 haemophilus influenz ae type b vaccine, HbOC conjugate Hodan Jacob TELESALES PROFESSIONAL.CNM Work Phone: [facility] 01-14-1998 poliovirus vaccine, inactivated Hoadn Jacob TELESALES PROFESSIONAL.CNM Work Phone: [facility] 1997 diphtheria, tetanus toxoids and acellular pertussis vaccine, 5 pertussis antigens Hodan Jacob APRN.CNM Work Phone: [facility] 1997 haemophilus influenz ae type b conjugate and Hepatitis B vaccine Hodan Jacob TELESALES PROFESSIONAL.CNM Work Phone: [facility] Work Phone: 1997 haemophilus influenz ae type b vaccine, HbOC conjugate Hodan Jacob TELESALES PROFESSIONAL.CNM Work Phone: [facility] 1997 hepatitis B immune globulin Hodan Jacob TELESALES PROFESSIONAL.CNM Work Phone: [facility] 1997 poliovirus vaccine, inactivated Hodan Jacob TELESALES PROFESSIONAL.CNM Work Phone: [facility] 1997 hepatitis B immune globulin Hodan Jacob TELESALES PROFESSIONAL.CNM Work Phone: [facility] 1997 hepatitis B vaccine, pediatric or pediatric/adolescent dosage Hodan Jacob TELESALES PROFESSIONAL.CNM Work Phone: [facility] Work Phone: NEGATED: Highlighted row has not occurred!03-15-2024 measles, mumps and rubella virus vaccine Rand Hallman MD Work Phone: [facility] Comment on above: Deferred: No longer needed NEGATED: Highlighted row has not occurred!03-15-2024 tetanus toxoid, reduced diphtheria toxoid, and acellular pertussis vaccine, adsorbed Rand Hallman MD Work Phone: [facility] [employer] Comment on above: Deferred: No longer needed NEGATED: Highlighted row has not occurred!03-13-2024 influenza, injectable, madin bruce canine kidney, preservative free Rand Hallman MD Work Phone: [facility] [employer] Comment on above: Deferred: Patient Re fused - not now per pt Payers Date Payer Category Payer Unknown [id number] 2024 Self-pay [id number] 2023 Commercial Managed C [facility] - Mr. [employer] [id number] 2023 Unknown [id number] 2021 Unknown [id number]. 1.13.159. [id number] 2006 Unknown [id number] 1997 Unknown [id number] 2.16.840.1.785385.3.579. 2.651 1997 Unknown [id number] 2.16.840.1.064440.3.579. 2.651 1997 Unknown [id number] 2.16.840.1.777967.3.579. 2479 1997 Unknown [id number] 2.16.840.1.158854.3.579. 2479 1997 Unknown [id number] 2.16.840.1.098533.3.579. 2479 1997 Unknown [id number] 2.16.840.1.257682.3.579. 2479 1997 Unknown [id number] 2.16.840.1.081269.3.579. 2479 1997 Unknown [id number] 2.16.840.1.283021.3.579. 2479 1997 Unknown [id number] 2.16.840.1.831610.3.579. 2479 1997 Unknown [id number] 2.16.840.1.426806.3.579. 2.479 1997 Unknown [id number] 2.16.840.1.179567.3.579. 2.627 1997 Unknown [id number] 2.16.840.1.934532.3.579. 2.627 1997 Unknown [id number] 2.16.840.1.425474.3.579. 2.627 1997 Unknown [id number] 2.16.840.1.026784.3.579. 2.627 1997 Unknown [id number] 2.16840.1.830542.3.579. 2.627 Unknown [employer] [id number] Unknown [id number] 2.16840.1.874784.3.579. 2.462 Unknown [id number] 2.840.1.066734.3.579. 2.462 Unknown [id number] 2.840.1.787753.3.579. 2.462 Unknown [id number] 2.840.1.979431.3.579. 2.462 Unknown [id number] 2.16840.1.734363.3.579. 2.462 Unknown [id number] 2.16840.1.603308.3.579. 2.462 Unknown [id number] 2.840.1.164821.3.579. 2.462 Unknown [id number] 2.16840.1.380945.3.579. 2.462 Unknown [id number] 2840.1.313615.3.579. 2.462 Unknown [id number] 2840.1.235015.3.579. 2.462 Social History Date Type Detail Facility Start: 11-05-2018 End: 03-06-2024 Tobacco smoking status NHIS Never smoked tobacco [facility] Start: 11-05-2018 End: 03-06-2024 Tobacco use and exposure Smokeless tobacco non-user [facility] Start: 08-27-2021 Alcohol intake Current non-dr tube coverer of alcohol (finding) [facility] Start: 1997 Sex Assigned At Not on file [facility] Start: 04-08-2022 End: 10-12-2023 Tobacco smoking status COIS Unknown if ever smoked [facility] Start: 02-06-2020 [facility] Start: 1997 Sex Assigned At Female [facility] Tobacco Use: Tobacco Use: ; Current every day smoker. [employer] Smokes tobacco daily [employer] Work Phone: Start: 08-26-2023 [facility] Start: 03-06-2024 End: 10-12-2024 Alcoholic beverage intake Ex-drinker (finding) [facility] Start: 03-11-2024 End: 10-12-2024 History of Social function [facility] [employer] Start: 03-11-2024 End: 10-12-2024 [facility] [employer] [facility] [employer] Has the [facility], or water [employer] threatened to shut off services in your home in past 12Mo No [employer] (I/We) worried wheth er (my/our) food would run out before (I/we) got money to buy more. Never true [employer] In the past 12 month s, has lack of transportation kept you from medical appointments or from getting medications? No [facility] [employer] Start: 10-11-2024 End: 03-06-2025 Tobacco smoking status NHIS Ex-smoker (finding) [facility] Start: 10-12-2024 End: 10-14-2024 Sex Female (finding) [facility] How often to you hav e a drink containing alcohol? Never [facility] Do you feel stress - tense, restless, nervous, or anxious, or unable to sleep at night because your mind is troubled all the time - these days [OSQ] Only a little [employer] [employer] NEGATED: Highlighted row [facility] Medical Equipment Procedure Code Equipment Code Equipment [...] Assessment Result Facility 12-02-2022 Cognitive function Voice/Name [facility] Work Phone: Clinical Notes 09-13-2011 to 10-14-2024 Note Date & Type Note Facility 10-14-2024 Discharge summary [facility] 10-14-2024 Radiology Diagnostic study note [facility] Imaging Services [address] [place] [address] Abdomen Single View (Portable) MR#: [id number] Acct: [id number] Name: JOSE EDWARD Rep #: [id number] : 1995 F 29 From: Makenna Brown DO PCP: CHERYL Samano Status: PRE ER Study:Abdomen Single View (Portable) Date of Exam: 10/14/24 Exam# [id number] Ordering Dr: Anabella Akers PROCEDURE: ABDOMEN SINGLE [...] LUCY CC: CHERYL Weinstein; CHERYL Samano ~ Pony Rougher: Signed [facility] 10-14-2024 Discharge summary Note Date/Time October 14, 2024 9:46pm [facility] Medical Records Department [address] [place] [address] Emergency Department Summary 10/14/24 MR#: [id number] Acct: [id number] Name: JOSE EDWARD Rep #:[id number] : 1995 29 From: Soren Babcock MD PCP: CHERYL Samano Status:REG ER Location: ED HPI <CHERYL Weinstein - Last Filed: 10/14/24 21:43> History of Present Illness Chief Complaint: Abd Pain Narrative Narrative: 29-year-old female presents with abdominal pain. On 10/11/2024 she drove to [place], [place] to have egg retrieval at a fertility clinic. They did the procedure vaginally and punctured her bladder while retrieving some eggs. They prescribed Keflex and Pyridium. She drove home that same day and developed chest pain, shortness of breath, nausea and abdominal pain and had difficulty emptying her bladder. She was evaluated at [facility] on the same day 10/[address] scan of chest abdomen pelvis negative for PE. There were enlarged ovaries with numerous cysts and moderate volume ascites compatible with ovarian hyperstimulation syndrome. She also had a West placed for urinary retention. She was transferred to [facility] for definitive treatment. She statesthey attempted [...] Her West catheter was also removed yesterday. Shereena also prescribed Lovenox shots x 1 week. She presents because she had a low-grade temperature of 99 ?F and still having nausea and generalizedabdominal pain and is urinating frequent small amounts. The chest pain and shortness of breath are much better. [facility] <CHERYL Weinstein - Last Filed: 10/14/24 21:43> [facility] Medical History Abnormal uterine bleeding Conceived by [...] 02/28/24 Unknown R x (FreeStyle Lexi 2 [place]) flash glucose sensor (FreeStyle #1 ea 02/28/24 Unknown Rx Lexi 2 Sensor kit) PNV no.151-iron 27 mg-folic 800 1 cap PO DAILY 5 Unknown History mcg-omega3 260 pk-mpm-ruo-fish capsule ( Multi-DHA (with vitamin K)) cabergoline [...] Diabetes Uncle Diabetes Grandmother Diabetes Surgical History Boyce teeth extracted History of hysteroscopy Status post laparoscopy S/P D&C (status post dilation and curettage) Hx of lumpectomy History of tonsillectomy and adenoidectomy Social History adopted: No household members: spouse number of children: 0 current occupational status: employed current occupation: [employer] current occupational exposures/hazards: No pets and animals: Yes (Avoid litterbox) pets and animals: cat(s) and dog(s) history of recent travel: Yes ([facility]) out of state: Yes out of country: No sexually active: Yes Smoking Status: Former smoker Electronic Cigarette Use: with nicotine alcohol intake: never substance use type: does not use well-balanced diet: daily or most days caffeine: No eating out: 1-3 times/week during the past year weight has: increased > 10 lbs what type of physical activity do you participate in: none jessica/tenriism: Orthodoxy seatbelt use: always do you feel safe [...] <CHERYL Weinstein - Last Filed: 10/14/24 21:43> [facility] MDM Narrative Medical decision making narrative: Differential includes but not limited to: Urinary retention, UTI, intra-abdominal infection, ovarian hyperstimulation, constipation 29-year-old female had eggs retrieval 3 days ago and was told her bladder was punctured. Since then she has had nausea, abdominal pain constipation, and urinary issues. She was at [facility] the last few days and they terminated [...] % (Auto) 69.3 Lymph % (Auto) 21.9 [place] % (Auto) 6.5 Eos % (Auto) 1.6 [...] Sl. Cloudy Urine pH 7.0 Ur Specific [place] 1.015 Urine Protein 30 H Urine Glucose [...] X-Ray 10/14/24 21:24 IMPRESSION: CONSTIPATION. Reading Location: [facility] <Dr. Soren Babcock MD - Last Filed: 10/14/24 21:46> [facility] Narrative Medical decision making narrative: Differential includes but not limited to: Urinary retention, UTI, intra-abdominal infection, ovarian hyperstimulation, constipation 29-year-old female had eggs retrieval 3 days ago and was told her bladder was punctured. Since then she has had nausea, abdominal pain constipation, and urinary issues. She was at [facility] the last few days and they terminated [...] up at a CT was sent to [facility]. They attempted at that time a [...] % (Auto) 69.3 Lymph % (Auto) 21.9 [place] % (Auto) 6.5 Eos % (Auto) 1.6 [...] Sl. Cloudy Urine pH 7.0 Ur Specific [place] 1.015 Urine Protein 30 H Urine Glucose [...] X-Ray 10/14/24 21:24 IMPRESSION: CONSTIPATION. Reading [facility] Discharge Plan Triage Chief Complaint: Abd Pain ED Midlevel Provider: Anabella Malave ED Provider: Soren Babcock Dx/Rx/DC Orders Clinical Impression: Constipation, Abdominal pain, Ovarian hyperstimulation syndrome Instructions: Abdominal Pain, ED Constipation (Adult) Prescriptions: No Action omeprazole 20 mg tablet,delayed release (DR/EC) 20 mg PO DAILY (DME) FreeStyle Lexi 2 [place] Misc See Rx Instructions .Route Qty: 1 [...] you take magnesium citrate which is sold [id number]-[id number]. Drink plenty of water and Gatorade to avoid dehydration as this will cause a lot of bowel movements. You also could be having pain from the ovarian hyperstimulation syndrome which should get better over time. I recommend follow-up with your ASSIGNMENT CLERK. Print Language: Andorran Disposition Disposition: Home, Self Care What to do if you have Problems For any increased pain, shortness of breath, bleeding, nausea or vomiting, chestpain, or any unexpected problems, contact your Primary Care Provider. Call [facility] ([phone]) or report to the closest Emergency Room. Call 911 if necessary. 10/14/242145 <Electronically signed by Soren Babcock MD> Cosigner Signature (if applicable): 10/14/242142 <Electronically signed by Anabella LUNA> CC: CHERYL Samano ~ Signed [facility] Work Phone: 1(106) 920-670404-13-2025 NoteGyn Discharge Summary Patient Name: Jose Edward [...] Follow up in 1-2 weeks with primary ASSIGNMENT CLERK, Dr. Velarde. Discharge instructions reviewed and questions [...] up: 1 to 2 weeks with primary ASSIGNMENT CLERK Condition on discharge: good and stable Discharge Date: 10/13/24 Comments: Home care, Follow-up care, restrictions reviewed. Jade Carmona DO 10/13/2024, 11:44 [facility]04-13-2025 Hospital course Narrative* Jade Carmona DO - 10/13/2024 11:42 AM EDT Images from the original note were not included. Spinning Doffer Discharge Summary Patient Name: Jose Edward Patient [...] Follow up in 1-2 weeks with primary ASSIGNMENT CLERK, Dr. Velarde. Discharge instructions reviewed and questions [...] up: 1 to 2 weeks with primary ASSIGNMENT CLERK Condition on discharge: good and stable Discharge Date: 10/13/24 Comments: Home care, Follow-up care, restrictions reviewed. Jade Carmona DO 10/13/2024, 11:44 AM Cosigned by Gypsy Pelayo MD at 10/13/2024 12:56 PM EDT documented in this [facility]04-13-2025 History of Present illness Narrative* Jade Carmona DO - 10/13/2024 6:11 AM EDT Images from the original note were not included. HIM TECH Progress Note Date: 10/13/2024 Time: 6:11 AM [...] Jade Van Dijck, DO, 200 mg at 10/12/241999 polyethylene glycol [...] Problem: Ovarian hyperstimulation syndrome Please page the [facility] OBGYN Call RES group via [...] distended. Awaiting paracentesis today. documented in this [facility]04-13-2025 Plan of care note* Care Plan - [...] monitored and maintained or improved Outcome: [facility]ing [id number] Miscellaneous Notes* Care Plan - Lucinda Poe [...] or improved Outcome: Progressing documented in this [facility]04-12-2025 Plan of care note* Care Plan - [...] monitored and maintained or improved Outcome: Progressing [place] [id number] History and physical note* Jade Carmona, DO - 10/12/2024 5:56 AM EDT Images from the original note were not included. ASSIGNMENT CLERK H&P Patient Name: Jose Edward Patient : 1995 Room/Bed: [facility]/[address] Admission Date/Time: 10/12/2024 3:14 AM Primary Care Physician: Marco Melvin HPI: Jose Edward is a 29 y.o. female patient transferred from [facility] for concern for ovarian hyperstimulation syndrome. Patient recently had an egg retrieval in [place] 24 hours ago, she states that over [...] at her egg retrieval,they had to go "through my bladder", so [...] 1,000 mg, 1,000 mg, Oral, q8h, Jade Waldropk, DO docusate sodium (Colace) capsule 100 mg, [...] 4 mg Oral q8h PRN Jade Van Melissak, DO Or ondansetron (Zofran) injection 4 mg 4 mg IntraVENous q6h PRN Jade Van Dianak, DO polyethylene glycol (PEG) 3350 (Miralax) packet [...] (98.5 F) (Temporal) Resp 16 Ht 5' 2" (1.575 [...] abdominal distention, nausea -Patient was evaluated at [facility] initially and obtained imaging as stated below, imaging is available on PACS -CT A/P 10/11 no traumatic abdominal aortic injury or retroperitoneal hematoma, markedly enlarged ovaries with numerous ovarian cysts and moderate volume ascites, compatible with ovarian hyperstimulation - CTA 10/11 no traumatic thoracic aortic aneurysm or mediastinal hematoma ectasia of the main pulmonary artery seen in pulmonary hypertension -Patient transferred to [facility] for further management -CBC, CMP, [...] pain management -Avoid NSAIDs Please page the [facility] OBGYN Call RES group via [...] care as documented in the resident's note. [id number] Note Attestation signed by Malia Reina MD at 10/12/2024 10:19 PM Hospital Care (Independent): I independently saw and evaluated the patient. I agree with the findings and plan of care as documented in the resident's note. ASSIGNMENT CLERK H&P Patient Name: Jose Edward Patient : 1995 Room/Bed: 5110/5110 A Admission Date/Time: 10/12/2024 3:14 AM Primary Care Physician: Marco Melvin HPI: Jose Edward is a 29 y.o. female patient transferred from [facility] for concern for ovarian hyperstimulation syndrome. Patient recently had an egg retrieval in [place] 24 hours ago, she states that over [...] 17 g, Oral, Daily PRN, Jade Carmona, DO sodium chloride 0.9 % infusion, 5-250 [...] 1,000 mg 1,000 mg Oral q8h Jade Van Dianak, DO docusate sodium (Colace) capsule 100 mg 100 mg Oral BID Jade Van Dianak, DO lactated Ringer's infusion 100 mL/hr IntraVENous Continuous Jade Waldropk, DO 100 mL/hr at 10/12/24 0522 100 mL/hr at 10/12/24 0522 ondansetron ODT (Zofran-ODT) disintegrating tablet 4 mg 4 mg Oral q8h PRN Jade Waldropk, DO Or ondansetron (Zofran) injection 4 mg 4 mg IntraVENous q6h PRN Jade Waldropk, DO polyethylene glycol (PEG) 3350 (Miralax) packet 17 g 17 g Oral Daily PRN Jade Van Dijck, DO sodium chloride 0.9 % infusion 5-250 mL/hr IntraVENous PRN Jade Ballard Dianak, DO sodium chloride 0.9% (NS) flush 5-40 [...] Normocephalic and atraumatic. Pulm (more content not included)...[facility]04-12-2025 History and physical note* Jade Carmona, DO - 10/12/2024 5:56 AM EDT Images from the original note were not included. ASSIGNMENT CLERK H&P Patient Name: Jose Ewdard Patient : 1995 Room/Bed: [facility]/[address] Admission Date/Time: 10/12/2024 3:14 AM Primary Care Physician: Marco Melvin HPI: Jose Edward is a 29 y.o. female patient transferred from [facility] for concern for ovarian hyperstimulation syndrome. Patient recently had an egg retrieval in [place] 24 hours ago, she states that over [...] at her egg retrieval,they had to go "through my bladder", so [...] 100 mg, 100 mg, Oral, BID, Jade Carmona, DO lactated Ringer's infusion, 100 mL/hr, IntraVENous, [...] 17 g, Oral, Daily PRN, Jade Carmona, DO sodium chloride 0.9 % infusion, 5-250 [...] mg 1,000 mg Oral q8h Jade Carmona, docusate sodium (Colace) capsule 100 mg 100 mg Oral BID Jade Carmona, lactated Ringer's infusion 100 mL/hr IntraVENous Continuous Jade Carmona, DO 100 mL/hr at 10/12/24 0522 100 mL/hr at 10/12/24 0522 ondansetron ODT (Zofran-ODT) disintegrating tablet 4 mg 4 mg Oral q8h PRN Jade Van Dianak, DO Or ondansetron (Zofran) injection 4 mg [...] (98.5 F) (Temporal) Resp 16 Ht 5' 2" (1.575 [...] abdominal distention, nausea -Patient was evaluated at [facility] initially and obtained imaging as stated below, imaging is available on PACS -CT A/P 10/11 no traumatic abdominal aortic injury or retroperitoneal hematoma, markedly enlarged ovaries with numerous ovarian cysts and moderate volume ascites, compatible with ovarian hyperstimulation - CTA 10/11 no traumatic thoracic aortic aneurysm or mediastinal hematoma ectasia of the main pulmonary artery seen in pulmonary hypertension -Patient transferred to [facility] for further management -CBC, CMP, [...] pain management -Avoid NSAIDs Please page the [facility] OBGYN Call RES group via [...] in the resident's note. documented in this [facility]04-12-2025 Discharge summary [facility] Medical Records Department [address] [place] [address] Emergency Department Summary 10/11/24 MR#: [id number] Acct: [id number] Name: JOSE EDWARD Rep #:[id number] : 1995 29 From: Fern Marroquin DO PCP: CHERYL Samano Status:REG ER Location: ED HPI History of Present Illness Chief Complaint: Shortness of Breath Detail of Chief Complaint: Shortness of breath and abdominal pain Informant: patient Narrative Narrative: Patient presents to the emergency department complaint shortness of breath and abdominal pain that started this morning. Patient states that she had driven [facility] this morning to have eggretrieval at a [...] No prior history of PE or DVT [facility] Medical History Abnormal uterine bleeding Conceived [...] 02/28/24 Unknown R x (FreeStyle Lexi 2 [place]) flash glucose sensor (FreeStyle #1 ea 02/28/24 Unknown Rx Lexi 2 Sensor kit) PNV no.151-iron 27 mg-folic 800 1 cap PO DAILY 5 Unknown History mcg-omega3 260 xj-myx-lja-fish capsule ( Multi-DHA (with vitamin K)) cabergoline [...] Diabetes Uncle Diabetes Grandmother Diabetes Surgical History Boyce teeth extracted History of hysteroscopy Status post laparoscopy S/P D&C (status post dilation and curettage) Hx of lumpectomy History of tonsillectomy and adenoidectomy Social History adopted: No household members: spouse number of children: 0 current occupational status: employed current occupation: [employer] current occupational exposures/hazards: No pets and animals: Yes (Avoid litterbox) pets and animals: cat(s) and dog(s) history of recent travel: Yes ([facility]) out of state: Yes out of country: No sexually active: Yes Smoking Status: Former smoker Electronic Cigarette Use: with nicotine alcohol intake: never substance use type: does not use well-balanced diet: daily or most days caffeine: No eating out: 1-3 times/week during the past year weight has: increased > 10 lbs what type of physical activity do you participate in: none jessica/tenriism: Orthodoxy seatbelt use: always do you feel safe [...] transfer patient to tertiary care center at [facility] for definitive treatment. Discussed case with Dr. Covarrubias at [facility] who accepted transfer ofpatient to their facility. [...] 87.1 H Lymph % (Auto) 8.2 L [place] % (Auto) 4.0 Eos % (Auto) 0.0 [...] Clarity Clear Urine pH 7.0 Ur Specific [place] 1.010 Urine Protein 30 H Urine Glucose [...] compatible with ovarian hyperstimulation syndrome. Reading Location: [facility] Discharge Plan Triage Chief Complaint: Shortness of Breath Other Complaint: Abd Pain ED Provider: Fern Marroquin Dx/Rx/DC Orders Clinical Impression: Abdominal pain, Ovarian hyperstimulation syndrome, Leukocytosis, Acute urinary retention Prescriptions: No Action omeprazole 20 mg tablet,delayed release (DR/EC) 20 mg PO DAILY (DME) [employer] 2 [place] Misc See Rx Instructions .Route Qty: 1 [...] PA [Primary Care Provider] - Print Language: Andorran Disposition Disposition: DC/Tx to Another Type of HCF What to do if you have Problems For any increased pain, shortness of breath, bleeding, nausea or vomiting, chestpain, or any unexpected problems, contact your Primary Care Provider. Call [facility] ([phone]) or report tothe closest Emergency Room. Call 911 if necessary. 10/12/245 Cosigner Signature (if applicable): CC: CHERYL Samano ~ Signed [facility]04-11-2025 Radiology Diagnostic study note [facility] Imaging Services [address] [place], [place] [address] CTA Chst, Abd, Pel W and/or WO MR#: [id number] Acct: [id number] Name: GLASSJOSE JIM Rep #: [id number] : 1995 F 29 From: Afia Francis MD PCP: CHERYL Samano Status: REG ER Study:CTA Chst, Abd, Pel W and/or WO Date of Exam: 10/11/24 Exam# [id number] Ordering Dr: Delma Marroquin DO PROCEDURE: CTA [...] compatible with ovarian hyperstimulation syndrome. Reading Location: [id number] CC: Dr. Fern Marroquin DO; CHERYL Samano ~ Pony Rougher: Signed [facility]04-11-2025 Discharge summary Author Fern Marroquin [facility] Note Date/Time October 12, 2024 12: 06am [facility] Medical Records Department [address] [place] [address] Emergency Department Summary 10/11/24 MR#: [id number] Acct: [id number] Name: JOSE EDWARD Rep #:[id number] : 1995 29 From: Fern Marroquin DO PCP: CHERYL Samano Status:REG ER Location: ED HPI History of Present Illness Chief Complaint: Shortness of Breath Detail of Chief Complaint: Shortness of breath and abdominal pain Informant: patient Narrative Narrative: Patient presents to the emergency department complaint shortness of breath and abdominal pain that started this morning. Patient states that she had driven [facility] this morning to have egg retrieval [...] No prior history of PE or DVT [facility] Medical History Abnormal uterine bleeding Conceived [...] 02/28/24 Unknown R x (FreeStyle Lexi 2 [place]) flash glucose sensor (FreeStyle #1 ea 02/28/24 Unknown Rx Lexi 2 Sensor kit) PNV no.151-iron 27 mg-folic 800 1 cap PO DAILY 5 Unknown History mcg-omega3 260 dk-udc-xlt-fish capsule ( Multi-DHA (with vitamin K)) cabergoline [...] Diabetes Uncle Diabetes Grandmother Diabetes Surgical History Boyce teeth extracted History of hysteroscopy Status post laparoscopy S/P D&C (status post dilation and curettage) Hx of lumpectomy History of tonsillectomy and adenoidectomy Social History adopted: No household members: spouse number of children: 0 current occupational status: employed current occupation: [employer] current occupational exposures/hazards: No pets and animals: Yes (Avoid litterbox) pets and animals: cat(s) and dog(s) history of recent travel: Yes ([facility]) out of state: Yes out of country: No sexually active: Yes Smoking Status: Former smoker Electronic Cigarette Use: with nicotine alcohol intake: never substance use type: does not use well-balanced diet: daily or most days caffeine: No eating out: 1-3 times/week during the past year weight has: increased > 10 lbs what type of physical activity do you participate in: none jessica/tenriism: Orthodoxy seatbelt use: always do you feel safe [...] transfer patient to tertiary care center at [facility] for definitive treatment. Discussed case with Dr. Covarrubias at [facility] who accepted transfer of patient to their [...] 87.1 H Lymph % (Auto) 8.2 L [place] % (Auto) 4.0 Eos % (Auto) 0.0 [...] Clarity Clear Urine pH 7.0 Ur Specific [place] 1.010 Urine Protein 30 H Urine Glucose [...] compatible with ovarian hyperstimulation syndrome. Reading Location: [facility] Discharge Plan Triage Chief Complaint: Shortness of Breath Other Complaint: Abd Pain ED Provider: Fern Marroquin Dx/Rx/DC Orders Clinical Impression: Abdominal pain, Ovarian hyperstimulation syndrome, Leukocytosis, Acute urinary retention Prescriptions: No Action omeprazole 20 mg tablet,delayed release (DR/EC) 20 mg PO DAILY (DME) FreeStyle Lexi 2 [place] Misc See Rx Instructions .Route Qty: 1 [...] PA [Primary Care Provider] - Print Language: Andorran Disposition Disposition: DC/Tx to Another Type of HCF What to do if you have Problems For any increased pain, shortness of breath, bleeding, nausea or vomiting, chestpain, or any unexpected problems, contact your Primary Care Provider. Call [facility] ([phone]) or report to the closest Emergency Room. Call 911 if necessary. 10/12/245 <Electronically signed by Fern Marroquin DO> Cosigner Signature (if applicable): CC: CHERYL Samano ~ Signed [facility] Work Phone: 1(746) 512-690812-18-2024 Evaluation note* Diagnosis Onset Date Resolution Status Admit Date Amenorrhea acute June 19, 2024 9:36am Pelvic floor dysfunction acute June 19, 2024 9:36am Vaginal discharge acute Decembe r 2023 9:36am [facility] Work Phone: 1(749) 663-478309-15-2024 Nurse Note* Maryellen Posey RN - 03/17/2024 6:40 PM EDT Mom discharged mom in good condition with all belongings to a private residence, accompanied by . All discharge instructions reviewed with patient who verbalizes understanding and denies further questions.Mom [facility] out at [address] [id number] Nurse Note* Maryellen Posey RN - 03/17/2024 [...] cramping / contractions occur. documented in this [facility]09-15-2024 NoteDepartment of Obstetrics and Gynecology Delivery Discharge Summary Admission on 03/06/2024 4:35 PM Hospital course: at 29w4d admitted for Anhydramnios/suspected PPROM. Pt is GDMA2. Pt received BMZ, latency Abx, and magnesium sulfate. At 30w5d, PPROM and VB noted, leading to pt laboring. Fetus was Breech. By PLTCS, a boy was delivered at 30w5d [see "Notes" for details]. course & complications: - Uncomplicated Consults: - Neonatology: prematurity Surgical Operations & Procedures: Date of delivery: 03/14/2024 Procedure: : Low Transverse Anesthesia: Spinal anesthesia and TAP block: Routine Laceration(s): n/a Delivery Complications: none EBL: 400 mL Pertinent Findings & Procedures: Information for the patient's : Marcus Edward [[id number]] male 3 lb 6.7 oz (1.55 kg) Apgars: Information for the patient's : Marcus Edward [[id number]] : : Boy, Blood Type/Rh: O Antibody Screen: No results found for: "LABANTI" Rubella: No results found for: "RUBELLAIGG" Contraception: no method : pumping VTE Prophylaxis: [...] Your Medications These medications were sent to [facility] [address] [place] [address] Hours: Monday to Monday 10 am to [...] [] Order a blood pressure kit through [facility] (or the patient's own pharmacy on the weekend) [] Order the blood pressure log through [facility] [] Place an office visit or telephone [...] notify her physician if any of these occur.[facility] [id number] Hospital course Narrative* Wendi Aguilar MD - [...] a boy was delivered at 30w5d [see "Notes" for details]. course & complications: - Uncomplicated Consults: - Neonatology: prematurity Surgical Operations & Procedures: Date of delivery: 03/14/2024 Procedure: : Low Transverse Anesthesia: Spinal anesthesia and TAP block: Routine Laceration(s): n/a Delivery Complications: none EBL: 400 mL Pertinent Findings & Procedures: Information for the patient's : Marcus Edward [[id number]] male 3 lb 6.7 oz (1.55 kg) Apgars: Information for the patient's : Marcus Edward [[id number]] : Infant: Boy, Blood Type/Rh: O Antibody Screen: No results found for: "LABANTI" Rubella: No results found for: "RUBELLAIGG" Contraception: no method : pumping VTE Prophylaxis: [...] Your Medications These medications were sent to [facility] [address] [place] [address] Hours: Monday to Monday 10 am to [...] [] Order a blood pressure kit through [facility] (or the patient's own pharmacy on the weekend) [] Order the blood pressure log through [facility] [] Place an office visit or telephone [...] any of these occur. documented in this [facility]09-15-2024 Miscellaneous Notes* Note - Melissa Mantilla RN - 03/17/2024 8:00 AM EDT Check in with mom, pumping for 30 5/7 week in NICU. Mom is pumping 15cc per session. Observed pump session and resized her flanges to 22.5mm. Mom was given Spectra pump from [facility] sephora product consultant. Answer mom's questions. Discharge today. * [...] be able to transfer [place]. Sw also dicussed her and can stay at bedside. Discussed with NICU Sw who did meet with parents to assist. No further needs anticipated. OK FOR DC * Care Coordination - Amy Connor RN - 03/15/2024 12:25 PM EDT Date: 03/15/2024 Name: Jose Edward : 1995 [facility] Patient Information Primary Caregiver: Self Accompanied by/Relationship: S/O;Family Marital Status: Support System: SO/Family Restorationist/Cultural Factors: none Activities of Daily Living Communication: [...] 30 6/7 weeks. [facility] [place]). Nurse has mom set up with hospital [...] electric breast pump- mom to check with [facility] for rental pump.All questions answered. Will continue [...] closely. Savanah Duarte DO 03/13/2024 11:23 PM [place] more cramping. 1cm dilated. Reportedly was 1cm [...] options for home going pump; pt has [employer] insurance. Availability of LC for NICU and reviewed. [facility] handout "" Your NICU Baby" given and reviewed. Encouraged to watch videos from [employer] to support her goals. [facility] de[facility]. Encouraged to call with any [...] in the possibility of staying at the [facility] after delivery due to living approx. 2 hours away; patient and provided background check paperwork; will be faxed to [facility] referral line; Will consult for patient as pt would like to see prior to delivery * Care Coordination - Amy Connor RN - 03/07/2024 10:58 AM EDT Date: 03/07/2024 Name: Jose Edward : 1995 [facility] Information [place] - transport Patient Information Primary Caregiver: Self Accompanied by/Relationship: S/O;Family Marital Status: Support System: SO/Family Restorationist/Cultural Factors: Activities of Daily Living Communication: See [...] N/A Children's Services: N/A documented in this [facility]09-15-2024 Obstetrics Note* Note - Melissa Mantilla RN - 03/17/2024 8:00 AM EDT Check in with mom, pumping for 30 5/7 week in NICU. Mom is pumping 15cc per session. Observed pump session and resized her flanges to 22.5mm. Mom was given Spectra pump from [facility] se[employer] product consultant. Answer mom's questions. Discharge today. [id number] History of Present illness Narrative* Chelsie Swenson, [...] O Antibody Screen: No results found for: "LABANTI" No results found for: "RUBELLAIGG" LABOR DELIVERY ??? SCD's ONLY (labor through [...] 03/14 - Dexcom in place (share code [id number]) - Discontinued meds after delivery and have been trending post-prandials - Blood sugars normalizing - AM fasting pending Disposition: Anticipate discharge today per private attending's discretion Based on my clinical assessment, this patient is safe for self discharge (does not need transport by wheelchair) if she so chooses. Provider's Name: MD Chelsie Brasher, 03/17/2024, 5:48 AM Associated attestation - Wendi Aguilar MD - 03/17/2024 11:06 AM EDT Hospital Care (Independent): I independently saw and evaluated the patient. I agree with the findings and plan of care as documented in the resident's note. POD#3 from p[facility]CS doing well. Meeting milestones. VSS. Ready for DC. They live 1.75 hours away so will stay in NICU and [facility] when a spot opens. Has a breat [...] chart review and documentation * Juliana Nguyen, - 03/16/2024 5:43 AM EDT Images from [...] O Antibody Screen: No results found for: "LABANTI" No results found for: "RUBELLAIGG" LABOR DELIVERY ??? SCD's ONLY (labor through [...] if she so chooses. Provider's Name: MD Juliana Brasher, 03/16/2024, 5:43 AM Associated attestation - Wendi [...] findings and plans of the resident physician, andagrcollin as documented in their note. Doing well [...] which is appropriate. RD sign off to library acquisitions technician to continue to monitor. Gypsy Kirby MS [...] [phone] Resp: 17 17 17 Temp: 36.7 C (98.1 F) 36.9 C [...] 1 g 1 g IntraVENous PRN Savanah Duarte DO dextrose 5 % infusion 100 mL/hr IntraVENous PRN Keiry Boles DO dextrose 50 % solution 12.5 g 12.5 g IntraVENous PRN Keiry oBles DO glucagon (human recombinant) injection 1 mg 1 mg IntraMUSCular PRN Keiry Boles DO glucose oral gel 15 g 15 g Oral PRN Keiry Boles DO influenza vac tiss-cult subunt (Flucelvax) injection 0.5 mL 0.5 mL IntraMUSCular Once Juliana Nguyen DO Insulin Lispro (Humalog) injection 6 Units [...] GM/500ML infusion 1,000 mg/hr IntraVENous Continuous Savanah Duarte, DO magnesium sulfate IVPB premix 4,000 mg 4,000 mg IntraVENous Once Savanah Gerald, DO 4,000 mg at 03/14/24 0545 ondansetron [...] anhydramnios; ROM rule out was deferred in [facility] secondary to blood noted; transported to [facility] - in triage, SSE showed gross rupture [...] cervical exam, reportedly was 1 cm at [facility], still calos this AM - Patient remained afebrile overnight, reports no fevers or chills, no fundal tenderness on examination - Started on magnesium sulfate infusion for neuroprotection - Given rBMZ x1 on 03/13, due for second dose today @1003 - Currently NPO - Plan to US again today to confirm breech presentation GDMA1 - Carb-controlled diet - Dexcom in place, share code [id number] - Continue to monitor BGTs fasting and [...] q12h Keiry Schlieper, DO 10 mL at 03/12/24 204 sodium chloride 0.9% (NS) flush 5-40 mL 5-40 mL IntraVENous PRN Keiry Schlieper, DO Assessment/Plan: Jose Edward is a 28 y.o. female 30w4d Anhydramnios PPROM - Patient presented with LOF for about 3 weeks; US at outside facility showed anhydramnios; ROM rule out was deferred in [facility] secondary to blood noted; transported to [facility] - in triage, SSE showed gross rupture [...] diet - Dexcom in place, share code [id number] - Continue to monitor BGTs fasting and [...] infection. Primary patient of Edouard Paulson/Prachi in [facility]. Alerted her RN today to continue temp [...] day Juliana Nguyen DO 500 mg at 359 calcium gluconate 10 % injection 1 g [...] g Oral PRN Keiry Boles, DO nitrofurantoin (macrocrystal-monohydrate) (Macrobid) capsule 100 mg 100 mg Oral 2 times per day Juliana Ace, DO 100 mg at 03/11/24 2100 ondansetron [...] [place] secondary to blood noted; transported to [facility] - in triage, SSE showed gross rupture [...] 2x2 pocket, BPP 8/10 for fluid - NICU consulted - Patient had repeat SSE 03/11 because she felt increased pressure, noted to be visually closed - Patient reports she was comfortable overnight with no contractions - Patient is chata breech and will be for CD if for delivery - Twice weekly BPP, most recent BPP (03/11) was 6/8 for fluid GDMA1 - Carb-controlled diet - Dexcom in place, share code [id number] - Continue to monitor BGTs fasting and [...] plan pending d/w attending. Ana Harris, MS4 03/12/2024, 6:14 AM Patient independently examined [...] of infection. Primary patient of Edouard Paulson/Prachi Falcon spent 30 minutes in the visit today on the floor reviewing the chart, discussing the case with the residency staff and nursing Christiano Au MD * Ana Tovar, - 03/11/2024 12:24 PM EDT Rn notified [...] day Juliana Nguyen DO 500 mg at 024 calcium gluconate 10 % injection 1 g [...] Juliana Nguyen DO 100 mg at 03/10/24 2105 ondansetron ODT (Zofran-ODT) disintegrating tablet 4 mg [...] anhydramnios; ROM rule out was deferred in [facility] secondary to blood noted; transported to [facility] - in triage, SSE showed gross rupture [...] 2x2 pocket, BPP 02/09 for fluid - Patient is chata breech and will be for CD if for delivery - NICU consulted - Patient reported vaginal bleeding overnight, SSE performed, cervix unchanged and visibly dilated to 1 cm, no active bleeding - BPP today GDMA1 - Carb-controlled diet - Dexcom in place, share code [id number] - Continue to monitor BGTs fasting and [...] Mancia MD - 03/11/2024 2:51 PM EDT MFM ATTENDING I have personally obtained a history and examined the patient with Dr. Nguyen. I agree with the assessment and plan as documented in the resident's note. The patient is a 28 y.o. 30w2d now HD#6, admitted for PPROM Pertinent Background: Transferred from [facility] for PPROM. Gross rupture confirmed on admit and anhydramnios at OSH ultrasound. Given BMZ, Mag for LIBRARY MEDIA ASSISTANT and latency antibiotics (amox only due to [...] BMZ for lung maturity and magnesium for LIBRARY MEDIA ASSISTANT. We discussed the indication for delivery with [...] care teams. Saumya Mancia MD * Keiry Boles, - 03/11/2024 12:39 AM EDT Images from [...] [facility] secondary to blood noted; transported to [facility]. In triage,SSE showed gross rupture of membranes [...] Ordered Anthropometric Measures: Height: 157.5 cm (5' 2") Current Body Weight: 85.3 kg (188 lb) (03/06) Weight Source: Not Specified [place] Body Weight (lbs) (Calculated): 110 lbs [place] Body Weight (Kg) (Calculated): 50 kg % [place] Body Weight (Calculated): 170.9 % BMI (kg/m2) [...] soon to determine Joanne Adame RD Contact: [employer] or *[id number] * Mary Alonso MD - 03/10/2024 7:11 [...] day Juliana Nguyen DO 500 mg at 704 calcium gluconate [...] anhydramnios; ROM rule out was deferred in [facility] secondary to blood noted; transported to [facility] - in triage, SSE showed gross rupture [...] diet - Dexcom in place, share code [id number] - Continue to monitor BGTs fasting and [...] 03/10/2024, 7:11 AM Associated attestation - Saumya Mancia MD - 03/10/2024 2:46 PM EDT MFM ATTENDING I have personally obtained a history and examined the patient with Dr. Nguyen. I agree with the assessment and plan as documented in the resident's note. The patient is a 28 y.o. 30w1d now HD#5, admitted for PPROM Pertinent Background: Transferred from [facility] for PPROM. Gross rupture confirmed on admit and anhydramnios at OSH ultrasound. Given BMZ, Mag for LIBRARY MEDIA ASSISTANT and latency antibiotics (amox only due to [...] BMZ for lung maturity and magnesium for LIBRARY MEDIA ASSISTANT. We discussed the indication for delivery with [...] care teams. Saumya Mancia MD * Juliana Nguyen DO - 03/09/2024 5:58 AM EDT Images from [...] day Juliana Nguyen, DO 500 mg at calcium gluconate 10 % injection 1 g 1 g IntraVENous PRN Dali Hall MD dextrose 5 % infusion 100 mL/hr IntraVENous PRN Keiry Boles DO dextrose 50 % solution 12.5 g 12.5 g IntraVENous PRN Keiry Boles DO famotidine (Pepcid) tablet 20 mg 20 mg Oral BID Ehsan Gonsalez MD 20 mg at 03/08/24 173 Or famotidine (Pepcid) 20 mg in sodium chloride (PF) 0.9 % 10 mL injection 20 mg IntraVENous BID Ehsan Gonsalez MD 20 mg at 03/08/246 glucagon (human recombinant) injection 1 mg 1 mg IntraMUSCular PRN Keiry Boles, DO glucose oral gel 15 g 15 g Oral PRN Keiry Boles, DO lactated ringers infusion 125 mL/hr IntraVENous Continuous Dali Hall MD 125 mL/hr at 03/06/24 1730 125 mL/hr at 03/06/24 1730 nitrofurantoin (macrocrystal-monohydrate) (Macrobid) capsule 100 mg 100 mg Oral 2 times per day Juliana NguyenDO 100 mg at 03/08/242115 ondansetron ODT (Zofran-ODT) [...] anhydramnios; ROM rule out was deferred in [facility] secondary to blood noted; transported to [facility] - in triage, SSE showed gross rupture [...] diet - Dexcom in place, share code [id number] - Continue to monitor BGTs fasting and [...] admitted for PPROM Pertinent Background: Transferred from [facility] for PPROM. Gross rupture confirmed on admit and anhydramnios at OSH ultrasound. Given BMZ, Mag for LIBRARY MEDIA ASSISTANT and latency antibiotics (amox only due to [...] BMZ for lung maturity and magnesium for LIBRARY MEDIA ASSISTANT. We discussed the indication for delivery with any signs of infection. We reviewed the recommendation for inpatient admission until delivery and plan for delivery at 34 weeks unless indicated sooner for labor, infection or NRFS. All questions answered. Continue latency antibiotics for 7 days total. S/p BMZ 03/06-5 S/p Mag S/p NICU consult 1hr TID [...] 5:51 AM 03/06/2024 Hospital Day: 3 Jose Thomasezio, 28 y.o. 29w6d Patient has been seen [...] [place] secondary to blood noted; transported to [facility] - in triage, SSE showed gross rupture [...] diet - Dexcom in place, share code [id number] - Continue to monitor BGTs fasting and [...] at OSH ultrasound. Given BMZ, Mag for LIBRARY MEDIA ASSISTANT and latency antibiotics (amox only due to [...] BMZ for lung maturity and magnesium for LIBRARY MEDIA ASSISTANT. We discussed the indication for delivery with [...] care teams. Saumya Mancia MD * Juliana Nguyen DO - 03/07/2024 5:44 AM EDT Images from [...] perday Juliana Nguyen DO 200 mL/hr at 03/07/24 020 2,000 mg at 03/07/24 0203 Followed by [...] gel 15 g 15 g Oral PRN Keriy Boles, DO lactated ringers infusion 125 mL/hr IntraVENous Continuous Dali Hall MD 125 mL/hr at 03/06/24 1730 125 mL/hr at 03/06/24 1730 magnesium sulfate 20 GM/500ML infusion 1,000 mg/hr IntraVENous Continuous Dali Hall MD 25 mL/hr at 03/06/24 1745 1,000 mg/hr at 03/06/24 1745 nitrofurantoin (macrocrystal-monohydrate) (Macrobid) capsule 100 mg 100 [...] anhydramnios; ROM rule out was deferred in [facility] secondary to blood noted; transported to [facility] - in triage, SSE showed gross rupture of membranes with nitrazine positive, ferning negative and visually closed - Latency Abx ordered, allergy to azithromycin so currently receiving ampicillin - s/p BMZx1 at 1415 at [facility], second dose ordered for today - magnesium sulfate loading dose given at outside facility, undergoing continuous infusion at 1g/hrfor neuroprotection - CEFM - General carb controlled diet - Growth US this morning - Patient is breech and will be for CD if for delivery GDMA1 - Carb control diet - Dexcom in place, share code [id number] - Continue to monitor BGTs fasting and [...] at OSH ultrasound. Given BMZ, Mag for LIBRARY MEDIA ASSISTANT and latency antibiotics (amox only due to [...] antibiotics, BMZ for lung maturityand magnesium for LIBRARY MEDIA ASSISTANT. We discussed the indication for delivery with any signs of infection. We reviewed the recommendation for inpatient admission until delivery and plan for delivery at 34 weeks unless indicated sooner for labor, infection or NRFS. All questions answered. Continue latency antibiotics for 7 days total. BMZ #2 this evening S/p Mag for LIBRARY MEDIA ASSISTANT x >12 hrs total- now stopped NICU consult Understands baby in breech presentation and would be for if delivered 60 minutes spent in total floor time today for review of records, patient interview and exam, documentation and coordination of care with care teams. Saumya Mancia MD * Juliana Nguyen, - 03/06/2024 6:39 PM EDT Images from [...] 3 weeks now. She was evaluated in [facility] initially at that time with amnisure that [...] Patient a direct admission from Transfer from [facility]. Please see my other H&P attestation documented in this [facility]09-13-2024 Note* Care Coordination - IRVING Rodriguez - [...] No further needs anticipated. OK FOR DC [facility] Phone: 1(263) 891-635209-13-2024 Note* Care Coordination - IRVING Rodriguez - 03/15/2024 1:09 PM EDT Sw consult for help with housing while baby in NICU, as they live out of town. Met with her and spouse at bedside. They have started process including back ground check and think they have been approved for [facility]. Discussed that they can ask to talk to NICU Sw to finalize details. Mob hoping baby may be able to transfer baby to main campus. Sw also dicussed her and can stay at bedside. Discussed with NICU Sw who did meet with parents to assist. No further needs anticipated. OK FOR DC [email or web address] Phone: 1(756) 656-107909-13-2024 Note* Care Coordination - Amy Connor RN - 03/15/2024 12:25 PM EDT Date: 03/15/2024 Name: Jose Edward : 1995 [facility] Patient Information Primary Caregiver: Self Accompanied by/Relationship: S/O;Family Marital Status: Support System: SO/Family Restorationist/Cultural Factors: none Activities of Daily Living Communication: [...] Equipment: Developmental Delay: N/A Children's Services: N/A [id number]* Care Coordination - Amy Connor RN - 03/15/2024 12:25 PM EDT Date: 03/15/2024 Name: Jose Edward : 1995 [facility] Patient Information Primary Caregiver: Self Accompanied by/Relationship: S/O;Family Marital Status: Support System: SO/Family Restorationist/Cultural Factors: none Activities of Daily Living Communication: [...] Equipment: Developmental Delay: N/A Children's Services: N/A [facility] [id number] Obstetrics Note* Note - Melissa Mantilla RN - 03/15/2024 7:00 AM EDT Initial visit with mom. This is mom's first baby, delivered at 30 6/7 weeks. [facility]). Nurse has mom set up with hospital [...] electric breast pump- [facility]All questions answered. Will continue to monitor, encourage and support patient. [facility] [id number] Hospital Discharge instructions* Discharge Instructions* Marcela Rapp PA-C - 03/15/2024 5:22 AM EDT Images from the original note were not included. Thank you for allowing us to care of you at [facility]. This time can be one of many [...] over the next few weeks. Bleeding may turkey picker and then decrease again around 7-10 days [...] avoid constipation you may take a mild mhyc-aux-wjlmwxy stool softener (such as colace) as recommended [...] emergency, call 911 immediately. documented in this [facility]09-13-2024 Nurse Note* Yaritza Sanford RN - 03/15/2024 [...] of Humalog. Patient voiced understanding and agreeable. [id number] Note* Significant Event - Savanah Trout[place], DO - 03/14/2024 6:59 PM EDT 1hr pp 249. Discussed with Dr. Mancia. Will give 4u. Savanah DuarteDO 03/14/2024 6:59 PM Came back from [facility] and had eaten. Now 217. Will not eat further. Will give 4u. Advised on fasting BGT in the morning. Aware not to eat further for true fast in Am. Changed to CCD Savanah Duarte DO 03/15/2024 12:07 AM [employer] Phone: 1(850) 386-553109-12-2024 Note* Significant Event - Savanah Gerald, DO - 03/14/2024 6:59 PM EDT 1hr pp 249. Discussed with Dr. Mancia. Will give 4u. Savanah DuarteDO 03/14/2024 6:59 PM Came back from NICU and had eaten. Now 217. Will not eat further. Will give 4u. Advised on fasting BGT in the morning. Aware not to eat further for true fast in Am. Changed to [facility] Savanah Duarte DO 03/15/2024 12:07 AM [employer] Phone: 1([phone]) 259-468909-12-2024 NotePatient: Jose Edward Procedure Summary Date: 03/14/24 Room / Location: [address] Labor and Delivery Anesthesia Start: 1113 [...] discharged once all PACU criteria has been met.[facility] [id number] NotePatient: Jose Edward Procedure Summary Date: 03/14/24 Room / Location: [address] Labor and Delivery Anesthesia Start: 1113 Anesthesia Stop: 1248 Procedure: DELIVERY (Abdomen) Diagnosis: 30 weeks gestation of Surgeons: Maria Dolores Gordillo DO Responsible Provider: Atnonio Maria MD Anesthesia Type: regional, spinal ASA [...] Allowed opportunity for questions and acknowledgement of understanding.[facility]09-12-2024 NotePeripheral Block Time Out: 03/14/2024 12:37 PM Patient location during procedure: Procedural Start time: 03/14/2024 12:38 PM End time: 03/14/2024 12:40 PM Reason for block: at surgeon's request and post-op pain management Staffing Performed: REMOTE SENSING SCIENTIST Anesthesiologist: Antonio Maria MD Resident/REMOTE SENSING SCIENTIST: Carolyn Garza APRN - KARLA Preanesthetic Checklist Completed: patient identified, IV checked, site marked, risks and benefits discussed, surgical consent, monitors and equipment checked, pre-op evaluation and timeout performed Region: [place] Primary: TAP (60ml of Bupivacaine 0.375% with dexamethasone 0.01% with epinephrine 1:200,000 divided evenly bilaterally) Peripheral Block Patient position: supine Prep: ChloraPrep Patient monitoring: heart rate, sewing demonstrator and continuous pulse ox O2: Room air [...] injection and Local anesthetic injected without difficultyMedications jtdCKRYIdhucp-atfvotmrmec-tocmpkxgpmu (TAP) syringe - Injection 60 mL - 03/14/2024 12:38:00 [facility]09-12-2024 NoteSpinal Block Time Out: 03/14/2024 11:17 AM Patient location during procedure: OB Start time: 03/14/2024 11:18 AM End time: 03/14/2024 11:20 AM Reason for block: primary anesthetic Staffing Performed: REMOTE SENSING SCIENTIST Anesthesiologist: Antonio Maria MD Resident/REMOTE SENSING SCIENTIST: Carolyn Garza APRN - REMOTE SENSING SCIENTIST Preanesthetic Checklist Completed: patient identified, IV checked, [...] Assessment Sensory level: T4 Number of attempts: [address] [place], [place] 3190609-12-2024 NotePatient: Jose Edward Procedure Information Date/Time: 03/14/24 1100 Procedure: DELIVERY (Abdomen) Location: [facility] / [facility] Labor and Delivery Surgeons: Maria Dolores Gordillo, [...] who consented to blood products. Additional Equipment [facility]09-12-2024 Nurse Note* Yara Chinchilla RN - 03/14/2024 8:27 AM EDT Pt reports spotting on her pad and upon assessing urine found a few red specks in her urine [id number] Nurse Note* Venessa Gold RN - 03/14/2024 6:[address] Nguyen made aware that pt was just up to restroom and had a quarter size mucousy, bloody clot into toilet. No active bleeding noted. No change to plan of care at this time [facility] HospitalZlmrmf76-05-1000 Nurse Note* Venessa Gold RN - 03/14/2024 4:53 AM EDT Pt made aware that order for nothing to eat or drink has been ordered by Dr. Duarte. She states understanding. I made her aware that I will be starting IV fluids also. [facility] HospitalHvigvp71-03-4995 Note* Significant Event - Savanah Duarte DO [...] closely. Savanah Duarte DO 03/13/2024 11:23 PM [place] more cramping. 1cm dilated. Reportedly was 1cm [...] CEFM. Savanah Duarte DO 03/14/2024 4:09 AM [facility] HospitalIifrkz72-63-9590 Note* Significant Event - Savanah Duarte DO [...] closely. Savanah Duarte DO 03/13/2024 11:23 PM [facility] more cramping. 1cm dilated. Reportedly was 1cm [...] CEFM. Savanah Duarte DO 03/14/2024 4:09 AM [facility] HospitalEulrrz72-19-8245 Note* Care Coordination - Amy Connor RN - 03/13/2024 2:48 PM EDT Hospital day 8 at 30/4 weeks. PPROM. Voiced no needs or concerns. [place] [id number] Note* Care Coordination - Amy Connor RN - 03/13/2024 2:48 PM EDT Hospital day 8 at 30/4 weeks. PPROM. Voiced no needs or concerns. [place] [id number] Plan of care note* Care Plan - Rosio Woodruff RN - 03/13/2024 6:37 AM EDT The patient is Moderately Stable - Low risk of patient condition declining or worsening The patient's goals for the shift include remain The clinical goals for the shift include remain afebrile [place] [id number] Plan of care note* Care Plan - Rosio Woodruff RN - 03/13/2024 6:37 AM EDT The patient is Moderately Stable - Low risk of patient condition declining or worsening The patient's goals for the shift include remain The clinical goals for the shift include remain afebrile [facility] HospitalPgvrtn19-12-1896 Consult note* Paola Cole MD - 03/12/2024 [...] from NICU Potential need for transfer to [facility]' NICU if needs esclation of care, based [...] after she delivers/is discharged. Paola Cole MD [email or web address] Phone: 1([phone]) 620-466009-10-2024 Consult note* Paola Cole MD - 03/12/2024 [...] from NICU Potential need for transfer to [facility]'s NICU if needs esclation of care, based [...] discharged. Paola Cole MD documented in this [facility]09-09-2024 Obstetrics Note* Note - Cheryl Marinelli RN [...] options for home going pump; pt has [employer] insurance. Availability of LC for NICU and reviewed. [facility] handout "" Your NICU Baby" given and reviewed. Encouraged to watch videos from [employer] to support her goals. Resource numbers given for [facility] dept and [facility] [employer] dept. Encouraged to call with any questions / concerns. Pt receptive to my visit and education. Denies questions at this time. [facility] HospitalHcclmm53-71-3185 Note* Care Coordination - Amy Connor RN - 03/11/2024 4:10 PM EDT Hospital day 6 at 30/2 weeks. Anhydramnios PPROM at 30/2 weeks referral. Voiced no needs or concerns. [facility] [id number] Note* Care Coordination - Amy Connor RN - 03/11/2024 4:10 PM EDT Hospital day 6 at 30/2 weeks. Anhydramnios PPROM at 30/2 weeks referral. Voiced no needs or concerns. [facility] HospitalGgsxwk31-63-3736 NoteNutrition Assessment Type and Reason for Visit: [...] [place] secondary to blood noted; transported to [facility]. In triage, SSE showed gross rupture of [...] Ordered Anthropometric Measures: Height: 157.5 cm (5' 2") Current Body Weight: 85.3 kg (188 lb) (03/06) Weight Source: Not Specified [place] Body Weight (lbs) (Calculated): 110 lbs [place] Body Weight (Kg) (Calculated): 50 kg % [place] Body Weight (Calculated): 170.9 % BMI (kg/m2) [...] soon to determine Joanne Adame RD Contact: [employer] or *[id number] [place], [place] 7301409-06-2024 Note* Care Coordination - Julianna Martinez RN - 03/08/2024 3:44 PM EDT Hospital Day 3; 29/6 weeks today; No concerns at this time; Pt states she is interested in the possibility of staying at the [facility] after delivery due to living approx. 2 hours away; patient and provided background check paperwork; will be faxed to [facility] referral line; Will consult for patient as pt would like to see prior to delivery [facility] HospitalXdqhxa43-29-7143 Note* Care Coordination - Julianna Martinez RN - 03/08/2024 3:44 PM EDT Hospital Day 3; 29/6 weeks today; No concerns at this time; Pt states she is interested in the possibility of staying at the [facility] after delivery due to living approx. 2 hours away; patient and provided background check paperwork; will be faxed to [facility] referral line; Will consult for patient as pt would like to see prior to delivery [facility] HospitalHkgnhg61-73-1106 Note* Care Coordination - Amy Connor RN - 03/07/2024 10:58 AM EDT Date: 03/07/2024 Name: Jose Edward : 1995 [facility] Information [place] - transport Patient Information Primary Caregiver: Self Accompanied by/Relationship: S/O;Family Marital Status: Support System: SO/Family Restorationist/Cultural Factors: Activities of Daily Living Communication: See [...] N/A Developmental Delay: N/A Children's Services: N/A [facility] [id number] Note* Care Coordination - Amy Connor RN - 03/07/2024 10:58 AM EDT Date: 03/07/2024 Name: Jose Edward : 1995 [facility] Information [place] - [facility] Patient Information Primary Caregiver: Self Accompanied by/Relationship: S/O;Family Marital Status: Support System: SO/Family Restorationist/Cultural Factors: Activities of Daily Living Communication: See [...] N/A Developmental Delay: N/A Children's Services: N/A [facility] [id number] Nurse Note* Raegan Estrada RN - 03/07/2024 4:47 AM EDT RN called to bedside at 0435, pt reporting feeling increased leakage of fluid. Denies cramping, contractions, or pain, but does state feeling pressure which has become more constant. Dr Boles aware. Pt instructed to notify RN immediately if pressure intensifies or if cramping / contractions occur. [facility] [id number] History and physical note* Juliana Nguyen DO [...] 3 weeks now. She was evaluated in [place] initially at that time with amnisure that [...] breech on US today. Transport: Yes, from [facility] Prior Hospitalizations: No Estimated Due Date: Estimated [...] for about 3 weeks - presented to [facility] today complaining of LOF; - US was performed that showed anhydramnios; ROM rule out was deferred in [facility] secondary to blood noted - concern for PROM, transported to [facility] - in triage, SSE showed gross rupture of membranes with nitrazine positive, ferning negative and visually closed - Latency Abx ordered, allergy to azithromycin so will proceed with only ampicillin - s/p BMZx1 at 1415 at [facility], second dose ordered - magnesium sulfate loading dose given prior to transport, will order continuous infusion at 1g/hr for 12 hours for neuroprotection - CEFM overnight - General carb controlled diet ordered - growth US ordered for tomorrow AM GDMA1 - Carb control diet - has Dexcom in place, share code [id number] - will monitor BGTs fasting and 1 hour pp IUP @ 29w4d - Dating by 1st trimester US - Breech 03/06 - Monitoring: CEFM - Diet: Gestational CCD - BMZ x1 on 03/06 @ [address] Mancia, who agrees with plan. Dail Hall MD 03/06/2024, 5:26 PM Cc: Rand Hallman MD Associated attestation - Saumya Mancia MD - 03/06/2024 6:45 PM EDT Attending Supervising Physician's Attestation Statement This patient was admitted overnight while I was occupational health rn. I discussed the assessment and management with the resident physician. I reviewed and agree with the findings and plan as documented in the note. Transferred from [facility] for PPROM. 28yo at 29 4/7 weeks presents for PPROM. Gross rupture confirmed on exam with +nitrazine and +ferning. Cervix visually closed and patient overall comfortalbe. Ultrasound at transferring facility with anhydramnios. Breech presentation. Newly diagnosed GDMA1 Will admit for latency antibiotics, BMZ, and mag for neuroprotection. Pattern glucose. CS if for delivery. Saumya Mancia MD [facility] [id number] Note Attestation signed by Saumya Mancia MD at 03/06/2024 6:45 PM Attending Supervising Physician's Attestation Statement This patient was admitted overnight while I was occupational health rn. I discussed the assessment and management with the resident physician. I reviewed and agree with the findings and plan as documented in the note. Transferred from [facility] for PPROM. 28yo at 29 4/7 weeks [...] 3 weeks now. She was evaluated in [facility] initially at that time with amnisure that [...] breech on US today. Transport: Yes, from [facility] Prior Hospitalizations: No Estimated Due Date: Estimated [...] Not Performed ASSESSMENT AND (more content not included)...[facility]09-04-2024 History and physical note* Juliana Nguyen, - 03/06/2024 5:26 PM EDT Department of [...] 3 weeks now. She was evaluated in [facility] initially at that time with amnisure that [...] breech on US today. Transport: Yes, from [facility] Prior Hospitalizations: No Estimated Due Date: Estimated [...] for about 3 weeks - presented to [facility] today complaining of LOF; - US was performed that showed anhydramnios; ROM rule out was deferred in [facility] secondary to blood noted - concern for PROM, transported to [facility] - in triage, SSE showed gross rupture of membranes with nitrazine positive, ferning negative and visually closed - Latency Abx ordered, allergy to azithromycin so will proceed with only ampicillin - s/p BMZx1 at 1415 at [facility], second dose ordered - magnesium sulfate loading dose given prior to transport, will order continuous infusion at 1g/hr for 12 hours for neuroprotection - CEFM overnight - General carb controlled diet ordered - growth US ordered for tomorrow AM GDMA1 - Carb control diet - has Dexcom in place, share code [id number] - will monitor BGTs fasting and 1 [...] patient was admitted overnight while I was occupational health rn. I discussed the assessment and management with the resident physician. I reviewed and agree with the findings and plan as documented in the note. Transferred from [facility] for PPROM. 28yo at 29 4/7 weeks presents for PPROM. Gross rupture confirmed on exam with +nitrazine and +ferning. Cervix visually closed and patient overall comfortalbe. Ultrasound at transferring facility with anhydramnios. Breech presentation. Newly diagnosed GDMA1 Will admit for latency antibiotics, BMZ, and mag for neuroprotection. Pattern glucose. CS if for delivery. Saumya Mancia MD documented in this [facility]04-11-2024 NotePap Smear Specimen AdequacyApril 2023 11:59pmComment.Satisfactory for evaluation. No endocervical component is identified.[facility] A#[id number] County HospitalComment on above:Satisfactory for evaluation. No endocervical component is identified.10-12-2023 NotePap Smear Specimen AdequacyApril 2023 11:59pmComment.Satisfactory for evaluation. No endocervical component is identified.[facility] A#[id number] County HospitalComment on above:Satisfactory for evaluation. No endocervical component is identified. 09-19-2023 Discharge summary Author Karlos Miller [facility] September 19, 2023 4:24pm Note Date/Time September 19, 2023 12: 23pm [facility] Medical Records Department [address] [place] [address] Emergency Department Summary 09/19/23 MR#: [id number] Acct: [id number] Name: JOSE EDWARD Rep #:[id number] : 1995 28 From: Karlos Sarmiento PCP: CHERYL Samano Status:REG ER Location: ED HPI HPI - Female History of Present Illness Chief Complaint: Vag Bld, Preg Informant: patient Pain Pain: Positive for Pelvic Pain Onset: Today Context: Gradual Onset Timing: Continuous Quality: Positive for Dull and - ("Pinching" at times) Location: [facility] Worsened by: - [...] Patient states the procedure was done in [place] but she follows with Dr. Velarde locally. [facility] Medical History Abnormal uterine bleeding (AUB) [...] 0 current occupational status: employed current occupation: [employer] Smoking Status: Former smoker Electronic Cigarette Use: with nicotine alcohol intake: never substance use type: does not use seatbelt use: always do you feel safe at home: Yes additional social history: - Rene- Chuck ROS ROS ED Constitutional Constitutional ED: Denies chills [...] 77.7 H Lymph % (Auto) 16.6 L [place] % (Auto) 4.6 Eos % (Auto) 0.2 [...] Sl. Cloudy Urine pH 8.0 Ur Specific [place] 1.010 Urine Protein Negative Urine Glucose (UA) [...] Patient was instructed to follow-up with her ASSIGNMENT CLERK in 2 to 3 days. Patient was [...] your Primary Care Provider. Call [facility] ([phone]) or report to the closest Emergency Room. Call 911 if necessary. 09/19/23 1624 <Electronically signed by Karlos Miller DO> Cosigner Signature (if applicable): CC: CHERYL Samano ~ Signed [facility] Work Phone: 1(901) 240-394406-02-[address] Villareal [facility] December 02, 2022 10:42am Note Date/Time December 02, 2022 10:39 am [facility] Medical Records Department [address] [place] [address] Instructions for Home/Discharge Instructions 12/02/22 1038 MR#: [id number] Acct: [id number] Name: JOSE EDWARD #:[id number] : 1995 27 From: Julianna Newman DO PCP: CHERYL Samano Status:REG [facility] Discharge Instructions Diet Discharge Diet: No restrictions [...] Newman DO CC: CHERYL Melvin ~ Signed [facility] Work Phone: 1(976) 622-849406-02-2023 Procedure [facility] 12-02-2022 History and physical note Author Dr. Velde [facility] December 02, 2022 10:38am Note Date/Time December 02, 2022 10:38 am [facility] Medical Records Department [address] [place] [address] History & Physical Exam 12/02/22 1037 MR#: [id number] Acct: [id number] Name: JOSE EDWARD Rep #:[id number] : 1995 27 From: Julianna Newman DO PCP: CHERYL Samano Status:[place] [facility] Location: [place] [address] History and Physical Date of Admission: 12/02/22 Intake Vital Signs ? 11/09/2310:22 11/09/2310:22 Height 5 ft 2 in 5 ft 2 in Weight: 156 lb 6 oz ? BMI 28.5 ? BP 116/76 ? 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 employed current occupation:? [employer] Smoking Status:? Current every day smoker Electronic [...] years. got once and had a miscarriage. states thas seen [facility] for 2 rounds of iui without success. was seeing Dr. Del Real at [facility] and had a hysteroscopy D&C with removal [...] CHERYL Melvin; Dr. Julianna Newman DO~ Signed [facility] Work Phone: 1(162) 186-434604-14-2023 NotePap Smear Specimen AdequacyApril 2022 5:09pmComment.Satisfactory for evaluation. Endocervical and/or squamous metaplasticcells (endocervical component)are present.[facility] INTERFACED A#[id number] HospitalComment on above:Satisfactory for evaluation. Endocervical and/or [...] advise. Yas Hogan RN [facility] History of Past illness Narrative* Problem Noted Date Resolved Date Blurring of vision 09/13/2011 11/05/2018 Dizziness 05/10/2011 11/05/2018 Ingrowing nail 04/06/2011 07/28/2021 Cellulitis and abscess of toe, unspecified 03/1711/05/2018 documented as of this encounter (statuses as of 04/08/2022) [facility] Hospital[facility] noteNo assessment information availableWParkwood Hospital Work Phone: Evaluation note* Diagnosis Onset Date Resolution Status Encounter for routine gynecological examination noneactive Abnormal uterine bleeding ac nome Infertility acute Abnormal uterine bleeding ac nome Infertility acute [facility] Work Phone: Evaluation note* Diagnosis Onset Date Resolution Status Abnormal uterine bleeding ac nome Infertility acute Infertility acute Status post laparoscopy [facility] Work Phone: evaluation note* Diagnosis Onset Date Resolution Status Abnormal uterine bleeding ac nome Status post laparoscopy [facility] Work Phone: evaluation note* Diagnosis Onset Date Resolution Status Abnormal uterine bleeding ac nome [facility] Work Phone: evaluation note* Diagnosis Onset Date Resolution Status Abnormal uterine bleeding ac nome Abnormal uterine bleeding ac nome Conceived by in vitro fertilization acute Genetic testing of female ac nome Infertility acute PCOS (polycystic ovarian syndrome) acute acute Supervision of high-risk acute Anxiety and depression chron ic [facility] Work Phone: evaluation note* Diagnosis Onset Date Resolution Status Abnormal uterine bleeding ac nome Abnormal uterine bleeding ac nome Conceived by in vitro fertilization acute Genetic testing of female ac nome Infertility acute PCOS (polycystic ovarian syndrome) acute acute Supervision of high-risk acute Anxiety and depression chron ic Conceived by in vitro fertilization acute Genetic testing of female ac nome Infertility acute acute Supervision of high-risk acute Anxiety and depression chron ic [facility] Work Phone: evaluation note* Diagnosis Anhydramnios in third trimester, single or unspecified fetus- Primary Anhydramnios in third trimester, single or unspecified fetus Vaginal bleeding in , third trimester S/P documented in this encounter [facility] note* Diagnosis History of gestational diabetes Personal history of gestational diabetes [facility] [place] [facility] Diagnosis Ovarian hyperstimulation syndrome- Primary Other ovarian hyperfunction Ovarian hyperstimulation syndrome Other ovarian hyperfunction documented in this encounter [facility] note* Diagnosis Onset Date Resolution Status Admit Date Encounter for routine gynecological examination noneactive 2024 2:30pm [facility] Work Phone: Hospital Discharge instructions Additional Instructions Plenty of fluids and rest to replace your blood loss. Motrin and Tylenol for pain and cramping. Follow-up with your ASSIGNMENT CLERK to ensure you are improving. Your test was negative. Your blood counts were normal.[facility] Work Phone: Hospital Discharge instructions Additional Instructions Implant Used?: [facility] Work Phone: Hospital Discharge instructions Additional Instructions The x-ray of your abdomen shows significant constipation. I recommend you take magnesium citrate which is sold [id number]. Drink plenty of water and Gatorade to avoid dehydration as this will cause a lot of bowel movements. You also could be having pain from the ovarian hyperstimulation syndrome which should get better over time. I recommend follow- up with your ASSIGNMENT CLERK.[facility] Work Phone: Reason for referral (narrative)No reason for referral information availableHi-[facility] Work Phone: Recjco for visit Narrative* Auth/Cert (Routine) Specialty Diagnoses / Procedures Referred By Contac t Referred To Contact Diagnoses Ovarian hyperstimulation syndrome Ovarian hyperstimulation syndrome Procedures . Barak Covarrubias MD [address] [place] [address] [address] [place] [address] Phone: tel: fax: [facility] Medical Surgical Unit [facility] [address] [address] Phone: tel: Referral ID Status Reason Start Date Expiration Date Visits Re quested Visits Authorized [id number] 1 1 [facility] Health Summary Purpose Family History No Family History Records Found Relationship Condition Age at Onset Recorded Date/T heber mother Diabetes mellitus Unknown uncle Diabetes mellitus Unknown grandmother Diabetes mellitus Unknown Advance Directives No Advanced Directives Records Found Advance Directive Response Recorded Date/ Time Living Will No April 08 7:23pm Power of Band [employer] Car[employer] Operator No April 08 022 7:23pm Advance Directive Response Recorded Date/ Time Living Will No November 22, 2022 1 0:47am Power of [employer] Car[employer] Operator No November 22, 2022 10:47am Advance Directive Response Recorded Date/ Time Living Will No November 22, 2022 9 :47am Power of [employer] Car[employer] Operator No November 22, 2022 9:47am Advance Directive Response Recorded Date/ Time Living Will No September 19, 2023 1:13pm Power of [employer] Car[employer] Operator No September 18 1:13pm Advance Directive Response Recorded Date/ Time Living Will No October 12, 2023 3:47pm Power of [employer] Car[employer] Operator No October 11 3:47pm Date Activated Date Inactivated Comments 03/06/2024 5:26 PM 03/17/2024 8:57 PM Advance Directive Response Recorded Date/ Time Living Will No October 11, 2024 9:40pm Do you have a Healthcare Power of Band [employer] Car[employer] Operator? No October 11, 2024 9:40pm Date Activated Date Inactivated Comments 10/12/2024 3:53 AM 10/13/2024 2:55 PM Date Activated Date Inactivated Comments 03/06/2024 5:26 PM 03/17/2024 8:57 PM Advance Directive Response Recorded Date/ Time Living Will No October 11, 2024 9:40pm Do you have a Healthcare Power of [employer] Car[employer] Operator? No October 11, 2024 9:40pm Living Will No October 14, 2024 8:36pm Do you have a Healthcare Power of Band [employer] Car[employer] Operator? No October 14, 2024 8:36pm Chief Complaint and Reason for Visit Chief Complaint VAG BLEEDING Chief Complaint Annual (HIM TECH) THYROMEGALY THYROMEGALY diagnostic lap & fulguration diagnostic [...] 6:2 6pm Chief Complaint Admit Date Annual (HIM TECH) March 06, 2025 2:30pm Reason for Visit Admit Date Encounter for routine gynecological exam ination March 06, 2025 2:30pm Additional Source Comments INFORMATION SOURCE (unrecogn ized section and content) DATE CREATED AUTHOR 08/05/2021 [facility] DATE CREATED AUTHOR AUTHOR'S ORGANIZ ATION 05/06/2023 [facility] DATE CREATED AUTHOR AUTHOR'S ORGANIZ ATION 08/14/2023 [facility] DATE CREATED AUTHOR AUTHOR'S ORGANIZ ATION 05/15/2024 [facility] DATE CREATED AUTHOR AUTHOR'S ORGANIZ ATION 10/14/2024 [facility] DATE CREATED AUTHOR AUTHOR'S ORGANIZ ATION 03/14/2025 LU[facility] CALDWELL N DATE CREATED AUTHOR AUTHOR[facility]S ORGANIZ ATION [facility] Comments (unrecognize d section and content) In the event this informatio n is protected by the Federal Confidentiality of Alcohol and Drug Abuse Patient Records regulations: The Federal rules restrict any use of the information to criminally investigate or prosecute any alcohol or drug abuse patient.[facility] Reason for Visit (unrecogniz ed section and content) Reason Comments Heavy Bleeding Reason Comments Rupture of Membranes Specialty Diagnoses / Procedures Referred By Contac t Referred To Contact Diagnoses Anhydramnios in third trimester, single or unspecified fetus Procedures . Saumya Mancia MD [address] [place] [address] [address] [place] [address] Referral ID Status Reason Start Date Expiration Date Visits Re quested Visits Authorized [id number] 1 1 Care Teams (unrecognized sec tion and content) Industrial Psychologist Relationship Specialty Start Date End Date Zbigniew Matta MD [address] [place], [place] [id number] PCP - General Family Medicine 11/06/18 Team [...] Marco Melvin PA Primary Care Provider Active Dr. Yola Schaffer MD Attending Provider, Referring Pr ovider Active Team Status: Inactive Member Role Status Dates Marco Melvin PA Primary Care Provider Active Dr. Karlos Miller , Emergency Provider Active Team Status: Inactive Member Role Status Dates Marco Melvin PA Primary Care Provider Active Dr. Karlos Miller DO Attending Provider, Emergency P rokdder Active Team Status: Active Member Role Status Dates Dr. Romel Ritter MD Family Provider Active Marcoronald Melvin PA Primary Care Provider Active Team Status: Inactive Member Role Status Dates Marcoronald Melvin PA Primary Care Provider, Referring Pro vider Active Dr. Venessa Newby MD Attending Provider Active Team Status: Inactive Member Role Status Dates Marco Melvin PA Primary Care Provider Active Dr. Julianna Newman , Attending Provider Activ e Team Status: Inactive Member Role Status Dates Marco Melvin PA Primary Care Provider, Referring Pro vider Active Denny Bauer LIBRARY MEDIA ASSISTANT, LIBRARY MEDIA ASSISTANT-C Attending Provider Active Team Status: Inactive Member Role Status Dates Marco Melvin PA Primary Care Provider Active Denny Bauer LIBRARY MEDIA ASSISTANT, LIBRARY MEDIA ASSISTANT-C Attending Provider, Referring Provider Active Industrial Psychologist Relationship Specialty Start Date End Date Jeff Nguyen MD [address] [facility] [address] [place] [address] PCP - General 03/11/14 Team Status: Active [...] June 19, 2024 End: June 19, 2024 Lilly Barkman , LIBRARY MEDIA ASSISTANT-C Referring Provider Active Start: June 19, 2024 End: June 19, 2024 Team Status: Inactive Member Role Status Dates CHERYL Samano Primary Care Provider Active S tart: August 15, 2024 End: August 15, 2024 Dr. Julianna Newman , Attending Provider Activ e Start: August 15, [...] October 11, 2024 End: October 12, 2024 Industrial Psychologist Relationship Specialty Start Date End Date Marco Melvin [address] [place] [address] [place] [address] PCP - General 10/12/24 Team Status: Inactive [...] parameters not met)2120 (Given - Provider: Sonja Phipps RN) 0314 (Given - Provider: Sonja Phipps RN)0910 (Given - Provider: Hollie Avalos RN)1704 (Given - Provider: Yolanda Quigley RN)1900 (Canceled Entry - Provider: Sonja Phipps RN)2306 (Given - Provider: Sonja Phipps RN) 0555 (Given - Provider: Sonja Phipps RN)0700 (Canceled Entry - Provider: Automatic Discharge Provider - Comment: Automatically canceled at discontinue of medication order)1228 (Given - Provider: Maryellen Posey RN)1835 (Given - Provider: Maryellen Posey RN) Insulin Lispro (Humalog) injection 4 Units [...] or split. 0637 (Given - Provider: Maryellen Lawson RN) vitamin tablet 1 tablet, Oral, Daily, First [...] Phipps RN) 0219 (Given - Provider: Char Chacon RN)0830 (Given - Provider: Maryellen Posey RN)1448 (Given - Provider: Maryellen Posey RN) diphenhydrAMINE (BENADryl) injection 25 mg 25 mg, IntraVENous, Every 6 hours PRN, itching, hives, Starting on Lali 03/14/24 at 1500, docusate sodium (Colace) capsule 100 mg 100 mg, Oral, 2 times daily PRN, constipation, Starting on Lali 03/14/24 at 1500, , Do not crush or break. 2202 (Given - Provider: Sonja Phipps RN) 1706 (Given - Provider: Yolanda Quigley RN) 1029 (Given - Provider: Maryellen Posey RN) famotidine (Pepcid) tablet 20 mg 20 mg, Oral, Daily PRN, indigestion, heartburn, Starting on Lali 03/14/24 at 1500, , Renal dose per pharmacy [...] PRN, dry skin, nipple discomfort, Starting on Lali 03/14/24 at 1500, , Apply to affected area naloxone (Narcan) injection 0.4 mg 0.4 mg, IntraVENous, Every 5 min PRN, opioid reversal, respiratory depression, Starting on Lali 03/14/24 at 1502, +++ For RR <10, pinpoint pupils, over sedation for opioid reversal - MUST notify occupational health rn provider immediately after first dose, may give [...] (7-10), Starting on Lali 03/14/24 at 1500, 0058 (See Alternative - Provider: Yaritza Sanford RN)1401 (See Alternative - Provider: Maryellen Lawson, HENRIQUE)1758 (See Alternative - Provider: Maryellen Lawson, HENRIQUE)2202 (Given - Provider: Sonja Phipps RN) 0314 (See Alternative - Provider: Sonja Phipps RN)0910 (See Alternative - Provider: Hollie Avalos, RN)1308 (Given - Provider: Hollie Avalos RN)1703 (Given - Provider: Yolanda Quigley RN)2306 (See Alternative - Provider: Sonja Phipps RN) 0554 (See Alternative - Provider: Sonja Phipps, HENRIQUE)1029 (See Alternative - Provider: Maryellen Posey, RN)1448 (See Alternative - Provider: Maryellen Posey, RN)1835 (See Alternative - Provider: Maryellen Posey, RN) oxyCODONE (Roxicodone) immediate release tablet 5 mg(Linked Group 4) 5 mg, Oral, Every 4 hours PRN, moderate pain (4-6), Starting on Lali 03/14/24 at 1500, 0058 (Given - Provider: Yaritza Sanford RN)1401 (Given - Provider: Maryellen Lawson, HENRIQUE)1758 (Given - Provider: Maryellen Lawson, HENRIQUE)2202 (See Alternative - Provider: Sonja Phipps RN) 0314 (Given - Provider: Sonja Phipps RN)0910 (Given - Provider: Hollie Avalos RN)1308 (See Alternative - Provider: Hollie Avalos RN)1703 (See Alternative - Provider: Yolanda Quigley RN)2306 (Given - Provider: Sonja Phipps RN) 0554 (Given - Provider: Sonja Phipps, HENRIQUE)1029 (Given - Provider: Maryellen Posey, HENRIQUE)1448 (Given - Provider: Maryellen Posey, HENRIQUE)1835 (Given - Provider: Maryellen Posey, HENRIQUE) simethicone (Mylicon) chewable tablet 80 mg 80 [...] (4-6), Starting on Lali 03/14/24 at 1500, Or oxyCODONE (Roxicodone) immediate release [...] 0800 (Given - Provider: Ashwini Lewis RN) famotidine (Pepcid) tablet 20 mg 20 mg, Oral, 2 times daily, First dose on 10/12/24 at 1130 1237 (Given - Provider: Ashwini Lewis RN)1999 (Given - Provider: Lucinda Poe RN) 0800 (Given - Provider: Ashwini Lewis RN) phenazopyridine (Pyridium) tablet 200 mg 200 mg, Oral, 2 times daily, First dose on 10/12/24 at 0900 1052 (Given - Provider: Ashwini Lewis RN)2000 (Given - Provider: Lucinda Poe RN) 0800 (Given - Provider: Ashwini Lewis RN) sodium [...] Poe RN)1516 (New Bag - Provider: Ashwini Lewis RN) 0126 (New Bag - Provider: Lucinda Poe RN)1121 (New Bag - Provider: Ashwini Lewis RN) PRN Medication Order 10/11/2024 10/12/2024 10/13/2024 naloxone (Narcan) injection 0.4 mg 0.4 mg, IntraVENous, Every 5 min PRN, opioid reversal, respiratory depression, Starting on 10/12/24 at 1122, +++ For RR <10, pinpoint pupils, over sedation for opioid reversal - MUST notify occupational health rn provider immediately after first dose, may give [...] at 1121 1237 (Given - Provider: Ashwini Lewis RN)1829 (Given - Provider: Ashwini Lewis, HENRIQUE) polyethylene [...] BE BASED ON THE PRIMARY CLINICAL RECORDS. Compliance 11 [facility]. provides no warranty or guarantee of the accuracy or completeness of information in this document.
[2025-03-28 08:38] LABS: hCG Titer Quant., Serum 97 mIU/mL (<9 non-preg)
[2025-03-29 08:09] LABS: PROGESTERONE 42.6 ng/mL (.)
== END | disposition home or self-care (01) ==
LOC: LAB 07:16
PROVIDERS: Referring Provider Obstetrics & Gynecology Reproductive Endocrinology; Visit Provider Obstetrics & Gynecology Reproductive Endocrinology
DX: Z32.00 Encounter for pregnancy test, result unknown (principal)
CPT/HCPCS: 36415; 84144; 84702

== ENCOUNTER → 2025-03-31 | Outpatient (CLI) | payer BC, SELFPAY ==
--- OUTSIDE RECORDS SUMMARY | 2025-03-12 07:48 | XMS RPT_ITS ---
Author Name Auto Generated Organization OHIP Care Team Providers Care [employer] Body Maker Name Role Phone KYLER COVARRUBIAS Admitting Unavailable KYLER COVARRUBIAS Attending Unavailable NONE, PCP Referring Unavailable MARCO MELVIN Primary Care Unavailable MARCO MELVIN PA-C Primary Care Unavailable JOHN NAYLOR MD Attending Unavailable MARCO MELVIN PA-C Primary Care Unavailable JOHN NAYLOR MD Attending Unavailable OLEGARIO SEGURA, MARCO Trinh Primary Care Unavailable JOHN NAYLOR MD Attending Unavailable DAYDAY GATES, JOHN Maravilla Attending Unavailable MARCO MELVIN PA-C Primary Care Unavailable JOHN NAYLOR MD Attending Unavailable MARCO MELVIN PA-C Primary Care Unavailable JADA DENIS Attending Unavailable JADA DENIS Referring Unavailable BLOOMFIELD, JEFF Primary Care Unavailable BLOOMFIELD, JEFF Primary Care Unavailable TERESA, LUCIA L Attending Unavailable TERESA LUCIA L Referring Unavailable BLOOMFIELD, JEFF Primary Care Unavailable CATRACHITA HO Attending Unavailable CATRACHITA HO Referring Unavailable BAY, JEFF Primary Care Unavailable BLOOMFIELD, JEFF Primary Care Unavailable TERESA, LUCIA L Attending Unavailable TERESA, LUCIA L Referring Unavailable PROBLEMS DATE TYPE CONDITION / CODE ATTENDING STATUS [facility] 10/12/2024 Admitting Diagnosis Hyperstimulation of ovaries / N98.1(ICD-10) KYLER COVARRUBIAS Active [facility] PROCEDURES No Procedure Records Found RESULTS E2 Collected: 03/12/2025 7:54 AM Status: F Source: [place] [facility] TYPE CODE TESTS RESULT OUT OF RANGE REFERENCE UNITS LAB E2(LOINC) Estradiol Level 983.94 pg/mL Result Comment: Adult Female E2 Reference Ranges: Follicular phase 19.5 - 144.2 pg/mL Midcycle 63.9 - 356.7 pg/mL Luteal phase 55.8 - 214.2 pg/mL Post menopausal 0 - 33.2 pg/mL Performed By: #### E2, LH, P LATRICE #### [address] [address] LH Collected: 7:54 AM Status: F Source: [employer] TYPE CODE TESTS RESULT OUT OF RANGE REFERENCE UNITS LAB LH(LOINC) LH 5.8 mIU/mL Result Comment: Note - New Reference Range in effect 20Adult Female LH Reference Ranges: Follicular phase 1.9 - 12.5 mIU/mL Midcycle phase 8.7 - 76.3 mIU/mL Luteal phase 0.5 - 16.9 mIU/mL Post menopausal 5.0 - 55.2 mIU/mL Performed By: #### E2, LH, P LATRICE #### [address] [address] PROG Collected: 03/12/2025 7:54 AM Status: F Source: [employer] TYPE CODE TESTS RESULT OUT OF RANGE REFERENCE UNITS LAB PROG(LOINC) Progesterone Level <0.2 ng/mL Result Comment: Adult Female Progesterone Reference Ranges: Follicular phase <0.21 - 1.40 ng/mL Luteal phase 3.34 - 25.56 ng/mL Mid-Luteal phase 4.44 - 28.03 ng/mL Postmenopausal <0.21 - 0.73 ng/ml Female: First trimester 11.22 - 90.00 ng/ml Second trimester 25.55 - 89.40 ng/ml Third trimester 48.40 - 422.50 ng/ml Performed By: #### E2, LH, P LATRICE #### [place] [address] E2 Collected: 03/10/2025 7:53 AM Status: F Source: [facility] TYPE CODE TESTS RESULT OUT OF RANGE REFERENCE UNITS LAB E2(LOINC) Estradiol Level 73.69 pg/mL Result Comment: Adult Female E2 Reference Ranges: Follicular phase 19.5 - 144.2 pg/mL Midcycle 63.9 - 356.7 pg/mL Luteal phase 55.8 - 214.2 pg/mL Post menopausal 0 - 33.2 pg/mL Performed By: #### LH, PROG, E2 #### [address] [address] LH Collected: 7:53 AM Status: F Source: [employer] TYPE CODE TESTS RESULT OUT OF RANGE REFERENCE UNITS LAB LH(LOINC) LH 8.0 mIU/mL Result Comment: Note - New Reference Range in effect 20Adult Female LH Reference Ranges: Follicular phase 1.9 - 12.5 mIU/mL Midcycle phase 8.7 - 76.3 mIU/mL Luteal phase 0.5 - 16.9 mIU/mL Post menopausal 5.0 - 55.2 mIU/mL Performed By: #### LH, PROG, E2 #### [address] [address] PROG Collected: 03/10/2025 7:53 AM Status: F Source: [facility] TYPE CODE TESTS RESULT OUT OF RANGE REFERENCE UNITS LAB PROG(LOINC) Progesterone Level 0.2 ng/mL Result Comment: Adult Female Progesterone Reference Ranges: Follicular phase <0.21 - 1.40 ng/mL Luteal phase 3.34 - 25.56 ng/mL Mid-Luteal phase 4.44 - 28.03 ng/mL Postmenopausal <0.21 - 0.73 ng/ml Female: First trimester 11.22 - 90.00 ng/ml Second trimester 25.55 - 89.40 ng/ml Third trimester 48.40 - 422.50 ng/ml Performed By: #### LH, PROG, E2 #### [place] [address] E2 Collected: 03/07/2025 7:44 AM Status: F Source: [facility] [employer] TYPE CODE TESTS RESULT OUT OF RANGE REFERENCE UNITS LAB E2(LOINC) Estradiol Level 74.44 pg/mL Result Comment: Adult Female E2 Reference Ranges: Follicular phase 19.5 - 144.2 pg/mL Midcycle 63.9 - 356.7 pg/mL Luteal phase 55.8 - 214.2 pg/mL Post menopausal 0 - 33.2 pg/mL Performed By: #### LH, E2, P LATRICE #### [place] [address] LH Collected: 7:44 AM Status: F Source: [facility] TYPE CODE TESTS RESULT OUT OF RANGE REFERENCE UNITS LAB LH(LOINC) LH 4.0 mIU/mL Result Comment: Note - New Reference Range in effect 20Adult Female LH Reference Ranges: Follicular phase 1.9 - 12.5 mIU/mL Midcycle phase 8.7 - 76.3 mIU/mL Luteal phase 0.5 - 16.9 mIU/mL Post menopausal 5.0 - 55.2 mIU/mL Performed By: #### LH, E2, P LATRICE #### [place] [address] PROG Collected: 03/07/2025 7:44 AM Status: F Source: [facility] [employer] TYPE CODE TESTS RESULT OUT OF RANGE REFERENCE UNITS LAB PROG(LOINC) Progesterone Level <0.2 ng/mL Result Comment: Adult Female Progesterone Reference Ranges: Follicular phase <0.21 - 1.40 ng/mL Luteal phase 3.34 - 25.56 ng/mL Mid-Luteal phase 4.44 - 28.03 ng/mL Postmenopausal <0.21 - 0.73 ng/ml Female: First trimester 11.22 - 90.00 ng/ml Second trimester 25.55 - 89.40 ng/ml Third trimester 48.40 - 422.50 ng/ml Performed By: #### LH, E2, P LATRICE #### [place] [address] HCG Collected: 02/28/2025 7:48 AM Status: F Source: [facility] TYPE CODE TESTS RESULT OUT OF RANGE REFERENCE UNITS LAB LMP(LOINC) Date of LMP 02/26/2025 LAB HCGQ(LOINC) hCG, quantitative <1.0 mI U/mL Performed By: #### PROG, FSH , LH, FT4, E2, TSH, FT3 #### [place] [address] #### HCG #### [facility] [address] [place] [id number] TSH Collected: 7:48 AM Status: F Source: [facility] TYPE CODE TESTS RESULT OUT OF RANGE REFERENCE UNITS LAB TSH(LOINC) TSH 0.688 0.550-4.780 mIU/mL Performed By: #### PROG, FSH , LH, FT4, E2, TSH, FT3 #### [place] [address] #### HCG #### [facility] [address] [place] [id number] FT4 Collected: 7:48 AM Status: F Source: [facility] TYPE CODE TESTS RESULT OUT OF RANGE REFERENCE UNITS LAB FT4(LOINC) Free T4 1.24 0.89-1.76 ng/dL Result Comment: Note - New Reference Range in effect 20 Performed By: #### PROG, FSH , LH, FT4, E2, TSH, FT3 #### [place] [address] #### HCG #### [facility] [address] [place], [place] [address] E2 Collected: 02/28/2025 7:48 AM Status: F [facility] CODE TESTS RESULT OUT OF RANGE REFERENCE UNITS LAB E2(LOINC) Estradiol Level 44.61 pg/mL Result Comment: Adult Female E2 Reference Ranges: Follicular phase 19.5 - 144.2 pg/mL Midcycle 63.9 - 356.7 pg/mL Luteal phase 55.8 - 214.2 pg/mL Post menopausal 0 - 33.2 pg/mL Performed By: #### PROG, FSH , LH, FT4, E2, TSH, FT3 #### [place] [address] #### HCG #### [facility] [address] [place], [place] [address] PROG Collected: 02/28/2025 7:48 AM Status: F [facility]: [facility] CODE TESTS RESULT OUT OF RANGE REFERENCE UNITS LAB PROG(LOINC) Progesterone Level 0.3 ng/mL Result Comment: Adult Female Progesterone Reference Ranges: Follicular phase <0.21 - 1.40 ng/mL Luteal phase 3.34 - 25.56 ng/mL Mid-Luteal phase 4.44 - 28.03 ng/mL Postmenopausal <0.21 - 0.73 ng/ml Female: First trimester 11.22 - 90.00 ng/ml Second trimester 25.55 - 89.40 ng/ml Third trimester 48.40 - 422.50 ng/ml Performed By: #### PROG, FSH , LH, FT4, E2, TSH, FT3 #### [place] [address] #### HCG #### [facility] [address] [place], [place] [address] LH Collected: 7:48 AM Status: F [facility] CODE TESTS RESULT OUT OF RANGE REFERENCE UNITS LAB LH(LOINC) LH 6.1 mIU/mL Result Comment: Note - New Reference Range in effect 20 Adult Female LH Reference Ranges: Follicular phase 1.9 - 12.5 mIU/mL Midcycle phase 8.7 - 76.3 mIU/mL Luteal phase 0.5 - 16.9 mIU/mL Post menopausal 5.0 - 55.2 mIU/mL Performed By: #### PROG, FSH , LH, FT4, E2, TSH, FT3 #### [place] [address] #### HCG #### [facility] [address] [place], [place] [address] FSH Collected: 7:48 AM Status: F Source: [facility] TYPE CODE TESTS RESULT OUT OF RANGE REFERENCE UNITS LAB FSH(LOINC) FSH 6.6 mIU/mL Result Comment: Adult Female FSH Reference Ranges (05/26/99): Follicular phase 2.5 - 10.2 mIU/mL Midcycle phase 3.4 - 33.4 mIU/mL Luteal phase 1.5 - 9.1 mIU/mL Post menopausal 23.0 -116.3 mIU/mL Adult Male: 1.4 - 18.1 mIU/mL Performed By: #### PROG, FSH , LH, FT4, E2, TSH, FT3 #### [place] [address] #### HCG #### [facility] [address] [place], [place] [address] FT3 Collected: 7:48 AM Status: F Source: [facility] TYPE CODE TESTS RESULT OUT OF RANGE REFERENCE UNITS LAB FT3(LOINC) Free T3 2.68 2.30-4.20 pg/mL Performed By: #### PROG, FSH , LH, FT4, E2, TSH, FT3 #### [place] [address] #### HCG #### [facility] [address] [place], [place] [address] US GUIDED ABDOMINAL PARACENTESIS Observed: 10/13/2024 3:24 PM Status: F Source: [facility] Patient Name: NAT HASTINGS : 1995 Exam Date/Time: 10/13/2024 09:37 Procedure: US GUIDED ABDOMINAL PARACENTESIS Ordering Provider: COVARRUBIAS JUSTIN Reason For Exam: Moderate ascites, ovarian hyperstimulation Exam type: Ultrasound abdomen. CLINICAL INDICATION: Thoracentesis. COMPARISON: None. TECHNIQUE: Grayscale sonographic images were obtained of the abdomen. Color Doppler was utilized. FINDINGS: There is only a small amount of fluid within the abdomen. I attempted to perform a left-sided paracentesis however during advancement of the needle, the fluid dispersed so there was no safe window for paracentesis. The procedure was terminated at this time. IMPRESSION: Insufficient fluid for safe paracentesis. Report Dictated on Electronically Signed By: Alli Montiel MD Electronically Signed Date/Time: 10/13/2024 3:24 PM EDT DISCHARGE SUMMARY Observed: 10/13/2024 11:42 AM Status: COMPLETED Source: [facility] Critical Care Unit Manager Discharge Summary Patient Name: Felicita Hastings Patient : 1995 Primary Care Physician: Marco Melvin Admit Date: 10/12/2024 Attending Provider: Kyler Covarrubias MD Principal Diagnosis: Ovarian hyperstimulation syndrome Other Diagnosis: Ovarian hyperstimulation syndrome [N98.1] Patient Active Problem List Diagnosis Anhydramnios in third trimester, single or unspecified fetus Ovarian hyperstimulation syndrome Surgical Operations & Procedures: None Consultations: None Pertinent Findings & Procedures: Felicita Hastings is a 29 y.o. female , admitted for ovarian hyperstimulation syndrome. CT A/P 10/11 showed markedly enlarged ovaries, moderate amount of ascites. Her labs remarkable for leukocytosis of 19.6 on admission that came down to 12.4 prior to discharge. LFTs, creatinine were normal. She was started on IV fluids, and supportive care. Patient was taken for planned paracentesis on 10/13/2024 but they were unable to perform it due to minimal amount of fluid, and increased stool burden in her bowel. Overall her pain was well-controlled, her abdomen remained soft, slightly distended and non-acute. Patient was deemed stable for discharge on 10/13/2024. Patient was instructed to resume Lovenox injections. Follow up in 1-2 weeks with primary BOARD TURNER, Dr. Velarde. Discharge instructions reviewed and questions answered. Course of patient: normal Discharge to: Home Recommendations on Discharge: Medications: Medication List CONTINUE taking these medications DOSTINEX PO KEFLEX PO LOVENOX SC metFORMIN HCl 750 MG tablet omeprazole OTC 20 MG EC tablet Commonly known as: PriLOSEC OTC predniSONE 10 MG tablet Commonly known as: Deltasone 1 PO PYRIDIUM PO Activity: activity as tolerated Diet: regular diet Follow up: 1 to 2 weeks with primary BOARD TURNER Condition on discharge: good and stable Discharge Date: 10/13/24 Comments: Home care, Follow-up care, restrictions reviewed. Jade Carmona DO 10/13/2024, 11:44 AM PROGRESS NOTE Observed: 10/13/2024 6:11 AM Status: COMPLETED [facility] Attestation signed by Gypsy Pelayo MD at 10/13/2024 8:34 AM Hospital Care (Independent): I independently saw and evaluated the patient. I agree with the findings and plan of care as documented in the resident's note. Stable labs and patient without complaints except for bloating. Abd mildly, softly distended. Awaiting paracentesis today. 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 female , admitted for OHSS Patient seen and examined. She complained of continued bloating and some abdominal pain. Pain is controlled. Patient is tolerating oral intake. She is urinating. She denies any vaginal bleeding. She is ambulating without difficulty. Has not had a BM since admission. She denies Fever/Chills, Chest Pain, SOB, N/V. Vitals: Vitals: 10/12/24 0337 10/12/24 0509 10/12/24 1805 10/13/24 0531 BP: 102/65 116/74 99/61 BP Location: Right arm Right arm Patient Position: Lying Sitting Pulse: 97 100 81 Resp: 16 16 17 Temp: 36.9 ?C (98.5 ?F) 36.9 ?C (98.5 ?F) 36.7 ?C (98 ?F) TempSrc: Temporal Temporal Temporal SpO2: 96% 98% 98% Weight: 186 lb (84.4 kg) Height: 5' 2" (1.575 m) Intake/Output: Current Shift: No intake/output data recorded. Physical Exam: Gen: NAD, alert and cooperative HEENT: Normocephalic, atraumatic, EOMI, MMM Resp: normal effort Abd: soft, no rebound, no guarding. Slightly distended and globally tender, non acute Ext: No LE edema, no calf tenderness or swelling Medications: Current Facility-Administered Medications: acetaminophen (Tylenol) tablet 1,000 mg, 1,000 mg, Oral, q8h, Jade Carmona DO, 1,000 mg at 10/13/24 0433 cephalexin (Keflex) capsule 500 mg, 500 mg, Oral, BID, Jade Carmona DO, 500 mg at 10/12/241999 docusate sodium (Colace) capsule 100 mg, 100 mg, Oral, BID, Jade Carmona DO, 100 mg at 10/12/241999 famotidine (Pepcid) tablet 20 mg, 20 mg, Oral, BID, Dali Hall MD, 20 mg at 10/12/241999 lactated Ringer's infusion, 100 mL/hr, IntraVENous, Continuous, Jade Carmona DO, Last Rate: 100 mL/hr at 10/13/24 0126, 100 mL/hr at 10/13/24 0126 naloxone (Narcan) injection 0.4 mg, 0.4 mg, IntraVENous, q5 min PRN, Kyler Covarrubias MD ondansetron ODT (Zofran-ODT) disintegrating tablet 4 mg, 4 mg, Oral, q8h PRN, 4 mg at 10/12/24 1107 OR ondansetron (Zofran) injection 4 mg, 4 mg, IntraVENous, q6h PRN, Jade Van Dijck, DO oxyCODONE (Roxicodone) immediate release tablet 5 mg, 5 mg, Oral, q6h PRN, Dali Hall MD, 5 mg at 10/12/24 1829 phenazopyridine (Pyridium) tablet 200 mg, 200 mg, Oral, BID, Jade Van Dijck, DO, 200 mg at 10/12/24 2000 polyethylene glycol (PEG) 3350 (Miralax) packet 17 g, 17 g, Oral, Daily PRN, Jade Van Dijck, DO sodium chloride 0.9 % infusion, 5-250 mL/hr, IntraVENous, PRN, Jade Van Dijck, DO sodium chloride 0.9% (NS) flush 5-40 mL, 5-40 mL, IntraVENous, q12h, Jade Van Dijck, DO, 10 mL at 10/12/24 0400 sodium chloride 0.9% (NS) flush 5-40 mL, 5-40 mL, IntraVENous, PRN, Jade Van Dijck, DO Diagnostics: No results found. Labs: Admission on 10/12/2024 Component Date Value Ref Range Status Auto WBC 10/12/2024 19.6 (H) 3.6 - 10.7 10*3/uL Final RBC 10/12/2024 3.48 (L) 3.80 - 5.20 10*6/uL Final Hemoglobin 10/12/2024 10.1 (L) 11.7 - 16.0 g/dL Final Hematocrit 10/12/2024 30.9 (L) 35.0 - 47.0 % Final MCV 10/12/2024 88.8 77.0 - 99.0 fL Final MCH 10/12/2024 29.0 26.0 - 34.0 pg Final MCHC 10/12/2024 32.7 30.5 - 36.0 % Final RDW 10/12/2024 13.2 11.5 - 15.0 % Final Platelets 10/12/2024 292 140 - 440 10*3/uL Final MPV 10/12/2024 9.5 9.0 - 12.7 fL Final IPF 10/12/2024 2 Final SODIUM 10/12/2024 133 (L) 136 - 145 mmol/L Final POTASSIUM 10/12/2024 3.6 3.5 - 5.1 mmol/L Final Plasma potassium values may be up to 0.5 mmol/L lower than serum values. CHLORIDE 10/12/2024 104 98 - 107 mmol/L Final CARBON DIOXIDE 10/12/2024 24 22 - 29 mmol/L Final ANION GAP 10/12/2024 5 3 - 13 mmol/L Final UREA NITROGEN 10/12/2024 9 8 - 21 mg/dL Final CREATININE 10/12/2024 0.56 (L) 0.57 - 1.11 mg/dL Final GLUCOSE 10/12/2024 109 (H) 74 - 100 mg/dL Final CALCIUM 10/12/2024 8.2 (L) 8.4 - 10.2 mg/dL Final AST (SGOT) 10/12/2024 16 <34 U/L Final ALT 10/12/2024 11 <30 U/L Final ALKALINE PHOSPHATASE 10/12/2024 54 40 - 150 U/L Final ALBUMIN 10/12/2024 3.2 (L) 3.5 - 5.0 g/dL Final BILIRUBIN, TOTAL 10/12/2024 0.2 <1.2 mg/dL Final TOTAL PROTEIN 10/12/2024 5.4 (L) 6.4 - 8.3 g/dL Final eGFR 10/12/2024 >90.0 >60.0 mL/min/1.73m*2 Final Calculation based on the Chronic Kidney Disease Epidemiology Collaboration (CKD-EPI) equation refit without adjustment for race PROTHROMBIN TIME 10/12/2024 10.1 9.0 - 12.0 s Final INR 10/12/2024 0.9 0.9 - 1.1 Final Recommended Anticoagulant Therapy: SEE BELOW ----- INR of 2.0 - 3.0 : - Prophylaxis of Venous Thrombosis (high-risk surgery) - Treatment of Venous Thrombosis - Treatment of Pulmonary Embolism (Includes tissue heart valves, Acute Myocardial Infarction to prevent systemic embolism, Valvular Heart Disease, and Atrial Fibrillation) ----- INR of 2.5 - 3.5 : - Mechanical Prosthetic Valves (high risk) - If oral anticoagulant therapy is used to prevent Myocardial Infarction APTT 10/12/2024 26.3 20.0 - 30.5 s Final Auto WBC 10/13/2024 12.4 (H) 3.6 - 10.7 10*3/uL Final RBC 10/13/2024 3.15 (L) 3.80 - 5.20 10*6/uL Final Hemoglobin 10/13/2024 9.3 (L) 11.7 - 16.0 g/dL Final Hematocrit 10/13/2024 28.9 (L) 35.0 - 47.0 % Final MCV 10/13/2024 91.7 77.0 - 99.0 fL Final MCH 10/13/2024 29.5 26.0 - 34.0 pg Final MCHC 10/13/2024 32.2 30.5 - 36.0 % Final RDW 10/13/2024 13.9 11.5 - 15.0 % Final Platelets 10/13/2024 227 140 - 440 10*3/uL Final MPV 10/13/2024 9.6 9.0 - 12.7 fL Final SODIUM 10/13/2024 138 136 - 145 mmol/L Final POTASSIUM 10/13/2024 3.8 3.5 - 5.1 mmol/L Final Plasma potassium values may be up to 0.5 mmol/L lower than serum values. CHLORIDE 10/13/2024 110 (H) 98 - 107 mmol/L Final CARBON DIOXIDE 10/13/2024 24 22 - 29 mmol/L Final ANION GAP 10/13/2024 4 3 - 13 mmol/L Final UREA NITROGEN 10/13/2024 9 8 - 21 mg/dL Final CREATININE 10/13/2024 0.60 0.57 - 1.11 mg/dL Final GLUCOSE 10/13/2024 96 74 - 100 mg/dL Final CALCIUM 10/13/2024 7.9 (L) 8.4 - 10.2 mg/dL Final AST (SGOT) 10/13/2024 14 <34 U/L Final ALT 10/13/2024 9 <30 U/L Final ALKALINE PHOSPHATASE 10/13/2024 49 40 - 150 U/L Final ALBUMIN 10/13/2024 2.8 (L) 3.5 - 5.0 g/dL Final BILIRUBIN, TOTAL 10/13/2024 0.2 <1.2 mg/dL Final TOTAL PROTEIN 10/13/2024 4.9 (L) 6.4 - 8.3 g/dL Final eGFR 10/13/2024 >90.0 >60.0 mL/min/1.73m*2 Final Calculation based on the Chronic Kidney Disease Epidemiology Collaboration (CKD-EPI) equation refit without adjustment for race Assessment/Plan: Felicita Hastings 29 y.o. female , admitted for OHSS OHSS - S/p ovarian stimulation and retrieval on 10/11, had increased pain, abdominal bloating and nausea -CT A/P 10/11 no traumatic abdominal aortic injury or retroperitoneal hematoma, markedly enlarged ovaries with numerous ovarian cysts and moderate volume ascites, compatible with ovarian hyperstimulation - Labs remarkable for Hgb 9.3 this AM, 10.1 yesterday; CMP unremarkable, LFTs and Cr normal - Continue to trend labs - Continue IVF LR @100cc/hr - Patient overall doing the same, was unable to get paracentesis yesterday - Plan for paracentesis today for symptom management Principal Problem: Ovarian hyperstimulation syndrome Please page the [facility] OBGYN Call RES group via Secure Chat for any questions or concerns. Jade Carmona DO 10/13/2024, 6:11 AM 30 Observed: 10/13/2024 4:35 AM Status: COMPLETED Source: [facility] Problem: Pain - Adult Goal: Verbalizes/displays adequate comfort level or baseline comfort level Outcome: ProgressingProblem: Safety - Adult Goal: Free from fall injury Outcome: ProgressingProblem: Discharge Planning Goal: Discharge to home or other facility with appropriate resources Outcome: ProgressingProblem: Chronic Conditions and Co-morbidities Goal: Patient's chronic conditions and co-morbidity symptoms are monitored and maintained or improved Outcome: Progressing COMPREHENSIVE METABOLIC PANEL Collected: 10/13/2024 1 :25 AM Status: F Source: [facility] TYPE CODE TESTS RESULT OUT OF RANGE REFERENCE UNITS LAB [id number] SODIUM 138 136-145 mmol/L LAB [id number] POTASSIUM 3.8 3.5-5.1 mmol/L Result Comment: Plasma potas sium values may be up to 0.5 mmol/L lower than serum values. LAB [id number] CHLORIDE 110 High 98-107 mmol/L LAB [id number] CARBON DIOXIDE 24 22-29 mmol/L LAB [id number] ANION GAP (HOOKER, CALCULATED) 4 3-13 mmol/L LAB [id number] UREA NITROGEN 9 8-21 mg/dL LAB [id number] CREATININE 0.60 0.57-1.11 mg/dL LAB [id number] GLUCOSE 96 74-100 mg/dL LAB [id number] CALCIUM 7.9 Low 8.4-10.2 mg/dL LAB [id number] AST (SGOT) 14 <34 U/L LAB [id number] ALT 9 <30 U/L LAB [id number] ALKALINE PHOSPHATASE 49 40-150 U/L LAB [id number] ALBUMIN 2.8 Low 3.5-5.0 g/dL LAB [id number] BILIRUBIN, TOTAL 0.2 <1.2 mg/dL LAB [id number] TOTAL PROTEIN 4.9 Low 6.4-8.3 g/dL LAB [id number] GLOMERULAR FILTRATION RATE ML/MIN/1.73 SQ M.PREDICTED >90.0 >60.0 mL/min/1. 73m*2 Result Comment: Calculation based on the Chronic Kidney Disease Epidemiology Collaboration (CKD-EPI) equation refit without adjustment for race Performed By: #### [id number] ### # Tank Wagon Driver: GYPSY DAY ([id number]) [facility] ([address] CBC (HEMOGRAM) Collected: 10/13/2024 1:25 AM Status: F Source: [facility] TYPE CODE TESTS RESULT OUT OF RANGE REFERENCE UNITS LAB [id number] WBC 12.4 High 3.6-10.7 10*3/uL LAB [id number] RBC 3.15 Low 3.80-5.20 10*6/uL LAB [id number] HEMOGLOBIN 9.3 Low 11.7-16.0 g/dL LAB [id number] HEMATOCRIT 28.9 Low 35.0-47.0 % LAB [id number] MCV 91.7 77.0-99.0 fL LAB [id number] MCH 29.5 26.0-34.0 pg LAB [id number] MCHC 32.2 30.5-36.0 % LAB [id number] RDW 13.9 11.5-15.0 % LAB [id number] PLATELET COUNT 227 140-440 10*3/uL LAB [id number] MPV 9.6 9.0-12.7 fL Performed By: #### [id number] ## ## Tank Wagon Driver: GYPSY DAY ([id number]) [facility] ([facility]) [address] 30 Observed: 10/12/2024 6:30 AM Status: COMPLETED Source: [employer] [facility] Problem: Pain - Adult Goal: Verbalizes/displays adequate comfort level or baseline comfort level Outcome: ProgressingProblem: Safety - Adult Goal: Free from fall injury Outcome: ProgressingProblem: Discharge Planning Goal: Discharge to home or other facility with appropriate resources Outcome: ProgressingProblem: Chronic Conditions and Co-morbidities Goal: Patient's chronic conditions and co-morbidity symptoms are monitored and maintained or improved Outcome: Progressing HISTORY AND PHYSICAL NOTE Observed: 10/01 5:56 AM Status: COMPLETED Source: [facility] Attestation signed by Malia Reina MD at 10/12/2024 10:19 PM Hospital Care (Independent): I independently saw and evaluated the patient. I agree with the findings and plan of care as documented in the resident's note. BOARD TURNER H&P Patient Name: Felicita Hastings Patient : 1995 Room[facility]Bed: [facility] A Admission Date/Time: 10/12/2024 3:14 AM Primary Care Physician: Marco Melvin HPI: Felicita Hastings is a 29 y.o. female patient transferred from [place] ED for concern for ovarian hyperstimulation syndrome. Patient recently had an egg retrieval in [place] 24 hours ago, she states that over the past several days leading up to her retrieval she felt bloated, nauseous, and had weight gain. She states that this is the second time that she is gone a retrieval, she had mild OH SS with her last retrieval. She is still tolerating p.o., she is constipated, has not had a bowel movement for the past 2 days, but this is her baseline. She states that at her egg retrieval, they had to go "through my bladder", so she currently has a catheter in and would like it to remain in place due to pain. They sent her home with antibiotics, and Pyridium. Her all her pain is well-controlled she has not required pain medication since admission Surgical history significant for prior in March 2024. REVIEW OF SYSTEMS: A minimum of an eleven point review of systems was completed. 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 [Venlafaxine] Tremors/jittery Latex Rash MEDICATIONS: Current Facility-Administered Medications: acetaminophen (Tylenol) tablet 1,000 mg, 1,000 mg, Oral, q8h, Jade Carmona DO docusate sodium (Colace) capsule 100 mg, 100 mg, Oral, BID, Jade Carmona DO lactated Ringer's infusion, 100 mL/hr, IntraVENous, Continuous, Jade Carmona DO, Last Rate: 100 mL/hr at 10/12/24521, 100 mL/hr at 04/12/25 0522 ondansetron ODT (Zofran-ODT) disintegrating tablet 4 mg, 4 mg, Oral, q8h PRN OR ondansetron (Zofran) injection 4 mg, 4 mg, IntraVENous, q6h PRN, Jade Carmona, DO polyethylene glycol (PEG) 3350 (Miralax) packet 17 g, 17 g, Oral, Daily PRN, Jade Waldropk, DO sodium chloride 0.9 % infusion, 5-250 mL/hr, IntraVENous, PRN, Jade Waldropk, DO sodium chloride 0.9% (NS) flush 5-40 mL, 5-40 mL, IntraVENous, q12h, Jade Carmona, DO, 10 mL at 10/12/24 0400 sodium chloride 0.9% (NS) flush 5-40 mL, 5-40 mL, IntraVENous, PRN, Jade Waldropk, DO SOCIAL HISTORY: Social Connections: Not on file Medications: Current Inpatient Current Facility-Administered Medications Medication Dose Route Frequency Provider Last Rate Last Admin acetaminophen (Tylenol) tablet 1,000 mg 1,000 mg Oral q8h Jade Carmona, DO docusate sodium (Colace) capsule 100 mg 100 mg Oral BID Jade Carmona, lactated Ringer's infusion 100 mL/hr IntraVENous Continuous Jade Carmona, DO 100 mL/hr at 10/12/24 0522 100 mL/hr at 10/12/24 0522 ondansetron ODT (Zofran-ODT) disintegrating tablet 4 mg 4 mg Oral q8h PRN Jade Carmona, Or ondansetron (Zofran) injection 4 mg 4 mg IntraVENous q6h PRN Jade Carmona, DO polyethylene glycol (PEG) 3350 (Miralax) packet 17 g 17 g Oral Daily PRN Jade Carmona, DO sodium chloride 0.9 % infusion 5-250 mL/hr IntraVENous PRN Jade Van Dijck, DO sodium chloride 0.9% (NS) flush 5-40 mL 5-40 mL IntraVENous q12h Jade Van Dijck, DO 10 mL at 10/12/24 0400 sodium chloride 0.9% (NS) flush 5-40 mL 5-40 mL IntraVENous PRN Jade Van Dijck, DO VITALS: BP 102/65 (BP Location: Right arm, Patient Position: Lying) Pulse 97 Temp 36.9 ?C (98.5 ?F) (Temporal) Resp 16 Ht 5' 2" (1.575 m) Wt 186 lb (84.4 kg) SpO2 96% BMI 34.02 kg/m? INPUT/OUTPUT: No intake/output data recorded. PHYSICAL EXAM: Physical Exam Constitutional: General: She is not in acute distress. Appearance: Normal appearance. She is obese. HENT: Head: Normocephalic and atraumatic. Pulmonary: Effort: Pulmonary effort is normal. Abdominal: General: There is distension. Palpations: Abdomen is soft. Tenderness: There is no abdominal tenderness. There is no guarding. Skin: General: Skin is warm and dry. Neurological: General: No focal deficit present. Mental Status: She is alert and oriented to person, place, and time. Psychiatric: Mood and Affect: Mood normal. Behavior: Behavior normal. LAB RESULTS: O Lab Results Component Value Date WBC 8.7 03/13/2024 HGB 12.6 03/15/2024 HCT 38.4 03/13/2024 MCV 88.1 03/13/2024 PLT 282 03/13/2024 No results found for: "NA", "K", "CL", "CO2", "BUN", "CREATININE", "GLUCOSE", CALCIUM Urinalysis: No results found for: "CLARITYU", "COLORU", "PHUR", "SPECGRAV", "PROTEINU", "BLOODU", "BACTERIA", "LEUKOCYTESUR", "YEAST", "GLUCOSEU", BILIRUBINUR DIAGNOSTICS: No results found. ASSESSMENT & PLAN: Felicita Hastings is a 29 y.o. female Ovarian hyperstimulation syndrome -Patient is s/p ovarian stimulation 24 hours ago, has been having increased abdominal distention, nausea -Patient was evaluated at [facility] initially and obtained imaging as stated below, imaging is available on PACS -CT A/P 10/11 no traumatic abdominal aortic injury or retroperitoneal hematoma, markedly enlarged ovaries with numerous ovarian cysts and moderate volume ascites, compatible with ovarian hyperstimulation - CTA 10/11 no traumatic thoracic aortic aneurysm or mediastinal hematoma ectasia of the main pulmonary artery seen in pulmonary hypertension -Patient transferred to [facility] for further management -CBC, CMP, coags collected on admission -Physical exam remarkable for abdominal distention, no significant abdominal pain no rebound, nonsurgical -Discussed paracentesis with patient due to moderate amount of ascites, and symptomatic OHSS -Patient would like to proceed with paracentesis if possible -Daily CBC/CMP -Consider Lovenox after paracentesis -Daily weights -Continue IV fluids, supportive care, pain management -Avoid NSAIDs Please page the [facility] OBGYN Call RES group via Secure Chat for any questions or concerns. Jade Carmona, 10/12/2024, 5:56 AM CBC (HEMOGRAM) Collected: 10/12/2024 5:38 AM Status: F [facility] TYPE CODE TESTS RESULT OUT OF RANGE REFERENCE UNITS LAB [id number] WBC 19.6 High 3.6-10.7 10*3/uL LAB [id number] RBC 3.48 Low 3.80-5.20 10*6/uL LAB 3870871 HEMOGLOBIN 10.1 Low 11.7-16.0 g/dL LAB 0794805 HEMATOCRIT 30.9 Low 35.0-47.0 % LAB 4027938 MCV 88.8 77.0-99.0 fL LAB 1203657 MCH 29.0 26.0-34.0 pg LAB 7955676 MCHC 32.7 30.5-36.0 % LAB 3146346 RDW 13.2 11.5-15.0 % LAB 5471443 PLATELET COUNT 292 140-440 10*3/uL LAB 3489694 MPV 9.5 9.0-12.7 fL LAB 9673277 IPF 2 Performed By: #### [id number] ## ## Tank Wagon Driver: GYPSY DAY ([id number]) [facility] ([facility]) [address] [place] [address] COMPREHENSIVE METABOLIC PANEL Collected: 10/12/2024 5 :38 AM Status: F Source: [facility] TYPE CODE TESTS RESULT OUT OF RANGE REFERENCE UNITS LAB [id number] SODIUM 133 Low 136-145 mmol/L LAB [id number] POTASSIUM 3.6 3.5-5.1 mmol/L Result Comment: Plasma potas sium values may be up to 0.5 mmol/L lower than serum values. LAB 4032868 CHLORIDE 104 98-107 mmol/L LAB 1807885 CARBON DIOXIDE 24 22-29 mmol/L LAB [id number] ANION GAP (HOOKER, CALCULATED) 5 3-13 mmol/L LAB 5961529 UREA NITROGEN 9 8-21 mg/dL LAB 1529465 CREATININE 0.56 Low 0.57-1.11 mg/dL LAB 4890344 GLUCOSE 109 High 74-100 mg/dL LAB 0143464 CALCIUM 8.2 Low 8.4-10.2 mg/dL LAB 0066316 AST (SGOT) 16 <34 U/L LAB 2157656 ALT 11 <30 U/L LAB 7141108 ALKALINE PHOSPHATASE 54 40-150 U/L LAB 6126450 ALBUMIN 3.2 Low 3.5-5.0 g/dL LAB 6635035 BILIRUBIN, TOTAL 0.2 <1.2 mg/dL LAB 7436898 TOTAL PROTEIN 5.4 Low 6.4-8.3 g/dL LAB 8448783 GLOMERULAR FILTRATION RATE ML/MIN/1.73 SQ M.PREDICTED >90.0 >60.0 mL/min/1. 73m*2 Result Comment: Calculation based on the Chronic Kidney Disease Epidemiology Collaboration (CKD-EPI) equation refit without adjustment for race Performed By: #### [id number] ### # Tank Wagon Driver: GYPSY DAY ([id number]) [facility] ([address] PROTIME AND APTT Collected: 10/12/2024 5:38 AM Statu s: F Source: [facility] TYPE CODE TESTS RESULT OUT OF RANGE REFERENCE UNITS LAB [id number] PROTHROMBIN TIME 10.1 9.0-12.0 s LAB 7603088 INR 0.9 0.9-1.1 Result Comment: Recommended Anticoagulant Therapy: SEE BELOW ----- INR of 2.0 - 3.0 : - Prophylaxis of Venous Thrombosis (high-risk surgery) - Treatment of Venous Thrombosis - Treatment of Pulmonary Embolism (Includes tissue heart valves, Acute Myocardial Infarction to prevent systemic embolism, Valvular Heart Disease, and Atrial Fibrillation) ----- INR of 2.5 - 3.5 : - Mechanical Prosthetic Valves (high risk) - If oral anticoagulant therapy is used to prevent Myocardial Infarction LAB [id number] APTT 26.3 20.0-30.5 s Performed By: #### [id number] #### Tank Wagon Driver: GYPSY DAY ([id number]) [facility] ([address] E2 Collected: 10/07/2024 9:26 AM Status: F Source: Consult A Doctor TYPE CODE TESTS RESULT OUT OF RANGE REFERENCE UNITS LAB E2(LOINC) Estradiol Level 1333.35 pg/mL Result Comment: Note - New Reference Range in effect 20 Adult Female E2 Reference Ranges: Follicular phase 19.5 - 144.2 pg/mL Midcycle 63.9 - 356.7 pg/mL Luteal phase 55.8 - 214.2 pg/mL Post menopausal 0 - 33.2 pg/mL Performed By: #### PROG, E2, LH #### [address] [address] LH Collected: 9:26 AM Status: F Source: [facility] A [facility] TYPE CODE TESTS RESULT OUT OF RANGE REFERENCE UNITS LAB LH(LOINC) LH 3.9 mIU/mL Result Comment: Note - New Reference Range in effect 20 Adult Female LH Reference Ranges: Follicular phase 1.9 - 12.5 mIU/mL Midcycle phase 8.7 - 76.3 mIU/mL Luteal phase 0.5 - 16.9 mIU/mL Post menopausal 5.0 - 55.2 mIU/mL Performed By: #### PROG, E2, LH #### [address] [address] PROG Collected: 10/07/2024 9:26 AM Status: F Source: Consult A Doctor TYPE CODE TESTS RESULT OUT OF RANGE REFERENCE UNITS LAB PROG(LOINC) Progesterone Level 0.9 ng/mL Result Comment: Adult Female Progesterone Reference Ranges: Follicular phase <0.21 - 1.40 ng/mL Luteal phase 3.34 - 25.56 ng/mL Mid-Luteal phase 4.44 - 28.03 ng/mL Postmenopausal <0.21 - 0.73 ng/ml Female: First trimester 11.22 - 90.00 ng/ml Second trimester 25.55 - 89.40 ng/ml Third trimester 48.40 - 422.50 ng/ml Performed By: #### PROG, E2, LH #### [place] [address] PROGRESS NOTE Observed: 05/14/2024 8:30 AM Status: COMPLETED Source: [facility] Visit This is a telemedicine video visit requested by the patient/guardian that was performed with the patient's location at home and the provider's location at office. Subjective: Felicita Hastings is a 28 y.o. female who presents for a follow up visit per pt request due to mental health concerns. She is 8 weeks following a delivery low transverse. I have fully reviewed the and intrapartum course. The delivery was at 30 gestational weeks. Delivering Provider: Wendi Aguilar MD. course has been complicated by NICU stay, baby now home. Baby is feeding by pumped breastmilk and bottle. Bleeding no bleeding. Bowel function is normal. Bladder function is normal. Patient's medications, allergies, past medical, surgical, , social, and family histories were reviewed and updated as appropriate. She is unaccompanied. Review of Systems Psychiatric/Behavioral: Positive for sleep disturbance. Negative for self-injury and suicidal ideas. The patient is nervous/anxious. All other systems reviewed and are negative. Pt concerned she is not feeling herself since delivery, feelings have increased over the past few weeks as baby is now home. Pt was hoping once she was home things would improve. Pt states she is not sleeping well since the baby is not sleeping, they have just gotten a new bassinet. FOB is supportive and helpful as well as has family in the area for support. Pt denies SI, HI. Discussed going to ER for immediate assistance if needed. Objective: There were no vitals taken for this visit. Physical Exam Nursing note and vitals reviewed. Constitutional: Appearance: She is well-developed and well-nourished. Pulmonary: Effort: Pulmonary effort is normal. Musculoskeletal: General: Normal range of motion. Neurological: Mental Status: She is alert and oriented to person, place, and time. Psychiatric: Mood and Affect: Mood and affect normal. Behavior: Behavior normal. Thought Content: Thought content normal. Judgment: Judgment normal. Comments: Pt is well groomed and hair is fixed Assessment/Plan: Mental health concern- Discussed self-care and rest as able. Encouraged pt letting family assist as they are able. Support and reassurance given. Discussed meeting with [facility] and pt has appt via telehealth tomorrow, encouraged pt to schedule regularly. Discussed med start, pt would appreciate. Pt has used zoloft in the past with benefit, does not remember dose. Rx sent for zoloft 25 mg with refills, encouraged pt to schedule with PCP after first of year for continued refills. Reminded pt to report to ER with any immediate concerns, pt verbalizes understanding. Precautions reviewed Pt to follow up with [facility] as scheduled The total time spent on patient care today 05/14/2024 was 20 minutes. -10 minutes direct patient care -10 minutes chart review and documentation PROGRESS NOTE Observed: 04/25/2024 10:00 AM Status: COMPLETED Source: [facility] Visit Subjective: Felicita Hasitngs is a 28 y.o. female who presents for a visit. She is 6 weeks following a delivery low transverse. I have fully reviewed the and intrapartum course. The delivery was at 30 gestational weeks. Delivering Provider: Wendi Aguilar MD. course has been complicated by NICU stay. Baby is feeding by pumped breastmilk. Bleeding no bleeding. Bowel function is normal. Bladder function is normal. Patient is not sexually active. Contraception method is condoms. depression screening: negative. Patient's medications, allergies, past medical, surgical, , social, and family histories were reviewed and updated as appropriate. She is unaccompanied. Felicita denies any cramping, contractions, vaginal bleeding, unusual or increase in vaginal discharge, signs and symptoms of pre-eclampsia, or leaking of any fluid. Patient with positive movement. Review of Systems All other systems reviewed and are negative. Objective: BP 114/71 Pulse 70 Resp 20 Ht 157.5 cm Wt 82.5 kg (181 lb 14.4 oz) SpO2 98% BMI 33.27 kg/m Physical Exam Nursing note and vitals reviewed. Constitutional: Appearance: She is well-developed and well-nourished. Pulmonary: Effort: Pulmonary effort is normal. Abdominal: Comments: gravid Musculoskeletal: General: Normal range of motion. Neurological: Mental Status: She is alert and oriented to person, place, and time. Skin: General: Skin is warm and dry. Psychiatric: Mood and Affect: Mood and affect normal. Behavior: Behavior normal. Incision well healed Assessment/Plan: Normal exam. 1. Contraception: condoms 2. GDM- 2 hour gtt completed WNL 3. Follow up with [facility] [employer] [facility] as scheduled for routine well woman care 4. Discussed precon consult with future with MFM if desired The total time spent on patient care today 04/25/2024 was 30 minutes. -15 minutes direct patient care -15 minutes chart review and documentation GTT 2 HOUR Collected: 4 10:29 AM Status: F Source: [facility] Order Comment: Release to bahman auguste->Automatic TYPE CODE TESTS RESULT OUT OF RANGE REFERENCE UNITS LAB 2345-7 Glucose, 2 Hour GTT 101 >49-<140 mg/dL Result Comment: Criteria for Diagnosis of Diabetes (2HR Challenge): Fasting specimen (No caloric intake for at least 8 hours.) <100 mg/dL Normal 100-125 mg/dL Increased Risk for Diabetes >125 mg/dL Diagnostic for Diabetes 2 Hour Specimen (Post glucose administration.) < or =139 mg/dL Normal 140-199 mg/dL Increased Risk for Diabetes > or =200 mg/dL Diagnostic for Diabetes Performed By: #### GTT 2 ESPINOZA R #### LUCIA [employer] ([id number]) [employer]) [address] GTT FASTING Collected: 4 8:28 AM Status: F Source: [facility] Order Comment: Release to bahman mendietant->Automatic TYPE CODE TESTS RESULT OUT OF RANGE REFERENCE UNITS LAB 1558-6 GLUCOSE, FASTING 86 >49-<100 mg/dL Result Comment: Verified By: [id number] Performed By: #### GTT FASTI NG #### LUCIA Weever AppsOTILIA W ([id number]) [employer]) [place] [address] [place] ALLERGIES DATE TYPE / CODE NAME / CODE REACTION SEVERITY SOURCE 03/06/2024 DRUG INGREDI/5553713 03(SNOMED CT) LATEX Low [facility] 12/19/2018 DRUG INGREDI/7158484 03(SNOMED CT) VENLAFAXINE Tremors and muscle spasms Tremors/jittery [facility] 09/21/2001 DRUG INGREDI/7371473 03(SNOMED CT) AZITHROMYCIN 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 Kaiser Robbi sy High [facility] ENCOUNTERS ADMIT/DISCHARGE ACCOUNT NUMBER ADMITTING ENCOUNTER CLASS LOCATION SOURCE 03/12/2025/03/12/20 [id number] Ambulatory ABuilding:[facility] 03/10/2025/03/10/20 [id number] Ambulatory ABuilding:[facility] 03/07/2025/03/07/20 [id number] Ambulatory ABuilding:[facility] 02/28/2025/02/29/20 [id number] Ambulatory ABuilding:[facility] 10/12/2024/10/14/19 [id number] KYLER COVARRUBIAS Inpatient Encounter Buildin [id number]: [place] [address]Bed: [address] 10/07/2024/10/08/19 [id number] Ambulatory ABuilding:[facility] 05/15/2024/05/15/20 [id number] Ambulatory Building:[facility] 05/14/2024/05/14/20 24 [id number] Ambulatory Building:[facility] 05/07/2024/05/07/20 24 [id number] Ambulatory Building:[facility]IC[facility] 04/25/2024/04/25/20 24 [id number] Ambulatory Building:[facility] 04/10/2024/04/10/20 24 [id number] Ambulatory Building:LAB BERE [facility] PAYERS ENCOUNTER GUARANTOR PAYER SUBSCRIBER SOURCE 03/12/2025 [facility] [place] [place] [address] Primary Insurance:ANTHEM BLUE CROSS INSCOPolicy Number: [id number] tive Date:3466-71-98Ssfu Name:[facility] [place] [address]JN: [facility]STO [facility]: [id number] [place], [place] [address]Lgj: (HP) (WP) [facility] 03/10/2025 [facility]OLBY [facility] [place] [address] Primary Insurance:ANTHEM BLUE CROSS INSCOPolicy Number: [id number] tive Date:1501-99-22Gihf Name:[facility] GABRIELLA Jaquez416773I[place] [address]NJ: [facility]ST[facility]: [id number] [place], [place] [address]Fbs: (HP) (WP) [facility] 03/07/2025 [facility]OLBY [facility] [place] [address] Primary Insurance:ANTHEM BLUE CROSS INSCOPolicy Number: [id number] tive Date:1949-88-20Oqfq Name:[facility] [place] [address]FI: [facility]ST[facility]: [id number] [place], [place] [address]Nxb: (HP) (WP) [facility] 02/28/2025 [facility] ERB: [place] [address] Primary Insurance:[employer]HE[employer] BLUE CROSS INSCOPolicy Number: [id number] tive Date:3143-97-12Fwne Name:O [place] [address], [place] [address]FS: ERASTO RAMOSSNEEDVILLEDOB: [id number] [place], [place] [address]Gmf: (HP) (WP) [facility] 10/12/2024 Primary Insurance:AULTCAREPo licy Number: [id number] ve Date:0871-92-64Iole Name:Commercial FELICITACOLBY RAMOSSNEEDVILLEDOB: [id number] [place], [place] [id number] [place] [address] 10/07/2024 FELICITACOLBY RAMOSSNEEDVILLEDOB: [place] [address] Primary Insurance:AULTCARE INSCOPolicy Number: [id number] ve Date:8617-13-29Gpal Name:[facility] GABRI[place]LLA [address], [place] [address]IB: FELICITA RAMOSSNEEDVILLEDOB: [id number] [place], [place] [address]Syb: (WP) [facility] 05/15/2024 FELICITA RAMOSSNEEDVILLEDOB: [place], [place] [address]Iau: ~([phone] (HP) Primary Insurance:AULTCAREPo licy Number: [id number] ve Date: FELICITA LONNY RICHARDSNEEDVILLEDOB: [id number] [place] [address] [facility] 05/14/2024 FELICITA RAMOSSNEEDVILLEDOB: [place], [place] [address]Cjt: ~([phone] (HP) Primary Insurance:AULTCAREPo licy Number: [id number] ve Date: FELICITA [facility]ENTERB: [id number] [place] [address] [facility] 05/07/2024 FELICITA HASTINGSB: [place], [place] [address]Trj: ~[phone] (HP) Primary Insurance:AULTCAREPo licy Number: [id number] ve Date: FELICITA HASTINGSB: [id number] [place] [address] [facility] 04/25/2024 [facility]: [place], [place] [address]Yjy: ~([phone] (HP) Primary Insurance:AULTCAREPo licy Number: [id number] ve Date: FELICITA HASTINGSB: [id number] [place] [address] [facility] 04/10/2024 F[facility]ICITA [facility]ENTER[facility]: [place], [place] [address]Jdf: ~[phone] (HP) Primary Insurance:AULTCAREPo licy Number: [id number] ve Date: FELICITA [facility]ENTERB: [id number] [place] [address] [facility]
[2025-03-31 09:04] LABS: hCG Titer Quant., Serum 41 mIU/mL (<9 non-preg)
[2025-04-01 04:07] LABS: PROGESTERONE 36.7 ng/mL (.)
== END | disposition home or self-care (01) ==
LOC: LAB 07:12
PROVIDERS: Referring Provider Obstetrics & Gynecology Reproductive Endocrinology; Visit Provider Obstetrics & Gynecology Reproductive Endocrinology
DX: Z32.01 Encounter for pregnancy test, result positive (principal)
CPT/HCPCS: 36415; 82670; 84144; 84443; 84702

== ENCOUNTER → 2025-04-02 | Outpatient (CLI) | payer BC, SELFPAY ==
[2025-04-02 08:55] LABS: hCG Titer Quant., Serum 15 mIU/mL (<9 non-preg)
[2025-04-03 04:07] LABS: PROGESTERONE 30.0 ng/mL (.)
== END | disposition home or self-care (01) ==
LOC: LAB 07:26
PROVIDERS: Referring Provider Obstetrics & Gynecology Reproductive Endocrinology; Visit Provider Obstetrics & Gynecology Reproductive Endocrinology
DX: O02.81 Inappropriate change in quantitative human chorionic gonadotropin (hCG) in early pregnancy (principal)
CPT/HCPCS: 36415; 82670; 84144; 84702

== ENCOUNTER → 2025-06-23 | Outpatient (CLI) | payer BC, SELFPAY ==
--- NOTE | 2025-06-23 10:46 | US_ITS ---
PROCEDURE: TRANSVAGINAL W/PREG US 06/23/2025 REASON FOR EXAM: Check for viability. TECHNIQUE: Procedure Code: USTVAGP Modality: US Procedure: TRANSVAGINAL W/PREG US COMPARISON: No relevant prior. FINDINGS Number: Fetus not visualized. Uterus: 8.0 x 4.2 x 3.6 cm. A small 1.0 cm hypoechoic area in the body of the uterus. Right ovary: 3.2 x 2.7 x 1.8 cm. Left ovary: 3.2 x 3.1 x 1.8 cm. Endometrial cavity: 0.8 cm in thickness. Cul-de-sac: No fluid. US/Transvaginal w/Preg US IMPRESSION: 1. No signs of an intrauterine fetus. 2. Small hypoechoic area in the body of the uterus may represent a small leiom yoma. Reading Location: [place] [address]
== END | disposition home or self-care (01) ==
LOC: US 10:43
PROVIDERS: Referring Provider Obstetrics & Gynecology Reproductive Endocrinology; Visit Provider Obstetrics & Gynecology Reproductive Endocrinology
DX: O09.00 Supervision of pregnancy with history of infertility, unspecified trimester (principal); Z3A.00 Weeks of gestation of pregnancy not specified
CPT/HCPCS: 76817

== ENCOUNTER 2025-06-27 16:53 | Emergency (ER) | payer BC, SELFPAY ==
[2025-06-27 16:53] VITALS: BP 131/89; PULSE 120; RESP 16; TEMP 36.3; O2SAT 97; BMI 32.2
--- OUTSIDE RECORDS SUMMARY | 2025-06-27 18:38 | XMS RPT_ITS | CCD ---
Author Organization [facility] [employer] [facility] Care Team Providers Care Reservoir Engineering Consultant Name Role Phone Zbigniew Matta MD Primary Care Provider CHERYL Melvin Primary Care Provider CHERYL Melvin Referring Provider Dr. Julianna Newman Attending Provider [phone] Dr. Julianna Newman Referring Provider [phone] Dr. Julianna Newman Other Provider CHERYL Melvin Primary Care Provider [phone] Dr. Julianna Newman Attending Provider [phone] CHERYL Melvin Referring Provider Marco Melvin PA-C Unavailable Gastroenterology Provider Unavailable UnavaFederico Parra PA-C Unavailable Chelesa Paez MA Unavailable Unavailable Maryellen Reyes LPN Unavailable Unavailable Natalia DUENAS, Nandini Corona Unavailable Unavaila janusz Mar LPN, Alysia Unavailable Unavailable Minesh AMEZQUITA, Chin Unavailable Unavailable Unavailable Unavailable CHERYL Melvin Primary Care Provider CHERYL Melvin Referring Provider Dr. Julianna Newman Attending Provider [phone] Dr. Venessa Newby Attending Provider [phone] Juancarlos WOOL HAT FORMING MACHINE TENDER, AMY Benz Attending Provider [phone] Natalie Hopkins MA Unavailable Unavailable Unavailable Primary Care Provider UnavailJeff Stevens MD Primary Care Provider [phone] LUCILA HO Attending Unavailable BAY, JEFF Primary [...] Care Provider Marco Morales Referring Provider Adrián WOOL HAT FORMING MACHINE TENDER-CLilly Attending Provider Adrián WOOL HAT FORMING MACHINE TENDER-CLilly Referring Provider Dr. Julianna Newman DO Attending Provider Dr. Julianna Newman DO Referring Provider Dr. Yola Schaffer MD Other Provider Dr. Fern Marroquin DO Emergency Provider Duane Marco Primary Care Provider BARAK COVARRUBIAS Admitting Unavailable BARAK COVARRUBIAS Attending Unavailable NONE, PCP Referring Unavailable MELVIN, MARCO Primary Care Unavailable GAVINO, SAUMYA Admitting Unavailable REKHA ROD Consulting Unavailable CHRISTIANO AU Attending Unavailable Sadiq GATES, Dr. Doty Emergency Provider Duane LUNA, Marco Primary Care Provider [phone] Marco Morales Referring Provider Dr. Julianna Newman [...] Care Unavailable Julianna Newman Attending Unavailabl e Juilanna Newman Referring Unavailabl e Ungur, Remus Attending Unavailable Melvin, Marco Primary Care Unavailable Melvin, Marco Primary Care Unavailable Fortune WOOL HAT FORMING MACHINE TENDER, Angelica Attending Unavailable Fortune WOOL HAT FORMING MACHINE TENDER, Angelica Referring Unavailable Kiltz, Yola Referring Unavailable [...] Other (See Comments), Shortness Of Breath, Swelling [facility] Work Phone: (20 sources) venlafaxine; Translations: [VENLAFAXINE] Drug Allergy 9 Other: See Comments, Other (See Comments) [facility] Work Phone: (20 sources) Zithromax *MACROLIDES* [facility] (9 sources) natural latex rubber Allergy to substance 4 Other [facility] Comment on above: Blisters with Bandai d use (5 sources) Latex; Translations: [LATEX] Propensity to adverse reactions 4 [facility] (1 source) Latex Propensity to adverse reactions 4 [facility] (1 source) Azithromycin Drug Allergy 5 [facility] Repository (1 source) natural latex rubber Drug allergy (disorder) 5 [facility] Repository (1 source) venlafaxine Drug Allergy 5 [facility] Repository Medications Current Medications Medication Drug Class(es) [...] 2023 1:00am October 03, 2023 11:24am Multivit 65-Dwea-Sjnjkh 1-Dh a (Pnv-Dha) 27 mg iron-1 mg -300 mg capsule (20 sources) Start: 01-14-2025 Start: 01-14-2025 Multivit 47-Ir on-Folate 1-Dha (Pnv-Dha) 27 mg iron-1 mg -300 mg capsule Active 1 NMA PO DAILY 90 January 14, 2025 10:44am Start: 01-14-2025 End: 01-14-2025 Multivit 30-Ipeb-Cczfth 1-Dh a (Pnv-Dha) 27 mg iron-1 mg -300 mg capsule Discontinued 1 NMA PO DAILY 90 January 14, 2025 10:21am January 14, 2025 10:45am Start: 12-15-2023 End: 01-14-2025 Multivit 79-Oonj-Lclxyx 1-Dh a (Pnv-Dha) 27 mg iron-1 mg -300 mg capsule Discontinued 1 NMA PO DAILY 30 December 15, 2023 12:41pm January 14, 2025 10:21am Start: 12-15-2023 Multivit 47-Ir on-Folate 1-Dha (Pnv-Dha) 27 mg iron-1 mg -300 mg capsule Active 1 NMA PO DAILY December 15, 2023 12:41pm Start: 10-03-2023 End: 12-15-2023 Multivit 53-Bydi-Rkvpuk 1-Dh a (Pnv-Dha) 27 mg iron-1 mg -300 mg capsule Discontinued NMA PO October 03, 2023 12:00am December 15, 2023 12:42pm Start: 10-03-2023 Multivit 47-Ir on-Folate 1-Dha (Pnv-Dha) 27 mg iron-1 mg -300 mg capsule Active CAP PO October 03, 2023 12:00am Multivit Skf-Fxio-We-Herb 186 (Hair, Skin And Nails Advanced) 3.3 mg iron-25 mcg Tablet (1 source) Start: 08-20-2021 Multivit Xmf-Jwxt-Tu-Herb 186 (Hair, Skin And Nails Advanced) 3.3 mg iron-25 mcg Tablet Active 1 TABLET PO DAILY August 20, 2021 1:00am Naltrexone (20 sources) Opioid Antagonist Start: 03-06-2025 take 1 capsule by mouth once daily Start: 03-06-2025 take 1 capsule by mo [facility] once daily Naltrexone 1.5 mg capsule Active [...] mcg ; (28 mg iron- 800 mcg) XEU-LXVRPOEX-FIKH-FA PO (1 source) Start: 08-03-2023 QBC-BNIZOGTW-UDOZ-FA PO daily 08/03/2023 Active Completed/Discontinued Medications Medication [...] Glucose Scanning Reade r (Freestyle Lexi 2 Randolph) misc (6 sources) Start: 02-28-2024 End: 03-06-2025 Flash Glucose Scanning Reade r (Freestyle Lexi 2 Randolph) misc Discontinued 0 .Route 1 0 February 28, 2024 12:00am March 06, 2025 2:43pm As directed Start: 02-28-2024 Flash Glucose Scanning Randolph (Freestyle Lexi 2 Randolph) misc Active 0 .Route 1 February 28, [...] Start: 04-13-2020 take 2 tablets by [facility] once daily letrozole (FEMARA) 2.5 mg tablet Take 2 tablets by mouth once daily. 10 tablet 2 04/13/2020 Active Comment on above: Take 2 tablets by [facility] once daily. 500 ml magnesium sulfate [...] 2024 12:00am March 06, 2025 2:43pm Pnv No.63-Iron,Lndttqlt-Tr-M mercedes (16 sources) Start: 12-14-2022 End: 09-08-2023 take 1 capsule by mouth once daily Pnv No.63-Iron,Yweiuguf-Xh-Aoq Discontinued 1 CAP PO DAILY December 14, 2022 12:00am September 08, 2023 2:16pm Start: 12-14-2022 take 1 capsule by [facility] once daily Pnv No.63-Iron,Nlhismis-Il-Yut Active 1 CAP PO DAILY December 13, 2022 11:00pm Start: 12-14-2022 take 1 capsule by mo uth once daily Pnv No.63-Iron,Jylcyejx-Vb-Auo Active 1 CAP PO DAILY December 14, 2022 12:00am Pnv No.63-Iron,Qnlscome-Vx-I mercedes 27 mg iron- 800 mcg-200 mg capsule (6 sources) Start: 12-14-2022 End: 09-08-2023 Pnv No.63-Iron,Ubkdzupg-El-D mercedes 27 mg iron- 800 mcg-200 mg capsule Discontinued 1 NMA PO DAILY 90 December 14, 2022 12:00am September 08, 2023 2:16pm Start: 12-14-2022 End: 09-08-2023 Pnv No.63-Iron,Wngokogb-Kv-E mercedes 27 mg iron- 800 mcg-200 mg capsule Discontinued 1 NMA PO DAILY December 14, 2022 12:00am September 08, 2023 2:16pm PNV no.95/ferrous fum/folic ac ( ORAL) (1 source) PNV no.95/ferrou s fum/folic ac ( ORAL) Take by mouth. 0 Active Comment on above: Take by mouth. Jhn700-Wpga-Fo-Y1-Vsj-Sts-T magy [Pnv No.151-Iron 27 Mg-Folic 800 Mcg-Omega3 260 Pv-Qrp-Zkl-Fish Capsule] (Pnv No.151-Iron 27 Mg-Folic 800 Mcg-Omega3 260 ) 27 mg iron-800 mcg-260 mg capsule (6 sources) Start: 10-11-2024 End: 01-14-2025 Fgx934-Ejnr-Um-I3-Fed-Yvt-R magy [Pnv No.151-Iron 27 Mg-Folic 800 Mcg-Omega3 260 Js-Hza-Lxf-Fish Capsule] (Pnv No.151-Iron 27 Mg-Folic 800 Mcg-Omega3 260 ) 27 mg iron-800 mcg-260 mg capsule Discontinued 1 NMA PO DAILY October 11, 2024 12:00am January 14, 2025 10:21am Start: 10-11-2024 Qur970-Kbax-Bv -J3-Cqn-Emh-Fish [Pnv No.151-Iron 27 Mg-Folic 800 Mcg-Omega3 260 We-Fox-Xtm-Fish Capsule] (Pnv No.151-Iron 27 Mg-Folic 800 Mcg-Omega3 260 ) 27 mg iron-800 mcg-260 mg capsule Active 1 NMA PO DAILY October 11, 2024 12:00am polyethylene glycol 3350 46128 mg powder for oral solution (2 sources) Osmotic Laxative Start: 10-12-2024 End: 10-13-2024 take 17 g by mouth every twenty-four hours as needed for constipation polyethylene glycol 3350 432126 mg / potassium chloride 2970 mg / sodium bicarbonate 6740 mg / sodium chloride 5860 mg / sodium sulfate 40421 mg powder for oral solution (5 sources) Osmotic Laxative Start: 10-14-2024 End: 03-06-2025 Peg 3350-Electrolytes (Golytely) 236-22.74-6.74 -5.86 gram recon soln Discontinued 240 mL PO EVERY 10 MINUTES NEEDED 4000 0 October 14, 2024 12:00am March 06, 2025 2:43pm until fecal effluent is clear Vit,Kalpesh 22-Ruiq-Fcdjc (Prenatabs Fa) 29-1 mg Tablet (4 sources) Start: 08-20-2021 End: 10-14-2022 Vit,Kalpesh 24-Uwun-Jwxmm (Prenatabs Fa) 29-1 mg Tablet Discontinued 1 {tbl} PO DAILY August 20, 2021 1:00am October 14, 2022 2:49pm Vit,Xego12-Xofz-Fak ic (Prenatabs Fa) 29-1 mg Tablet (20 sources) Start: 08-20-2021 End: 10-14-2022 Vit,Uybm33-Wzgw-Vs lic (Prenatabs Fa) 29-1 mg Tablet Discontinued 1 {tbl} PO DAILY August 20, 2021 1:00am October 14, 2022 2:49pm Start: 08-20-2021 End: 10-14-2022 take 1 tablet by mouth once daily Vit,Qrpx39-Vgqd-Dtkfx (Prenatab s Fa) 29-1 mg Tablet Discontinued 1 TABLET PO DAILY August 20, 2021 12:00am October 14, 2022 1:49pm Start: 08-20-2021 End: 10-14-2022 take 1 tablet by mouth once daily Vit,Fdbv62-Iegw-Dtfhl (Prenatab s Fa) 29-1 mg Tablet Discontinued 1 TABLET PO DAILY August 20, 2021 1:00am October 14, 2022 2:49pm Start: 08-20-2021 take 1 tablet by isabel th once daily Vit,Eohr76-Idoj-Gpgzk (Prenatab s Fa) 29-1 mg Tablet Active [...] 10-11-2024 Episodic Comment on above: patient at [facility] for paracentesis- 10/11/24-10/13/24 Contraceptive and procreative management [...] unspecified trimester] 10-03-2023 Episodic Comment on above: [id number], GERALD 4per [facility], Rene Other complications of [...] night from coughing ALONSO 04/26/22 BISHNU mack [facility] 05-12-2022 Unclassified (20 sources) Cold Symptoms [...] an individual with similar symptoms (works at [employer]), but has not been exposed to an individual with strep or secondhand smoke. Medical history includes tonsillectomy, but patient denies history of seasonal allergies, recurrent sinusitis, recurrent strep pharyngitis, asthma or recurrent ear infections. Note for Upper respiratory infection: pt did an at home covid test yesterday -- negativeshe did have tessalon perles on hand from [facility] and starting using them today - [...] FSH, TSH, E2, FT3, LH, FT4 #### [place] [address] #### HCG #### [facility] [address] [place] [id number] FSHon 05-12-2025 FSH 5.4 mIU/mL Normal [facility] Comment on above: Result Comment: Adul t Female FSH Reference Ranges (05/26/99): Follicular phase 2.5 - 10.2 mIU/mL Midcycle phase 3.4 - 33.4 mIU/mL Luteal phase 1.5 - 9.1 mIU/mL Post menopausal 23.0 -116.3 mIU/mL Adult Male: 1.4 - 18.1 mIU/mL Performed By: #### P LATRICE, E2, LH #### [place] [address] FT3on 05-12-2025 Free T3 [Mass/Vol] 3.66 pg/mL Normal 2.30-4.20 [facility] Comment on above: Performed By: #### P LATRICE, E2, LH #### [place] [address] FT4on 05-12-2025 Free T4 [Mass/Vol] 1.13 ng/dL Normal 0.89-1.76 [facility] Comment on above: Result Comment: No te - New Reference Range in effect 20 Performed By: #### P LATRICE, FSH, TSH, E2, FT3, LH, FT4 #### [place] [address] #### HCG #### [facility] [address] [place] [id number] HCGon 05-12-2025 hCG, quantitative <1.0 Normal [facility] Comment on above: Performed By: #### P LATRICE, FSH, TSH, E2, FT3, LH, FT4 #### [address] [address] #### HCG #### [facility] [address] [place], [place] [address] Date of LMP Normal [facility] Comment on above: Performed By: #### P LATRICE, FSH, TSH, E2, FT3, LH, FT4 #### [address] [address] #### HCG #### [facility] [address] [place], [place] [address] LHon 05-12-2025 LH 4.0 mIU/mL Normal [facility] Comment on above: Result Comment: No te - New Reference Range in effect 20 Adult Female LH Reference Ranges: Follicular phase 1.9 - 12.5 mIU/mL Midcycle phase 8.7 - 76.3 mIU/mL Luteal phase 0.5 - 16.9 mIU/mL Post menopausal 5.0 - 55.2 mIU/mL Performed By: #### P LATRICE, E2, LH #### [place] [address] PROGon 05-12-2025 Progesterone Level <0.2 Normal [facility] [...] By: #### P LATRICE, E2, LH #### [place] [address] TSHon 05-12-2025 TSH 2.375 mIU/mL Normal 0.550-4.780 [facility] Comment on above: Performed By: #### P LATRICE, FSH, TSH, E2, FT3, LH, FT4 #### [address] [address] #### HCG #### [facility] [address] [place], [place] [address] PREG SERUM QUANTon 5 HCG QUANTITATIVE 2 Normal [facility] Comment on above: Result Comment: [...] 3RD TRIMESTER 1000-50,000 Performed By: #### 2 [address] #### [facility],[address] [place] [address] PROGESTERONE 4317on 04-03-20 25 PROGESTERONE 30.0 ng/mL Normal . [facility] Comment on above: Order Comment: N Result Comment: Foll icular phase 0.1 - 0.9 Luteal phase 1.8 - 23.9 Ovulation phase 0.1 - 12.0 First trimester 11.0 - 44.3 Second trimester 25.4 - 83.3 Third trimester 58.7 - 214.0 Postmenopausal 0.0 - 0.1 Performed at: [facility] [id number] [employer] Set Up Technician: Heri Louis PhD, Phone: [phone] Performed By: #### L 500.1914, L100.0100, L342.8348 #### [facility] [address] [place], [address] Estradiolon 04-02-2025 ESTRADIOL 340.0 pg/mL Normal [facility] Comment on above: Result Comment: FEMA LES [...] By: #### L 500.2500, L100.0100, L700.6800 #### [facility] [address] [place], [place], [address] Serum human chorionic gonado tropin detection for pregnancyOrdered By: Yola Schaffer on 04-02-2025 HCG ( test) Ql 15 mIU/mL High <9 [facility] Comment on above: Gestational Age0.2-1 Week: 5-50 mIU/mL1-2 Weeks: 50-500 mIU/mL2-3 Weeks: 100-5000 mIU/mL3-4 Weeks: 500-10,000 mIU/mL4-5 Weeks:1000-50,000 mIU/mL5-6 Weeks: 10,000-100,000 mIU/mL6-8 Weeks: 15,000-200,000 mIU/mL2-3 Months:10,000-100,000 mIU/mL Serum or plasma estradiol me asurement after follitropin dose (mass/volume)Ordered By: Yola Schaffer on 04-02-2025 E2 post dose follitropin [Mass/Vol] 340.0 pg/mL [facility] Comment on above: FEMALES ADULT FEMALE : [...] HCG QUANT. 15 mIU/mL High <9 non-preg [facility] Comment on above: Result Comment: Gest ational Age 0.2-1 Week: 5-50 mIU/mL 1-2 Weeks: 50-500 mIU/mL 2-3 Weeks: 100-5000 mIU/mL 3-4 Weeks: 500-10,000 mIU/mL 4-5 Weeks:1000-50,000 mIU/mL 5-6 Weeks: 10,000-100,000 mIU/mL 6-8 Weeks: 15,000-200,000 mIU/mL 2-3 Months:10,000-100,000 mIU/mL Performed By: #### L 500.2500, L100.0100, L700.6800 #### [facility] [address] [place], [address] PROGESTERONE 4317on 04-01-20 PROGESTERONE 36.7 ng/mL Normal . [facility] Comment on above: Order Comment: N Result Comment: Foll icular phase 0.1 - 0.9 Luteal phase 1.8 - 23.9 Ovulation phase 0.1 - 12.0 First trimester 11.0 - 44.3 Second trimester 25.4 - 83.3 Third trimester 58.7 - 214.0 Postmenopausal 0.0 - 0.1 Performed at: - [facility] [id number] [employer] Set Up Technician: Heri Louis PhD, Phone: [phone] Performed By: #### L 500.2500, L100.0100, L700.6800 #### [facility] [address] [place], [place], [id number] Estradiolon 03-31-2025 ESTRADIOL 575.0 pg/mL Normal [facility] Comment on above: Result Comment: FEMA LES [...] By: #### L 500.2500, L100.0100, L700.6800 #### [facility], [address] Serum human chorionic gonado tropin detection for pregnancyOrdered By: Yola Schaffer on 03-31-2025 HCG ( test) Ql 41 mIU/mL High <9 [facility] Comment on above: Gestational Age0.2-1 Week: 5-50 mIU/mL1-2 Weeks: 50-500 mIU/mL2-3 Weeks: 100-5000 mIU/mL3-4 Weeks: 500-10,000 mIU/mL4-5 Weeks:1000-50,000 mIU/mL5-6 Weeks: 10,000-100,000 mIU/mL6-8 Weeks: 15,000-200,000 mIU/mL2-3 Months:10,000-100,000 mIU/mL Serum or plasma estradiol me asurement after follitropin dose (mass/volume)Ordered By: Yola Schaffer on 03-31-2025 E2 post dose follitropin [Mass/Vol] 575.0 pg/mL [facility] Comment on above: FEMALES ADULT FEMALE : [...] on 03-31-2025 TSH Qn 1.610 uIU/mL 0.300-4.200 [facility] Thyroid Stim Hormone (TSH)on 03-31-2025 TSH 1.610 uIU/mL Normal 0.300-4.200 [facility] Comment on above: Performed By: #### L 500.2500, L100.0100, L700.6200 #### [facility] [address] [place], [place], [id number] hCG Titer Quant., Serumon HCG QUANT. 41 mIU/mL High <9 non-preg [facility] Comment on above: Result Comment: Gest ational Age 0.2-1 Week: 5-50 mIU/mL 1-2 Weeks: 50-500 mIU/mL 2-3 Weeks: 100-5000 mIU/mL 3-4 Weeks: 500-10,000 mIU/mL 4-5 Weeks:1000-50,000 mIU/mL 5-6 Weeks: 10,000-100,000 mIU/mL 6-8 Weeks: 15,000-200,000 mIU/mL 2-3 Months:10,000-100,000 mIU/mL Performed By: #### L 500.2500, L100.0100, L700.6800 #### [facility] [address] [place], [address] PROGESTERONE 4317on 03-29-20 25 PROGESTERONE 42.6 ng/mL Normal . [facility] Comment on above: Order Comment: N Result Comment: Foll icular phase 0.1 - 0.9 Luteal phase 1.8 - 23.9 Ovulation phase 0.1 - 12.0 First trimester 11.0 - 44.3 Second trimester 25.4 - 83.3 Third trimester 58.7 - 214.0 Postmenopausal 0.0 - 0.1 Performed at: [facility] [address] [id number] [employer] Set Up Technician: Heri Louis PhD, Phone: [phone] Performed By: #### L 500.3017, L100.2915, L573.6777 #### [facility] [address] [place], [address] Serum human chorionic gonado tropin detection for pregnancyOrdered By: Yola Schaffer on 03-28-2025 HCG ( test) Ql 97 mIU/mL High <9 [facility] Comment on above: Gestational Age0.2-1 Week: 5-50 mIU/mL1-2 Weeks: 50-500 mIU/mL2-3 Weeks: 100-5000 mIU/mL3-4 Weeks: 500-10,000 mIU/mL4-5 Weeks:1000-50,000 mIU/mL5-6 Weeks: 10,000-100,000 mIU/mL6-8 Weeks: 15,000-200,000 mIU/mL2-3 Months:10,000-100,000 mIU/mL hCG Titer Quant., Serumon HCG QUANT. 97 mIU/mL High <9 non-preg [facility] Comment on above: Result Comment: Gest ational Age 0.2-1 Week: 5-50 mIU/mL 1-2 Weeks: 50-500 mIU/mL 2-3 Weeks: 100-5000 mIU/mL 3-4 Weeks: 500-10,000 mIU/mL 4-5 Weeks:1000-50,000 mIU/mL 5-6 Weeks: 10,000-100,000 mIU/mL 6-8 Weeks: 15,000-200,000 mIU/mL 2-3 Months:10,000-100,000 mIU/mL Performed By: #### L 500.2500, L100.0100, L700.6800 #### [facility] [address] [place], [place], [address] PROGESTERONE 4317on 03-25-20 PROGESTERONE 42.6 ng/mL Normal . [facility] Comment on above: Order Comment: N Result Comment: Foll icular phase 0.1 - 0.9 Luteal phase 1.8 - 23.9 Ovulation phase 0.1 - 12.0 First trimester 11.0 - 44.3 Second trimester 25.4 - 83.3 Third trimester 58.7 - 214.0 Postmenopausal 0.0 - 0.1 Performed at: [address] [id number] [employer] Set Up Technician: Heri Louis PhD, Phone: [phone] Performed By: #### L 500.2500, L100.0100, L700.6800 #### [facility] [address] [place], [place], [id number] Estradiolon 03-24-2025 ESTRADIOL 591.0 pg/mL Normal [facility] Comment on above: Result Comment: FEMA LES [...] By: #### L 500.2500, L100.0100, L700.6800 #### [facility] [place], [address] Serum or plasma estradiol me asurement after follitropin dose (mass/volume)Ordered By: Yola Schaffer on 03-24-2025 E2 post dose follitropin [Mass/Vol] 591.0 pg/mL [facility] Comment on above: FEMALES ADULT FEMALE : [...] E2on 03-12-2025 Estradiol Level 983.94 pg/mL Normal [facility] Comment on above: Result Comment: Adult Female E2 Reference Ranges: Follicular phase 19.5 - 144.2 pg/mL Midcycle 63.9 - 356.7 pg/mL Luteal phase 55.8 - 214.2 pg/mL Post menopausal 0 - 33.2 pg/mL Performed By: #### E 2, LH, PROG #### [address] [address] LHon 03-12-2025 LH 5.8 mIU/mL Normal [facility] Comment on above: Result Comment: No te - New Reference Range in effect 20Adult Female LH Reference Ranges: Follicular phase 1.9 - 12.5 mIU/mL Midcycle phase 8.7 - 76.3 mIU/mL Luteal phase 0.5 - 16.9 mIU/mL Post menopausal 5.0 - 55.2 mIU/mL Performed By: #### E 2, LH, PROG #### [place] [address] PROGon 03-12-2025 Progesterone Level <0.2 Normal [facility] [...] By: #### E 2, LH, PROG #### [place] [address] E2on 03-10-2025 Estradiol Level 73.69 pg/mL Normal [facility] Comment on above: Result Comment: Adult Female E2 Reference Ranges: Follicular phase 19.5 - 144.2 pg/mL Midcycle 63.9 - 356.7 pg/mL Luteal phase 55.8 - 214.2 pg/mL Post menopausal 0 - 33.2 pg/mL Performed By: #### P LATRICE, E2, LH #### [place] [address] LHon 03-10-2025 LH 8.0 mIU/mL Normal [facility] Comment on above: Result Comment: No te - New Reference Range in effect 20Adult Female LH Reference Ranges: Follicular phase 1.9 - 12.5 mIU/mL Midcycle phase 8.7 - 76.3 mIU/mL Luteal phase 0.5 - 16.9 mIU/mL Post menopausal 5.0 - 55.2 mIU/mL Performed By: #### P LATRICE, E2, LH #### [place] [address] PROGon 03-10-2025 Progesterone Level 0.2 ng/mL Normal [...] By: #### P LATRICE, E2, LH #### [place] [address] E2on 03-07-2025 Estradiol Level 74.44 pg/mL Normal [facility] Comment on above: Result Comment: Adult Female E2 Reference Ranges: Follicular phase 19.5 - 144.2 pg/mL Midcycle 63.9 - 356.7 pg/mL Luteal phase 55.8 - 214.2 pg/mL Post menopausal 0 - 33.2 pg/mL Performed By: #### P LATRICE, E2, LH #### [place] [address] LHon 03-07-2025 LH 4.0 mIU/mL Normal [facility] Comment on above: Result Comment: No te - New Reference Range in effect 20Adult Female LH Reference Ranges: Follicular phase 1.9 - 12.5 mIU/mL Midcycle phase 8.7 - 76.3 mIU/mL Luteal phase 0.5 - 16.9 mIU/mL Post menopausal 5.0 - 55.2 mIU/mL Performed By: #### P LATRICE, E2, LH #### [place] [address] PROGon 03-07-2025 Progesterone Level <0.2 Normal [facility] [...] By: #### P LATRICE, E2, LH #### [address] [place], [place] [address] [employer] Office Visit Reporton 03-06-2025 [employer] Office Visit Report [facility] [address], [address] [place] [address] OFFICE VISIT Date of Service: 03/06/25 MR#: [id number] Acct: [id number] Name: JOSE EDWARD Rep #: [id number] : 1995 Provider: Dr. 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 Required: No Is patient in pain?: No [...] polyp Abnormal uterine bleeding (AUB) Surgical History [place] teeth extracted History of hysteroscopy Status post laparoscopy S/P D C (status post dilation and curettage) Hx of lumpectomy History of tonsillectomy and adenoidectomy Family History Mother Diabetes Uncle Diabetes Grandmother Diabetes Social History (Updated 03/06/25 @ 14:47 by Dunia Fuentes) adopted: No household members: spouse number of children: 1 current occupational status: employed current occupation: [employer] current occupational exposures/hazards: No pets and animals: Yes (Avoid litterbox) pets and animals: cat(s) and dog(s) history of recent travel: Yes ([facility]) out of state: Yes out of country: No sexually active: Yes Smoking Status: Former smoker Electronic Cigarette Use: with nicotine alcohol intake: never substance use type: does not use well-balanced diet: daily or most days caffeine: No eating out: 1-3 times/week during the past year weight has: increased > 10 lbs what type of physical activity do you participate in: none jessica/alevism: Sikhism seatbelt use: always do you feel safe [...] Menopausal Symptoms: (more content not included)... Normal [facility] E2on 02-28-2025 Estradiol Level 44.61 pg/mL Normal [facility] Comment on above: Result Comment: Adult Female E2 Reference Ranges: Follicular phase 19.5 - 144.2 pg/mL Midcycle 63.9 - 356.7 pg/mL Luteal phase 55.8 - 214.2 pg/mL Post menopausal 0 - 33.2 pg/mL Performed By: #### P LATRICE, E2, LH #### [place] [address] FSHon 02-28-2025 FSH 6.6 mIU/mL Normal LUBA MILLAN Comment on above: Result Comment: Adul t Female FSH Reference Ranges (05/26/99): Follicular phase 2.5 - 10.2 mIU/mL Midcycle phase 3.4 - 33.4 mIU/mL Luteal phase 1.5 - 9.1 mIU/mL Post menopausal 23.0 -116.3 mIU/mL Adult Male: 1.4 - 18.1 mIU/mL Performed By: #### P LATRICE, E2, LH #### [address] [address] FT3on 02-28-2025 Free T3 [Mass/Vol] 2.68 pg/mL Normal 2.30-4.20 [facility] Comment on above: Performed By: #### P LATRICE, E2, LH #### [place] [address] FT4on 02-28-2025 Free T4 [Mass/Vol] 1.24 ng/dL Normal 0.89-1.76 [facility] Comment on above: Result Comment: No te - New Reference Range in effect 20 Performed By: #### P LATRICE, E2, LH #### [place] [address] HCGon 02-28-2025 Date of LMP 02/26/2025 Normal [facility] Comment on above: Performed By: #### P LATRICE, E2, LH #### [place] [address] hCG, quantitative <1.0 Normal [facility] Comment on above: Performed By: #### P LATRICE, E2, LH #### [place] [address] LHon 02-28-2025 LH 6.1 mIU/mL Normal [facility] Comment on above: Result Comment: No te - New Reference Range in effect 20 Adult Female LH Reference Ranges: Follicular phase 1.9 - 12.5 mIU/mL Midcycle phase 8.7 - 76.3 mIU/mL Luteal phase 0.5 - 16.9 mIU/mL Post menopausal 5.0 - 55.2 mIU/mL Performed By: #### P LATRICE, E2, LH #### [place] [address] PROGon 02-28-2025 Progesterone Level 0.3 ng/mL Normal [...] Performed By: #### P LATRICE E2, #### [facility] [address] [place] [address] TSHon 02-28-2025 TSH 0.688 mIU/mL Normal 0.550-4.780 [facility] MILLAN Comment on above: Performed By: #### P LATRICE E2, #### [facility] [address] [place] [address] Urine Cultureon 10-15-2024 URC Culture exhibits no growth. Normal [facility] Comment on above: Performed By: #### M 100.2200 #### [facility] [address] [facility]. [place], [place], [address] Abdomen Single View (Portabl e)on 10-14-2024 Abdomen Single View (Portable) [facility] Imaging Services [address] [place], [place] [address] Abdomen Single View (Portable) MR#: [id number] Acct: [id number] Name: JOSE EDWARD Rep #: [id number] : 1995 F 29 From: Nataliya Brown DO PCP: CHERYL Samano Status: PRE ER Study: Abdomen Single View (Portable) Date of Exam: 0 10/14/24 Exam# [id number] Ordering Dr: Anabella Malave PROCEDURE: ABDOMEN SINGLE VIEW (PORTABLE) 10/14/2024 REASON FOR EXAM: ABDOMINAL PAIN, CONSTIPATION TECHNIQUE: Single view abdomen. COMPARISON: None FINDINGS: Bowel gas: Nonobstructive bowel gas pattern. No evidence of obstruction. Mild stool burden within the large bowel. Calcifications: No suspicious calcifications. Bones: The bones are unremarkable. Other: RAD/Abdomen Single View (Portable) IMPRESSION: CONSTIPATION. Reading Location: [facility] CC: CHERYL Weinstein; CHERYL Samano Charge Preparation Technician: Signed Normal [facility] Absolute neutrophil countOrd ered By: Soren Babcock on 10-14-2024 Neutrophils (Bld) [#/Vol] 7.7 10*3/uL 2.0-7.7 [facility] Amorphous sediment detection in urine sediment by light microscopyOrdered By: Anabella Malave on 10-14-2024 Amorphous sediment LM Ql (Urine sed) 1+ PHOS [facility] Anion gap in Serum or Plasma Ordered By: Soren Babcock on 10-14-2024 Anion gap [Moles/Vol] 11 mmol/L 5-15 [facility] BUN/creatinine ratioOrdered By: Soren Babcock on 10-14-2024 Urea nitrogen/Creatinine [Mass ratio] 15.2 mg/mg 10-20 [facility] Basophil percentageOrdered B y: Soren Babcock on 10-14-2024 Basophils/100 WBC (Bld) 0.2 % 0-1 [facility] Beta HCG ( test) Ql Ordered By: Soren Babcock on 10-14-2024 Serum Test, Qualitative Negative [facility] Bilirubin Test strip Ql (U)O rdered By: Anabella Malave on 10-14-2024 Bilirubin Ql (U) 3 mg/dL High Negative [facility] Comment on above: COLOR OF URINE MAY A FFECT DIPSTICK RESULTS. Bilirubin, totalOrdered By: Soren Babcock on 10-14-2024 Bilirubin [Mass/Vol] 0.56 mg/dL 0.00-1.30 [facility] CBC W/Diff, Automatedon 10-01 Absolute Lymph 2.42 X10 3/uL Normal 0.83-4.51 [facility] Comment on above: Performed By: #### L 500.2500, L100.0100, L700.6800 #### [facility] [address] [place], [address] Absolute Neut 7.7 X10 3/uL Normal 2.0-7.7 [facility] Comment on above: Performed By: #### L 500.2500, L100.0100, L700.6800 #### [facility] [address] [place], [address] Basophils/100 WBC (Bld) 0.2 % Normal 0-1 [facility] Comment on above: Performed By: #### L 500.2500, L100.0100, L700.6800 #### [facility] [address] [place], [address] Eosinophils/100 WBC (Bld) 1.6 % Normal 0-5 [facility] Comment on above: Performed By: #### L 500.2500, L100.0100, L700.6800 #### [facility] [address] [place], [address] Erythrocyte distribution width (RBC) [Ratio] 14.4 % Normal 11.6-14.6 [facility] Comment on above: Performed By: #### L 500.2500, L100.0100, L700.6800 #### [facility] [address] [place], [address] Hematocrit (Bld) [Volume fraction] 32.0 % Low 37-47 [facility] Comment on above: Performed By: #### L 500.2500, L100.0100, L700.6800 #### [facility] [address] [place], [address] Hemoglobin (Bld) [Mass/Vol] 10.4 g/dL Low 12.0-15.0 [facility] Comment on above: Performed By: #### L 500.2500, L100.0100, L700.6800 #### [facility] [address] [place], [address] IG% 0.500 Normal 0.0-0.9 [facility] Comment on above: Result Comment: IG% - Immature Granulocytes (promyelocytes, myelocytes and metamyelocytes) > 1% indicates that a LEFT SHIFT is Present. Performed By: #### L 500.2500, L100.0100, L700.6800 #### [facility] [address] [place], [address] Lymphocytes/100 WBC (Bld) 21.9 % Normal 19-41 [facility] Comment on above: Performed By: #### L 500.2500, L100.0100, L700.6800 #### [facility] [address] [place], [address] MCH (RBC) [Entitic mass] 29.9 pg Normal 27.0-32.0 [facility] Comment on above: Performed By: #### L 500.2500, L100.0100, L700.6800 #### [facility] [address] [place], [address] MCHC (RBC) [Mass/Vol] 32.5 g/dL Normal 32-36 [facility] Comment on above: Performed By: #### L 500.2500, L100.0100, L700.6800 #### [facility] [address] [place], [address] MCV (RBC) [Entitic vol] 92.0 fL Normal 81-99 [facility] Comment on above: Performed By: #### L 500.2500, L100.0100, L700.6800 #### [facility] [address] [place], [address] Monocytes/100 WBC (Bld) 6.5 % Normal 0-10 [facility] Comment on above: Performed By: #### L 500.2500, L100.0100, L700.6800 #### [facility] [address] [place], [address] Neutrophils/100 WBC (Bld) 69.3 % Normal 47-70 [facility] Comment on above: Performed By: #### L 500.2500, L100.0100, L700.6800 #### [facility] [address] [place], [address] Nucleated RBC (Bld) [#/Vol] 0 10*3/uL Normal 0-5 [facility] Comment on above: Performed By: #### L 500.2500, L100.0100, L700.6800 #### [facility] [address] [place], [address] Platelet mean volume (Bld) [Entitic vol] 9.2 fL Normal 6.2-12.0 [facility] Comment on above: Performed By: #### L 500.2500, L100.0100, L700.6800 #### [facility] [address] [place], [address] Platelets (Bld) [#/Vol] 237 10*3/uL Normal 150-450 [facility] Comment on above: Performed By: #### L 500.2500, L100.0100, L700.6800 #### [facility] [address] [place], [address] RBC (Bld) [#/Vol] 3.48 10*6/uL Low 4.2-5.4 [facility] Comment on above: Performed By: #### L 500.2500, L100.0100, L700.6800 #### [facility] [address] [place], [address] RDW SD 46.8 fl High 35.1-43.9 [facility] Comment on above: Performed By: #### L 500.2500, L100.0100, L700.6800 #### [facility] [address] [place], [address] WBC (Bld) [#/Vol] 11.1 10*3/uL High 4.4-11.0 [facility] Comment on above: Performed By: #### L 500.2500, L100.0100, L700.6800 #### [facility] [address] [place], [address] Carbon dioxide, total [Moles /volume] in Central venous bloodOrdered By: Soren Babcock on 10-14-2024 CO2 [Moles/Vol] 24.3 mmol/L 21.0-32.0 [facility] Chloride assayOrdered By: Ayan Babcock on 10-14-2024 Chloride [Moles/Vol] 101 mmol/L 98-108 [facility] Comprehensive Metabolic Prof ilon 10-14-2024 Albumin [Mass/Vol] 4.0 g/dL Normal 3.5-5.0 [facility] Comment on above: Performed By: #### L 500.2500, L100.0100, L700.6800 #### [facility] [address] [place], [address] Albumin/Globulin [Mass ratio] 1.7 {ratio} Normal 0.9-2.4 [facility] Comment on above: Performed By: #### L 500.2500, L100.0100, L700.6800 #### [facility] [address] [place], [address] ALK PHOS 65 U/L Normal 35-104 [facility] Comment on above: Performed By: #### L 500.2500, L100.0100, L700.6800 #### [facility] [address] [place], [address] ALT [Catalytic activity/Vol] 14 U/L Normal <=34 [facility] Comment on above: Performed By: #### L 500.2500, L100.0100, L700.6800 #### [facility] [address] [place], [address] AST [Catalytic activity/Vol] 19 U/L Normal <=31 [facility] Comment on above: Performed By: #### L 500.2500, L100.0100, L700.6800 #### [facility] [address] [place], [address] Bilirubin [Mass/Vol] 0.56 mg/dL Normal 0.00-1.30 [facility] Comment on above: Performed By: #### L 500.2500, L100.0100, L700.6800 #### [facility] [address] [place], [address] BUN/CRE 15.2 RATIO Normal 10-20 [facility] Comment on above: Performed By: #### L 500.2500, L100.0100, L700.6800 #### [facility] [address] [place], [address] Calcium [Mass/Vol] 8.8 mg/dL Normal 7.6-11.0 [facility] Comment on above: Performed By: #### L 500.2500, L100.0100, L700.6800 #### [facility] [address] [place], [address] Chloride [Moles/Vol] 101 mmol/L Normal 98-108 [facility] Comment on above: Performed By: #### L 500.2500, L100.0100, L700.6800 #### [facility] [address] [place], [address] CO2 [Moles/Vol] 24.3 mmol/L Normal 21.0-32.0 [facility] Comment on above: Performed By: #### L 500.2500, L100.0100, L700.6800 #### [facility] [address] [place], [address] Creatinine [Mass/Vol] 0.60 mg/dL Low 0.70-1.20 [facility] Comment on above: Performed By: #### L 500.2500, L100.0100, L700.6800 #### [facility] [address] [place], [address] ECRCL 141.63 ml/min Normal 50-250 [facility] Comment on above: Performed By: #### L 500.2500, L100.0100, L700.6800 #### [facility] [address] [place], [address] GAP 11 Normal 5-15 [facility] Comment on above: Performed By: #### L 500.2500, L100.0100, L700.6800 #### [facility] [address] [place], [address] GFR/1.73 sq M.predicted among non-blacks MDRD (S/P/Bld) [Vol rate/Area] 126 mL/min/{1.73_m2} Normal >60 [facility] Comment on above: Result Comment: mL/m in/1.73m2 CKD-EPI Creatinine Equation (2020) Performed By: #### L 500.2500, L100.0100, L700.6800 #### [facility] [address] [place], [address] Globulin (S) [Mass/Vol] 2.4 g/dL Normal 2.2-4.2 [facility] Comment on above: Performed By: #### L 500.2500, L100.0100, L700.6800 #### [facility] [address] [place], [address] Glucose [Mass/Vol] 112 mg/dL High 70-99 [facility] Comment on above: Performed By: #### L 500.2500, L100.0100, L700.6800 #### [facility] [address] [place], [address] Potassium [Moles/Vol] 3.7 mmol/L Normal 3.3-5.1 [facility] Comment on above: Performed By: #### L 500.2500, L100.0100, L700.6800 #### [facility] [address] [place], [address] Sodium [Moles/Vol] 137 mmol/L Normal 133-145 [facility] Comment on above: Performed By: #### L 500.2500, L100.0100, L700.6800 #### [facility] [address] [place], [address] T PROT 6.4 g/dL Normal 5.9-8.4 [facility] Comment on above: Performed By: #### L 500.2500, L100.0100, L700.6800 #### [facility] [address] [place], [address] Urea nitrogen [Mass/Vol] 9 mg/dL Normal 4-19 [facility] Comment on above: Performed By: #### L 500.2500, L100.0100, L700.6800 #### [facility] [address] [place], [address] Emergency Department Summary on 10-14-2024 Emergency Department Summary [facility] Medical Records Department [address] [place] [address] Emergency Department Summary 10/14/24 MR#: [id number] Acct: [id number] Name: JOSE EDWARD Rep #: [id number] : 1995 29 From: Soren Babcock MD PCP: CHERYL Samano Status:[facility] ER Location: ED HPI History of Present Illness Chief Complaint: Abd Pain Narrative Narrative: 29-year-old female presents with abdominal pain. On 10/11/2024 she drove to [place], [place] to have egg retrieval at a fertility clinic. They did the procedure vaginally and punctured her bladder while retrieving some eggs. They prescribed Keflex and Pyridium. She drove home that same day and developed chest pain, shortness of breath, nausea and abdominal pain and had difficulty emptying her bladder. She was evaluated at [place] ED on the same day 10/[address] scan of chest abdomen pelvis negative for PE. There were enlarged ovaries with numerous cysts and moderate volume ascites compatible with ovarian hyperstimulation syndrome. She also had a [place] placed for urinary retention. She was transferred to [facility] for definitive treatment. She states they attempted [...] and shortness of breath are much better. [facility] Medical History Abnormal uterine bleeding Conceived [...] ea 02/28/24 Unknown Rx (FreeStyle Lexi 2 [place]) flash glucose sensor (FreeStyle #1 ea 02/28/24 Unknown Rx Lexi 2 Sensor kit) PNV no.151-iron 27 mg-folic 800 1 cap PO DAILY 10/11/24 Unknown Hi story mcg-omega3 260 dl-wyj-pbi-fish capsule ( Multi-DHA (with vitamin K)) cabergoline [...] Diabetes Uncle Diabetes Grandmother Diabetes Surgical History [place] teeth extracted History of hysteroscopy Status post laparoscopy S/P D C (status post dilation and curettage) Hx of lumpectomy History of tonsillectomy and adenoidectomy Social History adopted: No household members: spouse number of children: 0 current occupational status: employed current occupation: [employer] current occupational exposures/hazards: No pets and animals: Yes (Avoid litterbox) pets and animals: (more content not included)... Normal [facility] Eosinophil percentageOrdered By: Soren Babcock on 10-14-2024 Eosinophils/100 WBC (Bld) 1.6 % 0-5 [facility] Epithelial cells.squamous LM Ql (Urine sed)Ordered By: Anabella Malave on 10-14-2024 Epithelial cells.squamous LM.HPF (Urine sed) [#/Area] 25 /[HPF] 5-10 [facility] Erythrocyte distribution wid th (RBC) [Ratio]Ordered By: Soren Babcock on 10-14-2024 Erythrocyte distribution width (RBC) [Entitic vol] 46.8 fL High 35.1-43.9 [facility] Erythrocyte distribution wid th ratioOrdered By: Soren Babcock on 10-14-2024 Erythrocyte distribution width (RBC) [Ratio] 14.4 % 11.6-14.6 [facility] Estimation of creatinine rory aranceOrdered By: Soren Babcock on 10-14-2024 Estimated Creatinine Clearance Calc 141.63 ml/min 50-250 [facility] GFR/1.73 sq M.predicted checo g non-blacks MDRD (S/P/Bld) [Vol rate/Area]Ordered By: Soren Babcock on 10-14-2024 Estimated GFR (MDRD) Non-Af Amer 126 >60 [facility] Comment on above: mL/min/1.73m2 CKD-EP I Creatinine Equation (2020) Glucose Ql (U)Ordered By: Carolyn Malave on 10-14-2024 Urine Glucose (UA) Normal mg/dl Normal [facility] Hematocrit Auto (Bld) [Volum e fraction]Ordered By: Soren Babcock on 10-14-2024 Hematocrit (Bld) [Volume fraction] 32.0 % Low 37-47 [facility] Hemoglobin measurementOrdere d By: Soren Babcock on 10-14-2024 Hemoglobin (Bld) [Mass/Vol] 10.4 g/dL Low 12.0-15.0 [facility] Immature granulocytes/100 WB C Auto (Bld)Ordered By: Soren Babcock on 10-14-2024 Immature granulocytes/100 WBC (Bld) 0.500 % 0.0-0.9 [facility] Comment on above: IG% - Immature Granu locytes (promyelocytes, myelocytes and metamyelocytes) > 1% indicates that a LEFT SHIFT is Present. Ketones Test strip Ql (U)Ord ered By: Anabella Malave on 10-14-2024 Ketones Ql (U) Negative Negative [facility] Laboratory - Chemistry and C hemistry - challengeOrdered By: Soren Babcock on 10-14-2024 AST [Catalytic activity/Vol] 19 U/L <32 [facility] Lipaseon 10-14-2024 Lipase [Catalytic activity/Vol] 29 U/L Normal 13-75 [facility] Comment on above: Result Comment: Cyndi hawk note: LIPASE revised reference range effective 22. New Lipase methodology. Expected to produce lower values than the previous assay method. NEW Reference Range: 13 - 75 U/L Performed By: #### L 500.2500, L100.0100, L700.6800 #### [facility] [address] [place], [address] Lipase measurementOrdered By : Soren Babcock on 10-14-2024 Lipase [Catalytic activity/Vol] 29 U/L 13-75 [facility] Comment on above: Please note:LIPASE r evised reference range effective 22. New Lipase methodology. Expected to produce lower values than the previous assay method. NEW Reference Range: 13 - 75 U/L Lymphocytes Auto (Unsp spec) [#/Vol]Ordered By: Soren Babcock on 10-14-2024 Lymphocytes (Bld) [#/Vol] 2.42 10*3/uL 0.83-4.51 [facility] Lymphocytes/100 WBC Auto (Un sp spec)Ordered By: Soren Babcock on 10-14-2024 Lymphocytes/100 WBC (Bld) 21.9 % 19-41 [facility] MCV (mean corpuscular volume ) determinationOrdered By: Soren Babcock on 10-14-2024 MCV (RBC) [Entitic vol] 92.0 fL 81-99 [facility] Mean corpuscular hemoglobin (MCH) determinationOrdered By: Soren Babcock on 10-14-2024 MCH (RBC) [Entitic mass] 29.9 pg 27.0-32.0 [facility] Mean corpuscular hemoglobin concentration (MCHC) determinationOrdered By: Soren Babcock on 10-14-2024 MCHC (RBC) [Mass/Vol] 32.5 g/dL 32-36 [facility] Mean platelet volume determi nationOrdered By: Soren Babcock on 10-14-2024 Platelet mean volume (Bld) [Entitic vol] 9.2 fL 6.2-12.0 [facility] Microscopic analysis of urin e for red blood cells (RBC)Ordered By: Anabella Malave on 10-14-2024 Urine RBC 10-25 SEEN /hpf 0-5 [facility] Monocyte percentageOrdered B y: Soren Babcock on 10-14-2024 Monocytes/100 WBC (Bld) 6.5 % 0-10 [facility] Mucus LM Ql (Urine sed)Order ed By: Anabella Malave on 10-14-2024 Mucus Ql (Urine sed) 0 SEEN /hpf [facility] Neutrophil percentageOrdered By: Soren Babcock on 10-14-2024 Neutrophils/100 WBC (Bld) 69.3 % 47-70 [facility] Nitrite Test strip Ql (U)Ord ered By: Anabella Malave on 10-14-2024 Nitrite Ql (U) Positive High Negative [facility] Nucleated red blood cell per centageOrdered By: Soren Babcock on 10-14-2024 Nucleated RBC/100 WBC (Bld) [Ratio] 0 % 0-5 [facility] Platelet countOrdered By: Ayan Babcock on 10-14-2024 Platelets (Bld) [#/Vol] 237 10*3/uL 150-450 [facility] Potassium (Unsp spec) [Mass/ Vol]Ordered By: Soren Babcock on 10-14-2024 Potassium [Moles/Vol] 3.7 mmol/L 3.3-5.1 [facility] ,Serum,hCG Quali.on 10-14-2024 HCG, SERUM QUAL Negative Normal [facility] Comment on above: Performed By: #### L 500.2500, L100.0100, L700.6800 #### [facility] [address] [place] [address]. [place], [address] Protein Test strip Ql (U)Ord ered By: Anabella Malave on 10-14-2024 Protein Ql (U) 30 mg/dl High Negative [facility] RBC Auto (Bld) [#/Vol]Ordere d By: Soren Babcock on 10-14-2024 RBC (Bld) [#/Vol] 3.48 10*6/uL Low 4.2-5.4 [facility] Serum creatinine measurement (mass/volume)Ordered By: Soren Babcock on 10-14-2024 Creatinine [Mass/Vol] 0.60 mg/dL Low 0.70-1.20 [facility] Serum globulin measurementOr dered By: Soren Babcock on 10-14-2024 Globulin (S) [Mass/Vol] 2.4 g/dL 2.2-4.2 [facility] Serum glucose measurement (m ass/volume)Ordered By: Soren Babcock on 10-14-2024 Glucose [Mass/Vol] 112 mg/dL High 70-99 [facility] Serum or plasma alanine eric otransferase (ALT) measurementOrdered By: Soren Babcock on 10-14-2024 ALT [Catalytic activity/Vol] 14 U/L <35 [facility] Serum or plasma albumin shannon urement (mass/volume)Ordered By: Soren Babcock on 10-14-2024 Albumin [Mass/Vol] 4.0 g/dL 3.5-5.0 [facility] Serum or plasma albumin/glob ulin mass ratioOrdered By: Soren Babcock on 10-14-2024 Albumin/Globulin [Mass ratio] 1.7 {ratio} 0.9-2.4 [facility] Serum or plasma alkaline meredith sphatase measurementOrdered By: Soren Babcock on 10-14-2024 ALP [Catalytic activity/Vol] 65 U/L 35-104 [facility] Serum or plasma calcium shannon urement (mass/volume)Ordered By: Soren Babcock on 10-14-2024 Calcium [Mass/Vol] 8.8 mg/dL 7.6-11.0 [facility] Serum or plasma urea nitroge n measurement (mass/volume)Ordered By: Soren Babcock on 10-14-2024 Urea nitrogen [Mass/Vol] 9 mg/dL 4-19 [facility] Sodium levelOrdered By: Soren Babcock on 10-14-2024 Sodium [Moles/Vol] 137 mmol/L 133-145 [facility] Total proteinOrdered By: Max Babcock on 10-14-2024 Protein [Mass/Vol] 6.4 g/dL 5.9-8.4 [facility] Urinalysis, Completeon 10-14 AMORPHOUS 1+ PHOS Normal [facility] Comment on above: Order Comment: COLOR OF URINE MAY AFFECT DIPSTICK RESULTS.BENCH WORKER HOLLOW HANDLE TO SPECIFY Performed By: #### L 500.2500, L100.0100, L700.6800 #### [facility] [address] [place], [address] RBC 10-25 SEEN Normal 0-5 [facility] Comment on above: Order Comment: COLOR OF URINE MAY AFFECT DIPSTICK RESULTS.BENCH WORKER HOLLOW HANDLE TO SPECIFY Performed By: #### L 500.2500, L100.0100, L700.6800 #### [facility] [address] [place], [address] EPI,SQUAMOUS 25-50 SEEN Normal 5-10 [facility] Comment on above: Order Comment: COLOR OF URINE MAY AFFECT DIPSTICK RESULTS.BENCH WORKER HOLLOW HANDLE TO SPECIFY Performed By: #### L 500.2500, L100.0100, L700.6800 #### [facility] [address] [place], [address] WBC 0-5 SEEN Normal 0-5 [facility] Comment on above: Order Comment: COLOR OF URINE MAY AFFECT DIPSTICK RESULTS.BENCH WORKER HOLLOW HANDLE TO SPECIFY Performed By: #### L 500.2500, L100.0100, L700.6800 #### [facility] [address] [place], [address] BACTERIA 0 SEEN Normal None Seen [facility] Comment on above: Order Comment: COLOR OF URINE MAY AFFECT DIPSTICK RESULTS.BENCH WORKER HOLLOW HANDLE TO SPECIFY Performed By: #### L 500.2500, L100.0100, L700.6800 #### [facility] [address] [place], [address] Mucus Ql (Urine sed) 0 SEEN Normal [facility] Comment on above: Order Comment: COLOR OF URINE MAY AFFECT DIPSTICK RESULTS.BENCH WORKER HOLLOW HANDLE TO SPECIFY Performed By: #### L 500.2500, L100.0100, L700.6800 #### [facility] [address] [place], [address] Urine blood detectionOrdered By: Anabella Malave on 10-14-2024 Urine Occult Blood 150 /ul High Negative [facility] Urine clarityOrdered By: Sapna Malave on 10-14-2024 Clarity (U) Sl. Cloudy Clear [facility] Urine color determinationOrd ered By: Anabella Malave on 10-14-2024 Color (U) Rita Yellow [facility] Urine leukocyte esterase det ection by dipstickOrdered By: Anabella Malave on 10-14-2024 Leukocyte esterase Test strip Ql (U) 25 /ul High Negative [facility] Urine pHOrdered By: Anabella watters on 10-14-2024 pH (U) 7.0 [pH] 5.0 - 8.0 [facility] Urine sediment bacteria coun t by microscopy (number/high power field)Ordered By: Anabella Malave on 10-14-2024 Bacteria LM.HPF (Urine sed) [#/Area] 0 /[HPF] None Seen [facility] Urine specific gravity measu rementOrdered By: Anabella Malave on 10-14-2024 Specific gravity (U) [Rel density] 1.015 1.002-1.030 [facility] Urobilinogen Ql (U)Ordered B y: Anabella Malave on 10-14-2024 Urobilinogen (U) [Mass/Vol] 8 mg/dL High Normal [facility] White blood cell (WBC) count Ordered By: Soren Babcock on 10-14-2024 WBC (Bld) [#/Vol] 11.1 10*3/uL High 4.4-11.0 [facility] White blood cell countOrdere d By: Anabella Malave on 10-14-2024 Urine WBC 0-5 SEEN /hpf 0-5 [facility] 30on 10-13-2024 30 Problem: Pain - Adul [...] and maintained or improved Outcome: Progressing Normal [facility] CBC (HEMOGRAM)on 10-13-2024 Erythrocyte distribution width (RBC) [Ratio] 13.9 % Normal 11.5-15.0 [facility] Comment on above: Performed By: #### L [id number] ####Clerk Supervisor: GYPSY DAY ([phone])[facility])[address] [place] [address] Hematocrit (Bld) [Volume fraction] 28.9 % Low 35.0-47.0 [facility] Comment on above: Performed By: #### L [id number] ####Clerk Supervisor: GYPSY DAY ([phone])[facility])[address] [place] [address] Hemoglobin (Bld) [Mass/Vol] 9.3 g/dL Low 11.7-16.0 [facility] Comment on above: Performed By: #### L [id number] ####Clerk Supervisor: GYPSY DAY ([phone])[facility])[address] [place] [address] MCH (RBC) [Entitic mass] 29.5 pg Normal 26.0-34.0 [facility] Comment on above: Performed By: #### L [id number] ####Clerk Supervisor: GYPSY DAY ([phone])[facility])[address] [place] [address] MCHC 32.2 % Normal 30.5-36.0 [facility] Comment on above: Performed By: #### L [id number] ####Clerk Supervisor: GYPSY DAY ([phone])[facility])[address] [place] [address] MCV (RBC) [Entitic vol] 91.7 fL Normal 77.0-99.0 [facility] Comment on above: Performed By: #### L [id number] ####Clerk Supervisor: GYPSY DAY ([phone])[facility])[address] [place] [address] Platelet mean volume (Bld) [Entitic vol] 9.6 fL Normal 9.0-12.7 [facility] Comment on above: Performed By: #### L [id number] ####Clerk Supervisor: GYPSY DAY ([phone])[facility])[address] [place] [address] Platelets (Bld) [#/Vol] 227 10*3/uL Normal 140-440 [facility] Comment on above: Performed By: #### L [id number] ####Clerk Supervisor: GYPSY DAY ([phone])[facility] ([facility])[address] [place] [address] RBC (Bld) [#/Vol] 3.15 10*6/uL Low 3.80-5.20 [facility] Comment on above: Performed By: #### L [id number] ####Clerk Supervisor: GYPSY DAY ([phone])[facility] ([facility])[address] [place] [address] WBC (Bld) [#/Vol] 12.4 10*3/uL High 3.6-10.7 [facility] Comment on above: Performed By: #### L [id number] ####Clerk Supervisor: GYPSY DAY ([phone])[facility])[address] [place] [address] CBC panel Auto (Bld)on 10-13 Erythrocyte distribution width (RBC) [Ratio] 13.9 % 11.5 - 15.0 % [facility] Hematocrit (Bld) [Volume fraction] 28.9 % Low 35.0 - 47.0 % [facility] Hemoglobin (Bld) [Mass/Vol] 9.3 g/dL Low 11.7 - 16.0 g/dL [facility] Interpretation and review of laboratory results Abnormal [facility] MCH (RBC) [Entitic mass] 29.5 pg 26.0 - 34.0 pg [facility] MCHC (RBC) [Mass/Vol] 32.2 % 30.5 - 36.0 % [facility] MCV (RBC) [Entitic vol] 91.7 fL 77.0 - 99.0 fL [facility] Platelet mean volume (Bld) [Entitic vol] 9.6 fL 9.0 - 12.7 fL [facility] Platelets (Bld) [#/Vol] 227 10*3/uL 140 - 440 10*3/uL [facility] RBC (Bld) [#/Vol] 3.15 10*6/uL Low 3.80 - 5.2 0 10*6/uL [facility] WBC (Bld) [#/Vol] 12.4 10*3/uL High 3.6 - 10.7 10*3/uL [facility] COMPREHENSIVE METABOLIC PANE Mahendra 10-13-2024 Albumin [Mass/Vol] 2.8 g/dL Low 3.5-5.0 [facility] Comment on above: Performed By: #### L [id number] ####Clerk Supervisor: GYPSY DAY ([phone])[facility] ([facility])[address] [place] [address] ALP [Catalytic activity/Vol] 49 U/L Normal 40-150 [facility] Comment on above: Performed By: #### L AB17 ####Clerk Supervisor: GYPSY DAY ([phone])[facility] ([facility])[address] [place] [address] ALT [Catalytic activity/Vol] 9 U/L Normal <30 [facility] Comment on above: Performed By: #### L AB17 ####Clerk Supervisor: GYPSY DAY ([phone])[facility] ([facility])[address] [place] [address] Anion gap [Moles/Vol] 4 mmol/L Normal 3-13 [facility] Comment on above: Performed By: #### L [id number] ####Clerk Supervisor: GYPSY DAY ([phone])[facility] ([facility])[address] [place] [address] [place] AST [Catalytic activity/Vol] 14 U/L Normal <34 [facility] Comment on above: Performed By: #### L [id number] ####Clerk Supervisor: GYPSY DAY ([phone])[facility] ([facility])[address] [place] [address] Bilirubin [Mass/Vol] 0.2 mg/dL Normal <1.2 [facility] Comment on above: Performed By: #### L [id number] ####Clerk Supervisor: GYPSY DAY ([phone])[facility])[address] [place] [address] Calcium [Mass/Vol] 7.9 mg/dL Low 8.4-10.2 [facility] Comment on above: Performed By: #### L [id number] ####Clerk Supervisor: GYPSY DAY ([phone])[facility] ([facility])[address] [place] [address] Chloride [Moles/Vol] 110 mmol/L High 98-107 [facility] Comment on above: Performed By: #### L [id number] ####Clerk Supervisor: GYPSY DAY ([phone])[facility] ([facility])[address] [place] [address] CO2 [Moles/Vol] 24 mmol/L Normal 22-29 [facility] Comment on above: Performed By: #### L AB17 ####Clerk Supervisor: GYPSY DAY ([phone])[facility] ([facility])[address] [place] [address] Creatinine [Mass/Vol] 0.60 mg/dL Normal 0.57-1.11 [facility] Comment on above: Performed By: #### L AB17 ####Clerk Supervisor: GYPSY DAY ([phone])[facility])[address] [place] [address] GLOMERULAR FILTRATION RATE ML/MIN/1.73 SQ M.PREDICTED >90.0 Normal >60.0 [facility] Comment on above: Result Comment: Calc ulation based on the Chronic Kidney Disease Epidemiology Collaboration (CKD-EPI) equation refit without adjustment for race Performed By: #### L [id number] ####Clerk Supervisor: GYPSY DAY ([phone])[facility] ([facility])[address] [place] [address] Glucose [Mass/Vol] 96 mg/dL Normal 74-100 [facility] Comment on above: Performed By: #### L [id number] ####Clerk Supervisor: GYPSY DAY ([phone])[facility] ([facility])[address] [place] [address] Potassium [Moles/Vol] 3.8 mmol/L Normal 3.5-5.1 [facility] Comment on above: Result Comment: [facility] potassium values may be up to 0.5 mmol/L lower than serum values. Performed By: #### L [id number] ####Clerk Supervisor: GYPSY DAY ([phone])[facility] ([facility])[address] [place] [address] Protein [Mass/Vol] 4.9 g/dL Low 6.4-8.3 [facility] Comment on above: Performed By: #### L [id number] ####Clerk Supervisor: GYPSY DAY ([phone])[facility] ([facility])[address] [place] [address] Sodium [Moles/Vol] 138 mmol/L Normal 136-145 [facility] Comment on above: Performed By: #### L [id number] ####Clerk Supervisor: GYPSY DAY ([phone])[facility] ([facility])[address] [place] [address] Urea nitrogen [Mass/Vol] 9 mg/dL Normal 8-21 [facility] Comment on above: Performed By: #### L [id number] ####Clerk Supervisor: GYPSY DAY ([phone])[facility])[address] [place] [address] Comprehensive metabolic 1998 panelon 10-13-2024 Albumin [Mass/Vol] 2.8 g/dL Low 3.5 - 5.0 g/dL [facility] ALP [Catalytic activity/Vol] 49 U/L 40 - 150 U/L [facility] ALT [Catalytic activity/Vol] 9 U/L NINF - 30 U/L [facility] Anion gap [Moles/Vol] 4 mmol/L 3 - 13 mmol/L [facility] AST [Catalytic activity/Vol] 14 U/L NINF - 34 U/L [facility] Bilirubin [Mass/Vol] 0.2 mg/dL NINF - 1.2 mg/dL [facility] Calcium [Mass/Vol] 7.9 mg/dL Low 8.4 - 10. 2 mg/dL [facility] Chloride [Moles/Vol] 110 mmol/L High 98 - 10 7 mmol/L [facility] CO2 [Moles/Vol] 24 mmol/L 22 - 29 mmol/L [facility] Creatinine [Mass/Vol] 0.6 mg/dL 0.57 - 1.11 mg/dL [facility] GFR/1.73 sq M.predicted (S/P/Bld) [Vol rate/Area] - PINF [facility] Comment on above: Calculation based on the Chronic Kidney Disease Epidemiology Collaboration (CKD-EPI) equation refit without adjustment for race Glucose [Mass/Vol] 96 mg/dL 74 - 100 mg/dL [facility] Interpretation and review of laboratory results Abnormal [facility] Potassium [Moles/Vol] 3.8 mmol/L 3.5 - 5.1 mmol/L [facility] Comment on above: Plasma potassium arsen ues may be up to 0.5 mmol/L lower than serum values. Protein [Mass/Vol] 4.9 g/dL Low 6.4 - 8.3 g/dL [facility] Sodium [Moles/Vol] 138 mmol/L 136 - 145 mmol/L [facility] Urea nitrogen [Mass/Vol] 9 mg/dL 8 - 21 mg/dL [facility] Guidance for paracentesis of Peritoneumon 10-13-2024 Insufficient fluid f or safe paracentesis. Report Dictated on Electronically Signed By: Yola Montiel MD Electronically Signed Date/Time: 10/13/2024 3:24 PM [facility] Patient Name: JOSE GAMEZ : [...] The procedure was terminated at this time. [facility] Keely Montiel MD - 10/13/2024 [...] Electronically Signed Date/Time: 10/13/2024 3:24 PM EDT [facility] Radiology Study observation (narrative) [facility] Guidance for paracentesis of PeritoneumOrdered By: Keely Montiel on 10-13-2024 [facility] [employer] Work Phone: Progress Noteon 10-13-2024 Progress Note ---- -------- Attestation signed by Gypsy Pelayo MD at 10/13/2024 8:34 AM Hospital Care (Independent): I independently saw and evaluated the patient. I agree with the findings and plan of care as documented in the resident's note. Stable labs and patient without complaints except for bloating. Abd mildly, softly distended. Awaiting paracentesis today. -------- REGISTRATION SCHEDULING SPECIALIST Progress Note Date: 10/13/2024 Time: 6:11 AM [...] - 1 (more content not included)... Normal [facility] US GUIDED ABDOMINAL PARACENT ESISon 10-13-2024 [...] Signed Date/Time: 10/13/2024 3:24 PM EDT Normal [facility] 30on 10-12-2024 30 Problem: Pain - [...] and maintained or improved Outcome: Progressing Normal [facility] CBC (HEMOGRAM)on 10-12-2024 Erythrocyte distribution width (RBC) [Ratio] 13.2 % Normal 11.5-15.0 [facility] Comment on above: Performed By: #### L [id number] ####Clerk Supervisor: GYPSY DAY ([phone])[facility])[address] [place] [address] Hematocrit (Bld) [Volume fraction] 30.9 % Low 35.0-47.0 [facility] Comment on above: Performed By: #### L [id number] ####Clerk Supervisor: GYPSY DAY ([phone])[facility])[address] [place] [address] Hemoglobin (Bld) [Mass/Vol] 10.1 g/dL Low 11.7-16.0 [facility] Comment on above: Performed By: #### L [id number] ####Clerk Supervisor: GYPSY DAY ([phone])[address] IPF 2 Normal [facility] Comment on above: Performed By: #### L [id number] ####Clerk Supervisor: GYPSY DAY ([phone])[facility])[address] [place] [address] MCH (RBC) [Entitic mass] 29.0 pg Normal 26.0-34.0 [facility] Comment on above: Performed By: #### L [id number] ####Clerk Supervisor: GYPSY DAY ([phone])[address] MCHC 32.7 % Normal 30.5-36.0 [facility] Comment on above: Performed By: #### L [id number] ####Clerk Supervisor: GYPSY DAY ([phone])[address] MCV (RBC) [Entitic vol] 88.8 fL Normal 77.0-99.0 [facility] Comment on above: Performed By: #### L [id number] ####Clerk Supervisor: GYPSY DAY ([phone])[facility] ([facility])[address] [place] [address] Platelet mean volume (Bld) [Entitic vol] 9.5 fL Normal 9.0-12.7 [facility] Comment on above: Performed By: #### L [id number] ####Clerk Supervisor: GYPSY DAY ([phone])[facility])[address] [place] [address] Platelets (Bld) [#/Vol] 292 10*3/uL Normal 140-440 [facility] Comment on above: Performed By: #### L [id number] ####Clerk Supervisor: GYPSY DAY ([phone])[facility])[address] [place] [address] RBC (Bld) [#/Vol] 3.48 10*6/uL Low 3.80-5.20 [facility] Comment on above: Performed By: #### L [id number] ####Clerk Supervisor: GYPSY DAY ([phone])[facility] ([facility])[address] [place] [address] WBC (Bld) [#/Vol] 19.6 10*3/uL High 3.6-10.7 [facility] Comment on above: Performed By: #### L [id number] ####Clerk Supervisor: GYPSY DAY ([phone])[facility])[address] [place] [address] CBC panel Auto (Bld)on 10-12 Erythrocyte distribution width (RBC) [Ratio] 13.2 % 11.5 - 15.0 % [facility] Hematocrit (Bld) [Volume fraction] 30.9 % Low 35.0 - 47.0 % [facility] Hemoglobin (Bld) [Mass/Vol] 10.1 g/dL Low 11.7 - 16.0 g/dL [facility] Interpretation and review of laboratory results Abnormal [facility] IPF 2 [facility] MCH (RBC) [Entitic mass] 29 pg 26.0 - 34.0 pg [facility] MCHC (RBC) [Mass/Vol] 32.7 % 30.5 - 36.0 % [facility] MCV (RBC) [Entitic vol] 88.8 fL 77.0 - 99.0 fL [facility] Platelet mean volume (Bld) [Entitic vol] 9.5 fL 9.0 - 12.7 fL [facility] Platelets (Bld) [#/Vol] 292 10*3/uL 140 - 440 10*3/uL [facility] RBC (Bld) [#/Vol] 3.48 10*6/uL Low 3.80 - 5.2 0 10*6/uL [facility] WBC (Bld) [#/Vol] 19.6 10*3/uL High 3.6 - 10.7 10*3/uL [facility] COMPREHENSIVE METABOLIC PANE Mahendra 10-12-2024 Albumin [Mass/Vol] 3.2 g/dL Low 3.5-5.0 [facility] Comment on above: Performed By: #### L [id number] #### Clerk Supervisor: YGPSY DAY ([phone]) [facility]) [address] [place] [address] ALP [Catalytic activity/Vol] 54 U/L Normal 40-150 [facility] Comment on above: Performed By: #### L [id number] #### Clerk Supervisor: GYPSY DAY ([phone]) [facility]) [address] [place] [address] ALT [Catalytic activity/Vol] 11 U/L Normal <30 [facility] Comment on above: Performed By: #### L AB17 #### Clerk Supervisor: GYPSY DAY ([phone]) [facility] ([facility]) [address] [place] [address] Anion gap [Moles/Vol] 5 mmol/L Normal 3-13 [facility] Comment on above: Performed By: #### L AB17 #### Clerk Supervisor: GYPSY DAY ([phone]) [facility]) [address] [place] [address] AST [Catalytic activity/Vol] 16 U/L Normal <34 [facility] Comment on above: Performed By: #### L AB17 #### Clerk Supervisor: GYPSY DAY ([phone]) [facility] ([facility]) [address] [place] [address] Bilirubin [Mass/Vol] 0.2 mg/dL Normal <1.2 [facility] Comment on above: Performed By: #### L AB17 #### Clerk Supervisor: GYPSY DAY ([phone]) [facility] ([facility]) [address] [place] [address] Calcium [Mass/Vol] 8.2 mg/dL Low 8.4-10.2 [facility] Comment on above: Performed By: #### L AB17 #### Clerk Supervisor: GYPSY DAY ([phone]) [facility] [address] [place] [address] Chloride [Moles/Vol] 104 mmol/L Normal 98-107 [facility] Comment on above: Performed By: #### L AB17 #### Clerk Supervisor: GYPSY DAY ([phone]) [facility] ([facility]) [address] [place] [address] CO2 [Moles/Vol] 24 mmol/L Normal 22-29 [facility] Comment on above: Performed By: #### L AB17 #### Clerk Supervisor: GYPSY DAY ([phone]) [facility] [address] [place] [address] Creatinine [Mass/Vol] 0.56 mg/dL Low 0.57-1.11 [facility] Comment on above: Performed By: #### L AB17 #### Clerk Supervisor: GYPSY DAY ([phone]) [facility] [address] [place] [address] GLOMERULAR FILTRATION RATE ML/MIN/1.73 SQ M.PREDICTED >90.0 Normal >60.0 [facility] Comment on above: Result Comment: Calc ulation based on the Chronic Kidney Disease Epidemiology Collaboration (CKD-EPI) equation refit without adjustment for race Performed By: #### L AB17 #### Clerk Supervisor: GYPSY DAY ([phone]) [facility] ([facility]) [address] [place] [address] Glucose [Mass/Vol] 109 mg/dL High 74-100 [facility] Comment on above: Performed By: #### L AB17 #### Clerk Supervisor: GYPSY DAY ([phone]) [facility] ([facility]) [address] [place] [address] Potassium [Moles/Vol] 3.6 mmol/L Normal 3.5-5.1 [facility] Comment on above: Result Comment: [facility] potassium values may be up to 0.5 mmol/L lower than serum values. Performed By: #### L AB17 #### Clerk Supervisor: GYPSY DAY ([phone]) [facility] ([facility]) [address] [place] [address] Protein [Mass/Vol] 5.4 g/dL Low 6.4-8.3 [facility] Comment on above: Performed By: #### L AB17 #### Clerk Supervisor: GYPSY DAY ([phone]) [facility] ([facility]) [address] [place] [address] Sodium [Moles/Vol] 133 mmol/L Low 136-145 [facility] Comment on above: Performed By: #### L AB17 #### Clerk Supervisor: GYPSY DAY ([phone]) [facility]) [address] [place] [address] Urea nitrogen [Mass/Vol] 9 mg/dL Normal 8-21 [facility] Comment on above: Performed By: #### L AB17 #### Clerk Supervisor: GYPSY DAY ([phone]) [facility] ([facility]) [address] [place] [address] Comprehensive metabolic 1998 panelon 10-12-2024 Albumin [Mass/Vol] 3.2 g/dL Low 3.5 - 5.0 g/dL [facility] ALP [Catalytic activity/Vol] 54 U/L 40 - 150 U/L [facility] ALT [Catalytic activity/Vol] 11 U/L NINF - 30 U/L [facility] Anion gap [Moles/Vol] 5 mmol/L 3 - 13 mmol/L [facility] AST [Catalytic activity/Vol] 16 U/L NINF - 34 U/L [facility] Bilirubin [Mass/Vol] 0.2 mg/dL NINF - 1.2 mg/dL [facility] Calcium [Mass/Vol] 8.2 mg/dL Low 8.4 - 10. 2 mg/dL [facility] Chloride [Moles/Vol] 104 mmol/L 98 - 10 7 mmol/L [facility] CO2 [Moles/Vol] 24 mmol/L 22 - 29 mmol/L [facility] Creatinine [Mass/Vol] 0.56 mg/dL Low 0.57 - 1.11 mg/dL [facility] GFR/1.73 sq M.predicted (S/P/Bld) [Vol rate/Area] - PINF [facility] Comment on above: Calculation based on the Chronic Kidney Disease Epidemiology Collaboration (CKD-EPI) equation refit without adjustment for race Glucose [Mass/Vol] 109 mg/dL High 74 - 100 mg/dL [facility] Interpretation and review of laboratory results Abnormal [facility] Potassium [Moles/Vol] 3.6 mmol/L 3.5 - 5.1 mmol/L [facility] Comment on above: Plasma potassium arsen ues may be up to 0.5 mmol/L lower than serum values. Protein [Mass/Vol] 5.4 g/dL Low 6.4 - 8.3 g/dL [facility] Sodium [Moles/Vol] 133 mmol/L Low 136 - 145 mmol/L [facility] Urea nitrogen [Mass/Vol] 9 mg/dL 8 - 21 mg/dL [facility] - Coagulationon 0 10-12-2024 aPTT Coag (PPP) [Time] 26.3 s 20.0 - 30.5 s [facility] INR Coag (PPP) [Relative time] 0.9 {INR} 0.9 - 1.1 [facility] Comment on above: Recommended Anticoag ulant [...] [Time] 10.1 s 9.0 - 12.0 s [facility] No Panel Informationon 10-12 Interpretation and review of laboratory results Normal [facility] PROTIME AND APTTon aPTT Coag (Bld) [Time] 26.3 s Normal 20.0-30.5 [facility] Comment on above: Performed By: #### L [id number] ####Clerk Supervisor: GYPSY DAY ([phone])[facility])[address] [place] [address] INR Coag (PPP) [Relative time] 0.9 {INR} Normal 0.9-1.1 [facility] Comment on above: Result Comment: Dwight [...] prevent Myocardial Infarction Performed By: #### L [id number] ####Clerk Supervisor: GYPSY DAY ([id number])[facility])[address] [place] [address] PT Coag (PPP) [Time] 10.1 s Normal 9.0-12.0 [facility] Comment on above: Performed By: #### L [id number] ####Clerk Supervisor: GYPSY DAY ([phone])[facility])[address] [place] [address] Absolute neutrophil countOrd ered By: Fern Marroquin on 10-11-2024 Neutrophils (Bld) [#/Vol] 19.6 10*3/uL High 2.0-7.7 [facility] Anion gap in Serum or Plasma Ordered By: Fern Marroquin on 10-11-2024 Anion gap [Moles/Vol] 12 mmol/L 5-15 [facility] BUN/creatinine ratioOrdered By: Remus Ungbraulio on 10-11-2024 Urea nitrogen/Creatinine [Mass ratio] 17.7 mg/mg 10- [facility] Bacteria LM.HPF (Urine sed) [#/Area]Ordered By: Remus Ungur on 10-11-2024 Urine Bacteria RARE /hpf None Seen [facility] Basic Metabolic Profile (BMP )on 10-11-2024 BUN/CRE 17.7 RATIO Normal - [facility] Comment on above: Performed By: #### L 500.2500, L100.0100, L700.6800 #### [facility] [address] [place], [address] Calcium [Mass/Vol] 9.1 mg/dL Normal 7.6-11.0 [facility] Comment on above: Performed By: #### L 500.2500, L100.0100, L700.6800 #### [facility] [address] [place], [address] Chloride [Moles/Vol] 102 mmol/L Normal 98-108 [facility] Comment on above: Performed By: #### L 500.2500, L100.0100, L700.6800 #### [facility] [address] [place], [address] CO2 [Moles/Vol] 21.9 mmol/L Normal 21.0-32.0 [facility] Comment on above: Performed By: #### L 500.2500, L100.0100, L700.6800 #### [facility] [address] [place], [address] Creatinine [Mass/Vol] 0.58 mg/dL Low 0.70-1.20 [facility] Comment on above: Performed By: #### L 500.2500, L100.0100, L700.6800 #### [facility] [address] [place], [address] ECRCL 147.18 ml/min Normal 50-250 [facility] Comment on above: Performed By: #### L 500.2500, L100.0100, L700.6800 #### [facility] [address] [place], [address] GAP 12 Normal 5-15 [facility] Comment on above: Performed By: #### L 500.2500, L100.0100, L700.6800 #### [facility] [address] [place], [address] GFR/1.73 sq M.predicted among non-blacks MDRD (S/P/Bld) [Vol rate/Area] 127 mL/min/{1.73_m2} Normal >60 [facility] Comment on above: Result Comment: mL/m in/1.73m2 CKD-EPI Creatinine Equation (2020) Performed By: #### L 500.2500, L100.0100, L700.6800 #### [facility] [address] [place], [address] Glucose [Mass/Vol] 139 mg/dL High 70-99 [facility] Comment on above: Performed By: #### L 500.2500, L100.0100, L700.6800 #### [facility] [address] [place], [address] Potassium [Moles/Vol] 4.1 mmol/L Normal 3.3-5.1 [facility] Comment on above: Performed By: #### L 500.2500, L100.0100, L700.6800 #### [facility] [address] [place], [address] Sodium [Moles/Vol] 136 mmol/L Normal 133-145 [facility] Comment on above: Performed By: #### L 500.2500, L100.0100, L700.6800 #### [facility] [address] [place], [address] Urea nitrogen [Mass/Vol] 10 mg/dL Normal 4-19 [facility] Comment on above: Performed By: #### L 500.2500, L100.0100, L700.6800 #### [facility] [address] [place], [address] Basophil percentageOrdered B y: Fern Lopez on 10-11-2024 Basophils/100 WBC (Bld) 0.1 % 0-1 [facility] Beta HCG ( test) Ql Ordered By: Fern Lopez on 10-11-2024 Serum Test, Qualitative Negative [facility] Bilirubin Test strip Ql (U)O rdered By: Fern Zazuetabraulio on 10-11-2024 Bilirubin Ql (U) 1 mg/dL High Negative [facility] Comment on above: COLOR OF URINE MAY A FFECT DIPSTICK RESULTS. CBC W/Diff, Automatedon 10-01 Absolute Lymph 1.84 X10 3/uL Normal 0.83-4.51 [facility] Comment on above: Performed By: #### L 500.2500, L100.0100, L700.6800 #### [facility] [address] [place], [address] Absolute Neut 19.6 X10 3/uL High 2.0-7.7 [facility] Comment on above: Performed By: #### L 500.2500, L100.0100, L700.6800 #### [facility] [address] [place], [address] Basophils/100 WBC (Bld) 0.1 % Normal 0-1 [facility] Comment on above: Performed By: #### L 500.2500, L100.0100, L700.6800 #### [facility] [address] [place], [address] Eosinophils/100 WBC (Bld) 0.0 % Normal 0-5 [facility] Comment on above: Performed By: #### L 500.2500, L100.0100, L700.6800 #### [facility] [address] [place], [address] Erythrocyte distribution width (RBC) [Ratio] 12.9 % Normal 11.6-14.6 [facility] Comment on above: Performed By: #### L 500.2500, L100.0100, L700.6800 #### [facility] [address] [place], [address] Hematocrit (Bld) [Volume fraction] 34.0 % Low 37-47 [facility] Comment on above: Performed By: #### L 500.2500, L100.0100, L700.6800 #### [facility] [address] [place], [address] Hemoglobin (Bld) [Mass/Vol] 11.6 g/dL Low 12.0-15.0 [facility] Comment on above: Performed By: #### L 500.2500, L100.0100, L700.6800 #### [facility] [address] [place], [address] IG% 0.600 Normal 0.0-0.9 [facility] Comment on above: Result Comment: IG% - Immature Granulocytes (promyelocytes, myelocytes and metamyelocytes) > 1% indicates that a LEFT SHIFT is Present. Performed By: #### L 500.2500, L100.0100, L700.6800 #### [facility] [address] [place], [address] Lymphocytes/100 WBC (Bld) 8.2 % Low 19-41 [facility] Comment on above: Performed By: #### L 500.2500, L100.0100, L700.6800 #### [facility] [address] [place], [address] MCH (RBC) [Entitic mass] 30.1 pg Normal 27.0-32.0 [facility] Comment on above: Performed By: #### L 500.2500, L100.0100, L700.6800 #### [facility] [address] [place], [address] MCHC (RBC) [Mass/Vol] 34.1 g/dL Normal 32-36 [facility] Comment on above: Performed By: #### L 500.2500, L100.0100, L700.6800 #### [facility] [address] [place], [address] MCV (RBC) [Entitic vol] 88.3 fL Normal 81-99 [facility] Comment on above: Performed By: #### L 500.2500, L100.0100, L700.6800 #### [facility] [address] [place], [address] Monocytes/100 WBC (Bld) 4.0 % Normal 0-10 [facility] Comment on above: Performed By: #### L 500.2500, L100.0100, L700.6800 #### [facility] [address] [place], [address] Neutrophils/100 WBC (Bld) 87.1 % High 47-70 [facility] Comment on above: Performed By: #### L 500.2500, L100.0100, L700.6800 #### [facility] [address] [place], [address] Nucleated RBC (Bld) [#/Vol] 0 10*3/uL Normal 0-5 [facility] Comment on above: Performed By: #### L 500.2500, L100.0100, L700.6800 #### [facility] [address] [place], [address] Platelet mean volume (Bld) [Entitic vol] 9.2 fL Normal 6.2-12.0 [facility] Comment on above: Performed By: #### L 500.2500, L100.0100, L700.6800 #### [facility] [address] [place], [address] Platelets (Bld) [#/Vol] 321 10*3/uL Normal 150-450 [facility] Comment on above: Performed By: #### L 500.2500, L100.0100, L700.6800 #### [facility] [address] [place], [address] RBC (Bld) [#/Vol] 3.85 10*6/uL Low 4.2-5.4 [facility] Comment on above: Performed By: #### L 500.2500, L100.0100, L700.6800 #### [facility] [address] [place], [address] RDW SD 41.7 fl Normal 35.1-43.9 [facility] Comment on above: Performed By: #### L 500.2500, L100.0100, L700.6800 #### [facility] [address] [place], [address] WBC (Bld) [#/Vol] 22.5 10*3/uL High 4.4-11.0 [facility] Comment on above: Performed By: #### L 500.2500, L100.0100, L700.6800 #### [facility] [address] [place], [address] CTA Chst, Abd, Pel W and/or WOon 10-11-2024 CTA Chst, Abd, Pel W and/or WO [facility] Imaging Services [address] [place] [address] CTA Chst, Abd, Pel W and/or WO MR#: [id number] Acct: [id number] Name: JOSE EDWARD Rep #: [id number] : 1995 F 29 From: Daisha Hutchins nd, MD PCP: CHERYL Samano Status: REG ER Study: CTA Chst, Abd, Pel W and/or WO Date of Exam: 0 10/11/24 Exam# [id number] Ordering Dr: Fern Marroquin DO PROCEDURE: CTA [...] compatible with ovarian hyperstimulation syndrome. Reading Location: [facility] CC: Dr. Fern Marroquin DO; CHERYL Samano Charge Preparation Technician: Signed Normal [facility] Carbon dioxide, total [Moles /volume] in Central venous bloodOrdered By: Fern Marroquin on 10-11-2024 CO2 [Moles/Vol] 21.9 mmol/L 21.0-32.0 [facility] Chloride assayOrdered By: Delma Marroquin on 10-11-2024 Chloride [Moles/Vol] 102 mmol/L 98-108 [facility] Emergency Department Summary on 10-11-2024 Emergency Department Summary [facility] Medical Records Department [address] [place] [address] Emergency Department Summary 10/11/24 MR#: [id number] Acct: [id number] Name: JOSE EDWARD Rep #: [id number] : 1995 29 From: Fern Marroquin DO PCP: CHERYL Samano Status:REG ER Location: ED HPI History of Present Illness Chief Complaint: Shortness of Breath Detail of Chief Complaint: Shortness of breath and abdominal pain Informant: patient Narrative Narrative: Patient presents to the emergency department complaint shortness of breath and abdominal pain that started this morning. Patient states that she had driven to [facility] this morning to have egg retrieval at [...] No prior history of PE or DVT [facility] Medical History Abnormal uterine bleeding Conceived [...] ea 02/28/24 Unknown Rx (FreeStyle Lexi 2 [place]) flash glucose sensor (FreeStyle #1 ea 02/28/24 Unknown Rx Lexi 2 Sensor kit) PNV no.151-iron 27 mg-folic 800 1 cap PO DAILY 10/11/24 Unknown Hi story mcg-omega3 260 zd-oya-hpu-fish capsule ( Multi-DHA (with vitamin K)) cabergoline [...] Diabetes Uncle Diabetes Grandmother Diabetes Surgical History [place] teeth extracted History of hysteroscopy Status post laparoscopy S/P D C (status post dilation and curettage) Hx of lumpectomy History of tonsillectomy and adenoidectomy Social History adopted: No household members: spouse number of children: 0 current occupational status: employed current occupation: [employer] current occupational exposures/hazards: No pets and animals: Yes (Avoid litterbox) pets and animals: cat(s) and dog(s) history of recent travel: Yes ([facility]) out of state: Yes out of country: No sexually active: Yes Smoking Status: Former smoker Electronic Cigarette Use: with nicotine alcohol intake: never substance use type: does not use well-balanced diet: daily or most days caffeine: No eating out: 1-3 times/week during the past year weight has: increased > 10 lbs what type of physical activity do you participate in: none jessica/alevism: Sikhism seatbelt use: always do you feel safe at home: Yes additional social history: - Rene- Chuck ROS ROS ED Review of Systems ROS Unobtainable: other Constitutional Constitutional ED: Reports lethargy; Denies chills, fever(s), sweats or weight loss Eyes Eyes: Denie (more content not included)... Normal [facility] Eosinophil percentageOrdered By: Fern Marroquin on 10-11-2024 Eosinophils/100 WBC (Bld) 0.0 % 0-5 [facility] Epithelial cells.squamous LM Ql (Urine sed)Ordered By: Fern Marroquin on 10-11-2024 Epithelial cells.squamous LM.HPF (Urine sed) [#/Area] 0 /[HPF] 5-10 [facility] Erythrocyte distribution wid th (RBC) [Ratio]Ordered By: Fern Marroquin on 10-11-2024 Erythrocyte distribution width (RBC) [Entitic vol] 41.7 fL 35.1-43.9 [facility] Erythrocyte distribution wid th ratioOrdered By: Fern Marroquin on 10-11-2024 Erythrocyte distribution width (RBC) [Ratio] 12.9 % 11.6-14.6 [facility] Estimation of creatinine rory aranceOrdered By: Fern Marroquin on 10-11-2024 Estimated Creatinine Clearance Calc 147.18 ml/min 50-250 [facility] GFR/1.73 sq M.predicted checo g non-blacks MDRD (S/P/Bld) [Vol rate/Area]Ordered By: Fern Marroquin on 10-11-2024 Estimated GFR (MDRD) Non-Af Amer 127 >60 [facility] Comment on above: mL/min/1.73m2 CKD-EP I Creatinine Equation (2020) Glucose Ql (U)Ordered By: Delma Marroquin on 10-11-2024 Urine Glucose (UA) Normal mg/dl Normal [facility] Hematocrit Auto (Bld) [Volum e fraction]Ordered By: Fern Marroquin on 10-11-2024 Hematocrit (Bld) [Volume fraction] 34.0 % Low 37-47 [facility] Hemoglobin measurementOrdere d By: Fenr Marroquin on 10-11-2024 Hemoglobin (Bld) [Mass/Vol] 11.6 g/dL Low 12.0-15.0 [facility] Immature granulocytes/100 WB C Auto (Bld)Ordered By: Fern Marroquin 10-11-2024 Immature granulocytes/100 WBC (Bld) 0.600 % 0.0-0.9 [facility] Comment on above: IG% - Immature Granu locytes (promyelocytes, myelocytes and metamyelocytes) > 1% indicates that a LEFT SHIFT is Present. Ketones Test strip Ql (U)Ord ered By: Fern Marroquin on 10-11-2024 Ketones Ql (U) Negative Negative [facility] Lymphocytes Auto (Unsp spec) [#/Vol]Ordered By: Fern Marroquin on 10-11-2024 Lymphocytes (Bld) [#/Vol] 1.84 10*3/uL 0.83-4.51 [facility] Lymphocytes/100 WBC Auto (Un sp spec)Ordered By: Fern Marroquin on 10-11-2024 Lymphocytes/100 WBC (Bld) 8.2 % Low 19-41 [facility] MCV (mean corpuscular volume ) determinationOrdered By: Fern Marroquin on 10-11-2024 MCV (RBC) [Entitic vol] 88.3 fL 81-99 [facility] Mean corpuscular hemoglobin (MCH) determinationOrdered By: Fern Marroquin on 10-11-2024 MCH (RBC) [Entitic mass] 30.1 pg 27.0-32.0 [facility] Mean corpuscular hemoglobin concentration (MCHC) determinationOrdered By: Fern Marroquin on 10-11-2024 MCHC (RBC) [Mass/Vol] 34.1 g/dL 32-36 [facility] Mean platelet volume determi nationOrdered By: Fern Marroquin on 10-11-2024 Platelet mean volume (Bld) [Entitic vol] 9.2 fL 6.2-12.0 [facility] Microscopic analysis of urin e for red blood cells (RBC)Ordered By: Fern Marroquin on 10-11-2024 Urine RBC 0 SEEN /hpf 0-5 [facility] Monocyte percentageOrdered B y: Fern Marroquin on 10-11-2024 Monocytes/100 WBC (Bld) 4.0 % 0-10 [facility] Mucus LM Ql (Urine sed)Order ed By: Fern Marroquin on 10-11-2024 Mucus Ql (Urine sed) 0 SEEN /hpf [facility] Neutrophil percentageOrdered By: Fern Marroquin on 10-11-2024 Neutrophils/100 WBC (Bld) 87.1 % High 47-70 [facility] Nitrite Test strip Ql (U)Ord ered By: Fern Marroquin on 10-11-2024 Nitrite Ql (U) Positive High Negative [facility] Nucleated red blood cell per centageOrdered By: Fern Marroquin on 10-11-2024 Nucleated RBC/100 WBC (Bld) [Ratio] 0 % 0-5 [facility] Platelet countOrdered By: Delma Marroquin on 10-11-2024 Platelets (Bld) [#/Vol] 321 10*3/uL 150-450 [facility] Potassium (Unsp spec) [Mass/ Vol]Ordered By: Fern Marroquin on 10-11-2024 Potassium [Moles/Vol] 4.1 mmol/L 3.3-5.1 [facility] ,Serum,hCG Quali.on 10-11-2024 HCG, SERUM QUAL Negative Normal [facility] Comment on above: Performed By: #### L 500.2500, L100.0100, L700.6800 #### [facility] [address] [place], [address] Protein Test strip Ql (U)Ord ered By: Fern Marroquin on 10-11-2024 Protein Ql (U) 30 mg/dl High Negative [facility] RBC Auto (Bld) [#/Vol]Ordere d By: Fern Marroquin on 10-11-2024 RBC (Bld) [#/Vol] 3.85 10*6/uL Low 4.2-5.4 [facility] Serum creatinine measurement (mass/volume)Ordered By: Fern Marroquin on 10-11-2024 Creatinine [Mass/Vol] 0.58 mg/dL Low 0.70-1.20 [facility] Serum glucose measurement (m ass/volume)Ordered By: Fern Marroquin on 10-11-2024 Glucose [Mass/Vol] 139 mg/dL High 70-99 [facility] Serum or plasma calcium shannon urement (mass/volume)Ordered By: Fern Marroquin on 10-11-2024 Calcium [Mass/Vol] 9.1 mg/dL 7.6-11.0 [facility] Serum or plasma urea nitroge n measurement (mass/volume)Ordered By: Fern Marroquin on 10-11-2024 Urea nitrogen [Mass/Vol] 10 mg/dL 4-19 [facility] Sodium levelOrdered By: Juliann Marroquin on 10-11-2024 Sodium [Moles/Vol] 136 mmol/L 133-145 [facility] Urinalysis, Completeon 10-11 BACTERIA RARE Normal None Seen [facility] Comment on above: Order Comment: EDWARD CTOR TO SPECIFY Performed By: #### L 500.2500, L100.0100, L700.6800 #### [facility] [address] [place], [address] EPI,SQUAMOUS 0 SEEN Normal 5-10 [facility] Comment on above: Order Comment: EDWARD CTOR TO SPECIFY Performed By: #### L 500.2500, L100.0100, L700.6800 #### [facility] [address] [place], [address] Mucus Ql (Urine sed) 0 SEEN Normal [facility] Comment on above: Order Comment: EDWARD CTOR TO SPECIFY Performed By: #### L 500.2500, L100.0100, L700.6800 #### [facility] [address] [place], [address] RBC 0 SEEN Normal 0-5 [facility] Comment on above: Order Comment: EDWARD CTOR TO SPECIFY Performed By: #### L 500.2500, L100.0100, L700.6800 #### [facility] [address] [place], [address] WBC 0 SEEN Normal 0-5 [facility] Comment on above: Order Comment: EDWARD CTOR TO SPECIFY Performed By: #### L 500.2500, L100.0100, L700.6800 #### [facility] [address] [place], [address] Urine blood detectionOrdered By: Cyndius Lopez on 10-11-2024 Urine Occult Blood 150 /ul High Negative [facility] Urine clarityOrdered By: Cyndi Marroquin on 10-11-2024 Clarity (U) Clear Clear [facility] Urine color determinationOrd ered By: Fern Marroquin on 10-11-2024 Color (U) Yellow Yellow [facility] Urine leukocyte esterase det ection by dipstickOrdered By: Fern Marroquin on 10-11-2024 Leukocyte esterase Test strip Ql (U) Negative Negative [facility] Urine pHOrdered By: Fern Winters gur on 10-11-2024 pH (U) 7.0 [pH] 5.0 - 8.0 [facility] Urine specific gravity measu rementOrdered By: Fern Marroquin on 10-11-2024 Specific gravity (U) [Rel density] 1.010 1.002-1.030 [facility] Urobilinogen Ql (U)Ordered B y: Fern Marroquin on 10-11-2024 Urobilinogen (U) [Mass/Vol] 4 mg/dL High Normal [facility] White blood cell (WBC) count Ordered By: Fern Marroquin on 10-11-2024 WBC (Bld) [#/Vol] 22.5 10*3/uL High 4.4-11.0 [facility] White blood cell countOrdere d By: Fern Marroquin on 10-11-2024 Urine WBC 0 SEEN /hpf 0-5 [facility] E2on 10-07-2024 Estradiol Level 1333.35 pg/mL Normal [facility] Comment on above: Result Comment: No te - New Reference Range in effect 20 Adult Female E2 Reference Ranges: Follicular phase 19.5 - 144.2 pg/mL Midcycle 63.9 - 356.7 pg/mL Luteal phase 55.8 - 214.2 pg/mL Post menopausal 0 - 33.2 pg/mL Performed By: #### P LATRICE, E2, LH #### [place] [address] LHon 10-07-2024 LH 3.9 mIU/mL Kevin MILLAN Comment on above: Result Comment: No te - New Reference Range in effect 20 Adult Female LH Reference Ranges: Follicular phase 1.9 - 12.5 mIU/mL Midcycle phase 8.7 - 76.3 mIU/mL Luteal phase 0.5 - 16.9 mIU/mL Post menopausal 5.0 - 55.2 mIU/mL Performed By: #### P LATRICE, E2, LH #### [place] [id number] [place] [address] PROGon 10-07-2024 Progesterone Level 0.9 ng/mL Normal [...] By: #### P LATRICE, E2, LH #### [facility] [address] [place] [address] HIV - WCHon 08-20-2024 HIV Non-Reactive Normal Nonreactive [facility] Comment on above: Performed By: #### L 509.4005, L3890.6300, L509.8000, L3400.0005, L3890.6100, L3890.6005 #### [facility] [address] [place], [address] Antimullerian Hormone, Serum on 08-19-2024 AMH, SERUM 6.59 ng/mL Normal . [facility] Comment on above: Result Comment: For assays employing antibodies, the possibility exists for interference by heterophile antibodies in the samples.1 1.Anthony Khan. Interferences in Immunoassays - still a threat. Clin. Chem. 2000; 46: 1679-3950. This test was developed and its performance characteristics determined by [employer]. It has not been cleared or approved by the Food and Drug Administration. Reference Range: Females 26 - 30y: 1.03 - 11.10 Median 4.20 AMH concentrations of >= 1.06 ng/mL is correlated with a better response to ovarian stimulation, produced more retrievable oocytes and higher odds of live according to Isaaker et al. Fertility and Sterility. 2010: 94:2987-7261. The current AMH test method correlates with [...] By: #### L 500.2500, L100.0100, L700.6800 #### [facility] [address] [place], [place], [id number] PROLACTIN 4465on 08-19-2024 PROLACTIN 21.9 ng/mL Normal 4.8-33.4 [facility] Comment on above: Result Comment: Perf ormed at: [facility] [address] [place] [id number] [employer] Set Up Technician: Mik Jerez MD, Phone: [phone] Performed at: [facility] [id number] [employer] Set Up Technician: Heri Louis PhD, Phone: [phone] Performed By: #### L 500.2500, L100.0100, L700.6800 #### [facility] [address] [place], [place], [address] L3400.0005on 08-16-2024 V ZOSTER IgG Reactive Normal Non Reactive [facility] Comment on above: Result Comment: Pl ease note reference interval change A Reactive result is considered evidence of immunity to VZV. Reactive indicates that VZV IgG was detected consistent with previous infection and/or vaccination. A Non Reactive result indicates that VZV IgG was not detected suggesting that immunity has not been acquired. Performed at: [facility] [id number] [employer] Set Up Technician: Heri Louis PhD, Phone: [phone] Performed By: #### L 509.4005, L3890.6300, L509.8000, L3400.0005, L3890.6100, L3890.6005 #### [facility] [address] [place], [address] [id number] DOrdered By: Ziggy Villareal on 08-15-2024 Vitamin D 25-Hydroxy 28.5 ng/mL [facility] Comment on above: Vitamin D 25(OH) Sta tus Range Deficiency <20 ng/mL (50nmol/L) Insufficiency 20 - 30 ng/mL (50 - 75 nmol/L) Sufficiency 30 - 100 ng/mL (75 - 250 nmol/L) Toxicity >100 ng/mL (>250 nmol/L) Albumin to globulin ratioOrd ered By: Julianna Villareal on 08-15-2024 Albumin/Globulin [Mass ratio] 1.3 {ratio} 0.9-2.4 [facility] Bilirubin, totalOrdered By: Julianna Villareal on 08-15-2024 Bilirubin [Mass/Vol] 0.50 mg/dL 0.20-1.00 [facility] Comment on above: For patients on eltr ombopag therapy, use of Dimension [place] TBIL is not recommended. Blood urea nitrogen (BUN)/cr eatinine ratioOrdered By: Julianna Villareal on 08-15-2024 Urea nitrogen/Creatinine [Mass ratio] 16.3 mg/mg 10-20 [facility] CBC-Complete Blood Cnt No Di ffon 08-15-2024 Erythrocyte distribution width (RBC) [Ratio] 12.9 % Normal 11.6-14.6 [facility] Comment on above: Performed By: #### L 500.2500, L100.0100, L700.6800 #### [facility] [address] [place], [address] Hematocrit (Bld) [Volume fraction] 44.4 % Normal 37-47 [facility] Comment on above: Performed By: #### L 500.2500, L100.0100, L700.6800 #### [facility] [address] [place], [address] Hemoglobin (Bld) [Mass/Vol] 14.8 g/dL Normal 12.0-15.0 [facility] Comment on above: Performed By: #### L 500.2500, L100.0100, L700.6800 #### [facility] [address] [place], [address] MCH (RBC) [Entitic mass] 29.4 pg Normal 27.0-32.0 [facility] Comment on above: Performed By: #### L 500.2500, L100.0100, L700.6800 #### [facility] [address] [place], [address] MCHC (RBC) [Mass/Vol] 33.3 g/dL Normal 32-36 [facility] Comment on above: Performed By: #### L 500.2500, L100.0100, L700.6800 #### [facility] [address] [place], [address] MCV (RBC) [Entitic vol] 88.3 fL Normal 81-99 [facility] Comment on above: Performed By: #### L 500.2500, L100.0100, L700.6800 #### [facility] [address] [place], [address] Platelet mean volume (Bld) [Entitic vol] 9.7 fL Normal 6.2-12.0 [facility] Comment on above: Performed By: #### L 500.2500, L100.0100, L700.6800 #### [facility] [address] [place], [address] Platelets (Bld) [#/Vol] 304 10*3/uL Normal 150-450 [facility] Comment on above: Performed By: #### L 500.2500, L100.0100, L700.6800 #### [facility] [address] [place], [address] RBC (Bld) [#/Vol] 5.03 10*6/uL Normal 4.2-5.4 [facility] Comment on above: Performed By: #### L 500.2500, L100.0100, L700.6800 #### [facility] [address] [place], [address] RDW SD 41.4 fl Normal 35.1-43.9 [facility] Comment on above: Performed By: #### L 500.2500, L100.0100, L700.6800 #### [facility] [address] [place], [address] WBC (Bld) [#/Vol] 6.2 10*3/uL Normal 4.4-11.0 [facility] Comment on above: Performed By: #### L 500.2500, L100.0100, L700.6800 #### [facility] [address] [place], [address] Carbon dioxide measurementOr dered By: Julianna Villareal on 08-15-2024 CO2 [Moles/Vol] 25.0 mmol/L 21.0-32.0 [facility] Chloride measurementOrdered By: Julianna Villareal on 08-15-2024 Chloride [Moles/Vol] 106 mmol/L 98-107 [facility] Comprehensive Metabolic Prof ilon 08-15-2024 Albumin [Mass/Vol] 4.2 g/dL Normal 3.2-5.0 [facility] Comment on above: Performed By: #### L 500.2500, L100.0100, L700.6800 #### [facility] [address] [place], [address] Albumin/Globulin [Mass ratio] 1.3 {ratio} Normal 0.9-2.4 [facility] Comment on above: Performed By: #### L 500.2500, L100.0100, L700.6800 #### [facility] [address] [place], [address] ALK P 96 U/L Normal 45-117 [facility] Comment on above: Performed By: #### L 500.2500, L100.0100, L700.6800 #### [facility] [address] [place], [address] ALT [Catalytic activity/Vol] 22 U/L Normal 13-56 [facility] Comment on above: Performed By: #### L 500.2500, L100.0100, L700.6800 #### [facility] [address] [place], [address] AST [Catalytic activity/Vol] 15 U/L Normal 15-37 [facility] Comment on above: Performed By: #### L 500.2500, L100.0100, L700.6800 #### [facility] [address] [place], [address] Bilirubin [Mass/Vol] 0.50 mg/dL Normal 0.20-1.00 [facility] Comment on above: Result Comment: For patients on eltrombopag therapy, use of Dimension [place] TBIL is not recommended. Performed By: #### L 500.2500, L100.0100, L700.6800 #### [facility] [address] [place], [address] BUN/CRE 16.3 RATIO Normal 10-20 [facility] Comment on above: Performed By: #### L 500.2500, L100.0100, L700.6800 #### [facility] [address] [place], [address] CA,Total 9.5 mg/dL Normal 8.5-10.1 [facility] Comment on above: Performed By: #### L 500.2500, L100.0100, L700.6800 #### [facility] [address] [place], [address] Chloride [Moles/Vol] 106 mmol/L Normal 98-107 [facility] Comment on above: Performed By: #### L 500.2500, L100.0100, L700.6800 #### [facility] [address] [place], [address] CO2 [Moles/Vol] 25.0 mmol/L Normal 21.0-32.0 [facility] Comment on above: Performed By: #### L 500.2500, L100.0100, L700.6800 #### [facility] [address] [place], [address] Creatinine [Mass/Vol] 0.55 mg/dL Normal 0.55-1.02 [facility] Comment on above: Result Comment: The validity of the calculated GFR GFRAA in patients over 70 years has not been determined. Clinical correlation is essential. Performed By: #### L 500.2500, L100.0100, L700.6800 #### [facility] [address] [place], [address] EST GFR - AA 170 mL/min Normal >60 [facility] Comment on above: Result Comment: Afri can Tongan GFR Calc Performed By: #### L 500.2500, L100.0100, L700.6800 #### [facility] [address] [place], [address] GAP 7 Normal 5-15 [facility] Comment on above: Performed By: #### L 500.2500, L100.0100, L700.6800 #### [facility] [address] [place], [address] GFR/1.73 sq M.predicted among non-blacks MDRD (S/P/Bld) [Vol rate/Area] 140 mL/min/{1.73_m2} Normal >60 [facility] Comment on above: Result Comment: Non- GFR Calc Performed By: #### L 500.2500, L100.0100, L700.6800 #### [facility] [address] [place], [address] Globulin (S) [Mass/Vol] 3.2 g/dL Normal 2.2-4.2 [facility] Comment on above: Performed By: #### L 500.2500, L100.0100, L700.6800 #### [facility] [address] [place], [address] Glucose [Mass/Vol] 98 mg/dL Normal 74-106 [facility] Comment on above: Performed By: #### L 500.2500, L100.0100, L700.6800 #### [facility] [address] [place], [address] Potassium [Moles/Vol] 3.8 mmol/L Normal 3.5-5.1 [facility] Comment on above: Performed By: #### L 500.2500, L100.0100, L700.6800 #### [facility] [address] [place], [address] Sodium [Moles/Vol] 138 mmol/L Normal 136-145 [facility] Comment on above: Performed By: #### L 500.2500, L100.0100, L700.6800 #### [facility] [address] [place], [address] T PROT 7.4 g/dL Normal 6.4-8.2 [facility] Comment on above: Performed By: #### L 500.2500, L100.0100, L700.6800 #### [facility] [address] [place], [address] Urea nitrogen [Mass/Vol] 9 mg/dL Normal 7-18 [facility] Comment on above: Performed By: #### L 500.2500, L100.0100, L700.6800 #### [facility] [address] [place], [address] Erythrocyte distribution wid th (RBC) [Ratio]Ordered By: Julianna Villareal on 08-15-2024 Erythrocyte distribution width (RBC) [Entitic vol] 41.4 fL 35.1-43.9 [facility] Erythrocyte distribution wid th ratioOrdered By: Julianna Villareal on 08-15-2024 Erythrocyte distribution width (RBC) [Ratio] 12.9 % 11.6-14.6 [facility] Estimated glomerular filtrat ion rate (GFR) AmericanOrdered By: Julianna Villareal on 08-15-2024 Estimated GFR (MDRD) Amer 170 mL/min >60 [facility] Comment on above: GFR Calc Flecainide [Mass/Vol]Ordered By: Julianna Villareal on 08-15-2024 Anti-Mullerian Hormone 6.59 ng/mL . [facility] Comment on above: For assays employing antibodies, the possibility exists forinterference by heterophile antibodies in the samples.11.Anthony Richard Interferences in Immunoassays - still a threat. Clin. Chem. 2000; 46: 2683-3524.This test was developed and its performance characteristicsdetermined by [employer]. It has not been cleared or approvedby the Food and Drug Administration.Reference Range:Females 26 - 30y: 1.03 - 11.10Median 4.20AMH concentrations of >= 1.06 ng/mL is correlated with abetter response to ovarian stimulation, produced moreretrievable oocytes and higher odds of live accordingto Stacey et al. Fertility and Sterility. 2010:94:0653-1063. The current AMH test method correlates withthe [...] GFR (MDRD) Non-Af Amer 140 mL/min >60 [facility] Comment on above: Non- GFR Calc Glucose measurementOrdered B y: Julianna Mono on 08-15-2024 Glucose [Mass/Vol] 98 mg/dL 74-106 [facility] HIV 1+2 Ab+HIV1 p24 Ag IA Ql Ordered By: Julianna Villareal on 08-15-2024 HIV (1&2) Antibody Non-Reactive Nonreactive [facility] Hematocrit Auto (Bld) [Volum e fraction]Ordered By: Julianna Villareal on 08-15-2024 Hematocrit (Bld) [Volume fraction] 44.4 % 37-47 [facility] Hemoglobin measurementOrdere d By: Julianna Villareal on 08-15-2024 Hemoglobin (Bld) [Mass/Vol] 14.8 g/dL 12.0-15.0 [facility] Hepatitis B Surface Antigeno n 08-15-2024 HEP B Surf Ag Non-Reactive [facility] Comment on above: Performed By: #### L 509.4005, L3890.6300, L509.8000, L3400.0005, L3890.6100, L3890.6005 #### [facility] [address] [place], [address] Hepatitis B surface antigen detectionOrdered By: Julianna Villareal on 08-15-2024 Hepatitis B Surface Antigen Non-Reactive Nonreactive [facility] Hepatitis C Antibodyon 08-15 Hepatitis C AB Non-Reactive Normal [facility] Comment on above: Result Comment: Non Reactive: < 0.8 Equivocal: >/= 0.8 to < 1.0 Reactive: >/= 1.0 The CDC requires that a reactive/equivocal HCV antibody result be sent out for confirmation. HCV Quant by PCR testing. Performed By: #### L 509.4005, L3890.6300, L509.8000, L3400.0005, L3890.6100, L3890.6005 #### [facility] [address] [place], [address] Hepatitis C virus antibody a ssayOrdered By: Julianna Villareal on 08-15-2024 Hepatitis C Antibody Non-Reactive Nonreactive [facility] Comment on above: Non Reactive: < 0.8 Equivocal: >/= 0.8 to < 1.0 Reactive: >/= 1.0The [facility] requires that a reactive/equivocal HCV antibody result be sent out for confirmation. HCV Quant by PCR testing. L509.8000on 08-15-2024 Syphilis Abs Non-Reactive Normal [facility] Comment on above: Performed By: #### L 509.4005, L3890.6300, L509.8000, L3400.0005, L3890.6100, L3890.6005 #### [facility] [address] [place], [address] Laboratory - Chemistry and C hemistry - challengeOrdered By: Julianna Villareal on 08-15-2024 AST [Catalytic activity/Vol] 15 U/L 15-37 [facility] MCV (mean corpuscular volume ) determinationOrdered By: Julianna Villareal on 08-15-2024 MCV (RBC) [Entitic vol] 88.3 fL 81-99 [facility] Mean corpuscular hemoglobin (MCH) determinationOrdered By: Julianna Villareal on 08-15-2024 MCH (RBC) [Entitic mass] 29.4 pg 27.0-32.0 [facility] Mean corpuscular hemoglobin concentration (MCHC) determinationOrdered By: Julianna Villareal on 08-15-2024 MCHC (RBC) [Mass/Vol] 33.3 g/dL 32-36 [facility] Mean platelet volume determi nationOrdered By: Julianna Villareal on 08-15-2024 Platelet mean volume (Bld) [Entitic vol] 9.7 fL 6.2-12.0 [facility] Pelvis W/WO Contraston 08-15 Pelvis W/WO Contrast [facility] [address] [place], [place] [id number] Pelvis W/WO Contrast MR#: [id number] Acct: [id number] Name: JOSE EDWARD Rep #: [id number] : 1995 F 28 From: Rekha Sharpe i, DO PCP: CHERYL Samano Status: REG CLI Study: Pelvis W/WO Contrast Date of Exam: 08/15/24 Exam# [id number] Ordering Dr: Julianna Newman DO PROCEDURE: MRI [...] physiologic in this young patient. [facility] Dr. Julian[facility] Newman DO; CHERYL Samano Charge Preparation Technician: Signed Normal [facility] Platelet countOrdered By: Ayan Villareal on 08-15-2024 Platelets (Bld) [#/Vol] 304 10*3/uL 150-450 [facility] Potassium measurementOrdered By: Julianna Villareal on 08-15-2024 Potassium [Moles/Vol] 3.8 mmol/L 3.5-5.1 [facility] Prolactin [Mass/Vol]Ordered By: Julianna Villareal on 08-15-2024 Prolactin 21.9 ng/mL 4.8-33.4 [facility] Comment on above: Performed at: ES - [facility] [id number] [place], [place] [id number] Director: Mik Jerez MD, Phone: [phone] at: CB - [facility] [id number] [place], [place] [id number] Director: Heri Louis PhD, Phone: [phone] RBC Auto (Bld) [#/Vol]Ordere d By: Julianna Villareal on 08-15-2024 RBC (Bld) [#/Vol] 5.03 10*6/uL 4.2-5.4 [facility] Rubella IgGon 08-15-2024 Rubella IgG Reactive Normal Nonreactive [facility] Comment on above: Result Comment: Anti body Results Interpretation of Immune Status Non Reactive Presumed Non-Immune Equivocal Equivocal Reactive Presumed Immune Performed By: #### L 509.4005, L3890.6300, L509.8000, L3400.0005, L3890.6100, L3890.6005 #### [facility] [address] [place], [place], [address] Rubella immune status IgGOrd ered By: Julianna Villareal on 08-15-2024 Rubella IgG Antibody Reactive Nonreactive [facility] Comment on above: Antibody Results Int erpretation of Immune Status Non Reactive Presumed Non-Immune Equivocal Equivocal Reactive Presumed Immune Serum anion gap measurementO rdered By: Julianna Villareal on 08-15-2024 Anion gap [Moles/Vol] 7 mmol/L 5-15 [facility] Serum globulin measurementOr dered By: Julianna Villareal on 08-15-2024 Globulin (S) [Mass/Vol] 3.2 g/dL 2.2-4.2 [facility] Serum or plasma alanine eric otransferase (ALT) measurementOrdered By: Julianna Villareal on 08-15-2024 ALT [Catalytic activity/Vol] 22 U/L - [facility] Serum or plasma albumin shannon urement (mass/volume)Ordered By: Julianna Villareal on 08-15-2024 Albumin [Mass/Vol] 4.2 g/dL 3.2-5.0 [facility] Serum or plasma alkaline meredith sphatase measurementOrdered By: Julianna Villareal on 08-15-2024 ALP [Catalytic activity/Vol] 96 U/L 45-117 [facility] Serum or plasma calcium shannon urement (mass/volume)Ordered By: Julianna Villareal on 08-15-2024 Calcium [Mass/Vol] 9.5 mg/dL 8.5-10.1 [facility] Serum or plasma creatinine m easurement (mass/volume)Ordered By: Julianna Villareal on 08-15-2024 Creatinine [Mass/Vol] 0.55 mg/dL 0.55-1.02 [facility] Comment on above: The validity of the calculated GFR & GFRAA in patients over 70 years has not been determined. Clinical correlation is essential. Serum or plasma urea nitroge n measurement (mass/volume)Ordered By: Julianna Villareal on 08-15-2024 Urea nitrogen [Mass/Vol] 9 mg/dL 7-18 [facility] Sodium levelOrdered By: Bernadine Villareal on 08-15-2024 Sodium [Moles/Vol] 138 mmol/L 136-145 [facility] Testosterone, Serum Totalon 08-15-2024 Testosterone [Mass/Vol] 32.20 ng/dL Normal [facility] Comment on above: Result Comment: CENT RAL 90% REFERENCE RANGES MALE AGE <50 197.44 - 669.58 ng/dL MALE AGE > or = 50 187.72 - 684.19 ng/dL FEMALE AGE <50 8.38 - 35.01 ng/dL FEMALE AGE > or = 50 <7.00 - 35.92 ng/dL Effective as of 01/26/21 Performed By: #### L 500.2500, L100.0100, L700.6800 #### [facility] [address] [place], [place], [id number] Testosterone, totalOrdered B y: Julianna Villareal on 08-15-2024 Testosterone [Mass/Vol] 32.20 ng/dL [facility] Comment on above: CENTRAL 90% REFERENC E RANGES MALE AGE <50 197.44 - 669.58 ng/dL MALE AGE > or = 50 187.72 - 684.19 ng/dL FEMALE AGE <50 8.38 - 35.01 ng/dL FEMALE AGE > or = 50 <7.00 - 35.92 ng/dL Effective as of 01/26/21 Total proteinOrdered By: Juliane Villareal on 08-15-2024 Protein [Mass/Vol] 7.4 g/dL 6.4-8.2 [facility] Treponema sp Ab Ql (S)Ordere d By: Julianna Villareal on 08-15-2024 Syphilis Total Antibody Non-Reactive [facility] Type AND Screenon 08-15-2024 Ab SCREEN GEL Negative Normal [facility] Comment on above: Order Comment: PN Performed By: #### L 500.2500, L100.0100, L700.6800 #### [facility] [address] [place], [address] Varicella-zoster virus IgG a ntibody assayOrdered By: Julianna Villareal on 08-15-2024 Varicella-Zoster IgG Antibody Reactive Non Reactive [facility] Comment on above: Please note refere nce interval changeA Reactive result is considered evidence of immunity toVZV. Reactive indicates that VZV IgG was detectedconsistent with previous infection and/or vaccination.A Non Reactive result indicates that VZV IgG was notdetected suggesting that immunity has not been acquired.Performed at: [facility] [id number] Director: Heri Louis PhD, Phone: [phone] Vitamin D,25 Hydroxyon 08-15 Vitamin D 25-OH 28.5 ng/mL Normal [facility] Comment on above: Result Comment: Talisha min D 25(OH) Status Range Deficiency <20 ng/mL (50nmol/L) Insufficiency 20 - 30 ng/mL (50 - 75 nmol/L) Sufficiency 30 - 100 ng/mL (75 - 250 nmol/L) Toxicity >100 ng/mL (>250 nmol/L) Performed By: #### L 500.2500, L100.0100, L700.6800 #### [facility] [facility] [address] [place], [address] White blood cell (WBC) count Ordered By: Julianna Villareal on 08-15-2024 WBC (Bld) [#/Vol] 6.2 10*3/uL 4.4-11.0 [facility] Genital Culture Comprehensiv lawanda 06-20-2024 VAC Reason for Exam: vag inal discharge Normal vaginal ese isolated. No yeast, Gardnerella, Neisseria or beta-hemolytic Streptococcus isolated. Normal [facility] Comment on above: Performed By: #### L 500.2500, L100.0100, L700.6800 #### [facility] [address] [place], [address] Genital cultureOrdered By: Herberth Sampson on 06-19-2024 Genital Culture Neisseria or beta-hemolytic Streptococcus isolated. [facility] Gram Stainon 06-19-2024 GS Reason for Exam: vag inal discharge Gram Stain 4+ Gram positive rods 2+ Gram variable carlos 1+ White Blood Cells Clue Cells 4+ Gram negative rods Score = 6 Interpretation: 0-3 Normal, 4-6 Intermediate, 7-10 Positive BV Normal [facility] Comment on above: Performed By: #### L 500.2500, L100.0100, L700.6800 #### [facility] [address] [place], [address] Gram stainOrdered By: Lilly Sampson on 06-19-2024 Microscopic observation Gram stain Nom (Unsp spec) [facility] [employer] Office Visit Reporton 06-19-2024 [employer] Office Visit Report [facility] [address], [address] [place] [address] OFFICE VISIT Date of Service: 06/19/24 MR#: [id number] Acct: [id number] Name: JOSE EDWARD Rep #: [id number] : 1995 Provider: AMY Cage Age/Sex: 28/F [place] [facility] [place]: Signed Intake Vital Signs 03/06/24 13:40 06/19/24 09:41 Height 5 ft 2 in 5 ft 2 in Weight: 176 lb BMI 32.1 BP 119/79 Intake Visit Reasons: painful intercourse Chief Complaint: painful intercourse Waist Fitter Required: No Allergies Latex, Natural Rubber Allergy [...] #1 02/28/24 03/06/24 Rx (FreeStyle Lexi 2 [place]) flash glucose sensor (FreeStyle #1 02/28/24 03/06/24 Rx Lexi 2 Sensor kit) sertraline 25 mg tablet 25 mg PO QDAY 06/19/24 06/19/24 History Is last menstrual period known: No Post menopausal: No Patient : No : No Control [facility] Abnormal uterine bleeding Conceived by in vitro fertilization Supervision of high-risk Decreased movement False labor before 37 completed weeks of gestation premature rupture of membranes (PPROM) with unknown onset of labor Genetic testing of female Wears contact lenses Anxiety Alcohol use Heartburn Vapes nicotine containing substance Endometrial polyp Abnormal uterine bleeding (AUB) Surgical History [place] teeth extracted History of hysteroscopy Status post laparoscopy S/P D C (status post dilation and curettage) Hx of lumpectomy History of tonsillectomy and adenoidectomy Family History Mother Diabetes Uncle Diabetes Grandmother Diabetes Social History adopted: No household members: spouse number of children: 0 current occupational status: employed current occupation: [employer] current occupational exposures/hazards: No pets and animals: Yes (Avoid litterbox) pets and animals: cat(s) and dog(s) history of recent travel: Yes ([facility] [place]) out of state: Yes out of country: No sexually active: Yes Smoking Status: Former smoker Electronic Cigarette Use: with nicotine alcohol intake: never substance use type: does not use well-balanced diet: daily or most days caffeine: No eating out: 1-3 times/week during the past year weight has: increased > 10 lbs what type of physical activity do you participate in: none jessica/alevism: Sikhism seatbelt use: always do you feel safe [...] noted i (more content not included)... Normal [facility] Progress Noteon 05-14-2024 Nuclear Equipment Design Engineer Authentication Interface Message Text Visit This is [...] Support and reassurance given. Discussed meeting with [facility] and pt has appt via telehealth tomorrow, [...] Precautions reviewed Pt to follow up with [facility] as scheduled The total time spent on patient care today 05/14/2024 was 20 minutes. -10 minutes direct patient care -10 minutes chart review and documentation Normal [facility] Progress Noteon 04-25-2024 Nuclear Equipment Design Engineer Authentication Interface Message Text Visit Subjective: Jose [...] gtt completed WNL 3. Follow up with REGISTRATION SCHEDULING SPECIALIST as scheduled for routine well woman care 4. Discussed precon consult with future with MFM if desired The total time spent on patient care today 04/25/2024 was 30 minutes. -15 minutes direct patient care -15 minutes chart review and documentation Normal [facility] GTT 2 HOURon 04-10-2024 Glucose [Mass/Vol] 101 mg/dL 49 - PINF mg/dL [facility] Comment on above: Criteria for Diagnos is [...] review of laboratory results Normal [facility] Glucose, 2 Hour GTT 101 mg/dL Normal >49-<140 [facility] Comment on above: Order Comment: Relea se [...] G TT 2 HOUR #### JULIANNA Mack ([id number]) [facility] [employer] GTT FASTINGon 04-10-2024 Glucose [Mass/Vol] 86 mg/dL Normal >49-<100 [facility] Comment on above: Order Comment: Relea se to patient->Automatic Result Comment: Gilberto mcclure By: [id number] Performed By: #### G TT FASTING #### JULIANNA Mack ([id number]) [facility] (BEAKER) [address] GTT FastingOrdered By: [facility] on 04-10-2024 Glucose post fast [Mass/Vol] 86 mg/dL 49 - PINF mg/dL [facility] Comment on above: Verified By: [id number] Interpretation and review of laboratory results Normal [facility] Progress Noteon 03-28-2024 Nuclear Equipment Design Engineer Authentication Interface Message Text EXAM SUMMARY Jose [...] 1 Capsule (20 mg) by mouth daily [id number] PO daily No current facility-administered medications for [...] on patient care today: 35 minutes. Normal [facility] 42on 03-17-2024 42 Check in with mom, pumping for 30 5/7 week in NICU. Mom is pumping 15cc per session. Observed pump session and resized her flanges to 22.5mm. Mom was given Spectra pump from [facility] jewelry consultant. Answer mom's questions. Discharge today. Normal [facility] Laboratory - Chemistry and C hemistry - challengeon 03-17-2024 Glucose [Mass/Vol] 82 mg/dL 70 - 100 mg/dL [facility] No Panel Informationon 03-17 Interpretation and review of laboratory results Normal [facility] Performed by: [facility], [address] [place] [address] CLIA ID: [id number] [facility] Nursing Noteon 03-17-2024 Nursing Note Mom discharged mom i n good condition with all belongings to a private residence, accompanied by . All discharge instructions reviewed with patient who verbalizes understanding and denies further questions.Mom walked out at 1840 Normal [facility] Progress Noteon 03-17-2024 Progress Note ---- [...] away so will stay in NICU and [facility] when a spot opens. Has a breat [...] data in the 24 hours ending 03/17/24 0583 Physical Exam: General appearance: alert, well appearing, [...] 03/14 - Dexcom in place (share code [id number]) - Discontinued meds after delivery and have been trending post-prandials - Blood sugars normalizing - AM fasting pending Disposition: Anticipate (more content not included)... Normal [facility] [employer] [facility] Laboratory - Chemistry and C hemistry - challengeon 03-16-2024 Glucose [Mass/Vol] 124 mg/dL High 70 - 100 mg/dL [facility] [employer] Glucose [Mass/Vol] 77 mg/dL 70 - 100 mg/dL [facility] [employer] Glucose [Mass/Vol] 102 mg/dL High 70 - 100 mg/dL [facility] No Panel Informationon 03-16 Interpretation and review of laboratory results Abnormal [place] [employer] Performed by: [facility], [address] [place] [address] CLIA ID: [id number] [facility] [employer] Interpretation and review of laboratory results Normal [facility] [employer] Performed by: [facility], [address] [place] [address] CLIA ID: [id number] [facility] [employer] [facility] Interpretation and review of laboratory results Abnormal [facility] [employer] Performed by: [facility], [address] [place] [address] CLIA ID: [id number] [employer] [facility] [employer] Progress Noteon 03-16-2024 Progress Note ---- -------- [...] [place] (more content not included)... Normal [facility] 42on 03-15-2024 42 Initial visit with cheyenne alonzo. This is mom's first baby, delivered at 30 6/7 weeks. Mom is a transfer from [place] ( lives 1/2 from [facility]). Nurse has mom set up with hospital [...] electric breast pump- [facility].All questions answered. Will continue to monitor, encourage and support patient. Normal [facility] CARECOORDon 03-15-2024 CARECOORD Sw consult for [...] be able to transfer baby to [place]. Sw also dicussed her and can stay at bedside. Discussed with NICU Sw who did meet with parents to assist. No further needs anticipated. OK FOR DC [facility] CARECOORD Date: 03/15/2024 Name: Jose Edward : 1995 [facility] Patient Information Primary Caregiver: Self Accompanied by/Relationship: S/O;Family Marital Status: Support System: SO/Family Adventism/Cultural Factors: none Activities of Daily Living Communication: [...] place to sleep or slept in a senior living (including now)? No Transportation Needs Has the [...] Developmental Delay: N/A Children's Services: N/A Normal [facility] HEMOGLOBINon 03-15-2024 Hemoglobin (Bld) [Mass/Vol] 12.6 g/dL Normal 11.7-16.0 [facility] Comment on above: Order Comment: POD # 1; if Hemoglobin less than 8 or greater than 3gm drop from admission, notify MD and repeat as ordered, Performed By: #### L [id number] ####Clerk Supervisor: GYPSY DAY ([phone])[facility] ([facility])[address] [place] [address] Hemoglobin (Bld) [Mass/Vol]O rdered By: Khurram Palacio on 03-15-2024 Interpretation and review of laboratory results Normal [facility] Laboratory - Chemistry and C hemistry - challengeon 03-15-2024 Glucose [Mass/Vol] 97 mg/dL 70 - 100 mg/dL [facility] Glucose [Mass/Vol] 87 mg/dL 70 - 100 mg/dL [facility] Glucose [Mass/Vol] 155 mg/dL High 70 - 100 mg/dL [facility] Glucose [Mass/Vol] 98 mg/dL 70 - 100 mg/dL [facility] Laboratory - Hematology and Cell countsOrdered By: Khurram Palacio on 03-15-2024 Hemoglobin (Bld) [Mass/Vol] 12.6 g/dL 11.7 - 16.0 g/dL [facility] No Panel Informationon 03-15 Interpretation and review of laboratory results Normal [facility] Performed by: [facility], [address] [place] [address] CLIA ID: [id number] [facility] Interpretation and review of laboratory results Normal [facility] Performed by: [facility], [address] [place] [address] CLIA ID: [id number] [facility] Interpretation and review of laboratory results Abnormal [facility] Performed by: [facility], [address] [place] [address] CLIA ID: [id number] [facility] Interpretation and review of laboratory results Normal [facility] Performed by: [facility], [address] [place] [address] CLIA ID: [id number] [facility] Nursing Noteon 03-15-2024 Nursing Note [...] of Humalog. Patient voiced understanding and agreeable. [facility] Progress Noteon 03-15-2024 Progress Note Note-Summer [...] review and documentation , 9:41 AM Normal [facility] BLOOD TYPE AND SCREEN Raheel 03-14-2024 ABO GROUPING O Normal [facility] Comment on above: Performed By: #### L [id number] ####Clerk Supervisor: GYPSY DAY ([phone])[facility] ([facility])[address] [place] [address] RH TYPE IN BLOOD Positive Normal [facility] Comment on above: Performed By: #### L [id number] ####Clerk Supervisor: GYPSY DAY ([phone])[facility] ([facility])[address] [place] [address] Blood type and Crossmatch cheyrl [place] (Bld)on 03-14-2024 ABO group Nom (Bld) O [facility] [employer] Blood group antibody screen GEL Ql Negative [employer] D Ag Ql (RBC) Positive [facility]alt [facility] [place] [employer] Laboratory - Chemistry and C hemistry - challengeon 03-14-2024 Glucose [Mass/Vol] 217 mg/dL High 70 - 100 mg/dL [facility] [employer] Glucose [Mass/Vol] 249 mg/dL High 70 - 100 mg/dL [facility] [employer] Glucose [Mass/Vol] 101 mg/dL High 70 - 100 mg/dL [facility] [employer] Glucose [Mass/Vol] 116 mg/dL High 70 - 100 mg/dL [employer] No Panel Informationon 03-14 Interpretation and review of laboratory results Abnormal [employer] Performed by: [facility], [address] [place] [address] CLIA ID: [id number] [employer] Interpretation and review of laboratory results Abnormal [employer] Performed by: [facility], [address] [place] [address] CLIA ID: [id number] [employer] 1. Allen live intrauterine at 30w 5d. [...] ultrasound findings do not guarantee normal outcomes. [employer] RADIOLOGY SYSTEM OBSTETRICS REPORT (Signed Final 03/14/2024 12:33 pm) PATIENT INFO: ID #: [id number] : [birth year] (28 yrs)(F) Name: JOSE EDWARD Visit Date: 03/14/2024 09:55 am PERFORMED BY: Attending: Christiano Au MD Performed By: Allison Langley RDDC Referred By: JULIANA NGUYEN [facility] Phy.: RAND HALLMAN Location: [facility] Visit Type: Inpatient - Hospital SERVICE(S) PROVIDED: LAUREN w/jessica GUZMAN [address] [place] [id number] INDICATIONS: Oligohydramnios, third trimester, not O41.03X0 applicable [...] 03/14/2024 12:33 pm) PATIENT INFO: ID #: [id number] : [birth year] (28 yrs)(F) Name: JOSE EDWARD Visit Date: 03/14/2024 09:55 am PERFORMED BY: Attending: Christiano Au MD Performed By: Allison Langley RDDC Referred By: JULIANA NGUYEN [facility] Phy.: RAND HALLMAN Location: [facility] Visit Type: Inpatient - Hospital SERVICE(S) PROVIDED: [place]UREN w/out MEGAN [id number] [place] [id number] INDICATIONS: Oligohydramnios, third trimester, not O41.03X0 applicable [...] ultrasound findings do not guarantee normal outcomes. [facility] Interpretation and review of laboratory results Abnormal [facility] Performed by: [facility], [address] [place] [address] CLIA ID: [id number] [facility] Radiology Study observation (narrative) [employer] Interpretation and review of laboratory results Abnormal [facility] [employer] Performed by: [facility], [address] [place] [address] CLIA ID: [id number] [facility] [employer] No Panel InformationOrdered By: Christiano Au on 03-14-2024 [facility] Work Phone: Nursing Noteon 03-14-2024 Nursing Note Pt reports spotting on her pad and upon assessing urine found a few red specks in her urine Normal [facility] Nursing Note Dr. Nguyen made aware that pt was just up to restroom and had a quarter size mucousy, bloody clot into toilet. No active bleeding noted. No change to plan of care at this time Normal [facility] Nursing Note Pt made aware that o rder for nothing to eat or drink has been ordered by Dr. Duarte. She states understanding. I made her aware that I will be starting IV fluids also. Normal [facility] Op Noteon 03-14-2024 Op Note 3x1 [...] > 40 (more content not included)... Normal [facility] Progress Noteon 03-14-2024 Progress Note 1hr [...] to CCD Savanah Duarte, 03/15/2024 12:[address] [facility] Progress Note Nutrition Note: Patient now s/p delivery earlier today. Regular diet ordered which is appropriate. RD sign off to [employer] to continue to monitor. Gypsy Kirby MS RD LD Clinical Dietitian [facility] Progress Note Safety Huddle: Called due to PPROM and laboring with breech presentation and having vaginal bleeding. OB anesthesia, primary RN, wire charger, Dr. Gordillo all present. Will be for 2g Ancef, she is allergic to azithromycin. Received latency abx already. SEQUENCING MACHINE OPERATOR notified. Consent signed by Dr. Au, risks and benefits discussed with the patient including bleeding, infection, damage to surrounding structures. Will proceed with primary section unscheduled, non-emergent. All in agreement. ANA TOVAR DO 03/14/2024 10:43 AM ATTENDING NOTE: I reviewed the note from the Resident and agree with the documentation unless otherwise indicated. [facility] Progress Note Evaluated the patien t to assess position. The fetus is breech on BSUS. Ehsan Gonsalez MD 03/14/2024 9:[address] [facility] Progress Note ---- -------- Attestation signed [...] ODT (Z (more content not included)... Normal [facility] US BIOPHYSICAL PROFILE WO NON STRESS TESTINGon 03-14-2024 US BIOPHYSICAL PROFILE WO NON STRESS TESTING OBSTETRICS REPORT (Signed Final 03/14/2024 12:33 pm) PATIENT INFO: ID #: [id number] : [birth year] (28 yrs)(F) Name: JOSE THOMASHERNÁN Visit Date: 03/14/2024 09:55 am PERFORMED BY: Attending: Christiano Au MD Performed By: Allison Langley [facility] Referred By: JULIANA NGUYEN [facility] Phy.: RAND HALLMAN Location: [facility] Visit Type: Inpatient - Hospital SERVICE(S) PROVIDED: [facility] w/out NST [id number] [place] [id number] INDICATIONS: Oligohydramnios, third trimester, not O41.03X0 applicable [...] findings do not guarantee normal outcomes. Normal [facility] US OB FOLLOW UP TRANSABDOMIN AL APPROACHon 03-14-2024 US OB FOLLOW UP TRANSABDOMINAL APPROACH OBSTETRICS REPORT (Signed Final 03/14/2024 12:33 pm) PATIENT INFO: ID #: [id number] : [birth year] (28 yrs)(F) Name: JOSE EDWARD Visit Date: 03/14/2024 09:55 am PERFORMED BY: Attending: Christiano Au MD Performed By: Allison Langley RDMS Referred By: JULIANA NGUYEN Secondary Phy.: RAND HALLMAN Location: [facility] Visit Type: Inpatient - Hospital SERVICE(S) PROVIDED: LAUREN w/jessica XIONGT [id number] [place] [id number] INDICATIONS: Oligohydramnios, third trimester, not O41.03X0 applicable [...] findings do not guarantee normal outcomes. Normal [facility] CARECOORDon 03-13-2024 [facility] day 8 at 30 /4 weeks. PPROM. Voiced no needs or concerns. Normal [facility] CBC (HEMOGRAM)on 03-13-2024 Erythrocyte distribution width (RBC) [Ratio] 13.8 % Normal 11.5-15.0 [facility] Comment on above: Performed By: #### L [id number] ####Clerk Supervisor: GYPSY DAY ([phone])[address] Hematocrit (Bld) [Volume fraction] 38.4 % Normal 35.0-47.0 [facility] Comment on above: Performed By: #### L [id number] ####Clerk Supervisor: GYPSY DAY ([phone])[address] Hemoglobin (Bld) [Mass/Vol] 13.0 g/dL Normal 11.7-16.0 [facility] Comment on above: Performed By: #### L [id number] ####Clerk Supervisor: GYPSY DAY ([phone])[address] MCH (RBC) [Entitic mass] 29.8 pg Normal 26.0-34.0 [facility] Comment on above: Performed By: #### L [id number] ####Clerk Supervisor: GYPSY DAY ([phone])[address] MCHC 33.9 % Normal 30.5-36.0 [facility] Comment on above: Performed By: #### L [id number] ####Clerk Supervisor: GYPSY DAY ([phone])[facility])[address] [place] [address] MCV (RBC) [Entitic vol] 88.1 fL Normal 77.0-99.0 [facility] Comment on above: Performed By: #### L [id number] ####Clerk Supervisor: GYPSY DAY ([phone])[facility])[address] [place] [address] Platelet mean volume (Bld) [Entitic vol] 9.5 fL Normal 9.0-12.7 [facility] Comment on above: Performed By: #### L [id number] ####Clerk Supervisor: GYPSY DAY ([phone])[facility])[address] [place] [address] Platelets (Bld) [#/Vol] 282 10*3/uL Normal 140-440 [facility] Comment on above: Performed By: #### L [id number] ####Clerk Supervisor: GYPSY DAY ([phone])[facility])[address] [place] [address] RBC (Bld) [#/Vol] 4.36 10*6/uL Normal 3.80-5.20 [facility] Comment on above: Performed By: #### L [id number] ####Clerk Supervisor: GYPSY DAY ([phone])[facility])[address] [place] [address] WBC (Bld) [#/Vol] 8.7 10*3/uL Normal 3.6-10.7 [facility] Comment on above: Performed By: #### L [id number] ####Clerk Supervisor: GYPSY DAY ([phone])[facility])[address] [place] [address] CBC panel Auto (Bld)on 03-13 Erythrocyte distribution width (RBC) [Ratio] 13.8 % 11.5 - 15.0 % [facility] Hematocrit (Bld) [Volume fraction] 38.4 % 35.0 - 47.0 % [facility] Hemoglobin (Bld) [Mass/Vol] 13.0 g/dL 11.7 - 16.0 g/dL [facility] Interpretation and review of laboratory results Normal [facility] MCH (RBC) [Entitic mass] 29.8 pg 26.0 - 34.0 pg [facility] MCHC (RBC) [Mass/Vol] 33.9 % 30.5 - 36.0 % [facility] MCV (RBC) [Entitic vol] 88.1 fL 77.0 - 99.0 fL [facility] Platelet mean volume (Bld) [Entitic vol] 9.5 fL 9.0 - 12.7 fL [facility] Platelets (Bld) [#/Vol] 282 10*3/uL 140 - 440 10*3/uL [facility] RBC (Bld) [#/Vol] 4.36 10*6/uL 3.80 - 5.2 0 10*6/uL [facility] WBC (Bld) [#/Vol] 8.7 10*3/uL 3.6 - 10.7 10*3/uL [facility] IDNon 03-13-2024 IDN The patient is Moderately Stable - Low risk of patient condition declining or worsening The patient's goals for the shift include remain The clinical goals for the shift include remain afebrile Normal [facility] IDN The patient is Moderately Stable - Low risk of patient condition declining or worsening The patient's goals for the shift include remain The clinical goals for the shift include remain afebrile Normal [facility] Laboratory - Chemistry and C hemistry - challengeon 03-13-2024 Glucose [Mass/Vol] 230 mg/dL High 70 - 100 mg/dL [facility] Glucose [Mass/Vol] 162 mg/dL High 70 - 100 mg/dL [facility] Glucose [Mass/Vol] 92 mg/dL 70 - 100 mg/dL [facility] Glucose [Mass/Vol] 91 mg/dL 70 - 100 mg/dL [facility] No Panel Informationon 03-13 Interpretation and review of laboratory results Abnormal [facility] Performed by: [facility] [place] [facility], [address] [place], [place] [id number] CLIA ID: [id number] [facility] Interpretation and review of laboratory results Abnormal [facility] Performed by: [facility], [address] [place] [address], [place] [address] CLIA ID: [id number] [facility] Interpretation and review of laboratory results Normal [facility] Performed by: [facility], [address] [facility], [place] [address] CLIA ID: [id number] [facility] Interpretation and review of laboratory results Normal [facility] Performed by: [facility], [address] [place] [address], [place] [address] CLIA ID: [id number] [facility] Progress Noteon 03-13-2024 Progress Note Notified of [...] closely. Savanah Duarte DO 03/13/2024 11:23 PM [place] more cramping. 1cm dilated. Reportedly was 1cm [...] Savanah Duarte DO 03/14/2024 4:09 AM Normal [facility] Progress Note Temperature of 100.4 [...] ?C (97.9 ?F) (Oral) Resp 16 Normal [facility] Progress Note ---- -------- Attestation signed [...] infection. Primary patient of Edouard Paulson/Prachi in [place]. Alerted her RN today to continue temp [...] mg 40 mg Oral qAM AC Dali Hlal MD 40 mg at 03/12/24 0602 polyethylene [...] Jacey secondary to blood noted; transported to [facility] - in triage, SSE showed gross rupture of membranes with nitrazine positive, ferning negative and visually closed - Admitted for further observation with latency antibiotics and steroids - Plan for delivery at 34 weeks or if indicated sooner for labor, infection, or N (more content not included)... Normal [facility] Consulton 03-12-2024 Consult Consult by Neonatology [...] from NICU Potential need for transfer to [place] [facility] if needs esclation of care, [...] she delivers/is discharged. Paola Cole MD Normal [facility] Laboratory - Chemistry and C hemistry - challengeon 03-12-2024 Glucose [Mass/Vol] 163 mg/dL High 70 - 100 mg/dL [facility] Glucose [Mass/Vol] 128 mg/dL High 70 - 100 mg/dL [facility] Glucose [Mass/Vol] 134 mg/dL High 70 - 100 mg/dL [facility] [employer] Glucose [Mass/Vol] 104 mg/dL High 70 - 100 mg/dL [facility] [employer] No Panel Informationon 03-12 Interpretation and review of laboratory results Abnormal [facility] [facility] Performed by: [facility], [address] [place] [address] CLIA ID: [id number] [facility] [employer] [facility] [employer] Interpretation and review of laboratory results Abnormal [facility] Performed by: [facility], [address] [place] [address] CLIA ID: [id number] [facility] [employer] [facility] Interpretation and review of laboratory results Abnormal [facility] Performed by: [facility], [address] [place] [address], [facility] [address] CLIA ID: [id number] [facility] [employer] [facility] [employer] Interpretation and review of laboratory results Abnormal [facility] [employer] Performed by: [facility], [address] [place] [address] CLIA ID: [id number] [facility] [employer] [facility] [employer] Progress Noteon 03-12-2024 Progress Note ---- -------- [...] Jacey secondary to blood noted; transported to [facility] - in triage, SSE showed gross [...] diet - Dexcom in place, share code [id number] - Continue to monitor BGTs fasting and 1 codi (more content not included)... Normal [facility] 42on 03-11-2024 42 In to visit [...] options for home going pump; pt has [employer] insurance. Availability of LC for NICU and reviewed. [facility] handout Your NICU Baby given and reviewed. Encouraged to watch videos from [email or web address] to support her goals. Resource numbers given for [facility] dept and [facility] dept. Encouraged to call with any questions / concerns. Pt receptive to my visit and education. Denies questions at this time. Normal [facility] CARECOORDon 03-11-2024 [facility] day 6 at 30 /2 weeks. Anhydramnios PPROM at 30/2 weeks referral. Voiced no needs or concerns. Normal [facility] Laboratory - Chemistry and C hemistry - challengeon 03-11-2024 Glucose [Mass/Vol] 104 mg/dL High 70 - 100 mg/dL [facility] Glucose [Mass/Vol] 91 mg/dL 70 - 100 mg/dL [facility] Glucose [Mass/Vol] 99 mg/dL 70 - 100 mg/dL [facility] Glucose [Mass/Vol] 88 mg/dL 70 - 100 mg/dL [facility] No Panel Informationon 03-11 Interpretation and review of laboratory results Abnormal [facility] Performed by: [facility], [address] [place] [address] [place] [address] CLIA ID: [id number] [facility] [employer] [facility] [employer] Interpretation and review of laboratory results Normal [facility]formed by: [facility], [address] [place] [address], [facility] [address] CLIA ID: [id number] [facility] Interpretation and review of laboratory results Normal [facility] Performed by: [facility], [address] [place] [address], [facility] [address] CLIA ID: [id number] [facility] [employer] [facility] - [place] live intrauterine at 30w 2d in breech presentation - The amniotic fluid index is 1.3cm. There is no 2x2 pocket of fluid. - Biophysical profile, 12/08. (-2 for fluid) [employer] RADIOLOGY SYSTEM OBSTETRICS REPORT (Signed Final 03/11/2024 09:42 am) PATIENT INFO: ID #: [id number] : [birth year] (28 yrs)(F) Name: JOSE EDWARD Visit Date: 03/11/2024 09:07 am PERFORMED BY: Attending: Saumya Mancia Performed By: Jaquan Aguilar Referred By: JULIANA NGUYEN Location: [facility] IP Visit Type: Inpatient - Hospital SERVICE(S) PROVIDED: [place]UREN w/out NST 15489 INDICATIONS: Oligohydramnios, third trimester, not O41.03X0 applicable [...] 03/11/2024 09:42 am) PATIENT INFO: ID #: [id number] : [birth year] (28 yrs)(F) Name: JOSE EDWARD Visit Date: 03/11/2024 09:07 am PERFORMED BY: Attending: Saumya Mancia Performed By: Jaquan Aguilar Referred By: JULIANA NGUYEN Location: [facility] IP Visit Type: Inpatient - Hospital SERVICE(S) PROVIDED: LAUREN w/out MEGAN [address] INDICATIONS: Oligohydramnios, third trimester, not O41.03X0 applicable [...] - Biophysical profile, 12/08. (-2 for fluid) [facility] Radiology Study observation (narrative) [facility] Interpretation and review of laboratory results Normal [facility] Performed by: [facility], [address] [place] [address] CLIA ID: [id number] [facility] Progress Noteon 03-11-2024 Progress Note Rn notified me that patient having contractions, feeling some pressure. SSE showed closed cervix, no bleeding noted on exam, posterior cervix. Cat I FHT. Will continue to monitor. ANA ROSEASHLY, 03/11/2024 12:[address] [facility] Progress Note ---- -------- Attestation signed by Saumya Mancia MD at 03/11/2024 2:51 PM MFM ATTENDING I have personally obtained a history and examined the patient with Dr. Nguyen. I agree with the assessment and plan as documented in the resident's note. The patient is a 28 y.o. 30w2d now HD#6, admitted for PPROM Pertinent Background: Transferred from [place] for PPROM. Gross rupture confirmed on admit and anhydramnios at OSH ultrasound. 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 We discussed the indication for delivery with [...] MD prenata (more content not included)... Normal [facility] Progress Note Notified by RN of bleeding patient noticed while wiping and reports of abdominal tightening. FHT Cat I. No CTX on toco. FHT Cat I. SSE performed, cervix visually 1 cm, unchanged from prior exams. No bleeding noted, friability noted on os. Patient placed on monitor, IVF bolus given. Will continue to monitor closely. Normal [facility] US BIOPHYSICAL PROFILE WO NON STRESS TESTINGon 03-11-2024 US BIOPHYSICAL PROFILE WO NON STRESS TESTING OBSTETRICS REPORT (Signed Final 03/11/2024 09:42 am) PATIENT INFO: ID #: [id number] : [birth year] (28 yrs)(F) Name: JOSE EDWARD Visit Date: 03/11/2024 09:07 am PERFORMED BY: Attending: Saumya Mancia Performed By: Jaquan Aguilar Referred By: JULIANA NGUYEN [facility] IP Visit Type: Inpatient - Hospital SERVICE(S) PROVIDED: [facility] w/out NST 89064 INDICATIONS: Oligohydramnios, third trimester, not O41.03X0 applicable [...] Biophysical profile, 12/08. (-2 for fluid) Normal [facility] BLOOD TYPE AND SCREEN GELon 03-10-2024 ABO GROUPING O Normal [facility] Comment on above: Performed By: #### L [id number] ####Clerk Supervisor: GYPSY DAY ([phone])[facility] ([facility])[address] [place] [address] RH TYPE IN BLOOD Positive Normal [facility] Comment on above: Performed By: #### L [id number] ####Clerk Supervisor: GYPSY DAY ([phone])[facility] ([facility])[address] [place] [address] Blood type and Crossmatch pa phill (Bld)on 03-10-2024 ABO group Nom (Bld) O [facility] Blood group antibody screen GEL Ql Negative [facility] D Ag Ql (RBC) [facility] Laboratory - Chemistry and C hemistry - challengeon 03-10-2024 Glucose [Mass/Vol] 135 mg/dL High 70 - 100 mg/dL [facility] Glucose [Mass/Vol] 115 mg/dL High 70 - 100 mg/dL [facility] Glucose [Mass/Vol] 115 mg/dL High 70 - 100 mg/dL [facility] Glucose [Mass/Vol] 89 mg/dL 70 - 100 mg/dL [facility] No Panel Informationon 03-10 Interpretation and review of laboratory results Abnormal [facility]: [facility], [address] [place] [address] CLIA ID: [id number] [facility] [employer] [facility] Interpretation and review of laboratory results Abnormal [facility] Performed by: [email or web address], [address] [place] [address] CLIA ID: [id number] [facility] [employer] [facility] Interpretation and review of laboratory results Abnormal [facility] Performed by: [facility], [address] [place] [address] CLIA ID: [id number] [facility] [employer] [facility] Interpretation and review of laboratory results Normal [facility] Performed by: [facility], [address] [place] [address] CLIA ID: [id number] [facility] Progress Noteon 03-10-2024 Progress Note ---- -------- Attestation signed by Saumya Mancia MD at 03/10/2024 2:46 PM MFM ATTENDING I have personally obtained a history and examined the patient with Dr. Nguyen. I agree with the assessment and plan as documented in the resident's note. The patient is a 28 y.o. 30w1d now HD#5, admitted for PPROM Pertinent Background: Transferred from [place] for PPROM. Gross rupture confirmed on admit and anhydramnios at OSH ultrasound. 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 We discussed the indication for delivery with [...] facility showed (more content not included)... Normal [facility] Laboratory - Chemistry and C hemistry - challengeon 03-09-2024 Glucose [Mass/Vol] 177 mg/dL High 70 - 100 mg/dL [facility] Glucose [Mass/Vol] 172 mg/dL High 70 - 100 mg/dL [facility] Glucose [Mass/Vol] 94 mg/dL 70 - 100 mg/dL [facility] Glucose [Mass/Vol] 139 mg/dL High 70 - 100 mg/dL [facility] Glucose [Mass/Vol] 91 mg/dL 70 - 100 mg/dL [facility] [employer] No Panel Informationon 03-09 Interpretation and review of laboratory results Abnormal [facility] Performed by: [facility], [address] [place] [address] CLIA ID: [id number] [facility] [employer] [facility] Interpretation and review of laboratory results Abnormal [facility] Performed by: [facility], [address] [place] [address] CLIA ID: [id number] [facility] [employer] [facility] Interpretation and review of laboratory results Normal [facility] Performed by: [facility], [address] [place] [address] CLIA ID: [id number] [facility] [employer] [facility] Interpretation and review of laboratory results Abnormal [facility] Performed by: [facility], [address] [place] [address] CLIA ID: [id number] [facility] [employer] [facility] Interpretation and review of laboratory results Normal [facility] Performed by: [facility], [address] [place] [address] CLIA ID: [id number] [facility] [employer] [facility] Progress Noteon 03-09-2024 Progress Note ---- -------- Attestation signed by Saumya Mancia MD at 03/09/2024 10:57 AM M ATTENDING I have personally obtained a history and examined the patient with Dr. Nguyen. I agree with the assessment and plan as documented in the resident's note. The patient is a 28 y.o. 30w0d now HD#4, admitted for PPROM Pertinent Background: Transferred from [place] for PPROM. Gross rupture confirmed on admit and anhydramnios at OSH ultrasound. 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 We discussed the indication for delivery with [...] 1011 Assessme (more content not included)... Normal [facility] Bacteria identified Cx Nom ( U)Ordered By: Karyn Ramírez on 03-08-2024 Interpretation and review of laboratory results [facility] Day 3; 29/6 weeks today; No concerns at this time; Pt states she is interested in the possibility of staying at the [facility] after delivery due to living approx. 2 hours away; patient and provided background check paperwork; will be faxed to [facility] referral line; Will consult for patient as pt would like to see prior to delivery Normal [facility] Laboratory - Chemistry and C hemistry - challengeon 03-08-2024 Glucose [Mass/Vol] 143 mg/dL High 70 - 100 mg/dL [facility] Glucose [Mass/Vol] 171 mg/dL High 70 - 100 mg/dL [facility] Glucose [Mass/Vol] 125 mg/dL High 70 - 100 mg/dL [facility] Glucose [Mass/Vol] 133 mg/dL High 70 - 100 mg/dL [facility] Laboratory - Microbiology an d Antimicrobial susceptibilityOrdered By: Karyn Ramírez on 03-08-2024 Bacteria identified Cx Nom (U) No growth (<1,000 CFU/mL) [facility] No Panel Informationon 03-08 Interpretation and review of laboratory results Abnormal [facility] Performed by: [facility], [address] [place] [address] CLIA ID: [id number] [facility] Interpretation and review of laboratory results Abnormal [facility] Performed by: [facility], [address] [place] [address] CLIA ID: [id number] [facility] Interpretation and review of laboratory results Abnormal [facility] Performed by: [facility], [address] [place] [address], [facility] [address] CLIA ID: [id number] [facility] Interpretation and review of laboratory results Abnormal [facility] Performed by: [facility], [address] [place] [address] CLIA ID: [id number] [facility] Progress Noteon 03-08-2024 Progress Note Nutrition rescreen completed. Patient referred to the Dietitian due to gestational diabetes. YUN Pineda Normal [facility] Progress Note ---- -------- Attestation [...] at OSH ultrasound. 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 We discussed the indication for delivery with [...] to A (more content not included)... Normal [facility] S. agalactiae DNA EDUARDO+probe Ql (Unsp spec)on 03-08-2024 Group B Strep Screen Not detected Not Detected [facility] Interpretation and review of laboratory results Normal [facility] Methodology: real-ti me PCR [facility] Bacterial vaginosis and vagi nitis rRNA panel Probe (Vag fld)on 03-07-2024 Bacterial vaginosis Ql (Vag fld) [Interp] Not detected Not Detected [facility] C. glabrata DNA EDUARDO+probe Ql (Vag fld) Not detected Not Detected [facility] Keesha sp DNA EDUARDO+probe Ql (Vag fld) Not detected Not Detected [facility] Interpretation and review of laboratory results Normal [facility] T. vaginalis DNA EDUARDO+probe Ql (Vag fld) Not detected Not Detected [facility] Methodology: real-ti me PCR A negative result [...] sexual abuse or for other forensic purposes. [facility] CARECOORDon 03-07-2024 CARECOORD Date: 03/07/2024 Name: Jose Edward : 1995 County Information [place] - transport Patient Information Primary Caregiver: Self Accompanied by/Relationship: S/O;Family Marital Status: Support System: SO/Family Adventism/Cultural Factors: Activities of Daily Living Communication: See [...] place to sleep or slept in a senior living (including now)? No Transportation Needs Has the [...] Developmental Delay: N/A Children's Services: N/A Normal [facility] CHLAMYDIA/GONORRHEAon 2023 CHLAMYDIA/GONORRHEA NEISSERIA GONORRHOEA [...] should be collected if clinically indicated. Normal [facility] Comment on above: Performed By: #### L [id number] ####Clerk Supervisor: GYPSY DAY ([phone])[facility])[address] [place] [address] GROUP B STREP SCREEN BY PCRo n 03-07-2024 GROUP B STREP SCREEN BY PCR GROUP B STREP SCREEN BY PCR Reference Not Detected Not Detected ORDER COMMENTS: Methodology: real-time PCR Normal [facility] Comment on above: Performed By: #### L [id number] ####Clerk Supervisor: GYPSY DAY ([phone])[facility] [place] [address] Laboratory - Chemistry and C hemistry - challengeon 03-07-2024 Glucose [Mass/Vol] 149 mg/dL High 70 - 100 mg/dL [facility] Glucose [Mass/Vol] 135 mg/dL High 70 - 100 mg/dL [facility] Glucose [Mass/Vol] 129 mg/dL High 70 - 100 mg/dL [facility] Glucose [Mass/Vol] 105 mg/dL High 70 - 100 mg/dL [facility] Glucose [Mass/Vol] 158 mg/dL High 70 - 100 mg/dL [facility] N. gonorrhoeae DNA EDUARDO+probe Ql (Cervical mucus)on 03-07-2024 C. trachomatis DNA EDUARDO+probe Ql (Unsp spec) Not detected Not Detected [facility] Interpretation and review of laboratory results Normal [facility] N gonorrhoeae, DNA Probe Not detected Not Detected [facility] Methodology: real-ti me PCR This test [...] specimen should be collected if clinically indicated. [employer] No Panel Informationon 03-07 Interpretation and review of laboratory results Abnormal [employer] Performed by: [facility], [address] [place] [address] CLIA ID: [id number] [employer] Interpretation and review of laboratory results Abnormal [employer] Performed by: [employer] [facility], [address] [place] [address] CLIA ID: [id number] [employer] 1. Allen live intrauterine at 29w 5d [...] above. 5. BPP is 6/8 for fluid. [employer] RADIOLOGY SYSTEM OBSTETRICS REPORT (Signed Final 03/07/2024 11:11 am) PATIENT INFO: ID #: [id number] : [birth year] (28 yrs)(F) Name: JOSE EDWARD Visit Date: 03/07/2024 09:36 am PERFORMED BY: Attending: Saumya Mancia Performed By: Allison Langley RDMS Referred By: JULIANA NGUYEN Location: [facility] IP Visit Type: Inpatient - Hospital SERVICE(S) PROVIDED: [place] [address] BP w/out NST 64831 INDICATIONS: Oligohydramnios, third trimester, not O41.03X0 applicable [...] Thoracic: Normal appear (more content not included)... [facility] RADIOLOGY SYSTEM Saumya Mancia MD - 03/07/2024 OBSTETRICS REPORT (Signed Final 03/07/2024 11:11 am) PATIENT INFO: ID #: [id number] : [birth year] (28 yrs)(F) Name: JOSE EDWARD Visit Date: 03/07/2024 09:36 am PERFORMED BY: Attending: Saumya Mancia Performed By: Allison Langley RDDC Referred By: JULIANA NGUYEN Location: [facility] IP Visit Type: Inpatient - Hospital SERVICE(S) [place]: [place] [address] BP w/out NST 56264 INDICATIONS: Oligohydramnios, third trimester, not O41.03X0 applicable [...] Normal appearance Interventr. Septum: Suboptimal views Cardiac Liberty: Normal appearance Diaphragm: Normal appearance 3 Vessel View: Normal appearance 3 V Trachea View: Suboptimal views IVC: Normal Appearance Crossing: Suboptimal views Abdomen Ventral Wall: Normal appearance Cord Insertion: Normal appearance Situs: Normal appearance Stomach: Nor (more content not included)... [employer] Interpretation and review of laboratory results Abnormal [employer] Performed by: [facility], [address] [place] [address] CLIA ID: [id number] [employer] Radiology Study observation (narrative) [employer] Interpretation and review of laboratory results Abnormal [employer] Performed by: [employer] [facility], [address] [place] [address] CLIA ID: [id number] [employer] Interpretation and review of laboratory results Abnormal [employer] Performed by: [facility], [address] [place] [address] CLIA ID: [id number] [employer] No Panel InformationOrdered By: Saumya Mancia on 03-07-2024 [employer] Work Phone: Nursing Noteon 03-07-2024 Nursing Note RN called to bedside at 0435, pt reporting feeling increased leakage of fluid. Denies cramping, contractions, or pain, but does state feeling pressure which has become more constant. Dr Boles aware. Pt instructed to notify RN immediately if pressure intensifies or if cramping / contractions occur. Normal [employer] [facility] Progress Noteon 03-07-2024 Progress Note [...] at OSH ultrasound. 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 We discussed the indication for delivery with any signs of infection. We reviewed the recommendation for inpatient admission until delivery and plan for delivery at 34 weeks unless indicated sooner for labor, infection or NRFS. All questions answered. Continue latency antibiotics for 7 days total. 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 Normal [facility] US BIOPHYSICAL PROFILE WO NON STRESS TESTINGon 03-07-2024 US BIOPHYSICAL PROFILE WO NON STRESS TESTING OBSTETRICS REPORT (Signed Final 03/07/2024 11:11 am) PATIENT INFO: ID #: [id number] : [birth year] (28 yrs)(F) Name: JOSE EDWARD Visit Date: 03/07/2024 09:36 am PERFORMED BY: Attending: Saumya Mancia Performed By: Allison Langley RDMS Referred By: JULIANA NGUYEN Location: [facility] IP Visit Type: Inpatient - Hospital SERVICE(S) [place]: [place] [address] BP w/out NST 10840 INDICATIONS: Oligohydramnios, third trimester, not O41.03X0 applicable [...] Normal appearance Interventr. Septum: Suboptimal views Cardiac Liberty: Normal appearance Diaphragm: Normal appearance 3 Vessel View: Normal appearance 3 V Trachea View: Suboptimal views IVC: Normal Appearance Crossing: Suboptimal views Abdomen Ventral Wall: Normal appearance Cord Insertion: Normal appearance Situs: Normal appearance Stomach: Normal appearance Liver: Normal appearance Lt Kidney: Normal appearance Rt Kidney: Normal appearance Bladder: N (more content not included)... Normal [facility] US OB FOLLOW UP TRANSABDOMIN AL APPROACHon 03-07-2024 US OB FOLLOW UP TRANSABDOMINAL APPROACH OBSTETRICS REPORT (Signed Final 03/07/2024 11:11 am) PATIENT INFO: ID #: [id number] : [birth year] (28 yrs)(F) Name: JOSE EDWARD Visit Date: 03/07/2024 09:36 am PERFORMED BY: Attending: Saumya Mancia Performed By: Allison Langley [facility] Referred By: JULIANA NGUYEN Location: [facility] IP Visit Type: Inpatient - Hospital SERVICE(S) [place]: [place] [address] BPP w/out NST 75324 INDICATIONS: Oligohydramnios, third trimester, not O41.03X0 applicable [...] Normal appearance Interventr. Septum: Suboptimal views Cardiac Liberty: Normal appearance Diaphragm: Normal appearance 3 Vessel View: Normal appearance 3 V Trachea View: Suboptimal views IVC: Normal Appearance Crossing: Suboptimal views Abdomen Ventral Wall: Normal appearance Cord Insertion: Normal appearance Situs: Normal appearance Stomach: Normal appearance Liver: Normal appearance Lt Kidney: Normal appearance Rt Kidney: Normal appearance Bladder: N (more content not included)... Normal [facility] VAGINITIS PANEL MVP PCRon VAGINITIS PANEL [...] abuse or for other forensic purposes. Normal [facility] Comment on above: Performed By: #### L [id number] #### Clerk Supervisor: GYPSY DAY ([phone]) [facility] ([facility]) [address] [place] [address] BLOOD TYPE AND SCREEN GELon 03-06-2024 ABO GROUPING O Normal [facility] Comment on above: Order Comment: HOLD. Specimen is valid for 3 days - nurse to verify valid specimen Performed By: #### L [id number] ####Clerk Supervisor: GYPSY DAY ([phone])[facility] ([facility])[address] [place] [address] RH TYPE IN BLOOD Positive Normal [facility] Comment on above: Order Comment: HOLD. Specimen is valid for 3 days - nurse to verify valid specimen Performed By: #### L [id number] ####Clerk Supervisor: GYPSY DAY ([phone])[facility] ([facility])[address] [place] [address] Blood type and Crossmatch pa phill (Bld)on 03-06-2024 ABO group Nom (Bld) O [facility] Blood group antibody screen GEL Ql Negative [facility] D Ag [facility]l [facility]RBC) [facility] CBC (HEMOGRAM)on 03-06-2024 Erythrocyte distribution width (RBC) [Ratio] 13.9 % Normal 11.5-15.0 [facility] Comment on above: Performed By: #### L [id number] ####Clerk Supervisor: GYPSY DAY ([phone])[facility] ([facility])[address] [place] [address] Hematocrit (Bld) [Volume fraction] 41.8 % Normal 35.0-47.0 [facility] Comment on above: Performed By: #### L [id number] ####Clerk Supervisor: GYPSY DAY ([phone])[facility] ([facility])[address] [place] [address] Hemoglobin (Bld) [Mass/Vol] 14.1 g/dL Normal 11.7-16.0 [facility] Comment on above: Performed By: #### L [id number] ####Clerk Supervisor: GYPSY DAY ([phone])[facility] ([facility])[address] [place] [address] MCH (RBC) [Entitic mass] 30.4 pg Normal 26.0-34.0 [facility] Comment on above: Performed By: #### L [id number] ####Clerk Supervisor: GYPSY DAY ([phone])[facility])[address] [place] [address] MCHC 33.7 % Normal 30.5-36.0 [facility] Comment on above: Performed By: #### L [id number] ####Clerk Supervisor: GYPSY DAY ([phone])[facility] ([facility])[address] [place] [address] MCV (RBC) [Entitic vol] 90.1 fL Normal 77.0-99.0 [facility] Comment on above: Performed By: #### L [id number] ####Clerk Supervisor: GYPSY DAY ([phone])[facility])[address] [place] [address] Platelet mean volume (Bld) [Entitic vol] 9.8 fL Normal 9.0-12.7 [facility] Comment on above: Performed By: #### L [id number] ####Clerk Supervisor: GYPSY DAY ([phone])[facility])[address] [place] [address] Platelets (Bld) [#/Vol] 311 10*3/uL Normal 140-440 [facility] Comment on above: Performed By: #### L [id number] ####Clerk Supervisor: GYPSY DAY ([phone])[facility] ([facility])[address] [place] [address] RBC (Bld) [#/Vol] 4.64 10*6/uL Normal 3.80-5.20 [facility] Comment on above: Performed By: #### L [id number] ####Clerk Supervisor: GYPSY DAY ([phone])[facility] ([facility])[address] [place] [address] WBC (Bld) [#/Vol] 15.2 10*3/uL High 3.6-10.7 [facility] Comment on above: Performed By: #### L [id number] ####Clerk Supervisor: GYPSY DAY ([phone])[facility] ([facility])[address] [place] [address] CBC panel Auto (Bld)on 03-06 Erythrocyte distribution width (RBC) [Ratio] 13.9 % 11.5 - 15.0 % [facility] Hematocrit (Bld) [Volume fraction] 41.8 % 35.0 - 47.0 % [facility] Hemoglobin (Bld) [Mass/Vol] 14.1 g/dL 11.7 - 16.0 g/dL [facility] Interpretation and review of laboratory results Abnormal [facility] MCH (RBC) [Entitic mass] 30.4 pg 26.0 - 34.0 pg [facility] MCHC (RBC) [Mass/Vol] 33.7 % 30.5 - 36.0 % [facility] MCV (RBC) [Entitic vol] 90.1 fL 77.0 - 99.0 fL [facility] Platelet mean volume (Bld) [Entitic vol] 9.8 fL 9.0 - 12.7 fL [facility] Platelets (Bld) [#/Vol] 311 10*3/uL 140 - 440 10*3/uL [facility] RBC (Bld) [#/Vol] 4.64 10*6/uL 3.80 - 5.2 0 10*6/uL [facility] WBC (Bld) [#/Vol] 15.2 10*3/uL High 3.6 - 10.7 10*3/uL [facility] Laboratory - Chemistry and C hemistry - challengeon 09-04-2024 Glucose [Mass/Vol] 229 mg/dL High 70 - 100 mg/dL [facility] Glucose [Mass/Vol] 227 mg/dL High 70 - 100 mg/dL [facility] [employer] No Panel Informationon 03-06 Interpretation and review of laboratory results Abnormal [facility] Performed by: [facility], [address] [place] [address] CLIA ID: [id number] [facility] Interpretation and review of laboratory results Abnormal [facility] Performed by: [facility] [employer] [facility], [address] [facility] [address] CLIA ID: [id number] [facility] [employer] [facility] Progress Noteon 03-06-2024 Progress Note ---- -------- Attestation signed by Saumya Mancia MD at 03/06/2024 6:43 PM [facility] Patient a direct admission from Transfer from [place]. Please see my other H&P attestation -------- Department of Obstetrics and Gynecology Labor and Delivery Triage Note CHIEF COMPLAINT: Anyhydramnios HISTORY OF PRESENT ILLNESS: The patient is a 28 y.o. 29w4d. Patient presents with a chief complaint as above and is being admitted for observation and BMZ + Magnesium. Patient reports she has been leaking for 3 weeks now. She was evaluated in [place] initially at that time with amnisure that [...] PROVIDER: Dr. Mancia DISPOSITION: Admit to L&D [facility] URINE CULTUREon 03-06-2024 Bacteria identified Cx Nom (U) URINE CULTURE Reference No growth (<1,000 CFU/mL) [ S = SUSCEPTIBLE R = RESISTANT I = INTERMEDIATE S-DD = Susceptible-dose dependent NS = Non-susceptible NO = No Interpretation ] [facility] Comment on above: Performed By: #### L [id number] ####Clerk Supervisor: GYPSY DAY ([phone])[facility] ([address] Absolute lymphocyte countOrd ered By: Julianna Villareal on 10-25-2023 Lymphocytes Auto (Unsp spec) [#/Vol] 2.65 10*3/uL 0.83-4.51 [facility] Automated lymphocyte count a s percentage of total leukocytesOrdered By: Julianna Villareal on 10-25-2023 Lymphocytes/100 WBC Auto (Unsp spec) 27.5 % 19-41 [facility] Basophil percentageOrdered B y: Julianna Villareal on 10-25-2023 Basophils/100 WBC (Bld) 0.4 % 0-1 [facility] Eosinophils/100 WBC (Bld) 1.6 % 0-5 [facility] Hemoglobin (Bld) [Mass/Vol] 13.4 g/dL 12.0-15.0 [facility] Monocytes/100 WBC (Bld) 7.3 % 0-10 [facility] Neutrophils (Bld) [#/Vol] 6.1 10*3/uL 2.0-7.7 [facility] Neutrophils/100 WBC (Bld) 62.8 % 47-70 [facility] WBC (Bld) [#/Vol] 9.6 10*3/uL 4.4-11.0 [facility] Culture, urineOrdered By: Lul Bauer on 10-25-2023 Bacteria identified Cx Nom (U) Culture exhibits no growth. [facility] Determination of erythrocyte mean corpuscular volume (MCV)Ordered By: Julianna Villareal on 10-25-2023 MCV (RBC) [Entitic vol] 88.4 fL 81-99 [facility] Erythrocyte distribution wid th ratioOrdered By: Julianna Villareal on 10-25-2023 Erythrocyte distribution width (RBC) [Ratio] 13.9 % 11.6-14.6 [facility] Erythrocyte distribution wid th standard deviationOrdered By: Julianna Villareal on 10-25-2023 Erythrocyte distribution width (RBC) [Entitic vol] 44.7 fL 35.1-43.9 [facility] HIV 1 and HIV-2 antibody ass ay with HIV-1 p24 antigen detectionOrdered By: Julianna Villareal on 10-25-2023 HIV 1+2 Ab+HIV1 p24 Ag IA Ql Non-Reactive Nonreactive [facility] Hematocrit Auto (Bld) [Volum e fraction]Ordered By: Julianna Villareal on 10-25-2023 Hematocrit (Bld) [Volume fraction] 40.5 % 37-47 [facility] Immature granulocytes/100 WB C Auto (Bld)Ordered By: Julianna Villareal on 10-25-2023 Immature granulocytes/100 WBC (Bld) 0.400 % 0.0-0.9 [facility] Comment on above: IG% - Immature Granu locytes (promyelocytes, myelocytes and metamyelocytes) > 1% indicates that a LEFT SHIFT is Present. Laboratory - Chemistry and C hemistry - challengeon 10-25-2023 Glucose Ql (U) Negative [facility] Laboratory - Hematology and Cell countsOrdered By: Julianna Villareal on 10-25-2023 MCH (RBC) [Entitic mass] 29.3 pg 27.0-32.0 [facility] MCHC (RBC) [Mass/Vol] 33.1 g/dL 32-36 [facility] Nucleated RBC/100 WBC (Bld) [Ratio] 0 % 0-5 [facility] Platelet mean volume (Bld) [Entitic vol] 8.7 fL 6.2-12.0 [facility] Platelets (Bld) [#/Vol] 286 10*3/uL 150-450 [facility] Laboratory - Urinalysison Protein Ql (U) Negative [facility] No Panel InformationOrdered By: Julianna Villareal on 10-25-2023 Hepatitis B Surface Antigen Non-Reactive Nonreactive [facility] Hepatitis C Antibody Non-Reactive Nonreactive [facility] Comment on above: Non Reactive: < 0.8 Equivocal: >/= 0.8 to < 1.0 Reactive: >/= 1.0The CDC requires that a reactive/equivocal HCV antibody result be sent out for confirmation. HCV Quant by PCR testing. Miscellaneous Test Comment SEE SCANNED REPORT [facility] Rubella IgG Antibody Reactive Nonreactive [facility] Comment on above: Antibody Results Int erpretation of Immune Status Non Reactive Presumed Non-Immune Equivocal Equivocal Reactive Presumed Immune RBC Auto (Bld) [#/Vol]Ordere d By: Julianna Villareal on 10-25-2023 RBC (Bld) [#/Vol] 4.58 10*6/uL 4.2-5.4 [facility] Serum Treponema species anti body detectionOrdered By: Julianna Villareal on 10-25-2023 Treponema sp Ab Ql (S) Non-Reactive [facility] Whole blood hemoglobin A1c/t otal hemoglobin ratio (mass fraction)Ordered By: Venessa Newby on 10-25-2023 HbA1c (Bld) [Mass fraction] 5.1 % 3.8-5.6 [facility] Comment on above: Normal < 5.7 % Predi abetic 5.7 - 6.4 % Diabetic >or= 6.5 % Please note range changes. Cervical or vagninal specime n microscopic examination by cytology stain (reported asOrdered By: Venessa Newby on 10-12-2023 Cytology report Cyto stain Doc (Cvx/Vag) Comment . [facility] Comment on above: The Pap smear is [...] rRNA EDUARDO+probe Ql (Unsp spec) Negative Negative [facility] Laboratory - CytologyOrdered By: Venessa Newby on 10-12-2023 [employer] Director Cyto stain Nom (Cvx/Vag) [ID] Comment . [facility] Comment on above: Luther Dobson totechnologist (ASCP) Laboratory - Microbiology an d Antimicrobial susceptibilityOrdered By: Julianna Villareal on 10-12-2023 N. gonorrhoeae DNA EDUARDO+probe Ql (Unsp spec) Negative Negative [facility] Comment on above: Performed at: = - [address] [id number] Director: Machelle Ambrocio MD, Phone: [phone] Laboratory - Miscellaneous t estsOrdered By: Venessa Newby on 10-12-2023 Service comment (Unsp spec) [Interp] . . [facility] No Panel InformationOrdered By: Venessa Newby on 10-12-2023 Human Papillomavirus Screen Comment . [facility] Comment on above: The HPV DNA reflex c kathryn were not met with this specimenresult therefore, no HPV testing was performed.Performed at: [facility] [id number] [place], [place] [id number] Director: Washington Calvo MD, Phone: [phone] at: [facility] - [facility] [id number] Director: Machelle Ambrocio MD, Phone: [phone] Thin prep Papanicolaou smear with manual screeningOrdered By: Venessa Newby on 10-12-2023 Thin prep Papanicolaou smear with manual screening Comment . [facility] Comment on above: NEGATIVE FOR INTRAEP ITHELIAL LESION OR MALIGNANCY. This liquid based Th inPrep(R) pap test was screened withthe use of an image guided system. No Panel InformationOrdered By: Yola Schaffer on 09-29-2023 Estradiol (E2) Level 911.3 pg/mL [facility] Comment on above: NORMAL REFERENCE RAN [...] Schaffer on 09-29-2023 HCG ( test) Ql 80055 mIU/mL <4 [facility] Comment on above: hCG levels with Gest ational AgeGestational Age hCG mIU/mL (IU/L)0.2 - 1 week 5 - 501-2 weeks 50 - 5002-3 weeks 100 - 81316-6 weeks 500 - 438617-8 weeks 1000 - 612815-0 weeks 91580 - 100,0006-8 weeks 67083 - 200,0002-3 months 26326 - 100,000 Serum or plasma progesterone measurement (mass/volume)Ordered By: Yola Schaffer on 09-29-2023 Progesterone [Mass/Vol] 51.51 ng/mL See Comment [facility] Comment on above: Progesterone Referen ce Table: UNITS Female: Follicular 0.15 - 1.40 ng/mL Luteal 3.34 - 25.56 ng/mL Mid-luteal 4.44 - 28.03 ng/mL Postmenopausal 0.0 - 0.73 ng/mL : 1st Trimester 11.22 - 90.00 ng/mL 2nd Trimester 25.55 - 89.40 ng/mL 3rd Trimester 48.40 -422.50 ng/mL No Panel InformationOrdered By: Yola Schaffer on 09-22-2023 Estradiol (E2) Level 839.2 pg/mL [facility] Comment on above: NORMAL REFERENCE RAN [...] HCG ( test) Ql 2686 mIU/mL <4 [facility] Comment on above: hCG levels with Gest ational AgeGestational Age hCG mIU/mL (IU/L)0.2 - 1 week 5 - 501-2 weeks 50 - 5002-3 weeks 100 - 45582-0 weeks 500 - 644350-3 weeks 1000 - 988944-6 weeks 03039 - 100,0006-8 weeks 72044 - 200,0002-3 months 87837 - 100,000 Serum or plasma progesterone measurement (mass/volume)Ordered By: Yola cShaffer on 09-22-2023 Progesterone [Mass/Vol] 61.23 ng/mL See Comment [facility] Comment on above: Progesterone Referen ce Table: [...] Auto (Unsp spec) [#/Vol] 2.66 10*3/uL 0.83-4.51 [facility] Automated lymphocyte count a s percentage of total leukocytesOrdered By: Karlos Miller on 09-19-2023 Lymphocytes/100 WBC Auto (Unsp spec) 16.6 % 19-41 [facility] Basophil percentageOrdered B y: Karlos Miller on 09-19-2023 Basophil percentage 0 SEEN /hpf 0-5 [facility] Basophils/100 WBC (Bld) 0.3 % 0-1 [facility] Chloride [Moles/Vol] 106 mmol/L 98-107 [facility] Eosinophils/100 WBC (Bld) 0.2 % 0-5 [facility] Glucose [Mass/Vol] 116 mg/dL 74-106 [facility] Comment on above: Fasting Glucose resu lt from 100 to 125 mg/dL suggests IMPAIRED HOMEOSTASIS per A.D.A. criteria. Hemoglobin (Bld) [Mass/Vol] 13.7 g/dL 12.0-15.0 [facility] Monocytes/100 WBC (Bld) 4.6 % 0-10 [facility] Neutrophils (Bld) [#/Vol] 12.4 10*3/uL 2.0-7.7 [facility] Neutrophils/100 WBC (Bld) 77.7 % 47-70 [facility] Potassium [Moles/Vol] 3.3 mmol/L 3.5-5.1 [facility] Sodium [Moles/Vol] 140 mmol/L 136-145 [facility] WBC (Bld) [#/Vol] 16.0 10*3/uL 4.4-11.0 [facility] Bilirubin Test strip Ql (U)O rdered By: Karlos Miller on 09-19-2023 Bilirubin Ql (U) Negative Negative [facility] Determination of erythrocyte mean corpuscular volume (MCV)Ordered By: Karlos Miller on 09-19-2023 MCV (RBC) [Entitic vol] 90.3 fL 81-99 [facility] Erythrocyte distribution wid th ratioOrdered By: Karlos Miller on 09-19-2023 Erythrocyte distribution width (RBC) [Ratio] 13.7 % 11.6-14.6 [facility] Erythrocyte distribution wid th standard deviationOrdered By: Karlos Miller on 09-19-2023 Erythrocyte distribution width (RBC) [Entitic vol] 45.1 fL 35.1-43.9 [facility] Hematocrit Auto (Bld) [Volum e fraction]Ordered By: Karlos Miller on 09-19-2023 Hematocrit (Bld) [Volume fraction] 42.8 % 37-47 [facility] Immature granulocytes/100 WB C Auto (Bld)Ordered By: Karlos Miller on 09-19-2023 Immature granulocytes/100 WBC (Bld) 0.600 % 0.0-0.9 [facility] Comment on above: IG% - Immature Granu locytes (promyelocytes, myelocytes and metamyelocytes) > 1% indicates that a LEFT SHIFT is Present. Ketones Test strip Ql (U)Ord ered By: Karlos Miller on 09-19-2023 Ketones Ql (U) Negative Negative [facility] Laboratory - Chemistry and C hemistry - challengeOrdered By: Karlos Miller on 09-19-2023 CO2 [Moles/Vol] 23.0 mmol/L 21.0-32.0 [facility] Urea nitrogen/Creatinine [Mass ratio] 12.3 mg/mg 10-20 [facility] Laboratory - Hematology and Cell countsOrdered By: Karlos Miller on 09-19-2023 MCH (RBC) [Entitic mass] 28.9 pg 27.0-32.0 [facility] MCHC (RBC) [Mass/Vol] 32.0 g/dL 32-36 [facility] Nucleated RBC/100 WBC (Bld) [Ratio] 0 % 0-5 [facility] Platelet mean volume (Bld) [Entitic vol] 8.7 fL 6.2-12.0 [facility] Platelets (Bld) [#/Vol] 312 10*3/uL 150-450 [facility] Mucus LM Ql (Urine sed)Order ed By: Karlos Miller on 09-19-2023 Mucus Ql (Urine sed) 0 SEEN /hpf [facility] Nitrite Test strip Ql (U)Ord ered By: Karlos Miller on 09-19-2023 Nitrite Ql (U) Negative Negative [facility] No Panel InformationOrdered By: Karlos Miller on 09-19-2023 Urine RBC 5-10 SEEN /hpf 0-5 [facility] Estimated Creatinine Clearance Calc 126.10 ml/min [facility] Estimated GFR (MDRD) Amer 141 mL/min >60 [facility] Comment on above: GFR Calc Estimated GFR (MDRD) Non-Af Amer 117 mL/min >60 [facility] Comment on above: Non- GFR Calc Protein Test strip Ql (U)Ord ered By: Karlos Miller on 09-19-2023 Protein Ql (U) Negative Negative [facility] RBC Auto (Bld) [#/Vol]Ordere d By: Karlos Miller on 09-19-2023 RBC (Bld) [#/Vol] 4.74 10*6/uL 4.2-5.4 [facility] Serum or plasma calcium shannon urement (mass/volume)Ordered By: Karlos Miller on 09-19-2023 Calcium [Mass/Vol] 8.7 mg/dL 8.5-10.1 [facility] Serum or plasma choriogonado tropin detectionOrdered By: Karlos Miller on 09-19-2023 HCG ( test) Ql 1366 mIU/mL <4 [facility] Comment on above: hCG levels with Gest ational AgeGestational Age hCG mIU/mL (IU/L)0.2 - 1 week 5 - 501-2 weeks 50 - 5002-3 weeks 100 - 79726-8 weeks 500 - 329043-2 weeks 1000 - 001677-3 weeks 67160 - 100,0006-8 weeks 59750 - 200,0002-3 months 63732 - 100,000 Serum or plasma creatinine m easurement (mass/volume)Ordered By: Karlos Miller on 09-19-2023 Creatinine [Mass/Vol] 0.65 mg/dL 0.55-1.02 [facility] Comment on above: The validity of the calculated GFR & GFRAA in patients over 70 years has not been determined. Clinical correlation is essential. Serum or plasma urea nitroge n measurement (mass/volume)Ordered By: Karlos Miller on 09-19-2023 Urea nitrogen [Mass/Vol] 8 mg/dL 7-18 [facility] Squamous epithelial cells de tection in urine sediment by light microscopyOrdered By: Karlos Miller on 09-19-2023 Epithelial cells.squamous LM Ql (Urine sed) 0 SEEN /hpf 5-10 [facility] Thin prep Papanicolaou smear with manual screeningOrdered By: Karlos Miller on 09-19-2023 Thin prep Papanicolaou smear with manual screening 11 5-15 [facility] Urine blood detectionOrdered By: Karlos Miller on 09-19-2023 RBC Ql (U) 50 /ul Negative [facility] Urine clarityOrdered By: Jen Miller on 09-19-2023 Clarity (U) Sl. Cloudy Clear [facility] Urine color determinationOrd ered By: Karlos Miller on 09-19-2023 Color (U) Yellow Yellow [facility] Urine glucose detectionOrder ed By: Karlos Miller on 09-19-2023 Glucose Ql (U) Normal mg/dl Normal [facility] Urine leukocyte esterase det ection by dipstickOrdered By: Karlos Miller on 09-19-2023 Leukocyte esterase Test strip Ql (U) Negative Negative [facility] Urine pHOrdered By: Karlos stanford on 09-19-2023 pH (U) 8.0 [pH] 5.0 - 8.0 [facility] Urine sediment bacteria coun t by microscopy (number/high power field)Ordered By: Karlos Miller on 09-19-2023 Bacteria LM.HPF (Urine sed) [#/Area] 0 /[HPF] None Seen [facility] Urine specific gravity measu rementOrdered By: Karlos Miller on 09-19-2023 Specific gravity (U) [Rel density] 1.010 1.002-1.030 [facility] Urine urobilinogen measureme ntOrdered By: Karlos Miller on 09-19-2023 Urobilinogen Ql (U) Normal mg/dl Normal [facility] No Panel InformationOrdered By: Yola Schaffer on 09-15-2023 Estradiol (E2) Level 998.4 pg/mL [facility] Comment on above: NORMAL REFERENCE RAN GES FEMALE FOLLICULAR 21.4 - 164.8 pg/mL MID-CYCLE PEAK 49.9 - 367.2 pg/mL LUTEAL 40.2 - 259.0 pg/mL POST-MENOPAUSAL ON MHT <11.0 - 462.1 pg/mL NOT ON MHT <11.0 - 58.3 pg/mL MALE <11.0 - 52.5 pg/mL NOTE:Attributor HAS CONFIRMED THE DRUG FULVETRANT (FASLODEX) MAY CAUSE FALSELY ELEVATED ESTRADIOL RESULTS WHEN USING THIS TEST METHOD. IF PATIENT IS TAKING FULVESTRANT AN ALTERNATIVE METHOD SHOULD BE USED TO DETERMINE ESTRADIOL CONCENTRATION. Serum or plasma choriogonado tropin detectionOrdered By: Yola Schaffer on 09-15-2023 HCG ( test) Ql 321 mIU/mL <4 [facility] Comment on above: hCG levels with Gest ational AgeGestational Age hCG mIU/mL (IU/L)0.2 - 1 week 5 - 501-2 weeks 50 - 5002-3 weeks 100 - 00515-5 weeks 500 - 075133-4 weeks 1000 - 437852-0 weeks 61711 - 100,0006-8 weeks 61045 - 200,0002-3 months 32000 - 100,000 Serum or plasma progesterone measurement (mass/volume)Ordered By: Yola Schaffer on 09-15-2023 Progesterone [Mass/Vol] 53.34 ng/mL See Comment [facility] Comment on above: Progesterone Referen ce Table: UNITS Female: Follicular 0.15 - 1.40 ng/mL Luteal 3.34 - 25.56 ng/mL Mid-luteal 4.44 - 28.03 ng/mL Postmenopausal 0.0 - 0.73 ng/mL : 1st Trimester 11.22 - 90.00 ng/mL 2nd Trimester 25.55 - 89.40 ng/mL 3rd Trimester 48.40 -422.50 ng/mL No Panel InformationOrdered By: Yola Schaffer on 09-13-2023 Estradiol (E2) Level 631.1 pg/mL [facility] Comment on above: NORMAL REFERENCE RAN GES FEMALE FOLLICULAR 21.4 - 164.8 pg/mL MID-CYCLE PEAK 49.9 - 367.2 pg/mL LUTEAL 40.2 - 259.0 pg/mL POST-MENOPAUSAL ON MHT <11.0 - 462.1 pg/mL NOT ON MHT <11.0 - 58.3 pg/mL MALE <11.0 - 52.5 pg/mL NOTE:Attributor HAS CONFIRMED THE DRUG FULVETRANT (FASLODEX) MAY CAUSE FALSELY ELEVATED ESTRADIOL RESULTS WHEN USING THIS TEST METHOD. IF PATIENT IS TAKING FULVESTRANT AN ALTERNATIVE METHOD SHOULD BE USED TO DETERMINE ESTRADIOL CONCENTRATION. Serum or plasma choriogonado tropin detectionOrdered By: Yola Schaffer on 09-13-2023 HCG ( test) Ql 142 mIU/mL <4 [facility] Comment on above: hCG levels with Gest ational AgeGestational Age hCG mIU/mL (IU/L)0.2 - 1 week 5 - 501-2 weeks 50 - 5002-3 weeks 100 - 77790-2 weeks 500 - 365274-8 weeks 1000 - 137809-4 weeks 51774 - 100,0006-8 weeks 42630 - 200,0002-3 months 57566 - 100,000 Serum or plasma progesterone measurement (mass/volume)Ordered By: Yola Schaffer on 09-13-2023 Progesterone [Mass/Vol] 68.72 ng/mL See Comment [facility] Comment on above: Progesterone Referen ce Table: [...] on 09-13-2023 TSH Qn 1.89 uIU/mL 0.358-3.74 [facility] Serum or plasma choriogonado tropin detectionOrdered By: Yola Schaffer on 2023 HCG ( test) Ql 86 mIU/mL <4 [facility] Comment on above: hCG levels with Gest ational AgeGestational Age hCG mIU/mL (IU/L)0.2 - 1 week 5 - 501-2 weeks 50 - 5002-3 weeks 100 - 18686-4 weeks 500 - 462336-1 weeks 1000 - 351121-6 weeks 81188 - 100,0006-8 weeks 32477 - 200,0002-3 months 91456 - 100,000 Serum or plasma progesterone measurement (mass/volume)Ordered By: Yola Schaffer on 2023 Progesterone [Mass/Vol] 73.77 ng/mL See Comment [facility] Comment on above: Progesterone Referen ce Table: UNITS Female: Follicular 0.15 - 1.40 ng/mL Luteal 3.34 - 25.56 ng/mL Mid-luteal 4.44 - 28.03 ng/mL Postmenopausal 0.0 - 0.73 ng/mL : 1st Trimester 11.22 - 90.00 ng/mL 2nd Trimester 25.55 - 89.40 ng/mL 3rd Trimester 48.40 -422.50 ng/mL No Panel InformationOrdered By: Yola Schaffer on 09-06-2023 Estradiol (E2) Level 586.2 pg/mL [facility] Comment on above: NORMAL REFERENCE RAN [...] 09-06-2023 Progesterone [Mass/Vol] 66.90 ng/mL See Comment [facility] Comment on above: Progesterone Referen ce Table: UNITS Female: Follicular 0.15 - 1.40 ng/mL Luteal 3.34 - 25.56 ng/mL Mid-luteal 4.44 - 28.03 ng/mL Postmenopausal 0.0 - 0.73 ng/mL : 1st Trimester 11.22 - 90.00 ng/mL 2nd Trimester 25.55 - 89.40 ng/mL 3rd Trimester 48.40 -422.50 ng/mL No Panel InformationOrdered By: Yola Schaffer on 08-25-2023 Estradiol (E2) Level 1350.2 pg/mL [facility] Comment on above: NORMAL REFERENCE RAN GES FEMALE FOLLICULAR 21.4 - 164.8 pg/mL MID-CYCLE PEAK 49.9 - 367.2 pg/mL LUTEAL 40.2 - 259.0 pg/mL POST-MENOPAUSAL ON MHT <11.0 - 462.1 pg/mL NOT ON MHT <11.0 - 58.3 pg/mL MALE <11.0 - 52.5 pg/mL NOTE:Attributor HAS CONFIRMED THE DRUG FULVETRANT (FASLODEX) MAY CAUSE FALSELY ELEVATED ESTRADIOL RESULTS WHEN USING THIS TEST METHOD. IF PATIENT IS TAKING FULVESTRANT AN ALTERNATIVE METHOD SHOULD BE USED TO DETERMINE ESTRADIOL CONCENTRATION. Luteinizing Hormone 11.8 mIU/mL [facility] Comment on above: NORMAL REFERENCE RAN GES FEMALE FOLLICULAR 1.9 - 26.2 mIU/mL MID-CYCLE PEAK 22.8 - 76.1 mIU/mL LUTEAL 0.6 - 16.6 mIU/mL POST-MENOPAUSAL ON MHT 1.1 - 52.4 mIU/mL NOT ON MHT 8.6 - 61.8 mIU/mL MALE 1.2 - 10.6 mIU/mL Serum or plasma progesterone measurement (mass/volume)Ordered By: Yola Schaffer on 08-25-2023 Progesterone [Mass/Vol] 0.27 ng/mL See Comment [facility] Comment on above: Progesterone Referen ce Table: UNITS Female: Follicular 0.15 - 1.40 ng/mL Luteal 3.34 - 25.56 ng/mL Mid-luteal 4.44 - 28.03 ng/mL Postmenopausal 0.0 - 0.73 ng/mL : 1st Trimester 11.22 - 90.00 ng/mL 2nd Trimester 25.55 - 89.40 ng/mL 3rd Trimester 48.40 -422.50 ng/mL No Panel InformationOrdered By: Yola Schaffer on 08-23-2023 Estradiol (E2) Level 104.4 pg/mL [facility] Comment on above: NORMAL REFERENCE RAN GES FEMALE FOLLICULAR 21.4 - 164.8 pg/mL MID-CYCLE PEAK 49.9 - 367.2 pg/mL LUTEAL 40.2 - 259.0 pg/mL POST-MENOPAUSAL ON MHT <11.0 - 462.1 pg/mL NOT ON MHT <11.0 - 58.3 pg/mL MALE <11.0 - 52.5 pg/mL NOTE:Attributor HAS CONFIRMED THE DRUG FULVETRANT (FASLODEX) MAY CAUSE FALSELY ELEVATED ESTRADIOL RESULTS WHEN USING THIS TEST METHOD. IF PATIENT IS TAKING FULVESTRANT AN ALTERNATIVE METHOD SHOULD BE USED TO DETERMINE ESTRADIOL CONCENTRATION. Luteinizing Hormone 7.7 mIU/mL [facility] Comment on above: NORMAL REFERENCE RAN GES FEMALE FOLLICULAR 1.9 - 26.2 mIU/mL MID-CYCLE PEAK 22.8 - 76.1 mIU/mL LUTEAL 0.6 - 16.6 mIU/mL POST-MENOPAUSAL ON MHT 1.1 - 52.4 mIU/mL NOT ON MHT 8.6 - 61.8 mIU/mL MALE 1.2 - 10.6 mIU/mL Serum or plasma progesterone measurement (mass/volume)Ordered By: Yola Schaffer on 08-23-2023 Progesterone [Mass/Vol] ng/mL See Comment [facility] Comment on above: Progesterone Referen ce Table: UNITS Female: Follicular 0.15 - 1.40 ng/mL Luteal 3.34 - 25.56 ng/mL Mid-luteal 4.44 - 28.03 ng/mL Postmenopausal 0.0 - 0.73 ng/mL : 1st Trimester 11.22 - 90.00 ng/mL 2nd Trimester 25.55 - 89.40 ng/mL 3rd Trimester 48.40 -422.50 ng/mL No Panel InformationOrdered By: Yola Schaffer on 08-21-2023 Estradiol (E2) Level 30.4 pg/mL [facility] Comment on above: NORMAL REFERENCE [...] DETERMINE ESTRADIOL CONCENTRATION. Luteinizing Hormone 21.7 mIU/mL [facility] Comment on above: NORMAL REFERENCE RAN GES FEMALE FOLLICULAR 1.9 - 26.2 mIU/mL MID-CYCLE PEAK 22.8 - 76.1 mIU/mL LUTEAL 0.6 - 16.6 mIU/mL POST-MENOPAUSAL ON MHT 1.1 - 52.4 mIU/mL NOT ON MHT 8.6 - 61.8 mIU/mL MALE 1.2 - 10.6 mIU/mL Serum or plasma progesterone measurement (mass/volume)Ordered By: Yola Schaffer on 08-21-2023 Progesterone [Mass/Vol] ng/mL See Comment [facility] Comment on above: Progesterone Referen ce Table: UNITS Female: Follicular 0.15 - 1.40 ng/mL Luteal 3.34 - 25.56 ng/mL Mid-luteal 4.44 - 28.03 ng/mL Postmenopausal 0.0 - 0.73 ng/mL : 1st Trimester 11.22 - 90.00 ng/mL 2nd Trimester 25.55 - 89.40 ng/mL 3rd Trimester 48.40 -422.50 ng/mL No Panel InformationOrdered By: Yola Schaffer on 08-15-2023 Estradiol (E2) Level 42.6 pg/mL [facility] Comment on above: NORMAL REFERENCE [...] ESTRADIOL CONCENTRATION. Follicle Stimulating Hormone 5.0 mIU/mL [facility] Comment on above: NORMAL REFERENCE RAN GES FEMALE FOLLICULAR 2.3 - 12.6 mIU/mL MID-CYCLE PEAK 5.2 - 17.5 mIU/mL LUTEAL 1.7 - 12.9 mIU/mL POST-MENOPAUSAL ON MHT 5.9 - 72.8 mIU/mL NOT ON MHT 12.7 - 132.2 mlU/mL MALE 0.7 - 10.8 mIU/mL Luteinizing Hormone 4.9 mIU/mL [facility] Comment on above: NORMAL REFERENCE RAN GES FEMALE FOLLICULAR 1.9 - 26.2 mIU/mL MID-CYCLE PEAK 22.8 - 76.1 mIU/mL LUTEAL 0.6 - 16.6 mIU/mL POST-MENOPAUSAL ON MHT 1.1 - 52.4 mIU/mL NOT ON MHT 8.6 - 61.8 mIU/mL MALE 1.2 - 10.6 mIU/mL Serum or plasma progesterone measurement (mass/volume)Ordered By: Yola Schaffer on 08-15-2023 Progesterone [Mass/Vol] 0.21 ng/mL See Comment [facility] Comment on above: Progesterone Referen ce Table: [...] on 08-15-2023 TSH Qn 2.46 uIU/mL 0.358-3.74 [facility] No Panel InformationOrdered By: Yola Schaffer on 08-07-2023 Estradiol (E2) Level 268.0 pg/mL [facility] Comment on above: NORMAL REFERENCE RAN [...] HCG ( test) Ql 13 mIU/mL <4 [facility] Comment on above: hCG levels with Gest ational AgeGestational Age hCG mIU/mL (IU/L)0.2 - 1 week 5 - 501-2 weeks 50 - 5002-3 weeks 100 - 53459-7 weeks 500 - 457570-9 weeks 1000 - 070310-9 weeks 83078 - 100,0006-8 weeks 05246 - 200,0002-3 months 10302 - 100,000 Serum or plasma progesterone measurement (mass/volume)Ordered By: Yola Schaffer on 08-07-2023 Progesterone [Mass/Vol] 41.43 ng/mL See Comment [facility] Comment on above: Progesterone Referen ce Table: [...] on 08-05-2023 E2 IA [Moles/Vol] 276.2 pg/mL [facility] Comment on above: NORMAL REFERENCE [...] HCG ( test) Ql 31 mIU/mL <4 [facility] Comment on above: hCG levels with Gest ational AgeGestational Age hCG mIU/mL (IU/L)0.2 - 1 week 5 - 501-2 weeks 50 - 5002-3 weeks 100 - 89216-3 weeks 500 - 208022-4 weeks 1000 - 707857-8 weeks 73174 - 100,0006-8 weeks 33532 - 200,0002-3 months 47378 - 100,000 Serum or plasma progesterone measurement (mass/volume)Ordered By: Yola Schaffer on 08-05-2023 Progesterone [Mass/Vol] 53.90 ng/mL See Comment [facility] Comment on above: Progesterone Referen ce Table: [...] on 08-05-2023 TSH Qn 2.49 uIU/mL 0.358-3.74 [facility] Serum or plasma choriogonado tropin detectionOrdered By: Yola Schaffer on 08-03-2023 HCG ( test) Ql 36 mIU/mL <4 [facility] Comment on above: hCG levels with Gest ational AgeGestational Age hCG mIU/mL (IU/L)0.2 - 1 week 5 - 501-2 weeks 50 - 5002-3 weeks 100 - 60263-4 weeks 500 - 864982-1 weeks 1000 - 515562-1 weeks 94140 - 100,0006-8 weeks 63695 - 200,0002-3 months 66837 - 100,000 Serum or plasma progesterone measurement (mass/volume)Ordered By: Yola Schaffer on 08-03-2023 Progesterone [Mass/Vol] 49.44 ng/mL See Comment [facility] Comment on above: Progesterone Referen ce Table: UNITS Female: Follicular 0.15 - 1.40 ng/mL Luteal 3.34 - 25.56 ng/mL Mid-luteal 4.44 - 28.03 ng/mL Postmenopausal 0.0 - 0.73 ng/mL : 1st Trimester 11.22 - 90.00 ng/mL 2nd Trimester 25.55 - 89.40 ng/mL 3rd Trimester 48.40 -422.50 ng/mL Estradiol measurementOrdered By: Yola Schaffer on 07-29-2023 E2 IA [Moles/Vol] 279.0 pg/mL [facility] Comment on above: NORMAL REFERENCE [...] 07-29-2023 Progesterone [Mass/Vol] 54.70 ng/mL See Comment [facility] Comment on above: Progesterone Referen ce Table: UNITS Female: Follicular 0.15 - 1.40 ng/mL Luteal 3.34 - 25.56 ng/mL Mid-luteal 4.44 - 28.03 ng/mL Postmenopausal 0.0 - 0.73 ng/mL : 1st Trimester 11.22 - 90.00 ng/mL 2nd Trimester 25.55 - 89.40 ng/mL 3rd Trimester 48.40 -422.50 ng/mL ANTI MULLERIAN HORMONEon Mullerian inhibiting substance [Mass/Vol] 4.43 ng/mL Normal 0.89-9.85 [facility] Comment on above: Order Comment: Speci men Type: BLOOD SPECIMEN Ordering Facility: [facility] Address: [address] [place] [address] Performed By: #### 2 842-3, AMINAH, 03894-3, 49256-9, 5195-3, 89223-4, TISH, 51650-7 #### [facility] CLIA [id number] [address] [address] [place] HBV surface Ag Ser Qlon HBV surface Ag Ql (S) Negative Normal Negative [facility] Comment on above: Order Comment: Speci men Type: BLOOD SPECIMEN Ordering Facility: [facility] Address: [address] [place] [address] Performed By: #### 2 842-3, AMINAH, 96277-2, 09290-8, 5195-3, 95872-9, WINSTON, 82360-5 #### [facility] CLIA [id number] [address] [place] HCV Ab Ser Qlon 05-03-2023 HCV Ab Ql (S) Negative Normal Negative [facility] Comment on above: Order Comment: Rhina dowd Type: BLOOD SPECIMEN Ordering Facility: [facility] [place] [id number] Result Comment: The result suggests no evidence of active infection with Hepatitis C virus. Should recent infection be suspected, repeat testing may be considered 4-6 weeks after this draw. Performed By: #### 2 842-3, AMINAH, 23171-9, 68770-4, 5195-3, 75542-7, TISH, 07144-8 #### [facility] CLIA [id number] [address] [place] [address] [place] HbA1c (Bld)on 05-03-2023 Average glucose Estimated from glycated hemoglobin (Bld) [Mass/Vol] 97 mg/dL Normal [facility] Comment on above: Order Comment: Rhina dowd Type: BLOOD SPECIMEN Ordering Facility: [facility] Address: [address] [place] [address] Result Comment: eAG: (Estimated average glucose) is a calculated value from HgbA1c and is in store marketing representative of the average blood glucose level in the last 2-3 month period. Performed By: #### 2 842-3, AMINAH, 76941-4, 43590-9, 5195-3, 07098-0, TISH, 49136-2 #### [facility] CLIA [id number] [facility] [place] [id number] [place] HbA1c (Bld) [Mass fraction] 5.0 % Normal 4.3-5.6 [facility] Comment on above: Order Comment: Rhina dowd Type: BLOOD SPECIMEN Ordering Facility: [facility] Address: [address] [place], [place] [id number] Result Comment: [place] Diabetes Association guidelines indicate that patients with HgbA1c in the range 5.7-6.4% are at increased risk for development of diabetes, and intervention by lifestyle modification may be beneficial. HgbA1c greater or equal to 6.5% is considered diagnostic of diabetes. Performed By: #### 2 842-3, AMINAH, 13773-7, 79754-8, 5195-3, 32874-7, TISH, 80848-3 #### [facility] CLIA [id number] [address] [place] [id number] [place] Prolactin SerPl-mCncon 05-03 Prolactin [Mass/Vol] 10.1 ng/mL Normal 4.5-26.8 [facility] Comment on above: Order Comment: Specdarcy dowd Type: BLOOD SPECIMEN Ordering Facility: [facility] Address: [facility] [place] [address] Result Comment: Prol actin test is performed using the [employer] Electrochemiluminescence Immunoassay method. Results obtained with different methods or kits cannot be used interchangeably. Performed By: #### 2 842-3, AMINAH, 15592-9, 45247-9, 51953, 07739-7, TISH, #### [facility] CLIA [id number] [address] [place] [address] [place] RPR Ser Qlon 05-03-2023 Reagin Ab RPR Ql (S) Non-Reactive Normal Nonreactive C [facility] Comment on above: Order Comment: Rhina dowd Type: BLOOD SPECIMEN Ordering Facility: [facility] Address: [facility] [place] [address] Result Comment: Rapi d plasma reagin (RPR) test detects non-treponemal antibodies. RPR may be reactive in a variety of infectious and non-infectious conditions. Correlation with clinical picture and with treponemal antibody results is required for final interpretation. Performed By: #### 2 842-3, AMINAH, 16351-3, 20003-4, 5195-3, 53417-8, TISH, 22139-1 #### [facility] CLIA [id number] [address] [place] [id number] [place] RUBELLA IGG ABon 05-03-2023 RUBELLA IGG AB, QUAL Positive Normal Positive [facility] Comment on above: Order Comment: Speci men Type: BLOOD SPECIMEN Ordering Facility: [facility] Address: [facility] [place] [address] Result Comment: The result suggests recent or past exposure to Rubella virus or history of Rubella vaccination. Positive result may also be seen due to presence of passively-transferred antibodies. Please correlate with patient's history. Performed By: #### 2 842-3, RUBKEE, 65962-4, 23379-1, 5195-3, 63703-3, TISH, 15210-9 #### [facility] CLIA [id number] [address] [place] [address] [place] Reagin and Treponema pallidu m IgG and IgM [Interp]on 05-03-2023 T. pallidum IgG+IgM IA Ql (S) Non-Reactive Normal Nonreactive [facility] Comment on above: Order Comment: Speci [facility] Type: BLOOD SPECIMEN Ordering Facility: [facility] Address: [facility] [place] [address] Performed By: #### 2 842-3, RUBDOMINIKG, 21682-2, 97909-6, 5-3, 42988-3, TISH, 14697-9 #### [facility] CLIA [id number] [address] [place] [address] [place] Reagin+T pallidum IgG+IgM Se rPl-Impon 05-03-2023 Reagin and Treponema pallidum IgG and IgM [Interp] Cannot exclude recent Treponemal infection if specimen collected within 7-10 days after appearance of suspect lesions or 2-3 weeks after an exposure. Clinical correlation is required. Normal [facility] Comment on above: Order Comment: [facility] Type: BLOOD SPECIMEN Ordering Facility: [facility] Address: [facility] [place] [address] Performed By: #### 2 842-3, RUBIGG, 93253-8, 98717-1, 5195-3, 85860-0, WINSTON, 90071-7 #### [facility] CLIA [id number] [address] [place] [address] [place] Serum or plasma progesterone measurement (mass/volume)Ordered By: Julianna Villareal on 03-07-2023 Progesterone [Mass/Vol] 9.21 ng/mL See Comment [facility] Comment on above: Progesterone Referen ce Table: [...] 01-20-2023 Progesterone [Mass/Vol] 0.63 ng/mL See Comment [facility] Comment on above: Progesterone Referen ce Table: UNITS Female: Follicular 0.15 - 1.40 ng/mL Luteal 3.34 - 25.56 ng/mL Mid-luteal 4.44 - 28.03 ng/mL Postmenopausal 0.0 - 0.73 ng/mL : 1st Trimester 11.22 - 90.00 ng/mL 2nd Trimester 25.55 - 89.40 ng/mL 3rd Trimester 48.40 -422.50 ng/mL Serum or plasma prolactin me asurement (mass/volume)Ordered By: Julianna Villareal on 01-20-2023 Prolactin [Mass/Vol] 16.0 ng/mL [facility] Comment on above: NORMAL REFERENCE RAN GES FEMALE NON- 2.2 - 30.3 ng/mL 8.1 - 347.6 ng/mL POST-MENOPAUSAL 0.7 - 31.5 ng/mL MALE 2.5 - 17.4 ng/mL Basophil percentageOrdered B y: Dr. Villareal on 12-02-2022 WBC (Bld) [#/Vol] 4.8 10*3/uL 4.4-11.0 [facility] Blood erythrocytes count (nu mber/volume)Ordered By: Dr. Villareal on 12-02-2022 RBC (Bld) [#/Vol] 4.63 10*6/uL 4.2-5.4 [facility] Blood hemoglobin measurement (mass/volume)Ordered By: Dr. Villareal on 12-02-2022 Hemoglobin (Bld) [Mass/Vol] 13.6 g/dL 12.0-15.0 [facility] Blood platelet mean volumeOr dered By: Dr. Villareal on 12-02-2022 Platelet mean volume (Bld) [Entitic vol] 9.5 fL 6.2-12.0 [facility] Determination of erythrocyte mean corpuscular volume (MCV)Ordered By: Dr. Villareal on 12-02-2022 MCV (RBC) [Entitic vol] 86.6 fL 81-99 [facility] Hematocrit Auto (Bld) [Volum e fraction]Ordered By: Dr. Villareal on 12-02-2022 Hematocrit (Bld) [Volume fraction] 40.1 % 37-47 [facility] Laboratory - Chemistry and C hemistry - challengeOrdered By: Dr. Villareal on 12-02-2022 Free T4 [Mass/Vol] 1.05 ng/dL 0.76-1.46 [facility] HCG ( test) Ql (U) Negative [facility] Comment on above: Very dilute urine sp ecimens, as indicated by a low specificgravity, may not contain in store marketing representative levels of hCG. If is still suspected, a first morning urinespecimen should be collected 48 hours later and tested. Laboratory - Hematology and Cell countsOrdered By: Dr. Villareal on 12-02-2022 Erythrocyte distribution width (RBC) [Entitic vol] 41.8 fL 35.1-43.9 [facility] Erythrocyte distribution width (RBC) [Ratio] 13.3 % 11.6-14.6 [facility] MCH (RBC) [Entitic mass] 29.4 pg 27.0-32.0 [facility] MCHC Auto (RBC) [Mass/Vol]Or dered By: Dr. Villareal on 12-02-2022 MCHC (RBC) [Mass/Vol] 33.9 g/dL 32-36 [facility] No Panel InformationOrdered By: Dr. Villareal on 12-02-2022 Thyroid Stimulating Hormone (TSH) 0.95 uIU/mL 0.358-3.74 [facility] Platelets bldOrdered By: Dr. Villareal on 12-02-2022 Platelets (Bld) [#/Vol] 259 10*3/uL 150-450 [facility] Cervical or vagninal specime n microscopic examination by cytology stain (reported asOrdered By: Dr. Villareal on 10-14-2022 Cytology report Cyto stain Doc (Cvx/Vag) Comment . [facility] Comment on above: The Pap smear is a s creening test designed to aid in thedetection of premalignant and malignant conditions of theuterine cervix. It is not a diagnostic procedure andshould not be used as the sole means of detecting cervicalcancer. Both false-positive and false-negative reports dooccur. Laboratory - CytologyOrdered By: Dr. Villareal on 10-14-2022 Newscast Director Cyto stain Nom (Cvx/Vag) [ID] Comment . [facility] Comment on above: Katherine Brennan, Cytot echnologist (ASCP) Laboratory - Miscellaneous t estsOrdered By: Dr. Villareal on 10-14-2022 Service comment (Unsp spec) [Interp] Comment . [facility] Comment on above: This liquid based Th inPrep(R) pap test was screened withthe use of an image guided system. Service comment (Unsp spec) [Interp] . . [facility] No Panel InformationOrdered By: Dr. Villaeral on 10-14-2022 Human Papillomavirus Screen Comment . [facility] Comment on above: The HPV DNA reflex c kathryn were not met with this specimenresult therefore, no HPV testing was performed.Performed at: [address] [id number] Director: Machelle Ambrocio MD, Phone: [phone] Pathology report final diagnosis Narrative Comment . [facility] Comment on above: NEGATIVE FOR INTRAEP ITHELIAL LESION OR MALIGNANCY. Laboratory - Hematology and Cell countsOrdered By: Chin Edge on 09-27-2022 HbA1c (Bld) [Mass fraction] 5.3 % Normal 4.6 - 7.1 % [facility] Absolute lymphocyte counton 04-08-2022 Lymphocytes Auto (Unsp spec) [#/Vol] 3.46 10*3/uL 0.83-4.51 [facility] Work Phone: Basophil percentageon 2021 Basophils/100 WBC (Bld) 0.3 % 0-1 [facility] Work Phone: Eosinophils/100 WBC (Bld) 2.2 % 0-5 [facility] Work Phone: Neutrophils (Bld) [#/Vol] 4.8 10*3/uL 2.0-7.7 [facility] Work Phone: Neutrophils/100 WBC (Bld) 52.8 % 47-70 [facility] Work Phone: WBC (Bld) [#/Vol] 9.0 10*3/uL 4.4-11.0 [facility] Work Phone: Beta hCG serum qualon 2021 Beta HCG ( test) Ql Negative [facility] Work Phone: Blood erythrocytes count (nu mber/volume)on 04-08-2022 RBC (Bld) [#/Vol] 4.52 10*6/uL 4.2-5.4 [facility] Work Phone: Blood hemoglobin measurement (mass/volume)on 04-08-2022 Hemoglobin (Bld) [Mass/Vol] 13.1 g/dL 12.0-15.0 [facility] Work Phone: Blood lymphocytes/100 leukoc yteson 04-08-2022 Lymphocytes/100 WBC (Bld) 38.4 % 19-41 [facility] Work Phone: Blood monocytes/100 leukocyt eson 04-08-2022 Monocytes/100 WBC (Bld) 6.1 % 0-10 [facility] Work Phone: Blood platelet mean volumeon 04-08-2022 Platelet mean volume (Bld) [Entitic vol] 9.2 fL 6.2-12.0 [facility] Work Phone: Determination of erythrocyte mean corpuscular volume (MCV)on 04-08-2022 MCV (RBC) [Entitic vol] 88.9 fL 81-99 [facility] Work Phone: [phone] Hematocrit Auto (Bld) [Volum e fraction]on 04-08-2022 Hematocrit (Bld) [Volume fraction] 40.2 % 37-47 [facility] Work Phone: [phone] Laboratory - Hematology and Cell countson 04-08-2022 Erythrocyte distribution width (RBC) [Entitic vol] 41.5 fL 35.1-43.9 [facility] Work Phone: [phone] Erythrocyte distribution width (RBC) [Ratio] 12.7 % 11.6-14.6 [facility] Work Phone: [phone] Immature granulocytes/100 WBC (Bld) 0.200 % 0.0-0.9 [facility] Work Phone: [phone] Comment on above: IG% - Immature Granu locytes (promyelocytes, myelocytes and metamyelocytes) > 1% indicates that a LEFT SHIFT is Present. MCH (RBC) [Entitic mass] 29.0 pg 27.0-32.0 [facility] Work Phone: [phone] Nucleated RBC/100 WBC (Bld) [Ratio] 0 % 0-5 [facility] Work Phone: [phone] MCHC Auto (RBC) [Mass/Vol]on 04-08-2022 MCHC (RBC) [Mass/Vol] 32.6 g/dL [facility]: [phone] Platelets bldon 04-08-2022 Platelets (Bld) [#/Vol] 300 10*3/uL 150-450 [facility] Work Phone: [phone] T3, FREEon 08-04-2021 Free T3 [Mass/Vol] 3.2 pg/mL Normal 2.3-4.2 [facility] Comment on above: Performed By: #### 8 [id number], [id number] #### [facility] [address], [address] [place] [address] Clerk Supervisor: Donald Robert MD T4, FREEon 08-04-2021 Free T4 [Mass/Vol] 1.1 ng/dL Normal 0.8-1.8 [facility] Comment on above: Performed By: #### [id number], [id number] #### [facility] [address] [facility], [address] Clerk Supervisor: Donald Robert MD THYROID PEROXIDASE ANTIBODIE Son 08-04-2021 THYROID PEROXIDASE ANTIBODIES 1 IU/mL Normal <9 [facility] Comment on above: Performed By: #### 8 [id number], [id number] #### [facility] [address] [facility], 4 [place] [address] Clerk Supervisor: Donald Robert MD Laboratory - Chemistry and C hemistry - challengeon 08-03-2021 Free T3 [Mass/Vol] 3.2 pg/mL Normal 2.3 - 4.2 pg/mL [facility], [employer].; [employer], [employer] Free T4 [Mass/Vol] 1.1 ng/dL Normal 0.8 - 1.8 ng/dL [employer], [facility].; [employer], [employer] No Panel Informationon 08-03 THYROID PEROXIDASE ANTIBODIES 1 {IU/mL} Normal [employer] [facility].; [employer], [employer] Laboratory - Microbiology an d Antimicrobial susceptibilityon 05-13-2021 S. pyogenes Ag EIA Ql (Throat) Negative Normal [employer] Vital Signs Date Time Vital Sign Value Performing Clinician Facility 03-06-2025 14:35-0400 Body height 157.48 cm Marco LUNA Work Phone: [facility] 03-06-2025 14:35-0400 Body mass index (BMI) [Ratio] 31.1 kg/m2 Marco LUNA Work Phone: [facility] 03-06-2025 14:35-0400 Body weight 77.28 kg Marco LUNA Work Phone: [facility] 03-06-2025 14:35-0400 Diastolic blood pressure 80 mm[Hg] Marco Melvin PA Work Phone: [facility] 03-06-2025 14:35-0400 Systolic blood pressure 110 mm[Hg] Marco Melvin PA Work Phone: [facility] 10-14-2024 21:58-0400 Body temperature 98.2 [degF] Marco Melvin PA Work Phone: [facility] 10-14-2024 21:58-0400 Diastolic blood pressure 87 mm[Hg] Marco Melvin PA Work Phone: [phone] [place] [address] 10-14-2024 21:58-0400 Heart rate 68 /min Marco Melvin PA Work Phone: [phone])[phone] [place] [address] 10-14-2024 21:58-0400 Respiratory rate 12 /min Marco Melvin PA Work Phone: [phone] [place] [address] 10-14-2024 21:58-0400 SaO2% (BldA) [Mass fraction] 100 % Marco Melvin PA Work Phone: [phone] [place] [address] 10-14-2024 21:58-0400 Systolic blood pressure 110 mm[Hg] Marco Melvin PA Work Phone: [phone] [place] [address] 10-14-2024 18:26-0400 Body height 157.48 cm Marco Melvin PA Work Phone: [phone] [place] [address] 10-14-2024 18:26-0400 Body mass index (BMI) [Ratio] 33.9 kg/m2 Marco Melvin PA Work Phone: [facility] 10-14-2024 18:26-0400 Body weight 84.09 kg Marco Melvin PA Work Phone: [facility] 10-13-2024 09:42-0400 Diastolic blood pressure 64 mm[Hg] Barak Covarrubias MD Work Phone: [facility] 10-13-2024 09:42-0400 Heart rate 90 /min Barak Covarrubias MD Work Phone: [facility] 10-13-2024 09:42-0400 SaO2% (BldA) [Mass fraction] 100 % Barak Covarrubias MD Work Phone: [facility] 10-13-2024 09:42-0400 Systolic blood pressure 103 mm[Hg] Barak Covarrubias MD Work Phone: [facility] 10-13-2024 06:25-0400 Body mass index (BMI) [Ratio] 34.4 kg/m2 Barak Covarrubias MD Work Phone: [facility] 10-13-2024 06:25-0400 Body weight 85.32 kg Barak Covarrubias MD Work Phone: [facility] 10-13-2024 05:31-0400 Body temperature 98.01 [degF] Barak Covarrubias MD Work Phone: [facility] 10-13-2024 05:31-0400 Respiratory rate 17 /min Barak Covarrubias MD Work Phone: [facility] 10-12-2024 03:37-0400 Body height 157.5 cm Barak Covarrubias MD Work Phone: [facility] 10-12-2024 01:59-0400 Body temperature 98.2 [degF] Marco Melvin PA Work Phone: [facility] 10-12-2024 01:59-0400 Diastolic blood pressure 73 mm[Hg] Marco Melvin PA Work Phone: [facility] 10-12-2024 01:59-0400 Heart rate 94 /min Marco Melvin PA Work Phone: [facility] 10-12-2024 01:59-0400 Respiratory rate 21 /min Marco Melvin PA Work Phone: [facility] 10-12-2024 01:59-0400 SaO2% (BldA) [Mass fraction] 96 % Marco Melvin PA Work Phone: [facility] 10-12-2024 01:59-0400 Systolic blood pressure 110 mm[Hg] Marco Melvin PA Work Phone: [facility] 10-11-2024 20:53-0400 Body height 157.48 cm Marco Melvin PA Work Phone: [facility] 10-11-2024 20:53-0400 Body mass index (BMI) [Ratio] 34.2 kg/m2 Marco Melvin PA Work Phone: [facility] 10-11-2024 20:53-0400 Body weight 84.82 kg Marco Melvin PA Work Phone: [facility] 06-19-2024 09:41-0500 Body mass index (BMI) [Ratio] 32.1 kg/m2 Marco Melvin PA Work Phone: [facility] 06-19-2024 09:41-0500 Body weight 79.83 kg Marco Melvin PA Work Phone: [facility] 06-19-2024 09:41-0500 Diastolic blood pressure 79 mm[Hg] Marco Melvin PA Work Phone: [facility] 06-19-2024 09:41-0500 Systolic blood pressure 119 mm[Hg] Marco Melvin PA Work Phone: [facility] 03-17-2024 08:30-0400 Body temperature 98.01 [degF] Rand Hallman MD Work Phone: [facility] 03-17-2024 08:30-0400 Diastolic blood pressure 74 mm[Hg] Rand Hallman MD Work Phone: [facility] 03-17-2024 08:30-0400 Heart rate 86 /min Rand Hallman MD Work Phone: [facility] 03-17-2024 08:30-0400 Respiratory rate 16 /min Rand Hallman MD Work Phone: [facility] 03-17-2024 08:30-0400 SaO2% (BldA) [Mass fraction] 99 % Rand Hallman MD Work Phone: [facility] [employer] 03-17-2024 08:30-0400 Systolic blood pressure 109 mm[Hg] Rand Hallman MD Work Phone: [facility] 03-10-2024 07:30-0400 Body height 157.5 cm Rand Hallman MD Work Phone: [facility] [employer] 03-06-2024 16:49-0400 Body mass index (BMI) [Ratio] 34.39 kg/m2 Rand Hallman MD Work Phone: [facility] [employer] 03-06-2024 16:49-0400 Body weight 85.28 kg Rand Hallman MD Work Phone: [facility] [employer] 01-18-2024 15:39-0400 Body height 156.84 cm Natalie Hopkins MA [facility], [facility].; [facility]. 01-18-2024 15:39-0400 Body mass index (BMI) [Ratio] 35.22 kg/m2 Natalie Hopkins MA [facility], [facility].; [place] [employer] [facility], [facility]. 01-18-2024 15:39-0400 Body surface area Derived from formula 1.87 m2 Natalie Hopkins MA [facility], [facility].; [place] [employer] [facility], [facility]. 01-18-2024 15:39-0400 Body weight 86.64 kg Natalie Hopkins MA [facility], [facility].; [facility] 01-18-2024 15:39-0400 Diastolic blood pressure 75 mm[Hg] Natalei Hopkins MA [facility].; [employer] [facility]. Comment on above: Patient Position: Sitting; Cuff Location : Left Arm; Cuff Size: Standard 01-18-2024 15:39-0400 Heart rate 96 /min Natalie Hopkins MA [facility], [facility].; [employer] [facility]. Comment on above: Pattern: Regular 01-18-2024 15:39-0400 Systolic blood pressure 112 mm[Hg] Natalie Hopkins [facility].; [employer] [facility]. Comment on above: Patient Position: Sitting; Cuff Location : Left Arm; Cuff Size: Standard 10-25-2023 08:23-0400 Body height 157.48 cm PA Marco Melvin Work Phone: [facility] 10-25-2023 08:23-0400 Body mass index (BMI) [Ratio] 32.9 kg/m2 PA Marco Melvin Work Phone: [facility] 10-25-2023 08:23-0400 Body weight 81.64 kg PA Marco Melvin Work Phone: [facility] 10-25-2023 08:23-0400 Diastolic blood pressure 84 mm[Hg] PA Marco Melvin Work Phone: [facility] 10-25-2023 08:23-0400 Systolic blood pressure 118 mm[Hg] PA Marco Melvin Work Phone: [facility] 10-12-2023 14:55-0400 Body mass index (BMI) [Ratio] 32.4 kg/m2 PA Marco Melvin Work Phone: [facility] 10-12-2023 14:55-0400 Body weight 80.51 kg PA Marco Melvin Work Phone: [phone] [place] [address] 10-12-2023 14:55-0400 Diastolic blood pressure 85 mm[Hg] PA Marco Melvin Work Phone: [facility] 10-12-2023 14:55-0400 Systolic blood pressure 118 mm[Hg] PA Marco Melvin Work Phone: [facility] 09-19-2023 16:39-0400 Body temperature 97.6 [degF] PA Marco Melvin Work Phone: [facility] 09-19-2023 16:39-0400 Diastolic blood pressure 82 mm[Hg] PA Marco Melvin Work Phone: [facility] 09-19-2023 16:39-0400 Heart rate 76 /min PA Marco Melvin Work Phone: [facility] 09-19-2023 16:39-0400 Respiratory rate 15 /min PA Marco Melvin Work Phone: [facility] 09-19-2023 16:39-0400 SaO2% (BldA) [Mass fraction] 99 % PA Marco Melvin Work Phone: [facility] 09-19-2023 16:39-0400 Systolic blood pressure 129 mm[Hg] PA Marco Melvin Work Phone: [facility] 09-19-2023 12:14-0400 Body height 157.48 cm PA Marco Melvin Work Phone: [facility] 09-19-2023 12:14-0400 Body mass index (BMI) [Ratio] 31.1 kg/m2 PA Marco Melvin Work Phone: [facility] 09-19-2023 12:14-0400 Body weight 77.11 kg PA Marco Melvin Work Phone: [facility] 09-08-2023 13:11-0500 Body height 157.48 cm PA Marco Melvin Work Phone: [facility] 09-08-2023 13:10-0500 Body mass index (BMI) [Ratio] 31.4 kg/m2 PA Marco Melvin Work Phone: [facility] 09-08-2023 13:10-0500 Body weight 78.01 kg PA Marco Melvin Work Phone: [facility] 09-08-2023 13:10-0500 Diastolic blood pressure 88 mm[Hg] PA Marco Melvin Work Phone: [facility] 09-08-2023 13:10-0500 Systolic blood pressure 123 mm[Hg] PA Marco Melvin Work Phone: [facility] 02-15-2023 15:45-0400 Body height 156.84 cm Chelsea Paez MA [facility], [facility].; [facility], [facility]. 02-15-2023 15:45-0400 Body mass index (BMI) [Ratio] 28.6 kg/m2 Chelsea Paez MA [facility] 02-15-2023 15:45-0400 Body surface area Derived from formula 1.71 m2 Chelsea Paez MA [facility], [facility]. 02-15-2023 15:45-0400 Body weight 70.36 kg Chelsea Paez MA [facility] 02-15-2023 15:45-0400 Diastolic blood pressure 79 mm[Hg] Chelsea Paez MA [facility]. Comment on above: Patient Position: Sitting; Cuff Location : Left Arm; Cuff Size: Standard 02-15-2023 15:45-0400 Heart rate 87 /min Chelsea Paez MA [facility]. Comment on above: Pattern: Regular 02-15-2023 15:45-0400 Systolic blood pressure 120 mm[Hg] Chelsea Paez MA [facility]. Comment on above: Patient Position: Sitting; Cuff Location : Left Arm; Cuff Size: Standard 12-14-2022 11:30-0400 Body height 157.48 cm PA Marco Melvin Work Phone: [facility] 12-14-2022 11:28-0400 Body mass index (BMI) [Ratio] 28.3 kg/m2 PA Marco Melvin Work Phone: [facility] 12-14-2022 11:28-0400 Body weight 70.36 kg PA Marco Melvin Work Phone: [facility] 12-14-2022 11:28-0400 Diastolic blood pressure 84 mm[Hg] PA Marco Melvin Work Phone: [facility] 12-14-2022 11:28-0400 Systolic blood pressure 129 mm[Hg] PA Marco Melvin Work Phone: [facility] 12-02-2022 14:26-0400 Body temperature 97.7 [degF] PA Marco Melvin Work Phone: [facility] 12-02-2022 14:26-0400 Diastolic blood pressure 79 mm[Hg] PA Marco Melvin Work Phone: [facility] 12-02-2022 14:26-0400 Heart rate 76 /min PA Marco Melvin Work Phone: [facility] 12-02-2022 14:26-0400 Respiratory rate 16 /min PA Marco Melvin Work Phone: [phone])[phone] [place] [address] 12-02-2022 14:26-0400 SaO2% (BldA) [Mass fraction] 97 % PA Marco Melvin Work Phone: [facility] 12-02-2022 14:26-0400 Systolic blood pressure 115 mm[Hg] PA Marco Melvin Work Phone: [phone])[phone] [place] [address] 12-02-2022 09:12-0400 Body height 157.48 cm PA Marco Melvin Work Phone: [phone] [place] [address] 12-02-2022 09:12-0400 Body mass index (BMI) [Ratio] 28.1 kg/m2 PA Marco Melvin Work Phone: 7(072)[phone] [address] 12-02-2022 09:12-0400 Body weight 69.85 kg PA Marco Melvin Work Phone: [phone])[phone] [place] [address] 11-09-2022 11:22-0400 Body mass index (BMI) [Ratio] 28.5 kg/m2 PA Marco Melvin Work Phone: 4(686)[phone] [place] [address] 11-09-2022 11:22-0400 Body weight 70.93 kg PA Marco Melvin Work Phone: [facility] 11-09-2022 11:22-0400 Diastolic blood pressure 76 mm[Hg] PA Marco Melvin Work Phone: [facility] 11-09-2022 11:22-0400 Systolic blood pressure 116 mm[Hg] PA Marco Melvin Work Phone: [phone](345)[phone] [place] [address] 10-14-2022 14:43-0400 Body mass index (BMI) [Ratio] 28.8 kg/m2 PA Marco Melvin Work Phone: [facility] 10-14-2022 14:43-0400 Body weight 71.44 kg PA Marco Melvin Work Phone: [facility] 10-14-2022 14:43-0400 Diastolic blood pressure 77 mm[Hg] PA Marco Melvin Work Phone: [facility] 10-14-2022 14:43-0400 Systolic blood pressure 114 mm[Hg] PA Marco Melvin Work Phone: [facility] 09-27-2022 15:56-0400 Body temperature 99.9 [degF] Chin Edge LPN [facility], [facility] [employer] [facility] [employer] 09-27-2022 15:56-0400 Body weight 73.94 kg Chin Edge LPN [facility], [facility] [employer] [facility], [employer] 09-27-2022 15:56-0400 Diastolic blood pressure 86 mm[Hg] Chin Edge LPN [facility], [employer] [facility], [employer]. Comment on above: Patient Position: Sitting; Cuff Location : Left Arm; Cuff Size: Standard 09-27-2022 15:56-0400 Heart rate 106 /min Chin Edge LPN [facility], [facility] [facility], [employer] Comment on above: Pattern: Regular 09-27-2022 15:56-0400 Systolic blood pressure 120 mm[Hg] Chin Edge LPN [facility], [employer], [employer]. Comment on above: Patient Position: Sitting; Cuff Location : Left Arm; Cuff Size: Standard 08-05-2022 10:09-0500 Body height 156.84 cm Nandini Fisher RN [place] [employer] [facility], [facility] [employer] 08-05-2022 10:09-0500 Body mass index (BMI) [Ratio] 30.24 kg/m2 Nandini Fisher RN [facility], [facility], [facility]. 08-05-2022 10:09-0500 Body surface area Derived from formula 1.75 m2 Nandini Fisher RN [facility].; [facility]. 08-05-2022 10:09-0500 Body temperature 99.8 [degF] Nandini Fisher RN [facility].; [place] [employer]. Comment on above: Method: Tympanic 08-05-2022 10:090500 Body weight 74.39 kg Nandini Fisher RN [facility].; [place] [employer] [facility]. 08-05-2022 10:09-0500 Diastolic blood pressure 72 mm[Hg] Nandini Fisher RN [facility].; [facility] [employer] [facility]. Comment on above: Patient Position: Sitting; Cuff Location : Left Arm; Cuff Size: Standard 08-05-2022 10:09-0500 Heart rate 94 /min Nandini Fisher RN [facility].; [employer]. Comment on above: Pattern: Regular 08-05-2022 10:09-0500 Systolic blood pressure 108 mm[Hg] Nandini Fisher RN [facility].; [place] [employer]. Comment on above: Patient Position: Sitting; Cuff Location : Left Arm; Cuff Size: Standard 05-12-2022 16:19-0500 Body height 156.84 cm Maryellen Reyes LPN [facility], [facility].; [facility]. 05-12-2022 16:19-0500 Body mass index (BMI) [Ratio] 30.05 kg/m2 Maryellen Reyes LPN [facility].; [place] [employer] [facility], [facility]. 05-12-2022 16:19-0500 Body surface area Derived from formula 1.75 m2 Maryellen Reyes LPN [facility].; [facility], [facility]. 05-12-2022 16:19-0500 Body temperature 98.5 [degF] Maryellen Reyes LPN [facility].; [employer]. Comment on above: Method: Tympanic 05-12-2022 16:19-0500 Body weight 73.94 kg Maryellen Reyes LPN [facility], [facility].; [employer], [employer]. 05-12-2022 16:19-0500 Diastolic blood pressure 87 mm[Hg] Maryellen Reyes LPN [facility], [facility].; [employer], [employer]. Comment on above: Patient Position: Sitting; Cuff Location : Left Arm; Cuff Size: Standard 05-12-2022 16:19-0500 Heart rate 92 /min Maryellen Reyes LPN [facility], [facility].; [employer], [employer]. Comment on above: Pattern: Regular 05-12-2022 16:19-0500 Inhaled oxygen concentration 20 % Maryellen Reyes LPN [facility], [facility].; [employer], [employer]. Comment on above: Room air 05-12-2022 16:19-0500 Inhaled oxygen concentration 21 % Maryellen Reyes LPN [facility], [facility], [employer]. Comment on above: Room air 05-12-2022 16:19-0500 SaO2% (BldA) [Mass fraction] 98 % Maryellen Reyes LPN [facility], [facility].; [employer], [employer]. 05-12-2022 16:19-0500 Systolic blood pressure 118 mm[Hg] Maryellen Reyes LPN [facility], [facility].; [employer], [employer]. Comment on above: Patient Position: Sitting; Cuff Location : Left Arm; Cuff Size: Standard 04-26-2022 10:40-0400 Body height 156.84 cm Maryellen Reyes LPN [facility], [facility].; [place] [employer] [facility], [employer]. 04-26-2022 10:40-0400 Body mass index (BMI) [Ratio] 30.05 kg/m2 Maryellen Reyes LPN [facility], [facility].; [employer] [facility], [facility]. 04-26-2022 10:40-0400 Body surface area Derived from formula 1.75 m2 Maryellen Reyes LPN [facility], [facility].; [employer], [employer]. 04-26-2022 10:40-0400 Body weight 73.94 kg Maryellen Reyes LPN [facility], [facility].; [employer], [employer]. 04-26-2022 10:40-0400 Diastolic blood pressure 86 mm[Hg] Maryellen Reyes LPN [facility] Comment on above: Patient Position: Sitting; Cuff Location : Left Arm; Cuff Size: Standard 04-26-2022 10:40-0400 Heart rate 106 /min Maryellen Reyes LPN [facility], [facility].; [facility] [employer]. Comment on above: Pattern: Regular 04-26-2022 10:40-0400 Inhaled oxygen concentration 20 % Maryellen Reyes LPN [facility]. Comment on above: Room air 04-26-2022 10:40-0400 Inhaled oxygen concentration 21 % Maryellen Reyes LPN [facility] [employer]. Comment on above: Room air 04-26-2022 10:40-0400 SaO2% (BldA) [Mass fraction] 100 % Maryellen Reyes LPN [facility] 04-26-2022 10:40-0400 Systolic blood pressure 122 mm[Hg] Maryellen Reyes LPN [facility] Comment on above: Patient Position: Sitting; Cuff Location : Left Arm; Cuff Size: Standard 04-08-2022 22:05-0400 Respiratory rate 14 /min [facility] Work Phone: 04-08-2022 17:52-0400 Body temperature 97.4 [degF] [facility] Work Phone: 04-08-2022 17:52-0400 Diastolic blood pressure 95 mm[Hg] [facility] Work Phone: 04-08-2022 17:52-0400 Heart rate 105 /min [facility] Work Phone: 04-08-2022 17:52-0400 SaO2% (BldA) [Mass fraction] 100 % [facility] Work Phone: 04-08-2022 17:52-0400 Systolic blood pressure 128 mm[Hg] [facility] Work Phone: 04-08-2022 17:49-0400 Body height 157.[address] [facility] Work Phone: 04-08-2022 17:49-0400 Body mass index (BMI) [Ratio] 30.7 kg/m2 [facility] Work Phone: 04-08-2022 17:49-0400 Body weight 76.[address] [facility] Work Phone: 02-07-2022 09:46-0400 Body height 156.84 cm Nandini Fisher RN [facility], [employer] [facility]. 02-07-2022 09:46-0400 Body mass index (BMI) [Ratio] 29.5 kg/m2 Nandini Fisher RN [place] [employer].; [employer] [facility]. 02-07-2022 09:46-0400 Body surface area Derived from formula 1.73 m2 Nandini Fisher RN [place] [employer].; [employer] [facility]. 02-07-2022 09:46-0400 Body temperature 99.2 [degF] Nandini Fisher RN [place] [facility].; [employer]. Comment on above: Method: Tympanic 02-07-2022 09:46-0400 Body weight 72.58 kg Nandini Fisher RN [facility].; [employer]. 02-07-2022 09:46-0400 Diastolic blood pressure 74 mm[Hg] Nandini Fisher RN [employer] [facility].; [employer]. Comment on above: Patient Position: Sitting; Cuff Location : Left Arm; Cuff Size: Standard 02-07-2022 09:46-0400 Heart rate 84 /min Nandini Fisher RN [employer] [facility].; [employer]. Comment on above: Pattern: Regular 02-07-2022 09:46-0400 Inhaled oxygen concentration 20 % Nandini Fisher RN [place] [facility].; [employer]. Comment on above: Room air 02-07-2022 09:46-0400 Inhaled oxygen concentration 21 % Nandini Fisher RN [facility] [place] [facility]. Comment on above: Room air 02-07-2022 09:46-0400 SaO2% (BldA) [Mass fraction] 99 % Nandini Fisher RN [facility] 02-07-2022 09:46-0400 Systolic blood pressure 112 mm[Hg] Nandini Fisher RN [facility] [employer]. Comment on above: Patient Position: Sitting; Cuff Location : Left Arm; Cuff Size: Standard 12-01-2021 15:44-0400 Body height 156.84 cm Maryellen Reyes LPN [facility], [facility].; [place] Spinzo [facility], [facility]. 12-01-2021 15:44-0400 Body mass index (BMI) [Ratio] 29.13 kg/m2 Maryellen Reyes LPN [facility], [facility].; [place] Spin[facility], [facility]. 12-01-2021 15:44-0400 Body surface area Derived from formula 1.72 m2 Maryellen Reyes LPN [facility], [facility].; [place] Spinzo [facility], [facility]. 12-01-2021 15:44-0400 Body weight 71.67 kg Maryellen Reyes LPN [facility], [facility].; [facility] [facility], [facility]. 12-01-2021 15:44-0400 Diastolic blood pressure 79 mm[Hg] Maryellen Reyes LPN [facility], [facility].; [employer]. Comment on above: Patient Position: Sitting; Cuff Location : Left Arm; Cuff Size: Standard 12-01-2021 15:44-0400 Heart rate 75 /min Maryellen Reyes LPN [facility], [facility].; [employer]. Comment on above: Pattern: Regular 12-01-2021 15:44-0400 Systolic blood pressure 113 mm[Hg] Maryellen Reyes LPN [facility], [facility].; [employer]. Comment on above: Patient Position: Sitting; Cuff Location : Left Arm; Cuff Size: Standard 08-03-2021 16:09-0500 Body height 156.84 cm Maryellen Reyes LPN [facility], [facility].; [facility], [facility]. 08-03-2021 16:09-0500 Body mass index (BMI) [Ratio] 27.47 kg/m2 Maryellen Reyes LPN [facility] 08-03-2021 16:09-0500 Body surface area Derived from formula 1.68 m2 Maryellen Reyes LPN [facility], [facility].; [facility], [facility]. 08-03-2021 16:09-0500 Body weight 67.59 kg Maryellen Reyes LPN [facility], [facility].; [facility], [facility]. 08-03-2021 16:09-0500 Diastolic blood pressure 88 mm[Hg] Maryellen Reyes LPN [facility], [facility].; [place] Spinzo [facility], [facility]. Comment on above: Patient Position: Sitting; Cuff Location : Left Arm; Cuff Size: Standard 08-03-2021 16:09-0500 Heart rate 85 /min Maryellen Reyes LPN [facility], [facility].; [place] [employer], [facility]. Comment on above: Pattern: Regular 08-03-2021 16:09-0500 Systolic blood pressure 125 mm[Hg] Maryellen Reyes LPN [facility], [facility].; [place] Spinzo [facility], [facility]. Comment on above: Patient Position: Sitting; Cuff Location : Left Arm; Cuff Size: Standard 05-13-2021 15:58-0500 Body height 156.84 cm Alysia Mar LPN [facility], [facility].; [facility], [facility]. 05-13-2021 15:58-0500 Body mass index (BMI) [Ratio] 26.55 kg/m2 Alysia Mar LPN [facility], [facility].; [facility], [facility]. 05-13-2021 15:58-0500 Body surface area Derived from formula 1.66 m2 Alysia Mar LPN [facility], [facility].; [facility], [facility]. 05-13-2021 15:58-0500 Body temperature 99.2 [degF] Alysia Mar [facility], [facility].; [facility] Comment on above: Method: Tympanic 05-13-2021 15:58-0500 Body weight 65.32 kg Alysiamadelyn Mar LPN [facility], [facility].; [facility] 05-13-2021 15:58-0500 Diastolic blood pressure 80 mm[Hg] Alysiamadelyn Mar [facility], [facility].; [place] [employer], [employer] Comment on above: Patient Position: Sitting; Cuff Location : Left Arm; Cuff Size: Standard 05-13-2021 15:58-0500 Heart rate 92 /min Alysiamadelyn Mar [facility], [facility].; [place] [employer], [employer] Comment on above: Pattern: Regular 05-13-2021 15:58-0500 Systolic blood pressure 113 mm[Hg] [facility]amadelyn [facility].; [place] [employer], [employer] Comment on above: Patient Position: Sitting; Cuff Location : Left Arm; Cuff Size: Standard 04-26-2021 16:14-0400 Body height 156.84 cm Alysiamadelyn Mar CARDIAC EXERCISE PHYSIOLOGIST [facility].; [place] [employer], [employer] 04-26-2021 16:14-0400 Body mass index (BMI) [Ratio] 26.74 kg/m2 [facility], [facility].; [place] [employer], [employer] 04-26-2021 16:14-0400 Body surface area Derived from formula 1.66 m2 [facility], [facility].; [place] Spinzo [facility] 04-26-2021 16:14-0400 Body weight 65.77 kg Alysiamadelyn Mar LPAd[facility], [facility].; [place] [employer], [employer]. 04-26-2021 16:14-0400 Diastolic blood pressure 78 mm[Hg] Alysiamadelyn Mar [facility], [facility].; [place] [employer], [employer] Comment on above: Patient Position: Sitting; Cuff Location : Left Arm; Cuff Size: Standard 04-26-2021 16:14-0400 Heart rate 106 /min Alysiamadelyn Mar CARDIAC EXERCISE PHYSIOLOGIST [facility] [employer]. Comment on above: Pattern: Regular 04-26-2021 16:14-0400 Systolic blood pressure 114 mm[Hg] Alysia Mar LPN [facility] [employer].; [employer]. Comment on above: Patient Position: Sitting; Cuff Location : Left Arm; Cuff Size: Standard 01-31-2020 15:35-0400 Body height 156.84 cm Marco Melvin PA-C Work Phone: [employer]; [employer]. 01-31-2020 15:35-0400 Body mass index (BMI) [Ratio] 26.55 kg/m2 Marco Melvin PA-C Work Phone: [employer]; [employer]. 01-31-2020 15:35-0400 Body surface area Derived from formula 1.66 m2 Marco Melvin PA-C Work Phone: [employer]; [employer] 01-31-2020 15:35-0400 Body weight 65.32 kg Marco Melvin PA-C Work Phone: [employer]; [employer]. 01-31-2020 15:35-0400 Diastolic blood pressure 74 mm[Hg] Marco Melvin PA-C Work Phone: [employer]; [employer]. Comment on above: Patient Position: Sitting; Cuff Location : Left Arm; Cuff Size: Standard 01-31-2020 15:35-0400 Heart rate 80 /min Marco Melvin PA-C Work Phone: [employer]; [employer]. Comment on above: Pattern: Regular 01-31-2020 15:35-0400 Systolic blood pressure 107 mm[Hg] Marco Melvin PA-C Work Phone: [employer]; [facility] Comment on above: Patient Position: Sitting; Cuff Location : Left Arm; Cuff Size: Standard Encounters Encounter Date Encounter Type Care Provider Facility Start: 05-12-2025 End: 05-12-2025 ambulatory JOHN NAYLOR MD Facility:A Start: 04-07-2025 End: 04-07-2025 ambulatory YOLA BRINKANTONIA [facility] Start: 04-02-[address] Joe Schaffer MD -Laboratory Work Phone: Start: 04-02-2025 End: 04-02-2025 ambulatory Yola Schaffer Facility:[facility] Start: 03-31-2025 End: 03-31-2025 ambulatory Marco Melvin PA Work Phone: -Laboratory Start: 03-31-2025 End: 03-31-[address] Yola Schaffer MD -Laboratory Work Phone: Start: 03-31-2025 End: 03-31-2025 ambulatory Yola Schaffer Facility:[facility] Start: 03-28-2025 End: 03-28-2025 ambulatory Marco Melvin PA Work Phone: -Laboratory Start: 03-28-2025 End: 03-28-[address] Yola Schaffer MD -Laboratory Work Phone: Start: 03-28-2025 End: 03-28-2025 ambulatory Yola Schaffer Facility:[facility] Start: 03-24-2025 End: 03-24-2025 ambulatory Marco Melvin PA Work Phone: -Laboratory Start: 03-24-2025 End: 03-24-[address] Yola Schaffer MD -Laboratory Work Phone: Start: 03-24-2025 End: 03-24-2025 ambulatory Marco Melvin Facility:[facility] Start: 03-12-2025 End: 03-12-2025 ambulatory JOHN NAYLOR MD Facility:A Start: 03-10-2025 End: 03-10-2025 ambulatory JOHN NAYLOR MD Facility:A Start: 03-07-2025 End: 03-07-2025 ambulatory JOHN NAYLOR MD Facility:A Start: 03-06-2025 End: 03-06-[address] [facility] Start: 03-06-2025 End: 03-06-[address] Julianna Newman DO [facility] Start: 03-06-2025 End: 03-06-2025 ambulatory Marco Melvin PA Work Phone: -[facility] Start: 02-28-2025 End: 02-28-2025 ambulatory MARCOJOHN MELVIN PA-C Facility:A Start: 10-14-2024 End: 10-14-2024 Emergency department patient visit Marcojohn Melvin PA Work Phone: -Emergency Department Work Phone: Start: 10-12-2024 End: 10-13-2024 Evaluation and management of inpatient Barak Covarrubias MD Work Phone: [facility] Medical Surgical Unit [facility] H5 Comment on above: Ovarian hyperstimula tion syndrome (Primary Dx) Start: 10-11-2024 End: 10-12-2024 Emergency department patient visit Marcojohn Melvin PA Work Phone: -Emergency Department Work Phone: Start: 10-07-2024 End: 10-07-2024 ambulatory MARCOJOHN MELVIN PA-C Facility:A Start: 08-15-2024 End: 08-15-[address] Julianna Newman DO [facility] Work Phone: Start: 08-15-2024 End: 08-15-2024 [facility] Start: 06-19-2024 End: 06-19-2024 Patient encounter procedure Lilly REYES -Laboratory, Specimen Work Phone: Start: 06-19-2024 End: 06-19-2024 Patient encounter procedure Lilly REYES -[facility] Work Phone: Start: 06-19-2024 End: 06-19-2024 ambulatory Marco Melvin Facility:[facility] Start: 06-19-2024 End: 06-19-2024 ambulatory Marco Melvin Facility:[facility] Start: 06-11-2024 ambulatory Marco Melvin Facility:[facility] Start: 05-15-2024 End: 05-15-2024 ambulatory [facility] Start: 05-14-2024 End: 05-14-2024 ambulatory [place] Start: 05-07-2024 End: 05-07-2024 ambulatory [facility] Start: 04-25-2024 End: 04-25-2024 ambulatory [place] Start: 04-10-2024 End: 04-10-2024 Subsequent hospital visit by physician Lucila Ho DO Work Phone: [facility] Comment on above: History of gestation al diabetes Start: 04-10-2024 End: 04-10-2024 ambulatory [facility] Start: 03-28-2024 End: 03-28-2024 ambulatory [facility] Start: 03-06-2024 End: 03-17-2024 Evaluation and management of inpatient Rand Hallman MD Work Phone: [facility] Comment on above: S/P (Prima ry Dx); Anhydramnios in third trimester, single or unspecified fetus; Vaginal bleeding in , third trimester Start: 01-19-2024 End: 01-19-2024 ambulatory [facility] Start: 01-18-2024 End: 01-18-2024 Office outpatient visit 15 minutes Marco LUNA-C Work Phone: [employer] [facility] Start: 12-28-2023 End: 12-28-2023 ambulatory SAUMYA MANCIA [facility] Start: 12-12-2023 End: 12-12-2023 Telephone follow-up Marco Melvin PA-C Work Phone: [employer] [facility] Start: 10-25-2023 End: 10-25-2023 ambulatory PA Marco Melvin Work Phone: [facility] Work Phone: Start: 10-25-2023 End: 10-25-2023 Patient encounter procedure PA Marco Melvin Work Phone: [facility] Work Phone: Start: 10-12-2023 End: 10-12-2023 ambulatory PA Marco Melvin Work Phone: [facility] Work Phone: Start: 10-12-2023 End: 10-12-2023 Patient encounter procedure PA Marco Melvin Work Phone: [facility]-Laboratory, Specimen Work Phone: Start: 10-12-2023 End: 10-12-2023 Patient encounter procedure PA Marco Melvin Work Phone: [facility] Work Phone: Start: 09-29-2023 End: 09-29-2023 ambulatory PA Marco Melvin Work Phone: [facility] Work Phone: Start: 09-29-2023 End: 09-29-2023 Patient encounter procedure PA Marco Melvin Work Phone: [facility]-Ultrasound, [facility] Work Phone: Start: 09-22-2023 End: 09-22-2023 ambulatory PA Marco Melvin Work Phone: [facility] Work Phone: Start: 09-22-2023 End: 09-22-2023 Patient encounter procedure PA Marco Melvin Work Phone: [facility]-Outpatient [facility] Ultrasound Work Phone: Start: 09-19-2023 End: 09-19-2023 Emergency department patient visit PA Marco Melvin Work Phone: [facility]-Emergency Department Work Phone: Start: 09-15-2023 End: 09-15-2023 ambulatory PA Marco Melvin Work Phone: [facility] Work Phone: Start: 09-15-2023 End: 09-15-2023 Patient encounter procedure PA Marco Melvin Work Phone: [facility]-Laboratory Work Phone: Start: 09-13-2023 End: 09-13-2023 ambulatory PA Marco Melvin Work Phone: [facility] Work Phone: Start: 09-13-2023 End: 09-13-2023 [facility] encounter [facility] Start: 2023 End: 2023 ambulatory PA Marco Melvin Work Phone: [facility] Work Phone: Start: 2023 End: 2023 Patient encounter procedure [facility] Start: 09-08-2023 End: 09-08-2023 Patient encounter procedure PA Marco Melvin Work Phone: [facility] Work Phone: Start: 09-06-2023 End: 09-06-2023 ambulatory PA Marco Melvin Work Phone: [facility] Work Phone: Start: 09-06-2023 End: 09-06-2023 Patient encounter procedure [facility] Start: 08-25-2023 End: 08-25-2023 ambulatory [facility] Work Phone: Start: 08-25-2023 End: 08-25-2023 Patient encounter procedure [facility]-Laboratory Work Phone: Start: 08-23-2023 End: 08-23-2023 [facility] Start: 08-21-2023 End: 08-21-2023 ambulatory [facility] Work Phone: Start: 08-21-2023 End: 08-21-2023 [facility] Start: 08-15-2023 End: 08-15-2023 ambulatory [facility] Work Phone: Start: 08-15-2023 End: 08-15-2023 [facility] Start: 08-07-2023 End: 08-07-2023 [facility]: Start: 08-05-2023 End: 08-05-2023 ambulatory [facility] Work Phone: Start: 08-05-2023 End: 08-05-2023 [facility] Start: 08-03-2023 End: 08-03-2023 ambulatory [facility] Work Phone: Start: 08-03-2023 End: 08-03-2023 [facility]: Start: 07-29-2023 End: 07-29-2023 ambulatory [facility] Work Phone: Start: 07-29-2023 End: 07-29-2023 [facility]: Start: 03-07-2023 End: 03-07-2023 ambulatory PA Marco Melvin Work Phone: [facility] Work Phone: Start: 03-07-2023 End: 03-07-2023 Patient encounter procedure PA Marcojohn Melvin Work Phone: [facility]-Laboratory Work Phone: Start: 02-15-2023 End: 02-15-2023 Periodic preventive med est patient 18-39 yrs Marco Melvin PA-C Work Phone: [facility]. Start: 02-15-2023 End: 02-15-2023 Physical examination Marco Melvin PA-C Work Phone: [employer] [facility]; [employer] Start: 01-20-2023 End: 01-20-2023 Patient encounter procedure PA Marco Melvin Work Phone: [facility]-Laboratory Work Phone: Start: 12-14-2022 End: 12-14-2022 Patient encounter procedure PA Marco Melvin Work Phone: [facility] Work Phone: Start: 12-02-2022 Non-patient / Non-visit PA Melonie Melvin Work Phone: [facility] Start: 12-02-2022 End: 12-02-2022 Admission to same day surgery center PA Marco Melvin Work Phone: [facility]-Surgical Day Care Start: 12-02-2022 End: 12-02-2022 ambulatory PA Marco Melvin Work Phone: [facility] Work Phone: Start: 11-09-2022 End: 11-09-2022 Patient encounter procedure PA Marco Melvin Work Phone: [facility] Start: 10-19-2022 End: 10-19-2022 Patient encounter procedure PA Marco Melvin Work Phone: [facility] Start: 10-14-2022 End: 10-14-2022 Patient encounter procedure PA Marco Melvin Work Phone: [facility] Start: 10-14-2022 End: 10-14-2022 Patient encounter procedure PA Marco Melvin Work Phone: [facility] Start: 09-27-2022 End: 09-27-2022 Office outpatient visit 15 minutes Marco Melvin PA-C Work Phone: [facility] Start: 08-05-2022 End: 08-05-2022 Office outpatient visit 15 minutes Marco Melvin PA-C Work Phone: [facility] Start: 05-12-2022 End: 05-12-2022 Office outpatient visit 15 minutes Marco Melvin PA-C Work Phone: [facility] Start: 04-26-2022 End: 04-26-2022 Office outpatient visit 25 minutes Marco Melvin PA-C Work Phone: [facility] Start: 04-12-2022 End: 04-12-2022 Telephone follow-up Marco Melvin PA-C Work Phone: [facility] Start: 04-08-2022 End: 04-08-2022 Emergency department patient visit [facility]Emergency Department Start: 04-08-2022 Telephone encounter Hodan casas APRN.CNM Work Phone: OB/Gynecology Comment on above: Heavy Bleeding Start: 02-07-2022 End: 02-07-2022 Office outpatient visit 15 minutes Marco Melvin PA-C Work Phone: [facility] Start: 12-01-2021 End: 12-01-2021 Office outpatient visit 15 minutes Marco Melvin PA-C Work Phone: [facility] Start: 08-03-2021 End: 08-03-2021 Office outpatient visit 15 minutes Marco Melvin PA-C Work Phone: [facility] Start: 05-13-2021 End: 05-13-2021 Office outpatient visit 15 minutes Marco Melvin PA-C Work Phone: [facility] Start: 04-26-2021 End: 04-26-2021 Office outpatient visit 15 minutes Marco Melvin PA-C Work Phone: [facility] Start: 02-27-2020 End: 02-27-2020 Patient encounter procedure Marco Melvin PA-C Work Phone: [facility] Start: 01-31-2020 End: 01-31-2020 Office outpatient new 30 minutes Marco Melvin PA-C Work Phone: [facility] Procedures Date Procedure Procedure Detail Performing Clinician Start: 04-02-2025 Serum progesterone measurement Marco Melvin PA Work Phone: Comment on above: Follicular phase 0.1 - 0.9 Luteal phase 1.8 - 23.9 Ovulation phase 0.1 - 12.0 First trimester 11.0 - 44.3 Second trimester 25.4 - 83.3 Third trimester 58.7 - 214.0 Postmenopausal 0.0 - 0.1Performed at: [facility] [address] [id number] Director: Heri Louis PhD, Phone: [phone] Start: 03-31-2025 Serum progesterone measurement Marco Melvin PA Work Phone: Comment on above: Follicular phase 0.1 - 0.9 Luteal phase 1.8 - 23.9 Ovulation phase 0.1 - 12.0 First trimester 11.0 - 44.3 Second trimester 25.4 - 83.3 Third trimester 58.7 - 214.0 Postmenopausal 0.0 - 0.1Performed at: [facility] [address] [id number] Director: Heri Louis PhD, Phone: [phone] Start: 03-28-2025 Serum progesterone measurement Marco Melvin PA Work Phone: Comment on above: Follicular phase 0.1 - 0.9 Luteal phase 1.8 - 23.9 Ovulation phase 0.1 - 12.0 First trimester 11.0 - 44.3 Second trimester 25.4 - 83.3 Third trimester 58.7 - 214.0 Postmenopausal 0.0 - 0.1Performed at: [address] [id number] Director: Heri Louis PhD, Phone: [phone] Start: 03-24-2025 Serum progesterone measurement Marco Melvin PA Work Phone: Comment on above: Follicular phase 0.1 - 0.9 Luteal phase 1.8 - 23.9 Ovulation phase 0.1 - 12.0 First trimester 11.0 - 44.3 Second trimester 25.4 - 83.3 Third trimester 58.7 - 214.0 Postmenopausal 0.0 - 0.1Performed at: [facility] [employer] [id number] Director: Heri Louis PhD, Phone: [phone] Start: 10-14-2024 Plain X-ray abdomen Melonie ecca [...] Phone: Start: 03-15-2024 OXYGEN THERAPY Carolyn Martinez [facility] EIGHT ARM OPERATOR - INSIDE SALES TERRITORY MANAGER Work Phone: Start: 03-15-2024 Glucose quantitative blood [...] on above: Performed By: #### L [id number] ####Clerk Supervisor: GYPSY DAY ([phone])[facility] ([facility])[address] [place] [address] Start: 03-14-2024 Blood typing serolog ic rh [...] 03-11-2024 Glucose quantitative blood xcpt reagent strip aRnd Hallman MD Work Phone: Start: 03-11-2024 Glucose [...] on above: Performed By: #### L [id number] ####Clerk Supervisor: GYPSY DAY ([id number])[facility] ([address] Start: 03-10-2024 Blood typing serologic abo [...] valid specimen Performed By: #### L [id number] ####Clerk Supervisor: GYPSY DAY ([phone])[facility] ([address] Start: 03-06-2024 Blood count complete automated [...] for Adults (1 - 1-dose 75+ series) [facility] Start: 09-12-2047 Zoster Vaccines (1 of 2) Zoste r Vaccines (1 of 2) [facility] Start: 02-27-2034 DTaP/Tdap/Td Vaccine s (9 - Td or Tdap) DTaP/Tdap/Td Vaccines (9 - Td or Tdap) [facility] Start: 03-31-2025 Patient encounter procedure Registered Clinical -Laboratory Work Phone: Start: 03-06-2025 Depression Screening Depression Scre ening [facility] Start: 03-03-2025 Influenza vaccination Influenz a Vaccine (Season Ended) [facility] Start: 10-14-2024 End: 10-14-2024 [facility] Start: 10-14-2024 Bacteria identified in Urine by Culture Urine Culture [facility] Start: 10-11-[address] [facility] Start: 10-11-2024 Removal of urinary catheter [facility] Start: 09-03-2024 Depression Monitoring Depression [facility] Start: 06-19-2024 Patient referral [facility] Work Phone: Start: 05-03-2024 Diabetes mellitus screening Diabetes Screening [facility] Start: 04-25-2024 End: 04-25-2024 Patient encounter procedure 04/25/2024 10:00 AM EDT Office Visit [facility]aternal [facility] [address], [place] [id number] Julianna Ferraro, EIGHT ARM OPERATOR-[place] [address] 4 WEEKS POST [facility] Comment on above: 4 WEEKS POST Start: 03-23-2024 RSV Immunization age d 60 or older (1 - Risk 1-dose series) RSV Immunization aged 60 or older (1 - Risk 1-dose series) [facility] Start: 03-03-2024 COVID-19 (2023-2 5 season) COVID-19 ( season) [facility] Start: 03-03-2024 COVID-19 Vaccine ( season) COVID-19 Vaccine ( season) [facility] Start: 03-03-2024 FLU (#1) FLU (#1) [facility] Start: 03-03-2024 Influenza vaccination Influenza Vacc ine (#1) [facility] Start: 09-19-[address] [facility] Start: 09-19-2023 Transvaginal obstetr ic ultrasonography [facility] Start: 12-02-2022 Anesthesia intraperitoneal lower abd w/laps nos ANESTH SURG LOWER ABDOMEN [facility] Start: 12-02-[address] w/materials REOPEN FALLOPIAN TUBE [facility] Start: 12-02-2022 Laps abd prtm&omentu m dx w/wo spec br/wa spx DIAG LAPARO SEPARATE PROC [facility] Start: 12-02-2022 Ambulation without limitation [facility] Start: 12-02-2022 Medical regimen orde rs management [facility] Start: 12-02-2022 Medication education [facility] Start: 12-02-2022 Patient discharge [facility] Start: 12-02-2022 Procedure discontinued [facility] Start: 12-02-2022 Taking patient vital signs [facility] Start: 12-02-2022 Vital signs measurements [facility] Start: 12-02-[address] [facility] Start: 12-02-2022 Admission procedure [facility] Start: 03-03-2022 Influenza vaccination INFLUENZA (#1) [facility] Start: 10-17-2021 PAP TESTING PAP TESTING [facility] Start: 07-03-2021 DEPRESSION ASSESSMENT DEPRESSION ASS ESSMENT [facility] Start: 04-02-2021 COVID-19 Vaccine (3 - Moderna risk series) COVID-19 Vaccine (3 - Moderna risk series) [facility] Start: 03-01-2020 Urine microalbumin profile DTAP,TDAP,TD (5 - Td or Tdap) [facility] Start: 2018 Microscopic observat ion [Identifier] in Cervix by Cyto stain Pap Smear [facility] Start: 2018 Screening for malign ant neoplasm of cervix Pap Smear [facility] Start: 2016 Hepatitis B (1 of 3 - 19+ 3-dose series) Hepatitis B (1 of 3 - 19+ 3-dose series) [facility] Start: 2016 Pneumococcal Vaccine : Pediatrics (0 to 5 Years) and At-Risk Patients (6 to 49 Years) (1 of 2 - PCV) Pneumococcal Vaccine: Pediatrics (0 to 5 Years) and At-Risk Patients (6 to 49 Years) (1 of 2 - PCV) [facility] Start: 2016 Zoster Vaccines (1 of 2) Zoste r Vaccines (1 of 2) [facility] Start: 09-12-2015 HEPATITIS C SCREENING HEPATITIS C [facility] Start: 09-12-2015 Hepatitis C screening Hepatitis C [facility] Start: 09-12-2015 HIV SCREENING HIV SCREENING [facility] Start: 2013 MenB (1 of 2 - MenB 2-Dose Series Bexsero) MenB (1 of 2 - MenB 2-Dose Series Bexsero) [facility] Start: 2012 HPV (1 - 3-dose series) HPV (1 - 3-d ose series) [facility] Start: 09-12-2011 PEDS TO ADULT TRANSI TION ANNUAL ASSESSMENT PEDS TO ADULT TRANSITION ANNUAL ASSESSMENT [facility] Start: 2010 Varicella (1 of 2 - 13+ 2-dose series) Varicella (1 of 2 - 13+ 2-dose series) [facility] Start: 2009 PEDS TO ADULT TRANSI TION INITIAL DISCUSSION PEDS TO ADULT TRANSITION INITIAL DISCUSSION [facility] Start: 09-12-2007 MENINGOCOCCAL B: Con act tutor based on risk (1 of 2 - Risk Bexsero 2-dose series) MENINGOCOCCAL B: Consider based on risk (1 of 2 - Risk Bexsero 2-dose series) [facility] Start: 2004 Tetanus Diphtheria a nd Pertussis Vaccines (1 - Tdap) Tetanus Diphtheria and Pertussis Vaccines (1 - Tdap) [facility] Start: 1998 MMR (1 of 1 - Standa rd series) MMR (1 of 1 - Standard series) [facility] Start: 03-14-1998 COVID-19 VACCINE (#1) COVID-19 VACCI NE (#1) [facility] Start: 1997 Hemoglobin A1c/Hemoglobin.total in Blood HbA1c [facility] Start: 1997 [facility]: 1997 Lipid panel Lipid Panel [facility] CBC W Auto Different ial panel - Blood [facility] Hemoglobin A1c/Hemoglobin.total in Blood [facility] Hepatitis B surface antigen measurement [facility] Hepatitis C antibody measurement [facility] HIV 1+2 Ab+HIV1 p24 Ag [Presence] in Serum or Plasma by Immunoassay [facility] Patient Education [facility] Work Phone: Patient referral [facility] Work Phone: End: 03-06-2024 POCT Fern Test [facility] [employer] Work Phone: Comment on above: Once (Lab) for 1 Occ urrences starting 03/06/2024 until 03/06/2024 Prolactin [Mass/volu me] in Serum or Plasma [facility] Rubella IgG measurement [facility] Treponema sp Ab [Presence] in Serum [facility] Urine culture [facility] Immunizations Immunization Date Immunization Notes Care Provider Alex javier 02-28-2024 tetanus toxoid, redu ashley diphtheria toxoid, and acellular pertussis vaccine, adsorbed Marco LUNA Work Phone: [facility] 03-28-2019 influenza virus vaccine, unspecified formulation Hodan Jacob APRN.CNCheyenne Work Phone: [facility] Work Phone: 04-15-2014 influenza, injectabl e, quadrivalent, contains preservative Hodan Jacob APRN.CNM Work Phone: [facility] 09-06-2010 human papilloma viru s vaccine, quadrivalent Hodan Jacob APRN.CNCheyenne Work Phone: [facility] Work Phone: 09-06-2010 Human Papillomavirus 9-valent vaccine Hodan Jacob APRN.CNM Work Phone: [facility] 06-07-2010 human papilloma viru s vaccine, quadrivalent Hodan Jacob APRN.CNM Work Phone: [facility] Work Phone: 06-07-2010 Human Papillomavirus 9-valent vaccine Hodan Jacob APRN.CNM Work Phone: [facility] 03-01-2010 human papilloma viru s vaccine, quadrivalent Hodan Jacob APRN.CNM Work Phone: [facility] Work Phone: 03-01-2010 Human Papillomavirus 9-valent vaccine Hodan Jacob APRN.CNM Work Phone: [facility] 03-01-2010 meningococcal polysaccharide (groups A, C, Y and W-135) diphtheria toxoid conjugate vaccine (MCV4P) Hodan Jacob APRN.CNM Work Phone: [facility] Work Phone: 03-01-2010 meningococcal polysaccharide vaccine (MPSV4) Hodan Jacob APRN.CNM Work Phone: [facility] 03-01-2010 tetanus toxoid, redu ashley diphtheria toxoid, and acellular pertussis vaccine, adsorbed Hodan Jacob APRN.CNM Work Phone: [facility] Work Phone: 03-01-2010 varicella virus vaccine Raquel Jacob APRN.CNM Work Phone: [facility] Work Phone: 02-02-2010 tetanus toxoid, redu ashley diphtheria toxoid, and acellular pertussis vaccine, adsorbed Hodan Jacob APRN.CNM Work Phone: [facility] 11-04-2002 diphtheria, tetanus toxoids and acellular pertussis vaccine, 5 pertussis antigens Hodan Jacob APRN.CNM Work Phone: [facility] 11-04-2002 diphtheria, tetanus toxoids and acellular pertussis vaccine, unspecified formulation Hodan Jacob EIGHT ARM OPERATOR.CNM Work Phone: [facility] Work Phone: 11-04-2002 measles, mumps and rubella virus vaccine Hodanespinoza Jacob APRN.CNM Work Phone: [facility] Work Phone: 11-04-2002 measles, mumps, rubella, and varicella virus vaccine Hodanespinoza Jacob APRN.CNM Work Phone: [facility] 11-04-2002 poliovirus vaccine, inactivated Hodanespinoza Jacob EIGHT ARM OPERATOR.CNM Work Phone: [facility] Work Phone: 10-22-1999 varicella virus vaccine Raquelap doran Cecil EIGHT ARM OPERATOR.CNM Work Phone: [facility] 10-11-1999 varicella virus vaccine Raquel espinoza Jacob EIGHT ARM OPERATOR.CNM Work Phone: [facility] Work Phone: 06-07-1999 diphtheria, tetanus toxoids and acellular pertussis vaccine, 5 pertussis antigens Hodan Jacob APRN.CNM Work Phone: [facility] 10-26-1998 measles, mumps, rubella, and varicella virus vaccine Hodanespinoza Jacob APRN.CNM Work Phone: [facility] 10-21-1998 haemophilus influenz ae type b conjugate and Hepatitis B vaccine Hodanespinoza Jacob APRN.CNM Work Phone: [facility] Work Phone: 10-21-1998 haemophilus influenz ae type b vaccine, HbOC conjugate Hodanespinoza Jacob APRN.CNM Work Phone: [facility] 10-21-1998 hepatitis B immune globulin Hodan Jacob APRN.CNM Work Phone: [facility] 10-21-1998 measles, mumps and rubella virus vaccine Hodan Jacob APRN.CNM Work Phone: [facility] Work Phone: 04-22-1998 diphtheria, tetanus toxoids and acellular pertussis vaccine, 5 pertussis antigens Hodanespinoza Jacob EIGHT ARM OPERATOR.CNM Work Phone: [facility] 04-22-1998 haemophilus influenz ae type b vaccine, HbOC conjugate Hodanespinoza Jacob EIGHT ARM OPERATOR.CNM Work Phone: [facility] 04-22-1998 poliovirus vaccine, inactivated Hodan Jacob EIGHT ARM OPERATOR.CNM Work Phone: [facility] 01-14-1998 diphtheria, tetanus toxoids and acellular pertussis vaccine, 5 pertussis antigens Hodanespinoza Jacob EIGHT ARM OPERATOR.CNM Work Phone: [facility] 01-14-1998 haemophilus influenz ae type b vaccine, HbOC conjugate Hodanespinoza Jacob EIGHT ARM OPERATOR.CNM Work Phone: [facility] 01-14-1998 poliovirus vaccine, inactivated Hodan Jacob EIGHT ARM OPERATOR.CNM Work Phone: [facility] 1997 diphtheria, tetanus toxoids and acellular pertussis vaccine, 5 pertussis antigens Hodanespinoza Jacob EIGHT ARM OPERATOR.CNM Work Phone: [facility] 1997 haemophilus influenz ae type b conjugate and Hepatitis B vaccine Hodanespinoza Jacob EIGHT ARM OPERATOR.CNM Work Phone: [facility] Work Phone: 1997 haemophilus influenz ae type b vaccine, HbOC conjugate Hodanespinoza Jacob EIGHT ARM OPERATOR.CNM Work Phone: [facility] 1997 hepatitis B immune globulin Hodanespinoza Jacob EIGHT ARM OPERATOR.CNM Work Phone: [facility] 1997 poliovirus vaccine, inactivated Hodanespinoza Jacob EIGHT ARM OPERATOR.CNM Work Phone: [facility] 1997 hepatitis B immune globulin Hodan Jacob EIGHT ARM OPERATOR.CNM Work Phone: [facility] 1997 hepatitis B vaccine, pediatric or pediatric/adolescent dosage Hodan Jacob EIGHT ARM OPERATOR.CNM Work Phone: [facility] Work Phone: NEGATED: Highlighted row has not occurred!03-15-2024 measles, mumps and rubella virus vaccine Rand Hallman MD Work Phone: [employer] Comment on above: Deferred: No longer needed NEGATED: Highlighted row has not occurred!03-15-2024 tetanus toxoid, reduced diphtheria toxoid, and acellular pertussis vaccine, adsorbed Rand Hallman MD Work Phone: [employer] Comment on above: Deferred: No longer needed NEGATED: Highlighted row has not occurred!03-13-2024 influenza, injectable, madin bruce canine kidney, preservative free Rand Hallman MD Work Phone: [employer] Comment on above: Deferred: Patient Re fused - not now per pt Payers Date Payer Category Payer Unknown [id number] 2024 Self-pay [id number] 2023 Commercial Pik[employer] [facility] [employer] [id number] 2023 Unknown [id number] 2021 Unknown [id number]. 1.13.159. [id number] 2006 Unknown MOE [id number] 1997 Unknown [id number] 2.16.840.1.976008.3.579. 2.479 1997 Unknown [id number] 2.16.840.1.375390.3.579. 2.479 1997 Unknown [id number] 2.16.840.1.544746.3.579. 2479 1997 Unknown [id number] 2.16.840.1.374760.3.579. 2.479 1997 Unknown [id number] 2.16.840.1.982072.3.579. 2479 1997 Unknown [id number] 2.16.840.1.870567.3.579. 2479 1997 Unknown [id number] 2.16.840.1.234291.3.579. 2479 1997 Unknown [id number] 2.16840.1.550403.3.579. 2479 1997 Unknown [id number] 2.16840.1.805756.3.579. 2.651 1997 Unknown [id number] 2.16840.1.313897.3.579. 2.627 1997 Unknown [id number] 2.16840.1.722175.3.579. 2.627 1997 Unknown [id number] 2.16840.1.898422.3.579. 2.627 1997 Unknown [id number] 2.16.840.1.862890.3.579. 2.627 1997 Unknown [id number] 2.16840.1.015319.3.579. 2.627 1997 Unknown [id number] 2.16840.1.822344.3.579. 2.627 Unknown ANTHEM SECONDARY [id number] Unknown [id number] 2.16.840.1.397699.3.579. 2.462 Unknown [id number] 2.16.840.1.765808.3.579. 2.462 Unknown [id number] 2.16.840.1.661339.3.579. 2.462 Unknown [id number] 2.16.840.1.748922.3.579. 2.462 Unknown [id number] 2.16840.1.540799.3.579. 2.462 Unknown [id number] 2.16.840.1.825948.3.579. 2.462 Unknown [id number] 2.16.840.1.660134.3.579. 2.462 Unknown [id number] 2.16.840.1.024954.3.579. 2.462 Unknown [id number] 2.16840.1.607425.3.579. 2.462 Unknown [id number] 2.16840.1.823755.3.579. 2.462 Unknown [id number] 2.16840.1.558712.3.579. 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 [employer] Smokes tobacco daily [employer] Work Phone: Start: 08-26-[address] [facility] Start: 03-06-2024 End: 10-12-2024 Alcoholic beverage intake Ex-drinker (finding) [facility] Start: 03-11-2024 End: 10-12-2024 History of Social function [facility] Start: 03-11-2024 End: 10-12-2024 [facility] [employer] [facility] Has the MemfoACT, ViSSee, or water Moni threatened to shut off services in your home in past 12Mo No [facility] (I/We) worried wheth er (my/our) food would run out before (I/we) got money to buy more. Never true [facility] [employer] In the past 12 month s, has lack of transportation kept you from medical appointments or from getting medications? No [facility] Start: 10-11-2024 End: 03-06-2025 Tobacco smoking status NHIS Ex-smoker (finding) [facility] Start: 10-12-2024 End: 10-14-2024 Sex Female (finding) [facility] How often to you hav e a drink containing alcohol? Never [facility] Do you feel stress - tense, restless, nervous, or anxious, or unable to sleep at night because your mind is troubled all the time - these days [OSQ] Only a little [facility] [employer] NEGATED: Highlighted row [facility] Medical Equipment Procedure Code Equipment Code Equipment [...] Assessment Result Facility 12-02-2022 Cognitive function Voice/Name [facility] Work Phone: Clinical Notes 09-13-2011 to 03-06-2025 Note Date & Type Note Facility 03-06-2025 Evaluation note Diagnosis Onset Date Resolution Encounter for routine gynecological examination noneactive March 06, 025 2:30pm [facility] Work Phone: 1(750) 762-897004-14-2025 Discharge summary [facility] Medical Records Department [address] [place] [address] Emergency Department Summary 10/14/24 MR#: [id number] Acct: [id number] Name: JOSE EDWARD Rep #:[id number] : 1995 29 From: Soren Babcock MD PCP: CHERYL Samano Status:REG ER Location: ED HPI History of Present Illness Chief Complaint: Abd Pain Narrative Narrative: 29-year-old female presents with abdominal pain. On 10/11/2024 she drove to [place], [place] to have egg retrieval at a fertility clinic. They did the procedure vaginally and punctured her bladder while retrieving some eggs. They prescribed Keflex and Pyridium. She drove home that same day and developed chest pain, shortness of breath, nausea and abdominal pain and had difficulty emptying her bladder. She was evaluated at [facility] on the same day 10/[address] scan of chest abdomen pelvis negative for PE. There were enlarged ovaries with numerous cysts and moderate volume ascites compatible with ovarian hyperstimulation syndrome. She also had a West placed for urinary retention. [facility] treatment. She statesthey attempted a [...] and shortness of breath are much better. [facility] Medical History Abnormal uterine bleeding Conceived [...] 02/28/24 Unknown R x (FreeStyle Lexi 2 Randolph) flash glucose sensor (FreeStyle #1 02/28/24 Unknown Rx Lexi 2 Sensor kit) PNV no.151-iron 27 mg-folic 800 1 cap PO DAILY 5 Unknown History mcg-omega3 260 [id number]-eyq-[id number]-fish capsule ( Multi-DHA (with vitamin K)) cabergoline [...] Diabetes Uncle Diabetes Grandmother Diabetes Surgical History [place] teeth extracted History of hysteroscopy Status post laparoscopy S/P D&C (status post dilation and curettage) Hx of lumpectomy History of tonsillectomy and adenoidectomy Social History adopted: No household members: spouse number of children: 0 current occupational status: employed current occupation: [employer] current occupational exposures/hazards: No pets and animals: Yes (Avoid litterbox) pets and animals: cat(s) and dog(s) history of recent travel: Yes ([facility]) out of state: Yes out of country: No sexually active: Yes Smoking Status: Former smoker Electronic Cigarette Use: with nicotine alcohol intake: never substance use type: does not use well-balanced diet: daily or most days caffeine: No eating out: 1-3 times/week during the past year weight has: increased > 10 lbs what type of physical activity do you participate in: none jessica/alevism: Sikhism seatbelt use: always do you feel safe [...] constipation, and urinary issues. She was at [facility] the last few days and they [...] % (Auto) 69.3 Lymph % (Auto) 21.9 Stewart % (Auto) 6.5 Eos % (Auto) 1.6 [...] Sl. Cloudy Urine pH 7.0 Ur Specific Banco 1.015 Urine Protein 30 H Urine Glucose [...] X-Ray 10/14/24 21:24 IMPRESSION: CONSTIPATION. [facility] Narrative Medical decision making narrative: Differential includes but not limited to: Urinary retention, UTI, intra- abdominal infection, ovarian hyperstimulation, constipation 29-year-old female had eggs retrieval 3 days ago and was told her bladder was punctured. Since thenshe has had nausea, abdominal pain constipation, and urinary issues. She was at [facility] the last few days and they [...] at a CT was sent to [facility]. They attempted at that time a [...] % (Auto) 69.3 Lymph % (Auto) 21.9 Stewart % (Auto) 6.5 Eos % (Auto) 1.6 [...] Sl. Cloudy Urine pH 7.0 Ur Specific Banco 1.015 Urine Protein 30 H Urine Glucose [...] X-Ray 10/14/24 21:24 IMPRESSION: CONSTIPATION. [facility] Dis[facility] Plan Triage Chief Complaint: Abd Pain ED Midlevel Provider: Anabella Malave ED Provider: Soren Babcock Dx/Rx/DC Orders Clinical Impression: Constipation, Abdominal pain, Ovarian hyperstimulation syndrome Instructions: Abdominal Pain, ED Constipation (Adult) Prescriptions: No Action omeprazole 20 mg tablet,delayed release (DR/EC) 20 mg PO DAILY (DME) FreeStyle Lexi 2 Randolph Misc See Rx Instructions .Route Qty: 1 [...] lunch, and supper. Primary Care Provider: Marco Mlevin Referrals: Marco Melvin PA [Primary Care Provider] - Activity Restrictions/Additional Instructions: The x-ray of your abdomen shows significant constipation. I recommend you take magnesium citrate which is sold [id number]. Drink plenty of water and Gatorade to avoid dehydration as this will cause a lot of bowel movements. You also could be having pain from the ovarian hyperstimulation syndrome which should get better over time. 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 Print Language: Brazilian Disposition Disposition: Home, Self Care What to do if you have Problems For any increased pain, shortness of breath, bleeding, nausea or vomiting, chestpain, or any unexpected problems, contact your Primary Care Provider. Call [facility] ([phone]) or report tothe closest Emergency Room. Call 911 if necessary. 10/14/242145 Cosigner Signature (if applicable): 10/14/242142 CC: CHERYL Samano ~ Signed [facility]04-14-2025 Radiology Diagnostic study note [facility] Imaging Services [address] [place] [address] Abdomen Single View (Portable) MR#: [id number] Acct: [id number] Name: JOSE EDWARD Rep #: [id number] : 1995 F 29 From: Makenna Brown DO PCP: CHERYL Samano Status: PRE ER Study:Abdomen Single View (Portable) Date of Exam: 10/14/24 Exam# [id number] Ordering Dr: Anabella Akers PROCEDURE: ABDOMEN SINGLE [...] [facility] CC: CHERYL Weinstein; CHERYL Samano ~ Charge Preparation Technician: Signed [facility]04-14-2025 Discharge summary Author Soren Babcock [facility] Note Date/Time October 14, 2024 9:4 6pm [facility] Medical Records Department [address] [place] [address] Emergency Department Summary 10/14/24 MR#: [id number] Acct: [id number] Name: JOSE EDWARD Rep #:[id number] : 1995 29 From: Soren Babcock MD PCP: CHERYL Samano Status:REG ER Location: ED HPI <CHERYL Weinstein - Last Filed: 10/14/24 21:43> History of Present Illness Chief Complaint: Abd Pain Narrative Narrative: 29-year-old female presents with abdominal pain. On 10/11/2024 she drove to [place], [place] to have egg retrieval at a fertility clinic. They did the procedure vaginally and punctured her bladder while retrieving some eggs. They prescribed Keflex and Pyridium. She drove home that same day and developed chest pain, shortness of breath, nausea and abdominal pain and had difficulty emptying her bladder. She was evaluated at [facility] on the same day 10/[address] scan of chest abdomen pelvis negative for PE. There were enlarged ovaries with numerous cysts and moderate volume ascites compatible with ovarian hyperstimulation syndrome. She also had a West placed for urinary retention. She was transferred to [facility] for definitive treatment. She statesthey attempted a [...] Her [place] catheter was also removed yesterday[facility] 1 [facility]. She presents because she had a low-grade temperature of 99 ?F and still having nausea and generalizedabdominal pain and is urinating frequent small amounts. The chest pain and shortness of breath are much better. [facility] <CHERYL Weinstein - Last Filed: 10/14/24 21:43> [facility] Medical History Abnormal uterine bleeding Conceived [...] 02/28/24 Unknown R x (FreeStyle Lexi 2 Randolph) flash glucose sensor (FreeStyle #1 ea 02/28/24 Unknown Rx Lexi 2 Sensor kit) PNV no.151-iron 27 mg-folic 800 1 cap PO DAILY 5 Unknown History mcg-omega3 260 sx-mjo-tir-fish capsule ( Multi-DHA (with vitamin K)) cabergoline [...] Diabetes Uncle Diabetes Grandmother Diabetes Surgical History [place] teeth extracted History of hysteroscopy Status post laparoscopy S/P D&C (status post dilation and curettage) Hx of lumpectomy History of tonsillectomy and adenoidectomy Social History adopted: No household members: spouse number of children: 0 current occupational status: employed current occupation: [employer] current occupational exposures/hazards: No pets and animals: Yes (Avoid litterbox) pets and animals: cat(s) and dog(s) history of recent travel: Yes ([facility]) out of state: Yes out of country: No sexually active: Yes Smoking Status: Former smoker Electronic Cigarette Use: with nicotine alcohol intake: never substance use type: does not use well-balanced diet: daily or most days caffeine: No eating out: 1-3 times/week during the past year weight has: increased > 10 lbs what type of physical activity do you participate in: none jessica/alevism: Sikhism seatbelt use: always do you feel safe [...] Ox 100 Oxygen Delivery Method Room Air [facility] <CHERYL Weinstein - Last Filed: 10/14/24 21:43> [facility] Narrative Medical decision making narrative: Differential includes but not limited to: Urinary retention, UTI, intra- abdominal infection, ovarian hyperstimulation, constipation 29-year-old female had eggs retrieval 3 days ago and was told her bladder was punctured. Since then she has had nausea, abdominal pain constipation, and urinary issues. She was at [facility] the last few days and they [...] % (Auto) 69.3 Lymph % (Auto) 21.9 Stewart % (Auto) 6.5 Eos % (Auto) 1.6 [...] Sl. Cloudy Urine pH 7.0 Ur Specific Banco 1.015 Urine Protein 30 H Urine Glucose [...] X-Ray 10/14/24 21:24 IMPRESSION: CONSTIPATION. [facility] <Dr. Soren Babcock MD - Last Filed: 10/14/24 21:46> [facility] MDM Narrative Medical decision making narrative: Differential includes but not limited to: Urinary retention, UTI, intra- abdominal infection, ovarian hyperstimulation, constipation 29-year-old female had eggs retrieval 3 days ago and was told her bladder was punctured. Since then she has had nausea, abdominal pain constipation, and urinary issues. She was at [facility] the last few days and they [...] % (Auto) 69.3 Lymph % (Auto) 21.9 Stewart % (Auto) 6.5 Eos % (Auto) 1.6 [...] Sl. Cloudy Urine pH 7.0 Ur Specific Banco 1.015 Urine Protein 30 H Urine Glucose [...] X-Ray 10/14/24 21:24 IMPRESSION: CONSTIPATION. Reading [facility] Discharge Plan Triage Chief Complaint: Abd Pain ED Midlevel Provider: Anabella Malave ED Provider: Soren Babcock Dx/Rx/DC Orders Clinical Impression: Constipation, Abdominal pain, Ovarian hyperstimulation syndrome Instructions: Abdominal Pain, ED Constipation (Adult) Prescriptions: No Action omeprazole 20 mg tablet,delayed release (DR/EC) 20 mg PO DAILY (DME) FreeStyle Lexi 2 Randolph Misc See Rx Instructions .Route Qty: 1 [...] you take magnesium citrate which is sold ifwr-psz-uxjdadi. Drink plenty of water and Gatorade to avoid dehydration as this will cause a lot of bowel movements. You also could be having pain from the ovarian hyperstimulation syndrome which should get better over time. 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 Print Language: Brazilian Disposition Disposition: Home, Self Care What to do if you have Problems For any increased pain, shortness of breath, bleeding, nausea or vomiting, chestpain, or any unexpected problems, contact your Primary Care Provider. Call [facility] ([phone]) or report to the closest Emergency Room. Call 911 if necessary. 10/14/242145 <Electronically signed by Soren Babcock MD> Cosigner Signature (if applicable): 10/14/242142 <Electronically signed by Anabella LUNA> CC: CHERYL Samano ~ Signed [facility] Work Phone: 1(604) 812-842204-13-2025 NoteGyn Discharge Summary Patient Name: Jose Edward [...] Follow up in 1-2 weeks with primary WASHHOUSE WORKER, Dr. Velarde. Discharge instructions reviewed and questions [...] up: 1 to 2 weeks with primary WASHHOUSE WORKER Condition on discharge: good and stable Discharge Date: 10/13/24 Comments: Home care, Follow-up care, restrictions reviewed. Jade Carmona DO 10/13/2024, 11:44 [place] [id number] Hospital course Narrative* Jade Carmona DO - 10/13/2024 11:42 AM EDT Images from the original note were not included. Turbo Operator Discharge Summary Patient Name: Jose Edward Patient [...] Follow up in 1-2 weeks with primary WASHHOUSE WORKER, Dr. Velarde. Discharge instructions reviewed and questions [...] up: 1 to 2 weeks with primary WASHHOUSE WORKER Condition on discharge: good and stable Discharge Date: 10/13/24 Comments: Home care, Follow-up care, restrictions reviewed. Jade Carmona DO 10/13/2024, 11:44 AM Cosigned by Gypsy Pelayo MD at 10/13/2024 12:56 PM EDT documented in this [facility]04-13-2025 History of Present illness Narrative* Jade Carmona DO - 10/13/2024 6:11 AM EDT Images from the original note were not included. REGISTRATION SCHEDULING SPECIALIST Progress Note Date: 10/13/2024 Time: 6:11 AM [...] Problem: Ovarian hyperstimulation syndrome Please page the [facility] OBGYN Call RES group via Secure [...] distended. Awaiting paracentesis today. documented in this [facility]04-13-2025 Plan of care note* Care Plan - [...] monitored and maintained or improved Outcome: Progressing [id number] Miscellaneous Notes* Care Plan - Lucinda Poe [...] or improved Outcome: Progressing documented in this [facility]04-12-2025 Plan of care note* Care Plan - [...] monitored and maintained or improved Outcome: Progressing [facility] HospitalYyevxq71-12-2325 History and physical note* Jade Carmona, DO - 10/12/2024 5:56 AM EDT Images from the original note were not included. WASHHOUSE WORKER H&P Patient Name: Jose Edward Patient : 1995 Room/Bed: [facility]/[address] Admission Date/Time: 10/12/2024 3:14 AM Primary Care Physician: Marco Melvin HPI: Jose Edward is a 29 y.o. female patient transferred from [facility] for concern for ovarian hyperstimulation syndrome. Patient recently had an egg retrieval in [place] 24 hours ago, she states that over [...] abdominal distention, nausea -Patient was evaluated at [facility] initially and obtained imaging as stated below, imaging is available on PACS -CT A/P 10/11 no traumatic abdominal aortic injury or retroperitoneal hematoma, markedly enlarged ovaries with numerous ovarian cysts and moderate volume ascites, compatible with ovarian hyperstimulation - CTA 10/11 no traumatic thoracic aortic aneurysm or mediastinal hematoma ectasia of the main pulmonary artery seen in pulmonary hypertension -Patient transferred to [facility] for further management -CBC, CMP, coags [...] pain management -Avoid NSAIDs Please page the [facility] OBGYN Call RES group via Secure [...] care as documented in the resident's note. [id number] Note Attestation signed by Malia Reina MD at 10/12/2024 10:19 PM Hospital Care (Independent): I independently saw and evaluated the patient. I agree with the findings and plan of care as documented in the resident's note. WASHHOUSE WORKER H&P Patient Name: Jose Edward Patient : 1995 Room/Bed: [facility]/[address] Admission Date/Time: 10/12/2024 3:14 AM Primary Care Physician: Marco Melvin HPI: Jose Edward is a 29 y.o. female patient transferred from [facility] for concern for ovarian hyperstimulation syndrome. Patient recently had an egg retrieval in [place] 24 hours ago, she states that over [...] Normocephalic and atraumatic. Pulm (more content not included)...[facility]04-12-2025 History and physical note* Jade Carmona, DO - 10/12/2024 5:56 AM EDT Images from the original note were not included. WASHHOUSE WORKER H&P Patient Name: Jose Edward Patient : 1995 Room/Bed: [facility] A Admission Date/Time: 10/12/2024 3:14 AM Primary Care Physician: Marco Melvin HPI: Jose Edward is a 29 y.o. female patient transferred from [facility] for concern for ovarian hyperstimulation syndrome. Patient recently had an egg retrieval in [place] 24 hours ago, she states that over [...] abdominal distention, nausea -Patient was evaluated at [facility] initially and obtained imaging as stated below, imaging is available on PACS -CT A/P 10/11 no traumatic abdominal aortic injury or retroperitoneal hematoma, markedly enlarged ovaries with numerous ovarian cysts and moderate volume ascites, compatible with ovarian hyperstimulation - CTA 10/11 no traumatic thoracic aortic aneurysm or mediastinal hematoma ectasia of the main pulmonary artery seen in pulmonary hypertension -Patient transferred to [facility] for further management -CBC, CMP, coags [...] pain management -Avoid NSAIDs Please page the [facility] OBGYN Call RES group via Secure [...] in the resident's note. documented in this [facility]04-12-2025 Discharge summary [facility] Medical Records Department [address] [place] [address] Emergency Department Summary 10/11/24 MR#: [id number] Acct: [id number] Name: JOSE EDWARD Rep #:[id number] : 1995 29 From: Fern Marroquin DO PCP: CHERYL Samano Status:REG ER Location: ED HPI History of Present Illness Chief Complaint: Shortness of Breath Detail of Chief Complaint: Shortness of breath and abdominal pain Informant: patient Narrative Narrative: Patient presents to the emergency department complaint shortness of breath and abdominal pain that started this morning. [facility] [...] No prior history of PE or DVT [facility] Medical History Abnormal uterine bleeding Conceived [...] 02/28/24 Unknown R x (FreeStyle Lexi 2 Randolph) flash glucose sensor (FreeStyle #1 ea 02/28/24 Unknown Rx Lexi 2 Sensor kit) PNV no.151-iron 27 mg-folic 800 1 cap PO DAILY 5 Unknown History mcg-omega3 260 xy-fim-toz-fish capsule ( Multi-DHA (with vitamin K)) cabergoline [...] Diabetes Uncle Diabetes Grandmother Diabetes Surgical History [place] teeth extracted History of hysteroscopy Status post laparoscopy S/P D&C (status post dilation and curettage) Hx of lumpectomy History of tonsillectomy and adenoidectomy Social History adopted: No household members: spouse number of children: 0 current occupational status: employed current occupation: [employer] current occupational exposures/hazards: No pets and animals: Yes (Avoid litterbox) pets and animals: cat(s) and dog(s) history of recent travel: Yes ([facility] [place]) out of state: Yes out of country: No sexually active: Yes Smoking Status: Former smoker Electronic Cigarette Use: with nicotine alcohol intake: never substance use type: does not use well-balanced diet: daily or most days caffeine: No eating out: 1-3 times/week during the past year weight has: increased > 10 lbs what type of physical activity do you participate in: none jessica/alevism: Sikhism seatbelt use: always do you feel safe [...] transfer patient to tertiary care center at [facility] for definitive treatment. Discussed case with Dr. Covarrubias at [facility] who accepted transfer ofpatient to their [...] 87.1 H Lymph % (Auto) 8.2 L Stewart % (Auto) 4.0 Eos % (Auto) 0.0 [...] Clarity Clear Urine pH 7.0 Ur Specific Banco 1.010 Urine Protein 30 H Urine Glucose [...] compatible with ovarian hyperstimulation syndrome. Reading Location: [facility] Discharge Plan Triage Chief Complaint: Shortness of Breath Other Complaint: Abd Pain ED Provider: Fern Marroquin Dx/Rx/DC Orders Clinical Impression: Abdominal pain, Ovarian hyperstimulation syndrome, Leukocytosis, Acute urinary retention Prescriptions: No Action omeprazole 20 mg tablet,delayed release (DR/EC) 20 mg PO DAILY (DME) FreeStyle Lexi 2 [place] Misc See Rx Instructions .Route Qty: 1 [...] [place] [Primary Care Provider] - Print Language: Brazilian Disposition Disposition: DC/Tx to Another Type of HCF What to do if you have Problems For any increased pain, shortness of breath, bleeding, nausea or vomiting, chestpain, or any unexpected problems, contact your Primary Care Provider. Call [facility] ([phone]) or report tothe closest Emergency Room. Call 911 if necessary. 10/12/245 Cosigner Signature (if applicable): CC: CHERYL Samano ~ Signed [facility]04-11-2025 Radiology Diagnostic study note [facility] Imaging Services [address] [place] [address] CTA Chst, Abd, Pel W and/or WO MR#: [id number] Acct: [id number] Name: JOSE EDWARD Rep #: [id number] : 1995 F 29 From: Afia Francis MD PCP: CHERYL Samano Status: REG ER Study:CTA Chst, Abd, Pel W and/or WO Date of Exam: 10/11/24 Exam# [id number] Ordering Dr: Delma Marroquin DO PROCEDURE: CTA [...] compatible with ovarian hyperstimulation syndrome. Reading Location: [facility] CC: Dr. Fern Marroquin DO; CHERYL Samano ~ Charge Preparation Technician: Signed [facility]04-11-2025 Discharge summary Author Fern Marroquin [facility] Note Date/Time October 12, 2024 12: 06am [facility] Medical Records Department [address] [place] [address] Emergency Department Summary 10/11/24 MR#: [id number] Acct: [id number] Name: JOSE EDWARD Rep #:[id number] : 1995 29 From: Fern Marroquin DO PCP: CHERYL Samano Status:REG ER Location: ED HPI History of Present Illness Chief Complaint: Shortness of Breath Detail of Chief Complaint: Shortness of breath and abdominal pain Informant: patient Narrative Narrative: Patient presents to the emergency department complaint shortness of breath and abdominal pain that started this morning. Patient states that she had driven [place] this morning to have egg retrieval at [...] No prior history of PE or [facility] Medical History Abnormal uterine bleeding Conceived [...] 02/28/24 Unknown R x (FreeStyle Lexi 2 Randolph) flash glucose sensor (FreeStyle #1 ea 02/28/24 Unknown Rx Lexi 2 Sensor kit) PNV no.151-iron 27 mg-folic 800 1 cap PO DAILY 5 Unknown History mcg-omega3 260 qz-dzu-cdd-fish capsule ( Multi-DHA (with vitamin K)) cabergoline [...] Diabetes Uncle Diabetes Grandmother Diabetes Surgical History [place] teeth extracted History of hysteroscopy Status post laparoscopy S/P D&C (status post dilation and curettage) Hx of lumpectomy History of tonsillectomy and adenoidectomy Social History adopted: No household members: spouse number of children: 0 current occupational status: employed current occupation: [employer] current occupational exposures/hazards: No pets and animals: Yes (Avoid litterbox) pets and animals: cat(s) and dog(s) history of recent travel: Yes ([facility] [place]) out of state: Yes out of country: No sexually active: Yes Smoking Status: Former smoker Electronic Cigarette Use: with nicotine alcohol intake: never substance use type: does not use well-balanced diet: daily or most days caffeine: No eating out: 1-3 times/week during the past year weight has: increased > 10 lbs what type of physical activity do you participate in: none jessica/alevism: Sikhism seatbelt use: always do you feel safe [...] transfer patient to tertiary care center at [facility] for definitive treatment. Discussed case with Dr. Covarrubias at [facility] who accepted transfer of patient to [...] 87.1 H Lymph % (Auto) 8.2 L Stewart % (Auto) 4.0 Eos % (Auto) 0.0 [...] Clarity Clear Urine pH 7.0 Ur Specific Banco 1.010 Urine Protein 30 H Urine Glucose [...] compatible with ovarian hyperstimulation syndrome. Reading Location: [facility] Discharge Plan Triage Chief Complaint: Shortness of Breath Other Complaint: Abd Pain ED Provider: Fern Marroquin Dx/Rx/DC Orders Clinical Impression: Abdominal pain, Ovarian hyperstimulation syndrome, Leukocytosis, Acute urinary retention Prescriptions: No Action omeprazole 20 mg tablet,delayed release (DR/EC) 20 mg PO DAILY (DME) FreeStyle Lexi 2 [place] Misc See Rx Instructions .Route Qty: 1 [...] PA [Primary Care Provider] - Print Language: Brazilian Disposition Disposition: DC/Tx to Another Type of HCF What to do if you have Problems For any increased pain, shortness of breath, bleeding, nausea or vomiting, chestpain, or any unexpected problems, contact your Primary Care Provider. Call [facility] ([phone]) or report to the closest Emergency Room. Call 911 if necessary. 10/12/245 <Electronically signed by Fern Marroquin DO> Cosigner Signature (if applicable): CC: CHERYL Samano ~ Signed [facility] Work Phone: 1(512) 243-759812-18-2024 Evaluation note* Diagnosis Onset Date Resolution Status Admit Date Amenorrhea acute June 19, 2024 9:36am Pelvic floor dysfunction acute June 19, 2024 9:36am Vaginal discharge acute Decembe r 2023 9:36am [facility] Work Phone: 1(999) 208-251509-15-2024 Nurse Note* Maryellen Posey RN - 03/17/2024 6:40 PM EDT Mom discharged mom in good condition with all belongings to a private residence, accompanied by . All discharge instructions reviewed with patient who verbalizes understanding and denies further questions.Mom walked out at [address] [facility]rx[facility]25-13-5190 Nurse Note* Maryellen Posey RN - 03/17/2024 [...] cramping / contractions occur. documented in this [facility]09-15-2024 NoteDepartment of Obstetrics and Gynecology Delivery Discharge [...] Information for the patient's : Marcus Edward [[id number]] male 3 lb 6.7 oz (1.55 kg) Apgars: Information for the patient's : Marcus Edward [[id number]] : : Boy, Blood Type/Rh: O Antibody [...] Your Medications These medications were sent to [facility] [address] [place] [address] Hours: Monday to Monday 10 am to [...] [] Order a blood pressure kit through [facility] (or the patient's own pharmacy on the weekend) [] Order the blood pressure log through [employer] [] Place an office visit or telephone [...] notify her physician if any of these occur.[facility]09-15-2024 Hospital course Narrative* Wendi Aguilar MD [...] Information for the patient's : Marcus Edward [[id number]] male 3 lb 6.7 oz (1.55 kg) Apgars: Information for the patient's : Marcus Edward [[id number]] : : Boy, Blood Type/Rh: O Antibody [...] Your Medications These medications were sent to [facility] [address] [place] [address] Hours: Monday to Monday 10 am to [...] a blood pressure kit through [facility] (or the patient's own pharmacy on the weekend) [] Order the blood pressure log through [employer] [] Place an office visit or telephone [...] any of these occur. documented in this [facility]09-15-2024 Miscellaneous Notes* Note - Melissa Mantilla RN - 03/17/2024 8:00 AM EDT Check in with mom, pumping for 30 5/7 week in NICU. Mom is pumping 15cc per session. Observed pump session and resized her flanges to 22.5mm. Mom was given Spectra pump from [facility] jewelry consultant. Answer mom's questions. Discharge today. * [...] be able to transfer baby to [place]. Sw also dicussed her and can stay at bedside. Discussed with NICU Sw who did meet with parents to assist. No further needs anticipated. OK FOR DC * Care Coordination - Amy Connor RN - 03/15/2024 12:25 PM EDT Date: 03/15/2024 Name: Jose Edward : 1995 [facility] Patient Information Primary Caregiver: Self Accompanied by/Relationship: S/O;Family Marital Status: Support System: SO/Family Adventism/Cultural Factors: none Activities of Daily Living Communication: [...] 30 6/7 weeks. [place] [facility] ( [facility] [place] [facility]). Nurse has mom set up with hospital [...] electric breast pump- [facility].All questions answered. Will continue [...] closely. Savanah Duarte DO 03/13/2024 11:23 PM [place] more cramping. 1cm dilated. Reportedly was 1cm [...] options for home going pump; pt has [employer] insurance. Availability of LC for NICU and reviewed. Shereena handout Your NICU Baby given and reviewed. Encouraged to watch videos from [employer] to support her goals. [facility]. Encouraged to call with [...] in the possibility of staying at the [facility] after delivery due to living approx. 2 hours away; patient and provided background check paperwork; will be faxed to [facility] referral line; Will consult for patient as pt would like to see prior to delivery * Care Coordination - Amy Connor RN - 03/07/2024 10:58 AM EDT Date: 03/07/2024 Name: Jose Edward : 1995 [facility] Information [place] - transport Patient Information Primary Caregiver: Self Accompanied by/Relationship: S/O;Family Marital Status: Support System: SO/Family Adventism/Cultural Factors: Activities of Daily Living Communication: See [...] N/A Children's Services: N/A documented in this [facility]09-15-2024 Obstetrics Note* Note - Melissa Mantilla RN - 03/17/2024 8:00 AM EDT Check in with mom, pumping for 30 5/7 week in NICU. Mom is pumping 15cc per session. Observed pump session and resized her flanges to 22.5mm. Mom was given Spectra pump from [facility] jewelry consultant. Answer mom's questions. Discharge today. [facility] [id number] History of Present illness Narrative* Chelsie Swenson, [...] 03/14 - Dexcom in place (share code [id number]) - Discontinued meds after delivery and have [...] which is appropriate. RD sign off to quality assurance qa lab technician to continue to monitor. Gypsy Kirby [...] anhydramnios; ROM rule out was deferred in [place] secondary to blood noted; transported to [facility] - in triage, SSE showed gross [...] diet - Dexcom in place, share code [id number] - Continue to monitor BGTs fasting and [...] anhydramnios; ROM rule out was deferred in [place] secondary to blood noted; transported to [facility] - in triage, SSE showed gross [...] diet - Dexcom in place, share code [id number] - Continue to monitor BGTs fasting and [...] infection. Primary patient of Edouard Paulson/Prachi in [place]. Alerted her RN today to continue temp [...] Jacey secondary to blood noted; transported to [facility] - in triage, SSE showed gross [...] diet - Dexcom in place, share code [id number] - Continue to monitor BGTs fasting and [...] anhydramnios; ROM rule out was deferred in [place] secondary to blood noted; [facility] [facility] - in triage, SSE showed gross [...] diet - Dexcom in place, share code [id number] - Continue to monitor BGTs fasting and [...] admitted for PPROM Pertinent Background: Transferred from [place] for PPROM. Gross rupture confirmed on admit and anhydramnios at OSH ultrasound. 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 We discussed the indication for delivery with [...] anhydramnios; ROM rule out was deferred in [place] secondary to blood noted; transported to [facility]. In triage,SSE showed gross rupture of [...] (188 lb) (03/06) Weight Source: Not Specified [place] Body Weight (lbs) (Calculated): 110 lbs [place] Body Weight (Kg) (Calculated): 50 kg % [place] Body Weight (Calculated): 170.9 % BMI (kg/m2) [...] soon to determine Joanne Adame RD Contact: [employer] or *[phone] * Mary Alonso MD - 03/10/2024 7:11 AM EDT Images from the original note were not included. Maternal Medicine Service Resident Progress Note 03/10/2024 7:11 AM 03/06/2024 Hospital Day: 5 Jose Thomasjoy, 28 y.o. 30w1d Patient has been seen [...] anhydramnios; ROM rule out was deferred in [place] secondary to blood noted; transported to [facility] - in triage, SSE showed gross [...] diet - Dexcom in place, share code [id number] - Continue to monitor BGTs fasting and [...] admitted for PPROM Pertinent Background: Transferred from [place] for PPROM. Gross rupture confirmed on admit and anhydramnios at OSH ultrasound. 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 We discussed the indication for delivery with [...] Jacey secondary to blood noted; transported to [facility] - in triage, SSE showed gross [...] diet - Dexcom in place, share code [id number] - Continue to monitor BGTs fasting and [...] admitted for PPROM Pertinent Background: Transferred from [place] for PPROM. Gross rupture confirmed on admit and anhydramnios at OSH ultrasound. 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 We discussed the indication for delivery with [...] Jacey secondary to blood noted; transported to [facility] - in triage, SSE showed gross [...] diet - Dexcom in place, share code [id number] - Continue to monitor BGTs fasting and [...] at OSH ultrasound. 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 We discussed the indication for delivery with [...] Jacey secondary to blood noted; transported to [facility] - in triage, SSE showed gross rupture of membranes with nitrazine positive, ferning negative and visually closed - Latency Abx ordered, allergy to azithromycin so currently receiving ampicillin - s/p BMZx1 at 1415 at [place], second dose ordered for today - magnesium sulfate loading dose given at outside facility, undergoing continuous infusion at 1g/hrfor neuroprotection - CEFM - General carb controlled diet - Growth US this morning - Patient is breech and will be for CD if for delivery GDMA1 - Carb control diet - Dexcom in place, share code [id number] - Continue to monitor BGTs fasting and [...] at OSH ultrasound. 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 We discussed the indication for delivery with any signs of infection. We reviewed the recommendation for inpatient admission until delivery and plan for delivery at 34 weeks unless indicated sooner for labor, infection or NRFS. All questions answered. Continue latency antibiotics for 7 days total. 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 She was evaluated in [place] initially at that time with amnisure that [...] Patient a direct admission from Transfer from [place]. Please see my other H&P attestation documented in this [facility]09-13-2024 Note* Care Coordination - IRVING Rodriguez - [...] No further needs anticipated. [place] FOR DC [facility] [place] Phone: 1(495) 429-829809-13-2024 Note* Care Coordination - IRVING Rodriguez - [...] No further needs anticipated. [place] FOR DC [place] Phone: 1(832) 624-649709-13-2024 Note* Care Coordination - Amy Connor RN - 03/15/2024 12:25 PM EDT Date: 03/15/2024 Name: Jose Edward : 1995 [facility] Patient Information Primary Caregiver: Self Accompanied by/Relationship: S/O;Family Marital Status: Support System: SO/Family Adventism/Cultural Factors: none Activities of Daily Living Communication: [...] Equipment: Developmental Delay: N/A Children's Services: N/A [id number] Note* Care Coordination - Amy Connor RN - 03/15/2024 12:25 PM EDT Date: 03/15/2024 Name: Jose Edward : 1995 [facility] Patient Information Primary Caregiver: Self Accompanied by/Relationship: S/O;Family Marital Status: Support System: SO/Family Adventism/Cultural Factors: none Activities of Daily Living Communication: [...] Equipment: Developmental Delay: N/A Children's Services: N/A [facility] [id number] Obstetrics Note* Note - Melissa Mantilla RN - 03/15/2024 7:00 AM EDT Initial visit with mom. This is mom's first baby, delivered at 30 6/7 weeks. [place] [facility] ( [facility] from [facility]). Nurse has mom set up with hospital [...] continue to monitor, encourage and support patient. [facility] [id number] Hospital Discharge instructions* Discharge Instructions* Marcela Rapp PA-C - 03/15/2024 5:22 AM EDT Images from the original note were not included. Thank you for allowing us to care of you at [facility]. This time can be one [...] over the next few weeks. Bleeding may picker/puller and then decrease again around 7-10 days [...] avoid constipation you may take a mild okvn-uel-mffbrlw stool softener (such as colace) as recommended [...] emergency, call 911 immediately. documented in this [facility]09-13-2024 Nurse Note* Yaritza Sanford RN - 03/15/2024 [...] of Humalog. Patient voiced understanding and agreeable. [employer] [id number] Note* Significant Event - Savanahmaricel Duarte DO - 03/14/2024 6:59 PM EDT 1hr pp 249. Discussed with Dr. Mancia. Will give 4u. Savanah DuarteDO 03/14/2024 6:59 PM Came back from [facility] and had eaten. Now 217. Will not eat further. Will give 4u. Advised on fasting BGT in the morning. Aware not to eat further for true fast in Am. Changed to ISHAN Duarte DO 03/15/2024 12:07 AM 60mo Phone: [phone]) 408-540609-12-2024 Note* Significant Event - Savanah Duarte DO - 03/14/2024 6:59 PM EDT 1hr pp 249. Discussed with Dr. Mancia. Will give 4u. Savanah GeraldDO 03/14/2024 6:59 PM Came back from NICU and had eaten. Now 217. Will not eat further. Will give 4u. Advised on fasting BGT in the morning. Aware not to eat further for true fast in Am. Changed to ISHAN Duarte DO 03/15/2024 12:07 AM 60mo Phone: [phone]) 576-812109-12-2024 NotePatient: Jose Edward Procedure Summary Date: 03/14/24 Room / Location: [address] Labor and Delivery Anesthesia Start: [...] discharged once all PACU criteria has been met.[facility] [id number] NotePatient: Jose Edward Procedure Summary Date: 03/14/24 Room / Location: [address] Labor and Delivery Anesthesia Start: [...] Allowed opportunity for questions and acknowledgement of understanding.[facility]09-12-2024 NotePeripheral Block Time Out: 03/14/2024 12:37 PM Patient location during procedure: Procedural Start time: 03/14/2024 12:38 PM End time: 03/14/2024 12:40 PM Reason for block: at surgeon's request and post-op pain management Staffing Performed: INSIDE SALES TERRITORY MANAGER Anesthesiologist: Antonio Maria MD Resident/INSIDE SALES TERRITORY MANAGER: Carolyn Garza APRN - INSIDE SALES TERRITORY MANAGER Preanesthetic Checklist Completed: patient identified, IV checked, site marked, risks and benefits discussed, surgical consent, monitors and equipment checked, pre-op evaluation and timeout performed Region: [place] Primary: TAP (60ml of Bupivacaine 0.375% with dexamethasone 0.01% with epinephrine 1:200,000 divided evenly bilaterally) Peripheral Block Patient position: supine Prep: ChloraPrep Patient monitoring: heart rate, director of cardiac cath lab and continuous pulse ox O2: Room air [...] injection and Local anesthetic injected without difficultyMedications dzrGVKJGbtsco-qanbskmdlpi-treefxfoegn (TAP) syringe - Injection 60 mL - 03/14/2024 12:38:00 [facility]09-12-2024 NoteSpinal Block Time Out: 03/14/2024 11:17 AM Patient location during procedure: OB Start time: 03/14/2024 11:18 AM End time: 03/14/2024 11:20 AM Reason for block: primary anesthetic Staffing Performed: INSIDE SALES TERRITORY MANAGER Anesthesiologist: Antonio Maria MD Resident/INSIDE SALES TERRITORY MANAGER: Carolyn Garza APRN - INSIDE SALES TERRITORY MANAGER Preanesthetic Checklist Completed: patient identified, IV checked, [...] Assessment Sensory level: T4 Number of attempts: [address] [place], [place] [address]109-12-2024 NotePatient: Jose Edward Procedure Information Date/Time: 03/14/24 1100 Procedure: DELIVERY (Abdomen) Location: [facility] / [facility] Labor and Delivery Surgeons: Maria Dolores [...] who consented to blood products. Additional Equipment [facility]09-12-2024 Nurse Note* Yara Chinchilla RN - 03/14/2024 8:27 AM EDT Pt reports spotting on her pad and upon assessing urine found a few red specks in her urine [facility] [id number] Nurse Note* Venessa Gold RN - 03/14/2024 6:[address] Nguyen made aware that pt was just up to restroom and had a quarter size mucousy, bloody clot into toilet. No active bleeding noted. No change to plan of care at this time [facility] [id number] Nurse Note* Venessa Gold RN - 03/14/2024 4:53 AM EDT Pt made aware that order for nothing to eat or drink has been ordered by Dr. Duarte. She states understanding. I made her aware that I will be starting IV fluids also. [facility] HospitalLcxxuf39-44-1469 Note* Significant Event - Savanah Duarte DO [...] closely. Savanah Duarte DO 03/13/2024 11:23 PM [place] more cramping. 1cm dilated. Reportedly was 1cm [...] CEFM. Savanah Duarte DO 03/14/2024 4:09 AM [facility] [id number] Note* Significant Event - Savanah Duarte DO [...] closely. Savanah Duarte DO 03/13/2024 11:23 PM [place] more cramping. 1cm dilated. Reportedly was 1cm [...] CEFM. Savanah Duarte DO 03/14/2024 4:09 AM [facility] HospitalOzmzwu61-13-0768 Note* Care Coordination - Amy Connor RN - 03/13/2024 2:48 PM EDT Hospital day 8 at 30/4 weeks. PPROM. Voiced no needs or concerns. [place] [id number] Note* Care Coordination - Amy Connor RN - 03/13/2024 2:48 PM EDT Hospital day 8 at 30/4 weeks. PPROM. Voiced no needs or concerns. [place] [id number] Plan of care note* Care Plan - Rosio Woodruff RN - 03/13/2024 6:37 AM EDT The patient is Moderately Stable - Low risk of patient condition declining or worsening The patient's goals for the shift include remain The clinical goals for the shift include remain afebrile [place] [id number] Plan of care note* Care Plan - Rosio Woodruff RN - 03/13/2024 6:37 AM EDT The patient is Moderately Stable - Low risk of patient condition declining or worsening The patient's goals for the shift include remain The clinical goals for the shift include remain afebrile [facility] HospitalQhjubu90-40-7351 Consult note* Paola Cole MD - 03/12/2024 [...] from NICU Potential need for transfer to [facility] NICU if needs esclation of care, based [...] after she delivers/is discharged. Paola Cole MD [employer] Work Phone: 1(294) 147-214509-10-2024 Consult note* Paola Cole MD - 03/12/2024 [...] from NICU Potential need for transfer to [facility]'s NICU if needs esclation of care, based [...] has already submitted an application to [facility] [place] in order to be closer for baby Josue after she delivers/is discharged. Paola Cole MD documented in this [facility]09-09-2024 Obstetrics Note* Note - Cheryl Marinelli RN [...] options for home going pump; pt has [employer] insurance. Availability of LC for NICU and reviewed. [facility] handout Your NICU Baby given and reviewed. Encouraged to watch videos from [employer] to support her goals. Resource numbers given for [facility] dept and [facility] dept. Encouraged to call with any questions / concerns. Pt receptive to my visit and education. Denies questions at this time. [facility] HospitalCylzzp61-97-4794 Note* Care Coordination - Amy Connor RN - 03/11/2024 4:10 PM EDT Hospital day 6 at 30/2 weeks. Anhydramnios PPROM at 30/2 weeks referral. Voiced no needs or concerns. [facility] HospitalCupiee81-50-6227 Note* Care Coordination - Amy Connor RN - 03/11/2024 4:10 PM EDT Hospital day 6 at 30/2 weeks. Anhydramnios PPROM at 30/2 weeks referral. Voiced no needs or concerns. [facility] HospitalYunzxx90-21-0101 NoteNutrition Assessment Type and Reason for Visit: [...] anhydramnios; ROM rule out was deferred in [place] secondary to blood noted; transported to [facility]. In triage, SSE showed gross rupture [...] (188 lb) (03/06) Weight Source: Not Specified [place] Body Weight (lbs) (Calculated): 110 lbs [place] Body Weight (Kg) (Calculated): 50 kg % [place] Body Weight (Calculated): 170.9 % BMI (kg/m2) [...] soon to determine Joanne Adame RD Contact: [employer] or *[id number] [employer] [facility] CenterAAP29-57-0253 Note* Care Coordination - Julianna Martinez RN - 03/08/2024 3:44 PM EDT Hospital Day 3; 29/6 weeks today; No concerns at this time; Pt states she is interested in the possibility of staying at the [facility] after delivery due to living approx. 2 hours away; patient and provided background check paperwork; will be faxed to [facility] referral line; Will consult for patient as pt would like to see prior to delivery [facility] HospitalKjkiyt41-55-4496 Note* Care Coordination - Julianna Martinez RN - 03/08/2024 3:44 PM EDT Hospital Day 3; 29/6 weeks today; No concerns at this time; Pt states she is interested in the possibility of staying at the [facility] after delivery due to living approx. 2 hours away; patient and provided background check paperwork; will be faxed to [facility] referral line; Will consult for patient as pt would like to see prior to delivery [facility] HospitalBtogse66-75-2263 Note* Care Coordination - Amy Connor RN - 03/07/2024 10:58 AM EDT Date: 03/07/2024 Name: Jose Edward : 1995 [facility] Information [place] - transport Patient Information Primary Caregiver: Self Accompanied by/Relationship: S/O;Family Marital Status: Support System: SO/Family Adventism/Cultural Factors: Activities of Daily Living Communication: See [...] N/A Developmental Delay: N/A Children's Services: N/A [facility] HospitalAnwufv13-91-9231 Note* Care Coordination - Amy Connor RN - 03/07/2024 10:58 AM EDT Date: 03/07/2024 Name: Jose Edward : 1995 [facility] Information [place] - transport Patient Information Primary Caregiver: Self Accompanied by/Relationship: S/O;Family Marital Status: Support System: SO/Family Adventism/Cultural Factors: Activities of Daily Living Communication: See [...] N/A Developmental Delay: N/A Children's Services: N/A [facility] HospitalBmpqcj90-57-4440 Nurse Note* Raegan Estrada RN - 03/07/2024 4:47 AM EDT RN called to bedside at 0435, pt reporting feeling increased leakage of fluid. Denies cramping, contractions, or pain, but does state feeling pressure which has become more constant. Dr Boles aware. Pt instructed to notify RN immediately if pressure intensifies or if cramping / contractions occur. [facility] HospitalNqnmqk03-64-3916 History and physical note* Juliana Nguyen DO [...] 3 weeks now. She was evaluated in [place] initially at that time with amnisure that [...] breech on US today. Transport: Yes, from [place] Prior Hospitalizations: No Estimated Due Date: Estimated [...] for about 3 weeks - presented to [place] today complaining of LOF; - US was performed that showed anhydramnios; ROM rule out was deferred in [place] secondary to blood noted - concern for PROM, transported to [facility] - in triage, SSE showed gross rupture of membranes with nitrazine positive, ferning negative and visually closed - Latency Abx ordered, allergy to azithromycin so will proceed with only ampicillin - s/p BMZx1 at 1415 at [place], second dose ordered - magnesium sulfate loading dose given prior to transport, will order continuous infusion at 1g/hr for 12 hours for neuroprotection - CEFM overnight - General carb controlled diet ordered - growth US ordered for tomorrow AM GDMA1 - Carb control diet - has Dexcom in place, share code [id number] - will monitor BGTs fasting and 1 [...] 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 I discussed the assessment and management with the resident physician. I reviewed and agree with the findings and plan as documented in the note. Transferred from [place] for PPROM. 28yo at 29 4/7 weeks presents for PPROM. Gross rupture confirmed on exam with +nitrazine and +ferning. Cervix visually closed and patient overall comfortalbe. Ultrasound at transferring facility with anhydramnios. Breech presentation. Newly diagnosed GDMA1 Will admit for latency antibiotics, BMZ, and mag for neuroprotection. Pattern glucose. CS if for delivery. Saumya Mancia MD [facility] HospitalKwhpeh63-43-6340 Note Attestation signed by Saumya Mancia MD at 03/06/2024 6:45 PM Attending Supervising Physician's Attestation Statement This 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 I discussed the assessment and management with the resident physician. I reviewed and agree with the findings and plan as documented in the note. Transferred from [place] for PPROM. 28yo at 29 4/7 weeks [...] 3 weeks now. She was evaluated in [place] initially at that time with amnisure that [...] breech on US today. Transport: Yes, from [place] Prior Hospitalizations: No Estimated Due Date: Estimated [...] Not Performed ASSESSMENT AND (more content not included)...[facility]09-04-2024 History and physical note* Juliana Ace, [...] 3 weeks now. She was evaluated in [place] initially at that time with amnisure that [...] breech on US today. Transport: Yes, from [place] Prior Hospitalizations: No Estimated Due Date: Estimated [...] for about 3 weeks - presented to [place] today complaining of LOF; - US was performed that showed anhydramnios; ROM rule out was deferred in [place] secondary to blood noted - concern for PROM, transported to [facility] - in triage, SSE showed gross rupture of membranes with nitrazine positive, ferning negative and visually closed - Latency Abx ordered, allergy to azithromycin so will proceed with only ampicillin - s/p BMZx1 at 1415 at [place], second dose ordered - magnesium sulfate loading dose given prior to transport, will order continuous infusion at 1g/hr for 12 hours for neuroprotection - CEFM overnight - General carb controlled diet ordered - growth US ordered for tomorrow AM GDMA1 - Carb control diet - has Dexcom in place, share code [id number] - will monitor BGTs fasting and 1 [...] 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 I discussed the assessment and management with the resident physician. I reviewed and agree with the findings and plan as documented in the note. Transferred from [place] for PPROM. 28yo at 29 4/7 weeks presents for PPROM. Gross rupture confirmed on exam with +nitrazine and +ferning. Cervix visually closed and patient overall comfortalbe. Ultrasound at transferring facility with anhydramnios. Breech presentation. Newly diagnosed GDMA1 Will admit for latency antibiotics, BMZ, and mag for neuroprotection. Pattern glucose. CS if for delivery. Saumya Mancia MD documented in this [facility]04-11-2024 NotePap Smear Specimen AdequacyApril 2023 11:59pmComment.Satisfactory for evaluation. No endocervical component is identified.[facility] A#[id number] Health System East CampusComment on above:Satisfactory for evaluation. No endocervical component is identified.10-12-2023 NotePap Smear Specimen AdequacyApril 2023 11:59pmComment.Satisfactory for evaluation. No endocervical component is identified.[facility] INTER[facility]ACED A#[id number] Health System East CampusComment on above:Satisfactory for evaluation. No endocervical component is identified. 09-19-2023 Discharge summary Author Karlos Miller [facility] September 19, 2023 4:24pm Note Date/Time September 19, 2023 12: 23pm [facility] Medical Records Department [address] [place] [address] Emergency Department Summary 09/19/23 MR#: [id number] Acct: [id number] Name: JOSE EDWARD Rep #:[id number] : 1995 28 From: Karlos Sarmiento PCP: [...] Patient states the procedure was done in [place] but she follows with Dr. Velarde locally. [facility] Medical History Abnormal uterine bleeding (AUB) [...] 0 current occupational status: employed current occupation: [employer] Smoking Status: Former smoker Electronic Cigarette Use: [...] 77.7 H Lymph % (Auto) 16.6 L Stewart % (Auto) 4.6 Eos % (Auto) 0.2 [...] Sl. Cloudy Urine pH 8.0 Ur Specific Banco 1.010 Urine Protein Negative Urine Glucose (UA) [...] Patient was instructed to follow-up with her WASHHOUSE WORKER in 2 to 3 days. Patient was [...] your Primary Care Provider. Call [facility] ([phone]) or report to the closest Emergency Room. Call 911 if necessary. 09/19/23 1624 <Electronically signed by Karlos Miller DO> Cosigner Signature (if applicable): CC: CHERYL Samano ~ Signed [facility] Work Phone: 1(749) 536-404906-02-[address] Villareal [facility] December 02, 2022 10:42am Note Date/Time December 02, 2022 10:39 am [facility] Medical Records Department [address] [place] [address] Instructions for Home/Discharge Instructions 12/02/22 1038 MR#: [id number] Acct: [id number] Name: JOSE EDWARD Rep #:[id number] : 1995 27 From: Julianna Newman DO PCP: CHERYL Samano Status:REG [facility] Discharge Instructions Diet Discharge Diet: No restrictions [...] Newman DO CC: CHERYL Melvin ~ Signed [facility] Work Phone: 1(812) 455-369706-02-2023 Procedure [facility] 12-02-2022 History and physical note Author Dr. Villareal [facility] December 02, 2022 10:38am Note Date/Time December 02, 2022 10:38 am [facility] Medical Records Department [address] [place] [address] History & Physical Exam 12/02/22 1037 MR#: [id number] Acct: [id number] Name: JOSE EDWARD Rep #:[id number] : 1995 27 From: Julianna Newman DO PCP: CHERYL Samano Status:REG [facility] Location: [place] [address] History and Physical Date of Admission: 12/02/22 Intake Vital Signs ? 11/09/2310:22 11/09/2310:22 Height 5 ft 2 in 5 ft 2 in Weight: 156 lb 6 oz ? BMI 28.5 ? BP 116/76 ? Intake Visit Reasons:?diagnostic lap & fulguration Waist Fitter Required: No Is patient in pain?: No [...] 0 current occupational status:? employed current occupation:? [employer] Smoking Status:? Current every day smoker Electronic [...] success. was seeing Dr. Del Real at [facility] and had a hysteroscopy D&C with removal [...] CHERYL Melvin; Dr. Julianna Newman DO~ Signed [facility] Work Phone: [phone] 502-756504-14-2023 NotePap Smear Specimen AdequacyApril 2022 5:09pmComment.Satisfactory for evaluation. Endocervical and/or squamous metaplasticcells (endocervical component)are present.[facility] INTERFACED A#[id number] Health System East CampusComment on above:Satisfactory for evaluation. Endocervical and/or squamous [...] advise. Yas Hogan RN documented in this encounter[facility] History of Past illness Narrative* Problem Noted Date Resolved Date Blurring of vision 09/13/2011 11/05/2018 Dizziness 05/10/2011 11/05/2018 Ingrowing nail 04/06/2011 07/28/2021 Cellulitis and abscess of toe, unspecified 03/1711/05/2018 documented as of this encounter (statuses as of 04/08/2022) [facility] HospitalEvaluation noteNo assessment information availableWGrant [facility] Work Phone: Evaluation note* Diagnosis Onset Date Resolution Status Encounter for routine gynecological examination noneactive Abnormal uterine bleeding ac [place] Infertility acute Abnormal uterine bleeding ac [place] Infertility acute [facility] Work Phone: evaluation note* Diagnosis Onset Date Resolution Status Abnormal uterine bleeding ac [place] Infertility acute Infertility acute Status post laparoscopy [facility] Work Phone: evaluation note* Diagnosis Onset Date Resolution Status Abnormal uterine bleeding [place] Status post laparoscopy [facility] Work Phone: evaluation note* Diagnosis Onset Date Resolution Status Abnormal uterine bleeding [place] [facility] Work Phone: evaluation note* Diagnosis Onset Date Resolution Status Abnormal uterine bleeding [place] Abnormal uterine bleeding [place] Conceived by in vitro fertilization acute Genetic testing of female ac [place] Infertility acute PCOS (polycystic ovarian syndrome) acute acute Supervision of high-risk acute Anxiety and depression chron ic [facility] Work Phone: evaluation note* Diagnosis Onset Date Resolution Status Abnormal uterine bleeding [place] Abnormal uterine bleeding [place] Conceived by in vitro fertilization acute Genetic testing of female [place] Infertility acute PCOS (polycystic ovarian syndrome) acute acute Supervision of high-risk acute Anxiety and depression chron ic Conceived by in vitro fertilization acute Genetic testing of female [place] Infertility acute acute Supervision of high-risk acute Anxiety and depression chron ic [facility] Work Phone: evaluation note* Diagnosis Anhydramnios in third trimester, single or unspecified fetus- Primary Anhydramnios in third trimester, single or unspecified fetus Vaginal bleeding in , third trimester S/P documented in this encounter [facility] note* Diagnosis History of gestational diabetes Personal history of gestational diabetes [facility] Diagnosis Ovarian hyperstimulation syndrome- Primary Other ovarian hyperfunction Ovarian hyperstimulation syndrome Other ovarian hyperfunction documented in this encounter [facility] note* Diagnosis Onset Date Resolution Status Admit Date Encounter for routine gynecological examination noneactive Sept2024 2:30pm [facility] Work Phone: Hospital Discharge instructions Additional Instructions Plenty of fluids and rest to replace your blood loss. Motrin and Tylenol for pain and cramping. Follow-up with your WASHHOUSE WORKER to ensure you are improving. Your test was negative. Your blood counts were normal.[facility] Work Phone: Hospital Discharge instructions Additional Instructions Implant Used?: [facility] Work Phone: Hospital Discharge instructions Additional Instructions The x-ray of your abdomen shows significant constipation. I recommend you take magnesium citrate which is sold [id number]. Drink plenty of water and Gatorade to avoid dehydration as this will cause a lot of bowel movements. You also could be having pain from the ovarian hyperstimulation syndrome which should get better over time. 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 Barak Covarrubias MD [address] [place] [address] [address] [place] [address] Phone: tel: fax: [facility] Medical Surgical Unit [facility] [place] [address] Phone: tel: Referral ID Status Reason Start Date Expiration Date Visits Re quested Visits Authorized [id number] 1 1 [facility] Health Summary Purpose Family History No Family History Records Found Relationship Condition Age at Onset Recorded Date/T heber mother Diabetes mellitus Unknown uncle Diabetes mellitus Unknown grandmother Diabetes mellitus Unknown Advance Directives No Advanced Directives Records Found Advance Directive Response Recorded Date/ Time Living Will No April 08 7:23pm Power of Crowning Hammer Operator No April 08 022 7:23pm Advance Directive Response Recorded Date/ Time Living Will No November 22, 2022 1 0:47am Power of Crowning Hammer Operator No November 22, 2022 10:47am Advance Directive Response Recorded Date/ Time Living Will No November 22, 2022 9 :47am Power of Crowning Hammer Operator No November 22, 2022 9:47am Advance Directive Response Recorded Date/ Time Living Will No September 19, 2023 1:13pm Power of Crowning Hammer Operator No September 18 1:13pm Advance Directive Response Recorded Date/ Time Living Will No October 12, 2023 3:47pm Power of Crowning Hammer Operator No October 11 3:47pm Date Activated Date Inactivated Comments 03/06/2024 5:26 PM 03/17/2024 8:57 PM Advance Directive Response Recorded Date/ Time Living Will No October 11, 2024 9:40pm Do you have a Healthcare Power of Crowning Hammer Operator? No October 11, 2024 9:40pm Date Activated Date Inactivated Comments 10/12/2024 3:53 AM 10/13/2024 2:55 PM Date Activated Date Inactivated Comments 03/06/2024 5:26 PM 03/17/2024 8:57 PM Advance Directive Response Recorded Date/ Time Living Will No October 11, 2024 9:40pm Do you have a Healthcare Power of Crowning Hammer Operator? No October 11, 2024 9:40pm Living Will No October 14, 2024 8:36pm Do you have a Healthcare Power of Crowning Hammer Operator? 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 SCHEDULING SPECIALIST) March 06, 2025 2:30pm Reason for Visit Admit Date Encounter for routine gynecological exam ination March 06, 2025 2:30pm Additional Source Comments INFORMATION SOURCE (unrecogn ized section and content) DATE CREATED AUTHOR 08/05/2021 [facility] DATE CREATED AUTHOR AUTHOR'S ORGANIZ ATION 05/06/2023 [facility] DATE CREATED AUTHOR AUTHOR'S ORGANIZ ATION 05/15/2024 [facility] DATE CREATED AUTHOR AUTHOR'S ORGANIZ ATION 10/14/2024 [facility] DATE CREATED AUTHOR AUTHOR'S ORGANIZ ATION 04/09/2025 [facility] DATE CREATED AUTHOR AUTHOR'S ORGANIZ ATION 04/27/[address] [facility] DATE CREATED AUTHOR AUTHOR'S ORGANIZ ATION 05/14/2025 LUBA CALDWELL N Source Comments (unrecognize d section and content) In the event this informatio n is protected by the Federal Confidentiality of Alcohol and Drug Abuse Patient Records regulations: The Federal rules restrict any use of the information to criminally investigate or prosecute any alcohol or drug abuse patient.[facility] Reason for Visit (unrecogniz ed section and content) Reason Comments Heavy Bleeding Reason Comments Rupture of Membranes Specialty Diagnoses / Procedures Referred By Contac t Referred To Contact Diagnoses Anhydramnios in third trimester, single or unspecified fetus Procedures . Saumya Mancia MD [address] [place] [address] [address] [place] [address] Referral ID Status Reason Start Date Expiration Date Visits Re quested Visits Authorized [id number] 1 1 Care Teams (unrecognized sec tion and content) Reservoir Engineering Consultant Relationship Specialty Start Date End Date Zbigniew Matta MD [address] [place], [place] [id number] PCP - General Family Medicine 11/06/18 Team [...] Provider, Referring Pro vider Active Denny Bauer WOOL HAT FORMING MACHINE TENDER, WOOL HAT FORMING MACHINE TENDER-C Attending Provider Active Team Status: Inactive Member Role Status Dates Marco Melvin PA Primary Care Provider Active Denny Bauer WOOL HAT FORMING MACHINE TENDER, WOOL HAT FORMING MACHINE TENDER-C Attending Provider, Referring Provider Active Reservoir Engineering Consultant Relationship Specialty Start Date End Date Jeff Nguyen MD [address] [facility] [address] [place] [address] PCP - General 03/11/14 Team Status: Active [...] October 11, 2024 End: October 12, 2024 Reservoir Engineering Consultant Relationship Specialty Start Date End Date Marco Melvin [address] [place] [address] [place] [address] PCP - General 10/12/24 Team Status: Inactive [...] sedation for opioid reversal - MUST notify auto phone installer provider immediately after first dose, may give [...] sedation for opioid reversal - MUST notify auto phone installer provider immediately after first dose, may give [...] BE BASED ON THE PRIMARY CLINICAL RECORDS. [employer] [facility]. provides no warranty or guarantee of the accuracy or completeness of information in this document.
[2025-06-27 18:52] LABS: Hematocrit 43.9 % (37-47); Hemoglobin 14.6 g/dL (12.0-15.0); Immature Granulocytes Count 0.090 X10^3/uL (0.0-0.0); Mean Corp Hgb Conc 33.3 g/dL (32-36); Mean Corpuscular Volume 90.0 fL (81-99); Mean Platelet Vol. 8.8 fl (6.2-12.0); NRBC Flagged by Analyzer 0 % (0-5); Platelet Count 379 K/mm3 (150-450); RBC Distribution Width CV 13.8 % (11.6-14.6); RBC Distribution Width SD 44.7 fl (35.1-43.9); Red Blood Count 4.88 M/mm3 (4.2-5.4); White Blood Count 14.7 K/mm3 (4.4-11.0)
[2025-06-27 19:08] VITALS: BP 130/96; PULSE 105; RESP 16; O2SAT 98
--- NOTE | 2025-06-27 19:26 | ED.VIS.FEGU ---
HPI HPI - Female History of Present Illness Chief Complaint: Detail of Chief Complaint: She was told to come to the ER to rule out ectopic Informant: patient and spouse/S.O. Pain Pain: Negative for Pelvic Pain, Vulvar Pain or Vaginal Pain Bleeding Issue: Negative for Vaginal bleeding, Passing clots or Passing tissue Associated Symptoms Associated Symptoms: Positive for Frequency and Missed Period; Negative for Dysuria, Urgency or Hematuria Last known menstrual period: Patient is 6.5 weeks by dates Test: Positive Sexually: Positive for Active and - (Infertility patient, clinic located in [place]) P: 1 Ab: 3 Narrative Narrative: Patient is a 29-year-old infertility patient who was sent in by her infertility expert because she had a quant of 2254 with that ultrasound that revealed no intrauterine . She was told she needs to be evaluated for ectopic . She denies vaginal bleeding. She denies pelvic or vaginal discomfort. She denies lightheadedness with standing. She denies pain referred to her shoulders. She has no symptoms other than frequency. Patient quants were predominantly obtained through [facility]. And they have been going up slightly. Today's quant was 2254 and is up approximately 8000 units compared to most recent level obtained at [facility]. She had an ultrasound on this morning at around noon that revealed no abnormality i.e. no mass or irregularity of the fallopian tubes, ovaries and no IUP. Prior similar symptoms: Yes Recent Illness/Hospitalization: No [facility] Medical History Abnormal uterine bleeding Conceived by in vitro fertilization Supervision of high-risk Decreased movement False labor before 37 completed weeks of gestation premature rupture of membranes (PPROM) with unknown onset of labor Genetic testing of female Wears contact lenses Anxiety Alcohol use Heartburn Vapes nicotine containing substance Endometrial polyp Abnormal uterine bleeding (AUB) Home Medications ?Medication ?Instructions ?Recorded ?Last Taken ?Type omeprazole 20 mg tablet,delayed 40 mg PO DAILY 10/03/23 02/16/24 08:00 History release 20 mg cholecalciferol (vitamin D3) 50 2,000 unit PO DAILY 10/11/24 Unknown History mcg (2,000 unit) capsule (D3-2000) metformin 750 mg tablet,extended 750 mg PO DAILY 10/11/24 Unknown History release 24 hr prednisone 10 mg tablet 10 mg PO BID 10/11/24 Unknown History multivitamin no.47-iron fum 27 1 cap PO DAILY #90 caps 01/14/25 Unknown Rx mg-folate no.1 1 mg-dha 300 mg capsule (PNV-DHA) enoxaparin 30 mg/0.3 mL 30 mg subcut Q24H 03/06/25 Unknown History subcutaneous syringe (Lovenox) loratadine 10 mg tablet (Claritin) 10 mg PO QDAY 03/06/25 Unknown History naltrexone 1.5 mg capsule 3 mg PO .once a day 03/06/25 Unknown History estradiol 2 mg tablet 2 mg PO TID 06/27/25 Unknown History levothyroxine 25 mcg tablet 25 mcg PO DAILY 06/27/25 Unknown History (Euthyrox) progesterone 50 mg/mL 50 mg IM 06/27/25 Unknown History intramuscular oil progesterone micronized 200 mg 200 mg PO QHS 06/27/25 Unknown History capsule (Prometrium) tacrolimus 1 mg capsule, 1 mg PO TID 06/27/25 Unknown History immediate-release (Prograf) Allergy/AdvReac Type Severity Reaction Status Date / Time Latex, Natural Rubber Allergy Intermediate Other Verified 06/27/25 16:55 azithromycin (From Zithromax) Allergy JOHN Verified 06/27/25 16:55 VIJI'S SYNDROME venlafaxine Allergy Other Verified 06/27/25 16:55 Family History Mother Diabetes Uncle Diabetes Grandmother Diabetes Surgical History [place] teeth extracted History of hysteroscopy Status post laparoscopy S/P D&C (status post dilation and curettage) Hx of lumpectomy History of tonsillectomy and adenoidectomy Social History adopted: No household members: spouse number of children: 1 current occupational status: employed current occupation: [employer] current occupational exposures/hazards: No pets and animals: Yes (Avoid litterbox) pets and animals: cat(s) and dog(s) history of recent travel: Yes ([facility]) out of state: Yes out of country: No sexually active: Yes Smoking Status: Never smoker Electronic Cigarette Use: with nicotine alcohol intake: never substance use type: does not use well-balanced diet: daily or most days caffeine: No eating out: 1-3 times/week during the past year weight has: increased > 10 lbs what type of physical activity do you participate in: none jessica/oriental orthodox: Confucianist seatbelt use: always do you feel safe at home: Yes additional social history: - Andrea Woods ROS ROS ED Constitutional Constitutional ED: Denies chills, fever(s) or subjective Eyes Eyes: Denies blurry vision or change in vision ENT ENT ED: Denies ear pain, rhinorrhea or sore throat Cardiovascular Cardiovascular: Denies chest pain or palpitations Respiratory/Chest Respiratory/Chest: Denies dyspnea or dyspnea on exertion Gastrointestinal Gastrointestinal: Denies abdominal pain Genitourinary Genitourinary ED: Reports urinary frequency; Denies dysuria or hematuria Musculoskeletal Musculoskeletal: Denies arthralgias, myalgias or neck pain Integumentary Denies rash EXAM Physical Exam Const Vital Signs: 06/27/25 16:53 06/27/25 19:08 Temperature 97.3 F L Temperature Source Temporal Pulse Rate 120 H 105 H Respiratory Rate 16 16 Blood Pressure 131/89 H 130/96 H Blood Pressure Mean 103 107 Pulse Ox 97 98 Oxygen Delivery Method Room Air Room Air Positive well nourished and well developed General Appearance ED: well developed and NAD; Negative for pallor HEENT Reports moist mucous membranes HEENT Narrative: Head is atraumatic and normocephalic Eyes PERRL and EOMs intact bilaterally General Eye ED: Negative for pale conjunctiva or scleral icterus Resp normal respiratory effort Cardio regular rate and regular rhythm GI normal to inspection, nondistended, normoactive bowel sounds, soft to palpation, non-tender, non-distended and no masses Back/Spine no CVA tenderness Extremity normal to inspection and full ROM Neuro oriented x3 and CN's II-XII intact bilaterally Sensorium / Orientation: alert Psych Mood & Affect: anxious Skin no rashes or lesions noted and no wounds General Skin Exam: Negative for jaundice or pallor MDM MDM MDM Narrative Medical decision making narrative: CBC was obtained assess H&H since 1 was not done today. Quant was not repeated since it was done today today. I was unaware that her ultrasound was done as well. Figure Refinisher And Repairer called to see if I wanted to repeat this. This was canceled. Case was discussed with Dr. Julianna Boothe who is on-call for [facility]. After informing her of patient's lab results, ultrasound which she herself reviewed and agree reveals no I IUP or any abnormality in the fallopian tubes or ovaries that the plan would be discharged to home with follow-up on Monday through the emergency room to have a repeat hCG and transvaginal ultrasound. She was instructed to return if she has vaginal bleeding, pelvic pain, cramping, lightheadedness or pain referred to her shoulder. Lab Data Attestation: I reviewed the patient's lab results. Lab results narrative: White count is slightly elevated which is not unexpected since she is . This is nonspecific specific and not significant. Labs: Laboratory Results - last 24 hr 06/27/25 18:44 WBC 14.7 H RBC 4.88 Hgb 14.6 Hct 43.9 MCV 90.0 MCH 29.9 MCHC 33.3 RDW Std Deviation 44.7 H RDW Coeff of Lizbet 13.8 Plt Count 379 MPV 8.8 Immature Gran % (Auto) 0.600 Neut % (Auto) 69.0 Lymph % (Auto) 24.4 [place] % (Auto) 5.6 Eos % (Auto) 0.1 Baso % (Auto) 0.3 Absolute Neuts (auto) 10.1 H Absolute Lymphs (auto) 3.58 Nucleated RBC % 0 Management Discussion w/another healthcare provider: Ingot Car Operator (Documented elsewhere in the chart with respect to conversation with Dr. Julianna Franco) Discharge Plan Triage Chief Complaint: ED Provider: Jarrell Marshall Dx/Rx/DC Orders Clinical Impression: First trimester , Infertility Instructions: : Weeks 6 to 10 Prescriptions: No Action omeprazole 20 mg tablet,delayed release (DR/EC) 40 mg PO DAILY naltrexone 1.5 mg capsule 3 mg PO .once a day loratadine [Claritin] 10 mg tablet 10 mg PO QDAY enoxaparin [Lovenox] 30 mg/0.3 mL syringe 30 mg subcut Q24H cholecalciferol (vitamin D3) [D3-2000] 50 mcg (2,000 unit) capsule 2,000 unit PO DAILY prednisone 10 mg tablet 10 mg PO BID metformin 750 mg tablet extended release 24 hr 750 mg PO DAILY levothyroxine [Euthyrox] 25 mcg tablet 25 mcg PO DAILY tacrolimus [Prograf] 1 mg capsule 1 mg PO TID estradiol 2 mg tablet 2 mg PO TID progesterone micronized [Prometrium] 200 mg capsule 200 mg PO QHS progesterone 50 mg/mL oil 50 mg IM PNV-DHA 27 mg iron-1 mg -300 mg capsule 1 cap PO DAILY Qty: 90 3RF Primary Care Provider: Anan Zepeda Referrals: Anna Zepeda PA [Primary Care Provider, Family Practice] Activity Restrictions/Additional Instructions: 1. Return to the emergency room on Monday morning to have a repeat hCG and transvaginal ultrasound. 2. If you develop vaginal bleeding, pelvic or uterine cramping, lightheadedness with standing or pain referred your shoulders return to the emergency department immediately. Print Language: Jamaican Disposition Disposition: Home, Self Care
[2025-06-27 19:39] VITALS: BP 123/95; PULSE 100; RESP 16; TEMP 36.8; O2SAT 97
== END 2025-06-27 19:49 | disposition home or self-care (01) ==
PROVIDERS: Emergency Provider Emergency Medicine; Visit Provider Emergency Medicine
DX: O99.891 Other specified diseases and conditions complicating pregnancy (principal); N97.9 Female infertility, unspecified; O99.341 Other mental disorders complicating pregnancy, first trimester; F41.9 Anxiety disorder, unspecified; Z3A.00 Weeks of gestation of pregnancy not specified; Z87.59 Personal history of other complications of pregnancy, childbirth and the puerperium; Z79.899 Other long term (current) drug therapy
CPT/HCPCS: 85025; 99283; A4216

== ENCOUNTER → 2025-06-27 | Outpatient (CLI) | payer BC, SELFPAY ==
--- NOTE | 2025-06-27 09:03 | US_ITS ---
PROCEDURE: TRANSVAGINAL W/PREG US 06/27/2025 REASON FOR EXAM: PREG WITH HX OF INF TECHNIQUE: Procedure Code: USTVAGP Modality: US Procedure: TRANSVAGINAL W/PREG US COMPARISON: 06/23/2025 FINDINGS Uterus measures 8.4 x 4.3 x 4.9 cm. No sonographic evidence of intra or extra uterine gestation. Endometrium is normal at 9 mm. There is a 1.3 cm fibroid. Right ovary measures 2.8 x 2.6 x 2.3 cm. No suspicious solid or cystic mass, normal color Doppler flow Left ovary measures 2.9 x 2.1 x 2.1 cm. No suspicious solid or cystic mass, normal color Doppler flow No free fluid US/Transvaginal w/Preg US IMPRESSION: No sonographic evidence of intra or extra uterine gestation Small uterine fibroid Sonographically normal ovaries Reading Location: [id number]
--- OUTSIDE RECORDS SUMMARY | 2025-06-27 09:21 | XMS RPT_ITS | CCD ---
Author Organization [facility] Care Team Providers Care Lodging Facilities Attendant Name Role Phone Zbigniew Matta MD Primary Care Provider CHERYL Melvin Primary Care Provider CHERYL Melvin Referring Provider Dr. Julianna Newman Attending Provider [phone] Dr. Julianna Newman Referring Provider [phone] Dr. Julianna Newman Other Provider CHERYL Melvin Primary Care Provider Dr. Julianna Newman Attending Provider [phone] CHERYL Melvin Referring Provider Marco Melvin PA-C Unavailable Gastroenterology Provider Unavailable UnavaFederico Parra PA-C Unavailable Chelsea Paez MA Unavailable Unavailable Maryellen Reyes LPN Unavailable Unavailable Natalia DUENAS, Nandini Corona Unavailable Unavaila janusz Mar LPN, Alysia Unavailable Unavailable Minesh AMEZQUITA, Chin Unavailable Unavailable Unavailable Unavailable CHERYL Melvin Primary Care Provider CHERYL Melvin Referring Provider Dr. Julianna Newman Attending Provider [phone] Dr. Venessa Newby Attending Provider [phone] Juancarlos CENTRIFUGE SEPARATOR OPERATOR, AMY Benz Attending Provider [phone] Natalie Hopkins MA Unavailable Unavailable Unavailable Primary Care Provider UnavailJeff Stevens MD Primary Care Provider [phone] LUCILA HO Attending Unavailable BAY, JEFF Primary Care Unavailable ZEVEVJULIANNA ROONEY Referring Unavailab le TERESA, JULIANNA Attending Unavailable TERESA, JULIANNA Referring Unavailable BAY, JEFF Primary Care Unavailable BAY, JEFF Primary Care Unavailable TERESA, JULIANNA Attending Unavailable TERESA, JULIANNA Referring Unavailable BAY, JEFF Primary Care Unavailable BAY, JEFF Primary Care Unavailable HLAVATY, JADA Attending Unavailable HLAVATY, JADA Referring Unavailable MANCIA, SAUMYA Attending Unavailable ZEVEVJULIANNA ROONEY R Referring Unavailab le BAY, JEFF Primary Care Unavailable LUCILA HO Attending Unavailable LUCILA HO Referring Unavailable BAY, JEFF Primary Care Unavailable JUANCARLOSDENNY S Referring Unavailable BAY, JEFF Primary Care Unavailable YOANNA SIMENTAL Attending Unavailable Marco Morales Primary Care Provider Marco Morales Referring Provider [phone] Adrián CENTRIFUGE SEPARATOR OPERATOR-CLilly Attending Provider Adrián CENTRIFUGE SEPARATOR OPERATOR-CLilly Referring Provider Dr. Julianna Newman DO Attending Provider Dr. Julianna Newman DO Referring Provider Dr. Yola Schaffer MD Other Provider [phone] Fern Marroquin DO Emergency Provider Duane Marco Primary Care Provider BARAK COVARRUBIAS Admitting Unavailable BARAK COVARRUBIAS Attending Unavailable NONE, PCP Referring Unavailable MELVIN, MARCO Primary Care Unavailable GAVINO, SAUMYA Admitting Unavailable REKHA ROD Consulting Unavailable CHRISTIANO AU Attending Unavailable Sadiq GATES, Dr. Doty Emergency Provider [phone] Duane LUNA, Marco Primary Care Provider Marco Morales Referring Provider Dr. Julianna Newman DO Attending Provider Melvin PA, Marco Primary Care Physician Dr. Julianna Newman DO Attending Physician Sarbjit GATES, Dr. Carson Attending Physician Sarbjit GATES, Dr. Carson Referring Provider YOLA SCHAFFER Attending Unavailable YOLA SCHAFFER Primary Care Unavailable YOLA SCHAFFER Admitting Unavailable MELVIN, MARCO PAC Consulting Unavailable PROVIDER, UNKNOWN Consulting Unavailable Melvin, Marco Primary Care Unavailable Melvin, Marco Referring Unavailable Julianna Newman Attending Unavailabl e Kiltz, Yola Referring Unavailable Kiltz, Yola Attending Unavailable Melvin, Marco Primary Care Unavailable Melvin, Marco Primary Care Unavailable Soren Babcock Attending Unavailable Melvin, Marco Primary Care Unavailable Lilly Sampson Attending Unavailable Lilly Sampson Referring Unavailable Kilantonia, Yola Referring Unavailable Melvin, Marco Primary Care Unavailable Sarbjit, Yola Attending Unavailable Melvin, Marco Primary Care Unavailable Kilantonia, Yola Referring Unavailable Kilantonia, Yola Attending Unavailable Yola Schaffer Consulting Unavailable Melvin, Marco Primary Care Unavailable Julianna Newman Attending Unavailabl e Julianna Newman Referring Unavailabl e Ungur, Remus Attending Unavailable Melvin, Marco Primary Care Unavailable Melvin, Marco Primary Care Unavailable Fortune CENTRIFUGE SEPARATOR OPERATOR, Angelica Attending Unavailable Fortune CENTRIFUGE SEPARATOR OPERATOR, Angelica Referring Unavailable Kiltz, Yola Referring Unavailable Melvin, Marco Primary Care Unavailable Kilantonia, Yola Attending Unavailable Melvin, Marco Primary Care Unavailable Melvin, Marco Referring Unavailable Lilly Sampson Attending Unavailable JOHN NAYLOR MD Attending Unavailable [...] MELVIN PA-C, MARCO J Primary Care Unavailable Allergies Allergy Classification Reported Allergen(s) Allergy Type Date of Onset Reaction(s) Facility (20 sources) Azithromycin; Translations: [AZITHROMYCIN] Drug Allergy 03-22-200 2 Rash, Other, Anaphylaxis, Blistering Rash, Hives, Other (See Comments), Shortness Of Breath, Swelling [facility] Work Phone: (20 sources) venlafaxine; Translations: [VENLAFAXINE] Drug Allergy 9 Other: See Comments, Other (See Comments) [facility] Work Phone: (20 sources) Zithromax *[facility]CROLIDES* [facility] (9 sources) natural latex rubber Allergy to substance 4 Other [facility] Comment on above: Blisters with Bandai d use (5 sources) Latex; Translations: [LATEX] Propensity to adverse reactions 4 [facility] (1 source) Latex Propensity to adverse reactions 4 [facility] (1 source) Azithromycin Drug Allergy 5 [facility] Repository (1 source) natural latex rubber Drug allergy (disorder) 5 [facility] Repository (1 source) venlafaxine Drug Allergy 5 [facility] Repository Medications Current Medications Medication Drug Class(es) Dates Sig (Normalized) Sig (Original) aspirin 81 mg oral tablet (19 sources) Platelet Aggregation Inhibitor, Nonsteroidal Anti-inflammatory Drug Start: 03-06-2025 take 1 tablet by mouth once daily Start: 09-08-2023 End: 10-03-2023 take 1 tablet by mouth once daily Aspirin 81 mg tablet,delayed release (DR/EC) Discontinued 81 mg PO DAILY September 08, 2023 1:00am October 03, 2023 11:21am cholecalciferol 0.05 mg oral capsule (15 sources) Vitamin D Start: 10-11-2024 Start: 10-03-2023 End: 11-07-2023 take 1 capsule by mouth once daily Cholecalciferol (Vitamin D3) 50 mcg (2,000 unit) capsule Discontinued 50 ug PO DAILY October 03, 2023 12:00am November 07, 2023 8:43am 0.3 ml enoxaparin sodium 100 mg/ml prefilled syringe (20 sources) Low Molecular Weight Heparin Start: 03-06-2025 Start: 03-15-2024 End: 03-17-2024 inject 40 mg [...] 03-06-2025 take 1 tablet by mouth once da sharif Start: 11-21-2023 End: 06-19-2024 take 1 tablet [...] (Stop taking at discharge) 24 hr metFORMIN hydrochlorid e 750 mg extended release oral tablet (20 sources) Biguanide Start: 10-11-2024 take 1 tablet by isabel th once daily Start: 10-03-2023 End: 11-07-2023 take 2 tablets [...] 2023 1:00am October 03, 2023 11:24am Multivit 23-Abic-Fnujyt 1-Dh a (Pnv-Dha) 27 mg iron-1 mg -300 mg capsule (20 sources) Start: 01-14-2025 Start: 01-14-2025 Multivit 47-Ir on-Folate 1-Dha (Pnv-Dha) 27 mg iron-1 mg -300 mg capsule Active 1 NMA PO DAILY 90 January 14, 2025 10:44am Start: 01-14-2025 End: 01-14-2025 Multivit 26-Uewb-Tuijzw 1-Dh a (Pnv-Dha) 27 mg iron-1 mg -300 mg capsule Discontinued 1 NMA PO DAILY 90 January 14, 2025 10:21am January 14, 2025 10:45am Start: 12-15-2023 End: 01-14-2025 Multivit 05-Awgv-Uuphwp 1-Dh a (Pnv-Dha) 27 mg iron-1 mg -300 mg capsule Discontinued 1 NMA PO DAILY 30 December 15, 2023 12:41pm January 14, 2025 10:21am Start: 12-15-2023 Multivit 47-Ir on-Folate 1-Dha (Pnv-Dha) 27 mg iron-1 mg -300 mg capsule Active 1 NMA PO DAILY December 15, 2023 12:41pm Start: 10-03-2023 End: 12-15-2023 Multivit 74-Ufrd-Nfglzm 1-Dh a (Pnv-Dha) 27 mg iron-1 mg -300 mg capsule Discontinued NMA PO October 03, 2023 12:00am December 15, 2023 12:42pm Start: 10-03-2023 Multivit 47-Ir on-Folate 1-Dha (Pnv-Dha) 27 mg iron-1 mg -300 mg capsule Active CAP PO October 03, 2023 12:00am Multivit Fcp-Tviy-Yf-Herb 186 (Hair, Skin And Nails Advanced) 3.3 mg iron-25 mcg Tablet (1 source) Start: 08-20-2021 Multivit Lpl-Rnhu-Ll-Herb 186 (Hair, Skin And Nails Advanced) 3.3 mg iron-25 mcg Tablet Active 1 TABLET PO DAILY August 20, 2021 1:00am Naltrexone (20 sources) Opioid Antagonist Start: 03-06-2025 take 1 capsule by mouth once daily Start: 03-06-2025 take 1 capsule by mo [facility] [place] once daily Naltrexone 1.5 mg capsule Active [...] Start: 10-03-2023 take 1 tablet by isabel th once daily Start: 10-14-2022 End: 09-08-2023 take 1 capsule [...] 10-11-2024 take 1 tablet by mouth twice d aily Start: 10-03-2023 End: 11-07-2023 take 1 tablet [...] mcg ; (28 mg iron- 800 mcg) QOK-BLKTLHXE-DQQL-FA PO (1 source) Start: 08-03-2023 BMA-DGXFIJKR-SHRJ-FA PO daily 08/03/2023 Active Completed/Discontinued Medications Medication [...] Q4H as needed for pain 10 3 December 02, 2022 September 08, 2023 2:16pm Status post laparoscopy Other specified postprocedural states Start: 12-02-2022 End: 09-08-2023 take 1 tablet by mouth every four hours Hydrocodone-Acetaminophen Discontinued 1 TABLET PO Q4H 10 December 02, 2022 September 08, 2023 2:16pm [...] oral tablet (20 sources) Penicillin-class Antibacterial Start: End: take 1 tablet by mouth twice [...] taken as needed. This order discontinued per -Span. Start: 02-07-2022 End: 04-26-2022 take 1 capsule [...] 1415, For 1 dose Blood-Glucose Meter misc (6 sources) Start: 02-26-2024 End: 03-06-2025 Blood-Glucose Meter [...] 2023 2:15pm cabergoline 0.5 mg oral tablet (8 sources) Ergot Derivative Start: 10-11-2024 End: 03-06-2025 [...] at 0045 cephalexin 500 mg oral capsule (10 sources) Cephalosporin Antibacterial Start: 10-11-2024 End: 03-06-2025 [...] 0 936, For 1 dose, Yara Chinchilla: sandhyat override 1 ml diphenhydrAMINE hydrochloride 50 mg/ml cartridge (20 sources) Histamine-1 Receptor Antagonist Start: 03-14-2024 End: [...] 04/14/2024 Active estradiol 2 mg oral tablet (15 sources) Estrogen Start: 09-08-2023 End: 11-07-2023 take 1 tablet by mouth twice daily Estradiol (Estrace) 2 mg tablet Discontinued 2 mg PO TWICE A DAY September 08, 2023 1:00am November 07, 2023 8:43am famotidine 20 mg oral tablet (19 sources) Histamine-2 Receptor Antagonist Start: 10-12-2024 End: [...] Glucose Scanning Reade r (Freestyle Lexi 2 Richey) misc (6 sources) Start: 02-28-2024 End: 03-06-2025 Flash Glucose Scanning Reade r (Freestyle Lexi 2 Richey) misc Discontinued 0 .Route 1 0 February 28, 2024 12:00am March 06, 2025 2:43pm As directed Start: 02-28-2024 Flash Glucose Scanning Richey (Freestyle Lexi 2 Richey) misc Active 0 .Route 1 February 28, 2024 12:00am As directed Flash Glucose Sensor (Freest yle Lexi 2 Sensor) kit (6 sources) Start: 02-28-2024 End: 03-06-2025 Flash Glucose [...] cycle Start: 04-13-2020 take 2 tablets by [facility] once daily letrozole (FEMARA) 2.5 mg tablet Take 2 tablets by mouth once daily. 10 tablet 2 04/13/2020 Active Comment on above: Take 2 tablets by [facility] once daily. 500 ml magnesium sulfate 40 [...] mg medroxyPROGESTERone acetate 5 mg oral tablet (20 sources) Progestin Start: 12-14-2022 End: 09-08-2023 Medroxyprogesterone [...] / nitrofurantoin, monohydrate 75 mg oral capsule (8 sources) Nitrofuran Antibacterial Start: 03-06-2024 End: 03-13-2024 take 1 capsule by mouth twice daily at mealtime Nitrofurantoin Monohyd/M-Cryst (Macrobid) 100 mg capsule Discontinued 100 mg PO TWICE A DAY 14 7 0 March 06, 2024 12:00am March 12, 2024 12:00am March 13, 2024 12:04am must administer with a meal/food ondansetron 4 mg disintegrating oral tablet (6 sources) Serotonin-3 Receptor Antagonist Start: 02-02-2024 End: [...] over 2 Minutes, Once, On 03/08/24 at 2014, For 1 dose, Give only if unable to tolerate po. phenazopyridine hydrochloride 200 mg delayed release oral tablet (10 sources) Start: 10-12-2024 End: 10-13-2024 take 200 mg by mouth twice daily 200 mg, Oral, 2 times daily, First dose on 10/12/24 at 0900 Start: 10-11-2024 End: 03-06-2025 take 1 tablet by mouth twice daily Phenazopyridine (Pyridium) 200 mg tablet Discontinued 200 mg PO TWICE A DAY October 11, 2024 12:00am March 06, 2025 2:43pm Pnv No.63-Iron,Bywlhdol-Th-Z mercedes (16 sources) Start: 12-14-2022 End: 09-08-2023 take 1 capsule by mouth once daily Pnv No.63-Iron,Telxlrva-Qg-Rza Discontinued 1 CAP PO DAILY December 14, 2022 12:00am September 08, 2023 2:16pm Start: 12-14-2022 take 1 capsule by [facility] once daily Pnv No.63-Iron,Ykbxjcty-My-Idi Active 1 CAP PO DAILY December 13, 2022 11:00pm Start: 12-14-2022 take 1 capsule by mo uth once daily Pnv No.63-Iron,Hjebyjyq-Nj-Llk Active 1 CAP PO DAILY December 14, 2022 12:00am Pnv No.63-Iron,Malmftsm-Nu-P mercedes 27 mg iron- 800 mcg-200 mg capsule (6 sources) Start: 12-14-2022 End: 09-08-2023 Pnv No.63-Iron,Fkzcnlwo-Tb-T mercedes 27 mg iron- 800 mcg-200 mg capsule Discontinued 1 NMA PO DAILY 90 December 14, 2022 12:00am September 08, 2023 2:16pm Start: 12-14-2022 End: 09-08-2023 Pnv No.63-Iron,Mggfeuur-Ka-L mercedes 27 mg iron- 800 mcg-200 mg capsule Discontinued 1 NMA PO DAILY December 14, 2022 12:00am September 08, 2023 2:16pm PNV no.95/ferrous fum/folic ac ( ORAL) (1 source) PNV no.95/ferrou s fum/folic ac ( ORAL) Take by mouth. 0 Active Comment on above: Take by mouth. Xyx803-Pfzj-Ze-S2-Lfx-Ysy-P magy [Pnv No.151-Iron 27 Mg-Folic 800 Mcg-Omega3 260 Cl-Avw-Huv-Fish Capsule] (Pnv No.151-Iron 27 Mg-Folic 800 Mcg-Omega3 260 ) 27 mg iron-800 mcg-260 mg capsule (6 sources) Start: 10-11-2024 End: 01-14-2025 Fzb686-Kmpj-Tk-A4-Svf-Qat-H magy [Pnv No.151-Iron 27 Mg-Folic 800 Mcg-Omega3 260 Mw-Puq-Hie-Fish Capsule] (Pnv No.151-Iron 27 Mg-Folic 800 Mcg-Omega3 260 ) 27 mg iron-800 mcg-260 mg capsule Discontinued 1 NMA PO DAILY October 11, 2024 12:00am January 14, 2025 10:21am Start: 10-11-2024 Ffn585-Izwn-Ad -E2-Ohq-Tat-Fish [Pnv No.151-Iron 27 Mg-Folic 800 Mcg-Omega3 260 Nq-Qsj-Aky-Fish Capsule] (Pnv No.151-Iron 27 Mg-Folic 800 Mcg-Omega3 260 ) 27 mg iron-800 mcg-260 mg capsule Active 1 NMA PO DAILY October 11, 2024 12:00am polyethylene glycol 3350 18623 mg powder for oral solution (2 sources) Osmotic Laxative Start: 10-12-2024 End: 10-13-2024 take 17 g by mouth every twenty-four hours as needed for constipation polyethylene glycol 3350 874662 mg / potassium chloride 2970 mg / sodium bicarbonate 6740 mg / sodium chloride 5860 mg / sodium sulfate 81819 mg powder for oral solution (5 sources) Osmotic Laxative Start: 10-14-2024 End: 03-06-2025 Peg 3350-Electrolytes (Golytely) 236-22.74-6.74 -5.86 gram recon soln Discontinued 240 mL PO EVERY 10 MINUTES NEEDED 4000 0 October 14, 2024 12:00am March 06, 2025 2:43pm until fecal effluent is clear Vit,Kalpesh 76-Cfby-Vefdd (Prenatabs Fa) 29-1 mg Tablet (4 sources) Start: 08-20-2021 End: 10-14-2022 Vit,Kalpesh 25-Gend-Ecjsy (Prenatabs Fa) 29-1 mg Tablet Discontinued 1 {tbl} PO DAILY August 20, 2021 1:00am October 14, 2022 2:49pm Vit,Mnki92-Sybs-Oaj ic (Prenatabs Fa) 29-1 mg Tablet (20 sources) Start: 08-20-2021 End: 10-14-2022 Vit,Bwzz04-Swxx-Lw lic (Prenatabs Fa) 29-1 mg Tablet Discontinued 1 {tbl} PO DAILY August 20, 2021 1:00am October 14, 2022 2:49pm Start: 08-20-2021 End: 10-14-2022 take 1 tablet by mouth once daily Vit,Wwyt35-Dhpf-Uwsfu (Prenatab s Fa) 29-1 mg Tablet Discontinued 1 TABLET PO DAILY August 20, 2021 12:00am October 14, 2022 1:49pm Start: 08-20-2021 End: 10-14-2022 take 1 tablet by mouth once daily Vit,Vvky98-Drze-Arsol (Prenatab s Fa) 29-1 mg Tablet Discontinued 1 TABLET PO DAILY August 20, 2021 1:00am October 14, 2022 2:49pm Start: 08-20-2021 take 1 tablet by isabel th once daily Vit,Dbsj91-Egrz-Jyolx (Prenatab s Fa) 29-1 mg Tablet Active [...] on above: stable Benign neoplasm of uterus (6 sources) Uterine leiomyoma; Translations: [Leiomyoma of uterus, unspecified] 07-17-2024 Episodic Chronic obstructive pulmonary disease and bronchiectasis (20 sources) Bronchitis; Translations: [Bronchitis, not specified as acute or chronic] 08-05-2022 Episodic Complications of surgical procedures or medical care (20 sources) Ovarian hyperstimulation syndrome; 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] Onset: 5 10-11-2024 Episodic Comment on above: patient at [facility] for paracentesis- 10/11/24-10/13/24 Contraceptive and procreative management (2 sources) Encounter for other procreative investigation and testing; Translations: [Encounter for fertility testing] Onset: Episodic Diabetes or abnormal glucose tolerance complicating ; childbirth; or the puerperium (8 sources) History of gestational diabetes mellitus; Translations: [Personal history of gestational diabetes] 04-10-2024 Episodic Diseases of white blood cells (6 sources) Leukocytosis; Translations: [Elevated white blood cell count, unspecified] 10-11-2024 Chronic Early or threatened labor (6 sources) False labor before 37 completed weeks of gestation; Translations: [False labor before 37 completed weeks of gestation, unspecified trimester] 03-19-2024 Episodic Esophageal disorders (20 sources) Gastroesophageal reflux disease; Translations: [Gastro-esophageal reflux disease without esophagitis] 02-15-2023 Chronic Genitourinary symptoms and ill-defined conditions (12 sources) Blood in urine; Translations: [Hematuria, unspecified] 03-01-2024 Episodic Hemorrhage during ; abruptio placenta; placenta previa (17 sources) Threatened miscarriage in first trimester; Translations: [Threatened ] Onset: 09-19-2023 Episodic Inflammation; infection of eye (except that caused by tuberculosis or sexually transmitteddisease) (20 sources) Conjunctivitis of right eye; Translations: [Unspecified conjunctivitis] 08-05-2022 Episodic Menstrual disorders (8 sources) Amenorrhea; Translations: [Amenorrhea, unspecified] 06-19-2024 Chronic Noninfectious gastroenteritis (20 sources) Chronic diarrhea of unknown origin ; Translations: [Noninfective gastroenteritis and colitis, unspecified] 08-05-2022 Episodic Other complications of (9 sources) High risk ; Translations: [Supervision of high risk , unspecified, unspecified trimester] 10-03-2023 Episodic Comment on above: [id number], GERALD 4per CNY, Rene Other complications of (3 sources) Supervision of high risk , unspecified, unspecified trimester; Translations: [Supervision of unspecified high-risk ] 10-12-2023 Episodic Other complications of (6 sources) Reduced movement; Translations: [Decreased movements, unspecified trimester, not applicable or unspecified] 03-19-2024 Episodic Comment on above: over 30 movements wh ile on monitor Other complications of (1 source) Inappropriate change in quantitative human chorionic gonadotropin (hCG) in early ; Translations: [Inappropriate change in quantitative human chorionic gonadotropin (hCG) in early ] Onset: Episodic Other connective tissue disease (8 sources) Pelvic floor dysfunction; Translations: [Other specified disorders of muscle] 06-19-2024 Episodic Other endocrine disorders (10 sources) Polycystic ovary syndrome; Translations: [Polycystic ovarian [...] tract] 11-09-2022 Chronic Other female genital disorders (8 sources) Vaginal discharge; Translations: [Other specified noninflammatory disorders of vagina] 06-19-2024 Episodic Other gastrointestinal disorders (20 sources) Diarrhea; Translations: [Diarrhea, unspecified] 02-07-2020 Episodic Other gastrointestinal disorders (5 sources) Constipation; Translations: [Constipation, unspecified] 10-14-2024 Episodic Other and delivery including normal (20 sources) Intrauterine ; Translations: [Encounter for supervision of normal , unspecified, unspecified trimester] Onset: 5 09-19-2023 Episodic Comment on above: NIPT low risk, viktor er testing completed prior to IVF; declines AFP Other screening for suspected conditions (not mental disorders or infectious disease) (20 sources) Decreased thyroid stimulating hormone level; Translations: [Other specified abnormal findings of blood chemistry] Onset: 5 02-15-2023 Episodic Comment on above: 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, 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/FOB negative Other upper respiratory infections (20 sources) Sore throat symptom; Translations: [Acute pharyngitis, unspecified] 05-13-2021 Episodic Polyhydramnios and other problems of amniotic cavity (16 sources) Anhydramnios; Translations: [Oligohydramnios, third trimester, not applicable or unspecified] Onset: 03-15-2024 Episodic Residual codes; unclassified (20 sources) History of laparoscopy; Translations: [Other specified postprocedural states] 12-02-2022 Episodic Residual codes; unclassified (7 sources) Other specified postprocedural states; Translations: [Other postprocedural status] 12-14-2022 Episodic Residual codes; unclassified (9 sources) Conceived by in vitro fertilization; Translations: [Other specified health status] 10-03-2023 Episodic Comment on above: echo 22-24 wk/ordere jose e has on naltrexone this - stop 37-38 weeksecho at 22-24 weeksmonthly growth scansnsts starting 36 weeks Residual codes; unclassified (3 sources) Other specified health status; Translations: [Other specified conditions influencing health status] 10-12-2023 Episodic Residual codes; unclassified (6 sources) Infertile 11-21-2023 Episodic Comment on above: [...] Problem Date Documented Date Episodic/Chronic Abdominal pain (20 sources) Pain in pelvis; Translations: [Abdominal pain] Onset: 10-18-2024 Episodic Other and unspecified benign neoplasm (1 source) Lipoma (clinical); Translations: [Benign lipomatous neoplasm, unspecified] Onset: 12-09-2013 12-09-2013 Episodic Other female genital disorders (1 source) [...] night from coughing ALONSO 04/26/22 BISHNU mack [facility] 05-12-2022 Unclassified (20 sources) Cold Symptoms - [...] an individual with similar symptoms (works at [employer]), but has not been exposed to an individual with strep or secondhand smoke. Medical history includes tonsillectomy, but patient denies history of seasonal allergies, recurrent sinusitis, recurrent strep pharyngitis, asthma or recurrent ear infections. Note for Upper respiratory infection: pt did an at home covid test yesterday -- negativeshe did have tessalon perles on hand from [facility] and starting using them today - [...] Name Value Interpretation Reference Range Facility E2on 05-12-2025 Estradiol Level 26.60 pg/mL Normal [facility] Comment on above: Result Comment: Adult Female E2 Reference Ranges: Follicular phase 19.5 - 144.2 pg/mL Midcycle 63.9 - 356.7 pg/mL Luteal phase 55.8 - 214.2 pg/mL Post menopausal 0 - 33.2 pg/mL Performed By: #### P LATRICE, FSH, TSH, E2, FT3, LH, FT4 #### [place] [address] #### HCG #### [facility] [address] [place] [id number] FSHon 05-12-2025 FSH 5.4 mIU/mL Normal [facility] Comment on above: Result Comment: Adul t Female FSH Reference Ranges (05/26/99): Follicular phase 2.5 - 10.2 mIU/mL Midcycle phase 3.4 - 33.4 mIU/mL Luteal phase 1.5 - 9.1 mIU/mL Post menopausal 23.0 -116.3 mIU/mL Adult Male: 1.4 - 18.1 mIU/mL Performed By: #### P LATRICE, E2, LH #### [place] [address] FT3on 05-12-2025 Free T3 [Mass/Vol] 3.66 pg/mL Normal 2.30-4.20 [facility] Comment on above: Performed By: #### P LATRICE, E2, LH #### [place] [address] FT4on 05-12-2025 Free T4 [Mass/Vol] 1.13 ng/dL Normal 0.89-1.76 [facility] N [facility] Comment on above: Result Comment: No te - New Reference Range in effect 20 Performed By: #### P LATRICE, FSH, TSH, E2, FT3, LH, FT4 #### [place] [address] #### HCG #### [facility] [address] [place] [id number] HCGon 05-12-2025 hCG, quantitative <1.[address] [facility] Comment on above: Performed By: #### P LATRICE, FSH, TSH, E2, FT3, LH, FT4 #### [address] [address] #### HCG #### [place] [address] [place], [place] [address] Date of LMP Normal [facility] Comment on above: Performed By: #### P LATRICE, FSH, TSH, E2, FT3, LH, FT4 #### [address] [address] #### HCG #### [place] [address] [place], [place] [address] LHon 05-12-2025 LH 4.0 mIU/mL [facility] Comment on above: Result Comment: No te - New Reference Range in effect 20 Adult Female LH Reference Ranges: Follicular phase 1.9 - 12.5 mIU/mL Midcycle phase 8.7 - 76.3 mIU/mL Luteal phase 0.5 - 16.9 mIU/mL Post menopausal 5.0 - 55.2 mIU/mL Performed By: #### P LATRICE, E2, LH #### [place] [address] PROGon 05-12-2025 Progesterone Level <0.2 Normal [facility] N MAS[facility]LL[facility] [...] By: #### P LATRICE, E2, LH #### [place] [address] TSHon 05-12-2025 TSH 2.375 mIU/mL Normal 0.550-4.780 [facility] Comment on above: Performed By: #### P LATRICE, FSH, TSH, E2, FT3, LH, FT4 #### [address] [address] #### HCG #### [place] [address] [place], [place] [address] PREG SERUM QUANTon 5 HCG QUANTITATIVE 2 Normal [facility] Comment on above: Result Comment: Refe rence [...] 3RD TRIMESTER 1000-50,000 Performed By: #### 2 [id number] #### [facility],[address] [place] [address] PROGESTERONE 4317on 04-03-20 25 PROGESTERONE 30.0 ng/mL Normal . [facility] Comment on above: Order Comment: N Result Comment: Foll icular phase 0.1 - 0.9 Luteal phase 1.8 - 23.9 Ovulation phase 0.1 - 12.0 First trimester 11.0 - 44.3 Second trimester 25.4 - 83.3 Third trimester 58.7 - 214.0 Postmenopausal 0.0 - 0.1 Performed at: [facility] [address] [id number] Carpenter/Labor: Heri Louis PhD, Phone: [phone] Performed By: #### L 500.7897, L100.0100, L196.1717 #### [facility] [address] [place], [address] Estradiolon 04-02-2025 ESTRADIOL 340.0 pg/mL Normal [facility] Comment on above: Result Comment: FEMA LES [...] by age 18. Performed By: #### L 500.2500, L100.0100, L700.6800 #### [facility] [address] [place], [place], [address] Serum human chorionic gonado tropin detection for pregnancyOrdered By: Yola Schaffer on 04-02-2025 HCG ( test) Ql 15 mIU/mL High <9 [facility] Comment on above: Gestational Age0.2-1 Week: 5-50 mIU/mL1-2 Weeks: 50-500 mIU/mL2-3 Weeks: 100-5000 mIU/mL3-4 Weeks: 500-10,000 mIU/mL4-5 Weeks:1000-50,000 mIU/mL5-6 Weeks: 10,000-100,000 mIU/mL6-8 Weeks: 15,000-200,000 mIU/mL2-3 Months:10,000-100,000 mIU/mL Serum or plasma estradiol me asurement after follitropin dose (mass/volume)Ordered By: Yola Schaffer on 04-02-2025 E2 post dose follitropin [Mass/Vol] 340.0 pg/mL [facility] Comment on above: FEMALES ADULT FEMALE : Premenopausal: 15-350 pg/mL(E2 levels vary widely through [...] year earlier in obese girls and in girls.Progression through Mohit stages is variable. Mohit stage V (adult) should be reached by age 18. hCG Titer Quant., Serumon HCG QUANT. 15 mIU/mL High <9 non-preg [facility] Comment on above: Result Comment: Gest ational Age 0.2-1 Week: 5-50 mIU/mL 1-2 Weeks: 50-500 mIU/mL 2-3 Weeks: 100-5000 mIU/mL 3-4 Weeks: 500-10,000 mIU/mL 4-5 Weeks:1000-50,000 mIU/mL 5-6 Weeks: 10,000-100,000 mIU/mL 6-8 Weeks: 15,000-200,000 mIU/mL 2-3 Months:10,000-100,000 mIU/mL Performed By: #### L 500.2500, L100.0100, L700.6800 #### [facility] [address] [place], [address] PROGESTERONE 4317on 04-01-20 PROGESTERONE 36.7 ng/mL Normal . [facility] Comment on above: Order Comment: N Result Comment: Foll icular phase 0.1 - 0.9 Luteal phase 1.8 - 23.9 Ovulation phase 0.1 - 12.0 First trimester 11.0 - 44.3 Second trimester 25.4 - 83.3 Third trimester 58.7 - 214.0 Postmenopausal 0.0 - 0.1 Performed at: - [address] [id number] Carpenter/Labor: Heri Louis PhD, Phone: [phone] Performed By: #### L 500.2500, L100.0100, L700.6800 #### [facility] [address] [place], [place], [id number] Estradiolon 03-31-2025 ESTRADIOL 575.0 pg/mL Normal [facility] Comment on above: Result Comment: FEMA LES [...] by age 18. Performed By: #### L 500.2500, L100.0100, L700.6800 #### [facility] [place], [address] Serum human chorionic gonado tropin detection for pregnancyOrdered By: Yola Schaffer on 03-31-2025 HCG ( test) Ql 41 mIU/mL High <9 [facility] Comment on above: Gestational Age0.2-1 Week: 5-50 mIU/mL1-2 Weeks: 50-500 mIU/mL2-3 Weeks: 100-5000 mIU/mL3-4 Weeks: 500-10,000 mIU/mL4-5 Weeks:1000-50,000 mIU/mL5-6 Weeks: 10,000-100,000 mIU/mL6-8 Weeks: 15,000-200,000 mIU/mL2-3 Months:10,000-100,000 mIU/mL Serum or plasma estradiol me asurement after follitropin dose (mass/volume)Ordered By: Yola Schaffer on 03-31-2025 E2 post dose follitropin [Mass/Vol] 575.0 pg/mL [facility] Comment on above: FEMALES ADULT FEMALE : Premenopausal: 15-350 pg/mL(E2 levels vary widely through [...] year earlier in obese girls and in girls.Progression through Mohit stages is variable. Mohit stage V (adult) should be reached by age 18. TSH DL <= 0.005 mIU/L QnOrde red By: Yola Schaffer on 03-31-2025 TSH Qn 1.610 uIU/mL 0.300-4.200 [facility] Thyroid Stim Hormone (TSH)on 03-31-2025 TSH 1.610 uIU/mL Normal 0.300-4.200 [facility] Comment on above: Performed By: #### L 500.2500, L100.0100, L700.5380 #### [facility] [address] [place], [place], [id number] hCG Titer Quant., Serumon HCG QUANT. 41 mIU/mL High <9 non-preg [facility] Comment on above: Result Comment: Gest ational Age 0.2-1 Week: 5-50 mIU/mL 1-2 Weeks: 50-500 mIU/mL 2-3 Weeks: 100-5000 mIU/mL 3-4 Weeks: 500-10,000 mIU/mL 4-5 Weeks:1000-50,000 mIU/mL 5-6 Weeks: 10,000-100,000 mIU/mL 6-8 Weeks: 15,000-200,000 mIU/mL 2-3 Months:10,000-100,000 mIU/mL Performed By: #### L 500.2500, L100.0100, L700.6800 #### [facility] [address] [place], [address] PROGESTERONE 4317on 03-29-20 25 PROGESTERONE 42.6 ng/mL Normal . [facility] Comment on above: Order Comment: N Result Comment: Foll icular phase 0.1 - 0.9 Luteal phase 1.8 - 23.9 Ovulation phase 0.1 - 12.0 First trimester 11.0 - 44.3 Second trimester 25.4 - 83.3 Third trimester 58.7 - 214.0 Postmenopausal 0.0 - 0.1 Performed at: [facility] [address] [id number] Carpenter/Labor: Heri Louis PhD, Phone: [phone] Performed By: #### L 500.0923, L100.1625, L489.2587 #### [facility] [address] [place], [address] Serum human chorionic gonado tropin detection for pregnancyOrdered By: Yola Schaffer on 03-28-2025 HCG ( test) Ql 97 mIU/mL High <9 [facility] Comment on above: Gestational Age0.2-1 Week: 5-50 mIU/mL1-2 Weeks: 50-500 mIU/mL2-3 Weeks: 100-5000 mIU/mL3-4 Weeks: 500-10,000 mIU/mL4-5 Weeks:1000-50,000 mIU/mL5-6 Weeks: 10,000-100,000 mIU/mL6-8 Weeks: 15,000-200,000 mIU/mL2-3 Months:10,000-100,000 mIU/mL hCG Titer Quant., Serumon HCG QUANT. 97 mIU/mL High <9 non-preg [facility] Comment on above: Result Comment: Gest ational Age 0.2-1 Week: 5-50 mIU/mL 1-2 Weeks: 50-500 mIU/mL 2-3 Weeks: 100-5000 mIU/mL 3-4 Weeks: 500-10,000 mIU/mL 4-5 Weeks:1000-50,000 mIU/mL 5-6 Weeks: 10,000-100,000 mIU/mL 6-8 Weeks: 15,000-200,000 mIU/mL 2-3 Months:10,000-100,000 mIU/mL Performed By: #### L 500.2500, L100.0100, L700.6800 #### [facility] [address] [place], [place], [address] PROGESTERONE 4317on 03-25-20 PROGESTERONE 42.6 ng/mL Normal . [facility] Comment on above: Order Comment: N Result Comment: Foll icular phase 0.1 - 0.9 Luteal phase 1.8 - 23.9 Ovulation phase 0.1 - 12.0 First trimester 11.0 - 44.3 Second trimester 25.4 - 83.3 Third trimester 58.7 - 214.0 Postmenopausal 0.0 - 0.1 Performed at: [address] [id number] Carpenter/Labor: Heri Louis PhD, Phone: [phone] Performed By: #### L 500.2500, L100.0100, L700.6800 #### [facility] [address] [place], [place], [id number] Estradiolon 03-24-2025 ESTRADIOL 591.0 pg/mL Normal [facility] Comment on above: Result Comment: FEMA LES [...] by age 18. Performed By: #### L 500.2500, L100.0100, L700.6800 #### [facility] [place], [address] Serum or plasma estradiol me asurement after follitropin dose (mass/volume)Ordered By: Yola Schaffer on 03-24-2025 E2 post dose follitropin [Mass/Vol] 591.0 pg/mL [facility] Comment on above: FEMALES ADULT FEMALE : Premenopausal: 15-350 pg/mL(E2 levels vary widely through [...] year earlier in obese girls and in girls.Progression through Mohit stages is variable. Mohit stage V (adult) should be reached by age 18. E2on 03-12-2025 Estradiol Level 983.94 pg/mL Normal [facility] Comment on above: Result Comment: Adult Female E2 Reference Ranges: Follicular phase 19.5 - 144.2 pg/mL Midcycle 63.9 - 356.7 pg/mL Luteal phase 55.8 - 214.2 pg/mL Post menopausal 0 - 33.2 pg/mL Performed By: #### E 2, LH, PROG #### [address] [address] LHon 03-12-2025 LH 5.8 mIU/mL Normal [facility] Comment on above: Result Comment: No te - New Reference Range in effect 20Adult Female LH Reference Ranges: Follicular phase 1.9 - 12.5 mIU/mL Midcycle phase 8.7 - 76.3 mIU/mL Luteal phase 0.5 - 16.9 mIU/mL Post menopausal 5.0 - 55.2 mIU/mL Performed By: #### E 2, LH, PROG #### [place] [address] PROGon 03-12-2025 Progesterone Level <0.2 Normal AULTMA [...] By: #### E 2, LH, PROG #### [place] [address] E2on 03-10-2025 Estradiol Level 73.69 pg/mL Normal [facility] Comment on above: Result Comment: Adult Female E2 Reference Ranges: Follicular phase 19.5 - 144.2 pg/mL Midcycle 63.9 - 356.7 pg/mL Luteal phase 55.8 - 214.2 pg/mL Post menopausal 0 - 33.2 pg/mL Performed By: #### P LATRICE, E2, LH #### [place] [address] LHon 03-10-2025 LH 8.0 mIU/mL Normal [facility] Comment on above: Result Comment: No te - New Reference Range in effect 20Adult Female LH Reference Ranges: Follicular phase 1.9 - 12.5 mIU/mL Midcycle phase 8.7 - 76.3 mIU/mL Luteal phase 0.5 - 16.9 mIU/mL Post menopausal 5.0 - 55.2 mIU/mL Performed By: #### P LATRICE, E2, LH #### [place] [address] PROGon 03-10-2025 Progesterone Level 0.2 ng/mL Normal [...] By: #### P LATRICE, E2, LH #### [place] [address] E2on 03-07-2025 Estradiol Level 74.44 pg/mL Normal [facility] Comment on above: Result Comment: Adult Female E2 Reference Ranges: Follicular phase 19.5 - 144.2 pg/mL Midcycle 63.9 - 356.7 pg/mL Luteal phase 55.8 - 214.2 pg/mL Post menopausal 0 - 33.2 pg/mL Performed By: #### P LATRICE, E2, LH #### [place] [address] LHon 03-07-2025 LH 4.0 mIU/mL Normal [facility] Comment on above: Result Comment: No te - New Reference Range in effect 20Adult Female LH Reference Ranges: Follicular phase 1.9 - 12.5 mIU/mL Midcycle phase 8.7 - 76.3 mIU/mL Luteal phase 0.5 - 16.9 mIU/mL Post menopausal 5.0 - 55.2 mIU/mL Performed By: #### P LATRICE, E2, LH #### [place] [address] PROGon 03-07-2025 Progesterone Level <0.2 Normal AULTMA [...] By: #### P LATRICE, E2, LH #### [address] [place], [place] [address] Commissary Agent Office Visit Reporton 03-06-2025 Commissary Agent Office Visit Report [facility]'s [address], [address] [place] [address] OFFICE VISIT Date of Service: 03/06/25 MR#: [id number] Acct: [id number] Name: JOSE EDWARD Rep #: [id number] : 1995 Provider: Dr. Julianna Aburto, DO Age/Sex: 29/F Location: [facility] Status: Signed Intake Vital Signs 10/14/24 18:26 03/06/25 14:35 Height 5 ft 2 in 5 ft 2 in Weight: 170 lb 6 oz BMI 31.1 BP 110/80 Intake Visit Reasons: Annual ([employer]) Consular Officer Required: No Is patient in pain?: No [...] polyp Abnormal uterine bleeding (AUB) Surgical History [place] teeth extracted History of hysteroscopy Status post laparoscopy S/P D C (status post dilation and curettage) Hx of lumpectomy History of tonsillectomy and adenoidectomy Family History Mother Diabetes Uncle Diabetes Grandmother Diabetes Social History (Updated 03/06/25 @ 14:47 by Dunia Fuentes) adopted: No household members: spouse number of children: 1 current occupational status: employed current occupation: [employer] current occupational exposures/hazards: No pets and animals: Yes (Avoid litterbox) pets and animals: cat(s) and dog(s) history of recent travel: Yes ([facility]) out of state: Yes out of country: No sexually active: Yes Smoking Status: Former smoker Electronic Cigarette Use: with nicotine alcohol intake: never substance use type: does not use well-balanced diet: daily or most days caffeine: No eating out: 1-3 times/week during the past year weight has: increased > 10 lbs what type of physical activity do you participate in: none jessica/faith: Hinduism seatbelt use: always do you feel safe at home: Yes additional social history: - Andrea [place] History 3 Elective abortions Hx Para 1 Spontaneous abortions 2 Hx # Term Pregnancies Ectopic pregnancies Hx # Pregnancies 1 Multiple births # of living children 1 Past Pregnancies Del. Date Name GA/Weeks Outcome Route Bth Weight Gen Labor Lgth Anesthesia Del Locatn Provider FOB 01/15/18 7 spontaneous 08/05/23 chemical 5 03/14/24 Josue 30 live - 3lbs 6oz Male spinal Mulugeta López Delivery Date: 03/14/24 Last Updated by: Makenzie [...] Menopausal Symptoms: (more content not included)... Normal [facility] E2on 02-28-2025 Estradiol Level 44.61 pg/mL Normal [facility] Comment on above: Result Comment: Adult Female E2 Reference Ranges: Follicular phase 19.5 - 144.2 pg/mL Midcycle 63.9 - 356.7 pg/mL Luteal phase 55.8 - 214.2 pg/mL Post menopausal 0 - 33.2 pg/mL Performed By: #### P LATRICE, E2, LH #### [place] [address] FSHon 02-28-2025 FSH 6.6 mIU/mL Normal [facility] Comment on above: Result Comment: Adul t Female FSH Reference Ranges (05/26/99): Follicular phase 2.5 - 10.2 mIU/mL Midcycle phase 3.4 - 33.4 mIU/mL Luteal phase 1.5 - 9.1 mIU/mL Post menopausal 23.0 -116.3 mIU/mL Adult Male: 1.4 - 18.1 mIU/mL Performed By: #### P LATRICE, E2, LH #### [address] [address] FT3on 02-28-2025 Free T3 [Mass/Vol] 2.68 pg/mL Normal 2.30-4.20 [facility] Comment on above: Performed By: #### P LATRICE, E2, LH #### [place] [address] FT4on 02-28-2025 Free T4 [Mass/Vol] 1.24 ng/dL Normal 0.89-1.76 [facility] Comment on above: Result Comment: No te - New Reference Range in effect 20 Performed By: #### P LATRICE, E2, LH #### [place] [address] HCGon 02-28-2025 Date of LMP 02/26/2025 Normal [facility] Comment on above: Performed By: #### P LATRICE, E2, LH #### [place] [address] hCG, quantitative <1.0 Normal [facility] Comment on above: Performed By: #### P LATRICE, E2, LH #### [place] [address] LHon 02-28-2025 LH 6.1 mIU/mL Normal [facility] Comment on above: Result Comment: No te - New Reference Range in effect 20 Adult Female LH Reference Ranges: Follicular phase 1.9 - 12.5 mIU/mL Midcycle phase 8.7 - 76.3 mIU/mL Luteal phase 0.5 - 16.9 mIU/mL Post menopausal 5.0 - 55.2 mIU/mL Performed By: #### P LATRICE, E2, LH #### [place] [address] PROGon 02-28-2025 Progesterone Level 0.3 ng/mL Normal [...] - 422.50 ng/ml Performed By: #### P LATRICE E2, #### [facility] [address] [place] [address] TSHon 02-28-2025 TSH 0.688 mIU/mL Normal 0.550-4.780 [facility] Comment on above: Performed By: #### P LATRICE E2, #### [facility] [address] [place] [address] Urine Cultureon 10-15-2024 URC Culture exhibits no growth. Normal [facility] Comment on above: Performed By: #### M 100.2200 #### [facility] [address] [facility]. [place], [place], [address] Abdomen Single View (Portabl e)on 10-14-2024 Abdomen Single View (Portable) [facility] [address] [place], [place] [address] Abdomen Single View (Portable) MR#: [id number] Acct: [id number] Name: JOSE EDWARD Rep #: [id number] : 1995 F 29 From: Nataliya Brown DO PCP: CHERYL Samano Status: PRE ER Study: Abdomen Single View (Portable) Date of Exam: 0 10/14/24 Exam# [id number] Ordering Dr: Anablela Malave PROCEDURE: ABDOMEN SINGLE VIEW (PORTABLE) 10/14/2024 REASON FOR EXAM: ABDOMINAL PAIN, CONSTIPATION TECHNIQUE: Single view abdomen. COMPARISON: None FINDINGS: Bowel gas: Nonobstructive bowel gas pattern. No evidence of obstruction. Mild stool burden within the large bowel. Calcifications: No suspicious calcifications. Bones: The bones are unremarkable. Other: RAD/Abdomen Single View (Portable) IMPRESSION: CONSTIPATION. Reading Location: [facility] CC: CHERYL Weinstein; CHERYL Samano Professor Of Violin: Signed Normal [facility] Absolute neutrophil countOrd ered By: Soren Babcock on 10-14-2024 Neutrophils (Bld) [#/Vol] 7.7 10*3/uL 2.0-7.7 [facility] Amorphous sediment detection in urine sediment by light microscopyOrdered By: Anabella Malave on 10-14-2024 Amorphous sediment LM Ql (Urine sed) 1+ PHOS [facility] Anion gap in Serum or Plasma Ordered By: Soren Babcock on 10-14-2024 Anion gap [Moles/Vol] 11 mmol/L 5-15 [facility] BUN/creatinine ratioOrdered By: Soren Babcock on 10-14-2024 Urea nitrogen/Creatinine [Mass ratio] 15.2 mg/mg 10-20 [facility] Basophil percentageOrdered B y: Soren Babcock on 10-14-2024 Basophils/100 WBC (Bld) 0.2 % 0-1 [facility] Beta HCG ( test) Ql Ordered By: Soren Babcock on 10-14-2024 Serum Test, Qualitative Negative [facility] Bilirubin Test strip Ql (U)O rdered By: Anabella Malave on 10-14-2024 Bilirubin Ql (U) 3 mg/dL High Negative [facility] Comment on above: COLOR OF URINE MAY A FFECT DIPSTICK RESULTS. Bilirubin, totalOrdered By: Soren Babcock on 10-14-2024 Bilirubin [Mass/Vol] 0.56 mg/dL 0.00-1.30 [facility] CBC W/Diff, Automatedon 10-01 Absolute Lymph 2.42 X10 3/uL Normal 0.83-4.51 [facility] Comment on above: Performed By: #### L 500.2500, L100.0100, L700.6800 #### [facility] [address] [place], [address] Absolute Neut 7.7 X10 3/uL Normal 2.0-7.7 [facility] Comment on above: Performed By: #### L 500.2500, L100.0100, L700.6800 #### [facility] [address] [place], [address] Basophils/100 WBC (Bld) 0.2 % Normal 0-1 [facility] Comment on above: Performed By: #### L 500.2500, L100.0100, L700.6800 #### [facility] [address] [place], [address] Eosinophils/100 WBC (Bld) 1.6 % Normal 0-5 [facility] Comment on above: Performed By: #### L 500.2500, L100.0100, L700.6800 #### [facility] [address] [place], [address] Erythrocyte distribution width (RBC) [Ratio] 14.4 % Normal 11.6-14.6 [facility] Comment on above: Performed By: #### L 500.2500, L100.0100, L700.6800 #### [facility] [address] [place], [address] Hematocrit (Bld) [Volume fraction] 32.0 % Low 37-47 [facility] Comment on above: Performed By: #### L 500.2500, L100.0100, L700.6800 #### [facility] [address] [place], [address] Hemoglobin (Bld) [Mass/Vol] 10.4 g/dL Low 12.0-15.0 [facility] Comment on above: Performed By: #### L 500.2500, L100.0100, L700.6800 #### [facility] [address] [place], [address] IG% 0.500 Normal 0.0-0.9 [facility] Comment on above: Result Comment: IG% - Immature Granulocytes (promyelocytes, myelocytes and metamyelocytes) > 1% indicates that a LEFT SHIFT is Present. Performed By: #### L 500.2500, L100.0100, L700.6800 #### [facility] [address] [place], [address] Lymphocytes/100 WBC (Bld) 21.9 % Normal 19-41 [facility] Comment on above: Performed By: #### L 500.2500, L100.0100, L700.6800 #### [facility] [address] [place], [address] MCH (RBC) [Entitic mass] 29.9 pg Normal 27.0-32.0 [facility] Comment on above: Performed By: #### L 500.2500, L100.0100, L700.6800 #### [facility] [address] [place], [address] MCHC (RBC) [Mass/Vol] 32.5 g/dL Normal 32-36 [facility] Comment on above: Performed By: #### L 500.2500, L100.0100, L700.6800 #### [facility] [address] [place], [address] MCV (RBC) [Entitic vol] 92.0 fL Normal 81-99 [facility] Comment on above: Performed By: #### L 500.2500, L100.0100, L700.6800 #### [facility] [address] [place], [address] Monocytes/100 WBC (Bld) 6.5 % Normal 0-10 [facility] Comment on above: Performed By: #### L 500.2500, L100.0100, L700.6800 #### [facility] [address] [place], [address] Neutrophils/100 WBC (Bld) 69.3 % Normal 47-70 [facility] Comment on above: Performed By: #### L 500.2500, L100.0100, L700.6800 #### [facility] [address] [place], [address] Nucleated RBC (Bld) [#/Vol] 0 10*3/uL Normal 0-5 [facility] Comment on above: Performed By: #### L 500.2500, L100.0100, L700.6800 #### [facility] [address] [place], [address] Platelet mean volume (Bld) [Entitic vol] 9.2 fL Normal 6.2-12.0 [facility] Comment on above: Performed By: #### L 500.2500, L100.0100, L700.6800 #### [facility] [address] [place], [address] Platelets (Bld) [#/Vol] 237 10*3/uL Normal 150-450 [facility] Comment on above: Performed By: #### L 500.2500, L100.0100, L700.6800 #### [facility] [address] [place], [address] RBC (Bld) [#/Vol] 3.48 10*6/uL Low 4.2-5.[address] [facility] Comment on above: Performed By: #### L 500.2500, L100.0100, L700.6800 #### [facility] [address] [place], [address] RDW SD 46.8 fl High 35.1-43.9 [facility] [facility] Comment on above: Performed By: #### L 500.2500, L100.0100, L700.6800 #### [facility] [address] [place], [address] WBC (Bld) [#/Vol] 11.1 10*3/uL High 4.4-11.[address] [facility] Comment on above: Performed By: #### L 500.2500, L100.0100, L700.6800 #### [facility] [address] [place], [address] Carbon dioxide, total [Moles /volume] in Central venous bloodOrdered By: Soren Babcock on 10-14-2024 CO2 [Moles/Vol] 24.3 mmol/L 21.0-32.0 [facility] Chloride assayOrdered By: Ayan Babcock on 10-14-2024 Chloride [Moles/Vol] 101 mmol/L 98-108 [facility] Comprehensive Metabolic Prof ilon 10-14-2024 Albumin [Mass/Vol] 4.0 g/dL Normal 3.5-5.0 [facility] Comment on above: Performed By: #### L 500.2500, L100.0100, L700.6800 #### [facility] [address] [place], [address] Albumin/Globulin [Mass ratio] 1.7 {ratio} Normal 0.9-2.4 [facility] Comment on above: Performed By: #### L 500.2500, L100.0100, L700.6800 #### [facility] [address] [place], [address] ALK PHOS 65 U/L Normal 35-104 [facility] Comment on above: Performed By: #### L 500.2500, L100.0100, L700.6800 #### [facility] [address] [place], [address] ALT [Catalytic activity/Vol] 14 U/L Normal <=34 [facility] Comment on above: Performed By: #### L 500.2500, L100.0100, L700.6800 #### [facility] [address] [place], [address] AST [Catalytic activity/Vol] 19 U/L Normal <=31 [facility] Comment on above: Performed By: #### L 500.2500, L100.0100, L700.6800 #### [facility] [address] [place], [address] Bilirubin [Mass/Vol] 0.56 mg/dL Normal 0.00-1.30 [facility] Comment on above: Performed By: #### L 500.2500, L100.0100, L700.6800 #### [facility] [address] [place], [address] BUN/CRE 15.2 RATIO Normal 10-20 [facility] Comment on above: Performed By: #### L 500.2500, L100.0100, L700.6800 #### [facility] [address] [place], [address] Calcium [Mass/Vol] 8.8 mg/dL Normal 7.6-11.0 [facility] Comment on above: Performed By: #### L 500.2500, L100.0100, L700.6800 #### [facility] [address] [place], [address] Chloride [Moles/Vol] 101 mmol/L Normal 98-108 [facility] Comment on above: Performed By: #### L 500.2500, L100.0100, L700.6800 #### [facility] [address] [place], [address] CO2 [Moles/Vol] 24.3 mmol/L Normal 21.0-32.0 [facility] Comment on above: Performed By: #### L 500.2500, L100.0100, L700.6800 #### [facility] [address] [place], [address] Creatinine [Mass/Vol] 0.60 mg/dL Low 0.70-1.20 [facility] Comment on above: Performed By: #### L 500.2500, L100.0100, L700.6800 #### [facility] [address] [place], [address] ECRCL 141.63 ml/min Normal 50-250 [facility] Comment on above: Performed By: #### L 500.2500, L100.0100, L700.6800 #### [facility] [address] [place], [address] GAP 11 Normal 5-15 [facility] Comment on above: Performed By: #### L 500.2500, L100.0100, L700.6800 #### [facility] [address] [place], [address] GFR/1.73 sq M.predicted among non-blacks MDRD (S/P/Bld) [Vol rate/Area] 126 mL/min/{1.73_m2} Normal >60 [facility] Comment on above: Result Comment: mL/m in/1.73m2 CKD-EPI Creatinine Equation (2020) Performed By: #### L 500.2500, L100.0100, L700.6800 #### [facility] [address] [place], [address] Globulin (S) [Mass/Vol] 2.4 g/dL Normal 2.2-4.2 [facility] Comment on above: Performed By: #### L 500.2500, L100.0100, L700.6800 #### [facility] [address] [place], [address] Glucose [Mass/Vol] 112 mg/dL High 70-99 [facility] Comment on above: Performed By: #### L 500.2500, L100.0100, L700.6800 #### [facility] [address] [place], [address] Potassium [Moles/Vol] 3.7 mmol/L Normal 3.3-5.1 [facility] Comment on above: Performed By: #### L 500.2500, L100.0100, L700.6800 #### [facility] [address] [place], [address] Sodium [Moles/Vol] 137 mmol/L Normal 133-145 [facility] Comment on above: Performed By: #### L 500.2500, L100.0100, L700.6800 #### [facility] [address] [place], [address] T PROT 6.4 g/dL Normal 5.9-8.4 [facility] Comment on above: Performed By: #### L 500.2500, L100.0100, L700.6800 #### [facility] [address] [place], [address] Urea nitrogen [Mass/Vol] 9 mg/dL Normal 4-19 [facility] Comment on above: Performed By: #### L 500.2500, L100.0100, L700.6800 #### [facility] [address] [place], [address] Emergency Department Summary on 10-14-2024 Emergency Department Summary [facility] Medical Records Department [address] [place] [address] Emergency Department Summary 10/14/24 MR#: [id number] Acct: [id number] Name: JOSE EDWARD Rep #: [id number] : 1995 29 From: Soren Babcock MD PCP: CHERYL Samano [facility] Location: ED HPI History of Present Illness Chief Complaint: Abd Pain Narrative Narrative: 29-year-old female presents with abdominal pain. On 10/11/2024 she drove to [place], [place] to have egg retrieval at a fertility clinic. They did the procedure vaginally and punctured her bladder while retrieving some eggs. They prescribed Keflex and Pyridium. She drove home that same day and developed chest pain, shortness of breath, nausea and abdominal pain and had difficulty emptying her bladder. She was evaluated at [place] [facility] on the same day 10/[address] scan of chest abdomen pelvis negative for PE. There were enlarged ovaries with numerous cysts and moderate volume ascites compatible with ovarian hyperstimulation syndrome. She also had a West placed for urinary retention. She was transferred to [facility] for definitive treatment. She states they [...] and shortness of breath are much better. [facility] Medical History Abnormal uterine bleeding [...] ea 02/28/24 Unknown Rx (FreeStyle Lexi 2 Richey) flash glucose sensor (FreeStyle #1 ea 02/28/24 Unknown Rx Lexi 2 Sensor kit) PNV no.151-iron 27 mg-folic 800 1 cap PO DAILY 10/11/24 Unknown Hi story mcg-omega3 260 sw-kwa-arc-fish capsule ( Multi-DHA (with vitamin K)) cabergoline [...] Diabetes Uncle Diabetes Grandmother Diabetes Surgical History [place] teeth extracted History of hysteroscopy Status post laparoscopy S/P D C (status post dilation and curettage) Hx of lumpectomy History of tonsillectomy and adenoidectomy Social History adopted: No household members: spouse number of children: 0 current occupational status: employed current occupation: [employer] current occupational exposures/hazards: No pets and animals: Yes (Avoid litterbox) pets and animals: (more content not included)... Normal [facility] Eosinophil percentageOrdered By: Soren Babcock on 10-14-2024 Eosinophils/100 WBC (Bld) 1.6 % 0-5 [facility] Epithelial cells.squamous LM Ql (Urine sed)Ordered By: Anabella Malave on 10-14-2024 Epithelial cells.squamous LM.HPF (Urine sed) [#/Area] 25 /[HPF] 5-10 [facility] Erythrocyte distribution wid th (RBC) [Ratio]Ordered By: Soren Babcock on 10-14-2024 Erythrocyte distribution width (RBC) [Entitic vol] 46.8 fL High 35.1-43.9 [facility] Erythrocyte distribution wid th ratioOrdered By: Soren Babcock on 10-14-2024 Erythrocyte distribution width (RBC) [Ratio] 14.4 % 11.6-14.6 [facility] Estimation of creatinine rory aranceOrdered By: Soren Babcock on 10-14-2024 Estimated Creatinine Clearance Calc 141.63 ml/min 50-250 [facility] GFR/1.73 sq M.predicted checo g non-blacks MDRD (S/P/Bld) [Vol rate/Area]Ordered By: Soren Babcock on 10-14-2024 Estimated GFR (MDRD) Non-Af Amer 126 >60 [facility] Comment on above: mL/min/1.73m2 CKD-EP I Creatinine Equation (2020) Glucose Ql (U)Ordered By: Carolyn Malave on 10-14-2024 Urine Glucose (UA) Normal mg/dl Normal [facility] Hematocrit Auto (Bld) [Volum e fraction]Ordered By: Soren Babcock on 10-14-2024 Hematocrit (Bld) [Volume fraction] 32.0 % Low 37-47 [facility] Hemoglobin measurementOrdere d By: Soren Babcock on 10-14-2024 Hemoglobin (Bld) [Mass/Vol] 10.4 g/dL Low 12.0-15.0 [facility] Immature granulocytes/100 WB C Auto (Bld)Ordered By: Soren Babcock on 10-14-2024 Immature granulocytes/100 WBC (Bld) 0.500 % 0.0-0.9 [facility] Comment on above: IG% - Immature Granu locytes (promyelocytes, myelocytes and metamyelocytes) > 1% indicates that a LEFT SHIFT is Present. Ketones Test strip Ql (U)Ord ered By: Anabella Malave on 10-14-2024 Ketones Ql (U) Negative Negative [facility] - Chemistry and C hemistry - challengeOrdered By: Soren Babcock on 10-14-2024 AST [Catalytic activity/Vol] 19 U/L <32 [facility] Lipaseon 10-14-2024 Lipase [Catalytic activity/Vol] 29 U/L Normal 13-75 [facility] Comment on above: Result Comment: Cyndi hawk note: LIPASE revised reference range effective 22. New Lipase methodology. Expected to produce lower values than the previous assay method. NEW Reference Range: 13 - 75 U/L Performed By: #### L 500.2500, L100.0100, L700.6800 #### [facility] [address] [place], [address] Lipase measurementOrdered By : Soren Babcock on 10-14-2024 Lipase [Catalytic activity/Vol] 29 U/L 13-75 [facility] Comment on above: Please note:LIPASE r evised reference range effective 22. New Lipase methodology. Expected to produce lower values than the previous assay method. NEW Reference Range: 13 - 75 U/L Lymphocytes Auto (Unsp spec) [#/Vol]Ordered By: Soren Babcock on 10-14-2024 Lymphocytes (Bld) [#/Vol] 2.42 10*3/uL 0.83-4.51 [facility] Lymphocytes/100 WBC Auto (Un sp spec)Ordered By: Soren Babcock on 10-14-2024 Lymphocytes/100 WBC (Bld) 21.9 % 19-41 [facility] MCV (mean corpuscular volume ) determinationOrdered By: Soren Babcock on 10-14-2024 MCV (RBC) [Entitic vol] 92.0 fL 81-99 [facility] Mean corpuscular hemoglobin (MCH) determinationOrdered By: Soren Babcock on 10-14-2024 MCH (RBC) [Entitic mass] 29.9 pg 27.0-32.0 [facility] Mean corpuscular hemoglobin concentration (MCHC) determinationOrdered By: Soren Babcock on 10-14-2024 MCHC (RBC) [Mass/Vol] 32.5 g/dL 32-36 [facility] Mean platelet volume determi nationOrdered By: Soren Babcock on 10-14-2024 Platelet mean volume (Bld) [Entitic vol] 9.2 fL 6.2-12.0 [facility] Microscopic analysis of urin e for red blood cells (RBC)Ordered By: Anabella Malave on 10-14-2024 Urine RBC 10-25 SEEN /hpf 0-5 [facility] Monocyte percentageOrdered B y: Soren Babcock on 10-14-2024 Monocytes/100 WBC (Bld) 6.5 % 0-10 [facility] Mucus LM Ql (Urine sed)Order ed By: Anabella Malave on 10-14-2024 Mucus Ql (Urine sed) 0 SEEN /hpf [facility] Neutrophil percentageOrdered By: Soren Babcock on 10-14-2024 Neutrophils/100 WBC (Bld) 69.3 % 47-70 [facility] Nitrite Test strip Ql (U)Ord ered By: Anabella Malave on 10-14-2024 Nitrite Ql (U) Positive High Negative [facility] Nucleated red blood cell per centageOrdered By: Soren Babcock on 10-14-2024 Nucleated RBC/100 WBC (Bld) [Ratio] 0 % 0-5 [facility] Platelet countOrdered By: Ayan Babcock on 10-14-2024 Platelets (Bld) [#/Vol] 237 10*3/uL 150-450 [facility] Potassium (Unsp spec) [Mass/ Vol]Ordered By: Soren Babcock on 10-14-2024 Potassium [Moles/Vol] 3.7 mmol/L 3.3-5.1 [facility] ,Serum,hCG Quali.on 10-14-2024 HCG, SERUM QUAL Negative Normal [facility] Comment on above: Performed By: #### L 500.2500, L100.0100, L700.6800 #### [facility] [address] [place] [address]. [place], [address] Protein Test strip Ql (U)Ord ered By: Anabella Malave on 10-14-2024 Protein Ql (U) 30 mg/dl High Negative [facility] RBC Auto (Bld) [#/Vol]Ordere d By: Soren Babcock on 10-14-2024 RBC (Bld) [#/Vol] 3.48 10*6/uL Low 4.2-5.[address] [facility] Serum creatinine measurement (mass/volume)Ordered By: Soren Babcock on 10-14-2024 Creatinine [Mass/Vol] 0.60 mg/dL Low 0.70-1.20 [facility] Serum globulin measurementOr dered By: Soren Babcock on 10-14-2024 Globulin (S) [Mass/Vol] 2.4 g/dL 2.2-4.2 [facility] Serum glucose measurement (m ass/volume)Ordered By: Soren Babcock on 10-14-2024 Glucose [Mass/Vol] 112 mg/dL High 70-99 [facility] Serum or plasma alanine eric otransferase (ALT) measurementOrdered By: Soren Babcock on 10-14-2024 ALT [Catalytic activity/Vol] 14 U/L <35 [facility] Serum or plasma albumin shannon urement (mass/volume)Ordered By: Soren Babcock on 10-14-2024 Albumin [Mass/Vol] 4.0 g/dL 3.5-5.0 [facility] Serum or plasma albumin/glob ulin mass ratioOrdered By: Soren Babcock on 10-14-2024 Albumin/Globulin [Mass ratio] 1.7 {ratio} 0.9-2.4 [facility] Serum or plasma alkaline meredith sphatase measurementOrdered By: Soren Babcock on 10-14-2024 ALP [Catalytic activity/Vol] 65 U/L 35-104 [facility] Serum or plasma calcium shannon urement (mass/volume)Ordered By: Soren Babcock on 10-14-2024 Calcium [Mass/Vol] 8.8 mg/dL 7.6-11.0 [facility] Serum or plasma urea nitroge n measurement (mass/volume)Ordered By: Soren Babcock on 10-14-2024 Urea nitrogen [Mass/Vol] 9 mg/dL 4-19 [facility] Sodium levelOrdered By: Soren Babcock on 10-14-2024 Sodium [Moles/Vol] 137 mmol/L 133-145 [facility] Total proteinOrdered By: Max Babcock on 10-14-2024 Protein [Mass/Vol] 6.4 g/dL 5.9-8.4 [facility] Urinalysis, Completeon 10-14 AMORPHOUS 1+ PHOS Normal [facility] Comment on above: Order Comment: COLOR OF URINE MAY AFFECT DIPSTICK RESULTS.DISTRIBUTION ASSOCIATE TO SPECIFY Performed By: #### L 500.2500, L100.0100, L700.6800 #### [facility] [address] [place], [address] RBC 10-25 SEEN Normal 0-5 [facility] Comment on above: Order Comment: COLOR OF URINE MAY AFFECT DIPSTICK RESULTS.DISTRIBUTION ASSOCIATE TO SPECIFY Performed By: #### L 500.2500, L100.0100, L700.6800 #### [facility] [address] [place], [address] EPI,SQUAMOUS 25-50 SEEN Normal 5-10 [facility] Comment on above: Order Comment: COLOR OF URINE MAY AFFECT DIPSTICK RESULTS.DISTRIBUTION ASSOCIATE TO SPECIFY Performed By: #### L 500.2500, L100.0100, L700.6800 #### [facility] [address] [place], [address] WBC 0-5 SEEN Normal 0-5 [facility] Comment on above: Order Comment: COLOR OF URINE MAY AFFECT DIPSTICK RESULTS.DISTRIBUTION ASSOCIATE TO SPECIFY Performed By: #### L 500.2500, L100.0100, L700.6800 #### [facility] [address] [place], [address] BACTERIA 0 SEEN Normal None Seen [facility] Comment on above: Order Comment: COLOR OF URINE MAY AFFECT DIPSTICK RESULTS.DISTRIBUTION ASSOCIATE TO SPECIFY Performed By: #### L 500.2500, L100.0100, L700.6800 #### [facility] [address] [place], [address] Mucus Ql (Urine sed) 0 SEEN Normal [facility] Comment on above: Order Comment: COLOR OF URINE MAY AFFECT DIPSTICK RESULTS.DISTRIBUTION ASSOCIATE TO SPECIFY Performed By: #### L 500.2500, L100.0100, L700.6800 #### [facility] [address] [place], [address] Urine blood detectionOrdered By: Anabella Malave on 10-14-2024 Urine Occult Blood 150 /ul High Negative [facility] Urine clarityOrdered By: Sapna Malave on 10-14-2024 Clarity (U) Sl. Cloudy Clear [facility] Urine color determinationOrd ered By: Anabella Malave on 10-14-2024 Color (U) Rita Yellow [facility] Urine leukocyte esterase det ection by dipstickOrdered By: Anabella Malave on 10-14-2024 Leukocyte esterase Test strip Ql (U) 25 /ul High Negative [facility] Urine pHOrdered By: Anabella watters on 10-14-2024 pH (U) 7.0 [pH] 5.0 - 8.0 [facility] Urine sediment bacteria coun t by microscopy (number/high power field)Ordered By: Anabella Malave on 10-14-2024 Bacteria LM.HPF (Urine sed) [#/Area] 0 /[HPF] None Seen [facility] Urine specific gravity measu rementOrdered By: Anabella Malave on 10-14-2024 Specific gravity (U) [Rel density] 1.015 1.002-1.030 [facility] Urobilinogen Ql (U)Ordered B y: Anabella Malave on 10-14-2024 Urobilinogen (U) [Mass/Vol] 8 mg/dL High Normal [facility] White blood cell (WBC) count Ordered By: Soren Babcock on 10-14-2024 WBC (Bld) [#/Vol] 11.1 10*3/uL High 4.4-11.[address] [facility] White blood cell countOrdere d By: Anabella Malave on 10-14-2024 Urine WBC 0-5 SEEN /hpf 0-5 [facility] 30on 10-13-2024 30 Problem: Pain - Adul [...] and maintained or improved Outcome: Progressing Normal [facility] CBC (HEMOGRAM)on 10-13-2024 Erythrocyte distribution width (RBC) [Ratio] 13.9 % Normal 11.5-15.0 [facility] Comment on above: Performed By: #### L [id number] ####Phone Circuit Operator: GYPSY DAY ([phone])[facility])[address] [place] [address] Hematocrit (Bld) [Volume fraction] 28.9 % Low 35.0-47.0 [facility] Comment on above: Performed By: #### L [id number] ####Phone Circuit Operator: GYPSY DAY ([id number])[facility])[address] [place] [address] Hemoglobin (Bld) [Mass/Vol] 9.3 g/dL Low 11.7-16.0 [facility] Comment on above: Performed By: #### L [id number] ####Phone Circuit Operator: GYPSY DAY ([id number])[facility] ([facility])[address] [place] [address] MCH (RBC) [Entitic mass] 29.5 pg Normal 26.0-34.0 [facility] Comment on above: Performed By: #### L [id number] ####Phone Circuit Operator: GYPSY DAY ([id number])[facility])[address] [place] [address] MCHC 32.2 % Normal 30.5-36.0 [facility] Comment on above: Performed By: #### L [id number] ####Phone [employer] Operator: GYPSY DAY ([id number])[facility])[address] [place] [address] MCV (RBC) [Entitic vol] 91.7 fL Normal 77.0-99.0 [facility] Comment on above: Performed By: #### L [id number] ####Phone [employer] Operator: GYPSY DAY ([id number])[facility])[address] [place] [address] Platelet mean volume (Bld) [Entitic vol] 9.6 fL Normal 9.0-12.7 [facility] Comment on above: Performed By: #### L [id number] ####Phone [employer] Operator: GYPSY DAY ([id number])[facility])[address] [place] [address] Platelets (Bld) [#/Vol] 227 10*3/uL Normal 140-440 [facility] Comment on above: Performed By: #### L [id number] ####Phone [employer] Operator: GYPSY DAY ([id number])[facility] ([facility])[address] [place] [address] RBC (Bld) [#/Vol] 3.15 10*6/uL Low 3.80-5.20 [facility] Comment on above: Performed By: #### L [id number] ####Phone Circuit Operator: GYPSY DAY ([id number])[facility] ([facility])[address] [place] [address] WBC (Bld) [#/Vol] 12.4 10*3/uL High 3.6-10.7 [facility] Comment on above: Performed By: #### L [id number] ####Phone [employer] Operator: GYPSY DAY ([id number])[facility])[address] [place] [address] CBC panel Auto (Bld)on 10-13 Erythrocyte distribution width (RBC) [Ratio] 13.9 % 11.5 - 15.0 % [facility] Hematocrit (Bld) [Volume fraction] 28.9 % Low 35.0 - 47.0 % [facility] Hemoglobin (Bld) [Mass/Vol] 9.3 g/dL Low 11.7 - 16.0 g/dL [facility] Interpretation and review of laboratory results Abnormal [facility] MCH (RBC) [Entitic mass] 29.5 pg 26.0 - 34.0 pg [facility] MCHC (RBC) [Mass/Vol] 32.2 % 30.5 - 36.0 % [facility] MCV (RBC) [Entitic vol] 91.7 fL 77.0 - 99.0 fL [facility] Platelet mean volume (Bld) [Entitic vol] 9.6 fL 9.0 - 12.7 fL [facility] Platelets (Bld) [#/Vol] 227 10*3/uL 140 - 440 10*3/uL [facility] RBC (Bld) [#/Vol] 3.15 10*6/uL Low 3.80 - 5.2 0 10*6/uL [facility] WBC (Bld) [#/Vol] 12.4 10*3/uL High 3.6 - 10.7 10*3/uL [facility] COMPREHENSIVE METABOLIC PANE Mahendra 10-13-2024 Albumin [Mass/Vol] 2.8 g/dL Low 3.5-5.0 [facility] Comment on above: Performed By: #### L AB17 ####Phone Circuit Operator: GYPSY DAY ([phone])[facility] ([facility])[address] [place] [address] ALP [Catalytic activity/Vol] 49 U/L Normal 40-150 [facility] Comment on above: Performed By: #### L AB17 ####Phone Circuit Operator: GYPSY DAY ([phone])[facility] ([facility])[address] [place] [address] ALT [Catalytic activity/Vol] 9 U/L Normal <30 [facility] Comment on above: Performed By: #### L [id number] ####Phone Circuit Operator: GYPSY DAY ([phone])[facility] ([facility])[address] [place] [address] Anion gap [Moles/Vol] 4 mmol/L Normal 3-13 [facility] Comment on above: Performed By: #### L [id number] ####Phone Circuit Operator: GYPSY DAY ([id number])[facility] ([facility])[address] [place] [address] [place] AST [Catalytic activity/Vol] 14 U/L Normal <34 [facility] Comment on above: Performed By: #### L [id number] ####Phone Circuit Operator: GYPSY DAY ([id number])[facility] ([facility])[address] [place] [address] Bilirubin [Mass/Vol] 0.2 mg/dL Normal <1.2 [facility] Comment on above: Performed By: #### L [id number] ####Phone Circuit Operator: GYPSY DAY ([phone])[facility])[address] [place] [address] Calcium [Mass/Vol] 7.9 mg/dL Low 8.4-10.2 [facility] Comment on above: Performed By: #### L [id number] ####Phone Circuit Operator: GYPSY DAY ([id number])[facility] ([facility])[address] [place] [address] Chloride [Moles/Vol] 110 mmol/L High 98-107 [facility] Comment on above: Performed By: #### L [id number] ####Phone Circuit Operator: GYPSY DAY ([phone])[facility] ([facility])[address] [place] [address] CO2 [Moles/Vol] 24 mmol/L Normal 22-29 [facility] Comment on above: Performed By: #### L [id number] ####Phone Circuit Operator: GYPSY DAY ([phone])[facility] ([facility])[address] [place] [address] Creatinine [Mass/Vol] 0.60 mg/dL Normal 0.57-1.11 [facility] Comment on above: Performed By: #### L [id number] ####Phone Circuit Operator: GYPSY DAY ([phone])[facility])[address] [place] [address] GLOMERULAR FILTRATION RATE ML/MIN/1.73 SQ M.PREDICTED >90.0 Normal >60.0 [facility] Comment on above: Result Comment: Calc ulation based on the Chronic Kidney Disease Epidemiology Collaboration (CKD-EPI) equation refit without adjustment for race Performed By: #### L [id number] ####Phone Circuit Operator: GYPSY DAY ([id number])[facility] ([facility])[address] [place] [address] Glucose [Mass/Vol] 96 mg/dL Normal 74-100 [facility] Comment on above: Performed By: #### L [id number] ####Phone Circuit Operator: GYPSY DAY ([id number])[facility] ([facility])[address] [place] [address] Potassium [Moles/Vol] 3.8 mmol/L Normal 3.5-5.1 [facility] Comment on above: Result Comment: [facility] potassium values may be up to 0.5 mmol/L lower than serum values. Performed By: #### L [id number] ####Phone Circuit Operator: GYPSY DAY ([id number])[facility] ([facility])[address] [place] [address] Protein [Mass/Vol] 4.9 g/dL Low 6.4-8.3 [facility] Comment on above: Performed By: #### L [id number] ####Phone Circuit Operator: GYPSY DAY ([phone])[facility] ([facility])[address] [place] [address] Sodium [Moles/Vol] 138 mmol/L Normal 136-145 [facility] Comment on above: Performed By: #### L [id number] ####Phone Circuit Operator: GYPSY DAY ([id number])[facility] ([facility])[address] [place] [address] Urea nitrogen [Mass/Vol] 9 mg/dL Normal 8-21 [facility] Comment on above: Performed By: #### L [id number] ####Phone Circuit Operator: GYPSY DAY ([phone])[facility])[address] [place] [address] Comprehensive metabolic 1998 panelon 10-13-2024 Albumin [Mass/Vol] 2.8 g/dL Low 3.5 - 5.0 g/dL [facility] ALP [Catalytic activity/Vol] 49 U/L 40 - 150 U/L [facility] ALT [Catalytic activity/Vol] 9 U/L NINF - 30 U/L [facility] Anion gap [Moles/Vol] 4 mmol/L 3 - 13 mmol/L [facility] AST [Catalytic activity/Vol] 14 U/L NINF - 34 U/L [facility] Bilirubin [Mass/Vol] 0.2 mg/dL NINF - 1.2 mg/dL [facility] Calcium [Mass/Vol] 7.9 mg/dL Low 8.4 - 10. 2 mg/dL [facility] Chloride [Moles/Vol] 110 mmol/L High 98 - 10 7 mmol/L [facility] CO2 [Moles/Vol] 24 mmol/L 22 - 29 mmol/L [facility] Creatinine [Mass/Vol] 0.6 mg/dL 0.57 - 1.11 mg/dL [facility] GFR/1.73 sq M.predicted (S/P/Bld) [Vol rate/Area] - PINF [facility] Comment on above: Calculation based on the Chronic Kidney Disease Epidemiology Collaboration (CKD-EPI) equation refit without adjustment for race Glucose [Mass/Vol] 96 mg/dL 74 - 100 mg/dL [facility] Interpretation and review of laboratory results Abnormal [facility] Potassium [Moles/Vol] 3.8 mmol/L 3.5 - 5.1 mmol/L [facility] Comment on above: Plasma potassium arsen ues may be up to 0.5 mmol/L lower than serum values. Protein [Mass/Vol] 4.9 g/dL Low 6.4 - 8.3 g/dL [facility] Sodium [Moles/Vol] 138 mmol/L 136 - 145 mmol/L [facility] Urea nitrogen [Mass/Vol] 9 mg/dL 8 - 21 mg/dL [facility] Guidance for paracentesis of Peritoneumon 10-13-2024 Insufficient fluid f or safe paracentesis. Report Dictated on Electronically Signed By: Yola Montiel MD Electronically Signed Date/Time: 10/13/2024 3:24 PM [facility] Patient Name: JOSE GAMEZ : [...] The procedure was terminated at this time. [facility] Keely Montiel MD - 10/13/2024 [...] Electronically Signed Date/Time: 10/13/2024 3:24 PM EDT [facility] Radiology Study observation (narrative) [facility] Guidance for paracentesis of PeritoneumOrdered By: Keely Montiel on 10-13-2024 [facility] [employer] Work Phone: Progress Noteon 10-13-2024 Progress Note ---- -------- Attestation signed by Gypsy Pelayo MD at 10/13/2024 8:34 AM Hospital Care (Independent): I independently saw and evaluated the patient. I agree with the findings and plan of care as documented in the resident's note. Stable labs and patient without complaints except for bloating. Abd mildly, softly distended. Awaiting paracentesis today. -------- [employer] Progress Note Date: 10/13/2024 Time: 6:11 AM [...] 500 mg, 500 mg, Oral, BID, Jade Carmona, DO, 500 mg at 10/12/241999 docusate sodium [...] 17 g, Oral, Daily PRN, Jade Ballard Dijck, DO sodium chloride 0.9 % infusion, 5-250 mL/hr, IntraVENous, PRN, Jade Ballard Dijck, DO sodium chloride 0.9% (NS) flush 5-40 mL, 5-40 mL, IntraVENous, q12h, Jade Peterjck, DO, 10 mL at 10/12/24 0400 sodium [...] - 1 (more content not included)... Normal [facility] US GUIDED ABDOMINAL PARACENT ESISon 10-13-2024 [...] Signed Date/Time: 10/13/2024 3:24 PM EDT Normal [facility] 30on 10-12-2024 30 Problem: Pain - [...] and maintained or improved Outcome: Progressing Normal [facility] CBC (HEMOGRAM)on 10-12-2024 Erythrocyte distribution width (RBC) [Ratio] 13.2 % Normal 11.5-15.0 [facility] Comment on above: Performed By: #### L [id number] ####Phone Circuit Operator: GYPSY DAY ([phone])[facility])[address] [place] [address] Hematocrit (Bld) [Volume fraction] 30.9 % Low 35.0-47.0 [facility] Comment on above: Performed By: #### L [id number] ####Phone Circuit Operator: GYPSY DAY ([id number])[facility])[address] [place] [address] Hemoglobin (Bld) [Mass/Vol] 10.1 g/dL Low 11.7-16.0 [facility] Comment on above: Performed By: #### L [id number] ####Phone Circuit Operator: GYPSY DAY ([id number])[address] IPF 2 Normal [facility] Comment on above: Performed By: #### L [id number] ####Phone Circuit Operator: GYPSY DAY ([id number])[facility])[address] [place] [address] MCH (RBC) [Entitic mass] 29.0 pg Normal 26.0-34.0 [facility] Comment on above: Performed By: #### L [id number] ####Phone Circuit Operator: GYPSY DAY ([phone])[address] MCHC 32.7 % Normal 30.5-36.0 [facility] Comment on above: Performed By: #### L [id number] ####Phone Circuit Operator: GYPSY DAY ([id number])[address] MCV (RBC) [Entitic vol] 88.8 fL Normal 77.0-99.0 [facility] Comment on above: Performed By: #### L [id number] ####Phone Circuit Operator: GYPSY DAY ([id number])[facility] ([facility])[address] [place] [address] Platelet mean volume (Bld) [Entitic vol] 9.5 fL Normal 9.0-12.7 [facility] Comment on above: Performed By: #### L [id number] ####Phone Circuit Operator: GYPSY DAY ([id number])[facility])[address] [place] [address] Platelets (Bld) [#/Vol] 292 10*3/uL Normal 140-440 [facility] Comment on above: Performed By: #### L [id number] ####Phone Circuit Operator: GYPSY DAY ([id number])[facility])[address] [place] [address] RBC (Bld) [#/Vol] 3.48 10*6/uL Low 3.80-5.20 [facility] Comment on above: Performed By: #### L [id number] ####Phone Circuit Operator: GYPSY DAY ([phone])[facility] ([facility])[address] [place] [address] WBC (Bld) [#/Vol] 19.6 10*3/uL High 3.6-10.7 [facility] Comment on above: Performed By: #### L [id number] ####Phone Circuit Operator: GYPSY DAY ([id number])[facility])[address] [place] [address] CBC panel Auto (Bld)on 10-12 Erythrocyte distribution width (RBC) [Ratio] 13.2 % 11.5 - 15.0 % [facility] Hematocrit (Bld) [Volume fraction] 30.9 % Low 35.0 - 47.0 % [facility] Hemoglobin (Bld) [Mass/Vol] 10.1 g/dL Low 11.7 - 16.0 g/dL [facility] Interpretation and review of laboratory results Abnormal [facility] IPF 2 [facility] MCH (RBC) [Entitic mass] 29 pg 26.0 - 34.0 pg [facility] MCHC (RBC) [Mass/Vol] 32.7 % 30.5 - 36.0 % [facility] MCV (RBC) [Entitic vol] 88.8 fL 77.0 - 99.0 fL [facility] Platelet mean volume (Bld) [Entitic vol] 9.5 fL 9.0 - 12.7 fL [facility] Platelets (Bld) [#/Vol] 292 10*3/uL 140 - 440 10*3/uL [facility] RBC (Bld) [#/Vol] 3.48 10*6/uL Low 3.80 - 5.2 0 10*6/uL [facility] WBC (Bld) [#/Vol] 19.6 10*3/uL High 3.6 - 10.7 10*3/uL [facility] COMPREHENSIVE METABOLIC PANE Mahendra 10-12-2024 Albumin [Mass/Vol] 3.2 g/dL Low 3.5-5.0 [facility] Comment on above: Performed By: #### L AB17 #### Phone Circuit Operator: GYPSY DAY ([phone]) [facility]) [address] [place] [address] ALP [Catalytic activity/Vol] 54 U/L Normal 40-150 [facility] Comment on above: Performed By: #### L AB17 #### Phone Circuit Operator: GYPSY DAY ([id number]) [facility]) [address] [place] [address] ALT [Catalytic activity/Vol] 11 U/L Normal <30 [facility] Comment on above: Performed By: #### L AB17 #### Phone Circuit Operator: GYPSY DAY ([id number]) [facility] ([facility]) [address] [place] [address] Anion gap [Moles/Vol] 5 mmol/L Normal 3-13 [facility] Comment on above: Performed By: #### L AB17 #### Phone Circuit Operator: GYPSY DAY ([phone]) [facility]) [address] [place] [address] AST [Catalytic activity/Vol] 16 U/L Normal <34 [facility] Comment on above: Performed By: #### L AB17 #### Phone Circuit Operator: GYPSY DAY ([phone]) [facility] ([facility]) [address] [place] [address] Bilirubin [Mass/Vol] 0.2 mg/dL Normal <1.2 [facility] Comment on above: Performed By: #### L AB17 #### Phone Circuit Operator: GYPSY DAY ([phone]) [facility] ([facility]) [address] [place] [address] Calcium [Mass/Vol] 8.2 mg/dL Low 8.4-10.2 [facility] Comment on above: Performed By: #### L AB17 #### Phone Circuit Operator: GYPSY DAY ([id number]) [facility]) [address] [place] [address] Chloride [Moles/Vol] 104 mmol/L Normal 98-107 [facility] Comment on above: Performed By: #### L AB17 #### Phone Circuit Operator: GYPSY DAY ([id number]) [facility] ([facility]) [address] [place] [address] CO2 [Moles/Vol] 24 mmol/L Normal 22-29 [facility] Comment on above: Performed By: #### L AB17 #### Phone Circuit Operator: GYPSY DAY ([phone]) [facility]) [address] [place] [address] Creatinine [Mass/Vol] 0.56 mg/dL Low 0.57-1.11 [facility] Comment on above: Performed By: #### L AB17 #### Phone Circuit Operator: GYPSY DAY ([id number]) [facility]) [address] [place] [address] GLOMERULAR FILTRATION RATE ML/MIN/1.73 SQ M.PREDICTED >90.0 Normal >60.0 [facility] Comment on above: Result Comment: Calc ulation based on the Chronic Kidney Disease Epidemiology Collaboration (CKD-EPI) equation refit without adjustment for race Performed By: #### L AB17 #### Phone Circuit Operator: GYPSY DAY ([phone]) [facility] ([facility]) [address] [place] [address] Glucose [Mass/Vol] 109 mg/dL High 74-100 [facility] Comment on above: Performed By: #### L AB17 #### Phone Circuit Operator: GYPSY DAY ([phone]) [facility] ([facility]) [address] [place] [address] Potassium [Moles/Vol] 3.6 mmol/L Normal 3.5-5.1 [facility] Comment on above: Result Comment: [facility] potassium values may be up to 0.5 mmol/L lower than serum values. Performed By: #### L AB17 #### Phone Circuit Operator: GYPSY DAY ([id number]) [facility] ([facility]) [address] [place] [address] Protein [Mass/Vol] 5.4 g/dL Low 6.4-8.3 [facility] Comment on above: Performed By: #### L AB17 #### Phone Circuit Operator: GYPSY DAY ([phone]) [facility] ([facility]) [address] [place] [address] Sodium [Moles/Vol] 133 mmol/L Low 136-145 [facility] Comment on above: Performed By: #### L AB17 #### Phone Circuit Operator: GYPSY DAY ([phone]) [facility]) [address] [place] [address] Urea nitrogen [Mass/Vol] 9 mg/dL Normal 8-21 [facility] Comment on above: Performed By: #### L [id number] #### Phone Circuit Operator: GYPSY DAY ([phone]) [facility] ([facility]) [address] [place] [address] Comprehensive metabolic 1998 panelon 10-12-2024 Albumin [Mass/Vol] 3.2 g/dL Low 3.5 - 5.0 g/dL [facility] ALP [Catalytic activity/Vol] 54 U/L 40 - 150 U/L [facility] ALT [Catalytic activity/Vol] 11 U/L NINF - 30 U/L [facility] Anion gap [Moles/Vol] 5 mmol/L 3 - 13 mmol/L [facility] AST [Catalytic activity/Vol] 16 U/L NINF - 34 U/L [facility] Bilirubin [Mass/Vol] 0.2 mg/dL NINF - 1.2 mg/dL [facility] Calcium [Mass/Vol] 8.2 mg/dL Low 8.4 - 10. 2 mg/dL [facility] Chloride [Moles/Vol] 104 mmol/L 98 - 10 7 mmol/L [facility] CO2 [Moles/Vol] 24 mmol/L 22 - 29 mmol/L [facility] Creatinine [Mass/Vol] 0.56 mg/dL Low 0.57 - 1.11 mg/dL [facility] GFR/1.73 sq M.predicted (S/P/Bld) [Vol rate/Area] - PINF [facility] Comment on above: Calculation based on the Chronic Kidney Disease Epidemiology Collaboration (CKD-EPI) equation refit without adjustment for race Glucose [Mass/Vol] 109 mg/dL High 74 - 100 mg/dL [facility] Interpretation and review of laboratory results Abnormal [facility] Potassium [Moles/Vol] 3.6 mmol/L 3.5 - 5.1 mmol/L [facility] Comment on above: Plasma potassium arsen ues may be up to 0.5 mmol/L lower than serum values. Protein [Mass/Vol] 5.4 g/dL Low 6.4 - 8.3 g/dL [facility] Sodium [Moles/Vol] 133 mmol/L Low 136 - 145 mmol/L [facility] Urea nitrogen [Mass/Vol] 9 mg/dL 8 - 21 mg/dL [facility] Laboratory - Coagulationon 0 10-12-2024 aPTT Coag (PPP) [Time] 26.3 s 20.0 - 30.5 s [facility] INR Coag (PPP) [Relative time] 0.9 {INR} 0.9 - 1.1 [facility] Comment on above: Recommended Anticoag ulant [...] [Time] 10.1 s 9.0 - 12.0 s [facility] No Panel Informationon 10-12 Interpretation and review of laboratory results Normal [facility] PROTIME AND APTTon aPTT Coag (Bld) [Time] 26.3 s Normal 20.0-30.5 [facility] Comment on above: Performed By: #### L [id number] ####Phone Circuit Operator: GYPSY DAY ([id number])[facility])[address] [place] [address] INR Coag (PPP) [Relative time] 0.9 {INR} Normal 0.9-1.1 [facility] Comment on above: Result Comment: Dwight [...] prevent Myocardial Infarction Performed By: #### L [id number] ####Phone Circuit Operator: GYPYS DAY ([phone])[facility])[address] [place] [address] PT Coag (PPP) [Time] 10.1 s Normal 9.0-12.0 [facility] Comment on above: Performed By: #### L [id number] ####Phone Circuit Operator: GYPSY DAY ([phone])[facility])[address] [place] [address] Absolute neutrophil countOrd ered By: Fern Marroquin on 10-11-2024 Neutrophils (Bld) [#/Vol] 19.6 10*3/uL High 2.0-7.7 [facility] Anion gap in Serum or Plasma Ordered By: Fern Marroquin on 10-11-2024 Anion gap [Moles/Vol] 12 mmol/L 5-15 [facility] BUN/creatinine ratioOrdered By: Remus Ungbraulio on 10-11-2024 Urea nitrogen/Creatinine [Mass ratio] 17.7 mg/mg 10- [facility] Bacteria LM.HPF (Urine sed) [#/Area]Ordered By: Remus Ungur on 10-11-2024 Urine Bacteria RARE /hpf None Seen [facility] Basic Metabolic Profile (BMP )on 10-11-2024 BUN/CRE 17.7 RATIO Normal - [facility] Comment on above: Performed By: #### L 500.2500, L100.0100, L700.6800 #### [facility] [address] [place], [address] Calcium [Mass/Vol] 9.1 mg/dL Normal 7.6-11.0 [facility] Comment on above: Performed By: #### L 500.2500, L100.0100, L700.6800 #### [facility] [address] [place], [address] Chloride [Moles/Vol] 102 mmol/L Normal 98-108 [facility] Comment on above: Performed By: #### L 500.2500, L100.0100, L700.6800 #### [facility] [address] [place], [address] CO2 [Moles/Vol] 21.9 mmol/L Normal 21.0-32.0 [facility] Comment on above: Performed By: #### L 500.2500, L100.0100, L700.6800 #### [facility] [address] [place], [address] Creatinine [Mass/Vol] 0.58 mg/dL Low 0.70-1.20 [facility] Comment on above: Performed By: #### L 500.2500, L100.0100, L700.6800 #### [facility] [address] [place], [address] ECRCL 147.18 ml/min Normal 50-250 [facility] Comment on above: Performed By: #### L 500.2500, L100.0100, L700.6800 #### [facility] [address] [place], [address] GAP 12 Normal 5-15 [facility] Comment on above: Performed By: #### L 500.2500, L100.0100, L700.6800 #### [facility] [address] [place], [address] GFR/1.73 sq M.predicted among non-blacks MDRD (S/P/Bld) [Vol rate/Area] 127 mL/min/{1.73_m2} Normal >60 [facility] Comment on above: Result Comment: mL/m in/1.73m2 CKD-EPI Creatinine Equation (2020) Performed By: #### L 500.2500, L100.0100, L700.6800 #### [facility] [address] [place], [address] Glucose [Mass/Vol] 139 mg/dL High 70-99 [facility] Comment on above: Performed By: #### L 500.2500, L100.0100, L700.6800 #### [facility] [address] [place], [address] Potassium [Moles/Vol] 4.1 mmol/L Normal 3.3-5.1 [facility] Comment on above: Performed By: #### L 500.2500, L100.0100, L700.6800 #### [facility] [address] [place], [address] Sodium [Moles/Vol] 136 mmol/L Normal 133-145 [facility] Comment on above: Performed By: #### L 500.2500, L100.0100, L700.6800 #### [facility] [address] [place], [address] Urea nitrogen [Mass/Vol] 10 mg/dL Normal 4-19 [facility] Comment on above: Performed By: #### L 500.2500, L100.0100, L700.6800 #### [facility] [address] [place], [address] Basophil percentageOrdered B y: Fern Lopez on 10-11-2024 Basophils/100 WBC (Bld) 0.1 % 0-1 [facility] Beta HCG ( test) Ql Ordered By: Fern Lopez on 10-11-2024 Serum Test, Qualitative Negative [facility] Bilirubin Test strip Ql (U)O rdered By: Fern Zazuetabraulio on 10-11-2024 Bilirubin Ql (U) 1 mg/dL High Negative [facility] Comment on above: COLOR OF URINE MAY A FFECT DIPSTICK RESULTS. CBC W/Diff, Automatedon 10-01 Absolute Lymph 1.84 X10 3/uL Normal 0.83-4.51 [facility] Comment on above: Performed By: #### L 500.2500, L100.0100, L700.6800 #### [facility] [address] [place], [address] Absolute Neut 19.6 X10 3/uL High 2.0-7.7 [facility] Comment on above: Performed By: #### L 500.2500, L100.0100, L700.6800 #### [facility] [address] [place], [address] Basophils/100 WBC (Bld) 0.1 % Normal 0-1 [facility] Comment on above: Performed By: #### L 500.2500, L100.0100, L700.6800 #### [facility] [address] [place], [address] Eosinophils/100 WBC (Bld) 0.0 % Normal 0-5 [facility] Comment on above: Performed By: #### L 500.2500, L100.0100, L700.6800 #### [facility] [address] [place], [address] Erythrocyte distribution width (RBC) [Ratio] 12.9 % Normal 11.6-14.6 [facility] [facility] Comment on above: Performed By: #### L 500.2500, L100.0100, L700.6800 #### [facility] [address] [place], [address] Hematocrit (Bld) [Volume fraction] 34.0 % Low 37-47 [facility] Comment on above: Performed By: #### L 500.2500, L100.0100, L700.6800 #### [facility] [address] [place], [address] Hemoglobin (Bld) [Mass/Vol] 11.6 g/dL Low 12.0-15.0 [facility] Comment on above: Performed By: #### L 500.2500, L100.0100, L700.6800 #### [facility] [address] [place], [address] IG% 0.600 Normal 0.0-0.9 [facility] Comment on above: Result Comment: IG% - Immature Granulocytes (promyelocytes, myelocytes and metamyelocytes) > 1% indicates that a LEFT SHIFT is Present. Performed By: #### L 500.2500, L100.0100, L700.6800 #### [facility] [address] [place], [address] Lymphocytes/100 WBC (Bld) 8.2 % Low 19-41 [facility] Comment on above: Performed By: #### L 500.2500, L100.0100, L700.6800 #### [facility] [address] [place], [address] MCH (RBC) [Entitic mass] 30.1 pg Normal 27.0-32.0 [facility] Comment on above: Performed By: #### L 500.2500, L100.0100, L700.6800 #### [facility] [address] [place], [address] MCHC (RBC) [Mass/Vol] 34.1 g/dL Normal 32-36 [facility] Comment on above: Performed By: #### L 500.2500, L100.0100, L700.6800 #### [facility] [address] [place], [address] MCV (RBC) [Entitic vol] 88.3 fL Normal 81-99 [facility] Comment on above: Performed By: #### L 500.2500, L100.0100, L700.6800 #### [facility] [address] [place], [address] Monocytes/100 WBC (Bld) 4.0 % Normal 0-10 [facility] Comment on above: Performed By: #### L 500.2500, L100.0100, L700.6800 #### [facility] [address] [place], [address] Neutrophils/100 WBC (Bld) 87.1 % High 47-70 [facility] Comment on above: Performed By: #### L 500.2500, L100.0100, L700.6800 #### [facility] [address] [place], [address] Nucleated RBC (Bld) [#/Vol] 0 10*3/uL Normal 0-5 [facility] Comment on above: Performed By: #### L 500.2500, L100.0100, L700.6800 #### [facility] [address] [place], [address] Platelet mean volume (Bld) [Entitic vol] 9.2 fL Normal 6.2-12.0 [facility] Comment on above: Performed By: #### L 500.2500, L100.0100, L700.6800 #### [facility] [address] [place], [address] Platelets (Bld) [#/Vol] 321 10*3/uL Normal 150-450 [facility] Comment on above: Performed By: #### L 500.2500, L100.0100, L700.6800 #### [facility] [address] [place], [address] RBC (Bld) [#/Vol] 3.85 10*6/uL Low 4.2-5.[address] [facility] Comment on above: Performed By: #### L 500.2500, L100.0100, L700.6800 #### [facility] [address] [place], [address] RDW SD 41.7 fl Normal 35.1-43.9 [facility] Comment on above: Performed By: #### L 500.2500, L100.0100, L700.6800 #### [facility] [address] [place], [address] WBC (Bld) [#/Vol] 22.5 10*3/uL High 4.4-11.[address] [facility] Comment on above: Performed By: #### L 500.2500, L100.0100, L700.6800 #### [facility] [address] [place], [address] CTA Chst, Abd, Pel W and/or WOon 10-11-2024 CTA Chst, Abd, Pel W and/or WO [facility] Imaging Services [address] [place] [address] CTA Chst, Abd, Pel W and/or WO MR#: [id number] Acct: [id number] Name: JOSE EDWARD Rep #: [id number] : 1995 F 29 From: Daisha Hutchins nd, MD PCP: CEHRYL Samano Status: REG ER Study: CTA Chst, Abd, Pel W and/or WO Date of Exam: 0 10/11/24 Exam# [id number] Ordering Dr: Fern Marroquin DO PROCEDURE: CTA [...] compatible with ovarian hyperstimulation syndrome. Reading Location: [facility] CC: Dr. Fern Marroquin DO; CHERYL Samano Professor Of Violin: Signed Normal [facility] Carbon dioxide, total [Moles /volume] in Central venous bloodOrdered By: Fern Marroquin on 10-11-2024 CO2 [Moles/Vol] 21.9 mmol/L 21.0-32.0 [facility] Chloride assayOrdered By: Delma Marroquin on 10-11-2024 Chloride [Moles/Vol] 102 mmol/L 98-108 [facility] Emergency Department Summary on 10-11-2024 Emergency Department Summary [facility] Medical Records Department [address] [place] [address] Emergency Department Summary 10/11/24 MR#: [id number] Acct: [id number] Name: JOSE EDWARD Rep #: [id number] : 1995 29 From: Fern Marroquin DO PCP: CHERYL Samano Status:REG ER Location: ED HPI History of Present Illness Chief Complaint: Shortness of Breath Detail of Chief Complaint: Shortness of breath and abdominal pain Informant: patient Narrative Narrative: Patient presents to the emergency department complaint shortness of breath and abdominal pain that started this morning. Patient states that she had driven to [facility] this morning to have egg retrieval at [...] No prior history of PE or DVT [facility] Medical History Abnormal uterine bleeding [...] ea 02/28/24 Unknown Rx (FreeStyle Lexi 2 Richey) flash glucose sensor (FreeStyle #1 ea 02/28/24 Unknown Rx Lexi 2 Sensor kit) PNV no.151-iron 27 mg-folic 800 1 cap PO DAILY 10/11/24 Unknown Hi story mcg-omega3 260 [id number]-fish capsule ( Multi-DHA (with vitamin K)) cabergoline [...] Diabetes Uncle Diabetes Grandmother Diabetes Surgical History [place] teeth extracted History of hysteroscopy Status post laparoscopy S/P D C (status post dilation and curettage) Hx of lumpectomy History of tonsillectomy and adenoidectomy Social History adopted: No household members: spouse number of children: 0 current occupational status: employed current occupation: [employer] current occupational exposures/hazards: No pets and animals: Yes (Avoid litterbox) pets and animals: cat(s) and dog(s) history of recent travel: Yes ([facility]) out of state: Yes out of country: No sexually active: Yes Smoking Status: Former smoker Electronic Cigarette Use: with nicotine alcohol intake: never substance use type: does not use well-balanced diet: daily or most days caffeine: No eating out: 1-3 times/week during the past year weight has: increased > 10 lbs what type of physical activity do you participate in: none jessica/faith: Hinduism seatbelt use: always do you feel safe at home: Yes additional social history: - Rene- Chuck ROS ROS ED Review of Systems ROS Unobtainable: other Constitutional Constitutional ED: Reports lethargy; Denies chills, fever(s), sweats or weight loss Eyes Eyes: Denie (more content not included)... Normal [facility] Eosinophil percentageOrdered By: Fern Marroquin on 10-11-2024 Eosinophils/100 WBC (Bld) 0.0 % 0-5 [facility] Epithelial cells.squamous LM Ql (Urine sed)Ordered By: Fern Marroquin on 10-11-2024 Epithelial cells.squamous LM.HPF (Urine sed) [#/Area] 0 /[HPF] 5-10 [facility] Erythrocyte distribution wid th (RBC) [Ratio]Ordered By: Fern Marroquin on 10-11-2024 Erythrocyte distribution width (RBC) [Entitic vol] 41.7 fL 35.1-43.9 [facility] Erythrocyte distribution wid th ratioOrdered By: Fern Marroquin on 10-11-2024 Erythrocyte distribution width (RBC) [Ratio] 12.9 % 11.6-14.6 [facility] Estimation of creatinine rory aranceOrdered By: Fern Marroquin on 10-11-2024 Estimated Creatinine Clearance Calc 147.18 ml/min 50-250 [facility] GFR/1.73 sq M.predicted checo g non-blacks MDRD (S/P/Bld) [Vol rate/Area]Ordered By: Fern Marroquin on 10-11-2024 Estimated GFR (MDRD) Non-Af Amer 127 >60 [facility] Comment on above: mL/min/1.73m2 CKD-EP I Creatinine Equation (2020) Glucose Ql (U)Ordered By: Delma Marroquin on 10-11-2024 Urine Glucose (UA) Normal mg/dl Normal [facility] Hematocrit Auto (Bld) [Volum e fraction]Ordered By: Fern Marroquin on 10-11-2024 Hematocrit (Bld) [Volume fraction] 34.0 % Low 37-47 [facility] Hemoglobin measurementOrdere d By: Fern Marroquin on 10-11-2024 Hemoglobin (Bld) [Mass/Vol] 11.6 g/dL Low 12.0-15.0 [facility] Immature granulocytes/100 WB C Auto (Bld)Ordered By: Fern Marroquin 10-11-2024 Immature granulocytes/100 WBC (Bld) 0.600 % 0.0-0.9 [facility] Comment on above: IG% - Immature Granu locytes (promyelocytes, myelocytes and metamyelocytes) > 1% indicates that a LEFT SHIFT is Present. Ketones Test strip Ql (U)Ord ered By: Fern Marroquin on 10-11-2024 Ketones Ql (U) Negative Negative [facility] Lymphocytes Auto (Unsp spec) [#/Vol]Ordered By: Fern Marroquin on 10-11-2024 Lymphocytes (Bld) [#/Vol] 1.84 10*3/uL 0.83-4.51 [facility] Lymphocytes/100 WBC Auto (Un sp spec)Ordered By: Fern Marroquin on 10-11-2024 Lymphocytes/100 WBC (Bld) 8.2 % Low 19-41 [facility] MCV (mean corpuscular volume ) determinationOrdered By: Fern Marroquin on 10-11-2024 MCV (RBC) [Entitic vol] 88.3 fL 81-99 [facility] Mean corpuscular hemoglobin (MCH) determinationOrdered By: Fern Marroquin on 10-11-2024 MCH (RBC) [Entitic mass] 30.1 pg 27.0-32.0 [facility] Mean corpuscular hemoglobin concentration (MCHC) determinationOrdered By: Fern Marroquin on 10-11-2024 MCHC (RBC) [Mass/Vol] 34.1 g/dL 32-36 [facility] Mean platelet volume determi nationOrdered By: Fern Marroquin on 10-11-2024 Platelet mean volume (Bld) [Entitic vol] 9.2 fL 6.2-12.0 [facility] Microscopic analysis of urin e for red blood cells (RBC)Ordered By: Fern Marroquin on 10-11-2024 Urine RBC 0 SEEN /hpf 0-5 [facility] Monocyte percentageOrdered B y: Fern Marroquin on 10-11-2024 Monocytes/100 WBC (Bld) 4.0 % 0-10 [facility] Mucus LM Ql (Urine sed)Order ed By: Fern Marroquin on 10-11-2024 Mucus Ql (Urine sed) 0 SEEN /hpf [facility] Neutrophil percentageOrdered By: Fern Marroquin on 10-11-2024 Neutrophils/100 WBC (Bld) 87.1 % High 47-70 [facility] Nitrite Test strip Ql (U)Ord ered By: Fern Marroquin on 10-11-2024 Nitrite Ql (U) Positive High Negative [facility] Nucleated red blood cell per centageOrdered By: Fern Marroquin on 10-11-2024 Nucleated RBC/100 WBC (Bld) [Ratio] 0 % 0-5 [facility] Platelet countOrdered By: Delma Marroquin on 10-11-2024 Platelets (Bld) [#/Vol] 321 10*3/uL 150-450 [facility] Potassium (Unsp spec) [Mass/ Vol]Ordered By: Fern Marroquin on 10-11-2024 Potassium [Moles/Vol] 4.1 mmol/L 3.3-5.1 [facility] ,Serum,hCG Quali.on 10-11-2024 HCG, SERUM QUAL Negative Normal [facility] Comment on above: Performed By: #### L 500.2500, L100.0100, L700.6800 #### [facility] [address] [place], [address] Protein Test strip Ql (U)Ord ered By: Fern Marroquin on 10-11-2024 Protein Ql (U) 30 mg/dl High Negative [facility] RBC Auto (Bld) [#/Vol]Ordere d By: Fern Marroquin on 10-11-2024 RBC (Bld) [#/Vol] 3.85 10*6/uL Low 4.2-5.[address] [facility] Serum creatinine measurement (mass/volume)Ordered By: Fern Marroquin on 10-11-2024 Creatinine [Mass/Vol] 0.58 mg/dL Low 0.70-1.20 [facility] Serum glucose measurement (m ass/volume)Ordered By: Fern Marroquin on 10-11-2024 Glucose [Mass/Vol] 139 mg/dL High 70-99 [facility] Serum or plasma calcium shannon urement (mass/volume)Ordered By: Fern Marroquin on 10-11-2024 Calcium [Mass/Vol] 9.1 mg/dL 7.6-11.0 [facility] Serum or plasma urea nitroge n measurement (mass/volume)Ordered By: Fern Marroquin on 10-11-2024 Urea nitrogen [Mass/Vol] 10 mg/dL 4-19 [facility] Sodium levelOrdered By: Juliann Marroquin on 10-11-2024 Sodium [Moles/Vol] 136 mmol/L 133-145 [facility] Urinalysis, Completeon 10-11 BACTERIA RARE Normal None Seen [facility] Comment on above: Order Comment: EDWARD CTOR TO SPECIFY Performed By: #### L 500.2500, L100.0100, L700.6800 #### [facility] [address] [place], [address] EPI,SQUAMOUS 0 SEEN Normal 5-10 [facility] Comment on above: Order Comment: EDWARD CTOR TO SPECIFY Performed By: #### L 500.2500, L100.0100, L700.6800 #### [facility] [address] [place], [address] Mucus Ql (Urine sed) 0 SEEN Normal [facility] Comment on above: Order Comment: EDWARD CTOR TO SPECIFY Performed By: #### L 500.2500, L100.0100, L700.6800 #### [facility] [address] [place], [address] RBC 0 SEEN Normal 0-5 [facility] Comment on above: Order Comment: EDWARD CTOR TO SPECIFY Performed By: #### L 500.2500, L100.0100, L700.6800 #### [facility] [address] [place], [address] WBC 0 SEEN Normal 0-5 [facility] Comment on above: Order Comment: EDWARD CTOR TO SPECIFY Performed By: #### L 500.2500, L100.0100, L700.6800 #### [facility] [address] [place], [address] Urine blood detectionOrdered By: Cyndius Lopez on 10-11-2024 Urine Occult Blood 150 /ul High Negative [facility] Urine clarityOrdered By: Cyndi Marroquin on 10-11-2024 Clarity (U) Clear Clear [facility] Urine color determinationOrd ered By: Fern Marroquin on 10-11-2024 Color (U) Yellow Yellow [facility] Urine leukocyte esterase det ection by dipstickOrdered By: Fern Marroquin on 10-11-2024 Leukocyte esterase Test strip Ql (U) Negative Negative [facility] Urine pHOrdered By: Fern Winters gur on 10-11-2024 pH (U) 7.0 [pH] 5.0 - 8.0 [facility] Urine specific gravity measu rementOrdered By: Fern Marroquin on 10-11-2024 Specific gravity (U) [Rel density] 1.010 1.002-1.030 [facility] Urobilinogen Ql (U)Ordered B y: Fern Marroquin on 10-11-2024 Urobilinogen (U) [Mass/Vol] 4 mg/dL High Normal [facility] White blood cell (WBC) count Ordered By: Fern Marroquin on 10-11-2024 WBC (Bld) [#/Vol] 22.5 10*3/uL High 4.4-11.[address] [facility] White blood cell countOrdere d By: Fern Marroquin on 10-11-2024 Urine WBC 0 SEEN /hpf 0-5 [facility] E2on 10-07-2024 Estradiol Level 1333.35 pg/mL Normal [facility] Comment on above: Result Comment: No te - New Reference Range in effect 20 Adult Female E2 Reference Ranges: Follicular phase 19.5 - 144.2 pg/mL Midcycle 63.9 - 356.7 pg/mL Luteal phase 55.8 - 214.2 pg/mL Post menopausal 0 - 33.2 pg/mL Performed By: #### P LATRICE, E2, LH #### [place] [address] LHon 10-07-2024 LH 3.9 mIU/mL Kevin MILLAN Comment on above: Result Comment: No te - New Reference Range in effect 20 Adult Female LH Reference Ranges: Follicular phase 1.9 - 12.5 mIU/mL Midcycle phase 8.7 - 76.3 mIU/mL Luteal phase 0.5 - 16.9 mIU/mL Post menopausal 5.0 - 55.2 mIU/mL Performed By: #### P LATRICE, E2, LH #### [place] [address] [place] [address] PROGon 10-07-2024 Progesterone Level 0.9 ng/mL Normal [...] By: #### P LATRICE, E2, LH #### [facility] [address] [place] [address] HIV - WCHon 08-20-2024 HIV Non-Reactive Normal Nonreactive [facility] Comment on above: Performed By: #### L 509.4005, L3890.6300, L509.8000, L3400.0005, L3890.6100, L3890.6005 #### [facility] [address] [place], [address] Antimullerian Hormone, Serum on 08-19-2024 AMH, SERUM 6.59 ng/mL Normal . [facility] Comment on above: Result Comment: For assays employing antibodies, the possibility exists for interference by heterophile antibodies in the samples.1 1.Anthony Khan. Interferences in Immunoassays - still a threat. Clin. Chem. 2000; 46: 8946-7453. This test was developed and its performance characteristics determined by [employer]. It has not been cleared or approved by the Food and Drug Administration. Reference Range: Females 26 - 30y: 1.03 - 11.10 Median 4.20 AMH concentrations of >= 1.06 ng/mL is correlated with a better response to ovarian stimulation, produced more retrievable oocytes and higher odds of live according to Isaaker et al. Fertility and Sterility. 2010: 94:2277-2667. The current AMH test method correlates with [...] AMH-secreting ovarian tumor. Performed By: #### L 500.2500, L100.0100, L700.6800 #### [facility] [address] [place], [place], [address] PROLACTIN 4465on 08-19-2024 PROLACTIN 21.9 ng/mL Normal 4.8-33.4 [facility] Comment on above: Result Comment: Perf ormed at: [facility] [address] [place] [id number] Carpenter/Labor: Mik eJrez MD, Phone: [phone] Performed at: [employer] [id number] Carpenter/Labor: Heri Louis PhD, Phone: [phone] Performed By: #### L 500.2500, L100.0100, L700.6800 #### [facility] [address] [facility] [place], [place], [address] L3400.0005on 08-16-2024 V ZOSTER IgG Reactive Normal Non Reactive [facility] Comment on above: Result Comment: Pl ease note reference interval change A Reactive result is considered evidence of immunity to VZV. Reactive indicates that VZV IgG was detected consistent with previous infection and/or vaccination. A Non Reactive result indicates that VZV IgG was not detected suggesting that immunity has not been acquired. Performed at: [employer] [id number] Carpenter/Labor: Heri Louis PhD, Phone: [phone] Performed By: #### L 509.4005, L3890.6300, L509.8000, L3400.0005, L3890.6100, L3890.6005 #### [facility] [address] [place], [address] 09-QZ-Pfrwvty DOrdered By: Ziggy Villareal on 08-15-2024 Vitamin D 25-Hydroxy 28.5 ng/mL [facility] Comment on above: Vitamin D 25(OH) Sta tus Range Deficiency <20 ng/mL (50nmol/L) Insufficiency 20 - 30 ng/mL (50 - 75 nmol/L) Sufficiency 30 - 100 ng/mL (75 - 250 nmol/L) Toxicity >100 ng/mL (>250 nmol/L) Albumin to globulin ratioOrd ered By: Julianna Villareal on 08-15-2024 Albumin/Globulin [Mass ratio] 1.3 {ratio} 0.9-2.4 [facility] Bilirubin, totalOrdered By: Julianna Villareal on 08-15-2024 Bilirubin [Mass/Vol] 0.50 mg/dL 0.20-1.00 [facility] Comment on above: For patients on eltr ombopag therapy, use of Dimension [place] TBIL is not recommended. Blood urea nitrogen (BUN)/cr eatinine ratioOrdered By: Julianna Villareal on 08-15-2024 Urea nitrogen/Creatinine [Mass ratio] 16.3 mg/mg 10-20 [facility] CBC-Complete Blood Cnt No Di ffon 08-15-2024 Erythrocyte distribution width (RBC) [Ratio] 12.9 % Normal 11.6-14.6 [facility] Comment on above: Performed By: #### L 500.2500, L100.0100, L700.6800 #### [facility] [address] [place], [address] Hematocrit (Bld) [Volume fraction] 44.4 % Normal 37-47 [facility] Comment on above: Performed By: #### L 500.2500, L100.0100, L700.6800 #### [facility] [address] [place], [address] Hemoglobin (Bld) [Mass/Vol] 14.8 g/dL Normal 12.0-15.0 [facility] Comment on above: Performed By: #### L 500.2500, L100.0100, L700.6800 #### [facility] [address] [place], [address] MCH (RBC) [Entitic mass] 29.4 pg Normal 27.0-32.0 [facility] Comment on above: Performed By: #### L 500.2500, L100.0100, L700.6800 #### [facility] [address] [place], [address] MCHC (RBC) [Mass/Vol] 33.3 g/dL Normal 32-36 [facility] Comment on above: Performed By: #### L 500.2500, L100.0100, L700.6800 #### [facility] [address] [place], [address] MCV (RBC) [Entitic vol] 88.3 fL Normal 81-99 [facility] Comment on above: Performed By: #### L 500.2500, L100.0100, L700.6800 #### [facility] [address] [place], [address] Platelet mean volume (Bld) [Entitic vol] 9.7 fL Normal 6.2-12.0 [facility] Comment on above: Performed By: #### L 500.2500, L100.0100, L700.6800 #### [facility] [address] [place], [address] Platelets (Bld) [#/Vol] 304 10*3/uL Normal 150-450 [facility] Comment on above: Performed By: #### L 500.2500, L100.0100, L700.6800 #### [facility] [address] [place], [address] RBC (Bld) [#/Vol] 5.03 10*6/uL Normal 4.2-5.[address] [facility] Comment on above: Performed By: #### L 500.2500, L100.0100, L700.6800 #### [facility] [address] [place], [address] RDW SD 41.4 fl Normal 35.1-43.9 [facility] Comment on above: Performed By: #### L 500.2500, L100.0100, L700.6800 #### [facility] [address] [place], [address] WBC (Bld) [#/Vol] 6.2 10*3/uL Normal 4.4-11.0 [facility] Comment on above: Performed By: #### L 500.2500, L100.0100, L700.6800 #### [facility] [address] [place], [address] Carbon dioxide measurementOr dered By: Julianna Villareal on 08-15-2024 CO2 [Moles/Vol] 25.0 mmol/L 21.0-32.0 [facility] Chloride measurementOrdered By: Julianna Villareal on 08-15-2024 Chloride [Moles/Vol] 106 mmol/L 98-107 [facility] Comprehensive Metabolic Prof ilon 08-15-2024 Albumin [Mass/Vol] 4.2 g/dL Normal 3.2-5.0 [facility] Comment on above: Performed By: #### L 500.2500, L100.0100, L700.6800 #### [facility] [address] [place], [address] Albumin/Globulin [Mass ratio] 1.3 {ratio} Normal 0.9-2.4 [facility] Comment on above: Performed By: #### L 500.2500, L100.0100, L700.6800 #### [facility] [address] [place], [address] ALK P 96 U/L Normal 45-117 [facility] Comment on above: Performed By: #### L 500.2500, L100.0100, L700.6800 #### [facility] [address] [place], [address] ALT [Catalytic activity/Vol] 22 U/L Normal 13-56 [facility] Comment on above: Performed By: #### L 500.2500, L100.0100, L700.6800 #### [facility] [address] [place], [address] AST [Catalytic activity/Vol] 15 U/L Normal 15-37 [facility] Comment on above: Performed By: #### L 500.2500, L100.0100, L700.6800 #### [facility] [address] [place], [address] Bilirubin [Mass/Vol] 0.50 mg/dL Normal 0.20-1.00 [facility] Comment on above: Result Comment: For patients on eltrombopag therapy, use of Dimension [place] TBIL is not recommended. Performed By: #### L 500.2500, L100.0100, L700.6800 #### [facility] [address] [place], [address] BUN/CRE 16.3 RATIO Normal 10-20 [facility] Comment on above: Performed By: #### L 500.2500, L100.0100, L700.6800 #### [facility] [address] [place], [address] CA,Total 9.5 mg/dL Normal 8.5-10.1 [facility] Comment on above: Performed By: #### L 500.2500, L100.0100, L700.6800 #### [facility] [address] [place], [address] Chloride [Moles/Vol] 106 mmol/L Normal 98-107 [facility] Comment on above: Performed By: #### L 500.2500, L100.0100, L700.6800 #### [facility] [address] [place], [address] CO2 [Moles/Vol] 25.0 mmol/L Normal 21.0-32.0 [facility] Comment on above: Performed By: #### L 500.2500, L100.0100, L700.6800 #### [facility] [address] [place], [address] Creatinine [Mass/Vol] 0.55 mg/dL Normal 0.55-1.02 [facility] Comment on above: Result Comment: The validity of the calculated GFR GFRAA in patients over 70 years has not been determined. Clinical correlation is essential. Performed By: #### L 500.2500, L100.0100, L700.6800 #### [facility] [address] [place], [address] EST GFR - AA 170 mL/min Normal >60 [facility] Comment on above: Result Comment: Afri can Cymraes GFR Calc Performed By: #### L 500.2500, L100.0100, L700.6800 #### [facility] [address] [place], [address] GAP 7 Normal 5-15 [facility] Comment on above: Performed By: #### L 500.2500, L100.0100, L700.6800 #### [facility] [address] [place], [address] GFR/1.73 sq M.predicted among non-blacks MDRD (S/P/Bld) [Vol rate/Area] 140 mL/min/{1.73_m2} Normal >60 [facility] Comment on above: Result Comment: Non- GFR Calc Performed By: #### L 500.2500, L100.0100, L700.6800 #### [facility] [address] [place], [address] Globulin (S) [Mass/Vol] 3.2 g/dL Normal 2.2-4.2 [facility] Comment on above: Performed By: #### L 500.2500, L100.0100, L700.6800 #### [facility] [address] [place], [address] Glucose [Mass/Vol] 98 mg/dL Normal 74-106 [facility] Comment on above: Performed By: #### L 500.2500, L100.0100, L700.6800 #### [facility] [address] [place], [address] Potassium [Moles/Vol] 3.8 mmol/L Normal 3.5-5.1 [facility] Comment on above: Performed By: #### L 500.2500, L100.0100, L700.6800 #### [facility] [address] [place], [address] Sodium [Moles/Vol] 138 mmol/L Normal 136-145 [facility] Comment on above: Performed By: #### L 500.2500, L100.0100, L700.6800 #### [facility] [address] [place], [address] T PROT 7.4 g/dL Normal 6.4-8.2 [facility] Comment on above: Performed By: #### L 500.2500, L100.0100, L700.6800 #### [facility] [address] [place], [address] Urea nitrogen [Mass/Vol] 9 mg/dL Normal 7-18 [facility] Comment on above: Performed By: #### L 500.2500, L100.0100, L700.6800 #### [facility] [address] [place], [address] Erythrocyte distribution wid th (RBC) [Ratio]Ordered By: Julianna Villareal on 08-15-2024 Erythrocyte distribution width (RBC) [Entitic vol] 41.4 fL 35.1-43.9 [facility] Erythrocyte distribution wid th ratioOrdered By: Julianna Villareal on 08-15-2024 Erythrocyte distribution width (RBC) [Ratio] 12.9 % 11.6-14.6 [facility] Estimated glomerular filtrat ion rate (GFR) AmericanOrdered By: Julianna Villareal on 08-15-2024 Estimated GFR (MDRD) Amer 170 mL/min >60 [facility] Comment on above: GFR Calc Flecainide [Mass/Vol]Ordered By: Julianna Villareal on 08-15-2024 Anti-Mullerian Hormone 6.59 ng/mL . [facility] Comment on above: For assays employing antibodies, the possibility exists forinterference by heterophile antibodies in the samples.11.Anthony Richard Interferences in Immunoassays - still a threat. Clin. Chem. 2000; 46: 6504-9298.This test was developed and its performance characteristicsdetermined by [employer]. It has not been cleared or approvedby the Food and Drug Administration.Reference Range:Females 26 - 30y: 1.03 - 11.10Median 4.20AMH concentrations of >= 1.06 ng/mL is correlated with abetter response to ovarian stimulation, produced moreretrievable oocytes and higher odds of live accordingto Stacey et al. Fertility and Sterility. 2010:94:2868-2429. The current AMH test method correlates withthe [...] GFR (MDRD) Non-Af Amer 140 mL/min >60 [facility] Comment on above: Non- GFR Calc Glucose measurementOrdered B y: Julianna Mono on 08-15-2024 Glucose [Mass/Vol] 98 mg/dL 74-106 [facility] HIV 1+2 Ab+HIV1 p24 Ag IA Ql Ordered By: Julianna Villareal on 08-15-2024 HIV (1&2) Antibody Non-Reactive Nonreactive [facility] Hematocrit Auto (Bld) [Volum e fraction]Ordered By: Julianna Villareal on 08-15-2024 Hematocrit (Bld) [Volume fraction] 44.4 % 37-47 [facility] Hemoglobin measurementOrdere d By: Julianna Villareal on 08-15-2024 Hemoglobin (Bld) [Mass/Vol] 14.8 g/dL 12.0-15.0 [facility] Hepatitis B Surface Antigeno n 08-15-2024 HEP B Surf Ag Non-Reactive [facility] Comment on above: Performed By: #### L 509.4005, L3890.6300, L509.8000, L3400.0005, L3890.6100, L3890.6005 #### [facility] [address] [facility] [place], [address] Hepatitis B surface antigen detectionOrdered By: Julianna Villareal on 08-15-2024 Hepatitis B Surface Antigen Non-Reactive Nonreactive [facility] Hepatitis C Antibodyon 08-15 Hepatitis C AB Non-Reactive [facility] Comment on above: Result Comment: Non Reactive: < 0.8 Equivocal: >/= 0.8 to < 1.0 Reactive: >/= 1.0 The CDC requires that a reactive/equivocal HCV antibody result be sent out for confirmation. HCV Quant by PCR testing. Performed By: #### L 509.4005, L3890.6300, L509.8000, L3400.0005, L3890.6100, L3890.6005 #### [facility] [address] [place], [address] Hepatitis C virus antibody a ssayOrdered By: Julianna Villareal on 08-15-2024 Hepatitis C Antibody Non-Reactive Nonreactive [facility] Comment on above: Non Reactive: < 0.8 Equivocal: >/= 0.8 to < 1.0 Reactive: >/= 1.0The [facility] requires that a reactive/equivocal HCV antibody result be sent out for confirmation. HCV Quant by PCR testing. L509.8000on 08-15-2024 Syphilis Abs Non-Reactive Normal [facility] Comment on above: Performed By: #### L 509.4005, L3890.6300, L509.8000, L3400.0005, L3890.6100, L3890.6005 #### [facility] [address] [place], [address] Laboratory - Chemistry and C hemistry - challengeOrdered By: Julianna Villareal on 08-15-2024 AST [Catalytic activity/Vol] 15 U/L 15-37 [facility] MCV (mean corpuscular volume ) determinationOrdered By: Julianna Villareal on 08-15-2024 MCV (RBC) [Entitic vol] 88.3 fL 81-99 [facility] Mean corpuscular hemoglobin (MCH) determinationOrdered By: Julianna Villareal on 08-15-2024 MCH (RBC) [Entitic mass] 29.4 pg 27.0-32.0 [facility] Mean corpuscular hemoglobin concentration (MCHC) determinationOrdered By: Julianna Villareal on 08-15-2024 MCHC (RBC) [Mass/Vol] 33.3 g/dL 32-36 [facility] Mean platelet volume determi nationOrdered By: Julianna Villareal on 08-15-2024 Platelet mean volume (Bld) [Entitic vol] 9.7 fL 6.2-12.0 [facility] Pelvis W/WO Contraston 08-15 Pelvis W/WO Contrast [facility] [address] [place], [place] [id number] Pelvis W/WO Contrast MR#: [id number] Acct: [id number] Name: JOSE EDWARD Rep #: [id number] : 1995 F 28 From: Rekha Sharpe i, DO PCP: CHERYL Samano Status: REG CLI Study: Pelvis W/WO Contrast Date of Exam: 08/15/24 Exam# [id number] Ordering Dr: Julianna Newman DO PROCEDURE: MRI [...] physiologic in this young patient. [facility]: Dr. Julianna Newman DO; CHERYL Samano Professor Of Violin: Signed Normal [facility] Platelet countOrdered By: Ayan Villareal on 08-15-2024 Platelets (Bld) [#/Vol] 304 10*3/uL 150-450 [facility] Potassium measurementOrdered By: Julianna Villareal on 08-15-2024 Potassium [Moles/Vol] 3.8 mmol/L 3.5-5.1 [facility] Prolactin [Mass/Vol]Ordered By: Julianna Villareal on 08-15-2024 Prolactin 21.9 ng/mL 4.8-33.4 [facility] Comment on above: Performed at: ES - [facility] [id number] [place], [place] [id number] Director: Mik Jerez MD, Phone: [phone] at: CB - [facility] [id number] [place], [place] [id number] Director: Heri Louis PhD, Phone: [phone] RBC Auto (Bld) [#/Vol]Ordere d By: Julianna Villareal on 08-15-2024 RBC (Bld) [#/Vol] 5.03 10*6/uL 4.2-5.[address] [facility] Rubella IgGon 08-15-2024 Rubella IgG Reactive Normal Nonreactive [facility] Comment on above: Result Comment: Anti body Results Interpretation of Immune Status Non Reactive Presumed Non-Immune Equivocal Equivocal Reactive Presumed Immune Performed By: #### L 509.4005, L3890.6300, L509.8000, L3400.0005, L3890.6100, L3890.6005 #### [facility] [address] [place], [place], [id number] Rubella immune status IgGOrd ered By: Julianna Villareal on 08-15-2024 Rubella IgG Antibody Reactive Nonreactive [facility] Comment on above: Antibody Results Int erpretation of Immune Status Non Reactive Presumed Non-Immune Equivocal Equivocal Reactive Presumed Immune Serum anion gap measurementO rdered By: Julianna Villareal on 08-15-2024 Anion gap [Moles/Vol] 7 mmol/L 5-15 [facility] Serum globulin measurementOr dered By: Julianna Villareal on 08-15-2024 Globulin (S) [Mass/Vol] 3.2 g/dL 2.2-4.2 [facility] Serum or plasma alanine eric otransferase (ALT) measurementOrdered By: Julianna Villareal on 08-15-2024 ALT [Catalytic activity/Vol] 22 U/L - [facility] Serum or plasma albumin shannon urement (mass/volume)Ordered By: Julianna Villareal on 08-15-2024 Albumin [Mass/Vol] 4.2 g/dL 3.2-5.0 [facility] Serum or plasma alkaline meredith sphatase measurementOrdered By: Julianna Villareal on 08-15-2024 ALP [Catalytic activity/Vol] 96 U/L 45-117 [facility] Serum or plasma calcium shannon urement (mass/volume)Ordered By: Julianna Villareal on 08-15-2024 Calcium [Mass/Vol] 9.5 mg/dL 8.5-10.1 [facility] Serum or plasma creatinine m easurement (mass/volume)Ordered By: Julianna Villareal on 08-15-2024 Creatinine [Mass/Vol] 0.55 mg/dL 0.55-1.02 [facility] Comment on above: The validity of the calculated GFR & GFRAA in patients over 70 years has not been determined. Clinical correlation is essential. Serum or plasma urea nitroge n measurement (mass/volume)Ordered By: Julianna Villareal on 08-15-2024 Urea nitrogen [Mass/Vol] 9 mg/dL 7-18 [facility] Sodium levelOrdered By: Bernadine Villareal on 08-15-2024 Sodium [Moles/Vol] 138 mmol/L 136-145 [facility] Testosterone, Serum Totalon 08-15-2024 Testosterone [Mass/Vol] 32.20 ng/dL Normal [facility] Comment on above: Result Comment: CENT RAL 90% REFERENCE RANGES MALE AGE <50 197.44 - 669.58 ng/dL MALE AGE > or = 50 187.72 - 684.19 ng/dL FEMALE AGE <50 8.38 - 35.01 ng/dL FEMALE AGE > or = 50 <7.00 - 35.92 ng/dL Effective as of 01/26/21 Performed By: #### L 500.2500, L100.0100, L700.6800 #### [facility] [address] [place], [place], [address] Testosterone, totalOrdered B y: Julianna Villareal on 08-15-2024 Testosterone [Mass/Vol] 32.20 ng/dL [facility] Comment on above: CENTRAL 90% REFERENC E RANGES MALE AGE <50 197.44 - 669.58 ng/dL MALE AGE > or = 50 187.72 - 684.19 ng/dL FEMALE AGE <50 8.38 - 35.01 ng/dL FEMALE AGE > or = 50 <7.00 - 35.92 ng/dL Effective as of 01/26/21 Total proteinOrdered By: Juliane Villareal on 08-15-2024 Protein [Mass/Vol] 7.4 g/dL 6.4-8.2 [facility] Treponema sp Ab Ql (S)Ordere d By: Julianna Villareal on 08-15-2024 Syphilis Total Antibody Non-Reactive [facility] Type AND Screenon 08-15-2024 Ab SCREEN GEL Negative Normal [facility] Comment on above: Order Comment: PN Performed By: #### L 500.2500, L100.0100, L700.6800 #### [facility] [address] [place], [address] Varicella-zoster virus IgG a ntibody assayOrdered By: Julianna Villareal on 08-15-2024 Varicella-Zoster IgG Antibody Reactive Non Reactive [facility] Comment on above: Please note refere nce interval changeA Reactive result is considered evidence of immunity toVZV. Reactive indicates that VZV IgG was detectedconsistent with previous infection and/or vaccination.A Non Reactive result indicates that VZV IgG was notdetected suggesting that immunity has not been acquired.Performed at: [facility] [id number] Director: Heri Louis PhD, Phone: [phone] Vitamin D,25 Hydroxyon 08-15 Vitamin D 25-OH 28.5 ng/mL Normal [facility] Comment on above: Result Comment: Talisha min D 25(OH) Status Range Deficiency <20 ng/mL (50nmol/L) Insufficiency 20 - 30 ng/mL (50 - 75 nmol/L) Sufficiency 30 - 100 ng/mL (75 - 250 nmol/L) Toxicity >100 ng/mL (>250 nmol/L) Performed By: #### L 500.2500, L100.0100, L700.6800 #### [facility] [address] [place], [address] White blood cell (WBC) count Ordered By: Julianna Villareal on 08-15-2024 WBC (Bld) [#/Vol] 6.2 10*3/uL 4.4-11.0 [facility] Genital Culture Comprehensiv lawanda 06-20-2024 VAC Reason for Exam: vag inal discharge Normal vaginal ese isolated. No yeast, Gardnerella, Neisseria or beta-hemolytic Streptococcus isolated. Normal [facility] Comment on above: Performed By: #### L 500.2500, L100.0100, L700.6800 #### [facility] [address] [place], [address] Genital cultureOrdered By: Herberth Sampson on 06-19-2024 Genital Culture Neisseria or beta-hemolytic Streptococcus isolated. [facility] Gram Stainon 06-19-2024 GS Reason for Exam: vag inal discharge Gram Stain 4+ Gram positive rods 2+ Gram variable carlos 1+ White Blood Cells Clue Cells 4+ Gram negative rods Score = 6 Interpretation: 0-3 Normal, 4-6 Intermediate, 7-10 Positive BV Normal [facility] Comment on above: Performed By: #### L 500.2500, L100.0100, L700.6800 #### [facility] [address] [place], [address] Gram stainOrdered By: Lilly Sampson on 06-19-2024 Microscopic observation Gram stain Nom (Unsp spec) [facility] Commissary Agent Office Visit Reporton 06-19-2024 Commissary Agent Office Visit Report [facility] [address], [address] [place] [address] OFFICE VISIT Date of Service: 06/19/24 MR#: [id number] Acct: [id number] Name: JOSE EDWARD Rep #: [id number] : 1995 Provider: AMY Cage Age/Sex: 28/F Location: [facility] Status: Signed Intake Vital Signs 03/06/24 13:40 06/19/24 09:41 Height 5 ft 2 in 5 ft 2 in Weight: 176 lb BMI 32.1 BP 119/79 Intake Visit Reasons: painful intercourse Chief Complaint: painful intercourse Consular Officer Required: No Allergies Latex, Natural Rubber Allergy [...] #1 02/28/24 03/06/24 Rx (FreeStyle Lexi 2 Richey) flash glucose sensor (FreeStyle #1 02/28/24 03/06/24 Rx Lexi 2 Sensor kit) sertraline 25 mg tablet 25 mg PO QDAY 06/19/24 06/19/24 History Is last menstrual period known: No Post menopausal: No Patient : No : No Control [facility] History Abnormal uterine bleeding Conceived by in vitro fertilization Supervision of high-risk Decreased movement False labor before 37 completed weeks of gestation premature rupture of membranes (PPROM) with unknown onset of labor Genetic testing of female Wears contact lenses Anxiety Alcohol use Heartburn Vapes nicotine containing substance Endometrial polyp Abnormal uterine bleeding (AUB) Surgical History [place] teeth extracted History of hysteroscopy Status post laparoscopy S/P D C (status post dilation and curettage) Hx of lumpectomy History of tonsillectomy and adenoidectomy Family History Mother Diabetes Uncle Diabetes Grandmother Diabetes Social History adopted: No household members: spouse number of children: 0 current occupational status: employed current occupation: [employer] current occupational exposures/hazards: No pets and animals: Yes (Avoid litterbox) pets and animals: cat(s) and dog(s) history of recent travel: Yes ([facility]) out of state: Yes out of country: No sexually active: Yes Smoking Status: Former smoker Electronic Cigarette Use: with nicotine alcohol intake: never substance use type: does not use well-balanced diet: daily or most days caffeine: No eating out: 1-3 times/week during the past year weight has: increased > 10 lbs what type of physical activity do you participate in: none jessica/faith: Hinduism seatbelt use: always do you feel safe [...] noted i (more content not included)... Normal [facility] Progress Noteon 05-14-2024 Rn Prior Authorization Authentication Interface Message Text Visit This is [...] Support and reassurance given. Discussed meeting with [facility] and pt has appt via telehealth [...] Precautions reviewed Pt to follow up with [facility] as scheduled The total time spent on patient care today 05/14/2024 was 20 minutes. -10 minutes direct patient care -10 minutes chart review and documentation Normal [facility] Progress Noteon 04-25-2024 Rn Prior Authorization Authentication Interface Message Text Visit Subjective: Jose [...] gtt completed WNL 3. Follow up with [facility] as scheduled for routine well woman care 4. Discussed precon consult with future with MFM if desired The total time spent on patient care today 04/25/2024 was 30 minutes. -15 minutes direct patient care -15 minutes chart review and documentation Normal [facility] GTT 2 HOURon 04-10-2024 Glucose [Mass/Vol] 101 mg/dL 49 - PINF mg/dL [facility] Comment on above: Criteria for Diagnos [...] Interpretation and review of laboratory results Normal [facility] Glucose, 2 Hour GTT 101 mg/dL Normal >49-<140 [facility] Comment on above: Order Comment: Relea [...] G TT 2 HOUR #### JULIANNA Mack ([id number]) [facility] [employer] GTT FASTINGon 04-10-2024 Glucose [Mass/Vol] 86 mg/dL Normal >49-<100 [facility] Comment on above: Order Comment: Relea se to patient->Automatic Result Comment: Gilberto mcclure By: [id number] Performed By: #### G TT FASTING #### JULIANNA Mack ([id number]) [facility] (BEAKER) [address] GTT FastingOrdered By: [facility] on 04-10-2024 Glucose post fast [Mass/Vol] 86 mg/dL 49 - PINF mg/dL [facility] Comment on above: Verified By: [id number] Interpretation and review of laboratory results Normal [facility] Progress Noteon 03-28-2024 Rn Prior Authorization Authentication Interface Message Text EXAM SUMMARY Jose presents for 2 week postop check. She delivered at 30w5d due to PPROM, labor and breech presentation. Delivery via LTCD with Dr. Gordillo. 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 care with [facility] in [place]. Baby boy, doing well in the NICU [...] 1 Capsule (20 mg) by mouth daily [id number] PO daily No current facility-administered medications for [...] on patient care today: 35 minutes. Normal [facility] 42on 03-17-2024 42 Check in with mom, pumping for 30 5/7 week in NICU. Mom is pumping 15cc per session. Observed pump session and resized her flanges to 22.5mm. Mom was given Spectra pump from [facility] hematology oncology consultant. Answer mom's questions. Discharge today. Normal [facility] Laboratory - Chemistry and C hemistry - challengeon 03-17-2024 Glucose [Mass/Vol] 82 mg/dL 70 - 100 mg/dL [facility] No Panel Informationon 03-17 Interpretation and review of laboratory results Normal [facility] Performed by: [facility], [address] [place] [address] CLIA ID: [id number] [facility] Nursing Noteon 03-17-2024 Nursing Note Mom discharged mom i n good condition with all belongings to a private residence, accompanied by . All discharge instructions reviewed with patient who verbalizes understanding and denies further questions.Mom walked out at 1840 Normal [facility] Progress Noteon 03-17-2024 Progress Note ---- [...] away so will stay in NICU and [facility] when a spot opens. Has a breat [...] data in the 24 hours ending 03/17/24 0547 Physical Exam: General appearance: alert, well appearing, [...] 03/14 - Dexcom in place (share code [id number]) - Discontinued meds after delivery and have been trending post-prandials - Blood sugars normalizing - AM fasting pending Disposition: Anticipate (more content not included)... Normal [facility] Laboratory - Chemistry and C hemistry - challengeon 03-16-2024 Glucose [Mass/Vol] 124 mg/dL High 70 - 100 mg/dL [facility] Glucose [Mass/Vol] 77 mg/dL 70 - 100 mg/dL [facility] Glucose [Mass/Vol] 102 mg/dL High 70 - 100 mg/dL [facility] No Panel Informationon 03-16 Interpretation and review of laboratory results Abnormal [facility] Performed by: [facility], [address] [place] [address] CLIA ID: [id number] [facility] Interpretation and review of laboratory results Normal [facility] Performed by: [facility], [address] [place] [address] CLIA ID: [id number] [facility] Interpretation and review of laboratory results Abnormal [facility] Performed by: [facility], [address] [place] [address] CLIA ID: [id number] [facility] Progress Noteon 03-16-2024 Progress Note ---- -------- [...] [place] (more content not included)... Normal [facility] 42on 03-15-2024 42 Initial visit with cheyenne alonzo. This is mom's first baby, delivered at 30 6/7 weeks. Mom is a transfer from [place] ( lives 1/2 from [facility]). Nurse has mom set up with [...] electric breast pump- [facility].All questions answered. Will continue to monitor, encourage and support patient. Normal [facility] CARECOORDon 03-15-2024 CARECOORD Sw consult for [...] be able to transfer baby to main nettie. Sw also dicussed her and can stay at bedside. Discussed with NICU Sw who did meet with parents to assist. No further needs anticipated. OK FOR DC [facility] CARECOORD Date: 03/15/2024 Name: Jose Edward : 1995 [facility] Patient Information Primary Caregiver: Self Accompanied by/Relationship: S/O;Family Marital Status: Support System: SO/Family Yazdanism/Cultural Factors: none Activities of Daily Living Communication: [...] place to sleep or slept in a chcf (including now)? No Transportation Needs Has the [...] Developmental Delay: N/A Children's Services: N/A Normal [facility] HEMOGLOBINon 03-15-2024 Hemoglobin (Bld) [Mass/Vol] 12.6 g/dL Normal 11.7-16.0 [facility] Comment on above: Order Comment: POD # 1; if Hemoglobin less than 8 or greater than 3gm drop from admission, notify MD and repeat as ordered, Performed By: #### L [id number] ####Phone Circuit Operator: GYPSY DAY ([phone])[facility] ([facility])[address] [place] [address] Hemoglobin (Bld) [Mass/Vol]O rdered By: Khurram Palacio on 03-15-2024 Interpretation and review of laboratory results Normal [facility] Laboratory - Chemistry and C hemistry - challengeon 03-15-2024 Glucose [Mass/Vol] 97 mg/dL 70 - 100 mg/dL [facility] Glucose [Mass/Vol] 87 mg/dL 70 - 100 mg/dL [facility] Glucose [Mass/Vol] 155 mg/dL High 70 - 100 mg/dL [facility] Glucose [Mass/Vol] 98 mg/dL 70 - 100 mg/dL [facility] Laboratory - Hematology and Cell countsOrdered By: Khurram Palacio on 03-15-2024 Hemoglobin (Bld) [Mass/Vol] 12.6 g/dL 11.7 - 16.0 g/dL [facility] No Panel Informationon 03-15 Interpretation and review of laboratory results Normal [facility] Performed by: [facility], [address] [place] [address] CLIA ID: [id number] [facility] Interpretation and review of laboratory results Normal [facility] Performed by: [facility], [address] [place] [address] CLIA ID: [id number] [facility] Interpretation and review of laboratory results Abnormal [facility] Performed by: [facility], [address] [place] [address] CLIA ID: [id number] [facility] Interpretation and review of laboratory results Normal [facility] Performed by: [facility], [address] [place] [address] CLIA ID: [id number] [facility] Nursing Noteon 03-15-2024 Nursing Note At 2320, this RN sec ure messaged the residents to ask if they would like a blood sugar tonight since patient's blood sugar was 249 after dinner and received 4 units of Humalog around 1900. Dr. uDarte stated that was a good idea to [...] of Humalog. Patient voiced understanding and agreeable. [facility] Progress Noteon 03-15-2024 Progress Note Note-Summer caldera [...] chart review and documentation , 9:41 AM Normal [facility] BLOOD TYPE AND SCREEN Raheel 03-14-2024 ABO GROUPING O Normal [facility] Comment on above: Performed By: #### L [id number] ####Phone Circuit Operator: GYPSY DAY ([phone])[facility] ([facility])[address] [place] [address] RH TYPE IN BLOOD Positive Normal [facility] Comment on above: Performed By: #### L AB276 ####Phone Circuit Operator: GYPSY DAY ([phone])[facility] ([facility])[address] [place] [address] Blood type and Crossmatch cheryl pollock (Bld)on 03-14-2024 ABO group Nom (Bld) O [facility] Blood group antibody screen GEL Ql Negative [facility] D Ag Ql (RBC) Positive [facility] Laboratory - Chemistry and C hemistry - challengeon 03-14-2024 Glucose [Mass/Vol] 217 mg/dL High 70 - 100 mg/dL [facility] Glucose [Mass/Vol] 249 mg/dL High 70 - 100 mg/dL [facility] Glucose [Mass/Vol] 101 mg/dL High 70 - 100 mg/dL [facility] Glucose [Mass/Vol] 116 mg/dL High 70 - 100 mg/dL [facility] No Panel Informationon 03-14 Interpretation and review of laboratory results Abnormal [facility] Performed by: [facility], [address] [place] [address] CLIA ID: [id number] [facility] Interpretation and review of laboratory results Abnormal [facility] Performed by: [facility], [address] [place] [address] CLIA ID: [id number] [facility] 1. Allen live intrauterine at 30w 5d. [...] ultrasound findings do not guarantee normal outcomes. [facility] RADIOLOGY SYSTEM OBSTETRICS REPORT (Signed Final 03/14/2024 12:33 pm) PATIENT INFO: ID #: [id number] : [birth year] (28 yrs)(F) Name: JOSE EDWARD Visit Date: 03/14/2024 09:55 am PERFORMED BY: Attending: Christiano Au MD Performed By: Allison Langley RDAR Referred By: JULIANA NGUYEN [facility] Phy.: RAND HALLMAN Location: [facility] Visit Type: Inpatient - Hospital SERVICE(S) PROVIDED: LAUREN w/jessica GUZMAN [id number] [place] [address] INDICATIONS: Oligohydramnios, third trimester, not O41.03X0 applicable [...] 03/14/2024 12:33 pm) PATIENT INFO: ID #: [id number] : [birth year] (28 yrs)(F) Name: JOSE EDWARD Visit Date: 03/14/2024 09:55 am PERFORMED BY: Attending: Christiano Au MD Performed By: Allison Langley RDAR Referred By: JULIANA NGUYEN [facility] Phy.: RAND HALLMAN Location: [facility] Visit Type: Inpatient - Hospital SERVICE(S) PROVIDED: LAUREN w/out MEGAN [id number] [place] [address] INDICATIONS: Oligohydramnios, third trimester, not O41.03X0 applicable [...] % 71 - 87 FL/AC: 22.2 % - Est. FW: 1445 gm 3 lb 3 [...] ultrasound findings do not guarantee normal outcomes. [facility] Interpretation and review of laboratory results Abnormal [facility] Performed by: [facility], [address] [place] [address] CLIA ID: [id number] [facility] Radiology Study observation (narrative) [facility] Interpretation and review of laboratory results Abnormal [facility] Performed by: [facility], [address] [place] [address] CLIA ID: [id number] [facility] No Panel InformationOrdered By: Christiano Au on 03-14-[address] [facility] Work Phone: Nursing Noteon 03-14-2024 Nursing Note Pt reports spotting on her pad and upon assessing urine found a few red specks in her urine Normal [facility] Nursing Note Dr. Nguyen made aware that pt was just up to restroom and had a quarter size mucousy, bloody clot into toilet. No active bleeding noted. No change to plan of care at this time Normal [facility] Nursing Note Pt made aware that o rder for nothing to eat or drink has been ordered by Dr. Duarte. She states understanding. I made her aware that I will be starting IV fluids also. Normal [facility] Op Noteon 03-14-2024 Op Note 3x1 [...] > 40 (more content not included)... Normal [facility] Progress Noteon 03-14-2024 Progress Note 1hr pp 249. Discusse d with Dr. Mancia. Will give 4u. Savanah Duarte, DO 03/14/2024 6:59 PM Came back from NICU and had eaten. Now 217. Will not eat further. Will give 4u. Advised on fasting BGT in the morning. Aware not to eat further for true fast in Am. Changed to CCD Savanah Duarte, 03/15/2024 12:07 AM [facility] Progress Note Nutrition Note: Patient now s/p delivery earlier today. Regular diet ordered which is appropriate. RD sign off to NCR to continue to monitor. Gypsy Kirby MS RD LD Clinical Dietitian [facility] Progress Note Safety Huddle: Called due to PPROM and laboring with breech presentation and having vaginal bleeding. OB anesthesia, primary RN, charge account clerk, Dr. Gordillo all present. Will be for 2g Ancef, she is allergic to azithromycin. Received latency abx already. [employer] notified. Consent signed by Dr. Au, risks and benefits discussed with the patient including bleeding, infection, damage to surrounding structures. Will proceed with primary section unscheduled, non-emergent. All in agreement. ANA TOVAR DO 03/14/2024 10:43 AM ATTENDING NOTE: I reviewed the note from the Resident and agree with the documentation unless otherwise indicated. [facility] Progress Note Evaluated the patien t to assess position. The fetus is breech on BSUS. Ehsan Gonsalez MD 03/14/2024 9:18 AM [facility] Progress Note ---- -------- Attestation signed by [...] 97 Resp: 17 17 17 Temp: 36.7 ?C (98.1 ?F) [...] injection 12 mg 12 mg IntraMUSCular q24h Julinaa Nguyen DO 12 mg at 03/13/24 1003 calcium gluconate 10 % injection 1 g 1 g IntraVENous PRN Dali Hall MD calcium gluconate 10 % injection 1 g 1 g IntraVENous PRN Savanah Duarte DO dextrose 5 % infusion 100 mL/hr IntraVENous PRN Keiryankit Boles, DO dextrose 50 % solution 12.5 g 12.5 g IntraVENous PRN Keiry Donovaneper, DO glucagon (human recombinant) injection 1 mg 1 mg IntraMUSCular PRN Keiry Donovaneper, DO glucose oral gel 15 g 15 g Oral PRN Keiryankit Boles, DO influenza vac tiss-cult subunt (Flucelvax) [...] infusion 1,000 mg/hr IntraVENous Continuous Savanah Duarte, magnesium sulfate IVPB premix 4,000 mg 4,000 mg IntraVENous Once Savanah Duarte, DO 4,000 mg at 03/14/24 0545 ondansetron ODT (Z (more content not included)... Normal [facility] US BIOPHYSICAL PROFILE WO NON STRESS TESTINGon 03-14-2024 US BIOPHYSICAL PROFILE WO NON STRESS TESTING OBSTETRICS REPORT (Signed Final 03/14/2024 12:33 pm) PATIENT INFO: ID #: [id number] : [birth year] (28 yrs)(F) Name: JOSE THOMASHERNÁN Visit Date: 03/14/2024 09:55 am PERFORMED BY: Attending: Christiano Au MD Performed By: Allison Langley [facility] Referred By: JULIANA NGUYEN [facility] Phy.: RAND HALLMAN Location: [facility] Visit Type: Inpatient - Hospital SERVICE(S) PROVIDED: [facility] w/out NST [address] [place] [address] INDICATIONS: Oligohydramnios, third trimester, not O41.03X0 applicable [...] findings do not guarantee normal outcomes. Normal [facility] US OB FOLLOW UP TRANSABDOMIN AL APPROACHon 03-14-2024 US OB FOLLOW UP TRANSABDOMINAL APPROACH OBSTETRICS REPORT (Signed Final 03/14/2024 12:33 pm) PATIENT INFO: ID #: [id number] : [birth year] (28 yrs)(F) Name: JOSE EDWARD Visit Date: 03/14/2024 09:55 am PERFORMED BY: Attending: Christiano Au MD Performed By: Allison Langley RDMS Referred By: JULIANA NGUYEN Secondary Phy.: RAND HALLMAN Location: [facility] Visit Type: Inpatient - Hospital SERVICE(S) PROVIDED: LAUREN w/jessica XIONGT [address] [place] [address] INDICATIONS: Oligohydramnios, third trimester, not O41.03X0 applicable [...] findings do not guarantee normal outcomes. Normal [facility] CARECOORDon 03-13-2024 [facility] day 8 at 30 /4 weeks. PPROM. Voiced no needs or concerns. Normal [facility] CBC (HEMOGRAM)on 03-13-2024 Erythrocyte distribution width (RBC) [Ratio] 13.8 % Normal 11.5-15.0 [facility] Comment on above: Performed By: #### L [id number] ####Phone Circuit Operator: GYPSY DAY ([phone])[address] Hematocrit (Bld) [Volume fraction] 38.4 % Normal 35.0-47.0 [facility] Comment on above: Performed By: #### L AB294 ####Phone Circuit Operator: GYPSY DAY ([phone])[address] Hemoglobin (Bld) [Mass/Vol] 13.0 g/dL Normal 11.7-16.0 [facility] Comment on above: Performed By: #### L AB294 ####Phone Circuit Operator: GYPSY DAY ([id number])[address] MCH (RBC) [Entitic mass] 29.8 pg Normal 26.0-34.0 [facility] Comment on above: Performed By: #### L AB294 ####Phone Circuit Operator: GYPSY DAY ([id number])[address] MCHC 33.9 % Normal 30.5-36.0 [facility] Comment on above: Performed By: #### L AB294 ####Phone Circuit Operator: GYPSY DAY ([id number])[facility])[address] [place] [address] MCV (RBC) [Entitic vol] 88.1 fL Normal 77.0-99.0 [facility] Comment on above: Performed By: #### L AB294 ####Phone Circuit Operator: GYPSY DAY ([phone])[facility])[address] [place] [address] Platelet mean volume (Bld) [Entitic vol] 9.5 fL Normal 9.0-12.7 [facility] Comment on above: Performed By: #### L AB294 ####Phone Circuit Operator: GYPSY DAY ([phone])[facility])[address] [place] [address] Platelets (Bld) [#/Vol] 282 10*3/uL Normal 140-440 [facility] Comment on above: Performed By: #### L AB294 ####Phone Circuit Operator: GYPSY DAY ([id number])[facility])[address] [place] [address] RBC (Bld) [#/Vol] 4.36 10*6/uL Normal 3.80-5.20 [facility] Comment on above: Performed By: #### L AB294 ####Phone Circuit Operator: GYPSY DAY ([id number])[facility])[address] [place] [address] WBC (Bld) [#/Vol] 8.7 10*3/uL Normal 3.6-10.7 [facility] Comment on above: Performed By: #### L AB294 ####Phone Circuit Operator: GYPSY DAY ([phone])[facility])[address] [place] [address] CBC panel Auto (Bld)on 03-13 Erythrocyte distribution width (RBC) [Ratio] 13.8 % 11.5 - 15.0 % [facility] Hematocrit (Bld) [Volume fraction] 38.4 % 35.0 - 47.0 % [facility] Hemoglobin (Bld) [Mass/Vol] 13.0 g/dL 11.7 - 16.0 g/dL [facility] Interpretation and review of laboratory results Normal [facility] MCH (RBC) [Entitic mass] 29.8 pg 26.0 - 34.0 pg [facility] MCHC (RBC) [Mass/Vol] 33.9 % 30.5 - 36.0 % [facility] MCV (RBC) [Entitic vol] 88.1 fL 77.0 - 99.0 fL [facility] Platelet mean volume (Bld) [Entitic vol] 9.5 fL 9.0 - 12.7 fL [facility] Platelets (Bld) [#/Vol] 282 10*3/uL 140 - 440 10*3/uL [facility] RBC (Bld) [#/Vol] 4.36 10*6/uL 3.80 - 5.2 0 10*6/uL [facility] WBC (Bld) [#/Vol] 8.7 10*3/uL 3.6 - 10.7 10*3/uL [facility] IDNon 03-13-2024 IDN The patient is Moderately Stable - Low risk of patient condition declining or worsening The patient's goals for the shift include remain The clinical goals for the shift include remain afebrile Normal [facility] IDN The patient is Moderately Stable - Low risk of patient condition declining or worsening The patient's goals for the shift include remain The clinical goals for the shift include remain afebrile Normal [facility] Laboratory - Chemistry and C hemistry - challengeon 03-13-2024 Glucose [Mass/Vol] 230 mg/dL High 70 - 100 mg/dL [facility] Glucose [Mass/Vol] 162 mg/dL High 70 - 100 mg/dL [facility] Glucose [Mass/Vol] 92 mg/dL 70 - 100 mg/dL [facility] Glucose [Mass/Vol] 91 mg/dL 70 - 100 mg/dL [facility] No Panel Informationon 03-13 Interpretation and review of laboratory results Abnormal [facility] Performed by: [facility] [place] [facility], [address] [place], [place] [id number] CLIA ID: [id number] [facility] Interpretation and review of laboratory results Abnormal [facility] Performed by: [facility], [address] [place] [address], [place] [address] CLIA ID: [id number] [facility] Interpretation and review of laboratory results Normal [facility] Performed by: [facility], [address] [facility], [place] [address] CLIA ID: [id number] [facility] Interpretation and review of laboratory results Normal [facility] Performed by: [facility], [address] [place] [address], [place] [address] CLIA ID: [id number] [facility] Progress Noteon 03-13-2024 Progress Note Notified of [...] closely. Savanah Duarte DO 03/13/2024 11:23 PM [place] more cramping. 1cm dilated. Reportedly was 1cm [...] CEFM. Savanah Duarte DO 03/14/2024 4:09 AM Normal [facility] Progress Note Temperature of 100.4 F noted [...] ?C (97.9 ?F) (Oral) Resp 16 Normal [facility] Progress Note ---- -------- Attestation signed [...] infection. Primary patient of Edouard Paulson/Prachi in [place]. Alerted her RN today to continue temp [...] Jacey secondary to blood noted; transported to [facility] - in triage, SSE showed gross rupture of membranes with nitrazine positive, ferning negative and visually closed - Admitted for further observation with latency antibiotics and steroids - Plan for delivery at 34 weeks or if indicated sooner for labor, infection, or N (more content not included)... Normal [facility] Consulton 03-12-2024 Consult Consult by Neonatology Request [...] from NICU Potential need for transfer to [place] [facility] if needs esclation of care, [...] she delivers/is discharged. Paola Cole MD Normal [facility] Laboratory - Chemistry and C hemistry - challengeon 03-12-2024 Glucose [Mass/Vol] 163 mg/dL High 70 - 100 mg/dL [facility] Glucose [Mass/Vol] 128 mg/dL High 70 - 100 mg/dL [facility] Glucose [Mass/Vol] 134 mg/dL High 70 - 100 mg/dL [facility] Glucose [Mass/Vol] 104 mg/dL High 70 - 100 mg/dL [facility] No Panel Informationon 03-12 Interpretation and review of laboratory results Abnormal [facility] Performed by: [facility], [address] [place] [address] CLIA ID: [id number] [facility] Interpretation and review of laboratory results Abnormal [facility] Performed by: [facility], [address] [place] [address] CLIA ID: [id number] [facility] Interpretation and review of laboratory results Abnormal [facility] Performed by: [facility]dian[facility], [address] [place] [address], [facility] [address] CLIA ID: [id number] [facility] Interpretation and review of laboratory results Abnormal [facility] Performed by: [facility], [address] [place] [address] CLIA ID: [id number] [facility] Progress Noteon 03-12-2024 Progress Note ---- -------- [...] Jacey secondary to blood noted; transported to [facility] - in triage, SSE showed gross [...] diet - Dexcom in place, share code [id number] - Continue to monitor BGTs fasting and 1 codi (more content not included)... Normal [facility] 42on 03-11-2024 42 In to visit [...] options for home going pump; pt has [employer] insurance. Availability of LC for NICU and reviewed. [facility] handout Your NICU Baby given and reviewed. Encouraged to watch videos from [employer] to support her goals. Resource numbers given for [facility] dept and [facility] dept. Encouraged to call with any questions / concerns. Pt receptive to my visit and education. Denies questions at this time. Normal [facility] CARECOORDon 03-11-2024 [facility] day 6 at 30 /2 weeks. Anhydramnios PPROM at 30/2 weeks referral. Voiced no needs or concerns. Normal [facility] Laboratory - Chemistry and C hemistry - challengeon 03-11-2024 Glucose [Mass/Vol] 104 mg/dL High 70 - 100 mg/dL [facility] Glucose [Mass/Vol] 91 mg/dL 70 - 100 mg/dL [facility] Glucose [Mass/Vol] 99 mg/dL 70 - 100 mg/dL [facility] Glucose [Mass/Vol] 88 mg/dL 70 - 100 mg/dL [facility] No Panel Informationon 03-11 Interpretation and review of laboratory results Abnormal [facility] Performed by: [facility], [address] [place] [address] [place] [address] CLIA ID: [id number] [facility] Interpretation and review of laboratory results Normal [facility]: [facility], [address] [place] [address], Formerly [facility], [facility] [address] CLIA ID: [id number] [facility] Interpretation and review of laboratory results Normal [facility] Performed by: [facility], [address] [place] [address], [facility], [facility] [address] CLIA ID: [id number] [facility] - Allen live intrauterine at 30w 2d in breech presentation - The amniotic fluid index is 1.3cm. There is no 2x2 pocket of fluid. - Biophysical profile, 12/08. (-2 for fluid) [facility]Y SYSTEM OBSTETRICS REPORT (Signed Final 03/11/2024 09:42 am) PATIENT INFO: ID #: [id number] : [birth year] (28 yrs)(F) Name: JOSE EDWARD Visit Date: 03/11/2024 09:07 am PERFORMED BY: Attending: Saumya Mancia Performed By: Jaquan Aguilar Referred By: JULIANA NGUYEN Location: [facility] IP Visit Type: Inpatient - Hospital SERVICE(S) PROVIDED: LAUREN w/out NST 88747 INDICATIONS: Oligohydramnios, third trimester, not O41.03X0 applicable [...] Electronically Signed Final Report 03/11/2024 09:42 am [facility] Saumya Mancia MD - 03/11/2024 OBSTETRICS REPORT (Signed Final 03/11/2024 09:42 am) PATIENT INFO: ID #: [id number] : [birth year] (28 yrs)(F) Name: JOSE EDWARD Visit Date: 03/11/2024 09:07 am PERFORMED BY: Attending: Saumya Mancia Performed By: Jaquan Aguilar Referred By: JULIANA NGUYEN Location: [facility] IP Visit Type: Inpatient - Hospital SERVICE(S) PROVIDED: LAUREN w/out MEGAN [address] INDICATIONS: Oligohydramnios, third trimester, not O41.03X0 applicable [...] - Biophysical profile, 12/08. (-2 for fluid) [facility] Radiology Study observation (narrative) [facility] Interpretation and review of laboratory results Normal [facility] Performed by: [facility], [address] [place] [address] CLIA ID: [id number] [facility] Progress Noteon 03-11-2024 Progress Note Rn notified me that patient having contractions, feeling some pressure. SSE showed closed cervix, no bleeding noted on exam, posterior cervix. Cat I FHT. Will continue to monitor. ANA ROSEASHLY, 03/11/2024 12:28 PM [facility] Progress Note ---- -------- Attestation signed by Saumya Mancia MD at 03/11/2024 2:51 PM MFM ATTENDING I have personally obtained a history and examined the patient with Dr. Nguyen. I agree with the assessment and plan as documented in the resident's note. The patient is a 28 y.o. 30w2d now HD#6, admitted for PPROM Pertinent Background: Transferred from [place] for PPROM. Gross rupture confirmed on admit and anhydramnios at OSH ultrasound. 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 We discussed the indication for delivery with [...] 84 Resp: 16 18 18 Temp: 36.3 ?C (97.4 ?F) 36.7 ?C [...] MD prenata (more content not included)... Normal [facility] Progress Note Notified by RN of bleeding patient noticed while wiping and reports of abdominal tightening. FHT Cat I. No CTX on toco. FHT Cat I. SSE performed, cervix visually 1 cm, unchanged from prior exams. No bleeding noted, friability noted on os. Patient placed on monitor, IVF bolus given. Will continue to monitor closely. Normal [facility] US BIOPHYSICAL PROFILE WO NON STRESS TESTINGon 03-11-2024 US BIOPHYSICAL PROFILE WO NON STRESS TESTING OBSTETRICS REPORT (Signed Final 03/11/2024 09:42 am) PATIENT INFO: ID #: [id number] : [birth year] (28 yrs)(F) Name: JOSE EDWARD Visit Date: 03/11/2024 09:07 am PERFORMED BY: Attending: Saumya Mancia Performed By: Jaquan Aguilar Referred By: JULIANA NGUYEN Location: [facility] IP Visit Type: Inpatient - Hospital SERVICE(S) PROVIDED: [facility] w/out NST [address]60 INDICATIONS: Oligohydramnios, third trimester, not O41.03X0 applicable [...] Biophysical profile, 12/08. (-2 for fluid) Normal [facility] BLOOD TYPE AND SCREEN GELon 03-10-2024 ABO GROUPING O Normal [facility] Comment on above: Performed By: #### L [id number] ####Phone Circuit Operator: GYPSY DAY ([phone])[facility] ([facility])[address] [place] [address] RH TYPE IN BLOOD Positive Normal [facility] Comment on above: Performed By: #### L [id number] ####Phone Circuit Operator: GYPSY DAY ([phone])[facility] ([facility])[address] [place] [address] Blood type and Crossmatch pa phill (Bld)on 03-10-2024 ABO group Nom (Bld) O [facility] Blood group antibody screen GEL Ql Negative [facility] D Ag Ql (RBC) Positive [facility] Laboratory - Chemistry and C hemistry - challengeon 03-10-2024 Glucose [Mass/Vol] 135 mg/dL High 70 - 100 mg/dL [facility] Glucose [Mass/Vol] 115 mg/dL High 70 - 100 mg/dL [facility] Glucose [Mass/Vol] 115 mg/dL High 70 - 100 mg/dL [facility] Glucose [Mass/Vol] 89 mg/dL 70 - 100 mg/dL [facility] No Panel Informationon 03-10 Interpretation and review of laboratory results Abnormal [facility], [address] [place] [address] CLIA ID: [id number] [facility] Interpretation and review of laboratory results Abnormal [facility] Performed by: [facility], [address] [place] [address] CLIA ID: [id number] [facility] Interpretation and review of laboratory results Abnormal [facility]: [facility], [address] [place] [address] CLIA ID: [id number] [facility] Interpretation and review of laboratory results Normal [facility] Performed by: [facility], [address] [place] [address] CLIA ID: [id number] [facility] Progress Noteon 03-10-2024 Progress Note ---- -------- Attestation signed by Saumya Mancia MD at 03/10/2024 2:46 PM MFM ATTENDING I have personally obtained a history and examined the patient with Dr. Nguyen. I agree with the assessment and plan as documented in the resident's note. The patient is a 28 y.o. 30w1d now HD#5, admitted for PPROM Pertinent Background: Transferred from [place] for PPROM. Gross rupture confirmed on admit and anhydramnios at OSH ultrasound. 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 We discussed the indication for delivery with [...] 7:11 AM 03/06/2024 Hospital Day: 5 Jose Thomashernán, 28 y.o. 30w1d Patient has been seen [...] day Juliana Nguyen DO 500 mg at 03/10/24 0704 calcium [...] facility showed (more content not included)... Normal [facility] Laboratory - Chemistry and C hemistry - challengeon 03-09-2024 Glucose [Mass/Vol] 177 mg/dL High 70 - 100 mg/dL [facility] Glucose [Mass/Vol] 172 mg/dL High 70 - 100 mg/dL [facility] Glucose [Mass/Vol] 94 mg/dL 70 - 100 mg/dL [facility] Glucose [Mass/Vol] 139 mg/dL High 70 - 100 mg/dL [facility] Glucose [Mass/Vol] 91 mg/dL 70 - 100 mg/dL [facility] No Panel Informationon 03-09 Interpretation and review of laboratory results Abnormal [facility] Performed by: [facility], [address] [place] [address] CLIA ID: [id number] [facility] Interpretation and review of laboratory results Abnormal [facility] Performed by: [facility], [address] [place] [address] CLIA ID: [id number] [facility] Interpretation and review of laboratory results Normal [facility] Performed by: [facility], [address] [place] [address] CLIA ID: [id number] [facility] Interpretation and review of laboratory results Abnormal [facility] Performed by: [facility], [address] [place] [address] CLIA ID: [id number] [facility] Interpretation and review of laboratory results Normal [facility] Performed by: [facility], [address] [place] [address] CLIA ID: [id number] [facility] Progress Noteon 03-09-2024 Progress Note ---- -------- Attestation signed by Saumya Mancia MD at 03/09/2024 10:57 AM M ATTENDING I have personally obtained a history and examined the patient with Dr. Nguyen. I agree with the assessment and plan as documented in the resident's note. The patient is a 28 y.o. 30w0d now HD#4, admitted for PPROM Pertinent Background: Transferred from [place] for PPROM. Gross rupture confirmed on admit and anhydramnios at OSH ultrasound. 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 We discussed the indication for delivery with [...] day Juliana Nguyen DO 500 mg at 03/08/24 2116 calcium gluconate 10 % injection 1 g 1 g IntraVENous PRN Dali Hall MD dextrose 5 % infusion 100 mL/hr IntraVENous PRN Keiry Boles DO dextrose 50 % solution 12.5 g 12.5 g IntraVENous PRN Keiry Boles DO famotidine (Pepcid) tablet 20 mg 20 mg Oral BID Ehsan Gonsalez MD 20 mg at 03/08/24 1733 Or famotidine (Pepcid) 20 mg in sodium [...] 1011 Assessme (more content not included)... Normal [facility] Bacteria identified Cx Nom ( U)Ordered By: Karyn Ramírez on 03-08-2024 Interpretation and review of laboratory results [facility] Day 3; 29/6 weeks today; No concerns at this time; Pt states she is interested in the possibility of staying at the [facility] after delivery due to living approx. 2 hours away; patient and provided background check paperwork; will be faxed to [facility] referral line; Will consult for patient as pt would like to see prior to delivery Normal [facility] Laboratory - Chemistry and C hemistry - challengeon 03-08-2024 Glucose [Mass/Vol] 143 mg/dL High 70 - 100 mg/dL [facility] Glucose [Mass/Vol] 171 mg/dL High 70 - 100 mg/dL [facility] Glucose [Mass/Vol] 125 mg/dL High 70 - 100 mg/dL [facility] Glucose [Mass/Vol] 133 mg/dL High 70 - 100 mg/dL [facility] Laboratory - Microbiology an d Antimicrobial susceptibilityOrdered By: Karyn Ramírez on 03-08-2024 Bacteria identified Cx Nom (U) No growth (<1,000 CFU/mL) [facility] No Panel Informationon 03-08 Interpretation and review of laboratory results Abnormal [facility] Performed by: [facility], [address] [place] [address] CLIA ID: [id number] [facility] Interpretation and review of laboratory results Abnormal [facility] Performed by: [facility], [address] [place] [address] CLIA ID: [id number] [facility] Interpretation and review of laboratory results Abnormal [facility] Performed by: [facility], [address] [place] [address], [facility], [facility] [address] CLIA ID: [id number] [facility] Interpretation and review of laboratory results Abnormal [facility] Performed by: [facility], [address] [place] [address] CLIA ID: [id number] [facility] Progress Noteon 03-08-2024 Progress Note Nutrition rescreen completed. Patient referred to the Dietitian due to gestational diabetes. YUN Pineda Normal [facility] Progress Note ---- -------- Attestation signed by Saumya Mancia MD at 03/08/2024 5:04 PM (Updated) MFM ATTENDING I have personally obtained a history and examined the patient with Dr. Nguyen. I agree with the assessment and plan as documented in the resident's note. The patient is a 28 y.o. 29w6d now HD#3, admitted for PPROM Pertinent Background: Transferred overnight for PPROM. Gross rupture confirmed on admit and anhydramnios at OSH ultrasound. 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 We discussed the indication for delivery with [...] day Juliana Nguyen, DO 100 mg at 03/07/242012 ondansetron ODT (Zofran-ODT) disintegrating tablet 4 mg 4 mg Oral q8h PRN Dali Hall MD Or ondansetron (Zofran) injection 4 mg 4 mg IntraVENous q6h PRN Dali Hall MD polyethylene glycol (PEG) 3350 (Miralax) packet 17 g 17 g Oral Daily PRN Dali Hall MD vitamin tablet 1 tablet Oral Daily Dali Hall MD 1 tablet at 03/07/24904 Assessment/Plan: Jose Edward is a 28 y.o. female 29w6d Anhydramnios PPROM - Patient reports LOF for about 3 weeks; US at outside facility showed anhydramnios; ROM rule out was deferred in [place] secondary to blood noted; transported to A (more content not included)... Normal [facility] S. agalactiae DNA EDUARDO+probe Ql (Unsp spec)on 03-08-2024 Group B Strep Screen Not detected Not Detected [facility] Interpretation and review of laboratory results Normal [facility] Methodology: real-ti me PCR [facility] Bacterial vaginosis and vagi nitis rRNA panel Probe (Vag fld)on 03-07-2024 Bacterial vaginosis Ql (Vag fld) [Interp] Not detected Not Detected [facility] C. glabrata DNA EDUARDO+probe Ql (Vag fld) Not detected Not Detected [facility] Keesha sp DNA EDUARDO+probe Ql (Vag fld) Not detected Not Detected [facility] Interpretation and review of laboratory results Normal [facility] T. vaginalis DNA EDUARDO+probe Ql (Vag fld) Not detected Not Detected [facility] Methodology: real-ti me PCR A negative [...] sexual abuse or for other forensic purposes. [facility] CARECOORDon 03-07-2024 CARECOORD Date: 03/07/2024 Name: Jose Edward : 1995 County Information [place] - transport Patient Information Primary Caregiver: Self Accompanied by/Relationship: S/O;Family Marital Status: Support System: SO/Family Yazdanism/Cultural Factors: Activities of Daily Living Communication: See [...] place to sleep or slept in a chcf (including now)? No Transportation Needs Has the [...] Developmental Delay: N/A Children's Services: N/A Normal [facility]S CHLAMYDIA/GONORRHEAon 2023 CHLAMYDIA/GONORRHEA NEISSERIA GONORRHOEA E DNA [...] specimen should be collected if clinically indicated. Normal [facility] Comment on above: Performed By: #### L [id number] ####Phone Circuit Operator: GYPSY DAY ([phone])[facility])[address] [place] [address] GROUP B STREP SCREEN BY PCRo n 03-07-2024 GROUP B STREP SCREEN BY PCR GROUP B STREP SCREEN BY PCR Reference Not Detected Not Detected ORDER COMMENTS: Methodology: real-time PCR Normal [facility] Comment on above: Performed By: #### L [id number] ####Phone Circuit Operator: GYPSY DAY ([phone])[facility])[address] [place] [address] Laboratory - Chemistry and C hemistry - challengeon 03-07-2024 Glucose [Mass/Vol] 149 mg/dL High 70 - 100 mg/dL [facility] Glucose [Mass/Vol] 135 mg/dL High 70 - 100 mg/dL [facility] Glucose [Mass/Vol] 129 mg/dL High 70 - 100 mg/dL [facility] Glucose [Mass/Vol] 105 mg/dL High 70 - 100 mg/dL [facility] Glucose [Mass/Vol] 158 mg/dL High 70 - 100 mg/dL [facility] N. gonorrhoeae DNA EDUARDO+probe Ql (Cervical mucus)on 03-07-2024 C. trachomatis DNA EDUARDO+probe Ql (Unsp spec) Not detected Not Detected [facility] Interpretation and review of laboratory results Normal [facility] N gonorrhoeae, DNA Probe Not detected Not Detected [facility] Methodology: real-ti me PCR This test is [...] specimen should be collected if clinically indicated. [facility] No Panel Informationon 03-07 Interpretation and review of laboratory results Abnormal [facility] Performed by: [facility], [address] [place] [address] CLIA ID: [id number] [facility] Interpretation and review of laboratory results Abnormal [facility] Performed by: [employer] [facility], [address] [place] [address] CLIA ID: [id number] [facility] 1. Allen live intrauterine at 29w 5d [...] above. 5. BPP is 6/8 for fluid. [facility] RADIOLOGY SYSTEM OBSTETRICS REPORT (Signed Final 03/07/2024 11:11 am) PATIENT INFO: ID #: [id number] : [birth year] (28 yrs)(F) Name: JOSE EDWARD Visit Date: 03/07/2024 09:36 am PERFORMED BY: Attending: Saumya Mancia Performed By: Allison Langley RDMS Referred By: JULIANA NGUYEN Location: [facility] IP Visit Type: Inpatient - Hospital SERVICE(S[place] [address] [place]/out NST 74725 INDICATIONS: Oligohydramnios, third trimester, not O41.03X0 applicable [...] Thoracic: Normal appear (more content not included)... [facility] Saumya Mancia MD - 03/07/2024 OBSTETRICS REPORT (Signed Final 03/07/2024 11:11 am) PATIENT INFO: ID #: [id number] : [birth year] (28 yrs)(F) Name: JOSE EDWARD Visit Date: 03/07/2024 09:36 am PERFORMED BY: Attending: Saumya Mancia Performed By: Allison Langley RDAR Referred By: JULIANA NGUYEN Location: [facility] IP Visit Type: Inpatient - Hospital SERVICE(S) [place]: [place] [address] BP w/out NST 69829 INDICATIONS: Oligohydramnios, third trimester, not O41.03X0 applicable [...] Normal appearance Interventr. Septum: Suboptimal views Cardiac [place]: Normal appearance Diaphragm: Normal appearance 3 Vessel View: Normal appearance 3 V Trachea View: Suboptimal views IVC: Normal Appearance Crossing: Suboptimal views Abdomen Ventral Wall: Normal appearance Cord Insertion: Normal appearance Situs: Normal appearance Stomach: Nor (more content not included)... [facility] Interpretation and review of laboratory results Abnormal [facility] Performed by: [facility], [address] [place] [address] CLIA ID: [id number] [facility] Radiology Study observation (narrative) [facility] Interpretation and review of laboratory results Abnormal [facility] Performed by: [employer] [facility], [address] [place] [address] CLIA ID: [id number] [facility] Interpretation and review of laboratory results Abnormal [facility] Performed by: [facility], [address] [place] [address] CLIA ID: [id number] [facility] No Panel InformationOrdered By: Saumya Mancia on 03-07-2024 [facility] Work Phone: Nursing Noteon 03-07-2024 Nursing Note RN called to bedside at 0435, pt reporting feeling increased leakage of fluid. Denies cramping, contractions, or pain, but does state feeling pressure which has become more constant. Dr Boles aware. Pt instructed to notify RN immediately if pressure intensifies or if cramping / contractions occur. Normal [facility] Progress Noteon 03-07-2024 Progress Note ---- [...] at OSH ultrasound. 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 We discussed the indication for delivery with any signs of infection. We reviewed the recommendation for inpatient admission until delivery and plan for delivery at 34 weeks unless indicated sooner for labor, infection or NRFS. All questions answered. Continue latency antibiotics for 7 days total. BMZ #2 this evening S/p Mag for CENTRIFUGE SEPARATOR OPERATOR x >12 hrs total- now stopped NICU [...] Positive LOF Positive Contractions Vitals: 03/06/24 1725 03/06/24 2010 03/06/24 2340 03/07/24 0438 BP: 107/75 111/76 111/71 [...] infusion 1 (more content not included)... Normal [facility] US BIOPHYSICAL PROFILE WO NON STRESS TESTINGon 03-07-2024 US BIOPHYSICAL PROFILE WO NON STRESS TESTING OBSTETRICS REPORT (Signed Final 03/07/2024 11:11 am) PATIENT INFO: ID #: [id number] : [birth year] (28 yrs)(F) Name: JOSE EDWARD Visit Date: 03/07/2024 09:36 am PERFORMED BY: Attending: Saumya Mancia Performed By: Allison Langley RDMS Referred By: JULIANA NGUYEN Location: [facility] IP Visit Type: Inpatient - Hospital SERVICE(S) [place] [address] BP w/out NST 47460 INDICATIONS: Oligohydramnios, third trimester, not O41.03X0 applicable [...] GESTATIONAL AGE: Clinical GERALD: 29w 5d GERALD: 11/16/24 U/S Today: 29w 3d GERALD: 05/20/24 Best: [...] Normal appearance Interventr. Septum: Suboptimal views Cardiac [place]: Normal appearance Diaphragm: Normal appearance 3 Vessel View: Normal appearance 3 V Trachea View: Suboptimal views IVC: Normal Appearance Crossing: Suboptimal views Abdomen Ventral Wall: Normal appearance Cord Insertion: Normal appearance Situs: Normal appearance Stomach: Normal appearance Liver: Normal appearance Lt Kidney: Normal appearance Rt Kidney: Normal appearance Bladder: N (more content not included)... Normal [facility] US OB FOLLOW UP TRANSABDOMIN AL APPROACHon 03-07-2024 US OB FOLLOW UP TRANSABDOMINAL APPROACH OBSTETRICS REPORT (Signed Final 03/07/2024 11:11 am) PATIENT INFO: ID #: [id number] : [birth year] (28 yrs)(F) Name: JOSE EDWARD Visit Date: 03/07/2024 09:36 am PERFORMED BY: Attending: Saumya Mancia Performed By: Allison Langley [facility] Referred By: JULIANA NGUYEN Location: [facility] IP Visit Type: Inpatient - Hospital SERVICE(S) PROVIDED: [place] [address] BPP w/out NST 48560 INDICATIONS: Oligohydramnios, third trimester, not O41.03X0 applicable [...] Normal appearance Interventr. Septum: Suboptimal views Cardiac [place]: Normal appearance Diaphragm: Normal appearance 3 Vessel View: Normal appearance 3 V Trachea View: Suboptimal views IVC: Normal Appearance Crossing: Suboptimal views Abdomen Ventral Wall: Normal appearance Cord Insertion: Normal appearance Situs: Normal appearance Stomach: Normal appearance Liver: Normal appearance Lt Kidney: Normal appearance Rt Kidney: Normal appearance Bladder: N (more content not included)... [facility] [facility] VAGINITIS PANEL MVP PCRon VAGINITIS PANEL [...] abuse or for other forensic purposes. Normal [facility] Comment on above: Performed By: #### L [id number] #### Phone Circuit Operator: GYPSY DAY ([phone]) [facility] ([facility]) [address] [place] [address] BLOOD TYPE AND SCREEN GELon 03-06-2024 ABO GROUPING O Normal [facility] Comment on above: Order Comment: HOLD. Specimen is valid for 3 days - nurse to verify valid specimen Performed By: #### L [id number] ####Phone Circuit Operator: GYPSY DAY ([phone])[facility] ([facility])[address] [place] [address] RH TYPE IN BLOOD Positive Normal [facility] Comment on above: Order Comment: HOLD. Specimen is valid for 3 days - nurse to verify valid specimen Performed By: #### L [id number] ####Phone Circuit Operator: GYPSY DAY ([phone])[facility] ([facility])[address] [place] [address] Blood type and Crossmatch pa phill (Bld)on 03-06-2024 ABO group Nom (Bld) O [facility] Blood group antibody screen GEL Ql Negative [facility] D [facility]l [facility]BC) [facility] CBC (HEMOGRAM)on 03-06-2024 Erythrocyte distribution width (RBC) [Ratio] 13.9 % Normal 11.5-15.0 [facility] Comment on above: Performed By: #### L [id number] ####Phone Circuit Operator: GYPSY DAY ([phone])[facility] ([facility])[address] [place] [address] Hematocrit (Bld) [Volume fraction] 41.8 % Normal 35.0-47.0 [facility] Comment on above: Performed By: #### L [id number] ####Phone Circuit Operator: GYPSY DAY ([phone])[facility] ([facility])[address] [place] [address] Hemoglobin (Bld) [Mass/Vol] 14.1 g/dL Normal 11.7-16.0 [facility] Comment on above: Performed By: #### L [id number] ####Phone Circuit Operator: GYPSY DAY ([id number])[facility] ([facility])[address] [place] [address] MCH (RBC) [Entitic mass] 30.4 pg Normal 26.0-34.0 [facility] Comment on above: Performed By: #### L [id number] ####Phone Circuit Operator: GYPSY DAY ([phone])[facility])[address] [place] [address] MCHC 33.7 % Normal 30.5-36.0 [facility] Comment on above: Performed By: #### L [id number] ####Phone Circuit Operator: GYPSY DAY ([id number])[facility] ([facility])[address] [place] [address] MCV (RBC) [Entitic vol] 90.1 fL Normal 77.0-99.0 [facility] Comment on above: Performed By: #### L [id number] ####Phone Circuit Operator: GYPSY DAY ([phone])[facility])[address] [place] [address] Platelet mean volume (Bld) [Entitic vol] 9.8 fL Normal 9.0-12.7 [facility] Comment on above: Performed By: #### L [id number] ####Phone Circuit Operator: GYPSY DAY ([id number])[facility])[address] [place] [address] Platelets (Bld) [#/Vol] 311 10*3/uL Normal 140-440 [facility] Comment on above: Performed By: #### L [id number] ####Phone Circuit Operator: GYPSY DAY ([id number])[facility] ([facility])[address] [place] [address] RBC (Bld) [#/Vol] 4.64 10*6/uL Normal 3.80-5.20 [facility] Comment on above: Performed By: #### L [id number] ####Phone Circuit Operator: GYPSY DAY ([id number])[facility] ([facility])[address] [place] [address] WBC (Bld) [#/Vol] 15.2 10*3/uL High 3.6-10.7 [facility] Comment on above: Performed By: #### L [id number] ####Phone Circuit Operator: GYPSY DAY ([phone])[facility] ([facility])[address] [place] [address] CBC panel Auto (Bld)on 03-06 Erythrocyte distribution width (RBC) [Ratio] 13.9 % 11.5 - 15.0 % [facility] Hematocrit (Bld) [Volume fraction] 41.8 % 35.0 - 47.0 % [facility] Hemoglobin (Bld) [Mass/Vol] 14.1 g/dL 11.7 - 16.0 g/dL [facility] Interpretation and review of laboratory results Abnormal [facility] MCH (RBC) [Entitic mass] 30.4 pg 26.0 - 34.0 pg [facility] MCHC (RBC) [Mass/Vol] 33.7 % 30.5 - 36.0 % [facility] MCV (RBC) [Entitic vol] 90.1 fL 77.0 - 99.0 fL [facility] Platelet mean volume (Bld) [Entitic vol] 9.8 fL 9.0 - 12.7 fL [facility] Platelets (Bld) [#/Vol] 311 10*3/uL 140 - 440 10*3/uL [facility] RBC (Bld) [#/Vol] 4.64 10*6/uL 3.80 - 5.2 0 10*6/uL [facility] WBC (Bld) [#/Vol] 15.2 10*3/uL High 3.6 - 10.7 10*3/uL [facility] Laboratory - Chemistry and C hemistry - challengeon 09-04-2024 Glucose [Mass/Vol] 229 mg/dL High 70 - 100 mg/dL [facility] Glucose [Mass/Vol] 227 mg/dL High 70 - 100 mg/dL [facility] [employer] No Panel Informationon 03-06 Interpretation and review of laboratory results Abnormal [facility] Performed by: [facility], [address] [place] [id number] CLIA ID: [id number] [facility] Interpretation and review of laboratory results Abnormal [facility] Performed by: [facility] [employer] [facility], [address] [facility] [address] CLIA ID: [id number] [facility] [employer] [facility] Progress Noteon 03-06-2024 Progress Note ---- -------- Attestation signed by Saumya Mancia MD at 03/06/2024 6:43 PM [facility] Patient a direct admission from Transfer from [place]. Please see my other H&P attestation -------- Department of Obstetrics and Gynecology Labor and Delivery Triage Note CHIEF COMPLAINT: Anyhydramnios HISTORY OF PRESENT ILLNESS: The patient is a 28 y.o. 29w4d. Patient presents with a chief complaint as above and is being admitted for observation and BMZ + Magnesium. Patient reports she has been leaking for 3 weeks now. She was evaluated in [place] initially at that time with amnisure that [...] PROVIDER: Dr. Mancia DISPOSITION: Admit to L&D [facility] URINE CULTUREon 03-06-2024 Bacteria identified Cx Nom (U) URINE CULTURE Reference No growth (<1,000 CFU/mL) [ S = SUSCEPTIBLE R = RESISTANT I = INTERMEDIATE S-DD = Susceptible-dose dependent NS = Non-susceptible NO = No Interpretation ] [facility] Comment on above: Performed By: #### L [id number] ####Phone Circuit Operator: GYPSY DAY ([phone])[facility] ([address] Absolute lymphocyte countOrd ered By: Julianna Villareal on 10-25-2023 Lymphocytes Auto (Unsp spec) [#/Vol] 2.65 10*3/uL 0.83-4.51 [facility] Automated lymphocyte count a s percentage of total leukocytesOrdered By: Julianna Villareal on 10-25-2023 Lymphocytes/100 WBC Auto (Unsp spec) 27.5 % 19-41 [facility] Basophil percentageOrdered B y: Julianna Villareal on 10-25-2023 Basophils/100 WBC (Bld) 0.4 % 0-1 [facility] Eosinophils/100 WBC (Bld) 1.6 % 0-5 [facility] Hemoglobin (Bld) [Mass/Vol] 13.4 g/dL 12.0-15.0 [facility] Monocytes/100 WBC (Bld) 7.3 % 0-10 [facility] Neutrophils (Bld) [#/Vol] 6.1 10*3/uL 2.0-7.7 [facility] Neutrophils/100 WBC (Bld) 62.8 % 47-70 [facility] WBC (Bld) [#/Vol] 9.6 10*3/uL 4.4-11.0 [facility] Culture, urineOrdered By: Lul Bauer on 10-25-2023 Bacteria identified Cx Nom (U) Culture exhibits no growth. [facility] Determination of erythrocyte mean corpuscular volume (MCV)Ordered By: Julianna Villareal on 10-25-2023 MCV (RBC) [Entitic vol] 88.4 fL 81-99 [facility] Erythrocyte distribution wid th ratioOrdered By: Julianna Villareal on 10-25-2023 Erythrocyte distribution width (RBC) [Ratio] 13.9 % 11.6-14.6 [facility] Erythrocyte distribution wid th standard deviationOrdered By: Julianna Villareal on 10-25-2023 Erythrocyte distribution width (RBC) [Entitic vol] 44.7 fL 35.1-43.9 [facility] HIV 1 and HIV-2 antibody ass ay with HIV-1 p24 antigen detectionOrdered By: Julianna Villareal on 10-25-2023 HIV 1+2 Ab+HIV1 p24 Ag IA Ql Non-Reactive Nonreactive [facility] Hematocrit Auto (Bld) [Volum e fraction]Ordered By: Julianna Villareal on 10-25-2023 Hematocrit (Bld) [Volume fraction] 40.5 % 37-47 [facility] Immature granulocytes/100 WB C Auto (Bld)Ordered By: Julianna Villareal on 10-25-2023 Immature granulocytes/100 WBC (Bld) 0.400 % 0.0-0.9 [facility] Comment on above: IG% - Immature Granu locytes (promyelocytes, myelocytes and metamyelocytes) > 1% indicates that a LEFT SHIFT is Present. Laboratory - Chemistry and C hemistry - challengeon 10-25-2023 Glucose Ql (U) Negative [facility] Laboratory - Hematology and Cell countsOrdered By: Julianna Villareal on 10-25-2023 MCH (RBC) [Entitic mass] 29.3 pg 27.0-32.0 [facility] MCHC (RBC) [Mass/Vol] 33.1 g/dL 32-36 [facility] Nucleated RBC/100 WBC (Bld) [Ratio] 0 % 0-5 [facility] Platelet mean volume (Bld) [Entitic vol] 8.7 fL 6.2-12.0 [facility] Platelets (Bld) [#/Vol] 286 10*3/uL 150-450 [facility] Laboratory - Urinalysison Protein Ql (U) Negative [facility] No Panel InformationOrdered By: Julianna Villareal on 10-25-2023 Hepatitis B Surface Antigen Non-Reactive Nonreactive [facility] Hepatitis C Antibody Non-Reactive Nonreactive W [facility] Comment on above: Non Reactive: < 0.8 Equivocal: >/= 0.8 to < 1.0 Reactive: >/= 1.0The CDC requires that a reactive/equivocal HCV antibody result be sent out for confirmation. HCV Quant by PCR testing. Miscellaneous Test Comment SEE SCANNED REPORT [facility] Rubella IgG Antibody Reactive Nonreactive [facility] Comment on above: Antibody Results Int erpretation of Immune Status Non Reactive Presumed Non-Immune Equivocal Equivocal Reactive Presumed Immune RBC Auto (Bld) [#/Vol]Ordere d By: Julianna Villareal on 10-25-2023 RBC (Bld) [#/Vol] 4.58 10*6/uL 4.2-5.[address] [facility] Serum Treponema species anti body detectionOrdered By: Julianna Villareal on 10-25-2023 Treponema sp Ab Ql (S) Non-Reactive [facility] Whole blood hemoglobin A1c/t otal hemoglobin ratio (mass fraction)Ordered By: Venessa Newby on 10-25-2023 HbA1c (Bld) [Mass fraction] 5.1 % 3.8-5.6 [facility] Comment on above: Normal < 5.7 % Predi abetic 5.7 - 6.4 % Diabetic >or= 6.5 % Please note range changes. Cervical or vagninal specime n microscopic examination by cytology stain (reported asOrdered By: Venessa Newby on 10-12-2023 Cytology report Cyto stain Doc (Cvx/Vag) Comment . [facility] Comment on above: The Pap smear is [...] rRNA EDUARDO+probe Ql (Unsp spec) Negative Negative [facility] Laboratory - CytologyOrdered By: Venessa Newby on 10-12-2023 Safety Consultant Cyto stain Nom (Cvx/Vag) [ID] Comment . [facility] Comment on above: Luther Dobson totechnologist (ASCP) Laboratory - Microbiology an d Antimicrobial susceptibilityOrdered By: Julianna Villareal on 10-12-2023 N. gonorrhoeae DNA EDUARDO+probe Ql (Unsp spec) Negative Negative [facility] Comment on above: Performed at: = - [address] [id number] Director: Machelle Ambrocio MD, Phone: [phone] Laboratory - Miscellaneous t estsOrdered By: Venessa Newby on 10-12-2023 Service comment (Unsp spec) [Interp] . . [facility] No Panel InformationOrdered By: Venessa Newby on 10-12-2023 Human Papillomavirus Screen Comment . [facility] Comment on above: The HPV DNA reflex c kathryn were not met with this specimenresult therefore, no HPV testing was performed.Performed at: [facility] [id number] [place], [place] [id number] Director: Washington Calvo MD, Phone: [phone] at: [facility] [id number] Director: Machelle Ambrocio MD, Phone: [phone] Thin prep Papanicolaou smear with manual screeningOrdered By: Venessa Newby on 10-12-2023 Thin prep Papanicolaou smear with manual screening Comment . [facility] Comment on above: NEGATIVE FOR INTRAEP ITHELIAL LESION OR MALIGNANCY. This liquid based Th inPrep(R) pap test was screened withthe use of an image guided system. No Panel InformationOrdered By: Yola Schaffer on 09-29-2023 Estradiol (E2) Level 911.3 pg/mL [facility] Comment on above: NORMAL REFERENCE RAN GES [...] Schaffer on 09-29-2023 HCG ( test) Ql 87222 mIU/mL <4 [facility] Comment on above: hCG levels with Gest ational AgeGestational Age hCG mIU/mL (IU/L)0.2 - 1 week 5 - 501-2 weeks 50 - 5002-3 weeks 100 - 67091-1 weeks 500 - 741840-0 weeks 1000 - 781772-8 weeks 51675 - 100,0006-8 weeks 48701 - 200,0002-3 months 99211 - 100,000 Serum or plasma progesterone measurement (mass/volume)Ordered By: Yola Schaffer on 09-29-2023 Progesterone [Mass/Vol] 51.51 ng/mL See Comment [facility] Comment on above: Progesterone Referen ce Table: UNITS Female: Follicular 0.15 - 1.40 ng/mL Luteal 3.34 - 25.56 ng/mL Mid-luteal 4.44 - 28.03 ng/mL Postmenopausal 0.0 - 0.73 ng/mL : 1st Trimester 11.22 - 90.00 ng/mL 2nd Trimester 25.55 - 89.40 ng/mL 3rd Trimester 48.40 -422.50 ng/mL No Panel InformationOrdered By: Yola Schaffer on 09-22-2023 Estradiol (E2) Level 839.2 pg/mL [facility] Comment on above: NORMAL REFERENCE RAN GES [...] HCG ( test) Ql 2686 mIU/mL <4 [facility] Comment on above: hCG levels with Gest ational AgeGestational Age hCG mIU/mL (IU/L)0.2 - 1 week 5 - 501-2 weeks 50 - 5002-3 weeks 100 - 52806-1 weeks 500 - 045378-5 weeks 1000 - 153015-7 weeks 53339 - 100,0006-8 weeks 12298 - 200,0002-3 months 58543 - 100,000 Serum or plasma progesterone measurement (mass/volume)Ordered By: Yola Schaffer on 09-22-2023 Progesterone [Mass/Vol] 61.23 ng/mL See Comment [facility] Comment on above: Progesterone Referen ce Table: [...] Auto (Unsp spec) [#/Vol] 2.66 10*3/uL 0.83-4.51 [facility] Automated lymphocyte count a s percentage of total leukocytesOrdered By: Karlos Miller on 09-19-2023 Lymphocytes/100 WBC Auto (Unsp spec) 16.6 % 19-41 [facility] Basophil percentageOrdered B y: Karlos Miller on 09-19-2023 Basophil percentage 0 SEEN /hpf 0-5 [facility] Basophils/100 WBC (Bld) 0.3 % 0-1 [facility] Chloride [Moles/Vol] 106 mmol/L 98-107 [facility] Eosinophils/100 WBC (Bld) 0.2 % 0-5 [facility] Glucose [Mass/Vol] 116 mg/dL 74-106 [facility] Comment on above: Fasting Glucose resu lt from 100 to 125 mg/dL suggests IMPAIRED HOMEOSTASIS per A.D.A. criteria. Hemoglobin (Bld) [Mass/Vol] 13.7 g/dL 12.0-15.0 [facility] Monocytes/100 WBC (Bld) 4.6 % 0-10 [facility] Neutrophils (Bld) [#/Vol] 12.4 10*3/uL 2.0-7.7 [facility] Neutrophils/100 WBC (Bld) 77.7 % 47-70 [facility] Potassium [Moles/Vol] 3.3 mmol/L 3.5-5.1 [facility] Sodium [Moles/Vol] 140 mmol/L 136-145 [facility] WBC (Bld) [#/Vol] 16.0 10*3/uL 4.4-11.[address] [facility] Bilirubin Test strip Ql (U)O rdered By: Karlos Miller on 09-19-2023 Bilirubin Ql (U) Negative Negative [facility] Determination of erythrocyte mean corpuscular volume (MCV)Ordered By: Karlos Miller on 09-19-2023 MCV (RBC) [Entitic vol] 90.3 fL 81-99 [facility] Erythrocyte distribution wid th ratioOrdered By: Karlos Miller on 09-19-2023 Erythrocyte distribution width (RBC) [Ratio] 13.7 % 11.6-14.6 [facility] Erythrocyte distribution wid th standard deviationOrdered By: Karlos Miller on 09-19-2023 Erythrocyte distribution width (RBC) [Entitic vol] 45.1 fL 35.1-43.9 [facility] Hematocrit Auto (Bld) [Volum e fraction]Ordered By: Karlos Miller on 09-19-2023 Hematocrit (Bld) [Volume fraction] 42.8 % 37-47 [facility] Immature granulocytes/100 WB C Auto (Bld)Ordered By: Karlos Miller on 09-19-2023 Immature granulocytes/100 WBC (Bld) 0.600 % 0.0-0.9 [facility] Comment on above: IG% - Immature Granu locytes (promyelocytes, myelocytes and metamyelocytes) > 1% indicates that a LEFT SHIFT is Present. Ketones Test strip Ql (U)Ord ered By: Karlos Miller on 09-19-2023 Ketones Ql (U) Negative Negative [facility] Laboratory - Chemistry and C hemistry - challengeOrdered By: Karlos Miller on 09-19-2023 CO2 [Moles/Vol] 23.0 mmol/L 21.0-32.0 [facility] Urea nitrogen/Creatinine [Mass ratio] 12.3 mg/mg 10-20 [facility] Laboratory - Hematology and Cell countsOrdered By: Karlos Milelr on 09-19-2023 MCH (RBC) [Entitic mass] 28.9 pg 27.0-32.0 [facility] MCHC (RBC) [Mass/Vol] 32.0 g/dL 32-36 [facility] Nucleated RBC/100 WBC (Bld) [Ratio] 0 % 0-5 [facility] Platelet mean volume (Bld) [Entitic vol] 8.7 fL 6.2-12.0 [facility] Platelets (Bld) [#/Vol] 312 10*3/uL 150-450 [facility] Mucus LM Ql (Urine sed)Order ed By: Karlos Miller on 09-19-2023 Mucus Ql (Urine sed) 0 SEEN /hpf [facility] Nitrite Test strip Ql (U)Ord ered By: Karlos Miller on 09-19-2023 Nitrite Ql (U) Negative Negative [facility] No Panel InformationOrdered By: Karlos Miller on 09-19-2023 Urine RBC 5-10 SEEN /hpf 0-5 [facility] Estimated Creatinine Clearance Calc 126.10 ml/min [facility] Estimated GFR (MDRD) Amer 141 mL/min >60 [facility] Comment on above: GFR Calc Estimated GFR (MDRD) Non-Af Amer 117 mL/min >60 [facility] Comment on above: Non- GFR Calc Protein Test strip Ql (U)Ord ered By: Karlos Miller on 09-19-2023 Protein Ql (U) Negative Negative [facility] RBC Auto (Bld) [#/Vol]Ordere d By: Karlos Miller on 09-19-2023 RBC (Bld) [#/Vol] 4.74 10*6/uL 4.2-5.[address] [facility] Serum or plasma calcium shannon urement (mass/volume)Ordered By: Karlos Miller on 09-19-2023 Calcium [Mass/Vol] 8.7 mg/dL 8.5-10.1 [facility] Serum or plasma choriogonado tropin detectionOrdered By: Karlos Miller on 09-19-2023 HCG ( test) Ql 1366 mIU/mL <4 [facility] Comment on above: hCG levels with Gest ational AgeGestational Age hCG mIU/mL (IU/L)0.2 - 1 week 5 - 501-2 weeks 50 - 5002-3 weeks 100 - 79523-3 weeks 500 - 209235-6 weeks 1000 - 566808-7 weeks 27291 - 100,0006-8 weeks 08925 - 200,0002-3 months 06370 - 100,000 Serum or plasma creatinine m easurement (mass/volume)Ordered By: Karlos Miller on 09-19-2023 Creatinine [Mass/Vol] 0.65 mg/dL 0.55-1.02 [facility] Comment on above: The validity of the calculated GFR & GFRAA in patients over 70 years has not been determined. Clinical correlation is essential. Serum or plasma urea nitroge n measurement (mass/volume)Ordered By: Karlos Miller on 09-19-2023 Urea nitrogen [Mass/Vol] 8 mg/dL 7-18 [facility] Squamous epithelial cells de tection in urine sediment by light microscopyOrdered By: Karlos Miller on 09-19-2023 Epithelial cells.squamous LM Ql (Urine sed) 0 SEEN /hpf 5-10 [facility] Thin prep Papanicolaou smear with manual screeningOrdered By: Karlos Miller on 09-19-2023 Thin prep Papanicolaou smear with manual screening 11 5-15 [facility] Urine blood detectionOrdered By: Karlos Miller on 09-19-2023 RBC Ql (U) 50 /ul Negative [facility] Urine clarityOrdered By: Jen Miller on 09-19-2023 Clarity (U) Sl. Cloudy Clear [facility] Urine color determinationOrd ered By: Karlos Miller on 09-19-2023 Color (U) Yellow Yellow [facility] Urine glucose detectionOrder ed By: Karlos Miller on 09-19-2023 Glucose Ql (U) Normal mg/dl Normal [facility] Urine leukocyte esterase det ection by dipstickOrdered By: Karlos Miller on 09-19-2023 Leukocyte esterase Test strip Ql (U) Negative Negative [facility] Urine pHOrdered By: Karlos stanford on 09-19-2023 pH (U) 8.0 [pH] 5.0 - 8.0 [facility] Urine sediment bacteria coun t by microscopy (number/high power field)Ordered By: Karlos Miller on 09-19-2023 Bacteria LM.HPF (Urine sed) [#/Area] 0 /[HPF] None Seen [facility] Urine specific gravity measu rementOrdered By: Karlos Miller on 09-19-2023 Specific gravity (U) [Rel density] 1.010 1.002-1.030 [facility] Urine urobilinogen measureme ntOrdered By: Karlos Miller on 09-19-2023 Urobilinogen Ql (U) Normal mg/dl Normal [facility] No Panel InformationOrdered By: Yola Schaffer on 09-15-2023 Estradiol (E2) Level 998.4 pg/mL [facility] Comment on above: NORMAL REFERENCE RAN GES FEMALE FOLLICULAR 21.4 - 164.8 pg/mL MID-CYCLE PEAK 49.9 - 367.2 pg/mL LUTEAL 40.2 - 259.0 pg/mL POST-MENOPAUSAL ON MHT <11.0 - 462.1 pg/mL NOT ON MHT <11.0 - 58.3 pg/mL MALE <11.0 - 52.5 pg/mL NOTE:[employer] HAS CONFIRMED THE DRUG FULVETRANT (FASLODEX) MAY CAUSE FALSELY ELEVATED ESTRADIOL RESULTS WHEN USING THIS TEST METHOD. IF PATIENT IS TAKING FULVESTRANT AN ALTERNATIVE METHOD SHOULD BE USED TO DETERMINE ESTRADIOL CONCENTRATION. Serum or plasma choriogonado tropin detectionOrdered By: Yola Schaffer on 09-15-2023 HCG ( test) Ql 321 mIU/mL <4 [facility] Comment on above: hCG levels with Gest ational AgeGestational Age hCG mIU/mL (IU/L)0.2 - 1 week 5 - 501-2 weeks 50 - 5002-3 weeks 100 - 87499-8 weeks 500 - 412536-8 weeks 1000 - 562885-8 weeks 82181 - 100,0006-8 weeks 11625 - 200,0002-3 months 40351 - 100,000 Serum or plasma progesterone measurement (mass/volume)Ordered By: Yola Schaffer on 09-15-2023 Progesterone [Mass/Vol] 53.34 ng/mL See Comment [facility] [facility] Comment on above: Progesterone Referen ce Table: UNITS Female: Follicular 0.15 - 1.40 ng/mL Luteal 3.34 - 25.56 ng/mL Mid-luteal 4.44 - 28.03 ng/mL Postmenopausal 0.0 - 0.73 ng/mL : 1st Trimester 11.22 - 90.00 ng/mL 2nd Trimester 25.55 - 89.40 ng/mL 3rd Trimester 48.40 -422.50 ng/mL No Panel InformationOrdered By: Yola Schaffer on 09-13-2023 Estradiol (E2) Level 631.1 pg/mL [facility] Comment on above: NORMAL REFERENCE RAN GES FEMALE FOLLICULAR 21.4 - 164.8 pg/mL MID-CYCLE PEAK 49.9 - 367.2 pg/mL LUTEAL 40.2 - 259.0 pg/mL POST-MENOPAUSAL ON MHT <11.0 - 462.1 pg/mL NOT ON MHT <11.0 - 58.3 pg/mL MALE <11.0 - 52.5 pg/mL NOTE:[employer] HAS CONFIRMED THE DRUG FULVETRANT (FASLODEX) MAY CAUSE FALSELY ELEVATED ESTRADIOL RESULTS WHEN USING THIS TEST METHOD. IF PATIENT IS TAKING FULVESTRANT AN ALTERNATIVE METHOD SHOULD BE USED TO DETERMINE ESTRADIOL CONCENTRATION. Serum or plasma choriogonado tropin detectionOrdered By: Yola Schaffer on 09-13-2023 HCG ( test) Ql 142 mIU/mL <4 [facility] Comment on above: hCG levels with Gest ational AgeGestational Age hCG mIU/mL (IU/L)0.2 - 1 week 5 - 501-2 weeks 50 - 5002-3 weeks 100 - 67451-6 weeks 500 - 257706-8 weeks 1000 - 669353-4 weeks 53010 - 100,0006-8 weeks 46000 - 200,0002-3 months 30930 - 100,000 Serum or plasma progesterone measurement (mass/volume)Ordered By: Yola Schaffer on 09-13-2023 Progesterone [Mass/Vol] 68.72 ng/mL See Comment [facility] Comment on above: Progesterone Referen ce Table: [...] on 09-13-2023 TSH Qn 1.89 uIU/mL 0.358-3.74 [facility] Serum or plasma choriogonado tropin detectionOrdered By: Yola Schaffer on 2023 HCG ( test) Ql 86 mIU/mL <4 [facility] Comment on above: hCG levels with Gest ational AgeGestational Age hCG mIU/mL (IU/L)0.2 - 1 week 5 - 501-2 weeks 50 - 5002-3 weeks 100 - 75403-1 weeks 500 - 001071-6 weeks 1000 - 029145-3 weeks 93219 - 100,0006-8 weeks 21234 - 200,0002-3 months 20162 - 100,000 Serum or plasma progesterone measurement (mass/volume)Ordered By: Yola Schaffer on 2023 Progesterone [Mass/Vol] 73.77 ng/mL See Comment [facility] Comment on above: Progesterone Referen ce Table: UNITS Female: Follicular 0.15 - 1.40 ng/mL Luteal 3.34 - 25.56 ng/mL Mid-luteal 4.44 - 28.03 ng/mL Postmenopausal 0.0 - 0.73 ng/mL : 1st Trimester 11.22 - 90.00 ng/mL 2nd Trimester 25.55 - 89.40 ng/mL 3rd Trimester 48.40 -422.50 ng/mL No Panel InformationOrdered By: Yola Schaffer on 09-06-2023 Estradiol (E2) Level 586.2 pg/mL [facility] Comment on above: NORMAL REFERENCE RAN GES [...] 09-06-2023 Progesterone [Mass/Vol] 66.90 ng/mL See Comment [facility] Comment on above: Progesterone Referen ce Table: UNITS Female: Follicular 0.15 - 1.40 ng/mL Luteal 3.34 - 25.56 ng/mL Mid-luteal 4.44 - 28.03 ng/mL Postmenopausal 0.0 - 0.73 ng/mL : 1st Trimester 11.22 - 90.00 ng/mL 2nd Trimester 25.55 - 89.40 ng/mL 3rd Trimester 48.40 -422.50 ng/mL No Panel InformationOrdered By: Yola Schaffer on 08-25-2023 Estradiol (E2) Level 1350.2 pg/mL [facility] Comment on above: NORMAL REFERENCE RAN GES FEMALE FOLLICULAR 21.4 - 164.8 pg/mL MID-CYCLE PEAK 49.9 - 367.2 pg/mL LUTEAL 40.2 - 259.0 pg/mL POST-MENOPAUSAL ON MHT <11.0 - 462.1 pg/mL NOT ON MHT <11.0 - 58.3 pg/mL MALE <11.0 - 52.5 pg/mL NOTE:[employer] HAS CONFIRMED THE DRUG FULVETRANT (FASLODEX) MAY CAUSE FALSELY ELEVATED ESTRADIOL RESULTS WHEN USING THIS TEST METHOD. IF PATIENT IS TAKING FULVESTRANT AN ALTERNATIVE METHOD SHOULD BE USED TO DETERMINE ESTRADIOL CONCENTRATION. Luteinizing Hormone 11.8 mIU/mL [facility] Comment on above: NORMAL REFERENCE RAN GES FEMALE FOLLICULAR 1.9 - 26.2 mIU/mL MID-CYCLE PEAK 22.8 - 76.1 mIU/mL LUTEAL 0.6 - 16.6 mIU/mL POST-MENOPAUSAL ON MHT 1.1 - 52.4 mIU/mL NOT ON MHT 8.6 - 61.8 mIU/mL MALE 1.2 - 10.6 mIU/mL Serum or plasma progesterone measurement (mass/volume)Ordered By: Yola Schaffer on 08-25-2023 Progesterone [Mass/Vol] 0.27 ng/mL See Comment [facility] Comment on above: Progesterone Referen ce Table: UNITS Female: Follicular 0.15 - 1.40 ng/mL Luteal 3.34 - 25.56 ng/mL Mid-luteal 4.44 - 28.03 ng/mL Postmenopausal 0.0 - 0.73 ng/mL : 1st Trimester 11.22 - 90.00 ng/mL 2nd Trimester 25.55 - 89.40 ng/mL 3rd Trimester 48.40 -422.50 ng/mL No Panel InformationOrdered By: Yola Schaffer on 08-23-2023 Estradiol (E2) Level 104.4 pg/mL [facility] Comment on above: NORMAL REFERENCE RAN GES FEMALE FOLLICULAR 21.4 - 164.8 pg/mL MID-CYCLE PEAK 49.9 - 367.2 pg/mL LUTEAL 40.2 - 259.0 pg/mL POST-MENOPAUSAL ON MHT <11.0 - 462.1 pg/mL NOT ON MHT <11.0 - 58.3 pg/mL MALE <11.0 - 52.5 pg/mL NOTE:[employer] HAS CONFIRMED THE DRUG FULVETRANT (FASLODEX) MAY CAUSE FALSELY ELEVATED ESTRADIOL RESULTS WHEN USING THIS TEST METHOD. IF PATIENT IS TAKING FULVESTRANT AN ALTERNATIVE METHOD SHOULD BE USED TO DETERMINE ESTRADIOL CONCENTRATION. Luteinizing Hormone 7.7 mIU/mL [facility] Comment on above: NORMAL REFERENCE RAN GES FEMALE FOLLICULAR 1.9 - 26.2 mIU/mL MID-CYCLE PEAK 22.8 - 76.1 mIU/mL LUTEAL 0.6 - 16.6 mIU/mL POST-MENOPAUSAL ON MHT 1.1 - 52.4 mIU/mL NOT ON MHT 8.6 - 61.8 mIU/mL MALE 1.2 - 10.6 mIU/mL Serum or plasma progesterone measurement (mass/volume)Ordered By: Yola Schaffer on 08-23-2023 Progesterone [Mass/Vol] ng/mL See Comment [facility] Comment on above: Progesterone Referen ce Table: UNITS Female: Follicular 0.15 - 1.40 ng/mL Luteal 3.34 - 25.56 ng/mL Mid-luteal 4.44 - 28.03 ng/mL Postmenopausal 0.0 - 0.73 ng/mL : 1st Trimester 11.22 - 90.00 ng/mL 2nd Trimester 25.55 - 89.40 ng/mL 3rd Trimester 48.40 -422.50 ng/mL No Panel InformationOrdered By: Yola Schaffer on 08-21-2023 Estradiol (E2) Level 30.4 pg/mL [facility] Comment on above: NORMAL REFERENCE RAN [...] DETERMINE ESTRADIOL CONCENTRATION. Luteinizing Hormone 21.7 mIU/mL [facility] Comment on above: NORMAL REFERENCE RAN GES FEMALE FOLLICULAR 1.9 - 26.2 mIU/mL MID-CYCLE PEAK 22.8 - 76.1 mIU/mL LUTEAL 0.6 - 16.6 mIU/mL POST-MENOPAUSAL ON MHT 1.1 - 52.4 mIU/mL NOT ON MHT 8.6 - 61.8 mIU/mL MALE 1.2 - 10.6 mIU/mL Serum or plasma progesterone measurement (mass/volume)Ordered By: Yola Schaffer on 08-21-2023 Progesterone [Mass/Vol] ng/mL See Comment [facility] Comment on above: Progesterone Referen ce Table: UNITS Female: Follicular 0.15 - 1.40 ng/mL Luteal 3.34 - 25.56 ng/mL Mid-luteal 4.44 - 28.03 ng/mL Postmenopausal 0.0 - 0.73 ng/mL : 1st Trimester 11.22 - 90.00 ng/mL 2nd Trimester 25.55 - 89.40 ng/mL 3rd Trimester 48.40 -422.50 ng/mL No Panel InformationOrdered By: Yola Schaffer on 08-15-2023 Estradiol (E2) Level 42.6 pg/mL [facility] Comment on above: NORMAL REFERENCE RAN [...] ESTRADIOL CONCENTRATION. Follicle Stimulating Hormone 5.0 mIU/mL [facility] Comment on above: NORMAL REFERENCE RAN GES FEMALE FOLLICULAR 2.3 - 12.6 mIU/mL MID-CYCLE PEAK 5.2 - 17.5 mIU/mL LUTEAL 1.7 - 12.9 mIU/mL POST-MENOPAUSAL ON MHT 5.9 - 72.8 mIU/mL NOT ON MHT 12.7 - 132.2 mlU/mL MALE 0.7 - 10.8 mIU/mL Luteinizing Hormone 4.9 mIU/mL [facility] Comment on above: NORMAL REFERENCE RAN GES FEMALE FOLLICULAR 1.9 - 26.2 mIU/mL MID-CYCLE PEAK 22.8 - 76.1 mIU/mL LUTEAL 0.6 - 16.6 mIU/mL POST-MENOPAUSAL ON MHT 1.1 - 52.4 mIU/mL NOT ON MHT 8.6 - 61.8 mIU/mL MALE 1.2 - 10.6 mIU/mL Serum or plasma progesterone measurement (mass/volume)Ordered By: Yola Schaffer on 08-15-2023 Progesterone [Mass/Vol] 0.21 ng/mL See Comment [facility] Comment on above: Progesterone Referen ce Table: [...] on 08-15-2023 TSH Qn 2.46 uIU/mL 0.358-3.74 [facility] No Panel InformationOrdered By: Yola Schaffer on 08-07-2023 Estradiol (E2) Level 268.0 pg/mL [facility] Comment on above: NORMAL REFERENCE RAN GES [...] HCG ( test) Ql 13 mIU/mL <4 [facility] Comment on above: hCG levels with Gest ational AgeGestational Age hCG mIU/mL (IU/L)0.2 - 1 week 5 - 501-2 weeks 50 - 5002-3 weeks 100 - 93009-6 weeks 500 - 904810-1 weeks 1000 - 805390-4 weeks 65966 - 100,0006-8 weeks 66874 - 200,0002-3 months 18946 - 100,000 Serum or plasma progesterone measurement (mass/volume)Ordered By: Yola Schaffer on 08-07-2023 Progesterone [Mass/Vol] 41.43 ng/mL See Comment [facility] Comment on above: Progesterone Referen ce Table: [...] on 08-05-2023 E2 IA [Moles/Vol] 276.2 pg/mL [facility] Comment on above: NORMAL REFERENCE RAN [...] HCG ( test) Ql 31 mIU/mL <4 [facility] Comment on above: hCG levels with Gest ational AgeGestational Age hCG mIU/mL (IU/L)0.2 - 1 week 5 - 501-2 weeks 50 - 5002-3 weeks 100 - 29242-1 weeks 500 - 102655-1 weeks 1000 - 190556-1 weeks 81500 - 100,0006-8 weeks 04263 - 200,0002-3 months 48761 - 100,000 Serum or plasma progesterone measurement (mass/volume)Ordered By: Yola Schaffer on 08-05-2023 Progesterone [Mass/Vol] 53.90 ng/mL See Comment [facility] Comment on above: Progesterone Referen ce Table: [...] on 08-05-2023 TSH Qn 2.49 uIU/mL 0.358-3.74 [facility] Serum or plasma choriogonado tropin detectionOrdered By: Yola Schaffer on 08-03-2023 HCG ( test) Ql 36 mIU/mL <4 [facility] Comment on above: hCG levels with Gest ational AgeGestational Age hCG mIU/mL (IU/L)0.2 - 1 week 5 - 501-2 weeks 50 - 5002-3 weeks 100 - 56034-3 weeks 500 - 953537-6 weeks 1000 - 244798-9 weeks 12993 - 100,0006-8 weeks 02104 - 200,0002-3 months 27552 - 100,000 Serum or plasma progesterone measurement (mass/volume)Ordered By: Yola Schaffer on 08-03-2023 Progesterone [Mass/Vol] 49.44 ng/mL See Comment [facility] Comment on above: Progesterone Referen ce Table: UNITS Female: Follicular 0.15 - 1.40 ng/mL Luteal 3.34 - 25.56 ng/mL Mid-luteal 4.44 - 28.03 ng/mL Postmenopausal 0.0 - 0.73 ng/mL : 1st Trimester 11.22 - 90.00 ng/mL 2nd Trimester 25.55 - 89.40 ng/mL 3rd Trimester 48.40 -422.50 ng/mL Estradiol measurementOrdered By: Yola Schaffer on 07-29-2023 E2 IA [Moles/Vol] 279.0 pg/mL [facility] Comment on above: NORMAL REFERENCE RAN [...] 07-29-2023 Progesterone [Mass/Vol] 54.70 ng/mL See Comment [facility] Comment on above: Progesterone Referen ce Table: UNITS Female: Follicular 0.15 - 1.40 ng/mL Luteal 3.34 - 25.56 ng/mL Mid-luteal 4.44 - 28.03 ng/mL Postmenopausal 0.0 - 0.73 ng/mL : 1st Trimester 11.22 - 90.00 ng/mL 2nd Trimester 25.55 - 89.40 ng/mL 3rd Trimester 48.40 -422.50 ng/mL ANTI MULLERIAN HORMONEon Mullerian inhibiting substance [Mass/Vol] 4.43 ng/mL Normal 0.89-9.85 [facility] Comment on above: Order Comment: Speci men Type: BLOOD SPECIMEN Ordering Facility: [facility] Address: [address] [place] [address] Performed By: #### 2 842-3, AMINAH, 75486-5, 92982-9, 5195-3, 40561-2, TISH, 14438-3 #### [facility] CLIA [id number] [address] [address] [place] HBV surface Ag Ser Qlon HBV surface Ag Ql (S) Negative Normal Negative [facility] Comment on above: Order Comment: Speci men Type: BLOOD SPECIMEN Ordering Facility: [facility] Address: [address] [place] [address] Performed By: #### 2 842-3, AMINAH, 26605-0, 20674-2, 5195-3, 17225-0, WINSTON, 90653-2 #### [facility] CLIA [id number] [address] [place] HCV Ab Ser Qlon 05-03-2023 HCV Ab Ql (S) Negative Normal Negative [facility] Comment on above: Order Comment: Rhina dowd Type: BLOOD SPECIMEN [facility]: [facility] [place] [address] Result Comment: The result suggests no evidence of active infection with Hepatitis C virus. Should recent infection be suspected, repeat testing may be considered 4-6 weeks after this draw. Performed By: #### 2 842-3, AMINAH, 43439-9, 72237-5, 5195-3, 72798-5, TISH, 14657-4 #### [facility] CLIA [id number] [address] [place] [address] [place] HbA1c (Bld)on 05-03-2023 Average glucose Estimated from glycated hemoglobin (Bld) [Mass/Vol] 97 mg/dL Normal [facility] Comment on above: Order Comment: Rhina dowd Type: BLOOD SPECIMEN Ordering Facility: [facility] Address: [address] [place] [address] Result Comment: eAG: (Estimated average glucose) is a calculated value from HgbA1c and is counter sales representative of the average blood glucose level in the last 2-3 month period. Performed By: #### 2 842-3, AMINAH, 18195-3, 50094-5, 5195-3, 66421-5, TISH, 45758-6 #### [facility] CLIA [id number] [facility] [place] [id number] [place] HbA1c (Bld) [Mass fraction] 5.0 % Normal 4.3-5.6 [facility] Comment on above: Order Comment: Rhina dowd Type: BLOOD SPECIMEN Ordering Facility: [facility] Address: [address] [place], [place] [address] Result Comment: [place] Diabetes Association guidelines indicate that patients with HgbA1c in the range 5.7-6.4% are at increased risk for development of diabetes, and intervention by lifestyle modification may be beneficial. HgbA1c greater or equal to 6.5% is considered diagnostic of diabetes. Performed By: #### 2 842-3, AMINAH, 69022-9, 65594-3, 5195-3, 43368-9, TISH, 97206-9 #### [facility] CLIA [id number] [address] [place] [id number] [place] Prolactin SerPl-mCncon 05-03 Prolactin [Mass/Vol] 10.1 ng/mL Normal 4.5-26.8 [facility] Comment on above: Order Comment: Specdarcy dowd Type: BLOOD SPECIMEN Ordering Facility: [facility] Address: [facility] [place] [address] Result Comment: Prol actin test is performed using the [employer] Electrochemiluminescence Immunoassay method. Results obtained with different methods or kits cannot be used interchangeably. Performed By: #### 2 842-3, AMINAH, 30922-5, 70732-3, 51953, 75388-9, TISH, #### [facility] CLIA [id number] [address] [place] [address] [place] RPR Ser Qlon 05-03-2023 Reagin Ab RPR Ql (S) Non-Reactive Normal Nonreactive C [facility] Comment on above: Order Comment: Rhina dowd Type: BLOOD SPECIMEN Ordering Facility: [facility] Address: [facility] [place] [address] Result Comment: Rapi d plasma reagin (RPR) test detects non-treponemal antibodies. RPR may be reactive in a variety of infectious and non-infectious conditions. Correlation with clinical picture and with treponemal antibody results is required for final interpretation. Performed By: #### 2 842-3, AMINAH, 48414-5, 41412-0, 5195-3, 46503-8, TISH, 51321-9 #### [facility] CLIA [id number] [address] [place] [id number] [place] RUBELLA IGG ABon 05-03-2023 RUBELLA IGG AB, QUAL Positive Normal Positive [facility] Comment on above: Order Comment: Speci men Type: BLOOD SPECIMEN Ordering Facility: [facility] Address: [facility] [place] [address] Result Comment: The result suggests recent or past exposure to Rubella virus or history of Rubella vaccination. Positive result may also be seen due to presence of passively-transferred antibodies. Please correlate with patient's history. Performed By: #### 2 842-3, RUBKEE, 81104-6, 51746-6, 5195-3, 40933-2, TISH, 62092-0 #### [facility] CLIA [id number] [address] [place] [address] [place] Reagin and Treponema pallidu m IgG and IgM [Interp]on 05-03-2023 T. pallidum IgG+IgM IA Ql (S) Non-Reactive Normal Nonreactive [facility] Comment on above: Order Comment: Speci [facility] Type: BLOOD SPECIMEN Ordering Facility: [facility] Address: [facility] [place] [address] Performed By: #### 2 842-3, RUBDOMINIKG, 40546-2, 78415-7, 5-3, 73468-9, TISH, 18881-2 #### [facility] CLIA [id number] [address] [place] [address] [place] Reagin+T pallidum IgG+IgM Se rPl-Impon 05-03-2023 Reagin and Treponema pallidum IgG and IgM [Interp] Cannot exclude recent Treponemal infection if specimen collected within 7-10 days after appearance of suspect lesions or 2-3 weeks after an exposure. Clinical correlation is required. Normal [facility] Comment on above: Order Comment: [facility] Type: BLOOD SPECIMEN Ordering Facility: [facility] Address: [facility] [place] [address] Performed By: #### 2 842-3, RUBIGG, 06950-0, 77048-6, 5195-3, 68705-5, WINSTON, 32800-1 #### [facility] CLIA [id number] [address] [place] [address] [place] Serum or plasma progesterone measurement (mass/volume)Ordered By: Julianna Villareal on 03-07-2023 Progesterone [Mass/Vol] 9.21 ng/mL See Comment [facility] Comment on above: Progesterone Referen ce Table: [...] 01-20-2023 Progesterone [Mass/Vol] 0.63 ng/mL See Comment [facility] Comment on above: Progesterone Referen ce Table: UNITS Female: Follicular 0.15 - 1.40 ng/mL Luteal 3.34 - 25.56 ng/mL Mid-luteal 4.44 - 28.03 ng/mL Postmenopausal 0.0 - 0.73 ng/mL : 1st Trimester 11.22 - 90.00 ng/mL 2nd Trimester 25.55 - 89.40 ng/mL 3rd Trimester 48.40 -422.50 ng/mL Serum or plasma prolactin me asurement (mass/volume)Ordered By: Julianna Villareal on 01-20-2023 Prolactin [Mass/Vol] 16.0 ng/mL [facility] Comment on above: NORMAL REFERENCE RAN GES FEMALE NON- 2.2 - 30.3 ng/mL 8.1 - 347.6 ng/mL POST-MENOPAUSAL 0.7 - 31.5 ng/mL MALE 2.5 - 17.4 ng/mL Basophil percentageOrdered B y: Dr. Villareal on 12-02-2022 WBC (Bld) [#/Vol] 4.8 10*3/uL 4.4-11.0 [facility] Blood erythrocytes count (nu mber/volume)Ordered By: Dr. Villareal on 12-02-2022 RBC (Bld) [#/Vol] 4.63 10*6/uL 4.2-5.[address] [facility] Blood hemoglobin measurement (mass/volume)Ordered By: Dr. Villareal on 12-02-2022 Hemoglobin (Bld) [Mass/Vol] 13.6 g/dL 12.0-15.0 [facility] Blood platelet mean volumeOr dered By: Dr. Villareal on 12-02-2022 Platelet mean volume (Bld) [Entitic vol] 9.5 fL 6.2-12.0 [facility] Determination of erythrocyte mean corpuscular volume (MCV)Ordered By: Dr. Villareal on 12-02-2022 MCV (RBC) [Entitic vol] 86.6 fL 81-99 [facility] Hematocrit Auto (Bld) [Volum e fraction]Ordered By: Dr. Villareal on 12-02-2022 Hematocrit (Bld) [Volume fraction] 40.1 % 37-47 [facility] Laboratory - Chemistry and C hemistry - challengeOrdered By: Dr. Villareal on 12-02-2022 Free T4 [Mass/Vol] 1.05 ng/dL 0.76-1.46 [facility] HCG ( test) Ql (U) Negative [facility] Comment on above: Very dilute urine sp ecimens, as indicated by a low specificgravity, may not contain counter sales representative levels of hCG. If is still suspected, a first morning urinespecimen should be collected 48 hours later and tested. Laboratory - Hematology and Cell countsOrdered By: Dr. Villareal on 12-02-2022 Erythrocyte distribution width (RBC) [Entitic vol] 41.8 fL 35.1-43.9 [facility] Erythrocyte distribution width (RBC) [Ratio] 13.3 % 11.6-14.6 [facility] MCH (RBC) [Entitic mass] 29.4 pg 27.0-32.0 [facility] MCHC Auto (RBC) [Mass/Vol]Or dered By: Dr. Villareal on 12-02-2022 MCHC (RBC) [Mass/Vol] 33.9 g/dL 32-36 [facility] No Panel InformationOrdered By: Dr. Villareal on 12-02-2022 Thyroid Stimulating Hormone (TSH) 0.95 uIU/mL 0.358-3.74 [facility] Platelets bldOrdered By: Dr. Villareal on 12-02-2022 Platelets (Bld) [#/Vol] 259 10*3/uL 150-450 [facility] Cervical or vagninal specime n microscopic examination by cytology stain (reported asOrdered By: Dr. Villareal on 10-14-2022 Cytology report Cyto stain Doc (Cvx/Vag) Comment . [facility] Comment on above: The Pap smear is a s creening test designed to aid in thedetection of premalignant and malignant conditions of theuterine cervix. It is not a diagnostic procedure andshould not be used as the sole means of detecting cervicalcancer. Both false-positive and false-negative reports dooccur. Laboratory - CytologyOrdered By: Dr. Villareal on 10-14-2022 Safety Consultant Cyto stain Nom (Cvx/Vag) [ID] Comment . [facility] Comment on above: Katherine Brennan, Cytot echnologist (ASCP) Laboratory - Miscellaneous t estsOrdered By: Dr. Villareal on 10-14-2022 Service comment (Unsp spec) [Interp] Comment . [facility] Comment on above: This liquid based Th inPrep(R) pap test was screened withthe use of an image guided system. Service comment (Unsp spec) [Interp] . . [facility] No Panel InformationOrdered By: Dr. Villareal on 10-14-2022 Human Papillomavirus Screen Comment . [facility] Comment on above: The HPV DNA reflex c kathryn were not met with this specimenresult therefore, no HPV testing was performed.Performed at: [address] [id number] Director: Machelle Ambrocio MD, Phone: [phone] Pathology report final diagnosis Narrative Comment . [facility] Comment on above: NEGATIVE FOR INTRAEP ITHELIAL LESION OR MALIGNANCY. Laboratory - Hematology and Cell countsOrdered By: Chin Edge on 09-27-2022 HbA1c (Bld) [Mass fraction] 5.3 % Normal 4.6 - 7.1 % [facility] Absolute lymphocyte counton 04-08-2022 Lymphocytes Auto (Unsp spec) [#/Vol] 3.46 10*3/uL 0.83-4.51 [facility] Work Phone: Basophil percentageon 2021 Basophils/100 WBC (Bld) 0.3 % 0-1 [facility] Work Phone: Eosinophils/100 WBC (Bld) 2.2 % 0-5 [facility] Work Phone: Neutrophils (Bld) [#/Vol] 4.8 10*3/uL 2.0-7.7 [facility] Work Phone: Neutrophils/100 WBC (Bld) 52.8 % 47-70 [facility] Work Phone: WBC (Bld) [#/Vol] 9.0 10*3/uL 4.4-11.0 [facility] Work Phone: Beta hCG serum qualon 2021 Beta HCG ( test) Ql Negative [facility] Work Phone: Blood erythrocytes count (nu mber/volume)on 04-08-2022 RBC (Bld) [#/Vol] 4.52 10*6/uL 4.2-5.[address] [facility] Work Phone: Blood hemoglobin measurement (mass/volume)on 04-08-2022 Hemoglobin (Bld) [Mass/Vol] 13.1 g/dL 12.0-15.0 [facility] Work Phone: Blood lymphocytes/100 leukoc yteson 04-08-2022 Lymphocytes/100 WBC (Bld) 38.4 % 19-41 [facility] Work Phone: Blood monocytes/100 leukocyt eson 04-08-2022 Monocytes/100 WBC (Bld) 6.1 % 0-10 [facility] Work Phone: Blood platelet mean volumeon 04-08-2022 Platelet mean volume (Bld) [Entitic vol] 9.2 fL 6.2-12.0 [facility] Work Phone: Determination of erythrocyte mean corpuscular volume (MCV)on 04-08-2022 MCV (RBC) [Entitic vol] 88.9 fL 81-99 [facility] Work Phone: [phone] Hematocrit Auto (Bld) [Volum e fraction]on 04-08-2022 Hematocrit (Bld) [Volume fraction] 40.2 % 37-47 [facility] Work Phone: [phone] Laboratory - Hematology and Cell countson 04-08-2022 Erythrocyte distribution width (RBC) [Entitic vol] 41.5 fL 35.1-43.9 [facility] Work Phone: [phone] Erythrocyte distribution width (RBC) [Ratio] 12.7 % 11.6-14.6 [facility] Work Phone: [phone] Immature granulocytes/100 WBC (Bld) 0.200 % 0.0-0.9 [facility] Work Phone: [phone] Comment on above: IG% - Immature Granu locytes (promyelocytes, myelocytes and metamyelocytes) > 1% indicates that a LEFT SHIFT is Present. MCH (RBC) [Entitic mass] 29.0 pg 27.0-32.0 [facility] Work Phone: [phone] Nucleated RBC/100 WBC (Bld) [Ratio] 0 % 0-5 [facility] Work Phone: [phone] MCHC Auto (RBC) [Mass/Vol]on 04-08-2022 MCHC (RBC) [Mass/Vol] 32.6 g/dL 32-36 [facility]: [phone] Platelets bldon 04-08-2022 Platelets (Bld) [#/Vol] 300 10*3/uL 150-450 [facility] Work Phone: [phone] 00 T3, FREEon 08-04-2021 Free T3 [Mass/Vol] 3.2 pg/mL Normal 2.3-4.2 [facility] Comment on above: Performed By: #### [id number] #### [facility] [address], [address] [place] [address] Phone Circuit Operator: Donald Robert MD T4, FREEon 08-04-2021 Free T4 [Mass/Vol] 1.1 ng/dL Normal 0.8-1.8 [facility] Comment on above: Performed By: #### [id number], [id number] #### [facility] [address] [facility], [address] Phone Circuit Operator: Donald Robert MD THYROID PEROXIDASE ANTIBODIE Son 08-04-2021 THYROID PEROXIDASE ANTIBODIES 1 IU/mL Normal <9 [facility] Comment on above: Performed By: #### 8 [id number], [id number], [id number] #### [facility] [address] [facility], [address] [place] [address] Phone Circuit Operator: Donald Robert MD Laboratory - Chemistry and C hemistry - challengeon 08-03-2021 Free T3 [Mass/Vol] 3.2 pg/mL Normal 2.3 - 4.2 pg/mL [facility], [facility].; [employer], [facility] Free T4 [Mass/Vol] 1.1 ng/dL Normal 0.8 - 1.8 ng/dL [facility], [facility].; [employer], [facility] No Panel Informationon 08-03 THYROID PEROXIDASE ANTIBODIES 1 {IU/mL} Normal [facility].; [employer], [facility] Laboratory - Microbiology an d Antimicrobial susceptibilityon 05-13-2021 S. pyogenes Ag EIA Ql (Throat) Negative Normal [employer] Vital Signs Date Time Vital Sign Value Performing Clinician Facility 03-06-2025 14:35-0400 Body height 157.48 cm Marco LUNA Work Phone: [facility] 03-06-2025 14:35-0400 Body mass index (BMI) [Ratio] 31.1 kg/m2 Marco LUNA Work Phone: [facility] 03-06-2025 14:35-0400 Body weight 77.28 kg Marco LUNA Work Phone: [facility] 03-06-2025 14:35-0400 Diastolic blood pressure 80 mm[Hg] Marco Melvin PA Work Phone: [facility] 03-06-2025 14:35-0400 Systolic blood pressure 110 mm[Hg] Marco Melvin PA Work Phone: [facility] 10-14-2024 21:58-0400 Body temperature 98.2 [degF] Marco Melvin PA Work Phone: [facility] 10-14-2024 21:58-0400 Diastolic blood pressure 87 mm[Hg] Marco Melvin PA Work Phone: [phone](767)492-636063 [place] [address] 10-14-2024 21:58-0400 Heart rate 68 /min Marco Melvin PA Work Phone: [phone](364)[phone] [place] [address] 10-14-2024 21:58-0400 Respiratory rate 12 /min Marco Melvin PA Work Phone: [phone])[phone] [place] [address] 10-14-2024 21:58-0400 SaO2% (BldA) [Mass fraction] 100 % Marco Melvin PA Work Phone: [phone])622-496763 [place] [address] 10-14-2024 21:58-0400 Systolic blood pressure 110 mm[Hg] Marco Melvin PA Work Phone: [phone] [place] [address] 10-14-2024 18:26-0400 Body height 157.48 cm Marco Melvin PA Work Phone: 5(560)754-234463 [place] [address] 10-14-2024 18:26-0400 Body mass index (BMI) [Ratio] 33.9 kg/m2 Marco Melvin PA Work Phone: [facility] 10-14-2024 18:26-0400 Body weight 84.09 kg Marco Melvin PA Work Phone: [facility] 10-13-2024 09:42-0400 Diastolic blood pressure 64 mm[Hg] Barak Covarrubias MD Work Phone: [facility] 10-13-2024 09:42-0400 Heart rate 90 /min Barak Covarrubias MD Work Phone: [facility] 10-13-2024 09:42-0400 SaO2% (BldA) [Mass fraction] 100 % Barak Covarrubias MD Work Phone: [facility] 10-13-2024 09:42-0400 Systolic blood pressure 103 mm[Hg] Barak Covarrubias MD Work Phone: [facility] 10-13-2024 06:25-0400 Body mass index (BMI) [Ratio] 34.4 kg/m2 Barak Covarrubias MD Work Phone: [facility] 10-13-2024 06:25-0400 Body weight 85.32 kg Barak Covarrubias MD Work Phone: [facility] 10-13-2024 05:31-0400 Body temperature 98.01 [degF] Barak Covarrubias MD Work Phone: [facility] 10-13-2024 05:31-0400 Respiratory rate 17 /min Barak Covarrubias MD Work Phone: [facility] 10-12-2024 03:37-0400 Body height 157.5 cm Barak Covarrubias MD Work Phone: [facility] 10-12-2024 01:59-0400 Body temperature 98.2 [degF] Marco Melvin PA Work Phone: [facility] 10-12-2024 01:59-0400 Diastolic blood pressure 73 mm[Hg] Marco Melvin PA Work Phone: [facility] 10-12-2024 01:59-0400 Heart rate 94 /min Marco Melvin PA Work Phone: [facility] 10-12-2024 01:59-0400 Respiratory rate 21 /min Marco Melvin PA Work Phone: [facility] 10-12-2024 01:59-0400 SaO2% (BldA) [Mass fraction] 96 % Marco Melvin PA Work Phone: [facility] 10-12-2024 01:59-0400 Systolic blood pressure 110 mm[Hg] Marco Melvin PA Work Phone: [facility] 10-11-2024 20:53-0400 Body height 157.48 cm Marco Melvin PA Work Phone: [facility] 10-11-2024 20:53-0400 Body mass index (BMI) [Ratio] 34.2 kg/m2 Marco Melvin PA Work Phone: [facility] 10-11-2024 20:53-0400 Body weight 84.82 kg Marco Melvin PA Work Phone: [facility] 06-19-2024 09:41-0500 Body mass index (BMI) [Ratio] 32.1 kg/m2 Marco Melvin PA Work Phone: [facility] 06-19-2024 09:41-0500 Body weight 79.83 kg Marco Melvin PA Work Phone: [facility] 06-19-2024 09:41-0500 Diastolic blood pressure 79 mm[Hg] Marco Melvin PA Work Phone: [facility] 06-19-2024 09:41-0500 Systolic blood pressure 119 mm[Hg] Marco Melvin PA Work Phone: [facility] 03-17-2024 08:30-0400 Body temperature 98.01 [degF] Rand Hallman MD Work Phone: [facility] 03-17-2024 08:30-0400 Diastolic blood pressure 74 mm[Hg] Rand Hallman MD Work Phone: [facility] 03-17-2024 08:30-0400 Heart rate 86 /min Rand Hallman MD Work Phone: [facility] 03-17-2024 08:30-0400 Respiratory rate 16 /min Rand Hallman MD Work Phone: [facility] 03-17-2024 08:30-0400 SaO2% (BldA) [Mass fraction] 99 % Rand Hallman MD Work Phone: [facility] 03-17-2024 08:30-0400 Systolic blood pressure 109 mm[Hg] Rand Hallman MD Work Phone: [facility] 03-10-2024 07:30-0400 Body height 157.5 cm Rand Hallman MD Work Phone: [facility] 03-06-2024 16:49-0400 Body mass index (BMI) [Ratio] 34.39 kg/m2 Rand Hallman MD Work Phone: [facility] 03-06-2024 16:49-0400 Body weight 85.28 kg Rand Hallman MD Work Phone: [facility] 01-18-2024 15:39-0400 Body height 156.84 cm Natalie Hopkins MA [facility].; [facility]. 01-18-2024 15:39-0400 Body mass index (BMI) [Ratio] 35.22 kg/m2 Natalie Hopkins MA [facility].; [place] [facility], [facility]. 01-18-2024 15:39-0400 Body surface area Derived from formula 1.87 m2 Natalie Hopkins MA [facility].; [place] [employer] [facility], [facility]. 01-18-2024 15:39-0400 Body weight 86.64 kg Natalie Hopkins MA [facility].; [facility]. 01-18-2024 15:39-0400 Diastolic blood pressure 75 mm[Hg] Natalie Hopkins MA [facility].; [facility] [facility]. Comment on above: Patient Position: Sitting; Cuff Location : Left Arm; Cuff Size: Standard 01-18-2024 15:39-0400 Heart rate 96 /min Natalie Hopkins MA [facility], [facility].; [facility]. Comment on above: Pattern: Regular 01-18-2024 15:39-0400 Systolic blood pressure 112 mm[Hg] Natalie Hopkins MA [facility].; [facility]. Comment on above: Patient Position: Sitting; Cuff Location : Left Arm; Cuff Size: Standard 10-25-2023 08:23-0400 Body height 157.48 cm PA Marco Melvin Work Phone: [facility] 10-25-2023 08:23-0400 Body mass index (BMI) [Ratio] 32.9 kg/m2 PA Marco Melvin Work Phone: [facility] 10-25-2023 08:23-0400 Body weight 81.64 kg PA Marco Melvin Work Phone: [facility] 10-25-2023 08:23-0400 Diastolic blood pressure 84 mm[Hg] PA Marco Melvin Work Phone: [facility] 10-25-2023 08:23-0400 Systolic blood pressure 118 mm[Hg] PA Marco Melvin Work Phone: [facility] 10-12-2023 14:55-0400 Body mass index (BMI) [Ratio] 32.4 kg/m2 PA Marco Melvin Work Phone: [facility] 10-12-2023 14:55-0400 Body weight 80.51 kg PA Marco Melvin Work Phone: 1([phone])[phone] [place] [address] 10-12-2023 14:55-0400 Diastolic blood pressure 85 mm[Hg] PA Marco Melvin Work Phone: [facility] 10-12-2023 14:55-0400 Systolic blood pressure 118 mm[Hg] PA Marco Melvin Work Phone: [facility] 09-19-2023 16:39-0400 Body temperature 97.6 [degF] PA Marco Melvin Work Phone: [facility] 09-19-2023 16:39-0400 Diastolic blood pressure 82 mm[Hg] PA Marco Melvin Work Phone: [facility] 09-19-2023 16:39-0400 Heart rate 76 /min PA Marco Melvin Work Phone: [facility] 09-19-2023 16:39-0400 Respiratory rate 15 /min PA Marco Melvin Work Phone: [facility] 09-19-2023 16:39-0400 SaO2% (BldA) [Mass fraction] 99 % PA Marco Melvin Work Phone: [facility] 09-19-2023 16:39-0400 Systolic blood pressure 129 mm[Hg] PA Marco Melvin Work Phone: [facility] 09-19-2023 12:14-0400 Body height 157.48 cm PA Marco Melvin Work Phone: [facility] 09-19-2023 12:14-0400 Body mass index (BMI) [Ratio] 31.1 kg/m2 PA Marco Melvin Work Phone: [facility] 09-19-2023 12:14-0400 Body weight 77.11 kg PA Marco Melvin Work Phone: [facility] 09-08-2023 13:11-0500 Body height 157.48 cm PA Marco Melvin Work Phone: [facility] 09-08-2023 13:10-0500 Body mass index (BMI) [Ratio] 31.4 kg/m2 PA Marco Melvin Work Phone: [facility] 09-08-2023 13:10-0500 Body weight 78.01 kg PA Marco Melvin Work Phone: [facility] 09-08-2023 13:10-0500 Diastolic blood pressure 88 mm[Hg] PA Marco Melvin Work Phone: [facility] 09-08-2023 13:10-0500 Systolic blood pressure 123 mm[Hg] PA Marco Melvin Work Phone: [facility] 02-15-2023 15:45-0400 Body height 156.84 cm Chelsea Paez MA [facility].; [facility]. 02-15-2023 15:45-0400 Body mass index (BMI) [Ratio] 28.6 kg/m2 Chelsea Paez MA [facility].; [facility]. 02-15-2023 15:45-0400 Body surface area Derived from formula 1.71 m2 Chelsea Paez MA [facility].; [facility]. 02-15-2023 15:45-0400 Body weight 70.36 kg Chelsea Paez MA [facility].; [facility]. 02-15-2023 15:45-0400 Diastolic blood pressure 79 mm[Hg] Chelsea Paez MA [facility].; [facility]. Comment on above: Patient Position: Sitting; Cuff Location : Left Arm; Cuff Size: Standard 02-15-2023 15:45-0400 Heart rate 87 /min Chelsea Paez MA [facility].; [facility]. Comment on above: Pattern: Regular 02-15-2023 15:45-0400 Systolic blood pressure 120 mm[Hg] Chelsea Paez MA [facility].; [facility]. Comment on above: Patient Position: Sitting; Cuff Location : Left Arm; Cuff Size: Standard 12-14-2022 11:30-0400 Body height 157.48 cm PA Marco Melvin Work Phone: [facility] 12-14-2022 11:28-0400 Body mass index (BMI) [Ratio] 28.3 kg/m2 PA Marco Melvin Work Phone: [facility] 12-14-2022 11:28-0400 Body weight 70.36 kg PA Marco Melvin Work Phone: [facility] 12-14-2022 11:28-0400 Diastolic blood pressure 84 mm[Hg] PA Marco Melvin Work Phone: [facility] 12-14-2022 11:28-0400 Systolic blood pressure 129 mm[Hg] PA Marco Melvin Work Phone: [facility] 12-02-2022 14:26-0400 Body temperature 97.7 [degF] PA Marco Melvin Work Phone: [facility] 12-02-2022 14:26-0400 Diastolic blood pressure 79 mm[Hg] PA Marco Melvin Work Phone: [facility] 12-02-2022 14:26-0400 Heart rate 76 /min PA Marco Melvin Work Phone: [facility] 12-02-2022 14:26-0400 Respiratory rate 16 /min PA Marco Melvin Work Phone: 3(052)[phone] [place] [address] 12-02-2022 14:26-0400 SaO2% (BldA) [Mass fraction] 97 % PA Marco Melvin Work Phone: [facility] 12-02-2022 14:26-0400 Systolic blood pressure 115 mm[Hg] PA Marco Melvin Work Phone: 5(993)092-686563 [place] [address] 12-02-2022 09:12-0400 Body height 157.48 cm PA Marco Melvin Work Phone: 4(802)[phone] [place] [address] 12-02-2022 09:12-0400 Body mass index (BMI) [Ratio] 28.1 kg/m2 PA Marco Melvin Work Phone: 5(353)012-804448 [address] 12-02-2022 09:12-0400 Body weight 69.85 kg PA Marco Melvin Work Phone: 9(257)161-369563 [place] [address] 11-09-2022 11:22-0400 Body mass index (BMI) [Ratio] 28.5 kg/m2 PA Marco Melvin Work Phone: 5(065)344-595763 [place] [address] 11-09-2022 11:22-0400 Body weight 70.93 kg PA Marco Melvin Work Phone: [facility] 11-09-2022 11:22-0400 Diastolic blood pressure 76 mm[Hg] PA Marco Melvin Work Phone: [facility] 11-09-2022 11:22-0400 Systolic blood pressure 116 mm[Hg] PA Marco Melvin Work Phone: 2(325)[phone] [place] [address] 10-14-2022 14:43-0400 Body mass index (BMI) [Ratio] 28.8 kg/m2 PA Marco Melvin Work Phone: [facility] 10-14-2022 14:43-0400 Body weight 71.44 kg PA Marco Melvin Work Phone: [facility] 10-14-2022 14:43-0400 Diastolic blood pressure 77 mm[Hg] PA Marco Melvin Work Phone: [facility] 10-14-2022 14:43-0400 Systolic blood pressure 114 mm[Hg] PA Marco Melvin Work Phone: [facility] 09-27-2022 15:56-0400 Body temperature 99.9 [degF] Chin Edge LPN [facility] [employer] [facility] 09-27-2022 15:56-0400 Body weight 73.94 kg Chin Edge LPN [facility] [employer] [facility] 09-27-2022 15:56-0400 Diastolic blood pressure 86 mm[Hg] Chin Edge LPN [facility] [employer] [facility], [facility]. Comment on above: Patient Position: Sitting; Cuff Location : Left Arm; Cuff Size: Standard 09-27-2022 15:56-0400 Heart rate 106 /min Chin Edge LPN [facility] [employer] [facility] Comment on above: Pattern: Regular 09-27-2022 15:56-0400 Systolic blood pressure 120 mm[Hg] Chin Edge LPN [facility] [employer], [facility]. Comment on above: Patient Position: Sitting; Cuff Location : Left Arm; Cuff Size: Standard 08-05-2022 10:09-0500 Body height 156.84 cm Nandini Fisher RN [place] [employer] [employer] 08-05-2022 10:09-0500 Body mass index (BMI) [Ratio] 30.24 kg/m2 Nandini Fisher RN [facility]. 08-05-2022 10:09-0500 Body surface area Derived from formula 1.75 m2 Nandini Fisher RN [facility].; [facility]. 08-05-2022 10:09-0500 Body temperature 99.8 [degF] Nandini Fisher RN [facility].; [employer]. Comment on above: Method: Tympanic 08-05-2022 10:090500 Body weight 74.39 kg Nandini Fisher RN [facility].; [place] [employer] [facility]. 08-05-2022 10:09-0500 Diastolic blood pressure 72 mm[Hg] Nandini Fisher RN [facility].; [facility]. Comment on above: Patient Position: Sitting; Cuff Location : Left Arm; Cuff Size: Standard 08-05-2022 10:09-0500 Heart rate 94 /min Nandini Fisher RN [facility].; [employer]. Comment on above: Pattern: Regular 08-05-2022 10:09-0500 Systolic blood pressure 108 mm[Hg] Nandini Fisher RN [facility].; [employer]. Comment on above: Patient Position: Sitting; Cuff Location : Left Arm; Cuff Size: Standard 05-12-2022 16:19-0500 Body height 156.84 cm Maryellen Reyes LPN [facility].; [facility]. 05-12-2022 16:19-0500 Body mass index (BMI) [Ratio] 30.05 kg/m2 Maryellen Reyes LPN [facility].; [place] [employer] [facility], [facility]. 05-12-2022 16:19-0500 Body surface area Derived from formula 1.75 m2 Maryellen Reyes LPN [facility].; [facility]. 05-12-2022 16:19-0500 Body temperature 98.5 [degF] Maryellen Reyes LPN [facility].; [employer]. Comment on above: Method: Tympanic 05-12-2022 16:19-0500 Body weight 73.94 kg Maryellen Reyes LPN [facility].; [employer], [facility]. 05-12-2022 16:19-0500 Diastolic blood pressure 87 mm[Hg] Maryellen Reyes LPN [facility].; [employer], [facility]. Comment on above: Patient Position: Sitting; Cuff Location : Left Arm; Cuff Size: Standard 05-12-2022 16:19-0500 Heart rate 92 /min Maryellen Reyes LPN [facility].; [employer], [facility]. Comment on above: Pattern: Regular 05-12-2022 16:19-0500 Inhaled oxygen concentration 20 % Maryellen Reyes LPN [facility].; [employer], [facility]. Comment on above: Room air 05-12-2022 16:19-0500 Inhaled oxygen concentration 21 % Maryellen Reyes LPN [facility] [employer], [facility]. Comment on above: Room air 05-12-2022 16:19-0500 SaO2% (BldA) [Mass fraction] 98 % Maryellen Reyes LPN [facility].; [employer], [facility] [facility]. 05-12-2022 16:19-0500 Systolic blood pressure 118 mm[Hg] Maryellen Reyes LPN [facility].; [employer], [facility] [facility]. Comment on above: Patient Position: Sitting; Cuff Location : Left Arm; Cuff Size: Standard 04-26-2022 10:40-0400 Body height 156.84 cm Maryellen Reyes LPN [facility].; [place] [employer] [facility], [facility]. 04-26-2022 10:40-0400 Body mass index (BMI) [Ratio] 30.05 kg/m2 Maryellen Reyes LPN [facility].; [employer] [facility], [facility]. 04-26-2022 10:40-0400 Body surface area Derived from formula 1.75 m2 Maryellen Reyes LPN [facility].; [employer], [facility] [facility]. 04-26-2022 10:40-0400 Body weight 73.94 kg Maryellen Reyes LPN [facility].; [employer], [facility]. 04-26-2022 10:40-0400 Diastolic blood pressure 86 mm[Hg] Maryellen Reyes LPN [facility].; [facility]. Comment on above: Patient Position: Sitting; Cuff Location : Left Arm; Cuff Size: Standard 04-26-2022 10:40-0400 Heart rate 106 /min Maryellen Reyes LPN [facility].; [facility]. Comment on above: Pattern: Regular 04-26-2022 10:40-0400 Inhaled oxygen concentration 20 % Maryellen Reyes LPN [facility].; [facility]. Comment on above: Room air 04-26-2022 10:40-0400 Inhaled oxygen concentration 21 % Maryellen Reyes LPN [facility].; [facility]. Comment on above: Room air 04-26-2022 10:40-0400 SaO2% (BldA) [Mass fraction] 100 % Maryellen Reyes LPN [facility].; [facility]. 04-26-2022 10:40-0400 Systolic blood pressure 122 mm[Hg] Maryellen Reyes LPN [facility].; [facility]. Comment on above: Patient Position: Sitting; Cuff Location : Left Arm; Cuff Size: Standard 04-08-2022 22:05-0400 Respiratory rate 14 /min [facility] Work Phone: 04-08-2022 17:52-0400 Body temperature 97.4 [degF] [facility] Work Phone: 04-08-2022 17:52-0400 Diastolic blood pressure 95 mm[Hg] [facility] Work Phone: 04-08-2022 17:52-0400 Heart rate 105 /min [facility] Work Phone: 04-08-2022 17:52-0400 SaO2% (BldA) [Mass fraction] 100 % [facility] Work Phone: 04-08-2022 17:52-0400 Systolic blood pressure 128 mm[Hg] [facility] Work Phone: 04-08-2022 17:49-0400 Body height 157.48 cm [facility] Work Phone: 04-08-2022 17:49-0400 Body mass index (BMI) [Ratio] 30.7 kg/m2 [facility] Work Phone: 04-08-2022 17:49-0400 Body weight 76.3 kg [facility] Work Phone: 02-07-2022 09:46-0400 Body height 156.84 cm Nandini Fisher RN [facility], [employer].; [employer] [facility]. 02-07-2022 09:46-0400 Body mass index (BMI) [Ratio] 29.5 kg/m2 Nandini Fisher RN [place] [employer] [facility].; [employer] [facility]. 02-07-2022 09:46-0400 Body surface area Derived from formula 1.73 m2 Nandini Fisher RN [place] [employer] [facility].; [employer] [facility]. 02-07-2022 09:46-0400 Body temperature 99.2 [degF] Nandini Fisher RN [place] [employer] [facility].; [employer]. Comment on above: Method: Tympanic 02-07-2022 09:46-0400 Body weight 72.58 kg Nandini Fisher RN [place] [employer] [facility].; [employer]. 02-07-2022 09:46-0400 Diastolic blood pressure 74 mm[Hg] Nandini Fisher RN [employer] [facility].; [employer]. Comment on above: Patient Position: Sitting; Cuff Location : Left Arm; Cuff Size: Standard 02-07-2022 09:46-0400 Heart rate 84 /min Nandini Fisher RN [employer] [facility].; [employer]. Comment on above: Pattern: Regular 02-07-2022 09:46-0400 Inhaled oxygen concentration 20 % Nandini Fisher RN [place] [employer] [facility].; [employer]. Comment on above: Room air 02-07-2022 09:46-0400 Inhaled oxygen concentration 21 % Nandini Fisher RN [facility].; [place] [employer] [facility]. Comment on above: Room air 02-07-2022 09:46-0400 SaO2% (BldA) [Mass fraction] 99 % Nandini Fisher RN [facility].; [facility]. 02-07-2022 09:46-0400 Systolic blood pressure 112 mm[Hg] Nandini Fisher RN [facility].; [employer]. Comment on above: Patient Position: Sitting; Cuff Location : Left Arm; Cuff Size: Standard 12-01-2021 15:44-0400 Body height 156.84 cm Maryellen Reyes LPN [facility], [facility].; [place] [employer] [facility], [facility]. 12-01-2021 15:44-0400 Body mass index (BMI) [Ratio] 29.13 kg/m2 Maryellen Reyes LPN [facility], [facility].; [place] [employer] [facility], [facility]. 12-01-2021 15:44-0400 Body surface area Derived from formula 1.72 m2 Maryellen Reyes LPN [facility], [facility].; [place] [employer] [facility], [facility]. 12-01-2021 15:44-0400 Body weight 71.67 kg Maryellen Reyes LPN [facility], [facility].; [employer] [facility], [facility]. 12-01-2021 15:44-0400 Diastolic blood pressure 79 mm[Hg] Maryellen Reyes LPN [facility], [facility].; [employer]. Comment on above: Patient Position: Sitting; Cuff Location : Left Arm; Cuff Size: Standard 12-01-2021 15:44-0400 Heart rate 75 /min Maryellen Reyes LPN [facility], [facility].; [employer], [employer]. Comment on above: Pattern: Regular 12-01-2021 15:44-0400 Systolic blood pressure 113 mm[Hg] Maryellen Reyes LPN [facility], [facility].; [employer], [employer]. Comment on above: Patient Position: Sitting; Cuff Location : Left Arm; Cuff Size: Standard 08-03-2021 16:09-0500 Body height 156.84 cm Maryellen Reyes LPN [facility], [facility].; [facility], [facility]. 08-03-2021 16:09-0500 Body mass index (BMI) [Ratio] 27.47 kg/m2 Maryellen Reyes LPN [facility], Inc.; [facility], [facility] 08-03-2021 16:09-0500 Body surface area Derived from formula 1.68 m2 Maryellen Reyes LPN [facility], [facility].; [facility], [facility]. 08-03-2021 16:09-0500 Body weight 67.59 kg Maryellen Reyes LPN [facility], [facility].; [facility], [facility]. 08-03-2021 16:09-0500 Diastolic blood pressure 88 mm[Hg] Maryellen Reyes LPN [facility], [facility].; [place] [employer] [facility], [facility]. Comment on above: Patient Position: Sitting; Cuff Location : Left Arm; Cuff Size: Standard 08-03-2021 16:09-0500 Heart rate 85 /min Maryellen Reyes LPN [facility], [facility].; [place] [employer], [facility]. Comment on above: Pattern: Regular 08-03-2021 16:09-0500 Systolic blood pressure 125 mm[Hg] Maryellen Reyes LPN [facility], [facility].; [place] [employer] [facility], [facility]. Comment on above: Patient Position: Sitting; Cuff Location : Left Arm; Cuff Size: Standard 05-13-2021 15:58-0500 Body height 156.84 cm Alysia Mar LPN [facility], [facility].; [facility], [facility]. 05-13-2021 15:58-0500 Body mass index (BMI) [Ratio] 26.55 kg/m2 Alysia Mar LPN [facility], [facility].; [facility], [facility]. 05-13-2021 15:58-0500 Body surface area Derived from formula 1.66 m2 Alysia Mar LPN [facility], [facility].; [facility], [facility]. 05-13-2021 15:58-0500 Body temperature 99.2 [degF] Alysia Mar [facility], [facility].; [facility], Inc. Comment on above: Method: Tympanic 05-13-2021 15:58-0500 Body weight 65.32 kg Alysiamadelyn Mar LPN [facility], [facility].; [facility], Inc. 05-13-2021 15:58-0500 Diastolic blood pressure 80 mm[Hg] Alysiamadelyn Mar [facility], Inc.; [place] [employer], [employer] Comment on above: Patient Position: Sitting; Cuff Location : Left Arm; Cuff Size: Standard 05-13-2021 15:58-0500 Heart rate 92 /min Alysiamadelyn Mar [facility], [facility].; [place] [employer], Inc[employer] Comment on above: Pattern: Regular 05-13-2021 15:58-0500 Systolic blood pressure 113 mm[Hg] [facility] [place] [employer], Inc. Comment on above: Patient Position: Sitting; Cuff Location : Left Arm; Cuff Size: Standard 04-26-2021 16:14-0400 Body height 156.84 cm Alysiamadelyn Mar CONTINUOUS IMPROVEMENT LEAD [facility], Inc.; [place] [employer], Inc[employer] 04-26-2021 16:14-0400 Body mass index (BMI) [Ratio] 26.74 kg/m2 [facility], [facility].; [place] [employer], Inc. 04-26-2021 16:14-0400 Body surface area Derived from formula 1.66 m2 [facility], [facility].; [place] [employer] [facility], Inc. 04-26-2021 16:14-0400 Body weight 65.77 kg A[facility]adelyn [facility], [facility].; [place] [employer], [employer]. 04-26-2021 16:14-0400 Diastolic blood pressure 78 mm[Hg] Alysiamadelyn Mar [facility], [facility].; [place] [employer], Inc. Comment on above: Patient Position: Sitting; Cuff Location : Left Arm; Cuff Size: Standard 04-26-2021 16:14-0400 Heart rate 106 /min Alysiamadelyn Mar CONTINUOUS IMPROVEMENT LEAD [facility], Inc.; [employer]. Comment on above: Pattern: Regular 04-26-2021 16:14-0400 Systolic blood pressure 114 mm[Hg] Alysia Mar LPN [facility] [employer]. Comment on above: Patient Position: Sitting; Cuff Location : Left Arm; Cuff Size: Standard 01-31-2020 15:35-0400 Body height 156.84 cm Marco Melvin PA-C Work Phone: [email or web address]; [employer]. 01-31-2020 15:35-0400 Body mass index (BMI) [Ratio] 26.55 kg/m2 Marco Melvin PA-C Work Phone: [email or web address]; [employer]. 01-31-2020 15:35-0400 Body surface area Derived from formula 1.66 m2 Marco Melvin PA-C Work Phone: [email or web address]; [employer] 01-31-2020 15:35-0400 Body weight 65.32 kg Marco Melvin PA-C Work Phone: [email or web address]; [employer]. 01-31-2020 15:35-0400 Diastolic blood pressure 74 mm[Hg] Marco Melvin PA-C Work Phone: [email or web address]; [employer]. Comment on above: Patient Position: Sitting; Cuff Location : Left Arm; Cuff Size: Standard 01-31-2020 15:35-0400 Heart rate 80 /min Marco Melvin PA-C Work Phone: [email or web address]; [employer]. Comment on above: Pattern: Regular 01-31-2020 15:35-0400 Systolic blood pressure 107 mm[Hg] Marco Melvin PA-C Work Phone: [email or web address]; [employer] Comment on above: Patient Position: Sitting; Cuff Location : Left Arm; Cuff Size: Standard Encounters Encounter Date Encounter Type Care Provider Facility Start: 05-12-2025 End: 05-12-2025 ambulatory JOHN NAYLOR MD Facility:A Start: 04-07-2025 End: 04-07-2025 ambulatory YOLA BRINKANTONIA [facility] Start: 04-02-[address] Joe Schaffer MD -Laboratory Work Phone: Start: 04-02-2025 End: 04-02-2025 ambulatory Yola Schaffer Facility:[facility] Start: 03-31-2025 End: 03-31-2025 ambulatory Marco Melvin PA Work Phone: -Laboratory Start: 03-31-2025 End: 03-31-[address] Yola Schaffer MD -Laboratory Work Phone: Start: 03-31-2025 End: 03-31-2025 ambulatory Yola Schaffer Facility:[facility] Start: 03-28-2025 End: 03-28-2025 ambulatory Marco Melvin PA Work Phone: -Laboratory Start: 03-28-2025 End: 03-28-[address] Yola Schaffer MD -Laboratory Work Phone: Start: 03-28-2025 End: 03-28-2025 ambulatory Yola Schaffer Facility:[facility] Start: 03-24-2025 End: 03-24-2025 ambulatory Marco Melvin PA Work Phone: -Laboratory Start: 03-24-2025 End: 03-24-[address] Yola Schaffer MD -Laboratory Work Phone: Start: 03-24-2025 End: 03-24-2025 ambulatory Marco Melvin Facility:[facility] Start: 03-12-2025 End: 03-12-2025 ambulatory JOHN NAYLOR MD Facility:A Start: 03-10-2025 End: 03-10-2025 ambulatory JOHN NAYLOR MD Facility:A Start: 03-07-2025 End: 03-07-2025 ambulatory JOHN NAYLOR MD Facility:A Start: 03-06-2025 End: 03-06-[address] [facility] Start: 03-06-2025 End: 03-06-[address] Julianna Newman DO [facility] Start: 03-06-2025 End: 03-06-2025 ambulatory Marco Melvin PA Work Phone: -[facility] Start: 02-28-2025 End: 02-28-2025 ambulatory MARCOJOHN MELVIN PA-C Facility:A Start: 10-14-2024 End: 10-14-2024 Emergency department patient visit Marcojohn Melvin PA Work Phone: -Emergency Department Work Phone: Start: 10-12-2024 End: 10-13-2024 Evaluation and management of inpatient Barak Covarrubias MD Work Phone: [facility] Medical Surgical Unit [facility] H5 Comment on above: Ovarian hyperstimula tion syndrome (Primary Dx) Start: 10-11-2024 End: 10-12-2024 Emergency department patient visit Marcojohn Melvin PA Work Phone: -Emergency Department Work Phone: Start: 10-07-2024 End: 10-07-2024 ambulatory MARCOJOHN MELVIN PA-C Facility:A Start: 08-15-2024 End: 08-15-[address] Julianna Newman DO [facility] Work Phone: Start: 08-15-2024 End: 08-15-2024 [facility] Start: 06-19-2024 End: 06-19-2024 Patient encounter procedure Lilly REYES -Laboratory, Specimen Work Phone: Start: 06-19-2024 End: 06-19-2024 Patient encounter procedure Lilly REYES -[facility] Work Phone: Start: 06-19-2024 End: 06-19-2024 ambulatory Marco Melvin Facility:[facility] Start: 06-19-2024 End: 06-19-2024 ambulatory Marco Melvin Facility:[facility] Start: 06-11-2024 ambulatory Marco Melvin Facility:[facility] Start: 05-15-2024 End: 05-15-2024 ambulatory [facility] Start: 05-14-2024 End: 05-14-2024 ambulatory [facility] Start: 05-07-2024 End: 05-07-2024 ambulatory [facility] Start: 04-25-2024 End: 04-25-2024 ambulatory [facility] Start: 04-10-2024 End: 04-10-2024 Subsequent hospital visit by physician Lucila Ho DO Work Phone: [facility] Comment on above: History of gestation al diabetes Start: 04-10-2024 End: 04-10-[address] [facility] Start: 03-28-2024 End: 03-28-[address] [facility] Start: 03-06-2024 End: 03-17-2024 Evaluation and management of inpatient Rand Hallman MD Work Phone: [facility] Comment on above: S/P (Prima ry Dx); Anhydramnios in third trimester, single or unspecified fetus; Vaginal bleeding in , third trimester Start: 01-19-2024 End: 01-19-2024 ambulatory DENNY Hughes [facility] Start: 01-18-2024 End: 01-18-2024 Office outpatient visit 15 minutes Marco LUNA-C Work Phone: [employer] [facility] Start: 12-28-2023 End: 12-28-2023 ambulatory SAUMYA MANCIA [facility] Start: 12-12-2023 End: 12-12-2023 Telephone follow-up Marco Melvin PA-C Work Phone: [employer] [facility] Start: 10-25-2023 End: 10-25-2023 ambulatory PA Marco Melvin Work Phone: [facility] Work Phone: Start: 10-25-2023 End: 10-25-2023 Patient encounter procedure PA Marco Melvin Work Phone: [facility] Work Phone: Start: 10-12-2023 End: 10-12-2023 ambulatory PA Marco Melvin Work Phone: [facility] Work Phone: Start: 10-12-2023 End: 10-12-2023 Patient encounter procedure PA Marco Melvin Work Phone: [facility]-Laboratory, Specimen Work Phone: Start: 10-12-2023 End: 10-12-2023 Patient encounter procedure PA Marco Melvin Work Phone: [facility] Work Phone: Start: 09-29-2023 End: 09-29-2023 ambulatory PA Marco Melvin Work Phone: [facility] Work Phone: Start: 09-29-2023 End: 09-29-2023 Patient encounter procedure PA Marco Melvin Work Phone: [facility]-Ultrasound, [facility] Work Phone: Start: 09-22-2023 End: 09-22-2023 ambulatory PA Marco Melvin Work Phone: [facility] Work Phone: Start: 09-22-2023 End: 09-22-2023 Patient encounter procedure PA Marco Melvin Work Phone: [facility]-Outpatient Pavilion Ultrasound Work Phone: Start: 09-19-2023 End: 09-19-2023 Emergency department patient visit PA Marco Melvin Work Phone: [facility]-Emergency Department Work Phone: Start: 09-15-2023 End: 09-15-2023 ambulatory PA Marco Melvin Work Phone: [facility] Work Phone: Start: 09-15-2023 End: 09-15-2023 Patient encounter procedure PA Marco Melvin Work Phone: [facility]-Laboratory Work Phone: Start: 09-13-2023 End: 09-13-2023 ambulatory PA Marco Melvin Work Phone: [facility] Work Phone: Start: 09-13-2023 End: 09-13-2023 [facility] encounter [facility] Start: 2023 End: 2023 ambulatory PA Marco Melvin Work Phone: [facility] Work Phone: Start: 2023 End: 2023 Patient encounter procedure PA [facility] Start: 09-08-2023 End: 09-08-2023 Patient encounter procedure PA Marco Melvin Work Phone: [facility] Work Phone: Start: 09-06-2023 End: 09-06-2023 ambulatory PA Marco Melvin Work Phone: [facility] Work Phone: Start: 09-06-2023 End: 09-06-2023 Patient encounter procedure PA [facility] Start: 08-25-2023 End: 08-25-2023 ambulatory [facility] Work Phone: Start: 08-25-2023 End: 08-25-2023 Patient encounter procedure Jacey [facility] Work Phone: Start: 08-23-2023 End: 08-23-2023 [facility] Start: 08-21-2023 End: 08-21-2023 ambulatory [facility] Work Phone: Start: 08-21-2023 End: 08-21-2023 [facility] Start: 08-15-2023 End: 08-15-2023 ambulatory [facility] Work Phone: Start: 08-15-2023 End: 08-15-2023 [facility] Start: 08-07-2023 End: 08-07-2023 [facility]: Start: 08-05-2023 End: 08-05-2023 ambulatory [facility] Work Phone: Start: 08-05-2023 End: 08-05-2023 [facility] Start: 08-03-2023 End: 08-03-2023 ambulatory [facility] Work Phone: Start: 08-03-2023 End: 08-03-2023 [facility]: Start: 07-29-2023 End: 07-29-2023 ambulatory [facility] Work Phone: Start: 07-29-2023 End: 07-29-2023 [facility]: Start: 03-07-2023 End: 03-07-2023 ambulatory PA Marco Melvin Work Phone: [facility] Work Phone: Start: 03-07-2023 End: 03-07-2023 Patient encounter procedure PA Marcojohn Melvin Work Phone: [facility]-Laboratory Work Phone: Start: 02-15-2023 End: 02-15-2023 Periodic preventive med est patient 18-39 yrs Marco Melvin PA-C Work Phone: [facility] Start: 02-15-2023 End: 02-15-2023 Physical examination Marco Melvin PA-C Work Phone: [facility]; [employer] Start: 01-20-2023 End: 01-20-2023 Patient encounter procedure PA Marco Melvin Work Phone: [facility]-Laboratory Work Phone: Start: 12-14-2022 End: 12-14-2022 Patient encounter procedure PA Marco Melvin Work Phone: [facility] Work Phone: Start: 12-02-2022 Non-patient / Non-visit PA Melonie Melvin Work Phone: [facility] Start: 12-02-2022 End: 12-02-2022 Admission to same day surgery center PA Marco Melvin Work Phone: [facility]-Surgical Day Care Start: 12-02-2022 End: 12-02-2022 ambulatory PA Marco Melvin Work Phone: [facility] Work Phone: Start: 11-09-2022 End: 11-09-2022 Patient encounter procedure PA Marco Melvin Work Phone: [facility] Start: 10-19-2022 End: 10-19-2022 Patient encounter procedure PA Marco Melvin Work Phone: [facility] Start: 10-14-2022 End: 10-14-2022 Patient encounter procedure PA Marco Melvin Work Phone: [facility] Start: 10-14-2022 End: 10-14-2022 Patient encounter procedure PA Marco Melvin Work Phone: [facility] Start: 09-27-2022 End: 09-27-2022 Office outpatient visit 15 minutes Marco Mevlin PA-C Work Phone: [employer] Start: 08-05-2022 End: 08-05-2022 Office outpatient visit 15 minutes Marco Melvin PA-C Work Phone: [employer] Start: 05-12-2022 End: 05-12-2022 Office outpatient visit 15 minutes Marco Melvin PA-C Work Phone: [employer] Start: 04-26-2022 End: 04-26-2022 Office outpatient visit 25 minutes Marco Melvin PA-C Work Phone: [employer] Start: 04-12-2022 End: 04-12-2022 Telephone follow-up Marco Melvin PA-C Work Phone: [employer] Start: 04-08-2022 End: 04-08-2022 Emergency department patient visit [facility]-Emergency Department Start: 04-08-2022 Telephone encounter Hodan casas APRN.CNM Work Phone: OB/Gynecology Comment on above: Heavy Bleeding Start: 02-07-2022 End: 02-07-2022 Office outpatient visit 15 minutes Marco Melvin PA-C Work Phone: [employer] Start: 12-01-2021 End: 12-01-2021 Office outpatient visit 15 minutes Marco Melvin PA-C Work Phone: [employer] Start: 08-03-2021 End: 08-03-2021 Office outpatient visit 15 minutes Marco Melvin PA-C Work Phone: [employer] Start: 05-13-2021 End: 05-13-2021 Office outpatient visit 15 minutes Marco Melvin PA-C Work Phone: [employer] Start: 04-26-2021 End: 04-26-2021 Office outpatient visit 15 minutes Marco Melvin PA-C Work Phone: [employer] Start: 02-27-2020 End: 02-27-2020 Patient encounter procedure Marco Melvin PA-C Work Phone: [employer] Start: 01-31-2020 End: 01-31-2020 Office outpatient new 30 minutes Marco Melvin PA-C Work Phone: [employer] Procedures Date Procedure Procedure Detail Performing Clinician Start: 04-02-2025 Serum progesterone measurement Marco Melvin PA Work Phone: Comment on above: Follicular phase 0.1 - 0.9 Luteal phase 1.8 - 23.9 Ovulation phase 0.1 - 12.0 First trimester 11.0 - 44.3 Second trimester 25.4 - 83.3 Third trimester 58.7 - 214.0 Postmenopausal 0.0 - 0.1Performed at: [facility] [address] [id number] Director: Heri Louis PhD, Phone: [phone] Start: 03-31-2025 Serum progesterone measurement Marco Melvin PA Work Phone: Comment on above: Follicular phase 0.1 - 0.9 Luteal phase 1.8 - 23.9 Ovulation phase 0.1 - 12.0 First trimester 11.0 - 44.3 Second trimester 25.4 - 83.3 Third trimester 58.7 - 214.0 Postmenopausal 0.0 - 0.1Performed at: [facility] [address] [id number] Director: Heri Loius PhD, Phone: [phone] Start: 03-28-2025 Serum progesterone measurement Marco Melvin PA Work Phone: Comment on above: Follicular phase 0.1 - 0.9 Luteal phase 1.8 - 23.9 Ovulation phase 0.1 - 12.0 First trimester 11.0 - 44.3 Second trimester 25.4 - 83.3 Third trimester 58.7 - 214.0 Postmenopausal 0.0 - 0.1Performed at: [address] [id number] Director: Heri Louis PhD, Phone: [phone] Start: 03-24-2025 Serum progesterone measurement Marco Melvin PA Work Phone: Comment on above: Follicular phase 0.1 - 0.9 Luteal phase 1.8 - 23.9 Ovulation phase 0.1 - 12.0 First trimester 11.0 - 44.3 Second trimester 25.4 - 83.3 Third trimester 58.7 - 214.0 Postmenopausal 0.0 - 0.1Performed at: [facility] [place] [id number] Director: Heri Louis PhD, Phone: [phone] Start: 10-14-2024 Plain X-ray abdomen Melonie ecca [...] Work Phone: Start: 04-10-2024 GLUCOSE 2HR CHALLENGE Chris Ho DO Work Phone: Start: 04-10-2024 Glucose [...] Work Phone: Start: 03-15-2024 OXYGEN THERAPY [facility]yn [facility] [employer] 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: Start: 03-15-2024 Glucose quantitative blood [...] 03-14-2024 End: 03-14-2024 delivery only Maria Dolores Sarmiento Work Phone: Start: 03-14-2024 Glucose quantitative blood xcpt reagent strip Rand Hallman MD Work Phone: Start: 03-14-2024 Us preg uterus real time f/u trnsabdl per fetus Juliana Nguyen DO Work Phone: Start: 03-14-2024 Glucose quantitative blood xcpt reagent strip Rand Hallman MD Work Phone: Start: 03-14-2024 Antibody screen BARAK MEYERS[employer]ER Comment on above: Performed By: #### L [id number] ####Phone Circuit Operator: GYPSY DAY ([phone])[facility] ([facility])[address] [place] [address] Start: 03-14-2024 Blood typing serolog ic rh (d) Savanah Gerald DO Work Phone: Start: 03-13-2024 Glucose quantitative [...] Work Phone: Start: 03-10-2024 Antibody screen BARAK MEYERS[facility]ER Comment on above: Performed By: #### L [id number] ####Phone Circuit Operator: GYPSY DAY ([phone])[facility] ([address] Start: 03-10-2024 Blood typing serologic abo [...] Work Phone: Start: 03-06-2024 Antibody screen BARAK MEYERSXLER Comment on above: Order Comment: HOLD. Specimen is valid for 3 days - nurse to verify valid specimen Performed By: #### L [id number] ####Phone Circuit Operator: GYPSY DAY ([phone])[facility] BLOOD [facility] ([address] Start: 03-06-2024 Blood count complete automated Dali Hall MD Work Phone: Start: 03-06-2024 Blood typing serologic abo Dali Hall MD Work Phone: Start: 03-06-2024 Adult depression scr eening assessment Rand Hallman MD Work Phone: Start: 10-25-2023 Urine culture PA Francc a Melvin Work Phone: Start: 09-29-2023 Transvaginal obstetr ic ultrasonography PA Marco Melvin Work Phone: Start: 09-22-2023 Transvaginal obstetr ic ultrasonography PA Marco Melvin Work Phone: Start: 09-19-2023 Transvaginal obstetr ic ultrasonography PA Marco Melvin Work Phone: Start: 02-15-2023 End: 02-14-2023 Depression screening Marco J Melvin PA-C Work Phone: Start: 02-15-2023 End: 02-14-2023 Scr dep neg, no plan reqd Marco J Melvin PA-C Work Phone: Start: 12-02-2022 Laparoscopy PA Marco Melvin Work Phone: Start: 10-19-2022 US scan of thyroid CHERYL duarteecca Melvin Work Phone: H/O: section S/P Cece Hallman MD Work Phone: Plan of Treatment Date Care Activity Detail Author Start: 2072 RSV Immunization for Adults (1 - 1-dose 75+ series) RSV Immunization for Adults (1 - 1-dose 75+ series) [facility] Start: 09-12-2047 Zoster Vaccines (1 of 2) Zoste r Vaccines (1 of 2) [facility] Start: 02-27-2034 DTaP/Tdap/Td Vaccine s (9 - Td or Tdap) DTaP/Tdap/Td Vaccines (9 - Td or Tdap) [facility] Start: 03-31-2025 Patient encounter procedure Registered Clinical -Laboratory Work Phone: Start: 03-06-2025 Depression Screening Depression Scre ening [facility] Start: 03-03-2025 Influenza vaccination Influenz a Vaccine (Season Ended) [facility] Start: 10-14-2024 End: 10-14-2024 [facility] Start: 10-14-2024 Bacteria identified in Urine by Culture Urine Culture [facility] Start: 10-11-2024 [facility] Start: 10-11-2024 Removal of urinary catheter [facility] Start: 09-03-2024 Depression Monitoring Depression Mon [facility] Start: 06-19-2024 Patient referral [facility] Work Phone: Start: 05-03-2024 Diabetes mellitus screening Diabetes Screening [facility] Start: 04-25-2024 End: 04-25-2024 Patient encounter procedure 04/25/2024 10:00 AM EDT Office Visit [facility] [address], [place] [id number] Julianna Ferraro, [employer] ATTACHER-NITRILES [place] [address] 4 WEEKS POST [facility] Comment on above: 4 WEEKS POST Start: 03-23-2024 RSV Immunization age d 60 or older (1 - Risk 1-dose series) RSV Immunization aged 60 or older (1 - Risk 1-dose series) [facility] Start: 03-03-2024 COVID-19 (2023-2 5 season) COVID-19 ( season) [facility] Start: 03-03-2024 COVID-19 Vaccine ( season) COVID-19 Vaccine ( season) [facility] Start: 03-03-2024 FLU (#1) FLU (#1) [facility] Start: 03-03-2024 Influenza vaccination Influenza Vacc ine (#1) [facility] Start: 09-19-2023 [facility] Start: 09-19-2023 Transvaginal obstetr ic ultrasonography [facility] Start: 12-02-2022 Anesthesia intraperitoneal lower abd w/laps nos ANESTH SURG LOWER ABDOMEN [facility] Start: 12-02-[address] w/materials REOPEN FALLOPIAN TUBE [facility] Start: 12-02-2022 Laps abd prtm&omentu m dx w/wo spec br/wa spx DIAG LAPARO SEPARATE PROC [facility] Start: 12-02-2022 Ambulation without limitation [facility] Start: 12-02-2022 Medical regimen orde rs management [facility] Start: 12-02-2022 Medication education [facility] Start: 12-02-2022 Patient discharge [facility] Start: 12-02-2022 Procedure discontinued [facility] Start: 12-02-2022 Taking patient vital signs [facility] Start: 12-02-2022 Vital signs measurements [facility] Start: 12-02-2022 [facility] Start: 12-02-2022 Admission procedure [facility] Start: 03-03-2022 Influenza vaccination INFLUENZA (#1) [facility] Start: 10-17-2021 PAP TESTING PAP TESTING [facility] Start: 07-03-2021 DEPRESSION ASSESSMENT DEPRESSION ASS ESSMENT [facility] Start: 04-02-2021 COVID-19 Vaccine (3 - Moderna risk series) COVID-19 Vaccine (3 - Moderna risk series) [facility] Start: 03-01-2020 Urine microalbumin profile DTAP,TDAP,TD (5 - Td or Tdap) [facility] Start: 2018 Microscopic observat ion [Identifier] in Cervix by Cyto stain Pap Smear [facility] Start: 2018 Screening for malign ant neoplasm of cervix Pap Smear [facility] Start: 2016 Hepatitis B (1 of 3 - 19+ 3-dose series) Hepatitis B (1 of 3 - 19+ 3-dose series) [facility] Start: 2016 Pneumococcal Vaccine : Pediatrics (0 to 5 Years) and At-Risk Patients (6 to 49 Years) (1 of 2 - PCV) Pneumococcal Vaccine: Pediatrics (0 to 5 Years) and At-Risk Patients (6 to 49 Years) (1 of 2 - PCV) [facility] Start: 2016 Zoster Vaccines (1 of 2) Zoste r Vaccines (1 of 2) [facility] Start: 09-12-2015 HEPATITIS C SCREENING HEPATITIS C [facility] Start: 09-12-2015 Hepatitis C screening Hepatitis C [facility] Start: 09-12-2015 HIV SCREENING HIV SCREENING [facility] Start: 2013 MenB (1 of 2 - MenB 2-Dose Series Bexsero) MenB (1 of 2 - MenB 2-Dose Series Bexsero) [facility] Start: 2012 HPV (1 - 3-dose series) HPV (1 - 3-d ose series) [facility] Start: 09-12-2011 PEDS TO ADULT TRANSI TION ANNUAL ASSESSMENT PEDS TO ADULT TRANSITION ANNUAL ASSESSMENT [facility] Start: 2010 Varicella (1 of 2 - 13+ 2-dose series) Varicella (1 of 2 - 13+ 2-dose series) [facility] Start: 2009 PEDS TO ADULT TRANSI TION INITIAL DISCUSSION PEDS TO ADULT TRANSITION INITIAL DISCUSSION [facility] Start: 09-12-2007 MENINGOCOCCAL B: Con fundraising officer based on risk (1 of 2 - Risk Bexsero 2-dose series) MENINGOCOCCAL B: Consider based on risk (1 of 2 - Risk Bexsero 2-dose series) [facility] Start: 2004 Tetanus Diphtheria a nd Pertussis Vaccines (1 - Tdap) Tetanus Diphtheria and Pertussis Vaccines (1 - Tdap) [facility] Start: 1998 MMR (1 of 1 - Standa rd series) MMR (1 of 1 - Standard series) [facility] Start: 03-14-1998 COVID-19 VACCINE (#1) COVID-19 VACCI NE (#1) [facility] Start: 1997 Hemoglobin A1c/Hemoglobin.total in Blood HbA1c [facility] Start: 1997 HIV screening [facility] Start: 1997 Lipid panel Lipid Panel [facility] CBC W Auto Different ial panel - Blood [facility] Hemoglobin A1c/Hemoglobin.total in Blood [facility] Hepatitis B surface antigen measurement [facility] Hepatitis C antibody measurement [facility] HIV 1+2 Ab+HIV1 p24 Ag [Presence] in Serum or Plasma by Immunoassay [facility] Patient Education [facility] Work Phone: Patient referral [facility] Work Phone: End: 03-06-2024 POCT Fern Test [facility] Differential Work Phone: Comment on above: Once (Lab) for 1 Occ urrences starting 03/06/2024 until 03/06/2024 Prolactin [Mass/volu me] in Serum or Plasma [facility] Rubella IgG measurement [facility] Treponema sp Ab [Presence] in Serum [facility] Urine culture [facility] Immunizations Immunization Date Immunization Notes Care Provider Alex javier 02-28-2024 tetanus toxoid, redu ashley diphtheria toxoid, and acellular pertussis vaccine, adsorbed Marco LUNA Work Phone: [facility] 03-28-2019 influenza virus vaccine, unspecified formulation Hodan Jacob APRN.CNCheyenne Work Phone: [facility] Work Phone: 04-15-2014 influenza, injectabl e, quadrivalent, contains preservative Hodan Jacob APRN.CNM Work Phone: [facility] 09-06-2010 human papilloma viru s vaccine, quadrivalent Hodan Jacob APRN.CNCheyenne Work Phone: [facility] Work Phone: 09-06-2010 Human Papillomavirus 9-valent vaccine Hodan Jacob APRN.CNM Work Phone: [facility] 06-07-2010 human papilloma viru s vaccine, quadrivalent Hodan Jacob APRN.CNM Work Phone: [facility] Work Phone: 06-07-2010 Human Papillomavirus 9-valent vaccine Hodan Jacob APRN.CNM Work Phone: [facility] 03-01-2010 human papilloma viru s vaccine, quadrivalent Hodan Jacob APRN.CNM Work Phone: [facility] Work Phone: 03-01-2010 Human Papillomavirus 9-valent vaccine Hodan Jacob APRN.CNM Work Phone: [facility] 03-01-2010 meningococcal polysaccharide (groups A, C, Y and W-135) diphtheria toxoid conjugate vaccine (MCV4P) Hodan Jacob APRN.CNM Work Phone: [facility] Work Phone: 03-01-2010 meningococcal polysaccharide vaccine (MPSV4) Hodan Jacob APRN.CNM Work Phone: [facility] 03-01-2010 tetanus toxoid, redu ashley diphtheria toxoid, and acellular pertussis vaccine, adsorbed Hodan Jacob APRN.CNM Work Phone: [facility] Work Phone: 03-01-2010 varicella virus vaccine Raquel Jacob APRN.CNM Work Phone: [facility] Work Phone: 02-02-2010 tetanus toxoid, redu ashley diphtheria toxoid, and acellular pertussis vaccine, adsorbed Hodan Jacob APRN.CNM Work Phone: [facility] 11-04-2002 diphtheria, tetanus toxoids and acellular pertussis vaccine, 5 pertussis antigens Hodan Jacob APRN.CNM Work Phone: [facility] 11-04-2002 diphtheria, tetanus toxoids and acellular pertussis vaccine, unspecified formulation Hodan Jacob [employer] ATTACHER.CNM Work Phone: [facility] Work Phone: 11-04-2002 measles, mumps and rubella virus vaccine Hodanespinoza Jacob APRN.CNM Work Phone: [facility] Work Phone: 11-04-2002 measles, mumps, rubella, and varicella virus vaccine Hodanespinoza Jacob APRN.CNM Work Phone: [facility] 11-04-2002 poliovirus vaccine, inactivated Hodanespinoza Jacob [employer] ATTACHER.CNM Work Phone: [facility] Work Phone: 10-22-1999 varicella virus vaccine Raquelap doran Cecil [employer] ATTACHER.CNM Work Phone: [facility] 10-11-1999 varicella virus vaccine Raquel espinoza Jacob [employer] ATTACHER.CNM Work Phone: [facility] Work Phone: 06-07-1999 diphtheria, tetanus toxoids and acellular pertussis vaccine, 5 pertussis antigens Hodan Jacob APRN.CNM Work Phone: [facility] 10-26-1998 measles, mumps, rubella, and varicella virus vaccine Hodanespinoza Jacob APRN.CNM Work Phone: [facility] 10-21-1998 haemophilus influenz ae type b conjugate and Hepatitis B vaccine Hodanespinoza Jacob APRN.CNM Work Phone: [facility] Work Phone: 10-21-1998 haemophilus influenz ae type b vaccine, HbOC conjugate Hodanepsinoza Jacob APRN.CNM Work Phone: [facility] 10-21-1998 hepatitis B immune globulin Hodan Jacob APRN.CNM Work Phone: [facility] 10-21-1998 measles, mumps and rubella virus vaccine Hodan Jacob APRN.CNM Work Phone: [facility] Work Phone: 04-22-1998 diphtheria, tetanus toxoids and acellular pertussis vaccine, 5 pertussis antigens Hodanespinoza Jacob [employer] ATTACHER.CNM Work Phone: [facility] 04-22-1998 haemophilus influenz ae type b vaccine, HbOC conjugate Hodanespinoza Jacob [employer] ATTACHER.CNM Work Phone: [facility] 04-22-1998 poliovirus vaccine, inactivated Hodan Jacob [employer] ATTACHER.CNM Work Phone: [facility] 01-14-1998 diphtheria, tetanus toxoids and acellular pertussis vaccine, 5 pertussis antigens Hodanespinoza Jacob [employer]ACH[employer]OR[employer] ATTACHER.CNM Work Phone: [facility] 01-14-1998 haemophilus influenz ae type b vaccine, HbOC conjugate Hodanespinoza Jacob [employer]ACH[employer] ATTACHER.CNM Work Phone: [facility] 01-14-1998 poliovirus vaccine, inactivated Hodan Jacob [employer]ACH[employer] ACC[employer] ATTACHER.CNM Work Phone: [facility] 1997 diphtheria, tetanus toxoids and acellular pertussis vaccine, 5 pertussis antigens Hodanespinoza Jacbo [employer]ACH[employer] ACCESSORIES ATTACHER.CNM Work Phone: [facility] 1997 haemophilus influenz ae type b conjugate and Hepatitis B vaccine Hodanespinoza Jacob [employer]ACHUTE ACCESSORIES ATTACHER.CNM Work Phone: [facility] Work Phone: 1997 haemophilus influenz ae type b vaccine, HbOC conjugate Hodanespinoza Jacob [employer]ACHUTE ACCESSORIES ATTACHER.CNM Work Phone: [facility] 1997 hepatitis B immune globulin Hodanespinoza Jacob [employer]ACHUTE ACCESSORIES ATTACHER.CNM Work Phone: [facility] 1997 poliovirus vaccine, inactivated Hodanespinoza Jacob [employer]ACH[employer] ACC[employer]IES ATTACHER.CNM Work Phone: [facility] 1997 hepatitis B immune globulin Hodan Jacob [employer]ACH[employer] ATTACHER.CNM Work Phone: [facility] 1997 hepatitis B vaccine, pediatric or pediatric/adolescent dosage Hodan Jacob [employer] ATTACHER.CNM Work Phone: [facility] Work Phone: NEGATED: Highlighted row has not occurred!03-15-2024 measles, mumps and rubella virus vaccine Rand Hallman MD Work Phone: [employer] Comment on above: Deferred: No longer needed NEGATED: Highlighted row has not occurred!03-15-2024 tetanus toxoid, reduced diphtheria toxoid, and acellular pertussis vaccine, adsorbed Rand Hallman MD Work Phone: [employer] Comment on above: Deferred: No longer needed NEGATED: Highlighted row has not occurred!03-13-2024 influenza, injectable, madin bruce canine kidney, preservative free Rand Hallman MD Work Phone: [employer] Comment on above: Deferred: Patient Re fused - not now per pt Payers Date Payer Category Payer Unknown [id number] 2024 Self-pay [id number] 2023 Commercial Benefitter Formerly [facility] [employer] [id number] 2023 Unknown [id number] 2021 Unknown [id number]. [id number]. [id number] 2006 Unknown MOE [id number] 1997 Unknown [id number] 2.16.840.1.247948.3.579. 2.479 1997 Unknown [id number] 2.16.840.1.613619.3.579. 2.479 1997 Unknown [id number] 2.16.840.1.116855.3.579. 2479 1997 Unknown [id number] 2.16.840.1.507123.3.579. 2.479 1997 Unknown [id number] 2.16.840.1.952183.3.579. 2479 1997 Unknown [id number] 2.16.840.1.572627.3.579. 2479 1997 Unknown [id number] 2.16.840.1.394220.3.579. 2479 1997 Unknown [id number] 2.16840.1.443670.3.579. 2479 1997 Unknown [id number] 2.16840.1.731096.3.579. 2.651 1997 Unknown [id number] 2.16840.1.913658.3.579. 2.627 1997 Unknown [id number] 2.16840.1.307067.3.579. 2.627 1997 Unknown [id number] 2.16840.1.768597.3.579. 2.627 1997 Unknown [id number] 2.16.840.1.824676.3.579. 2.627 1997 Unknown [id number] 2.16840.1.435887.3.579. 2.627 1997 Unknown [id number] 2.16840.1.793275.3.579. 2.627 Unknown ANTHEM SECONDARY [id number] Unknown [id number] 2.16.840.1.397078.3.579. 2.462 Unknown [id number] 2.16.840.1.583041.3.579. 2.462 Unknown [id number] 2.16.840.1.538766.3.579. 2.462 Unknown [id number] 2.16.840.1.157936.3.579. 2.462 Unknown [id number] 2.16840.1.281750.3.579. 2.462 Unknown [id number] 2.16.840.1.850385.3.579. 2.462 Unknown [id number] 2.16.840.1.590831.3.579. 2.462 Unknown [id number] 2.16.840.1.597791.3.579. 2.462 Unknown [id number] 2.16840.1.907468.3.579. 2.462 Unknown [id number] 2.16840.1.975108.3.579. 2.462 Unknown [id number] 2.16840.1.936839.3.579. 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 [employer], ADENTS HTI.; [employer], ADENTS HTI. Smokes tobacco daily [employer], ADENTS HTI. Work Phone: Start: 08-26-2023 [facility] Start: 03-06-2024 End: 10-12-2024 Alcoholic beverage intake Ex-drinker (finding) [facility] Start: 03-11-2024 End: 10-12-2024 History of Social function [facility] Start: 03-11-2024 End: 10-12-[address] [facility] [employer] [facility] Has the Insights, [employer], or water Travelogy threatened to shut off services in your home in past 12Mo No [facility] (I/We) worried wheth er (my/our) food would run out before (I/we) got money to buy more. Never true [facility] In the past 12 month s, has lack of transportation kept you from medical appointments or from getting medications? No [facility] Start: 10-11-2024 End: 03-06-2025 Tobacco smoking status NHIS Ex-smoker (finding) [facility] Start: 10-12-2024 End: 10-14-2024 Sex Female (finding) [facility] How often to you hav e a drink containing alcohol? Never [facility] Do you feel stress - tense, restless, nervous, or anxious, or unable to sleep at night because your mind is troubled all the time - these days [OSQ] Only a little [facility] NEGATED: Highlighted row [facility] Medical Equipment Procedure Code Equipment Code Equipment [...] 30 gauge misc Start: 02-26-2024 End: 03-06-2025 Blood Sugar Diagnostic (Blood Glucose Test) strip Start: 02-26-2024 End: 03-06-2025 Lancets (Droplet Lancets) 30 gauge misc Start: 02-26-2024 End: 09-04-2025 Blood Sugar Diagnostic (Blood Glucose Test) strip Start: 02-26-2024 End: 03-06-2025 Lancets (Droplet Lancets) 30 gauge misc Start: 02-26-2024 End: 03-06-2025 Blood Sugar Diagnostic (Blood Glucose Test) strip Start: 02-26-2024 End: 03-06-2025 Lancets (Droplet Lancets) 30 gauge misc Start: 02-26-2024 End: 03-06-2025 Goals Date Patient Goal Desired Activity /State Mental Status Date Assessment Result Facility 12-02-2022 Cognitive function Voice/Name [facility] Work Phone: Clinical Notes 09-13-2011 to 03-06-2025 Note Date & Type Note Facility 03-06-2025 Evaluation note Diagnosis Onset Date Resolution Encounter for routine gynecological examination noneactive March 06, 025 2:30pm [facility] Work Phone: 1(453) 539-545404-14-2025 Discharge summary [facility] Medical Records Department [address] [place] [address] Emergency Department Summary 10/14/24 MR#: [id number] Acct: [id number] Name: JOSE EDWARD Rep #:[id number] : 1995 29 From: Soren Babcock MD PCP: CHERYL Samano Status:REG ER Location: ED HPI History of Present Illness Chief Complaint: Abd Pain Narrative Narrative: 29-year-old female presents with abdominal pain. On 10/11/2024 she drove to [place], [place] to have egg retrieval at a fertility clinic. They did the procedure vaginally and punctured her bladder while retrieving some eggs. They prescribed Keflex and Pyridium. She drove home that same day and developed chest pain, shortness of breath, nausea and abdominal pain and had difficulty emptying her bladder. She was evaluated at [facility] on the same day 10/[address] scan of chest abdomen pelvis negative for PE. There were enlarged ovaries with numerous cysts and moderate volume ascites compatible with ovarian hyperstimulation syndrome. She also had a [place] placed for urinary retention. She was transferred to [facility] for definitive treatment. She statesthey attempted [...] removed yesterday. Mulugeta also prescribed Lovenox shots x1 week. She presents because she had a low-grade temperature of 99 ?F and still having nausea and generalizedabdominal pain and is urinating frequent small amounts. The chest pain and shortness of breath are much better. [facility] Medical History Abnormal uterine bleeding [...] 02/28/24 Unknown R x (FreeStyle Lexi 2 Richey) flash glucose sensor (FreeStyle #1 02/28/24 Unknown Rx Lexi 2 Sensor kit) PNV no.151-iron 27 mg-folic 800 1 cap PO DAILY 5 Unknown History [id number] 260 [id number] capsule ( Multi-DHA (with vitamin K)) cabergoline [...] Diabetes Uncle Diabetes Grandmother Diabetes Surgical History [place] teeth extracted History of hysteroscopy Status post laparoscopy S/P D&C (status post dilation and curettage) Hx of lumpectomy History of tonsillectomy and adenoidectomy Social History adopted: No household members: spouse number of children: 0 current occupational status: employed current occupation: [employer] current occupational exposures/hazards: No pets and animals: Yes (Avoid litterbox) pets and animals: cat(s) and dog(s) history of recent travel: Yes ([facility]) out of state: Yes out of country: No sexually active: Yes Smoking Status: Former smoker Electronic Cigarette Use: with nicotine alcohol intake: never substance use type: does not use well-balanced diet: daily or most days caffeine: No eating out: 1-3 times/week during the past year weight has: increased > 10 lbs what type of physical activity do you participate in: none jessica/faith: Hinduism seatbelt use: always do you feel safe at home: Yes additional social history: - Rene- Chuck ROS ROS ED ROS Narrative Constitutional: Negative for fever, chills. GI: Positive for abdominal pain, nausea, constipation. : Negative for dysuria, hematuria. EXAM Physical Exam Narrative Exam Narrative: CONST: Patient [...] Ox 100 Oxygen Delivery Method Room Air Physical Exam Const Vital Signs: 10/14/24 18:26 [...] 100 Oxygen Delivery Method Room Air MDM MDM MDM Narrative Medical decision making narrative: Differential includes but not limited to: Urinary retention, UTI, intra- abdominal infection, ovarian hyperstimulation, constipation 29-year-old female had eggs retrieval 3 days ago and was told her bladder was punctured. Since thenshe has had nausea, abdominal pain constipation, and urinary issues. She was at [facility] the last few days and they terminated paracentesis because there was not enough fluid to remove. She presents dueto continued abdominal symptoms and frequent urination. She [...] % (Auto) 69.3 Lymph % (Auto) 21.9 Crowley % (Auto) 6.5 Eos % (Auto) 1.6 [...] Sl. Cloudy Urine pH 7.0 Ur Specific Anderson 1.015 Urine Protein 30 H Urine Glucose [...] X-Ray 10/14/24 21:24 IMPRESSION: CONSTIPATION. Reading Location: [facility] Narrative Medical decision making narrative: Differential includes but not limited to: Urinary retention, UTI, intra- abdominal infection, ovarian hyperstimulation, constipation 29-year-old female had eggs retrieval 3 days ago and was told her bladder was punctured. Since thenshe has had nausea, abdominal pain constipation, and urinary issues. She was at [facility] the last few days and they terminated paracentesis because there was not enough fluid to remove. She presents dueto continued abdominal symptoms and frequent urination. She [...] had eggs harvested. Complaining of abdominal discomfort andconstipation. Recently was seen and worked up at a CT was sent to [facility]. They attempted at that time a [...] % (Auto) 69.3 Lymph % (Auto) 21.9 Crowley % (Auto) 6.5 Eos % (Auto) 1.6 [...] Sl. Cloudy Urine pH 7.0 Ur Specific Anderson 1.015 Urine Protein 30 H Urine Glucose [...] X-Ray 10/14/24 21:24 IMPRESSION: CONSTIPATION. Reading [facility]: [facility] Discharge Plan Triage Chief Complaint: Abd Pain ED Midlevel Provider: Anabella Malave ED Provider: Soren Babcock Dx/Rx/DC Orders Clinical Impression: Constipation, Abdominal pain, Ovarian hyperstimulation syndrome Instructions: Abdominal Pain, ED Constipation (Adult) Prescriptions: No Action omeprazole 20 mg tablet,delayed release (DR/EC) 20 mg PO DAILY (DME) FreeStyle Lexi 2 Richey Misc See Rx Instructions .Route Qty: 1 [...] you take magnesium citrate which is sold zqfj-zlz-enlqalb. Drink plenty of water and Gatorade to avoid dehydration as this will cause a lot of bowel movements. You also could be having pain from the ovarian hyperstimulation syndrome which should get better over time. I recommend follow-up with your OIL SALES AND SERVICE REP. Print Language: Czech Disposition Disposition: Home, Self Care What to do if you have Problems For any increased pain, shortness of breath, bleeding, nausea or vomiting, chestpain, or any unexpected problems, contact your Primary Care Provider. Call [facility] ([phone]) or report tothe closest Emergency Room. Call 911 if necessary. 10/14/242145 Cosigner Signature (if applicable): 10/14/242142 CC: CHERYL Samano ~ Signed [facility]04-14-2025 Radiology Diagnostic study note [facility] Imaging Services [address] [place] [address] Abdomen Single View (Portable) MR#: [id number] Acct: [id number] Name: JOSE EDWARD Rep #: [id number] : 1995 F 29 From: Makenna Brown DO PCP: CHERYL Samano Status: PRE ER Study:Abdomen Single View (Portable) Date of Exam: 10/14/24 Exam# [id number] Ordering Dr: Anabella Akers PROCEDURE: ABDOMEN SINGLE VIEW (PORTABLE) 10/14/2024 REASON FOR EXAM: ABDOMINAL PAIN, CONSTIPATION TECHNIQUE: Single view abdomen. COMPARISON: None FINDINGS: Bowel gas: Nonobstructive bowel gas pattern. No evidence of obstruction. Mild stool burden within the large bowel. Calcifications: No suspicious calcifications. Bones: The bones are unremarkable. Other: RAD/Abdomen Single View (Portable) IMPRESSION: CONSTIPATION. Reading Location: [facility] CC: CHERYL Weinstein; CHERYL Samano ~ Professor Of Violin: Signed [facility]04-14-2025 Discharge summary Author Soren Babcock [facility] Note Date/Time October 14, 2024 9:4 6pm [facility] Medical Records Department [address] [place] [address] Emergency Department Summary 10/14/24 MR#: [id number] Acct: [id number] Name: JOSE EDWARD Rep #:[id number] : 1995 29 From: Soren Babcock MD PCP: CHERYL Samano Status:REG ER Location: ED HPI <CHERYL Weinstein - Last Filed: 10/14/24 21:43> History of Present Illness Chief Complaint: Abd Pain Narrative Narrative: 29-year-old female presents with abdominal pain. On 10/11/2024 she drove to [place], [place] to have egg retrieval at a fertility clinic. They did the procedure vaginally and punctured her bladder while retrieving some eggs. They prescribed Keflex and Pyridium. She drove home that same day and developed chest pain, shortness of breath, nausea and abdominal pain and had difficulty emptying her bladder. She was evaluated at [facility] on the same day 10/[address] scan of chest abdomen pelvis negative for PE. There were enlarged ovaries with numerous cysts and moderate volume ascites compatible with ovarian hyperstimulation syndrome. She also had a West placed for urinary retention. She was transferred to [facility] for definitive treatment. She statesthey attempted [...] Her West catheter was also [facility] yesterday[facility] Loven[facility] x 1 week. She presents because she had a low-grade temperature of 99 ?F and still having nausea and generalizedabdominal pain and is urinating frequent small amounts. The chest pain and shortness of breath are much better. [facility] <CHERYL Weinstein - Last Filed: 10/14/24 21:43> [facility] Medical History Abnormal uterine bleeding Conceived by [...] 02/28/24 Unknown R x (FreeStyle Lexi 2 Richey) flash glucose sensor (FreeStyle #1 ea 02/28/24 Unknown Rx Lexi 2 Sensor kit) PNV no.151-iron 27 mg-folic 800 1 cap PO DAILY 5 Unknown History mcg-omega3 260 fw-eyt-yzp-fish capsule ( Multi-DHA (with vitamin K)) cabergoline [...] Diabetes Uncle Diabetes Grandmother Diabetes Surgical History [place] teeth extracted History of hysteroscopy Status post laparoscopy S/P D&C (status post dilation and curettage) Hx of lumpectomy History of tonsillectomy and adenoidectomy Social History adopted: No household members: spouse number of children: 0 current occupational status: employed current occupation: [employer] current occupational exposures/hazards: No pets and animals: Yes (Avoid litterbox) pets and animals: cat(s) and dog(s) history of recent travel: Yes ([facility]) out of state: Yes out of country: No sexually active: Yes Smoking Status: Former smoker Electronic Cigarette Use: with nicotine alcohol intake: never substance use type: does not use well-balanced diet: daily or most days caffeine: No eating out: 1-3 times/week during the past year weight has: increased > 10 lbs what type of physical activity do you participate in: none jessica/faith: Hinduism seatbelt use: always do you feel safe [...] Ox 100 Oxygen Delivery Method Room Air [facility] <CHERYL Weinstein - Last Filed: 10/14/24 21:43> [facility] Narrative Medical decision making narrative: Differential includes but not limited to: Urinary retention, UTI, intra- abdominal infection, ovarian hyperstimulation, constipation 29-year-old female had eggs retrieval 3 days ago and was told her bladder was punctured. Since then she has had nausea, abdominal pain constipation, and urinary issues. She was at [facility] the last few days and they terminated [...] % (Auto) 69.3 Lymph % (Auto) 21.9 Crowley % (Auto) 6.5 Eos % (Auto) 1.6 [...] Sl. Cloudy Urine pH 7.0 Ur Specific Anderson 1.015 Urine Protein 30 H Urine Glucose [...] X-Ray 10/14/24 21:24 IMPRESSION: CONSTIPATION. Reading Location: [facility] <Dr. Soren Babcock MD - Last Filed: 10/14/24 21:46> [facility] Narrative Medical decision making narrative: Differential includes but not limited to: Urinary retention, UTI, intra- abdominal infection, ovarian hyperstimulation, constipation 29-year-old female had eggs retrieval 3 days ago and was told her bladder was punctured. Since then she has had nausea, abdominal pain constipation, and urinary issues. She was at [facility] the last few days and they terminated [...] up at a CT was sent to [facility]. They attempted at that time a paracentesis [...] % (Auto) 69.3 Lymph % (Auto) 21.9 Crowley % (Auto) 6.5 Eos % (Auto) 1.6 [...] Sl. Cloudy Urine pH 7.0 Ur Specific Anderson 1.015 Urine Protein 30 H Urine Glucose [...] X-Ray 10/14/24 21:24 IMPRESSION: CONSTIPATION. Reading Location: [facility] Discharge Plan Triage Chief Complaint: Abd Pain ED Midlevel Provider: Anabella Malave ED Provider: Soren Babcock Dx/Rx/DC Orders Clinical Impression: Constipation, Abdominal pain, Ovarian hyperstimulation syndrome Instructions: Abdominal Pain, ED Constipation (Adult) Prescriptions: No Action omeprazole 20 mg tablet,delayed release (DR/EC) 20 mg PO DAILY (DME) FreeStyle Lexi 2 Richey Misc See Rx Instructions .Route Qty: 1 [...] you take magnesium citrate which is sold bojk-uol-aedhhvk. Drink plenty of water and Gatorade to avoid dehydration as this will cause a lot of bowel movements. You also could be having pain from the ovarian hyperstimulation syndrome which should get better over time. I recommend follow-up with your OIL SALES AND SERVICE REP. Print Language: Czech Disposition Disposition: Home, Self Care What to do if you have Problems For any increased pain, shortness of breath, bleeding, nausea or vomiting, chestpain, or any unexpected problems, contact your Primary Care Provider. Call [facility] ([phone]) or report to the closest Emergency Room. Call 911 if necessary. 10/14/242145 <Electronically signed by Soren Babcock MD> Cosigner Signature (if applicable): 10/14/242142 <Electronically signed by Anabella LUNA> CC: CHERYL Samano ~ Signed [facility] Work Phone: 1(355) 572-860604-13-2025 NoteGyn Discharge Summary Patient Name: Jose Edward [...] Follow up in 1-2 weeks with primary OIL SALES AND SERVICE REP, Dr. Velarde. Discharge instructions reviewed and questions [...] up: 1 to 2 weeks with primary [employer]IL SALES AND SERVICE REP Condition on discharge: good and stable Discharge Date: 10/13/24 Comments: Home care, Follow-up care, restrictions reviewed. Jade Carmona DO 10/13/2024, 11:44 [place] [id number] Hospital course Narrative* Jade Carmona DO - 10/13/2024 11:42 AM EDT Images from the original note were not included. [facility] Discharge Summary Patient Name: Jose Edward Patient : 1995 Primary Care Physician: Mraco Melvin Admit Date: 10/12/2024 Attending Provider: Barak [...] Follow up in 1-2 weeks with primary OIL SALES AND SERVICE REP, Dr. Velarde. Discharge instructions reviewed and questions [...] up: 1 to 2 weeks with primary OIL SALES AND SERVICE REP Condition on discharge: good and stable Discharge Date: 10/13/24 Comments: Home care, Follow-up care, restrictions reviewed. Jade Carmona DO 10/13/2024, 11:44 AM Cosigned by Gypsy Pelayo MD at 10/13/2024 12:56 PM EDT documented in this [facility]04-13-2025 History of Present illness Narrative* Jade Carmona DO - 10/13/2024 6:11 AM EDT Images from the original note were not included. [employer] Progress Note Date: 10/13/2024 Time: 6:11 AM [...] 4 mg, IntraVENous, q6h PRN, Jade Van Dianak, DO oxyCODONE (Roxicodone) immediate release tablet 5 [...] Problem: Ovarian hyperstimulation syndrome Please page the [facility] Call RES group via Secure [...] distended. Awaiting paracentesis today. documented in this [facility]04-13-2025 Plan of care note* Care Plan - [...] monitored and maintained or improved Outcome: Progressing [id number] Miscellaneous Notes* Care Plan - Lucinda Poe [...] or improved Outcome: Progressing documented in this [facility]04-12-2025 Plan of care note* Care Plan - [...] monitored and maintained or improved Outcome: Progressing [id number] History and physical note* Jade Carmona, DO - 10/12/2024 5:56 AM EDT Images from the original note were not included. [employer] H&P Patient Name: Jose Edward Patient : 1995 Room/Bed: [facility]/[address] Admission Date/Time: 10/12/2024 3:14 AM Primary Care Physician: Marco Melvin HPI: Jose Edward is a 29 y.o. female patient transferred from [facility] for concern for ovarian hyperstimulation syndrome. Patient recently had an egg retrieval in [place] 24 hours ago, she states that over [...] mg, 1,000 mg, Oral, q8h, Jade Carmona, docusate sodium (Colace) capsule 100 mg, 100 [...] Ringer's infusion 100 mL/hr IntraVENous Continuous Jade Van Melissak, DO 100 mL/hr at 10/12/24 0522 100 mL/hr at 10/12/24 0522 ondansetron ODT (Zofran-ODT) disintegrating tablet 4 mg 4 mg Oral q8h PRN Jade Van Dianak, DO Or ondansetron (Zofran) injection 4 mg 4 mg IntraVENous q6h PRN Jade Van Dianak, DO polyethylene glycol (PEG) 3350 (Miralax) packet 17 g 17 g Oral Daily PRN Jade Van Dianak, DO sodium chloride 0.9 % infusion 5-250 mL/hr IntraVENous PRN Jade Elio Torresk, DO sodium chloride 0.9% (NS) flush 5-40 mL 5-40 mL IntraVENous q12h Jade Van Dianak, DO 10 mL at 10/12/24 0400 sodium [...] abdominal distention, nausea -Patient was evaluated at [facility] initially and obtained imaging as stated below, imaging is available on PACS -CT A/P 10/11 no traumatic abdominal aortic injury or retroperitoneal hematoma, markedly enlarged ovaries with numerous ovarian cysts and moderate volume ascites, compatible with ovarian hyperstimulation - CTA 10/11 no traumatic thoracic aortic aneurysm or mediastinal hematoma ectasia of the main pulmonary artery seen in pulmonary hypertension -Patient transferred to [facility] for further management -CBC, CMP, coags [...] pain management -Avoid NSAIDs Please page the [facility] Call RES group via Secure Chat for any questions or concerns. Jade Carmona DO 10/12/2024, 5:56 AM Cosigned by Malia Reina MD at 10/12/2024 10:19 PM EDT Associated attestation - Mlaia Reina MD - 10/12/2024 10:19 PM EDT Hospital Care (Independent): I independently saw and evaluated the patient. I agree with the findings and plan of care as documented in the resident's note. [id number] Note Attestation signed by Malia Reina MD at 10/12/2024 10:19 PM Hospital Care (Independent): I independently saw and evaluated the patient. I agree with the findings and plan of care as documented in the resident's note. [employer] H&P Patient Name: Jose Edward Patient : 1995 Room/Bed: [facility]/[address] Admission Date/Time: 10/12/2024 3:14 AM Primary Care Physician: Marco Melvin HPI: Jose Edward is a 29 y.o. female patient transferred from [facility] for concern for ovarian hyperstimulation syndrome. Patient recently had an egg retrieval in [place] 24 hours ago, she states that over [...] 1,000 mg, 1,000 mg, Oral, q8h, Jade Van Melissak, DO docusate sodium (Colace) capsule 100 mg, 100 mg, Oral, BID, Jade Waldropk, DO lactated Ringer's infusion, 100 mL/hr, IntraVENous, Continuous, Jade Carmona, DO, Last Rate: 100 mL/hr at 10/12/24 0522, 100 mL/hr at 10/12/24 0522 ondansetron ODT (Zofran-ODT) disintegrating tablet 4 mg, 4 mg, Oral, q8h PRN OR ondansetron (Zofran) injection 4 mg, 4 mg, IntraVENous, q6h PRN, Jade Ballard Dianak, DO polyethylene glycol (PEG) 3350 (Miralax) packet 17 g, 17 g, Oral, Daily PRN, Jade Waldropk, DO sodium chloride 0.9 % infusion, 5-250 mL/hr, IntraVENous, PRN, Jade Peterjck, DO sodium chloride 0.9% (NS) flush 5-40 mL, 5-40 mL, IntraVENous, q12h, Jade Waldropk, DO, 10 mL at 10/12/24 0400 sodium [...] % infusion 5-250 mL/hr IntraVENous PRN Jade Carmona, DO sodium chloride 0.9% (NS) flush 5-40 mL 5-40 mL IntraVENous q12h Jade Waldropk, DO 10 mL at 10/12/24 0400 sodium chloride 0.9% (NS) flush 5-40 mL 5-40 mL IntraVENous PRN Jade Carmona, DO VITALS: BP 102/65 (BP Location: Right [...] Normocephalic and atraumatic. Pulm (more content not included)...[facility]04-12-2025 History and physical note* Jade Carmona, DO - 10/12/2024 5:56 AM EDT Images from the original note were not included. [employer] H&P Patient Name: Jose Edward Patient : 1995 [facility] Admission Date/Time: 10/12/2024 3:14 AM Primary Care Physician: Marco Melvin HPI: Jose Edward is a 29 y.o. female patient transferred from [facility] for concern for ovarian hyperstimulation syndrome. Patient recently had an egg retrieval in [place] 24 hours ago, she states that over [...] mg 100 mg Oral BID Jade Van Dijck, DO lactated Ringer's infusion 100 mL/hr IntraVENous Continuous Jade Van Dijck, DO 100 mL/hr at 10/12/24 0522 100 mL/hr at 10/12/24 0522 ondansetron ODT (Zofran-ODT) disintegrating tablet 4 mg 4 mg Oral q8h PRN Jade Van Dijck, DO Or ondansetron (Zofran) injection 4 mg 4 mg IntraVENous q6h PRN Jade Van Dijck, DO polyethylene glycol (PEG) 3350 (Miralax) packet 17 g 17 g Oral Daily PRN Jaed Van Dijck, DO sodium chloride 0.9 % [...] abdominal distention, nausea -Patient was evaluated at [facility] initially and obtained imaging as stated below, imaging is available on PACS -CT A/P 10/11 no traumatic abdominal aortic injury or retroperitoneal hematoma, markedly enlarged ovaries with numerous ovarian cysts and moderate volume ascites, compatible with ovarian hyperstimulation - CTA 10/11 no traumatic thoracic aortic aneurysm or mediastinal hematoma ectasia of the main pulmonary artery seen in pulmonary hypertension -Patient transferred to [facility] for further management -CBC, CMP, coags [...] pain management -Avoid NSAIDs Please page the [facility] Call RES group via Secure [...] in the resident's note. documented in this [facility]04-12-2025 Discharge summary [facility] Medical Records Department [address] [place] [address] Emergency Department Summary 10/11/24 MR#: [id number] Acct: [id number] Name: JOSE EDWARD Rep #:[id number] : 1995 29 From: Fern Marroquin DO PCP: CHERYL Samano Status:REG ER Location: ED HPI History of Present Illness Chief Complaint: Shortness of Breath Detail of Chief Complaint: Shortness of breath and abdominal pain Informant: patient Narrative Narrative: Patient presents to the emergency department complaint shortness of breath and abdominal pain that started this morning. Patient [facility] [...] No prior history of PE or DVT [facility] Medical History Abnormal uterine bleeding [...] #1 ea 02/28/24 Unknown R x (FreeStyle Elxi 2 Richey) flash glucose sensor (FreeStyle #1 ea 02/28/24 Unknown Rx Lexi 2 Sensor kit) PNV no.151-iron 27 mg-folic 800 1 cap PO DAILY 5 Unknown History mcg-omega3 260 qe-pem-hbk-fish capsule ( Multi-DHA (with vitamin K)) cabergoline [...] Diabetes Uncle Diabetes Grandmother Diabetes Surgical History [place] teeth extracted History of hysteroscopy Status post laparoscopy S/P D&C (status post dilation and curettage) Hx of lumpectomy History of tonsillectomy and adenoidectomy Social History adopted: No household members: spouse number of children: 0 current occupational status: employed current occupation: [employer] current occupational exposures/hazards: No pets and animals: Yes (Avoid litterbox) pets and animals: cat(s) and dog(s) history of recent travel: Yes ([facility]) out of state: Yes out of country: No sexually active: Yes Smoking Status: Former smoker Electronic Cigarette Use: with nicotine alcohol intake: never substance use type: does not use well-balanced diet: daily or most days caffeine: No eating out: 1-3 times/week during the past year weight has: increased > 10 lbs what type of physical activity do you participate in: none jessica/faith: Hinduism seatbelt use: always do you feel safe [...] transfer patient to tertiary care center at [facility] for definitive treatment. Discussed case with Dr. Covarrubias at [facility] who accepted transfer ofpatient to their facility. [...] 87.1 H Lymph % (Auto) 8.2 L Crowley % (Auto) 4.0 Eos % (Auto) 0.0 [...] Clarity Clear Urine pH 7.0 Ur Specific Anderson 1.010 Urine Protein 30 H Urine Glucose [...] compatible with ovarian hyperstimulation syndrome. Reading Location: [facility] Discharge Plan Triage Chief Complaint: Shortness of Breath Other Complaint: Abd Pain ED Provider: Fern Marroquin Dx/Rx/DC Orders Clinical Impression: Abdominal pain, Ovarian hyperstimulation syndrome, Leukocytosis, Acute urinary retention Prescriptions: No Action omeprazole 20 mg tablet,delayed release (DR/EC) 20 mg PO DAILY (DME) FreeStyle Lexi 2 Richey Misc See Rx Instructions .Route Qty: 1 [...] PA [Primary Care Provider] - Print Language: Czech Disposition Disposition: DC/Tx to Another Type of HCF What to do if you have Problems For any increased pain, shortness of breath, bleeding, nausea or vomiting, chestpain, or any unexpected problems, contact your Primary Care Provider. Call [facility] ([phone]) or report tothe closest Emergency Room. Call 911 if necessary. 10/12/245 Cosigner Signature (if applicable): CC: CHERYL Samano ~ Signed [facility]04-11-2025 Radiology Diagnostic study note [facility] Imaging Services [address] [place] [address] CTA Chst, Abd, Pel W and/or WO MR#: [id number] Acct: [id number] Name: JOSE EDWARD Rep #: [id number] : 1995 F 29 From: Afia Francis MD PCP: CHERYL Samano Status: REG ER Study:CTA Chst, Abd, Pel W and/or WO Date of Exam: 10/11/24 Exam# [id number] Ordering Dr: Delma Marroquin DO PROCEDURE: CTA [...] compatible with ovarian hyperstimulation syndrome. Reading Location: [facility] CC: Dr. Fern Marroquin DO; CHERYL Samano ~ Professor Of Violin: Signed [facility]04-11-2025 Discharge summary Author Fern Marroquin [facility] Note Date/Time October 12, 2024 12: 06am [facility] Medical Records Department [address] [place] [address] Emergency Department Summary 10/11/24 MR#: [id number] Acct: [id number] Name: JOSE EDWARD Rep #:[id number] : 1995 29 From: Fern Marroquin DO PCP: CHERYL Samano Status:REG ER Location: ED HPI History of Present Illness Chief Complaint: Shortness of Breath Detail of Chief Complaint: Shortness of breath and abdominal pain Informant: patient Narrative Narrative: Patient presents to the emergency department complaint shortness of breath and abdominal pain that started this morning. Patient states that she had driven [employer] [place] this morning to have egg retrieval at [...] No prior [facility] of PE or [facility] Medical History Abnormal uterine bleeding Conceived by [...] 02/28/24 Unknown R x (FreeStyle Lexi 2 Richey) flash glucose sensor (FreeStyle #1 ea 02/28/24 Unknown Rx Lexi 2 Sensor kit) PNV no.151-iron 27 mg-folic 800 1 cap PO DAILY 5 Unknown History mcg-omega3 260 jz-pkd-qyx-fish capsule ( Multi-DHA (with vitamin K)) cabergoline [...] Diabetes Uncle Diabetes Grandmother Diabetes Surgical History [place] teeth extracted History of hysteroscopy Status post laparoscopy S/P D&C (status post dilation and curettage) Hx of lumpectomy History of tonsillectomy and adenoidectomy Social History adopted: No household members: spouse number of children: 0 current occupational status: employed current occupation: [employer] current occupational exposures/hazards: No pets and animals: Yes (Avoid litterbox) pets and animals: cat(s) and dog(s) history of recent travel: Yes ([facility]) out of state: Yes out of country: No sexually active: Yes Smoking Status: Former smoker Electronic Cigarette Use: with nicotine alcohol intake: never substance use type: does not use well-balanced diet: daily or most days caffeine: No eating out: 1-3 times/week during the past year weight has: increased > 10 lbs what type of physical activity do you participate in: none jessica/faith: Hinduism seatbelt use: always do you feel safe [...] transfer patient to tertiary care center at [facility] for definitive treatment. Discussed case with Dr. Covarrubias at [facility] who accepted transfer of patient to their [...] 87.1 H Lymph % (Auto) 8.2 L Crowley % (Auto) 4.0 Eos % (Auto) 0.0 [...] Clarity Clear Urine pH 7.0 Ur Specific Anderson 1.010 Urine Protein 30 H Urine Glucose [...] compatible with ovarian hyperstimulation syndrome. Reading Location: [facility] Discharge Plan Triage Chief Complaint: Shortness of Breath Other Complaint: Abd Pain ED Provider: Fern Marroquin Dx/Rx/DC Orders Clinical Impression: Abdominal pain, Ovarian hyperstimulation syndrome, Leukocytosis, Acute urinary retention Prescriptions: No Action omeprazole 20 mg tablet,delayed release (DR/EC) 20 mg PO DAILY (DME) FreeStyle Lexi 2 Richey Misc See Rx Instructions .Route Qty: 1 [...] PA [Primary Care Provider] - Print Language: Czech Disposition Disposition: DC/Tx to Another Type of HCF What to do if you have Problems For any increased pain, shortness of breath, bleeding, nausea or vomiting, chestpain, or any unexpected problems, contact your Primary Care Provider. Call [facility] ([phone]) or report to the closest Emergency Room. Call 911 if necessary. 10/12/245 <Electronically signed by Fern Marroquin DO> Cosigner Signature (if applicable): CC: CHERYL Samano ~ Signed [facility] Work Phone: 1(109) 893-452412-18-2024 Evaluation note* Diagnosis Onset Date Resolution Status Admit Date Amenorrhea acute June 19, 2024 9:36am Pelvic floor dysfunction acute June 19, 2024 9:36am Vaginal discharge acute Decembe r 2023 9:36am [facility] Work Phone: 1(862) 493-195509-15-2024 Nurse Note* Maryellen Posey RN - 03/17/2024 6:40 PM EDT Mom discharged mom in good condition with all belongings to a private residence, accompanied by . All discharge instructions reviewed with patient who verbalizes understanding and denies further questions.Mom walked out at 1840 [facility] Nurse Note* Maryellen Posey RN - 03/17/2024 [...] cramping / contractions occur. documented in this [facility]09-15-2024 NoteDepartment of Obstetrics and Gynecology Delivery Discharge [...] Information for the patient's : Marcus Edward [[id number]] male 3 lb 6.7 oz (1.55 kg) Apgars: Information for the patient's : Marcus Edward [[id number]] : : Boy, Blood Type/Rh: O Antibody [...] Your Medications These medications were sent to [facility] [address] [place] [address] Hours: Monday to Monday 10 am to [...] [] Order a blood pressure kit through [facility] (or the patient's own pharmacy on the weekend) [] Order the blood pressure log through [facility] [] Place an office visit or telephone [...] physician if any of these occur.[facility]09-15-2024 Hospital course Narrative* Wendi Aguilar MD - [...] Information for the patient's : Marcus Edward [[id number]] male 3 lb 6.7 oz (1.55 kg) Apgars: Information for the patient's : Marcus Edward [[id number]] : : Boy, Blood Type/Rh: O Antibody [...] Your Medications These medications were sent to [facility] [address] [place] [address] Hours: Monday to Monday 10 am to [...] [] Order a blood pressure kit through [facility] (or the patient's own pharmacy on the weekend) [] Order the blood pressure log through [facility] [] Place an office visit or telephone [...] any of these occur. documented in this [facility]09-15-2024 Miscellaneous Notes* Note - Melissa Mantilla RN - 03/17/2024 8:00 AM EDT Check in with mom, pumping for 30 5/7 week in NICU. Mom is pumping 15cc per session. Observed pump session and resized her flanges to 22.5mm. Mom was given Spectra pump from [facility] hematology oncology consultant. Answer mom's questions. Discharge today. * [...] be able to transfer baby to main nettie. Sw also dicussed her and can stay at bedside. Discussed with NICU Sw who did meet with parents to assist. No further needs anticipated. OK FOR DC * Care Coordination - Amy Connor RN - 03/15/2024 12:25 PM EDT Date: 03/15/2024 Name: Jose Edward : 1995 [facility] Patient Information Primary Caregiver: Self Accompanied by/Relationship: S/O;Family Marital Status: Support System: SO/Family Yazdanism/Cultural Factors: none Activities of Daily Living Communication: [...] 30 6/7 weeks. [place] [facility]). Nurse has mom set up with [...] electric breast pump- [facility].All questions answered. Will [...] closely. Savanah Duarte DO 03/13/2024 11:23 PM Gilchrist more cramping. 1cm dilated. Reportedly was 1cm [...] options for home going pump; pt has [employer] insurance. Availability of LC for NICU and reviewed. Shereena handout Your NICU Baby given and reviewed. Encouraged to watch videos from [employer] to support her goals. [facility]. Encouraged to call with any [...] in the possibility of staying at the [facility] after delivery due to living approx. 2 hours away; patient and provided background check paperwork; will be faxed to [facility] referral line; Will consult for patient as pt would like to see prior to delivery * Care Coordination - Amy Connor RN - 03/07/2024 10:58 AM EDT Date: 03/07/2024 Name: Jose Edward : 1995 [facility] Information [place] - transport Patient Information Primary Caregiver: Self Accompanied by/Relationship: S/O;Family Marital Status: Support System: SO/Family Yazdanism/Cultural Factors: Activities of Daily Living Communication: See [...] N/A Children's Services: N/A documented in this [facility]09-15-2024 Obstetrics Note* Note - Melissa Mantilla RN - 03/17/2024 8:00 AM EDT Check in with mom, pumping for 30 5/7 week in NICU. Mom is pumping 15cc per session. Observed pump session and resized her flanges to 22.5mm. Mom was given Spectra pump from [facility] hematology oncology consultant. Answer mom's questions. Discharge today. [facility] [id number] History of Present illness Narrative* Chelsie Swenson, - 03/17/2024 5:47 AM EDT Images from the original note were not included. Note- POST OPERATIVE DAY # 3 Joes Edward is a 28 y.o. who was [...] 03/14 - Dexcom in place (share code [id number]) - Discontinued meds after delivery and have [...] away so will stay in NICU and [facility]ad [facility] when a spot opens. Has a breat [...] which is appropriate. RD sign off to remediation technician to continue to monitor. Gypsy Kirby [...] 5:56 AM 03/06/2024 Hospital Day: 9 Jose Venkata, 28 y.o. 30w5d Patient has been seen [...] infusion 1,000 mg/hr IntraVENous Continuous Savanah Duarte, magnesium sulfate IVPB premix 4,000 mg 4,000 [...] MD vitamin tablet 1 tablet Oral Daily Dlai Hall MD 1 tablet at 03/13/24 0824 sodium chloride 0.9 % infusion 5-250 mL/hr IntraVENous PRN Keiry Schcarolyneper, DO sodium chloride 0.9% (NS) flush 5-40 [...] anhydramnios; ROM rule out was deferred in [place] secondary to blood noted; transported to [facility] - in triage, SSE showed gross [...] diet - Dexcom in place, share code [id number] - Continue to monitor BGTs fasting and [...] AC Dali Hall MD 40 mg at 09/10/24 0602 polyethylene glycol (PEG) 3350 (Miralax) packet [...] anhydramnios; ROM rule out was deferred in [place] secondary to blood noted; transported to [facility] - in triage, SSE showed gross [...] diet - Dexcom in place, share code [id number] - Continue to monitor BGTs fasting and 1 hour pp - BGTs overall controlled Urinary Tract Infection - Diagnosed at OSH - Urine culture with no growth IUP @ 30w4d - Dating by 1st trimester US - Breech 03/11 - Monitorinhr TID - Diet: Gestational CCD - BMZ x2 on 03/06-03/07 Further plan pending d/w attending. Ana Kimberly, MS4 03/13/2024, 5:47 AM Patient independently examined [...] infection. Primary patient of Edouard Paulson/Prachi in [place]. Alerted her RN today to continue temp [...] g Oral PRN Keiry Boles DO nitrofurantoin (macrocrystal-monohydrate) (Macrobid) capsule 100 mg [...] Jacey secondary to blood noted; transported to [facility] - in triage, SSE showed gross [...] diet - Dexcom in place, share code [id number] - Continue to monitor BGTs fasting and [...] TOVAR DO 03/11/2024 12:28 PM * Juliana Nguyen, - 03/11/2024 6:03 AM EDT Images from [...] day Juliana Nguyen, DO 500 mg at 024 calcium gluconate [...] 1 tablet at 03/10/24 0920 Assessment/Plan: Jose dEward is a 28 y.o. female 30w2d Anhydramnios PPROM - Patient presented with LOF for about 3 weeks; US at outside facility showed anhydramnios; ROM rule out was deferred in [place] secondary to blood noted; transported to [facility] - in triage, SSE showed gross [...] diet - Dexcom in place, share code [id number] - Continue to monitor BGTs fasting and [...] admitted for PPROM Pertinent Background: Transferred from [place] for PPROM. Gross rupture confirmed on admit and anhydramnios at OSH ultrasound. 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 We discussed the indication for delivery with [...] Will continue to monitor closely. * Joanne Adame, HOWIE - 03/10/2024 7:41 AM EDT Nutrition Assessment [...] anhydramnios; ROM rule out was deferred in [place] secondary to blood noted; transported to [facility]. In triage,SSE showed gross rupture of [...] (188 lb) (03/06) Weight Source: Not Specified [place] Body Weight (lbs) (Calculated): 110 lbs [place] Body Weight (Kg) (Calculated): 50 kg % [place] Body Weight (Calculated): 170.9 % BMI (kg/m2) [...] soon to determine Joanne Adame RD Contact: eToro or *[phone] * Mary Alonso MD - 03/10/2024 7:11 AM EDT Images from the original note were not included. Maternal Medicine Service Resident Progress Note 03/10/2024 7:11 AM 03/06/2024 Hospital Day: 5 Jose Thomascherokee, 28 y.o. 30w1d Patient has been seen [...] anhydramnios; ROM rule out was deferred in [place] secondary to blood noted; transported to [facility] - in triage, SSE showed gross [...] diet - Dexcom in place, share code [id number] - Continue to monitor BGTs fasting and [...] admitted for PPROM Pertinent Background: Transferred from [place] for PPROM. Gross rupture confirmed on admit and anhydramnios at OSH ultrasound. 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 We discussed the indication for delivery with [...] Ehsan Gonsalez MD 20 mg at 03/08/24 1733 Or famotidine (Pepcid) 20 mg in sodium chloride (PF) 0.9 % 10 mL injection 20 mg IntraVENous BID Ehsan Gonsalez MD 20 mg at 03/08/246 glucagon (human recombinant) injection 1 mg 1 mg IntraMUSCular PRN Keiry Boles DO glucose oral gel 15 g 15 g Oral PRN Keiry Schlieper, DO lactated ringers infusion 125 mL/hr IntraVENous [...] Jacey secondary to blood noted; transported to [facility] - in triage, SSE showed gross [...] diet - Dexcom in place, share code [id number] - Continue to monitor BGTs fasting and [...] admitted for PPROM Pertinent Background: Transferred from [place] for PPROM. Gross rupture confirmed on admit and anhydramnios at OSH ultrasound. 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 We discussed the indication for delivery with [...] 5:51 AM 03/06/2024 Hospital Day: 3 Jose Venkata, 28 y.o. 29w6d Patient has been seen [...] Jacey secondary to blood noted; transported to [facility] - in triage, SSE showed gross [...] diet - Dexcom in place, share code [id number] - Continue to monitor BGTs fasting and [...] Further plan pending d/w attending. Juliana Nguyen, 03/08/2024, 5:51 AM Associated attestation - Saumya [...] at OSH ultrasound. 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 We discussed the indication for delivery with [...] Positive LOF Positive Contractions Vitals: 03/06/24 1725 03/06/24 2010 03/06/24 2340 03/07/24 0438 BP: 107/75 111/76 111/71 [...] Juliana Nguyen DO 200 mL/hr at 03/07/24 0203 2,000 [...] Jacey secondary to blood noted; transported to [facility] - in triage, SSE showed gross rupture of membranes with nitrazine positive, ferning negative and visually closed - Latency Abx ordered, allergy to azithromycin so currently receiving ampicillin - s/p BMZx1 at 1415 at [place], second dose ordered for today - magnesium sulfate loading dose given at outside facility, undergoing continuous infusion at 1g/hrfor neuroprotection - CEFM - General carb controlled diet - Growth US this morning - Patient is breech and will be for CD if for delivery GDMA1 - Carb control diet - Dexcom in place, share code [id number] - Continue to monitor BGTs fasting and [...] at OSH ultrasound. Given BMZ, Mag for CENTRIFUGE SEPARATOR OPERATOR and latency antibiotics (amox only due to [...] antibiotics, BMZ for lung maturityand magnesium for CENTRIFUGE SEPARATOR OPERATOR. We discussed the indication for delivery with any signs of infection. We reviewed the recommendation for inpatient admission until delivery and plan for delivery at 34 weeks unless indicated sooner for labor, infection or NRFS. All questions answered. Continue latency antibiotics for 7 days total. BMZ #2 this evening S/p Mag for CENTRIFUGE SEPARATOR OPERATOR x >12 hrs total- now stopped NICU [...] 3 weeks now. She was evaluated in [place] initially at that time with amnisure that [...] Patient a direct admission from Transfer from [place]. Please see my other H&P attestation documented in this [facility]09-13-2024 Note* Care Coordination - IRVING Rodriguez - [...] No further needs anticipated. OK FOR DC [facility] Phone: 1(399) 160-519409-13-2024 Note* Care Coordination - IRVING Rodriguez - 03/15/2024 1:09 PM EDT Sw consult for help with housing while baby in NICU, as they live out of town. Met with her and spouse at bedside. They have started process including back ground check and think they have been approved for [facility]. Discussed that they can ask to talk to NICU Sw to finalize details. Mob hoping baby may be able to transfer baby to main campus. Sw also dicussed her and can stay at bedside. Discussed with NICU Sw who did meet with parents to assist. No further needs anticipated. OK FOR DC [facility] Phone: 1(196) 127-430509-13-2024 Note* Care Coordination - Amy Connor RN - 03/15/2024 12:25 PM EDT Date: 03/15/2024 Name: Jose Edward : 1995 [facility] Patient Information Primary Caregiver: Self Accompanied by/Relationship: S/O;Family Marital Status: Support System: SO/Family Yazdanism/Cultural Factors: none Activities of Daily Living Communication: [...] Equipment: Developmental Delay: N/A Children's Services: N/A [id number] Note* Care Coordination - Amy Connor RN - 03/15/2024 12:25 PM EDT Date: 03/15/2024 Name: Jose Edward : 1995 [facility] Patient Information Primary Caregiver: Self Accompanied by/Relationship: S/O;Family Marital Status: Support System: SO/Family Yazdanism/Cultural Factors: none Activities of Daily Living Communication: [...] Equipment: Developmental Delay: N/A Children's Services: N/A [facility] [id number] Obstetrics Note* Note - Melissa Mantilla RN - 03/15/2024 7:00 AM EDT Initial visit with mom. This is mom's first baby, delivered at 30 6/7 weeks. [place] [facility] Nurse has mom set up with [...] electric breast pump- mom to check with [employer] for rental pump.All questions answered. Will continue to monitor, encourage and support patient. [facility] [id number] Hospital Discharge instructions* Discharge Instructions* Marcela Rapp PA-C - 03/15/2024 5:22 AM EDT Images from the original note were not included. Thank you for allowing us to care of you at [facility]. This time can be one of [...] over the next few weeks. Bleeding may picker machine operator and then decrease again around 7-10 days [...] avoid constipation you may take a mild hjjr-fvy-hyhawkh stool softener (such as colace) as recommended [...] emergency, call 911 immediately. documented in this [facility]09-13-2024 Nurse Note* Yaritza Sanford RN - 03/15/2024 [...] of Humalog. Patient voiced understanding and agreeable. [id number] Note* Significant Event - Savanahmaricel Duarte DO - 03/14/2024 6:59 PM EDT 1hr pp 249. Discussed with Dr. Mancia. Will give 4u. Savanah DuarteDO 03/14/2024 6:59 PM Came back from [facility] and had eaten. Now 217. Will not eat further. Will give 4u. Advised on fasting BGT in the morning. Aware not to eat further for true fast in Am. Changed to ISHAN Duarte DO 03/15/2024 12:07 AM .com Phone: [phone]) 213-794509-12-2024 Note* Significant Event - Savanah Duarte DO - 03/14/2024 6:59 PM EDT 1hr pp 249. Discussed with Dr. aMncia. Will give 4u. Savanah GeraldDO 03/14/2024 6:59 PM Came back from NICU and had eaten. Now 217. Will not eat further. Will give 4u. Advised on fasting BGT in the morning. Aware not to eat further for true fast in Am. Changed to ISHAN Duarte DO 03/15/2024 12:07 AM .com Phone: [phone]) 810-394609-12-2024 NotePatient: Jose Edward Procedure Summary Date: 03/14/24 Room / Location: [address] Labor and Delivery Anesthesia Start: 1113 [...] discharged once all PACU criteria has been met.[facility] [id number] NotePatient: Jose Edward Procedure Summary Date: 03/14/24 Room / Location: [address] Labor and Delivery Anesthesia Start: 1113 [...] Allowed opportunity for questions and acknowledgement of understanding.[facility]09-12-2024 NotePeripheral Block Time Out: 03/14/2024 12:37 PM Patient location during procedure: Procedural Start time: 03/14/2024 12:38 PM End time: 03/14/2024 12:40 PM Reason for block: at surgeon's request and post-op pain management Staffing Performed: AUTOMATION MACHINE OPERATOR Anesthesiologist: Antonio Maria MD Resident/AUTOMATION MACHINE OPERATOR: Carolyn Garza APRN - AUTOMATION MACHINE OPERATOR Preanesthetic Checklist Completed: patient identified, IV checked, site marked, risks and benefits discussed, surgical consent, monitors and equipment checked, pre-op evaluation and timeout performed Region: [place] Primary: TAP (60ml of Bupivacaine 0.375% with dexamethasone 0.01% with epinephrine 1:200,000 divided evenly bilaterally) Peripheral Block Patient position: supine Prep: ChloraPrep Patient monitoring: heart rate, cardiac technologist and continuous pulse ox O2: Room air [...] injection and Local anesthetic injected without difficultyMedications asfLWQKPuvdnk-xkxilqvhayr-omtyykclbib (TAP) syringe - Injection 60 mL - 03/14/2024 12:38:00 [facility]09-12-2024 NoteSpinal Block Time Out: 03/14/2024 11:17 AM Patient location during procedure: OB Start time: 03/14/2024 11:18 AM End time: 03/14/2024 11:20 AM Reason for block: primary anesthetic Staffing Performed: AUTOMATION MACHINE OPERATOR Anesthesiologist: Antonio Maria MD Resident/AUTOMATION MACHINE OPERATOR: Carolyn Garza APRN - AUTOMATION MACHINE OPERATOR Preanesthetic Checklist Completed: patient identified, IV checked, [...] Assessment Sensory level: T4 Number of attempts: [address] [place], [place] 1933509-12-2024 NotePatient: Jose Edward Procedure Information Date/Time: 03/14/24 1100 Procedure: DELIVERY (Abdomen) Location: [facility] Labor and Delivery Surgeons: Maria Dolores Gordillo, [...] who consented to blood products. Additional Equipment [facility]09-12-2024 Nurse Note* Yara Chinchilla RN - 03/14/2024 8:27 AM EDT Pt reports spotting on her pad and upon assessing urine found a few red specks in her urine [facility] [id number] Nurse Note* Venessa Gold RN - 03/14/2024 6:[address] Nguyen made aware that pt was just up to restroom and had a quarter size mucousy, bloody clot into toilet. No active bleeding noted. No change to plan of care at this time [facility] [id number] Nurse Note* Venessa Gold RN - 03/14/2024 4:53 AM EDT Pt made aware that order for nothing to eat or drink has been ordered by Dr. Duarte. She states understanding. I made her aware that I will be starting IV fluids also. [facility] HospitalWncsdo28-02-1269 Note* Significant Event - Savanah Duarte DO [...] closely. Savanah Duarte DO 03/13/2024 11:23 PM Gilchrist more cramping. 1cm dilated. Reportedly was 1cm [...] CEFM. Savanah Duarte DO 03/14/2024 4:09 AM [facility] HospitalGhwrdc75-72-1241 Note* Significant Event - Savanah Duarte DO [...] closely. Savanah Duarte DO 03/13/2024 11:23 PM Gilchrist more cramping. 1cm dilated. Reportedly was 1cm [...] CEFM. Savanah Duarte DO 03/14/2024 4:09 AM [facility] [id number] Note* Care Coordination - Amy Connor RN - 03/13/2024 2:48 PM EDT Hospital day 8 at 30/4 weeks. PPROM. Voiced no needs or concerns. [place] [id number] Note* Care Coordination - Amy Connor RN - 03/13/2024 2:48 PM EDT Hospital day 8 at 30/4 weeks. PPROM. Voiced no needs or concerns. [place] [id number] Plan of care note* Care Plan - Rosio Woodruff RN - 03/13/2024 6:37 AM EDT The patient is Moderately Stable - Low risk of patient condition declining or worsening The patient's goals for the shift include remain The clinical goals for the shift include remain afebrile [place] [id number] Plan of care note* Care Plan - Rosio Woodruff RN - 03/13/2024 6:37 AM EDT The patient is Moderately Stable - Low risk of patient condition declining or worsening The patient's goals for the shift include remain The clinical goals for the shift include remain afebrile [facility] [id number] Consult note* Paola Cole MD - 03/12/2024 [...] from NICU Potential need for transfer to [facility]' NICU if needs esclation of care, [...] after she delivers/is discharged. Paola Cole MD [employer] Work Phone: 1(398) 121-390909-10-2024 Consult note* Paola Cole MD - 03/12/2024 2:58 PM EDTAssociated Order(s): IP CONSULT TO NEONATOLOGY Consult by Neonatology Request by OB: Dr. Au Reason for Consult: PPROM, currently 30wks GA (?ROM x 3 weeks) Maternal History and current problem: PPROM, GDMA1, endometriosis Significant history: above Medications: latency atbx, mag Betamethasone given: 9/4-5 Labs: Blood type: O+ Antibody: neg GBS: neg Hepatitis B Ag: RPR: Rubella: HIV: Hepatitis C: GC/CT: neg HSV history: CF: Glucose challenge test: GMA1 Present for Consult: Mom FOB by phone Baby Sex: male Baby [...] from NICU Potential need for transfer to [facility]'s NICU if needs esclation of care, [...] she has already submitted an application to [facility] in order to be closer for baby Josue after she delivers/is discharged. Paola Cole MD documented in this [facility]09-09-2024 Obstetrics Note* Note - Cheryl Marinelli RN [...] options for home going pump; pt has [employer] insurance. Availability of LC for NICU and reviewed. [facility] handout Your NICU Baby given and reviewed. Encouraged to watch videos from [employer] to support her goals. Resource numbers given for [facility] dept and [facility] [employer] dept. Encouraged to call with any questions / concerns. Pt receptive to my visit and education. Denies questions at this time. [id number] Note* Care Coordination - Amy Connor RN - 03/11/2024 4:10 PM EDT Hospital day 6 at 30/2 weeks. Anhydramnios PPROM at 30/2 weeks referral. Voiced no needs or concerns. [facility] [id number] Note* Care Coordination - Amy Connor RN - 03/11/2024 4:10 PM EDT Hospital day 6 at 30/2 weeks. Anhydramnios PPROM at 30/2 weeks referral. Voiced no needs or concerns. [facility] [id number] NoteNutrition Assessment Type and Reason for Visit: [...] anhydramnios; ROM rule out was deferred in [place] secondary to blood noted; transported to [facility]. In triage, SSE showed gross rupture [...] (188 lb) (03/06) Weight Source: Not Specified [place] Body Weight (lbs) (Calculated): 110 lbs [place] Body Weight (Kg) (Calculated): 50 kg % [place] Body Weight (Calculated): 170.9 % BMI (kg/m2) [...] soon to determine Joanne Adame RD Contact: eToro or *[id number] Electronic [facility] [id number] Note* Care Coordination - Julianna Martinez RN - 03/08/2024 3:44 PM EDT Hospital Day 3; 29/6 weeks today; No concerns at this time; Pt states she is interested in the possibility of staying at the [facility] after delivery due to living approx. 2 hours away; patient and provided background check paperwork; will be faxed to [facility] referral line; Will consult for patient as pt would like to see prior to delivery [facility] [id number] Note* Care Coordination - Julianna Martinez RN - 03/08/2024 3:44 PM EDT Hospital Day 3; 29/6 weeks today; No concerns at this time; Pt states she is interested in the possibility of staying at the [facility] after delivery due to living approx. 2 hours away; patient and provided background check paperwork; will be faxed to [facility] referral line; Will consult for patient as pt would like to see prior to delivery [facility] [id number] Note* Care Coordination - Amy Connor RN - 03/07/2024 10:58 AM EDT Date: 03/07/2024 Name: Jose Edward : 1995 [facility] Information [place] - transport Patient Information Primary Caregiver: Self Accompanied by/Relationship: S/O;Family Marital Status: Support System: SO/Family Yazdanism/Cultural Factors: Activities of Daily Living Communication: See [...] N/A Developmental Delay: N/A Children's Services: N/A [facility] [id number] Note* Care Coordination - Amy Connor RN - 03/07/2024 10:58 AM EDT Date: 03/07/2024 Name: Jose Edward : 1995 [facility] Information [place] - transport Patient Information Primary Caregiver: Self Accompanied by/Relationship: S/O;Family Marital Status: Support System: SO/Family Yazdanism/Cultural Factors: Activities of Daily Living Communication: See [...] N/A Developmental Delay: N/A Children's Services: N/A [facility] [id number] Nurse Note* Raegan Estrada RN - 03/07/2024 4:47 AM EDT RN called to bedside at 0435, pt reporting feeling increased leakage of fluid. Denies cramping, contractions, or pain, but does state feeling pressure which has become more constant. Dr Boles aware. Pt instructed to notify RN immediately if pressure intensifies or if cramping / contractions occur. [facility] [id number] History and physical note* Juliana Nguyen DO [...] 3 weeks now. She was evaluated in [place] initially at that time with amnisure that [...] breech on US today. Transport: Yes, from [place] Prior Hospitalizations: No Estimated Due Date: Estimated [...] for about 3 weeks - presented to [place] today complaining of LOF; - US was performed that showed anhydramnios; ROM rule out was deferred in [place] secondary to blood noted - concern for PROM, transported to [facility] - in triage, SSE showed gross rupture of membranes with nitrazine positive, ferning negative and visually closed - Latency Abx ordered, allergy to azithromycin so will proceed with only ampicillin - s/p BMZx1 at 1415 at [place], second dose ordered - magnesium sulfate loading dose given prior to transport, will order continuous infusion at 1g/hr for 12 hours for neuroprotection - CEFM overnight - General carb controlled diet ordered - growth US ordered for tomorrow AM GDMA1 - Carb control diet - has Dexcom in place, share code [id number] - will monitor BGTs fasting and 1 [...] patient was admitted overnight while I was rn oncology. I discussed the assessment and management with the resident physician. I reviewed and agree with the findings and plan as documented in the note. Transferred from [place] for PPROM. 28yo at 29 4/7 weeks presents for PPROM. Gross rupture confirmed on exam with +nitrazine and +ferning. Cervix visually closed and patient overall comfortalbe. Ultrasound at transferring facility with anhydramnios. Breech presentation. Newly diagnosed GDMA1 Will admit for latency antibiotics, BMZ, and mag for neuroprotection. Pattern glucose. CS if for delivery. Saumya Mancia MD [facility] [id number] Note Attestation signed by Saumya Mancia MD at 03/06/2024 6:45 PM Attending Supervising Physician's Attestation Statement This patient was admitted overnight while I was rn oncology. I discussed the assessment and management with the resident physician. I reviewed and agree with the findings and plan as documented in the note. Transferred from [place] for PPROM. 28yo at 29 4/7 weeks [...] 3 weeks now. She was evaluated in [place] initially at that time with amnisure that [...] breech on US today. Transport: Yes, from [place] Prior Hospitalizations: No Estimated Due Date: Estimated [...] Not Performed ASSESSMENT AND (more content not included)...[facility]09-04-2024 History and physical note* Juliana Ace, - 03/06/2024 5:26 PM EDT Department of [...] 3 weeks now. She was evaluated in [place] initially at that time with amnisure that [...] breech on US today. Transport: Yes, from [place] Prior Hospitalizations: No Estimated Due Date: Estimated [...] for about 3 weeks - presented to [place] today complaining of LOF; - US was performed that showed anhydramnios; ROM rule out was deferred in [place] secondary to blood noted - concern for PROM, transported to [facility] - in triage, SSE showed gross rupture of membranes with nitrazine positive, ferning negative and visually closed - Latency Abx ordered, allergy to azithromycin so will proceed with only ampicillin - s/p BMZx1 at 1415 at [place], second dose ordered - magnesium sulfate loading dose given prior to transport, will order continuous infusion at 1g/hr for 12 hours for neuroprotection - CEFM overnight - General carb controlled diet ordered - growth US ordered for tomorrow AM GDMA1 - Carb control diet - has Dexcom in place, share code [id number] - will monitor BGTs fasting and 1 [...] patient was admitted overnight while I was rn oncology. I discussed the assessment and management with the resident physician. I reviewed and agree with the findings and plan as documented in the note. Transferred from [place] for PPROM. 28yo at 29 4/7 weeks presents for PPROM. Gross rupture confirmed on exam with +nitrazine and +ferning. Cervix visually closed and patient overall comfortalbe. Ultrasound at transferring facility with anhydramnios. Breech presentation. Newly diagnosed GDMA1 Will admit for latency antibiotics, BMZ, and mag for neuroprotection. Pattern glucose. CS if for delivery. Saumya Mancia MD documented in this [facility]04-11-2024 NotePap Smear Specimen AdequacyApril 2023 11:59pmComment.Satisfactory for evaluation. No endocervical component is identified.[facility] INTERFACED A#[id number] Hospitals Beachwood Medical CenterComment on above:Satisfactory for evaluation. No endocervical component is identified.10-12-2023 NotePap Smear Specimen AdequacyApril 2023 11:59pmComment.Satisfactory for evaluation. No endocervical component is identified.[facility] INTERFACED A#[id number] Hospitals Beachwood Medical CenterComment on above:Satisfactory for evaluation. No endocervical component is identified. 09-19-2023 Discharge summary Author Karlos Miller [facility] September 19, 2023 4:24pm Note Date/Time September 19, 2023 12: 23pm [facility] Medical Records Department [address] [place] [address] Emergency Department Summary 09/19/23 MR#: [id number] Acct: [id number] Name: JOSE EDWARD Rep #:[id number] : 1995 28 From: Karlos Sarmiento PCP: [...] Patient states the procedure was done in [place] but she follows with Dr. Velarde locally. [facility] Medical History Abnormal uterine bleeding (AUB) Alcohol [...] 0 current occupational status: employed current occupation: [employer] Smoking Status: Former smoker Electronic Cigarette Use: with nicotine alcohol intake: never substance use type: does not use seatbelt use: always do you feel safe at home: Yes additional social history: - Andrea Woods ROS ROS ED Constitutional Constitutional ED: Denies [...] 77.7 H Lymph % (Auto) 16.6 L Crowley % (Auto) 4.6 Eos % (Auto) 0.2 [...] Sl. Cloudy Urine pH 8.0 Ur Specific Anderson 1.010 Urine Protein Negative Urine Glucose (UA) [...] Patient was instructed to follow-up with her OIL SALES AND SERVICE REP in 2 to 3 days. Patient was [...] mg PO DAILY Primary Care Provider: Marco Melivn Referrals: Julianna Newman DO [Med Staff - Active Staff] - Keep Marivel appointment Marco Melvin PA [Primary Care Provider] - Disposition Disposition: Home, Self Care What to do if you have Problems For any increased pain, shortness of breath, bleeding, nausea or vomiting, chestpain, or any unexpected problems, contact your Primary Care Provider. Call [facility] ([phone]) or report to the closest Emergency Room. Call 911 if necessary. 09/19/23 1624 <Electronically signed by Karlos Miller DO> Cosigner Signature (if applicable): CC: CHERYL Samano ~ Signed [facility] Work Phone: 1(833) 820-860306-02-[address] Villareal [facility] December 02, 2022 10:42am Note Date/Time December 02, 2022 10:39 am [facility] Medical Records Department [address] [place] [address] Instructions for Home/Discharge Instructions 12/02/22 1038 MR#: [id number] Acct: [id number] Name: JOSE EDWARD Rep #:[id number] : 1995 27 From: Julianna Newman DO PCP: CHERYL Samano Status:[facility] Discharge Instructions Diet Discharge Diet: No restrictions [...] Newman DO CC: CHERYL Melvin ~ Signed [facility] Work Phone: 1(761) 246-417506-02-2023 Procedure [facility] 12-02-2022 History and physical note Author Dr. Villareal [facility] December 02, 2022 10:38am Note Date/Time December 02, 2022 10:38 am [facility] Medical Records Department [address] [place] [address] History & Physical Exam 12/02/22 1037 MR#: [id number] Acct: [id number] Name: JOSE EDWARD Rep #:[id number] : 1995 27 From: Julianna Newman DO PCP: CHERYL Samano Status:REG [facility] Location: [place] [address] History and Physical Date of Admission: 12/02/22 Intake Vital Signs ? 11/09/2310:22 11/09/2310:22 Height 5 ft 2 in 5 ft 2 in Weight: 156 lb 6 oz ? BMI 28.5 ? BP 116/76 ? Intake Visit Reasons:?diagnostic lap & fulguration Consular Officer Required: No Is patient in pain?: No [...] 0 current occupational status:? employed current occupation:? [employer] Smoking Status:? Current every day smoker Electronic [...] success. was seeing Dr. Del Real at [facility] and had a hysteroscopy D&C with [...] CHERYL Melvin; Dr. Julianna Newman DO~ Signed [facility] Work Phone: 1(353) 637-657204-14-2023 NotePap Smear Specimen AdequacyApril 2022 5:09pmComment.Satisfactory for evaluation. Endocervical and/or squamous metaplasticcells (endocervical component)are present.[facility] INTERFACED A#[id number] Hospitals Beachwood Medical CenterComment on above:Satisfactory for evaluation. Endocervical and/or squamous [...] advise. Yas Hogan RN [facility] History of Past illness Narrative* Problem Noted Date Resolved Date Blurring of vision 09/13/2011 11/05/2018 Dizziness 05/10/2011 11/05/2018 Ingrowing nail 04/06/2011 07/28/2021 Cellulitis and abscess of toe, unspecified 03/1711/05/2018 documented as of this encounter (statuses as of 04/08/2022) [facility] HospitalEvaluation noteNo assessment information availableWWVUMedicine [facility] Work Phone: Evaluation note* Diagnosis Onset Date Resolution Status Encounter for routine gynecological examination noneactive Abnormal uterine bleeding ac [place] Infertility acute Abnormal uterine bleeding ac [place] Infertility acute [facility] Work Phone: evaluation note* Diagnosis Onset Date Resolution Status Abnormal uterine bleeding ac [place] Infertility acute Infertility acute Status post laparoscopy [facility] Work Phone: evaluation note* Diagnosis Onset Date Resolution Status Abnormal uterine bleeding ac [place] Status post laparoscopy [facility] Work Phone: evaluation note* Diagnosis Onset Date Resolution Status Abnormal uterine bleeding ac [place] [facility] Work Phone: evaluation note* Diagnosis Onset Date Resolution Status Abnormal uterine bleeding ac [place] Abnormal uterine bleeding ac [place] Conceived by in vitro fertilization acute Genetic testing of female ac [place] Infertility acute PCOS (polycystic ovarian syndrome) acute acute Supervision of high-risk acute Anxiety and depression chron ic [facility] Work Phone: evaluation note* Diagnosis Onset Date Resolution Status Abnormal uterine bleeding ac [place] Abnormal uterine bleeding ac [place] Conceived by in vitro fertilization acute Genetic testing of female ac [place] Infertility acute PCOS (polycystic ovarian syndrome) acute acute Supervision of high-risk acute Anxiety and depression chron ic Conceived by in vitro fertilization acute Genetic testing of female ac [place] Infertility acute acute Supervision of high-risk acute Anxiety and depression chron ic [facility] Work Phone: evaluation note* Diagnosis Anhydramnios in third trimester, single or unspecified fetus- Primary Anhydramnios in third trimester, single or unspecified fetus Vaginal bleeding in , third trimester S/P documented in this encounter [facility] note* Diagnosis History of gestational diabetes Personal history of gestational diabetes [facility] Diagnosis Ovarian hyperstimulation syndrome- Primary Other ovarian hyperfunction Ovarian hyperstimulation syndrome Other ovarian hyperfunction documented in this encounter [facility] note* Diagnosis Onset Date Resolution Status Admit Date Encounter for routine gynecological examination noneactive Sept2024 2:30pm [facility] Work Phone: Hospital Discharge instructions Additional Instructions Plenty of fluids and rest to replace your blood loss. Motrin and Tylenol for pain and cramping. Follow-up with your OIL SALES AND SERVICE REP to ensure you are improving. Your test was negative. Your blood counts were normal.[facility] Work Phone: Hospital Discharge instructions Additional Instructions Implant Used?: [facility] Work Phone: Hospital Discharge instructions Additional Instructions The x-ray of your abdomen shows significant constipation. I recommend you take magnesium citrate which is sold [id number]. Drink plenty of water and Gatorade to avoid dehydration as this will cause a lot of bowel movements. You also could be having pain from the ovarian hyperstimulation syndrome which should get better over time. I recommend follow- up with your OIL SALES AND SERVICE REP.[facility] Work Phone: Reason for referral (narrative)No reason for referral information availableKern Medical Center Work Phone: Rezuin for visit Narrative* Auth/Cert (Routine) Specialty Diagnoses / Procedures Referred By Contac t Referred To Contact Diagnoses Ovarian hyperstimulation syndrome Ovarian hyperstimulation syndrome Procedures . Barak Covarrubias MD [address] [place] [address] [address] [place] [address] Phone: tel: fax: [facility] Medical Surgical Unit [facility] [address] [place] [address] Phone: tel: Referral ID Status Reason Start Date Expiration Date Visits Re quested Visits Authorized [id number] 1 1 [facility] Health Summary Purpose Family History No Family History Records Found Relationship Condition Age at Onset Recorded Date/T heber mother Diabetes mellitus Unknown uncle Diabetes mellitus Unknown grandmother Diabetes mellitus Unknown Advance Directives No Advanced Directives Records Found Advance Directive Response Recorded Date/ Time Living Will No April 08 7:23pm Power of Hammerer Tab No April 08 022 7:23pm Advance Directive Response Recorded Date/ Time Living Will No November 22, 2022 1 0:47am Power of Hammerer Tab No November 22, 2022 10:47am Advance Directive Response Recorded Date/ Time Living Will No November 22, 2022 9 :47am Power of Hammerer Tab No November 22, 2022 9:47am Advance Directive Response Recorded Date/ Time Living Will No September 19, 2023 1:13pm Power of Hammerer Tab No September 18 1:13pm Advance Directive Response Recorded Date/ Time Living Will No October 12, 2023 3:47pm Power of Hammerer Tab No October 11 3:47pm Date Activated Date Inactivated Comments 03/06/2024 5:26 PM 03/17/2024 8:57 PM Advance Directive Response Recorded Date/ Time Living Will No October 11, 2024 9:40pm Do you have a Healthcare Power of Hammerer Tab? No October 11, 2024 9:40pm Date Activated Date Inactivated Comments 10/12/2024 3:53 AM 10/13/2024 2:55 PM Date Activated Date Inactivated Comments 03/06/2024 5:26 PM 03/17/2024 8:57 PM Advance Directive Response Recorded Date/ Time Living Will No October 11, 2024 9:40pm Do you have a Healthcare Power of Hammerer Tab? No October 11, 2024 9:40pm Living Will No October 14, 2024 8:36pm Do you have a Healthcare Power of Hammerer Tab? No October 14, 2024 8:36pm Chief Complaint and Reason for Visit Chief Complaint VAG BLEEDING Chief Complaint Annual ([employer]) THYROMEGALY THYROMEGALY diagnostic lap & fulguration diagnostic [...] 6:2 6pm Chief Complaint Admit Date Annual ([employer]) March 06, 2025 2:30pm Reason for Visit Admit Date Encounter for routine gynecological exam ination March 06, 2025 2:30pm Additional Source Comments INFORMATION SOURCE (unrecogn ized section and content) DATE CREATED AUTHOR 08/05/2021 [facility] DATE CREATED AUTHOR AUTHOR'S ORGANIZ ATION 05/06/2023 [facility] DATE CREATED AUTHOR AUTHOR'S ORGANIZ ATION 05/15/2024 [facility] DATE CREATED AUTHOR AUTHOR'S ORGANIZ ATION 10/14/2024 [facility] DATE CREATED AUTHOR AUTHOR'S ORGANIZ ATION 04/09/2025 [facility] DATE CREATED AUTHOR AUTHOR'S ORGANIZ ATION 04/27/2025 [facility] DATE CREATED AUTHOR AUTHOR'S ORGANIZ ATION 05/14/2025 LUBA CALDWELL N Source Comments (unrecognize d section and content) In the event this informatio n is protected by the Federal Confidentiality of Alcohol and Drug Abuse Patient Records regulations: The Federal rules restrict any use of the information to criminally investigate or prosecute any alcohol or drug abuse patient.[facility] Reason for Visit (unrecogniz ed section and content) Reason Comments Heavy Bleeding Reason Comments Rupture of Membranes Specialty Diagnoses / Procedures Referred By Contac t Referred To Contact Diagnoses Anhydramnios in third trimester, single or unspecified fetus Procedures . Saumya Mancia MD [address] [place] [address] [address] [place] [address] Referral ID Status Reason Start Date Expiration Date Visits Re quested Visits Authorized [id number] 1 1 Care Teams (unrecognized sec tion and content) Lodging Facilities Attendant Relationship Specialty Start Date End Date Zbigniew Matta MD [address] [place], [place] [id number] PCP - General Family Medicine 11/06/18 Team [...] Care Provider Active Dr. Karlos Miller , DO Emergency Provider Active Team Status: Inactive Member Role Status Dates Marco Melvin PA Primary Care Provider Active Dr. Karlos Miller , Attending Provider, Emergency P rovider Active Team Status: Active Member Role Status Dates Dr. Romel Ritter MD Family Provider Active Marcojohn Melvin PA Primary Care Provider Active Team Status: Inactive Member Role Status Dates Marcojohn Melvin PA Primary Care Provider, Referring Pro vider Active Dr. Venessa Newby MD Attending Provider Active Team Status: Inactive Member Role Status Dates Marco Melvin PA Primary Care Provider Active Dr. Julianna Newman DO Attending Provider Activ e Team Status: Inactive Member Role Status Dates Marcojohn Melvin PA Primary Care Provider, Referring Pro vider Active Denny Bauer CENTRIFUGE SEPARATOR OPERATOR, CENTRIFUGE SEPARATOR OPERATOR-C Attending Provider Active Team Status: Inactive Member Role Status Dates Marco Melvin PA Primary Care Provider Active Denny Bauer CENTRIFUGE SEPARATOR OPERATOR, CENTRIFUGE SEPARATOR OPERATOR-C Attending Provider, Referring Provider Active Lodging Facilities Attendant Relationship Specialty Start Date End Date Jeff Nguyen MD [address] [facility] [address] [place] [address] PCP - General 03/11/14 Team Status: Active Member Role Status Dates Marco Melvin PA Primary Care Provider Active Team Status: Inactive Member Role Status Dates Marco Melvin PA Primary Care Provider Active S tart: June 19, 2024 End: June 19, 2024 Marco Melvin , PA Referring Provider Active Star t: June 19, 2024 End: June 19, 2024 AMY Monae Attending Provider Active Start: June 19, 2024 End: June 19, 2024 Team Status: Inactive Member Role Status Dates Marco Melvin , PA Primary Care Provider Active S tart: [...] August 15, 2024 Dr. Julianna Newman , DO Attending Provider Activ e Start: August 15, 2024 End: August 15, 2024 Dr. Julianna Newman , Referring Provider Activ e Start: August 15, [...] October 11, 2024 End: October 12, 2024 Lodging Facilities Attendant Relationship Specialty Start Date End Date Marco Melvin [address] [place] [address] [place] [address] PCP - General 10/12/24 Team Status: Inactive [...] March 06, 2025 Dr. Julianna Newman , DO Attending Provider Activ e Start: March 06, 2025 End: March 06, 2025 Team Status: Active Member Role/Relationship Status Dates CHERYL Samano Primary care physician Active Team Status: Inactive Member Role/Relationship Status Dates CHERYL Samano Primary care physician Active Start: March 06, 2025 End: March 06, 2025 CHERYL Samano Referring Provider Active Star t: March 06, 2025 End: March 06, 2025 Dr. Julianna Newman DO Attending physician Active Start: March End: March 06, 2025 Team Status: Inactive Member Role/Relationship Status Dates CHERYL Samano Primary care physician Active Start: March 24, 2025 End: March 24, 2025 Dr. Yola Schaffer MD Attending physician Active Start: March 24, 2025 End: March 24, 2025 Dr. Yola Schaffer MD Referring Provider Active Start: March 24, 2025 End: March 24, 2025 Team Status: Active Member Role/Relationship Status Dates CHERYL Samano Primary care physician Active Start: March 28, 2025 Dr. Yola Schaffer MD Attending physician Active Start: March 28, 2025 Dr. Yola Schaffer MD Referring Provider Active Start: March 28, 2025 Team Status: Active Member Role/Relationship Status Dates CHERYL Samano Primary care physician Active Start: March 31, 2025 Dr. Yola Schaffer MD Attending physician Active Start: March 31, 2025 Dr. Yola Schaffer MD Referring Provider Active Start: March 31, 2025 Team Status: Inactive Member Role/Relationship Status Dates CHERYL Samano Primary care physician Active Start: March 28, 2025 End: March 28, 2025 Dr. Yola Schaffer MD Attending physician Active Start: March 28, 2025 End: March 28, 2025 Dr. Yola Schaffer MD Referring Provider Active Start: March 28, 2025 End: March 28, 2025 Team Status: Active Member Role/Relationship Status Dates CHERYL Samano Primary care physician Active Start: April 02, 2025 Dr. Yola Schaffer MD Attending physician Active Start: April 02, 2025 Dr. Yola Schaffer MD Referring Provider Active Start: April 02, 2025 Team Status: Inactive Member Role/Relationship Status Dates CHERYL Samano Primary care physician Active Start: March 31, 2025 End: March 31, 2025 Dr. Yola Schaffer MD Attending physician Active Start: March 31, 2025 End: March 31, 2025 Dr. Yola Schaffer MD Referring Provider Active Start: March 31, 2025 End: March 31, 2025 Goals (unrecognized section and content) Type Care Experience svdLabor Preferences -CB/BF classes: []labor support person: []labor intervention preferences: []pain management options preferred: []cut cord/dad catch: []: []PP control planned: []discussed possible routes of delivery and associated risks: []special requests: [] Scheduled Active and Recently Administ ered Medications [...] Hollie Avalos RN)1704 (Given - Provider: Yolanda Quigley, HENRIQUE)1900 (Canceled Entry - Provider: Sonja Phipps RN)2306 [...] Char Chacon RN)0830 (Given - Provider: Maryellen Posey, HENRIQUE)1448 (Given [...] sedation for opioid reversal - MUST notify rn oncology provider immediately after first dose, may give [...] Lawson RN)1758 (See Alternative - Provider: Maryellen Lawson RN)2202 (Given - Provider: Sonja Phipps RN) 0314 (See Alternative - Provider: Sonja Phipps, RN)0910 (See Alternative - Provider: Hollie Avalos, RN)1308 (Given - Provider: Hollie Avalos RN)1703 (Given - Provider: Yolanda Quigley RN)2306 (See Alternative - Provider: Sonja Phipps RN) 0554 (See Alternative - Provider: Sonja Phipps, RN)1029 (See Alternative - Provider: Maryellen Posey RN)1448 (See Alternative - Provider: Maryellen Posey RN)1835 (See Alternative - Provider: Maryellen Posey, HENRIQUE) oxyCODONE (Roxicodone) immediate release tablet 5 mg(Linked Group 4) 5 mg, Oral, Every 4 hours PRN, moderate pain (4-6), Starting on Lali 03/14/24 at 1500, 0058 (Given - Provider: Yaritza Sanford, HENRIQUE)1401 (Given - Provider: Maryellen Lawson, HENRIQUE)1758 (Given - Provider: Maryellen Lawson RN)2202 (See Alternative - Provider: Sonja Phipps, HENRIQUE) 0314 (Given - Provider: Sonja Phipps, RN)0910 (Given - Provider: Hollie Avalos RN)1308 (See Alternative - Provider: Hollie Avalos RN)1703 (See Alternative - Provider: Yolanda Quigley RN)2306 (Given - Provider: Sonja Phipps, HENRIQUE) 0554 (Given - Provider: Sonja Phipps, RN)1029 (Given - Provider: Maryellen Posey, HENRIQUE)1448 [...] Poe RN) 0800 (Given - Provider: Ashwini Lewis, HENRIQUE) famotidine (Pepcid) tablet 20 mg 20 [...] sedation for opioid reversal - MUST notify rn oncology provider immediately after first dose, may give [...] before administering. 1107 (Given - Provider: Ashwini Lewis RN) oxyCODONE (Roxicodone) immediate release tablet 5 mg [...] BE BASED ON THE PRIMARY CLINICAL RECORDS. [employer] [facility]. provides no warranty or guarantee of the accuracy or completeness of information in this document.
[2025-06-27 10:41] LABS: hCG Titer Quant., Serum 2245 mIU/mL (<9 non-preg)
[2025-06-28 04:07] LABS: PROGESTERONE 29.6 ng/mL (.)
== END | disposition home or self-care (01) ==
LOC: US 08:56
PROVIDERS: Referring Provider Obstetrics & Gynecology Reproductive Endocrinology; Visit Provider Obstetrics & Gynecology Reproductive Endocrinology
DX: O09.00 Supervision of pregnancy with history of infertility, unspecified trimester (principal); Z3A.00 Weeks of gestation of pregnancy not specified
CPT/HCPCS: 36415; 76817; 82670; 84144; 84702

== ENCOUNTER 2025-06-29 09:41 | Day surgery (SDC) | payer BC, SELFPAY ==
[2025-06-29] VITALS (13 sets, daily range): BP systolic 107–141; BP diastolic 73–97; PULSE 74–124; RESP 16–18; TEMP 36.2–36.9; O2SAT 96–99; BMI 31.6
--- NOTE | 2025-06-29 09:46 | US_ITS ---
PROCEDURE: TRANSVAGINAL W/PREG US 06/29/2025 REASON FOR EXAM: CONCERN FOR ECTOPIC In-vitro fertilization transfer on June 03, 2025 TECHNIQUE: Procedure Code: [id number] Modality: US Procedure: TRANSVAGINAL W/PREG US COMPARISON: 06/27/2025 FINDINGS Uterus: The uterus measures 8.8 x 5.2 x 3.9 cm. A fibroid is noted in the right fundus measuring 1.1 x 1.1 x 0.6 cm. No intrauterine gestational sac is visualized. The endometrium is heterogenous and measures up to 0.6 cm. The right ovary measures 2.5 x 1.9 x 2.4 cm. The left ovary measures 3.4 x 2.1 x 1.6 cm. Normal color flow is noted. Within the left adnexa, there is a heterogenous structure adjacent to the left ovary with some increased vascularity measuring 1.5 x 1.6 x 1.8 cm. US/Transvaginal w/Preg US IMPRESSION: Within the left adnexa, there is a heterogenous structure adjacent to the left ovary with some increased vascularity measuring 1.5 x 1.6 x 1.8 cm. Given there is no intrauterine gestational sac and recent in-vitro fertilization implantation, this is suspicious for ectopic . Recommend follow-up with serial beta HCG and pelvic ultrasound. No evidence of ovarian torsion. No uterine fibroid. Reading Location: [facility]
--- NOTE | 2025-06-29 10:15 | ED.VIS.FEGU ---
HPI HPI - Female History of Present Illness Chief Complaint: Narrative Narrative: Patient is a 29-year-old female G5, P1 with previous miscarriages who presents to the emergency department with the complaint of needing repeat ultrasound and quant level as there is concern for ectopic . She states that she follows with fertility clinic and notes that her quant level was rising however they are not seeing any intrauterine pregnancies therefore there is high suspicion for a ectopic . Patient states that she has not had any pain no vaginal bleeding. Patient states that she was here on Monday. [facility] Medical History Abnormal uterine bleeding Conceived by in vitro fertilization Supervision of high-risk Decreased movement False labor before 37 completed weeks of gestation premature rupture of membranes (PPROM) with unknown onset of labor Genetic testing of female Wears contact lenses Anxiety Alcohol use Heartburn Vapes nicotine containing substance Endometrial polyp Abnormal uterine bleeding (AUB) Home Medications ?Medication ?Instructions ?Recorded ?Last Taken ?Type omeprazole 20 mg tablet,delayed 40 mg PO DAILY 10/03/23 02/16/24 08:00 History release 20 mg cholecalciferol (vitamin D3) 50 2,000 unit PO DAILY 10/11/24 Unknown History mcg (2,000 unit) capsule (D3-2000) metformin 750 mg tablet,extended 750 mg PO DAILY 10/11/24 Unknown History release 24 hr prednisone 10 mg tablet 10 mg PO BID 10/11/24 Unknown History multivitamin no.47-iron fum 27 1 cap PO DAILY #90 caps 01/14/25 Unknown Rx mg-folate no.1 1 mg-dha 300 mg capsule (PNV-DHA) enoxaparin 30 mg/0.3 mL 30 mg subcut Q24H 03/06/25 Unknown History subcutaneous syringe (Lovenox) loratadine 10 mg tablet (Claritin) 10 mg PO QDAY 03/06/25 Unknown History naltrexone 1.5 mg capsule 3 mg PO .once a day 03/06/25 Unknown History estradiol 2 mg tablet 2 mg PO TID 06/27/25 Unknown History levothyroxine 25 mcg tablet 25 mcg PO DAILY 06/27/25 Unknown History (Euthyrox) progesterone 50 mg/mL 50 mg IM 06/27/25 Unknown History intramuscular oil progesterone micronized 200 mg 200 mg PO QHS 06/27/25 Unknown History capsule (Prometrium) tacrolimus 1 mg capsule, 1 mg PO TID 06/27/25 Unknown History immediate-release (Prograf) Allergy/AdvReac Type Severity Reaction Status Date / Time Latex, Natural Rubber Allergy Intermediate Other Verified 06/29/25 09:44 azithromycin (From Zithromax) Allergy JOHN Verified 06/29/25 09:44 VIJI'S SYNDROME venlafaxine Allergy Other Verified 06/29/25 09:44 Family History Mother Diabetes Uncle Diabetes Grandmother Diabetes Surgical History [place] teeth extracted History of hysteroscopy Status post laparoscopy S/P D&C (status post dilation and curettage) Hx of lumpectomy History of tonsillectomy and adenoidectomy Social History adopted: No household members: spouse number of children: 1 current occupational status: employed current occupation: [employer] current occupational exposures/hazards: No pets and animals: Yes (Avoid litterbox) pets and animals: cat(s) and dog(s) history of recent travel: Yes ([facility]) out of state: Yes out of country: No sexually active: Yes Smoking Status: Never smoker Electronic Cigarette Use: with nicotine alcohol intake: never substance use type: does not use well-balanced diet: daily or most days caffeine: No eating out: 1-3 times/week during the past year weight has: increased > 10 lbs what type of physical activity do you participate in: none jessica/caodaism: Islam seatbelt use: always do you feel safe at home: Yes additional social history: - Andrea PHILLIPS ROS ED ROS Narrative Constitutional: Denies fevers Abdomen: Denies abdominal pain : Denies urinary symptoms Neurological: Denies numbness, weakness, tingling Musculoskeletal: Denies back pain Skin: Denies rashes or lesions EXAM Physical Exam Narrative Exam Narrative: General: Patient is lying in bed resting comfortably. In acute distress Head: Atraumatic, normocephalic Eyes: PERRL bilaterally, EOMI bilaterally, no conjunctival injection noted Neck: Soft, supple, trachea midline Cardiovascular: Patient tachycardic Abdomen: Soft, nondistended, tenderness to palpation Extremities: +5/5 strength noted in the bilateral upper and lower extremities Neurological: Patient following commands knew that she was at [facility] year is 2024 Skin: Warm, dry, intact no rashes or lesions noted Const Vital Signs: 06/29/25 09:42 06/29/25 11:42 06/29/25 13:00 Temperature 98.2 F Temperature Source Oral Pulse Rate 124 H 101 H 87 Respiratory Rate 18 16 16 Blood Pressure 141/97 H 108/73 113/86 H Blood Pressure Mean 111 84 95 Pulse Ox 99 99 99 Oxygen Delivery Method Room Air Room Air Room Air MDM MDM MDM Narrative Medical decision making narrative: Patient is a 29-year-old female who presented to the emergency department with a chief complaint of need a repeat ultrasound and quant level. On the differential diagnose includes but limited to intrauterine , ectopic , molar . Once workup is obtained reviewed she will be reevaluated. Patient's quant level was noted to be 2983. Patient's ultrasound reviewed and showed findings concerning for ectopic . I reached out to Dr. Franco who after discussion with the patient further would prefer to go to surgery therefore she recommends holding the methotrexate. Patient is also agreeable this plan once again all question concerns were answered at bedside. Lab Data Labs: Laboratory Results - last 24 hr 06/29/25 06/29/25 09:54 10:19 HCG, Quant 2983 H Urine Color Yellow Urine Clarity Sl. Cloudy Urine pH 6.5 Ur Specific [place] 1.020 Urine Protein 30 H Urine Glucose (UA) Normal Urine Ketones Negative Urine Occult Blood 250 H Urine Nitrite Negative Urine Bilirubin Negative Urine Urobilinogen Normal Ur Leukocyte Esterase 25 H Urine RBC 50-100 SEEN Urine WBC 10-25 SEEN Ur Squamous Epith Cells 5-10 SEEN Urine Bacteria 2+ Urine Mucus 0 SEEN Radiography Diagnostic Testing: Clinical Impression(s) from Imaging Studies Obstetrics Ultrasound 06/29/25 09:46 IMPRESSION: Within the left adnexa, there is a heterogenous structure adjacent to the left ovary with some increased vascularity measuring 1.5 x 1.6 x 1.8 cm. Given there is no intrauterine gestational sac and recent in-vitro fertilization implantation, this is suspicious for ectopic . Recommend follow-up with serial beta HCG and pelvic ultrasound. No evidence of ovarian torsion. No uterine fibroid. Reading Location: [facility] Discharge Plan Dx/Rx/DC Orders Clinical Impression: Infertility, PCOS (polycystic ovarian syndrome), In vitro fertilization, Ectopic Disposition Disposition: Acute Care Hospital [facility]
[2025-06-29 10:26] LABS: Mucous, Urine 0 SEEN /hpf (<or=2+)
[2025-06-29 10:38] LABS: Color, Urine Yellow (Yellow); Glucose, Dipstick Normal (Normal); Ketone-Dipstick Negative (Negative); Leukocyte Esterase-Dipstick 25 /ul (Negative); Nitrite-Dipstick Negative (Negative); Occult Blood-Urine 250 /ul (Negative); Protein-Dipstick 30 mg/dl (Negative); Specific Gravity, Urine 1.020 (1.002-1.030); Urine Bilirubin Dipstick Negative (Negative)
--- OUTSIDE RECORDS SUMMARY | 2025-06-29 10:39 | XMS RPT_ITS | CCD ---
Author Organization [facility] Care Team Providers Care In Service Education Teacher Name Role Phone Zbigniew Matta MD Primary Care Provider CHERYL Melvin Primary Care Provider [phone] CHERYL Melvin Referring Provider Dr. Julianna Newman Attending Provider [phone] Dr. Julianna Newman Referring Provider [phone] Dr. Julianna Newman Other Provider CHERYL Melvin Primary Care Provider Dr. Julianna Newman Attending Provider [phone] CHERYL Melvin Referring Provider Marco Melvin PA-C Unavailable Gastroenterology Provider Unavailable UnavaFederico Parra PA-C Unavailable Chelsea Paez MA Unavailable Unavailable Maryellen Reyes LPN Unavailable Unavailable Natalia DUENAS, Nandini Corona Unavailable Unavaila janusz Mar LPN, Alysia Unavailable Unavailable Mniesh AMEZQUITA, Chin Unavailable Unavailable Unavailable Unavailable CHERYL Melvin Primary Care Provider CHERYL Melvin Referring Provider Dr. Julianna Newman Attending Provider [phone] Dr. Venessa Newby Attending Provider [phone] Juancarlos QUILTING MACHINE HELPER, AMY Benz Attending Provider [phone] Natalie Hopkins MA Unavailable Unavailable Unavailable Primary Care Provider UnavailJeff Stevens MD Primary Care Provider [phone] LUCILA HO Attending Unavailable BAY, JEFF Primary Care Unavailable ZEVEVJULIANNA ROONEY Referring Unavailab le TERESA, JULIANNA Attending Unavailable TERSEA, JULIANNA Referring Unavailable BAY, JEFF Primary Care [...] Care Provider Marco Morales Referring Provider Adrián QUILTING MACHINE HELPER-CLilly Attending Provider Adrián QUILTING MACHINE HELPER-CLilly Referring Provider Dr. Julianna Newman DO Attending Provider Dr. Julianna Newman DO Referring Provider Dr. Yola Schaffer MD Other Provider [phone] Fern Marroquin DO Emergency Provider [phone] Duane Marco Primary Care Provider BARAK COVARRUBIAS Admitting Unavailable BARAK COVARRUBIAS Attending Unavailable NONE, PCP Referring Unavailable MELVIN, MARCO Primary Care Unavailable GAVINO, SAUMYA Admitting Unavailable REKHA ROD Consulting Unavailable CHRISTIANO AU Attending Unavailable Sadiq GATES, Dr. Doty Emergency Provider Duane LUNA, Marco Primary Care Provider Marco [...] Sampson Attending Unavailable Lilly Sampson Referring Unavailable Kilkyleigh, Yola Referring Unavailable Melvin, Marco Primary Care Unavailable Sarbjit, Yola Attending Unavailable Melvin, Marco Primary Care Unavailable Kilkyleigh, Yola Referring Unavailable Kilkyleigh, Yola Attending Unavailable Yola Schaffer Consulting Unavailable Melvin, Marco Primary Care Unavailable Julianna Newman Attending Unavailabl e Julianna Newman Referring Unavailabl e Ungur, Remus Attending Unavailable Melvin, Marco Primary Care Unavailable Melvin, Marco Primary Care Unavailable Fortune QUILTING MACHINE HELPER, Angelica Attending Unavailable Fortune QUILTING MACHINE HELPER, Angelica Referring Unavailable Kiltz, Yola Referring Unavailable Melvin, Marco Primary Care Unavailable Kilkyleigh, Yola Attending Unavailable Melvin, Marco Primary Care [...] Other (See Comments), Shortness Of Breath, Swelling [facility] Work Phone: (20 sources) venlafaxine; Translations: [VENLAFAXINE] Drug Allergy 9 Other: See Comments, Other (See Comments) [facility] Work Phone: (20 sources) Zithromax *MACROLIDES* [facility] (9 sources) natural latex rubber Allergy to substance 4 Other [facility] Comment on above: Blisters with Bandai d use (5 sources) Latex; Translations: [LATEX] Propensity to adverse reactions 4 [facility] (1 source) Latex Propensity to adverse reactions 4 [facility] (1 source) Azithromycin Drug Allergy 5 [facility] Repository (1 source) natural latex rubber Drug allergy (disorder) 5 [facility] Repository (1 source) venlafaxine Drug Allergy 5 [facility] Repository Medications Current Medications Medication Drug Class(es) [...] 08, 2023 1:00am November 21, 2023 8:46am [facility] Laboratory [address], [address] RDW SD 46.8 fl High 35.1-43.9 [facility] Comment on above: Performed By: #### L 500.2500, L100.0100, L700.6800 #### [facility] Laboratory [address], [address] WBC (Bld) [#/Vol] 11.1 10*3/uL High 4.4-11.0 [facility] Comment on above: Performed By: #### L 500.2500, L100.0100, L700.6800 #### [facility] Laboratory [address], [address] Carbon dioxide, total [Moles /volume] in Central venous bloodOrdered By: Soren Babcock on 10-14-2024 CO2 [Moles/Vol] 24.3 mmol/L 21.0-32.0 [facility] Chloride assayOrdered By: Ayan Babcock on 10-14-2024 Chloride [Moles/Vol] 101 mmol/L 98-108 [facility] Comprehensive Metabolic Prof ilon 10-14-2024 Albumin [Mass/Vol] 4.0 g/dL Normal 3.5-5.0 [facility] Comment on above: Performed By: #### L 500.2500, L100.0100, L700.6800 #### [facility] [address] [place], [address] Albumin/Globulin [Mass ratio] 1.7 {ratio} Normal 0.9-2.4 [facility] Comment on above: Performed By: #### L 500.2500, L100.0100, L700.6800 #### [facility] Laboratory [address] [place], [address] ALK PHOS 65 U/L Normal 35-104 [facility] Comment on above: Performed By: #### L 500.2500, L100.0100, L700.6800 #### [facility] [address] [place], [address] ALT [Catalytic activity/Vol] 14 U/L Normal <=34 [facility] Comment on above: Performed By: #### L 500.2500, L100.0100, L700.6800 #### [facility] [address] [place], [address] AST [Catalytic activity/Vol] 19 U/L Normal <=31 [facility] Comment on above: Performed By: #### L 500.2500, L100.0100, L700.6800 #### [facility] [address] [place], [address] Bilirubin [Mass/Vol] 0.56 mg/dL Normal 0.00-1.30 [facility] Comment on above: Performed By: #### L 500.2500, L100.0100, L700.6800 #### [facility] [address] [place], [address] BUN/CRE 15.2 RATIO Normal 10-20 [facility] Comment on above: Performed By: #### L 500.2500, L100.0100, L700.6800 #### [facility] [address] [place], [address] Calcium [Mass/Vol] 8.8 mg/dL Normal 7.6-11.0 [facility] Comment on above: Performed By: #### L 500.2500, L100.0100, L700.6800 #### [facility] [address] [place], [address] Chloride [Moles/Vol] 101 mmol/L Normal 98-108 [facility] Comment on above: Performed By: #### L 500.2500, L100.0100, L700.6800 #### [facility] [address] [place], [address] CO2 [Moles/Vol] 24.3 mmol/L Normal 21.0-32.0 [facility] Comment on above: Performed By: #### L 500.2500, L100.0100, L700.6800 #### [facility] Laboratory [address] [place], [address] Creatinine [Mass/Vol] 0.60 mg/dL Low 0.70-1.20 [facility] Comment on above: Performed By: #### L 500.2500, L100.0100, L700.6800 #### [facility] [address] [place], [address] ECRCL 141.63 ml/min Normal 50-250 [facility] Comment on above: Performed By: #### L 500.2500, L100.0100, L700.6800 #### [facility] [address] [place], [address] GAP 11 Normal 5-15 [facility] Comment on above: Performed By: #### L 500.2500, L100.0100, L700.6800 #### [facility] [address] [place], [address] GFR/1.73 sq M.predicted among non-blacks MDRD (S/P/Bld) [Vol rate/Area] 126 mL/min/{1.73_m2} Normal >60 [facility] Comment on above: Result Comment: mL/m in/1.73m2 CKD-EPI Creatinine Equation (2020) Performed By: #### L 500.2500, L100.0100, L700.6800 #### [facility] [address] [place], [address] Globulin (S) [Mass/Vol] 2.4 g/dL Normal 2.2-4.2 [facility] Comment on above: Performed By: #### L 500.2500, L100.0100, L700.6800 #### [facility] Laboratory [address] [place], [address] Glucose [Mass/Vol] 112 mg/dL High 70-99 [facility] Comment on above: Performed By: #### L 500.2500, L100.0100, L700.6800 #### [facility] Laboratory [address] [place], [address] Potassium [Moles/Vol] 3.7 mmol/L Normal 3.3-5.1 [facility] Comment on above: Performed By: #### L 500.2500, L100.0100, L700.6800 #### [facility] Laboratory [address] [place], [address] Sodium [Moles/Vol] 137 mmol/L Normal 133-145 [facility] Comment on above: Performed By: #### L 500.2500, L100.0100, L700.6800 #### [facility] [address] [place], [address] T PROT 6.4 g/dL Normal 5.9-8.4 [facility] Comment on above: Performed By: #### L 500.2500, L100.0100, L700.6800 #### [facility] [address] [place], [address] Urea nitrogen [Mass/Vol] 9 mg/dL Normal 4-19 [facility] Comment on above: Performed By: #### L 500.2500, L100.0100, L700.6800 #### [facility] [address] [place], [address] Emergency Department Summary on 10-14-2024 Emergency Department Summary [facility] Medical Records Department [address] [place] [address] Emergency Department Summary 10/14/24 MR#: [id number] Acct: [id number] Name: JOSE EDWARD Rep #: [id number] : 1995 29 From: Soren Babcock MD PCP: CHERYL Samano Status:REG ER Location: ED HPI History of Present Illness Chief Complaint: Abd Pain Narrative Narrative: 29-year-old female presents with abdominal pain. On 10/11/2024 she drove to [place], [place] to have egg retrieval at a fertility clinic. They did the procedure vaginally and punctured her bladder while retrieving some eggs. They prescribed Keflex and Pyridium. She drove home that same day and developed chest pain, shortness of breath, nausea and abdominal pain and had difficulty emptying her bladder. She was evaluated at [place] ED on the same day 10/[address] scan of chest abdomen pelvis negative for PE. There were enlarged ovaries with numerous cysts and moderate volume ascites compatible with ovarian hyperstimulation syndrome. She also had a [place] placed for urinary retention. She was transferred to [facility] for definitive treatment. She states they [...] ea 02/28/24 Unknown Rx (FreeStyle Lexi 2 [place]) flash glucose sensor (FreeStyle #1 ea 02/28/24 Unknown Rx Lexi 2 Sensor kit) PNV no.151-iron 27 mg-folic 800 1 cap PO DAILY 10/11/24 Unknown Hi story mcg-omega3 260 lp-bpj-ded-fish capsule ( Multi-DHA (with vitamin K)) cabergoline [...] Diabetes Uncle Diabetes Grandmother Diabetes Surgical History Schaller teeth extracted History of hysteroscopy Status post laparoscopy S/P D C (status post dilation and curettage) Hx of lumpectomy History of tonsillectomy and adenoidectomy Social History adopted: No household members: spouse number of children: 0 current occupational status: employed current occupation: [employer] current occupational exposures/hazards: No pets and animals: Yes (Avoid litterbox) pets and animals: (more content not included)... Normal [facility] Eosinophil percentageOrdered By: Soren Babcock on 10-14-2024 Eosinophils/100 WBC (Bld) 1.6 % 0-5 [facility] Epithelial cells.squamous LM Ql (Urine sed)Ordered By: Anabella Malave on 10-14-2024 Epithelial cells.squamous LM.HPF (Urine sed) [#/Area] 25 /[HPF] 5-10 [facility] Erythrocyte distribution wid th (RBC) [Ratio]Ordered By: Soren Babcock on 10-14-2024 Erythrocyte distribution width (RBC) [Entitic vol] 46.8 fL High 35.1-43.9 [facility] Erythrocyte distribution wid th ratioOrdered By: Soren Babcock on 10-14-2024 Erythrocyte distribution width (RBC) [Ratio] 14.4 % 11.6-14.6 [facility] Estimation of creatinine rory aranceOrdered By: Soren Babcock on 10-14-2024 Estimated Creatinine Clearance Calc 141.63 ml/min 50-250 [facility] GFR/1.73 sq M.predicted checo g non-blacks MDRD (S/P/Bld) [Vol rate/Area]Ordered By: Soren Babcock on 10-14-2024 Estimated GFR (MDRD) Non-Af Amer 126 >60 [facility] Comment on above: mL/min/1.73m2 CKD-EP I Creatinine Equation (2020) Glucose Ql (U)Ordered By: Carolyn Malave on 10-14-2024 Urine Glucose (UA) Normal mg/dl Normal [facility] Hematocrit Auto (Bld) [Volum e fraction]Ordered By: Soren Babcock on 10-14-2024 Hematocrit (Bld) [Volume fraction] 32.0 % Low 37-47 [facility] Hemoglobin measurementOrdere d By: Soren Babcock on 10-14-2024 Hemoglobin (Bld) [Mass/Vol] 10.4 g/dL Low 12.0-15.0 [facility] Immature granulocytes/100 WB C Auto (Bld)Ordered By: Soren Babcock on 10-14-2024 Immature granulocytes/100 WBC (Bld) 0.500 % 0.0-0.9 [facility] Comment on above: IG% - Immature Granu locytes (promyelocytes, myelocytes and metamyelocytes) > 1% indicates that a LEFT SHIFT is Present. Ketones Test strip Ql (U)Ord ered By: Anabella Malave on 10-14-2024 Ketones Ql (U) Negative Negative [facility] Laboratory - Chemistry and C hemistry - challengeOrdered By: Soren Babcock on 10-14-2024 AST [Catalytic activity/Vol] 19 U/L <32 [facility] Lipaseon 10-14-2024 Lipase [Catalytic activity/Vol] 29 U/L Normal 13-75 [facility] Comment on above: Result Comment: Cyndi hawk note: LIPASE revised reference range effective 22. New Lipase methodology. Expected to produce lower values than the previous assay method. NEW Reference Range: 13 - 75 U/L Performed By: #### L 500.2500, L100.0100, L700.6800 #### [facility] [address] [place], [address] Lipase measurementOrdered By : Soren Babcock on 10-14-2024 Lipase [Catalytic activity/Vol] 29 U/L 13-75 [facility] Comment on above: Please note:LIPASE r evised reference range effective 22. New Lipase methodology. Expected to produce lower values than the previous assay method. NEW Reference Range: 13 - 75 U/L Lymphocytes Auto (Unsp spec) [#/Vol]Ordered By: Soren Babcock on 10-14-2024 Lymphocytes (Bld) [#/Vol] 2.42 10*3/uL 0.83-4.51 [facility] Lymphocytes/100 WBC Auto (Un sp spec)Ordered By: Soren Babcock on 10-14-2024 Lymphocytes/100 WBC (Bld) 21.9 % 19-41 [facility] MCV (mean corpuscular volume ) determinationOrdered By: Soren Babcock on 10-14-2024 MCV (RBC) [Entitic vol] 92.0 fL 81-99 [facility] Mean corpuscular hemoglobin (MCH) determinationOrdered By: Soren Babcock on 10-14-2024 MCH (RBC) [Entitic mass] 29.9 pg 27.0-32.0 [facility] Mean corpuscular hemoglobin concentration (MCHC) determinationOrdered By: Soren Babcock on 10-14-2024 MCHC (RBC) [Mass/Vol] 32.5 g/dL 32-36 [facility] Mean platelet volume determi nationOrdered By: Soren Babcock on 10-14-2024 Platelet mean volume (Bld) [Entitic vol] 9.2 fL 6.2-12.0 [facility] Microscopic analysis of urin e for red blood cells (RBC)Ordered By: Anabella Malave on 10-14-2024 Urine RBC 10-25 SEEN /hpf 0-5 [facility] Monocyte percentageOrdered B y: Soren Babcock on 10-14-2024 Monocytes/100 WBC (Bld) 6.5 % 0-10 [facility] Mucus LM Ql (Urine sed)Order ed By: Anabella Malave on 10-14-2024 Mucus Ql (Urine sed) 0 SEEN /hpf [facility] Neutrophil percentageOrdered By: Soren Babcock on 10-14-2024 Neutrophils/100 WBC (Bld) 69.3 % 47-70 [facility] Nitrite Test strip Ql (U)Ord ered By: Anabella Malave on 10-14-2024 Nitrite Ql (U) Positive High Negative [facility] Nucleated red blood cell per centageOrdered By: Soren Babcock on 10-14-2024 Nucleated RBC/100 WBC (Bld) [Ratio] 0 % 0-5 [facility] Platelet countOrdered By: Ayan Babcock on 10-14-2024 Platelets (Bld) [#/Vol] 237 10*3/uL 150-450 [facility] Potassium (Unsp spec) [Mass/ Vol]Ordered By: Soren Babcock on 10-14-2024 Potassium [Moles/Vol] 3.7 mmol/L 3.3-5.1 [facility] ,Serum,hCG Quali.on 10-14-2024 HCG, SERUM QUAL Negative Normal [facility] Comment on above: Performed By: #### L 500.2500, L100.0100, L700.6800 #### [facility] Laboratory [address] [place], [address] Protein Test strip Ql (U)Ord ered By: Anabella Malave on 10-14-2024 Protein Ql (U) 30 mg/dl High Negative [facility] RBC Auto (Bld) [#/Vol]Ordere d By: Soren Babcock on 10-14-2024 RBC (Bld) [#/Vol] 3.48 10*6/uL Low 4.2-5.4 [facility] Serum creatinine measurement (mass/volume)Ordered By: Soren Babcock on 10-14-2024 Creatinine [Mass/Vol] 0.60 mg/dL Low 0.70-1.20 [facility] Serum globulin measurementOr dered By: Soren Babcock on 10-14-2024 Globulin (S) [Mass/Vol] 2.4 g/dL 2.2-4.2 [facility] Serum glucose measurement (m ass/volume)Ordered By: Soren Babcock on 10-14-2024 Glucose [Mass/Vol] 112 mg/dL High 70-99 [facility] Serum or plasma alanine eric otransferase (ALT) measurementOrdered By: Soren Babcock on 10-14-2024 ALT [Catalytic activity/Vol] 14 U/L <35 [facility] Serum or plasma albumin shannon urement (mass/volume)Ordered By: Soren Babcock on 10-14-2024 Albumin [Mass/Vol] 4.0 g/dL 3.5-5.0 [facility] Serum or plasma albumin/glob ulin mass ratioOrdered By: Soren Babcock on 10-14-2024 Albumin/Globulin [Mass ratio] 1.7 {ratio} 0.9-2.4 [facility] Serum or plasma alkaline meredith sphatase measurementOrdered By: Soren Babcock on 10-14-2024 ALP [Catalytic activity/Vol] 65 U/L 35-104 [facility] Serum or plasma calcium shannon urement (mass/volume)Ordered By: Soren Babcock on 10-14-2024 Calcium [Mass/Vol] 8.8 mg/dL 7.6-11.0 [facility] Serum or plasma urea nitroge n measurement (mass/volume)Ordered By: Soren Babcock on 10-14-2024 Urea nitrogen [Mass/Vol] 9 mg/dL 4-19 [facility] Sodium levelOrdered By: Soren Babcock on 10-14-2024 Sodium [Moles/Vol] 137 mmol/L 133-145 [facility] Total proteinOrdered By: Max Babcock on 10-14-2024 Protein [Mass/Vol] 6.4 g/dL 5.9-8.4 [facility] Urinalysis, Completeon 10-14 AMORPHOUS 1+ PHOS Normal [facility] Comment on above: Order Comment: COLOR OF URINE MAY AFFECT DIPSTICK RESULTS.ELECTRONIC TECH TO SPECIFY Performed By: #### L 500.2500, L100.0100, L700.6800 #### [facility] Laboratory [address] [place], [place], [address] RBC 10-25 SEEN Normal 0-5 [facility] Comment on above: Order Comment: COLOR OF URINE MAY AFFECT DIPSTICK RESULTS.ELECTRONIC TECH TO SPECIFY Performed By: #### L 500.2500, L100.0100, L700.6800 #### [facility] Laboratory [address] [place], [address] EPI,SQUAMOUS 25-50 SEEN Normal 5-10 [facility] Comment on above: Order Comment: COLOR OF URINE MAY AFFECT DIPSTICK RESULTS.ELECTRONIC TECH TO SPECIFY Performed By: #### L 500.2500, L100.0100, L700.6800 #### [facility] Laboratory [address] [place], [address] WBC 0-5 SEEN Normal 0-5 [facility] Comment on above: Order Comment: COLOR OF URINE MAY AFFECT DIPSTICK RESULTS.ELECTRONIC TECH TO SPECIFY Performed By: #### L 500.2500, L100.0100, L700.6800 #### [facility] [address] [place], [address] BACTERIA 0 SEEN Normal None Seen [facility] Comment on above: Order Comment: COLOR OF URINE MAY AFFECT DIPSTICK RESULTS.ELECTRONIC TECH TO SPECIFY Performed By: #### L 500.2500, L100.0100, L700.6800 #### [facility] [address] [place], [address] Mucus Ql (Urine sed) 0 SEEN Normal [facility] Comment on above: Order Comment: COLOR OF URINE MAY AFFECT DIPSTICK RESULTS.ELECTRONIC TECH TO SPECIFY Performed By: #### L 500.2500, L100.0100, L700.6800 #### [facility] [address] [place], [address] Urine blood detectionOrdered By: Anabella Malave on 10-14-2024 Urine Occult Blood 150 /ul High Negative [facility] Urine clarityOrdered By: Sapna Malave on 10-14-2024 Clarity (U) Sl. Cloudy Clear [facility] Urine color determinationOrd ered By: Anabella Malave on 10-14-2024 Color (U) Rita Yellow [facility] Urine leukocyte esterase det ection by dipstickOrdered By: Anabella Malave on 10-14-2024 Leukocyte esterase Test strip Ql (U) 25 /ul High Negative [facility] Urine pHOrdered By: Anabella watters on 10-14-2024 pH (U) 7.0 [pH] 5.0 - 8.0 [facility] Urine sediment bacteria coun t by microscopy (number/high power field)Ordered By: Anabella Malave on 10-14-2024 Bacteria LM.HPF (Urine sed) [#/Area] 0 /[HPF] None Seen [facility] Urine specific gravity measu rementOrdered By: Anabella Ananda on 10-14-2024 Specific gravity (U) [Rel density] 1.015 1.002-1.030 [facility] Urobilinogen Ql (U)Ordered B y: Anabella Ananda on 10-14-2024 Urobilinogen (U) [Mass/Vol] 8 mg/dL High Normal [facility] White blood cell (WBC) count Ordered By: Soren Babcock on 10-14-2024 WBC (Bld) [#/Vol] 11.1 10*3/uL High 4.4-11.0 [facility] White blood cell countOrdere d By: Anabella Malave on 10-14-2024 Urine WBC 0-5 SEEN /hpf 0-5 [facility] 30on 10-13-2024 30 Problem: Pain - Adul [...] maintained or improved Outcome: Progressing Normal [facility] CBC (HEMOGRAM)on 10-13-2024 Erythrocyte distribution width (RBC) [Ratio] 13.9 % Normal 11.5-15.0 [facility] Comment on above: Performed By: #### L [id number] ####Instructional Systems Designer: GYPSY DAY ([id number])[address] Hematocrit (Bld) [Volume fraction] 28.9 % Low 35.0-47.0 [facility] Comment on above: Performed By: #### L [id number] ####Instructional Systems Designer: GYPSY DAY ([id number])[address] Hemoglobin (Bld) [Mass/Vol] 9.3 g/dL Low 11.7-16.0 [facility] Comment on above: Performed By: #### L [id number] ####Instructional Systems Designer: GYPSY DAY ([id number])[facility])[address] [place] [address] MCH (RBC) [Entitic mass] 29.5 pg Normal 26.0-34.0 [facility] Comment on above: Performed By: #### L [id number] ####Instructional Systems Designer: GYPSY DAY ([id number])[facility])[address] [place] [address] MCHC 32.2 % Normal 30.5-36.0 [facility] Comment on above: Performed By: #### L [id number] ####Instructional Systems Designer: GYPSY DAY ([id number])[facility])[address] [place] [address] MCV (RBC) [Entitic vol] 91.7 fL Normal 77.0-99.0 [facility] Comment on above: Performed By: #### L [id number] ####Instructional Systems Designer: GYPSY DAY ([id number])[facility])[address] [place] [address] Platelet mean volume (Bld) [Entitic vol] 9.6 fL Normal 9.0-12.7 [facility] Comment on above: Performed By: #### L [id number] ####Instructional Systems Designer: GYPSY DAY ([id number])[facility])[address] [place] [address] Platelets (Bld) [#/Vol] 227 10*3/uL Normal 140-440 [facility] Comment on above: Performed By: #### L [id number] ####Instructional Systems Designer: GYPSY DAY ([id number])[facility])[address] [place] [address] RBC (Bld) [#/Vol] 3.15 10*6/uL Low 3.80-5.20 [facility] Comment on above: Performed By: #### L [id number] ####Instructional Systems Designer: GYPSY DAY ([id number])[facility] ([facility])[address] [place] [address] WBC (Bld) [#/Vol] 12.4 10*3/uL High 3.6-10.7 [facility] Comment on above: Performed By: #### L [id number] ####Instructional Systems Designer: GYPSY DAY ([id number])[facility] ([facility])[address] [place] [address] CBC panel Auto (Bld)on 10-13 Erythrocyte distribution width (RBC) [Ratio] 13.9 % 11.5 - 15.0 % [facility] Hematocrit (Bld) [Volume fraction] 28.9 % Low 35.0 - 47.0 % [facility] Hemoglobin (Bld) [Mass/Vol] 9.3 g/dL Low 11.7 - 16.0 g/dL [facility] Interpretation and review of laboratory results Abnormal [facility] MCH (RBC) [Entitic mass] 29.5 pg 26.0 - 34.[address] [facility] MCHC (RBC) [Mass/Vol] 32.2 % 30.5 - 36.0 % [facility] MCV (RBC) [Entitic vol] 91.7 fL 77.0 - 99.[address] [facility] Platelet mean volume (Bld) [Entitic vol] 9.6 fL 9.0 - 12.[address] [facility] Platelets (Bld) [#/Vol] 227 10*3/uL 140 - 440 10*3/uL [facility] RBC (Bld) [#/Vol] 3.15 10*6/uL Low 3.80 - 5.2 0 10*6/uL [facility] WBC (Bld) [#/Vol] 12.4 10*3/uL High 3.6 - 10.7 10*3/uL [facility] COMPREHENSIVE METABOLIC PANE Mahendra 10-13-2024 Albumin [Mass/Vol] 2.8 g/dL Low 3.5-5.0 [facility] Comment on above: Performed By: #### L [id number] ####Instructional Systems Designer: GYPSY DAY ([id number])[facility] ALP [Catalytic activity/Vol] 49 U/L Normal 40-150 [facility] Comment on above: Performed By: #### L [id number] ####Instructional Systems Designer: GYPSY DAY ([id number])[facility] ([facility])[address] [place] [address] ALT [Catalytic activity/Vol] 9 U/L Normal <30 [facility] Comment on above: Performed By: #### L [id number] ####Instructional Systems Designer: GYPSY DAY ([id number])[facility] ([facility])[address] [place] [address] Anion gap [Moles/Vol] 4 mmol/L Normal 3-13 [facility] Comment on above: Performed By: #### L [id number] ####Instructional Systems Designer: GYPSY DAY ([id number])[facility] ([facility])[address] [place] [address] AST [Catalytic activity/Vol] 14 U/L Normal <34 [facility] Comment on above: Performed By: #### L [id number] ####Instructional Systems Designer: GYPSY DAY ([id number])[facility] ([facility])[address] [place] [address] Bilirubin [Mass/Vol] 0.2 mg/dL Normal <1.2 [facility] Comment on above: Performed By: #### L [id number] ####Instructional Systems Designer: GYPSY DAY ([id number])[facility] ([facility])[address] [place] [address] Calcium [Mass/Vol] 7.9 mg/dL Low 8.4-10.2 [facility] Comment on above: Performed By: #### L [id number] ####Instructional Systems Designer: GYPSY DAY ([id number])[facility])[address] [place] [address] Chloride [Moles/Vol] 110 mmol/L High 98-107 [facility] Comment on above: Performed By: #### L [id number] ####Instructional Systems Designer: GYPSY DAY ([id number])[facility])[address] [place] [address] [place] CO2 [Moles/Vol] 24 mmol/L Normal 22-29 [facility] Comment on above: Performed By: #### L [id number] ####Instructional Systems Designer: GYPSY DAY ([id number])[facility] ([facility])[address] [place] [address] Creatinine [Mass/Vol] 0.60 mg/dL Normal 0.57-1.11 [facility] Comment on above: Performed By: #### L [id number] ####Instructional Systems Designer: GYPSY DAY ([id number])[facility])[address] [place] [address] GLOMERULAR FILTRATION RATE ML/MIN/1.73 SQ M.PREDICTED >90.0 Normal >60.0 [facility] Comment on above: Result Comment: Calc ulation based on the Chronic Kidney Disease Epidemiology Collaboration (CKD-EPI) equation refit without adjustment for race Performed By: #### L [id number] ####Instructional Systems Designer: GYPSY DAY ([id number])[facility] ([facility])[address] [place] [address] Glucose [Mass/Vol] 96 mg/dL Normal 74-100 [facility] Comment on above: Performed By: #### L [id number] ####Instructional Systems Designer: GYPSY DAY ([id number])[facility])[address] [place] [address] Potassium [Moles/Vol] 3.8 mmol/L Normal 3.5-5.1 [facility] Comment on above: Result Comment: [facility] potassium values may be up to 0.5 mmol/L lower than serum values. Performed By: #### L [id number] ####Instructional Systems Designer: GYPSY DAY ([id number])[facility])[address] [place] [address] Protein [Mass/Vol] 4.9 g/dL Low 6.4-8.3 [facility] Comment on above: Performed By: #### L [id number] ####Instructional Systems Designer: GYPSY [id number])[facility] ([facility])[address] [place] [address] Sodium [Moles/Vol] 138 mmol/L Normal 136-145 [facility] Comment on above: Performed By: #### L [id number] ####Instructional Systems Designer: GYPSY DAY ([id number])[facility] [place] [address] Urea nitrogen [Mass/Vol] 9 mg/dL Normal 8-21 [facility] Comment on above: Performed By: #### L [id number] ####Instructional Systems Designer: GYPSY DAY ([id number])[facility] [place] [address] Comprehensive metabolic 1998 panelon 10-13-2024 Albumin [Mass/Vol] 2.8 g/dL Low 3.5 - 5.0 g/dL [facility] ALP [Catalytic activity/Vol] 49 U/L 40 - 150 U/L [facility] ALT [Catalytic activity/Vol] 9 U/L NINF - 30 U/L [facility] Anion gap [Moles/Vol] 4 mmol/L 3 - 13 mmol/L [facility] AST [Catalytic activity/[facility]] 14 [facility] Bilirubin [Mass/Vol] 0.2 mg/dL NINF - 1.2 mg/dL [facility] Calcium [Mass/Vol] 7.9 mg/dL Low 8.4 - 10. 2 mg/dL [facility] Chloride [Moles/Vol] 110 mmol/L High 98 - 10 7 mmol/L [facility] CO2 [Moles/Vol] 24 mmol/L 22 - 29 mmol/L [facility] Creatinine [Mass/Vol] 0.6 mg/dL 0.57 - 1.11 mg/dL [facility] GFR/1.73 sq M.predicted (S/P/Bld) [Vol rate/Area] - PINF [facility] Comment on above: Calculation based on the Chronic Kidney Disease Epidemiology Collaboration (CKD-EPI) equation refit without adjustment for race Glucose [Mass/Vol] 96 mg/dL 74 - 100 mg/dL [facility] Interpretation and review of laboratory results Abnormal [facility] Potassium [Moles/Vol] 3.8 mmol/L 3.5 - 5.1 mmol/L [facility] Comment on above: Plasma potassium arsen ues may be up to 0.5 mmol/L lower than serum values. Protein [Mass/Vol] 4.9 g/dL Low 6.4 - 8.3 g/dL [facility] Sodium [Moles/Vol] 138 mmol/L 136 - 145 mmol/L [facility] Urea nitrogen [Mass/Vol] 9 mg/dL 8 - 21 mg/dL [facility] Guidance for paracentesis of Peritoneumon 10-13-2024 Insufficient fluid f or safe paracentesis. Report Dictated on Electronically Signed By: Yola Montiel MD Electronically Signed Date/Time: 10/13/2024 3:24 PM EDT [facility] Patient Name: JOSE GAMEZ : 1995 [...] The procedure was terminated at this time. [facility] Keely Montiel MD - 10/13/2024 Patient Name: [...] Electronically Signed Date/Time: 10/13/2024 3:24 PM EDT [facility] Radiology Study observation (narrative) [facility] Guidance for paracentesis of PeritoneumOrdered By: Keely Montiel on 10-13-2024 [facility] [employer] Work Phone: Progress Noteon 10-13-2024 Progress Note ---- -------- Attestation signed by Gypsy Pelayo MD at 10/13/2024 8:34 AM Hospital Care (Independent): I independently saw and evaluated the patient. I agree with the findings and plan of care as documented in the resident's note. Stable labs and patient without complaints except for bloating. Abd mildly, softly distended. Awaiting paracentesis today. 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 Normal [facility] US GUIDED ABDOMINAL PARACENT ESISon 10-13-2024 [...] Date/Time: 10/13/2024 3:24 PM EDT Normal [facility] 30on 10-12-2024 30 Problem: Pain - [...] maintained or improved Outcome: Progressing Normal [facility] CBC (HEMOGRAM)on 10-12-2024 Erythrocyte distribution width (RBC) [Ratio] 13.2 % Normal 11.5-15.0 [facility] Comment on above: Performed By: #### L [id number] ####Instructional Systems Designer: GYPSY [id number])[address] Hematocrit (Bld) [Volume fraction] 30.9 % Low 35.0-47.0 [facility] Comment on above: Performed By: #### L [id number] ####Instructional Systems Designer: GYPSY [id number])[address] Hemoglobin (Bld) [Mass/Vol] 10.1 g/dL Low 11.7-16.0 [facility] Comment on above: Performed By: #### L [id number] ####Instructional Systems Designer: GYPSY DAY ([id number])[facility] ([facility])[address] [place] [address] IPF 2 Normal [facility] Comment on above: Performed By: #### L [id number] ####Instructional Systems Designer: GYPSY DAY ([id number])[facility] ([facility])[address] [place] [address] MCH (RBC) [Entitic mass] 29.0 pg Normal 26.0-34.0 [facility] Comment on above: Performed By: #### L [id number] ####Instructional Systems Designer: GYPSY DAY ([id number])[facility] ([facility])[address] [place] [address] MCHC 32.7 % Normal 30.5-36.0 [facility] Comment on above: Performed By: #### L [id number] ####Instructional Systems Designer: GYPSY DAY ([id number])[facility] ([facility])[address] [place] [address] MCV (RBC) [Entitic vol] 88.8 fL Normal 77.0-99.0 [facility] Comment on above: Performed By: #### L [id number] ####Instructional Systems Designer: GYPSY DAY ([id number])[facility] ([facility])[address] [place] [address] Platelet mean volume (Bld) [Entitic vol] 9.5 fL Normal 9.0-12.7 [facility] Comment on above: Performed By: #### L [id number] ####Instructional Systems Designer: GYPSY DAY ([id number])[facility] ([facility])[address] [place] [address] Platelets (Bld) [#/Vol] 292 10*3/uL Normal 140-440 [facility] Comment on above: Performed By: #### L [id number] ####Instructional Systems Designer: GYPSY DAY ([id number])[facility] ([facility])[address] [place] [address] RBC (Bld) [#/Vol] 3.48 10*6/uL Low 3.80-5.20 [facility] Comment on above: Performed By: #### L [id number] ####Instructional Systems Designer: GYPSY DAY ([id number])[facility] ([facility])[address] [place] [address] WBC (Bld) [#/Vol] 19.6 10*3/uL High 3.6-10.7 [facility] Comment on above: Performed By: #### L [id number] ####Instructional Systems Designer: GYPSY DAY ([id number])[facility] [place] [address] CBC panel Auto (Bld)on 10-12 Erythrocyte distribution width (RBC) [Ratio] 13.2 % 11.5 - 15.0 % [facility] Hematocrit (Bld) [Volume fraction] 30.9 % Low 35.0 - 47.0 % [facility] Hemoglobin (Bld) [Mass/Vol] 10.1 g/dL Low 11.7 - 16.0 g/dL [facility] Interpretation and review of laboratory results Abnormal [facility] IPF [address] [facility] MCH (RBC) [Entitic mass] 29 pg 26.0 - 34.[address] [facility] MCHC (RBC) [Mass/Vol] 32.7 % 30.5 - 36.0 % [facility] MCV (RBC) [Entitic vol] 88.8 fL 77.0 - 99.[address] [facility] Platelet mean volume (Bld) [Entitic vol] 9.5 fL 9.0 - 12.[address] [facility] Platelets (Bld) [#/Vol] 292 10*3/uL 140 - 440 10*3/uL [facility] RBC (Bld) [#/Vol] 3.48 10*6/uL Low 3.80 - 5.2 0 10*6/uL [facility] WBC (Bld) [#/Vol] 19.6 10*3/uL High 3.6 - 10.7 10*3/uL [facility] COMPREHENSIVE METABOLIC PANE Mahendra 10-12-2024 Albumin [Mass/Vol] 3.2 g/dL Low 3.5-5.0 [facility] Comment on above: Performed By: #### L [id number] #### Instructional Systems Designer: GYPSY DAY ([id number]) [facility] [address] [place] [address] ALP [Catalytic activity/Vol] 54 U/L Normal 40-150 [facility] Comment on above: Performed By: #### L [id number] #### Instructional Systems Designer: GYPSY DAY ([id number]) [facility] [address] [place] [address] [place] ALT [Catalytic activity/Vol] 11 U/L Normal <30 [facility] Comment on above: Performed By: #### L [id number] #### Instructional Systems Designer: GYPSY DAY ([id number]) [facility] ([facility]) [address] [place] [address] Anion gap [Moles/Vol] 5 mmol/L Normal 3-13 [facility] Comment on above: Performed By: #### L [id number] #### Instructional Systems Designer: GYPSY DAY ([id number]) [facility] ([facility]) [address] [place] [address] AST [Catalytic activity/Vol] 16 U/L Normal <34 [facility] Comment on above: Performed By: #### L [id number] #### Instructional Systems Designer: GYPSY DAY ([id number]) [facility] ([facility]) [address] [place] [address] Bilirubin [Mass/Vol] 0.2 mg/dL Normal <1.2 [facility] Comment on above: Performed By: #### L [id number] #### Instructional Systems Designer: GYPSY DAY ([id number]) [facility] ([facility]) [address] [place] [address] Calcium [Mass/Vol] 8.2 mg/dL Low 8.4-10.2 [facility] Comment on above: Performed By: #### L [id number] #### Instructional Systems Designer: GYPSY DAY ([id number]) [facility] ([facility]) [address] [place] [address] [place] Chloride [Moles/Vol] 104 mmol/L Normal 98-107 [facility] Comment on above: Performed By: #### L [id number] #### Instructional Systems Designer: GYPSY DAY ([id number]) [facility]) [address] [place] [address] CO2 [Moles/Vol] 24 mmol/L Normal 22-29 [facility] Comment on above: Performed By: #### L [id number] #### Instructional Systems Designer: GYPSY DAY ([id number]) [facility]) [address] [place] [address] Creatinine [Mass/Vol] 0.56 mg/dL Low 0.57-1.11 [facility] Comment on above: Performed By: #### L [id number] #### Instructional Systems Designer: GYPSY DAY ([id number]) [facility]) [address] [place] [address] GLOMERULAR FILTRATION RATE ML/MIN/1.73 SQ M.PREDICTED >90.0 Normal >60.0 [facility] Comment on above: Result Comment: Calc ulation based on the Chronic Kidney Disease Epidemiology Collaboration (CKD-EPI) equation refit without adjustment for race Performed By: #### L [id number] #### Instructional Systems Designer: GYPSY DAY ([id number]) [facility]) [address] [place] [address] Glucose [Mass/Vol] 109 mg/dL High 74-100 [facility] Comment on above: Performed By: #### L [id number] #### Instructional Systems Designer: GYPSY DAY ([id number]) [facility]) [address] [place] [address] Potassium [Moles/Vol] 3.6 mmol/L Normal 3.5-5.1 [facility] Comment on above: Result Comment: [facility] potassium values may be up to 0.5 mmol/L lower than serum values. Performed By: #### L [id number] #### Instructional Systems Designer: GYPSY DAY ([id number]) [facility]) [address] [place] [address] Protein [Mass/Vol] 5.4 g/dL Low 6.4-8.3 [facility] Comment on above: Performed By: #### L [id number] #### Instructional Systems Designer: GYPSY DAY ([id number]) [facility] ([facility]) [address] [place] [address] Sodium [Moles/Vol] 133 mmol/L Low 136-145 [facility] Comment on above: Performed By: #### L [id number] #### Instructional Systems Designer: GYPSY DAY ([id number]) [facility] ([facility]) [address] [place] [address] Urea nitrogen [Mass/Vol] 9 mg/dL Normal 8-21 [facility] Comment on above: Performed By: #### L [id number] #### Instructional Systems Designer: GYPSY DAY ([id number]) [facility] ([facility]) [address] [place] [address] Comprehensive metabolic 1998 panelon 10-12-2024 Albumin [Mass/Vol] 3.2 g/dL Low 3.5 - 5.0 g/dL [facility] ALP [Catalytic activity/Vol] 54 U/L 40 - 150 U/L [facility] ALT [Catalytic activity/Vol] 11 U[facility]L [facility] Anion gap [Moles/Vol] 5 mmol/L 3 - 13 mmol/L [facility] AST [Catalytic activity/Vol] 16 U/L [facility] U/L [facility] Bilirubin [Mass/Vol] 0.2 mg/dL NINF - 1.2 mg/dL [facility] Calcium [Mass/Vol] 8.2 mg/dL Low 8.4 - 10. 2 mg/dL [facility] Chloride [Moles/Vol] 104 mmol/L 98 - 10 7 mmol/L [facility] CO2 [Moles/Vol] 24 mmol/L 22 - 29 mmol/L [facility] Creatinine [Mass/Vol] 0.56 mg/dL Low 0.57 - 1.11 mg/dL [facility] GFR/1.73 sq M.predicted (S/P/Bld) [Vol rate/Area] - PINF [facility] Comment on above: Calculation based on the Chronic Kidney Disease Epidemiology Collaboration (CKD-EPI) equation refit without adjustment for race Glucose [Mass/Vol] 109 mg/dL High 74 - 100 mg/dL [facility] Interpretation and review of laboratory results Abnormal [facility] Potassium [Moles/Vol] 3.6 mmol/L 3.5 - 5.1 mmol/L [facility] Comment on above: Plasma potassium arsen ues may be up to 0.5 mmol/L lower than serum values. Protein [Mass/Vol] 5.4 g/dL Low 6.4 - 8.3 g/dL [facility] Sodium [Moles/Vol] 133 mmol/L Low 136 - 145 mmol/L [facility] Urea nitrogen [Mass/Vol] 9 mg/dL 8 - 21 mg/dL [facility] Laboratory - Coagulationon 0 10-12-2024 aPTT Coag (PPP) [Time] 26.3 s 20.0 - 30.[address] [facility] INR Coag (PPP) [Relative time] 0.9 {INR} 0.9 - 1.[address] [facility] Comment on above: Recommended Anticoag ulant [...] [Time] 10.1 s 9.0 - 12.0 s [facility] No Panel Informationon 10-12 Interpretation and review of laboratory results Normal [facility] PROTIME AND APTTon aPTT Coag (Bld) [Time] 26.3 s Normal 20.0-30.5 [facility] Comment on above: Performed By: #### L [id number] ####Instructional Systems Designer: GYPSY DAY ([id number])[facility] ([address] INR Coag (PPP) [Relative time] 0.9 {INR} Normal 0.9-1.1 [facility] Comment on above: Result Comment: Dwight [...] prevent Myocardial Infarction Performed By: #### L [id number] ####Instructional Systems Designer: GYPSY DAY ([id number])[facility] ([facility])[address] [place] [address] PT Coag (PPP) [Time] 10.1 s Normal 9.0-12.0 [facility] Comment on above: Performed By: #### L [id number] ####Instructional Systems Designer: GYPSY DAY ([id number])[facility] ([facility])[address] [place] [address] Absolute neutrophil countOrd ered By: Fern Marroquin on 10-11-2024 Neutrophils (Bld) [#/Vol] 19.6 10*3/uL High 2.0-7.7 [facility] Anion gap in Serum or Plasma Ordered By: Fern Marroquin on 10-11-2024 Anion gap [Moles/Vol] 12 mmol/L - [facility] BUN/creatinine ratioOrdered By: Fern Marorquin on 10-11-2024 Urea nitrogen/Creatinine [Mass ratio] 17.7 mg/mg 10- [facility] Bacteria LM.HPF (Urine sed) [#/Area]Ordered By: Fern Marroquin on 10-11-2024 Urine Bacteria RARE /hpf None Seen [facility] Basic Metabolic Profile (BMP )on 10-11-2024 BUN/CRE 17.7 RATIO Normal - [facility] Comment on above: Performed By: #### L 500.2500, L100.0100, L700.6800 #### [facility] Laboratory [address] [place], [address] Calcium [Mass/Vol] 9.1 mg/dL Normal 7.6-11.0 [facility] Comment on above: Performed By: #### L 500.2500, L100.0100, L700.6800 #### [facility] Laboratory [address] [place], [address] Chloride [Moles/Vol] 102 mmol/L Normal 98-108 [facility] Comment on above: Performed By: #### L 500.2500, L100.0100, L700.6800 #### [facility] Laboratory [address] [place], [address] CO2 [Moles/Vol] 21.9 mmol/L Normal 21.0-32.0 [facility] Comment on above: Performed By: #### L 500.2500, L100.0100, L700.6800 #### [facility] Laboratory [address] [place], [address] Creatinine [Mass/Vol] 0.58 mg/dL Low 0.70-1.20 [facility] Comment on above: Performed By: #### L 500.2500, L100.0100, L700.6800 #### [facility] Laboratory [address] [place], [address] ECRCL 147.18 ml/min Normal 50-250 [facility] Comment on above: Performed By: #### L 500.2500, L100.0100, L700.6800 #### [facility] Laboratory [address] [place], [address] GAP 12 Normal 5-15 [facility] Comment on above: Performed By: #### L 500.2500, L100.0100, L700.6800 #### [facility] Laboratory [address] [place], [address] GFR/1.73 sq M.predicted among non-blacks MDRD (S/P/Bld) [Vol rate/Area] 127 mL/min/{1.73_m2} Normal >60 [facility] Comment on above: Result Comment: mL/m in/1.73m2 CKD-EPI Creatinine Equation (2020) Performed By: #### L 500.2500, L100.0100, L700.6800 #### [facility] Laboratory [address] [place], [address] Glucose [Mass/Vol] 139 mg/dL High 70-99 [facility] Comment on above: Performed By: #### L 500.2500, L100.0100, L700.6800 #### [facility] Laboratory [address] [place], [address] Potassium [Moles/Vol] 4.1 mmol/L Normal 3.3-5.1 [facility] Comment on above: Performed By: #### L 500.2500, L100.0100, L700.6800 #### [facility] Laboratory [address] [place], [address] Sodium [Moles/Vol] 136 mmol/L Normal 133-145 [facility] Comment on above: Performed By: #### L 500.2500, L100.0100, L700.6800 #### [facility] Laboratory [address] [place], [address] Urea nitrogen [Mass/Vol] 10 mg/dL Normal 4-19 [facility] Comment on above: Performed By: #### L 500.2500, L100.0100, L700.6800 #### [facility] Laboratory [address] [place], [address] Basophil percentageOrdered B y: Fern Marroquin on 10-11-2024 Basophils/100 WBC (Bld) 0.1 % 0-1 [facility] Beta HCG ( test) Ql Ordered By: Fern Marroquin on 10-11-2024 Serum Test, Qualitative Negative [facility] Bilirubin Test strip Ql (U)O rdered By: Fern Marroquin on 10-11-2024 Bilirubin Ql (U) 1 mg/dL High Negative [facility] Comment on above: COLOR OF URINE MAY A FFECT DIPSTICK RESULTS. CBC W/Diff, Automatedon 04- Absolute Lymph 1.84 X10 3/uL Normal 0.83-4.51 [facility] Comment on above: Performed By: #### L 500.2500, L100.0100, L700.6800 #### [facility] Laboratory [address] [place], [address] Absolute Neut 19.6 X10 3/uL High 2.0-7.7 [facility] Comment on above: Performed By: #### L 500.2500, L100.0100, L700.6800 #### [facility] Laboratory [address] [place], [address] Basophils/100 WBC (Bld) 0.1 % Normal 0-1 [facility] Comment on above: Performed By: #### L 500.2500, L100.0100, L700.6800 #### [facility] Laboratory [address] [place], [address] Eosinophils/100 WBC (Bld) 0.0 % Normal 0-5 [facility] Comment on above: Performed By: #### L 500.2500, L100.0100, L700.6800 #### [facility] Laboratory [address] [place], [address] Erythrocyte distribution width (RBC) [Ratio] 12.9 % Normal 11.6-14.6 [facility] Comment on above: Performed By: #### L 500.2500, L100.0100, L700.6800 #### [facility] Laboratory [address] [place], [address] Hematocrit (Bld) [Volume fraction] 34.0 % Low 37-47 [facility] Comment on above: Performed By: #### L 500.2500, L100.0100, L700.6800 #### [facility] Laboratory [address] [place], [address] Hemoglobin (Bld) [Mass/Vol] 11.6 g/dL Low 12.0-15.0 [facility] Comment on above: Performed By: #### L 500.2500, L100.0100, L700.6800 #### [facility] Laboratory [address] [place], [address] IG% 0.600 Normal 0.0-0.9 [facility] Comment on above: Result Comment: IG% - Immature Granulocytes (promyelocytes, myelocytes and metamyelocytes) > 1% indicates that a LEFT SHIFT is Present. Performed By: #### L 500.2500, L100.0100, L700.6800 #### [facility] Laboratory [address] [place], [address] Lymphocytes/100 WBC (Bld) 8.2 % Low 19-41 [facility] Comment on above: Performed By: #### L 500.2500, L100.0100, L700.6800 #### [facility] Laboratory [address] [place], [address] MCH (RBC) [Entitic mass] 30.1 pg Normal 27.0-32.0 [facility] Comment on above: Performed By: #### L 500.2500, L100.0100, L700.6800 #### [facility] Laboratory [address] [place], [address] MCHC (RBC) [Mass/Vol] 34.1 g/dL Normal 32-36 [facility] Comment on above: Performed By: #### L 500.2500, L100.0100, L700.6800 #### [facility] Laboratory [address] [place], [address] MCV (RBC) [Entitic vol] 88.3 fL Normal 81-99 [facility] Comment on above: Performed By: #### L 500.2500, L100.0100, L700.6800 #### [facility] Laboratory [address] [place], [address] Monocytes/100 WBC (Bld) 4.0 % Normal 0-10 [facility] Comment on above: Performed By: #### L 500.2500, L100.0100, L700.6800 #### [facility] Laboratory [address] [place], [address] Neutrophils/100 WBC (Bld) 87.1 % High 47-70 [facility] Comment on above: Performed By: #### L 500.2500, L100.0100, L700.6800 #### [facility] Laboratory [address] [place], [address] Nucleated RBC (Bld) [#/Vol] 0 10*3/uL Normal 0-5 [facility] Comment on above: Performed By: #### L 500.2500, L100.0100, L700.6800 #### [facility] Laboratory [address] [place], [address] Platelet mean volume (Bld) [Entitic vol] 9.2 fL Normal 6.2-12.0 [facility] Comment on above: Performed By: #### L 500.2500, L100.0100, L700.6800 #### [facility] Laboratory [address] [place], [address] Platelets (Bld) [#/Vol] 321 10*3/uL Normal 150-450 [facility] Comment on above: Performed By: #### L 500.2500, L100.0100, L700.6800 #### [facility] Laboratory [address] [place], [address] RBC (Bld) [#/Vol] 3.85 10*6/uL Low 4.2-5.4 [facility] Comment on above: Performed By: #### L 500.2500, L100.0100, L700.6800 #### [facility] Laboratory [address] [place], [address] RDW SD 41.7 fl Normal 35.1-43.9 [facility] Comment on above: Performed By: #### L 500.2500, L100.0100, L700.6800 #### [facility] Laboratory [address] [place], [address] WBC (Bld) [#/Vol] 22.5 10*3/uL High 4.4-11.0 [facility] Comment on above: Performed By: #### L 500.2500, L100.0100, L700.6800 #### [facility] Laboratory [address] [place], [address] CTA Chst, Abd, Pel W and/or WOon 10-11-2024 CTA Chst, Abd, Pel W and/or WO [facility] Services [address] [place] [address] CTA Chst, Abd, Pel W and/or WO MR#: [id number] Acct: [id number] Name: JOSE EDWARD Rep #: [id number] : 1995 F 29 From: Daisha Hutchins nd, MD PCP: CHERYL Samano Status: [facility] ER Study: CTA Chst, Abd, Pel W and/or WO Date of Exam: 0 10/11/24 Exam# [id number] Ordering Dr: Fern Marroquin DO PROCEDURE: CTA [...] compatible with ovarian hyperstimulation syndrome. Reading Location: [facility] CC: Dr. Fern Marroquin DO; CHERYL Samano Follow Up Specialist: Signed Normal [facility] Carbon dioxide, total [Moles /volume] in Central venous bloodOrdered By: Fern Marroquin on 10-11-2024 CO2 [Moles/Vol] 21.9 mmol/L 21.0-32.0 [facility] Chloride assayOrdered By: Delma Marroquin on 10-11-2024 Chloride [Moles/Vol] 102 mmol/L 98-108 [facility] Emergency Department Summary on 10-11-2024 Emergency Department Summary [facility] Medical Records Department [address] [place] [address] Emergency Department Summary 10/11/24 MR#: [id number] Acct: [id number] Name: JOSE EDWARD Rep #: [id number] : 1995 29 From: Fern Marroquin DO [...] ea 02/28/24 Unknown Rx (FreeStyle Lexi 2 [place]) flash glucose sensor (FreeStyle #1 ea 02/28/24 Unknown Rx Lexi 2 Sensor kit) PNV no.151-iron 27 mg-folic 800 1 cap PO DAILY 10/11/24 Unknown Hi story mcg-omega3 260 ln-lft-ydh-fish capsule ( Multi-DHA (with vitamin K)) cabergoline [...] Diabetes Uncle Diabetes Grandmother Diabetes Surgical History Schaller teeth extracted History of hysteroscopy Status post laparoscopy S/P D C (status post dilation and curettage) Hx of lumpectomy History of tonsillectomy and adenoidectomy Social History adopted: No household members: spouse number of children: 0 current occupational status: employed current occupation: [employer] current occupational exposures/hazards: No pets and animals: [...] physical activity do you participate in: none jessica/yazidi: Jew seatbelt use: always do you feel safe at home: Yes additional social history: - Rene- Chuck ROS ROS ED Review of Systems ROS Unobtainable: other Constitutional Constitutional ED: Reports lethargy; Denies chills, fever(s), sweats or weight loss Eyes Eyes: Denie (more content not included)... Normal [facility] Eosinophil percentageOrdered By: Fern Marroquin on 10-11-2024 Eosinophils/100 WBC (Bld) 0.0 % 0-5 [facility] Epithelial cells.squamous LM Ql (Urine sed)Ordered By: Fern Marroquin on 10-11-2024 Epithelial cells.squamous LM.HPF (Urine sed) [#/Area] 0 /[HPF] 5-10 [facility] Erythrocyte distribution wid th (RBC) [Ratio]Ordered By: [facility] on 10-11-2024 Erythrocyte distribution width (RBC) [Entitic vol] 41.7 fL 35.1-43.9 [facility] Erythrocyte distribution wid th ratioOrdered By: [facility] on 10-11-2024 Erythrocyte distribution width (RBC) [Ratio] 12.9 % 11.6-14.6 [facility] Estimation of creatinine rory aranceOrdered By: [facility] Marroquin on 10-11-2024 Estimated Creatinine Clearance Calc 147.18 ml/min 50-250 [facility] GFR/1.73 sq M.predicted checo g non-blacks MDRD (S/P/Bld) [Vol rate/Area]Ordered By: Fern Marroquin on 10-11-2024 Estimated GFR (MDRD) Non-Af Amer 127 >60 [facility] Comment on above: mL/min/1.73m2 CKD-EP I Creatinine Equation (2020) Glucose Ql (U)Ordered By: Delma Marroquin on 10-11-2024 Urine Glucose (UA) Normal mg/dl Normal [facility] Hematocrit Auto (Bld) [Volum e fraction]Ordered By: Fern Marroquin on 10-11-2024 Hematocrit (Bld) [Volume fraction] 34.0 % Low 37-47 [facility] Hemoglobin measurementOrdere d By: Fern Marbinbraulio on 10-11-2024 Hemoglobin (Bld) [Mass/Vol] 11.6 g/dL Low 12.0-15.0 [facility] Immature granulocytes/100 WB C Auto (Bld)Ordered By: Fern Marroquin on 10-11-2024 Immature granulocytes/100 WBC (Bld) 0.600 % 0.0-0.9 [facility] Comment on above: IG% - Immature Granu locytes (promyelocytes, myelocytes and metamyelocytes) > 1% indicates that a LEFT SHIFT is Present. Ketones Test strip Ql (U)Ord ered By: Fern Marroquin on 10-11-2024 Ketones Ql (U) Negative Negative [facility] Lymphocytes Auto (Unsp spec) [#/Vol]Ordered By: Fern Marroquin on 10-11-2024 Lymphocytes (Bld) [#/Vol] 1.84 10*3/uL 0.83-4.51 [facility] Lymphocytes/100 WBC Auto (Un sp spec)Ordered By: Cyndi Lopez on 10-11-2024 Lymphocytes/100 WBC (Bld) 8.2 % Low 19-41 [facility] MCV (mean corpuscular volume ) determinationOrdered By: Fern Marroquin on 10-11-2024 MCV (RBC) [Entitic vol] 88.3 fL 81-99 [facility] Mean corpuscular hemoglobin (MCH) determinationOrdered By: Fern Marroquin on 10-11-2024 MCH (RBC) [Entitic mass] 30.1 pg 27.0-32.0 [facility] Mean corpuscular hemoglobin concentration (MCHC) determinationOrdered By: Fern Marroquin on 10-11-2024 MCHC (RBC) [Mass/Vol] 34.1 g/dL 32-36 [facility] Mean platelet volume determi nationOrdered By: Fern Marroquin on 10-11-2024 Platelet mean volume (Bld) [Entitic vol] 9.2 fL 6.2-12.0 [facility] Microscopic analysis of urin e for red blood cells (RBC)Ordered By: Fern Marroquin on 10-11-2024 Urine RBC 0 SEEN /hpf 0-5 [facility] Monocyte percentageOrdered B y: Fern Marroquin on 10-11-2024 Monocytes/100 WBC (Bld) 4.0 % 0-10 [facility] Mucus LM Ql (Urine sed)Order ed By: Fern Marroquin on 10-11-2024 Mucus Ql (Urine sed) 0 SEEN /hpf [facility] Neutrophil percentageOrdered By: Fern Marroquin on 10-11-2024 Neutrophils/100 WBC (Bld) 87.1 % High 47-70 [facility] Nitrite Test strip Ql (U)Ord ered By: Fern Marroquin on 10-11-2024 Nitrite Ql (U) Positive High Negative [facility] Nucleated red blood cell per centageOrdered By: Fern Marroquin on 10-11-2024 Nucleated RBC/100 WBC (Bld) [Ratio] 0 % 0-5 [facility] Platelet countOrdered By: Delma Marroquin on 10-11-2024 Platelets (Bld) [#/Vol] 321 10*3/uL 150-450 [facility] Potassium (Unsp spec) [Mass/ Vol]Ordered By: Fern Marroquin on 10-11-2024 Potassium [Moles/Vol] 4.1 mmol/L 3.3-5.1 [facility] ,Serum,hCG Quali.on 10-11-2024 HCG, SERUM QUAL Negative Normal [facility] Comment on above: Performed By: #### L 500.2500, L100.0100, L700.6800 #### [facility] Laboratory [address] [place], [address] Protein Test strip Ql (U)Ord ered By: Fern Marroquin on 10-11-2024 Protein Ql (U) 30 mg/dl High Negative [facility] RBC Auto (Bld) [#/Vol]Ordere d By: Fern Marroquin on 10-11-2024 RBC (Bld) [#/Vol] 3.85 10*6/uL Low 4.2-5.4 [facility] Serum creatinine measurement (mass/volume)Ordered By: Fern Zazuetabraulio on 10-11-2024 Creatinine [Mass/Vol] 0.58 mg/dL Low 0.70-1.20 [facility] Serum glucose measurement (m ass/volume)Ordered By: Fern Zazuetabraulio on 10-11-2024 Glucose [Mass/Vol] 139 mg/dL High 70-99 [facility] Serum or plasma calcium shannon urement (mass/volume)Ordered By: Fern Zazuetabraulio on 10-11-2024 Calcium [Mass/Vol] 9.1 mg/dL 7.6-11.0 [facility] Serum or plasma urea nitroge n measurement (mass/volume)Ordered By: Fern Zazuetabraulio on 10-11-2024 Urea nitrogen [Mass/Vol] 10 mg/dL 4-19 [facility] Sodium levelOrdered By: Juliann Marroquin on 10-11-2024 Sodium [Moles/Vol] 136 mmol/L 133-145 [facility] Urinalysis, Completeon 10-11 BACTERIA RARE Normal None Seen [facility] Comment on above: Order Comment: EDWARD CTOR TO SPECIFY Performed By: #### L 500.2500, L100.0100, L700.6800 #### [facility] Laboratory [address] [place], [address] EPI,SQUAMOUS 0 SEEN Normal 5-10 [facility] Comment on above: Order Comment: EDWARD CTOR TO SPECIFY Performed By: #### L 500.2500, L100.0100, L700.6800 #### [facility] Laboratory [address] [place], [address] Mucus Ql (Urine sed) 0 SEEN Normal [facility] Comment on above: Order Comment: EDWARD CTOR TO SPECIFY Performed By: #### L 500.2500, L100.0100, L700.6800 #### [facility] Laboratory [address] [place], [address] RBC 0 SEEN Normal 0-5 [facility] Comment on above: Order Comment: EDWARD CTOR TO SPECIFY Performed By: #### L 500.2500, L100.0100, L700.6800 #### [facility] Laboratory [address] [place], [address] WBC 0 SEEN Normal 0-5 [facility] Comment on above: Order Comment: EDWARD CTOR TO SPECIFY Performed By: #### L 500.2500, L100.0100, L700.6800 #### [facility] Laboratory [address] [place], [address] Urine blood detectionOrdered By: Fern Marroquin on 10-11-2024 Urine Occult Blood 150 /ul High Negative [facility] Urine clarityOrdered By: Cyndi us Lopez on 10-11-2024 Clarity (U) Clear Clear [facility] Urine color determinationOrd ered By: Fern Marroquin on 10-11-2024 Color (U) Yellow Yellow [facility] Urine leukocyte esterase det ection by dipstickOrdered By: Fern Marroquin on 10-11-2024 Leukocyte esterase Test strip Ql (U) Negative Negative [facility] Urine pHOrdered By: Fern Un gur on 10-11-2024 pH (U) 7.0 [pH] 5.0 - 8.0 [facility] Urine specific gravity measu rementOrdered By: Fern Marroquin on 10-11-2024 Specific gravity (U) [Rel density] 1.010 1.002-1.030 [facility] Urobilinogen Ql (U)Ordered B y: Fern Marroquin on 10-11-2024 Urobilinogen (U) [Mass/Vol] 4 mg/dL High Normal [facility] White blood cell (WBC) count Ordered By: Fern Marroquin on 10-11-2024 WBC (Bld) [#/Vol] 22.5 10*3/uL High 4.4-11.0 [facility] White blood cell countOrdere d By: Fern Marroquin on 10-11-2024 Urine WBC 0 SEEN /hpf 0-5 [facility] E2on 10-07-2024 Estradiol Level 1333.35 pg/mL Normal [facility] Comment on above: Result Comment: No te - New Reference Range in effect 20 Adult Female E2 Reference Ranges: Follicular phase 19.5 - 144.2 pg/mL Midcycle 63.9 - 356.7 pg/mL Luteal phase 55.8 - 214.2 pg/mL Post menopausal 0 - 33.2 pg/mL Performed By: #### P LATRICE, E2, LH #### [place] [address] LHon 10-07-2024 LH 3.9 mIU/mL Normal [facility] Comment on above: Result Comment: No te - New Reference Range in effect 20 Adult Female LH Reference Ranges: Follicular phase 1.9 - 12.5 mIU/mL Midcycle phase 8.7 - 76.3 mIU/mL Luteal phase 0.5 - 16.9 mIU/mL Post menopausal 5.0 - 55.2 mIU/mL Performed By: #### P LATRICE, E2, LH #### [place] [address] PROGon 10-07-2024 Progesterone Level 0.9 ng/mL Normal [...] By: #### P LATRICE, E2, LH #### [address] [place], [place] [address] HIV - WCHon 08-20-2024 HIV Non-Reactive Normal Nonreactive [facility] Comment on above: Performed By: #### L 509.4005, L3890.6300, L509.8000, L3400.0005, L3890.6100, L3890.6005 #### [facility] Laboratory [address] [place], [address] Antimullerian Hormone, Serum on 08-19-2024 AMH, SERUM 6.59 ng/mL Normal . [facility] Comment on above: Result Comment: For assays employing antibodies, the possibility exists for interference by heterophile antibodies in the samples.1 1.Anthony Khan. Interferences in Immunoassays - still a threat. Clin. Chem. 2000; 46: 5139-0829. This test was developed and its performance characteristics determined by [employer]. It has not been cleared or approved by the Food and Drug Administration. Reference Range: Females 26 - 30y: 1.03 - 11.10 Median 4.20 AMH concentrations of >= 1.06 ng/mL is correlated with a better response to ovarian stimulation, produced more retrievable oocytes and higher odds of live according to Gleicher et al. Fertility and Sterility. 2010: 94:1071-5287. The current AMH test method correlates with [...] By: #### L 500.2500, L100.0100, L700.6800 #### [facility] [address] [place], [place], [id number] PROLACTIN 4465on 08-19-2024 PROLACTIN 21.9 ng/mL Normal 4.8-33.4 [facility] Comment on above: Result Comment: Perf ormed at: ES - [employer] [address], [place] [id number] Jointer Machine Operator: Mik Jerez MD, Phone: [phone] Performed at: [address] [id number] Jointer Machine Operator: Heri Louis PhD, Phone: [phone] Performed By: #### L 500.2500, L100.0100, L700.6800 #### [facility] [address] [facility] [place], [place], [id number] L3400.0005on 08-16-2024 V ZOSTER IgG Reactive Normal Non Reactive [facility] Comment on above: Result Comment: Pl ease note reference interval change A Reactive result is considered evidence of immunity to VZV. Reactive indicates that VZV IgG was detected consistent with previous infection and/or vaccination. A Non Reactive result indicates that VZV IgG was not detected suggesting that immunity has not been acquired. Performed at: [address] [id number] Jointer Machine Operator: Heri Louis PhD, Phone: [phone] Performed By: #### L 509.4005, L3890.6300, L509.8000, L3400.0005, L3890.6100, L3890.6005 #### [facility] [address] [place], [place], [id number] DOrdered By: Ziggy Villareal on 08-15-2024 Vitamin D 25-Hydroxy 28.5 ng/mL [facility] Comment on above: Vitamin D 25(OH) Sta tus Range Deficiency <20 ng/mL (50nmol/L) Insufficiency 20 - 30 ng/mL (50 - 75 nmol/L) Sufficiency 30 - 100 ng/mL (75 - 250 nmol/L) Toxicity >100 ng/mL (>250 nmol/L) Albumin to globulin ratioOrd ered By: Julianna Villareal on 08-15-2024 Albumin/Globulin [Mass ratio] 1.3 {ratio} 0.9-2.4 [facility] Bilirubin, totalOrdered By: Julianna Villareal on 08-15-2024 Bilirubin [Mass/Vol] 0.50 mg/dL 0.20-1.00 [facility] Comment on above: For patients on eltr ombopag therapy, use of Dimension [place] TBIL is not recommended. Blood urea nitrogen (BUN)/cr eatinine ratioOrdered By: Julianna Villareal on 08-15-2024 Urea nitrogen/Creatinine [Mass ratio] 16.3 mg/mg 10-20 [facility] CBC-Complete Blood Cnt No Di ffon 08-15-2024 Erythrocyte distribution width (RBC) [Ratio] 12.9 % Normal 11.6-14.6 [facility] Comment on above: Performed By: #### L 500.2500, L100.0100, L700.6800 #### [facility] [address] [place], [address] Hematocrit (Bld) [Volume fraction] 44.4 % Normal 37-47 [facility] Comment on above: Performed By: #### L 500.2500, L100.0100, L700.6800 #### [facility] [address] [place], [address] Hemoglobin (Bld) [Mass/Vol] 14.8 g/dL Normal 12.0-15.0 [facility] Comment on above: Performed By: #### L 500.2500, L100.0100, L700.6800 #### [facility] [address] [place], [address] MCH (RBC) [Entitic mass] 29.4 pg Normal 27.0-32.0 [facility] Comment on above: Performed By: #### L 500.2500, L100.0100, L700.6800 #### [facility] [address] [place], [address] MCHC (RBC) [Mass/Vol] 33.3 g/dL Normal 32-36 [facility] Comment on above: Performed By: #### L 500.2500, L100.0100, L700.6800 #### [facility] [address] [place], [address] MCV (RBC) [Entitic vol] 88.3 fL Normal 81-99 [facility] Comment on above: Performed By: #### L 500.2500, L100.0100, L700.6800 #### [facility] [address] [place], [address] Platelet mean volume (Bld) [Entitic vol] 9.7 fL Normal 6.2-12.0 [facility] Comment on above: Performed By: #### L 500.2500, L100.0100, L700.6800 #### [facility] [address] [place], [address] Platelets (Bld) [#/Vol] 304 10*3/uL Normal 150-450 [facility] Comment on above: Performed By: #### L 500.2500, L100.0100, L700.6800 #### [facility] [address] [place], [address] RBC (Bld) [#/Vol] 5.03 10*6/uL Normal 4.2-5.4 [facility] Comment on above: Performed By: #### L 500.2500, L100.0100, L700.6800 #### [facility] [address] [place], [address] RDW SD 41.4 fl Normal 35.1-43.9 [facility] Comment on above: Performed By: #### L 500.2500, L100.0100, L700.6800 #### [facility] [address] [place], [address] WBC (Bld) [#/Vol] 6.2 10*3/uL Normal 4.4-11.0 [facility] Comment on above: Performed By: #### L 500.2500, L100.0100, L700.6800 #### [facility] [address] [place], [address] Carbon dioxide measurementOr dered By: Julianna Villareal on 08-15-2024 CO2 [Moles/Vol] 25.0 mmol/L 21.0-32.0 [facility] Chloride measurementOrdered By: Julianna Villareal on 08-15-2024 Chloride [Moles/Vol] 106 mmol/L 98-107 [facility] Comprehensive Metabolic Prof ilon 08-15-2024 Albumin [Mass/Vol] 4.2 g/dL Normal 3.2-5.0 [facility] Comment on above: Performed By: #### L 500.2500, L100.0100, L700.6800 #### [facility] [address] [place], [address] Albumin/Globulin [Mass ratio] 1.3 {ratio} Normal 0.9-2.4 [facility] Comment on above: Performed By: #### L 500.2500, L100.0100, L700.6800 #### [facility] [address] [place], [address] ALK P 96 U/L Normal 45-117 [facility] Comment on above: Performed By: #### L 500.2500, L100.0100, L700.6800 #### [facility] [address] [place], [address] ALT [Catalytic activity/Vol] 22 U/L Normal 13-56 [facility] Comment on above: Performed By: #### L 500.2500, L100.0100, L700.6800 #### [facility] [address] [place], [address] AST [Catalytic activity/Vol] 15 U/L Normal 15-37 [facility] Comment on above: Performed By: #### L 500.2500, L100.0100, L700.6800 #### [facility] [address] [place], [address] Bilirubin [Mass/Vol] 0.50 mg/dL Normal 0.20-1.00 [facility] Comment on above: Result Comment: For patients on eltrombopag therapy, use of Dimension [place] TBIL is not recommended. Performed By: #### L 500.2500, L100.0100, L700.6800 #### [facility] [address] [place], [address] BUN/CRE 16.3 RATIO Normal 10-20 [facility] Comment on above: Performed By: #### L 500.2500, L100.0100, L700.6800 #### [facility] [address] [place], [address] CA,Total 9.5 mg/dL Normal 8.5-10.1 [facility] Comment on above: Performed By: #### L 500.2500, L100.0100, L700.6800 #### [facility] [address] [place], [address] Chloride [Moles/Vol] 106 mmol/L Normal 98-107 [facility] Comment on above: Performed By: #### L 500.2500, L100.0100, L700.6800 #### [facility] [address] [place], [address] CO2 [Moles/Vol] 25.0 mmol/L Normal 21.0-32.0 [facility] Comment on above: Performed By: #### L 500.2500, L100.0100, L700.6800 #### [facility] [address] [place], [address] Creatinine [Mass/Vol] 0.55 mg/dL Normal 0.55-1.02 [facility] Comment on above: Result Comment: The validity of the calculated GFR GFRAA in patients over 70 years has not been determined. Clinical correlation is essential. Performed By: #### L 500.2500, L100.0100, L700.6800 #### [facility] [address] [place], [address] EST GFR - AA 170 mL/min Normal >60 [facility] Comment on above: Result Comment: Afri can Azerbaijani GFR Calc Performed By: #### L 500.2500, L100.0100, L700.6800 #### [facility] [address] [place], [address] GAP 7 Normal 5-15 [facility] Comment on above: Performed By: #### L 500.2500, L100.0100, L700.6800 #### [facility] [address] [place], [address] GFR/1.73 sq M.predicted among non-blacks MDRD (S/P/Bld) [Vol rate/Area] 140 mL/min/{1.73_m2} Normal >60 [facility] Comment on above: Result Comment: Non- GFR Calc Performed By: #### L 500.2500, L100.0100, L700.6800 #### [facility] [address] [place], [address] Globulin (S) [Mass/Vol] 3.2 g/dL Normal 2.2-4.2 [facility] Comment on above: Performed By: #### L 500.2500, L100.0100, L700.6800 #### [facility] [address] [place], [address] Glucose [Mass/Vol] 98 mg/dL Normal 74-106 [facility] Comment on above: Performed By: #### L 500.2500, L100.0100, L700.6800 #### [facility] [address] [place], [address] Potassium [Moles/Vol] 3.8 mmol/L Normal 3.5-5.1 [facility] Comment on above: Performed By: #### L 500.2500, L100.0100, L700.6800 #### [facility] [address] [place], [address] Sodium [Moles/Vol] 138 mmol/L Normal 136-145 [facility] Comment on above: Performed By: #### L 500.2500, L100.0100, L700.6800 #### [facility] [address] [place], [address] T PROT 7.4 g/dL Normal 6.4-8.2 [facility] Comment on above: Performed By: #### L 500.2500, L100.0100, L700.6800 #### [facility] [address] [place], [address] Urea nitrogen [Mass/Vol] 9 mg/dL Normal 7-18 [facility] Comment on above: Performed By: #### L 500.2500, L100.0100, L700.6800 #### [facility] [address] [place], [address] Erythrocyte distribution wid th (RBC) [Ratio]Ordered By: Julianna Villareal on 08-15-2024 Erythrocyte distribution width (RBC) [Entitic vol] 41.4 fL 35.1-43.9 [facility] Erythrocyte distribution wid th ratioOrdered By: Julianna Villareal on 08-15-2024 Erythrocyte distribution width (RBC) [Ratio] 12.9 % 11.6-14.6 [facility] Estimated glomerular filtrat ion rate (GFR) AmericanOrdered By: Julianna Villareal on 08-15-2024 Estimated GFR (MDRD) Amer 170 mL/min >60 [facility] Comment on above: GFR Calc Flecainide [Mass/Vol]Ordered By: Julianna Villareal on 08-15-2024 Anti-Mullerian Hormone 6.59 ng/mL . [facility] Comment on above: For assays employing antibodies, the possibility exists forinterference by heterophile antibodies in the samples.11.Anthony Richard Interferences in Immunoassays - still a threat. Clin. Chem. 2000; 46: 9356-5393.This test was developed and its performance characteristicsdetermined by [employer]. It has not been cleared or approvedby the Food and Drug Administration.Reference Range:Females 26 - 30y: 1.03 - 11.10Median 4.20AMH concentrations of >= 1.06 ng/mL is correlated with abetter response to ovarian stimulation, produced moreretrievable oocytes and higher odds of live accordingto Stacey et al. Fertility and Sterility. 2010:94:7485-0575. The current AMH test method correlates withthe [...] GFR (MDRD) Non-Af Amer 140 mL/min >60 [facility] Comment on above: Non- GFR Calc Glucose measurementOrdered B y: Julianna Villareal on 08-15-2024 Glucose [Mass/Vol] 98 mg/dL 74-106 [facility] HIV 1+2 Ab+HIV1 p24 Ag IA Ql Ordered By: Julianna Villareal 08-15-2024 HIV (1&2) Antibody Non-Reactive Nonreactive [facility] Hematocrit Auto (Bld) [Volum e fraction]Ordered By: Julianna Villareal on 08-15-2024 Hematocrit (Bld) [Volume fraction] 44.4 % 37-47 [facility] Hemoglobin measurementOrdere d By: Julianna Villareal on 08-15-2024 Hemoglobin (Bld) [Mass/Vol] 14.8 g/dL 12.0-15.0 [facility] Hepatitis B Surface Antigeno n 08-15-2024 HEP B Surf Ag Non-Reactive Normal Nonreactive [facility] Comment on above: Performed By: #### L 509.4005, L3890.6300, L509.8000, L3400.0005, L3890.6100, L3890.6005 #### [facility] [address] [place], [address] Hepatitis B surface antigen detectionOrdered By: Julianna Villareal on 08-15-2024 Hepatitis B Surface Antigen Non-Reactive Nonreactive [facility] Hepatitis C Antibodyon 08-15 Hepatitis C AB Non-Reactive Normal Nonreactive [facility] Comment on above: Result Comment: Non Reactive: < 0.8 Equivocal: >/= 0.8 to < 1.0 Reactive: >/= 1.0 The [facility] requires that a reactive/equivocal HCV antibody result be sent out for confirmation. HCV Quant by PCR testing. Performed By: #### L 509.4005, L3890.6300, L509.8000, L3400.0005, L3890.6100, L3890.6005 #### [facility] [address] [place], [address] Hepatitis C virus antibody a ssayOrdered By: Julianna Villareal on 08-15-2024 Hepatitis C Antibody Non-Reactive Nonreactive [facility] Comment on above: Non Reactive: < 0.8 Equivocal: >/= 0.8 to < 1.0 Reactive: >/= 1.0The [facility] requires that a reactive/equivocal HCV antibody result be sent out for confirmation. HCV Quant by PCR testing. L509.8000on 08-15-2024 Syphilis Abs Non-Reactive Normal [facility] Comment on above: Performed By: #### L 509.4005, L3890.6300, L509.8000, L3400.0005, L3890.6100, L3890.6005 #### [facility] [address] [place], [address] Laboratory - Chemistry and C hemistry - challengeOrdered By: Julianna Villareal on 08-15-2024 AST [Catalytic activity/Vol] 15 U/L 15-37 [facility] MCV (mean corpuscular volume ) determinationOrdered By: Julianna Villareal on 08-15-2024 MCV (RBC) [Entitic vol] 88.3 fL 81-99 [facility] Mean corpuscular hemoglobin (MCH) determinationOrdered By: Julianna Villareal on 08-15-2024 MCH (RBC) [Entitic mass] 29.4 pg 27.0-32.0 [facility] Mean corpuscular hemoglobin concentration (MCHC) determinationOrdered By: Julianna Villareal on 08-15-2024 MCHC (RBC) [Mass/Vol] 33.3 g/dL 32-36 [facility] Mean platelet volume determi nationOrdered By: Julianna Villareal on 08-15-2024 Platelet mean volume (Bld) [Entitic vol] 9.7 fL 6.2-12.0 [facility] Pelvis W/WO Contraston 08-15 Pelvis W/WO Contrast [facility] [address] [place], [place] [address] Pelvis W/WO Contrast MR#: [id number] Acct: [id number] Name: JOSE EDWARD Rep #: [id number] : 1995 F 28 From: Rekha Sharpe i, DO PCP: CHERYL Samano Status: REG CLI Study: Pelvis W/WO Contrast Date of Exam: 08/15/24 Exam# [id number] Ordering Dr: Julianna Newman DO PROCEDURE: MRI [...] physiologic in this young patient. [facility] Dr. Julianna Newman DO; CHERYL Samano Follow Up Specialist: Signed Normal [facility] Platelet countOrdered By: Ayan Villareal on 08-15-2024 Platelets (Bld) [#/Vol] 304 10*3/uL 150-450 [facility] Potassium measurementOrdered By: Julianna Villareal on 08-15-2024 Potassium [Moles/Vol] 3.8 mmol/L 3.5-5.1 [facility] Prolactin [Mass/Vol]Ordered By: Julianna Villareal on 08-15-2024 Prolactin 21.9 ng/mL 4.8-33.4 [facility] Comment on above: Performed at: ES - [employer] [id number] [place] [id number] Director: Mik Jerez MD, Phone: [phone] at: CB - [facility] [address] [id number] Director: Heri Louis PhD, Phone: [phone] RBC Auto (Bld) [#/Vol]Ordere d By: Julianna Villareal on 08-15-2024 RBC (Bld) [#/Vol] 5.03 10*6/uL 4.2-5.4 [facility] Rubella IgGon 08-15-2024 Rubella IgG Reactive Normal Nonreactive [facility] Comment on above: Result Comment: Anti body Results Interpretation of Immune Status Non Reactive Presumed Non-Immune Equivocal Equivocal Reactive Presumed Immune Performed By: #### L 509.4005, L3890.6300, L509.8000, L3400.0005, L3890.6100, L3890.6005 #### [facility] [place], [address] Rubella immune status IgGOrd ered By: Julianna Villareal on 08-15-2024 Rubella IgG Antibody Reactive Nonreactive [facility] Comment on above: Antibody Results Int erpretation of Immune Status Non Reactive Presumed Non-Immune Equivocal Equivocal Reactive Presumed Immune Serum anion gap measurementO rdered By: Julianna Villareal on 08-15-2024 Anion gap [Moles/Vol] 7 mmol/L 5-15 [facility] Serum globulin measurementOr dered By: Julianna Villareal on 08-15-2024 Globulin (S) [Mass/Vol] 3.2 g/dL 2.2-4.2 [facility] Serum or plasma alanine eric otransferase (ALT) measurementOrdered By: Julianna Villareal on 08-15-2024 ALT [Catalytic activity/Vol] 22 U/L 13-56 [facility] Serum or plasma albumin shannon urement (mass/volume)Ordered By: Julianna Villareal on 08-15-2024 Albumin [Mass/Vol] 4.2 g/dL 3.2-5.0 [facility] Serum or plasma alkaline meredith sphatase measurementOrdered By: Julianna Villareal on 08-15-2024 ALP [Catalytic activity/Vol] 96 U/L 45-117 [facility] Serum or plasma calcium shannon urement (mass/volume)Ordered By: Julianna Villaeral on 08-15-2024 Calcium [Mass/Vol] 9.5 mg/dL 8.5-10.1 [facility] Serum or plasma creatinine m easurement (mass/volume)Ordered By: Julianna Villareal on 08-15-2024 Creatinine [Mass/Vol] 0.55 mg/dL 0.55-1.02 [facility] Comment on above: The validity of the calculated GFR & GFRAA in patients over 70 years has not been determined. Clinical correlation is essential. Serum or plasma urea nitroge n measurement (mass/volume)Ordered By: Julianna Villareal on 08-15-2024 Urea nitrogen [Mass/Vol] 9 mg/dL 7-18 [facility] Sodium levelOrdered By: Bernadine Villareal on 08-15-2024 Sodium [Moles/Vol] 138 mmol/L 136-145 [facility] Testosterone, Serum Totalon 08-15-2024 Testosterone [Mass/Vol] 32.20 ng/dL Normal [facility] Comment on above: Result Comment: CENT RAL 90% REFERENCE RANGES MALE AGE <50 197.44 - 669.58 ng/dL MALE AGE > or = 50 187.72 - 684.19 ng/dL FEMALE AGE <50 8.38 - 35.01 ng/dL FEMALE AGE > or = 50 <7.00 - 35.92 ng/dL Effective as of 01/26/21 Performed By: #### L 500.2500, L100.0100, L700.6800 #### [facility] [address] [place], [place], [address] Testosterone, totalOrdered B y: Julianna Villareal on 08-15-2024 Testosterone [Mass/Vol] 32.20 ng/dL [facility] Comment on above: CENTRAL 90% REFERENC E RANGES MALE AGE <50 197.44 - 669.58 ng/dL MALE AGE > or = 50 187.72 - 684.19 ng/dL FEMALE AGE <50 8.38 - 35.01 ng/dL FEMALE AGE > or = 50 <7.00 - 35.92 ng/dL Effective as of 01/26/21 Total proteinOrdered By: Juliane Villareal on 08-15-2024 Protein [Mass/Vol] 7.4 g/dL 6.4-8.2 [facility] Treponema sp Ab Ql (S)Ordere d By: Julianna Villareal on 08-15-2024 Syphilis Total Antibody Non-Reactive [facility] Type AND Screenon 08-15-2024 Ab SCREEN GEL Negative Normal [facility] Comment on above: Order Comment: PN Performed By: #### L 500.2500, L100.0100, L700.6800 #### [facility] [address] [place], [place], [address] Varicella-zoster virus IgG a ntibody assayOrdered By: Julianna Villareal on 08-15-2024 Varicella-Zoster IgG Antibody Reactive Non Reactive [facility] Comment on above: Please note refere nce interval changeA Reactive result is considered evidence of immunity toVZV. Reactive indicates that VZV IgG was detectedconsistent with previous infection and/or vaccination.A Non Reactive result indicates that VZV IgG was notdetected suggesting that immunity has not been acquired.Performed at: [facility] [id number] Director: Heri Louis PhD, Phone: [id number] Vitamin D,25 Hydroxyon 08-15 Vitamin D 25-OH 28.5 ng/mL Normal [facility] Comment on above: Result Comment: Talisha min D 25(OH) Status Range Deficiency <20 ng/mL (50nmol/L) Insufficiency 20 - 30 ng/mL (50 - 75 nmol/L) Sufficiency 30 - 100 ng/mL (75 - 250 nmol/L) Toxicity >100 ng/mL (>250 nmol/L) Performed By: #### L 500.2500, L100.0100, L700.6800 #### [facility] Laboratory [address] [place], [place], [id number] White blood cell (WBC) count Ordered By: Julianna Villareal on 08-15-2024 WBC (Bld) [#/Vol] 6.2 10*3/uL 4.4-11.0 [facility] Genital Culture Comprehensiv lawanda 06-20-2024 VAC Reason for Exam: vag inal discharge Normal vaginal ese isolated. No yeast, Gardnerella, Neisseria or beta-hemolytic Streptococcus isolated. Normal [facility] Comment on above: Performed By: #### L 500.2500, L100.0100, L700.6800 #### [facility] Laboratory [address] [place], [place], [phone] Genital cultureOrdered By: Herberth Sampson on 06-19-2024 Genital Culture Neisseria or beta-hemolytic Streptococcus isolated. [facility] Gram Stainon 06-19-2024 GS Reason for Exam: vag inal discharge Gram Stain 4+ Gram positive rods 2+ Gram variable carlos 1+ White Blood Cells Clue Cells 4+ Gram negative rods Score = 6 Interpretation: 0-3 Normal, 4-6 Intermediate, 7-10 Positive BV Normal [facility] Comment on above: Performed By: #### L 500.2500, L100.0100, L700.6800 #### [facility] [address] [place], [address] Gram stainOrdered By: Lilly Sampson on 06-19-2024 Microscopic observation Gram stain Nom (Unsp spec) [facility] Internal Affairs Commander Office Visit Reporton 06-19-2024 Internal Affairs Commander Office Visit Report [facility]'s [address], [address] [place] [address] OFFICE VISIT Date of Service: 06/19/24 MR#: [id number] Acct: [id number] Name: JOSE EDWARD Rep #: [id number] : 1995 Provider: AMY Cage Age/Sex: 28/F [place] [facility] [place]: Signed Intake Vital Signs 03/06/24 13:40 06/19/24 09:41 Height 5 ft 2 in 5 ft 2 in Weight: 176 lb BMI 32.1 BP 119/79 Intake Visit Reasons: painful intercourse Chief Complaint: painful intercourse Impersonator Character Required: No Allergies Latex, Natural Rubber Allergy (Intermediate, Verified 06/19/24 09:40) Other azithromycin (From Zithromax) Allergy (Verified 06/19/24 09:40) JOHN VIJI'S SYNDROME venlafaxine Allergy (Verified 06/19/24 09:40) Other Medications ???Medication ???Instructions ???Recorded ???Confirmed ???Type omeprazole 20 mg tablet,delayed 20 mg PO DAILY 10/03/23 06/19/24 History release multivitamin no.47-iron fum 27 1 cap PO DAILY #30 caps 06/14/24 12/18/24 Rx mg-folate no.1 1 mg-dha 300 mg capsule (PNV-DHA) blood sugar diagnostic (Blood #50 02/26/24 03/06/24 Rx Glucose Test strips) blood-glucose meter #1 02/26/24 03/06/24 Rx lancets 30 gauge (Droplet Lancets) #200 02/26/24 03/06/24 Rx flash glucose scanning reader #1 02/28/24 03/06/24 Rx (FreeStyle Lexi 2 [place]) flash glucose sensor (FreeStyle #1 02/28/24 03/06/24 Rx Lexi 2 Sensor kit) sertraline 25 mg tablet 25 mg PO QDAY 06/19/24 06/19/24 History Is last menstrual period known: No Post menopausal: No Patient : No : No Control Method: none [facility] Medical History Abnormal uterine bleeding Conceived by in vitro fertilization Supervision of high-risk Decreased movement False labor before 37 completed weeks of gestation premature rupture of membranes (PPROM) with unknown onset of labor Genetic testing of female Wears contact lenses Anxiety Alcohol use Heartburn Vapes nicotine containing substance Endometrial polyp Abnormal uterine bleeding (AUB) Surgical History Schaller teeth extracted History of hysteroscopy Status post laparoscopy S/P D C (status post dilation and curettage) Hx of lumpectomy History of tonsillectomy and adenoidectomy Family History Mother Diabetes Uncle Diabetes Grandmother Diabetes Social History adopted: No household members: spouse number of children: 0 current occupational status: employed current occupation: [employer] current occupational exposures/hazards: No pets and animals: [...] physical activity do you participate in: none jessica/yazidi: Jew seatbelt use: always do you feel safe at home: Yes additional social history: - Rene- Chuck BERMAN painful intercourse Details: JOSE EDWARD is [...] noted i (more content not included)... Normal [facility] Progress Noteon 05-14-2024 Limousine Rental Clerk Authentication Interface Message Text Visit This is [...] Support and reassurance given. Discussed meeting with [facility] and pt has appt via telehealth [...] Precautions reviewed Pt to follow up with [facility] as scheduled The total time spent on patient care today 05/14/2024 was 20 minutes. -10 minutes direct patient care -10 minutes chart review and documentation Normal [facility] Progress Noteon 04-25-2024 Limousine Rental Clerk Authentication Interface Message Text Visit Subjective: Jose [...] gtt completed WNL 3. Follow up with ENGINEERING DESIGNER as scheduled for routine well woman care 4. Discussed precon consult with future with MFM if desired The total time spent on patient care today 04/25/2024 was 30 minutes. -15 minutes direct patient care -15 minutes chart review and documentation Normal [facility] GTT 2 HOURon 04-10-2024 Glucose [Mass/Vol] 101 mg/dL 49 - PINF mg/dL [facility] Comment on above: Criteria for Diagnos [...] Interpretation and review of laboratory results Normal [facility] Glucose, 2 Hour GTT 101 mg/dL Normal >49-<140 [facility] Comment on above: Order Comment: Relea [...] #### G TT 2 HOUR #### JULIANNA Andre ([id number]) [facility] [employer] ([employer]) [address] GTT FASTINGon 04-10-2024 Glucose [Mass/Vol] 86 mg/dL Normal >49-<100 [facility] Comment on above: Order Comment: Relea se to patient->Automatic Result Comment: Veri fied By: [id number] Performed By: #### G TT FASTING #### JULIANNA Andre ([id number]) [employer]) [address] GTT FastingOrdered By: Backg round Lab on 04-10-2024 Glucose post fast [Mass/Vol] 86 mg/dL 49 - PINF mg/dL [facility] Comment on above: Verified By: [id number] Interpretation and review of laboratory results Normal [facility] Progress Noteon 03-28-2024 Limousine Rental Clerk Authentication Interface Message Text EXAM SUMMARY Jose presents for 2 week postop check. She delivered at 30w5d due to PPROM, labor and breech presentation. Delivery via LTCD with Dr. Gordillo. 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 care with [place] in [place]. Baby boy, doing well in [...] 1 Capsule (20 mg) by mouth daily [id number] PO daily No current facility-administered medications for [...] on patient care today: 35 minutes. Normal [facility] 42on 03-17-2024 42 Check in with mom, pumping for 30 5/7 week in NICU. Mom is pumping 15cc per session. Observed pump session and resized her flanges to 22.5mm. Mom was given Spectra pump from [facility] senior talent management consultant. Answer mom's questions. Discharge today. Normal [facility] - Chemistry and C hemistry - challengeon 03-17-2024 Glucose [Mass/Vol] 82 mg/dL 70 - 100 mg/dL [facility] No Panel Informationon 03-17 Interpretation and review of laboratory results Normal [facility] Performed by: [facility], [address] [place], [place] [address] [address] CLIA ID: [id number] [facility] Nursing Noteon 03-17-2024 Nursing Note Mom discharged mom i n good condition with all belongings to a private residence, accompanied by . All discharge instructions reviewed with patient who verbalizes understanding and denies further questions.Mom walked out at 1840 Normal [facility] Progress Noteon 03-17-2024 Progress Note ---- -------- Attestation signed by Wendi Aguilar MD at 03/17/2024 11:06 AM Hospital Care (Independent): I independently saw and evaluated the patient. I agree with the findings and plan of care as documented in the resident's note. POD#3 from pLTCS doing well. Meeting milestones. VSS. Ready for DC. They live 1[place]75 hours away so will stay in [facility] and [facility] when a spot opens. Has a [...] 03/14 - Dexcom in place (share code [id number]) - Discontinued meds after delivery and have been trending post-prandials - Blood sugars normalizing - AM fasting pending Disposition: Anticipate (more content not included)... Normal [facility] - Chemistry and C hemistry - challengeon 03-16-2024 Glucose [Mass/Vol] 124 mg/dL High 70 - 100 mg/dL [facility] Glucose [Mass/Vol] 77 mg/dL 70 - 100 mg/dL [facility] Glucose [Mass/Vol] 102 mg/dL High 70 - 100 mg/dL [facility] No Panel Informationon 03-16 Interpretation and review of laboratory results Abnormal [facility] Performed by: [facility] [email or web address] [facility], [address] [place] [address] CLIA ID: [id number] [facility] Interpretation and review of laboratory results Normal [facility] Performed by: [email or web address] [facility], [address] [place] [address], [facility] [address] CLIA ID: [id number] [facility] Interpretation and review of laboratory results Abnormal [facility] Performed by: [employer] [facility], [address] [place] [address], [facility] [address] CLIA ID: [id number] [facility] Progress Noteon 03-16-2024 Progress Note ---- -------- [...] receiving steroids for lung maturity; lost dose / -Dexcom in place -PP Plan: DC meds [...] Name: Christiano River (more content not included)... [facility] 42on 03-15-2024 42 Initial visit with cheyenne alonzo. This is mom's first baby, delivered at 30 6/7 weeks. Mom is a transfer from [place] ( lives 1/2 from [facility]). Nurse has mom set up with [...] electric breast pump- [facility]All questions answered. Will continue to monitor, encourage and support patient. [facility] CARECOORDon 03-15-2024 CARECORANDA Carr consult for help with housing while baby [...] No further needs anticipated. OK FOR DC [facility] CARECOORD Date: 03/15/2024 Name: Jose Edward : 1995 [facility] Information Emmalena Patient Information Primary Caregiver: Self Accompanied by/Relationship: S/O;Family Marital Status: Support System: SO/Family Gnosticist/Cultural Factors: none Activities of Daily Living Communication: [...] Delay: N/A Children's Services: N/A Normal [facility] HEMOGLOBINon 03-15-2024 Hemoglobin (Bld) [Mass/Vol] 12.6 g/dL Normal 11.7-16.0 [facility] Comment on above: Order Comment: POD # 1; if Hemoglobin less than 8 or greater than 3gm drop from admission, notify MD and repeat as ordered, Performed By: #### L [id number] ####Instructional Systems Designer: GYPSY DAY ([id number])[address] Hemoglobin (Bld) [Mass/Vol]O rdered By: Khurram Palacio on 03-15-2024 Interpretation and review of laboratory results Normal [facility] - Chemistry and C hemistry - challengeon 03-15-2024 Glucose [Mass/Vol] 97 mg/dL 70 - 100 mg/dL [facility] Glucose [Mass/Vol] 87 mg/dL 70 - 100 mg/dL [facility] Glucose [Mass/Vol] 155 mg/dL High 70 - 100 mg/dL [facility] Glucose [Mass/Vol] 98 mg/dL 70 - 100 mg/dL [facility] Laboratory - Hematology and Cell countsOrdered By: Khurram Palacio on 03-15-2024 Hemoglobin (Bld) [Mass/Vol] 12.6 g/dL 11.7 - 16.0 g/dL [facility] No Panel Informationon 03-15 Interpretation and review of laboratory results Normal [facility] Performed by: [facility], [address] [place] [address] CLIA ID: [id number] [facility] Interpretation and review of laboratory results Normal [facility] Performed by: [facility], [address] [place] [address], [facility] [address] CLIA ID: [id number] [facility] Interpretation and review of laboratory results Abnormal [facility] Performed by: [facility], [address] [place] [address], [facility] [address] CLIA ID: [id number] [facility] Interpretation and review of laboratory results Normal [facility] Performed by: [facility], [address] [place] [address], [facility] [address] CLIA ID: [id number] [facility] Nursing Noteon 03-15-2024 Nursing Note At 2320, [...] of Humalog. Patient voiced understanding and agreeable. [facility] Progress Noteon 03-15-2024 Progress Note Note-Summer [...] and documentation , 9:41 AM Normal [facility] BLOOD TYPE AND SCREEN GELon 03-14-2024 ABO GROUPING O Normal [facility] Comment on above: Performed By: #### L [id number] ####Instructional Systems Designer: GYPSY DAY ([id number])[facility] [place] [address] RH TYPE IN BLOOD Positive Normal [facility] Comment on above: Performed By: #### L AB276 ####Instructional Systems Designer: GYPSY DAY ([id number])[facility] ([facility] [place] [address] Blood type and Crossmatch cheryl pollcok (Bld)on 03-14-2024 ABO group Nom (Bld) O [facility] Blood group antibody screen GEL Ql Negative [facility] D Ag Ql (RBC) Positive [facility] h [facility] Laboratory - Chemistry and C hemistry - challengeon 03-14-2024 Glucose [Mass/Vol] 217 mg/dL High 70 - 100 mg/dL [facility] Glucose [Mass/Vol] 249 mg/dL High 70 - 100 mg/dL [facility] Glucose [Mass/Vol] 101 mg/dL High 70 - 100 mg/dL [facility] Glucose [Mass/Vol] 116 mg/dL High 70 - 100 mg/dL [facility] No Panel Informationon 03-14 Interpretation and review of laboratory results Abnormal [facility] Performed by: [facility], [address] [place] [address] CLIA ID: [id number] [facility] Interpretation and review of laboratory results Abnormal [facility] Performed by: [facility], [address] [facility] [address] CLIA ID: [id number] [facility] 1. Allen live intrauterine at 30w 5d. 2. Normal growth; EFW 1445 grams, which is at the 37% for this gestational age. 3. The amniotic fluid index consistent with anhydramnios 4. Visualized anatomy appears normal as noted above. 5. BPP 6 See IP note recommend delivery given vaginal bleeding and PPROM with contractions and BREECH presentation Ultrasound is not diagnostic of chromosomal aneuploidy and does not detect all subtle defects. Normal ultrasound findings do not guarantee normal outcomes. [facility] OBSTETRICS REPORT (Signed Final 03/14/2024 12:33 pm) PATIENT INFO: ID #: [id number] : [birth year] (28 yrs)(F) Name: JOSE EDWARD Visit Date: 03/14/2024 09:55 am PERFORMED BY: Attending: Christiano Au MD Performed By: Allison Langley RDMS Referred By: JULIANA NGUYEN [facility] Phy.: RAND HALLMAN Location: [facility] Visit Type: Inpatient - Hospital SERVICE(S) PROVIDED: [facility] w/out NST [address] [place] [address] INDICATIONS: Oligohydramnios, third trimester, not O41.03X0 applicable [...] 03/14/2024 12:33 pm) PATIENT INFO: ID #: [id number] : [birth year] (28 yrs)(F) Name: JOSE EDWARD Visit Date: 03/14/2024 09:55 am PERFORMED BY: Attending: Christiano Au MD Performed By: Allison Langley RDMS Referred By: JULIANA Meléndez Phy.: RAND HALLMAN Location: [facility] Visit Type: Inpatient - Hospital SERVICE(S) PROVIDED: LAUREN w/jessica NST [address] [place] [address] INDICATIONS: Oligohydramnios, third trimester, not O41.03X0 applicable [...] ultrasound findings do not guarantee normal outcomes. [facility] Interpretation and review of laboratory results Abnormal [facility] Performed by: [facility], [address] [facility] [address] CLIA ID: [id number] [facility] Radiology Study observation (narrative) [facility] Interpretation and review of laboratory results Abnormal [facility] Performed by: [facility], [address] [facility] [address] CLIA ID: [id number] [facility] No Panel InformationOrdered By: Christiano Au on 03-14-2024 [facility] Work Phone: Nursing Noteon 03-14-2024 Nursing Note Pt reports spotting on her pad and upon assessing urine found a few red specks in her urine Normal [facility] Nursing Note Dr. Nguyen made aware that pt was just up to restroom and had a quarter size mucousy, bloody clot into toilet. No active bleeding noted. No change to plan of care at this time Normal [facility] Nursing Note Pt made aware that o rder for nothing to eat or drink has been ordered by Dr. Duarte. She states understanding. I made her aware that I will be starting IV fluids also. Normal [facility] Op Noteon 03-14-2024 Op Note 3x1 [...] : post anesthesia recovery FINDINGS: Live male , breech APGARS 1 min: 7 5 min: [...] recovery room in satisfactory stable condition. Chin Shiaura Crews, DO 03/14/2024 12:50 PM LABOR DELIVERY ??? SCD's [...] 40 (more content not included)... Normal [facility] Progress Noteon 03-14-2024 Progress Note 1hr [...] CCD Savanah Duarte DO 03/15/2024 12:07 AM [facility] Progress Note Nutrition Note: Patient now s/p delivery earlier today. Regular diet ordered which is appropriate. RD sign off to kosher dietary service manager to continue to monitor. Gypsy Kirby MS RD LD Clinical Dietitian Normal [facility] Progress Note Safety Huddle: Called due to PPROM and laboring with breech presentation and having vaginal bleeding. OB anesthesia, primary RN, discharge door operator, Dr. Gordillo all present. Will be for 2g Ancef, she is allergic to azithromycin. Received latency abx already. HOUSE REGISTRY RN notified. Consent signed by Dr. Au, risks and benefits discussed with the patient including bleeding, infection, damage to surrounding structures. Will proceed with primary section unscheduled, non-emergent. All in agreement. ANA TOVAR, 03/14/2024 10:43 AM ATTENDING NOTE: I reviewed the note from the Resident and agree with the documentation unless otherwise indicated. [facility] Progress Note Evaluated the patien t to assess position. The fetus is breech on BSUS. Ehsan Gonsalez MD 03/14/2024 9:18 AM [facility] Progress Note ---- -------- Attestation signed [...] Pulse: 91 [phone] 97 Resp: 17 Temp: 36.7 ?C (98.1 ?F) 36.9 [...] ODT (Z (more content not included)... Normal [facility] BIOPHYSICAL PROFILE WO NON STRESS TESTINGon 03-14-2024 US BIOPHYSICAL PROFILE WO NON STRESS TESTING OBSTETRICS REPORT (Signed Final 03/14/2024 12:33 pm) PATIENT INFO: ID #: [id number] : [birth year] (28 yrs)(F) Name: JOSE EDWARD Visit Date: 03/14/2024 09:55 am PERFORMED BY: Attending: Christiano Au MD Performed By: Allison Langley RDMS Referred By: JULIANA NGUYEN [facility] Phy.: RAND HLALMAN Location: [facility] Visit Type: Inpatient - Hospital SERVICE(S) PROVIDED: LAUREN w/jessica GUZMAN [address] [place] [address] INDICATIONS: Oligohydramnios, third trimester, not O41.03X0 applicable [...] do not guarantee normal outcomes. Normal [facility] US OB FOLLOW UP TRANSABDOMIN AL APPROACHon 03-14-2024 US OB FOLLOW UP TRANSABDOMINAL APPROACH OBSTETRICS REPORT (Signed Final 03/14/2024 12:33 pm) PATIENT INFO: ID #: [id number] : [birth year] (28 yrs)(F) Name: JOSE EDWARD Visit Date: 03/14/2024 09:55 am PERFORMED BY: Attending: Christiano Au MD Performed By: Allison Langley RDMS Referred By: JULIANA NGUYEN [facility] Phy.: RAND HALLMAN Location: [facility] Visit Type: Inpatient - Hospital SERVICE(S) PROVIDED: [facility] w/out NST [address] [place] [address] INDICATIONS: Oligohydramnios, third trimester, not O41.03X0 applicable [...] do not guarantee normal outcomes. Normal [facility] CARECOORDon 03-13-2024 [facility] day 8 at 30 /4 weeks. PPROM. Voiced no needs or concerns. Normal [facility] CBC (HEMOGRAM)on 03-13-2024 Erythrocyte distribution width (RBC) [Ratio] 13.8 % Normal 11.5-15.0 [facility] Comment on above: Performed By: #### L [id number] ####Instructional Systems Designer: GYPSY DAY ([id number])[facility])[address] [place] [address] Hematocrit (Bld) [Volume fraction] 38.4 % Normal 35.0-47.0 [facility] Comment on above: Performed By: #### L [id number] ####Instructional Systems Designer: GYPSY DAY ([id number])[facility])[address] [place] [address] Hemoglobin (Bld) [Mass/Vol] 13.0 g/dL Normal 11.7-16.0 [facility] Comment on above: Performed By: #### L [id number] ####Instructional Systems Designer: GYPSY DAY ([id number])[address] MCH (RBC) [Entitic mass] 29.8 pg Normal 26.0-34.0 [facility] Comment on above: Performed By: #### L [id number] ####Instructional Systems Designer: GYPSY DAY ([id number])[facility])[address] [place] [address] MCHC 33.9 % Normal 30.5-36.0 [facility] Comment on above: Performed By: #### L [id number] ####Instructional Systems Designer: GYPSY DAY ([id number])[address] MCV (RBC) [Entitic vol] 88.1 fL Normal 77.0-99.0 [facility] Comment on above: Performed By: #### L [id number] ####Instructional Systems Designer: GYPSY DAY ([id number])[address] Platelet mean volume (Bld) [Entitic vol] 9.5 fL Normal 9.0-12.7 [facility] Comment on above: Performed By: #### L [id number] ####Instructional Systems Designer: GYPSY DAY ([id number])[facility])[address] [place] [address] Platelets (Bld) [#/Vol] 282 10*3/uL Normal 140-440 [facility] Comment on above: Performed By: #### L [id number] ####Instructional Systems Designer: GYPSY DAY ([id number])[address] RBC (Bld) [#/Vol] 4.36 10*6/uL Normal 3.80-5.20 [facility] Comment on above: Performed By: #### L [id number] ####Instructional Systems Designer: GYPSY DAY ([id number])[address] WBC (Bld) [#/Vol] 8.7 10*3/uL Normal 3.6-10.7 [facility] Comment on above: Performed By: #### L [id number] ####Instructional Systems Designer: GYPSY DAY ([id number])[facility])[address] [place] [address] CBC panel Auto (Bld)on 03-13 Erythrocyte distribution width (RBC) [Ratio] 13.8 % 11.5 - 15.0 % [facility] Hematocrit (Bld) [Volume fraction] 38.4 % 35.0 - 47.0 % [facility] Hemoglobin (Bld) [Mass/Vol] 13.0 g/dL 11.7 - 16.0 g/dL [facility] Interpretation and review of laboratory results Normal [facility] MCH (RBC) [Entitic mass] 29.8 pg 26.0 - 34.[address] [facility] MCHC (RBC) [Mass/Vol] 33.9 % 30.5 - 36.0 % [facility] MCV (RBC) [Entitic vol] 88.1 fL 77.0 - 99.[address] [facility] Platelet mean volume (Bld) [Entitic vol] 9.5 fL 9.0 - 12.[address] [facility] Platelets (Bld) [#/Vol] 282 10*3/uL 140 - 440 10*3/uL [facility] RBC (Bld) [#/Vol] 4.36 10*6/uL 3.80 - 5.2 0 10*6/uL [facility] WBC (Bld) [#/Vol] 8.7 10*3/uL 3.6 - 10.7 10*3/uL [facility] IDNon 03-13-2024 IDN The patient is Moderately Stable - Low risk of patient condition declining or worsening The patient's goals for the shift include remain The clinical goals for the shift include remain afebrile Normal [facility] IDN The patient is Moderately Stable - Low risk of patient condition declining or worsening The patient's goals for the shift include remain The clinical goals for the shift include remain afebrile Normal [facility] Laboratory - Chemistry and C hemistry - challengeon 03-13-2024 Glucose [Mass/Vol] 230 mg/dL High 70 - 100 mg/dL [facility] Glucose [Mass/Vol] 162 mg/dL High 70 - 100 mg/dL [facility] Glucose [Mass/Vol] 92 mg/dL 70 - 100 mg/dL [facility] Glucose [Mass/Vol] 91 mg/dL 70 - 100 mg/dL [facility] No Panel Informationon 03-13 Interpretation and review of laboratory results Abnormal [facility] Performed by: [facility], [address] [place], [place] [id number] CLIA ID: [id number] [facility] Interpretation and review of laboratory results Abnormal [facility] Performed by: [facility], [address] [place] [address] CLIA ID: [id number] [facility] Interpretation and review of laboratory results Normal [facility] Performed by: [facility], [address] [place] [address] CLIA ID: [id number] [facility] Interpretation and review of laboratory results Normal [facility] Performed by: [facility], [address] [place] [address] CLIA ID: [id number] [facility] Progress Noteon 03-13-2024 Progress Note Notified of [...] labor. Will continue to monitor closely. Savanah Stevensonton, 03/13/2024 11:23 PM [place] more cramping. 1cm dilated. Reportedly was 1cm [...] calls on pain. Keep in [facility]. Savanah Gerald, 03/14/2024 4:09 AM Normal [facility] Progress Note Temperature of 100.4 F [...] (97.9 ?F) (Oral) Resp 16 Normal [facility] Progress Note ---- -------- Attestation signed [...] infection. Primary patient of Edouard Paulson/Prachi in [place]. Alerted her RN today to continue temp [...] [place] secondary to blood noted; transported to [facility] - in triage, SSE showed gross rupture of membranes with nitrazine positive, ferning negative and visually closed - Admitted for further observation with latency antibiotics and steroids - Plan for delivery at 34 weeks or if indicated sooner for labor, infection, or N (more content not included)... [facility] Consulton 03-12-2024 Consult Consult by Neonatology [...] from NICU Potential need for transfer to [facility] if needs esclation of care, [...] she delivers/is discharged. Paola Cole MD Normal [facility] Laboratory - Chemistry and C hemistry - challengeon 03-12-2024 Glucose [Mass/Vol] 163 mg/dL High 70 - 100 mg/dL [facility] Glucose [Mass/Vol] 128 mg/dL High 70 - 100 mg/dL [facility] Glucose [Mass/Vol] 134 mg/dL High 70 - 100 mg/dL [facility] Glucose [Mass/Vol] 104 mg/dL High 70 - 100 mg/dL [facility] No Panel Informationon 03-12 Interpretation and review of laboratory results Abnormal [facility] Performed by: [facility] [email or web address] [facility], [address] [place] [address] CLIA ID: [id number] [facility] Interpretation and review of laboratory results Abnormal [facility] Performed by: [facility], [address] [place] [address] CLIA ID: [id number] [facility] Interpretation and review of laboratory results Abnormal [facility] Performed by: [facility], [address] [place] [address] CLIA ID: [id number] [facility] Interpretation and review of laboratory results Abnormal [facility], [address] [place] [address], [place] [address] CLIA ID: [id number] [facility] Progress Noteon 03-12-2024 Progress Note ---- -------- [...] signs of infection. Primary patient of Edouard Paulson/Bettyeaura I spent 30 minutes in the visit [...] Juliana Nguyen DO 500 mg at 03/11/24 9039 calcium gluconate 10 % injection 1 g [...] anhydramnios; ROM rule out was deferred in [place] secondary to blood noted; transported to [facility] - in triage, SSE showed gross [...] diet - Dexcom in place, share code [id number] - Continue to monitor BGTs fasting and 1 codi (more content not included)... Normal [facility] 42on 03-11-2024 42 In to visit [...] options for home going pump; pt has [employer] insurance. Availability of LC for NICU and reviewed. [facility] handout Your NICU Baby given and reviewed. Encouraged to watch videos from [employer] to support her goals. Resource numbers given for [facility] dept and [facility] dept. Encouraged to call with any questions / concerns. Pt receptive to my visit and education. Denies questions at this time. Normal [facility] CARECOORDon 03-11-2024 [facility] Hospital day 6 at 30 /2 weeks. Anhydramnios PPROM at 30/2 weeks referral. Voiced no needs or concerns. Normal [facility] Laboratory - Chemistry and C hemistry - challengeon 03-11-2024 Glucose [Mass/Vol] 104 mg/dL High 70 - 100 mg/dL [facility] Glucose [Mass/Vol] 91 mg/dL 70 - 100 mg/dL [facility] Glucose [Mass/Vol] 99 mg/dL 70 - 100 mg/dL [facility] Glucose [Mass/Vol] 88 mg/dL 70 - 100 mg/dL [facility] No Panel Informationon 03-11 Interpretation and review of laboratory results Abnormal [facility] Performed by: [facility], [address] [place] [address] CLIA ID: [id number] [facility] Interpretation and review of laboratory results Normal [facility] Performed by: [facility], [address] [place] [address] CLIA ID: [id number] [facility] Interpretation and review of laboratory results Normal [facility] Performed by: [facility], [address] [place] [address] CLIA ID: [id number] [facility] - Allen live intrauterine at 30w 2d in breech presentation - The amniotic fluid index is 1.3cm. There is no 2x2 pocket of fluid. - Biophysical profile, 12/08. (-2 for fluid) [facility] [email or web address] SYSTEM OBSTETRICS REPORT (Signed Final 03/11/2024 09:42 am) PATIENT INFO: ID #: [id number] : [birth year] (28 yrs)(F) Name: JOSE EDWARD Visit Date: 03/11/2024 09:07 am PERFORMED BY: Attending: Saumya Mancia Performed By: Jaquan Aguilar Referred By: JULIANA NGUYEN Location: [facility] IP Visit Type: Inpatient - Hospital SERVICE(S) PROVIDED: [place] w/out INGAT 93719 INDICATIONS: Oligohydramnios, third trimester, not O41.03X0 applicable [...] Electronically Signed Final Report 03/11/2024 09:42 am [facility] RADIOLOGY SYSTEM Saumya aMncia MD - 03/11/2024 OBSTETRICS REPORT (Signed Final 03/11/2024 09:42 am) PATIENT INFO: ID #: [id number] : [birth year] (28 yrs)(F) Name: JOSE EDWARD Visit Date: 03/11/2024 09:07 am PERFORMED BY: Attending: Saumya Mancia Performed By: Jaquan Aguilar Referred By: JULIANA NGUYEN Location: [facility] IP Visit Type: Inpatient - Hospital SERVICE(S) PROVIDED: [place]UREN w/out NST 08235 INDICATIONS: Oligohydramnios, third trimester, not O41.03X0 applicable [...] - Biophysical profile, 12/08. (-2 for fluid) [facility] Radiology Study observation (narrative) [facility] Interpretation and review of laboratory results Normal [facility] Performed by: [facility], [address] [place] [address] CLIA ID: [id number] [facility] Progress Noteon 03-11-2024 Progress Note Rn notified me that patient having contractions, feeling some pressure. SSE showed closed cervix, no bleeding noted on exam, posterior cervix. Cat I FHT. Will continue to monitor. ANA TOVAR DO 03/11/2024 12:28 PM Normal [facility] Progress Note ---- -------- Attestation signed by Saumya Mancia MD at 03/11/2024 2:51 PM M ATTENDING I have personally obtained a history and examined the patient with Dr. Nguyen. I agree with the assessment and plan as documented in the resident's note. The patient is a 28 y.o. 30w2d now HD#6, admitted for PPROM Pertinent Background: Transferred from [place] for PPROM. Gross rupture confirmed on admit and anhydramnios at OSH ultrasound. 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 We discussed the indication for delivery with [...] Positive LOF Negative Contractions Vitals: 03/10/24 0839 03/10/249 03/11/24 0022 03/11/24 0602 BP: 107/69 123/80 [...] day Juliana Nguyen DO 100 mg at 03/10/242104 ondansetron ODT (Zofran-ODT) disintegrating tablet 4 mg [...] prenata (more content not included)... Normal [facility] Progress Note Notified by RN of bleeding patient noticed while wiping and reports of abdominal tightening. FHT Cat I. No CTX on toco. FHT Cat I. SSE performed, cervix visually 1 cm, unchanged from prior exams. No bleeding noted, friability noted on os. Patient placed on monitor, IVF bolus given. Will continue to monitor closely. [facility] US BIOPHYSICAL PROFILE WO NON STRESS TESTINGon 03-11-2024 US BIOPHYSICAL PROFILE WO NON STRESS TESTING OBSTETRICS REPORT (Signed Final 03/11/2024 09:42 am) PATIENT INFO: ID #: [id number] : [birth year] (28 yrs)(F) Name: JOSE EDWARD Visit Date: 03/11/2024 09:07 am PERFORMED BY: Attending: Saumya Mancia Performed By: Jaquan Aguilar Referred By: JULIANA NGUYEN Location: [facility] IP Visit Type: Inpatient - Hospital SERVICE(S) PROVIDED: LAUREN w/out INGAT 22429 INDICATIONS: Oligohydramnios, third trimester, not O41.03X0 applicable [...] Observed Score: 68 F. Breathing: Observed BIOMETRY: GESTATIONAL AGE: Clinical [...] profile, 12/08. (-2 for fluid) Normal [facility] BLOOD TYPE AND SCREEN GELon 03-10-2024 ABO GROUPING O Normal [facility] Comment on above: Performed By: #### L [id number] ####Instructional Systems Designer: GYPSY DAY ([id number])[facility] ([facility])[address] [place] [address] RH TYPE IN BLOOD Positive Normal [facility] Comment on above: Performed By: #### L [id number] ####Instructional Systems Designer: GYPSY DAY ([id number])[facility] BLOOD [facility] ([facility])[address] [place] [address] Blood type and Crossmatch cheryl pollock (Bld)on 03-10-2024 ABO group Nom (Bld) O [facility] Blood group antibody screen GEL Ql Negative [facility] Ql (RBC) [facility] Laboratory - Chemistry and C hemistry - challengeon 03-10-2024 Glucose [Mass/Vol] 135 mg/dL High 70 - 100 mg/dL [facility] Glucose [Mass/Vol] 115 mg/dL High 70 - 100 mg/dL [facility] Glucose [Mass/Vol] 115 mg/dL High 70 - 100 mg/dL [facility] Glucose [Mass/Vol] 89 mg/dL 70 - 100 mg/dL [facility] No Panel Informationon 03-10 Interpretation and review of laboratory results Abnormal [facility] Performed by: [facility], [address] [place] [address] CLIA ID: [id number] [facility] Interpretation and review of laboratory results Abnormal [facility] Performed by: [facility] [email or web address] [facility], [address] [place] [address] CLIA ID: [id number] [facility] Interpretation and review of laboratory results Abnormal [facility] Performed by: [facility], [address] [place] [address] CLIA ID: [id number] [facility] Interpretation and review of laboratory results Normal [facility] Performed by: [facility], [address] [place] [address] CLIA ID: [id number] [facility] Progress Noteon 03-10-2024 Progress Note ---- -------- Attestation signed by Saumya Mancia MD at 03/10/2024 2:46 PM M ATTENDING I have personally obtained a history and examined the patient with Dr. Nguyen. I agree with the assessment and plan as documented in the resident's note. The patient is a 28 y.o. 30w1d now HD#5, admitted for PPROM Pertinent Background: Transferred from [place] for PPROM. Gross rupture confirmed on admit and anhydramnios at OSH ultrasound. 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 We discussed the indication for delivery with [...] facility showed (more content not included)... Normal [facility] Laboratory - Chemistry and C hemistry - challengeon 03-09-2024 Glucose [Mass/Vol] 177 mg/dL High 70 - 100 mg/dL [facility] Glucose [Mass/Vol] 172 mg/dL High 70 - 100 mg/dL [facility] Glucose [Mass/Vol] 94 mg/dL 70 - 100 mg/dL [facility] Glucose [Mass/Vol] 139 mg/dL High 70 - 100 mg/dL [facility] Glucose [Mass/Vol] 91 mg/dL 70 - 100 mg/dL [facility] No Panel Informationon 03-09 Interpretation and review of laboratory results Abnormal [facility] Performed by: [email or web address] [facility], [address] [place] [address] CLIA ID: [id number] [facility] Interpretation and review of laboratory results Abnormal [facility] Performed by: [facility], [address] [place] [address] CLIA ID: [id number] [facility] Interpretation and review of laboratory results Normal [facility] Performed by: [facility], [address] [place] [address] CLIA ID: [id number] [facility] Interpretation and review of laboratory results Abnormal [facility] Performed by: [facility], [address] [place] [address]164 CLIA ID: [id number] [facility] Interpretation and review of laboratory results Normal [facility] Performed by: [facility], [address] [place] [address]113 CLIA ID: [id number] [facility] Progress Noteon 03-09-2024 Progress Note ---- -------- Attestation signed by Saumya Mancia MD at 03/09/2024 10:57 AM [facility] ATTENDING I have personally obtained a history and examined the patient with Dr. Nguyen. I agree with the assessment and plan as documented in the resident's note. The patient is a 28 y.o. 30w0d now HD#4, admitted for PPROM Pertinent Background: Transferred from [place] for PPROM. Gross rupture confirmed on admit and anhydramnios at OSH ultrasound. 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 We discussed the indication for delivery with [...] Assessme (more content not included)... Normal [facility] Bacteria identified Cx Nom ( U)Ordered By: Karyn Ramírez on 03-08-2024 Interpretation and review of laboratory results Normal [facility] CARECOORDon 03-08-2024 [facility] Day 3; 29/6 weeks today; No concerns at this time; Pt states she is interested in the possibility of staying at the [facility] after delivery due to living approx. 2 hours away; patient and provided background check paperwork; will be faxed to [facility] referral line; Will consult for patient as pt would like to see prior to delivery Normal [facility] Laboratory - Chemistry and C hemistry - challengeon 03-08-2024 Glucose [Mass/Vol] 143 mg/dL High 70 - 100 mg/dL [facility] Glucose [Mass/Vol] 171 mg/dL High 70 - 100 mg/dL [facility] Glucose [Mass/Vol] 125 mg/dL High 70 - 100 mg/dL [facility] Glucose [Mass/Vol] 133 mg/dL High 70 - 100 mg/dL [facility] Laboratory - Microbiology an d Antimicrobial susceptibilityOrdered By: Karyn Ramírez on 03-08-2024 Bacteria identified Cx Nom (U) No growth (<1,000 CFU/mL) [facility] No Panel Informationon 03-08 Interpretation and review of laboratory results Abnormal [facility] Performed by: [facility], [address] [place] [address] CLIA ID: [id number] [facility] Interpretation and review of laboratory results Abnormal [facility] Performed by: [facility], [address] [place] [address] CLIA ID: [id number] [facility] Interpretation and review of laboratory results Abnormal [facility] Performed by: [facility], [address] [place] [address] CLIA ID: [id number] [facility] Interpretation and review of laboratory results Abnormal [facility]: [facility], [address] [place] [address], [place] [address] CLIA ID: [id number] [facility] Progress Noteon 03-08-2024 Progress Note Nutrition rescreen completed. Patient referred to the Dietitian due to gestational diabetes. YUN Pineda Normal [facility] Progress Note ---- -------- Attestation signed [...] at OSH ultrasound. 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 We discussed the indication for delivery with [...] anhydramnios; ROM rule out was deferred in [place] secondary to blood noted; transported to A (more content not included)... Normal [facility] S. agalactiae DNA EDUARDO+probe Ql (Unsp spec)on 03-08-2024 Group B Strep Screen Not detected Not Detected [facility] Interpretation and review of laboratory results Normal [facility] Methodology: real-ti me PCR [facility] Bacterial vaginosis and vagi nitis rRNA panel Probe (Vag fld)on 03-07-2024 Bacterial vaginosis Ql (Vag fld) [Interp] Not detected Not Detected [facility] C. glabrata DNA EDUARDO+probe Ql (Vag fld) Not detected Not Detected [facility] Keesha sp DNA EDUARDO+probe Ql (Vag fld) Not detected Not Detected [facility] Interpretation and review of laboratory results Normal [facility] T. vaginalis DNA EDUARDO+probe Ql (Vag fld) Not detected Not Detected [facility] Methodology: real-ti me PCR A negative result [...] sexual abuse or for other forensic purposes. [facility] CARECOORDon 03-07-2024 CARECOORD Date: 03/07/2024 Name: Jose Edward : 1995 [facility] Patient Information Primary Caregiver: Self Accompanied by/Relationship: S/O;Family Marital Status: Support System: SO/Family Gnosticist/Cultural Factors: Activities of Daily Living Communication: See [...] N/A Developmental Delay: N/A Children's Services: N/A [facility] CHLAMYDIA/GONORRHEAon 2023 CHLAMYDIA/GONORRHEA NEISSERIA GONORRHOEA E [...] specimen should be collected if clinically indicated. [facility] Comment on above: Performed By: #### L [id number] ####Instructional Systems Designer: GYPSY DAY ([id number])[facility] ([address] GROUP B STREP SCREEN BY PCRo n 03-07-2024 GROUP B STREP SCREEN BY PCR GROUP B STREP SCREEN BY PCR Reference Not Detected Not Detected ORDER COMMENTS: Methodology: real-time PCR Normal [facility] Comment on above: Performed By: #### L [id number] ####Instructional Systems Designer: GYPSY DAY ([id number])[facility] ([facility])[address] [place] [address] Laboratory - Chemistry and C hemistry - challengeon 03-07-2024 Glucose [Mass/Vol] 149 mg/dL High 70 - 100 mg/dL [facility] Glucose [Mass/Vol] 135 mg/dL High 70 - 100 mg/dL [facility] Glucose [Mass/Vol] 129 mg/dL High 70 - 100 mg/dL [facility] Glucose [Mass/Vol] 105 mg/dL High 70 - 100 mg/dL [facility] Glucose [Mass/Vol] 158 mg/dL High 70 - 100 mg/dL [facility] N. gonorrhoeae DNA EDUARDO+probe Ql (Cervical mucus)on 03-07-2024 C. trachomatis DNA EDUARDO+probe Ql (Unsp spec) Not detected Not Detected [facility] Interpretation and review of laboratory results Normal [facility] N gonorrhoeae, DNA Probe Not detected Not Detected [facility] Methodology: real-ti me PCR This test [...] specimen should be collected if clinically indicated. [facility] No Panel Informationon 03-07 Interpretation and review of laboratory results Abnormal [facility] Performed by: [facility], [address] [place] [address] CLIA ID: [id number] [facility] Interpretation and review of laboratory results Abnormal [facility] Performed by: [facility], [address] [place] [address] CLIA ID: [id number] [facility] 1. Allen live intrauterine at 29w 5d [...] above. 5. BPP is 6/8 for fluid. [employer] [facility]Y [facility] OBSTETRICS REPORT (Signed Final 03/07/2024 11:11 am) PATIENT INFO: ID #: [id number] : [birth year] (28 yrs)(F) Name: JOSE EDWARD Visit Date: 03/07/2024 09:36 am PERFORMED BY: Attending: Saumya Mancia Performed By: Allison Langley RDTN Referred By: JULIANA NGUYEN Location: [facility] IP Visit Type: Inpatient - Hospital SERVICE(S) [place] [address] BPP w/out NST 98191 INDICATIONS: Oligohydramnios, third trimester, not O41.03X0 applicable [...] Thoracic: Normal appear (more content not included)... [employer] [facility] Saumya Mancia MD - 03/07/2024 OBSTETRICS REPORT (Signed Final 03/07/2024 11:11 am) PATIENT INFO: ID #: [id number] : [birth year] (28 yrs)(F) Name: JOSE EDWARD Visit Date: 03/07/2024 09:36 am PERFORMED BY: Attending: Saumya Mancia Performed By: Allison Langley RDMS Referred By: JULIANA NGUYEN Location: [facility] Visit Type: Inpatient - Hospital SERVICE(S[place] [address] BPP w/out NST 67371 INDICATIONS: Oligohydramnios, third trimester, not O41.03X0 applicable [...] Normal appearance Interventr. Septum: Suboptimal views Cardiac Guadalupe: Normal appearance Diaphragm: Normal appearance 3 Vessel View: Normal appearance 3 V Trachea View: Suboptimal views IVC: Normal Appearance Crossing: Suboptimal views Abdomen Ventral Wall: Normal appearance Cord Insertion: Normal appearance Situs: Normal appearance Stomach: Nor (more content not included)... [employer] Interpretation and review of laboratory results Abnormal [facility] Performed by: [facility], [address] [place] [address] CLIA ID: [id number] [facility] Radiology Study observation (narrative) [facility] Interpretation and review of laboratory results Abnormal [facility] Performed by: [facility], [address] [facility] [address] CLIA ID: [id number] [facility] Interpretation and review of laboratory results Abnormal [facility] Performed by: [facility], [address] [facility] [address] CLIA ID: [id number] [facility] No Panel InformationOrdered By: Saumya Mancia on 03-07-2024 [facility] [employer] Work Phone: Nursing Noteon 03-07-2024 Nursing Note RN called to bedside at 0435, pt reporting feeling increased leakage of fluid. Denies cramping, contractions, or pain, but does state feeling pressure which has become more constant. Dr Boles aware. Pt instructed to notify RN immediately if pressure intensifies or if cramping / contractions occur. Normal [facility] Progress Noteon 03-07-2024 Progress Note ---- [...] at OSH ultrasound. 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 We discussed the indication for delivery with any signs of infection. We reviewed the recommendation for inpatient admission until delivery and plan for delivery at 34 weeks unless indicated sooner for labor, infection or NRFS. All questions answered. Continue latency antibiotics for 7 days total. BMZ #2 this evening S/p Mag for QUILTING MACHINE HELPER x >12 hrs total- now stopped NICU consult Understands baby in breech presentation and would be for if delivered 60 minutes spent in total floor time today for review of records, patient interview and exam, documentation and coordination of care with care teams. Saumya Mancia MD -------- Maternal Medicine Service Resident Progress Note 03/07/2024 6:44 AM 03/06/2024 Hospital Day: 2 Joseerin Edward, 28 y.o. 29w5d Patient has been [...] Pulse: 106 102 102 91 Resp: 16 16 Temp: 36.9 ?C (98.4 ?F) 36.6 [...] mg IntraVENous 4 times per day Juliana Nguyen DO 200 mL/hr at 03/07/243 2,000 mg at 03/07/24 020 Followed by [...] g 15 g Oral PRN Keiry Boles, lactated ringers infusion 125 mL/hr IntraVENous Continuous Dali Hall MD 125 mL/hr at 03/06/24 1730 125 mL/hr at 03/06/24 1730 magnesium sulfate 20 GM/500ML infusion 1 (more content not included)... Normal [facility] US BIOPHYSICAL PROFILE WO NON STRESS TESTINGon 03-07-2024 US BIOPHYSICAL PROFILE WO NON STRESS TESTING OBSTETRICS REPORT (Signed Final 03/07/2024 11:11 am) PATIENT INFO: ID #: [id number] : [birth year] (28 yrs)(F) Name: JOSE EDWARD Visit Date: 03/07/2024 09:36 am PERFORMED BY: Attending: Saumya Mancia Performed By: Allison Langley [facility] Referred By: JULIANA NGUYEN Location: [facility] IP Visit Type: Inpatient - Hospital SERVICE(S) PROVIDED: [place] [address] BPP w/out NST 55594 INDICATIONS: Oligohydramnios, third trimester, not O41.03X0 applicable [...] AGE: Clinical GERALD: 29w 5d GERALD: 05/18/24 / Today: 29w 3d GERALD: 05/20/24 Best: 29w [...] Normal appearance Interventr. Septum: Suboptimal views Cardiac Guadalupe: Normal appearance Diaphragm: Normal appearance 3 Vessel View: Normal appearance 3 V Trachea View: Suboptimal views IVC: Normal Appearance Crossing: Suboptimal views Abdomen Ventral Wall: Normal appearance Cord Insertion: Normal appearance Situs: Normal appearance Stomach: Normal appearance Liver: Normal appearance Lt Kidney: Normal appearance Rt Kidney: Normal appearance Bladder: N (more content not included)... Normal [facility] OB FOLLOW UP TRANSABDOMIN AL APPROACHon 03-07-2024 OB FOLLOW UP TRANSABDOMINAL APPROACH OBSTETRICS REPORT (Signed Final 03/07/2024 11:11 am) PATIENT INFO: ID #: [id number] : [birth year] (28 yrs)(F) Name: JOSE EDWARD Visit Date: 03/07/2024 09:36 am PERFORMED BY: Attending: Saumya Mancia Performed By: Allison Langley RDMS Referred By: JULIANA NGUYEN Location: [facility] IP Visit Type: Inpatient - Hospital SERVICE(S[place] [address] BP w/out [facility] [address] INDICATIONS: Oligohydramnios, third trimester, not O41.03X0 applicable [...] % 71 - 87 FL/AC: 21.9 % - Est. FW: 1412 gm 3 lb 2 oz 49 % GESTATIONAL AGE: Clinical GERALD: 29w 5d GEARLD: 05/18/24 U/S Today: 29w 3d GERALD: 05/20/24 [...] Normal appearance Interventr. Septum: Suboptimal views Cardiac Guadalupe: Normal appearance Diaphragm: Normal appearance 3 Vessel View: Normal appearance 3 V Trachea View: Suboptimal views IVC: Normal Appearance Crossing: Suboptimal views Abdomen Ventral Wall: Normal appearance Cord Insertion: Normal appearance Situs: Normal appearance Stomach: Normal appearance Liver: Normal appearance Lt Kidney: Normal appearance Rt Kidney: Normal appearance Bladder: N (more content not included)... Normal [facility] VAGINITIS PANEL MVP PCRon VAGINITIS PANEL [...] sexual abuse or for other forensic purposes. [facility] Comment on above: Performed By: #### L [id number] #### Instructional Systems Designer: GYPSY DAY ([id number]) [facility] ([address] BLOOD TYPE AND SCREEN GELon 03-06-2024 ABO GROUPING O [facility] Comment on above: Order Comment: HOLD. Specimen is valid for 3 days - nurse to verify valid specimen Performed By: #### L [id number] ####Instructional Systems Designer: GYPSY DAY ([id number])[facility] ([facility] [place] [address] RH TYPE IN BLOOD Positive Normal [facility] Comment on above: Order Comment: HOLD. Specimen is valid for 3 days - nurse to verify valid specimen Performed By: #### L [id number] ####Instructional Systems Designer: GYPSY DAY ([id number])[facility] ([facility] [place] [address] Blood type and Crossmatch pa phill (Bld)on 03-06-2024 ABO group Nom (Bld) O [facility] Blood group antibody screen GEL Ql Negative [facility] D Ag Ql (RBC) Positive [facility] h [facility] CBC (HEMOGRAM)on 03-06-2024 Erythrocyte distribution width (RBC) [Ratio] 13.9 % Normal 11.5-15.0 [facility] Comment on above: Performed By: #### L [id number] ####Instructional Systems Designer: GYPSY DAY ([id number])[facility])[address] [place] [address] Hematocrit (Bld) [Volume fraction] 41.8 % Normal 35.0-47.0 [facility] Comment on above: Performed By: #### L [id number] ####Instructional Systems Designer: GYPSY DAY ([id number])[facility])[address] [place] [address] Hemoglobin (Bld) [Mass/Vol] 14.1 g/dL Normal 11.7-16.0 [facility] Comment on above: Performed By: #### L [id number] ####Instructional Systems Designer: GYPSY DAY ([id number])[facility])[address] [place] [address] MCH (RBC) [Entitic mass] 30.4 pg Normal 26.0-34.0 [facility] Comment on above: Performed By: #### L [id number] ####Instructional Systems Designer: GYPSY DAY ([id number])[facility])[address] [place] [address] MCHC 33.7 % Normal 30.5-36.0 [facility] Comment on above: Performed By: #### L [id number] ####Instructional Systems Designer: GYPSY DAY ([id number])[facility])[address] [place] [address] MCV (RBC) [Entitic vol] 90.1 fL Normal 77.0-99.0 [facility] Comment on above: Performed By: #### L [id number] ####Instructional Systems Designer: GYPSY DAY ([id number])[facility])[address] [place] [address] Platelet mean volume (Bld) [Entitic vol] 9.8 fL Normal 9.0-12.7 [facility] Comment on above: Performed By: #### L [id number] ####Instructional Systems Designer: GYPSY DAY ([id number])[facility])[address] [place] [address] Platelets (Bld) [#/Vol] 311 10*3/uL Normal 140-440 [facility] Comment on above: Performed By: #### L [id number] ####Instructional Systems Designer: GYPSY DAY ([id number])[facility])[address] [place] [address] RBC (Bld) [#/Vol] 4.64 10*6/uL Normal 3.80-5.20 [facility] Comment on above: Performed By: #### L [id number] ####Instructional Systems Designer: GYPSY DAY ([id number])[facility])[address] [place] [address] WBC (Bld) [#/Vol] 15.2 10*3/uL High 3.6-10.7 [facility] Comment on above: Performed By: #### L [id number] ####Instructional Systems Designer: GYPSY DAY ([id number])[facility])[address] [place] [address] CBC panel Auto (Bld)on 03-06 Erythrocyte distribution width (RBC) [Ratio] 13.9 % 11.5 - 15.0 % [facility] Hematocrit (Bld) [Volume fraction] 41.8 % 35.0 - 47.0 % [facility] Hemoglobin (Bld) [Mass/Vol] 14.1 g/dL 11.7 - 16.0 g/dL [facility] Interpretation and review of laboratory results Abnormal [facility] MCH (RBC) [Entitic mass] 30.4 pg 26.0 - 34.[address] [facility] MCHC (RBC) [Mass/Vol] 33.7 % 30.5 - 36.0 % [facility] MCV (RBC) [Entitic vol] 90.1 fL 77.0 - 99.[address] [facility] Platelet mean volume (Bld) [Entitic vol] 9.8 fL 9.0 - 12.[address] [facility] Platelets (Bld) [#/Vol] 311 10*3/uL 140 - 440 10*3/uL [facility] RBC (Bld) [#/Vol] 4.64 10*6/uL 3.80 - 5.2 0 10*6/uL [facility] WBC (Bld) [#/Vol] 15.2 10*3/uL High 3.6 - 10.7 10*3/uL [facility] Laboratory - Chemistry and C hemistry - challengeon 03-06-2024 Glucose [Mass/Vol] 229 mg/dL High 70 - 100 mg/dL [facility] Glucose [Mass/Vol] 227 mg/dL High 70 - 100 mg/dL [facility] No Panel Informationon 03-06 Interpretation and review of laboratory results Abnormal [facility] Performed by: [facility] [employer] [facility], [address] [place] [address] CLIA ID: [id number] [facility] Interpretation and review of laboratory results Abnormal [facility] Performed by: [facility], [address] [place] [address] CLIA ID: [id number] [facility] Progress Noteon 03-06-2024 Progress Note ---- -------- Attestation signed by Saumya Mancia MD at 03/06/2024 6:43 PM [facility] Patient a direct admission from Transfer from [place]. Please see my other H&P attestation -------- Department of Obstetrics and Gynecology Labor and Delivery Triage Note CHIEF COMPLAINT: Anyhydramnios HISTORY OF PRESENT ILLNESS: The patient is a 28 y.o. 29w4d. Patient presents with a chief complaint as above and is being admitted for observation and BMZ + Magnesium. Patient reports she has been leaking for 3 weeks now. She was evaluated in [place] initially at that time with amnisure that [...] PROVIDER: Dr. Mancia DISPOSITION: Admit to L&D Normal [facility] URINE CULTUREon 03-06-2024 Bacteria identified Cx Nom (U) URINE CULTURE Reference No growth (<1,000 CFU/mL) [ S = SUSCEPTIBLE R = RESISTANT I = INTERMEDIATE S-DD = Susceptible-dose dependent NS = Non-susceptible NO = No Interpretation ] [facility] Comment on above: Performed By: #### L [id number] ####Instructional Systems Designer: GYPSY DAY ([id number])[facility] ([facility])[address] [place] [address] Absolute lymphocyte countOrd ered By: Julianna Villareal on 10-25-2023 Lymphocytes Auto (Unsp spec) [#/Vol] 2.65 10*3/uL 0.83-4.51 [facility] Automated lymphocyte count a s percentage of total leukocytesOrdered By: Julianna Villareal on 10-25-2023 Lymphocytes/100 WBC Auto (Unsp spec) 27.5 % 19-41 [facility] Basophil percentageOrdered B y: Julianna Villareal on 10-25-2023 Basophils/100 WBC (Bld) 0.4 % 0-1 [facility] Eosinophils/100 WBC (Bld) 1.6 % 0-5 [facility] Hemoglobin (Bld) [Mass/Vol] 13.4 g/dL 12.0-15.0 [facility] Monocytes/100 WBC (Bld) 7.3 % 0-10 [facility] Neutrophils (Bld) [#/Vol] 6.1 10*3/uL 2.0-7.7 [facility] Neutrophils/100 WBC (Bld) 62.8 % 47-70 [facility] WBC (Bld) [#/Vol] 9.6 10*3/uL 4.4-11.0 [facility] Culture, urineOrdered By: Lul Bauer on 10-25-2023 Bacteria identified Cx Nom (U) Culture exhibits no growth. [facility] Determination of erythrocyte mean corpuscular volume (MCV)Ordered By: Julianna Villareal on 10-25-2023 MCV (RBC) [Entitic vol] 88.4 fL 81-99 [facility] Erythrocyte distribution wid th ratioOrdered By: Julianna Villareal on 10-25-2023 Erythrocyte distribution width (RBC) [Ratio] 13.9 % 11.6-14.6 [facility] Erythrocyte distribution wid th standard deviationOrdered By: Julianna Villareal on 10-25-2023 Erythrocyte distribution width (RBC) [Entitic vol] 44.7 fL 35.1-43.9 [facility] HIV 1 and HIV-2 antibody ass ay with HIV-1 p24 antigen detectionOrdered By: Julianna Villareal on 10-25-2023 HIV 1+2 Ab+HIV1 p24 Ag IA Ql Non-Reactive Nonreactive [facility] Hematocrit Auto (Bld) [Volum e fraction]Ordered By: Julianna Villareal on 10-25-2023 Hematocrit (Bld) [Volume fraction] 40.5 % 37-47 [facility] Immature granulocytes/100 WB C Auto (Bld)Ordered By: Julianna Villareal on 10-25-2023 Immature granulocytes/100 WBC (Bld) 0.400 % 0.0-0.9 [facility] Comment on above: IG% - Immature Granu locytes (promyelocytes, myelocytes and metamyelocytes) > 1% indicates that a LEFT SHIFT is Present. Laboratory - Chemistry and C hemistry - challengeon 10-25-2023 Glucose Ql (U) Negative [facility] Laboratory - Hematology and Cell countsOrdered By: Julianna Villareal on 10-25-2023 MCH (RBC) [Entitic mass] 29.3 pg 27.0-32.0 [facility] MCHC (RBC) [Mass/Vol] 33.1 g/dL 32-36 [facility] Nucleated RBC/100 WBC (Bld) [Ratio] 0 % 0-5 [facility] Platelet mean volume (Bld) [Entitic vol] 8.7 fL 6.2-12.0 [facility] Platelets (Bld) [#/Vol] 286 10*3/uL 150-450 [facility] Laboratory - Urinalysison Protein Ql (U) Negative [facility] No Panel InformationOrdered By: Julianna Villareal on 04-24-2024 Hepatitis B Surface Antigen Non-Reactive Nonreactive [facility] Hepatitis C Antibody Non-Reactive Nonreactive [facility] Comment on above: Non Reactive: < 0.8 Equivocal: >/= 0.8 to < 1.0 Reactive: >/= 1.0The CDC requires that a reactive/equivocal HCV antibody result be sent out for confirmation. HCV Quant by PCR testing. Miscellaneous Test Comment SEE SCANNED REPORT [facility] Rubella IgG Antibody Reactive Nonreactive [facility] Comment on above: Antibody Results Int erpretation of Immune Status Non Reactive Presumed Non-Immune Equivocal Equivocal Reactive Presumed Immune RBC Auto (Bld) [#/Vol]Ordere d By: Julianna Villareal on 10-25-2023 RBC (Bld) [#/Vol] 4.58 10*6/uL 4.2-5.4 [facility] Serum Treponema species anti body detectionOrdered By: Julianna Villareal on 10-25-2023 Treponema sp Ab Ql (S) Non-Reactive [facility] Whole blood hemoglobin A1c/t otal hemoglobin ratio (mass fraction)Ordered By: Venessa Newby on 10-25-2023 HbA1c (Bld) [Mass fraction] 5.1 % 3.8-5.6 [facility] Comment on above: Normal < 5.7 % Predi abetic 5.7 - 6.4 % Diabetic >or= 6.5 % Please note range changes. Cervical or vagninal specime n microscopic examination by cytology stain (reported asOrdered By: Venessa Newby on 10-12-2023 Cytology report Cyto stain Doc (Cvx/Vag) Comment . [facility] Comment on above: The Pap smear is [...] rRNA EDUARDO+probe Ql (Unsp spec) Negative Negative [facility] Laboratory - CytologyOrdered By: Venessa Newby on 10-12-2023 Hedis Manager Cyto stain Nom (Cvx/Vag) [ID] Comment . [facility] Comment on above: Luther Dobson totechnologist (ASCP) Laboratory - Microbiology an d Antimicrobial susceptibilityOrdered By: Julianna Villareal on 10-12-2023 N. gonorrhoeae DNA EDUARDO+probe Ql (Unsp spec) Negative Negative [facility] Comment on above: Performed at: =G - [facility] [address] [id number] Director: Machelle Ambrocio MD, Phone: [phone] Laboratory - Miscellaneous t estsOrdered By: Venessa Newby on 10-12-2023 Service comment (Unsp spec) [Interp] . . [facility] No Panel InformationOrdered By: Venessa Newby on 10-12-2023 Human Papillomavirus Screen Comment . [facility] Comment on above: The HPV DNA reflex c riteria were not met with this specimenresult therefore, no HPV testing was performed.Performed at: [facility] [id number] [place], [place] [id number] Director: Washignton Calvo MD, Phone: [phone] at: WB - [facility] [address] [id number] Director: Machelle Ambrocio MD, Phone: [phone] Thin prep Papanicolaou smear with manual screeningOrdered By: Venessa Newby on 10-12-2023 Thin prep Papanicolaou smear with manual screening Comment . [facility] Comment on above: NEGATIVE FOR INTRAEP ITHELIAL LESION OR MALIGNANCY. This liquid based Th inPrep(R) pap test was screened withthe use of an image guided system. No Panel InformationOrdered By: Yola Schaffer on 09-29-2023 Estradiol (E2) Level 911.3 pg/mL [facility] Comment on above: NORMAL REFERENCE [...] Schaffer on 09-29-2023 HCG ( test) [place]l [address] mIU/mL <4 [facility] Comment on above: hCG levels with Gest ational AgeGestational Age hCG mIU/mL (IU/L)0.2 - 1 week 5 - 501-2 weeks 50 - 5002-3 weeks 100 - 95873-9 weeks 500 - 191126-8 weeks 1000 - 558645-9 weeks 66302 - 100,0006-8 weeks 77961 - 200,0002-3 months 55544 - 100,000 Serum or plasma progesterone measurement (mass/volume)Ordered By: Yola Schaffer on 09-29-2023 Progesterone [Mass/Vol] 51.51 ng/mL See Comment [facility] Comment on above: Progesterone Referen ce Table: UNITS Female: Follicular 0.15 - 1.40 ng/mL Luteal 3.34 - 25.56 ng/mL Mid-luteal 4.44 - 28.03 ng/mL Postmenopausal 0.0 - 0.73 ng/mL : 1st Trimester 11.22 - 90.00 ng/mL 2nd Trimester 25.55 - 89.40 ng/mL 3rd Trimester 48.40 -422.50 ng/mL No Panel InformationOrdered By: Yola Schaffer on 09-22-2023 Estradiol (E2) Level 839.2 pg/mL [facility] Comment on above: NORMAL REFERENCE RAN GES FEMALE FOLLICULAR 21.4 - 164.8 pg/mL MID-CYCLE PEAK 49.9 - 367.2 pg/mL LUTEAL 40.2 - 259.0 pg/mL POST-MENOPAUSAL ON MHT <11.0 - 462.1 pg/mL NOT ON MHT <11.0 - 58.3 pg/mL MALE <11.0 - 52.5 pg/mL NOTE:[employer] HAS CONFIRMED THE DRUG FULVETRANT (FASLODEX) MAY CAUSE FALSELY ELEVATED ESTRADIOL RESULTS WHEN USING THIS TEST METHOD. IF PATIENT IS TAKING FULVESTRANT AN ALTERNATIVE METHOD SHOULD BE USED TO DETERMINE ESTRADIOL CONCENTRATION. Serum or plasma choriogonado tropin detectionOrdered By: Yola Schaffer on 09-22-2023 HCG ( test) Ql 2686 mIU/mL <4 [facility] Comment on above: hCG levels with Gest ational AgeGestational Age hCG mIU/mL (IU/L)0.2 - 1 week 5 - 501-2 weeks 50 - 5002-3 weeks 100 - 38745-7 weeks 500 - 829746-4 weeks 1000 - 762235-2 weeks 95695 - 100,0006-8 weeks 64536 - 200,0002-3 months 82008 - 100,000 Serum or plasma progesterone measurement (mass/volume)Ordered By: Yola Schaffer on 09-22-2023 Progesterone [Mass/Vol] 61.23 ng/mL See Comment [facility] Comment on above: Progesterone Referen ce Table: [...] Auto (Unsp spec) [#/Vol] 2.66 10*3/uL 0.83-4.51 [facility] Automated lymphocyte count a s percentage of total leukocytesOrdered By: Karlos Miller on 09-19-2023 Lymphocytes/100 WBC Auto (Unsp spec) 16.6 % 19-41 [facility] Basophil percentageOrdered B y: Karlos Miller on 09-19-2023 Basophil percentage 0 SEEN /hpf 0-5 [facility] Basophils/100 WBC (Bld) 0.3 % 0-1 [facility] Chloride [Moles/Vol] 106 mmol/L 98-107 [facility] Eosinophils/100 WBC (Bld) 0.2 % 0-5 [facility] Glucose [Mass/Vol] 116 mg/dL 74-106 [facility] Comment on above: Fasting Glucose resu lt from 100 to 125 mg/dL suggests IMPAIRED HOMEOSTASIS per A.D.A. criteria. Hemoglobin (Bld) [Mass/Vol] 13.7 g/dL 12.0-15.0 [facility] Monocytes/100 WBC (Bld) 4.6 % 0-10 [facility] Neutrophils (Bld) [#/Vol] 12.4 10*3/uL 2.0-7.7 [facility] Neutrophils/100 WBC (Bld) 77.7 % 47-70 [facility] Potassium [Moles/Vol] 3.3 mmol/L 3.5-5.1 [facility] Sodium [Moles/Vol] 140 mmol/L 136-145 [facility] WBC (Bld) [#/Vol] 16.0 10*3/uL 4.4-11.0 [facility] Bilirubin Test strip Ql (U)O rdered By: Karlos Miller on 09-19-2023 Bilirubin Ql (U) Negative Negative [facility] Determination of erythrocyte mean corpuscular volume (MCV)Ordered By: Karlos Miller on 09-19-2023 MCV (RBC) [Entitic vol] 90.3 fL 81-99 [facility] Erythrocyte distribution wid th ratioOrdered By: Karlos Miller on 09-19-2023 Erythrocyte distribution width (RBC) [Ratio] 13.7 % 11.6-14.6 [facility] Erythrocyte distribution wid th standard deviationOrdered By: Karlos Miller on 09-19-2023 Erythrocyte distribution width (RBC) [Entitic vol] 45.1 fL 35.1-43.9 [facility] Hematocrit Auto (Bld) [Volum e fraction]Ordered By: Karlos Miller on 09-19-2023 Hematocrit (Bld) [Volume fraction] 42.8 % 37-47 [facility] Immature granulocytes/100 WB C Auto (Bld)Ordered By: Karlos Miller on 09-19-2023 Immature granulocytes/100 WBC (Bld) 0.600 % 0.0-0.9 [facility] Comment on above: IG% - Immature Granu locytes (promyelocytes, myelocytes and metamyelocytes) > 1% indicates that a LEFT SHIFT is Present. Ketones Test strip Ql (U)Ord ered By: Karlos Miller on 09-19-2023 Ketones Ql (U) Negative Negative [facility] Laboratory - Chemistry and C hemistry - challengeOrdered By: Karlos Miller on 09-19-2023 CO2 [Moles/Vol] 23.0 mmol/L 21.0-32.0 [facility] Urea nitrogen/Creatinine [Mass ratio] 12.3 mg/mg 10-20 [facility] Laboratory - Hematology and Cell countsOrdered By: Karlos Miller on 09-19-2023 MCH (RBC) [Entitic mass] 28.9 pg 27.0-32.0 [facility] MCHC (RBC) [Mass/Vol] 32.0 g/dL 32-36 [facility] Nucleated RBC/100 WBC (Bld) [Ratio] 0 % 0-5 [facility] Platelet mean volume (Bld) [Entitic vol] 8.7 fL 6.2-12.0 [facility] Platelets (Bld) [#/Vol] 312 10*3/uL 150-450 [facility] Mucus LM Ql (Urine sed)Order ed By: Karlos Miller on 09-19-2023 Mucus Ql (Urine sed) 0 SEEN /hpf [facility] Nitrite Test strip Ql (U)Ord ered By: Karlos Miller on 09-19-2023 Nitrite Ql (U) Negative Negative [facility] No Panel InformationOrdered By: Karlos Miller on 09-19-2023 Urine RBC 5-10 SEEN /hpf 0-5 [facility] Estimated Creatinine Clearance Calc 126.10 ml/min [facility] Estimated GFR (MDRD) Amer 141 mL/min >60 [facility] Comment on above: GFR Calc Estimated GFR (MDRD) Non-Af Amer 117 mL/min >60 [facility] Comment on above: Non- GFR Calc Protein Test strip Ql (U)Ord ered By: Karlos Miller on 09-19-2023 Protein Ql (U) Negative Negative [facility] RBC Auto (Bld) [#/Vol]Ordere d By: Karlos Miller on 09-19-2023 RBC (Bld) [#/Vol] 4.74 10*6/uL 4.2-5.4 [facility] Serum or plasma calcium shannon urement (mass/volume)Ordered By: Karlos Miller on 09-19-2023 Calcium [Mass/Vol] 8.7 mg/dL 8.5-10.1 [facility] Serum or plasma choriogonado tropin detectionOrdered By: Karlos Miller on 09-19-2023 HCG ( test) Ql 1366 mIU/mL <4 [facility] Comment on above: hCG levels with Gest ational AgeGestational Age hCG mIU/mL (IU/L)0.2 - 1 week 5 - 501-2 weeks 50 - 5002-3 weeks 100 - 20637-8 weeks 500 - 913637-6 weeks 1000 - 226455-8 weeks 72537 - 100,0006-8 weeks 24540 - 200,0002-3 months 09536 - 100,000 Serum or plasma creatinine m easurement (mass/volume)Ordered By: Karlos Miller on 09-19-2023 Creatinine [Mass/Vol] 0.65 mg/dL 0.55-1.02 [facility] Comment on above: The validity of the calculated GFR & GFRAA in patients over 70 years has not been determined. Clinical correlation is essential. Serum or plasma urea nitroge n measurement (mass/volume)Ordered By: Karlos Miller on 09-19-2023 Urea nitrogen [Mass/Vol] 8 mg/dL 7-18 [facility] Squamous epithelial cells de tection in urine sediment by light microscopyOrdered By: Karlos Miller on 09-19-2023 Epithelial cells.squamous LM Ql (Urine sed) 0 SEEN /hpf 5-10 [facility] Thin prep Papanicolaou smear with manual screeningOrdered By: Karlos Miller on 09-19-2023 Thin prep Papanicolaou smear with manual screening 11 5-15 [facility] Urine blood detectionOrdered By: Karlos Miller on 09-19-2023 RBC Ql (U) 50 /ul Negative [facility] Urine clarityOrdered By: Jen Miller on 09-19-2023 Clarity (U) Sl. Cloudy Clear [facility] Urine color determinationOrd ered By: Karlos Miller on 09-19-2023 Color (U) Yellow Yellow [facility] Urine glucose detectionOrder ed By: Karlos Miller on 09-19-2023 Glucose Ql (U) Normal mg/dl Normal [facility] Urine leukocyte esterase det ection by dipstickOrdered By: Karlos Miller on 09-19-2023 Leukocyte esterase Test strip Ql (U) Negative Negative [facility] Urine pHOrdered By: Karlos stanford on 09-19-2023 pH (U) 8.0 [pH] 5.0 - 8.0 [facility] Urine sediment bacteria coun t by microscopy (number/high power field)Ordered By: aKrlos Miller on 09-19-2023 Bacteria LM.HPF (Urine sed) [#/Area] 0 /[HPF] None Seen [facility] Urine specific gravity measu rementOrdered By: Karlos Miller on 09-19-2023 Specific gravity (U) [Rel density] 1.010 1.002-1.030 [facility] Urine urobilinogen measureme ntOrdered By: Karlos Miller on 09-19-2023 Urobilinogen Ql (U) Normal mg/dl Normal [facility] No Panel InformationOrdered By: Yola Schaffer on 09-15-2023 Estradiol (E2) Level 998.4 pg/mL [facility] Comment on above: NORMAL REFERENCE [...] HCG ( test) Ql 321 mIU/mL <4 [facility] Comment on above: hCG levels with Gest ational AgeGestational Age hCG mIU/mL (IU/L)0.2 - 1 week 5 - 501-2 weeks 50 - 5002-3 weeks 100 - 03448-4 weeks 500 - 979937-0 weeks 1000 - 734277-4 weeks 54986 - 100,0006-8 weeks 91455 - 200,0002-3 months 05718 - 100,000 Serum or plasma progesterone measurement (mass/volume)Ordered By: Yola Schaffer on 09-15-2023 Progesterone [Mass/Vol] 53.34 ng/mL See Comment [facility] Comment on above: Progesterone Referen ce Table: UNITS Female: Follicular 0.15 - 1.40 ng/mL Luteal 3.34 - 25.56 ng/mL Mid-luteal 4.44 - 28.03 ng/mL Postmenopausal 0.0 - 0.73 ng/mL : 1st Trimester 11.22 - 90.00 ng/mL 2nd Trimester 25.55 - 89.40 ng/mL 3rd Trimester 48.40 -422.50 ng/mL No Panel InformationOrdered By: Yola Schaffer on 09-13-2023 Estradiol (E2) Level 631.1 pg/mL [facility] Comment on above: NORMAL REFERENCE [...] HCG ( test) Ql 142 mIU/mL <4 [facility] Comment on above: hCG levels with Gest ational AgeGestational Age hCG mIU/mL (IU/L)0.2 - 1 week 5 - 501-2 weeks 50 - 5002-3 weeks 100 - 04394-6 weeks 500 - 921819-7 weeks 1000 - 012230-2 weeks 99968 - 100,0006-8 weeks 46828 - 200,0002-3 months 48599 - 100,000 Serum or plasma progesterone measurement (mass/volume)Ordered By: Yola Schaffer on 09-13-2023 Progesterone [Mass/Vol] 68.72 ng/mL See Comment [facility] Comment on above: Progesterone Referen ce Table: [...] on 09-13-2023 TSH Qn 1.89 uIU/mL 0.358-3.74 [facility] Serum or plasma choriogonado tropin detectionOrdered By: Yola Schaffer on 2023 HCG ( test) Ql 86 mIU/mL <4 [facility] Comment on above: hCG levels with Gest ational AgeGestational Age hCG mIU/mL (IU/L)0.2 - 1 week 5 - 501-2 weeks 50 - 5002-3 weeks 100 - 67192-2 weeks 500 - 807251-7 weeks 1000 - 719659-3 weeks 49179 - 100,0006-8 weeks 93464 - 200,0002-3 months 88534 - 100,000 Serum or plasma progesterone measurement (mass/volume)Ordered By: Yola Schaffer on 2023 Progesterone [Mass/Vol] 73.77 ng/mL See Comment [facility] Comment on above: Progesterone Referen ce Table: UNITS Female: Follicular 0.15 - 1.40 ng/mL Luteal 3.34 - 25.56 ng/mL Mid-luteal 4.44 - 28.03 ng/mL Postmenopausal 0.0 - 0.73 ng/mL : 1st Trimester 11.22 - 90.00 ng/mL 2nd Trimester 25.55 - 89.40 ng/mL 3rd Trimester 48.40 -422.50 ng/mL No Panel InformationOrdered By: Yola Schaffer on 09-06-2023 Estradiol (E2) Level 586.2 pg/mL [facility] Comment on above: NORMAL REFERENCE [...] 09-06-2023 Progesterone [Mass/Vol] 66.90 ng/mL See Comment [facility] Comment on above: Progesterone Referen ce Table: UNITS Female: Follicular 0.15 - 1.40 ng/mL Luteal 3.34 - 25.56 ng/mL Mid-luteal 4.44 - 28.03 ng/mL Postmenopausal 0.0 - 0.73 ng/mL : 1st Trimester 11.22 - 90.00 ng/mL 2nd Trimester 25.55 - 89.40 ng/mL 3rd Trimester 48.40 -422.50 ng/mL No Panel InformationOrdered By: Yola Schaffer on 08-25-2023 Estradiol (E2) Level 1350.2 pg/mL [facility] Comment on above: NORMAL REFERENCE RAN GES FEMALE FOLLICULAR 21.4 - 164.8 pg/mL MID-CYCLE PEAK 49.9 - 367.2 pg/mL LUTEAL 40.2 - 259.0 pg/mL POST-MENOPAUSAL ON MHT <11.0 - 462.1 pg/mL NOT ON MHT <11.0 - 58.3 pg/mL MALE <11.0 - 52.5 pg/mL NOTE:[employer] HAS CONFIRMED THE DRUG FULVETRANT (FASLODEX) MAY CAUSE FALSELY ELEVATED ESTRADIOL RESULTS WHEN USING THIS TEST METHOD. IF PATIENT IS TAKING FULVESTRANT AN ALTERNATIVE METHOD SHOULD BE USED TO DETERMINE ESTRADIOL CONCENTRATION. Luteinizing Hormone 11.8 mIU/mL [facility] Comment on above: NORMAL REFERENCE RAN GES FEMALE FOLLICULAR 1.9 - 26.2 mIU/mL MID-CYCLE PEAK 22.8 - 76.1 mIU/mL LUTEAL 0.6 - 16.6 mIU/mL POST-MENOPAUSAL ON MHT 1.1 - 52.4 mIU/mL NOT ON MHT 8.6 - 61.8 mIU/mL MALE 1.2 - 10.6 mIU/mL Serum or plasma progesterone measurement (mass/volume)Ordered By: Yola Schaffer on 08-25-2023 Progesterone [Mass/Vol] 0.27 ng/mL See Comment [facility] Comment on above: Progesterone Referen ce Table: UNITS Female: Follicular 0.15 - 1.40 ng/mL Luteal 3.34 - 25.56 ng/mL Mid-luteal 4.44 - 28.03 ng/mL Postmenopausal 0.0 - 0.73 ng/mL : 1st Trimester 11.22 - 90.00 ng/mL 2nd Trimester 25.55 - 89.40 ng/mL 3rd Trimester 48.40 -422.50 ng/mL No Panel InformationOrdered By: Yola Schaffer on 08-23-2023 Estradiol (E2) Level 104.4 pg/mL [facility] Comment on above: NORMAL REFERENCE [...] DETERMINE ESTRADIOL CONCENTRATION. Luteinizing Hormone 7.7 mIU/mL [facility] Comment on above: NORMAL REFERENCE RAN GES FEMALE FOLLICULAR 1.9 - 26.2 mIU/mL MID-CYCLE PEAK 22.8 - 76.1 mIU/mL LUTEAL 0.6 - 16.6 mIU/mL POST-MENOPAUSAL ON MHT 1.1 - 52.4 mIU/mL NOT ON MHT 8.6 - 61.8 mIU/mL MALE 1.2 - 10.6 mIU/mL Serum or plasma progesterone measurement (mass/volume)Ordered By: Yola Schaffer on 08-23-2023 Progesterone [Mass/Vol] ng/mL See Comment [facility] Comment on above: Progesterone Referen ce Table: UNITS Female: Follicular 0.15 - 1.40 ng/mL Luteal 3.34 - 25.56 ng/mL Mid-luteal 4.44 - 28.03 ng/mL Postmenopausal 0.0 - 0.73 ng/mL : 1st Trimester 11.22 - 90.00 ng/mL 2nd Trimester 25.55 - 89.40 ng/mL 3rd Trimester 48.40 -422.50 ng/mL No Panel InformationOrdered By: Yola Schaffer on 08-21-2023 Estradiol (E2) Level 30.4 pg/mL [facility] Comment on above: NORMAL REFERENCE [...] DETERMINE ESTRADIOL CONCENTRATION. Luteinizing Hormone 21.7 mIU/mL [facility] Comment on above: NORMAL REFERENCE RAN GES FEMALE FOLLICULAR 1.9 - 26.2 mIU/mL MID-CYCLE PEAK 22.8 - 76.1 mIU/mL LUTEAL 0.6 - 16.6 mIU/mL POST-MENOPAUSAL ON MHT 1.1 - 52.4 mIU/mL NOT ON MHT 8.6 - 61.8 mIU/mL MALE 1.2 - 10.6 mIU/mL Serum or plasma progesterone measurement (mass/volume)Ordered By: Yola Schaffer on 08-21-2023 Progesterone [Mass/Vol] ng/mL See Comment [facility] Comment on above: Progesterone Referen ce Table: UNITS Female: Follicular 0.15 - 1.40 ng/mL Luteal 3.34 - 25.56 ng/mL Mid-luteal 4.44 - 28.03 ng/mL Postmenopausal 0.0 - 0.73 ng/mL : 1st Trimester 11.22 - 90.00 ng/mL 2nd Trimester 25.55 - 89.40 ng/mL 3rd Trimester 48.40 -422.50 ng/mL No Panel InformationOrdered By: Yola Schaffer on 08-15-2023 Estradiol (E2) Level 42.6 pg/mL [facility] Comment on above: NORMAL REFERENCE [...] ESTRADIOL CONCENTRATION. Follicle Stimulating Hormone 5.0 mIU/mL [facility] Comment on above: NORMAL REFERENCE RAN GES FEMALE FOLLICULAR 2.3 - 12.6 mIU/mL MID-CYCLE PEAK 5.2 - 17.5 mIU/mL LUTEAL 1.7 - 12.9 mIU/mL POST-MENOPAUSAL ON MHT 5.9 - 72.8 mIU/mL NOT ON MHT 12.7 - 132.2 mlU/mL MALE 0.7 - 10.8 mIU/mL Luteinizing Hormone 4.9 mIU/mL [facility] Comment on above: NORMAL REFERENCE RAN GES FEMALE FOLLICULAR 1.9 - 26.2 mIU/mL MID-CYCLE PEAK 22.8 - 76.1 mIU/mL LUTEAL 0.6 - 16.6 mIU/mL POST-MENOPAUSAL ON MHT 1.1 - 52.4 mIU/mL NOT ON MHT 8.6 - 61.8 mIU/mL MALE 1.2 - 10.6 mIU/mL Serum or plasma progesterone measurement (mass/volume)Ordered By: Yola Schaffer on 08-15-2023 Progesterone [Mass/Vol] 0.21 ng/mL See Comment [facility] Comment on above: Progesterone Referen ce Table: [...] on 08-15-2023 TSH Qn 2.46 uIU/mL 0.358-3.74 [facility] No Panel InformationOrdered By: Yola Schaffer on 08-07-2023 Estradiol (E2) Level 268.0 pg/mL [facility] Comment on above: NORMAL REFERENCE [...] HCG ( test) Ql 13 mIU/mL <4 [facility] Comment on above: hCG levels with Gest ational AgeGestational Age hCG mIU/mL (IU/L)0.2 - 1 week 5 - 501-2 weeks 50 - 5002-3 weeks 100 - 76030-1 weeks 500 - 315105-6 weeks 1000 - 056906-4 weeks 95275 - 100,0006-8 weeks 96401 - 200,0002-3 months 16621 - 100,000 Serum or plasma progesterone measurement (mass/volume)Ordered By: Yola Schaffer on 08-07-2023 Progesterone [Mass/Vol] 41.43 ng/mL See Comment [facility] Comment on above: Progesterone Referen ce Table: [...] on 08-05-2023 E2 IA [Moles/Vol] 276.2 pg/mL [facility] Comment on above: NORMAL REFERENCE RAN [...] HCG ( test) Ql 31 mIU/mL <4 [facility] Comment on above: hCG levels with Gest ational AgeGestational Age hCG mIU/mL (IU/L)0.2 - 1 week 5 - 501-2 weeks 50 - 5002-3 weeks 100 - 48242-0 weeks 500 - 240823-5 weeks 1000 - 848905-5 weeks 27285 - 100,0006-8 weeks 91918 - 200,0002-3 months 80896 - 100,000 Serum or plasma progesterone measurement (mass/volume)Ordered By: Yola Schaffer on 08-05-2023 Progesterone [Mass/Vol] 53.90 ng/mL See Comment [facility] Comment on above: Progesterone Referen ce Table: [...] on 08-05-2023 TSH Qn 2.49 uIU/mL 0.358-3.74 [facility] Serum or plasma choriogonado tropin detectionOrdered By: Yola Schaffer on 08-03-2023 HCG ( test) Ql 36 mIU/mL <4 [facility] Comment on above: hCG levels with Gest ational AgeGestational Age hCG mIU/mL (IU/L)0.2 - 1 week 5 - 501-2 weeks 50 - 5002-3 weeks 100 - 83497-2 weeks 500 - 592270-6 weeks 1000 - 906927-4 weeks 30314 - 100,0006-8 weeks 93735 - 200,0002-3 months 01752 - 100,000 Serum or plasma progesterone measurement (mass/volume)Ordered By: Yola Schaffer on 08-03-2023 Progesterone [Mass/Vol] 49.44 ng/mL See Comment [facility] Comment on above: Progesterone Referen ce Table: UNITS Female: Follicular 0.15 - 1.40 ng/mL Luteal 3.34 - 25.56 ng/mL Mid-luteal 4.44 - 28.03 ng/mL Postmenopausal 0.0 - 0.73 ng/mL : 1st Trimester 11.22 - 90.00 ng/mL 2nd Trimester 25.55 - 89.40 ng/mL 3rd Trimester 48.40 -422.50 ng/mL Estradiol measurementOrdered By: Yola Schaffer on 07-29-2023 E2 IA [Moles/Vol] 279.0 pg/mL [facility] Comment on above: NORMAL REFERENCE RAN [...] 07-29-2023 Progesterone [Mass/Vol] 54.70 ng/mL See Comment [facility] Comment on above: Progesterone Referen ce Table: UNITS Female: Follicular 0.15 - 1.40 ng/mL Luteal 3.34 - 25.56 ng/mL Mid-luteal 4.44 - 28.03 ng/mL Postmenopausal 0.0 - 0.73 ng/mL : 1st Trimester 11.22 - 90.00 ng/mL 2nd Trimester 25.55 - 89.40 ng/mL 3rd Trimester 48.40 -422.50 ng/mL ANTI MULLERIAN HORMONEon Mullerian inhibiting substance [Mass/Vol] 4.43 ng/mL Normal 0.89-9.85 [facility] Comment on above: Order Comment: Speci men Type: BLOOD SPECIMEN Ordering Facility: [facility] Address: [facility] [place] [address] Performed By: #### 2 842-3, AMINAH, 88022-9, 75594-9, 5195-3, 25702-3, TISH, 70877-9 #### [facility] CLIA [id number] [address] [place] HBV surface Ag Ser Qlon HBV surface Ag Ql (S) Negative Normal Negative [facility] Comment on above: Order Comment: Speci men Type: BLOOD SPECIMEN Ordering Facility: [facility] Address: [facility] [place] [address] Performed By: #### 2 842-3, AMINAH, 89639-0, 35095-8, 5195-3, 15582-6, TISH, 68010-6 #### [facility] CLIA [id number] [address] [place] [address] [place] HCV Ab Ser Qlon 05-03-2023 HCV Ab Ql (S) Negative Normal Negative [facility] Comment on above: Order Comment: Speci men Type: BLOOD SPECIMEN Ordering Facility: [facility] Address: [facility] [place] [address] Result Comment: The result suggests no evidence of active infection with Hepatitis C virus. Should recent infection be suspected, repeat testing may be considered 4-6 weeks after this draw. Performed By: #### 2 842-3, AMINAH, 03685-9, 07901-0, 5195-3, 84867-8, TISH, 05229-5 #### [facility] CLIA [id number] [address] [place] [address] [place] HbA1c (Bld)on 05-03-2023 Average glucose Estimated from glycated hemoglobin (Bld) [Mass/Vol] 97 mg/dL Normal [facility] Comment on above: Order Comment: Rhina dowd Type: BLOOD SPECIMEN Ordering Facility: [facility] Address: [facility] [place] [address] Result Comment: eAG: (Estimated average glucose) is a calculated value from HgbA1c and is agency sales representative of the average blood glucose level in the last 2-3 month period. Performed By: #### 2 842-3, AMINAH, 51961-4, 01384-8, 5195-3, 77670-6, TISH, 95547-8 #### [facility] CLIA [id number] [address] [place] [address] [place] HbA1c (Bld) [Mass fraction] 5.0 % Normal 4.3-5.6 [facility] Comment on above: Order Comment: Rhnia dowd Type: BLOOD SPECIMEN Ordering Facility: [facility] Address: [address] [place] [address] Result Comment: [place] Diabetes Association guidelines indicate that patients with HgbA1c in the range 5.7-6.4% are at increased risk for development of diabetes, and intervention by lifestyle modification may be beneficial. HgbA1c greater or equal to 6.5% is considered diagnostic of diabetes. Performed By: #### 2 842-3, AMINAH, 03446-5, 53308-6, 5195-3, 48917-7, TISH, 23179-6 #### [facility] CLIA [id number] [address] [place], [place] [id number] [place] Prolactin SerPl-mCncon 05-03 Prolactin [Mass/Vol] 10.1 ng/mL Normal 4.5-26.8 [facility] Comment on above: Order Comment: Rhina dowd Type: BLOOD SPECIMEN Ordering Facility: [facility] [place] [address] Result Comment: Prol actin test is performed using the [employer] Electrochemiluminescence Immunoassay method. Results obtained with different methods or kits cannot be used interchangeably. Performed By: #### 2 842-3, RUBKEE, 53942-3, 38065-3, 5195-3, 17778-0, TISH, 79773-8 #### [facility] CLIA [id number] [address] [address] [place] RPR Ser Qlon 05-03-2023 Reagin Ab RPR Ql (S) Non-Reactive Normal Nonreactive C [facility] Comment on above: Order Comment: Speci men Type: BLOOD SPECIMEN Ordering Facility: [facility] Address: [address] [place] [address] Result Comment: Rapi d plasma reagin (RPR) test detects non-treponemal antibodies. RPR may be reactive in a variety of infectious and non-infectious conditions. Correlation with clinical picture and with treponemal antibody results is required for final interpretation. Performed By: #### 2 842-3, AMINAH, 41552-2, 52806-2, 5195-3, 98406-3, TISH, 22983-0 #### [facility] CLIA [id number] [address] [place] [address] [place] RUBELLA IGG ABon 05-03-2023 RUBELLA IGG AB, QUAL Positive Normal Positive [facility] Comment on above: Order Comment: Speci men Type: BLOOD SPECIMEN Ordering Facility: [facility] Address: [address] [place] [address] Result Comment: The result suggests recent or past exposure to Rubella virus or history of Rubella vaccination. Positive result may also be seen due to presence of passively-transferred antibodies. Please correlate with patient's history. Performed By: #### 2 842-3, RUBDOMINIKG, 90400-3, 87086-1, 5195-3, 71354-4, TISH, 51688-2 #### [facility] CLIA [id number] [address] [address] [place] Reagin and Treponema pallidu m IgG and IgM [Interp]on 05-03-2023 T. pallidum IgG+IgM IA Ql (S) Non-Reactive Normal Nonreactive [facility] Comment on above: Order Comment: Rhina dowd Type: BLOOD SPECIMEN Ordering Facility: [facility] Address: [facility] [place] [address] Performed By: #### 2 842-3, AMINAH, 93955-5, 11585-6, 5195-3, 18824-6, TISH, 20610-8 #### [facility] CLIA [id number] [address] [place] [address] [place] Reagin+T pallidum IgG+IgM Se rPl-Impon 05-03-2023 Reagin and Treponema pallidum IgG and IgM [Interp] Cannot exclude recent Treponemal infection if specimen collected within 7-10 days after appearance of suspect lesions or 2-3 weeks after an exposure. Clinical correlation is required. Normal [facility] Comment on above: Order Comment: Rhina dowd Type: BLOOD SPECIMEN Ordering Facility: [facility] Address: [facility] [place] [address] Performed By: #### 2 842-3, AMINAH, 39371-2, 94183-3, 5195-3, 73859-6, TISH, 57185-3 #### [facility] CLIA [id number] [address] [place] [id number] [place] Serum or plasma progesterone measurement (mass/volume)Ordered By: Julianna Villareal on 03-07-2023 Progesterone [Mass/Vol] 9.21 ng/mL See Comment [facility] Comment on above: Progesterone Referen ce Table: UNITS Female: Follicular 0.15 - 1.40 ng/mL Luteal 3.34 - 25.56 ng/mL Mid-luteal 4.44 - 28.03 ng/mL Postmenopausal 0.0 - 0.73 ng/mL : 1st Trimester 11.22 - 90.00 ng/mL 2nd Trimester 25.55 - 89.40 ng/mL 3rd Trimester 48.40 -422.50 ng/mL Serum or plasma progesterone measurement (mass/volume)Ordered By: Julianna Villraeal on 01-20-2023 Progesterone [Mass/Vol] 0.63 ng/mL See Comment [facility] Comment on above: Progesterone Referen ce Table: UNITS Female: Follicular 0.15 - 1.40 ng/mL Luteal 3.34 - 25.56 ng/mL Mid-luteal 4.44 - 28.03 ng/mL Postmenopausal 0.0 - 0.73 ng/mL : 1st Trimester 11.22 - 90.00 ng/mL 2nd Trimester 25.55 - 89.40 ng/mL 3rd Trimester 48.40 -422.50 ng/mL Serum or plasma prolactin me asurement (mass/volume)Ordered By: Julianna Villareal on 01-20-2023 Prolactin [Mass/Vol] 16.0 ng/mL [facility] Comment on above: NORMAL REFERENCE RAN GES FEMALE NON- 2.2 - 30.3 ng/mL 8.1 - 347.6 ng/mL POST-MENOPAUSAL 0.7 - 31.5 ng/mL MALE 2.5 - 17.4 ng/mL Basophil percentageOrdered B y: Dr. Villareal on 12-02-2022 WBC (Bld) [#/Vol] 4.8 10*3/uL 4.4-11.0 [facility] Blood erythrocytes count (nu mber/volume)Ordered By: Dr. Villareal on 12-02-2022 RBC (Bld) [#/Vol] 4.63 10*6/uL 4.2-5.4 [facility] Blood hemoglobin measurement (mass/volume)Ordered By: Dr. Villareal on 12-02-2022 Hemoglobin (Bld) [Mass/Vol] 13.6 g/dL 12.0-15.0 [facility] Blood platelet mean volumeOr dered By: Dr. Villareal on 12-02-2022 Platelet mean volume (Bld) [Entitic vol] 9.5 fL 6.2-12.0 [facility] Determination of erythrocyte mean corpuscular volume (MCV)Ordered By: Dr. Villareal on 12-02-2022 MCV (RBC) [Entitic vol] 86.6 fL 81-99 [facility] Hematocrit Auto (Bld) [Volum e fraction]Ordered By: Dr. Villareal on 12-02-2022 Hematocrit (Bld) [Volume fraction] 40.1 % 37-47 [facility] Laboratory - Chemistry and C hemistry - challengeOrdered By: Dr. Villareal on 12-02-2022 Free T4 [Mass/Vol] 1.05 ng/dL 0.76-1.46 [facility] HCG ( test) Ql (U) Negative [facility] Comment on above: Very dilute urine sp ecimens, as indicated by a low specificgravity, may not contain agency sales representative levels of hCG. If is still suspected, a first morning urinespecimen should be collected 48 hours later and tested. Laboratory - Hematology and Cell countsOrdered By: Dr. Villareal on 12-02-2022 Erythrocyte distribution width (RBC) [Entitic vol] 41.8 fL 35.1-43.9 [facility] Erythrocyte distribution width (RBC) [Ratio] 13.3 % 11.6-14.6 [facility] MCH (RBC) [Entitic mass] 29.4 pg 27.0-32.0 [facility] MCHC Auto (RBC) [Mass/Vol]Or dered By: Dr. Villareal on 12-02-2022 MCHC (RBC) [Mass/Vol] 33.9 g/dL 32-36 [facility] No Panel InformationOrdered By: Dr. Villareal on 12-02-2022 Thyroid Stimulating Hormone (TSH) 0.95 uIU/mL 0.358-3.74 [facility] Platelets bldOrdered By: Dr. Villareal on 12-02-2022 Platelets (Bld) [#/Vol] 259 10*3/uL 150-450 [facility] Cervical or vagninal specime n microscopic examination by cytology stain (reported asOrdered By: Dr. Villareal on 10-14-2022 Cytology report Cyto stain Doc (Cvx/Vag) Comment . [facility] Comment on above: The Pap smear is a s creening test designed to aid in thedetection of premalignant and malignant conditions of theuterine cervix. It is not a diagnostic procedure andshould not be used as the sole means of detecting cervicalcancer. Both false-positive and false-negative reports dooccur. Laboratory - CytologyOrdered By: Dr. Villareal on 10-14-2022 Hedis Manager Cyto stain Nom (Cvx/Vag) [ID] Comment . [facility] Comment on above: Katherine Brennan, Cytot echnologist (ASCP) Laboratory - Miscellaneous t estsOrdered By: Dr. Villareal on 10-14-2022 Service comment (Unsp spec) [Interp] Comment . [facility] Comment on above: This liquid based Th inPrep(R) pap test was screened withthe use of an image guided system. Service comment (Unsp spec) [Interp] . . [facility] No Panel InformationOrdered By: Dr. Villareal on 10-14-2022 Human Papillomavirus Screen Comment . [facility] Comment on above: The HPV DNA reflex c kathryn were not met with this specimenresult therefore, no HPV testing was performed.Performed at: [facility] [id number] Director: Machelle Ambrocio MD, Phone: [phone] Pathology report final diagnosis Narrative Comment . [facility] Comment on above: NEGATIVE FOR INTRAEP ITHELIAL LESION OR MALIGNANCY. Laboratory - Hematology and Cell countsOrdered By: Chin Edge on 09-27-2022 HbA1c (Bld) [Mass fraction] 5.3 % Normal 4.6 - 7.1 % [facility], [facility] Absolute lymphocyte counton 04-08-2022 Lymphocytes Auto (Unsp spec) [#/Vol] 3.46 10*3/uL 0.83-4.51 [facility] Work Phone: Basophil percentageon 2021 Basophils/100 WBC (Bld) 0.3 % 0-1 [facility] Work Phone: Eosinophils/100 WBC (Bld) 2.2 % 0-5 [facility] Work Phone: Neutrophils (Bld) [#/Vol] 4.8 10*3/uL 2.0-7.7 [facility] Work Phone: Neutrophils/100 WBC (Bld) 52.8 % 47-70 [facility] Work Phone: WBC (Bld) [#/Vol] 9.0 10*3/uL 4.4-11.0 [facility] Work Phone: Beta hCG serum qualon 2021 Beta HCG ( test) Ql Negative [facility] Work Phone: Blood erythrocytes count (nu mber/volume)on 04-08-2022 RBC (Bld) [#/Vol] 4.52 10*6/uL 4.2-5.4 [facility] Work Phone: Blood hemoglobin measurement (mass/volume)on 04-08-2022 Hemoglobin (Bld) [Mass/Vol] 13.1 g/dL 12.0-15.0 [facility] Work Phone: Blood lymphocytes/100 leukoc yteson 04-08-2022 Lymphocytes/100 WBC (Bld) 38.4 % 19-41 [facility] Work Phone: Blood monocytes/100 leukocyt eson 04-08-2022 Monocytes/100 WBC (Bld) 6.1 % 0-10 [facility] Work Phone: Blood platelet mean volumeon 04-08-2022 Platelet mean volume (Bld) [Entitic vol] 9.2 fL 6.2-12.0 [facility] Work Phone: Determination of erythrocyte mean corpuscular volume (MCV)on 04-08-2022 MCV (RBC) [Entitic vol] 88.9 fL 81-99 [facility] Work Phone: [phone] Hematocrit Auto (Bld) [Volum e fraction]on 04-08-2022 Hematocrit (Bld) [Volume fraction] 40.2 % 37-47 [facility] Work Phone: Laboratory - Hematology and Cell countson 04-08-2022 Erythrocyte distribution width (RBC) [Entitic vol] 41.5 fL 35.1-43.9 [facility] Work Phone: [phone] Erythrocyte distribution width (RBC) [Ratio] 12.7 % 11.6-14.6 [facility] Work Phone: Immature granulocytes/100 WBC (Bld) 0.200 % 0.0-0.9 [facility] Work Phone: Comment on above: IG% - Immature Granu locytes (promyelocytes, myelocytes and metamyelocytes) > 1% indicates that a LEFT SHIFT is Present. MCH (RBC) [Entitic mass] 29.0 pg 27.0-32.0 [facility] Work Phone: Nucleated RBC/100 WBC (Bld) [Ratio] 0 % 0-5 [facility] Work Phone: MCHC Auto (RBC) [Mass/Vol]on 04-08-2022 MCHC (RBC) [Mass/Vol] 32.6 g/dL 32-36 [facility] Work Phone: Platelets bldon 04-08-2022 Platelets (Bld) [#/Vol] 300 10*3/uL 150-450 [facility] Work Phone: T3, FREEon 08-04-2021 Free T3 [Mass/Vol] 3.2 pg/mL Normal 2.3-4.2 [facility] Comment on above: Performed By: #### 8 66, [id number], [id number] #### [facility] [place] [address] Instructional Systems Designer: Donald Robert MD T4, FREEon 08-04-2021 Free T4 [Mass/Vol] 1.1 ng/dL Normal 0.8-1.8 [facility] Comment on above: Performed By: #### 8 66, 03884, 5081 #### [facility] [place] [address] Instructional Systems Designer: Donald Robert MD THYROID PEROXIDASE ANTIBODIE Son 08-04-2021 THYROID PEROXIDASE ANTIBODIES 1 IU/mL Normal <9 [facility] Comment on above: Performed By: #### 8 66, 12904, 5081 #### [facility] [place] [address] Instructional Systems Designer: Donald Robert MD Laboratory - Chemistry and C hemistry - challengeon 08-03-2021 Free T3 [Mass/Vol] 3.2 pg/mL Normal 2.3 - 4.2 pg/mL [facility]; [facility] Free T4 [Mass/Vol] 1.1 ng/dL Normal 0.8 - 1.8 ng/dL [facility]; [facility] No Panel Informationon 08-03 THYROID PEROXIDASE ANTIBODIES 1 {IU/mL} Normal [facility]; [facility] Laboratory - Microbiology an d Antimicrobial susceptibilityon 05-13-2021 S. pyogenes Ag EIA Ql (Throat) Negative Normal [facility]; [facility] Vital Signs Date Time Vital Sign Value Performing Clinician Facility 03-06-2025 14:35-0400 Body height 157.48 cm Marco Melvin PA Work Phone: 1(534)414-784117 [address] 03-06-2025 14:35-0400 Body mass index (BMI) [Ratio] 31.1 kg/m2 Marco Melvin PA Work Phone: 1(487)289-769417 [address] 03-06-2025 14:35-0400 Body weight 77.28 kg Marco Melvin PA Work Phone: 6(981)423-627240 [place] [address] 03-06-2025 14:35-0400 Diastolic blood pressure 80 mm[Hg] Marco Melvin PA Work Phone: 1(870)547-220540 [place] [address] 03-06-2025 14:35-0400 Systolic blood pressure 110 mm[Hg] Marco Melvin PA Work Phone: 5(939)299-537217 [address] 10-14-2024 21:58-0400 Body temperature 98.2 [degF] Marco Melvin PA Work Phone: 7(732)645-374317 [address] 10-14-2024 21:58-0400 Diastolic blood pressure 87 mm[Hg] Marco Melvin PA Work Phone: 7(489)531-462287 [place] [address] 10-14-2024 21:58-0400 Heart rate 68 /min Marco Melvin PA Work Phone: 9(838)622-732287 [place] [address] 10-14-2024 21:58-0400 Respiratory rate 12 /min Marco Melvin PA Work Phone: [facility] 10-14-2024 21:58-0400 SaO2% (BldA) [Mass fraction] 100 % Marco Melvin PA Work Phone: [facility] 10-14-2024 21:58-0400 Systolic blood pressure 110 mm[Hg] Marco Melvin PA Work Phone: [facility] 10-14-2024 18:26-0400 Body height 157.48 cm Marco Melvin PA Work Phone: [facility] 10-14-2024 18:26-0400 Body mass index (BMI) [Ratio] 33.9 kg/m2 Marco Melvin PA Work Phone: [facility] 10-14-2024 18:26-0400 Body weight 84.09 kg Marco Melvin PA Work Phone: [facility] 10-13-2024 09:42-0400 Diastolic blood pressure 64 mm[Hg] Barak Covarrubias MD Work Phone: [facility] 10-13-2024 09:42-0400 Heart rate 90 /min Barak Covarrubias MD Work Phone: [facility] 10-13-2024 09:42-0400 SaO2% (BldA) [Mass fraction] 100 % Barak Covarrubias MD Work Phone: [facility] 10-13-2024 09:42-0400 Systolic blood pressure 103 mm[Hg] Barak Covarrubias MD Work Phone: [facility] 10-13-2024 06:25-0400 Body mass index (BMI) [Ratio] 34.4 kg/m2 Barak Covarrubias MD Work Phone: [facility] 10-13-2024 06:25-0400 Body weight 85.32 kg Barak Covarrubias MD Work Phone: [facility] 10-13-2024 05:31-0400 Body temperature 98.01 [degF] Barak Covarrubias MD Work Phone: [facility] 10-13-2024 05:31-0400 Respiratory rate 17 /min Barak Covarrubias MD Work Phone: [facility] 10-12-2024 03:37-0400 Body height 157.5 cm Barak Covarrubias MD Work Phone: [facility] 10-12-2024 01:59-0400 Body temperature 98.2 [degF] Marco Melvin PA Work Phone: [facility] 10-12-2024 01:59-0400 Diastolic blood pressure 73 mm[Hg] Marco Melvin PA Work Phone: [facility] 10-12-2024 01:59-0400 Heart rate 94 /min Marco Melvin PA Work Phone: 8(377)769-470987 [place] [address] 10-12-2024 01:59-0400 Respiratory rate 21 /min Amrco Melvin PA Work Phone: [facility] 10-12-2024 01:59-0400 SaO2% (BldA) [Mass fraction] 96 % Marco Melvin PA Work Phone: [facility] 10-12-2024 01:59-0400 Systolic blood pressure 110 mm[Hg] Marco Melvin PA Work Phone: [facility] 10-11-2024 20:53-0400 Body height 157.48 cm Marco Melvin PA Work Phone: [facility] 10-11-2024 20:53-0400 Body mass index (BMI) [Ratio] 34.2 kg/m2 Marco Melvin PA Work Phone: [facility] 10-11-2024 20:53-0400 Body weight 84.82 kg Marco Melvin PA Work Phone: [facility] 06-19-2024 09:41-0500 Body mass index (BMI) [Ratio] 32.1 kg/m2 Marco Melvin PA Work Phone: [facility] 06-19-2024 09:41-0500 Body weight 79.83 kg Marco Melvin PA Work Phone: [facility] 06-19-2024 09:41-0500 Diastolic blood pressure 79 mm[Hg] Marco Melvin PA Work Phone: [facility] 06-19-2024 09:41-0500 Systolic blood pressure 119 mm[Hg] Marco Melvin PA Work Phone: [facility] 03-17-2024 08:30-0400 Body temperature 98.01 [degF] Rand Hallman MD Work Phone: [facility] 03-17-2024 08:30-0400 Diastolic blood pressure 74 mm[Hg] Rand Hallman MD Work Phone: [facility] 03-17-2024 08:30-0400 Heart rate 86 /min Rand Hallman MD Work Phone: [facility] 03-17-2024 08:30-0400 Respiratory rate 16 /min Rand Hallman MD Work Phone: [facility] 03-17-2024 08:30-0400 SaO2% (BldA) [Mass fraction] 99 % Rand Hallman MD Work Phone: [facility] 03-17-2024 08:30-0400 Systolic blood pressure 109 mm[Hg] Rand Hallman MD Work Phone: [facility] 03-10-2024 07:30-0400 Body height 157.5 cm Rand Hallman MD Work Phone: [facility] 03-06-2024 16:49-0400 Body mass index (BMI) [Ratio] 34.39 kg/m2 Rand Hallman MD Work Phone: [facility] 03-06-2024 16:49-0400 Body weight 85.28 kg Rand Hallman MD Work Phone: [facility] 01-18-2024 15:39-0400 Body height 156.84 cm Natalie Hopkins MA [facility].; [facility] 01-18-2024 15:39-0400 Body mass index (BMI) [Ratio] 35.22 kg/m2 Natalie Hopkins MA [facility].; [facility]. 01-18-2024 15:39-0400 Body surface area Derived from formula 1.87 m2 Natalie Hopkins MA [facility].; [facility] 01-18-2024 15:39-0400 Body weight 86.64 kg Natalie Hopkins MA [facility].; [facility] 01-18-2024 15:39-0400 Diastolic blood pressure 75 mm[Hg] Natalie Hopkins MA [facility].; [facility]. Comment on above: Patient Position: Sitting; Cuff Location : Left Arm; Cuff Size: Standard 01-18-2024 15:39-0400 Heart rate 96 /min Natalie Hopkins MA [facility]; [facility]. Comment on above: Pattern: Regular 01-18-2024 15:39-0400 Systolic blood pressure 112 mm[Hg] Natalie Hopkins MA [facility]; [facility]. Comment on above: Patient Position: Sitting; Cuff Location : Left Arm; Cuff Size: Standard 10-25-2023 08:23-0400 Body height 157.48 cm PA Marco Melvin Work Phone: [facility] 10-25-2023 08:23-0400 Body mass index (BMI) [Ratio] 32.9 kg/m2 PA Marco Melvin Work Phone: [facility] 10-25-2023 08:23-0400 Body weight 81.64 kg PA Marco Melvin Work Phone: [facility] 10-25-2023 08:23-0400 Diastolic blood pressure 84 mm[Hg] PA Marco Melvin Work Phone: [facility] 10-25-2023 08:23-0400 Systolic blood pressure 118 mm[Hg] PA Marco Melvin Work Phone: [facility] 10-12-2023 14:55-0400 Body mass index (BMI) [Ratio] 32.4 kg/m2 PA Marco Melvin Work Phone: [facility] 10-12-2023 14:55-0400 Body weight 80.51 kg PA Marco Melvin Work Phone: [facility] 10-12-2023 14:55-0400 Diastolic blood pressure 85 mm[Hg] PA Marco Melvin Work Phone: [facility] 10-12-2023 14:55-0400 Systolic blood pressure 118 mm[Hg] PA Marco Melvin Work Phone: [facility] 09-19-2023 16:39-0400 Body temperature 97.6 [degF] PA Marco Melvin Work Phone: 3(374)446-346187 [place] [address] 09-19-2023 16:39-0400 Diastolic blood pressure 82 mm[Hg] PA Marco Melvin Work Phone: 3(286)185-356887 [place] [address] 09-19-2023 16:39-0400 Heart rate 76 /min PA Marco Melvin Work Phone: [facility] 09-19-2023 16:39-0400 Respiratory rate 15 /min PA Marco Melvin Work Phone: [facility] 09-19-2023 16:39-0400 SaO2% (BldA) [Mass fraction] 99 % PA Marco Melvin Work Phone: [facility] 09-19-2023 16:39-0400 Systolic blood pressure 129 mm[Hg] PA Marco Melvin Work Phone: [facility] 09-19-2023 12:14-0400 Body height 157.48 cm PA Marco Melvin Work Phone: [facility] 09-19-2023 12:14-0400 Body mass index (BMI) [Ratio] 31.1 kg/m2 PA Marco Melvin Work Phone: 1(750)981-510617 [address] 09-19-2023 12:14-0400 Body weight 77.11 kg PA Marco Melvin Work Phone: 5(125)923-888840 [place] [address] 09-08-2023 13:11-0500 Body height 157.48 cm PA Marco Melvin Work Phone: 4(731)541-816740 [place] [address] 09-08-2023 13:10-0500 Body mass index (BMI) [Ratio] 31.4 kg/m2 PA Marco Melvin Work Phone: 2(092)947-208440 [place] [address] 09-08-2023 13:10-0500 Body weight 78.01 kg PA Marco Melvin Work Phone: 7(105)867-073240 [place] [address] 09-08-2023 13:10-0500 Diastolic blood pressure 88 mm[Hg] PA Marco Melvin Work Phone: 8(121)881-457687 [place] [address] 09-08-2023 13:10-0500 Systolic blood pressure 123 mm[Hg] PA Marco Melvin Work Phone: 9(170)038-310840 [place] [address] 02-15-2023 15:45-0400 Body height 156.84 cm Chelsea Paez MA [facility], [facility].; [facility], [facility]. 02-15-2023 15:45-0400 Body mass index (BMI) [Ratio] 28.6 kg/m2 Chelsea Paez MA [facility], [facility].; [facility], [facility]. 02-15-2023 15:45-0400 Body surface area Derived from formula 1.71 m2 Chelsea Paez MA [facility], [facility]. 02-15-2023 15:45-0400 Body weight 70.36 kg Chelsea Paez MA [facility], [facility].; [facility], [facility]. 02-15-2023 15:45-0400 Diastolic blood pressure 79 mm[Hg] Chelsea Paez MA [facility], [facility].; [facility], [facility]. Comment on above: Patient Position: Sitting; Cuff Location : Left Arm; Cuff Size: Standard 02-15-2023 15:45-0400 Heart rate 87 /min Chelsea Paez MA [facility]. Comment on above: Pattern: Regular 02-15-2023 15:45-0400 Systolic blood pressure 120 mm[Hg] Chelsea Paez MA [facility].; [facility] Comment on above: Patient Position: Sitting; Cuff Location : Left Arm; Cuff Size: Standard 12-14-2022 11:30-0400 Body height 157.48 cm PA Marco Melvin Work Phone: [facility] 12-14-2022 11:28-0400 Body mass index (BMI) [Ratio] 28.3 kg/m2 PA Marco Melvin Work Phone: [facility] 12-14-2022 11:28-0400 Body weight 70.36 kg PA Marco Melvin Work Phone: [facility] 12-14-2022 11:28-0400 Diastolic blood pressure 84 mm[Hg] PA Marco Melvin Work Phone: 8(894)753-978087 [place] [address] 12-14-2022 11:28-0400 Systolic blood pressure 129 mm[Hg] PA Marco Melvin Work Phone: [facility] 12-02-2022 14:26-0400 Body temperature 97.7 [degF] PA Marco Melvin Work Phone: [facility] 12-02-2022 14:26-0400 Diastolic blood pressure 79 mm[Hg] PA Marco Melvin Work Phone: [facility] 12-02-2022 14:26-0400 Heart rate 76 /min PA Marco Melvin Work Phone: [facility] 12-02-2022 14:26-0400 Respiratory rate 16 /min PA Marco Melvin Work Phone: [facility] 12-02-2022 14:26-0400 SaO2% (BldA) [Mass fraction] 97 % PA Marco Melvin Work Phone: [facility] 12-02-2022 14:26-0400 Systolic blood pressure 115 mm[Hg] PA Marco Melvin Work Phone: [facility] 12-02-2022 09:12-0400 Body height 157.48 cm PA Marco Melvin Work Phone: [facility] 12-02-2022 09:12-0400 Body mass index (BMI) [Ratio] 28.1 kg/m2 PA Marco Melvin Work Phone: [facility] 12-02-2022 09:12-0400 Body weight 69.85 kg PA Marco Melvin Work Phone: [facility] 11-09-2022 11:22-0400 Body mass index (BMI) [Ratio] 28.5 kg/m2 PA Marco Melvin Work Phone: [facility] 11-09-2022 11:22-0400 Body weight 70.93 kg PA Marco Melvin Work Phone: [facility] 11-09-2022 11:22-0400 Diastolic blood pressure 76 mm[Hg] PA Marco Melvin Work Phone: [facility] 11-09-2022 11:22-0400 Systolic blood pressure 116 mm[Hg] PA Marco Melvin Work Phone: [facility] 10-14-2022 14:43-0400 Body mass index (BMI) [Ratio] 28.8 kg/m2 PA Marco Melvin Work Phone: [facility] 10-14-2022 14:43-0400 Body weight 71.44 kg PA Marco Melvin Work Phone: [facility] 10-14-2022 14:43-0400 Diastolic blood pressure 77 mm[Hg] PA Marco Melvin Work Phone: [facility] 10-14-2022 14:43-0400 Systolic blood pressure 114 mm[Hg] PA Marco Melvin Work Phone: [facility] 09-27-2022 15:56-0400 Body temperature 99.9 [degF] Chin Edge LPN [facility], [facility].; [facility], [facility]. 09-27-2022 15:56-0400 Body weight 73.94 kg Chin Mineshcal AMEZQUITA [facility], [facility].; [facility], [facility]. 09-27-2022 15:56-0400 Diastolic blood pressure 86 mm[Hg] Chin Edge LPN [facility], [facility].; [facility], [employer]. Comment on above: Patient Position: Sitting; Cuff Location : Left Arm; Cuff Size: Standard 09-27-2022 15:56-0400 Heart rate 106 /min Chin Edge LPN [facility], [facility].; [facility] [email or web address], [facility]. Comment on above: Pattern: Regular 09-27-2022 15:56-0400 Systolic blood pressure 120 mm[Hg] Chin Mineshcal AMEZQUITA [facility], [facility].; Emmalena [email or web address], [facility]. Comment on above: Patient Position: Sitting; Cuff Location : Left Arm; Cuff Size: Standard 08-05-2022 10:09-0500 Body height 156.84 cm Nandini Fisher RN [facility], [facility].; [facility], [facility]. 08-05-2022 10:09-0500 Body mass index (BMI) [Ratio] 30.24 kg/m2 Nandini Fisher RN [facility], [facility].; [facility], [facility]. 08-05-2022 10:09-0500 Body surface area Derived from formula 1.75 m2 Nandini Fisher RN [facility], [facility].; [facility], [facility]. 08-05-2022 10:09-0500 Body temperature 99.8 [degF] Nandini Fisher RN [facility], [facility].; [email or web address] [facility], [employer]. Comment on above: Method: Tympanic 08-05-2022 10:09-0500 Body weight 74.39 kg Nandini Fisher RN [facility], [facility].; [facility] [email or web address], [facility]. 08-05-2022 10:09-0500 Diastolic blood pressure 72 mm[Hg] Nandini Fisher RN [facility], [facility].; [email or web address] [facility]. Comment on above: Patient Position: Sitting; Cuff Location : Left Arm; Cuff Size: Standard 08-05-2022 10:09-0500 Heart rate 94 /min Nandini Fisher RN [facility], [facility].; [facility] [email or web address], [employer]. Comment on above: Pattern: Regular 08-05-2022 10:09-0500 Systolic blood pressure 108 mm[Hg] Nandini Fisher RN [facility], [employer], [employer]. Comment on above: Patient Position: Sitting; Cuff Location : Left Arm; Cuff Size: Standard 05-12-2022 16:19-0500 Body height 156.84 cm Maryellen Reyes LPN [facility], [facility].; [facility], [facility]. 05-12-2022 16:19-0500 Body mass index (BMI) [Ratio] 30.05 kg/m2 Maryellen Reyes LPN [facility], [facility].; [facility], [employer] 05-12-2022 16:19-0500 Body surface area Derived from formula 1.75 m2 Maryellen Reyes LPN [facility], [facility].; Emmalena [email or web address], [employer] 05-12-2022 16:19-0500 Body temperature 98.5 [degF] Maryellen Reyes LPN [facility], [facility].; [employer], [employer]. Comment on above: Method: Tympanic 05-12-2022 16:19-0500 Body weight 73.94 kg Maryellen Reyes LPN [facility], [email or web address] 05-12-2022 16:19-0500 Diastolic blood pressure 87 mm[Hg] Maryellen Reyes LPN [facility], [facility].; [email or web address], [employer]. Comment on above: Patient Position: Sitting; Cuff Location : Left Arm; Cuff Size: Standard 05-12-2022 16:19-0500 Heart rate 92 /min Maryellen Reyes LPN [facility], [facility].; [email or web address], [employer]. Comment on above: Pattern: Regular 05-12-2022 16:19-0500 Inhaled oxygen concentration 20 % Maryellen Reyes LPN [facility], [email or web address], [employer]. Comment on above: Room air 05-12-2022 16:19-0500 Inhaled oxygen concentration 21 % Maryellen Reyes LPN [facility], [facility].; [email or web address] [facility]. Comment on above: Room air 05-12-2022 16:19-0500 SaO2% (BldA) [Mass fraction] 98 % Maryellen Reyes LPN [facility], [facility].; [facility] [email or web address] 05-12-2022 16:19-0500 Systolic blood pressure 118 mm[Hg] Maryellen Reyes LPN [facility], [facility].; [email or web address], [employer]. Comment on above: Patient Position: Sitting; Cuff Location : Left Arm; Cuff Size: Standard 04-26-2022 10:40-0400 Body height 156.84 cm Maryellen Reyes LPN [facility], [facility].; Emm[facility] [email or web address], [employer]. 04-26-2022 10:40-0400 Body mass index (BMI) [Ratio] 30.05 kg/m2 Maryellen Reyes LPN [facility], [facility].; Emm[facility]ena [email or web address], [employer]. 04-26-2022 10:40-0400 Body surface area Derived from formula 1.75 m2 Maryellen Reyes LPN [facility], [facility].; Emmalena [email or web address], [employer]. 04-26-2022 10:40-0400 Body weight 73.94 kg Maryellen Reyes LPN [facility], [facility].; [employer] [facility], [employer]. 04-26-2022 10:40-0400 Diastolic blood pressure 86 mm[Hg] Maryellen Reyes LPN [facility], [facility].; [email or web address], [employer]. Comment on above: Patient Position: Sitting; Cuff Location : Left Arm; Cuff Size: Standard 04-26-2022 10:40-0400 Heart rate 106 /min Maryellen Reyes LPN [facility], [facility].; [employer]. Comment on above: Pattern: Regular 04-26-2022 10:40-0400 Inhaled oxygen concentration 20 % Maryellen Reyes LPN [facility], [facility].; [email or web address], [employer]. Comment on above: Room air 04-26-2022 10:40-0400 Inhaled oxygen concentration 21 % Maryellen Reyes LPN [facility], [facility].; [email or web address], [employer]. Comment on above: Room air 04-26-2022 10:40-0400 SaO2% (BldA) [Mass fraction] 100 % Maryellen Reyes LPN [facility], [facility].; [facility]. 04-26-2022 10:40-0400 Systolic blood pressure 122 mm[Hg] Maryellen Reyes LPN [facility].; [facility]. Comment on above: Patient Position: Sitting; Cuff Location : Left Arm; Cuff Size: Standard 04-08-2022 22:05-0400 Respiratory rate 14 /min [facility] Work Phone: 04-08-2022 17:52-0400 Body temperature 97.4 [degF] [facility] Work Phone: 04-08-2022 17:52-0400 Diastolic blood pressure 95 mm[Hg] [facility] Work Phone: 04-08-2022 17:52-0400 Heart rate 105 /min [facility] Work Phone: 04-08-2022 17:52-0400 SaO2% (BldA) [Mass fraction] 100 % [facility] Work Phone: 04-08-2022 17:52-0400 Systolic blood pressure 128 mm[Hg] [facility] Work Phone: 04-08-2022 17:49-0400 Body height 157.48 cm [facility] Work Phone: 04-08-2022 17:49-0400 Body mass index (BMI) [Ratio] 30.7 kg/m2 [facility] Work Phone: 04-08-2022 17:49-0400 Body weight 76.3 kg [facility] Work Phone: 02-07-2022 09:46-0400 Body height 156.84 cm Nandini Fisher RN [facility], [facility].; [facility]. 02-07-2022 09:46-0400 Body mass index (BMI) [Ratio] 29.5 kg/m2 Nandini Fisher RN [facility].; [facility] [email or web address] [facility]. 02-07-2022 09:46-0400 Body surface area Derived from formula 1.73 m2 Nandini Fisher RN [facility].; [facility]. 02-07-2022 09:46-0400 Body temperature 99.2 [degF] Nandini Fisher RN [facility].; [employer]. Comment on above: Method: Tympanic 02-07-2022 09:46-0400 Body weight 72.58 kg Nandini Fisher RN [facility].; [employer] [facility]. 02-07-2022 09:46-0400 Diastolic blood pressure 74 mm[Hg] Nandini Fisher RN [facility].; [employer]. Comment on above: Patient Position: Sitting; Cuff Location : Left Arm; Cuff Size: Standard 02-07-2022 09:46-0400 Heart rate 84 /min Nandini Fisher RN [facility].; [employer]. Comment on above: Pattern: Regular 02-07-2022 09:46-0400 Inhaled oxygen concentration 20 % Nandini Fisher RN [facility].; [employer]. Comment on above: Room air 02-07-2022 09:46-0400 Inhaled oxygen concentration 21 % Nandini Fisher RN [facility].; [employer]. Comment on above: Room air 02-07-2022 09:46-0400 SaO2% (BldA) [Mass fraction] 99 % Nandini Fisher RN Emmalena [email or web address] [facility].; [employer]. 02-07-2022 09:46-0400 Systolic blood pressure 112 mm[Hg] Nandini Fisher RN [facility] [email or web address] [facility].; [employer]. Comment on above: Patient Position: Sitting; Cuff Location : Left Arm; Cuff Size: Standard 12-01-2021 15:44-0400 Body height 156.84 cm Maryellen Reyes LPN [facility].; [facility], [facility]. 12-01-2021 15:44-0400 Body mass index (BMI) [Ratio] 29.13 kg/m2 Maryellen Reyes LPN [facility], [facility].; [facility] [email or web address] [facility], [facility]. 12-01-2021 15:44-0400 Body surface area Derived from formula 1.72 m2 Maryellen Reyes LPN [facility], [employer].; [facility]ena [email or web address] [facility], [facility]. 12-01-2021 15:44-0400 Body weight 71.67 kg Maryellen Reyes LPN [facility], [facility].; [email or web address] [facility], [facility]. 12-01-2021 15:44-0400 Diastolic blood pressure 79 mm[Hg] Maryellen Reyes LPN [facility], [facility].; [email or web address], [facility]. Comment on above: Patient Position: Sitting; Cuff Location : Left Arm; Cuff Size: Standard 12-01-2021 15:44-0400 Heart rate 75 /min Maryellen Reyes LPN [facility], [facility].; [employer], [employer]. Comment on above: Pattern: Regular 12-01-2021 15:44-0400 Systolic blood pressure 113 mm[Hg] Maryellen Reyes LPN [facility] [email or web address] [facility], [facility].; [employer], [employer]. Comment on above: Patient Position: Sitting; Cuff Location : Left Arm; Cuff Size: Standard 08-03-2021 16:09-0500 Body height 156.84 cm Maryellen Reyes LPN [facility] [email or web address] [facility], [facility].; [email or web address], [employer]. 08-03-2021 16:09-0500 Body mass index (BMI) [Ratio] 27.47 kg/m2 Maryellen Reyes LPN [facility], [facility].; [employer], [facility]. 08-03-2021 16:09-0500 Body surface area Derived from formula 1.68 m2 Maryellen Reyes LPN [facility] [email or web address] [facility], [facility].; [employer] [email or web address] [facility], [facility]. 08-03-2021 16:09-0500 Body weight 67.59 kg Maryellen Reyes LPN Emm[facility] [email or web address] [facility], [facility].; [email or web address], [employer]. 08-03-2021 16:09-0500 Diastolic blood pressure 88 mm[Hg] Maryellen Reyes LPN [facility], [facility].; [facility], [employer]. Comment on above: Patient Position: Sitting; Cuff Location : Left Arm; Cuff Size: Standard 08-03-2021 16:09-0500 Heart rate 85 /min Maryellen Reyes LPN [facility], [facility].; [employer], [employer]. Comment on above: Pattern: Regular 08-03-2021 16:09-0500 Systolic blood pressure 125 mm[Hg] Maryellen Reyes LPN [facility], [facility].; [facility] [employer], [employer]. Comment on above: Patient Position: Sitting; Cuff Location : Left Arm; Cuff Size: Standard 05-13-2021 15:58-0500 Body height 156.84 cm Alysiamadelyn Mar [facility], [facility].; [facility], [facility]. 05-13-2021 15:58-0500 Body mass index (BMI) [Ratio] 26.55 kg/m2 [facility], [facility].; [facility], [employer] 05-13-2021 15:58-0500 Body surface area Derived from formula 1.66 m2 Alysia Mar [facility], [facility].; [facility], [employer] 05-13-2021 15:58-0500 Body temperature 99.2 [degF] Alysiamadelyn Mar [facility], [facility].; [employer] Comment on above: Method: Tympanic 05-13-2021 15:58-0500 Body weight 65.32 kg Alysiamadelyn Mar [facility], [facility].; [facility], [employer] 05-13-2021 15:58-0500 Diastolic blood pressure 80 mm[Hg] Alysiamadelyn Mar [facility], [facility].; [employer], [employer]. Comment on above: Patient Position: Sitting; Cuff Location : Left Arm; Cuff Size: Standard 05-13-2021 15:58-0500 Heart rate 92 /min Alysiamadelyn Mar LPN [facility], [facility].; [email or web address], [employer]. 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 Comment on above: Patient Position: Sitting; Cuff Location : Left Arm; Cuff Size: Standard 04-26-2021 16:14-0400 Body height 156.84 cm Alysia Mar LPN [facility].; [facility], [facility]. 04-26-2021 16:14-0400 Body mass index (BMI) [Ratio] 26.74 kg/m2 Alysia Mar LPN [facility].; [facility]. 04-26-2021 16:14-0400 Body surface area Derived from formula 1.66 m2 Alysia Mar LPN [facility].; [facility] 04-26-2021 16:14-0400 Body weight 65.77 kg Alysia Mar LPN [facility].; [facility]. 04-26-2021 16:14-0400 Diastolic blood pressure 78 mm[Hg] Alysia Mar LPN [facility].; [facility], [facility]. Comment on above: Patient Position: Sitting; Cuff Location : Left Arm; Cuff Size: Standard 04-26-2021 16:14-0400 Heart rate 106 /min Alysia Mar LPN [facility].; [facility], [facility]. Comment on above: Pattern: Regular 04-26-2021 16:14-0400 Systolic blood pressure 114 mm[Hg] Alysia Mar LPN [facility].; [facility] [email or web address] [facility], [facility]. Comment on above: Patient Position: Sitting; Cuff Location : Left Arm; Cuff Size: Standard 01-31-2020 15:35-0400 Body height 156.84 cm Marco Melvin PA-C Work Phone: [facility], [facility].; Emmalena [email or web address] [facility]. 01-31-2020 15:35-0400 Body mass index (BMI) [Ratio] 26.55 kg/m2 Marco Melvin PA-C Work Phone: [facility], [facility].; [facility], [facility]. 01-31-2020 15:35-0400 Body surface area Derived from formula 1.66 m2 Marco Melvin PA-C Work Phone: [facility]; [employer] [facility]. 01-31-2020 15:35-0400 Body weight 65.32 kg Marco Melvin PA-C Work Phone: [employer] [facility].; [employer]. 01-31-2020 15:35-0400 Diastolic blood pressure 74 mm[Hg] Marco Melvin PA-C Work Phone: [employer]; [place]. Comment on above: Patient Position: Sitting; Cuff Location : Left Arm; Cuff Size: Standard 01-31-2020 15:35-0400 Heart rate 80 /min Marco Melvin PA-C Work Phone: [facility] [employer]; [place]. Comment on above: Pattern: Regular 01-31-2020 15:35-0400 Systolic blood pressure 107 mm[Hg] Marco Melvin PA-C Work Phone: [facility]; [employer]. Comment on above: Patient Position: Sitting; Cuff Location : Left Arm; Cuff Size: Standard Encounters Encounter Date Encounter Type Care Provider Facility Start: 05-12-2025 End: 05-12-2025 ambulatory JOHN NAYLOR MD Facility:A Start: 04-07-2025 End: 04-07-2025 ambulatory YOLA SCHAFFER [facility] Start: 04-02-[address] Joe Schaffer MD -Laboratory Work Phone: Start: 04-02-2025 End: 04-02-2025 ambulatory Yola Schaffer Facility:[facility] Start: 03-31-2025 End: 03-31-2025 ambulatory Marcoronald Melvin PA Work Phone: -Laboratory Start: 03-31-2025 End: 03-31-[address] Yola Schaffer MD -Laboratory Work Phone: Start: 03-31-2025 End: 03-31-2025 ambulatory Yola Schaffer Facility:[facility] Start: 03-28-2025 End: 03-28-2025 ambulatory Marco Melvin PA Work Phone: -Laboratory Start: 03-28-2025 End: 03-28-[address] Yola Schaffer MD -Laboratory Work Phone: Start: 03-28-2025 End: 03-28-2025 ambulatory Yola Schaffer Facility:[facility] Start: 03-24-2025 End: 03-24-2025 ambulatory Marco Melvin PA Work Phone: -Laboratory Start: 03-24-2025 End: 03-24-[address] Yola Schaffer MD -Laboratory Work Phone: Start: 03-24-2025 End: 03-24-2025 ambulatory Marcoronald Melvin Facility:[facility] Start: 03-12-2025 End: 03-12-2025 ambulatory JOHN NAYLOR MD Facility:A Start: 03-10-2025 End: 03-10-2025 ambulatory JOHN NAYLOR MD Facility:A Start: 03-07-2025 End: 03-07-2025 ambulatory JOHN NAYLOR MD Facility:A Start: 03-06-2025 End: 03-06-[address] Julianna Newman DO [facility] Work Phone: Start: 03-06-2025 End: 03-06-[address] Julianna Newman DO [facility] Start: 03-06-2025 End: 03-06-2025 ambulatory Marco Melvin PA Work Phone: -[facility] Start: 02-28-2025 End: 02-28-2025 ambulatory MARCO Ziggy MELVIN PA-C Facility:A Start: 10-14-2024 End: 10-14-2024 Emergency department patient visit Marco Melvin PA Work Phone: -Emergency Department Work Phone: Start: 10-12-2024 End: 10-13-2024 Evaluation and management of inpatient Barak Covarrubias MD Work Phone: [facility] Unit [facility] H5 Comment on above: Ovarian hyperstimula tion syndrome (Primary Dx) Start: 10-11-2024 End: 10-12-2024 Emergency department patient visit Marco LUNA Work Phone: -Emergency Department Work Phone: Start: 10-07-2024 End: 10-07-2024 ambulatory MARCO MELVIN PA-C Facility:A Start: 08-15-2024 End: 08-15-[address] [facility] Work Phone: Start: 08-15-2024 End: 08-15-2024 ambulatory [facility] Facility:[facility] Start: 06-19-2024 End: 06-19-2024 Patient encounter procedure Lilly REYES -Laboratory, Specimen Work Phone: Start: 06-19-2024 End: 06-19-2024 Patient encounter procedure Lilly REYES -[facility] Work Phone: Start: 06-19-2024 End: 06-19-2024 ambulatory Marco Melvin Facility:[facility] Start: 06-19-2024 End: 06-19-2024 ambulatory Marco Melvin Facility:[facility] Start: 06-11-2024 ambulatory Marco Melvin Facility:[facility] Start: 05-15-2024 End: 05-15-2024 ambulatory [facility] Start: 05-14-2024 End: 05-14-2024 ambulatory [facility], [place] Start: 05-07-2024 End: 05-07-2024 ambulatory [facility] Start: 04-25-2024 End: 04-25-2024 ambulatory [facility] [place] Start: 04-10-2024 End: 04-10-2024 Subsequent hospital visit by physician Lucila Ho DO Work Phone: [facility] Comment on above: History of gestation al diabetes Start: 04-10-2024 End: 04-10-2024 ambulatory [facility] Start: 03-28-2024 End: 03-28-2024 ambulatory [facility] Start: 03-06-2024 End: 03-17-2024 Evaluation and management of inpatient Rand Hallman MD Work Phone: [facility] Comment on above: S/P (Prima ry Dx); Anhydramnios in third trimester, single or unspecified fetus; Vaginal bleeding in , third trimester Start: 01-19-2024 End: 01-19-2024 [facility] Start: 01-18-2024 End: 01-18-2024 Office outpatient visit 15 minutes Marco Melvin PA-C [facility] Start: 12-28-2023 End: 12-28-2023 ambulatory SAUMYA MANCIA [facility] Start: 12-12-2023 End: 12-12-2023 Telephone follow-up Marco Melvin PA-C [facility] Phone[facility] Start: 10-25-2023 End: 10-25-2023 ambulatory PA Marco Melvin Work Phone: [facility] Work Phone: Start: 10-25-2023 End: 10-25-2023 Patient encounter procedure PA Marco Melvin Work Phone: [facility] Work Phone: Start: 10-12-2023 End: 10-12-2023 ambulatory PA Marco Melvin Work Phone: [facility] Work Phone: Start: 10-12-2023 End: 10-12-2023 Patient encounter procedure PA Marco Melvin Work Phone: [facility]-Laboratory, Specimen Work Phone: Start: 10-12-2023 End: 10-12-2023 Patient encounter procedure PA Marco Melvin Work Phone: [facility] Work Phone: Start: 09-29-2023 End: 09-29-2023 ambulatory PA Marco Melvin Work Phone: [facility] Work Phone: Start: 09-29-2023 End: 09-29-2023 Patient encounter procedure PA Marco Melvin Work Phone: [facility]-Ultrasound, [facility] Work Phone: Start: 09-22-2023 End: 09-22-2023 ambulatory PA Marco Melvin Work Phone: [facility] Work Phone: Start: 09-22-2023 End: 09-22-2023 Patient encounter procedure PA Marco Melvin Work Phone: [facility]-Outpatient Pavilion Ultrasound Work Phone: Start: 09-19-2023 End: 09-19-2023 Emergency department patient visit PA Marco Melvin Work Phone: [facility]-Emergency Department Work Phone: Start: 09-15-2023 End: 09-15-2023 ambulatory PA Marco Melvin Work Phone: [facility] Work Phone: Start: 09-15-2023 End: 09-15-2023 Patient encounter procedure PA Marco Melvin Work Phone: [facility]-Laboratory Work Phone: Start: 09-13-2023 End: 09-13-2023 ambulatory PA Marco Melvin Work Phone: [facility] Work Phone: Start: 09-13-2023 End: 09-13-2023 Patient encounter procedure PA Marco Melvin Work Phone: [facility]-Laboratory Work Phone: Start: 2023 End: 2023 ambulatory PA Marco Melvin Work Phone: [facility] Work Phone: Start: 2023 End: 2023 Patient encounter procedure PA Marco Melvin Work Phone: [facility]-Laboratory Work Phone: Start: 09-08-2023 End: 09-08-2023 Patient encounter procedure PA Marco Melvin Work Phone: [facility] Work Phone: Start: 09-06-2023 End: 09-06-2023 ambulatory PA Marco Melvin Work Phone: [facility] Work Phone: Start: 09-06-2023 End: 09-06-2023 Patient encounter procedure [facility] Start: 08-25-2023 End: 08-25-2023 ambulatory [facility] Work Phone: Start: 08-25-2023 End: 08-25-2023 Patient encounter procedure [facility] Work Phone: Start: 08-23-2023 End: 08-23-2023 [facility] Start: 08-21-2023 End: 08-21-2023 ambulatory [facility] Work Phone: Start: 08-21-2023 End: 08-21-2023 [facility] Start: 08-15-2023 End: 08-15-2023 ambulatory [facility] Work Phone: Start: 08-15-2023 End: 08-15-2023 [facility] Start: 08-07-2023 End: 08-07-2023 [facility] Start: 08-05-2023 End: 08-05-2023 ambulatory [facility] Work Phone: Start: 08-05-2023 End: 08-05-2023 [facility] Start: 08-03-2023 End: 08-03-2023 ambulatory [facility] Work Phone: Start: 08-03-2023 End: 08-03-2023 [facility] Start: 07-29-2023 End: 07-29-2023 ambulatory [facility] Work Phone: Start: 07-29-2023 End: 07-29-2023 [facility] Start: 03-07-2023 End: 03-07-2023 ambulatory PA Marco Melvin Work Phone: [facility] Work Phone: Start: 03-07-2023 End: 03-07-2023 Patient encounter procedure PA Marco Melvin Work Phone: [facility] Work Phone: Start: 02-15-2023 End: 02-15-2023 Periodic preventive med est patient 18-39 yrs Marco Melvin PA-C Work Phone[facility] Start: 02-15-2023 End: 02-15-2023 Physical examination Marco VINSONC Work Phone: [facility] Start: 01-20-2023 End: 01-20-2023 Patient encounter procedure PA [facility] Start: 12-14-2022 End: 12-14-2022 Patient encounter procedure PA Marco Melvin Work Phone: [facility] Work Phone: Start: 12-02-2022 Non-patient / Non-visit PA Melonie ecca Melvin Work Phone: [facility] Start: 12-02-2022 End: 12-02-2022 Admission to same day surgery center PA Marco [facility]vin [facility] Start: 12-02-2022 End: 12-02-2022 ambulatory PA Marco Melvin Work Phone: [facility] Work Phone: Start: 11-09-2022 End: 11-09-2022 Patient encounter procedure PA Marco Melvin Work Phone: [facility] Start: 10-19-2022 End: 10-19-2022 Patient encounter procedure PA Marco Melvin Work Phone: [facility] Start: 10-14-2022 End: 10-14-2022 Patient encounter procedure PA Marco Melvin Work Phone: [facility] Start: 10-14-2022 End: 10-14-2022 Patient encounter procedure PA Marco Melvin Work Phone: [facility] Start: 09-27-2022 End: 09-27-2022 Office outpatient visit 15 minutes Marco Melvin PA-C [facility] Phone[facility] Start: 08-05-2022 End: 08-05-2022 Office outpatient visit 15 minutes Marco Melvin PA-C Work Phone[facility] Start: 05-12-2022 End: 05-12-2022 Office outpatient visit 15 minutes Marco Melvin PA-C Work Phone: [employer] Start: 04-26-2022 End: 04-26-2022 Office outpatient visit 25 minutes Marco Melvin PA-C Work Phone: [employer] Start: 04-12-2022 End: 04-12-2022 Telephone follow-up Marco Melvin PA-C Work Phone: [employer] Start: 04-08-2022 End: 04-08-2022 Emergency department patient visit [facility]-Emergency Department Start: 04-08-2022 Telephone encounter Hodan Ch yessenia APODACA.CNM Work Phone: OB/Gynecology Comment on above: Heavy Bleeding Start: 02-07-2022 End: 02-07-2022 Office outpatient visit 15 minutes Marco Melvin PA-C Work Phone: [employer] Start: 12-01-2021 End: 12-01-2021 Office outpatient visit 15 minutes Marco Melvin PA-C Work Phone: [employer] Start: 08-03-2021 End: 08-03-2021 Office outpatient visit 15 minutes Marco Melvin PA-C Work Phone: [employer] Start: 05-13-2021 End: 05-13-2021 Office outpatient visit 15 minutes Marco Melvin PA-C Work Phone: [employer] Start: 04-26-2021 End: 04-26-2021 Office outpatient visit 15 minutes Marco Melvin PA-C Work Phone: [employer] Start: 02-27-2020 End: 02-27-2020 Patient encounter procedure Marco Melvin PA-C Work Phone: [employer] Start: 01-31-2020 End: 01-31-2020 Office outpatient new 30 minutes Marco Melvin PA-C Work Phone: [employer] Procedures Date Procedure Procedure Detail Performing Clinician Start: 04-02-2025 Serum progesterone measurement Marco Melvin PA Work Phone: Comment on above: Follicular phase 0.1 - 0.9 Luteal phase 1.8 - 23.9 Ovulation phase 0.1 - 12.0 First trimester 11.0 - 44.3 Second trimester 25.4 - 83.3 Third trimester 58.7 - 214.0 Postmenopausal 0.0 - 0.1Performed at: [facility] [place], [place] [id number] Director: Heri Louis PhD, Phone: [phone] Start: 03-31-2025 Serum progesterone measurement Marco Melvin PA Work Phone: Comment on above: Follicular phase 0.1 - 0.9 Luteal phase 1.8 - 23.9 Ovulation phase 0.1 - 12.0 First trimester 11.0 - 44.3 Second trimester 25.4 - 83.3 Third trimester 58.7 - 214.0 Postmenopausal 0.0 - 0.1Performed at: [address] [place], [place] [id number] Director: Heri Louis PhD, Phone: [phone] Start: 03-28-2025 Serum progesterone measurement Marco Duane LUNA Work Phone: Comment on above: Follicular phase 0.1 - 0.9 Luteal phase 1.8 - 23.9 Ovulation phase 0.1 - 12.0 First trimester 11.0 - 44.3 Second trimester 25.4 - 83.3 Third trimester 58.7 - 214.0 Postmenopausal 0.0 - 0.1Performed at: [address] [place], [place] [id number] Director: Heri Louis PhD, Phone: [phone] Start: 03-24-2025 Serum progesterone measurement Marco Duane LUNA Work Phone: Comment on above: Follicular phase 0.1 - 0.9 Luteal phase 1.8 - 23.9 Ovulation phase 0.1 - 12.0 First trimester 11.0 - 44.3 Second trimester 25.4 - 83.3 Third trimester 58.7 - 214.0 Postmenopausal 0.0 - 0.1Performed at: [employer] [facility] [id number] [place], [place] [id number] Director: Heri Louis PhD, Phone: [phone] Start: 10-14-2024 Plain X-ray abdomen Melonie ronald Melvin CHERYL Work Phone: Start: 10-13-2024 Abdom paracentesis d x/ther w/imaging guidance Jade Carmona DO Work Phone: Start: 10-13-2024 Comprehensive metabo lic panel Jade Elio Gould DO Work Phone: Start: 10-12-2024 Comprehensive metabo lic panel Jade Carmona DO Work Phone: Start: 10-11-2024 CT of thorax, abdome n and pelvis with contrast Marco Melvin CHERYL Work Phone: Start: 08-15-2024 MRI of pelvis with contrast Marco Melvin CHERYL Work Phone: Start: 06-19-2024 Gram stain microscopy R carroll Melvin CHERYL Work Phone: Start: 06-19-2024 Source specific culture Marco Melvin CHERYL Work Phone: Start: 04-10-2024 Glucose post glucose [...] MD Work Phone: Start: 03-15-2024 OXYGEN THERAPY Craolyn Martinez henriqueett PANEL BEATER - HISTORICAL MANUSCRIPTS CURATOR Work Phone: Start: 03-15-2024 Glucose quantitative blood [...] Phone: Start: 03-14-2024 End: 03-14-2024 delivery only [facility] [place][Note 2] Arielle Irizarry Work Phone: Start: 03-14-2024 Glucose quantitative blood xcpt reagent strip Rand Hallman MD Work Phone: Start: 03-14-2024 Us preg uterus real time f/u trnsabdl per fetus Juliana Nguyen DO Work Phone: Start: 03-14-2024 Glucose quantitative blood xcpt reagent strip Rand Hallman MD Work Phone: Start: 03-14-2024 Antibody screen BARAK COVARRUBIAS Comment on above: Performed By: #### L [id number] ####Instructional Systems Designer: GYPSY DAY ([id number])[facility] ([facility] [place] [address] Start: 03-14-2024 Blood typing serolog ic farzaneh (d) Savanah Duarte DO Work Phone: Start: [...] on above: Performed By: #### L [id number] ####Instructional Systems Designer: GYPSY DAY ([id number])[facility] ([address] Start: 03-10-2024 Blood typing serologic abo [...] valid specimen Performed By: #### L [id number] ####Instructional Systems Designer: GYPSY DAY ([id number])[facility] ([facility])[address] [place] [address] Start: 03-06-2024 Blood count complete automated Dali Hall MD Work Phone: Start: 03-06-2024 Blood typing serologic abo Dali Hall MD Work Phone: Start: 03-06-2024 Adult depression scr eening assessment Rand Hallman MD Work Phone: Start: 10-25-2023 Urine culture CHERYL Melvin Work Phone: Start: 09-29-2023 Transvaginal obstetr [...] for Adults (1 - 1-dose 75+ series) [facility] Start: 09-12-2047 Zoster Vaccines (1 of 2) Zoste r Vaccines (1 of 2) [facility] Start: 02-27-2034 DTaP/Tdap/Td Vaccine s (9 - Td or Tdap) DTaP/Tdap/Td Vaccines (9 - Td or Tdap) [facility] Start: 03-31-2025 Patient encounter procedure Registered [facility] -Laboratory Work Phone: Start: 03-06-2025 Depression Screening Depression Scre ening [facility] Start: 03-03-2025 Influenza vaccination Influenz a Vaccine (Season Ended) [facility] Start: 10-14-2024 End: 10-14-2024 [facility] Start: 10-14-2024 Bacteria identified in Urine by Culture Urine Culture [facility] Start: 10-11-2024 [facility] Start: 10-11-2024 Removal of urinary catheter [facility] Start: 09-03-2024 Depression Monitoring Depression Nicola carrizales [facility] Start: 06-19-2024 Patient referral [facility] Work Phone: Start: 05-03-2024 Diabetes mellitus screening Diabetes Screening [facility] Start: 04-25-2024 End: 04-25-2024 Patient encounter procedure 04/25/2024 10:00 AM EDT Office Visit Maternal Medicine [address] [place], [place] [id number] Julianna Ferraro, PANEL BEATER-[place] [address] 4 WEEKS POST [facility] Comment on above: 4 WEEKS POST Start: 03-23-2024 RSV Immunization age d 60 or older (1 - Risk 1-dose series) RSV Immunization aged 60 or older (1 - Risk 1-dose series) [facility] Start: 03-03-2024 COVID-19 (2023-2 5 season) COVID-19 ( season) [facility] Start: 03-03-2024 COVID-19 Vaccine ( season) COVID-19 Vaccine ( season) [facility] Start: 03-03-2024 FLU (#1) FLU (#1) [facility] Start: 03-03-2024 Influenza vaccination Influenza Vacc ine (#1) [facility] Start: 09-19-2023 [facility] Start: 09-19-2023 Transvaginal obstetr ic ultrasonography [facility] Start: 12-02-2022 Anesthesia intraperitoneal lower abd w/laps nos ANESTH SURG LOWER ABDOMEN [facility] Start: 12-02-[address] w/materials REOPEN FALLOPIAN TUBE [facility] Start: 12-02-2022 Laps abd prtm&omentu m dx w/wo spec br/wa spx DIAG LAPARO SEPARATE PROC [facility] Start: 12-02-2022 Ambulation without limitation [facility] Start: 12-02-2022 Medical regimen orde rs management [facility] Start: 12-02-2022 Medication education [facility] Start: 12-02-2022 Patient discharge [facility] Start: 12-02-2022 Procedure discontinued [facility] Start: 12-02-2022 Taking patient vital signs [facility] Start: 12-02-2022 Vital signs measurements [facility] Start: 12-02-2022 [facility] Start: 12-02-2022 Admission procedure [facility] Start: 03-03-2022 Influenza vaccination INFLUENZA (#1) [facility] Start: 10-17-2021 PAP TESTING PAP TESTING [facility] Start: 07-03-2021 DEPRESSION ASSESSMENT DEPRESSION ASS ESSMENT [facility] Start: 04-02-2021 COVID-19 Vaccine (3 - Moderna risk series) COVID-19 Vaccine (3 - Moderna risk series) [facility] Start: 03-01-2020 Urine microalbumin profile DTAP,TDAP,TD (5 - Td or Tdap) [facility] Start: 2018 Microscopic observat ion [Identifier] in Cervix by Cyto stain Pap Smear [facility] Start: 2018 Screening for malign ant neoplasm of cervix Pap Smear [facility] Start: 2016 Hepatitis B (1 of 3 - 19+ 3-dose series) Hepatitis B (1 of 3 - 19+ 3-dose series) [facility] Start: 2016 Pneumococcal Vaccine : Pediatrics (0 to 5 Years) and At-Risk Patients (6 to 49 Years) (1 of 2 - PCV) Pneumococcal Vaccine: Pediatrics (0 to 5 Years) and At-Risk Patients (6 to 49 Years) (1 of 2 - PCV) [facility] Start: 2016 Zoster Vaccines (1 of 2) Zoste r Vaccines (1 of 2) [facility] Start: 09-12-2015 HEPATITIS C [facility]CRE[facility] Start: 09-12-2015 Hepatitis C screening Hepatitis C [facility] Start: 09-12-2015 HIV SCREENING HIV SCREENING [facility] Start: 2013 MenB (1 of 2 - MenB 2-Dose Series Bexsero) MenB (1 of 2 - MenB 2-Dose Series Bexsero) [facility] Start: 2012 HPV (1 - 3-dose series) HPV (1 - 3-d ose series) [facility] Start: 09-12-2011 PEDS TO ADULT TRANSI TION ANNUAL ASSESSMENT PEDS TO ADULT TRANSITION ANNUAL ASSESSMENT [facility] Start: 2010 Varicella (1 of 2 - 13+ 2-dose series) Varicella (1 of 2 - 13+ 2-dose series) [facility] Start: 2009 PEDS TO ADULT TRANSI TION INITIAL DISCUSSION PEDS TO ADULT TRANSITION INITIAL DISCUSSION [facility] Start: 09-12-2007 MENINGOCOCCAL B: Con medical reception specialist based on risk (1 of 2 - Risk Bexsero 2-dose series) MENINGOCOCCAL B: Consider based on risk (1 of 2 - Risk Bexsero 2-dose series) [facility] Start: 2004 Tetanus Diphtheria a nd Pertussis Vaccines (1 - Tdap) Tetanus Diphtheria and Pertussis Vaccines (1 - Tdap) [facility] Start: 1998 MMR (1 of 1 - Standa rd series) MMR (1 of 1 - Standard series) [facility] Start: 03-14-1998 COVID-19 VACCINE (#1) COVID-19 VACCI NE (#1) [facility] Start: 1997 Hemoglobin A1c/Hemoglobin.total in Blood HbA1c [facility] Start: 1997 HIV screening [facility] Screening [facility] Start: 1997 Lipid panel Lipid Panel [facility] CBC W Auto Different ial panel - Blood [facility] Hemoglobin A1c/Hemoglobin.total in Blood [facility] Hepatitis B surface antigen measurement [facility] Hepatitis C antibody measurement [facility] HIV 1+2 Ab+HIV1 p24 Ag [Presence] in Serum or Plasma by Immunoassay [facility] Patient Education [facility] Work Phone: Patient referral [facility] Work Phone: End: 03-06-2024 POCT Fern Test [facility] [employer] Work Phone: Comment on above: Once (Lab) for 1 Occ urrences starting 03/06/2024 until 03/06/2024 Prolactin [Mass/volu me] in Serum or Plasma [facility] Rubella IgG measurement [facility] Treponema sp Ab [Presence] in Serum [facility] Urine culture [facility] Immunizations Immunization Date Immunization Notes Care Provider Fa cility 02-28-2024 tetanus toxoid, redu ashley diphtheria toxoid, and acellular pertussis vaccine, adsorbed Marco LUNA Work Phone: [facility] 03-28-2019 influenza virus vaccine, unspecified formulation Hodan Cecil SHENN.CNM Work Phone: [facility] Work Phone: 04-15-2014 influenza, injectabl e, quadrivalent, contains preservative Hodan Cecil SHENN.CNM Work Phone: [facility] 09-06-2010 human papilloma viru s vaccine, quadrivalent Hodan Jacob PANEL BEATER.CNM Work Phone: [facility] Work Phone: 09-06-2010 Human Papillomavirus 9-valent vaccine Hodan Jacob PANEL BEATER.CNM Work Phone: [facility] 06-07-2010 human papilloma viru s vaccine, quadrivalent Hodan Jacob PANEL BEATER.CNM Work Phone: [facility] Work Phone: 06-07-2010 Human Papillomavirus 9-valent vaccine Hodan Jacob PANEL BEATER.CNM Work Phone: [facility] 03-01-2010 human papilloma viru s vaccine, quadrivalent Hodan Jacob PANEL BEATER.CNM Work Phone: [facility] Work Phone: 03-01-2010 Human Papillomavirus 9-valent vaccine Hodan Jacob PANEL BEATER.CNM Work Phone: [facility] 03-01-2010 meningococcal polysaccharide (groups A, C, Y and W-135) diphtheria toxoid conjugate vaccine (MCV4P) Hodan Jacob APRN.CNM Work Phone: [facility] Work Phone: 03-01-2010 meningococcal polysaccharide vaccine (MPSV4) Hodan Jacob APRN.CNM Work Phone: [facility] 03-01-2010 tetanus toxoid, redu ashley diphtheria toxoid, and acellular pertussis vaccine, adsorbed Hodan Jacob APRN.CNM Work Phone: [facility] Work Phone: 03-01-2010 varicella virus vaccine Raquel Jacob APRN.CNM Work Phone: [facility] Work Phone: 02-02-2010 tetanus toxoid, redu ashley diphtheria toxoid, and acellular pertussis vaccine, adsorbed Hodan Jacob APRN.CNM Work Phone: [facility] 11-04-2002 diphtheria, tetanus toxoids and acellular pertussis vaccine, 5 pertussis antigens Hodan Jacob APRN.CNM Work Phone: [facility] 11-04-2002 diphtheria, tetanus toxoids and acellular pertussis vaccine, unspecified formulation Hodan Jacob APRN.CNM Work Phone: [facility] Work Phone: 11-04-2002 measles, mumps and rubella virus vaccine Hodan Jacob APRN.CNM Work Phone: [facility] Work Phone: 11-04-2002 measles, mumps, rubella, and varicella virus vaccine Hodan Jacob APRN.CNM Work Phone: [facility] 11-04-2002 poliovirus vaccine, inactivated Hodan Jacob APRN.CNM Work Phone: [facility] Work Phone: 10-22-1999 varicella virus vaccine Raquel Jacob APRN.CNM Work Phone: [facility] 10-11-1999 varicella virus vaccine Raquel Jacob APRN.CNM Work Phone: [facility] Work Phone: 06-07-1999 diphtheria, tetanus toxoids and acellular pertussis vaccine, 5 pertussis antigens Hodan Jacob APRN.CNM Work Phone: [facility] 10-26-1998 measles, mumps, rubella, and varicella virus vaccine Hodan Jacob APRN.CNM Work Phone: [facility] 10-21-1998 haemophilus influenz ae type b conjugate and Hepatitis B vaccine Hodan Jacob PANEL BEATER.CNM Work Phone: [facility] Work Phone: 10-21-1998 haemophilus influenz ae type b vaccine, HbOC conjugate Hodan Jacob APRN.CNM Work Phone: [facility] 10-21-1998 hepatitis B immune globulin Hodan Jacob APRN.CNM Work Phone: [facility] 10-21-1998 measles, mumps and rubella virus vaccine Hodan Jacob APRN.CNM Work Phone: [facility] Work Phone: 04-22-1998 diphtheria, tetanus toxoids and acellular pertussis vaccine, 5 pertussis antigens Hodan Jacob APRN.CNM Work Phone: [facility] 04-22-1998 haemophilus influenz ae type b vaccine, HbOC conjugate Hodan Jacob APRN.CNM Work Phone: [facility] 04-22-1998 poliovirus vaccine, inactivated Hodan Jacob APRN.CNM Work Phone: [facility] 01-14-1998 diphtheria, tetanus toxoids and acellular pertussis vaccine, 5 pertussis antigens Hodan Jacob APRN.CNM Work Phone: [facility] 01-14-1998 haemophilus influenz ae type b vaccine, HbOC conjugate Hodan Jacob APRN.CNM Work Phone: [facility] 01-14-1998 poliovirus vaccine, inactivated Hodan Jacob PANEL BEATER.CNM Work Phone: [facility] 1995 diphtheria, tetanus toxoids and acellular pertussis vaccine, 5 pertussis antigens Hodan Cecil SHENN.CNM Work Phone: [facility] 1995 haemophilus influenz ae type b conjugate and Hepatitis B vaccine Hodan Cecil SHENN.CNM Work Phone: [facility] Work Phone: 1995 haemophilus influenz ae type b vaccine, HbOC conjugate Hodan Cecil PANEL BEATER.CNM Work Phone: [facility] 1995 hepatitis B immune globulin Hodan Cecil PANEL BEATER.CNM Work Phone: [facility] 1995 poliovirus vaccine, inactivated Hodan Cecil PANEL BEATER.CNM Work Phone: [facility] 1995 hepatitis B immune globulin Hodan Cecil PANEL BEATER.CNM Work Phone: [facility] 1997 hepatitis B vaccine, pediatric or pediatric/adolescent dosage Hodan Cecil PANEL BEATER.CNM Work Phone: [facility] Work Phone: NEGATED: Highlighted row has not occurred!03-15-2024 measles, mumps and rubella virus vaccine Rand Hallman MD Work Phone: [facility] Comment on above: Deferred: No longer needed NEGATED: Highlighted row has not occurred!03-15-2024 tetanus toxoid, reduced diphtheria toxoid, and acellular pertussis vaccine, adsorbed Rand Hallman MD Work Phone: [facility] Comment on above: Deferred: No longer needed NEGATED: Highlighted row has not occurred!03-13-2024 influenza, injectable, madin bruce canine kidney, preservative free Rand Hallman MD Work Phone: [facility] Comment on above: Deferred: Patient Re fused - not now per pt Payers Date Payer Category Payer Unknown [id number] 2024 Self-pay [id number] 2023 Commercial Managed C are - [employer] [id number] 2023 Unknown [id number] 2021 Unknown [id number]. 1.13.159. [id number] 2006 Unknown MOE [id number] 1997 Unknown [id number] 2.16.840.1.427144.3.579. 2 1997 Unknown [id number] 2.16.840.1.910808.3.579. 2 1997 Unknown [id number] 2.16.840.1.621621.3.579. 2 1997 Unknown [id number] 2.16.840.1.847383.3.579. 2 1997 Unknown [id number] 2.16.840.1.997208.3.579. 2 1997 Unknown [id number] 2.16.840.1.203375.3.579. 247 1997 Unknown [id number] 2.16.840.1.983023.3.579. 2 1997 Unknown [id number] 2.16.840.1.331532.3.579. 2.479 1997 Unknown [id number] 2.16.840.1.695012.3.579. 2.651 1997 Unknown [id number] 2.16.840.1.377039.3.579. 2.627 1997 Unknown [id number] 2.16.840.1.955459.3.579. 2.627 1997 Unknown [id number] 2.16.840.1.584650.3.579. 2.627 1997 Unknown [id number] 2.16.840.1.850808.3.579. 2.627 1997 Unknown [id number] 2.840.1.983966.3.579. 2.627 1997 Unknown [id number] 2.840.1.887263.3.579. 2.627 Unknown ANTHEM SECONDARY [id number] Unknown [id number] 2.16840.1.972387.3.579. 2.462 Unknown [id number] 2.840.1.950265.3.579. 2.462 Unknown [id number] 2.840.1.157213.3.579. 2.462 Unknown [id number] 2.16840.1.300805.3.579. 2.462 Unknown [id number] 2.16840.1.524474.3.579. 2.462 Unknown [id number] 2.16840.1.592819.3.579. 2.462 Unknown [id number] 2.16840.1.441176.3.579. 2.462 Unknown [id number] 2.16840.1.600119.3.579. 2.462 Unknown [id number] 2.16.840.1.178929.3.579. 2.462 Unknown [id number] 2.16.840.1.483693.3.579. 2.462 Unknown [id number] 2.16.840.1.130192.3.579. 2.462 Social History Date Type Detail Facility Start: 11-05-2018 End: 03-06-2024 Tobacco smoking status NHIS Never smoked tobacco [facility] Start: 11-05-2018 End: 03-06-2024 Tobacco use and exposure Smokeless tobacco non-user [facility] Start: 08-27-2021 Alcohol intake Current non-dr tower cleaner of alcohol (finding) [facility] Start: 1995 Sex Assigned At Not on file [facility] Start: 04-08-2022 End: 10-12-2023 Tobacco smoking status [facility] Unknown if ever smoked [facility] Start: 02-06-[address] [facility] Start: 1995 Sex Assigned At Female W [facility] Tobacco Use: Tobacco Use: ; Current every day smoker. [employer] [place]. Smokes tobacco daily [employer] [place]. Work Phone: Start: 08-26-2023 [facility] Start: 03-06-2024 End: 10-12-2024 Alcoholic beverage intake Ex-drinker (finding) [facility] Start: 03-11-2024 End: 10-12-2024 History of Social function [facility] Start: 03-11-2024 End: 10-12-2024 [facility] Utilities [facility] Has the [employer], [employer], or water [employer] threatened to shut off services in your home in past 12Mo No [employer] (I/We) worried wheth er (my/our) food would run out before (I/we) got money to buy more. Never true [employer] In the past 12 month s, has lack of transportation kept you from medical appointments or from getting medications? No [facility] Start: 10-11-2024 End: 03-06-2025 Tobacco smoking status NHIS Ex-smoker (finding) [facility] Start: 10-12-2024 End: 10-14-2024 Sex Female (finding) [facility] How often to you hav e a drink containing alcohol? Never [facility] Do you feel stress - tense, restless, nervous, or anxious, or unable to sleep at night because your mind is troubled all the time - these days [OSQ] Only a little [facility] NEGATED: Highlighted row [facility] Medical Equipment Procedure Code Equipment Code Equipment [...] Assessment Result Facility 12-02-2022 Cognitive function Voice/Name [facility] Work Phone: Clinical Notes 09-13-2011 to 03-06-2025 Note Date & Type Note Facility 03-06-2025 Evaluation note Diagnosis Onset Date Resolution Encounter for routine gynecological examination noneactive March 06 025 2:30pm [facility] Work Phone: 1(463) 611-714204-14-2025 Discharge summary [facility] Medical Records Department [address] [place] [address] Emergency Department Summary 10/14/24 MR#: [id number] Acct: [id number] Name: JOSE EDWARD Rep #:[id number] : 1995 29 From: Soren Babcock MD PCP: CHERYL Samano Status:REG ER Location: ED HPI History of Present Illness Chief Complaint: Abd Pain Narrative Narrative: 29-year-old female presents with abdominal pain. On 10/11/2024 she drove to [place], [place] to have egg retrieval at a fertility clinic. They did the procedure vaginally and punctured her bladder while retrieving some eggs. They prescribed Keflex and Pyridium. She drove home that same day and developed chest pain, shortness of breath, nausea and abdominal pain and had difficulty emptying her bladder. She was evaluated at [place] ED on the same day 10/[address] scan of chest abdomen pelvis negative for PE. There were enlarged ovaries with numerous cysts and moderate volume ascites compatible with ovarian hyperstimulation syndrome. She also had a West placed for urinary retention. She was transferred to [facility] for definitive treatment. She statesthey attempted [...] Her West catheter was also removed yesterday. Shereenashley also prescribed Lovenox shots x1 week. She [...] 02/28/24 Unknown R x (FreeStyle Lexi 2 [place]) flash glucose sensor (FreeStyle #1 ea 02/28/24 Unknown Rx Lexi 2 Sensor kit) PNV no.151-iron 27 mg-folic 800 1 cap PO DAILY 5 Unknown History mcg-omega3 260 ry-eeq-gvq-fish capsule ( Multi-DHA (with vitamin K)) cabergoline [...] Diabetes Uncle Diabetes Grandmother Diabetes Surgical History Schaller teeth extracted History of hysteroscopy Status post laparoscopy S/P D&C (status post dilation and curettage) Hx of lumpectomy History of tonsillectomy and adenoidectomy Social History adopted: No household members: spouse number of children: 0 current occupational status: employed current occupation: [employer] current occupational exposures/hazards: No pets and animals: [...] physical activity do you participate in: none jessica/yazidi: Jew seatbelt use: always do you feel safe at home: Yes additional social history: - Rene- Chuck PHILLIPS ROS ED ROS Narrative Constitutional: Negative for [...] constipation, and urinary issues. She was at [facility] the last few days and they [...] % (Auto) 69.3 Lymph % (Auto) 21.9 Ceiba % (Auto) 6.5 Eos % (Auto) 1.6 [...] Sl. Cloudy Urine pH 7.0 Ur Specific [place] 1.015 Urine Protein 30 H Urine Glucose [...] X-Ray 10/14/24 21:24 IMPRESSION: CONSTIPATION. Reading [facility] Narrative Medical decision making narrative: Differential includes but not limited to: Urinary retention, UTI, intra- abdominal infection, ovarian hyperstimulation, constipation 29-year-old female had eggs retrieval 3 days ago and was told her bladder was punctured. Since thenshe has had nausea, abdominal pain constipation, and urinary issues. She was at [facility] the last few days and they [...] up at a CT was sent to [facility]. They attempted at that time a [...] % (Auto) 69.3 Lymph % (Auto) 21.9 Ceiba % (Auto) 6.5 Eos % (Auto) 1.6 [...] Sl. Cloudy Urine pH 7.0 Ur Specific [place] 1.015 Urine Protein 30 H Urine Glucose [...] X-Ray 10/14/24 21:24 IMPRESSION: CONSTIPATION. Reading [facility] Discharge Plan Triage Chief Complaint: Abd Pain ED Midlevel Provider: Anabella Malave ED Provider: Soren Babcock Dx/Rx/DC Orders Clinical Impression: Constipation, Abdominal pain, Ovarian hyperstimulation syndrome Instructions: Abdominal Pain, ED Constipation (Adult) Prescriptions: No Action omeprazole 20 mg tablet,delayed release (DR/EC) 20 mg PO DAILY (DME) FreeStyle Lexi 2 [place] Misc See Rx Instructions .Route Qty: 1 [...] you take magnesium citrate which is sold ywgb-lxs-akdjfee. Drink plenty of water and Gatorade to avoid dehydration as this will cause a lot of bowel movements. You also could be having pain from the ovarian hyperstimulation syndrome which should get better over time. I recommend follow-up with your KERRICK KLEANER OPERATOR. Print Language: Taiwanese Disposition Disposition: Home, Self Care What to do if you have Problems For any increased pain, shortness of breath, bleeding, nausea or vomiting, chestpain, or any unexpected problems, contact your Primary Care Provider. Call [facility] ([phone]) or report tothe closest Emergency Room. Call 911 if necessary. 10/14/242145 Cosigner Signature (if applicable): 10/14/242142 CC: CHERYL Samano ~ Signed [facility]04-14-2025 Radiology Diagnostic study note [facility] Imaging Services [address] [place] [address] Abdomen Single View (Portable) MR#: [id number] Acct: [id number] Name: JOSE EDWARD Rep #: [id number] : 1995 F 29 From: Makenna Brown DO PCP: CHERYL Samano Status: PRE ER Study:Abdomen Single View (Portable) Date of Exam: 10/14/24 Exam# [id number] Ordering Dr: Anabella Akers PROCEDURE: ABDOMEN SINGLE [...] [facility] CC: CHERYL Weinstein; CHERYL Samano ~ Follow Up Specialist: Signed [facility]04-14-2025 Discharge summary Author Soren Babcock [facility] Note Date/Time October 14, 2024 9:4 6pm [facility] Medical Records Department [address] [place] [address] Emergency Department Summary 10/14/24 MR#: [id number] Acct: [id number] Name: JOSE EDWARD Rep #:[id number] : 1995 29 From: Soren Babcock MD PCP: CHERYL Samano Status:REG ER Location: ED HPI <CHERYL Weinstein - Last Filed: 10/14/24 21:43> History of Present Illness Chief Complaint: Abd Pain Narrative Narrative: 29-year-old female presents with abdominal pain. On 10/11/2024 she drove to [place], [place] to have egg retrieval at a fertility clinic. They did the procedure vaginally and punctured her bladder while retrieving some eggs. They prescribed Keflex and Pyridium. She drove home that same day and developed chest pain, shortness of breath, nausea and abdominal pain and had difficulty emptying her bladder. She was evaluated at [place] ED on the same day 10/[address] scan of chest abdomen pelvis negative for PE. There were enlarged ovaries with numerous cysts and moderate volume ascites compatible with ovarian hyperstimulation syndrome. She also had a West placed for urinary retention. She was transferred to [facility] for definitive treatment. She statesthey attempted [...] and shortness of breath are much better. [facility] <CHERYL Weinstein - Last Filed: 10/14/24 21:43> [facility] Medical History Abnormal uterine bleeding [...] 02/28/24 Unknown R x (FreeStyle Lexi 2 [place]) flash glucose sensor (FreeStyle #1 ea 02/28/24 Unknown Rx Lexi 2 Sensor kit) PNV no.151-iron 27 mg-folic 800 1 cap PO DAILY 5 Unknown History mcg-omega3 260 fq-cja-fiu-fish capsule ( Multi-DHA (with vitamin K)) cabergoline [...] Diabetes Uncle Diabetes Grandmother Diabetes Surgical History Schaller teeth extracted History of hysteroscopy Status post laparoscopy S/P D&C (status post dilation and curettage) Hx of lumpectomy History of tonsillectomy and adenoidectomy Social History adopted: No household members: spouse number of children: 0 current occupational status: employed current occupation: [employer] current occupational exposures/hazards: No pets and animals: [...] physical activity do you participate in: none jessica/yazidi: Jew seatbelt use: always do you feel safe [...] Oxygen Delivery Method Room Air MDM <CHERYL Weinsteni - Last Filed: 10/14/24 21:43> [facility] Narrative Medical decision making narrative: Differential includes but not limited to: Urinary retention, UTI, intra- abdominal infection, ovarian hyperstimulation, constipation 29-year-old female had eggs retrieval 3 days ago and was told her bladder was punctured. Since then she has had nausea, abdominal pain constipation, and urinary issues. She was at [facility] the last few days and they [...] % (Auto) 69.3 Lymph % (Auto) 21.9 Ceiba % (Auto) 6.5 Eos % (Auto) 1.6 [...] Sl. Cloudy Urine pH 7.0 Ur Specific [place] 1.015 Urine Protein 30 H Urine Glucose [...] X-Ray 10/14/24 21:24 IMPRESSION: CONSTIPATION. Reading Location: [facility] <Dr. Soren Babcock MD - Last Filed: 10/14/24 21:46> MDM MDM Narrative Medical decision making narrative: Differential includes but not limited to: Urinary retention, UTI, intra- abdominal infection, ovarian hyperstimulation, constipation 29-year-old female had eggs retrieval 3 days ago and was told her bladder was punctured. Since then she has had nausea, abdominal pain constipation, and urinary issues. She was at [facility] the last few days and they [...] up at a CT was sent to [facility]. They attempted at that time a [...] % (Auto) 69.3 Lymph % (Auto) 21.9 Ceiba % (Auto) 6.5 Eos % (Auto) 1.6 [...] Sl. Cloudy Urine pH 7.0 Ur Specific [place] 1.015 Urine Protein 30 H Urine Glucose [...] X-Ray 10/14/24 21:24 IMPRESSION: CONSTIPATION. [facility] Discharge Plan Triage Chief Complaint: Abd Pain ED Midlevel Provider: Anabella Malave ED Provider: Soren Babcock Dx/Rx/DC Orders Clinical Impression: Constipation, Abdominal pain, Ovarian hyperstimulation syndrome Instructions: Abdominal Pain, ED Constipation (Adult) Prescriptions: No Action omeprazole 20 mg tablet,delayed release (DR/EC) 20 mg PO DAILY (DME) FreeStyle Lexi 2 [place] Misc See Rx Instructions .Route Qty: 1 [...] you take magnesium citrate which is sold rmgf-lhg-rvfoxht. Drink plenty of water and Gatorade to avoid dehydration as this will cause a lot of bowel movements. You also could be having pain from the ovarian hyperstimulation syndrome which should get better over time. I recommend follow-up with your KERRICK KLEANER OPERATOR. Print Language: Taiwanese Disposition Disposition: Home, Self Care What to do if you have Problems For any increased pain, shortness of breath, bleeding, nausea or vomiting, chestpain, or any unexpected problems, contact your Primary Care Provider. Call [facility] ([phone]) or report to the closest Emergency Room. Call 911 if necessary. 10/14/242145 <Electronically signed by Soren Babcock MD> Cosigner Signature (if applicable): 10/14/242142 <Electronically signed by Anabella LUNA> CC: CHERYL Samano ~ Signed [facility] Work Phone: 1(341) 620-532404-13-2025 NoteGyn Discharge Summary Patient Name: Jose Edward [...] Follow up in 1-2 weeks with primary KERRICK KLEANER OPERATOR, Dr. Velarde. Discharge instructions reviewed and questions [...] up: 1 to 2 weeks with primary KERRICK KLEANER OPERATOR Condition on discharge: good and stable Discharge Date: 10/13/24 Comments: Home care, Follow-up care, restrictions reviewed. Jade Elio Gould DO 10/13/2024, 11:44 [facility]04-13-2025 Hospital course Narrative* Jade Elio Gould, - 10/13/2024 11:42 AM EDT Images from the original note were not included. Communications Billing Analyst Discharge Summary Patient Name: Jose Edward Patient [...] Follow up in 1-2 weeks with primary KERRICK KLEANER OPERATOR, Dr. Velarde. Discharge instructions reviewed and questions [...] up: 1 to 2 weeks with primary KERRICK KLEANER OPERATOR Condition on discharge: good and stable Discharge Date: 10/13/24 Comments: Home care, Follow-up care, restrictions reviewed. Jade Carmona DO 10/13/2024, 11:44 AM Cosigned by Gypsy Pelayo MD at 10/13/2024 12:56 PM EDT documented in this [facility]04-13-2025 History of Present illness Narrative* Jade Carmona DO - 10/13/2024 6:11 AM EDT Images from the original note were not included. ENGINEERING DESIGNER Progress Note Date: 10/13/2024 Time: 6:11 AM [...] PRN, Dali Hall MD, 5 mg at10/12/24 182 phenazopyridine (Pyridium) tablet 200 mg, 200 mg, Oral, BID, Jade Carmona DO, 200 mg at 10/12/241999 polyethylene glycol [...] Problem: Ovarian hyperstimulation syndrome Please page the [facility] O[facility]YN Call RES group via Secure [...] distended. Awaiting paracentesis today. documented in this [facility]04-13-2025 Plan of care note* Care Plan - [...] monitored and maintained or improved Outcome: [facility]ing [id number] Miscellaneous Notes* Care Plan - Lucinda Poe [...] or improved Outcome: Progressing documented in this [facility]04-12-2025 Plan of care note* Care Plan - [...] monitored and maintained or improved Outcome: Progressing [id number] History and physical note* Jade Carmona, DO - 10/12/2024 5:56 AM EDT Images from the original note were not included. KERRICK KLEANER OPERATOR H&P Patient Name: Jose Edward Patient : 1995 [facility] Admission Date/Time: 10/12/2024 3:14 AM Primary Care Physician: Marco Melvin HPI: Jose Edward is a 29 y.o. female patient transferred from [place] ED for concern for ovarian hyperstimulation syndrome. [...] abdominal distention, nausea -Patient was evaluated at [place] ED initially and obtained imaging as stated below, imaging is available on PACS -CT A/P 10/11 no traumatic abdominal aortic injury or retroperitoneal hematoma, markedly enlarged ovaries with numerous ovarian cysts and moderate volume ascites, compatible with ovarian hyperstimulation - CTA 10/11 no traumatic thoracic aortic aneurysm or mediastinal hematoma ectasia of the main pulmonary artery seen in pulmonary hypertension -Patient transferred to [facility] for further management -CBC, CMP, coags [...] pain management -Avoid NSAIDs Please page the [facility] OBGYN Call RES group via Secure [...] care as documented in the resident's note. [id number] Note Attestation signed by Malia Reina MD at 10/12/2024 10:19 PM Hospital Care (Independent): I independently saw and evaluated the patient. I agree with the findings and plan of care as documented in the resident's note. KERRICK KLEANER OPERATOR H&P Patient Name: Jose Edward Patient : 1995 Room/Bed: 5110/5110 A Admission Date/Time: 10/12/2024 3:14 AM Primary Care Physician: Marco Melvin HPI: Jose Edward is a 29 y.o. female patient transferred from [place] ED for concern for ovarian hyperstimulation syndrome. [...] Ringer's infusion 100 mL/hr IntraVENous Continuous Jade Elio Torresk, DO 100 mL/hr at 10/12/24 0522 100 [...] mL 5-40 mL IntraVENous q12h Jade Van Melissak, DO 10 mL at 10/12/24 0400 sodium [...] and atraumatic. Pulm (more content not included)...[facility]04-12-2025 History and physical note* Jade Carmona, DO - 10/12/2024 5:56 AM EDT Images from the original note were not included. KERRICK KLEANER OPERATOR H&P Patient Name: Jose Edward Patient : 1995 [facility] Admission Date/Time: 10/12/2024 3:14 AM Primary Care Physician: Marco Melvin HPI: Jose Edward is a 29 y.o. female patient transferred from [place] ED for concern for ovarian hyperstimulation syndrome. [...] 100 mL/hr at 10/12/24521, 100 mL/hr at 10/12/24521 ondansetron ODT (Zofran-ODT) disintegrating tablet 4 mg, [...] 5-40 mL 5-40 mL IntraVENous q12h Jade Carmona, DO 10 mL at 10/12/24 0400 sodium [...] abdominal distention, nausea -Patient was evaluated at [place] ED initially and obtained imaging as stated below, imaging is available on PACS -CT A/P 10/11 no traumatic abdominal aortic injury or retroperitoneal hematoma, markedly enlarged ovaries with numerous ovarian cysts and moderate volume ascites, compatible with ovarian hyperstimulation - CTA 10/11 no traumatic thoracic aortic aneurysm or mediastinal hematoma ectasia of the main pulmonary artery seen in pulmonary hypertension -Patient transferred to [facility] for further management -CBC, CMP, coags [...] pain management -Avoid NSAIDs Please page the [facility] OBGYN Call RES group via Secure [...] in the resident's note. documented in this [facility]04-12-2025 Discharge summary [facility] Medical Records Department [address] [place] [address] Emergency Department Summary 10/11/24 MR#: [id number] Acct: [id number] Name: JOSE EDWARD Rep #:[id number] : 1995 29 From: Fern Marroquin DO PCP: CHERYL Samano Status:REG ER Location: ED HPI History of Present Illness Chief Complaint: Shortness of Breath Detail of Chief Complaint: Shortness of breath and abdominal pain Informant: patient Narrative Narrative: Patient presents to the emergency department complaint shortness of breath and abdominal pain that started this morning. Patient states that she had driven [employer] this morning to have eggretrieval at a [...] 02/28/24 Unknown R x (FreeStyle Lexi 2 [place]) flash glucose sensor (FreeStyle #1 02/28/24 Unknown Rx Lexi 2 Sensor kit) PNV no.151-iron 27 mg-folic 800 1 cap PO DAILY 5 Unknown History mcg-omega3 260 qf-gmy-pph-fish capsule ( Multi-DHA (with vitamin K)) cabergoline 0.5 mg tablet 0.5 mg PO DAILY 10/11/24 Unk nown History cephalexin 500 mg capsule 500 mg PO BID 10/11/24 Unkno wn History cholecalciferol (vitamin D3) 50 2,000 unit PO DAILY Unknown History mcg (2,000 unit) capsule (D3-1999) metformin [...] Diabetes Uncle Diabetes Grandmother Diabetes Surgical History Schaller teeth extracted History of hysteroscopy Status post laparoscopy S/P D&C (status post dilation and curettage) Hx of lumpectomy History of tonsillectomy and adenoidectomy Social History adopted: No household members: spouse number of children: 0 current occupational status: employed current occupation: [employer] current occupational exposures/hazards: No pets and animals: [...] physical activity do you participate in: none jessica/yazidi: Jew seatbelt use: always do you feel safe [...] patient to tertiary care center at [facility] for definitive treatment. Discussed case with Dr. Covarrubias at [facility] who accepted transfer ofpatient to their [...] 87.1 H Lymph % (Auto) 8.2 L Ceiba % (Auto) 4.0 Eos % (Auto) 0.0 [...] Clarity Clear Urine pH 7.0 Ur Specific [place] 1.010 Urine Protein 30 H Urine Glucose [...] compatible with ovarian hyperstimulation syndrome. Reading Location: [facility] Discharge Plan Triage Chief Complaint: Shortness of Breath Other Complaint: Abd Pain ED Provider: Fern Marroquin Dx/Rx/DC Orders Clinical Impression: Abdominal pain, Ovarian hyperstimulation syndrome, Leukocytosis, Acute urinary retention Prescriptions: No Action omeprazole 20 mg tablet,delayed release (DR/EC) 20 mg PO DAILY (DME) FreeStyle Lexi 2 [place] Misc See Rx Instructions .Route Qty: 1 [...] PA [Primary Care Provider] - Print Language: Taiwanese Disposition Disposition: DC/Tx to Another Type of HCF What to do if you have Problems For any increased pain, shortness of breath, bleeding, nausea or vomiting, chestpain, or any unexpected problems, contact your Primary Care Provider. Call [facility] ([phone]) or report tothe closest Emergency Room. Call 911 if necessary. 10/12/24 000 Cosigner Signature (if applicable): CC: CHERYL Samano ~ Signed [facility]04-11-2025 Radiology Diagnostic study note [facility] Imaging Services [address] [place], [place] [address] CTA Chst, Abd, Pel W and/or WO MR#: [id number] Acct: [id number] Name: JOSE EDWARD Rep #: [id number] : 1995 F 29 From: Afia Francis MD PCP: CHERYL Samano Status: REG ER Study:CTA Chst, Abd, Pel W and/or WO Date of Exam: 10/11/24 Exam# [id number] Ordering Dr: Delma Marroquin DO PROCEDURE: CTA [...] compatible with ovarian hyperstimulation syndrome. Reading Location: [facility] CC: Dr. Fern Marroquin DO; CHERYL Samano ~ Follow Up Specialist: Signed [facility]04-11-2025 Discharge summary Author Fern Marroquin [facility] Note Date/Time October 12, 2024 12: 06am [facility] Medical Records Department [address] [place] [address] Emergency Department Summary 10/11/24 MR#: [id number] Acct: [id number] Name: JOSE EDWARD Rep #:[id number] : 1995 29 From: Fern Marroquin DO PCP: CHERYL Samano Status:REG ER Location: ED HPI History of Present Illness Chief Complaint: Shortness of Breath Detail of Chief Complaint: Shortness of breath and abdominal pain Informant: patient Narrative Narrative: Patient presents to the emergency department complaint shortness of breath and abdominal pain that started this morning. Patient states that she had driven [facility] this morning to have egg retrieval at [...] Rx Glucose Test strips) blood-glucose meter #1 02/26/24 Unknown Rx lancets 30 gauge (Droplet Lancets) #200 02/26/24 Un known Rx flash glucose scanning reader #1 02/28/24 Unknown R x (FreeStyle Lexi 2 [place]) flash glucose sensor (FreeStyle #1 ea 02/28/24 Unknown Rx Lexi 2 Sensor kit) PNV no.151-iron 27 mg-folic 800 1 cap PO DAILY 5 Unknown History mcg-omega3 260 bb-hrz-byr-fish capsule ( Multi-DHA (with vitamin K)) cabergoline [...] Diabetes Uncle Diabetes Grandmother Diabetes Surgical History Schaller teeth extracted History of hysteroscopy Status post laparoscopy S/P D&C (status post dilation and curettage) Hx of lumpectomy History of tonsillectomy and adenoidectomy Social History adopted: No household members: spouse number of children: 0 current occupational status: employed current occupation: [employer] current occupational exposures/hazards: No pets and animals: [...] physical activity do you participate in: none jessica/yazidi: Jew seatbelt use: always do you feel safe [...] patient to tertiary care center at [facility] for definitive treatment. Discussed case with Dr. Covarrubias at [facility] who accepted transfer of patient to [...] 87.1 H Lymph % (Auto) 8.2 L Ceiba % (Auto) 4.0 Eos % (Auto) 0.0 [...] Clarity Clear Urine pH 7.0 Ur Specific [place] 1.010 Urine Protein 30 H Urine Glucose [...] compatible with ovarian hyperstimulation syndrome. Reading Location: [id number] Discharge Plan Triage Chief Complaint: Shortness of Breath Other Complaint: Abd Pain ED Provider: Fern Marroquin Dx/Rx/DC Orders Clinical Impression: Abdominal pain, Ovarian hyperstimulation syndrome, Leukocytosis, Acute urinary retention Prescriptions: No Action omeprazole 20 mg tablet,delayed release (DR/EC) 20 mg PO DAILY (DME) FreeStyle Lexi 2 [place] Misc See Rx Instructions .Route Qty: 1 [...] PA [Primary Care Provider] - Print Language: Taiwanese Disposition Disposition: DC/Tx to Another Type of HCF What to do if you have Problems For any increased pain, shortness of breath, bleeding, nausea or vomiting, chestpain, or any unexpected problems, contact your Primary Care Provider. Call [facility] ([phone]) or report to the closest Emergency Room. Call 911 if necessary. 10/12/24 0006 <Electronically signed by Fern Marroquin DO> Cosigner Signature (if applicable): CC: CHERYL Samano ~ Signed [facility] Work Phone: 1(553) 198-474012-18-2024 Evaluation note* Diagnosis Onset Date Resolution Status Admit Date Amenorrhea acute June 19, 2024 9:36am Pelvic floor dysfunction acute June 19, 2024 9:36am Vaginal discharge acute Decembe r 2023 9:36am [facility] Work Phone: 1(499) 242-875709-15-2024 Nurse Note* Maryellen Posey RN - 03/17/2024 6:40 PM EDT Mom discharged mom in good condition with all belongings to a private residence, accompanied by . All discharge instructions reviewed with patient who verbalizes understanding and denies further questions.Mom walked out at [address] [facility] [id number] Nurse Note* Maryellen Posey RN - 03/17/2024 [...] cramping / contractions occur. documented in this [facility]09-15-2024 [facility] Discharge Summary [...] Information for the patient's : Marcus Edward [[id number]] male 3 lb 6.7 oz (1.55 kg) Apgars: Information for the patient's : Marcus Edward [[id number]] : : Boy, Blood Type/Rh: O Antibody [...] Your Medications These medications were sent to [facility] [address] [place] [id number] Hours: Monday to Monday 10 am to [...] [] Order a blood pressure kit through [facility] (or the patient's own pharmacy on the weekend) [] Order the blood pressure log through [employer] [] Place an office visit or telephone [...] notify her physician if any of these occur.[facility] [id number] Hospital course Narrative* Wendi Aguilar MD - [...] Information for the patient's : Marcus Edward [[id number]] male 3 lb 6.7 oz (1.55 kg) Apgars: Information for the patient's : Marcus Edward [[id number]] : Infant: Boy, Blood Type/Rh: O Antibody [...] Your Medications These medications were sent to [facility] [address] [place] [address] Hours: Monday to Monday 10 am to [...] [] Order a blood pressure kit through [facility] (or the patient's own pharmacy on the weekend) [] Order the blood pressure log through [facility] [] Place an office visit or telephone [...] any of these occur. documented in this [facility]09-15-2024 Miscellaneous Notes* Note - Melissa Mantilla RN - 03/17/2024 8:00 AM EDT Check in with mom, pumping for 30 5/7 week in NICU. Mom is pumping 15cc per session. Observed pump session and resized her flanges to 22.5mm. Mom was given Spectra pump from [facility] senior talent management consultant. Answer mom's questions. Discharge today. * [...] Date: 03/15/2024 Name: Jose Edward : 1995 [facility] Information Emmalena Patient Information Primary Caregiver: Self Accompanied by/Relationship: S/O;Family Marital Status: Support System: SO/Family Gnosticist/Cultural Factors: none Activities of Daily Living Communication: [...] 30 6/7 weeks. [place] [facility]). Nurse has mom set up with [...] electric breast pump- [facility]All questions answered. Will [...] closely. Savanah Duarte DO 03/13/2024 11:23 PM [place] more cramping. 1cm dilated. Reportedly was 1cm [...] options for home going pump; pt has [employer] insurance. Availability of LC for NICU and reviewed. Payvment handout Your NICU Baby given and reviewed. Encouraged to watch videos from [employer] to support her goals. Resource numbers given for [facility] dept and [facility] [employer] dept. Encouraged to call with [...] in the possibility of staying at the [facility] after delivery due to living approx. 2 hours away; patient and provided background check paperwork; will be faxed to [facility] referral line; Will consult for patient as pt would like to see prior to delivery * Care Coordination - Amy Connor RN - 03/07/2024 10:58 AM EDT Date: 03/07/2024 Name: Jose Edward : 1995 [facility] Information Emmalena - transport Patient Information Primary Caregiver: Self Accompanied by/Relationship: S/O;Family Marital Status: Support System: SO/Family Gnosticist/Cultural Factors: Activities of Daily Living Communication: See [...] N/A Children's Services: N/A documented in this [facility]09-15-2024 Obstetrics Note* Note - Melissa Mantilla RN - 03/17/2024 8:00 AM EDT Check in with mom, pumping for 30 5/7 week in NICU. Mom is pumping 15cc per session. Observed pump session and resized her flanges to 22.5mm. Mom was given Spectra pump from [facility] senior talent management consultant. Answer mom's questions. Discharge today. [facility] [id number] History of Present illness Narrative* Chelsie Swenson, DO - 03/17/2024 5:47 AM EDT Images from [...] 03/14 - Dexcom in place (share code [id number]) - Discontinued meds after delivery and have [...] away so will stay in NICU and [facility] when a spot opens. Has a [...] minutes chart review and documentation * Juliana Nguyen DO - 03/16/2024 5:43 AM EDT Images [...] which is appropriate. RD sign off to kosher dietary service manager to continue to monitor. Gypsy Kirby MS [...] anhydramnios; ROM rule out was deferred in [place] secondary to blood noted; transported to [facility] - in triage, SSE showed gross [...] diet - Dexcom in place, share code [id number] - Continue to monitor BGTs fasting and [...] 40 mg 40 mg Oral qAM AC aDli Hall MD 40 mg at 03/12/24 0602 [...] anhydramnios; ROM rule out was deferred in [place] secondary to blood noted; transported to [facility] - in triage, SSE showed gross [...] recent BPP (03/11) was 12/08 for fluid - Patient is chata breech [...] diet - Dexcom in place, share code [id number] - Continue to monitor BGTs fasting and [...] infection. Primary patient of Edouard Paulson/Prachi in [place]. Alerted her RN today to continue temp [...] Jacey secondary to blood noted; transported to [facility] - in triage, SSE showed gross [...] diet - Dexcom in place, share code [id number] - Continue to monitor BGTs fasting and [...] Oral 2 times per day Juliana Nguyen 100 mg at 03/10/242104 ondansetron ODT (Zofran-ODT) disintegrating tablet 4 mg [...] anhydramnios; ROM rule out was deferred in [place] secondary to blood noted; transported to [facility] - in triage, SSE showed gross [...] diet - Dexcom in place, share code [id number] - Continue to monitor BGTs fasting and [...] admitted for PPROM Pertinent Background: Transferred from [place] for PPROM. Gross rupture confirmed on admit and anhydramnios at OSH ultrasound. 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 We discussed the indication for delivery with [...] anhydramnios; ROM rule out was deferred in [place] secondary to blood noted; transported to [facility]. In triage,SSE showed gross rupture of [...] (188 lb) (03/06) Weight Source: Not Specified Range Body Weight (lbs) (Calculated): 110 lbs Range Body Weight (Kg) (Calculated): 50 kg % Range Body Weight (Calculated): 170.9 % BMI (kg/m2) [...] soon to determine Joanne Adame RD Contact: [employer] chat or *[phone] * Mary Alonso MD - 03/10/2024 7:11 [...] anhydramnios; ROM rule out was deferred in [place] secondary to blood noted; transported to [facility] - in triage, SSE showed gross [...] diet - Dexcom in place, share code [id number] - Continue to monitor BGTs fasting and [...] admitted for PPROM Pertinent Background: Transferred from [place] for PPROM. Gross rupture confirmed on admit and anhydramnios at OSH ultrasound. 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 We discussed the indication for delivery with [...] day Juliana Nguyen DO 100 mg at 03/08/24 2116 ondansetron ODT (Zofran-ODT) disintegrating tablet 4 mg [...] Jacey secondary to blood noted; transported to [facility] - in triage, SSE showed gross [...] diet - Dexcom in place, share code [id number] - Continue to monitor BGTs fasting and [...] 03/07 Further plan pending d/w attending. Juliana Nguyen DO 03/09/2024, 5:58 AM Associated attestation - Saumya Mancia MD - 03/09/2024 10:57 AM EDT MFM ATTENDING I have personally obtained a history and examined the patient with Dr. Nguyen. I agree with the assessment and plan as documented in the resident's note. The patient is a 28 y.o. 30w0d now HD#4, admitted for PPROM Pertinent Background: Transferred from [place] for PPROM. Gross rupture confirmed on admit and anhydramnios at OSH ultrasound. 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 We discussed the indication for delivery with [...] Jacey secondary to blood noted; transported to [facility] - in triage, SSE showed gross [...] diet - Dexcom in place, share code [id number] - Continue to monitor BGTs fasting and [...] at OSH ultrasound. 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 We discussed the indication for delivery with [...] Dali Hall MD 25 mL/hr at 03/06/24 174 1,000 mg/hr at 03/06/24 174 nitrofurantoin (macrocrystal-monohydrate) [...] anhydramnios; ROM rule out was deferred in [place] secondary to blood noted; transported to [facility] - in triage, SSE showed gross [...] diet - Dexcom in place, share code [id number] - Continue to monitor BGTs fasting and [...] plan pending d/w attending. Juliana Nguyen DO 03/07/2024, 6:44 AM Associated attestation - Saumya [...] at OSH ultrasound. Given BMZ, Mag for QUILTING MACHINE HELPER and latency antibiotics (amox only due to [...] antibiotics, BMZ for lung maturityand magnesium for QUILTING MACHINE HELPER. We discussed the indication for delivery with any signs of infection. We reviewed the recommendation for inpatient admission until delivery and plan for delivery at 34 weeks unless indicated sooner for labor, infection or NRFS. All questions answered. Continue latency antibiotics for 7 days total. BMZ #2 this evening S/p Mag for QUILTING MACHINE HELPER x >12 hrs total- now stopped NICU consult Understands baby in breech presentation and would be for if delivered 60 minutes spent in total floor time today for review of records, patient interview and exam, documentation and coordination of care with care teams. Saumya Mancia MD * Juliana NguyenDO - 03/06/2024 6:39 PM EDT Images from [...] 3 weeks now. She was evaluated in [place] initially at that time with amnisure that [...] Patient a direct admission from Transfer from [place]. Please see my other H&P attestation documented in this [facility]09-13-2024 Note* Care Coordination - IRVING Rodriguez - [...] No further needs anticipated. OK FOR DC [facility] [employer] Phone: 1(674) 893-147409-13-2024 Note* Care Coordination - IRVING Rodriguez - [...] No further needs anticipated. OK FOR DC [facility] [employer] Work Phone: 1(526) 218-558509-13-2024 Note* Care Coordination - Amy Connor RN - 03/15/2024 12:25 PM EDT Date: 03/15/2024 Name: Jose Edward : 1995 [facility] Information Emmalena Patient Information Primary Caregiver: Self Accompanied by/Relationship: S/O;Family Marital Status: Support System: SO/Family Gnosticist/Cultural Factors: none Activities of Daily Living Communication: [...] Equipment: Developmental Delay: N/A Children's Services: N/A [facility] [id number] Note* Care Coordination - Amy Connor RN - 03/15/2024 12:25 PM EDT Date: 03/15/2024 Name: Jose Edward : 1995 [facility] Patient Information Primary Caregiver: Self Accompanied by/Relationship: S/O;Family Marital Status: Support System: SO/Family Gnosticist/Cultural Factors: none Activities of Daily Living Communication: [...] Equipment: Developmental Delay: N/A Children's Services: N/A [facility] [id number] Obstetrics Note* Note - Melissa Mantilla RN - 03/15/2024 7:00 AM EDT Initial visit with mom. This is mom's first baby, delivered at 30 6/7 weeks. [place] [facility]). Nurse has mom set up with [...] electric breast pump- [facility].All questions answered. Will continue to monitor, encourage and support patient. [facility] [id number] Hospital Discharge instructions* Discharge Instructions* Marcela Rapp PA-C - 03/15/2024 5:22 AM EDT Images from the original note were not included. Thank you for allowing us to care of you at [facility]. This time can be one of [...] over the next few weeks. Bleeding may continuous pickling line pickler and then decrease again around 7-10 days [...] avoid constipation you may take a mild gmbp-ggt-wiavpyd stool softener (such as colace) as recommended [...] emergency, call 911 immediately. documented in this [facility]09-13-2024 Nurse Note* Yaritza Sanford RN - 03/15/2024 [...] of Humalog. Patient voiced understanding and agreeable. [facility] [id number] Note* Significant Event - Savanah Duarte DO [...] CCD Savanah Duarte DO 03/15/2024 12:07 AM [employer] Phone: 1(846) 146-974109-12-2024 Note* Significant Event - Savanah Duarte DO [...] CCD Savanah Duarte DO 03/15/2024 12:07 AM [employer] Phone: 1(508) 663-956709-12-2024 NotePatient: Jose Edward Procedure Summary Date: 03/14/24 Room / Location: [address] Labor and Delivery Anesthesia Start: 1112 Anesthesia Stop: 124 Procedure: DELIVERY (Abdomen) Diagnosis: 30 weeks gestation [...] discharged once all PACU criteria has been met.[facility]09-12-2024 NotePatient: Jose Edward Procedure Summary Date: 03/14/24 Room / Location: [address] Labor and Delivery Anesthesia Start: 3 Anesthesia Stop: 1248 Procedure: DELIVERY (Abdomen) Diagnosis: [...] Allowed opportunity for questions and acknowledgement of understanding.[facility] [id number] NotePeripheral Block Time Out: 03/14/2024 12:37 PM Patient location during procedure: Procedural Start time: 03/14/2024 12:38 PM End time: 03/14/2024 12:40 PM Reason for block: at surgeon's request and post-op pain management Staffing Performed: HISTORICAL MANUSCRIPTS CURATOR Anesthesiologist: Antonio Maria MD Resident/HISTORICAL MANUSCRIPTS CURATOR: PAULIE Clements CRNA Preanesthetic Checklist Completed: patient identified, IV checked, site marked, risks and benefits discussed, surgical consent, monitors and equipment checked, pre-op evaluation and timeout performed Region: [place] Primary: TAP (60ml of Bupivacaine 0.375% with dexamethasone 0.01% with epinephrine 1:200,000 divided evenly bilaterally) Peripheral Block Patient position: supine Prep: ChloraPrep Patient monitoring: heart rate, surveillance monitor and continuous pulse ox O2: Room air [...] injection and Local anesthetic injected without difficultyMedications pxfNIVGIssgpb-qyrlqijibhd-rbmuggloxsh (TAP) syringe - Injection 60 mL - 03/14/2024 12:38:00 [facility] [id number] NoteSpinal Block Time Out: 03/14/2024 11:17 AM Patient location during procedure: OB Start time: 03/14/2024 11:18 AM End time: 03/14/2024 11:20 AM Reason for block: primary anesthetic Staffing Performed: HISTORICAL MANUSCRIPTS CURATOR Anesthesiologist: Antonio Maria MD Resident/HISTORICAL MANUSCRIPTS CURATOR: PAULIE Clements CRNA Preanesthetic Checklist Completed: patient [...] Assessment Sensory level: T4 [facility]: [facility] NotePatient: Jose Edward Procedure Information Date/Time: 03/14/24 1100 Procedure: DELIVERY (Abdomen) Location: [address] Labor and Delivery Surgeons: Maria Dolores [...] who consented to blood products. Additional Equipment [facility]09-12-2024 Nurse Note* Yara Chinchilla RN - 03/14/2024 8:27 AM EDT Pt reports spotting on her pad and upon assessing urine found a few red specks in her urine [facility] [id number] Nurse Note* Venessa Gold RN - 03/14/2024 6:[address] Nguyen made aware that pt was just up to restroom and had a quarter size mucousy, bloody clot into toilet. No active bleeding noted. No change to plan of care at this time [place] [id number] Nurse Note* Venessa Gold RN - 03/14/2024 4:53 AM EDT Pt made aware that order for nothing to eat or drink has been ordered by Dr. Duarte. She states understanding. I made her aware that I will be starting IV fluids also. [facility] [id number] Note* Significant Event - Savanah Duarte DO [...] closely. Savanah Duarte DO 03/13/2024 11:23 PM [place] more cramping. 1cm dilated. Reportedly was 1cm [...] CEFM. Savanah Duarte DO 03/14/2024 4:09 AM [facility] [id number] Note* Significant Event - Savanah Duarte DO [...] closely. Savanah Duarte DO 03/13/2024 11:23 PM Davidson more cramping. 1cm dilated. Reportedly was 1cm [...] CEFM. Savanah Duarte DO 03/14/2024 4:[address] [id number] Note* Care Coordination - Amy Connor RN - 03/13/2024 2:48 PM EDT Hospital day 8 at 30/4 weeks. PPROM. Voiced no needs or concerns. [place] [id number] Note* Care Coordination - Amy Connor RN - 03/13/2024 2:48 PM EDT Hospital day 8 at 30/4 weeks. PPROM. Voiced no needs or concerns. [place] [id number] Plan of care note* Care Plan - Rosio Woodruff RN - 03/13/2024 6:37 AM EDT The patient is Moderately Stable - Low risk of patient condition declining or worsening The patient's goals for the shift include remain The clinical goals for the shift include remain afebrile [facility] HospitalMxmqxz63-83-1993 Plan of care note* Care Plan - Rosio Woodruff RN - 03/13/2024 6:37 AM EDT The patient is Moderately Stable - Low risk of patient condition declining or worsening The patient's goals for the shift include remain The clinical goals for the shift include remain afebrile [facility] [id number] Consult note* Paola Cloe MD - 03/12/2024 2:58 PM EDTAssociated Order(s): [...] from NICU Potential need for transfer to [facility] if needs esclation of care, [...] after she delivers/is discharged. Paola Cole MD [employer] Phone: 1(261) 208-154409-10-2024 Consult note* Paola Cole MD - 03/12/2024 [...] from NICU Potential need for transfer to [facility] if needs esclation of care, based [...] discharged. Paola Cole MD documented in this [facility]09-09-2024 Obstetrics Note* Note - Cheryl Marinelli RN [...] options for home going pump; pt has [employer] insurance. Availability of LC for NICU and reviewed. [facility] handout Your NICU Baby given and reviewed. Encouraged to watch videos from [place] to support her goals. Resource numbers given for [facility] dept and [facility] dept. Encouraged to call with any questions / concerns. Pt receptive to my visit and education. Denies questions at this time. [facility] [id number] Note* Care Coordination - Amy Connor RN - 03/11/2024 4:10 PM EDT Hospital day 6 at 30/2 weeks. Anhydramnios PPROM at 30/2 weeks referral. Voiced no needs or concerns. [facility] [id number] Note* Care Coordination - Amy Connor RN - 03/11/2024 4:10 PM EDT Hospital day 6 at 30/2 weeks. Anhydramnios PPROM at 30/2 weeks referral. Voiced no needs or concerns. [facility] [id number] NoteNutrition Assessment Type and Reason for Visit: [...] Jacey secondary to blood noted; transported to [facility]. In triage, SSE showed gross rupture [...] (188 lb) (03/06) Weight Source: Not Specified Range Body Weight (lbs) (Calculated): 110 lbs Range Body Weight (Kg) (Calculated): 50 kg % Range Body Weight (Calculated): 170.9 % BMI (kg/m2) [...] soon to determine Joanne Adame RD Contact: Fingerprint or *[address] [place], [place] 7366109-06-2024 Note* Care Coordination - Julianna Martinez RN - 03/08/2024 3:44 PM EDT Hospital Day 3; 29/12 weeks today; No concerns at this time; Pt states she is interested in the possibility of staying at the [facility] after delivery due to living approx. 2 hours away; patient and provided background check paperwork; will be faxed to [facility] referral line; Will consult for patient as pt would like to see prior to delivery [facility] [id number] Note* Care Coordination - Julianna Martinez RN - 03/08/2024 3:44 PM EDT Hospital Day 3; 29/12 weeks today; No concerns at this time; Pt states she is interested in the possibility of staying at the [facility] after delivery due to living approx. 2 hours away; patient and provided background check paperwork; will be faxed to [facility] referral line; Will consult for patient as pt would like to see prior to delivery [facility] [id number] Note* Care Coordination - Amy Connor RN - 03/07/2024 10:58 AM EDT Date: 03/07/2024 Name: Jose Edward : 1995 [facility] Information Emmalena - transport Patient Information Primary Caregiver: Self Accompanied by/Relationship: S/O;Family Marital Status: Support System: SO/Family Gnosticist/Cultural Factors: Activities of Daily Living Communication: See [...] N/A Developmental Delay: N/A Children's Services: N/A [facility] HospitalNdidcg02-17-5510 Note* Care Coordination - Amy Connor RN - 03/07/2024 10:58 AM EDT Date: 03/07/2024 Name: Jose Edward : 1995 [facility] Information [place] - transport Patient Information Primary Caregiver: Self Accompanied by/Relationship: S/O;Family Marital Status: Support System: SO/Family Gnosticist/Cultural Factors: Activities of Daily Living Communication: See [...] N/A Developmental Delay: N/A Children's Services: N/A [facility] HospitalAgewme11-18-3235 Nurse Note* Raegan Estrada RN - 03/07/2024 4:47 AM EDT RN called to bedside at 0435, pt reporting feeling increased leakage of fluid. Denies cramping, contractions, or pain, but does state feeling pressure which has become more constant. Dr Boles aware. Pt instructed to notify RN immediately if pressure intensifies or if cramping / contractions occur. [facility] HospitalLibnfi61-31-1597 History and physical note* Juliana Nguyen, - [...] 3 weeks now. She was evaluated in [place] initially at that time with amnisure that [...] breech on US today. Transport: Yes, from [place] Prior Hospitalizations: No Estimated Due Date: Estimated [...] for about 3 weeks - presented to [place] today complaining of LOF; - US was performed that showed anhydramnios; ROM rule out was deferred in [place] secondary to blood noted - concern for PROM, transported to [facility] - in triage, SSE showed gross rupture of membranes with nitrazine positive, ferning negative and visually closed - Latency Abx ordered, allergy to azithromycin so will proceed with only ampicillin - s/p BMZx1 at 1415 at [place], second dose ordered - magnesium sulfate loading dose given prior to transport, will order continuous infusion at 1g/hr for 12 hours for neuroprotection - CEFM overnight - General carb controlled diet ordered - growth US ordered for tomorrow AM GDMA1 - Carb control diet - has Dexcom in place, share code [id number] - will monitor BGTs fasting and 1 [...] patient was admitted overnight while I was utilization management um nurse. I discussed the assessment and management with the resident physician. I reviewed and agree with the findings and plan as documented in the note. Transferred from [place] for PPROM. 28yo at 29 4/7 weeks presents for PPROM. Gross rupture confirmed on exam with +nitrazine and +ferning. Cervix visually closed and patient overall comfortalbe. Ultrasound at transferring facility with anhydramnios. Breech presentation. Newly diagnosed GDMA1 Will admit for latency antibiotics, BMZ, and mag for neuroprotection. Pattern glucose. CS if for delivery. Saumya Mancia MD [facility] HospitalCbanmr06-99-1678 Note Attestation signed by Saumya Mancia MD at 03/06/2024 6:45 PM Attending Supervising Physician's Attestation Statement This patient was admitted overnight while I was utilization management um nurse. I discussed the assessment and management with the resident physician. I reviewed and agree with the findings and plan as documented in the note. Transferred from [place] for PPROM. 28yo at 29 4/7 weeks [...] 3 weeks now. She was evaluated in [place] initially at that time with amnisure that [...] breech on US today. Transport: Yes, from [place] Prior Hospitalizations: No Estimated Due Date: Estimated [...] Performed ASSESSMENT AND (more content not included)...[facility]09-04-2024 History and physical note* Juliana Nguyen, DO [...] 3 weeks now. She was evaluated in [place] initially at that time with amnisure that [...] breech on US today. Transport: Yes, from [place] Prior Hospitalizations: No Estimated Due Date: Estimated [...] for about 3 weeks - presented to [place] today complaining of LOF; - US was performed that showed anhydramnios; ROM rule out was deferred in [place] secondary to blood noted - concern for PROM, transported to [facility] - in triage, SSE showed gross rupture of membranes with nitrazine positive, ferning negative and visually closed - Latency Abx ordered, allergy to azithromycin so will proceed with only ampicillin - s/p BMZx1 at 1415 at [place], second dose ordered - magnesium sulfate loading dose given prior to transport, will order continuous infusion at 1g/hr for 12 hours for neuroprotection - CEFM overnight - General carb controlled diet ordered - growth US ordered for tomorrow AM GDMA1 - Carb control diet - has Dexcom in place, share code [id number] - will monitor BGTs fasting and 1 [...] patient was admitted overnight while I was utilization management um nurse. I discussed the assessment and management with the resident physician. I reviewed and agree with the findings and plan as documented in the note. Transferred from [place] for PPROM. 28yo at 29 4/7 weeks presents for PPROM. Gross rupture confirmed on exam with +nitrazine and +ferning. Cervix visually closed and patient overall comfortalbe. Ultrasound at transferring facility with anhydramnios. Breech presentation. Newly diagnosed GDMA1 Will admit for latency antibiotics, BMZ, and mag for neuroprotection. Pattern glucose. CS if for delivery. Saumya Mancia MD documented in this [facility]04-11-2024 NotePap Smear Specimen AdequacyApril 2023 11:59pmComment.Satisfactory for evaluation. No endocervical component is identified.[facility] INTER[facility]ED A#[id number] Medical [facility] Hospital - DublinComment on above:Satisfactory for evaluation. No endocervical component is identified.10-12-2023 NotePap Smear Specimen AdequacyApril 2023 11:59pmComment.Satisfactory for evaluation. No endocervical component is identified.[facility] INTER[facility] A#[id number] Health St. Vincent Medical CenterComment on above:Satisfactory for evaluation. No endocervical component is identified. 09-19-2023 Discharge summary Author Karlos Miller [facility] September 19, 2023 4:24pm Note Date/Time September 19, 2023 12: 23pm [facility] Medical Records Department [address] [place] [address] Emergency Department Summary 09/19/23 MR#: [id number] Acct: [id number] Name: JOSE EDWARD Rep #:[id number] : 1995 28 From: Karlos Sarmiento PCP: [...] 0 current occupational status: employed current occupation: [employer] Smoking Status: Former smoker Electronic Cigarette Use: with nicotine alcohol intake: never substance use type: does not use seatbelt use: always do you feel safe at home: Yes additional social history: - Rene- Chuck [facility] ED Constitutional Constitutional ED: Denies chills [...] 77.7 H Lymph % (Auto) 16.6 L Ceiba % (Auto) 4.6 Eos % (Auto) 0.2 [...] Sl. Cloudy Urine pH 8.0 Ur Specific [place] 1.010 Urine Protein Negative Urine Glucose (UA) [...] Patient was instructed to follow-up with her KERRICK KLEANER OPERATOR in 2 to 3 days. Patient was [...] your Primary Care Provider. Call [facility] ([phone]) or report to the closest Emergency Room. Call 911 if necessary. 09/19/23 1624 <Electronically signed by Karlos Miller DO> Cosigner Signature (if applicable): CC: CHERYL Samano ~ Signed [facility] Work Phone: 1(352) 261-539106-02-[address] Villareal [facility] December 02, 2022 10:42am Note Date/Time December 02, 2022 10:39 am [facility] Medical Records Department [address] [place] [address] Instructions for Home/Discharge Instructions 12/02/22 1038 MR#: [id number] Acct: [id number] Name: JOSE EDWARD Rep #:[id number] : 1995 27 From: Julianna Newman DO PCP: CHERYL Samano Status:[facility] Discharge Instructions Diet Discharge Diet: No restrictions [...] Newman DO CC: CHERYL Melvin ~ Signed [facility] Work Phone: [phone]) 893-537006-02-2023 Procedure [facility] 12-02-2022 History and physical note Author Dr. Villareal [facility] December 02, 2022 10:38am Note Date/Time December 02, 2022 10:38 am [facility] Medical Records Department [address] [place] [address] History & Physical Exam 12/02/22 1037 MR#: [id number] Acct: [id number] Name: JOSE EDWARD Rep #:[id number] : 1995 27 From: Julianna Newman DO PCP: CHERYL Samano Status:[facility] Location: [address] History and Physical Date of Admission: 12/02/22 Intake Vital Signs ? 11/09/2310:22 11/09/2310:22 Height 5 ft 2 in 5 ft 2 in Weight: 156 lb 6 oz ? BMI 28.5 ? BP 116/76 ? 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 employed current occupation:? [employer] Smoking Status:? Current every day smoker Electronic Cigarette Use:? with nicotine alcohol intake:? never substance use type:? does not use seatbelt use:? always do you feel safe at home:? Yes additional social history:? - Rene- Chuck [facility] diagnostic lap & fulguration Details: JOSE EDWARD is a 27 year old who presents for annual exam. has been tryingto get x 6 years. got once and had a miscarriage. [facility] [address] seen [facility] for 2 rounds of iui without success. was seeing Dr. Del Real at [facility] and had a hysteroscopy D&C with removal [...] CHERYL Melvin; Dr. Julianna Newman DO~ Signed [facility] Work Phone: 1([phone]) 748-185404-14-2023 NotePap Smear Specimen AdequacyApril 2022 5:09pmComment.Satisfactory for evaluation. Endocervical and/or squamous metaplasticcells (endocervical component)are present.[facility] A#[id number] Health St. Vincent Medical CenterComment on above:Satisfactory for evaluation. Endocervical [...] advise. Yas Hogan RN documented in this [facility]-13-[facility] History of Past illness Narrative* Problem Noted Date Resolved Date Blurring of vision 09/13/2011 11/05/2018 Dizziness 05/10/2011 11/05/2018 Ingrowing nail 04/06/2011 07/28/2021 Cellulitis and abscess of toe, unspecified 03/1711/05/2018 documented as of this encounter (statuses as of 04/08/2022) [facility] HospitalEvaluation noteNo assessment information availableWMercy Health St. [facility] Medical Center Work Phone: evaluation note* Diagnosis Onset Date Resolution Status Encounter for routine gynecological examination noneactive Abnormal uterine bleeding ac [place] Infertility acute Abnormal uterine bleeding ac [place] Infertility acute [facility] Work Phone: Evaluation note* Diagnosis Onset Date Resolution Status Abnormal uterine bleeding ac [place] Infertility acute Infertility acute Status post laparoscopy [facility] Work Phone: Evaluation note* Diagnosis Onset Date Resolution Status Abnormal uterine bleeding ac [place] Status post laparoscopy [facility] Work Phone: Evaluation note* Diagnosis Onset Date Resolution Status Abnormal uterine bleeding ac [place] [facility] Work Phone: Evaluation note* Diagnosis Onset Date Resolution Status Abnormal uterine bleeding [place] Abnormal uterine bleeding ac [place] Conceived by in vitro fertilization acute Genetic testing of female ac [place] Infertility acute PCOS (polycystic ovarian syndrome) acute acute Supervision of high-risk acute Anxiety and depression chron ic [facility] Work Phone: Evaluation note* Diagnosis Onset Date Resolution Status Abnormal uterine bleeding ac [place] Abnormal uterine bleeding ac [place] Conceived by in vitro fertilization acute Genetic testing of female [place] Infertility acute PCOS (polycystic ovarian syndrome) acute acute Supervision of high-risk acute Anxiety and depression chron ic Conceived by in vitro fertilization acute Genetic testing of female ac [place] Infertility acute acute Supervision of high-risk acute Anxiety and depression chron ic [facility] Work Phone: Evaluation note* Diagnosis Anhydramnios in third trimester, single or unspecified fetus- Primary Anhydramnios in third trimester, single or unspecified fetus Vaginal bleeding in , third trimester S/P documented in this encounter [facility] HospitalEvalutrinity health note* Diagnosis History of gestational diabetes Personal history of gestational diabetes documented in this encounter [facility]* Diagnosis Ovarian hyperstimulation syndrome- Primary Other ovarian hyperfunction Ovarian hyperstimulation syndrome Other ovarian hyperfunction [facility]* Diagnosis Onset Date Resolution Status Admit Date Encounter for routine gynecological examination noneactive Sept2024 2:30pm [facility] Work Phone: Hospital Discharge instructions Additional Instructions Plenty of fluids and rest to replace your blood loss. Motrin and Tylenol for pain and cramping. Follow-up with your KERRICK KLEANER OPERATOR to ensure you are improving. Your test was negative. Your blood counts were normal.[facility] Work Phone: Hospital Discharge instructions Additional Instructions Implant Used?: [facility] Work Phone: Hospital Discharge instructions Additional Instructions The x-ray of your abdomen shows significant constipation. I recommend you take magnesium citrate which is sold [id number]. Drink plenty of water and Gatorade to avoid dehydration as this will cause a lot of bowel movements. You also could be having pain from the ovarian hyperstimulation syndrome which should get better over time. I recommend follow- up with your KERRICK KLEANER OPERATOR.[facility] Work Phone: Reason for referral (narrative)No reason for referral information availableHealdsburg District Hospital Work Phone: Reason for visit Narrative* Auth/Cert (Routine) Specialty Diagnoses / Procedures Referred By Contsully t Referred To Contact Diagnoses Ovarian hyperstimulation syndrome Ovarian hyperstimulation syndrome Procedures . Barak Covarrubias MD [address] [place] [address] [address] [place] [address] Phone: tel: fax: [facility] Medical Surgical Unit [facility] [address] [place] [address] Phone: tel: Referral ID Status Reason Start Date Expiration Date Visits Re quested Visits Authorized [id number] [address] [facility] Summary Purpose Family History No Family History Records Found Relationship Condition Age at Onset Recorded Date/T heber mother Diabetes mellitus Unknown uncle Diabetes mellitus Unknown grandmother Diabetes mellitus Unknown Advance Directives No Advanced Directives Records Found Advance Directive Response Recorded Date/ Time Living Will No April 08 7:23pm Power of Psychotherapist Counselor No April 08 7:23pm Advance Directive Response Recorded Date/ Time Living Will No November 22, 2022 1 0:47am Power of Psychotherapist Counselor No November 22, 2022 10:47am Advance Directive Response Recorded Date/ Time Living Will No November 22, 2022 9 :47am Power of Psychotherapist Counselor No November 22, 2022 9:47am Advance Directive Response Recorded Date/ Time Living Will No September 19, 2023 1:13pm Power of Psychotherapist Counselor No September 18 1:13pm Advance Directive Response Recorded Date/ Time Living Will No October 12, 2023 3:47pm Power of Psychotherapist Counselor No October 11 3:47pm Date Activated Date Inactivated Comments 03/06/2024 5:26 PM 03/17/2024 8:57 PM Advance Directive Response Recorded Date/ Time Living Will No October 11, 2024 9:40pm Do you have a Healthcare Power of Psychotherapist Counselor? No October 11, 2024 9:40pm Date Activated Date Inactivated Comments 10/12/2024 3:53 AM 10/13/2024 2:55 PM Date Activated Date Inactivated Comments 03/06/2024 5:26 PM 03/17/2024 8:57 PM Advance Directive Response Recorded Date/ Time Living Will No October 11, 2024 9:40pm Do you have a Healthcare Power of Psychotherapist Counselor? No October 11, 2024 9:40pm Living Will No October 14, 2024 8:36pm Do you have a Healthcare Power of Psychotherapist Counselor? 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) March 06, 2025 2:30pm Reason for Visit Admit Date Encounter for routine gynecological exam ination March 06, 2025 2:30pm Additional Source Comments INFORMATION SOURCE (unrecogn ized section and content) DATE CREATED AUTHOR 08/05/2021 [facility] s DATE CREATED AUTHOR AUTHOR'S ORGANIZ ATION 05/06/2023 [facility] DATE CREATED AUTHOR AUTHOR'S ORGANIZ ATION 05/15/2024 [facility] DATE CREATED AUTHOR AUTHOR'S ORGANIZ ATION 10/14/2024 [facility] DATE CREATED AUTHOR AUTHOR'S ORGANIZ ATION 04/09/2025 [facility] DATE CREATED AUTHOR AUTHOR'S ORGANIZ ATION 04/27/2025 [facility] DATE CREATED AUTHOR AUTHOR'S ORGANIZ ATION 05/14/2025 LUBA CALDWELL N Source Comments (unrecognize d section and content) In the event this informatio n is protected by the Federal Confidentiality of Alcohol and Drug Abuse Patient Records regulations: The Federal rules restrict any use of the information to criminally investigate or prosecute any alcohol or drug abuse patient.[facility] Reason for Visit (unrecogniz ed section and content) Reason Comments Heavy Bleeding Reason Comments Rupture of Membranes Specialty Diagnoses / Procedures Referred By Contac t Referred To Contact Diagnoses Anhydramnios in third trimester, single or unspecified fetus Procedures . Saumya Mancia MD [address] [facility] [place] [address] [address] [facility] [place] [address] Referral ID Status Reason Start Date Expiration Date Visits Re quested Visits Authorized [id number] 1 1 Care Teams (unrecognized sec tion and content) In Service Education Teacher Relationship Specialty Start Date End Date Zbigniew Matta MD [address] [place] [address] PCP - General Family Medicine 11/06/18 Team Status: Active Member Role Status Dates Dr. Minh Ritter MD Family Provider Active Marco Melvin PA Primary Care Provider Active [...] Karlos Miller DO Attending Provider, Emergency P rovider Active Team Status: Active Member Role Status Dates Dr. Romel Ritter MD Family Provider Active Marco Melvin PA Primary Care Provider Active [...] Provider, Referring Pro vider Active Denny Bauer QUILTING MACHINE HELPER, QUILTING MACHINE HELPER-C Attending Provider Active Team Status: Inactive Member Role Status Dates CHERYL Samano Primary Care Provider Active Denny Bauer QUILTING MACHINE HELPER, QUILTING MACHINE HELPER-C Attending Provider, Referring Provider Active In Service Education Teacher Relationship Specialty Start Date End Date Jeff Nguyen MD [address] [facility] [address] [place] [address] PCP - General 03/11/14 Team Status: Active Member Role Status Dates CHERYL Samano Primary Care Provider Active Team Status: Inactive Member Role Status Dates CHERYL Samano Primary Care Provider Active S tart: June 19, 2024 End: June 19, 2024 CHERYL Samano Referring Provider Active Star t: June 19, 2024 End: June 19, 2024 AMY Monae Attending Provider Active Start: June 19, 2024 End: June 19, 2024 Team Status: Inactive Member Role Status Dates CHERYL Samano Primary Care Provider Active S tart: June [...] August 15, 2024 Dr. Julianna Newman DO Attending Provider Activ e Start: [...] October 11, 2024 End: October 12, 2024 In Service Education Teacher Relationship Specialty Start Date End Date Marco Melvin [address] [place] [address] [place] [id number] PCP - General 10/12/24 Team Status: Inactive Member Role Status Dates CHERYL Samano Primary Care Provider Active S tart: October 14, 2024 End: October 14, 2024 Dr. Soren Babcock MD Emergency Provider Active S tart: October 14, 2024 End: October 14, 2024 Team Status: Active Member Role/Relationship Status Dates Marco Melvin PA Primary Care Provider Active Team Status: Inactive Member Role/Relationship Status Dates Marco Melvin PA Primary Care Provider Active S tart: March 06, 2025 End: March 06, 2025 Marco Melvin PA Referring Provider Active Star t: March 06, 2025 End: March 06, 2025 Dr. Julianna Newman DO Attending Provider Activ e Start: March 06, 2025 End: March 06, 2025 Team Status: Active Member Role/Relationship Status Dates CHERYL Samano Primary care physician Active Team Status: Inactive Member Role/Relationship Status Dates CHERYL Samano Primary care physician Active Start: March 06, 2025 End: March 06, 2025 Marco Melvin PA Referring Provider Active Star t: March 06, [...] Phipps RN)0900 (Canceled Entry - Provider: Sonja Canan, RN)2307 (Given - Provider: Sonja Phipps RN) [...] 1 tablet, Oral, Daily, First dose on Mon03/14/24 at 1515, , Begin when normal bowel [...] (2 times per day), First dose on Lali 03/14/24 at 2100, , or Line Patency: Peripheral [...] 3 hours. 0637 (Given - Provider: Maryellen Marcelino-Martiniquais, RN)1218 (Given - Provider: Maryellen Lawson, HENRIQUE)1758 (Given - Provider: Maryellen Lawson, HENRIQUE) 0021 (Given - Provider: Sonja Phipps RN)0637 (Given - Provider: Sonja Phipps RN)1308 (Given - Provider: Hollie Avalos RN)1949 (Given - Provider: Sonja Phipps, RN) 0219 (Given - Provider: Char Chacon, RN)0830 (Given - Provider: Maryellen Psoey, RN)1448 (Given - Provider: Maryellen Posey, RN) diphenhydrAMINE (BENADryl) injection 25 mg 25 [...] sedation for opioid reversal - MUST notify utilization management um nurse provider immediately after first dose, may give [...] Phipps RN)0910 (See Alternative - Provider: Hollie Avalos RN)1308 (Given - Provider: Hollie Avalos RN)1703 (Given - Provider: Yolanda Quigley RN)2306 (See Alternative - Provider: Sonja Phipps RN) 0554 (See Alternative - Provider: Sonja Phipps RN)1029 (See Alternative - Provider: Maryellen Posey RN)1448 (See Alternative - Provider: Maryellen Posey, HENRIQUE)1835 (See Alternative - Provider: Maryellen Posey RN) oxyCODONE (Roxicodone) immediate release tablet 5 mg(Linked Group 4) 5 mg, Oral, Every 4 hours PRN, moderate pain (4-6), Starting on Lali 03/14/24 at 1500, 0058 (Given - Provider: Yaritza Sanford RN)1401 (Given - Provider: Maryellen Lawson, HENRIQUE)1758 (Given - Provider: Maryellen Lawson RN)2202 (See Alternative - Provider: Sonja Phipps RN) 0314 (Given - Provider: Sonja Phipps RN)0910 (Given - Provider: Hollie Avalos RN)1308 (See Alternative - Provider: Hollie Avalos RN)1703 (See Alternative - Provider: Yolanda Quigley RN)2306 (Given - Provider: Sonja Phipps, RN) 0554 (Given - Provider: Sonja Phipps, RN)1029 (Given - Provider: Maryellen Posey, RN)1448 (Given - Provider: Maryellen Posey, RN)1835 (Given [...] After every IV line use, Starting on Lali 03/14/24 at 1500, , or Line Patency: Peripheral [...] Reason: NPO)1107 (Given - Provider: Ashwini Lewis RN)2000 (Given - Provider: Lucinda Poe RN) 0433 [...] Poe RN) 0800 (Given - Provider: Ashwini eLwis RN) sodium chloride 0.9% (NS) flush 5-40 [...] RN) 0126 (New Bag - Provider: Lucinda Poe, RN)1121 (New Bag - Provider: Ashwini Lewis RN) PRN Medication Order 10/11/2024 10/12/2024 10/13/2024 naloxone (Narcan) injection 0.4 mg 0.4 mg, IntraVENous, Every 5 min PRN, opioid reversal, respiratory depression, Starting on 10/12/24 at 1122, +++ For RR <10, pinpoint pupils, over sedation for opioid reversal - MUST notify utilization management um nurse provider immediately after first dose, may give [...] 1121 1237 (Given - Provider: Ashwini Lewis, RN)1829 (Given - Provider: Ashwini Lewis RN) polyethylene glycol (PEG) 3350 (Miralax) packet 17 [...] BE BASED ON THE PRIMARY CLINICAL RECORDS. [employer] provides no warranty or guarantee of the accuracy or completeness of information in this document.
[2025-06-29 10:51] LABS: Red Blood Cells-Urine 50-100 SEEN /hpf (0-5); Squamous Epithelial Cells - UA 5-10 SEEN /hpf (5-10)
[2025-06-29 11:06] LABS: hCG Titer Quant., Serum 2983 mIU/mL (<9 non-preg)
--- NOTE | 2025-06-29 12:37 | ED.RN ---
antibiotics started late, pt in ultrasound
[2025-06-29 13:24] LABS: Hematocrit 43.1 % (37-47); Hemoglobin 14.9 g/dL (12.0-15.0); Mean Corp Hgb Conc 34.6 g/dL (32-36); Mean Corpuscular Volume 87.4 fL (81-99); Mean Platelet Vol. 8.7 fl (6.2-12.0); POSITIVE DIFFERENTIAL YES; POSITIVE MORPHOLOGY YES; Platelet Count 359 K/mm3 (150-450); RBC Distribution Width CV 13.5 % (11.6-14.6); RBC Distribution Width SD 43.3 fl (35.1-43.9); Red Blood Count 4.93 M/mm3 (4.2-5.4)
[2025-06-29 13:54] LABS: Reactive Lymphocyte RARE
[2025-06-29 14:42] LABS: AST(SGOT) 11 U/L (<=31); Alanine Aminotransfer ALT/SGPT 22 U/L (<=34); Albumin, Serum 4.3 g/dL (3.5-5.0); Alkaline Phosphatase 55 U/L (35-104); Anion Gap 13 (7-18); BUN 10 mg/dL (4-19); BUN/Creat Ratio 20.3 RATIO (10-20); Calcium,Total 9.2 mg/dL (7.6-11.0); Carbon Dioxide 23.1 mmol/L (20.0-29.0); Chloride 102 mmol/L (96-106); Estimated Creatinine Clearance 170.81 ml/min (50-250); Globulin 2.4 g/dL (2.2-4.2); Glucose 97 mg/dL (70-99); Potassium 3.5 mmol/L (3.5-5.1)
--- OUTSIDE RECORDS SUMMARY | 2025-06-29 14:46 | XMS RPT_ITS | CCD ---
Author Organization [facility] Care Team Providers Care Stemmer Machine Name Role Phone Zbigniew Matta MD Primary Care Provider CHERYL Melvin Primary Care Provider CHERYL Melvin Referring Provider Dr. Julianna Newman Attending Provider [phone] Dr. Julianna Newman Referring Provider [phone] Dr. Julianna Newman Other Provider CHERYL Melvin Primary Care Provider Dr. Julianna Newman Attending Provider [phone] CHERYL Melvin Referring Provider Marco Melvin PA-C Unavailable Gastroenterology Provider Unavailable UnavaFederico Parra PA-C Unavailable [phone] Chelsea Paez MA Unavailable Unavailable Maryellen Reyes LPN Unavailable Unavailable Natalia DUENAS, Nandini Corona Unavailable Unavaila janusz Mar LPN, Alysia Unavailable Unavailable Minesh AMEZQUITA, Cihn Unavailable Unavailable Unavailable Unavailable CHERYL Melvin Primary Care Provider CHERYL Melvin Referring Provider Dr. Julianna Newman Attending Provider [phone] Dr. Venessa Newby Attending Provider [phone] Juancarlos MATERIAL CONTROL ANALYST, AMY Benz Attending Provider [phone] Natalie Hopkins MA Unavailable Unavailable Unavailable Primary Care Provider UnavailJeff Stevens MD Primary Care Provider [phone] LUCILA HO Attending Unavailable BAY, JEFF Primary [...] Care Provider Marco Morales Referring Provider Adrián MATERIAL CONTROL ANALYST-CLilly Attending Provider Adrián MATERIAL CONTROL ANALYST-CLilly Referring Provider Dr. Julianna Newman DO Attending [...] Unavailable Sadiq GATES, Dr. Doty Emergency Provider [phone] Duane LUNA, Marco Primary Care Provider [phone] Marco Morales Referring Provider [phone] Julianna Newman DO Attending Provider Melvin [...] Sampson Attending Unavailable Lilly Sampson Referring Unavailable Kilatnonia, Yola Referring Unavailable Melvin, Marco Primary Care Unavailable Sarbjit, Yola Attending Unavailable Melvin, Marco Primary Care Unavailable Kilantonia, Yola Referring Unavailable Kilantonia, Yola Attending Unavailable Yola Schaffer Consulting Unavailable Melvin, Marco Primary Care Unavailable Julianna Newman Attending Unavailabl e Julianna Newman Referring Unavailabl e Ungur, Remus Attending Unavailable Melvin, Marco Primary Care Unavailable Melvin, Marco Primary Care Unavailable Fortune MATERIAL CONTROL ANALYST, Angelica Attending Unavailable Fortune MATERIAL CONTROL ANALYST, Angelica Referring Unavailable Kiltz, Yola Referring Unavailable [...] Other (See Comments), Shortness Of Breath, Swelling [facility] Work Phone: (20 sources) venlafaxine; Translations: [VENLAFAXINE] Drug Allergy 9 Other: See Comments, Other (See Comments) [facility] Work Phone: (20 sources) Zithromax *MACROLIDES* [facility] (9 sources) natural latex rubber Allergy to substance 4 Other [facility] Comment on above: Blisters with Bandai d use (5 sources) Latex; Translations: [LATEX] Propensity to adverse reactions 4 [facility] (1 source) Latex Propensity to adverse reactions 4 [facility] (1 source) Azithromycin Drug Allergy 5 [facility] (1 source) natural latex rubber Drug allergy (disorder) 5 [facility] (1 source) venlafaxine Drug Allergy 5 [facility] Medications Current Medications Medication Drug [...] 2023 1:00am October 03, 2023 11:24am Multivit 68-Ruod-Gogjek 1-Dh a (Pnv-Dha) 27 mg iron-1 mg -300 mg capsule (20 sources) Start: 01-14-2025 Start: 01-14-2025 Multivit 47-Ir on-Folate 1-Dha (Pnv-Dha) 27 mg iron-1 mg -300 mg capsule Active 1 NMA PO DAILY 90 January 14, 2025 10:44am Start: 01-14-2025 End: 01-14-2025 Multivit 19-Lxlp-Yjpmpo 1-Dh a (Pnv-Dha) 27 mg iron-1 mg -300 mg capsule Discontinued 1 NMA PO DAILY 90 January 14, 2025 10:21am January 14, 2025 10:45am Start: 12-15-2023 End: 01-14-2025 Multivit 88-Bthz-Hlscqz 1-Dh a (Pnv-Dha) 27 mg iron-1 mg -300 mg capsule Discontinued 1 NMA PO DAILY 30 December 15, 2023 12:41pm January 14, 2025 10:21am Start: 12-15-2023 Multivit 47-Ir on-Folate 1-Dha (Pnv-Dha) 27 mg iron-1 mg -300 mg capsule Active 1 NMA PO DAILY December 15, 2023 12:41pm Start: 10-03-2023 End: 12-15-2023 Multivit 93-Mmbc-Ywvtwm 1-Dh a (Pnv-Dha) 27 mg iron-1 mg -300 mg capsule Discontinued NMA PO October 03, 2023 12:00am December 15, 2023 12:42pm Start: 10-03-2023 Multivit 47-Ir on-Folate 1-Dha (Pnv-Dha) 27 mg iron-1 mg -300 mg capsule Active CAP PO October 03, 2023 12:00am Multivit Ody-Bgyi-Fr-Herb 186 (Hair, Skin And Nails Advanced) 3.3 mg iron-25 mcg Tablet (1 source) Start: 08-20-2021 Multivit Mif-Tasr-Jf-Herb 186 (Hair, Skin And Nails Advanced) 3.3 mg iron-25 mcg Tablet Active 1 TABLET PO DAILY August 20, 2021 1:00am Naltrexone (20 sources) Opioid Antagonist Start: 03-06-2025 take 1 capsule by mouth once daily Start: 03-06-2025 take 1 capsule by mo [facility] once daily Naltrexone 1.5 mg capsule Active [...] mcg ; (28 mg iron- 800 mcg) DNI-JGZKTQZH-CIUW-FA PO (1 source) Start: 08-03-2023 TBV-WYVCRTZU-QPMO-FA PO daily 08/03/2023 Active Completed/Discontinued Medications Medication [...] Glucose Scanning Reade r (Freestyle Lexi 2 Thorofare) misc (6 sources) Start: 02-28-2024 End: 03-06-2025 Flash Glucose Scanning Reade r (Freestyle Lexi 2 Thorofare) misc Discontinued 0 .Route 1 0 February 28, 2024 12:00am March 06, 2025 2:43pm As directed Start: 02-28-2024 Flash Glucose Scanning Thorofare (Freestyle Lexi 2 Thorofare) misc Active 0 .Route 1 February 28, [...] cycle Start: 04-13-2020 take 2 tablets by [facility] once daily letrozole (FEMARA) 2.5 mg tablet Take 2 tablets by mouth once daily. 10 tablet 2 04/13/2020 Active Comment on above: Take 2 tablets by [facility] once daily. 500 ml magnesium sulfate 40 [...] 2024 12:00am March 06, 2025 2:43pm Pnv No.63-Iron,Euswqhqi-Ui-N mercedes (16 sources) Start: 12-14-2022 End: 09-08-2023 take 1 capsule by mouth once daily Pnv No.63-Iron,Fxxlksvc-Pr-Bpb Discontinued 1 CAP PO DAILY December 14, 2022 12:00am September 08, 2023 2:16pm Start: 12-14-2022 take 1 capsule by [facility] once daily Pnv No.63-Iron,Wtcptxfa-Fz-Gtb Active 1 CAP PO DAILY December 13, 2022 11:00pm Start: 12-14-2022 take 1 capsule by mo uth once daily Pnv No.63-Iron,Saxunmnb-Kp-Rbx Active 1 CAP PO DAILY December 14, 2022 12:00am Pnv No.63-Iron,Xgxnwbdu-Er-D mercedes 27 mg iron- 800 mcg-200 mg capsule (6 sources) Start: 12-14-2022 End: 09-08-2023 Pnv No.63-Iron,Vwlyfmxq-Mx-F mercedes 27 mg iron- 800 mcg-200 mg capsule Discontinued 1 NMA PO DAILY 90 December 14, 2022 12:00am September 08, 2023 2:16pm Start: 12-14-2022 End: 09-08-2023 Pnv No.63-Iron,Fuaafpto-Vj-O mercedes 27 mg iron- 800 mcg-200 mg capsule Discontinued 1 NMA PO DAILY December 14, 2022 12:00am September 08, 2023 2:16pm PNV no.95/ferrous fum/folic ac ( ORAL) (1 source) PNV no.95/ferrou s fum/folic ac ( ORAL) Take by mouth. 0 Active Comment on above: Take by mouth. Oui160-Onmc-Ko-D7-Gic-Gla-H magy [Pnv No.151-Iron 27 Mg-Folic 800 Mcg-Omega3 260 Bq-Yaw-Pvx-Fish Capsule] (Pnv No.151-Iron 27 Mg-Folic 800 Mcg-Omega3 260 ) 27 mg iron-800 mcg-260 mg capsule (6 sources) Start: 10-11-2024 End: 01-14-2025 Nyz391-Ehhv-Jy-K5-Wif-Dod-F magy [Pnv No.151-Iron 27 Mg-Folic 800 Mcg-Omega3 260 Cp-Lst-Qog-Fish Capsule] (Pnv No.151-Iron 27 Mg-Folic 800 Mcg-Omega3 260 ) 27 mg iron-800 mcg-260 mg capsule Discontinued 1 NMA PO DAILY October 11, 2024 12:00am January 14, 2025 10:21am Start: 10-11-2024 Kzr012-Fiey-At -H8-Mlu-Dwl-Fish [Pnv No.151-Iron 27 Mg-Folic 800 Mcg-Omega3 260 Ra-Olm-Vnc-Fish Capsule] (Pnv No.151-Iron 27 Mg-Folic 800 Mcg-Omega3 260 ) 27 mg iron-800 mcg-260 mg capsule Active 1 NMA PO DAILY October 11, 2024 12:00am polyethylene glycol 3350 00817 mg powder for oral solution (2 sources) Osmotic Laxative Start: 10-12-2024 End: 10-13-2024 take 17 g by mouth every twenty-four hours as needed for constipation polyethylene glycol 3350 424041 mg / potassium chloride 2970 mg / sodium bicarbonate 6740 mg / sodium chloride 5860 mg / sodium sulfate 90888 mg powder for oral solution (5 sources) Osmotic Laxative Start: 10-14-2024 End: 03-06-2025 Peg 3350-Electrolytes (Golytely) 236-22.74-6.74 -5.86 gram recon soln Discontinued 240 mL PO EVERY 10 MINUTES NEEDED 4000 0 October 14, 2024 12:00am March 06, 2025 2:43pm until fecal effluent is clear Vit,Kalpesh 52-Coba-Nvazu (Prenatabs Fa) 29-1 mg Tablet (4 sources) Start: 08-20-2021 End: 10-14-2022 Vit,Kalpesh 87-Enlq-Ykhet (Prenatabs Fa) 29-1 mg Tablet Discontinued 1 {tbl} PO DAILY August 20, 2021 1:00am October 14, 2022 2:49pm Vit,Rsjo69-Urag-Mof ic (Prenatabs Fa) 29-1 mg Tablet (20 sources) Start: 08-20-2021 End: 10-14-2022 Vit,Jcfz64-Wqjt-Ii lic (Prenatabs Fa) 29-1 mg Tablet Discontinued 1 {tbl} PO DAILY August 20, 2021 1:00am October 14, 2022 2:49pm Start: 08-20-2021 End: 10-14-2022 take 1 tablet by mouth once daily Vit,Baxm44-Vgpg-Ykuqm (Prenatab s Fa) 29-1 mg Tablet Discontinued 1 TABLET PO DAILY August 20, 2021 12:00am October 14, 2022 1:49pm Start: 08-20-2021 End: 10-14-2022 take 1 tablet by mouth once daily Vit,Edia11-Rwqe-Bmeit (Prenatab s Fa) 29-1 mg Tablet Discontinued 1 TABLET PO DAILY August 20, 2021 1:00am October 14, 2022 2:49pm Start: 08-20-2021 take 1 tablet by isabel th once daily Vit,Cmwi69-Gavw-Ihpxb (Prenatab s Fa) 29-1 mg Tablet Active [...] Episodic Comment on above: patient at [facility] for paracentesis- 10/11/24-10/13/24 Contraceptive and procreative [...] unspecified trimester] 10-03-2023 Episodic Comment on above: [id number], GERALD 4per [facility], Rene Other complications of [...] night from coughing ALONSO 04/26/22 BISHNU mack [facility] 05-12-2022 Unclassified (20 sources) Cold Symptoms [...] an individual with similar symptoms (works at [employer]), but has not been exposed to an individual with strep or secondhand smoke. Medical history includes tonsillectomy, but patient denies history of seasonal allergies, recurrent sinusitis, recurrent strep pharyngitis, asthma or recurrent ear infections. Note for Upper respiratory infection: pt did an at home covid test yesterday -- negativeshe did have tessalon perles on hand from [facility] and starting using them today [...] FSH, TSH, E2, FT3, LH, FT4 #### [place] [address] #### HCG #### [facility] [address] [place] [id number] FSHon 05-12-2025 FSH 5.4 mIU/mL Normal [facility] Comment on above: Result Comment: Adul t Female FSH Reference Ranges (05/26/99): Follicular phase 2.5 - 10.2 mIU/mL Midcycle phase 3.4 - 33.4 mIU/mL Luteal phase 1.5 - 9.1 mIU/mL Post menopausal 23.0 -116.3 mIU/mL Adult Male: 1.4 - 18.1 mIU/mL Performed By: #### P LATRICE, E2, LH #### [place] [address] FT3on 05-12-2025 Free T3 [Mass/Vol] 3.66 pg/mL Normal 2.30-4.20 [facility] Comment on above: Performed By: #### P LATRICE, E2, LH #### [place] [address] FT4on 05-12-2025 Free T4 [Mass/Vol] 1.13 ng/dL Normal 0.89-1.76 [facility] Comment on above: Result Comment: No te - New Reference Range in effect 20 Performed By: #### P LATRICE, FSH, TSH, E2, FT3, LH, FT4 #### [place] [address] #### HCG #### [facility] [address] [place] [phone] HCGon 05-12-2025 hCG, quantitative <1.0 Normal [facility] Comment on above: Performed By: #### P LATRICE, FSH, TSH, E2, FT3, LH, FT4 #### [address] [address] #### HCG #### [facility] [address] [place], [place] [address] Date of LMP Normal [facility] Comment on above: Performed By: #### P LATRICE, FSH, TSH, E2, FT3, LH, FT4 #### [address] [address] #### HCG #### [facility] [place], [place] [address] LHon 05-12-2025 LH 4.0 mIU/mL Normal [facility] Comment on above: Result Comment: No te - New Reference Range in effect 20 Adult Female LH Reference Ranges: Follicular phase 1.9 - 12.5 mIU/mL Midcycle phase 8.7 - 76.3 mIU/mL Luteal phase 0.5 - 16.9 mIU/mL Post menopausal 5.0 - 55.2 mIU/mL Performed By: #### P LATRICE, E2, LH #### [place] [address] PROGon 05-12-2025 Progesterone Level <0.2 Normal [facility] [...] By: #### P LATRICE, E2, LH #### [place] [address] TSHon 05-12-2025 TSH 2.375 mIU/mL Normal 0.550-4.780 [facility] Comment on above: Performed By: #### P LATRICE, FSH, TSH, E2, FT3, LH, FT4 #### [address] [address] #### HCG #### [address] [place], [place] [address] PREG SERUM QUANTon 5 HCG QUANTITATIVE 2 Normal [facility] Comment on above: Result Comment: Refe [...] 3RD TRIMESTER 1000-50,000 Performed By: #### 2 [id number] #### [facility],[address] [place] [address] PROGESTERONE 4317on 04-03-20 25 PROGESTERONE 30.0 ng/mL Normal . [facility] Comment on above: Order Comment: N Result Comment: Foll icular phase 0.1 - 0.9 Luteal phase 1.8 - 23.9 Ovulation phase 0.1 - 12.0 First trimester 11.0 - 44.3 Second trimester 25.4 - 83.3 Third trimester 58.7 - 214.0 Postmenopausal 0.0 - 0.1 Performed at: [facility] [id number] Dye Reel Operator: Heri Louis PhD, Phone: [phone] Performed By: #### L 500.3233, L100.0100, L585.4626 #### [facility] [address] [place], [address] Estradiolon 04-02-2025 ESTRADIOL 340.0 pg/mL Normal [facility] Comment on above: Result Comment: FEMA [...] By: #### L 500.2500, L100.0100, L700.6800 #### [facility] [address] [place], [place], [address] Serum human chorionic gonado tropin detection for pregnancyOrdered By: Yola Schaffer on 04-02-2025 HCG ( test) Ql 15 mIU/mL High <9 [facility] Comment on above: Gestational Age0.2-1 Week: 5-50 mIU/mL1-2 Weeks: 50-500 mIU/mL2-3 Weeks: 100-5000 mIU/mL3-4 Weeks: 500-10,000 mIU/mL4-5 Weeks:1000-50,000 mIU/mL5-6 Weeks: 10,000-100,000 mIU/mL6-8 Weeks: 15,000-200,000 mIU/mL2-3 Months:10,000-100,000 mIU/mL Serum or plasma estradiol me asurement after follitropin dose (mass/volume)Ordered By: Yola Schaffer on 04-02-2025 E2 post dose follitropin [Mass/Vol] 340.0 pg/mL [facility] Comment on above: FEMALES ADULT FEMALE : [...] HCG QUANT. 15 mIU/mL High <9 non-preg [facility] Comment on above: Result Comment: Gest ational Age 0.2-1 Week: 5-50 mIU/mL 1-2 Weeks: 50-500 mIU/mL 2-3 Weeks: 100-5000 mIU/mL 3-4 Weeks: 500-10,000 mIU/mL 4-5 Weeks:1000-50,000 mIU/mL 5-6 Weeks: 10,000-100,000 mIU/mL 6-8 Weeks: 15,000-200,000 mIU/mL 2-3 Months:10,000-100,000 mIU/mL Performed By: #### L 500.2500, L100.0100, L700.6800 #### [facility] [address] [place], [address] PROGESTERONE 4317on 04-01-20 PROGESTERONE 36.7 ng/mL Normal . [facility] Comment on above: Order Comment: N Result Comment: Foll icular phase 0.1 - 0.9 Luteal phase 1.8 - 23.9 Ovulation phase 0.1 - 12.0 First trimester 11.0 - 44.3 Second trimester 25.4 - 83.3 Third trimester 58.7 - 214.0 Postmenopausal 0.0 - 0.1 Performed at: - [facility] [id number] Dye Reel Operator: Heri Louis PhD, Phone: [phone] Performed By: #### L 500.2500, L100.0100, L700.6800 #### [facility] [address] [place], [place], [id number] Estradiolon 03-31-2025 ESTRADIOL 575.0 pg/mL Normal [facility] Comment on above: Result Comment: FEMA [...] By: #### L 500.2500, L100.0100, L700.6800 #### [facility] [place], [address] Serum human chorionic gonado tropin detection for pregnancyOrdered By: Yola Schaffer on 03-31-2025 HCG ( test) Ql 41 mIU/mL High <9 [facility] Comment on above: Gestational Age0.2-1 Week: 5-50 mIU/mL1-2 Weeks: 50-500 mIU/mL2-3 Weeks: 100-5000 mIU/mL3-4 Weeks: 500-10,000 mIU/mL4-5 Weeks:1000-50,000 mIU/mL5-6 Weeks: 10,000-100,000 mIU/mL6-8 Weeks: 15,000-200,000 mIU/mL2-3 Months:10,000-100,000 mIU/mL Serum or plasma estradiol me asurement after follitropin dose (mass/volume)Ordered By: Yola Schaffer on 03-31-2025 E2 post dose follitropin [Mass/Vol] 575.0 pg/mL [facility] Comment on above: FEMALES ADULT FEMALE : [...] on 03-31-2025 TSH Qn 1.610 uIU/mL 0.300-4.200 [facility] Thyroid Stim Hormone (TSH)on 03-31-2025 TSH 1.610 uIU/mL Normal 0.300-4.200 [facility] Comment on above: Performed By: #### L 500.2500, L100.0100, L700.3450 #### [facility] [address] [place], [place], [id number] hCG Titer Quant., Serumon HCG QUANT. 41 mIU/mL High <9 non-preg [facility] Comment on above: Result Comment: Gest ational Age 0.2-1 Week: 5-50 mIU/mL 1-2 Weeks: 50-500 mIU/mL 2-3 Weeks: 100-5000 mIU/mL 3-4 Weeks: 500-10,000 mIU/mL 4-5 Weeks:1000-50,000 mIU/mL 5-6 Weeks: 10,000-100,000 mIU/mL 6-8 Weeks: 15,000-200,000 mIU/mL 2-3 Months:10,000-100,000 mIU/mL Performed By: #### L 500.2500, L100.0100, L700.6800 #### [facility] [address] [place], [address] PROGESTERONE 4317on 03-29-20 25 PROGESTERONE 42.6 ng/mL Normal . [facility] Comment on above: Order Comment: N Result Comment: Foll icular phase 0.1 - 0.9 Luteal phase 1.8 - 23.9 Ovulation phase 0.1 - 12.0 First trimester 11.0 - 44.3 Second trimester 25.4 - 83.3 Third trimester 58.7 - 214.0 Postmenopausal 0.0 - 0.1 Performed at: [facility] [id number] Dye Reel Operator: Heri Louis PhD, Phone: [phone] Performed By: #### L 500.8266, L100.4483, L080.5614 #### [facility] [address] [place], [address] Serum human chorionic gonado tropin detection for pregnancyOrdered By: Yola Schaffer on 03-28-2025 HCG ( test) Ql 97 mIU/mL High <9 [facility] Comment on above: Gestational Age0.2-1 Week: 5-50 mIU/mL1-2 Weeks: 50-500 mIU/mL2-3 Weeks: 100-5000 mIU/mL3-4 Weeks: 500-10,000 mIU/mL4-5 Weeks:1000-50,000 mIU/mL5-6 Weeks: 10,000-100,000 mIU/mL6-8 Weeks: 15,000-200,000 mIU/mL2-3 Months:10,000-100,000 mIU/mL hCG Titer Quant., Serumon HCG QUANT. 97 mIU/mL High <9 non-preg [facility] Comment on above: Result Comment: Gest ational Age 0.2-1 Week: 5-50 mIU/mL 1-2 Weeks: 50-500 mIU/mL 2-3 Weeks: 100-5000 mIU/mL 3-4 Weeks: 500-10,000 mIU/mL 4-5 Weeks:1000-50,000 mIU/mL 5-6 Weeks: 10,000-100,000 mIU/mL 6-8 Weeks: 15,000-200,000 mIU/mL 2-3 Months:10,000-100,000 mIU/mL Performed By: #### L 500.2500, L100.0100, L700.6800 #### [facility] [address] [place], [place], [address] PROGESTERONE 4317on 03-25-20 PROGESTERONE 42.6 ng/mL Normal . [facility] Comment on above: Order Comment: N Result Comment: Foll icular phase 0.1 - 0.9 Luteal phase 1.8 - 23.9 Ovulation phase 0.1 - 12.0 First trimester 11.0 - 44.3 Second trimester 25.4 - 83.3 Third trimester 58.7 - 214.0 Postmenopausal 0.0 - 0.1 Performed at: [address] [id number] Dye Reel Operator: Heri Louis PhD, Phone: [phone] Performed By: #### L 500.2500, L100.0100, L700.6800 #### [facility] [address] [place], [place], [id number] Estradiolon 03-24-2025 ESTRADIOL 591.0 pg/mL Normal [facility] Comment on above: Result Comment: FEMA LES ADULT FEMALE: Premenopausal: 15-350 pg/mL(E2 levels vary widely through the menstrual cycle) Postmenopausal: <10 pg/mL OMHIT STAGES MEAN AGE REFERENCE RANGES Stage I(>14 [...] By: #### L 500.2500, L100.0100, L700.6800 #### [facility] [place], [address] Serum or plasma estradiol me asurement after follitropin dose (mass/volume)Ordered By: Yola Schaffer on 03-24-2025 E2 post dose follitropin [Mass/Vol] 591.0 pg/mL [facility] Comment on above: FEMALES ADULT FEMALE : [...] E2on 03-12-2025 Estradiol Level 983.94 pg/mL Normal [facility] Comment on above: Result Comment: Adult Female E2 Reference Ranges: Follicular phase 19.5 - 144.2 pg/mL Midcycle 63.9 - 356.7 pg/mL Luteal phase 55.8 - 214.2 pg/mL Post menopausal 0 - 33.2 pg/mL Performed By: #### E 2, LH, PROG #### [address] [address] LHon 03-12-2025 LH 5.8 mIU/mL Normal [facility] Comment on above: Result Comment: No te - New Reference Range in effect 20Adult Female LH Reference Ranges: Follicular phase 1.9 - 12.5 mIU/mL Midcycle phase 8.7 - 76.3 mIU/mL Luteal phase 0.5 - 16.9 mIU/mL Post menopausal 5.0 - 55.2 mIU/mL Performed By: #### E 2, LH, PROG #### [place] [address] PROGon 03-12-2025 Progesterone Level <0.2 Normal [facility] [...] By: #### E 2, LH, PROG #### [place] [address] E2on 03-10-2025 Estradiol Level 73.69 pg/mL Normal [facility] Comment on above: Result Comment: Adult Female E2 Reference Ranges: Follicular phase 19.5 - 144.2 pg/mL Midcycle 63.9 - 356.7 pg/mL Luteal phase 55.8 - 214.2 pg/mL Post menopausal 0 - 33.2 pg/mL Performed By: #### P LATRICE, E2, LH #### [place] [address] LHon 03-10-2025 LH 8.0 mIU/mL Normal [facility] Comment on above: Result Comment: No te - New Reference Range in effect 20Adult Female LH Reference Ranges: Follicular phase 1.9 - 12.5 mIU/mL Midcycle phase 8.7 - 76.3 mIU/mL Luteal phase 0.5 - 16.9 mIU/mL Post menopausal 5.0 - 55.2 mIU/mL Performed By: #### P LATRICE, E2, LH #### [place] [address] PROGon 03-10-2025 Progesterone Level 0.2 ng/mL Normal [...] By: #### P LATRICE, E2, LH #### [place] [address] E2on 03-07-2025 Estradiol Level 74.44 pg/mL Normal [facility] Comment on above: Result Comment: Adult Female E2 Reference Ranges: Follicular phase 19.5 - 144.2 pg/mL Midcycle 63.9 - 356.7 pg/mL Luteal phase 55.8 - 214.2 pg/mL Post menopausal 0 - 33.2 pg/mL Performed By: #### P LATRICE, E2, LH #### [place] [address] LHon 03-07-2025 LH 4.0 mIU/mL Normal [facility] Comment on above: Result Comment: No te - New Reference Range in effect 20Adult Female LH Reference Ranges: Follicular phase 1.9 - 12.5 mIU/mL Midcycle phase 8.7 - 76.3 mIU/mL Luteal phase 0.5 - 16.9 mIU/mL Post menopausal 5.0 - 55.2 mIU/mL Performed By: #### P LATRICE, E2, LH #### [place] [address] PROGon 03-07-2025 Progesterone Level <0.2 Normal [facility] [...] By: #### P LATRICE, E2, LH #### [address] [place], [place] [address] Event Manager Office Visit Reporton 03-06-2025 Event Manager Office Visit Report [facility] [address], [address] [place] [address] OFFICE VISIT Date of Service: 03/06/25 MR#: [id number] Acct: [id number] Name: JOSE EDWARD Rep #: [id number] : 1995 Provider: Dr. 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 Required: No Is patient in pain?: No [...] polyp Abnormal uterine bleeding (AUB) Surgical History Daisy teeth extracted History of hysteroscopy Status post laparoscopy S/P D C (status post dilation and curettage) Hx of lumpectomy History of tonsillectomy and adenoidectomy Family History Mother Diabetes Uncle Diabetes Grandmother Diabetes Social History (Updated 03/06/25 @ 14:47 by Dunia Fuentes) adopted: No household members: spouse number of children: 1 current occupational status: employed current occupation: [employer] current occupational exposures/hazards: No pets and animals: Yes (Avoid litterbox) pets and animals: cat(s) and dog(s) history of recent travel: Yes ([facility]) out of state: Yes out of country: No sexually active: Yes Smoking Status: Former smoker Electronic Cigarette Use: with nicotine alcohol intake: never substance use type: does not use well-balanced diet: daily or most days caffeine: No eating out: 1-3 times/week during the past year weight has: increased > 10 lbs what type of physical activity do you participate in: none jessica/gnosticism: Spiritism seatbelt use: always do you feel safe [...] Menopausal Symptoms: (more content not included)... Normal [facility] E2on 02-28-2025 Estradiol Level 44.61 pg/mL Normal [facility] Comment on above: Result Comment: Adult Female E2 Reference Ranges: Follicular phase 19.5 - 144.2 pg/mL Midcycle 63.9 - 356.7 pg/mL Luteal phase 55.8 - 214.2 pg/mL Post menopausal 0 - 33.2 pg/mL Performed By: #### P LATRICE, E2, LH #### [place] [address] FSHon 02-28-2025 FSH 6.6 mIU/mL Normal LUBA MILLAN Comment on above: Result Comment: Adul t Female FSH Reference Ranges (05/26/99): Follicular phase 2.5 - 10.2 mIU/mL Midcycle phase 3.4 - 33.4 mIU/mL Luteal phase 1.5 - 9.1 mIU/mL Post menopausal 23.0 -116.3 mIU/mL Adult Male: 1.4 - 18.1 mIU/mL Performed By: #### P LATRICE, E2, LH #### [address] [address] FT3on 02-28-2025 Free T3 [Mass/Vol] 2.68 pg/mL Normal 2.30-4.20 AULTMA N MASSILLON Comment on above: Performed By: #### P LATRICE, E2, LH #### [place] [address] FT4on 02-28-2025 Free T4 [Mass/Vol] 1.24 ng/dL Normal 0.89-1.76 AULTMA N MASSILLON Comment on above: Result Comment: No te - New Reference Range in effect 20 Performed By: #### P LATRICE, E2, LH #### [place] [address] HCGon 02-28-2025 Date of LMP 02/26/2025 Normal LUBA MASSILLON Comment on above: Performed By: #### P LATRICE, E2, LH #### [place] [address] hCG, quantitative <1.0 Normal LUBA MASSILLON Comment on above: Performed By: #### P LATRICE, E2, LH #### [place] [address] LHon 02-28-2025 LH 6.1 mIU/mL Normal LUBA MASSILLON Comment on above: Result Comment: No te - New Reference Range in effect 20 Adult Female LH Reference Ranges: Follicular phase 1.9 - 12.5 mIU/mL Midcycle phase 8.7 - 76.3 mIU/mL Luteal phase 0.5 - 16.9 mIU/mL Post menopausal 5.0 - 55.2 mIU/mL Performed By: #### P LATRICE, E2, LH #### [place] [address] PROGon 02-28-2025 Progesterone Level 0.3 ng/mL Normal [...] Performed By: #### P LATRICE E2, #### [facility] [address] [place] [address] TSHon 02-28-2025 TSH 0.688 mIU/mL Normal 0.550-4.780 LUBA MILLAN Comment on above: Performed By: #### P LATRICE E2, #### [facility] [address] [place] [address] Urine Cultureon 10-15-2024 URC Culture exhibits no growth. Normal [facility] Comment on above: Performed By: #### M 100.2200 #### [facility] [address] [facility] [place], [place], [address] Abdomen Single View (Portabl e)on 10-14-2024 Abdomen Single View (Portable) [facility] [address] [place], [place] [address] Abdomen Single View (Portable) MR#: [id number] Acct: [id number] Name: JOSE EDWARD Rep #: [id number] : 1995 F 29 From: Nataliay Brown DO PCP: CHERYL Samano Status: PRE ER Study: Abdomen Single View (Portable) Date of Exam: 0 10/14/24 Exam# [id number] Ordering Dr: Anabella Malave PROCEDURE: ABDOMEN SINGLE VIEW (PORTABLE) 10/14/2024 REASON FOR EXAM: ABDOMINAL PAIN, CONSTIPATION TECHNIQUE: Single view abdomen. COMPARISON: None FINDINGS: Bowel gas: Nonobstructive bowel gas pattern. No evidence of obstruction. Mild stool burden within the large bowel. Calcifications: No suspicious calcifications. Bones: The bones are unremarkable. Other: RAD/Abdomen Single View (Portable) IMPRESSION: CONSTIPATION. Reading Location: [facility] CC: CHERYL Weinstein; CHERYL Samano Bank President: Signed Normal [facility] Absolute neutrophil countOrd ered By: Soren Babcock on 10-14-2024 Neutrophils (Bld) [#/Vol] 7.7 10*3/uL 2.0-7.7 [facility] Amorphous sediment detection in urine sediment by light microscopyOrdered By: Anabella Malave on 10-14-2024 Amorphous sediment LM Ql (Urine sed) 1+ PHOS [facility] Anion gap in Serum or Plasma Ordered By: Soren Babcock on 10-14-2024 Anion gap [Moles/Vol] 11 mmol/L 5-15 [facility] BUN/creatinine ratioOrdered By: Soren Babcock on 10-14-2024 Urea nitrogen/Creatinine [Mass ratio] 15.2 mg/mg 10-20 [facility] Basophil percentageOrdered B y: Soren Babcock on 10-14-2024 Basophils/100 WBC (Bld) 0.2 % 0-1 [facility] Beta HCG ( test) Ql Ordered By: Soren Babcock on 10-14-2024 Serum Test, Qualitative Negative [facility] Bilirubin Test strip Ql (U)O rdered By: Anabella Malave on 10-14-2024 Bilirubin Ql (U) 3 mg/dL High Negative [facility] Comment on above: COLOR OF URINE MAY A FFECT DIPSTICK RESULTS. Bilirubin, totalOrdered By: Soren Babcock on 10-14-2024 Bilirubin [Mass/Vol] 0.56 mg/dL 0.00-1.30 [facility] CBC W/Diff, Automatedon 10-01 Absolute Lymph 2.42 X10 3/uL Normal 0.83-4.51 [facility] Comment on above: Performed By: #### L 500.2500, L100.0100, L700.6800 #### [facility] [address] [place], [address] Absolute Neut 7.7 X10 3/uL Normal 2.0-7.7 [facility] Comment on above: Performed By: #### L 500.2500, L100.0100, L700.6800 #### [facility] [address] [place], [address] Basophils/100 WBC (Bld) 0.2 % Normal 0-1 [facility] Comment on above: Performed By: #### L 500.2500, L100.0100, L700.6800 #### [facility] [address] [place], [address] Eosinophils/100 WBC (Bld) 1.6 % Normal 0-5 [facility] Comment on above: Performed By: #### L 500.2500, L100.0100, L700.6800 #### [facility] [address] [place], [address] Erythrocyte distribution width (RBC) [Ratio] 14.4 % Normal 11.6-14.6 [facility] Comment on above: Performed By: #### L 500.2500, L100.0100, L700.6800 #### [facility] [address] [place], [address] Hematocrit (Bld) [Volume fraction] 32.0 % Low 37-47 [facility] Comment on above: Performed By: #### L 500.2500, L100.0100, L700.6800 #### [facility] [address] [place], [address] Hemoglobin (Bld) [Mass/Vol] 10.4 g/dL Low 12.0-15.0 [facility] Comment on above: Performed By: #### L 500.2500, L100.0100, L700.6800 #### [facility] [address] [place], [address] IG% 0.500 Normal 0.0-0.9 [facility] Comment on above: Result Comment: IG% - Immature Granulocytes (promyelocytes, myelocytes and metamyelocytes) > 1% indicates that a LEFT SHIFT is Present. Performed By: #### L 500.2500, L100.0100, L700.6800 #### [facility] [address] [place], [address] Lymphocytes/100 WBC (Bld) 21.9 % Normal 19-41 [facility] Comment on above: Performed By: #### L 500.2500, L100.0100, L700.6800 #### [facility] [address] [place], [address] MCH (RBC) [Entitic mass] 29.9 pg Normal 27.0-32.0 [facility] Comment on above: Performed By: #### L 500.2500, L100.0100, L700.6800 #### [facility] [address] [place], [address] MCHC (RBC) [Mass/Vol] 32.5 g/dL Normal 32-36 [facility] Comment on above: Performed By: #### L 500.2500, L100.0100, L700.6800 #### [facility] [address] [place], [address] MCV (RBC) [Entitic vol] 92.0 fL Normal 81-99 [facility] Comment on above: Performed By: #### L 500.2500, L100.0100, L700.6800 #### [facility] [address] [place], [address] Monocytes/100 WBC (Bld) 6.5 % Normal 0-10 [facility] Comment on above: Performed By: #### L 500.2500, L100.0100, L700.6800 #### [facility] [address] [place], [address] Neutrophils/100 WBC (Bld) 69.3 % Normal 47-70 [facility] Comment on above: Performed By: #### L 500.2500, L100.0100, L700.6800 #### [facility] [address] [place], [address] Nucleated RBC (Bld) [#/Vol] 0 10*3/uL Normal 0-5 [facility] Comment on above: Performed By: #### L 500.2500, L100.0100, L700.6800 #### [facility] [address] [place], [address] Platelet mean volume (Bld) [Entitic vol] 9.2 fL Normal 6.2-12.0 [facility] Comment on above: Performed By: #### L 500.2500, L100.0100, L700.6800 #### [facility] [address] [place], [address] Platelets (Bld) [#/Vol] 237 10*3/uL Normal 150-450 [facility] Comment on above: Performed By: #### L 500.2500, L100.0100, L700.6800 #### [facility] [address] [place], [address] RBC (Bld) [#/Vol] 3.48 10*6/uL Low 4.2-5.4 [facility] Comment on above: Performed By: #### L 500.2500, L100.0100, L700.6800 #### [facility] [address] [place], [address] RDW SD 46.8 fl High 35.1-43.9 [facility] Comment on above: Performed By: #### L 500.2500, L100.0100, L700.6800 #### [facility] [address] [place], [address] WBC (Bld) [#/Vol] 11.1 10*3/uL High 4.4-11.0 [facility] Comment on above: Performed By: #### L 500.2500, L100.0100, L700.6800 #### [facility] [address] [place], [address] Carbon dioxide, total [Moles /volume] in Central venous bloodOrdered By: Soren Babcock on 10-14-2024 CO2 [Moles/Vol] 24.3 mmol/L 21.0-32.0 [facility] Chloride assayOrdered By: Ayan Babcock on 10-14-2024 Chloride [Moles/Vol] 101 mmol/L 98-108 [facility] Comprehensive Metabolic Prof ilon 10-14-2024 Albumin [Mass/Vol] 4.0 g/dL Normal 3.5-5.0 [facility] Comment on above: Performed By: #### L 500.2500, L100.0100, L700.6800 #### [facility] [address] [place], [address] Albumin/Globulin [Mass ratio] 1.7 {ratio} Normal 0.9-2.4 [facility] Comment on above: Performed By: #### L 500.2500, L100.0100, L700.6800 #### [facility] [address] [place], [address] ALK PHOS 65 U/L Normal 35-104 [facility] Comment on above: Performed By: #### L 500.2500, L100.0100, L700.6800 #### [facility] [address] [place], [address] ALT [Catalytic activity/Vol] 14 U/L Normal <=34 [facility] Comment on above: Performed By: #### L 500.2500, L100.0100, L700.6800 #### [facility] [address] [place], [address] AST [Catalytic activity/Vol] 19 U/L Normal <=31 [facility] Comment on above: Performed By: #### L 500.2500, L100.0100, L700.6800 #### [facility] [address] [place], [address] Bilirubin [Mass/Vol] 0.56 mg/dL Normal 0.00-1.30 [facility] Comment on above: Performed By: #### L 500.2500, L100.0100, L700.6800 #### [facility] [address] [place], [address] BUN/CRE 15.2 RATIO Normal 10-20 [facility] Comment on above: Performed By: #### L 500.2500, L100.0100, L700.6800 #### [facility] [address] [place], [address] Calcium [Mass/Vol] 8.8 mg/dL Normal 7.6-11.0 [facility] Comment on above: Performed By: #### L 500.2500, L100.0100, L700.6800 #### [facility] [address] [place], [address] Chloride [Moles/Vol] 101 mmol/L Normal 98-108 [facility] Comment on above: Performed By: #### L 500.2500, L100.0100, L700.6800 #### [facility] [address] [place], [address] CO2 [Moles/Vol] 24.3 mmol/L Normal 21.0-32.0 [facility] Comment on above: Performed By: #### L 500.2500, L100.0100, L700.6800 #### [facility] [address] [place], [address] Creatinine [Mass/Vol] 0.60 mg/dL Low 0.70-1.20 [facility] Comment on above: Performed By: #### L 500.2500, L100.0100, L700.6800 #### [facility] [address] [place], [address] ECRCL 141.63 ml/min Normal 50-250 [facility] Comment on above: Performed By: #### L 500.2500, L100.0100, L700.6800 #### [facility] [address] [place], [address] GAP 11 Normal 5-15 [facility] Comment on above: Performed By: #### L 500.2500, L100.0100, L700.6800 #### [facility] [address] [place], [address] GFR/1.73 sq M.predicted among non-blacks MDRD (S/P/Bld) [Vol rate/Area] 126 mL/min/{1.73_m2} Normal >60 [facility] Comment on above: Result Comment: mL/m in/1.73m2 CKD-EPI Creatinine Equation (2020) Performed By: #### L 500.2500, L100.0100, L700.6800 #### [facility] [address] [place], [address] Globulin (S) [Mass/Vol] 2.4 g/dL Normal 2.2-4.2 [facility] Comment on above: Performed By: #### L 500.2500, L100.0100, L700.6800 #### [facility] [address] [place], [address] Glucose [Mass/Vol] 112 mg/dL High 70-99 [facility] Comment on above: Performed By: #### L 500.2500, L100.0100, L700.6800 #### [facility] [address] [place], [address] Potassium [Moles/Vol] 3.7 mmol/L Normal 3.3-5.1 [facility] Comment on above: Performed By: #### L 500.2500, L100.0100, L700.6800 #### [facility] [address] [place], [address] Sodium [Moles/Vol] 137 mmol/L Normal 133-145 [facility] Comment on above: Performed By: #### L 500.2500, L100.0100, L700.6800 #### [facility] [address] [place], [address] T PROT 6.4 g/dL Normal 5.9-8.4 [facility] Comment on above: Performed By: #### L 500.2500, L100.0100, L700.6800 #### [facility] [address] [place], [address] Urea nitrogen [Mass/Vol] 9 mg/dL Normal 4-19 [facility] Comment on above: Performed By: #### L 500.2500, L100.0100, L700.6800 #### [facility] [address] [place], [address] Emergency Department Summary on 10-14-2024 Emergency Department Summary [facility] Medical Records Department [address] [place] [address] Emergency Department Summary 10/14/24 MR#: [id number] Acct: [id number] Name: JOSE EDWARD Rep #: [id number] : 1995 29 From: Soren Babcock MD PCP: CHERYL Samano Status:[facility] ER Location: ED HPI History of Present Illness Chief Complaint: Abd Pain Narrative Narrative: 29-year-old female presents with abdominal pain. On 10/11/2024 she drove to [place], [place] to have egg retrieval at a fertility clinic. They did the procedure vaginally and punctured her bladder while retrieving some eggs. They prescribed Keflex and Pyridium. She drove home that same day and developed chest pain, shortness of breath, nausea and abdominal pain and had difficulty emptying her bladder. She was evaluated at [place] [facility] on the same day 10/[address] scan of chest abdomen pelvis negative for PE. There were enlarged ovaries with numerous cysts and moderate volume ascites compatible with ovarian hyperstimulation syndrome. She also had a [place] placed for urinary retention. She was transferred to [facility] for definitive treatment. She states they attempted [...] of breath are much better. [facility] Medical History Abnormal uterine bleeding Conceived by [...] ea 02/28/24 Unknown Rx (FreeStyle Lexi 2 Thorofare) flash glucose sensor (FreeStyle #1 ea 02/28/24 Unknown Rx Lexi 2 Sensor kit) PNV no.151-iron 27 mg-folic 800 1 cap PO DAILY 10/11/24 Unknown Hi story mcg-omega3 260 bp-yip-han-fish capsule ( Multi-DHA (with vitamin K)) cabergoline [...] Diabetes Uncle Diabetes Grandmother Diabetes Surgical History Daisy teeth extracted History of hysteroscopy Status post laparoscopy S/P D C (status post dilation and curettage) Hx of lumpectomy History of tonsillectomy and adenoidectomy Social History adopted: No household members: spouse number of children: 0 current occupational status: employed current occupation: [employer] current occupational exposures/hazards: No pets and animals: Yes (Avoid litterbox) pets and animals: (more content not included)... Normal [facility] Eosinophil percentageOrdered By: Soren Babcock on 10-14-2024 Eosinophils/100 WBC (Bld) 1.6 % 0-5 [facility] Epithelial cells.squamous LM Ql (Urine sed)Ordered By: Anabella Malave on 10-14-2024 Epithelial cells.squamous LM.HPF (Urine sed) [#/Area] 25 /[HPF] 5-10 [facility] Erythrocyte distribution wid th (RBC) [Ratio]Ordered By: Soren Babcock on 10-14-2024 Erythrocyte distribution width (RBC) [Entitic vol] 46.8 fL High 35.1-43.9 [facility] Erythrocyte distribution wid th ratioOrdered By: Soren Babcock on 10-14-2024 Erythrocyte distribution width (RBC) [Ratio] 14.4 % 11.6-14.6 [facility] Estimation of creatinine rory aranceOrdered By: Soren Babcock on 10-14-2024 Estimated Creatinine Clearance Calc 141.63 ml/min 50-250 [facility] GFR/1.73 sq M.predicted checo g non-blacks MDRD (S/P/Bld) [Vol rate/Area]Ordered By: Soren Babcock on 10-14-2024 Estimated GFR (MDRD) Non-Af Amer 126 >60 [facility] Comment on above: mL/min/1.73m2 CKD-EP I Creatinine Equation (2020) Glucose Ql (U)Ordered By: Carolyn Malave on 10-14-2024 Urine Glucose (UA) Normal mg/dl Normal [facility] Hematocrit Auto (Bld) [Volum e fraction]Ordered By: Soren Babcock on 10-14-2024 Hematocrit (Bld) [Volume fraction] 32.0 % Low 37-47 [facility] Hemoglobin measurementOrdere d By: Soren Babcock on 10-14-2024 Hemoglobin (Bld) [Mass/Vol] 10.4 g/dL Low 12.0-15.0 [facility] Immature granulocytes/100 WB C Auto (Bld)Ordered By: Soren Babcock on 10-14-2024 Immature granulocytes/100 WBC (Bld) 0.500 % 0.0-0.9 [facility] Comment on above: IG% - Immature Granu locytes (promyelocytes, myelocytes and metamyelocytes) > 1% indicates that a LEFT SHIFT is Present. Ketones Test strip Ql (U)Ord ered By: Anabella Malave on 10-14-2024 Ketones Ql (U) Negative Negative [facility] - Chemistry and C hemistry - challengeOrdered By: Soren Babcock on 10-14-2024 AST [Catalytic activity/Vol] 19 U/L <32 [facility] Lipaseon 10-14-2024 Lipase [Catalytic activity/Vol] 29 U/L Normal 13-75 [facility] Comment on above: Result Comment: Cyndi hawk note: LIPASE revised reference range effective 22. New Lipase methodology. Expected to produce lower values than the previous assay method. NEW Reference Range: 13 - 75 U/L Performed By: #### L 500.2500, L100.0100, L700.6800 #### [facility] [address] [place], [address] Lipase measurementOrdered By : Soren Babcock on 10-14-2024 Lipase [Catalytic activity/Vol] 29 U/L 13-75 [facility] Comment on above: Please note:LIPASE r evised reference range effective 22. New Lipase methodology. Expected to produce lower values than the previous assay method. NEW Reference Range: 13 - 75 U/L Lymphocytes Auto (Unsp spec) [#/Vol]Ordered By: Soren Babcock on 10-14-2024 Lymphocytes (Bld) [#/Vol] 2.42 10*3/uL 0.83-4.51 [facility] Lymphocytes/100 WBC Auto (Un sp spec)Ordered By: Soren Babcock on 10-14-2024 Lymphocytes/100 WBC (Bld) 21.9 % 19-41 [facility] MCV (mean corpuscular volume ) determinationOrdered By: Soren Babcock on 10-14-2024 MCV (RBC) [Entitic vol] 92.0 fL 81-99 [facility] Mean corpuscular hemoglobin (MCH) determinationOrdered By: Soren Babcock on 10-14-2024 MCH (RBC) [Entitic mass] 29.9 pg 27.0-32.0 [facility] Mean corpuscular hemoglobin concentration (MCHC) determinationOrdered By: Soren Babcock on 10-14-2024 MCHC (RBC) [Mass/Vol] 32.5 g/dL 32-36 [facility] Mean platelet volume determi nationOrdered By: Soren Babcock on 10-14-2024 Platelet mean volume (Bld) [Entitic vol] 9.2 fL 6.2-12.0 [facility] Microscopic analysis of urin e for red blood cells (RBC)Ordered By: Anabella Malave on 10-14-2024 Urine RBC 10-25 SEEN /hpf 0-5 [facility] Monocyte percentageOrdered B y: Soren Babcock on 10-14-2024 Monocytes/100 WBC (Bld) 6.5 % 0-10 [facility] Mucus LM Ql (Urine sed)Order ed By: Anabella Malave on 10-14-2024 Mucus Ql (Urine sed) 0 SEEN /hpf [facility] Neutrophil percentageOrdered By: Soren Babcock on 10-14-2024 Neutrophils/100 WBC (Bld) 69.3 % 47-70 [facility] Nitrite Test strip Ql (U)Ord ered By: Anabella Malave on 10-14-2024 Nitrite Ql (U) Positive High Negative [facility] Nucleated red blood cell per centageOrdered By: Soren Babcock on 10-14-2024 Nucleated RBC/100 WBC (Bld) [Ratio] 0 % 0-5 [facility] Platelet countOrdered By: Ayan Babcock on 10-14-2024 Platelets (Bld) [#/Vol] 237 10*3/uL 150-450 [facility] Potassium (Unsp spec) [Mass/ Vol]Ordered By: Soren Babcock on 10-14-2024 Potassium [Moles/Vol] 3.7 mmol/L 3.3-5.1 [facility] ,Serum,hCG Quali.on 10-14-2024 HCG, SERUM QUAL Negative Normal [facility] Comment on above: Performed By: #### L 500.2500, L100.0100, L700.6800 #### [facility] [address] [place] [address]. [place], [address] Protein Test strip Ql (U)Ord ered By: Anabella Malave on 10-14-2024 Protein Ql (U) 30 mg/dl High Negative [facility] RBC Auto (Bld) [#/Vol]Ordere d By: Soren Babcock on 10-14-2024 RBC (Bld) [#/Vol] 3.48 10*6/uL Low 4.2-5.4 [facility] Serum creatinine measurement (mass/volume)Ordered By: Soren Babcock on 10-14-2024 Creatinine [Mass/Vol] 0.60 mg/dL Low 0.70-1.20 [facility] Serum globulin measurementOr dered By: Soren Babcock on 10-14-2024 Globulin (S) [Mass/Vol] 2.4 g/dL 2.2-4.2 [facility] Serum glucose measurement (m ass/volume)Ordered By: Soren Babcock on 10-14-2024 Glucose [Mass/Vol] 112 mg/dL High 70-99 [facility] Serum or plasma alanine eric otransferase (ALT) measurementOrdered By: Soren Babcock on 10-14-2024 ALT [Catalytic activity/Vol] 14 U/L <35 [facility] Serum or plasma albumin shannon urement (mass/volume)Ordered By: Soren Babcock on 10-14-2024 Albumin [Mass/Vol] 4.0 g/dL 3.5-5.0 [facility] Serum or plasma albumin/glob ulin mass ratioOrdered By: Soren Babcock on 10-14-2024 Albumin/Globulin [Mass ratio] 1.7 {ratio} 0.9-2.4 [facility] Serum or plasma alkaline meredith sphatase measurementOrdered By: Soren Babcock on 10-14-2024 ALP [Catalytic activity/Vol] 65 U/L 35-104 [facility] Serum or plasma calcium shannon urement (mass/volume)Ordered By: Soren Babcock on 10-14-2024 Calcium [Mass/Vol] 8.8 mg/dL 7.6-11.0 [facility] Serum or plasma urea nitroge n measurement (mass/volume)Ordered By: Soren Babcock on 10-14-2024 Urea nitrogen [Mass/Vol] 9 mg/dL 4-19 [facility] Sodium levelOrdered By: Soren Babcock on 10-14-2024 Sodium [Moles/Vol] 137 mmol/L 133-145 [facility] Total proteinOrdered By: Max Bbacock on 10-14-2024 Protein [Mass/Vol] 6.4 g/dL 5.9-8.4 [facility] Urinalysis, Completeon 10-14 AMORPHOUS 1+ PHOS Normal [facility] Comment on above: Order Comment: COLOR OF URINE MAY AFFECT DIPSTICK RESULTS.HOT PLATE [employer]OD PR[employer] FEEDER TO SPECIFY Performed By: #### L 500.2500, L100.0100, L700.6800 #### [facility] [address] [place], [address] RBC 10-25 SEEN Normal 0-5 [facility] Comment on above: Order Comment: COLOR OF URINE MAY AFFECT DIPSTICK RESULTS.HOT PLATE [employer] PR[employer] FEEDER TO SPECIFY Performed By: #### L 500.2500, L100.0100, L700.6800 #### [facility] [address] [place], [address] EPI,SQUAMOUS 25-50 SEEN Normal 5-10 [facility] Comment on above: Order Comment: COLOR OF URINE MAY AFFECT DIPSTICK RESULTS.HOT PLATE [employer]OD [employer] FEEDER TO SPECIFY Performed By: #### L 500.2500, L100.0100, L700.6800 #### [facility] [address] [place], [address] WBC 0-5 SEEN Normal 0-5 [facility] Comment on above: Order Comment: COLOR OF URINE MAY AFFECT DIPSTICK RESULTS.HOT PLATE [employer] FEEDER TO SPECIFY Performed By: #### L 500.2500, L100.0100, L700.6800 #### [facility] [address] [place], [address] BACTERIA 0 SEEN Normal None Seen [facility] Comment on above: Order Comment: COLOR OF URINE MAY AFFECT DIPSTICK RESULTS.HOT PLATE [employer]OD [employer] FEEDER TO SPECIFY Performed By: #### L 500.2500, L100.0100, L700.6800 #### [facility] [address] [place], [address] Mucus Ql (Urine sed) 0 SEEN Normal [facility] Comment on above: Order Comment: COLOR OF URINE MAY AFFECT DIPSTICK RESULTS.HOT PLATE [employer]OD [employer] FEEDER TO SPECIFY Performed By: #### L 500.2500, L100.0100, L700.6800 #### [facility] [address] [place], [address] Urine blood detectionOrdered By: Anabella Malave on 10-14-2024 Urine Occult Blood 150 /ul High Negative [facility] Urine clarityOrdered By: Sapna Malave on 10-14-2024 Clarity (U) Sl. Cloudy Clear [facility] Urine color determinationOrd ered By: Anabella Malave on 10-14-2024 Color (U) Rita Yellow [facility] Urine leukocyte esterase det ection by dipstickOrdered By: Anabella Malave on 10-14-2024 Leukocyte esterase Test strip Ql (U) 25 /ul High Negative [facility] Urine pHOrdered By: Anabella watters on 10-14-2024 pH (U) 7.0 [pH] 5.0 - 8.0 [facility] Urine sediment bacteria coun t by microscopy (number/high power field)Ordered By: Anabella Malave on 10-14-2024 Bacteria LM.HPF (Urine sed) [#/Area] 0 /[HPF] None Seen [facility] Urine specific gravity measu rementOrdered By: Anabella Malave on 10-14-2024 Specific gravity (U) [Rel density] 1.015 1.002-1.030 [facility] Urobilinogen Ql (U)Ordered B y: Anabella Malave on 10-14-2024 Urobilinogen (U) [Mass/Vol] 8 mg/dL High Normal [facility] White blood cell (WBC) count Ordered By: Soren Babcock on 10-14-2024 WBC (Bld) [#/Vol] 11.1 10*3/uL High 4.4-11.0 [facility] White blood cell countOrdere d By: Anabella Malave on 10-14-2024 Urine WBC 0-5 SEEN /hpf 0-5 [facility] 30on 10-13-2024 30 Problem: Pain - [...] and maintained or improved Outcome: Progressing Normal [facility] CBC (HEMOGRAM)on 10-13-2024 Erythrocyte distribution width (RBC) [Ratio] 13.9 % Normal 11.5-15.0 [facility] Comment on above: Performed By: #### L [id number] ####Fence Maker: GYPSY DAY ([id number])[facility])[address] [place] [address] Hematocrit (Bld) [Volume fraction] 28.9 % Low 35.0-47.0 [facility] Comment on above: Performed By: #### L [id number] ####Fence Maker: GYPSY DAY ([id number])[facility])[address] [place] [address] Hemoglobin (Bld) [Mass/Vol] 9.3 g/dL Low 11.7-16.0 [facility] Comment on above: Performed By: #### L [id number] ####Fence Maker: GYPSY DAY ([phone])[facility] ([facility])[address] [place] [address] MCH (RBC) [Entitic mass] 29.5 pg Normal 26.0-34.0 [facility] Comment on above: Performed By: #### L [id number] ####Fence Maker: GYPSY DAY ([id number])[facility])[address] [place] [address] MCHC 32.2 % Normal 30.5-36.0 [facility] Comment on above: Performed By: #### L [id number] ####Fence Maker: GYPSY DAY ([id number])[facility])[address] [place] [address] MCV (RBC) [Entitic vol] 91.7 fL Normal 77.0-99.0 [facility] Comment on above: Performed By: #### L [id number] ####Fence Maker: GYPSY DAY ([id number])[facility])[address] [place] [address] Platelet mean volume (Bld) [Entitic vol] 9.6 fL Normal 9.0-12.7 [facility] Comment on above: Performed By: #### L [id number] ####Fence Maker: GYPSY DAY ([id number])[facility])[address] [place] [address] Platelets (Bld) [#/Vol] 227 10*3/uL Normal 140-440 [facility] Comment on above: Performed By: #### L [id number] ####Fence Maker: GYPSY DAY ([id number])[facility] ([facility])[address] [place] [address] RBC (Bld) [#/Vol] 3.15 10*6/uL Low 3.80-5.20 [facility] Comment on above: Performed By: #### L [id number] ####Fence Maker: GYPSY DAY ([phone])[facility] ([facility])[address] [place] [address] WBC (Bld) [#/Vol] 12.4 10*3/uL High 3.6-10.7 [facility] Comment on above: Performed By: #### L [id number] ####Fence Maker: GYPSY DAY ([id number])[facility])[address] [place] [address] CBC panel Auto (Bld)on 10-13 Erythrocyte distribution width (RBC) [Ratio] 13.9 % 11.5 - 15.0 % [facility] Hematocrit (Bld) [Volume fraction] 28.9 % Low 35.0 - 47.0 % [facility] Hemoglobin (Bld) [Mass/Vol] 9.3 g/dL Low 11.7 - 16.0 g/dL [facility] Interpretation and review of laboratory results Abnormal [facility] MCH (RBC) [Entitic mass] 29.5 pg 26.0 - 34.0 pg [facility] MCHC (RBC) [Mass/Vol] 32.2 % 30.5 - 36.0 % [facility] MCV (RBC) [Entitic vol] 91.7 fL 77.0 - 99.0 fL [facility] Platelet mean volume (Bld) [Entitic vol] 9.6 fL 9.0 - 12.7 fL [facility] Platelets (Bld) [#/Vol] 227 10*3/uL 140 - 440 10*3/uL [facility] RBC (Bld) [#/Vol] 3.15 10*6/uL Low 3.80 - 5.2 0 10*6/uL [facility] WBC (Bld) [#/Vol] 12.4 10*3/uL High 3.6 - 10.7 10*3/uL [facility] COMPREHENSIVE METABOLIC PANE Mahendra 10-13-2024 Albumin [Mass/Vol] 2.8 g/dL Low 3.5-5.0 [facility] Comment on above: Performed By: #### L [id number] ####Fence Maker: GYPSY DAY ([id number])[facility] ([facility])[address] [place] [address] ALP [Catalytic activity/Vol] 49 U/L Normal 40-150 [facility] Comment on above: Performed By: #### L [id number] ####Fence Maker: GYPSY DAY ([id number])[facility] ([facility])[address] [place] [address] ALT [Catalytic activity/Vol] 9 U/L Normal <30 [facility] Comment on above: Performed By: #### L [id number] ####Fence Maker: GYPSY DAY ([id number])[facility] ([facility])[address] [place] [address] Anion gap [Moles/Vol] 4 mmol/L Normal 3-13 [facility] Comment on above: Performed By: #### L [id number] ####Fence Maker: GYPSY DAY ([id number])[facility] ([facility])[address] [place] [address] [place] AST [Catalytic activity/Vol] 14 U/L Normal <34 [facility] Comment on above: Performed By: #### L [id number] ####Fence Maker: GYPSY DAY ([id number])[facility] ([facility])[address] [place] [address] Bilirubin [Mass/Vol] 0.2 mg/dL Normal <1.2 [facility] Comment on above: Performed By: #### L [id number] ####Fence Maker: GYPSY DAY ([id number])[facility])[address] [place] [address] Calcium [Mass/Vol] 7.9 mg/dL Low 8.4-10.2 [facility] Comment on above: Performed By: #### L [id number] ####Fence Maker: GYPSY DAY ([id number])[facility] ([facility])[address] [place] [address] Chloride [Moles/Vol] 110 mmol/L High 98-107 [facility] Comment on above: Performed By: #### L [id number] ####Fence Maker: GYPSY DAY ([id number])[facility] ([facility])[address] [place] [address] CO2 [Moles/Vol] 24 mmol/L Normal 22-29 [facility] Comment on above: Performed By: #### L [id number] ####Fence Maker: GYPSY DAY ([id number])[facility] ([facility])[address] [place] [address] Creatinine [Mass/Vol] 0.60 mg/dL Normal 0.57-1.11 [facility] Comment on above: Performed By: #### L [id number] ####Fence Maker: GYPSY DAY ([id number])[facility])[address] [place] [address] GLOMERULAR FILTRATION RATE ML/MIN/1.73 SQ M.PREDICTED >90.0 Normal >60.0 [facility] Comment on above: Result Comment: Calc ulation based on the Chronic Kidney Disease Epidemiology Collaboration (CKD-EPI) equation refit without adjustment for race Performed By: #### L [id number] ####Fence Maker: GYPSY DAY ([id number])[facility] ([facility])[address] [place] [address] Glucose [Mass/Vol] 96 mg/dL Normal 74-100 [facility] Comment on above: Performed By: #### L [id number] ####Fence Maker: GYPSY DAY ([id number])[facility] ([facility])[address] [place] [address] Potassium [Moles/Vol] 3.8 mmol/L Normal 3.5-5.1 [facility] Comment on above: Result Comment: [facility] potassium values may be up to 0.5 mmol/L lower than serum values. Performed By: #### L [id number] ####Fence Maker: GYPSY DAY ([id number])[facility] ([facility])[address] [place] [address] Protein [Mass/Vol] 4.9 g/dL Low 6.4-8.3 [facility] Comment on above: Performed By: #### L [id number] ####Fence Maker: GYPSY DAY ([id number])[facility] ([facility])[address] [place] [address] Sodium [Moles/Vol] 138 mmol/L Normal 136-145 [facility] Comment on above: Performed By: #### L [id number] ####Fence Maker: GYPSY DAY ([id number])[facility] ([facility])[address] [place] [address] Urea nitrogen [Mass/Vol] 9 mg/dL Normal 8-21 [facility] Comment on above: Performed By: #### L [id number] ####Fence Maker: GYPSY DAY ([id number])[facility])[address] [place] [address] Comprehensive metabolic 1998 panelon 10-13-2024 Albumin [Mass/Vol] 2.8 g/dL Low 3.5 - 5.0 g/dL [facility] ALP [Catalytic activity/Vol] 49 U/L 40 - 150 U/L [facility] ALT [Catalytic activity/Vol] 9 U/L NINF - 30 U/L [facility] Anion gap [Moles/Vol] 4 mmol/L 3 - 13 mmol/L [facility] AST [Catalytic activity/Vol] 14 U/L NINF - 34 U/L [facility] Bilirubin [Mass/Vol] 0.2 mg/dL NINF - 1.2 mg/dL [facility] Calcium [Mass/Vol] 7.9 mg/dL Low 8.4 - 10. 2 mg/dL [facility] Chloride [Moles/Vol] 110 mmol/L High 98 - 10 7 mmol/L [facility] CO2 [Moles/Vol] 24 mmol/L 22 - 29 mmol/L [facility] Creatinine [Mass/Vol] 0.6 mg/dL 0.57 - 1.11 mg/dL [facility] GFR/1.73 sq M.predicted (S/P/Bld) [Vol rate/Area] - PINF [facility] Comment on above: Calculation based on the Chronic Kidney Disease Epidemiology Collaboration (CKD-EPI) equation refit without adjustment for race Glucose [Mass/Vol] 96 mg/dL 74 - 100 mg/dL [facility] Interpretation and review of laboratory results Abnormal [facility] Potassium [Moles/Vol] 3.8 mmol/L 3.5 - 5.1 mmol/L [facility] Comment on above: Plasma potassium arsen ues may be up to 0.5 mmol/L lower than serum values. Protein [Mass/Vol] 4.9 g/dL Low 6.4 - 8.3 g/dL [facility] Sodium [Moles/Vol] 138 mmol/L 136 - 145 mmol/L [facility] Urea nitrogen [Mass/Vol] 9 mg/dL 8 - 21 mg/dL [facility] Guidance for paracentesis of Peritoneumon 10-13-2024 Insufficient fluid f or safe paracentesis. Report Dictated on Electronically Signed By: Yola Montiel MD Electronically Signed Date/Time: 10/13/2024 3:24 PM [facility] Patient Name: JOSE GAMEZ [...] The procedure was terminated at this time. [facility] Keely Montiel MD - 10/13/2024 [...] Electronically Signed Date/Time: 10/13/2024 3:24 PM EDT [facility] Radiology Study observation (narrative) [facility] Guidance for paracentesis of PeritoneumOrdered By: Keely Montiel on 10-13-2024 [facility] [employer] Work Phone: Progress Noteon 10-13-2024 Progress Note ---- -------- Attestation signed by Gypsy Pelayo MD at 10/13/2024 8:34 AM Hospital Care (Independent): I independently saw and evaluated the patient. I agree with the findings and plan of care as documented in the resident's note. Stable labs and patient without complaints except for bloating. Abd mildly, softly distended. Awaiting paracentesis today. 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 Normal [facility] US GUIDED ABDOMINAL PARACENT ESISon 10-13-2024 [...] Signed Date/Time: 10/13/2024 3:24 PM EDT Normal [facility] 30on 10-12-2024 30 Problem: Pain - [...] and maintained or improved Outcome: Progressing Normal [facility] CBC (HEMOGRAM)on 10-12-2024 Erythrocyte distribution width (RBC) [Ratio] 13.2 % Normal 11.5-15.0 [facility] Comment on above: Performed By: #### L [id number] ####Fence Maker: GYPSY DAY ([id number])[facility])[address] [place] [address] Hematocrit (Bld) [Volume fraction] 30.9 % Low 35.0-47.0 [facility] Comment on above: Performed By: #### L [id number] ####Fence Maker: GYPSY DAY ([id number])[facility])[address] [place] [address] Hemoglobin (Bld) [Mass/Vol] 10.1 g/dL Low 11.7-16.0 [facility] Comment on above: Performed By: #### L [id number] ####Fence Maker: GYPSY DAY ([id number])[address] IPF 2 Normal [facility] Comment on above: Performed By: #### L [id number] ####Fence Maker: GYPSY DAY ([id number])[facility])[address] [place] [address] MCH (RBC) [Entitic mass] 29.0 pg Normal 26.0-34.0 [facility] Comment on above: Performed By: #### L [id number] ####Fence Maker: GYPSY DAY ([id number])[address] MCHC 32.7 % Normal 30.5-36.0 [facility] Comment on above: Performed By: #### L [id number] ####Fence Maker: GYPSY DAY ([id number])[address] MCV (RBC) [Entitic vol] 88.8 fL Normal 77.0-99.0 [facility] Comment on above: Performed By: #### L [id number] ####Fence Maker: GYPSY DAY ([id number])[facility] ([facility])[address] [place] [address] Platelet mean volume (Bld) [Entitic vol] 9.5 fL Normal 9.0-12.7 [facility] Comment on above: Performed By: #### L [id number] ####Fence Maker: GYPSY DAY ([id number])[facility])[address] [place] [address] Platelets (Bld) [#/Vol] 292 10*3/uL Normal 140-440 [facility] Comment on above: Performed By: #### L [id number] ####Fence Maker: GYPSY DAY ([id number])[facility])[address] [place] [address] RBC (Bld) [#/Vol] 3.48 10*6/uL Low 3.80-5.20 [facility] Comment on above: Performed By: #### L [id number] ####Fence Maker: GYPSY DAY ([id number])[facility] ([facility])[address] [place] [address] WBC (Bld) [#/Vol] 19.6 10*3/uL High 3.6-10.7 [facility] Comment on above: Performed By: #### L [id number] ####Fence Maker: GYPSY DAY ([id number])[facility])[address] [place] [address] CBC panel Auto (Bld)on 10-12 Erythrocyte distribution width (RBC) [Ratio] 13.2 % 11.5 - 15.0 % [facility] Hematocrit (Bld) [Volume fraction] 30.9 % Low 35.0 - 47.0 % [facility] Hemoglobin (Bld) [Mass/Vol] 10.1 g/dL Low 11.7 - 16.0 g/dL [facility] Interpretation and review of laboratory results Abnormal [facility] IPF 2 [facility] MCH (RBC) [Entitic mass] 29 pg 26.0 - 34.0 pg [facility] MCHC (RBC) [Mass/Vol] 32.7 % 30.5 - 36.0 % [facility] MCV (RBC) [Entitic vol] 88.8 fL 77.0 - 99.0 fL [facility] Platelet mean volume (Bld) [Entitic vol] 9.5 fL 9.0 - 12.7 fL [facility] Platelets (Bld) [#/Vol] 292 10*3/uL 140 - 440 10*3/uL [facility] RBC (Bld) [#/Vol] 3.48 10*6/uL Low 3.80 - 5.2 0 10*6/uL [facility] WBC (Bld) [#/Vol] 19.6 10*3/uL High 3.6 - 10.7 10*3/uL [facility] COMPREHENSIVE METABOLIC PANE Mahendra 10-12-2024 Albumin [Mass/Vol] 3.2 g/dL Low 3.5-5.0 [facility] Comment on above: Performed By: #### L [id number] #### Fence Maker: GYPSY DAY ([id number]) [facility]) [address] [place] [address] ALP [Catalytic activity/Vol] 54 U/L Normal 40-150 [facility] Comment on above: Performed By: #### L [id number] #### Fence Maker: GYPSY DAY ([id number]) [facility]) [address] [place] [address] ALT [Catalytic activity/Vol] 11 U/L Normal <30 [facility] Comment on above: Performed By: #### L [id number] #### Fence Maker: GYPSY DAY ([id number]) [facility] ([facility]) [address] [place] [address] Anion gap [Moles/Vol] 5 mmol/L Normal 3-13 [facility] Comment on above: Performed By: #### L [id number] #### Fence Maker: GYPSY DAY ([id number]) [facility]) [address] [place] [address] AST [Catalytic activity/Vol] 16 U/L Normal <34 [facility] Comment on above: Performed By: #### L [id number] #### Fence Maker: GYPSY DAY ([id number]) [facility] ([facility]) [address] [place] [address] Bilirubin [Mass/Vol] 0.2 mg/dL Normal <1.2 [facility] Comment on above: Performed By: #### L [id number] #### Fence Maker: GYPSY DAY ([phone]) [facility] ([facility]) [address] [place] [address] Calcium [Mass/Vol] 8.2 mg/dL Low 8.4-10.2 [facility] Comment on above: Performed By: #### L [id number] #### Fence Maker: GYPSY DAY ([id number]) [facility] ([facility]) [address] [place] [address] Chloride [Moles/Vol] 104 mmol/L Normal 98-107 [facility] Comment on above: Performed By: #### L [id number] #### Fence Maker: GYPSY DAY ([id number]) [facility] ([facility]) [address] [place] [address] CO2 [Moles/Vol] 24 mmol/L Normal 22-29 [facility] Comment on above: Performed By: #### L [id number] #### Fence Maker: GYPSY DAY ([phone]) [facility] ([facility]) [address] [place] [address] Creatinine [Mass/Vol] 0.56 mg/dL Low 0.57-1.11 [facility] Comment on above: Performed By: #### L [id number] #### Fence Maker: GYPSY DAY ([id number]) [facility] ([facility]) [address] [place] [address] GLOMERULAR FILTRATION RATE ML/MIN/1.73 SQ M.PREDICTED >90.0 Normal >60.0 [facility] Comment on above: Result Comment: Calc ulation based on the Chronic Kidney Disease Epidemiology Collaboration (CKD-EPI) equation refit without adjustment for race Performed By: #### L [id number] #### Fence Maker: GYPSY DAY ([phone]) [facility] ([facility]) [address] [place] [address] Glucose [Mass/Vol] 109 mg/dL High 74-100 [facility] Comment on above: Performed By: #### L [id number] #### Fence Maker: GYPSY DAY ([id number]) [facility] ([facility]) [address] [place] [address] Potassium [Moles/Vol] 3.6 mmol/L Normal 3.5-5.1 [facility] Comment on above: Result Comment: [facility] potassium values may be up to 0.5 mmol/L lower than serum values. Performed By: #### L [id number] #### Fence Maker: GYPSY DAY ([id number]) [facility] ([facility]) [address] [place] [address] Protein [Mass/Vol] 5.4 g/dL Low 6.4-8.3 [facility] Comment on above: Performed By: #### L [id number] #### Fence Maker: GYPSY DAY ([id number]) [facility] ([facility]) [address] [place] [address] Sodium [Moles/Vol] 133 mmol/L Low 136-145 [facility] Comment on above: Performed By: #### L [id number] #### Fence Maker: GYPSY DAY ([phone]) [facility]) [address] [place] [address] Urea nitrogen [Mass/Vol] 9 mg/dL Normal 8-21 [facility] Comment on above: Performed By: #### L [id number] #### Fence Maker: GYPSY DAY ([id number]) [facility] ([facility]) [address] [place] [address] Comprehensive metabolic 1998 panelon 10-12-2024 Albumin [Mass/Vol] 3.2 g/dL Low 3.5 - 5.0 g/dL [facility] ALP [Catalytic activity/Vol] 54 U/L 40 - 150 U/L [facility] ALT [Catalytic activity/Vol] 11 U/L NINF - 30 U/L [facility] Anion gap [Moles/Vol] 5 mmol/L 3 - 13 mmol/L [facility] AST [Catalytic activity/Vol] 16 U/L NINF - 34 U/L [facility] Bilirubin [Mass/Vol] 0.2 mg/dL NINF - 1.2 mg/dL [facility] Calcium [Mass/Vol] 8.2 mg/dL Low 8.4 - 10. 2 mg/dL [facility] Chloride [Moles/Vol] 104 mmol/L 98 - 10 7 mmol/L [facility] CO2 [Moles/Vol] 24 mmol/L 22 - 29 mmol/L [facility] Creatinine [Mass/Vol] 0.56 mg/dL Low 0.57 - 1.11 mg/dL [facility] GFR/1.73 sq M.predicted (S/P/Bld) [Vol rate/Area] - PINF [facility] Comment on above: Calculation based on the Chronic Kidney Disease Epidemiology Collaboration (CKD-EPI) equation refit without adjustment for race Glucose [Mass/Vol] 109 mg/dL High 74 - 100 mg/dL [facility] Interpretation and review of laboratory results Abnormal [facility] Potassium [Moles/Vol] 3.6 mmol/L 3.5 - 5.1 mmol/L [facility] Comment on above: Plasma potassium arsen ues may be up to 0.5 mmol/L lower than serum values. Protein [Mass/Vol] 5.4 g/dL Low 6.4 - 8.3 g/dL [facility] Sodium [Moles/Vol] 133 mmol/L Low 136 - 145 mmol/L [facility] Urea nitrogen [Mass/Vol] 9 mg/dL 8 - 21 mg/dL [facility] Laboratory - Coagulationon 0 10-12-2024 aPTT Coag (PPP) [Time] 26.3 s 20.0 - 30.5 s [facility] INR Coag (PPP) [Relative time] 0.9 {INR} 0.9 - 1.1 [facility] Comment on above: Recommended Anticoag ulant [...] 10.1 s 9.0 - 12.0 s [facility] No Panel Informationon 10-12 Interpretation and review of laboratory results Normal [facility] PROTIME AND APTTon aPTT Coag (Bld) [Time] 26.3 s Normal 20.0-30.5 [facility] Comment on above: Performed By: #### L [id number] ####Fence Maker: GYPSY DAY ([id number])[facility])[address] [place] [address] INR Coag (PPP) [Relative time] 0.9 {INR} Normal 0.9-1.1 [facility] Comment on above: Result Comment: Dwight [...] prevent Myocardial Infarction Performed By: #### L [id number] ####Fence Maker: GYPSY DAY ([phone])[facility])[address] [place] [address] PT Coag (PPP) [Time] 10.1 s Normal 9.0-12.0 [facility] Comment on above: Performed By: #### L [id number] ####Fence Maker: GYPSY DAY ([id number])[facility])[address] [place] [address] Absolute neutrophil countOrd ered By: Fern Marroquin on 10-11-2024 Neutrophils (Bld) [#/Vol] 19.6 10*3/uL High 2.0-7.7 [facility] Anion gap in Serum or Plasma Ordered By: Fern Marroquin on 10-11-2024 Anion gap [Moles/Vol] 12 mmol/L 5-15 [facility] BUN/creatinine ratioOrdered By: Remus Ungbraulio on 10-11-2024 Urea nitrogen/Creatinine [Mass ratio] 17.7 mg/mg 10- [facility] Bacteria LM.HPF (Urine sed) [#/Area]Ordered By: Remus Ungur on 10-11-2024 Urine Bacteria RARE /hpf None Seen [facility] Basic Metabolic Profile (BMP )on 10-11-2024 BUN/CRE 17.7 RATIO Normal - [facility] Comment on above: Performed By: #### L 500.2500, L100.0100, L700.6800 #### [facility] [address] [place], [address] Calcium [Mass/Vol] 9.1 mg/dL Normal 7.6-11.0 [facility] Comment on above: Performed By: #### L 500.2500, L100.0100, L700.6800 #### [facility] [address] [place], [address] Chloride [Moles/Vol] 102 mmol/L Normal 98-108 [facility] Comment on above: Performed By: #### L 500.2500, L100.0100, [id number] #### [facility] [address] [place], [address] CO2 [Moles/Vol] 21.9 mmol/L Normal 21.0-32.0 [facility] Comment on above: Performed By: #### L 500.2500, L100.0100, [id number] #### [facility] [address] [place], [address] Creatinine [Mass/Vol] 0.58 mg/dL Low 0.70-1.20 [facility] Comment on above: Performed By: #### L 500.2500, L100.0100, [id number] #### [facility] [address] [place], [address] ECRCL 147.18 ml/min Normal 50-250 [facility] [facility] Comment on above: Performed By: #### L 500.2500, L100.0100, L700.6800 #### [facility] [address] [place], [address] GAP 12 Normal 5-15 [facility] Comment on above: Performed By: #### L 500.2500, L100.0100, L700.6800 #### [facility] [address] [place], [address] GFR/1.73 sq M.predicted among non-blacks MDRD (S/P/Bld) [Vol rate/Area] 127 mL/min/{1.73_m2} Normal >60 [facility] Comment on above: Result Comment: mL/m in/1.73m2 CKD-EPI Creatinine Equation (2020) Performed By: #### L 500.2500, L100.0100, L700.6800 #### [facility] [address] [place], [address] Glucose [Mass/Vol] 139 mg/dL High 70-99 [facility] Comment on above: Performed By: #### L 500.2500, L100.0100, L700.6800 #### [facility] [address] [place], [address] Potassium [Moles/Vol] 4.1 mmol/L Normal 3.3-5.1 [facility] Comment on above: Performed By: #### L 500.2500, L100.0100, L700.6800 #### [facility] [address] [place], [address] Sodium [Moles/Vol] 136 mmol/L Normal 133-145 [facility] Comment on above: Performed By: #### L 500.2500, L100.0100, L700.6800 #### [facility] [address] [place], [address] Urea nitrogen [Mass/Vol] 10 mg/dL Normal 4-19 [facility] Comment on above: Performed By: #### L 500.2500, L100.0100, L700.6800 #### [facility] [address] [place], [address] Basophil percentageOrdered B y: Fern Lopez on 10-11-2024 Basophils/100 WBC (Bld) 0.1 % 0-1 [facility] Beta HCG ( test) Ql Ordered By: Fern Lopez on 10-11-2024 Serum Test, Qualitative Negative [facility] Bilirubin Test strip Ql (U)O rdered By: Fern Zazuetabraulio on 10-11-2024 Bilirubin Ql (U) 1 mg/dL High Negative [facility] Comment on above: COLOR OF URINE MAY A FFECT DIPSTICK RESULTS. CBC W/Diff, Automatedon 10-01 Absolute Lymph 1.84 X10 3/uL Normal 0.83-4.51 [facility] Comment on above: Performed By: #### L 500.2500, L100.0100, L700.6800 #### [facility] [address] [place], [address] Absolute Neut 19.6 X10 3/uL High 2.0-7.7 [facility] Comment on above: Performed By: #### L 500.2500, L100.0100, L700.6800 #### [facility] [address] [place], [address] Basophils/100 WBC (Bld) 0.1 % Normal 0-1 [facility] Comment on above: Performed By: #### L 500.2500, L100.0100, L700.6800 #### [facility] [address] [place], [address] Eosinophils/100 WBC (Bld) 0.0 % Normal 0-5 [facility] Comment on above: Performed By: #### L 500.2500, L100.0100, L700.6800 #### [facility] [address] [place], [address] Erythrocyte distribution width (RBC) [Ratio] 12.9 % Normal 11.6-14.6 [facility] Comment on above: Performed By: #### L 500.2500, L100.0100, L700.6800 #### [facility] [address] [place], [address] Hematocrit (Bld) [Volume fraction] 34.0 % Low 37-47 [facility] Comment on above: Performed By: #### L 500.2500, L100.0100, L700.6800 #### [facility] [address] [place], [address] Hemoglobin (Bld) [Mass/Vol] 11.6 g/dL Low 12.0-15.0 [facility] Comment on above: Performed By: #### L 500.2500, L100.0100, L700.6800 #### [facility] [address] [place], [address] IG% 0.600 Normal 0.0-0.9 [facility] Comment on above: Result Comment: IG% - Immature Granulocytes (promyelocytes, myelocytes and metamyelocytes) > 1% indicates that a LEFT SHIFT is Present. Performed By: #### L 500.2500, L100.0100, L700.6800 #### [facility] [address] [place], [address] Lymphocytes/100 WBC (Bld) 8.2 % Low 19-41 [facility] Comment on above: Performed By: #### L 500.2500, L100.0100, L700.6800 #### [facility] [address] [place], [address] MCH (RBC) [Entitic mass] 30.1 pg Normal 27.0-32.0 [facility] Comment on above: Performed By: #### L 500.2500, L100.0100, L700.6800 #### [facility] [address] [place], [address] MCHC (RBC) [Mass/Vol] 34.1 g/dL Normal 32-36 [facility] Comment on above: Performed By: #### L 500.2500, L100.0100, L700.6800 #### [facility] [address] [place], [address] MCV (RBC) [Entitic vol] 88.3 fL Normal 81-99 [facility] Comment on above: Performed By: #### L 500.2500, L100.0100, L700.6800 #### [facility] [address] [place], [address] Monocytes/100 WBC (Bld) 4.0 % Normal 0-10 [facility] Comment on above: Performed By: #### L 500.2500, L100.0100, L700.6800 #### [facility] [address] [place], [address] Neutrophils/100 WBC (Bld) 87.1 % High 47-70 [facility] Comment on above: Performed By: #### L 500.2500, L100.0100, L700.6800 #### [facility] [address] [place], [address] Nucleated RBC (Bld) [#/Vol] 0 10*3/uL Normal 0-5 [facility] Comment on above: Performed By: #### L 500.2500, L100.0100, L700.6800 #### [facility] [address] [place], [address] Platelet mean volume (Bld) [Entitic vol] 9.2 fL Normal 6.2-12.0 [facility] Comment on above: Performed By: #### L 500.2500, L100.0100, L700.6800 #### [facility] [address] [place], [address] Platelets (Bld) [#/Vol] 321 10*3/uL Normal 150-450 [facility] Comment on above: Performed By: #### L 500.2500, L100.0100, L700.6800 #### [facility] [address] [place], [address] RBC (Bld) [#/Vol] 3.85 10*6/uL Low 4.2-5.4 [facility] Comment on above: Performed By: #### L 500.2500, L100.0100, L700.6800 #### [facility] [address] [place], [address] RDW SD 41.7 fl Normal 35.1-43.9 [facility] Comment on above: Performed By: #### L 500.2500, L100.0100, L700.6800 #### [facility] [address] [place], [address] WBC (Bld) [#/Vol] 22.5 10*3/uL High 4.4-11.0 [facility] Comment on above: Performed By: #### L 500.2500, L100.0100, L700.6800 #### [facility] [address] [place], [address] CTA Chst, Abd, Pel W and/or WOon 10-11-2024 CTA Chst, Abd, Pel W and/or WO [facility] [address] [place] [address] CTA Chst, Abd, Pel W and/or WO MR#: [id number] Acct: [id number] Name: JOSE EDWARD Rep #: [id number] : 1995 F 29 From: Daisha Hutchins nd, MD PCP: CHERYL Samano Status: REG ER Study: CTA Chst, Abd, Pel W and/or WO Date of Exam: 0 10/11/24 Exam# [id number] Ordering Dr: Fern Marroquin DO PROCEDURE: CTA [...] compatible with ovarian hyperstimulation syndrome. Reading Location: [facility] CC: Dr. Fern Marroquin DO; CHERYL Samano Bank President: Signed Normal [facility] Carbon dioxide, total [Moles /volume] in Central venous bloodOrdered By: Fern Marroquin on 10-11-2024 CO2 [Moles/Vol] 21.9 mmol/L 21.0-32.0 [facility] Chloride assayOrdered By: Delma Marroquin on 10-11-2024 Chloride [Moles/Vol] 102 mmol/L 98-108 [facility] Emergency Department Summary on 10-11-2024 Emergency Department Summary [facility] Medical Records Department [address] [place] [address] Emergency Department Summary 10/11/24 MR#: [id number] Acct: [id number] Name: JOSE EDWARD Rep #: [id number] : 1995 29 From: Fern Marroquin DO PCP: CHERYL Samano Status:REG ER Location: ED HPI History of Present Illness Chief Complaint: Shortness of Breath Detail of Chief Complaint: Shortness of breath and abdominal pain Informant: patient Narrative Narrative: Patient presents to the emergency department complaint shortness of breath and abdominal pain that started this morning. Patient states that she had driven to [facility] this morning to have egg [...] history of PE or DVT [facility] Medical History Abnormal uterine bleeding Conceived by [...] ea 02/28/24 Unknown Rx (FreeStyle Lexi 2 Thorofare) flash glucose sensor (FreeStyle #1 ea 02/28/24 Unknown Rx Lexi 2 Sensor kit) PNV no.151-iron 27 mg-folic 800 1 cap PO DAILY 10/11/24 Unknown Hi story mcg-omega3 260 [id number] capsule ( Multi-DHA (with vitamin K)) cabergoline [...] Diabetes Uncle Diabetes Grandmother Diabetes Surgical History Daisy teeth extracted History of hysteroscopy Status post laparoscopy S/P D C (status post dilation and curettage) Hx of lumpectomy History of tonsillectomy and adenoidectomy Social History adopted: No household members: spouse number of children: 0 current occupational status: employed current occupation: [employer] current occupational exposures/hazards: No pets and animals: Yes (Avoid litterbox) pets and animals: cat(s) and dog(s) history of recent travel: Yes ([facility]) out of state: Yes out of country: No sexually active: Yes Smoking Status: Former smoker Electronic Cigarette Use: with nicotine alcohol intake: never substance use type: does not use well-balanced diet: daily or most days caffeine: No eating out: 1-3 times/week during the past year weight has: increased > 10 lbs what type of physical activity do you participate in: none jessica/gnosticism: Spiritism seatbelt use: always do you feel safe at home: Yes additional social history: - Rene- Chuck ROS ROS ED Review of Systems ROS Unobtainable: other Constitutional Constitutional ED: Reports lethargy; Denies chills, fever(s), sweats or weight loss Eyes Eyes: Denie (more content not included)... Normal [facility] Eosinophil percentageOrdered By: Fern Marroquin on 10-11-2024 Eosinophils/100 WBC (Bld) 0.0 % 0-5 [facility] Epithelial cells.squamous LM Ql (Urine sed)Ordered By: Fern Marroquin on 10-11-2024 Epithelial cells.squamous LM.HPF (Urine sed) [#/Area] 0 /[HPF] 5-10 [facility] Erythrocyte distribution wid th (RBC) [Ratio]Ordered By: Fern Marroquin on 10-11-2024 Erythrocyte distribution width (RBC) [Entitic vol] 41.7 fL 35.1-43.9 [facility] Erythrocyte distribution wid th ratioOrdered By: Fern Marroquin on 10-11-2024 Erythrocyte distribution width (RBC) [Ratio] 12.9 % 11.6-14.6 [facility] Estimation of creatinine rory aranceOrdered By: Fern Marroquin on 10-11-2024 Estimated Creatinine Clearance Calc 147.18 ml/min 50-250 [facility] GFR/1.73 sq M.predicted checo g non-blacks MDRD (S/P/Bld) [Vol rate/Area]Ordered By: Fern Marroquin on 10-11-2024 Estimated GFR (MDRD) Non-Af Amer 127 >60 [facility] Comment on above: mL/min/1.73m2 CKD-EP I Creatinine Equation (2020) Glucose Ql (U)Ordered By: Delma Marroquin on 10-11-2024 Urine Glucose (UA) Normal mg/dl Normal [facility] Hematocrit Auto (Bld) [Volum e fraction]Ordered By: Fern Marroquin on 10-11-2024 Hematocrit (Bld) [Volume fraction] 34.0 % Low 37-47 [facility] Hemoglobin measurementOrdere d By: Fern Marroquin on 10-11-2024 Hemoglobin (Bld) [Mass/Vol] 11.6 g/dL Low 12.0-15.0 [facility] Immature granulocytes/100 WB C Auto (Bld)Ordered By: Fern Marroquin 10-11-2024 Immature granulocytes/100 WBC (Bld) 0.600 % 0.0-0.9 [facility] Comment on above: IG% - Immature Granu locytes (promyelocytes, myelocytes and metamyelocytes) > 1% indicates that a LEFT SHIFT is Present. Ketones Test strip Ql (U)Ord ered By: Fern Marroquin on 10-11-2024 Ketones Ql (U) Negative Negative [facility] Lymphocytes Auto (Unsp spec) [#/Vol]Ordered By: Fern Marroquin on 10-11-2024 Lymphocytes (Bld) [#/Vol] 1.84 10*3/uL 0.83-4.51 [facility] Lymphocytes/100 WBC Auto (Un sp spec)Ordered By: Fern Marroquin on 10-11-2024 Lymphocytes/100 WBC (Bld) 8.2 % Low 19-41 [facility] MCV (mean corpuscular volume ) determinationOrdered By: Fern Marroquin on 10-11-2024 MCV (RBC) [Entitic vol] 88.3 fL 81-99 [facility] Mean corpuscular hemoglobin (MCH) determinationOrdered By: Fern Marroquin on 10-11-2024 MCH (RBC) [Entitic mass] 30.1 pg 27.0-32.0 [facility] Mean corpuscular hemoglobin concentration (MCHC) determinationOrdered By: Fern Marroquin on 10-11-2024 MCHC (RBC) [Mass/Vol] 34.1 g/dL 32-36 [facility] Mean platelet volume determi nationOrdered By: Fern Marroquin on 10-11-2024 Platelet mean volume (Bld) [Entitic vol] 9.2 fL 6.2-12.0 [facility] Microscopic analysis of urin e for red blood cells (RBC)Ordered By: Fern Marroquin on 10-11-2024 Urine RBC 0 SEEN /hpf 0-5 [facility] Monocyte percentageOrdered B y: Fern Marroquin on 10-11-2024 Monocytes/100 WBC (Bld) 4.0 % 0-10 [facility] Mucus LM Ql (Urine sed)Order ed By: Fern Marroquin on 10-11-2024 Mucus Ql (Urine sed) 0 SEEN /hpf [facility] Neutrophil percentageOrdered By: Fern Marroquin on 10-11-2024 Neutrophils/100 WBC (Bld) 87.1 % High 47-70 [facility] Nitrite Test strip Ql (U)Ord ered By: Fern Marroquin on 10-11-2024 Nitrite Ql (U) Positive High Negative [facility] Nucleated red blood cell per centageOrdered By: Fern Marroquin on 10-11-2024 Nucleated RBC/100 WBC (Bld) [Ratio] 0 % 0-5 [facility] Platelet countOrdered By: Delma Marroquin on 10-11-2024 Platelets (Bld) [#/Vol] 321 10*3/uL 150-450 [facility] Potassium (Unsp spec) [Mass/ Vol]Ordered By: Fern Marroquin on 10-11-2024 Potassium [Moles/Vol] 4.1 mmol/L 3.3-5.1 [facility] ,Serum,hCG Quali.on 10-11-2024 HCG, SERUM QUAL Negative Normal [facility] Comment on above: Performed By: #### L 500.2500, L100.0100, L700.6800 #### [facility] [address] [place], [address] Protein Test strip Ql (U)Ord ered By: Fern Marroquin on 10-11-2024 Protein Ql (U) 30 mg/dl High Negative [facility] RBC Auto (Bld) [#/Vol]Ordere d By: Fern Marroquin on 10-11-2024 RBC (Bld) [#/Vol] 3.85 10*6/uL Low 4.2-5.4 [facility] Serum creatinine measurement (mass/volume)Ordered By: Fern Marroquin on 10-11-2024 Creatinine [Mass/Vol] 0.58 mg/dL Low 0.70-1.20 [facility] Serum glucose measurement (m ass/volume)Ordered By: Fern Marroquin on 10-11-2024 Glucose [Mass/Vol] 139 mg/dL High 70-99 [facility] Serum or plasma calcium shannon urement (mass/volume)Ordered By: Fern Marroquin on 10-11-2024 Calcium [Mass/Vol] 9.1 mg/dL 7.6-11.0 [facility] Serum or plasma urea nitroge n measurement (mass/volume)Ordered By: Fern Marroquin on 10-11-2024 Urea nitrogen [Mass/Vol] 10 mg/dL 4-19 [facility] Sodium levelOrdered By: Juliann Marroquin on 10-11-2024 Sodium [Moles/Vol] 136 mmol/L 133-145 [facility] Urinalysis, Completeon 10-11 BACTERIA RARE Normal None Seen [facility] Comment on above: Order Comment: EDWARD CTOR TO SPECIFY Performed By: #### L 500.2500, L100.0100, L700.6800 #### [facility] [address] [place], [address] EPI,SQUAMOUS 0 SEEN Normal 5-10 [facility] Comment on above: Order Comment: EDWARD CTOR TO SPECIFY Performed By: #### L 500.2500, L100.0100, L700.6800 #### [facility] [address] [place], [address] Mucus Ql (Urine sed) 0 SEEN Normal [facility] Comment on above: Order Comment: EDWARD CTOR TO SPECIFY Performed By: #### L 500.2500, L100.0100, L700.6800 #### [facility] [address] [place], [address] RBC 0 SEEN Normal 0-5 [facility] Comment on above: Order Comment: EDWARD CTOR TO SPECIFY Performed By: #### L 500.2500, L100.0100, L700.6800 #### [facility] [address] [place], [address] WBC 0 SEEN Normal 0-5 [facility] Comment on above: Order Comment: EDWARD CTOR TO SPECIFY Performed By: #### L 500.2500, L100.0100, L700.6800 #### [facility] [address] [place], [address] Urine blood detectionOrdered By: Cyndius Lopez on 10-11-2024 Urine Occult Blood 150 /ul High Negative [facility] Urine clarityOrdered By: Cyndi Marroquin on 10-11-2024 Clarity (U) Clear Clear [facility] Urine color determinationOrd ered By: Fern Marroquin on 10-11-2024 Color (U) Yellow Yellow [facility] Urine leukocyte esterase det ection by dipstickOrdered By: Fern Marroquin on 10-11-2024 Leukocyte esterase Test strip Ql (U) Negative Negative [facility] Urine pHOrdered By: Fern Winters gur on 10-11-2024 pH (U) 7.0 [pH] 5.0 - 8.0 [facility] Urine specific gravity measu rementOrdered By: Fern Marroquin on 10-11-2024 Specific gravity (U) [Rel density] 1.010 1.002-1.030 [facility] Urobilinogen Ql (U)Ordered B y: Fern Marroquin on 10-11-2024 Urobilinogen (U) [Mass/Vol] 4 mg/dL High Normal [facility] White blood cell (WBC) count Ordered By: Fern Marroquin on 10-11-2024 WBC (Bld) [#/Vol] 22.5 10*3/uL High 4.4-11.0 [facility] White blood cell countOrdere d By: Fern Marroquin on 10-11-2024 Urine WBC 0 SEEN /hpf 0-5 [facility] E2on 10-07-2024 Estradiol Level 1333.35 pg/mL Normal [facility] Comment on above: Result Comment: No te - New Reference Range in effect 20 Adult Female E2 Reference Ranges: Follicular phase 19.5 - 144.2 pg/mL Midcycle 63.9 - 356.7 pg/mL Luteal phase 55.8 - 214.2 pg/mL Post menopausal 0 - 33.2 pg/mL Performed By: #### P LATRICE, E2, LH #### [place] [address] LHon 10-07-2024 LH 3.9 mIU/mL Kevin MILLAN Comment on above: Result Comment: No te - New Reference Range in effect 20 Adult Female LH Reference Ranges: Follicular phase 1.9 - 12.5 mIU/mL Midcycle phase 8.7 - 76.3 mIU/mL Luteal phase 0.5 - 16.9 mIU/mL Post menopausal 5.0 - 55.2 mIU/mL Performed By: #### P LATRICE, E2, LH #### [place] [address] [place] [address] PROGon 10-07-2024 Progesterone Level 0.9 ng/mL Normal [...] By: #### P LATRICE, E2, LH #### [facility] [address] [place] [address] HIV - WCHon 08-20-2024 HIV Non-Reactive Normal Nonreactive [facility] Comment on above: Performed By: #### L 509.4005, L3890.6300, L509.8000, L3400.0005, L3890.6100, L3890.6005 #### [facility] [address] [place], [address] Antimullerian Hormone, Serum on 08-19-2024 AMH, SERUM 6.59 ng/mL Normal . [facility] Comment on above: Result Comment: For assays employing antibodies, the possibility exists for interference by heterophile antibodies in the samples.1 1.Anthony Khan. Interferences in Immunoassays - still a threat. Clin. Chem. 2000; 46: 1302-9357. This test was developed and its performance characteristics determined by [employer]. It has not been cleared or approved by the Food and Drug Administration. Reference Range: Females 26 - 30y: 1.03 - 11.10 Median 4.20 [facility] concentrations of >= 1.06 ng/mL is correlated with a better response to ovarian stimulation, produced more retrievable oocytes and higher odds of live according to Isaaker et al. Fertility and Sterility. 2010: 94:9579-1919. The current AMH test method correlates with [...] By: #### L 500.2500, L100.0100, L700.6800 #### [facility] [address] [place], [place], [address] PROLACTIN 4465on 08-19-2024 PROLACTIN 21.9 ng/mL Normal 4.8-33.4 [facility] Comment on above: Result Comment: Perf ormed at: [facility] [address] [place] [id number] Dye Reel Operator: Mik Jerez MD, Phone: [phone] Performed at: [facility] [id number] Dye Reel Operator: Heri Louis PhD, Phone: [phone] Performed By: #### L 500.2500, L100.0100, L700.6800 #### [facility] [address] [place], [place], [address] L3400.0005on 08-16-2024 V ZOSTER IgG Reactive Normal Non Reactive [facility] Comment on above: Result Comment: Pl ease note reference interval change A Reactive result is considered evidence of immunity to VZV. Reactive indicates that VZV IgG was detected consistent with previous infection and/or vaccination. A Non Reactive result indicates that VZV IgG was not detected suggesting that immunity has not been acquired. Performed at: [facility] [id number] Dye Reel Operator: Heri Louis PhD, Phone: [phone] Performed By: #### L 509.4005, L3890.6300, L509.8000, L3400.0005, L3890.6100, L3890.6005 #### [facility] [address] [place], [address] 44-QT-Wjakhag DOrdered By: Ziggy Villareal on 08-15-2024 Vitamin D 25-Hydroxy 28.5 ng/mL [facility] Comment on above: Vitamin D 25(OH) Sta tus Range Deficiency <20 ng/mL (50nmol/L) Insufficiency 20 - 30 ng/mL (50 - 75 nmol/L) Sufficiency 30 - 100 ng/mL (75 - 250 nmol/L) Toxicity >100 ng/mL (>250 nmol/L) Albumin to globulin ratioOrd ered By: Julianna Villareal on 08-15-2024 Albumin/Globulin [Mass ratio] 1.3 {ratio} 0.9-2.4 [facility] Bilirubin, totalOrdered By: Julianna Villareal on 08-15-2024 Bilirubin [Mass/Vol] 0.50 mg/dL 0.20-1.00 [facility] Comment on above: For patients on eltr ombopag therapy, use of Dimension [place] TBIL is not recommended. Blood urea nitrogen (BUN)/cr eatinine ratioOrdered By: Julianna Villareal on 08-15-2024 Urea nitrogen/Creatinine [Mass ratio] 16.3 mg/mg 10-20 [facility] CBC-Complete Blood Cnt No Di ffon 08-15-2024 Erythrocyte distribution width (RBC) [Ratio] 12.9 % Normal 11.6-14.6 [facility] Comment on above: Performed By: #### L 500.2500, L100.0100, L700.6800 #### [facility] [address] [place], [address] Hematocrit (Bld) [Volume fraction] 44.4 % Normal 37-47 [facility] Comment on above: Performed By: #### L 500.2500, L100.0100, L700.6800 #### [facility] [address] [place], [address] Hemoglobin (Bld) [Mass/Vol] 14.8 g/dL Normal 12.0-15.0 [facility] Comment on above: Performed By: #### L 500.2500, L100.0100, L700.6800 #### [facility] [address] [place], [address] MCH (RBC) [Entitic mass] 29.4 pg Normal 27.0-32.0 [facility] Comment on above: Performed By: #### L 500.2500, L100.0100, L700.6800 #### [facility] [address] [place], [address] MCHC (RBC) [Mass/Vol] 33.3 g/dL Normal 32-36 [facility] Comment on above: Performed By: #### L 500.2500, L100.0100, L700.6800 #### [facility] [address] [place], [address] MCV (RBC) [Entitic vol] 88.3 fL Normal 81-99 [facility] Comment on above: Performed By: #### L 500.2500, L100.0100, L700.6800 #### [facility] [address] [place], [address] Platelet mean volume (Bld) [Entitic vol] 9.7 fL Normal 6.2-12.0 [facility] Comment on above: Performed By: #### L 500.2500, L100.0100, L700.6800 #### [facility] [address] [place], [address] Platelets (Bld) [#/Vol] 304 10*3/uL Normal 150-450 [facility] Comment on above: Performed By: #### L 500.2500, L100.0100, L700.6800 #### [facility] [address] [place], [address] RBC (Bld) [#/Vol] 5.03 10*6/uL Normal 4.2-5.4 [facility] Comment on above: Performed By: #### L 500.2500, L100.0100, L700.6800 #### [facility] [address] [place], [address] RDW SD 41.4 fl Normal 35.1-43.9 [facility] Comment on above: Performed By: #### L 500.2500, L100.0100, L700.6800 #### [facility] [address] [place], [address] WBC (Bld) [#/Vol] 6.2 10*3/uL Normal 4.4-11.0 [facility] Comment on above: Performed By: #### L 500.2500, L100.0100, L700.6800 #### [facility] [address] [place], [address] Carbon dioxide measurementOr dered By: Julianna Villareal on 08-15-2024 CO2 [Moles/Vol] 25.0 mmol/L 21.0-32.0 [facility] Chloride measurementOrdered By: Julianna Villareal on 08-15-2024 Chloride [Moles/Vol] 106 mmol/L 98-107 [facility] Comprehensive Metabolic Prof ilon 08-15-2024 Albumin [Mass/Vol] 4.2 g/dL Normal 3.2-5.0 [facility] Comment on above: Performed By: #### L 500.2500, L100.0100, L700.6800 #### [facility] [address] [place], [address] Albumin/Globulin [Mass ratio] 1.3 {ratio} Normal 0.9-2.4 [facility] Comment on above: Performed By: #### L 500.2500, L100.0100, L700.6800 #### [facility] [address] [place], [address] ALK P 96 U/L Normal 45-117 [facility] Comment on above: Performed By: #### L 500.2500, L100.0100, L700.6800 #### [facility] [address] [place], [address] ALT [Catalytic activity/Vol] 22 U/L Normal 13-56 [facility] Comment on above: Performed By: #### L 500.2500, L100.0100, L700.6800 #### [facility] [address] [place], [address] AST [Catalytic activity/Vol] 15 U/L Normal 15-37 [facility] Comment on above: Performed By: #### L 500.2500, L100.0100, L700.6800 #### [facility] [address] [place], [address] Bilirubin [Mass/Vol] 0.50 mg/dL Normal 0.20-1.00 [facility] Comment on above: Result Comment: For patients on eltrombopag therapy, use of Dimension [place] TBIL is not recommended. Performed By: #### L 500.2500, L100.0100, L700.6800 #### [facility] [address] [place], [address] BUN/CRE 16.3 RATIO Normal 10-20 [facility] Comment on above: Performed By: #### L 500.2500, L100.0100, L700.6800 #### [facility] [address] [place], [address] CA,Total 9.5 mg/dL Normal 8.5-10.1 [facility] Comment on above: Performed By: #### L 500.2500, L100.0100, L700.6800 #### [facility] [address] [place], [address] Chloride [Moles/Vol] 106 mmol/L Normal 98-107 [facility] Comment on above: Performed By: #### L 500.2500, L100.0100, L700.6800 #### [facility] [address] [place], [address] CO2 [Moles/Vol] 25.0 mmol/L Normal 21.0-32.0 [facility] Comment on above: Performed By: #### L 500.2500, L100.0100, L700.6800 #### [facility] [address] [place], [address] Creatinine [Mass/Vol] 0.55 mg/dL Normal 0.55-1.02 [facility] Comment on above: Result Comment: The validity of the calculated GFR GFRAA in patients over 70 years has not been determined. Clinical correlation is essential. Performed By: #### L 500.2500, L100.0100, L700.6800 #### [facility] [address] [place], [address] EST GFR - AA 170 mL/min Normal >60 [facility] Comment on above: Result Comment: Afri can German GFR Calc Performed By: #### L 500.2500, L100.0100, L700.6800 #### [facility] [address] [place], [address] GAP 7 Normal 5-15 [facility] Comment on above: Performed By: #### L 500.2500, L100.0100, L700.6800 #### [facility] [address] [place], [address] GFR/1.73 sq M.predicted among non-blacks MDRD (S/P/Bld) [Vol rate/Area] 140 mL/min/{1.73_m2} Normal >60 [facility] Comment on above: Result Comment: Non- GFR Calc Performed By: #### L 500.2500, L100.0100, L700.6800 #### [facility] [address] [place], [address] Globulin (S) [Mass/Vol] 3.2 g/dL Normal 2.2-4.2 [facility] Comment on above: Performed By: #### L 500.2500, L100.0100, L700.6800 #### [facility] [address] [place], [address] Glucose [Mass/Vol] 98 mg/dL Normal 74-106 [facility] Comment on above: Performed By: #### L 500.2500, L100.0100, L700.6800 #### [facility] [address] [place], [address] Potassium [Moles/Vol] 3.8 mmol/L Normal 3.5-5.1 [facility] Comment on above: Performed By: #### L 500.2500, L100.0100, L700.6800 #### [facility] [address] [place], [address] Sodium [Moles/Vol] 138 mmol/L Normal 136-145 [facility] Comment on above: Performed By: #### L 500.2500, L100.0100, L700.6800 #### [facility] [address] [place], [address] T PROT 7.4 g/dL Normal 6.4-8.2 [facility] Comment on above: Performed By: #### L 500.2500, L100.0100, L700.6800 #### [facility] [address] [place], [address] Urea nitrogen [Mass/Vol] 9 mg/dL Normal 7-18 [facility] Comment on above: Performed By: #### L 500.2500, L100.0100, L700.6800 #### [facility] [address] [place], [address] Erythrocyte distribution wid th (RBC) [Ratio]Ordered By: Julianna Villareal on 08-15-2024 Erythrocyte distribution width (RBC) [Entitic vol] 41.4 fL 35.1-43.9 [facility] Erythrocyte distribution wid th ratioOrdered By: Julianna Villareal on 08-15-2024 Erythrocyte distribution width (RBC) [Ratio] 12.9 % 11.6-14.6 [facility] Estimated glomerular filtrat ion rate (GFR) AmericanOrdered By: Julianna Villareal on 08-15-2024 Estimated GFR (MDRD) Amer 170 mL/min >60 [facility] Comment on above: GFR Calc Flecainide [Mass/Vol]Ordered By: Julianna Villareal on 08-15-2024 Anti-Mullerian Hormone 6.59 ng/mL . [facility] Comment on above: For assays employing antibodies, the possibility exists forinterference by heterophile antibodies in the samples.11.Anthony Richard Interferences in Immunoassays - still a threat. Clin. Chem. 2000; 46: 0782-1090.This test was developed and its performance characteristicsdetermined by [employer]. It has not been cleared or approvedby the Food and Drug Administration.Reference Range:Females 26 - 30y: 1.03 - 11.10Median 4.20AMH concentrations of >= 1.06 ng/mL is correlated with abetter response to ovarian stimulation, produced moreretrievable oocytes and higher odds of live accordingto Stacey et al. Fertility and Sterility. 2010:94:0197-6566. The current AMH test method correlates withthe [...] GFR (MDRD) Non-Af Amer 140 mL/min >60 [facility] Comment on above: Non- GFR Calc Glucose measurementOrdered B y: Julianna Mono on 08-15-2024 Glucose [Mass/Vol] 98 mg/dL 74-106 [facility] HIV 1+2 Ab+HIV1 p24 Ag IA Ql Ordered By: Julianna Villareal on 08-15-2024 HIV (1&2) Antibody Non-Reactive Nonreactive [facility] Hematocrit Auto (Bld) [Volum e fraction]Ordered By: Julianna Villareal on 08-15-2024 Hematocrit (Bld) [Volume fraction] 44.4 % 37-47 [facility] Hemoglobin measurementOrdere d By: Julianna Villareal on 08-15-2024 Hemoglobin (Bld) [Mass/Vol] 14.8 g/dL 12.0-15.0 [facility] Hepatitis B Surface Antigeno n 08-15-2024 HEP B Surf Ag Non-Reactive [facility] Comment on above: Performed By: #### L 509.4005, L3890.6300, L509.8000, L3400.0005, L3890.6100, L3890.6005 #### [facility] [address] [facility] [place], [address] Hepatitis B surface antigen detectionOrdered By: Julianna Villareal on 08-15-2024 Hepatitis B Surface Antigen Non-Reactive Nonreactive [facility] Hepatitis C Antibodyon 08-15 Hepatitis C AB Non-Reactive [facility] Comment on above: Result Comment: Non Reactive: < 0.8 Equivocal: >/= 0.8 to < 1.0 Reactive: >/= 1.0 The CDC requires that a reactive/equivocal HCV antibody result be sent out for confirmation. HCV Quant by PCR testing. Performed By: #### L 509.4005, L3890.6300, L509.8000, L3400.0005, L3890.6100, L3890.6005 #### [facility] [address] [place], [address] Hepatitis C virus antibody a ssayOrdered By: Julianna Villareal on 08-15-2024 Hepatitis C Antibody Non-Reactive Nonreactive [facility] Comment on above: Non Reactive: < 0.8 Equivocal: >/= 0.8 to < 1.0 Reactive: >/= 1.0The [facility] requires that a reactive/equivocal HCV antibody result be sent out for confirmation. HCV Quant by PCR testing. L509.8000on 08-15-2024 Syphilis Abs Non-Reactive Normal [facility] Comment on above: Performed By: #### L 509.4005, L3890.6300, L509.8000, L3400.0005, L3890.6100, L3890.6005 #### [facility] [address] [place], [address] Laboratory - Chemistry and C hemistry - challengeOrdered By: Julianna Villareal on 08-15-2024 AST [Catalytic activity/Vol] 15 U/L 15-37 [facility] MCV (mean corpuscular volume ) determinationOrdered By: Julianna Villareal on 08-15-2024 MCV (RBC) [Entitic vol] 88.3 fL 81-99 [facility] Mean corpuscular hemoglobin (MCH) determinationOrdered By: Julianna Villareal on 08-15-2024 MCH (RBC) [Entitic mass] 29.4 pg 27.0-32.0 [facility] Mean corpuscular hemoglobin concentration (MCHC) determinationOrdered By: Julianna Villareal on 08-15-2024 MCHC (RBC) [Mass/Vol] 33.3 g/dL 32-36 [facility] Mean platelet volume determi nationOrdered By: Julianna Villareal on 08-15-2024 Platelet mean volume (Bld) [Entitic vol] 9.7 fL 6.2-12.0 [facility] Pelvis W/WO Contraston 08-15 Pelvis W/WO Contrast [facility] [address] [place], [place] [id number] Pelvis W/WO Contrast MR#: [id number] Acct: [id number] Name: JOSE EDWARD Rep #: [id number] : 1995 F 28 From: Rekha Sharpe i, DO PCP: CHERYL Samano Status: REG CLI Study: Pelvis W/WO Contrast Date of Exam: 08/15/24 Exam# [id number] Ordering Dr: Julianna Newman DO PROCEDURE: MRI [...] physiologic in this young patient. Reading [facility] Dr. Julianna Newman DO; CHERYL Samano Bank President: Signed Normal [facility] Platelet countOrdered By: Ayan Villareal on 08-15-2024 Platelets (Bld) [#/Vol] 304 10*3/uL 150-450 [facility] Potassium measurementOrdered By: Julianna Villareal on 08-15-2024 Potassium [Moles/Vol] 3.8 mmol/L 3.5-5.1 [facility] Prolactin [Mass/Vol]Ordered By: Julianna Villareal on 08-15-2024 Prolactin 21.9 ng/mL 4.8-33.4 [facility] Comment on above: Performed at: ES - [facility] [id number] [place], [place] [id number] Director: Mik Jerez MD, Phone: [phone] at: CB - [facility] [id number] [place], [place] [id number] Director: Heri Louis PhD, Phone: [phone] RBC Auto (Bld) [#/Vol]Ordere d By: Julianna Villareal on 08-15-2024 RBC (Bld) [#/Vol] 5.03 10*6/uL 4.2-5.4 [facility] Rubella IgGon 08-15-2024 Rubella IgG Reactive Normal Nonreactive [facility] Comment on above: Result Comment: Anti body Results Interpretation of Immune Status Non Reactive Presumed Non-Immune Equivocal Equivocal Reactive Presumed Immune Performed By: #### L 509.4005, L3890.6300, L509.8000, L3400.0005, L3890.6100, L3890.6005 #### [facility] [address] [place], [place], [address] Rubella immune status IgGOrd ered By: Julianna Villareal on 08-15-2024 Rubella IgG Antibody Reactive Nonreactive [facility] Comment on above: Antibody Results Int erpretation of Immune Status Non Reactive Presumed Non-Immune Equivocal Equivocal Reactive Presumed Immune Serum anion gap measurementO rdered By: Julianna Villareal on 08-15-2024 Anion gap [Moles/Vol] 7 mmol/L 5-15 [facility] Serum globulin measurementOr dered By: Julianna Villareal on 08-15-2024 Globulin (S) [Mass/Vol] 3.2 g/dL 2.2-4.2 [facility] Serum or plasma alanine reic otransferase (ALT) measurementOrdered By: Julianna Villareal on 08-15-2024 ALT [Catalytic activity/Vol] 22 U/L - [facility] Serum or plasma albumin shannon urement (mass/volume)Ordered By: Julianna Villareal on 08-15-2024 Albumin [Mass/Vol] 4.2 g/dL 3.2-5.0 [facility] Serum or plasma alkaline meredith sphatase measurementOrdered By: Julianna Villareal on 08-15-2024 ALP [Catalytic activity/Vol] 96 U/L 45-117 [facility] Serum or plasma calcium shannon urement (mass/volume)Ordered By: Julianna Villareal on 08-15-2024 Calcium [Mass/Vol] 9.5 mg/dL 8.5-10.1 [facility] Serum or plasma creatinine m easurement (mass/volume)Ordered By: Julianna Villareal on 08-15-2024 Creatinine [Mass/Vol] 0.55 mg/dL 0.55-1.02 [facility] Comment on above: The validity of the calculated GFR & GFRAA in patients over 70 years has not been determined. Clinical correlation is essential. Serum or plasma urea nitroge n measurement (mass/volume)Ordered By: Julianna Villareal on 08-15-2024 Urea nitrogen [Mass/Vol] 9 mg/dL 7-18 [facility] Sodium levelOrdered By: Bernadine Villareal on 08-15-2024 Sodium [Moles/Vol] 138 mmol/L 136-145 [facility] Testosterone, Serum Totalon 08-15-2024 Testosterone [Mass/Vol] 32.20 ng/dL Normal [facility] Comment on above: Result Comment: CENT RAL 90% REFERENCE RANGES MALE AGE <50 197.44 - 669.58 ng/dL MALE AGE > or = 50 187.72 - 684.19 ng/dL FEMALE AGE <50 8.38 - 35.01 ng/dL FEMALE AGE > or = 50 <7.00 - 35.92 ng/dL Effective as of 01/26/21 Performed By: #### L 500.2500, L100.0100, L700.6800 #### [facility] [address] [place], [place], [address] Testosterone, totalOrdered B y: Julianna Villareal on 08-15-2024 Testosterone [Mass/Vol] 32.20 ng/dL [facility] Comment on above: CENTRAL 90% REFERENC E RANGES MALE AGE <50 197.44 - 669.58 ng/dL MALE AGE > or = 50 187.72 - 684.19 ng/dL FEMALE AGE <50 8.38 - 35.01 ng/dL FEMALE AGE > or = 50 <7.00 - 35.92 ng/dL Effective as of 01/26/21 Total proteinOrdered By: Juliane Villareal on 08-15-2024 Protein [Mass/Vol] 7.4 g/dL 6.4-8.2 [facility] Treponema sp Ab Ql (S)Ordere d By: Julianna Villareal on 08-15-2024 Syphilis Total Antibody Non-Reactive [facility] Type AND Screenon 08-15-2024 Ab SCREEN GEL Negative Normal [facility] Comment on above: Order Comment: PN Performed By: #### L 500.2500, L100.0100, L700.6800 #### [facility] [address] [place], [address] Varicella-zoster virus IgG a ntibody assayOrdered By: Julianna Villareal on 08-15-2024 Varicella-Zoster IgG Antibody Reactive Non Reactive [facility] Comment on above: Please note refere nce interval changeA Reactive result is considered evidence of immunity toVZV. Reactive indicates that VZV IgG was detectedconsistent with previous infection and/or vaccination.A Non Reactive result indicates that VZV IgG was notdetected suggesting that immunity has not been acquired.Performed at: [facility] [id number] Director: Heri Louis PhD, Phone: [phone] Vitamin D,25 Hydroxyon 08-15 Vitamin D 25-OH 28.5 ng/mL Normal [facility] Comment on above: Result Comment: Talisha min D 25(OH) Status Range Deficiency <20 ng/mL (50nmol/L) Insufficiency 20 - 30 ng/mL (50 - 75 nmol/L) Sufficiency 30 - 100 ng/mL (75 - 250 nmol/L) Toxicity >100 ng/mL (>250 nmol/L) Performed By: #### L 500.2500, L100.0100, L700.6800 #### [facility] [address] [place], [address] White blood cell (WBC) count Ordered By: Julianna Villareal on 08-15-2024 WBC (Bld) [#/Vol] 6.2 10*3/uL 4.4-11.0 [facility] Genital Culture Comprehensiv lawanda 06-20-2024 VAC Reason for Exam: vag inal discharge Normal vaginal ese isolated. No yeast, Gardnerella, Neisseria or beta-hemolytic Streptococcus isolated. Normal [facility] Comment on above: Performed By: #### L 500.2500, L100.0100, L700.6800 #### [facility] [address] [place], [address] Genital cultureOrdered By: Herberth Sampson on 06-19-2024 Genital Culture Neisseria or beta-hemolytic Streptococcus isolated. [facility] Gram Stainon 06-19-2024 GS Reason for Exam: vag inal discharge Gram Stain 4+ Gram positive rods 2+ Gram variable carlos 1+ White Blood Cells Clue Cells 4+ Gram negative rods Score = 6 Interpretation: 0-3 Normal, 4-6 Intermediate, 7-10 Positive BV Normal [facility] Comment on above: Performed By: #### L 500.2500, L100.0100, L700.6800 #### [facility] [address] [place], [address] Gram stainOrdered By: Lilly Sampson on 06-19-2024 Microscopic observation Gram stain Nom (Unsp spec) [facility] Event Manager Office Visit Reporton 06-19-2024 Event Manager Office Visit Report [facility] [address], [address] [place] [address] OFFICE VISIT Date of Service: 06/19/24 MR#: [id number] Acct: [id number] Name: JOSE EDWARD Rep #: [id number] : 1995 Provider: AMY Cage Age/Sex: 28/F Location[place] [facility] Status: Signed Intake Vital Signs 03/06/24 13:40 06/19/24 09:41 Height 5 ft 2 in 5 ft 2 in Weight: 176 lb BMI 32.1 BP 119/79 Intake Visit Reasons: painful intercourse Chief Complaint: painful intercourse Vat Tender Required: No Allergies Latex, Natural Rubber Allergy [...] #1 02/28/24 03/06/24 Rx (FreeStyle Lexi 2 Thorofare) flash glucose sensor (FreeStyle #1 02/28/24 03/06/24 Rx Lexi 2 Sensor kit) sertraline 25 mg tablet 25 mg PO QDAY 06/19/24 06/19/24 History Is last menstrual period known: No Post menopausal: No Patient : No : No Control Method: [facility] Abnormal uterine bleeding Conceived by in vitro fertilization Supervision of high-risk Decreased movement False labor before 37 completed weeks of gestation premature rupture of membranes (PPROM) with unknown onset of labor Genetic testing of female Wears contact lenses Anxiety Alcohol use Heartburn Vapes nicotine containing substance Endometrial polyp Abnormal uterine bleeding (AUB) Surgical History Daisy teeth extracted History of hysteroscopy Status post laparoscopy S/P D C (status post dilation and curettage) Hx of lumpectomy History of tonsillectomy and adenoidectomy Family History Mother Diabetes Uncle Diabetes Grandmother Diabetes Social History adopted: No household members: spouse number of children: 0 current occupational status: employed current occupation: [employer] current occupational exposures/hazards: No pets and animals: Yes (Avoid litterbox) pets and animals: cat(s) and dog(s) history of recent travel: Yes ([facility]) out of state: Yes out of country: No sexually active: Yes Smoking Status: Former smoker Electronic Cigarette Use: with nicotine alcohol intake: never substance use type: does not use well-balanced diet: daily or most days caffeine: No eating out: 1-3 times/week during the past year weight has: increased > 10 lbs what type of physical activity do you participate in: none jessica/gnosticism: Spiritism seatbelt use: always do you feel safe [...] noted i (more content not included)... Normal [facility] Progress Noteon 05-14-2024 Business Technology Analyst Authentication Interface Message Text Visit This is [...] Support and reassurance given. Discussed meeting with [facility] and pt has appt via telehealth [...] Precautions reviewed Pt to follow up with [facility] as scheduled The total time spent on patient care today 05/14/2024 was 20 minutes. -10 minutes direct patient care -10 minutes chart review and documentation Normal [facility] Progress Noteon 04-25-2024 Business Technology Analyst Authentication Interface Message Text Visit Subjective: Jose [...] gtt completed WNL 3. Follow up with BUSINESS INTELLIGENCE ARCHITECT as scheduled for routine well woman care 4. Discussed precon consult with future with MFM if desired The total time spent on patient care today 04/25/2024 was 30 minutes. -15 minutes direct patient care -15 minutes chart review and documentation Normal [facility] GTT 2 HOURon 04-10-2024 Glucose [Mass/Vol] 101 mg/dL 49 - PINF mg/dL [facility] Comment on above: Criteria for Diagnos [...] Interpretation and review of laboratory results Normal [facility] Glucose, 2 Hour GTT 101 mg/dL Normal >49-<140 [facility] Comment on above: Order Comment: Relea [...] G TT 2 HOUR #### JULIANNA Mack ([id number]) [facility] [employer] GTT FASTINGon 04-10-2024 Glucose [Mass/Vol] 86 mg/dL Normal >49-<100 [facility] Comment on above: Order Comment: Relea se to patient->Automatic Result Comment: Gilberto mcclure By: [id number] Performed By: #### G TT FASTING #### JULIANNA Mack ([id number]) [facility] (BEAKER) [address] GTT FastingOrdered By: Backg round Lab on 04-10-2024 Glucose post fast [Mass/Vol] 86 mg/dL 49 - PINF mg/dL [facility] Comment on above: Verified By: [id number] Interpretation and review of laboratory results Normal [facility] Progress Noteon 03-28-2024 Business Technology Analyst Authentication Interface Message Text EXAM SUMMARY Jose [...] 1 Capsule (20 mg) by mouth daily [id number] PO daily No current facility-administered medications for [...] on patient care today: 35 minutes. Normal [facility] 42on 03-17-2024 42 Check in with mom, pumping for 30 5/7 week in NICU. Mom is pumping 15cc per session. Observed pump session and resized her flanges to 22.5mm. Mom was given Spectra pump from [facility] fashion consultant sales. Answer mom's questions. Discharge today. Normal [facility] Laboratory - Chemistry and C hemistry - challengeon 03-17-2024 Glucose [Mass/Vol] 82 mg/dL 70 - 100 mg/dL [facility] No Panel Informationon 03-17 Interpretation and review of laboratory results Normal [facility] Performed by: [facility], [address] [place] [address] CLIA ID: [id number] [facility] Nursing Noteon 03-17-2024 Nursing Note Mom discharged mom i n good condition with all belongings to a private residence, accompanied by . All discharge instructions reviewed with patient who verbalizes understanding and denies further questions.Mom walked out at 1840 Normal [facility] Progress Noteon 03-17-2024 Progress Note ---- [...] away so will stay in NICU and [facility] when a spot opens. Has a [...] data in the 24 hours ending 03/17/24 0579 Physical Exam: General appearance: alert, well appearing, [...] 03/14 - Dexcom in place (share code [id number]) - Discontinued meds after delivery and have been trending post-prandials - Blood sugars normalizing - AM fasting pending Disposition: Anticipate (more content not included)... Normal [facility] - Chemistry and C hemistry - challengeon 03-16-2024 Glucose [Mass/Vol] 124 mg/dL High 70 - 100 mg/dL [facility] Glucose [Mass/Vol] 77 mg/dL 70 - 100 mg/dL [facility] Glucose [Mass/Vol] 102 mg/dL High 70 - 100 mg/dL [facility] No Panel Informationon 03-16 Interpretation and review of laboratory results Abnormal [facility] Performed by: [facility], [address] [place] [address] CLIA ID: [id number] [facility] Interpretation and review of laboratory results Normal [facility] Performed by: [facility], [address] [place] [id number] CLIA ID: [id number] [facility] Interpretation and review of laboratory results Abnormal [facility] Performed by: [facility], [address] [place] [id number] CLIA ID: [id number] [employer] [facility] Progress Noteon 03-16-2024 Progress Note ---- -------- [...] [place] (more content not included)... Normal [facility] 42on 03-15-2024 42 Initial visit with cheyenne alonzo. This is mom's first baby, delivered at 30 6/7 weeks. Mom is a transfer from [place] ( lives 1/2 from [facility]). Nurse [...] electric breast pump- [facility].All questions answered. Will continue to monitor, encourage and support patient. Normal [facility] CARECOORDon 03-15-2024 CARECOORD Sw consult for [...] be able to transfer baby to main [facility]. Sw also dicussed her and can stay at bedside. Discussed with NICU Sw who did meet with parents to assist. No further needs anticipated. OK FOR DC [facility] CARECOORD Date: 03/15/2024 Name: Jose Edward : 1995 [facility] Patient Information Primary Caregiver: Self Accompanied by/Relationship: S/O;Family Marital Status: Support System: SO/Family Hoahaoism/Cultural Factors: none Activities of Daily Living Communication: [...] Developmental Delay: N/A Children's Services: N/A Normal [facility] HEMOGLOBINon 03-15-2024 Hemoglobin (Bld) [Mass/Vol] 12.6 g/dL Normal 11.7-16.0 [facility] Comment on above: Order Comment: POD # 1; if Hemoglobin less than 8 or greater than 3gm drop from admission, notify MD and repeat as ordered, Performed By: #### L [id number] ####Fence Maker: GYPSY DAY ([phone])[facility] ([facility])[address] [place] [address] Hemoglobin (Bld) [Mass/Vol]O rdered By: Khurram Palacio on 03-15-2024 Interpretation and review of laboratory results Normal [facility] Laboratory - Chemistry and C hemistry - challengeon 03-15-2024 Glucose [Mass/Vol] 97 mg/dL 70 - 100 mg/dL [facility] Glucose [Mass/Vol] 87 mg/dL 70 - 100 mg/dL [facility] Glucose [Mass/Vol] 155 mg/dL High 70 - 100 mg/dL [facility] Glucose [Mass/Vol] 98 mg/dL 70 - 100 mg/dL [facility] Laboratory - Hematology and Cell countsOrdered By: Khurram Palacio on 03-15-2024 Hemoglobin (Bld) [Mass/Vol] 12.6 g/dL 11.7 - 16.0 g/dL [facility] No Panel Informationon 03-15 Interpretation and review of laboratory results Normal [facility] Performed by: [facility], [address] [place] [address] CLIA ID: [id number] [facility] Interpretation and review of laboratory results Normal [facility] Performed by: [facility], [address] [place] [address] CLIA ID: [id number] [facility] Interpretation and review of laboratory results Abnormal [facility] Performed by: [facility], [address] [place] [address] CLIA ID: [id number] [facility] Interpretation and review of laboratory results Normal [facility] Performed by: [facility], [address] [place] [address] CLIA ID: [id number] [facility] Nursing Noteon 03-15-2024 Nursing Note At 2320, [...] Humalog. Patient voiced understanding and agreeable. [facility] Progress Noteon 03-15-2024 Progress Note Note-Summer [...] review and documentation , 9:41 AM Normal [facility] BLOOD TYPE AND SCREEN Raheel 03-14-2024 ABO GROUPING O Normal [facility] Comment on above: Performed By: #### L [id number] ####Fence Maker: GYPSY DAY ([phone])[facility] ([facility])[address] [place] [address] RH TYPE IN BLOOD Positive Normal [facility] Comment on above: Performed By: #### L [id number] ####Fence Maker: GYPSY DAY ([phone])[facility] ([facility])[address] [place] [address] Blood type and Crossmatch cheryl pollock (Bld)on 03-14-2024 ABO group Nom (Bld) O [facility] Blood group antibody screen GEL Ql Negative [facility] D Ag Ql (RBC) Positive [facility] Laboratory - Chemistry and C hemistry - challengeon 03-14-2024 Glucose [Mass/Vol] 217 mg/dL High 70 - 100 mg/dL [facility] Glucose [Mass/Vol] 249 mg/dL High 70 - 100 mg/dL [facility] Glucose [Mass/Vol] 101 mg/dL High 70 - 100 mg/dL [facility] Glucose [Mass/Vol] 116 mg/dL High 70 - 100 mg/dL [facility] No Panel Informationon 03-14 Interpretation and review of laboratory results Abnormal [facility] Performed by: [facility], [address] [place] [address] CLIA ID: [id number] [employer] Interpretation and review of laboratory results Abnormal [facility] Performed by: [facility], [address] [place] [address] CLIA ID: [id number] [employer] 1. Allen live intrauterine at 30w 5d. [...] ultrasound findings do not guarantee normal outcomes. [facility] RADIOLOGY SYSTEM OBSTETRICS REPORT (Signed Final 03/14/2024 12:33 pm) PATIENT INFO: ID #: [id number] : [birth year] (28 yrs)(F) Name: JOSE EDWARD Visit Date: 03/14/2024 09:55 am PERFORMED BY: Attending: Christiano Au MD Performed By: Allison Langley RDNJ Referred By: JULIANA NGUYEN [facility] Phy.: RAND HALLMAN Location: [facility] Visit Type: Inpatient - Hospital SERVICE(S) PROVIDED: LAUREN w/jessica GUZMAN [id number] [place] [id number] INDICATIONS: Oligohydramnios, third trimester, not O41.03X0 applicable [...] 03/14/2024 12:33 pm) PATIENT INFO: ID #: [id number] : [birth year] (28 yrs)(F) Name: JOSE EDWARD Visit Date: 03/14/2024 09:55 am PERFORMED BY: Attending: Christiano Au MD Performed By: Allison Langley RDNJ Referred By: JULIANA NGUYEN [facility] Phy.: RAND HALLMAN Location: [facility] Visit Type: Inpatient - Hospital SERVICE(S) PROVIDED: [place] w/out MEGAN [id number] [place] [address] INDICATIONS: Oligohydramnios, third trimester, not O41.03X0 applicable [...] ultrasound findings do not guarantee normal outcomes. [facility] Interpretation and review of laboratory results Abnormal [facility] Performed by: [facility], [address] [place] [address] CLIA ID: [id number] [facility] Radiology Study observation (narrative) [facility] Interpretation and review of laboratory results Abnormal [facility] Performed by: [facility] [email or web address] [facility], [address] [place] [address] CLIA ID: [id number] [facility] No Panel InformationOrdered By: Christiano Au on 03-14-2024 [facility] Work Phone: Nursing Noteon 03-14-2024 Nursing Note Pt reports spotting on her pad and upon assessing urine found a few red specks in her urine Normal [facility] Nursing Note Dr. Nguyen made aware that pt was just up to restroom and had a quarter size mucousy, bloody clot into toilet. No active bleeding noted. No change to plan of care at this time Normal [facility] Nursing Note Pt made aware that o rder for nothing to eat or drink has been ordered by Dr. Duarte. She states understanding. I made her aware that I will be starting IV fluids also. Normal [facility] Op Noteon 03-14-2024 Op Note 3x1 [...] > 40 (more content not included)... Normal [facility] Progress Noteon 03-14-2024 Progress Note 1hr [...] to CCD Savanah Duarte, 03/15/2024 12:[address] [facility] Progress Note Nutrition Note: Patient now s/p delivery earlier today. Regular diet ordered which is appropriate. RD sign off to [employer] to continue to monitor. Gypsy Kirby MS RD LD Clinical Dietitian [facility] Progress Note Safety Huddle: Called due to PPROM and laboring with breech presentation and having vaginal bleeding. OB anesthesia, primary RN, take down sorter, Dr. Gordillo all present. Will be for 2g Ancef, she is allergic to azithromycin. Received latency abx already. ACCOUNT INSTALLATION SPECIALIST notified. Consent signed by Dr. Au, risks and benefits discussed with the patient including bleeding, infection, damage to surrounding structures. Will proceed with primary section unscheduled, non-emergent. All in agreement. ANA TOVAR DO 03/14/2024 10:43 AM ATTENDING NOTE: I reviewed the note from the Resident and agree with the documentation unless otherwise indicated. [facility] Progress Note Evaluated the patien t to assess position. The fetus is breech on BSUS. Ehsan Gonsalez MD 03/14/2024 9:[address] [facility] Progress Note ---- -------- Attestation signed [...] ODT (Z (more content not included)... Normal [facility] US BIOPHYSICAL PROFILE WO NON STRESS TESTINGon 03-14-2024 US BIOPHYSICAL PROFILE WO NON STRESS TESTING OBSTETRICS REPORT (Signed Final 03/14/2024 12:33 pm) PATIENT INFO: ID #: [id number] : [birth year] (28 yrs)(F) Name: JOSE THOMASHERNÁN Visit Date: 03/14/2024 09:55 am PERFORMED BY: Attending: Christiano Au MD Performed By: Allison Langley [facility] Referred By: JULIANA NGUYEN [facility] Phy.: RAND HALLMAN Location: [facility] Visit Type: Inpatient - Hospital SERVICE(S) PROVIDED: [facility] w/out NST [id number] [place] [address] INDICATIONS: Oligohydramnios, third trimester, not O41.03X0 applicable [...] findings do not guarantee normal outcomes. Normal [facility] US OB FOLLOW UP TRANSABDOMIN AL APPROACHon 03-14-2024 US OB FOLLOW UP TRANSABDOMINAL APPROACH OBSTETRICS REPORT (Signed Final 03/14/2024 12:33 pm) PATIENT INFO: ID #: [id number] : [birth year] (28 yrs)(F) Name: JOSE EDWARD Visit Date: 03/14/2024 09:55 am PERFORMED BY: Attending: Christiano Au MD Performed By: Allison Langley RDMS Referred By: JULIANA NGUYEN Secondary Phy.: RAND HALLMAN Location: [facility] Visit Type: Inpatient - Hospital SERVICE(S) PROVIDED: LAUREN w/jessica XIONGT [id number] [place] [address] INDICATIONS: Oligohydramnios, third trimester, not O41.03X0 applicable [...] findings do not guarantee normal outcomes. Normal [facility] CARECOORDon 03-13-2024 [facility] day 8 at 30 /4 weeks. PPROM. Voiced no needs or concerns. Normal [facility] CBC (HEMOGRAM)on 03-13-2024 Erythrocyte distribution width (RBC) [Ratio] 13.8 % Normal 11.5-15.0 [facility] Comment on above: Performed By: #### L [id number] ####Fence Maker: GYPSY DAY ([id number])[address] Hematocrit (Bld) [Volume fraction] 38.4 % Normal 35.0-47.0 [facility] Comment on above: Performed By: #### L AB294 ####Fence Maker: GYPSY DAY ([id number])[address] Hemoglobin (Bld) [Mass/Vol] 13.0 g/dL Normal 11.7-16.0 [facility] Comment on above: Performed By: #### L AB294 ####Fence Maker: GYPSY DAY ([id number])[address] MCH (RBC) [Entitic mass] 29.8 pg Normal 26.0-34.0 [facility] Comment on above: Performed By: #### L [id number] ####Fence Maker: GYPSY DAY ([id number])[address] MCHC 33.9 % Normal 30.5-36.0 [facility] Comment on above: Performed By: #### L [id number] ####Fence Maker: GYPSY DAY ([id number])[facility])[address] [place] [address] MCV (RBC) [Entitic vol] 88.1 fL Normal 77.0-99.0 [facility] Comment on above: Performed By: #### L [id number] ####Fence Maker: GYPSY DAY ([id number])[facility])[address] [place] [address] Platelet mean volume (Bld) [Entitic vol] 9.5 fL Normal 9.0-12.7 [facility] Comment on above: Performed By: #### L [id number] ####Fence Maker: GYPSY DAY ([id number])[facility])[address] [place] [address] Platelets (Bld) [#/Vol] 282 10*3/uL Normal 140-440 [facility] Comment on above: Performed By: #### L [id number] ####Fence Maker: GYPSY DAY ([id number])[facility])[address] [place] [address] RBC (Bld) [#/Vol] 4.36 10*6/uL Normal 3.80-5.20 [facility] Comment on above: Performed By: #### L [id number] ####Fence Maker: GYPSY DAY ([id number])[facility])[address] [place] [address] WBC (Bld) [#/Vol] 8.7 10*3/uL Normal 3.6-10.7 [facility] Comment on above: Performed By: #### L [id number] ####Fence Maker: GYPSY DAY ([id number])[facility])[address] [place] [address] CBC panel Auto (Bld)on 03-13 Erythrocyte distribution width (RBC) [Ratio] 13.8 % 11.5 - 15.0 % [facility] Hematocrit (Bld) [Volume fraction] 38.4 % 35.0 - 47.0 % [facility] Hemoglobin (Bld) [Mass/Vol] 13.0 g/dL 11.7 - 16.0 g/dL [facility] Interpretation and review of laboratory results Normal [facility] MCH (RBC) [Entitic mass] 29.8 pg 26.0 - 34.0 pg [facility] MCHC (RBC) [Mass/Vol] 33.9 % 30.5 - 36.0 % [facility] MCV (RBC) [Entitic vol] 88.1 fL 77.0 - 99.0 fL [facility] Platelet mean volume (Bld) [Entitic vol] 9.5 fL 9.0 - 12.7 fL [facility] Platelets (Bld) [#/Vol] 282 10*3/uL 140 - 440 10*3/uL [facility] RBC (Bld) [#/Vol] 4.36 10*6/uL 3.80 - 5.2 0 10*6/uL [facility] WBC (Bld) [#/Vol] 8.7 10*3/uL 3.6 - 10.7 10*3/uL [facility] IDNon 03-13-2024 IDN The patient is Moderately Stable - Low risk of patient condition declining or worsening The patient's goals for the shift include remain The clinical goals for the shift include remain afebrile Normal [facility] IDN The patient is Moderately Stable - Low risk of patient condition declining or worsening The patient's goals for the shift include remain The clinical goals for the shift include remain afebrile Normal [facility] Laboratory - Chemistry and C hemistry - challengeon 03-13-2024 Glucose [Mass/Vol] 230 mg/dL High 70 - 100 mg/dL [facility] Glucose [Mass/Vol] 162 mg/dL High 70 - 100 mg/dL [facility] Glucose [Mass/Vol] 92 mg/dL 70 - 100 mg/dL [facility] Glucose [Mass/Vol] 91 mg/dL 70 - 100 mg/dL [facility] No Panel Informationon 03-13 Interpretation and review of laboratory results Abnormal [facility] Performed by: [facility] [place] [facility], [address] [place], [place] [id number] CLIA ID: [id number] [facility] Interpretation and review of laboratory results Abnormal [facility] Performed by: [facility], [address] [place] [address], [place] [address] CLIA ID: [id number] [facility] Interpretation and review of laboratory results Normal [facility] Performed by: [facility], [address] [facility], [place] [address] CLIA ID: [id number] [facility] Interpretation and review of laboratory results Normal [facility] Performed by: [facility], [address] [place] [address], [place] [address] CLIA ID: [id number] [facility] Progress Noteon 03-13-2024 Progress Note Notified of [...] closely. Savanah Duarte DO 03/13/2024 11:23 PM Wilson more cramping. 1cm dilated. Reportedly was 1cm [...] Savanah Duarte DO 03/14/2024 4:09 AM Normal [facility] Progress Note Temperature of 100.4 [...] ?C (97.9 ?F) (Oral) Resp 16 Normal [facility] Progress Note ---- -------- Attestation signed [...] infection. Primary patient of Edouard Paulson/Prachi in [place]. Alerted her RN today to continue temp [...] Jacey secondary to blood noted; transported to [facility] - in triage, SSE showed gross rupture of membranes with nitrazine positive, ferning negative and visually closed - Admitted for further observation with latency antibiotics and steroids - Plan for delivery at 34 weeks or if indicated sooner for labor, infection, or N (more content not included)... Normal [facility] Consulton 03-12-2024 Consult Consult by Neonatology [...] from NICU Potential need for transfer to [facility] [facility] if needs esclation of care, [...] has already submitted an application to [employer] in order to be closer for baby Josue after she delivers/is discharged. Paola Cole MD Normal [facility] Laboratory - Chemistry and C hemistry - challengeon 03-12-2024 Glucose [Mass/Vol] 163 mg/dL High 70 - 100 mg/dL [facility] Glucose [Mass/Vol] 128 mg/dL High 70 - 100 mg/dL [facility] Glucose [Mass/Vol] 134 mg/dL High 70 - 100 mg/dL [facility] Glucose [Mass/Vol] 104 mg/dL High 70 - 100 mg/dL [facility] No Panel Informationon 03-12 Interpretation and review of laboratory results Abnormal [facility] Performed by: [facility] [email or web address] [facility], [address] [place] [address] CLIA ID: [id number] [facility] [employer] [facility] Interpretation and review of laboratory results Abnormal [facility] Performed by: [facility] [email or web address] [facility], [address] [place] [address] CLIA ID: [id number] [facility] [employer] [facility] Interpretation and review of laboratory results Abnormal [facility] Performed by: [facility] [email or web address] [facility], [address] [place] [address], [facility] [address] CLIA ID: [id number] [facility] [employer] [facility] Interpretation and review of laboratory results Abnormal [facility] [employer] Performed by: [facility] [email or web address] [facility], [address] [place] [address] CLIA ID: [id number] [facility] [employer] [facility] Progress Noteon 03-12-2024 Progress Note ---- -------- [...] Jacey secondary to blood noted; transported to [facility] - in triage, SSE showed gross [...] diet - Dexcom in place, share code [id number] - Continue to monitor BGTs fasting and 1 codi (more content not included)... Normal [facility] 42on 03-11-2024 42 In to visit [...] options for home going pump; pt has [employer] insurance. Availability of LC for NICU and reviewed. [facility] handout Your NICU Baby given and reviewed. Encouraged to watch videos from [employer]911 View to support her goals. Resource numbers given for [facility] dept and [facility] [employer] dept. Encouraged to call with any questions / concerns. Pt receptive to my visit and education. Denies questions at this time. Normal [facility] CARECOORDon 03-11-2024 [facility] day 6 at 30 /2 weeks. Anhydramnios PPROM at 30/2 weeks referral. Voiced no needs or concerns. Normal [facility] Laboratory - Chemistry and C hemistry - challengeon 03-11-2024 Glucose [Mass/Vol] 104 mg/dL High 70 - 100 mg/dL [facility] Glucose [Mass/Vol] 91 mg/dL 70 - 100 mg/dL [facility] Glucose [Mass/Vol] 99 mg/dL 70 - 100 mg/dL [facility] Glucose [Mass/Vol] 88 mg/dL 70 - 100 mg/dL [facility] No Panel Informationon 03-11 Interpretation and review of laboratory results Abnormal [facility] Performed by: [facility], [address] [place] [address] [place] [address] CLIA ID: [id number] [facility] [employer] [facility] Interpretation and review of laboratory results Normal [facility] Performed by: [facility], [address] [place] [address], [facility] [address] CLIA ID: [id number] [facility] Interpretation and review of laboratory results Normal [facility] Performed by: [facility], [address] [place] [address], [facility] [address] CLIA ID: [id number] [facility] [employer] [facility] - [place] live intrauterine at 30w 2d in breech presentation - The amniotic fluid index is 1.3cm. There is no 2x2 pocket of fluid. - Biophysical profile, 12/08. (-2 for fluid) [employer] RADIOLOGY SYSTEM OBSTETRICS REPORT (Signed Final 03/11/2024 09:42 am) PATIENT INFO: ID #: [id number] : [birth year] (28 yrs)(F) Name: JOSE EDWARD Visit Date: 03/11/2024 09:07 am PERFORMED BY: Attending: Saumya Mancia Performed By: Jaquan Aguilar Referred By: JULIANA NGUYEN Location: [facility] IP Visit Type: Inpatient - Hospital SERVICE(S) PROVIDED: LAUREN w/out NST [address] INDICATIONS: Oligohydramnios, third trimester, not O41.03X0 applicable [...] 03/11/2024 09:42 am) PATIENT INFO: ID #: [id number] : [birth year] (28 yrs)(F) Name: JOSE EDWARD Visit Date: 03/11/2024 09:07 am PERFORMED BY: Attending: Saumya Mancia Performed By: Jaquan Aguilar Referred By: JULIANA NGUYEN Location: [facility] IP Visit Type: Inpatient - Hospital SERVICE(S) PROVIDED: LAUREN w/out MEGAN [id number] INDICATIONS: Oligohydramnios, third trimester, not O41.03X0 applicable [...] - Biophysical profile, 12/08. (-2 for fluid) [facility] Radiology Study observation (narrative) [facility] Interpretation and review of laboratory results Normal [facility] Performed by: [facility], [address] [place] [address] CLIA ID: [id number] [facility] Progress Noteon 03-11-2024 Progress Note Rn notified me that patient having contractions, feeling some pressure. SSE showed closed cervix, no bleeding noted on exam, posterior cervix. Cat I FHT. Will continue to monitor. ANA ROSEASHLY, 03/11/2024 12:[address] [facility] Progress Note ---- -------- Attestation signed by Saumya Mancia MD at 03/11/2024 2:51 PM MFM ATTENDING I have personally obtained a history and examined the patient with Dr. Nguyen. I agree with the assessment and plan as documented in the resident's note. The patient is a 28 y.o. 30w2d now HD#6, admitted for PPROM Pertinent Background: Transferred from [place] for PPROM. Gross rupture confirmed on admit and anhydramnios at OSH ultrasound. Given BMZ, Mag for MATERIAL CONTROL ANALYST and latency antibiotics (amox only due to [...] BMZ for lung maturity and magnesium for MATERIAL CONTROL ANALYST. We discussed the indication for delivery with [...] MD prenata (more content not included)... Normal [facility] Progress Note Notified by RN of bleeding patient noticed while wiping and reports of abdominal tightening. FHT Cat I. No CTX on toco. FHT Cat I. SSE performed, cervix visually 1 cm, unchanged from prior exams. No bleeding noted, friability noted on os. Patient placed on monitor, IVF bolus given. Will continue to monitor closely. Normal [facility] US BIOPHYSICAL PROFILE WO NON STRESS TESTINGon 03-11-2024 US BIOPHYSICAL PROFILE WO NON STRESS TESTING OBSTETRICS REPORT (Signed Final 03/11/2024 09:42 am) PATIENT INFO: ID #: [id number] : [birth year] (28 yrs)(F) Name: JOSE EDWARD Visit Date: 03/11/2024 09:07 am PERFORMED BY: Attending: Saumya Mancia Performed By: Jaquan Aguilar Referred By: JULIANA NGUYEN Location: [facility] IP Visit Type: Inpatient - Hospital SERVICE(S) PROVIDED: [facility] w/out NST [address] INDICATIONS: Oligohydramnios, third trimester, not O41.03X0 applicable [...] Biophysical profile, 12/08. (-2 for fluid) Normal [facility] BLOOD TYPE AND SCREEN GELon 03-10-2024 ABO GROUPING O Normal [facility] Comment on above: Performed By: #### L [id number] ####Fence Maker: GYPSY DAY ([id number])[facility] ([facility])[address] [place] [address] RH TYPE IN BLOOD Positive Normal [facility] Comment on above: Performed By: #### L [id number] ####Fence Maker: GYPSY DAY ([id number])[facility] ([facility])[address] [place] [address] Blood type and Crossmatch pa phill (Bld)on 03-10-2024 ABO group Nom (Bld) O [facility] Blood group antibody screen GEL Ql Negative [facility] D Ag Ql (RBC) Positive [facility] Laboratory - Chemistry and C hemistry - challengeon 03-10-2024 Glucose [Mass/Vol] 135 mg/dL High 70 - 100 mg/dL [facility] Glucose [Mass/Vol] 115 mg/dL High 70 - 100 mg/dL [facility] Glucose [Mass/Vol] 115 mg/dL High 70 - 100 mg/dL [facility] Glucose [Mass/Vol] 89 mg/dL 70 - 100 mg/dL [facility] No Panel Informationon 03-10 Interpretation and review of laboratory results Abnormal [facility] Performed by: [facility], [address] [place] [address] CLIA ID: [id number] [facility] Interpretation and review of laboratory results Abnormal [facility] Performed by: [email or web address], [address] [place] [address] CLIA ID: [id number] [facility] Interpretation and review of laboratory results Abnormal [facility] Performed by: [facility], [address] [place] [address] CLIA ID: [id number] [facility] Interpretation and review of laboratory results Normal [facility] Performed by: [facility] [email or web address] [facility], [address] [place] [address] CLIA ID: [id number] [facility] Progress Noteon 03-10-2024 Progress Note ---- -------- Attestation signed by Saumya Mancia MD at 03/10/2024 2:46 PM MFM ATTENDING I have personally obtained a history and examined the patient with Dr. Nguyen. I agree with the assessment and plan as documented in the resident's note. The patient is a 28 y.o. 30w1d now HD#5, admitted for PPROM Pertinent Background: Transferred from [place] for PPROM. Gross rupture confirmed on admit and anhydramnios at OSH ultrasound. Given BMZ, Mag for MATERIAL CONTROL ANALYST and latency antibiotics (amox only due to [...] BMZ for lung maturity and magnesium for MATERIAL CONTROL ANALYST. We discussed the indication for delivery with [...] facility showed (more content not included)... Normal [facility] Laboratory - Chemistry and C hemistry - challengeon 03-09-2024 Glucose [Mass/Vol] 177 mg/dL High 70 - 100 mg/dL [facility] Glucose [Mass/Vol] 172 mg/dL High 70 - 100 mg/dL [facility] Glucose [Mass/Vol] 94 mg/dL 70 - 100 mg/dL [facility] Glucose [Mass/Vol] 139 mg/dL High 70 - 100 mg/dL [facility] Glucose [Mass/Vol] 91 mg/dL 70 - 100 mg/dL [facility] No Panel Informationon 03-09 Interpretation and review of laboratory results Abnormal [facility] Performed by: [facility] [email or web address] [facility], [address] [place] [address] CLIA ID: [id number] [facility] Interpretation and review of laboratory results Abnormal [facility] Performed by: [facility], [address] [place] [address] CLIA ID: [id number] [facility] Interpretation and review of laboratory results Normal [facility] Performed by: [facility] [email or web address] [facility], [address] [place] [address] CLIA ID: [id number] [facility] Interpretation and review of laboratory results Abnormal [facility] Performed by: [facility] [email or web address] [facility], [address] [place] [address] CLIA ID: [id number] [facility] Interpretation and review of laboratory results Normal [facility] Performed by: [facility] [email or web address] [facility], [address] [place] [address] CLIA ID: [id number] [facility] Progress Noteon 03-09-2024 Progress [...] admitted for PPROM Pertinent Background: Transferred from [place] for PPROM. Gross rupture confirmed on admit and anhydramnios at OSH ultrasound. Given BMZ, Mag for MATERIAL CONTROL ANALYST and latency antibiotics (amox only due to [...] BMZ for lung maturity and magnesium for MATERIAL CONTROL ANALYST. We discussed the indication for delivery with [...] 1011 Assessme (more content not included)... Normal [facility] Bacteria identified Cx Nom ( U)Ordered By: Karyn Ramírez on 03-08-2024 Interpretation and review of laboratory results [facility] Day 3; 29/6 weeks today; No concerns at this time; Pt states she is interested in the possibility of staying at the [facility] after delivery due to living approx. 2 hours away; patient and provided background check paperwork; will be faxed to [facility] referral line; Will consult for patient as pt would like to see prior to delivery Normal [facility] Laboratory - Chemistry and C hemistry - challengeon 03-08-2024 Glucose [Mass/Vol] 143 mg/dL High 70 - 100 mg/dL [facility] Glucose [Mass/Vol] 171 mg/dL High 70 - 100 mg/dL [facility] Glucose [Mass/Vol] 125 mg/dL High 70 - 100 mg/dL [facility] Glucose [Mass/Vol] 133 mg/dL High 70 - 100 mg/dL [facility] Laboratory - Microbiology an d Antimicrobial susceptibilityOrdered By: Karyn Ramírez on 03-08-2024 Bacteria identified Cx Nom (U) No growth (<1,000 CFU/mL) [facility] No Panel Informationon 03-08 Interpretation and review of laboratory results Abnormal [facility] Performed by: [facility], [address] [place] [address] CLIA ID: [id number] [facility] Interpretation and review of laboratory results Abnormal [facility] Performed by: [facility], [address] [place] [address] CLIA ID: [id number] [facility] Interpretation and review of laboratory results Abnormal [facility] Performed by: [facility], [address] [place] [address], [facility] [address] CLIA ID: [id number] [facility] Interpretation and review of laboratory results Abnormal [facility] Performed by: [facility], [address] [place] [address] CLIA ID: [id number] [facility] Progress Noteon 03-08-2024 Progress Note Nutrition rescreen completed. Patient referred to the Dietitian due to gestational diabetes. YUN Pineda Normal [facility] Progress Note ---- -------- Attestation signed [...] at OSH ultrasound. Given BMZ, Mag for MATERIAL CONTROL ANALYST and latency antibiotics (amox only due to [...] BMZ for lung maturity and magnesium for MATERIAL CONTROL ANALYST. We discussed the indication for delivery with [...] to A (more content not included)... Normal [facility] S. agalactiae DNA EDUARDO+probe Ql (Unsp spec)on 03-08-2024 Group B Strep Screen Not detected Not Detected [facility] Interpretation and review of laboratory results Normal [facility] Methodology: real-ti me PCR [facility] Bacterial vaginosis and vagi nitis rRNA panel Probe (Vag fld)on 03-07-2024 Bacterial vaginosis Ql (Vag fld) [Interp] Not detected Not Detected [facility] C. glabrata DNA EDUARDO+probe Ql (Vag fld) Not detected Not Detected [facility] Keesha sp DNA EDUARDO+probe Ql (Vag fld) Not detected Not Detected [facility] Interpretation and review of laboratory results Normal [facility] T. vaginalis DNA EDUARDO+probe Ql (Vag fld) Not detected Not Detected [facility] Methodology: real-ti me PCR A negative [...] sexual abuse or for other forensic purposes. [facility] CARECOORDon 03-07-2024 CARECOORD Date: 03/07/2024 Name: Jose Edward : 1995 [place] - transport Patient Information Primary Caregiver: Self Accompanied by/Relationship: S/O;Family Marital Status: Support System: SO/Family Hoahaoism/Cultural Factors: Activities of Daily Living Communication: See [...] Developmental Delay: N/A Children's Services: N/A Normal [facility] CHLAMYDIA/GONORRHEAon 2023 CHLAMYDIA/GONORRHEA NEISSERIA GONORRHOEA [...] should be collected if clinically indicated. Normal [facility] Comment on above: Performed By: #### L [id number] ####Fence Maker: GYPSY DAY ([id number])[facility])[address] [place] [address] GROUP B STREP SCREEN BY PCRo n 03-07-2024 GROUP B STREP SCREEN BY PCR GROUP B STREP SCREEN BY PCR Reference Not Detected Not Detected ORDER COMMENTS: Methodology: real-time PCR Normal [facility] Comment on above: Performed By: #### L [id number] ####Fence Maker: GYPSY DAY ([id number])[facility] ([facility])[address] [place] [address] Laboratory - Chemistry and C hemistry - challengeon 03-07-2024 Glucose [Mass/Vol] 149 mg/dL High 70 - 100 mg/dL [facility] Glucose [Mass/Vol] 135 mg/dL High 70 - 100 mg/dL [facility] Glucose [Mass/Vol] 129 mg/dL High 70 - 100 mg/dL [facility] Glucose [Mass/Vol] 105 mg/dL High 70 - 100 mg/dL [facility] Glucose [Mass/Vol] 158 mg/dL High 70 - 100 mg/dL [facility] N. gonorrhoeae DNA EDUARDO+probe Ql (Cervical mucus)on 03-07-2024 C. trachomatis DNA EDUARDO+probe Ql (Unsp spec) Not detected Not Detected [facility] Interpretation and review of laboratory results Normal [facility] N gonorrhoeae, DNA Probe Not detected Not Detected [facility] Methodology: real-ti me PCR This test [...] specimen should be collected if clinically indicated. [employer] No Panel Informationon 03-07 Interpretation and review of laboratory results Abnormal [facility] Performed by: [facility] [email or web address] [facility], [address] [place] [address] CLIA ID: [id number] [employer] Interpretation and review of laboratory results Abnormal [facility] Performed by: [facility], [address] [place] [address] CLIA ID: [id number] [employer] 1. Allen live intrauterine at 29w [...] above. 5. BPP is 6/8 for fluid. [facility] OBSTETRICS REPORT (Signed Final 03/07/2024 11:11 am) PATIENT INFO: ID #: [id number] : [birth year] (28 yrs)(F) Name: JOSE EDWARD Visit Date: 03/07/2024 09:36 am PERFORMED BY: Attending: Saumya Mancia Performed By: Allison Langley RDMS Referred By: JULIANA NGUYEN Location: [facility] IP Visit Type: Inpatient - Hospital SERVICE(S[place] [address] [place] NST 72787 INDICATIONS: Oligohydramnios, third trimester, not O41.03X0 applicable [...] Thoracic: Normal appear (more content not included)... [facility] RADI[facility] Saumya Mancia MD - 03/07/2024 OBSTETRICS REPORT (Signed Final 03/07/2024 11:11 am) PATIENT INFO: ID #: [id number] : [birth year] (28 yrs)(F) Name: JOSE EDWARD Visit Date: 03/07/2024 09:36 am PERFORMED BY: Attending: Saumya Mancia Performed By: Allison Langley RDNJ Referred By: JULIANA NGUYEN Location: [facility] IP Visit Type: Inpatient - Hospital SERVICE(S[place] [address] BP w/out NST 15561 INDICATIONS: Oligohydramnios, third trimester, not O41.03X0 applicable [...] Normal appearance Interventr. Septum: Suboptimal views Cardiac [place]: Normal appearance Diaphragm: Normal appearance 3 Vessel View: Normal appearance 3 V Trachea View: Suboptimal views IVC: Normal Appearance Crossing: Suboptimal views Abdomen Ventral Wall: Normal appearance Cord Insertion: Normal appearance Situs: Normal appearance Stomach: Nor (more content not included)... [facility] Interpretation and review of laboratory results Abnormal [facility] Performed by: [facility], [address] [place] [address] CLIA ID: [id number] [employer] Radiology Study observation (narrative) [facility] Interpretation and review of laboratory results Abnormal [facility] Performed by: [facility], [address] [place] [address] CLIA ID: [id number] [employer] Interpretation and review of laboratory results Abnormal [facility] Performed by: [facility], [address] [place] [address] CLIA ID: [id number] [employer] No Panel InformationOrdered By: Saumya Mancia on 03-07-2024 [facility] Work Phone: Nursing Noteon 03-07-2024 Nursing Note RN called to bedside at 0435, pt reporting feeling increased leakage of fluid. Denies cramping, contractions, or pain, but does state feeling pressure which has become more constant. Dr Boles aware. Pt instructed to notify RN immediately if pressure intensifies or if cramping / contractions occur. Normal [facility] Progress Noteon 03-07-2024 Progress Note ---- [...] at OSH ultrasound. Given BMZ, Mag for MATERIAL CONTROL ANALYST and latency antibiotics (amox only due to [...] BMZ for lung maturity and magnesium for MATERIAL CONTROL ANALYST. We discussed the indication for delivery with any signs of infection. We reviewed the recommendation for inpatient admission until delivery and plan for delivery at 34 weeks unless indicated sooner for labor, infection or NRFS. All questions answered. Continue latency antibiotics for 7 days total. BMZ #2 this evening S/p Mag for MATERIAL CONTROL ANALYST x >12 hrs total- now stopped NICU [...] infusion 1 (more content not included)... Normal [facility] US BIOPHYSICAL PROFILE WO NON STRESS TESTINGon 03-07-2024 US BIOPHYSICAL PROFILE WO NON STRESS TESTING OBSTETRICS REPORT (Signed Final 03/07/2024 11:11 am) PATIENT INFO: ID #: [id number] : [birth year] (28 yrs)(F) Name: JOSE EDWARD Visit Date: 03/07/2024 09:36 am PERFORMED BY: Attending: Saumya Mancia Performed By: Allison Langley RDMS Referred By: JULIANA NGUYEN Location: [facility] IP Visit Type: Inpatient - Hospital SERVICE(S[place] [address] BP [place]/out NST 18858 INDICATIONS: Oligohydramnios, third trimester, not O41.03X0 applicable [...] Normal appearance Interventr. Septum: Suboptimal views Cardiac [place]: Normal appearance Diaphragm: Normal appearance 3 Vessel View: Normal appearance 3 V Trachea View: Suboptimal views IVC: Normal Appearance Crossing: Suboptimal views Abdomen Ventral Wall: Normal appearance Cord Insertion: Normal appearance Situs: Normal appearance Stomach: Normal appearance Liver: Normal appearance Lt Kidney: Normal appearance Rt Kidney: Normal appearance Bladder: N (more content not included)... Normal [facility] US OB FOLLOW UP TRANSABDOMIN AL APPROACHon 03-07-2024 US OB FOLLOW UP TRANSABDOMINAL APPROACH OBSTETRICS REPORT (Signed Final 03/07/2024 11:11 am) PATIENT INFO: ID #: [id number] : [birth year] (28 yrs)(F) Name: JOSE EDWARD Visit Date: 03/07/2024 09:36 am PERFORMED BY: Attending: Saumya Mancia Performed By: Allison Langley [facility] Referred By: JULIANA NGUYEN Location: [facility] IP Visit Type: Inpatient - Hospital SERVICE(S) PROVIDED: [place] [address] BPP w/out NST 70594 INDICATIONS: Oligohydramnios, third trimester, not O41.03X0 applicable [...] Normal appearance Interventr. Septum: Suboptimal views Cardiac [place]: Normal appearance Diaphragm: Normal appearance 3 Vessel View: Normal appearance 3 V Trachea View: Suboptimal views IVC: Normal Appearance Crossing: Suboptimal views Abdomen Ventral Wall: Normal appearance Cord Insertion: Normal appearance Situs: Normal appearance Stomach: Normal appearance Liver: Normal appearance Lt Kidney: Normal appearance Rt Kidney: Normal appearance Bladder: N (more content not included)... Normal [facility] VAGINITIS PANEL MVP PCRon VAGINITIS PANEL [...] abuse or for other forensic purposes. Normal [facility] Comment on above: Performed By: #### L [id number] #### Fence Maker: GYPSY DAY ([id number]) [facility] ([facility]) [address] [place] [address] BLOOD TYPE AND SCREEN GELon 03-06-2024 ABO GROUPING O Normal [facility] Comment on above: Order Comment: HOLD. Specimen is valid for 3 days - nurse to verify valid specimen Performed By: #### L [id number] ####Fence Maker: GYPSY DAY ([id number])[facility] B[facility] ([facility])[address] [place] [address] RH TYPE IN BLOOD Positive Normal [facility] Comment on above: Order Comment: HOLD. Specimen is valid for 3 days - nurse to verify valid specimen Performed By: #### L [id number] ####Fence Maker: GYPSY DAY ([id number])[facility] ([facility])[address] [place] [address] Blood type and Crossmatch pa phill (Bld)on 03-06-2024 ABO group Nom (Bld) O [facility] Blood group antibody screen GEL Ql Negative [facility] D Ag Ql (RBC) Positive [facility] CBC (HEMOGRAM)on 03-06-2024 Erythrocyte distribution width (RBC) [Ratio] 13.9 % Normal 11.5-15.0 [facility] Comment on above: Performed By: #### L [id number] ####Fence Maker: GYPSY DAY ([id number])[facility] ([facility])[address] [place] [address] Hematocrit (Bld) [Volume fraction] 41.8 % Normal 35.0-47.0 [facility] Comment on above: Performed By: #### L [id number] ####Fence Maker: GYPSY DAY ([id number])[facility] ([facility])[address] [place] [address] Hemoglobin (Bld) [Mass/Vol] 14.1 g/dL Normal 11.7-16.0 [facility] Comment on above: Performed By: #### L [id number] ####Fence Maker: GYPSY DAY ([id number])[facility] ([facility])[address] [place] [address] MCH (RBC) [Entitic mass] 30.4 pg Normal 26.0-34.0 [facility] Comment on above: Performed By: #### L [id number] ####Fence Maker: GYPSY DAY ([id number])[facility])[address] [place] [address] MCHC 33.7 % Normal 30.5-36.0 [facility] Comment on above: Performed By: #### L [id number] ####Fence Maker: GYPSY DAY ([id number])[facility] ([facility])[address] [place] [address] MCV (RBC) [Entitic vol] 90.1 fL Normal 77.0-99.0 [facility] Comment on above: Performed By: #### L [id number] ####Fence Maker: GYPSY DAY ([id number])[facility])[address] [place] [address] Platelet mean volume (Bld) [Entitic vol] 9.8 fL Normal 9.0-12.7 [facility] Comment on above: Performed By: #### L [id number] ####Fence Maker: GYPSY DAY ([id number])[facility])[address] [place] [address] Platelets (Bld) [#/Vol] 311 10*3/uL Normal 140-440 [facility] Comment on above: Performed By: #### L [id number] ####Fence Maker: GYPSY DAY ([id number])[facility] ([facility])[address] [place] [address] RBC (Bld) [#/Vol] 4.64 10*6/uL Normal 3.80-5.20 [facility] Comment on above: Performed By: #### L [id number] ####Fence Maker: GYPSY DAY ([id number])[facility] ([facility])[address] [place] [address] WBC (Bld) [#/Vol] 15.2 10*3/uL High 3.6-10.7 [facility] Comment on above: Performed By: #### L [id number] ####Fence Maker: GYPSY DAY ([id number])[facility] ([facility])[address] [place] [address] CBC panel Auto (Bld)on 03-06 Erythrocyte distribution width (RBC) [Ratio] 13.9 % 11.5 - 15.0 % [facility] Hematocrit (Bld) [Volume fraction] 41.8 % 35.0 - 47.0 % [facility] Hemoglobin (Bld) [Mass/Vol] 14.1 g/dL 11.7 - 16.0 g/dL [facility] Interpretation and review of laboratory results Abnormal [facility] MCH (RBC) [Entitic mass] 30.4 pg 26.0 - 34.0 pg [facility] MCHC (RBC) [Mass/Vol] 33.7 % 30.5 - 36.0 % [facility] MCV (RBC) [Entitic vol] 90.1 fL 77.0 - 99.0 fL [facility] Platelet mean volume (Bld) [Entitic vol] 9.8 fL 9.0 - 12.7 fL [facility] Platelets (Bld) [#/Vol] 311 10*3/uL 140 - 440 10*3/uL [facility] RBC (Bld) [#/Vol] 4.64 10*6/uL 3.80 - 5.2 0 10*6/uL [facility] WBC (Bld) [#/Vol] 15.2 10*3/uL High 3.6 - 10.7 10*3/uL [facility] Laboratory - Chemistry and C hemistry - challengeon 09-04-2024 Glucose [Mass/Vol] 229 mg/dL High 70 - 100 mg/dL [facility] Glucose [Mass/Vol] 227 mg/dL High 70 - 100 mg/dL [facility] No Panel Informationon 03-06 Interpretation and review of laboratory results Abnormal [facility] Performed by: [facility], [address] [place] [address] CLIA ID: [id number] [facility] Interpretation and review of laboratory results Abnormal [facility] Performed by: [facility] [email or web address] [facility], [address] [facility] [address] CLIA ID: [id number] [facility] Progress Noteon 03-06-2024 Progress Note ---- -------- Attestation signed by Saumya Mancia MD at 03/06/2024 6:43 PM [facility] Patient a direct admission from Transfer from [place]. Please see my other H&P attestation -------- Department of Obstetrics and Gynecology Labor and Delivery Triage Note CHIEF COMPLAINT: Anyhydramnios HISTORY OF PRESENT ILLNESS: The patient is a 28 y.o. 29w4d. Patient presents with a chief complaint as above and is being admitted for observation and BMZ + Magnesium. Patient reports she has been leaking for 3 weeks now. She was evaluated in [place] initially at that time with amnisure that [...] PROVIDER: Dr. Mancia DISPOSITION: Admit to L&D [facility] URINE CULTUREon 03-06-2024 Bacteria identified Cx Nom (U) URINE CULTURE Reference No growth (<1,000 CFU/mL) [ S = SUSCEPTIBLE R = RESISTANT I = INTERMEDIATE S-DD = Susceptible-dose dependent NS = Non-susceptible NO = No Interpretation ] [facility] Comment on above: Performed By: #### L [id number] ####Fence Maker: GYPSY DAY ([id number])[facility] ([address] Absolute lymphocyte countOrd ered By: Julianna Villareal on 10-25-2023 Lymphocytes Auto (Unsp spec) [#/Vol] 2.65 10*3/uL 0.83-4.51 [facility] Automated lymphocyte count a s percentage of total leukocytesOrdered By: Julianna Villareal on 10-25-2023 Lymphocytes/100 WBC Auto (Unsp spec) 27.5 % 19-41 [facility] Basophil percentageOrdered B y: Julianna Villareal on 10-25-2023 Basophils/100 WBC (Bld) 0.4 % 0-1 [facility] Eosinophils/100 WBC (Bld) 1.6 % 0-5 [facility] Hemoglobin (Bld) [Mass/Vol] 13.4 g/dL 12.0-15.0 [facility] Monocytes/100 WBC (Bld) 7.3 % 0-10 [facility] Neutrophils (Bld) [#/Vol] 6.1 10*3/uL 2.0-7.7 [facility] Neutrophils/100 WBC (Bld) 62.8 % 47-70 [facility] WBC (Bld) [#/Vol] 9.6 10*3/uL 4.4-11.0 [facility] Culture, urineOrdered By: Lul Bauer on 10-25-2023 Bacteria identified Cx Nom (U) Culture exhibits no growth. [facility] Determination of erythrocyte mean corpuscular volume (MCV)Ordered By: Julianna Villareal on 10-25-2023 MCV (RBC) [Entitic vol] 88.4 fL 81-99 [facility] Erythrocyte distribution wid th ratioOrdered By: Julianna Villareal on 10-25-2023 Erythrocyte distribution width (RBC) [Ratio] 13.9 % 11.6-14.6 [facility] Erythrocyte distribution wid th standard deviationOrdered By: Julianna Villareal on 10-25-2023 Erythrocyte distribution width (RBC) [Entitic vol] 44.7 fL 35.1-43.9 [facility] HIV 1 and HIV-2 antibody ass ay with HIV-1 p24 antigen detectionOrdered By: Julianna Villareal on 10-25-2023 HIV 1+2 Ab+HIV1 p24 Ag IA Ql Non-Reactive Nonreactive [facility] Hematocrit Auto (Bld) [Volum e fraction]Ordered By: Julianna Villareal on 10-25-2023 Hematocrit (Bld) [Volume fraction] 40.5 % 37-47 [facility] Immature granulocytes/100 WB C Auto (Bld)Ordered By: Julianna Villareal on 10-25-2023 Immature granulocytes/100 WBC (Bld) 0.400 % 0.0-0.9 [facility] Comment on above: IG% - Immature Granu locytes (promyelocytes, myelocytes and metamyelocytes) > 1% indicates that a LEFT SHIFT is Present. Laboratory - Chemistry and C hemistry - challengeon 10-25-2023 Glucose Ql (U) Negative [facility] Laboratory - Hematology and Cell countsOrdered By: Julianna Villareal on 10-25-2023 MCH (RBC) [Entitic mass] 29.3 pg 27.0-32.0 [facility] MCHC (RBC) [Mass/Vol] 33.1 g/dL 32-36 [facility] Nucleated RBC/100 WBC (Bld) [Ratio] 0 % 0-5 [facility] Platelet mean volume (Bld) [Entitic vol] 8.7 fL 6.2-12.0 [facility] Platelets (Bld) [#/Vol] 286 10*3/uL 150-450 [facility] Laboratory - Urinalysison Protein Ql (U) Negative [facility] No Panel InformationOrdered By: Julianna Villareal on 10-25-2023 Hepatitis B Surface Antigen Non-Reactive Nonreactive [facility] Hepatitis C Antibody Non-Reactive Nonreactive [facility] Comment on above: Non Reactive: < 0.8 Equivocal: >/= 0.8 to < 1.0 Reactive: >/= 1.0The CDC requires that a reactive/equivocal HCV antibody result be sent out for confirmation. HCV Quant by PCR testing. Miscellaneous Test Comment SEE SCANNED REPORT [facility] Rubella IgG Antibody Reactive Nonreactive [facility] Comment on above: Antibody Results Int erpretation of Immune Status Non Reactive Presumed Non-Immune Equivocal Equivocal Reactive Presumed Immune RBC Auto (Bld) [#/Vol]Ordere d By: Julianna Villareal on 10-25-2023 RBC (Bld) [#/Vol] 4.58 10*6/uL 4.2-5.4 [facility] Serum Treponema species anti body detectionOrdered By: Julianna Villareal on 10-25-2023 Treponema sp Ab Ql (S) Non-Reactive [facility] Whole blood hemoglobin A1c/t otal hemoglobin ratio (mass fraction)Ordered By: Venessa Newby on 10-25-2023 HbA1c (Bld) [Mass fraction] 5.1 % 3.8-5.6 [facility] Comment on above: Normal < 5.7 % Predi abetic 5.7 - 6.4 % Diabetic >or= 6.5 % Please note range changes. Cervical or vagninal specime n microscopic examination by cytology stain (reported asOrdered By: Venessa Newby on 10-12-2023 Cytology report Cyto stain Doc (Cvx/Vag) Comment . [facility] Comment on above: The Pap smear [...] rRNA EDUARDO+probe Ql (Unsp spec) Negative Negative [facility] Laboratory - CytologyOrdered By: Venessa Newby on 10-12-2023 Nutrition Aide Cyto stain Nom (Cvx/Vag) [ID] Comment . [facility] Comment on above: Luther Dobson totechnologist (ASCP) Laboratory - Microbiology an d Antimicrobial susceptibilityOrdered By: Julianna Villareal on 10-12-2023 N. gonorrhoeae DNA EDUARDO+probe Ql (Unsp spec) Negative Negative [facility] Comment on above: Performed at: = - [address] [id number] Director: Machelle Ambrocio MD, Phone: [phone] Laboratory - Miscellaneous t estsOrdered By: Venessa Newby on 10-12-2023 Service comment (Unsp spec) [Interp] . . [facility] No Panel InformationOrdered By: Venessa Newby on 10-12-2023 Human Papillomavirus Screen Comment . [facility] Comment on above: The HPV DNA reflex c kathryn were not met with this specimenresult therefore, no HPV testing was performed.Performed at: [facility] [id number] [place], [place] [id number] Director: Washington Calvo MD, Phone: [phone] at: [facility] [id number] Director: Machelle Ambrocio MD, Phone: [phone] Thin prep Papanicolaou smear with manual screeningOrdered By: Venessa Newby on 10-12-2023 Thin prep Papanicolaou smear with manual screening Comment . [facility] Comment on above: NEGATIVE FOR INTRAEP ITHELIAL LESION OR MALIGNANCY. This liquid based Th inPrep(R) pap test was screened withthe use of an image guided system. No Panel InformationOrdered By: Yola Schaffer on 09-29-2023 Estradiol (E2) Level 911.3 pg/mL [facility] Comment on above: NORMAL REFERENCE RAN [...] Schaffer on 09-29-2023 HCG ( [place]) [place]l [address] mIU/mL <4 [facility] Comment on above: hCG levels with Gest ational AgeGestational Age hCG mIU/mL (IU/L)0.2 - 1 week 5 - 501-2 weeks 50 - 5002-3 weeks 100 - 41277-7 weeks 500 - 868305-1 weeks 1000 - 218442-9 weeks 08583 - 100,0006-8 weeks 76707 - 200,0002-3 months 90198 - 100,000 Serum or plasma progesterone measurement (mass/volume)Ordered By: Yola Schaffer on 09-29-2023 Progesterone [Mass/Vol] 51.51 ng/mL See Comment [facility] Comment on above: Progesterone Referen ce Table: UNITS Female: Follicular 0.15 - 1.40 ng/mL Luteal 3.34 - 25.56 ng/mL Mid-luteal 4.44 - 28.03 ng/mL Postmenopausal 0.0 - 0.73 ng/mL : 1st Trimester 11.22 - 90.00 ng/mL 2nd Trimester 25.55 - 89.40 ng/mL 3rd Trimester 48.40 -422.50 ng/mL No Panel InformationOrdered By: Yola Schaffer on 09-22-2023 Estradiol (E2) Level 839.2 pg/mL [facility] Comment on above: NORMAL REFERENCE RAN [...] HCG ( test) Ql 2686 mIU/mL <4 [facility] Comment on above: hCG levels with Gest ational AgeGestational Age hCG mIU/mL (IU/L)0.2 - 1 week 5 - 501-2 weeks 50 - 5002-3 weeks 100 - 34561-4 weeks 500 - 126109-3 weeks 1000 - 817846-4 weeks 29371 - 100,0006-8 weeks 37507 - 200,0002-3 months 65202 - 100,000 Serum or plasma progesterone measurement (mass/volume)Ordered By: Yola Schaffer on 09-22-2023 Progesterone [Mass/Vol] 61.23 ng/mL See Comment [facility] Comment on above: Progesterone Referen ce [...] Auto (Unsp spec) [#/Vol] 2.66 10*3/uL 0.83-4.51 [facility] Automated lymphocyte count a s percentage of total leukocytesOrdered By: Karlos Miller on 09-19-2023 Lymphocytes/100 WBC Auto (Unsp spec) 16.6 % 19-41 [facility] Basophil percentageOrdered B y: Karlos Miller on 09-19-2023 Basophil percentage 0 SEEN /hpf 0-5 [facility] Basophils/100 WBC (Bld) 0.3 % 0-1 [facility] Chloride [Moles/Vol] 106 mmol/L 98-107 [facility] Eosinophils/100 WBC (Bld) 0.2 % 0-5 [facility] Glucose [Mass/Vol] 116 mg/dL 74-106 [facility] Comment on above: Fasting Glucose resu lt from 100 to 125 mg/dL suggests IMPAIRED HOMEOSTASIS per A.D.A. criteria. Hemoglobin (Bld) [Mass/Vol] 13.7 g/dL 12.0-15.0 [facility] Monocytes/100 WBC (Bld) 4.6 % 0-10 [facility] Neutrophils (Bld) [#/Vol] 12.4 10*3/uL 2.0-7.7 [facility] Neutrophils/100 WBC (Bld) 77.7 % 47-70 [facility] Potassium [Moles/Vol] 3.3 mmol/L 3.5-5.1 [facility] Sodium [Moles/Vol] 140 mmol/L 136-145 [facility] WBC (Bld) [#/Vol] 16.0 10*3/uL 4.4-11.0 [facility] Bilirubin Test strip Ql (U)O rdered By: Karlos Miller on 09-19-2023 Bilirubin Ql (U) Negative Negative [facility] Determination of erythrocyte mean corpuscular volume (MCV)Ordered By: Karlos Miller on 09-19-2023 MCV (RBC) [Entitic vol] 90.3 fL 81-99 [facility] Erythrocyte distribution wid th ratioOrdered By: Karlos Miller on 09-19-2023 Erythrocyte distribution width (RBC) [Ratio] 13.7 % 11.6-14.6 [facility] Erythrocyte distribution wid th standard deviationOrdered By: Karlos Miller on 09-19-2023 Erythrocyte distribution width (RBC) [Entitic vol] 45.1 fL 35.1-43.9 [facility] Hematocrit Auto (Bld) [Volum e fraction]Ordered By: Karlos Miller on 09-19-2023 Hematocrit (Bld) [Volume fraction] 42.8 % 37-47 [facility] Immature granulocytes/100 WB C Auto (Bld)Ordered By: Karlos Miller on 09-19-2023 Immature granulocytes/100 WBC (Bld) 0.600 % 0.0-0.9 [facility] Comment on above: IG% - Immature Granu locytes (promyelocytes, myelocytes and metamyelocytes) > 1% indicates that a LEFT SHIFT is Present. Ketones Test strip Ql (U)Ord ered By: Karlos Miller on 09-19-2023 Ketones Ql (U) Negative Negative [facility] Laboratory - Chemistry and C hemistry - challengeOrdered By: Karlos Miller on 09-19-2023 CO2 [Moles/Vol] 23.0 mmol/L 21.0-32.0 [facility] Urea nitrogen/Creatinine [Mass ratio] 12.3 mg/mg 10-20 [facility] Laboratory - Hematology and Cell countsOrdered By: Karlos Miller on 09-19-2023 MCH (RBC) [Entitic mass] 28.9 pg 27.0-32.0 [facility] MCHC (RBC) [Mass/Vol] 32.0 g/dL 32-36 [facility] Nucleated RBC/100 WBC (Bld) [Ratio] 0 % 0-5 [facility] Platelet mean volume (Bld) [Entitic vol] 8.7 fL 6.2-12.0 [facility] Platelets (Bld) [#/Vol] 312 10*3/uL 150-450 [facility] Mucus LM Ql (Urine sed)Order ed By: Karlos Miller on 09-19-2023 Mucus Ql (Urine sed) 0 SEEN /hpf [facility] Nitrite Test strip Ql (U)Ord ered By: Kalros Miller on 09-19-2023 Nitrite Ql (U) Negative Negative [facility] No Panel InformationOrdered By: Karlos Miller on 09-19-2023 Urine RBC 5-10 SEEN /hpf 0-5 [facility] Estimated Creatinine Clearance Calc 126.10 ml/min [facility] Estimated GFR (MDRD) Amer 141 mL/min >60 [facility] Comment on above: GFR Calc Estimated GFR (MDRD) Non-Af Amer 117 mL/min >60 [facility] Comment on above: Non- GFR Calc Protein Test strip Ql (U)Ord ered By: Karlos Miller on 09-19-2023 Protein Ql (U) Negative Negative [facility] RBC Auto (Bld) [#/Vol]Ordere d By: Karlos Miller on 09-19-2023 RBC (Bld) [#/Vol] 4.74 10*6/uL 4.2-5.4 [facility] Serum or plasma calcium shannon urement (mass/volume)Ordered By: Karlos Miller on 09-19-2023 Calcium [Mass/Vol] 8.7 mg/dL 8.5-10.1 [facility] Serum or plasma choriogonado tropin detectionOrdered By: Karlos Miller on 09-19-2023 HCG ( test) Ql 1366 mIU/mL <4 [facility] Comment on above: hCG levels with Gest ational AgeGestational Age hCG mIU/mL (IU/L)0.2 - 1 week 5 - 501-2 weeks 50 - 5002-3 weeks 100 - 28251-3 weeks 500 - 334716-9 weeks 1000 - 279106-6 weeks 02569 - 100,0006-8 weeks 79787 - 200,0002-3 months 11616 - 100,000 Serum or plasma creatinine m easurement (mass/volume)Ordered By: Karlos Miller on 09-19-2023 Creatinine [Mass/Vol] 0.65 mg/dL 0.55-1.02 [facility] Comment on above: The validity of the calculated GFR & GFRAA in patients over 70 years has not been determined. Clinical correlation is essential. Serum or plasma urea nitroge n measurement (mass/volume)Ordered By: Karlos Miller on 09-19-2023 Urea nitrogen [Mass/Vol] 8 mg/dL 7-18 [facility] Squamous epithelial cells de tection in urine sediment by light microscopyOrdered By: Karlos Miller on 09-19-2023 Epithelial cells.squamous LM Ql (Urine sed) 0 SEEN /hpf 5-10 [facility] Thin prep Papanicolaou smear with manual screeningOrdered By: Karlos Miller on 09-19-2023 Thin prep Papanicolaou smear with manual screening 11 5-15 [facility] Urine blood detectionOrdered By: Karlos Miller on 09-19-2023 RBC Ql (U) 50 /ul Negative [facility] Urine clarityOrdered By: Jen Miller on 09-19-2023 Clarity (U) Sl. Cloudy Clear [facility] Urine color determinationOrd ered By: Karlos Miller on 09-19-2023 Color (U) Yellow Yellow [facility] Urine glucose detectionOrder ed By: Karlos Miller on 09-19-2023 Glucose Ql (U) Normal mg/dl Normal [facility] Urine leukocyte esterase det ection by dipstickOrdered By: Karlos Miller on 09-19-2023 Leukocyte esterase Test strip Ql (U) Negative Negative [facility] Urine pHOrdered By: Karlos stanford on 09-19-2023 pH (U) 8.0 [pH] 5.0 - 8.0 [facility] Urine sediment bacteria coun t by microscopy (number/high power field)Ordered By: Karlos Miller on 09-19-2023 Bacteria LM.HPF (Urine sed) [#/Area] 0 /[HPF] None Seen [facility] Urine specific gravity measu rementOrdered By: Karlos Miller on 09-19-2023 Specific gravity (U) [Rel density] 1.010 1.002-1.030 [facility] Urine urobilinogen measureme ntOrdered By: Karlos Miller on 09-19-2023 Urobilinogen Ql (U) Normal mg/dl Normal [facility] No Panel InformationOrdered By: Yola Schaffer on 09-15-2023 Estradiol (E2) Level 998.4 pg/mL [facility] Comment on above: NORMAL REFERENCE RAN GES FEMALE FOLLICULAR 21.4 - 164.8 pg/mL MID-CYCLE PEAK 49.9 - 367.2 pg/mL LUTEAL 40.2 - 259.0 pg/mL POST-MENOPAUSAL ON MHT <11.0 - 462.1 pg/mL NOT ON MHT <11.0 - 58.3 pg/mL MALE <11.0 - 52.5 pg/mL NOTE:[employer] HAS CONFIRMED THE DRUG FULVETRANT (FASLODEX) MAY CAUSE FALSELY ELEVATED ESTRADIOL RESULTS WHEN USING THIS TEST METHOD. IF PATIENT IS TAKING FULVESTRANT AN ALTERNATIVE METHOD SHOULD BE USED TO DETERMINE ESTRADIOL CONCENTRATION. Serum or plasma choriogonado tropin detectionOrdered By: Yola Schaffer on 09-15-2023 HCG ( test) Ql 321 mIU/mL <4 [facility] Comment on above: hCG levels with Gest ational AgeGestational Age hCG mIU/mL (IU/L)0.2 - 1 week 5 - 501-2 weeks 50 - 5002-3 weeks 100 - 90326-3 weeks 500 - 440480-6 weeks 1000 - 478491-4 weeks 71620 - 100,0006-8 weeks 01683 - 200,0002-3 months 69409 - 100,000 Serum or plasma progesterone measurement (mass/volume)Ordered By: Yola Schaffer on 09-15-2023 Progesterone [Mass/Vol] 53.34 ng/mL See Comment [facility] Comment on above: Progesterone Referen ce Table: UNITS Female: Follicular 0.15 - 1.40 ng/mL Luteal 3.34 - 25.56 ng/mL Mid-luteal 4.44 - 28.03 ng/mL Postmenopausal 0.0 - 0.73 ng/mL : 1st Trimester 11.22 - 90.00 ng/mL 2nd Trimester 25.55 - 89.40 ng/mL 3rd Trimester 48.40 -422.50 ng/mL No Panel InformationOrdered By: Yola Schaffer on 09-13-2023 Estradiol (E2) Level 631.1 pg/mL [facility] Comment on above: NORMAL REFERENCE RAN GES FEMALE FOLLICULAR 21.4 - 164.8 pg/mL MID-CYCLE PEAK 49.9 - 367.2 pg/mL LUTEAL 40.2 - 259.0 pg/mL POST-MENOPAUSAL ON MHT <11.0 - 462.1 pg/mL NOT ON MHT <11.0 - 58.3 pg/mL MALE <11.0 - 52.5 pg/mL NOTE:[employer] HAS CONFIRMED THE DRUG FULVETRANT (FASLODEX) MAY CAUSE FALSELY ELEVATED ESTRADIOL RESULTS WHEN USING THIS TEST METHOD. IF PATIENT IS TAKING FULVESTRANT AN ALTERNATIVE METHOD SHOULD BE USED TO DETERMINE ESTRADIOL CONCENTRATION. Serum or plasma choriogonado tropin detectionOrdered By: Yola Schaffer on 09-13-2023 HCG ( test) Ql 142 mIU/mL <4 [facility] Comment on above: hCG levels with Gest ational AgeGestational Age hCG mIU/mL (IU/L)0.2 - 1 week 5 - 501-2 weeks 50 - 5002-3 weeks 100 - 95487-6 weeks 500 - 270248-6 weeks 1000 - 377060-6 weeks 91152 - 100,0006-8 weeks 85714 - 200,0002-3 months 51939 - 100,000 Serum or plasma progesterone measurement (mass/volume)Ordered By: Yola Schaffer on 09-13-2023 Progesterone [Mass/Vol] 68.72 ng/mL See Comment [facility] Comment on above: Progesterone Referen ce [...] on 09-13-2023 TSH Qn 1.89 uIU/mL 0.358-3.74 [facility] Serum or plasma choriogonado tropin detectionOrdered By: Yola Schaffer on 2023 HCG ( test) Ql 86 mIU/mL <4 [facility] Comment on above: hCG levels with Gest ational AgeGestational Age hCG mIU/mL (IU/L)0.2 - 1 week 5 - 501-2 weeks 50 - 5002-3 weeks 100 - 35059-7 weeks 500 - 848387-8 weeks 1000 - 505979-5 weeks 17544 - 100,0006-8 weeks 88491 - 200,0002-3 months 84879 - 100,000 Serum or plasma progesterone measurement (mass/volume)Ordered By: Yola Schaffer on 2023 Progesterone [Mass/Vol] 73.77 ng/mL See Comment [facility] Comment on above: Progesterone Referen ce Table: UNITS Female: Follicular 0.15 - 1.40 ng/mL Luteal 3.34 - 25.56 ng/mL Mid-luteal 4.44 - 28.03 ng/mL Postmenopausal 0.0 - 0.73 ng/mL : 1st Trimester 11.22 - 90.00 ng/mL 2nd Trimester 25.55 - 89.40 ng/mL 3rd Trimester 48.40 -422.50 ng/mL No Panel InformationOrdered By: Yola Schaffer on 09-06-2023 Estradiol (E2) Level 586.2 pg/mL [facility] Comment on above: NORMAL REFERENCE RAN [...] 09-06-2023 Progesterone [Mass/Vol] 66.90 ng/mL See Comment [facility] Comment on above: Progesterone Referen ce Table: UNITS Female: Follicular 0.15 - 1.40 ng/mL Luteal 3.34 - 25.56 ng/mL Mid-luteal 4.44 - 28.03 ng/mL Postmenopausal 0.0 - 0.73 ng/mL : 1st Trimester 11.22 - 90.00 ng/mL 2nd Trimester 25.55 - 89.40 ng/mL 3rd Trimester 48.40 -422.50 ng/mL No Panel InformationOrdered By: Yola Schaffer on 08-25-2023 Estradiol (E2) Level 1350.2 pg/mL [facility] Comment on above: NORMAL REFERENCE RAN GES FEMALE FOLLICULAR 21.4 - 164.8 pg/mL MID-CYCLE PEAK 49.9 - 367.2 pg/mL LUTEAL 40.2 - 259.0 pg/mL POST-MENOPAUSAL ON MHT <11.0 - 462.1 pg/mL NOT ON MHT <11.0 - 58.3 pg/mL MALE <11.0 - 52.5 pg/mL NOTE:[employer] HAS CONFIRMED THE DRUG FULVETRANT (FASLODEX) MAY CAUSE FALSELY ELEVATED ESTRADIOL RESULTS WHEN USING THIS TEST METHOD. IF PATIENT IS TAKING FULVESTRANT AN ALTERNATIVE METHOD SHOULD BE USED TO DETERMINE ESTRADIOL CONCENTRATION. Luteinizing Hormone 11.8 mIU/mL [facility] Comment on above: NORMAL REFERENCE RAN GES FEMALE FOLLICULAR 1.9 - 26.2 mIU/mL MID-CYCLE PEAK 22.8 - 76.1 mIU/mL LUTEAL 0.6 - 16.6 mIU/mL POST-MENOPAUSAL ON MHT 1.1 - 52.4 mIU/mL NOT ON MHT 8.6 - 61.8 mIU/mL MALE 1.2 - 10.6 mIU/mL Serum or plasma progesterone measurement (mass/volume)Ordered By: Yola Schaffer on 08-25-2023 Progesterone [Mass/Vol] 0.27 ng/mL See Comment [facility] Comment on above: Progesterone Referen ce Table: UNITS Female: Follicular 0.15 - 1.40 ng/mL Luteal 3.34 - 25.56 ng/mL Mid-luteal 4.44 - 28.03 ng/mL Postmenopausal 0.0 - 0.73 ng/mL : 1st Trimester 11.22 - 90.00 ng/mL 2nd Trimester 25.55 - 89.40 ng/mL 3rd Trimester 48.40 -422.50 ng/mL No Panel InformationOrdered By: Yola Schaffer on 08-23-2023 Estradiol (E2) Level 104.4 pg/mL [facility] Comment on above: NORMAL REFERENCE RAN GES FEMALE FOLLICULAR 21.4 - 164.8 pg/mL MID-CYCLE PEAK 49.9 - 367.2 pg/mL LUTEAL 40.2 - 259.0 pg/mL POST-MENOPAUSAL ON MHT <11.0 - 462.1 pg/mL NOT ON MHT <11.0 - 58.3 pg/mL MALE <11.0 - 52.5 pg/mL NOTE:[employer] HAS CONFIRMED THE DRUG FULVETRANT (FASLODEX) MAY CAUSE FALSELY ELEVATED ESTRADIOL RESULTS WHEN USING THIS TEST METHOD. IF PATIENT IS TAKING FULVESTRANT AN ALTERNATIVE METHOD SHOULD BE USED TO DETERMINE ESTRADIOL CONCENTRATION. Luteinizing Hormone 7.7 mIU/mL [facility] Comment on above: NORMAL REFERENCE RAN GES FEMALE FOLLICULAR 1.9 - 26.2 mIU/mL MID-CYCLE PEAK 22.8 - 76.1 mIU/mL LUTEAL 0.6 - 16.6 mIU/mL POST-MENOPAUSAL ON MHT 1.1 - 52.4 mIU/mL NOT ON MHT 8.6 - 61.8 mIU/mL MALE 1.2 - 10.6 mIU/mL Serum or plasma progesterone measurement (mass/volume)Ordered By: Yola Schaffer on 08-23-2023 Progesterone [Mass/Vol] ng/mL See Comment [facility] Comment on above: Progesterone Referen ce Table: UNITS Female: Follicular 0.15 - 1.40 ng/mL Luteal 3.34 - 25.56 ng/mL Mid-luteal 4.44 - 28.03 ng/mL Postmenopausal 0.0 - 0.73 ng/mL : 1st Trimester 11.22 - 90.00 ng/mL 2nd Trimester 25.55 - 89.40 ng/mL 3rd Trimester 48.40 -422.50 ng/mL No Panel InformationOrdered By: Yola Schaffer on 08-21-2023 Estradiol (E2) Level 30.4 pg/mL [facility] Comment on above: NORMAL REFERENCE RAN [...] DETERMINE ESTRADIOL CONCENTRATION. Luteinizing Hormone 21.7 mIU/mL [facility] Comment on above: NORMAL REFERENCE RAN GES FEMALE FOLLICULAR 1.9 - 26.2 mIU/mL MID-CYCLE PEAK 22.8 - 76.1 mIU/mL LUTEAL 0.6 - 16.6 mIU/mL POST-MENOPAUSAL ON MHT 1.1 - 52.4 mIU/mL NOT ON MHT 8.6 - 61.8 mIU/mL MALE 1.2 - 10.6 mIU/mL Serum or plasma progesterone measurement (mass/volume)Ordered By: Yola Schaffer on 08-21-2023 Progesterone [Mass/Vol] ng/mL See Comment [facility] Comment on above: Progesterone Referen ce Table: UNITS Female: Follicular 0.15 - 1.40 ng/mL Luteal 3.34 - 25.56 ng/mL Mid-luteal 4.44 - 28.03 ng/mL Postmenopausal 0.0 - 0.73 ng/mL : 1st Trimester 11.22 - 90.00 ng/mL 2nd Trimester 25.55 - 89.40 ng/mL 3rd Trimester 48.40 -422.50 ng/mL No Panel InformationOrdered By: Yola Schaffer on 08-15-2023 Estradiol (E2) Level 42.6 pg/mL [facility] Comment on above: NORMAL REFERENCE RAN [...] ESTRADIOL CONCENTRATION. Follicle Stimulating Hormone 5.0 mIU/mL [facility] Comment on above: NORMAL REFERENCE RAN GES FEMALE FOLLICULAR 2.3 - 12.6 mIU/mL MID-CYCLE PEAK 5.2 - 17.5 mIU/mL LUTEAL 1.7 - 12.9 mIU/mL POST-MENOPAUSAL ON MHT 5.9 - 72.8 mIU/mL NOT ON MHT 12.7 - 132.2 mlU/mL MALE 0.7 - 10.8 mIU/mL Luteinizing Hormone 4.9 mIU/mL [facility] Comment on above: NORMAL REFERENCE RAN GES FEMALE FOLLICULAR 1.9 - 26.2 mIU/mL MID-CYCLE PEAK 22.8 - 76.1 mIU/mL LUTEAL 0.6 - 16.6 mIU/mL POST-MENOPAUSAL ON MHT 1.1 - 52.4 mIU/mL NOT ON MHT 8.6 - 61.8 mIU/mL MALE 1.2 - 10.6 mIU/mL Serum or plasma progesterone measurement (mass/volume)Ordered By: Yola Schaffer on 08-15-2023 Progesterone [Mass/Vol] 0.21 ng/mL See Comment [facility] Comment on above: Progesterone Referen ce [...] on 08-15-2023 TSH Qn 2.46 uIU/mL 0.358-3.74 [facility] No Panel InformationOrdered By: Yola Schaffer on 08-07-2023 Estradiol (E2) Level 268.0 pg/mL [facility] Comment on above: NORMAL REFERENCE RAN [...] HCG ( test) Ql 13 mIU/mL <4 [facility] Comment on above: hCG levels with Gest ational AgeGestational Age hCG mIU/mL (IU/L)0.2 - 1 week 5 - 501-2 weeks 50 - 5002-3 weeks 100 - 55691-2 weeks 500 - 148250-3 weeks 1000 - 000060-2 weeks 25773 - 100,0006-8 weeks 39111 - 200,0002-3 months 78326 - 100,000 Serum or plasma progesterone measurement (mass/volume)Ordered By: Yola Schaffer on 08-07-2023 Progesterone [Mass/Vol] 41.43 ng/mL See Comment [facility] Comment on above: Progesterone Referen ce [...] on 08-05-2023 E2 IA [Moles/Vol] 276.2 pg/mL [facility] Comment on above: NORMAL REFERENCE RAN GES [...] HCG ( test) Ql 31 mIU/mL <4 [facility] Comment on above: hCG levels with Gest ational AgeGestational Age hCG mIU/mL (IU/L)0.2 - 1 week 5 - 501-2 weeks 50 - 5002-3 weeks 100 - 81466-8 weeks 500 - 872024-9 weeks 1000 - 671611-6 weeks 50839 - 100,0006-8 weeks 02391 - 200,0002-3 months 24597 - 100,000 Serum or plasma progesterone measurement (mass/volume)Ordered By: Yola Schaffer on 08-05-2023 Progesterone [Mass/Vol] 53.90 ng/mL See Comment [facility] Comment on above: Progesterone Referen ce [...] on 08-05-2023 TSH Qn 2.49 uIU/mL 0.358-3.74 [facility] Serum or plasma choriogonado tropin detectionOrdered By: Yola Schaffer on 08-03-2023 HCG ( test) Ql 36 mIU/mL <4 [facility] Comment on above: hCG levels with Gest ational AgeGestational Age hCG mIU/mL (IU/L)0.2 - 1 week 5 - 501-2 weeks 50 - 5002-3 weeks 100 - 50612-6 weeks 500 - 899586-7 weeks 1000 - 094411-1 weeks 14552 - 100,0006-8 weeks 10340 - 200,0002-3 months 78660 - 100,000 Serum or plasma progesterone measurement (mass/volume)Ordered By: Yola Schaffer on 08-03-2023 Progesterone [Mass/Vol] 49.44 ng/mL See Comment [facility] Comment on above: Progesterone Referen ce Table: UNITS Female: Follicular 0.15 - 1.40 ng/mL Luteal 3.34 - 25.56 ng/mL Mid-luteal 4.44 - 28.03 ng/mL Postmenopausal 0.0 - 0.73 ng/mL : 1st Trimester 11.22 - 90.00 ng/mL 2nd Trimester 25.55 - 89.40 ng/mL 3rd Trimester 48.40 -422.50 ng/mL Estradiol measurementOrdered By: Yola Schaffer on 07-29-2023 E2 IA [Moles/Vol] 279.0 pg/mL [facility] Comment on above: NORMAL REFERENCE RAN GES [...] 07-29-2023 Progesterone [Mass/Vol] 54.70 ng/mL See Comment [facility] Comment on above: Progesterone Referen ce Table: UNITS Female: Follicular 0.15 - 1.40 ng/mL Luteal 3.34 - 25.56 ng/mL Mid-luteal 4.44 - 28.03 ng/mL Postmenopausal 0.0 - 0.73 ng/mL : 1st Trimester 11.22 - 90.00 ng/mL 2nd Trimester 25.55 - 89.40 ng/mL 3rd Trimester 48.40 -422.50 ng/mL ANTI MULLERIAN HORMONEon Mullerian inhibiting substance [Mass/Vol] 4.43 ng/mL Normal 0.89-9.85 [facility] Comment on above: Order Comment: Speci men Type: BLOOD SPECIMEN Ordering Facility: [facility] Address: [address] [place] [address] Performed By: #### 2 842-3, AMINAH, 40040-6, 79343-2, 5195-3, 24405-3, TISH, 10441-0 #### [facility] CLIA [id number] [address] [address] [place] HBV surface Ag Ser Qlon HBV surface Ag Ql (S) Negative Normal Negative [facility] Comment on above: Order Comment: Speci men Type: BLOOD SPECIMEN Ordering Facility: [facility] Address: [address] [place] [address] Performed By: #### 2 842-3, AMINAH, 31738-0, 52190-6, 5195-3, 98799-4, WINSTON, 44995-9 #### [facility] CLIA [id number] [address] [place] HCV Ab Ser Qlon 05-03-2023 HCV Ab Ql (S) Negative Normal Negative [facility] Comment on above: Order Comment: Rhina dowd Type: BLOOD SPECIMEN Ordering Facility: [facility] [place] [address] Result Comment: The result suggests no evidence of active infection with Hepatitis C virus. Should recent infection be suspected, repeat testing may be considered 4-6 weeks after this draw. Performed By: #### 2 842-3, AMINAH, 85985-1, 20678-7, 5195-3, 89754-1, TISH, 28317-0 #### [facility] CLIA [id number] [address] [place] [address] [place] HbA1c (Bld)on 05-03-2023 Average glucose Estimated from glycated hemoglobin (Bld) [Mass/Vol] 97 mg/dL Normal [facility] Comment on above: Order Comment: Rhina dowd Type: BLOOD SPECIMEN Ordering Facility: [facility] Address: [address] [place] [address] Result Comment: eAG: (Estimated average glucose) is a calculated value from HgbA1c and is sales service representative of the average blood glucose level in the last 2-3 month period. Performed By: #### 2 842-3, AMINAH, 05759-9, 11982-9, 5195-3, 55853-4, TISH, 42642-2 #### [facility] CLIA [id number] [facility] [place] [id number] [place] HbA1c (Bld) [Mass fraction] 5.0 % Normal 4.3-5.6 [facility] Comment on above: Order Comment: Rhina dowd Type: BLOOD SPECIMEN Ordering Facility: [facility] Address: [address] [place], [place] [id number] Result Comment: Amer [place] Diabetes Association guidelines indicate that patients with HgbA1c in the range 5.7-6.4% are at increased risk for development of diabetes, and intervention by lifestyle modification may be beneficial. HgbA1c greater or equal to 6.5% is considered diagnostic of diabetes. Performed By: #### 2 842-3, AMINAH, 28357-6, 11970-5, 5195-3, 91028-5, TISH, 64728-1 #### [facility] CLIA [id number] [address] [place] [id number] [place] Prolactin SerPl-mCncon 05-03 Prolactin [Mass/Vol] 10.1 ng/mL Normal 4.5-26.8 [facility] Comment on above: Order Comment: Specdarcy dowd Type: BLOOD SPECIMEN Ordering Facility: [facility] Address: [facility] [place] [address] Result Comment: Prol actin test is performed using the [employer] Electrochemiluminescence Immunoassay method. Results obtained with different methods or kits cannot be used interchangeably. Performed By: #### 2 842-3, AMINAH, 66002-6, 84984-2, 51953, 34185-8, TISH, #### [facility] CLIA [id number] [address] [place] [address] [place] RPR Ser Qlon 05-03-2023 Reagin Ab RPR Ql (S) Non-Reactive Normal Nonreactive C [facility] Comment on above: Order Comment: Rhina dowd Type: BLOOD SPECIMEN Ordering Facility: [facility] Address: [facility] [place] [address] Result Comment: Rapi d plasma reagin (RPR) test detects non-treponemal antibodies. RPR may be reactive in a variety of infectious and non-infectious conditions. Correlation with clinical picture and with treponemal antibody results is required for final interpretation. Performed By: #### 2 842-3, AMINAH, 28694-0, 86896-4, 5195-3, 45728-4, TISH, 86681-8 #### [facility] CLIA [id number] [address] [place] [id number] [place] RUBELLA IGG ABon 05-03-2023 RUBELLA IGG AB, QUAL Positive Normal Positive [facility] Comment on above: Order Comment: Speci men Type: BLOOD SPECIMEN Ordering Facility: [facility] Address: [facility] [place] [address] Result Comment: The result suggests recent or past exposure to Rubella virus or history of Rubella vaccination. Positive result may also be seen due to presence of passively-transferred antibodies. Please correlate with patient's history. Performed By: #### 2 842-3, RUBKEE, 78958-2, 63557-7, 5195-3, 92336-3, TISH, 17984-5 #### [facility] CLIA [id number] [address] [place] [address] [place] Reagin and Treponema pallidu m IgG and IgM [Interp]on 05-03-2023 T. pallidum IgG+IgM IA Ql (S) Non-Reactive Normal Nonreactive [facility] Comment on above: Order Comment: Speci [facility] Type: BLOOD SPECIMEN Ordering Facility: [facility] Address: [facility] [place] [address] Performed By: #### 2 842-3, RUBDOMINIKG, 34634-3, 43033-7, 5-3, 97499-2, TISH, 86144-6 #### [facility] CLIA [id number] [address] [place] [address] [place] Reagin+T pallidum IgG+IgM Se rPl-Impon 05-03-2023 Reagin and Treponema pallidum IgG and IgM [Interp] Cannot exclude recent Treponemal infection if specimen collected within 7-10 days after appearance of suspect lesions or 2-3 weeks after an exposure. Clinical correlation is required. Normal [facility] Comment on above: Order Comment: [facility] Type: BLOOD SPECIMEN Ordering Facility: [facility] Address: [facility] [place] [address] Performed By: #### 2 842-3, RUBIGG, 84892-9, 69479-7, 5195-3, 53845-5, WINSTON, 55032-9 #### [facility] CLIA [id number] [address] [place] [address] [place] Serum or plasma progesterone measurement (mass/volume)Ordered By: Julianna Villareal on 03-07-2023 Progesterone [Mass/Vol] 9.21 ng/mL See Comment [facility] Comment on above: Progesterone Referen ce [...] 01-20-2023 Progesterone [Mass/Vol] 0.63 ng/mL See Comment [facility] Comment on above: Progesterone Referen ce [...] Villareal on 01-20-2023 Prolactin [Mass/Vol] 16.0 ng/mL [facility] Comment on above: NORMAL REFERENCE RAN GES FEMALE NON- 2.2 - 30.3 ng/mL 8.1 - 347.6 ng/mL POST-MENOPAUSAL 0.7 - 31.5 ng/mL MALE 2.5 - 17.4 ng/mL Basophil percentageOrdered B y: Dr. Villareal on 12-02-2022 WBC (Bld) [#/Vol] 4.8 10*3/uL 4.4-11.0 [facility] Blood erythrocytes count (nu mber/volume)Ordered By: Dr. Villareal on 12-02-2022 RBC (Bld) [#/Vol] 4.63 10*6/uL 4.2-5.4 [facility] Blood hemoglobin measurement (mass/volume)Ordered By: Dr. Villareal on 12-02-2022 Hemoglobin (Bld) [Mass/Vol] 13.6 g/dL 12.0-15.0 [facility] Blood platelet mean volumeOr dered By: Dr. Villareal on 12-02-2022 Platelet mean volume (Bld) [Entitic vol] 9.5 fL 6.2-12.0 [facility] Determination of erythrocyte mean corpuscular volume (MCV)Ordered By: Dr. Villareal on 12-02-2022 MCV (RBC) [Entitic vol] 86.6 fL 81-99 [facility] Hematocrit Auto (Bld) [Volum e fraction]Ordered By: Dr. Villareal on 12-02-2022 Hematocrit (Bld) [Volume fraction] 40.1 % 37-47 [facility] Laboratory - Chemistry and C hemistry - challengeOrdered By: Dr. Villareal on 12-02-2022 Free T4 [Mass/Vol] 1.05 ng/dL 0.76-1.46 [facility] HCG ( test) Ql (U) Negative [facility] Comment on above: Very dilute urine sp ecimens, as indicated by a low specificgravity, may not contain sales service representative levels of hCG. If is still suspected, a first morning urinespecimen should be collected 48 hours later and tested. Laboratory - Hematology and Cell countsOrdered By: Dr. Villareal on 12-02-2022 Erythrocyte distribution width (RBC) [Entitic vol] 41.8 fL 35.1-43.9 [facility] Erythrocyte distribution width (RBC) [Ratio] 13.3 % 11.6-14.6 [facility] MCH (RBC) [Entitic mass] 29.4 pg 27.0-32.0 [facility] MCHC Auto (RBC) [Mass/Vol]Or dered By: Dr. Villareal on 12-02-2022 MCHC (RBC) [Mass/Vol] 33.9 g/dL 32-36 [facility] No Panel InformationOrdered By: Dr. Villareal on 12-02-2022 Thyroid Stimulating Hormone (TSH) 0.95 uIU/mL 0.358-3.74 [facility] Platelets bldOrdered By: Dr. Villareal on 12-02-2022 Platelets (Bld) [#/Vol] 259 10*3/uL 150-450 [facility] Cervical or vagninal specime n microscopic examination by cytology stain (reported asOrdered By: Dr. Villareal on 10-14-2022 Cytology report Cyto stain Doc (Cvx/Vag) Comment . [facility] Comment on above: The Pap smear is a s creening test designed to aid in thedetection of premalignant and malignant conditions of theuterine cervix. It is not a diagnostic procedure andshould not be used as the sole means of detecting cervicalcancer. Both false-positive and false-negative reports dooccur. Laboratory - CytologyOrdered By: Dr. Villareal on 10-14-2022 Nutrition Aide Cyto stain Nom (Cvx/Vag) [ID] Comment . [facility] Comment on above: Katherine Brennan, Cytot echnologist (ASCP) Laboratory - Miscellaneous t estsOrdered By: Dr. Villareal on 10-14-2022 Service comment (Unsp spec) [Interp] Comment . [facility] Comment on above: This liquid based Th inPrep(R) pap test was screened withthe use of an image guided system. Service comment (Unsp spec) [Interp] . . [facility] No Panel InformationOrdered By: Dr. Villareal on 10-14-2022 Human Papillomavirus Screen Comment . [facility] Comment on above: The HPV DNA reflex c kathryn were not met with this specimenresult therefore, no HPV testing was performed.Performed at: [address] [id number] Director: Machelle Ambrocio MD, Phone: [phone] Pathology report final diagnosis Narrative Comment . [facility] Comment on above: NEGATIVE FOR INTRAEP ITHELIAL LESION OR MALIGNANCY. Laboratory - Hematology and Cell countsOrdered By: Chin Edge on 09-27-2022 HbA1c (Bld) [Mass fraction] 5.3 % Normal 4.6 - 7.1 % [facility] Absolute lymphocyte counton 04-08-2022 Lymphocytes Auto (Unsp spec) [#/Vol] 3.46 10*3/uL 0.83-4.51 [facility] Work Phone: Basophil percentageon 2021 Basophils/100 WBC (Bld) 0.3 % 0-1 [facility] Work Phone: Eosinophils/100 WBC (Bld) 2.2 % 0-5 [facility] Work Phone: Neutrophils (Bld) [#/Vol] 4.8 10*3/uL 2.0-7.7 [facility] Work Phone: Neutrophils/100 WBC (Bld) 52.8 % 47-70 [facility] Work Phone: WBC (Bld) [#/Vol] 9.0 10*3/uL 4.4-11.0 [facility] Work Phone: Beta hCG serum qualon 2021 Beta HCG ( test) Ql Negative [facility] Work Phone: Blood erythrocytes count (nu mber/volume)on 04-08-2022 RBC (Bld) [#/Vol] 4.52 10*6/uL 4.2-5.4 [facility] Work Phone: Blood hemoglobin measurement (mass/volume)on 04-08-2022 Hemoglobin (Bld) [Mass/Vol] 13.1 g/dL 12.0-15.0 [facility] Work Phone: Blood lymphocytes/100 leukoc yteson 04-08-2022 Lymphocytes/100 WBC (Bld) 38.4 % 19-41 [facility] Work Phone: Blood monocytes/100 leukocyt eson 04-08-2022 Monocytes/100 WBC (Bld) 6.1 % 0-10 [facility] Work Phone: Blood platelet mean volumeon 04-08-2022 Platelet mean volume (Bld) [Entitic vol] 9.2 fL 6.2-12.0 [facility] Work Phone: Determination of erythrocyte mean corpuscular volume (MCV)on 04-08-2022 MCV (RBC) [Entitic vol] 88.9 fL 81-99 [facility] Work Phone: [phone] Hematocrit Auto (Bld) [Volum e fraction]on 04-08-2022 Hematocrit (Bld) [Volume fraction] 40.2 % 37-47 [facility] Work Phone: [phone] Laboratory - Hematology and Cell countson 04-08-2022 Erythrocyte distribution width (RBC) [Entitic vol] 41.5 fL 35.1-43.9 [facility] Work Phone: [phone] Erythrocyte distribution width (RBC) [Ratio] 12.7 % 11.6-14.6 [facility] Work Phone: [phone] Immature granulocytes/100 WBC (Bld) 0.200 % 0.0-0.9 [facility] Work Phone: [phone] Comment on above: IG% - Immature Granu locytes (promyelocytes, myelocytes and metamyelocytes) > 1% indicates that a LEFT SHIFT is Present. MCH (RBC) [Entitic mass] 29.0 pg 27.0-32.0 [facility] Work Phone: [phone] Nucleated RBC/100 WBC (Bld) [Ratio] 0 % 0-5 [facility] Work Phone: [phone] MCHC Auto (RBC) [Mass/Vol]on 04-08-2022 MCHC (RBC) [Mass/Vol] 32.6 g/dL 32-36 [facility] Work Phone: [phone] Platelets bldon 04-08-2022 Platelets (Bld) [#/Vol] 300 10*3/uL 150-450 [facility] Work Phone: [phone] T3, FREEon 08-04-2021 Free T3 [Mass/Vol] 3.2 pg/mL Normal 2.3-4.2 [facility] Comment on above: Performed By: #### 8 37, 26736, 3147 #### [facility] [address], [address] [place] [address] Fence Maker: Donald Robert MD T4, FREEon 08-04-2021 Free T4 [Mass/Vol] 1.1 ng/dL Normal 0.8-1.8 [facility] Comment on above: Performed By: #### 8 66, 12699, 5081 #### [facility] [address] [facility], [address] Fence Maker: Donald Robert MD THYROID PEROXIDASE ANTIBODIE Son 08-04-2021 THYROID PEROXIDASE ANTIBODIES 1 IU/mL Normal <9 [facility] Comment on above: Performed By: #### 8 66, 17457, 5081 #### [facility] [address] [facility], [address] [place] [address] Fence Maker: Donald Robert MD Laboratory - Chemistry and C hemistry - challengeon 08-03-2021 Free T3 [Mass/Vol] 3.2 pg/mL Normal 2.3 - 4.2 pg/mL [facility], [employer], [employer] Free T4 [Mass/Vol] 1.1 ng/dL Normal 0.8 - 1.8 ng/dL [employer], [facility].; [employer], [employer] No Panel Informationon 08-03 THYROID PEROXIDASE ANTIBODIES 1 {IU/mL} Normal [facility].; [employer], [employer] Laboratory - Microbiology an d Antimicrobial susceptibilityon 05-13-2021 S. pyogenes Ag EIA Ql (Throat) Negative Normal [employer] Vital Signs Date Time Vital Sign Value Performing Clinician Facility 03-06-2025 14:35-0400 Body height 157.48 cm Marco LUNA Work Phone: [facility] 03-06-2025 14:35-0400 Body mass index (BMI) [Ratio] 31.1 kg/m2 Marco LUNA Work Phone: [facility] 03-06-2025 14:35-0400 Body weight 77.28 kg Marco LUNA Work Phone: [facility] 03-06-2025 14:35-0400 Diastolic blood pressure 80 mm[Hg] Marco Melvin PA Work Phone: [facility] 03-06-2025 14:35-0400 Systolic blood pressure 110 mm[Hg] Marco Melvin PA Work Phone: [facility] 10-14-2024 21:58-0400 Body temperature 98.2 [degF] Marco Melvin PA Work Phone: [facility] 10-14-2024 21:58-0400 Diastolic blood pressure 87 mm[Hg] Marco Melvin PA Work Phone: [phone] [place] [address] 10-14-2024 21:58-0400 Heart rate 68 /min Marco Melvin PA Work Phone: [phone] [place] [address] 10-14-2024 21:58-0400 Respiratory rate 12 /min Marco Melvin PA Work Phone: [phone] [place] [address] 10-14-2024 21:58-0400 SaO2% (BldA) [Mass fraction] 100 % Marco Melvin PA Work Phone: [phone] [place] [address] 10-14-2024 21:58-0400 Systolic blood pressure 110 mm[Hg] Marco Melvin PA Work Phone: [phone] [place] [address] 10-14-2024 18:26-0400 Body height 157.48 cm Marco Melvin PA Work Phone: [phone] [place] [address] 10-14-2024 18:26-0400 Body mass index (BMI) [Ratio] 33.9 kg/m2 Marco Melvin PA Work Phone: [facility] 10-14-2024 18:26-0400 Body weight 84.09 kg Marco Melvin PA Work Phone: [facility] 10-13-2024 09:42-0400 Diastolic blood pressure 64 mm[Hg] Barak Covarrubias MD Work Phone: [facility] 10-13-2024 09:42-0400 Heart rate 90 /min Barak Covarrubias MD Work Phone: [facility] 10-13-2024 09:42-0400 SaO2% (BldA) [Mass fraction] 100 % Barak Covarrubias MD Work Phone: [facility] 10-13-2024 09:42-0400 Systolic blood pressure 103 mm[Hg] Barak Covarrubias MD Work Phone: [facility] 10-13-2024 06:25-0400 Body mass index (BMI) [Ratio] 34.4 kg/m2 Barak Covarrubias MD Work Phone: [facility] 10-13-2024 06:25-0400 Body weight 85.32 kg Barak Covarrubias MD Work Phone: [facility] 10-13-2024 05:31-0400 Body temperature 98.01 [degF] Barak Covarrubias MD Work Phone: [facility] 10-13-2024 05:31-0400 Respiratory rate 17 /min Barak Covarrubias MD Work Phone: [facility] 10-12-2024 03:37-0400 Body height 157.5 cm Barak Covarrubias MD Work Phone: [facility] 10-12-2024 01:59-0400 Body temperature 98.2 [degF] Marco Melvin PA Work Phone: [facility] 10-12-2024 01:59-0400 Diastolic blood pressure 73 mm[Hg] Marco Melvin PA Work Phone: [facility] 10-12-2024 01:59-0400 Heart rate 94 /min Marco Melvin PA Work Phone: [facility] 10-12-2024 01:59-0400 Respiratory rate 21 /min Marco Melvin PA Work Phone: [facility] 10-12-2024 01:59-0400 SaO2% (BldA) [Mass fraction] 96 % Marco Melvin PA Work Phone: [facility] 10-12-2024 01:59-0400 Systolic blood pressure 110 mm[Hg] Marco Melvin PA Work Phone: [facility] 10-11-2024 20:53-0400 Body height 157.48 cm Marco Melvin PA Work Phone: [facility] 10-11-2024 20:53-0400 Body mass index (BMI) [Ratio] 34.2 kg/m2 Marco Melvin PA Work Phone: [facility] 10-11-2024 20:53-0400 Body weight 84.82 kg Marco Melvin PA Work Phone: [facility] 06-19-2024 09:41-0500 Body mass index (BMI) [Ratio] 32.1 kg/m2 Marco Melvin PA Work Phone: [facility] 06-19-2024 09:41-0500 Body weight 79.83 kg Marco Melvin PA Work Phone: [facility] 06-19-2024 09:41-0500 Diastolic blood pressure 79 mm[Hg] Marco Melvin PA Work Phone: [facility] 06-19-2024 09:41-0500 Systolic blood pressure 119 mm[Hg] Marco Melvin PA Work Phone: [facility] 03-17-2024 08:30-0400 Body temperature 98.01 [degF] Rand Hallman MD Work Phone: [facility] 03-17-2024 08:30-0400 Diastolic blood pressure 74 mm[Hg] Rand Hallman MD Work Phone: [facility] 03-17-2024 08:30-0400 Heart rate 86 /min Rand Hallman MD Work Phone: [facility] 03-17-2024 08:30-0400 Respiratory rate 16 /min Rand Hallman MD Work Phone: [facility] 03-17-2024 08:30-0400 SaO2% (BldA) [Mass fraction] 99 % Rand Hallman MD Work Phone: [facility] 03-17-2024 08:30-0400 Systolic blood pressure 109 mm[Hg] Rand Hallman MD Work Phone: [facility] 03-10-2024 07:30-0400 Body height 157.5 cm Rand Hallman MD Work Phone: [facility] 03-06-2024 16:49-0400 Body mass index (BMI) [Ratio] 34.39 kg/m2 Rand Hallman MD Work Phone: [facility] 03-06-2024 16:49-0400 Body weight 85.28 kg Rand Hallman MD Work Phone: [facility] 01-18-2024 15:39-0400 Body height 156.84 cm Natalie Hopkins MA [facility], [facility].; [facility]. 01-18-2024 15:39-0400 Body mass index (BMI) [Ratio] 35.22 kg/m2 Natalie Hopkins MA [facility], [facility].; [employer] [facility], [facility]. 01-18-2024 15:39-0400 Body surface area Derived from formula 1.87 m2 Natalie Hopkins MA [facility], [facility].; [employer] [facility], [facility]. 01-18-2024 15:39-0400 Body weight 86.64 kg Natalie Hopkins MA [facility], [facility].; [facility]. 01-18-2024 15:39-0400 Diastolic blood pressure 75 mm[Hg] Natalie Hopkins [facility].; [employer] [facility]. Comment on above: Patient Position: Sitting; Cuff Location : Left Arm; Cuff Size: Standard 01-18-2024 15:39-0400 Heart rate 96 /min Natalie Hopkins MA [facility], [facility].; [employer] [facility]. Comment on above: Pattern: Regular 01-18-2024 15:39-0400 Systolic blood pressure 112 mm[Hg] Natalie Hopkins [facility].; [employer] [facility]. Comment on above: Patient Position: Sitting; Cuff Location : Left Arm; Cuff Size: Standard 10-25-2023 08:23-0400 Body height 157.48 cm PA Marco Melvin Work Phone: [facility] 10-25-2023 08:23-0400 Body mass index (BMI) [Ratio] 32.9 kg/m2 PA Marco Melvin Work Phone: [facility] 10-25-2023 08:23-0400 Body weight 81.64 kg PA Marco Melvin Work Phone: [facility] 10-25-2023 08:23-0400 Diastolic blood pressure 84 mm[Hg] PA Marco Melvin Work Phone: [facility] 10-25-2023 08:23-0400 Systolic blood pressure 118 mm[Hg] PA Marco Melvin Work Phone: [facility] 10-12-2023 14:55-0400 Body mass index (BMI) [Ratio] 32.4 kg/m2 PA Marco Melvin Work Phone: [facility] 10-12-2023 14:55-0400 Body weight 80.51 kg PA Marco Melvin Work Phone: [phone] [place] [address] 10-12-2023 14:55-0400 Diastolic blood pressure 85 mm[Hg] PA Marco Melvin Work Phone: [facility] 10-12-2023 14:55-0400 Systolic blood pressure 118 mm[Hg] PA Marco Melvin Work Phone: [facility] 09-19-2023 16:39-0400 Body temperature 97.6 [degF] PA Marco Melvin Work Phone: [facility] 09-19-2023 16:39-0400 Diastolic blood pressure 82 mm[Hg] PA Marco Melvin Work Phone: [facility] 09-19-2023 16:39-0400 Heart rate 76 /min PA Marco Melvin Work Phone: [facility] 09-19-2023 16:39-0400 Respiratory rate 15 /min PA Marco Melvin Work Phone: [facility] 09-19-2023 16:39-0400 SaO2% (BldA) [Mass fraction] 99 % PA Marco Melvin Work Phone: [facility] 09-19-2023 16:39-0400 Systolic blood pressure 129 mm[Hg] PA Marco Melvin Work Phone: [facility] 09-19-2023 12:14-0400 Body height 157.48 cm PA Marco Melvin Work Phone: [facility] 09-19-2023 12:14-0400 Body mass index (BMI) [Ratio] 31.1 kg/m2 PA Marco Melvin Work Phone: [facility] 09-19-2023 12:14-0400 Body weight 77.11 kg PA Marco Melvin Work Phone: [facility] 09-08-2023 13:11-0500 Body height 157.48 cm PA Marco Melvin Work Phone: [facility] 09-08-2023 13:10-0500 Body mass index (BMI) [Ratio] 31.4 kg/m2 PA Marco Melvin Work Phone: [facility] 09-08-2023 13:10-0500 Body weight 78.01 kg PA Marco Melvin Work Phone: [facility] 09-08-2023 13:10-0500 Diastolic blood pressure 88 mm[Hg] PA Marco Melvin Work Phone: [facility] 09-08-2023 13:10-0500 Systolic blood pressure 123 mm[Hg] PA Marco Melvin Work Phone: [facility] 02-15-2023 15:45-0400 Body height 156.84 cm Chelsea Paez MA [facility], [facility].; [facility], [facility]. 02-15-2023 15:45-0400 Body mass index (BMI) [Ratio] 28.6 kg/m2 Chelsea Paez MA [facility].; [facility]. 02-15-2023 15:45-0400 Body surface area Derived from formula 1.71 m2 Chelsea Paez MA [facility].; [facility], [facility]. 02-15-2023 15:45-0400 Body weight 70.36 kg Chelsea Paez MA [facility].; [facility]. 02-15-2023 15:45-0400 Diastolic blood pressure 79 mm[Hg] Chelsea Paez MA [facility].; [facility]. Comment on above: Patient Position: Sitting; Cuff Location : Left Arm; Cuff Size: Standard 02-15-2023 15:45-0400 Heart rate 87 /min Chelsea Paez MA [facility].; [facility]. Comment on above: Pattern: Regular 02-15-2023 15:45-0400 Systolic blood pressure 120 mm[Hg] Chelsea Paez MA [facility].; [facility]. Comment on above: Patient Position: Sitting; Cuff Location : Left Arm; Cuff Size: Standard 12-14-2022 11:30-0400 Body height 157.48 cm PA Marco Melvin Work Phone: [facility] 12-14-2022 11:28-0400 Body mass index (BMI) [Ratio] 28.3 kg/m2 PA Marco Melvin Work Phone: [facility] 12-14-2022 11:28-0400 Body weight 70.36 kg PA Marco Melvin Work Phone: [facility] [facility] 12-14-2022 11:28-0400 Diastolic blood pressure 84 mm[Hg] PA Marco Melvin Work Phone: [facility] 12-14-2022 11:28-0400 Systolic blood pressure 129 mm[Hg] PA Marco Melvin Work Phone: [facility] 12-02-2022 14:26-0400 Body temperature 97.7 [degF] PA Marco Melvin Work Phone: [facility] 12-02-2022 14:26-0400 Diastolic blood pressure 79 mm[Hg] PA Marco Melvin Work Phone: [facility] 12-02-2022 14:26-0400 Heart rate 76 /min PA Marco Melvin Work Phone: [facility] 12-02-2022 14:26-0400 Respiratory rate 16 /min PA Marco Melvin Work Phone: 2(292)[phone] [place] [address] 12-02-2022 14:26-0400 SaO2% (BldA) [Mass fraction] 97 % PA Marco Melvin Work Phone: [facility] 12-02-2022 14:26-0400 Systolic blood pressure 115 mm[Hg] PA Marco Melvin Work Phone: 7(901)[phone] [place] [address] 12-02-2022 09:12-0400 Body height 157.48 cm PA Marco Melvin Work Phone: 1(900)[phone] [place] [address] 12-02-2022 09:12-0400 Body mass index (BMI) [Ratio] 28.1 kg/m2 PA Marco Melvin Work Phone: 0(109)[phone] [address] 12-02-2022 09:12-0400 Body weight 69.85 kg PA Marco Melvin Work Phone: 0(420)[phone] [place] [address] 11-09-2022 11:22-0400 Body mass index (BMI) [Ratio] 28.5 kg/m2 PA Marco Melvin Work Phone: 0(936)[phone] [place] [address] 11-09-2022 11:22-0400 Body weight 70.93 kg PA Marco Melvin Work Phone: [facility] 11-09-2022 11:22-0400 Diastolic blood pressure 76 mm[Hg] PA Marco Melvin Work Phone: [facility] 11-09-2022 11:22-0400 Systolic blood pressure 116 mm[Hg] PA Marco Melvin Work Phone: 1(120)[phone] [place] [address] 10-14-2022 14:43-0400 Body mass index (BMI) [Ratio] 28.8 kg/m2 PA Marco Melvin Work Phone: [facility] 10-14-2022 14:43-0400 Body weight 71.44 kg PA Marco Melvin Work Phone: [facility] 10-14-2022 14:43-0400 Diastolic blood pressure 77 mm[Hg] PA Marco Melvin Work Phone: [facility] 10-14-2022 14:43-0400 Systolic blood pressure 114 mm[Hg] PA Marco Melvin Work Phone: [facility] 09-27-2022 15:56-0400 Body temperature 99.9 [degF] Chin Edge LPN [facility] [employer] [facility] 09-27-2022 15:56-0400 Body weight 73.94 kg Chin Edge LPN [facility] [employer] [facility] 09-27-2022 15:56-0400 Diastolic blood pressure 86 mm[Hg] Chin Edge LPN [facility] [employer] [facility], [employer]. Comment on above: Patient Position: Sitting; Cuff Location : Left Arm; Cuff Size: Standard 09-27-2022 15:56-0400 Heart rate 106 /min Chin Edge LPN [facility] [employer] [facility] Comment on above: Pattern: Regular 09-27-2022 15:56-0400 Systolic blood pressure 120 mm[Hg] Chin Edge LPN [facility] [employer], [employer]. Comment on above: Patient Position: Sitting; Cuff Location : Left Arm; Cuff Size: Standard 08-05-2022 10:09-0500 Body height 156.84 cm Nandini Fisher RN [place] [employer] [facility], [facility].; [employer], [employer] 08-05-2022 10:09-0500 Body mass index (BMI) [Ratio] 30.24 kg/m2 Nandini Fisher RN [facility], [facility]. 08-05-2022 10:09-0500 Body surface area Derived from formula 1.75 m2 Nandini Fisher RN [facility].; [facility]. 08-05-2022 10:09-0500 Body temperature 99.8 [degF] Nandini Fisher RN [facility].; [employer]. Comment on above: Method: Tympanic 08-05-2022 10:090500 Body weight 74.39 kg Nandini Fisher RN [facility].; [place] [employer] [facility]. 08-05-2022 10:09-0500 Diastolic blood pressure 72 mm[Hg] Nandini Fisher RN [facility].; [facility]. Comment on above: Patient Position: Sitting; Cuff Location : Left Arm; Cuff Size: Standard 08-05-2022 10:09-0500 Heart rate 94 /min Nandini Fisher RN [facility].; [employer]. Comment on above: Pattern: Regular 08-05-2022 10:09-0500 Systolic blood pressure 108 mm[Hg] Nandini Fisher RN [facility].; [employer]. Comment on above: Patient Position: Sitting; Cuff Location : Left Arm; Cuff Size: Standard 05-12-2022 16:19-0500 Body height 156.84 cm Maryellen Reyes LPN [facility], [facility].; [facility]. 05-12-2022 16:19-0500 Body mass index (BMI) [Ratio] 30.05 kg/m2 Maryellen Reyes LPN [facility].; [place] [employer] [facility], [facility]. 05-12-2022 16:19-0500 Body surface area Derived from formula 1.75 m2 Maryellen Reyes LPN [facility].; [facility]. 05-12-2022 16:19-0500 Body temperature 98.5 [degF] Maryellen Reyes LPN [place] [facility].; [employer]. Comment on above: Method: Tympanic 05-12-2022 16:19-0500 Body weight 73.94 kg Maryellen Reyes LPN [facility], [facility].; [employer], [employer]. 05-12-2022 16:19-0500 Diastolic blood pressure 87 mm[Hg] Maryellen Reyes LPN [facility], [facility].; [employer], [employer]. Comment on above: Patient Position: Sitting; Cuff Location : Left Arm; Cuff Size: Standard 05-12-2022 16:19-0500 Heart rate 92 /min Maryellen Reyes LPN [facility], [facility].; [employer], [employer]. Comment on above: Pattern: Regular 05-12-2022 16:19-0500 Inhaled oxygen concentration 20 % Maryellen Reyes LPN [facility], [facility].; [employer], [employer]. Comment on above: Room air 05-12-2022 16:19-0500 Inhaled oxygen concentration 21 % Maryellen Reyes LPN [facility] [employer], [employer]. Comment on above: Room air 05-12-2022 16:19-0500 SaO2% (BldA) [Mass fraction] 98 % Maryellen Reyes LPN [facility], [facility].; [employer], [employer]. 05-12-2022 16:19-0500 Systolic blood pressure 118 mm[Hg] Maryellen Reyes LPN [facility], [facility].; [employer], [employer]. Comment on above: Patient Position: Sitting; Cuff Location : Left Arm; Cuff Size: Standard 04-26-2022 10:40-0400 Body height 156.84 cm Maryellen Reyes LPN [facility], [facility].; [employer] [facility], [employer]. 04-26-2022 10:40-0400 Body mass index (BMI) [Ratio] 30.05 kg/m2 Maryellen Reyes LPN [facility], [facility].; [employer] [facility], [facility]. 04-26-2022 10:40-0400 Body surface area Derived from formula 1.75 m2 Maryellen Reyes LPN [facility], [facility].; [employer], [employer]. 04-26-2022 10:40-0400 Body weight 73.94 kg Maryellen Reyes LPN [facility], [facility].; [employer], [employer]. 04-26-2022 10:40-0400 Diastolic blood pressure 86 mm[Hg] Maryellen Reyes LPN [facility].; [facility]. Comment on above: Patient Position: Sitting; Cuff Location : Left Arm; Cuff Size: Standard 04-26-2022 10:40-0400 Heart rate 106 /min Maryellen Reyes LPN [facility], [facility].; [facility]. Comment on above: Pattern: Regular 04-26-2022 10:40-0400 Inhaled oxygen concentration 20 % Maryellen Reyes LPN [facility].; [facility]. Comment on above: Room air 04-26-2022 10:40-0400 Inhaled oxygen concentration 21 % Maryellen Reyes LPN [facility].; [facility] [employer]. Comment on above: Room air 04-26-2022 10:40-0400 SaO2% (BldA) [Mass fraction] 100 % Maryellen Reyes LPN [facility].; [facility]. 04-26-2022 10:40-0400 Systolic blood pressure 122 mm[Hg] Maryellen Reyes LPN [facility].; [facility]. Comment on above: Patient Position: Sitting; Cuff Location : Left Arm; Cuff Size: Standard 04-08-2022 22:05-0400 Respiratory rate 14 /min [facility] Work Phone: 04-08-2022 17:52-0400 Body temperature 97.4 [degF] [facility] Work Phone: 04-08-2022 17:52-0400 Diastolic blood pressure 95 mm[Hg] [facility] Work Phone: 04-08-2022 17:52-0400 Heart rate 105 /min [facility] Work Phone: 04-08-2022 17:52-0400 SaO2% (BldA) [Mass fraction] 100 % [facility] Work Phone: 04-08-2022 17:52-0400 Systolic blood pressure 128 mm[Hg] [facility] Work Phone: 04-08-2022 17:49-0400 Body height 157.48 cm [facility] Work Phone: 04-08-2022 17:49-0400 Body mass index (BMI) [Ratio] 30.7 kg/m2 [facility] Work Phone: 04-08-2022 17:49-0400 Body weight 76.3 kg [facility] Work Phone: 02-07-2022 09:46-0400 Body height 156.84 cm Nandini Fisher RN [facility], [employer].; [employer] [facility]. 02-07-2022 09:46-0400 Body mass index (BMI) [Ratio] 29.5 kg/m2 Nandini Fisher RN [place] [employer] [facility].; [employer] [facility]. 02-07-2022 09:46-0400 Body surface area Derived from formula 1.73 m2 Nandini Fisher RN [place] [employer] [facility].; [employer] [facility]. 02-07-2022 09:46-0400 Body temperature 99.2 [degF] Nandini Fisher RN [place] [employer] [facility].; [employer]. Comment on above: Method: Tympanic 02-07-2022 09:46-0400 Body weight 72.58 kg Nandini Fisher RN [place] [employer] [facility].; [employer]. 02-07-2022 09:46-0400 Diastolic blood pressure 74 mm[Hg] Nandini Fisher RN [employer] [facility].; [employer]. Comment on above: Patient Position: Sitting; Cuff Location : Left Arm; Cuff Size: Standard 02-07-2022 09:46-0400 Heart rate 84 /min Nandini Fisher RN [employer] [facility].; [employer]. Comment on above: Pattern: Regular 02-07-2022 09:46-0400 Inhaled oxygen concentration 20 % Nandini Fisher RN [place] [employer] [facility].; [employer]. Comment on above: Room air 02-07-2022 09:46-0400 Inhaled oxygen concentration 21 % Nandini Fisher RN [facility].; [employer] [facility]. Comment on above: Room air 02-07-2022 09:46-0400 SaO2% (BldA) [Mass fraction] 99 % Nandini Fisher RN [facility].; [facility]. 02-07-2022 09:46-0400 Systolic blood pressure 112 mm[Hg] Nandini Fisher RN [facility].; [employer]. Comment on above: Patient Position: Sitting; Cuff Location : Left Arm; Cuff Size: Standard 12-01-2021 15:44-0400 Body height 156.84 cm Maryellen Reyes LPN [facility], [facility].; [employer] [facility], [facility]. 12-01-2021 15:44-0400 Body mass index (BMI) [Ratio] 29.13 kg/m2 Maryellen Reyes LPN [facility], [facility].; [employer] [facility], [facility]. 12-01-2021 15:44-0400 Body surface area Derived from formula 1.72 m2 Maryellen Reyes LPN [facility], [facility].; [employer] [employer] [facility], [facility]. 12-01-2021 15:44-0400 Body weight 71.67 kg Maryellen Reyes LPN [facility], [facility].; [employer] [facility], [facility]. 12-01-2021 15:44-0400 Diastolic blood pressure 79 mm[Hg] Maryellen Reyes LPN [facility], [facility].; [employer]. Comment on above: Patient Position: Sitting; Cuff Location : Left Arm; Cuff Size: Standard 12-01-2021 15:44-0400 Heart rate 75 /min Maryellen Reyes LPN [facility], [facility].; [employer], [employer]. Comment on above: Pattern: Regular 12-01-2021 15:44-0400 Systolic blood pressure 113 mm[Hg] Maryellen Reyes LPN [facility], [facility].; [employer], [employer]. Comment on above: Patient Position: Sitting; Cuff Location : Left Arm; Cuff Size: Standard 08-03-2021 16:09-0500 Body height 156.84 cm Maryellen Reyes LPN [facility], [facility].; [facility], [facility]. 08-03-2021 16:09-0500 Body mass index (BMI) [Ratio] 27.47 kg/m2 Maryellen Reyes LPN [facility] 08-03-2021 16:09-0500 Body surface area Derived from formula 1.68 m2 Maryellen Reyes LPN [facility], [facility].; [facility], [facility]. 08-03-2021 16:09-0500 Body weight 67.59 kg Maryellen Reyes LPN [facility], [facility].; [facility], [facility]. 08-03-2021 16:09-0500 Diastolic blood pressure 88 mm[Hg] Maryellen Reyes LPN [facility], [facility].; [employer] [employer] [facility], [facility]. Comment on above: Patient Position: Sitting; Cuff Location : Left Arm; Cuff Size: Standard 08-03-2021 16:09-0500 Heart rate 85 /min Maryellen Reyes LPN [facility], [facility].; [place] [employer], [facility]. Comment on above: Pattern: Regular 08-03-2021 16:09-0500 Systolic blood pressure 125 mm[Hg] Maryellen Reyes LPN [facility], [facility].; [place] [employer] [facility], [facility]. Comment on above: Patient Position: Sitting; Cuff Location : Left Arm; Cuff Size: Standard 05-13-2021 15:58-0500 Body height 156.84 cm Alysia Mar LPN [facility], [facility].; [facility], [facility]. 05-13-2021 15:58-0500 Body mass index (BMI) [Ratio] 26.55 kg/m2 Alysia Mar LPN [facility], [facility].; [facility], [facility]. 05-13-2021 15:58-0500 Body surface area Derived from formula 1.66 m2 Alysia Mar LPN [facility], [facility].; [facility], [facility]. 05-13-2021 15:58-0500 Body temperature 99.2 [degF] Alysia Mar [facility], [facility].; [facility] Comment on above: Method: Tympanic 05-13-2021 15:58-0500 Body weight 65.32 kg Alysiamadelyn Mar LPN [facility], [facility].; [facility] 05-13-2021 15:58-0500 Diastolic blood pressure 80 mm[Hg] Alysiamadelyn Mar [facility] [place] [employer], [employer] Comment on above: Patient Position: Sitting; Cuff Location : Left Arm; Cuff Size: Standard 05-13-2021 15:58-0500 Heart rate 92 /min Alysiamadelyn Mar [facility], [facility].; [place] [employer], [employer] Comment on above: Pattern: Regular 05-13-2021 15:58-0500 Systolic blood pressure 113 mm[Hg] [facility]adelyn [facility] [place] [employer], [employer] Comment on above: Patient Position: Sitting; Cuff Location : Left Arm; Cuff Size: Standard 04-26-2021 16:14-0400 Body height 156.84 cm Alysiamadelyn Mar IUSS ANALYST [facility] [place] [employer], [employer] 04-26-2021 16:14-0400 Body mass index (BMI) [Ratio] 26.74 kg/m2 [facility], [facility].; [place] [employer], [employer] 04-26-2021 16:14-0400 Body surface area Derived from formula 1.66 m2 [facility], [facility].; [place] [employer] [facility], [facility] 04-26-2021 16:14-0400 Body weight 65.77 kg A[facility]amadelyn [facility], [facility].; [place] [employer], [employer]. 04-26-2021 16:14-0400 Diastolic blood pressure 78 mm[Hg] Alysiamadelyn Mar [facility], [facility].; [place] [employer] Comment on above: Patient Position: Sitting; Cuff Location : Left Arm; Cuff Size: Standard 04-26-2021 16:14-0400 Heart rate 106 /min Alysiamadelyn Mar IUSS ANALYST [facility] [employer]. Comment on above: Pattern: Regular 04-26-2021 16:14-0400 Systolic blood pressure 114 mm[Hg] Alysia Mar LPN [facility] [employer].; [employer]. Comment on above: Patient Position: Sitting; Cuff Location : Left Arm; Cuff Size: Standard 01-31-2020 15:35-0400 Body height 156.84 cm Marco Melvin PA-C Work Phone: [employer]; [employer]. 01-31-2020 15:35-0400 Body mass index (BMI) [Ratio] 26.55 kg/m2 Marco Melvin PA-C Work Phone: [employer]; [employer]. 01-31-2020 15:35-0400 Body surface area Derived from formula 1.66 m2 Marco Melvin PA-C Work Phone: [employer]; [employer] 01-31-2020 15:35-0400 Body weight 65.32 kg Marco Melvin PA-C Work Phone: [employer]; [employer]. 01-31-2020 15:35-0400 Diastolic blood pressure 74 mm[Hg] Marco Melvin PA-C Work Phone: [employer]; [employer]. Comment on above: Patient Position: Sitting; Cuff Location : Left Arm; Cuff Size: Standard 01-31-2020 15:35-0400 Heart rate 80 /min Marco Melvin PA-C Work Phone: [employer]; [employer]. Comment on above: Pattern: Regular 01-31-2020 15:35-0400 Systolic blood pressure 107 mm[Hg] Marco Melvin PA-C Work Phone: [employer]; [facility] Comment on above: Patient Position: Sitting; Cuff Location : Left Arm; Cuff Size: Standard Encounters Encounter Date Encounter Type Care Provider Facility Start: 05-12-2025 End: 05-12-2025 ambulatory JOHN NAYLOR MD Facility:A Start: 04-07-2025 End: 04-07-2025 ambulatory YOLA BRINKANTONIA [facility] Start: 04-02-[address] Joe Schaffer MD -Laboratory Work Phone: Start: 04-02-2025 End: 04-02-2025 ambulatory Yola Schaffer Facility:[facility] Start: 03-31-2025 End: 03-31-2025 ambulatory Marco Melvin PA Work Phone: -Laboratory Start: 03-31-2025 End: 03-31-[address] Yola Schaffer MD -Laboratory Work Phone: Start: 03-31-2025 End: 03-31-2025 ambulatory Yola Schaffer Facility:[facility] Start: 03-28-2025 End: 03-28-2025 ambulatory Marco Melvin PA Work Phone: -Laboratory Start: 03-28-2025 End: 03-28-[address] Yola Schaffer MD -Laboratory Work Phone: Start: 03-28-2025 End: 03-28-2025 ambulatory Yola Schaffer Facility:[facility] Start: 03-24-2025 End: 03-24-2025 ambulatory Marco Melvin PA Work Phone: -Laboratory Start: 03-24-2025 End: 03-24-[address] Yola Schaffer MD -Laboratory Work Phone: Start: 03-24-2025 End: 03-24-2025 ambulatory Marco Melvin Facility:[facility] Start: 03-12-2025 End: 03-12-2025 ambulatory JOHN NAYLOR MD Facility:A Start: 03-10-2025 End: 03-10-2025 ambulatory JOHN NAYLOR MD Facility:A Start: 03-07-2025 End: 03-07-2025 ambulatory JOHN NAYLOR MD Facility:A Start: 03-06-2025 End: 03-06-[address] [facility] Start: 03-06-2025 End: 03-06-[address] Julianna Newman DO [facility] Start: 03-06-2025 End: 03-06-2025 ambulatory Marco Melvin PA Work Phone: -[facility] Start: 02-28-2025 End: 02-28-2025 ambulatory MARCOJOHN MELVIN PA-C Facility:A Start: 10-14-2024 End: 10-14-2024 Emergency department patient visit Marcojohn Melvin PA Work Phone: -Emergency Department Work Phone: Start: 10-12-2024 End: 10-13-2024 Evaluation and management of inpatient Barak Covarrubias MD Work Phone: [facility] Medical Surgical Unit [facility] H5 Comment on above: Ovarian hyperstimula tion syndrome (Primary Dx) Start: 10-11-2024 End: 10-12-2024 Emergency department patient visit Marcojohn Melvin PA Work Phone: -Emergency Department Work Phone: Start: 10-07-2024 End: 10-07-2024 ambulatory MARCOJOHN MELVIN PA-C Facility:A Start: 08-15-2024 End: 08-15-[address] [facility] Work Phone: Start: 08-15-2024 End: 08-15-2024 [facility] Start: 06-19-2024 End: 06-19-2024 Patient encounter procedure Lilly REYES -Laboratory, Specimen Work Phone: Start: 06-19-2024 End: 06-19-2024 Patient encounter procedure Lilly REYES -[facility] Work Phone: Start: 06-19-2024 End: 06-19-2024 ambulatory Marco Melvin Facility:[facility] Start: 06-19-2024 End: 06-19-2024 ambulatory Marco Melvin Facility:[facility] Start: 06-11-2024 ambulatory Marco Melvin Facility:[facility] Start: 05-15-2024 End: 05-15-2024 ambulatory [facility] Start: 05-14-2024 End: 05-14-2024 ambulatory [facility] Start: 05-07-2024 End: 05-07-2024 ambulatory [facility] Start: 04-25-2024 End: 04-25-2024 ambulatory [facility] Start: 04-10-2024 End: 04-10-2024 Subsequent hospital visit by physician Lucila Ho DO Work Phone: [facility] Comment on above: History of gestation al diabetes Start: 04-10-2024 End: 04-10-2024 ambulatory [facility] Start: 03-28-2024 End: 03-28-2024 ambulatory [facility] Start: 03-06-2024 End: 03-17-2024 Evaluation and [...] visit 15 minutes Marco LUNA-C Work Phone[facility] [employer] [facility] Start: 12-28-2023 End: 12-28-2023 ambulatory SAUMYA MANCIA [facility] Start: 12-12-2023 End: 12-12-2023 Telephone follow-up Marco Melvin PA-C Work Phone[facility] [employer] [facility] Start: 10-25-2023 End: 10-25-2023 ambulatory PA Marco Melvin Work Phone: [facility] Work Phone: Start: 10-25-2023 End: 10-25-2023 Patient encounter procedure PA Marco Melvin Work Phone: [facility] Work Phone: Start: 10-12-2023 End: 10-12-2023 ambulatory PA Marco Melvin Work Phone: [facility] Work Phone: Start: 10-12-2023 End: 10-12-2023 Patient encounter procedure PA Marco Melvin Work Phone: [facility]-Laboratory, Specimen Work Phone: Start: 10-12-2023 End: 10-12-2023 Patient encounter procedure PA Marco Melvin Work Phone: [facility] Work Phone: Start: 09-29-2023 End: 09-29-2023 ambulatory PA Marco Melvin Work Phone: [facility] Work Phone: Start: 09-29-2023 End: 09-29-2023 Patient encounter procedure PA Marco Melvin Work Phone: [facility]ound, [facility] Work Phone: Start: 09-22-2023 End: 09-22-2023 ambulatory PA Marco Melvin Work Phone: [facility] Work Phone: Start: 09-22-2023 End: 09-22-2023 Patient encounter procedure PA Marco Melvin Work Phone: [facility] Work Phone: Start: 09-19-2023 End: 09-19-2023 Emergency department patient visit PA Marco Melvin Work Phone: [facility] Work Phone: Start: 09-15-2023 End: 09-15-2023 ambulatory PA Marco Melvin Work Phone: [facility] Work Phone: Start: 09-15-2023 End: 09-15-2023 Patient encounter procedure PA Marco Melvin Work Phone: [facility] Work Phone: Start: 09-13-2023 End: 09-13-2023 ambulatory PA Marco Melvin Work Phone: [facility] Work Phone: Start: 09-13-2023 End: 09-13-2023 [facility] encounter [facility] Start: 2023 End: 2023 ambulatory PA Marco Melvin Work Phone: [facility] Work Phone: Start: 2023 End: 2023 Patient encounter procedure PA [facility] Start: 09-08-2023 End: 09-08-2023 Patient encounter procedure PA Marco Melvin Work Phone: [facility] Work Phone: Start: 09-06-2023 End: 09-06-2023 ambulatory PA Marco Melvin Work Phone: [facility] Work Phone: Start: 09-06-2023 End: 09-06-2023 Patient encounter procedure PA [facility] Start: 08-25-2023 End: 08-25-2023 ambulatory [facility] Work Phone: Start: 08-25-2023 End: 08-25-2023 Patient encounter procedure Jacey [facility] Work Phone: Start: 08-23-2023 End: 08-23-2023 [facility] Start: 08-21-2023 End: 08-21-2023 ambulatory [facility] Work Phone: Start: 08-21-2023 End: 08-21-2023 [facility] Start: 08-15-2023 End: 08-15-2023 ambulatory [facility] Work Phone: Start: 08-15-2023 End: 08-15-[address] [facility] Start: 08-07-2023 End: 08-07-[address] [facility] Start: 08-05-2023 End: 08-05-2023 ambulatory [facility] Work Phone: Start: 08-05-2023 End: 08-05-2023 [facility] Start: 08-03-2023 End: 08-03-2023 ambulatory [facility] Work Phone: Start: 08-03-2023 End: 08-03-20[address] [facility] Work [facility]: Start: 07-29-2023 End: 07-29-2023 ambulatory [facility] Work Phone: Start: 07-29-2023 End: 07-29-[address] [facility]: Start: 03-07-2023 End: 03-07-2023 ambulatory PA Marco Melvin Work Phone: [facility] Work Phone: Start: 03-07-2023 End: 03-07-2023 Patient encounter procedure PA Marcojohn Melvin Work Phone: [facility] Work Phone: Start: 02-15-2023 End: 02-15-2023 Periodic preventive med est patient 18-39 yrs Marco Melvin PA-C [facility] Start: 02-15-2023 End: 02-15-2023 Physical examination Marco Melvin PA-C Work Phone: [facility] [employer] Start: 01-20-2023 End: 01-20-2023 Patient encounter procedure PA Marco Melvin Work Phone: [facility] Work Phone: Start: 12-14-2022 End: 12-14-2022 Patient encounter procedure PA Marco Melvin Work Phone: [facility] Work Phone: Start: 12-02-2022 Non-patient / Non-visit PA Melonie Melvin Work Phone: [facility] Start: 12-02-2022 End: 12-02-2022 Admission to same day surgery center PA Marco Melvin Work Phone: [facility] Start: 12-02-2022 End: 12-02-2022 ambulatory PA Marco Melvin Work Phone: [facility] Work Phone: Start: 11-09-2022 End: 11-09-2022 Patient encounter procedure PA Marco Melvin Work Phone: [facility] Start: 10-19-2022 End: 10-19-2022 Patient encounter procedure PA Marco Melvin Work Phone: [facility] Start: 10-14-2022 End: 10-14-2022 Patient encounter procedure PA Marco Melvin Work Phone: [facility] Start: 10-14-2022 End: 10-14-2022 Patient encounter procedure PA Marco Melvin Work Phone: [facility] Start: 09-27-2022 End: 09-27-2022 Office outpatient visit 15 minutes Marco Melvin PA-C Work Phone: [facility] Start: 08-05-2022 End: 08-05-2022 Office outpatient visit 15 minutes Marco Melvin PA-C Work Phone: [facility] Start: 05-12-2022 End: 05-12-2022 Office outpatient visit 15 minutes Marco Melvin PA-C Work Phone: [facility] Start: 04-26-2022 End: 04-26-2022 Office outpatient visit 25 minutes Marco Melvin PA-C Work Phone: [facility] Start: 04-12-2022 End: 04-12-2022 Telephone follow-up Marco Melvin PA-C Work Phone: [facility] Start: 04-08-2022 End: 04-08-2022 Emergency department patient visit [facility] Start: 04-08-2022 Telephone encounter Hodan casas APRN.CNM Work Phone: OB/Gynecology Comment on above: Heavy Bleeding Start: 02-07-2022 End: 02-07-2022 Office outpatient visit 15 minutes Marco Melvin PA-C Work Phone: [facility] Start: 12-01-2021 End: 12-01-2021 Office outpatient visit 15 minutes Marco Melvin PA-C Work Phone: [facility] Start: 08-03-2021 End: 08-03-2021 Office outpatient visit 15 minutes Macro Melvin PA-C Work Phone: [facility] Start: 05-13-2021 End: 05-13-2021 Office outpatient visit 15 minutes Marco Melvin PA-C Work Phone: [facility] Start: 04-26-2021 End: 04-26-2021 Office outpatient visit 15 minutes Marco Melvin PA-C Work Phone: [facility] Start: 02-27-2020 End: 02-27-2020 Patient encounter procedure Marco Melvin PA-C Work Phone: [facility] Start: 01-31-2020 End: 01-31-2020 Office outpatient new 30 minutes Marco Melvin PA-C Work Phone: [facility] Procedures Date Procedure Procedure Detail Performing Clinician Start: 04-02-2025 Serum progesterone measurement Marco Melvin PA Work Phone: Comment on above: Follicular phase 0.1 - 0.9 Luteal phase 1.8 - 23.9 Ovulation phase 0.1 - 12.0 First trimester 11.0 - 44.3 Second trimester 25.4 - 83.3 Third trimester 58.7 - 214.0 Postmenopausal 0.0 - 0.1Performed at: [email or web address] [address] [id number] Director: Heri Louis PhD, Phone: [phone] Start: 03-31-2025 Serum progesterone measurement Marco Melvin PA Work Phone: Comment on above: Follicular phase 0.1 - 0.9 Luteal phase 1.8 - 23.9 Ovulation phase 0.1 - 12.0 First trimester 11.0 - 44.3 Second trimester 25.4 - 83.3 Third trimester 58.7 - 214.0 Postmenopausal 0.0 - 0.1Performed at: [email or web address] [address] [id number] Director: Heri Louis PhD, Phone: [phone] Start: 03-28-2025 Serum progesterone measurement Marco Melvin PA Work Phone: Comment on above: Follicular phase 0.1 - 0.9 Luteal phase 1.8 - 23.9 Ovulation phase 0.1 - 12.0 First trimester 11.0 - 44.3 Second trimester 25.4 - 83.3 Third trimester 58.7 - 214.0 Postmenopausal 0.0 - 0.1Performed at: [address] [id number] Director: Heri Louis PhD, Phone: [phone] Start: 03-24-2025 Serum progesterone measurement Marco Melvin PA Work Phone: Comment on above: Follicular phase 0.1 - 0.9 Luteal phase 1.8 - 23.9 Ovulation phase 0.1 - 12.0 First trimester 11.0 - 44.3 Second trimester 25.4 - 83.3 Third trimester 58.7 - 214.0 Postmenopausal 0.0 - 0.1Performed at: [facility] [employer] [id number] Director: Heri Louis PhD, Phone: [phone] Start: 10-14-2024 Plain X-ray abdomen Melonie ecca [...] Phone: Start: 03-15-2024 OXYGEN THERAPY [facility] MAC ARTIST - ADDICTION SPECIALIST Work Phone: Start: 03-15-2024 Glucose quantitative blood [...] on above: Performed By: #### L [id number] ####Fence Maker: GYPSY DAY ([id number])[facility] ([facility])[address] [place] [address] Start: 03-14-2024 Blood typing serolog ic rh (d) Savanah Gerald DO Work Phone: Start: 03-13-2024 Glucose quantitative blood xcpt reagent strip Rand Hlalman MD Work Phone: Start: 03-13-2024 Glucose quantitative [...] on above: Performed By: #### L [id number] ####Fence Maker: GYPSY DAY ([id number])[facility] [place] ([address] Start: 03-10-2024 Blood typing serologic abo [...] valid specimen Performed By: #### L [id number] ####Fence Maker: GYPSY DAY ([id number])[facility] [place] ([address] Start: 03-06-2024 Blood count complete automated [...] for Adults (1 - 1-dose 75+ series) [facility] Start: 09-12-2047 Zoster Vaccines (1 of 2) Zoste r Vaccines (1 of 2) [facility] Start: 02-27-2034 DTaP/Tdap/Td Vaccine s (9 - Td or Tdap) DTaP/Tdap/Td Vaccines (9 - Td or Tdap) [facility] Start: 03-31-2025 Patient encounter procedure [facility] Work Phone: Start: 03-06-2025 Depression Screening Depression Scre ening [facility] Start: 03-03-2025 Influenza vaccination Influenz a Vaccine (Season Ended) [facility] Start: 10-14-2024 End: 10-14-2024 [facility] Start: 10-14-2024 Bacteria identified in Urine by Culture Urine Culture [facility] Start: 10-11-2024 [facility] Start: 10-11-2024 Removal of urinary catheter [facility] Start: 09-03-2024 Depression Monitoring Depression Mon [facility] Start: 06-19-2024 Patient referral [facility] Work Phone: Start: 05-03-2024 Diabetes mellitus screening Diabetes Screening [facility] Start: 04-25-2024 End: 04-25-2024 Patient encounter procedure 04/25/2024 10:00 AM EDT Office Visit [facility] [address], [place] [id number] Julianna Ferraro, MAC ARTIST-MEASURING [place] [address] 4 WEEKS POST [facility] Comment on above: 4 WEEKS POST Start: 03-23-2024 RSV Immunization age d 60 or older (1 - Risk 1-dose series) RSV Immunization aged 60 or older (1 - Risk 1-dose series) [facility] Start: 03-03-2024 COVID-19 (2023-2 5 season) COVID-19 ( season) [facility] Start: 03-03-2024 COVID-19 Vaccine ( season) COVID-19 Vaccine ( season) [facility] Start: 03-03-2024 FLU (#1) FLU (#1) [facility] Start: 03-03-2024 Influenza vaccination Influenza Vacc ine (#1) [facility] Start: 09-19-2023 [facility] Start: 09-19-2023 Transvaginal obstetr ic ultrasonography [facility] Start: 12-02-2022 Anesthesia intraperitoneal lower abd w/laps nos ANESTH SURG LOWER ABDOMEN [facility] Start: 12-02-[address] w/materials REOPEN FALLOPIAN TUBE [facility] Start: 12-02-2022 Laps abd prtm&omentu m dx w/wo spec br/wa spx DIAG LAPARO SEPARATE PROC [facility] Start: 12-02-2022 Ambulation without limitation [facility] Start: 12-02-2022 Medical regimen orde rs management [facility] Start: 12-02-2022 Medication education [facility] Start: 12-02-2022 Patient discharge [facility] Start: 12-02-2022 Procedure discontinued [facility] Start: 12-02-2022 Taking patient vital signs [facility] Start: 12-02-2022 Vital signs measurements [facility] Start: 12-02-2022 [facility] Start: 12-02-2022 Admission procedure [facility] Start: 03-03-2022 Influenza vaccination INFLUENZA (#1) [facility] Start: 10-17-2021 PAP TESTING PAP TESTING [facility] Start: 07-03-2021 DEPRESSION ASSESSMENT DEPRESSION ASS ESSMENT [facility] Start: 04-02-2021 COVID-19 Vaccine (3 - Moderna risk series) COVID-19 Vaccine (3 - Moderna risk series) [facility] Start: 03-01-2020 Urine microalbumin profile DTAP,TDAP,TD (5 - Td or Tdap) [facility] Start: 2018 Microscopic observat ion [Identifier] in Cervix by Cyto stain Pap Smear [facility] Start: 2018 Screening for malign ant neoplasm of cervix Pap Smear [facility] Start: 2016 Hepatitis B (1 of 3 - 19+ 3-dose series) Hepatitis B (1 of 3 - 19+ 3-dose series) [facility] Start: 2016 Pneumococcal Vaccine : Pediatrics (0 to 5 Years) and At-Risk Patients (6 to 49 Years) (1 of 2 - PCV) Pneumococcal Vaccine: Pediatrics (0 to 5 Years) and At-Risk Patients (6 to 49 Years) (1 of 2 - PCV) [facility] Start: 2016 Zoster Vaccines (1 of 2) Zoste r Vaccines (1 of 2) [facility] Start: 09-12-2015 HEPATITIS C SCREENING HEPATITIS C [facility] Start: 09-12-2015 Hepatitis C screening Hepatitis C [facility] Start: 09-12-2015 HIV SCREENING HIV SCREENING [facility] Start: 2013 MenB (1 of 2 - MenB 2-Dose Series Bexsero) MenB (1 of 2 - MenB 2-Dose Series Bexsero) [facility] Start: 2012 HPV (1 - 3-dose series) HPV (1 - 3-d ose series) [facility] Start: 09-12-2011 PEDS TO ADULT TRANSI TION ANNUAL ASSESSMENT PEDS TO ADULT TRANSITION ANNUAL ASSESSMENT [facility] Start: 2010 Varicella (1 of 2 - 13+ 2-dose series) Varicella (1 of 2 - 13+ 2-dose series) [facility] Start: 2009 PEDS TO ADULT TRANSI TION INITIAL DISCUSSION PEDS TO ADULT TRANSITION INITIAL DISCUSSION [facility] Start: 09-12-2007 MENINGOCOCCAL B: Con sales agent trading stamps based on risk (1 of 2 - Risk Bexsero 2-dose series) MENINGOCOCCAL B: Consider based on risk (1 of 2 - Risk Bexsero 2-dose series) [facility] Start: 2004 Tetanus Diphtheria a nd Pertussis Vaccines (1 - Tdap) Tetanus Diphtheria and Pertussis Vaccines (1 - Tdap) [facility] Start: 1998 MMR (1 of 1 - Standa rd series) MMR (1 of 1 - Standard series) [facility] Start: 03-14-1998 COVID-19 VACCINE (#1) COVID-19 VACCI NE (#1) [facility] Start: 1997 Hemoglobin A1c/Hemoglobin.total in Blood HbA1c [facility] Start: 1997 [facility] Start: 1997 Lipid panel Lipid Panel [facility] CBC W Auto Different ial panel - Blood [facility] Hemoglobin A1c/Hemoglobin.total in Blood [facility] Hepatitis B surface antigen measurement [facility] Hepatitis C antibody measurement [facility] HIV 1+2 Ab+HIV1 p24 Ag [Presence] in Serum or Plasma by Immunoassay [facility] Patient Education [facility] Work Phone: Patient referral [facility] Work Phone: End: 03-06-2024 POCT Fern Test [facility] [employer] Work Phone: Comment on above: Once (Lab) for 1 Occ urrences starting 03/06/2024 until 03/06/2024 Prolactin [Mass/volu me] in Serum or Plasma [facility] Rubella IgG measurement [facility] Treponema sp Ab [Presence] in Serum [facility] Urine culture [facility] Immunizations Immunization Date Immunization Notes Care Provider Alex javier 02-28-2024 tetanus toxoid, redu ashley diphtheria toxoid, and acellular pertussis vaccine, adsorbed Marco LUNA Work Phone: [facility] 03-28-2019 influenza virus vaccine, unspecified formulation Hodan Jacob APRN.CNCheyenne Work Phone: [facility] Work Phone: 04-15-2014 influenza, injectabl e, quadrivalent, contains preservative Hodan Jacob APRN.CNM Work Phone: [facility] 09-06-2010 human papilloma viru s vaccine, quadrivalent Hodan Jacob APRN.CNCheyenne Work Phone: [facility] Work Phone: 09-06-2010 Human Papillomavirus 9-valent vaccine Hodan Jacob APRN.CNM Work Phone: [facility] 06-07-2010 human papilloma viru s vaccine, quadrivalent Hodan Jacob APRN.CNM Work Phone: [facility] Work Phone: 06-07-2010 Human Papillomavirus 9-valent vaccine Hodan Jacob APRN.CNM Work Phone: [facility] 03-01-2010 human papilloma viru s vaccine, quadrivalent Hodan Jacob APRN.CNM Work Phone: [facility] Work Phone: 03-01-2010 Human Papillomavirus 9-valent vaccine Hodan Jacob APRN.CNM Work Phone: [facility] 03-01-2010 meningococcal polysaccharide (groups A, C, Y and W-135) diphtheria toxoid conjugate vaccine (MCV4P) Hodan Jacob APRN.CNM Work Phone: [facility] Work Phone: 03-01-2010 meningococcal polysaccharide vaccine (MPSV4) Hodan Jacob APRN.CNM Work Phone: [facility] 03-01-2010 tetanus toxoid, redu ashley diphtheria toxoid, and acellular pertussis vaccine, adsorbed Hodan Jacob APRN.CNM Work Phone: [facility] Work Phone: 03-01-2010 varicella virus vaccine Raquel Jacob APRN.CNM Work Phone: [facility] Work Phone: 02-02-2010 tetanus toxoid, redu ashley diphtheria toxoid, and acellular pertussis vaccine, adsorbed Hodan Jacob APRN.CNM Work Phone: [facility] 11-04-2002 diphtheria, tetanus toxoids and acellular pertussis vaccine, 5 pertussis antigens Hodan Jacob APRN.CNM Work Phone: [facility] 11-04-2002 diphtheria, tetanus toxoids and acellular pertussis vaccine, unspecified formulation Hodan Jacob MAC ARTIST.CNM Work Phone: [facility] Work Phone: 11-04-2002 measles, mumps and rubella virus vaccine Hodanespinoza Jacob APRN.CNM Work Phone: [facility] Work Phone: 11-04-2002 measles, mumps, rubella, and varicella virus vaccine Hodanespinoza Jacob APRN.CNM Work Phone: [facility] 11-04-2002 poliovirus vaccine, inactivated Hodanespinoza Jacob MAC ARTIST.CNM Work Phone: [facility] Work Phone: 10-22-1999 varicella virus vaccine Raquelap doran Cecil MAC ARTIST.CNM Work Phone: [facility] 10-11-1999 varicella virus vaccine Raquel espinoza Jacob MAC ARTIST.CNM Work Phone: [facility] Work Phone: 06-07-1999 diphtheria, tetanus toxoids and acellular pertussis vaccine, 5 pertussis antigens Hodan Jacob APRN.CNM Work Phone: [facility] 10-26-1998 measles, mumps, rubella, and varicella virus vaccine Hodanespinoza Jacob APRN.CNM Work Phone: [facility] 10-21-1998 haemophilus influenz ae type b conjugate and Hepatitis B vaccine Hodanespinoza Jacob APRN.CNM Work Phone: [facility] Work Phone: 10-21-1998 haemophilus influenz ae type b vaccine, HbOC conjugate Hodanespinoza Jacob APRN.CNM Work Phone: [facility] 10-21-1998 hepatitis B immune globulin Hodan Jacob APRN.CNM Work Phone: [facility] 10-21-1998 measles, mumps and rubella virus vaccine Hodan Jacob APRN.CNM Work Phone: [facility] Work Phone: 04-22-1998 diphtheria, tetanus toxoids and acellular pertussis vaccine, 5 pertussis antigens Hodanespinoza Jacob MAC ARTIST.CNM Work Phone: [facility] 04-22-1998 haemophilus influenz ae type b vaccine, HbOC conjugate Hodanespinoza Jacob MAC ARTIST.CNM Work Phone: [facility] 04-22-1998 poliovirus vaccine, inactivated Hodan Jacob MAC ARTIST.CNM Work Phone: [facility] 01-14-1998 diphtheria, tetanus toxoids and acellular pertussis vaccine, 5 pertussis antigens Hodanespinoza Jacob MAC ARTIST.CNM Work Phone: [facility] 01-14-1998 haemophilus influenz ae type b vaccine, HbOC conjugate Hodanespinoza Jacob MAC ARTIST.CNM Work Phone: [facility] 01-14-1998 poliovirus vaccine, inactivated Hodan Jacob MAC ARTIST.CNM Work Phone: [facility] 1997 diphtheria, tetanus toxoids and acellular pertussis vaccine, 5 pertussis antigens Hodanespinoza Jacob MAC ARTIST.CNM Work Phone: [facility] 1997 haemophilus influenz ae type b conjugate and Hepatitis B vaccine Hodanespinoza Jacob MAC ARTIST.CNM Work Phone: [facility] Work Phone: 1997 haemophilus influenz ae type b vaccine, HbOC conjugate Hodanespinoza Jacob MAC ARTIST.CNM Work Phone: [facility] 1997 hepatitis B immune globulin Hodanespinoza Jacob MAC ARTIST.CNM Work Phone: [facility] 1997 poliovirus vaccine, inactivated Hodanespinoza Jacob MAC ARTIST.CNM Work Phone: [facility] 1997 hepatitis B immune globulin Hodan Jacob MAC ARTIST.CNM Work Phone: [facility] 1997 hepatitis B vaccine, pediatric or pediatric/adolescent dosage Hodan Jacob MAC ARTIST.CNM Work Phone: [facility] Work Phone: NEGATED: Highlighted row has not occurred!03-15-2024 measles, mumps and rubella virus vaccine Rand Hallman MD Work Phone: [employer] Comment on above: Deferred: No longer needed NEGATED: Highlighted row has not occurred!03-15-2024 tetanus toxoid, reduced diphtheria toxoid, and acellular pertussis vaccine, adsorbed Rand Hallman MD Work Phone: [employer] Comment on above: Deferred: No longer needed NEGATED: Highlighted row has not occurred!03-13-2024 influenza, injectable, madin bruce canine kidney, preservative free Rand Hallman MD Work Phone: [employer] Comment on above: Deferred: Patient Re fused - not now per pt Payers Date Payer Category Payer Unknown [id number] 2024 Self-pay [id number] 2023 [employer] [facility] [employer] [id number] 2023 Unknown [id number] 2021 Unknown [id number]. [id number] 2006 Unknown MOE [id number] 1997 Unknown [id number] 2.16.840.1.463415.3.579. 2.479 1997 Unknown [id number] 2.16.840.1.970451.3.579. 2.479 1997 Unknown [id number] 2.16.840.1.593433.3.579. 2479 1997 Unknown [id number] 2.16.840.1.561288.3.579. 2.479 1997 Unknown [id number] 2.16.840.1.253388.3.579. 2479 1997 Unknown [id number] 2.16.840.1.850014.3.579. 2479 1997 Unknown [id number] 2.16.840.1.201465.3.579. 2479 1997 Unknown [id number] 2.16840.1.447606.3.579. 2479 1997 Unknown [id number] 2.16840.1.861648.3.579. 2.651 1997 Unknown [id number] 2.16840.1.578464.3.579. 2.627 1997 Unknown [id number] 2.16840.1.827034.3.579. 2.627 1997 Unknown [id number] 2.16840.1.003113.3.579. 2.627 1997 Unknown [id number] 2.16.840.1.608658.3.579. 2.627 1997 Unknown [id number] 2.16840.1.053101.3.579. 2.627 1997 Unknown [id number] 2.16840.1.180800.3.579. 2.627 Unknown ANTHEM SECONDARY [id number] Unknown [id number] 2.16.840.1.339346.3.579. 2.462 Unknown [id number] 2.16.840.1.034636.3.579. 2.462 Unknown [id number] 2.16.840.1.123883.3.579. 2.462 Unknown [id number] 2.16.840.1.524948.3.579. 2.462 Unknown [id number] 2.16840.1.557580.3.579. 2.462 Unknown [id number] 2.16.840.1.715848.3.579. 2.462 Unknown [id number] 2.16.840.1.519148.3.579. 2.462 Unknown [id number] 2.16.840.1.795728.3.579. 2.462 Unknown [id number] 2.16840.1.212731.3.579. 2.462 Unknown [id number] 2.16840.1.116335.3.579. 2.462 Unknown [id number] 2.16840.1.728306.3.579. 2.462 Social History Date Type Detail Facility Start: 11-05-2018 End: 03-06-2024 Tobacco smoking status IDIS Never smoked tobacco [facility] Start: 11-05-2018 End: 03-06-2024 Tobacco use and exposure Smokeless tobacco non-user [facility] Start: 08-27-2021 Alcohol intake Current non-dr rehabilitation attendant of alcohol (finding) [facility] Start: 1997 Sex Assigned At Not on file [facility] Start: 04-08-2022 End: 10-12-2023 Tobacco smoking status IDIS Unknown if ever smoked [facility] Start: 02-06-2020 Vapor [facility] Start: 1997 Sex Assigned At Female W [facility] Tobacco Use: Tobacco Use: ; Current every day smoker. [employer] Smokes tobacco daily [employer] Work Phone: Start: 08-26-2023 [facility] Start: 03-06-2024 End: 10-12-2024 Alcoholic beverage intake Ex-drinker (finding) [facility] Start: 03-11-2024 End: 10-12-2024 History of Social function [facility] Start: 03-11-2024 End: 10-12-2024 [facility] [employer] [facility] Has the Peer[employer], Local [employer], or water Payoneer threatened to shut off services in your home in past 12Mo No [facility] (I/We) worried wheth er (my/our) food would run out before (I/we) got money to buy more. Never true [facility] [employer] [facility] In the past 12 month s, has lack of transportation kept you from medical appointments or from getting medications? No [facility] Start: 10-11-2024 End: 03-06-2025 Tobacco smoking status NHIS Ex-smoker (finding) [facility] Start: 10-12-2024 End: 10-14-2024 Sex Female (finding) [facility] How often to you hav e a drink containing alcohol? Never [facility] Do you feel stress - tense, restless, nervous, or anxious, or unable to sleep at night because your mind is troubled all the time - these days [OSQ] Only a little [employer] [employer] NEGATED: Highlighted row [facility] Medical Equipment Procedure Code Equipment Code [...] Assessment Result Facility 12-02-2022 Cognitive function Voice/Name [facility] Work Phone: Clinical Notes 09-13-2011 to 03-06-2025 Note Date & Type Note Facility 03-06-2025 Evaluation note Diagnosis Onset Date Resolution Encounter for routine gynecological examination noneactive March 06, 025 2:30pm [facility] Work Phone: 1(365) 920-710004-14-2025 Discharge summary [facility] Medical Records Department [address] [place] [address] Emergency Department Summary 10/14/24 MR#: [id number] Acct: [id number] Name: JOSE EDWARD Rep #:[id number] : 1995 29 From: Sorne Babcock MD PCP: CHERYL Samano Status:REG ER Location: ED HPI History of Present Illness Chief Complaint: Abd Pain Narrative Narrative: 29-year-old female presents with abdominal pain. On 10/11/2024 she drove to [place], [place] to have egg retrieval at a fertility clinic. They did the procedure vaginally and punctured her bladder while retrieving some eggs. They prescribed Keflex and Pyridium. She drove home that same day and developed chest pain, shortness of breath, nausea and abdominal pain and had difficulty emptying her bladder. She was evaluated at [facility] on the same day 10/[address] scan of chest abdomen pelvis negative for PE. There were enlarged ovaries with numerous cysts and moderate volume ascites compatible with ovarian hyperstimulation syndrome. She also had a West placed for urinary retention. She was transferred to [facility] for definitive treatment. She statesthey attempted a [...] of breath are much better. [facility] Medical History Abnormal uterine bleeding Conceived by [...] 02/28/24 Unknown R x (FreeStyle Lexi 2 Thorofare) flash glucose sensor (FreeStyle #1 02/28/24 Unknown Rx Lexi 2 Sensor kit) PNV no.151-iron 27 mg-folic 800 1 cap PO DAILY 5 Unknown History mcg-omega3 260 lg-rhp-qvz-fish capsule ( Multi-DHA (with vitamin K)) cabergoline [...] Diabetes Uncle Diabetes Grandmother Diabetes Surgical History Daisy teeth extracted History of hysteroscopy Status post laparoscopy S/P D&C (status post dilation and curettage) Hx of lumpectomy History of tonsillectomy and adenoidectomy Social History adopted: No household members: spouse number of children: 0 current occupational status: employed current occupation: [employer] current occupational exposures/hazards: No pets and animals: Yes (Avoid litterbox) pets and animals: cat(s) and dog(s) history of recent travel: Yes ([facility]) out of state: Yes out of country: No sexually active: Yes Smoking Status: Former smoker Electronic Cigarette Use: with nicotine alcohol intake: never substance use type: does not use well-balanced diet: daily or most days caffeine: No eating out: 1-3 times/week during the past year weight has: increased > 10 lbs what type of physical activity do you participate in: none jessica/gnosticism: Spiritism seatbelt use: always do you feel safe [...] and urinary issues. She was at [facility] the last few days and they [...] % (Auto) 69.3 Lymph % (Auto) 21.9 Marathon % (Auto) 6.5 Eos % (Auto) 1.6 [...] Sl. Cloudy Urine pH 7.0 Ur Specific [place] 1.015 Urine Protein 30 H Urine Glucose [...] X-Ray 10/14/24 21:24 IMPRESSION: CONSTIPATION. Reading [facility] Narrative Medical decision making narrative: Differential includes but not limited to: Urinary retention, UTI, intra- abdominal infection, ovarian hyperstimulation, constipation 29-year-old female had eggs retrieval 3 days ago and was told her bladder was punctured. Since thenshe has had nausea, abdominal pain constipation, and urinary issues. She was at [facility] the last few days and they [...] up at a CT was sent to [facility]. They attempted at that time a paracentesis [...] % (Auto) 69.3 Lymph % (Auto) 21.9 Marathon % (Auto) 6.5 Eos % (Auto) 1.6 [...] Sl. Cloudy Urine pH 7.0 Ur Specific [place] 1.015 Urine Protein 30 H Urine Glucose [...] X-Ray 10/14/24 21:24 IMPRESSION: CONSTIPATION. Reading Location: [facility] Discharge Plan Triage Chief Complaint: Abd Pain ED Midlevel Provider: Anabella Malave ED Provider: Soren Babcock Dx/Rx/DC Orders Clinical Impression: Constipation, Abdominal pain, Ovarian hyperstimulation syndrome Instructions: Abdominal Pain, ED Constipation (Adult) Prescriptions: No Action omeprazole 20 mg tablet,delayed release (DR/EC) 20 mg PO DAILY (DME) FreeStyle Lexi 2 Thorofare Misc See Rx Instructions .Route Qty: 1 [...] you take magnesium citrate which is sold xxlr-cqj-cditxmm. Drink plenty of water and Gatorade to avoid dehydration as this will cause a lot of bowel movements. You also could be having pain from the ovarian hyperstimulation syndrome which should get better over time. I recommend follow-up with your SMALL ENGINE MECHANIC. Print Language: Iranian Disposition Disposition: Home, Self Care What to do if you have Problems For any increased pain, shortness of breath, bleeding, nausea or vomiting, chestpain, or any unexpected problems, contact your Primary Care Provider. Call [facility] ([phone]) or report tothe closest Emergency Room. Call 911 if necessary. 10/14/242145 Cosigner Signature (if applicable): 10/14/242142 CC: CHERYL Samano ~ Signed [facility]04-14-2025 Radiology Diagnostic study note [facility] Imaging Services [address] [place] [address] Abdomen Single View (Portable) MR#: [id number] Acct: [id number] Name: JOSE EDWARD Rep #: [id number] : 1995 F 29 From: Makenna Brown DO PCP: CHERYL Samano Status: PRE ER Study:Abdomen Single View (Portable) Date of Exam: 10/14/24 Exam# [id number] Ordering Dr: nAabella Akers PROCEDURE: ABDOMEN SINGLE VIEW (PORTABLE) 10/14/2024 REASON FOR EXAM: ABDOMINAL PAIN, CONSTIPATION TECHNIQUE: Single view abdomen. COMPARISON: None FINDINGS: Bowel gas: Nonobstructive bowel gas pattern. No evidence of obstruction. Mild stool burden within the large bowel. Calcifications: No suspicious calcifications. Bones: The bones are unremarkable. Other: RAD/Abdomen Single View (Portable) IMPRESSION: CONSTIPATION. Reading Location: [facility] CC: CHERYL Weinstein; CHERYL Samano ~ Bank President: Signed [facility]04-14-2025 Discharge summary Author Soren Babcock [facility] Note Date/Time October 14, 2024 9:4 6pm [facility] Medical Records Department [address] [place] [address] Emergency Department Summary 10/14/24 MR#: [id number] Acct: [id number] Name: JOSE EDWARD Rep #:[id number] : 1995 29 From: Soren Babcock MD PCP: CHERYL Samano Status:REG ER Location: ED HPI <CHERYL Weinstein - Last Filed: 10/14/24 21:43> History of Present Illness Chief Complaint: Abd Pain Narrative Narrative: 29-year-old female presents with abdominal pain. On 10/11/2024 she drove to [place], [place] to have egg retrieval at a fertility clinic. They did the procedure vaginally and punctured her bladder while retrieving some eggs. They prescribed Keflex and Pyridium. She drove home that same day and developed chest pain, shortness of breath, nausea and abdominal pain and had difficulty emptying her bladder. She was evaluated at [facility] on the same day 10/[address] scan of chest abdomen pelvis negative for PE. There were enlarged ovaries with numerous cysts and moderate volume ascites compatible with ovarian hyperstimulation syndrome. She also had a West placed for urinary retention. She was transferred to [facility] for definitive treatment. She statesthey attempted a [...] Her West [facility] x 1 week. She presents because she had a low-grade temperature of 99 ?F and still having nausea and generalizedabdominal pain and is urinating frequent small amounts. The chest pain and shortness of breath are much better. [facility] <CHERYL Weinstein - Last Filed: 10/14/24 21:43> [facility] Medical History Abnormal uterine bleeding Conceived by [...] 02/28/24 Unknown R x (FreeStyle Lexi 2 Thorofare) flash glucose sensor (FreeStyle #1 ea 02/28/24 Unknown Rx Lexi 2 Sensor kit) PNV no.151-iron 27 mg-folic 800 1 cap PO DAILY 5 Unknown History mcg-omega3 260 oo-npf-pxb-fish capsule ( Multi-DHA (with vitamin K)) cabergoline [...] Diabetes Uncle Diabetes Grandmother Diabetes Surgical History Daisy teeth extracted History of hysteroscopy Status post laparoscopy S/P D&C (status post dilation and curettage) Hx of lumpectomy History of tonsillectomy and adenoidectomy Social History adopted: No household members: spouse number of children: 0 current occupational status: employed current occupation: [employer] current occupational exposures/hazards: No pets and animals: Yes (Avoid litterbox) pets and animals: cat(s) and dog(s) history of recent travel: Yes ([facility]) out of state: Yes out of country: No sexually active: Yes Smoking Status: Former smoker Electronic Cigarette Use: with nicotine alcohol intake: never substance use type: does not use well-balanced diet: daily or most days caffeine: No eating out: 1-3 times/week during the past year weight has: increased > 10 lbs what type of physical activity do you participate in: none jessica/gnosticism: Spiritism seatbelt use: always do you feel safe [...] Ox 100 Oxygen Delivery Method Room Air [facility] <CHERYL Weinstein - Last Filed: 10/14/24 21:43> [facility] Narrative Medical decision making narrative: Differential includes but not limited to: Urinary retention, UTI, intra- abdominal infection, ovarian hyperstimulation, constipation 29-year-old female had eggs retrieval 3 days ago and was told her bladder was punctured. Since then she has had nausea, abdominal pain constipation, and urinary issues. She was at [facility] the last few days and they [...] % (Auto) 69.3 Lymph % (Auto) 21.9 Marathon % (Auto) 6.5 Eos % (Auto) 1.6 [...] Sl. Cloudy Urine pH 7.0 Ur Specific [place] 1.015 Urine Protein 30 H Urine Glucose [...] X-Ray 10/14/24 21:24 IMPRESSION: CONSTIPATION. Reading Location: [facility] <Dr. Soren Babcock MD - Last Filed: 10/14/24 21:46> [facility] MDM Narrative Medical decision making narrative: Differential includes but not limited to: Urinary retention, UTI, intra- abdominal infection, ovarian hyperstimulation, constipation 29-year-old female had eggs retrieval 3 days ago and was told her bladder was punctured. Since then she has had nausea, abdominal pain constipation, and urinary issues. She was at [facility] the last few days and they [...] % (Auto) 69.3 Lymph % (Auto) 21.9 Marathon % (Auto) 6.5 Eos % (Auto) 1.6 [...] Sl. Cloudy Urine pH 7.0 Ur Specific [place] 1.015 Urine Protein 30 H Urine Glucose [...] X-Ray 10/14/24 21:24 IMPRESSION: CONSTIPATION. Reading Location: [facility] Discharge Plan Triage Chief Complaint: Abd Pain ED Midlevel Provider: Anabella Malave ED Provider: Soren Babcock Dx/Rx/DC Orders Clinical Impression: Constipation, Abdominal pain, Ovarian hyperstimulation syndrome Instructions: Abdominal Pain, ED Constipation (Adult) Prescriptions: No Action omeprazole 20 mg tablet,delayed release (DR/EC) 20 mg PO DAILY (DME) FreeStyle Lexi 2 Thorofare Misc See Rx Instructions .Route Qty: 1 [...] you take magnesium citrate which is sold ihgb-xrk-viprhlm. Drink plenty of water and Gatorade to avoid dehydration as this will cause a lot of bowel movements. You also could be having pain from the ovarian hyperstimulation syndrome which should get better over time. I recommend follow-up with your SMALL ENGINE MECHANIC. Print Language: Iranian Disposition Disposition: Home, Self Care What to do if you have Problems For any increased pain, shortness of breath, bleeding, nausea or vomiting, chestpain, or any unexpected problems, contact your Primary Care Provider. Call [facility] ([phone]) or report to the closest Emergency Room. Call 911 if necessary. 10/14/242145 <Electronically signed by Soren Babcock MD> Cosigner Signature (if applicable): 10/14/242142 <Electronically signed by Anabella LUNA> CC: CHERYL Samano ~ Signed [facility] Work Phone: 1(978) 373-783804-13-2025 NoteGyn Discharge Summary Patient Name: Jose Edward [...] Follow up in 1-2 weeks with primary SMALL ENGINE MECHANIC, Dr. Velarde. Discharge instructions reviewed and questions [...] up: 1 to 2 weeks with primary SMALL ENGINE MECHANIC Condition on discharge: good and stable Discharge Date: 10/13/24 Comments: Home care, Follow-up care, restrictions reviewed. Jade Carmona DO 10/13/2024, 11:44 [place] [address]-13-2025 Hospital course Narrative* Jade Carmona DO - 10/13/2024 11:42 AM EDT Images from the original note were not included. Chain Sales Consultant Discharge Summary Patient Name: Jose Edward Patient [...] Follow up in 1-2 weeks with primary SMALL ENGINE MECHANIC, Dr. Velarde. Discharge instructions reviewed and questions [...] up: 1 to 2 weeks with primary SMALL ENGINE MECHANIC Condition on discharge: good and stable Discharge Date: 10/13/24 Comments: Home care, Follow-up care, restrictions reviewed. Jade Carmona DO 10/13/2024, 11:44 AM Cosigned by Gypsy Pelayo MD at 10/13/2024 12:56 PM EDT documented in this [facility]04-13-2025 History of Present illness Narrative* Jade Carmona DO - 10/13/2024 6:11 AM EDT Images from the original note were not included. BUSINESS INTELLIGENCE ARCHITECT Progress Note Date: 10/13/2024 Time: 6:11 AM [...] Problem: Ovarian hyperstimulation syndrome Please page the [facility] OBGYN Call RES group via Secure [...] distended. Awaiting paracentesis today. documented in this [facility]04-13-2025 Plan of care note* Care Plan [...] monitored and maintained or improved Outcome: Progressing [id number] Miscellaneous Notes* Care Plan - Lucinda Poe [...] or improved Outcome: Progressing documented in this [facility]04-12-2025 Plan of care note* Care Plan [...] monitored and maintained or improved Outcome: Progressing [id number] History and physical note* Jade Carmona, DO - 10/12/2024 5:56 AM EDT Images from the original note were not included. SMALL ENGINE MECHANIC H&P Patient Name: Jose Edward Patient : 1995 Room/Bed: [facility]/[address] Admission Date/Time: 10/12/2024 3:14 AM Primary Care Physician: Marco Melvin HPI: Jose Edward is a 29 y.o. female patient transferred from [facility] for concern for ovarian hyperstimulation syndrome. Patient recently had an egg retrieval in [place] 24 hours ago, she states that over [...] abdominal distention, nausea -Patient was evaluated at [facility] initially and obtained imaging as stated below, imaging is available on PACS -CT A/P 10/11 no traumatic abdominal aortic injury or retroperitoneal hematoma, markedly enlarged ovaries with numerous ovarian cysts and moderate volume ascites, compatible with ovarian hyperstimulation - CTA 10/11 no traumatic thoracic aortic aneurysm or mediastinal hematoma ectasia of the main pulmonary artery seen in pulmonary hypertension -Patient transferred to [facility] for further management -CBC, CMP, coags [...] pain management -Avoid NSAIDs Please page the [facility] OBGYN Call RES group via Secure [...] care as documented in the resident's note. [id number] Note Attestation signed by Malia Reina MD at 10/12/2024 10:19 PM Hospital Care (Independent): I independently saw and evaluated the patient. I agree with the findings and plan of care as documented in the resident's note. SMALL ENGINE MECHANIC H&P Patient Name: Jose Edward Patient : 1995 Room/Bed: [facility]/[address] Admission Date/Time: 10/12/2024 3:14 AM Primary Care Physician: Marco Melvin HPI: Jose Edward is a 29 y.o. female patient transferred from [facility] for concern for ovarian hyperstimulation syndrome. Patient recently had an egg retrieval in [place] 24 hours ago, she states that over [...] Normocephalic and atraumatic. Pulm (more content not included)...[facility]04-12-2025 History and physical note* Jade Carmona, DO - 10/12/2024 5:56 AM EDT Images from the original note were not included. SMALL ENGINE MECHANIC H&P Patient Name: Jose Edward Patient : 1995 Room[facility]Bed: [facility] A Admission Date/Time: 10/12/2024 3:14 AM Primary Care Physician: Marco Melvin HPI: Jose Edward is a 29 y.o. female patient transferred from [facility] for concern for ovarian hyperstimulation syndrome. Patient recently had an egg retrieval in [place] 24 hours ago, she states that over [...] abdominal distention, nausea -Patient was evaluated at [facility] initially and obtained imaging as stated below, imaging is available on PACS -CT A/P 10/11 no traumatic abdominal aortic injury or retroperitoneal hematoma, markedly enlarged ovaries with numerous ovarian cysts and moderate volume ascites, compatible with ovarian hyperstimulation - CTA 10/11 no traumatic thoracic aortic aneurysm or mediastinal hematoma ectasia of the main pulmonary artery seen in pulmonary hypertension -Patient transferred to [facility] for further management -CBC, CMP, coags [...] pain management -Avoid NSAIDs Please page the [facility] OBGYN Call RES group via Secure [...] in the resident's note. documented in this [facility]04-12-2025 Discharge summary [facility] Medical Records Department [address] [place] [address] Emergency Department Summary 10/11/24 MR#: [id number] Acct: [id number] Name: JOSE EDWARD Rep #:[id number] : 1995 29 From: Fern Marroquin DO PCP: CHERYL Samano Status:REG ER Location: ED HPI History of Present Illness Chief Complaint: Shortness of Breath Detail of Chief Complaint: Shortness of breath and abdominal pain Informant: patient Narrative Narrative: Patient presents to the emergency department complaint shortness of breath and abdominal pain that started this morning. [facility] [...] history of PE or DVT [facility] Medical History Abnormal uterine bleeding Conceived by [...] 02/28/24 Unknown R x (FreeStyle Lexi 2 Thorofare) flash glucose sensor (FreeStyle #1 ea 02/28/24 Unknown Rx Lexi 2 Sensor kit) PNV no.151-iron 27 mg-folic 800 1 cap PO DAILY 5 Unknown History mcg-omega3 260 ym-yex-tyy-fish capsule ( Multi-DHA (with vitamin K)) cabergoline [...] Diabetes Uncle Diabetes Grandmother Diabetes Surgical History Daisy teeth extracted History of hysteroscopy Status post laparoscopy S/P D&C (status post dilation and curettage) Hx of lumpectomy History of tonsillectomy and adenoidectomy Social History adopted: No household members: spouse number of children: 0 current occupational status: employed current occupation: [employer] current occupational exposures/hazards: No pets and animals: Yes (Avoid litterbox) pets and animals: cat(s) and dog(s) history of recent travel: Yes ([facility]) out of state: Yes out of country: No sexually active: Yes Smoking Status: Former smoker Electronic Cigarette Use: with nicotine alcohol intake: never substance use type: does not use well-balanced diet: daily or most days caffeine: No eating out: 1-3 times/week during the past year weight has: increased > 10 lbs what type of physical activity do you participate in: none jessica/gnosticism: Spiritism seatbelt use: always do you feel safe [...] transfer patient to tertiary care center at [facility] for definitive treatment. Discussed case with Dr. Covarrubias at [facility] who accepted transfer ofpatient to their [...] 87.1 H Lymph % (Auto) 8.2 L [place] % (Auto) 4.0 Eos % (Auto) 0.0 [...] Clarity Clear Urine pH 7.0 Ur Specific [place] 1.010 Urine Protein 30 H Urine Glucose [...] compatible with ovarian hyperstimulation syndrome. Reading Location: [facility] Discharge Plan Triage Chief Complaint: Shortness of Breath Other Complaint: Abd Pain ED Provider: Fern Marroquin Dx/Rx/DC Orders Clinical Impression: Abdominal pain, Ovarian hyperstimulation syndrome, Leukocytosis, Acute urinary retention Prescriptions: No Action omeprazole 20 mg tablet,delayed release (DR/EC) 20 mg PO DAILY (DME) FreeStyle Lexi 2 Thorofare Misc See Rx Instructions .Route Qty: 1 [...] PA [Primary Care Provider] - Print Language: Iranian Disposition Disposition: DC/Tx to Another Type of HCF What to do if you have Problems For any increased pain, shortness of breath, bleeding, nausea or vomiting, chestpain, or any unexpected problems, contact your Primary Care Provider. Call [facility] ([phone]) or report tothe closest Emergency Room. Call 911 if necessary. 10/12/245 Cosigner Signature (if applicable): CC: CHERYL Samano ~ Signed [facility]04-11-2025 Radiology Diagnostic study note [facility] Imaging Services [address] [place] [address] CTA Chst, Abd, Pel W and/or WO MR#: [id number] Acct: [id number] Name: JOSE EDWARD Rep #: [id number] : 1995 F 29 From: Afia Francis MD PCP: CHERYL Samano Status: REG ER Study:CTA Chst, Abd, Pel W and/or WO Date of Exam: 10/11/24 Exam# [id number] Ordering Dr: Delma Marroquin DO PROCEDURE: CTA [...] compatible with ovarian hyperstimulation syndrome. Reading Location: [facility] CC: Dr. Fern Marroquin DO; CHERYL Samano ~ Bank President: Signed [facility]04-11-2025 Discharge summary Author Fern Marroquin [facility] Note Date/Time October 12, 2024 12: 06am [facility] Medical Records Department [address] [place] [address] Emergency Department Summary 10/11/24 MR#: [id number] Acct: [id number] Name: JOSE EDWARD Rep #:[id number] : 1995 29 From: Fern Marroquin DO PCP: CHERYL Samano Status:REG ER Location: ED HPI History of Present Illness Chief Complaint: Shortness of Breath Detail of Chief Complaint: Shortness of breath and abdominal pain Informant: patient Narrative Narrative: Patient presents to the emergency department complaint shortness of breath and abdominal pain that started this morning. Patient states that she had driven [place] this morning to have egg retrieval at [...] No [facility] PE or [facility] Medical History Abnormal uterine bleeding Conceived by [...] 02/28/24 Unknown R x (FreeStyle Lexi 2 Thorofare) flash glucose sensor (FreeStyle #1 ea 02/28/24 Unknown Rx Lexi 2 Sensor kit) PNV no.151-iron 27 mg-folic 800 1 cap PO DAILY 5 Unknown History mcg-omega3 260 aq-fbk-nax-fish capsule ( Multi-DHA (with vitamin K)) cabergoline [...] Diabetes Uncle Diabetes Grandmother Diabetes Surgical History Daisy teeth extracted History of hysteroscopy Status post laparoscopy S/P D&C (status post dilation and curettage) Hx of lumpectomy History of tonsillectomy and adenoidectomy Social History adopted: No household members: spouse number of children: 0 current occupational status: employed current occupation: [employer] current occupational exposures/hazards: No pets and animals: Yes (Avoid litterbox) pets and animals: cat(s) and dog(s) history of recent travel: Yes ([facility]) out of state: Yes out of country: No sexually active: Yes Smoking Status: Former smoker Electronic Cigarette Use: with nicotine alcohol intake: never substance use type: does not use well-balanced diet: daily or most days caffeine: No eating out: 1-3 times/week during the past year weight has: increased > 10 lbs what type of physical activity do you participate in: none jessica/gnosticism: Spiritism seatbelt use: always do you feel safe [...] transfer patient to tertiary care center at [facility] for definitive treatment. Discussed case with Dr. Covarrubias at [facility] who accepted transfer of patient to [...] 87.1 H Lymph % (Auto) 8.2 L [place] % (Auto) 4.0 Eos % (Auto) 0.0 [...] Clarity Clear Urine pH 7.0 Ur Specific [place] 1.010 Urine Protein 30 H Urine Glucose [...] compatible with ovarian hyperstimulation syndrome. Reading Location: [facility] Discharge Plan Triage Chief Complaint: Shortness of Breath Other Complaint: Abd Pain ED Provider: Fern Marroquin Dx/Rx/DC Orders Clinical Impression: Abdominal pain, Ovarian hyperstimulation syndrome, Leukocytosis, Acute urinary retention Prescriptions: No Action omeprazole 20 mg tablet,delayed release (DR/EC) 20 mg PO DAILY (DME) FreeStyle Lexi 2 Thorofare Misc See Rx Instructions .Route Qty: 1 [...] PA [Primary Care Provider] - Print Language: Iranian Disposition Disposition: DC/Tx to Another Type of HCF What to do if you have Problems For any increased pain, shortness of breath, bleeding, nausea or vomiting, chestpain, or any unexpected problems, contact your Primary Care Provider. Call [facility] ([phone]) or report to the closest Emergency Room. Call 911 if necessary. 10/12/245 <Electronically signed by Fern Marroquin DO> Cosigner Signature (if applicable): CC: CHERYL Samano ~ Signed [facility] Work Phone: 1(901) 422-485312-18-2024 Evaluation note* Diagnosis Onset Date Resolution Status Admit Date Amenorrhea acute June 19, 2024 9:36am Pelvic floor dysfunction acute June 19, 2024 9:36am Vaginal discharge acute Decembe r 2023 9:36am [facility] Work Phone: 1(698) 359-183709-15-2024 Nurse Note* Maryellen Posey RN - 03/17/2024 6:40 PM EDT Mom discharged mom in good condition with all belongings to a private residence, accompanied by . All discharge instructions reviewed with patient who verbalizes understanding and denies further questions.Mom walked out at 1840 [facility]Txmogz82-84-9295 Nurse Note* Maryellen Posey RN - 03/17/2024 [...] cramping / contractions occur. documented in this [facility]09-15-2024 NoteDepartment of Obstetrics and Gynecology Delivery [...] Information for the patient's : Marcus Edward [[id number]] male 3 lb 6.7 oz (1.55 kg) Apgars: Information for the patient's : Marcus Edward [[id number]] : : Boy, Blood Type/Rh: O Antibody [...] Your Medications These medications were sent to [facility] [address] [place] [address] Hours: Monday to Monday 10 am to [...] [] Order a blood pressure kit through [facility] (or the patient's own pharmacy on the weekend) [] Order the blood pressure log through [employer] [] Place an office visit or telephone [...] notify her physician if any of these occur.[facility]09-15-2024 Hospital course Narrative* Wendi Aguilar MD [...] Information for the patient's : Marcus Edward [[id number]] male 3 lb 6.7 oz (1.55 kg) Apgars: Information for the patient's : Marcus Edward [[id number]] : : Boy, Blood Type/Rh: O Antibody [...] Your Medications These medications were sent to [facility] [address] [place] [address] Hours: Monday to Monday 10 am to [...] [] Order a blood pressure kit through [facility] (or the patient's own pharmacy on the weekend) [] Order the blood pressure log through [employer] [] Place an office visit or telephone [...] any of these occur. documented in this [facility]09-15-2024 Miscellaneous Notes* Note - Melissa Mantilla RN - 03/17/2024 8:00 AM EDT Check in with mom, pumping for 30 5/7 week in NICU. Mom is pumping 15cc per session. Observed pump session and resized her flanges to 22.5mm. Mom was given Spectra pump from [facility] fashion consultant sales. Answer mom's questions. Discharge today. * Care [...] be able to transfer baby to [facility]. Sw also dicussed her and can stay at bedside. Discussed with NICU Sw who did meet with parents to assist. No further needs anticipated. OK FOR DC * Care Coordination - Amy Connor RN - 03/15/2024 12:25 PM EDT Date: 03/15/2024 Name: Jose Edward : 1995 [facility] Patient Information Primary Caregiver: Self Accompanied by/Relationship: S/O;Family Marital Status: Support System: SO/Family Hoahaoism/Cultural Factors: none Activities of Daily Living Communication: [...] 30 6/7 weeks. [place] [facility] Nurse [...] electric breast pump- [facility].All questions answered. Will continue to monitor, encourage and support patient. * Significant Event - Savanah Duarte DO - 03/14/2024 6:59 PM EDT 1hr pp 249. Discussed with Dr. Mancia. Will give 4u. Savanah uDarte DO 03/14/2024 6:59 PM Came back from [...] closely. Savanah Duarte DO 03/13/2024 11:23 PM Wilson more cramping. 1cm dilated. Reportedly was 1cm [...] options for home going pump; pt has [employer] insurance. Availability of LC for NICU and reviewed. [facility] handout Your NICU Baby given and reviewed. Encouraged to watch videos from [employer] to support her goals. [facility] [employer] dept. Encouraged to call [...] in the possibility of staying at the [facility] after delivery due to living approx. 2 hours away; patient and provided background check paperwork; will be faxed to [facility] referral line; Will consult for patient as pt would like to see prior to delivery * Care Coordination - Amy Connor RN - 03/07/2024 10:58 AM EDT Date: 03/07/2024 Name: Jose Edward : 1995 [facility] Information [place] - transport Patient Information Primary Caregiver: Self Accompanied by/Relationship: S/O;Family Marital Status: Support System: SO/Family Hoahaoism/Cultural Factors: Activities of Daily Living Communication: See [...] N/A Children's Services: N/A documented in this [facility]09-15-2024 Obstetrics Note* Note - Melissa Mantilla RN - 03/17/2024 8:00 AM EDT Check in with mom, pumping for 30 5/7 week in NICU. Mom is pumping 15cc per session. Observed pump session and resized her flanges to 22.5mm. Mom was given Spectra pump from [facility] fashion consultant sales. Answer mom's questions. Discharge today. [facility] HospitalOwmopb80-73-0025 History of Present illness Narrative* Chelsie Swenson, [...] 03/14 - Dexcom in place (share code [id number]) - Discontinued meds after delivery and have [...] which is appropriate. RD sign off to geology technician to continue to monitor. Gypsy Kirby [...] anhydramnios; ROM rule out was deferred in [place] secondary to blood noted; transported to [facility] - in triage, SSE showed gross [...] diet - Dexcom in place, share code [id number] - Continue to monitor BGTs fasting and [...] anhydramnios; ROM rule out was deferred in [place] secondary to blood noted; transported to [facility] - in triage, SSE showed gross [...] diet - Dexcom in place, share code [id number] - Continue to monitor BGTs fasting and [...] infection. Primary patient of Edouard Paulson/Prachi in [place]. Alerted her RN today to continue temp [...] Jacey secondary to blood noted; transported to [facility] - in triage, SSE showed gross [...] diet - Dexcom in place, share code [id number] - Continue to monitor BGTs fasting and [...] anhydramnios; ROM rule out was deferred in [place] secondary to blood noted; transported to [facility] - in triage, SSE showed gross [...] diet - Dexcom in place, share code [id number] - Continue to monitor BGTs fasting and [...] admitted for PPROM Pertinent Background: Transferred from [place] for PPROM. Gross rupture confirmed on admit and anhydramnios at OSH ultrasound. Given BMZ, Mag for MATERIAL CONTROL ANALYST and latency antibiotics (amox only due to [...] BMZ for lung maturity and magnesium for MATERIAL CONTROL ANALYST. We discussed the indication for delivery with [...] anhydramnios; ROM rule out was deferred in [place] secondary to blood noted; transported to [facility]. In triage,SSE showed gross rupture of [...] (188 lb) (03/06) Weight Source: Not Specified [place] Body Weight (lbs) (Calculated): 110 lbs [place] Body Weight (Kg) (Calculated): 50 kg % [place] Body Weight (Calculated): 170.9 % BMI (kg/m2) [...] soon to determine Joanne Adame RD Contact: [employer] or *[phone] * Mary Alonso MD - 03/10/2024 7:11 AM EDT Images from the original note were not included. Maternal Medicine Service Resident Progress Note 03/10/2024 7:11 AM 03/06/2024 Hospital Day: 5 [place], 28 y.o. 30w1d Patient has been seen [...] mg Oral 3 times per day Juliana Nugyen DO 500 mg at 704 calcium gluconate [...] gel 15 g 15 g Oral PRN Keiyr Boles, DO lactated ringers infusion 125 mL/hr [...] anhydramnios; ROM rule out was deferred in [place] secondary to blood noted; transported to [facility] - in triage, SSE showed gross [...] diet - Dexcom in place, share code [id number] - Continue to monitor BGTs fasting and [...] admitted for PPROM Pertinent Background: Transferred from [place] for PPROM. Gross rupture confirmed on admit and anhydramnios at OSH ultrasound. Given BMZ, Mag for MATERIAL CONTROL ANALYST and latency antibiotics (amox only due to [...] BMZ for lung maturity and magnesium for MATERIAL CONTROL ANALYST. We discussed the indication for delivery with [...] Jacey secondary to blood noted; transported to [facility] - in triage, SSE showed gross [...] diet - Dexcom in place, share code [id number] - Continue to monitor BGTs fasting and [...] admitted for PPROM Pertinent Background: Transferred from [place] for PPROM. Gross rupture confirmed on admit and anhydramnios at OSH ultrasound. Given BMZ, Mag for MATERIAL CONTROL ANALYST and latency antibiotics (amox only due to [...] BMZ for lung maturity and magnesium for MATERIAL CONTROL ANALYST. We discussed the indication for delivery with [...] Jacey secondary to blood noted; transported to [facility] - in triage, SSE showed gross [...] diet - Dexcom in place, share code [id number] - Continue to monitor BGTs fasting and [...] at OSH ultrasound. Given BMZ, Mag for MATERIAL CONTROL ANALYST and latency antibiotics (amox only due to [...] BMZ for lung maturity and magnesium for MATERIAL CONTROL ANALYST. We discussed the indication for delivery with [...] Jacey secondary to blood noted; transported to [facility] - in triage, SSE showed gross rupture of membranes with nitrazine positive, ferning negative and visually closed - Latency Abx ordered, allergy to azithromycin so currently receiving ampicillin - s/p BMZx1 at 1415 at [place], second dose ordered for today - magnesium sulfate loading dose given at outside facility, undergoing continuous infusion at 1g/hrfor neuroprotection - CEFM - General carb controlled diet - Growth US this morning - Patient is breech and will be for CD if for delivery GDMA1 - Carb control diet - Dexcom in place, share code [id number] - Continue to monitor BGTs fasting and [...] Nguyen, 03/07/2024, 6:44 AM Associated attestation - Suamya Mancia MD - 03/07/2024 3:39 PM EDT [...] at OSH ultrasound. Given BMZ, Mag for MATERIAL CONTROL ANALYST and latency antibiotics (amox only due to [...] antibiotics, BMZ for lung maturityand magnesium for MATERIAL CONTROL ANALYST. We discussed the indication for delivery with any signs of infection. We reviewed the recommendation for inpatient admission until delivery and plan for delivery at 34 weeks unless indicated sooner for labor, infection or NRFS. All questions answered. Continue latency antibiotics for 7 days total. BMZ #2 this evening S/p Mag for MATERIAL CONTROL ANALYST x >12 hrs total- now stopped NICU [...] 3 weeks now. She was evaluated in [place] initially at that time with amnisure that [...] Patient a direct admission from Transfer from [place]. Please see my other H&P attestation documented in this [facility]09-13-2024 Note* Care Coordination - IRVING Rodriguez [...] No further needs anticipated. OK FOR DC [facility] [employer] Phone: 1(856) 210-597709-13-2024 Note* Care Coordination - IRVING Rodriguez - [...] No further needs anticipated. OK FOR DC [employer] Phone: [phone]) 271-330209-13-2024 Note* Care Coordination - Amy Connor RN - 03/15/2024 12:25 PM EDT Date: 03/15/2024 Name: Jose Edward : 1995 [facility] Patient Information Primary Caregiver: Self Accompanied by/Relationship: S/O;Family Marital Status: Support System: SO/Family Hoahaoism/Cultural Factors: none Activities of Daily Living Communication: [...] Equipment: Developmental Delay: N/A Children's Services: N/A [facility] [id number] Note* Care Coordination - Amy Connor RN - 03/15/2024 12:25 PM EDT Date: 03/15/2024 Name: Jose Edward : 1995 [facility] Patient Information Primary Caregiver: Self Accompanied by/Relationship: S/O;Family Marital Status: Support System: SO/Family Hoahaoism/Cultural Factors: none Activities of Daily Living Communication: [...] Equipment: Developmental Delay: N/A Children's Services: N/A [facility] [id number] Obstetrics Note* Note - Melissa Mantilla RN - 03/15/2024 7:00 AM EDT Initial visit with mom. This is mom's first baby, delivered at 30 6/7 weeks. [place] [facility] Nurse [...] continue to monitor, encourage and support patient. [facility] HospitalLgsucm52-73-0609 Hospital Discharge instructions* Discharge Instructions* Marcela Rapp PA-C - 03/15/2024 5:22 AM EDT Images from the original note were not included. Thank you for allowing us to care of you at [facility]. This time can be one [...] over the next few weeks. Bleeding may clam picker and then decrease again around 7-10 [...] avoid constipation you may take a mild savk-vxe-tzmnure stool softener (such as colace) as recommended [...] emergency, call 911 immediately. documented in this [facility]09-13-2024 Nurse Note* Yaritza Sanford RN - [...] of Humalog. Patient voiced understanding and agreeable. [id number] Note* Significant Event - Savanhamaricel Duarte DO - 03/14/2024 6:59 PM EDT 1hr pp 249. Discussed with Dr. Mancia. Will give 4u. Savanah DuarteDO 03/14/2024 6:59 PM Came back from [facility] and had eaten. Now 217. Will not eat further. Will give 4u. Advised on fasting BGT in the morning. Aware not to eat further for true fast in Am. Changed to ISHAN Duarte DO 03/15/2024 12:07 AM [employer] Phone: [phone]) 845-803609-12-2024 Note* Significant Event - Savanah Duarte DO [...] to ISHAN Duarte DO 03/15/2024 12:07 AM [employer] Phone: [phone]) 851-437409-12-2024 NotePatient: Jose Edward Procedure Summary Date: 03/14/24 Room / Location: [address] Labor and Delivery Anesthesia Start: 1113 [...] discharged once all PACU criteria has been met.[facility] [id number] NotePatient: Jose Edward Procedure Summary Date: 03/14/24 Room / Location: [address] Labor and Delivery Anesthesia Start: 1113 [...] Allowed opportunity for questions and acknowledgement of understanding.[facility]09-12-2024 NotePeripheral Block Time Out: 03/14/2024 12:37 PM Patient location during procedure: Procedural Start time: 03/14/2024 12:38 PM End time: 03/14/2024 12:40 PM Reason for block: at surgeon's request and post-op pain management Staffing Performed: ADDICTION SPECIALIST Anesthesiologist: Antonio Maria MD Resident/ADDICTION SPECIALIST: Carolyn Garza APRN - ADDICTION SPECIALIST Preanesthetic Checklist Completed: patient identified, IV checked, site marked, risks and benefits discussed, surgical consent, monitors and equipment checked, pre-op evaluation and timeout performed Region: [place] Primary: TAP (60ml of Bupivacaine 0.375% with dexamethasone 0.01% with epinephrine 1:200,000 divided evenly bilaterally) Peripheral Block Patient position: supine Prep: ChloraPrep Patient monitoring: heart rate, reconcilement clerk and continuous pulse ox O2: Room air [...] injection and Local anesthetic injected without difficultyMedications gpqOLLUAjnujp-bpykdvvsnnq-mxyfcltgyzc (TAP) syringe - Injection 60 mL - 03/14/2024 12:38:00 [facility]09-12-2024 NoteSpinal Block Time Out: 03/14/2024 11:17 AM Patient location during procedure: OB Start time: 03/14/2024 11:18 AM End time: 03/14/2024 11:20 AM Reason for block: primary anesthetic Staffing Performed: ADDICTION SPECIALIST Anesthesiologist: Antonio Maria MD Resident/ADDICTION SPECIALIST: Carolyn Garza APRN - ADDICTION SPECIALIST Preanesthetic Checklist Completed: patient identified, IV checked, [...] Assessment Sensory level: T4 Number of attempts: [address] [place], [place] [id number] NotePatient: Jose Edward Procedure Information Date/Time: 03/14/24 1100 Procedure: DELIVERY (Abdomen) Location: [facility] / [facility] Labor and Delivery Surgeons: Maria Dolores [...] who consented to blood products. Additional Equipment [facility]09-12-2024 Nurse Note* Yara Chinchilla RN - 03/14/2024 8:27 AM EDT Pt reports spotting on her pad and upon assessing urine found a few red specks in her urine [facility] HospitalTrqeph85-26-1957 Nurse Note* Venessa Gold RN - 03/14/2024 6:[address] Nguyen made aware that pt was just up to restroom and had a quarter size mucousy, bloody clot into toilet. No active bleeding noted. No change to plan of care at this time [facility] [id number] Nurse Note* Venessa Gold RN - 03/14/2024 4:53 AM EDT Pt made aware that order for nothing to eat or drink has been ordered by Dr. Duarte. She states understanding. I made her aware that I will be starting IV fluids also. [facility] HospitalGqeygc75-17-7589 Note* Significant Event - Savanah Duarte DO [...] closely. Savanah Duarte DO 03/13/2024 11:23 PM Wilson more cramping. 1cm dilated. Reportedly was 1cm [...] CEFM. Savanah Duarte DO 03/14/2024 4:09 AM [facility] HospitalLyixrx89-58-5998 Note* Significant Event - Savanah Duarte DO [...] closely. Savanah Duarte DO 03/13/2024 11:23 PM Wilson more cramping. 1cm dilated. Reportedly was 1cm [...] CEFM. Savanah Duarte DO 03/14/2024 4:09 AM [facility] HospitalXughno43-65-5254 Note* Care Coordination - Amy Connor RN - 03/13/2024 2:48 PM EDT Hospital day 8 at 30/4 weeks. PPROM. Voiced no needs or concerns. [place] [id number] Note* Care Coordination - Amy Connor RN - 03/13/2024 2:48 PM EDT Hospital day 8 at 30/4 weeks. PPROM. Voiced no needs or concerns. [place] [id number] Plan of care note* Care Plan - Rosio Woodruff RN - 03/13/2024 6:37 AM EDT The patient is Moderately Stable - Low risk of patient condition declining or worsening The patient's goals for the shift include remain The clinical goals for the shift include remain afebrile [place] [id number] Plan of care note* Care Plan - Rosio Woodruff RN - 03/13/2024 6:37 AM EDT The patient is Moderately Stable - Low risk of patient condition declining or worsening The patient's goals for the shift include remain The clinical goals for the shift include remain afebrile [facility] HospitalBhutcp25-01-1281 Consult note* Paola Cole MD - 03/12/2024 [...] from NICU Potential need for transfer to [facility] NICU if needs esclation of care, based [...] after she delivers/is discharged. Paola Cole MD [employer] Phone: [phone]) 841-711309-10-2024 Consult note* Paola Cole MD - 03/12/2024 [...] from NICU Potential need for transfer to [facility]'s NICU if needs esclation of care, based [...] has already submitted an application to [facility] in order to be closer for baby Josue after she delivers/is discharged. Paola Cole MD documented in this [facility]09-09-2024 Obstetrics Note* Note - Cheryl Marinelli [...] options for home going pump; pt has [employer] insurance. Availability of LC for NICU and reviewed. [facility] handout Your NICU Baby given and reviewed. Encouraged to watch videos from [employer] to support her goals. Resource numbers given for [facility] dept and [facility] [employer] dept. Encouraged to call with any questions / concerns. Pt receptive to my visit and education. Denies questions at this time. [facility] HospitalEqeirz63-86-0302 Note* Care Coordination - Amy Connor RN - 03/11/2024 4:10 PM EDT Hospital day 6 at 30/2 weeks. Anhydramnios PPROM at 30/2 weeks referral. Voiced no needs or concerns. [facility] HospitalVahfce76-57-7161 Note* Care Coordination - Amy Connor RN - 03/11/2024 4:10 PM EDT Hospital day 6 at 30/2 weeks. Anhydramnios PPROM at 30/2 weeks referral. Voiced no needs or concerns. [facility] HospitalBlnbpf66-26-0370 NoteNutrition Assessment Type and Reason for Visit: [...] anhydramnios; ROM rule out was deferred in [place] secondary to blood noted; transported to [facility]. In triage, SSE showed gross rupture [...] (188 lb) (03/06) Weight Source: Not Specified [place] Body Weight (lbs) (Calculated): 110 lbs [place] Body Weight (Kg) (Calculated): 50 kg % [place] Body Weight (Calculated): 170.9 % BMI (kg/m2) [...] soon to determine Joanne Adame RD Contact: [employer] or *[phone] App Partner [facility] HospitalSGG61-94-1780 Note* Care Coordination - Julianna Martinez RN - 03/08/2024 3:44 PM EDT Hospital Day 3; 29/6 weeks today; No concerns at this time; Pt states she is interested in the possibility of staying at the [facility] after delivery due to living approx. 2 hours away; patient and provided background check paperwork; will be faxed to [facility] referral line; Will consult for patient as pt would like to see prior to delivery [facility] HospitalUgysug49-23-6114 Note* Care Coordination - Julianna Martinez RN - 03/08/2024 3:44 PM EDT Hospital Day 3; 29/6 weeks today; No concerns at this time; Pt states she is interested in the possibility of staying at the [facility] after delivery due to living approx. 2 hours away; patient and provided background check paperwork; will be faxed to [facility] referral line; Will consult for patient as pt would like to see prior to delivery [facility] [id number] Note* Care Coordination - Amy Connor RN - 03/07/2024 10:58 AM EDT Date: 03/07/2024 Name: Jose Edward : 1995 [facility] Information [place] - transport Patient Information Primary Caregiver: Self Accompanied by/Relationship: S/O;Family Marital Status: Support System: SO/Family Hoahaoism/Cultural Factors: Activities of Daily Living Communication: See [...] N/A Developmental Delay: N/A Children's Services: N/A [id number]* Care Coordination - Amy Connor RN - 03/07/2024 10:58 AM EDT Date: 03/07/2024 Name: Jose Edward : 1995 [facility] Information [place] - transport Patient Information Primary Caregiver: Self Accompanied by/Relationship: S/O;Family Marital Status: Support System: SO/Family Hoahaoism/Cultural Factors: Activities of Daily Living Communication: See [...] N/A Developmental Delay: N/A Children's Services: N/A [id number] Nurse Note* Raegan Estrada RN - 03/07/2024 4:47 AM EDT RN called to bedside at 0435, pt reporting feeling increased leakage of fluid. Denies cramping, contractions, or pain, but does state feeling pressure which has become more constant. Dr Boles aware. Pt instructed to notify RN immediately if pressure intensifies or if cramping / contractions occur. [id number] History and physical note* Juliana Nguyen DO [...] 3 weeks now. She was evaluated in [place] initially at that time with amnisure that [...] breech on US today. Transport: Yes, from [place] Prior Hospitalizations: No Estimated Due Date: Estimated [...] for about 3 weeks - presented to [place] today complaining of LOF; - US was performed that showed anhydramnios; ROM rule out was deferred in [place] secondary to blood noted - concern for PROM, transported to [facility] - in triage, SSE showed gross rupture of membranes with nitrazine positive, ferning negative and visually closed - Latency Abx ordered, allergy to azithromycin so will proceed with only ampicillin - s/p BMZx1 at 1415 at [place], second dose ordered - magnesium sulfate loading dose given prior to transport, will order continuous infusion at 1g/hr for 12 hours for neuroprotection - CEFM overnight - General carb controlled diet ordered - growth US ordered for tomorrow AM GDMA1 - Carb control diet - has Dexcom in place, share code [id number] - will monitor BGTs fasting and 1 [...] 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 I discussed the assessment and management with the resident physician. I reviewed and agree with the findings and plan as documented in the note. Transferred from [place] for PPROM. 28yo at 29 4/7 weeks presents for PPROM. Gross rupture confirmed on exam with +nitrazine and +ferning. Cervix visually closed and patient overall comfortalbe. Ultrasound at transferring facility with anhydramnios. Breech presentation. Newly diagnosed GDMA1 Will admit for latency antibiotics, BMZ, and mag for neuroprotection. Pattern glucose. CS if for delivery. 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 I discussed the assessment and management with the resident physician. I reviewed and agree with the findings and plan as documented in the note. Transferred from [place] for PPROM. 28yo at 29 4/7 weeks [...] 3 weeks now. She was evaluated in [place] initially at that time with amnisure that [...] breech on US today. Transport: Yes, from [place] Prior Hospitalizations: No Estimated Due Date: Estimated [...] Not Performed ASSESSMENT AND (more content not included)...[facility]09-04-2024 History and physical note* Juliana Ace, [...] 3 weeks now. She was evaluated in [place] initially at that time with amnisure that [...] breech on US today. Transport: Yes, from [place] Prior Hospitalizations: No Estimated Due Date: Estimated [...] for about 3 weeks - presented to [place] today complaining of LOF; - US was performed that showed anhydramnios; ROM rule out was deferred in [place] secondary to blood noted - concern for PROM, transported to [facility] - in triage, SSE showed gross rupture of membranes with nitrazine positive, ferning negative and visually closed - Latency Abx ordered, allergy to azithromycin so will proceed with only ampicillin - s/p BMZx1 at 1415 at [place], second dose ordered - magnesium sulfate loading dose given prior to transport, will order continuous infusion at 1g/hr for 12 hours for neuroprotection - CEFM overnight - General carb controlled diet ordered - growth US ordered for tomorrow AM GDMA1 - Carb control diet - has Dexcom in place, share code [id number] - will monitor BGTs fasting and 1 [...] 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 I discussed the assessment and management with the resident physician. I reviewed and agree with the findings and plan as documented in the note. Transferred from [place] for PPROM. 28yo at 29 4/7 weeks presents for PPROM. Gross rupture confirmed on exam with +nitrazine and +ferning. Cervix visually closed and patient overall comfortalbe. Ultrasound at transferring facility with anhydramnios. Breech presentation. Newly diagnosed GDMA1 Will admit for latency antibiotics, BMZ, and mag for neuroprotection. Pattern glucose. CS if for delivery. Saumya Mancia MD documented in this [facility]04-11-2024 NotePap Smear Specimen AdequacyApril 2023 11:59pmComment.Satisfactory for evaluation. No endocervical component is identified.[facility] A#[id number] HospitalComment on above:Satisfactory for evaluation. No endocervical component is identified.10-12-2023 NotePap Smear Specimen AdequacyApril 2023 11:59pmComment.Satisfactory for evaluation. No endocervical component is identified.[facility] A#[id number] HospitalComment on above:Satisfactory for evaluation. No endocervical component is identified. 09-19-2023 Discharge summary Author Karlos Miller [facility] September 19, 2023 4:24pm Note Date/Time September 19, 2023 12: 23pm [facility] Medical Records Department [address] [place] [address] Emergency Department Summary 09/19/23 MR#: [id number] Acct: [id number] Name: JOSE EDWARD Rep #:[id number] : 1995 28 From: Karlos Sarmiento PCP: [...] Patient states the procedure was done in [place] but she follows with Dr. Velarde locally. [facility] Medical History Abnormal uterine bleeding (AUB) Alcohol [...] 0 current occupational status: employed current occupation: [employer] Smoking Status: Former smoker Electronic Cigarette Use: [...] 77.7 H Lymph % (Auto) 16.6 L [place] % (Auto) 4.6 Eos % (Auto) 0.2 [...] Sl. Cloudy Urine pH 8.0 Ur Specific [place] 1.010 Urine Protein Negative Urine Glucose (UA) [...] Patient was instructed to follow-up with her SMALL ENGINE MECHANIC in 2 to 3 days. Patient was [...] your Primary Care Provider. Call [facility] ([phone]) or report to the closest Emergency Room. Call 911 if necessary. 09/19/23 1624 <Electronically signed by Karlos Miller DO> Cosigner Signature (if applicable): CC: CHERYL Samano ~ Signed [facility] Work Phone: 1(873) 238-344406-02-[address] Villareal [facility] December 02, 2022 10:42am Note Date/Time December 02, 2022 10:39 am [facility] Medical Records Department [address] [place] [address] Instructions for Home/Discharge Instructions 12/02/22 1038 MR#: [id number] Acct: [id number] Name: JOSE EDWARD Rep #:[id number] : 1995 27 From: Julianna Newman DO PCP: CHERYL Samano Status:[facility] Discharge Instructions Diet [...] Newman DO CC: CHERYL Melvin ~ Signed [facility] Work Phone: 1(729) 745-447106-02-2023 Procedure [facility] 12-02-2022 History and physical note Author Dr. Villareal [facility] December 02, 2022 10:38am Note Date/Time December 02, 2022 10:38 am [facility] Medical Records Department [address] [place] [address] History & Physical Exam 12/02/22 1037 MR#: [id number] Acct: [id number] Name: JOSE EDWARD Rep #:[id number] : 1995 27 From: Julianna Newman DO PCP: CHERYL Samano Status:[facility] Location: [place] [address] History and Physical Date of Admission: 12/02/22 Intake Vital Signs ? 11/09/2310:22 11/09/2310:22 Height 5 ft 2 in 5 ft 2 in Weight: 156 lb 6 oz ? BMI 28.5 ? BP 116/76 ? Intake Visit Reasons:?diagnostic lap & fulguration Vat Tender Required: No Is patient in pain?: No [...] 0 current occupational status:? employed current occupation:? [employer] Smoking Status:? Current every day smoker Electronic [...] success. was seeing Dr. Del Real at [facility] and had a hysteroscopy D&C [...] CHERYL Melvin; Dr. Julianna Newman DO~ Signed [facility] Work Phone: 1(252) 267-898704-14-2023 NotePap Smear Specimen AdequacyApril 2022 5:09pmComment.Satisfactory for evaluation. Endocervical and/or squamous metaplasticcells (endocervical component)are present.[facility] A#[id number] HospitalComment on above:Satisfactory for evaluation. Endocervical and/or [...] advise. Yas Hogan RN [facility] History of Past illness Narrative* Problem Noted Date Resolved Date Blurring of vision 09/13/2011 11/05/2018 Dizziness 05/10/2011 11/05/2018 Ingrowing nail 04/06/2011 07/28/2021 Cellulitis and abscess of toe, unspecified 03/1711/05/2018 documented as of this encounter (statuses as of 04/08/2022) [facility] HospitalEvaluation noteNo assessment information availableWKettering Health Preble Work Phone: Evaluation note* Diagnosis Onset Date Resolution Status Encounter for routine gynecological examination noneactive Abnormal uterine bleeding ac torres martinez Infertility acute Abnormal uterine bleeding ac torres martinez Infertility acute [facility] Work Phone: evaluation note* Diagnosis Onset Date Resolution Status Abnormal uterine bleeding ac torres martinez Infertility acute Infertility acute Status post laparoscopy [facility] Work Phone: evaluation note* Diagnosis Onset Date Resolution Status Abnormal uterine bleeding ac torres martinez Status post laparoscopy [facility] Work Phone: evaluation note* Diagnosis Onset Date Resolution Status Abnormal uterine bleeding ac torres martinez [facility] Work Phone: evaluation note* Diagnosis Onset Date Resolution Status Abnormal uterine bleeding ac torres martinez Abnormal uterine bleeding ac torres martinez Conceived by in vitro fertilization acute Genetic testing of female ac torres martinez Infertility acute PCOS (polycystic ovarian syndrome) acute acute Supervision of high-risk acute Anxiety and depression chron ic [facility] Work Phone: evaluation note* Diagnosis Onset Date Resolution Status Abnormal uterine bleeding ac torres martinez Abnormal uterine bleeding ac torres martinez Conceived by in vitro fertilization acute Genetic testing of female ac torres martinez Infertility acute PCOS (polycystic ovarian syndrome) acute acute Supervision of high-risk acute Anxiety and depression chron ic Conceived by in vitro fertilization acute Genetic testing of female ac torres martinez Infertility acute acute Supervision of high-risk acute Anxiety and depression chron ic [facility] Work Phone: evaluation note* Diagnosis Anhydramnios in third trimester, single or unspecified fetus- Primary Anhydramnios in third trimester, single or unspecified fetus Vaginal bleeding in , third trimester S/P documented in this encounter [facility] note* Diagnosis History of gestational diabetes Personal history of gestational diabetes [facility]* Diagnosis Ovarian hyperstimulation syndrome- Primary Other ovarian hyperfunction Ovarian hyperstimulation syndrome Other ovarian hyperfunction documented in this encounter [facility] note* Diagnosis Onset Date Resolution Status Admit Date Encounter for routine gynecological examination noneactive Sept2024 2:30pm [facility] Work Phone: Hospital Discharge instructions Additional Instructions Plenty of fluids and rest to replace your blood loss. Motrin and Tylenol for pain and cramping. Follow-up with your SMALL ENGINE MECHANIC to ensure you are improving. Your test was negative. Your blood counts were normal.[facility] Work Phone: Hospital Discharge instructions Additional Instructions Implant Used?: [facility] Work Phone: Hospital Discharge instructions Additional Instructions The x-ray of your abdomen shows significant constipation. I recommend you take magnesium citrate which is sold [id number]. Drink plenty of water and Gatorade to avoid dehydration as this will cause a lot of bowel movements. You also could be having pain from the ovarian hyperstimulation syndrome which should get better over time. I recommend follow- up with your SMALL ENGINE MECHANIC.[facility] Work Phone: Reason for referral (narrative)No reason for referral information availableLancaster [facility] Hospital Work Phone: Reidit for visit Narrative* Auth/Cert (Routine) Specialty Diagnoses / Procedures Referred By Contac t Referred To Contact Diagnoses Ovarian hyperstimulation syndrome Ovarian hyperstimulation syndrome Procedures . Barak Covarrubias MD [address] [place] [address] [address] [place] [address] Phone: tel: fax: [facility] Medical Surgical Unit [address] [place] [address] Phone: tel: Referral ID Status Reason Start Date Expiration Date Visits Re quested Visits Authorized [id number] 1 1 [facility] Health Summary Purpose Family History No Family History Records Found Relationship Condition Age at Onset Recorded Date/T heebr mother Diabetes mellitus Unknown uncle Diabetes mellitus Unknown grandmother Diabetes mellitus Unknown Advance Directives No Advanced Directives Records Found Advance Directive Response Recorded Date/ Time Living Will No April 08 7:23pm Power of Screwhead Stoner And Polisher No April 08 022 7:23pm Advance Directive Response Recorded Date/ Time Living Will No November 22, 2022 1 0:47am Power of Screwhead Stoner [employer] Polisher No November 22, 2022 10:47am Advance Directive Response Recorded Date/ Time Living Will No November 22, 2022 9 :47am Power of Screwhead Stoner And Polisher No November 22, 2022 9:47am Advance Directive Response Recorded Date/ Time Living Will No September 19, 2023 1:13pm Power of Screwhead Stoner And Polisher No September 18 1:13pm Advance Directive Response Recorded Date/ Time Living Will No October 12, 2023 3:47pm Power of Screwhead Stoner And Polisher No October 11 3:47pm Date Activated Date Inactivated Comments 03/06/2024 5:26 PM 03/17/2024 8:57 PM Advance Directive Response Recorded Date/ Time Living Will No October 11, 2024 9:40pm Do you have a Healthcare Power of Screwhead Stoner And Polisher? No October 11, 2024 9:40pm Date Activated Date Inactivated Comments 10/12/2024 3:53 AM 10/13/2024 2:55 PM Date Activated Date Inactivated Comments 03/06/2024 5:26 PM 03/17/2024 8:57 PM Advance Directive Response Recorded Date/ Time Living Will No October 11, 2024 9:40pm Do you have a Healthcare Power of Screwhead Stoner And Polisher? No October 11, 2024 9:40pm Living Will No October 14, 2024 8:36pm Do you have a Healthcare Power of Screwhead Stoner And Polisher? 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) March 06, 2025 2:30pm Reason for Visit Admit Date Encounter for routine gynecological exam ination March 06, 2025 2:30pm Additional Source Comments INFORMATION SOURCE (unrecogn ized section and content) DATE CREATED AUTHOR 08/05/2021 [facility] DATE CREATED AUTHOR AUTHOR'S ORGANIZ ATION 05/06/2023 [facility] DATE CREATED AUTHOR AUTHOR'S ORGANIZ ATION 05/15/2024 [facility] DATE CREATED AUTHOR AUTHOR'S ORGANIZ ATION 10/14/2024 [facility] DATE CREATED AUTHOR AUTHOR'S ORGANIZ ATION 04/09/2025 [facility] DATE CREATED AUTHOR AUTHOR'S ORGANIZ ATION 04/27/2025 [facility] DATE CREATED AUTHOR AUTHOR'S ORGANIZ ATION 05/14/2025 LUBA CALDWELL N Source Comments (unrecognize d section and content) In the event this informatio n is protected by the Federal Confidentiality of Alcohol and Drug Abuse Patient Records regulations: The Federal rules restrict any use of the information to criminally investigate or prosecute any alcohol or drug abuse patient.[facility] Reason for Visit (unrecogniz ed section and content) Reason Comments Heavy Bleeding Reason Comments Rupture of Membranes Specialty Diagnoses / Procedures Referred By Contac t Referred To Contact Diagnoses Anhydramnios in third trimester, single or unspecified fetus Procedures . Saumya Mancia MD [address] [place] [address] [address] [place] [address] Referral ID Status Reason Start Date Expiration Date Visits Re quested Visits Authorized [id number] 1 1 Care Teams (unrecognized sec tion and content) Stemmer Machine Relationship Specialty Start Date End Date Zbigniew Matta MD [address] [place], [place] [id number] PCP - General Family Medicine 11/06/18 Team [...] Provider, Referring Pro vider Active Denny Bauer MATERIAL CONTROL ANALYST, MATERIAL CONTROL ANALYST-C Attending Provider Active Team Status: Inactive Member Role Status Dates Marco Melvin PA Primary Care Provider Active Denny Bauer MATERIAL CONTROL ANALYST, MATERIAL CONTROL ANALYST-C Attending Provider, Referring Provider Active Stemmer Machine Relationship Specialty Start Date End Date Jeff Nguyen MD [address] [facility] [address] [place] [address] PCP - General 03/11/14 Team Status: Active [...] October 11, 2024 End: October 12, 2024 Stemmer Machine Relationship Specialty Start Date End Date Marco Melvin [address] [place] [address] [place] [address] PCP - General 10/12/24 Team Status: Inactive [...] Status: Inactive Member Role/Relationship Status Dates CHERYL aSmano Primary care physician Active Start: March 24, [...] sucrose (Venofer) 0709 (Not Given - Provider: Mrayellen Lawson RN - Reason: Order parameters not [...] sedation for opioid reversal - MUST notify supervisor commissary production provider immediately after first dose, may give [...] Provider: Yaritza Sanford, HENRIQUE)1401 (Given - Provider: Mareyllen Lawson, HENRIQUE)1758 (Given - Provider: Maryellen Lawson RN)2202 (See Alternative - Provider: Sonja Phipps, HENRIQUE) 0314 (Given - Provider: Sonja Phipps, RN)0910 (Given - Provider: Hollie Avalos RN)1308 (See Alternative - Provider: Hollie Avalos RN)1703 (See Alternative - Provider: Yolanda Qiugley RN)2306 (Given - Provider: Sonja Phipps, HENRIQUE) [...] hours PRN, moderate pain (4-6), Starting on Alli 03/14/24 at 1500, , If oral and [...] sedation for opioid reversal - MUST notify supervisor commissary production provider immediately after first dose, may give [...] BE BASED ON THE PRIMARY CLINICAL RECORDS. [facility] [facility]. provides no warranty or guarantee of the accuracy or completeness of information in this document.
--- NOTE | 2025-06-29 15:47 | PCM.HP.OB ---
HPI - General HPI Narrative JOSE EDWARD, is a 29 y/o who is status post IVF with suspicious findings on ultrasound of ectopic . Her quant increased from 2245 to 2983 from monday to today. Ultrasound monday did not show any adnexal or ectopic structures however today upon repeat the ultrasound shows a 1.5 cm structure. She denies pain or cramping and denies bleeding. ultrasound: In-vitro fertilization transfer on June 03, 2025 TECHNIQUE: Procedure Code: USTVAGP Modality: US Procedure: TRANSVAGINAL W/PREG US COMPARISON: 06/27/2025 FINDINGS Uterus: The uterus measures 8.8 x 5.2 x 3.9 cm. A fibroid is noted in the right fundus measuring 1.1 x 1.1 x 0.6 cm. No intrauterine gestational sac is visualized. The endometrium is heterogenous and measures up to 0.6 cm. The right ovary measures 2.5 x 1.9 x 2.4 cm. The left ovary measures 3.4 x 2.1 x 1.6 cm. Normal color flow is noted. Within the left adnexa, there is a heterogenous structure adjacent to the left ovary with some increased vascularity measuring 1.5 x 1.6 x 1.8 cm. US/Transvaginal w/Preg US IMPRESSION: Within the left adnexa, there is a heterogenous structure adjacent to the left ovary with some increased vascularity measuring 1.5 x 1.6 x 1.8 cm. Given there is no intrauterine gestational sac and recent in-vitro fertilization implantation, this is suspicious for ectopic . Recommend follow-up with serial beta HCG and pelvic ultrasound. No evidence of ovarian torsion. PFSH [facility] Medical History Abnormal uterine bleeding Conceived by in vitro fertilization Supervision of high-risk Decreased movement False labor before 37 completed weeks of gestation premature rupture of membranes (PPROM) with unknown onset of labor Genetic testing of female Wears contact lenses Anxiety Alcohol use Heartburn Vapes nicotine containing substance Endometrial polyp Abnormal uterine bleeding (AUB) Home Medications ?Medication ?Instructions ?Recorded ?Last Taken ?Type omeprazole 20 mg tablet,delayed 40 mg PO DAILY 10/03/23 02/16/24 08:00 History release 20 mg cholecalciferol (vitamin D3) 50 2,000 unit PO DAILY 10/11/24 Unknown History mcg (2,000 unit) capsule (D3-2000) metformin 750 mg tablet,extended 750 mg PO DAILY 10/11/24 Unknown History release 24 hr prednisone 10 mg tablet 10 mg PO BID 10/11/24 Unknown History multivitamin no.47-iron fum 27 1 cap PO DAILY #90 caps 01/14/25 Unknown Rx mg-folate no.1 1 mg-dha 300 mg capsule (PNV-DHA) enoxaparin 30 mg/0.3 mL 30 mg subcut Q24H 03/06/25 Unknown History subcutaneous syringe (Lovenox) loratadine 10 mg tablet (Claritin) 10 mg PO QDAY 03/06/25 Unknown History naltrexone 1.5 mg capsule 3 mg PO .once a day 03/06/25 Unknown History estradiol 2 mg tablet 2 mg PO TID 06/27/25 Unknown History levothyroxine 25 mcg tablet 25 mcg PO DAILY 06/27/25 Unknown History (Euthyrox) progesterone 50 mg/mL 50 mg IM DAILY 06/27/25 Unknown History intramuscular oil progesterone micronized 200 mg 200 mg PO QHS 06/27/25 Unknown History capsule (Prometrium) tacrolimus 1 mg capsule, 1 mg PO TID 06/27/25 Unknown History immediate-release (Prograf) Allergy/AdvReac Type Severity Reaction Status Date / Time Latex, Natural Rubber Allergy Intermediate Other Verified 06/29/25 09:44 azithromycin (From Zithromax) Allergy JOHN Verified 06/29/25 09:44 VIJI'S SYNDROME venlafaxine Allergy Other Verified 06/29/25 09:44 Family History Mother Diabetes Uncle Diabetes Grandmother Diabetes Surgical History [place] teeth extracted History of hysteroscopy Status post laparoscopy S/P D&C (status post dilation and curettage) Hx of lumpectomy History of tonsillectomy and adenoidectomy Social History adopted: No household members: spouse number of children: 1 current occupational status: employed current occupation: [employer] current occupational exposures/hazards: No pets and animals: Yes (Avoid litterbox) pets and animals: cat(s) and dog(s) history of recent travel: Yes ([facility]) out of state: Yes out of country: No sexually active: Yes Smoking Status: Never smoker Electronic Cigarette Use: with nicotine alcohol intake: never substance use type: does not use well-balanced diet: daily or most days caffeine: No eating out: 1-3 times/week during the past year weight has: increased > 10 lbs what type of physical activity do you participate in: none jessica/samaritan: Yarsanism seatbelt use: always do you feel safe at home: Yes additional social history: - Rene- Chuck History 3 Elective abortions Hx Para 1 Spontaneous abortions 2 Hx # Term Pregnancies Ectopic pregnancies Hx # Pregnancies 1 Multiple births # of living children 1 Past Pregnancies Del. Date Name GA/Weeks Outcome Route Bth Weight Infant Gen Labor Lgth Anesthesia Del Locatn Provider FOB 01/15/18 7 spontaneous 08/05/23 chemical 5 03/14/24 Josue 30 live - 3lbs 6oz Male spinal [facility] Delivery Date: 03/14/24 Last Updated by: Makenzie Montesinos RN See problem list for complications ROS Constitutional Constitutional: Denies change in weight, fatigue, fever(s), headache(s), poor appetite or weakness Eyes Eyes: Denies blurry vision, change in vision, seeing flashes or spots in vision ENT HEENT: Denies dizziness, headache(s), loss taste/smell or sore throat Cardiovascular Cardiovascular: Denies chest pain, dizziness, dyspnea, irregular heart rhythm, leg edema, palpitations, rapid heart rate or vomiting Respiratory/Chest Respiratory/Chest: Denies chest tightness, cough, dyspnea or breast pain Gastrointestinal Gastrointestinal: Denies abdominal pain, anorexia, constipation, cramping, diarrhea, hemorrhoids, vomiting or weight changes Genitourinary Genitourinary: Denies dysuria, flank pain, genital lesions, genital pain, urinary frequency or urinary urgency Musculoskeletal Musculoskeletal: Denies back pain, difficulty walking, joint pain, limited range of motion, muscle cramps or numbness Integumentary Integumentary: Denies lesions or unusual bruising Neurologic Neurologic: Denies abnormal movements, abnormal speech, dizziness, numbness, seizure-like activity or syncope Psychiatric Psychiatric: Denies anxiety, behavioral changes, change in appetite, change in libido, cognitive impairment, confusion, depression, difficulty concentrating, hallucinations or suicidal thoughts Endocrine Endocrinology: Denies excessive sweating, polydipsia or polyuria Hematologic/Lymphatic Hematologic/Lymphatic: Denies easy bleeding, easy bruising or lymphadenopathy Allergic/Immunologic Allergic/Immunologic: Denies itchy eyes, lip swelling, seasonal rhinorrhea, rhinitis, throat swelling, tongue swelling, eczemia, wheezing or asthma Vital Signs Vital Signs Vital Signs: 06/29/25 09:42 06/29/25 11:42 06/29/25 13:00 Temperature 98.2 F Temperature Source Oral Pulse Rate 124 H 101 H 87 Respiratory Rate 18 16 16 Blood Pressure 141/97 H 108/73 113/86 H Blood Pressure Mean 111 84 95 Blood Pressure Source Blood Pressure Position Blood Pressure Location Pulse Ox 99 99 99 Oxygen Delivery Method Room Air Room Air Room Air 06/29/25 14:39 06/29/25 14:43 Temperature 98.4 F 98.4 F Temperature Source Oral Pulse Rate 86 88 Respiratory Rate 16 16 Blood Pressure 120/82 H 120/82 H Blood Pressure Mean 94 94 Blood Pressure Source Monitor Blood Pressure Position Semi-Fowlers Blood Pressure Location Left Arm Pulse Ox 98 98 Oxygen Delivery Method Room Air Weight Weight: 173 lb 1 oz Body Mass Index (BMI) 31.6 Physical Exam Const alert, oriented x3, no apparent distress and healthy appearing General Appearance: cooperative; Negative for anxious HEENT normocephalic Face and Sinus: normal facial exam Eyes EOMs intact bilaterally and no scleral icterus General Eye: normal appearance of both eyes Neck full ROM and supple Lymph Lymphatic: no lymphadenopathy noted Chest Chest: abnormal inspection of the chest Resp normal respiratory effort Effort and Inspection: able to speak in complete sentences GI soft to palpation and non-tender Inspection: gravid Palpation: soft; Negative for tender Extremity normal to inspection, full ROM and no clubbing, cyanosis or edema General Extremity: Negative for calf tenderness or edema Skin Lesions: no lesions Rashes: no rashes Psych mental status grossly normal Labs Labs Labs: Blood Type O POSITIVE Antibody Screen NEGATIVE Hct, (37-47) 43.1 % Hgb, (12.0-15.0) 14.9 g/dL Obstetrics Ultrasound Syphilis Total Ab Non-reactive VZV IgG Antibody, (Non Reactive) Reactive Rubella IgG Antibody, (Nonreactive) Reactive Hep Bs Antigen, (Nonreactive) Non-Reactive Hepatitis C Antibody, (Nonreactive) Non-Reactive Chlamydia DNA (EDUARDO), (Negative) Negative N.gonorrhoeae DNA (EDUARDO), (Negative) Negative HIV 1&2 Antibody, (Nonreactive) Non-Reactive Glucose 1 Hr 50 gm, (70-140) 166 mg/dL H Gest Glucose Tolerance MG/DL Assessment & Plan (1) Ectopic : (2) In vitro fertilization: (3) First trimester : PLAN: Plan After discussing the patient's diagnosis and treatment plan options, patient wishes to proceed with surgical management. I have discussed with the patient the risks, benefits, and alternatives of the procedure which include but are not limited to risks of anesthesia, bleeding, infection, possible damage to bowel, bladder, or surrounding vasculature which could lead to additional surgery to evaluate any complications. Patient agrees to procedure and wishes to proceed. plan is for laparoscopic bilateral salpingectomy, removal of ectopic . patient has choose to have both fallopian tubes removed to prevent this from happening again in the future. She understands that all of her pregnancies must occur with IVF and this is her decision.
--- NOTE | 2025-06-29 15:49 | PCM.PRE.AN2 ---
ASA Classification* ASA Classification ASA Classification: 1 and E Assessment & Plan Anesthesia* Anesthesia Assessment Anesthesia Assessment: Discussed sedation and/or anesthesia options, risks, benefits, and alternatives with patient/parents/legal guardian/POA. Questions invited. The patient/parents/legal guardian/POA seems to understand and agrees to proceed with anesthesia plan. Reviewed the physical assessment, medical history, allergy history and patient home medications list prior to surgery/procedure/anesthetic and documented any changes. Performed airway and anesthesia risk assessments. Anesthesia Type Anesthesia Type: General History Source History Obtained from:: Patient and Chart Anesthesia Focused Assessment* Temperature: 98.4 F Pulse Rate: 88 Blood Pressure: 120/82 Respiratory Rate: 16 Pulse Ox: 98 Airway Assessment Mouth opens: >3 cm Mallampati Score: II Teeth Condition: Intact Neck Range of motion (ROM): Full ROM Labs Anesthesia Preop lab: CBC WBC, (4.4-11.0) 19.6 K/mm3 H Today, 13:15 RBC, (4.2-5.4) 4.93 M/mm3 Today, 13:15 Hgb, (12.0-15.0) 14.9 g/dL Today, 13:15 Hct, (37-47) 43.1 % Today, 13:15 Plt Count, (150-450) 359 K/mm3 Today, 13:15 CHEMISTRY Potassium, (3.5-5.1) 3.5 mmol/L Today, 13:15 Sodium, (135-145) 139 mmol/L Today, 13:15 BUN, (4-19) 10 mg/dL Today, 13:15 Creatinine, (0.70-1.20) 0.48 mg/dL L Today, 13:15 Glucose, (70-99) 97 mg/dL Today, 13:15 POC Glucose, (74-106) 80 mg/dL 03/06/24, 14:43 TSH, (0.300-4.200) 1.610 uIU/mL 03/31/25, 07:19 COAG HCG, Quant, (<9 non-preg) 2983 mIU/mL H Today, 09:54 Urine Test Negative Negative 12/02/22, 09:20 Pre-Assessment Diagnosis/Proposed Procedure Planned Operative Procedure(s): Laparoscopic ectopic removal Anesthesia History Anesthesia History - peoplesoft hrms developer: Anesthesia History - peoplesoft hrms developer Hx Hospitalization No 06/19/24 10:15 Any Problems With Anesthesia No 06/29/25 14:43 Cholinesterase deficiency No 06/29/25 14:43 You/Your Family Experience No 06/29/25 14:43 fever (hyperthermia) with Relationship Recent Exposure to Contagious No 06/29/25 14:43 Disease Does patient have nerve No 06/29/25 14:43 stimulator Patient instructed to have device shut off --Does patient have Pacemaker or ICD? When Was Last Pacemaker Check n/a 06/29/25 14:43 QUESTION #4 FULL TEXT: You/Your Family Experience fever (hyperthermia) with Anesthesia Last Oral Intake Last Oral intake: Last Oral Intake NPO since Meds taken in AM with sips of water? Meds patient instructed to take am of surgery PONV PONV - peoplesoft hrms developer: PONV - peoplesoft hrms developer Female HX of Motion Sickness HX of N/V After Surgery Non-Smoker Duration of Surgery greater than 60 minutes Number of Risk Factors PONV Score Height & Weight Height & Weight: Anesthesia: Height & Weight Height 5 ft 2 in 06/29/25 14:43 Weight: 78.5 kg 06/29/25 14:43 Body Mass Index (BMI) 31.6 06/29/25 14:43 Respiratory Assessment Respiratory Assessment - peoplesoft hrms developer: Respiratory Tract Infection Hx - peoplesoft hrms developer Hx Respiratory Tract Infection No 06/29/25 14:43 STOP Sleep Apnea STOP Sleep Apnea - peoplesoft hrms developer: STOP Sleep Apnea - peoplesoft hrms developer Hx Hypertension No 06/29/25 14:43 Hx Sleep Apnea No 06/29/25 14:43 CPAP BIPAP Do you snore loudly (louder No 06/29/25 14:43 than talking or can be heard Do you often feel tired/ No 06/29/25 14:43 fatigued/ sleepy during daytime? Has anyone observed you stop No 06/29/25 14:43 breathing during sleep? STOP Results Negative 06/29/25 14:43 QUESTION #5 FULL TEXT : Do you snore loudly (louder than talking or can be heard through closed doors)? 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 Specify any problems Hx of Preganancy in last 3 Months Nurse Filling Out Transfusion & Questions: Date: Time: Patient unable to answer at this time (ie. confused, unrespo /Reproduction History /Reproductive History - peoplesoft hrms developer: /Reproductive Hx- peoplesoft hrms developer Hx Now Yes: eptopic 06/29/25 14:43 Gestational Age (in weeks): EDC: Hx Hx Para Hx Section SAB No 06/29/25 14:43 Does the father of the baby or his family experience fever w Father of the baby Malignant Hypertension history comment [facility] Medical History Abnormal uterine bleeding Conceived by in vitro fertilization Supervision of high-risk Decreased movement False labor before 37 completed weeks of gestation premature rupture of membranes (PPROM) with unknown onset of labor Genetic testing of female Wears contact lenses Anxiety Alcohol use Heartburn Vapes nicotine containing substance Endometrial polyp Abnormal uterine bleeding (AUB) Home Medications ?Medication ?Instructions ?Recorded ?Last Taken ?Type omeprazole 20 mg tablet,delayed 40 mg PO DAILY 10/03/23 02/16/24 08:00 History release 20 mg cholecalciferol (vitamin D3) 50 2,000 unit PO DAILY 10/11/24 Unknown History mcg (2,000 unit) capsule (D3-2000) metformin 750 mg tablet,extended 750 mg PO DAILY 10/11/24 Unknown History release 24 hr prednisone 10 mg tablet 10 mg PO BID 10/11/24 Unknown History multivitamin no.47-iron fum 27 1 cap PO DAILY #90 caps 01/14/25 Unknown Rx mg-folate no.1 1 mg-dha 300 mg capsule (PNV-DHA) enoxaparin 30 mg/0.3 mL 30 mg subcut Q24H 03/06/25 Unknown History subcutaneous syringe (Lovenox) loratadine 10 mg tablet (Claritin) 10 mg PO QDAY 03/06/25 Unknown History naltrexone 1.5 mg capsule 3 mg PO .once a day 03/06/25 Unknown History estradiol 2 mg tablet 2 mg PO TID 06/27/25 Unknown History levothyroxine 25 mcg tablet 25 mcg PO DAILY 06/27/25 Unknown History (Euthyrox) progesterone 50 mg/mL 50 mg IM DAILY 06/27/25 Unknown History intramuscular oil progesterone micronized 200 mg 200 mg PO QHS 06/27/25 Unknown History capsule (Prometrium) tacrolimus 1 mg capsule, 1 mg PO TID 06/27/25 Unknown History immediate-release (Prograf) Allergy/AdvReac Type Severity Reaction Status Date / Time Latex, Natural Rubber Allergy Intermediate Other Verified 06/29/25 09:44 azithromycin (From Zithromax) Allergy JOHN Verified 06/29/25 09:44 VIJI'S SYNDROME venlafaxine Allergy Other Verified 06/29/25 09:44 Family History Mother Diabetes Uncle Diabetes Grandmother Diabetes Surgical History [place] teeth extracted History of hysteroscopy Status post laparoscopy S/P D&C (status post dilation and curettage) Hx of lumpectomy History of tonsillectomy and adenoidectomy Social History adopted: No household members: spouse number of children: 1 current occupational status: employed current occupation: [employer] current occupational exposures/hazards: No pets and animals: Yes (Avoid litterbox) pets and animals: cat(s) and dog(s) history of recent travel: Yes ([facility]) out of state: Yes out of country: No sexually active: Yes Smoking Status: Never smoker Electronic Cigarette Use: with nicotine alcohol intake: never substance use type: does not use well-balanced diet: daily or most days caffeine: No eating out: 1-3 times/week during the past year weight has: increased > 10 lbs what type of physical activity do you participate in: none jessica/gnosticist: Zoroastrian seatbelt use: always do you feel safe at home: Yes additional social history: - Rene- [place] Review of Systems (Anesthesia) ROS Narrative System reviewed and no additional complaints, except as documented.
[2025-06-29] MEDS: Lactated Ringers 1,000 ML 1000 ML IV (16:01)
[2025-06-29] MEDS: Lidocaine 1% (5 ml sdv) 5 ML Vial IV (16:07)
[2025-06-29] MEDS: Midazolam 2 MG/2 ML Syringe IV (16:07)
--- NOTE | 2025-06-29 16:15 | FAL_PTH ---
PATIENT: JOSE EDWARD LOC: [facility] – [place] U#:[id number] AGE/SX: 29/F ROOM: RE06/29/[address]: Dr. Julianna Newman DO : 1995 BED: DIS: 06/29/2025 SPEC #: [id number] RECD: 06/30/25 08:22 STATUS: FRANCA LINDA #: [id number] STEPHEN: 06/29/25 16:[address]: Julianna Newman DEPT: SURGICAL PATHOLOGY RECD BY: Deisi Lara ENTERED: 06/30/25 08:39 SP TYPE: ECTOPIC OTHR DR: CHERYL Samano Tissues: A - ECTOPIC PREG B - ECTOPIC PREG Procedures: Surgery Specimen Level IV HEADER OPERATION: Laparoscopic removal ectopic PRE-OP DIAGNOSIS: Ectopic TISSUE SUBMITTED: A. Left Fallopian tube, B. Right Fallopian tube MICROSCOPIC DIAGNOSIS A. ?Left fallopian tube, salpingectomy: - No specific pathologic change. - Negative for products of conception. B. ?Right fallopian tube, salpingectomy: - No specific pathologic change. - Negative for products of conception. COMMENT Dr Newman was informed on the findings 07/09/25. MICROSCOPIC DESCRIPTION Slides are reviewed. GROSS DESCRIPTION A. Container is designated left fallopian tube and consists of a 6.1 cm in length and 0.6 cm in average diameter fimbriated fallopian tube. The serosal surfaces are purple-cloud and smooth. Sectioning through the specimen reveals a pinpoint lumen. No distinct lesions or hemorrhagic areas are identified. The specimen is entirely submitted. TE 4 Summary of cassettes:A1, fimbriated end, entirely submitted; A2-A4, remainder of tube B. Container is designated right fallopian tube and consists of a 6.7 cm in length and 0.8 cm in average diameter fimbriated fallopian tube. The serosal surfaces are purple-cloud and smooth. Sectioning through the specimen reveals a pinpoint lumen. No distinct disruption or areas of hemorrhage are identified. The specimen is entirely submitted. TE 4 Summary of cassettes:B1, fimbriated end, entirely submitted; B2-B4, remainder of tube [facility] 06/30/2025 CPT: 04878b6
--- NOTE | 2025-06-29 16:16 | PCM.DC ---
Discharge Instructions DC O2, CPAP, BIPAP needs Home O2 Discharge instructions: No Dressing / Incision Discharge Activity: Return to Normal Activity, May Not Drive (for two weeks or while taking narcotic pain medications.), May Shower and May Take a Tub Bath (in 7 days) May resume sexual activity in: 1 week Weight Bearing Status: Full weight bearing Dressing / Incision Call your doctor if you observe: Using more than 1 pad per hour, Shortness of breath, Chest pain and Uncontrolled pain Suture Line Care: Avoid Pulling/Pushing and Avoid Pinching/Bending Remove Dressing in: 1 week (if present) Cleanse incision/area with: Soap & Water and Keep Dressing Clean & Dry Follow Up Care Please Follow Up With: Julianna Newman DO When: Call to make an appointment with your doctor for a follow up incision check in 1-2 weeks. Test Results: Test results from this visit will be discussed in further detail at your follow-up appointment, if applicable. Discharge Plan Admission Primary Reason for Your Visit: laparoscopic bilateral salpingectomy, removal of ectopic Attending Provider: Julianna Newman Primary Care Provider: Anna Zepeda Instructions Print Language: Upper Sorbian Discharge Orders/Prescriptions Prescriptions: New ibuprofen 800 mg tablet 800 mg PO Q8H PRN (Reason: pain) Qty: 30 0RF oxycodone-acetaminophen [Percocet] 5-325 mg tablet 1 tab PO Q4H PRN (Reason: pain) 7 Days Qty: 10 0RF Continued omeprazole 20 mg tablet,delayed release (DR/EC) 40 mg PO DAILY loratadine [Claritin] 10 mg tablet 10 mg PO QDAY enoxaparin [Lovenox] 30 mg/0.3 mL syringe 30 mg subcut Q24H cholecalciferol (vitamin D3) [D3-2000] 50 mcg (2,000 unit) capsule 2,000 unit PO DAILY metformin 750 mg tablet extended release 24 hr 750 mg PO DAILY levothyroxine [Euthyrox] 25 mcg tablet 25 mcg PO DAILY PNV-DHA 27 mg iron-1 mg -300 mg capsule 1 cap PO DAILY Qty: 90 3RF Held naltrexone 1.5 mg capsule 3 mg PO .once a day Hold Instructions: ask [facility] when/if to resume prednisone 10 mg tablet 10 mg PO BID Hold Instructions: ask [facility] when/if to resume tacrolimus [Prograf] 1 mg capsule 1 mg PO TID Hold Instructions: ask [facility] when/if to resume estradiol 2 mg tablet 2 mg PO TID Hold Instructions: ask [facility] when/if to resume progesterone micronized [Prometrium] 200 mg capsule 200 mg PO QHS Hold Instructions: ask [facility] when/if to resume progesterone 50 mg/mL oil 50 mg IM DAILY Hold Instructions: ask [facility] when/if to resume Patient Comments: every night at 2000 Referrals / Follow Up: Anna Zepeda PA [Primary Care Provider, Family Practice] Disposition Disposition (needs filled in before D/C Order can be placed): Home, Self Care
[2025-06-29] MEDS: fentaNYL 100 MCG/2 ML Ampul 200 MCG IV (16:47)
--- NOTE | 2025-06-29 16:47 | OP.PCM_ITS ---
Multi Select Codes Urinary/Genital Urinary/Genital CPT Codes: 81910 Treat ectopic lapro w/ salpingectomy Operative Report (Standard) Operative Information Date of Procedure: 06/29/25 Pre-Operative Diagnosis: left ectopic , desires bilateral salpingectomy, declines methotrexate Post-Operative Diagnosis: left ectopic , desires bilateral salpingectomy, declines methotrexate. Surgery/Procedure Performed: laparoscopic bilateral salpingectomy, removal of ectopic flatwork catcher: Yes Counter Caser: Krysta White Tasks completed by retail loan originator assistant: Closing and Trocar Additional [employer] assistant manager?: No Type of Anesthesia: General RN Documented Start/Stop Times: Operation Date: 06/29/25 16:15 <No data on this case meets the specified criteria> Procedure Start Time: 14:26 Procedure Stop Time: 14:46 Select all DRAINS/GRAFTS/IMPLANTS that apply: None Estimated Blood Loss: 5cc Specimen collected: Yes Description of specimen(s) removed: right fallopian tube Description of surgery: The patient was taken in the operating room and was placed under general anesthesia was prepped and draped in normal sterile fashion in the dorsal lithotomy position. Bladder was drained of clear urine and SCDs were on preoperatively. A sponge stick was placed in the vagina. Attention was then turned to the abdominal portion of the procedure and the umbilicus was elevated with towel clamps and injected with Marcaine and after a 5 mm incision was made and a 5 mm trocar was inserted into the abdomen under direct visualization. The abdomen was insufflated with CO2 gas and a 5 mm optical trocar was placed under direct visualization. A left lower quadrant 5 mm port and a 5 mm port suprapubically were placed under direct visualization. Uterus was well visualized and upon inspection of the pelvis and ectopic was seen in the left fallopian tube which was un- ruptured. The left ovary was adherent to the anterior abdominal wall. A Using a LigaSure device the adhesion was removed. Next, the left mesosalpinx was transected and the fallopian tube remov ed including the ectopic and removed through the umbilical port site. The same procedure was performed on the right side, removing the fallopian tube. Another adhesion was noted of the omentum to the anterior abdominal wall on the upper left side of the abdomen. This was also removed. Excellent hemostasis was noted. Liver and upper abdomen were visualized notably within normal limits and no other gross abnormalities were seen in the abdomen. All instruments removed from the abdomen after gas was desufflated. Port sites were closed with 3-0 Monocryl Steri's and op sites were applied. All instruments removed from the vagina and patient was awoken and taken recovery in stable condition. Surgical Findings: unruptured left ectopic . Complications Complications: No Admit VTE Documentation VTE Present on Admission: No VTE Mechan Device Prophylaxis: SCD's VTE Pharm Prophylaxis ordered?: No
--- NOTE | 2025-06-29 17:05 | PCM.POST.ANE ---
Anesthesia: Postop Eval I Current Vital Signs Temperature: 97.6 F Pulse Rate: 89 Blood Pressure: 133/91 Respiratory Rate: 16 Pulse Ox: 99 Oxygen Delivery Method: Room Air Assessment Airway patent: Yes Spontaneous unlabored respirations: Yes Mental status: Awake and Calm nausea: No Vomiting: No Anesthesia Complication: No Fluid Hydration Crystalloid volume administer (ml): 1,000 Total IV fluid infused: 1,000 Progress Note Anesthesia document: Postop Eval 1 completed: Yes
--- NOTE | 2025-06-29 17:15 | PCM.POSTANE2 ---
Anesthesia Postop Eval I Sum Postop Eval Completion status Anesthesia document: Postop Eval 1 completed: Yes Anesthesia Postop Eval I Summary Anesthesia Postop Eval I Summary: Anesthesia Postop Eval I: Assessment Summary Airway patent Yes 06/29/25 17:06 Spontaneous unlabored Yes 06/29/25 17:06 respirations Mental status Awake,Calm 06/29/25 17:06 nausea No 06/29/25 17:06 Vomiting No 06/29/25 17:06 Anesthesia Postop Eval I: Fluid Summary Crystalloid volume administer 1,000 06/29/25 17:06 (ml) Colloids volume administered ( ml) Blood Product volume administered (ml) Total IV fluid infused 1,000 06/29/25 17:06 Anesthesia Postop Eval I: Summary Notes Anesthesia Complication No 06/29/25 17:06 Anesthesia Complication Comment: Post-operative progress note Anesthesia: Postop Eval II Evaluation Mental status: Awake and Calm Pain Level: 1 nausea: No Vomiting: No Progress Note Post-operative progress note: Comfortable in PACU. Denies any complaints. Speaking full sentences. Breathing spontaneously and denies any pain. Alert and oriented x 3 Complications Anesthesia Complication: No
[2025-06-29] MEDS: HYDROcodone Bitartrate/Apap 5/325 Tablet PO (17:23)
[2025-06-30 07:31] LABS: Differential Indicated MANUAL DIFF
[2025-06-30 07:36] LABS: Neutrophil-Segmented 58 % (47-70); Total Cells Counted 100 (MANUAL DIFF)
[2025-06-30 07:38] LABS: Scan Smear per Review Criteria MANUAL DIFF; White Blood Count 19.6 K/mm3 (4.4-11.0)
== END 2025-06-29 17:54 | disposition home or self-care (01) ==
LOC: ED 13:26 → SDC 14:43 → ACINP 14:43
PROVIDERS: Emergency Provider Emergency Medicine; Visit Provider Obstetrics & Gynecology
PROC: 10T24ZZ Resection of Products of Conception, Ectopic, Percutaneous Endoscopic Approach (ICD-10-PCS; CPT 59150; principal; 2025-06-29 16:00)
DX: O00.102 Left tubal pregnancy without intrauterine pregnancy (principal); E28.2 Polycystic ovarian syndrome; O09.01 Supervision of pregnancy with history of infertility, first trimester; O09.811 Supervision of pregnancy resulting from assisted reproductive technology, first trimester; Z79.890 Hormone replacement therapy; O99.281 Endocrine, nutritional and metabolic diseases complicating pregnancy, first trimester; Z79.899 Other long term (current) drug therapy
CPT/HCPCS: 59151; 00840; 76817; 80053; 81001; 84702; 85025; 86900; 86901; 87086; 88305; 99284; A4216; J2405; J9260